=== PATIENT | female | born 1995 | race Caucasian/White ===

== ENCOUNTER 2023-05-15 20:58 | Outpatient (REF) | payer OTHER, SELFPAY ==
[2023-05-20 11:13] LABS: Age Gdln ACOG Testing Note (.); IGP, rfx Aptima HPV ASCU Note (.)
== END 2023-05-15 20:59 | disposition home or self-care (01) ==
LOC: LAB 20:58
PROVIDERS: Visit Provider Obstetrics & Gynecology
DX: Z01.419 Encounter for gynecological examination (general) (routine) without abnormal findings (principal)
CPT/HCPCS: G0145

== ENCOUNTER 2023-05-30 09:55 | Outpatient (OUT) | payer OTHER, SELFPAY ==
--- NOTE | 2023-05-30 | US_ITS ---
[address] [address] Patient Name: RIRI DEMPSEY MRN: [id number] date: 1995 Sex: F Assigned Patient Location: [facility] Current Patient Location: [facility] Accession/Order Number: [id number] Exam Date: 05/30/2023 10:05 Report Date: 05/30/2023 11:55 At the request of: YANI CALIX Procedure: US OB transvaginal EXAMINATION: US OB transvaginal HISTORY: MISSED MENSES. VIABILITY DATING COMPARISON: No relevant comparison available. FINDINGS: Twin intrauterine gestation. Dichorionic diamniotic favored The uterus is normal The right ovary is not visualized The left ovary measures 3.8 x 3.5 x 1.8 cm. The cervix is closed measuring 3.6 cm. Clinical age: 7 weeks 6 days Clinical JOSI: 01/10/2024 Fetus A: Gestational sac: 2.21 cm, 6 weeks 6 days CRL: 1.03 cm, 7 weeks 1 day Yolk sac: 2.4 mm Heart rate: 144 bpm Ultrasound age: 7 weeks 1 day Ultrasound JOSI: 01/15/2024 Fetus B: CRL: 1. 1 5, 7 weeks 2 days Yolk sac: 1.5 mm Heart rate: 151 bpm Ultrasound age: 7 weeks 6 day Ultrasound JOSI: 01/14/2024 US/US OB transvaginal IMPRESSION: Twin intrauterine gestation as detailed above Electronically authenticated by: ZAYRA ORTIZ Date: 05/30/2023 11:55
--- OUTSIDE RECORDS SUMMARY | 2023-05-30 10:00 | XMS_ITS | CCD ---
Author Name Unknown Address [address] [place] [address] Organization [facility] Care Team Providers Care Insurance Checker Name Role Phone GAYE JOSUE Unavailable Unavailable GAYE JOSUE Unavailable Unavailable Unavailable Unavailable Unavailable HoneyAicha fabian Maryjo Unavailable Unavailable Honey [place] Maryjo Unavailable Unavailable Unavailable Primary Care Provider UnavailJuanito Rodriges Primary Care Provider JAMES HERNANDEZJETH RATCONRADARAJAIAChristin Attending U navailable SRINGERI, VIJETH RATHNARAJAIAH Primary Care U navailable Sringeri, Vijeth Rathnarajaiah Primary Care Prov ider Radha Carney Unavailable Perla Rm Primary Care Provider [phone] SRINGDARNELL, VIJETH RATHNARAJAIAH Primary Care U navailable MANSI DE JESUSI LEIGH Referring Unavailable MANSI DE JESUSI LEIGH Admitting Unavailable SRINGERI, VIJETH RATHNARAJAIAH Primary Care U navailable LIZA, OLIVER LEIGH Admitting Unavailable SRINGERI, VIJETH RATHNARAJAIAH Primary Care U navailable LIZA, OLIVER LEIGH Referring Unavailable SRINGERI, VIJETH RATHNARAJAIAH Primary Care U navailable BEA JACOBS Referring Unavailable PERLA RM Primary Care Unavailable ZEINAB MIRAMONTES Attending Unavailable ZEINAB MIRAMONTES Admitting Unavailable Unavailable Primary Care Provider UnavailGaye Carrasquillo APRN, CNP Primary Care Provider RENE BEGUM Attending Unavail able DELANY, GAYE M Primary Care Unavailable DELANY, GAYE Primary Care Unavailable STEFANIA, MARY HUSSEIN Attending U navailable STEFANIA, MARY HUSSEIN Admitting U navailable DELANY, GAYE M Primary Care Unavailable DANA RIVER JR. Attending Unav ailable DELANY, GAYE M Primary Care Unavailable DELANY, GAYE Primary Care Unavailable PERNELL SCRUGGS Attending UnavailDAVID Noyola Referring Unavailable LAUREENANY, GAYE Primary Care Unavailable Delany ZOOGLER - DIRECTOR OF TEACHER EDUCATION, Gaye Primary Care Provider Delany ZOOGLER - DIRECTOR OF TEACHER EDUCATION, Gaye Primary Care Provider MISC, DR AKINS Primary Care Unavailable YOGI, DR LOMELI Admitting Unavailable YOGI, DR LOMELI Attending Unavailable KARASIK, DR ACHARYA Consulting Unavailable KARASIK, DR ACHARYA Admitting Unavailable KARASIK, DR ACHARYA Attending Unavailable MISC, DR AKINS Primary Care Unavailable YOGI, DR LOMELI Consulting Unavailable ZIEBER, DR MARY Woodall Consulting Unavailable KARASIK, DR ACHARYA Consulting Unavailable KARASIK, DR ACHARYA Admitting Unavailable KARASIK, DR ACHARYA Attending Unavailable MISC, DR AKINS Primary Care Unavailable YOGI, DR LOMELI Consulting Unavailable ZIEBER, DR MARY Woodall Consulting Unavailable MISC, DR AKINS Primary Care Unavailable YOGI, DR LOMELI Admitting Unavailable YOGI, DR LOMELI Attending Unavailable YOGI, DR LOMELI Attending Unavailable YOGI, DR LOMELI Admitting Unavailable MISC, DR AKINS Primary Care Unavailable KARASIK, DR ACHARYA Attending Unavailable KARASIK, DR ACHARYA Consulting Unavailable KARASIK, DR ACHARYA Admitting Unavailable MISC, DR AKINS Primary Care Unavailable YOGI, DR LOMELI Consulting Unavailable ZIEBER, DR MARY Woodall Consulting Unavailable MISC, DR AKINS Primary Care Unavailable YOGI, DR LOMELI Admitting Unavailable YOGI, DR LOMELI Attending Unavailable YOGI, DR LOMELI Attending Unavailable YOGI, DR LOMELI Consulting Unavailable MISC, DR AKINS Primary Care Unavailable YOGI, DR LOMELI Admitting Unavailable KARASIK, DR ACHARYA Consulting Unavailable KARASIK, DR ACHARYA Admitting Unavailable KARASIK, DR ACHARYA Attending Unavailable MISC, DR AKINS Primary Care Unavailable KARASIK, DR ACHARYA Consulting Unavailable KARASIK, DR ACHARYA Admitting Unavailable KARASIK, DR ACHARYA Attending Unavailable MISC, DR AKINS Primary Care Unavailable YOGI, DR LOMELI Attending Unavailable MISC, DR AKINS Primary Care Unavailable CHARISMA, TEJAS Consulting Unavailable YOGI, DR LOMELI Admitting Unavailable YOGI, DR LOMELI Admitting Unavailable WEST, DR ZAYRA Monique Consulting Unavailable YOGI, DR LOMELI Attending Unavailable MISC, DR AKINS Primary Care Unavailable YOGI, DR LOMELI Consulting Unavailable YOGI, DR LOMELI Attending Unavailable KARASIK, DR ACHARYA Consulting Unavailable MISC, DR AKINS Primary Care Unavailable YOGI, DR LOMELI Admitting Unavailable KARASIK, DR ACHARYA Consulting Unavailable KARASIK, DR ACHARYA Admitting Unavailable KARASIK, DR ACHARYA Attending Unavailable MISC, DR AKINS Primary Care Unavailable WEST, DR ZAYRA Monique Consulting Unavailable YOGI, DR LOMELI Consulting Unavailable YOGI, DR LOMELI Consulting Unavailable YOGI, DR LOMELI Attending Unavailable YOGI, DR LOMELI Admitting Unavailable MISC, DR AKINS Primary Care Unavailable YOGI, DR LOMELI Attending Unavailable YOGI, DR LOMELI Consulting Unavailable MISC, DR AKINS Primary Care Unavailable YOGI, DR LOMELI Admitting Unavailable MISC, DR AKINS Primary Care Unavailable YOGI, DR LOMELI Admitting Unavailable YOGI, DR LOMELI Attending Unavailable MISC, DR AKINS Primary Care Unavailable YOGI, DR LOMELI Admitting Unavailable YOGI, DR LOMELI Attending Unavailable YOGI, DR LOMELI Admitting Unavailable YOGI, DR LOMELI Attending Unavailable MISC, DR AKINS Primary Care Unavailable YOGI, DR LOMELI Admitting Unavailable YOGI, DR LOMELI Attending Unavailable YOGI, DR LOMELI Consulting Unavailable MISC, DR AKINS Primary Care Unavailable YOGI, DR LOMELI Procedure Practitioner Unavailab le YOGI, DR LOMELI Consulting Unavailable YOGI, DR LOMELI Attending Unavailable YOGI, DR LOMELI Admitting Unavailable MISC, DR AKINS Primary Care Unavailable KARASIK, DR ACHARYA Consulting Unavailable KARASIK, DR ACHARYA Admitting Unavailable KARASIK, DR ACHARYA Attending Unavailable MISC, DR AKINS Primary Care Unavailable YOGI, DR LOMELI Attending Unavailable WEST, DR ZAYRA Monique Consulting Unavailable MISC, DR AKINS Primary Care Unavailable YOGI, DR LOMELI Admitting Unavailable DR YANI CALIX Consulting Unavailable Liat ZOOGLER - DIRECTOR OF TEACHER EDUCATION, Gaye Primary Care Provider GAYE JOSUE Primary Care Physician Graham Choe Attending Unavailable GAYE JOSUE Primary Care Unavailable Liat ZOOGLER - DIRECTOR OF TEACHER EDUCATION, Gaye Primary Care Provider GAYE JOSUE Primary Care Unavailable HOANG SANTOS Attending Unavailable MATTHEW TAFOYA Attending Unavailable GAYE JOSUE Primary Care Unavailable BEA JACOBS Attending Unavailable GAYE JOSUE Primary Care Unavailable BEA JACOBS Attending Unavailable GAYE JOSUE Primary Care Unavailable GAYE JOSUE Referring Unavailable GAYE JOSUE Primary Care Unavailable GAYE JOSUE Primary Care Unavailable LELE VELASQUEZ Attending Unavailable YANI CALIX Attending Unavailable Redd Velazquez Attending Unavailab Redd Higginbotham Admitting Unavailab le NO FAMILY, PHYSICIAN Primary Care Unavailable Allergies Allergy Classification Reported Allergen(s) Allergy Type Date of Onset Reaction(s) Facility (1 source) No Known Medication Allergies; Translations: [No Known Medication Allergies] Propensity to adverse reactions (disorder) [facility] Repository Medications Current Medications Medication Drug Class(es) Dates Sig (Normalized) Sig (Original) 200 actuat albuterol 0.09 mg/actuat metered dose inhaler (6 sources) beta2-Adrenergic Agonist Start: 06-15-2020 take 2 puff(s) by inhalation four times daily as needed for wheezing albuterol sulfate HFA (VENTOLIN HFA) 108 (90 Base) MCG/ACT inhaler Inhale 2 puffs into the lungs 4 times daily as needed for Wheezing 1 Inhaler 1 06/15/2020 Active Start: 10-22-2019 take 2 puff(s) by in halation four times daily as needed for wheezing, then take 2-4 puff(s) by inhalation every six hours as needed for wheezing albuterol sulfate HFA (VENTOLIN HFA) 108 (90 Base) MCG/ACT inhaler Inhale 2 puffs into the lungs 4 times daily as needed for Wheezing or Shortness of Breath Recommend 2-4 puffs every 6 hrs as needed with SPACER 1 Inhaler 1 10/22/2019 Active Start: 12-05-2018 End: 01-04-2020 take 4 mg by mouth every twelve hours albuterol (VOSPIRE ER) 4 MG 12 hr tablet Take 1 (one) tablet (4 mg total) by mouth every 12 (twelve) hours for 14 days . 14 tablet 0 12/05/2018 01/04/2020 Discontinued (Therapy completed) albuterol sulfate HFA 108 (90 Base) MCG/ACT inhaler 2 puff (1 source) Start: 10-22-2019 albuterol sulfate HFA 108 (90 Base) MCG/ACT inhaler 2 puff brexpiprazole 0.5 mg oral tablet (2 sources) Atypical Antipsychotic take 1 tablet by mouth once daily brexpiprazole (REXULTI) 0.5 MG TABS tablet Take 1 tablet by mouth daily 0 Active 24 hr buPROPion hydrochloride 150 mg extended release oral tablet (8 sources) Aminoketone take 1 tablet by mouth once daily in the morning buPROPion (WELLBUTRIN XL) 150 MG extended release tablet Take 1 tablet by mouth every morning 0 Active cephalexin 500 mg oral capsule (1 source) Cephalosporin Antibacterial Start: 12-23-2019 take 1 capsule by mouth three times daily cephALEXin (KEFLEX) 500 MG capsule Take 1 capsule by mouth 3 times daily 21 capsule 0 12/23/2019 Active cyclobenzaprine hydrochloride 10 mg oral tablet (2 sources) Muscle Relaxant Start: 03-13-2022 End: 03-23-2022 take 1 tablet by mouth three times daily as needed for muscle spasms cyclobenzaprine (FLEXERIL) 10 MG tablet Take 1 tablet by mouth 3 times daily as needed for Muscle spasms 15 tablet 0 03/13/2022 03/23/2022 Active diphenhydrAMINE hydrochloride 25 mg oral tablet (4 sources) Histamine-1 Receptor Antagonist End: 11-29-2021 take 1 tablet by mouth once daily as needed diphenhydrAMINE (BENADRYL) 25 MG tablet Take 1 tablet by mouth nightly as needed for Itching 0 Active escitalopram 20 mg oral tablet (2 sources) Serotonin Reuptake Inhibitor Start: 01-18-2020 take 1 tablet by mouth once daily escitalopram (LEXAPRO) 20 MG tablet Take 1 tablet by mouth daily 30 tablet 1 01/18/2020 Active Start: 01-04-2020 End: 01-03-2021 take 1 tablet by mouth once daily escitalopram oxalate (LEXAPRO) 10 MG tablet Indications: Anxious depression Take 1 (one) tablet (10 mg total) by mouth daily . 30 tablet 11 01/04/2020 01/03/2021 Active fluconazole 150 mg oral tablet (2 sources) Azole Antifungal Start: 12-19-2022 End: 12-19-2022 take 1 tablet by mouth once fluconazole (DIFLUCAN) 150 MG tablet Take 1 tablet by mouth once for 1 dose 1 tablet 0 12/19/2022 12/19/2022 Active Start: 12-19-2022 End: 12-19-2022 fluconazole (DIFLUCAN) table t 200 mg 60 actuat formoterol fumarate 0.005 mg/actuat / mometasone furoate 0.1 mg/actuat metered dose inhaler (1 source) Corticosteroid, beta2-Adrenergic Agonist Start: 01-18-2020 take 2 puff(s) by inhalation twice daily mometasone-formoterol (DULERA) 100-5 MCG/ACT inhaler Inhale 2 puffs into the lungs 2 times daily 1 Inhaler 0 01/18/2020 Active hydrOXYzine pamoate 25 mg oral capsule (1 source) Antihistamine take 1 capsule by mouth four times daily as needed hydrOXYzine (VISTARIL) 25 MG capsule Take 25 mg by mouth 4 times daily as needed for Itching 0 Active ibuprofen 600 mg oral tablet (3 sources) Nonsteroidal Anti-inflammatory Drug Start: 03-13-2022 take 1 tablet by mouth every six hours as needed for pain ibuprofen (IBU) 600 MG tablet Take 1 tablet by mouth every 6 hours as needed for Pain 120 tablet 0 03/13/2022 Active lamoTRIgine 50 mg oral tablet (3 sources) Mood Stabilizer, Anti-epileptic Agent take 50 mg by mouth once daily lamoTRIgine (LAMICTAL PO) Take 50 mg by mouth daily 0 Active 2 ml ondansetron 2 mg/ml injection (8 sources) Serotonin-3 Receptor Antagonist Start: 06-16-2022 End: 06-16-2022 ondansetron (ZOFRAN) injection 4 mg Start: 04-12-2022 take 1 tablet by mark th every eight hours as needed for nausea ondansetron (ZOFRAN) 4 MG tablet Take 1 tablet by mouth every 8 hours as needed for Nausea or Vomiting 12 tablet 0 04/12/2022 Active Start: 03-31-2022 End: 11-29-2021 take 1 tablet by mouth every eight hours as needed for nausea ondansetron (ZOFRAN) 4 MG tablet Take 4 mg by mouth every 8 hours as needed for Nausea or Vomiting 0 03/31/2022 11/29/2021 Discontinued (LIST CLEANUP) Start: 12-10-2020 End: 12-10-2020 ondansetron (ZOFRAN-ODT) disintegrating tablet 4 mg Start: 12-10-2020 End: 12-10-2020 ondansetron (ZOFRAN) injecti on 4 mg Start: 12-10-2020 End: 02-10-2021 take 1 tablet by mouth every four to six hours as needed for nausea ondansetron (ZOFRAN ODT) 4 MG disintegrating tablet Take 1 tablet by mouth every 4-6 hours as needed for Nausea or Vomiting 15 tablet 0 12/10/2020 02/10/2021 Discontinued (LIST CLEANUP) predniSONE 20 mg oral tablet (3 sources) Start: 03-13-2022 End: 03-17-2022 take 3 tablets by mouth once daily predniSONE (DELTASONE) 20 MG tablet Take 3 tablets by mouth daily for 4 days First home dose 03/14/2022 12 tablet 0 03/13/2022 03/17/2022 Active Start: 12-23-2019 End: 12-28-2019 take 2 tablets by mouth once daily predniSONE (DELTASONE) 20 MG tablet Take 2 tablets by mouth daily for 5 doses 10 tablet 0 12/23/2019 12/28/2019 Active Start: 10-22-2019 End: 10-27-2019 take 2 tablets by mouth once daily predniSONE (DELTASONE) 20 MG tablet Take 2 tablets by mouth daily for 5 days 10 tablet 0 10/22/2019 10/27/2019 Active propranolol hydrochloride 20 mg oral tablet (1 source) beta-Adrenergic Shai Start: 05-22-2020 take 1 tablet by mouth three times daily as needed propranolol (INDERAL) 20 MG tablet Take 1 tablet by mouth 3 times daily as needed (palpitations) 30 tablet 2 05/22/2020 Active sertraline 100 mg oral tablet (8 sources) Serotonin Reuptake Inhibitor take 2 tablets by mouth once daily sertraline (ZOLOFT) 100 MG tablet Take 2 tablets by mouth daily 0 Active take 1 tablet by mouth once oseas y sertraline (ZOLOFT) 100 MG tablet Take 100 mg by mouth daily 0 Active take 1 tablet by mouth once oseas y sertraline (ZOLOFT) 50 MG tablet Take 50 mg by mouth daily 0 Active 50 ml sodium chloride 9 mg/m l injection (3 sources) Start: 06-16-2022 End: 06-16-2022 0.9 % sodium chloride bolus Start: 04-12-2021 End: 04-12-2021 0.9 % sodium chloride bolus Start: 12-10-2020 End: 12-10-2020 0.9 % sodium chloride bolus sulfamethoxazole 800 mg / trimethoprim 160 mg oral tablet (1 source) Dihydrofolate Reductase Inhibitor Antibacterial, Sulfonamide Antimicrobial Start: 12-19-2022 End: 12-29-2022 take 1 tablet by mouth twice daily sulfamethoxazole-trimethoprim (BACTRIM DS) 800-160 MG per tablet Take 1 tablet by mouth 2 times daily for 10 days 20 tablet 0 12/19/2022 12/29/2022 Active 24 hr venlafaxine 150 mg extended release oral capsule (2 sources) Serotonin and Norepinephrine Reuptake Inhibitor Start: 08-08-2020 End: 12-10-2020 Effexor XR 150 mg Cap-ER Refills(s) 0 Start Date: 08/08/20 Status: Ordered Completed/Discontinued Medications Medication Drug Class(es) Dates Sig (Normalized) Sig (Original) acetaminophen 500 mg oral tablet (5 sources) Start: 12-19-2022 End: 12-19-2022 acetaminophen (TYLENOL) tablet 1,000 mg Start: 03-31-2021 take 1 tablet by mark th every six hours as needed for pain acetaminophen (TYLENOL) 500 MG tablet Take 500 mg by mouth every 6 hours as needed for Pain 0 03/31/2021 Active albuterol 0.833 mg/ml / ipratropium bromide 0.167 mg/ml inhalant solution (1 source) Anticholinergic, beta2-Adrenergic Agonist Start: 04-06-2019 End: 04-06-2019 ipratropium-albuterol (DUONEB) nebulizer solution 1 ampule Start: 04-06-2019 End: 04-06-2019 ipratropium-albuterol (DUONE B) nebulizer solution 1 ampule ARIPiprazole 10 mg oral tablet (1 source) Atypical Antipsychotic End: 08-01-2020 take 1 tablet by mouth once daily ARIPiprazole (ABILIFY) 10 MG tablet Take 10 mg by mouth daily 0 08/01/2020 Discontinued (LIST CLEANUP) clonazePAM 0.5 mg oral tablet (10 sources) Benzodiazepine Start: 06-16-2020 End: 08-01-2020 take 0.5 tablet by mouth once daily as needed for anxiety clonazePAM (KLONOPIN) 0.5 MG tablet Indications: Anxiety Take 0.5 tablets by mouth daily as needed for Anxiety for up to 10 days. 5 tablet 0 06/16/2020 08/01/2020 Discontinued (LIST CLEANUP) Start: 01-18-2020 End: 02-01-2020 take 1 tablet by mouth once daily clonazePAM (KLONOPIN) 0.5 MG tablet Indications: Acute anxiety Take 1 tablet by mouth daily for 14 days. 14 tablet 0 01/18/2020 02/01/2020 Active take 1 tablet by mark twice daily as needed clonazePAM (KLONOPIN) 1 MG tablet Take 1 tablet by mouth 2 times daily as needed. 0 Active take 2 tablets by mo [facility] twice daily as needed clonazePAM (KLONOPIN) 1 MG tablet Take 2 mg by mouth 2 times daily as needed. 0 Active 1 ml dexamethasone phosphate 10 mg/ml injection (1 source) Corticosteroid Start: 03-13-2022 End: 03-13-2022 dexamethasone (PF) (DECADRON) injection 10 mg Start: 03-13-2022 End: 03-13-2022 dexamethasone (PF) (DECADRON ) injection 10 mg DULoxetine 60 mg delayed release oral capsule (1 source) Serotonin and Norepinephrine Reuptake Inhibitor Start: 06-30-2018 End: 01-04-2020 take 3 capsules by mouth once daily DULoxetine (CYMBALTA) 60 MG capsule Take by mouth daily . 3 06/30/2018 01/04/2020 Discontinued (Ineffective) 1 ml ketorolac tromethamine 30 mg/ml cartridge (3 sources) Nonsteroidal Anti-inflammatory Drug, Cyclooxygenase Inhibitor Start: 12-19-2022 End: 12-19-2022 ketorolac (TORADOL) injection 30 mg Start: 06-16-2022 End: 06-16-2022 ketorolac (TORADOL) injectio n 30 mg Start: 03-13-2022 End: 03-13-2022 ketorolac (TORADOL) injectio n 60 mg methylPREDNISolone 125 mg injection (1 source) Corticosteroid Start: 04-06-2019 End: 04-06-2019 methylPREDNISolone sodium (SOLU-MEDROL) injection 125 mg Start: 04-06-2019 End: 04-06-2019 methylPREDNISolone sodium (S HUSEYIN-MEDROL) injection 125 mg mirtazapine 45 mg oral tablet (2 sources) End: 04-12-2021 take 1 tablet by mouth once daily mirtazapine (REMERON) 45 MG tablet Take 45 mg by mouth nightly 0 04/12/2021 Discontinued (LIST CLEANUP) omeprazole 20 mg delayed release oral capsule (3 sources) Proton Pump Inhibitor End: 04-12-2021 take 1 capsule by mouth once daily omeprazole (PRILOSEC) 20 MG delayed release capsule Take 20 mg by mouth daily 0 04/12/2021 Discontinued (LIST CLEANUP) Vit-Fe Fumarate-FA ( VITAMINS PO) (1 source) End: 11-29-2021 take 1 tablet by mouth once daily Vit-Fe Fumarate-FA ( VITAMINS PO) Take 1 tablet by mouth daily 0 11/29/2021 Discontinued (LIST CLEANUP) Pseudoephedrine-APA P-DM (DAYQUIL PO) (2 sources) End: 10-22-2019 take 1 tablet by mouth every four hours as needed Pseudoephedrine-APA P-DM (DAYQUIL PO) Take 1 tablet by mouth every 4 hours as needed 0 10/22/2019 Discontinued (Therapy completed) take 1 tablet by mark th every four hours as needed [id number] (DAYQUIL PO) Don e 1 tablet by mouth every 4 hours as needed 0 Active QUEtiapine 100 mg oral tablet (3 sources) Atypical Antipsychotic Start: 09-13-2020 End: 12-10-2020 take 1 tablet by mouth once daily QUEtiapine (SEROQUEL) 100 MG tablet TAKE 1 TABLET BY MOUTH EVERY DAY 0 09/13/2020 12/10/2020 Discontinued (Therapy completed) Start: 08-01-2020 QUEtiapine (SE ROQUEL) tablet 12.5 mg QUEtiapine (SERO QUEL XR) 50 MG extended release tablet Take 25 mg by mouth nightly 0 Active risperiDONE 0.25 mg oral tablet (1 source) Atypical Antipsychotic Start: 06-30-2018 End: 01-04-2020 take 1 tablet by mouth once daily risperiDONE (RISPERDAL) 0.25 MG tablet Take 0.25 mg by mouth nightly . 2 06/30/2018 01/04/2020 Discontinued (Ineffective) traZODone hydrochloride 50 mg oral tablet (5 sources) Serotonin Reuptake Inhibitor Start: 08-07-2020 End: 02-10-2021 take 1 tablet by mouth once daily as needed for sleep traZODone (DESYREL) 50 MG tablet Take 1 tablet by mouth nightly as needed for Sleep 30 tablet 0 08/07/2020 02/10/2021 Discontinued (LIST CLEANUP) Start: 06-15-2020 End: 08-01-2020 take 0.5 tablet by mouth once daily traZODone (DESYREL) 50 MG tablet Take 0.5 tablets by mouth nightly 15 tablet 1 06/15/2020 08/01/2020 Discontinued (LIST CLEANUP) Start: 01-04-2020 traZODone (DEVANG YREL) 50 MG tablet Take 25 mg by mouth nightly 0 01/04/2020 Active Start: 01-04-2020 End: 04-03-2020 take 1 tablet by mouth once daily as needed for sleep traZODone (DESYREL) 50 MG tablet Indications: Anxious depression Take 1 (one) tablet (50 mg total) by mouth nightly as needed for sleep . 30 tablet 2 01/04/2020 04/03/2020 Active Problems Active Problems Problem Classification Problem Date Documented Date Episodic/Chronic Abdominal pain (2 sources) Pelvic and perineal pain; Translations: [Pelvic and perineal pain] Onset: 01-20-2017 Acute bronchitis (1 source) Acute bronchitis; Translations: [Acute bronchitis, unspecified organism] Episodic Adjustment disorders (1 source) Stress and adjustment reaction; Translations: [Reaction to severe stress, unspecified] Onset: 12-06-2022 Chronic Anxiety disorders (20 sources) Mixed anxiety and depressive disorder; Translations: [Anxiety] Onset: 01-04-2020 01-04-2020 Chronic Cardiac dysrhythmias (1 source) Palpitations; Translations: [Palpitations] Episodic Chronic obstructive pulmonary disease and bronchiectasis (2 sources) Bronchitis; Translations: [Bronchitis] Episodic Disorders of lipid metabolism (2 sources) Hyperlipidemia, unspecified; Translations: [Hyperlipidemia, unspecified] Onset: 02-13-2023 Chronic Essential hypertension (2 sources) Essential (primary) hypertension; Translations: [Essential (primary) hypertension] Onset: 02-13-2023 Chronic Fluid and electrolyte disorders (1 source) Dehydration; Translations: [Dehydration] Episodic Headache; including migraine (1 source) Headache; Translations: [Intractable headache, unspecified chronicity pattern, unspecified headache type] Episodic Headache; including migraine (1 source) Headache; including migraine; Translations: [Headache, unspecified] Onset: 06-16-2022 Hemorrhage during ; abruptio placenta; placenta previa (1 source) Threatened miscarriage in first trimester; Translations: [Threatened ] Episodic Inflammation; infection of eye (except that caused by tuberculosis or sexually transmitteddisease) (1 source) Hordeolum externum of lower eyelid of right eye; Translations: [Hordeolum externum right lower eyelid] Episodic Malaise and fatigue (2 sources) Fatigue; Translations: [Fatigue, unspecified type] Onset: 01-04-2020 01-04-2020 Episodic Mood disorders (20 sources) Depressive disorder; Translations: [Major depressive disorder, single episode, unspecified] Onset: 08-01-2020 08-01-2020 Chronic Mycoses (1 source) Candidiasis of vagina; Translations: [Vaginal yeast infection] Episodic Other complications of (1 source) Depressive disorder; Translations: [Other mental disorders complicating , first trimester] Episodic Other lower respiratory disease (1 source) Cough; Translations: [Cough in adult patient] Episodic Other nutritional; endocrine; and metabolic disorders (2 sources) Weight gain; Translations: [Weight gain] Onset: 01-04-2020 01-04-2020 Episodic Other nutritional; endocrine; and metabolic disorders (1 source) Other symptoms and signs concerning food and fluid intake; Translations: [Other symptoms concerning nutrition, metabolism, and development] Episodic Other upper respiratory infections (1 source) Acute sinusitis; Translations: [Acute sinusitis, recurrence not specified, unspecified location] Episodic Personality disorders (9 sources) Borderline personality disorder; Translations: [Borderline personality disorder] Onset: 08-02-2020 08-02-2020 Chronic Residual codes; unclassified (1 source) Tobacco user; Translations: [Tobacco abuse] Chronic Substance-related disorders (4 sources) Smoker; Translations: [Nicotine dependence, cigarettes, uncomplicated] Onset: 01-04-2020 01-04-2020 Chronic Comment on above: Added secondary to d ocumentation in Social History. Suicide and intentional self-inflicted injury (1 source) Suicidal thoughts; Translations: [Suicidal thoughts] Episodic Thyroid disorders (2 sources) Hypothyroidism, unspecified; Translations: [Hypothyroidism, unspecified] Onset: 02-13-2023 Chronic Unclassified (3 sources) Patient encounter status; Translations: [Encounter for laboratory testing for COVID-19 virus] Onset: 01-04-2020 01-04-2020 Unclassified (1 source) CONTACT W/AND (SUSP) EXPOS COVID-19; Translations: [CONTACT W/AND (SUSP) EXPOS COVID-19] Onset: 10-09-2021 Unclassified (1 source) Acute candidiasis of vulva and vagina; Translations: [Acute candidiasis of vulva and vagina] Onset: 12-19-2022 Viral infection (1 source) Disease caused by 2019-nCoV; Translations: [COVID-19] Episodic Past or Other Problems Problem Classification Problem Date Documented Da te Episodic/Chronic Abdominal pain (1 source) Unspecified abdominal pain; Translations: [UNSPECIFIED ABDOMINAL PAIN] Onset: 10-08-2021 Episodic Administrative/social admission (1 source) Person with feared health complaint in whom no diagnosis is made; Translations: [Person with feared health complaint in whom no diagnosis is made] Onset: 12-22-2022 Episodic Diabetes or abnormal glucose tolerance complicating ; childbirth; or the puerperium (15 sources) Gestational diabetes mellitus in childbirth, insulin controlled; Translations: [Gestational diabetes mellitus in , diet controlled] Onset: 09-08-2021 Episodic Genitourinary symptoms and ill-defined conditions (2 sources) Personal history of urinary (tract) infections; Translations: [PERS HX URINARY TRACT INFECTIONS] Onset: 10-09-2021 Episodic Immunizations and screening for infectious disease (5 sources) Contact with and (suspected) exposure to other viral communicable diseases; Translations: [Encounter for screening for infections with a predominantly sexual mode of transmission] Onset: 06-18-2021 Episodic Nausea and vomiting (3 sources) Nausea, vomiting and diarrhea; Translations: [Nausea with vomiting, unspecified] Onset: 06-16-2022 Episodic OB-related trauma to perineum and vulva (1 source) Second degree perineal laceration during delivery; Translations: [SECOND DEG PERINEAL LAC DUR DELIV] Onset: 10-09-2021 Episodic Other complications of ; puerperium affecting management of mother (1 source) Other mental disorders complicating childbirth; Translations: [OTH MENTAL D/O COMP CHILDBIRTH] Onset: 10-09-2021 Episodic Other complications of ; puerperium affecting management of mother (1 source) Streptococcus B carrier state complicating childbirth; Translations: [STREP B CHRISTINE STATE COMP CHILDBIRTH] Onset: 10-09-2021 Episodic Other complications of ; puerperium affecting management of mother (1 source) Smoking (tobacco) complicating childbirth; Translations: [SMOKING TOBACCO COMP CHILDBIRTH] Onset: 10-09-2021 Episodic Other complications of (1 source) Smoking (tobacco) complicating , third trimester; Translations: [SMOKING TOBACCO COMP PREG 3RD TRI] Onset: 10-08-2021 Episodic Other complications of (4 sources) Other specified related conditions, third trimester; Translations: [OTH SPEC PREG RELATED COND 3RD TRI] Onset: 10-01-2021 Episodic Other complications of (4 sources) Supervision of high risk , unspecified, unspecified trimester; Translations: [SUP HIGH RISK UNS UNS TRI] Onset: 07-17-2021 Episodic Other female genital disorders (1 source) Other specified noninflammatory disorders of vagina; Translations: [OTH SPEC NONINFLAMMATORY D/O VAGINA] Onset: 06-21-2021 Episodic Other gastrointestinal disorders (1 source) Diarrhea, unspecified; Translations: [Diarrhea, unspecified] Onset: 04-12-2022 Episodic Other infections; including parasitic (9 sources) Personal history of other infectious and parasitic diseases; Translations: [History of 2019 novel coronavirus disease (COVID-19)] Onset: 01-20-2020 01-20-2020 Episodic Other and delivery including normal (2 sources) Second trimester ; Translations: [Encounter for supervision of normal , unspecified, second trimester] Onset: 10-09-2021 Episodic Other screening for suspected conditions (not mental disorders or infectious disease) (6 sources) Encounter for screening for Streptococcus B; Translations: [Encounter for screening for diabetes mellitus] Onset: 07-18-2021 Episodic Residual codes; unclassified (1 source) 37 weeks gestation of ; Translations: [37 WEEKS GESTATION OF ] Onset: 10-09-2021 Episodic Residual codes; unclassified (1 source) 36 weeks gestation of ; Translations: [36 WEEKS GESTATION OF ] Onset: 10-08-2021 Episodic Residual codes; unclassified (1 source) 35 weeks gestation of ; Translations: [35 WEEKS GESTATION OF ] Onset: 09-27-2021 Episodic Residual codes; unclassified (1 source) 34 weeks gestation of ; Translations: [34 WEEKS GESTATION OF ] Onset: 09-19-2021 Episodic Residual codes; unclassified (1 source) 33 weeks gestation of ; Translations: [33 WEEKS GESTATION OF ] Onset: 09-12-2021 Episodic Residual codes; unclassified (1 source) 32 weeks gestation of ; Translations: [32 WEEKS GESTATION OF ] Onset: 09-03-2021 Episodic Residual codes; unclassified (1 source) 31 weeks gestation of ; Translations: [31 WEEKS GESTATION OF ] Onset: 08-28-2021 Episodic Spondylosis; intervertebral disc disorders; other back problems (3 sources) Acute low back pain; Translations: [Acute midline low back pain without sciatica] Onset: 12-22-2022 Episodic Urinary tract infections (2 sources) Acute cystitis; Translations: [Acute cystitis without hematuria] Onset: 12-19-2022 Episodic Results Test Name Value Interpretation Reference Range Facility CBC with Diffon 02-13-2023 Abs. Basophil 0.01 k/uL Normal 0.00-0.20 [facility] Comment on above: Performed By: #### L IPR, T4, GLYHGB, T3 #### [facility] [employer] [address] [place] [address] Business Programmer: Antoine Wilson MD #### CP, TSH, CDP, ZFAST #### [facility] [address] [place] [phone] Business Programmer: Zayra Chapman MD Abs.Imm.Granulocyte 0.02 k/uL Normal 0.00-0.30 [facility] Comment on above: Performed By: #### L IPR, T4, GLYHGB, T3 #### [address] [phone] Business Programmer: Antoine Wilson MD #### CP, TSH, CDP, ZFAST #### [facility] [address] [place] [phone] Business Programmer: Zayra Chapman MD Abs.Neutrophil (Seg) 4.27 k/uL Normal 2.5-7.0 [facility] Comment on above: Performed By: #### L IPR, T4, GLYHGB, T3 #### [address] [phone] Business Programmer: Antoine Wilson MD #### CP, TSH, CDP, ZFAST #### [facility] [address] [place] [address] Business Programmer: Zayra Chapman MD Basophils/100 WBC (Bld) 0 % Normal 0-2 M [facility] Comment on above: Performed By: #### L IPR, T4, GLYHGB, T3 #### [address] [phone] Business Programmer: Antoine Wilson MD #### CP, TSH, CDP, ZFAST #### [facility] [address] [place] [address] Business Programmer: Zayra Chapman MD Eosinophils (Bld) [#/Vol] 0.07 10*3/uL Normal 0.00-0.40 [facility] Comment on above: Performed By: #### L IPR, T4, GLYHGB, T3 #### [address] [phone] Business Programmer: Antoine Wilson MD #### CP, TSH, CDP, ZFAST #### [facility] [address] [place], [place] [phone] Business Programmer: Zayra Chapman MD Eosinophils/100 WBC (Bld) 1 % Normal 0-5 [facility] Comment on above: Performed By: #### L IPR, T4, GLYHGB, T3 #### [address] [phone] Business Programmer: Antoine Wilson MD #### CP, TSH, CDP, ZFAST #### [facility] [address] [place] [address] Business Programmer: Zayra Chapman MD Erythrocyte distribution width (RBC) [Ratio] 13.2 % Normal 12.1-15.2 [facility] Comment on above: Performed By: #### L IPR, T4, GLYHGB, T3 #### [place] [phone] Business Programmer: Antoine Wilson MD #### CP, TSH, CDP, ZFAST #### [facility] [address] [place] [phone] Business Programmer: Zayra Chapman MD Hematocrit (Bld) [Volume fraction] 41.9 % Normal 36.0-46.0 [facility] Comment on above: Performed By: #### L IPR, T4, GLYHGB, T3 #### [place] [phone] Business Programmer: Antoine Wilson MD #### CP, TSH, CDP, ZFAST #### [facility] [address] [place] [phone] Business Programmer: Zayra Chapman MD Hemoglobin (Bld) [Mass/Vol] 13.5 g/dL Normal 12.0-16.0 [facility] Comment on above: Performed By: #### L IPR, T4, GLYHGB, T3 #### [address] [place] [address] Business Programmer: Antoine Wilson MD #### CP, TSH, CDP, ZFAST #### [facility] [address] [place], [place] [phone] Business Programmer: Zayra Chapman MD Immature granulocytes/100 WBC (Bld) 0 % Normal 0-5 [facility] Comment on above: Performed By: #### L IPR, T4, GLYHGB, T3 #### [place] [address] [place] [address] Business Programmer: Antoine Wilson MD #### CP, TSH, CDP, ZFAST #### [facility] [address] [place], [place] [phone] Business Programmer: Zayra Chapman MD Lymphocytes (Bld) [#/Vol] 1.14 10*3/uL Normal 1.00-4.80 [facility] Comment on above: Performed By: #### L IPR, T4, GLYHGB, T3 #### [address] [address] Business Programmer: Antoine Wilson MD #### CP, TSH, CDP, ZFAST #### [facility] [address] [place], [place] [phone] Business Programmer: Zayra Chapman MD Lymphocytes/100 WBC (Bld) 20 % Normal 15-40 [facility] Comment on above: Performed By: #### L IPR, T4, GLYHGB, T3 #### [address] [phone] Business Programmer: Antoine Wilson MD #### CP, TSH, CDP, ZFAST #### [facility] [address] [place], [place] [phone] Business Programmer: Zayra Chapman MD MCH (RBC) [Entitic mass] 26.6 pg Normal 26.0-34.0 [facility] Comment on above: Performed By: #### L IPR, T4, GLYHGB, T3 #### [address] [address] Business Programmer: Antoine Wilson MD #### CP, TSH, CDP, ZFAST #### [facility] [address] [place] [phone] Business Programmer: Zayra Chapman MD MCHC (RBC) [Mass/Vol] 32.2 g/dL Normal 31.0-37.0 [facility] Comment on above: Performed By: #### L IPR, T4, GLYHGB, T3 #### [place] [address] Business Programmer: Antoine Wilson MD #### CP, TSH, CDP, ZFAST #### [facility] [address] [place] [address] Business Programmer: Zayra Chapman MD MCV (RBC) [Entitic vol] 82.6 fL Normal 80.0-100.0 M [facility] Comment on above: Performed By: #### L IPR, T4, GLYHGB, T3 #### [place] [address] Business Programmer: Antoine Wilson MD #### CP, TSH, CDP, ZFAST #### [facility] [address] [place] [address] Business Programmer: Zayra Chapman MD Monocytes (Bld) [#/Vol] 0.30 10*3/uL Normal 0.00-1.00 [facility] Comment on above: Performed By: #### L IPR, T4, GLYHGB, T3 #### [place] [address] Business Programmer: Antoine Wilson MD #### CP, TSH, CDP, ZFAST #### [facility] [address] [place], [place] [phone] Business Programmer: Zayra Chapman MD Monocytes/100 WBC (Bld) 5 % Normal 4-8 M [facility] Comment on above: Performed By: #### L IPR, T4, GLYHGB, T3 #### [address] [phone] Business Programmer: Antoine Wilson MD #### CP, TSH, CDP, ZFAST #### [facility] [address] [place], [place] [phone] Business Programmer: Zayra Chapman MD Neutrophil (Seg) 74 % Normal 47-75 [facility] Comment on above: Performed By: #### L IPR, T4, GLYHGB, T3 #### [address] [phone] Business Programmer: Antoine Wilson MD #### CP, TSH, CDP, ZFAST #### [facility] [address] [place], [place] [phone] Business Programmer: Zayra Chapman MD Platelet mean volume (Bld) [Entitic vol] 11.0 fL Normal 6.0-12.0 [facility] Comment on above: Performed By: #### L IPR, T4, GLYHGB, T3 #### [address] [phone] Business Programmer: Antoine Wilson MD #### CP, TSH, CDP, ZFAST #### [facility] [address] [place], [place] [phone] Business Programmer: Zayra Chapman MD Platelets (Bld) [#/Vol] 206 10*3/uL Normal 140-450 [facility] Comment on above: Performed By: #### L IPR, T4, GLYHGB, T3 #### [address] [phone] Business Programmer: Antoine Wilson MD #### CP, TSH, CDP, ZFAST #### [facility] [address] [place], [place] [phone] Business Programmer: Zayra Chapman MD RBC (Bld) [#/Vol] 5.07 10*6/uL Normal 4.00-5.20 [facility] Comment on above: Performed By: #### L IPR, T4, GLYHGB, T3 #### [address] [address] Business Programmer: Antoine Wilson MD #### CP, TSH, CDP, ZFAST #### [facility] [address] [place], [place] [phone] Business Programmer: Zayra Chapman MD WBC (Bld) [#/Vol] 5.8 10*3/uL Normal 3.5-11.0 [facility] Comment on above: Performed By: #### L IPR, T4, GLYHGB, T3 #### [address] [address] Business Programmer: Antoine Wilson MD #### CP, TSH, CDP, ZFAST #### [facility] [address] [place], [place] [phone] Business Programmer: Zayra Chapman MD Comp Metabolic Profon 2022 Albumin [Mass/Vol] 4.3 g/dL Normal 3.5-5.2 [facility] Comment on above: Performed By: #### L IPR, T4, GLYHGB, T3 #### [address] [address] Business Programmer: Antoine Wilson MD #### CP, TSH, CDP, ZFAST #### [facility] [address] [place], [place] [phone] Business Programmer: Zayra Chapman MD Alkaline Phos 127 U/L High 35-104 [facility] Comment on above: Performed By: #### L IPR, T4, GLYHGB, T3 #### [facility] [address] [place] [address] Business Programmer: Antoine Wilson MD #### CP, TSH, CDP, ZFAST #### [facility] [address] [place] [address] Business Programmer: Zayra Chapman MD ALT [Catalytic activity/Vol] 51 U/L High 5-33 [facility] Comment on above: Performed By: #### L IPR, T4, GLYHGB, T3 #### [address] [address] Business Programmer: Antoine Wilson MD #### CP, TSH, CDP, ZFAST #### [facility] [address] [place], [place] [phone] Business Programmer: Zayra Chapman MD Anion gap [Moles/Vol] 12 mmol/L Normal 9-17 [facility] Comment on above: Performed By: #### L IPR, T4, GLYHGB, T3 #### [address] [address] Business Programmer: Antoine Wilson MD #### CP, TSH, CDP, ZFAST #### [facility] [address] [place], [place] [phone] Business Programmer: Zayra Chapman MD AST [Catalytic activity/Vol] 31 U/L Normal <32 [facility] Comment on above: Performed By: #### L IPR, T4, GLYHGB, T3 #### [address] [address] Business Programmer: Antoine Wilson MD #### CP, TSH, CDP, ZFAST #### [facility] [address] [place], [place] [phone] Business Programmer: Zayra Chapman MD Bilirubin [Mass/Vol] 0.3 mg/dL Normal 0.3-1.2 [facility] Comment on above: Performed By: #### L IPR, T4, GLYHGB, T3 #### [place] [address] [place], [place] [phone] Business Programmer: Antoine Wilson MD #### CP, TSH, CDP, ZFAST #### [facility] [address] [place], [place] [phone] Business Programmer: Zayra Chapman MD BUN/CRE Ratio 16 Normal 9-20 [facility] Comment on above: Performed By: #### L IPR, T4, GLYHGB, T3 #### [address] [phone] Business Programmer: Antoine Wilson MD #### CP, TSH, CDP, ZFAST #### [facility] [address] [place], [place] [phone] Business Programmer: Zayra Chapman MD Calcium [Mass/Vol] 9.0 mg/dL Normal 8.6-10.4 [facility] Comment on above: Performed By: #### L IPR, T4, GLYHGB, T3 #### [address] [phone] Business Programmer: Antoine Wilson MD #### CP, TSH, CDP, ZFAST #### [facility] [address] [place], [place] [phone] Business Programmer: Zayra Chapman MD Chloride [Moles/Vol] 100 mmol/L Normal 98-107 [facility] Comment on above: Performed By: #### L IPR, T4, GLYHGB, T3 #### [address] [phone] Business Programmer: Antoine Wilson MD #### CP, TSH, CDP, ZFAST #### [facility] [address] [place], [place] [phone] Business Programmer: Zayra Chapman MD CO2 [Moles/Vol] 24 mmol/L Normal 20-31 [facility] Comment on above: Performed By: #### L IPR, T4, GLYHGB, T3 #### [place] [address] [place], [place] [phone] Business Programmer: Antoine Wilson MD #### CP, TSH, CDP, ZFAST #### [facility] [address] [place], [place] [phone] Business Programmer: Zayra Chapman MD Creatinine [Mass/Vol] 0.7 mg/dL Normal 0.5-0.9 [facility] Comment on above: Performed By: #### L IPR, T4, GLYHGB, T3 #### [address] [phone] Business Programmer: Antoine Wilson MD #### CP, TSH, CDP, ZFAST #### [facility] [address] [place], [place] [phone] Business Programmer: Zayra Chapman MD GFR/1.73 sq M.predicted among non-blacks MDRD (S/P/Bld) [Vol rate/Area] mL/min/{1.73_m2} Normal >60 [facility] Comment on above: Result Comment: These results are not intended for use in patients <18 years of age. eGFR results are calculated without a race factor using the 2020 CKD-EPI equation. Careful clinical correlation is recommended, particularly when comparing to results calculated using previous equations. The CKD-EPI equation is less accurate in patients with extremes of muscle mass, extra-renal metabolism of creatine, excessive creatine ingestion, or following therapy that affects renal tubular secretion. Performed By: #### L IPR, T4, GLYHGB, T3 #### [place] [address] [place], [place] [phone] Business Programmer: Antoine Wilson MD #### CP, TSH, CDP, ZFAST #### [facility] [address] [place], [place] [phone] Business Programmer: Zayra Chapman MD Glucose [Mass/Vol] 367 mg/dL High 70-99 [facility] Comment on above: Performed By: #### L IPR, T4, GLYHGB, T3 #### [address] [address] Business Programmer: Antoine Wilson MD #### CP, TSH, CDP, ZFAST #### [facility] [address] [place] [address] Business Programmer: Zayra Chapman MD Potassium [Moles/Vol] 4.3 mmol/L Normal 3.7-5.3 [facility] Comment on above: Performed By: #### L IPR, T4, GLYHGB, T3 #### [address] [address] Business Programmer: Antoine Wilson MD #### CP, TSH, CDP, ZFAST #### [facility] [address] [place], [place] [phone] Business Programmer: Zayra Chapman MD Protein [Mass/Vol] 7.0 g/dL Normal 6.4-8.3 [facility] Comment on above: Performed By: #### L IPR, T4, GLYHGB, T3 #### [address] [phone] Business Programmer: Antoine Wilson MD #### CP, TSH, CDP, ZFAST #### [facility] [address] [place] [address] Business Programmer: Zayra Chapman MD Sodium [Moles/Vol] 136 mmol/L Normal 135-144 [facility] Comment on above: Performed By: #### L IPR, T4, GLYHGB, T3 #### [address] [address] Business Programmer: Antoine Wilson MD #### CP, TSH, CDP, ZFAST #### [facility] [address] [place] [address] Business Programmer: Zayra Chapman MD Urea nitrogen [Mass/Vol] 11 mg/dL Normal 6-20 [facility] Comment on above: Performed By: #### L IPR, T4, GLYHGB, T3 #### [facility] [address], [place] [phone] Business Programmer: Antoine Wilson MD #### CP, TSH, CDP, ZFAST #### [facility] [address] [place] [address] Business Programmer: Zayra Chapman MD Hemoglobin A1Con 02-13-2023 Glucose [Mass/Vol] 280 mg/dL Normal [facility] Comment on above: Result Comment: The ADA and AACC recommend providing the estimated average glucose result to permit better patient understanding of their HBA1c result. Performed By: #### JESSICA LOWRY, UA #### [facility] [address] [place] [address] Business Programmer: Zayra Chapman MD HbA1c (Bld) [Mass fraction] 11.4 % High 4.0-6.0 [facility] Comment on above: Performed By: #### Julien DAVIDSON JOYCELYN, UA #### [facility] [address] [place] [address] Business Programmer: Zayra Chapman MD Lipid Profileon 02-13-2023 Cholesterol [Mass/Vol] 215 mg/dL High 0-199 [facility] Comment on above: Result Comment: Cholesterol Guidelines: <200 Desirable 200-240 Borderline >240 Undesirable Performed By: #### OSITO LOWRYG, UA #### [facility] [address] [place] [address] Business Programmer: Zayra Chapman MD Cholesterol in HDL [Mass/Vol] 27 mg/dL Low >40 [facility] Comment on above: Result Comment: HDL Guidelines: <40 Undesirable 40-59 Borderline >59 Desirable Performed By: #### OSITO LOWRYG, UA #### [facility] [address] [place], [place] [phone] Business Programmer: Zayra Chapman MD Cholesterol in LDL [Mass/Vol] 130 mg/dL High 0-100 [facility] Comment on above: Result Comment: LDL Guidelines: <100 Desirable 100-129 Near to/above Desirable 130-159 Borderline >159 Undesirable Direct (measured) LDL and calculated LDL are not interchangeable tests. Performed By: #### [facility] [place] #### [facility] [address] [place], [place] [phone] Business Programmer: Zayra Chapman MD Cholesterol in VLDL [Mass/Vol] 58 mg/dL Normal [facility] Comment on above: Performed By: #### Julien [facility] [place] #### [facility] [address] [place] [address] Business Programmer: Zayra Chapman MD Cholesterol.total/Otilia sterol in HDL [Mass ratio] 8.0 {ratio} Normal [facility] Comment on above: Performed By: #### [facility] [place] #### [facility] [address] [place], [place] [phone] Business Programmer: Zayra Chapman MD Triglyceride [Mass/Vol] 291 mg/dL High 0-149 M [facility] Comment on above: Result Comment: Triglyceride Guidelines: <150 Desirable 150-199 Borderline 200-499 High >499 Very high Based on AHA Guidelines for fasting triglyceride, February 2012. Performed By: #### [facility] [place] #### [facility] [address] [place] [address] Business Programmer: Zayra Chapman MD Patient fasting?on 3 Patient fasting? YES Normal [facility] Comment on above: Performed By: #### L IPR, T4, GLYHGB, T3 #### [place] [address] [place] [address] Business Programmer: Antoine Wilson MD #### CP, TSH, CDP, ZFAST #### [facility] [address] [place] [address] Business Programmer: Zayra Chapman MD Thyroid Stim. Horm.on 2022 Thyroid Stim. Horm. 1.43 uIU/mL Normal 0.30-5.00 [facility] Comment on above: Performed By: #### Julien [facility] [place] #### [facility] [address] [place], [place] [phone] Business Programmer: Zayra Chapman MD Thyroxine T4on 02-13-2023 T4 [Mass/Vol] 5.9 ug/dL Normal 4.5-11.7 [facility] Comment on above: Performed By: #### Julien [facility] [place] #### [facility] [address] [place], [place] [phone] Business Programmer: Zayra Chapman MD Triiodothyronine T3on 2022 Triiodothyronine T3 109 ng/dL Normal 80-200 [facility] Comment on above: Performed By: #### Julien [facility] [place] #### [facility] [address] [place] [address] Business Programmer: Zayra Chapman MD Chlamydia/GC DNA, Uron 12-23 Chlamydia Probe, Ur Negative Normal NEG [facility] Comment on above: Result Comment: CHLA MYDIA TRACHOMATIS DNA not detected by nucleic acid amplification. This test is intended for medical purposes only and is not valid for the evaluation of suspected sexual abuse or for other forensic purposes. In certain contexts, culture may be required to meet applicable laws and regulations for diagnosis of C. trachomatis and N. gonorrhoeae infections. Per 2014 CDC recommendations, this test does not include confirmation of positive results by an alternative nucleic acid target. Performed By: #### Julien [facility] [place] #### [facility] [address] [place] [address] Business Programmer: Zayra Chapman MD Gonorrhea Probe, Ur Negative Normal NEG [facility] Comment on above: Result Comment: DAVID SERIA GONORRHOEAE DNA not detected by nucleic acid amplification. This test is intended for medical purposes only and is not valid for the evaluation of suspected sexual abuse or for other forensic purposes. In certain contexts, culture may be required to meet applicable laws and regulations for diagnosis of C. trachomatis and N. gonorrhoeae infections. Per 2014 CDC recommendations, this test does not include confirmation of positive results by an alternative nucleic acid target. Performed By: #### U [facility] [place] #### [facility] [address] [place] [address] Business Programmer: Zayra Chapman MD Cult,Urineon 12-21-2022 Cult,Urine Specimen Description .URINE, MIDSTREAM Culture ESCHERICHIA COLI >100,000 CFU/ML Report Status FINAL 12/21/2022 SUSCEPTIBILITY Organism ESCHERICHIA COLI Method JOHAN Ampicillin >=32 RESISTANT Cefazolin <=4 SUSCEPTIBLE Cefazolin sensitivity results can be used to predict the effectiveness of oral cephalosporins (eg. Cephalexin) in uncomplicated Urinary Tract Infections due to E. coli, K. pneumoniae, and P. mirabilis Ceftriaxone <=0.25 SUSCEPTIBLE ESBL NEGATIVE Gentamicin >=16 RESISTANT Levofloxacin <=0.12 SUSCEPTIBLE Nitrofurantoin <=16 SUSCEPTIBLE Piperacillin/Tazobact am <=4 SUSCEPTIBLE Tobramycin 8 INTERMEDIATE Trimethoprim/Sulfa >=320 RESISTANT Resistant [facility] Comment on above: Performed By: #### [facility] [place] #### [facility] [address] [place] [address] Business Programmer: Zayra Chapman MD HCG, ,Urineon 12-19 Beta HCG ( test) Ql (U) Negative Normal NEG [facility] Comment on above: Performed By: #### [facility] [place] [place] #### [facility] [address] [place] [address] Business Programmer: Zayra Chapman MD Microscopic Urinalysison - [facility] Bacteria LM Ql (Urine sed) 4+ Abnormal None [facility] Epithelial cells LM.HPF (Urine sed) [#/Area] 2 TO 5 /HPF [facility] Interpretation and review of laboratory results Abnormal [facility] RBC LM.HPF (Urine sed) [#/Area] 2 TO 5 [facility] WBC LM.HPF (Urine sed) [#/Area] 50 TO 100 0 /HPF [facility] Yeast LM Ql (Urine sed) OCCASIONAL Abnormal None B ON [facility] , Urineon HCG ( test) Ql (U) Negative NEGATIVE [facility] Urinalysison 12-19-2022 Bilirubin Ql (U) Negative NEGATIVE [facility] Clarity (U) Cloudy Abnormal Clear [facility] Color (U) Yellow Yellow [facility] Comment [facility] Glucose Test strip (U) [Mass/Vol] 1000 mg/dL Abnormal NEGATIVE mg/dL [facility] Hemoglobin Auto test strip Ql (U) 1+ Abnormal NEGATIVE [facility] Interpretation and review of laboratory results Abnormal [facility] Ketones (U) [Mass/Vol] Negative NEGAT [place] mg/dL [facility] Leukocyte esterase Test strip Ql (U) 3+ Abnormal NEGATIVE [facility] Nitrite Ql (U) Positive Abnormal NEGATIVE [facility] pH (U) 6.0 [pH] 5.0 - 8.0 [facility] Protein (U) [Mass/Vol] 1+ Abnormal NEGAT [place] mg/dL [facility] Specific gravity (U) [Rel density] 1.010 1.005 - 1.030 [facility] Urobilinogen Qn (U) Normal 0.0 - 1. 0 EU/dL [facility] Urinalysis, Routineon 2022 Bilirubin, SemiQt,Ur Negative Normal NEG [facility] Comment on above: Performed By: #### U JESSICA DAVIDSON, UA #### [facility] [address] [place], [place] [phone] Business Programmer: Zayra Chapman MD Blood, Urine 1+ Abnormal NEG [facility] Comment on above: Performed By: #### U [facility]IR[place], [facility] #### [facility] [address] [place], [place] [phone] Business Programmer: Zayra Chapman MD Clarity (U) Cloudy Abnormal CLEAR [facility] Comment on above: Performed By: #### U MICAO, [facility] #### [facility] [address] [place], [place] [phone] Business Programmer: Zayra Chapman MD Color (U) Yellow Normal YEL [facility] Comment on above: Performed By: #### U [facility]IR[place], [facility] #### [facility] [address] [place] [address] Business Programmer: Zayra Chapman MD Comment Normal [facility] Comment on above: Performed By: #### U [facility], [facility] #### [facility] [address] [place], [place] [phone] Business Programmer: Zayra Chapman MD Glucose Ql (U) 1000 mg/dL Abnormal NEG [facility] Comment on above: Performed By: #### U SAMIRAO, [facility] [place] #### [facility] [address] [place], [place] [phone] Business Programmer: Zayra Chapman MD Ketones Ql (U) Negative Normal NEG [facility] Comment on above: Performed By: #### U SAMIR[place], [facility] #### [facility] [address] [place], [place] [phone] Business Programmer: Zayra Chapman MD Leukocyte esterase Test strip Ql (U) 3+ Abnormal NEG [facility] Comment on above: Performed By: #### U MICAO, [facility] [place] #### [facility] [address] [place] [address] Business Programmer: Zayra Chapman MD Nitrite,Ur Positive Abnormal NEG [facility] Comment on above: Performed By: #### [facility] #### [facility] [address] [place] [address] Business Programmer: Zayra Chapman MD PH,Ur 6.0 Normal 5.0-8.0 [facility] Comment on above: Performed By: #### U [facility] [place] [place] #### [facility] [address] [place] [address] Business Programmer: Zayra Chapman MD Protein Ql (U) 1+ mg/dL Abnormal NEG [facility] Comment on above: Performed By: #### [facility] #### [facility] [address] [place] [address] Business Programmer: Zayra Chapman MD Spec. [place],Ur 1.010 Normal 1.005-1.030 [facility] Comment on above: Performed By: #### U [facility] [place] #### [facility] [address] [place] [address] Business Programmer: Zayra Chapman MD Urobilinogen,Ur Normal Normal 0.0-1.0 [facility] Comment on above: Performed By: #### [facility] #### [facility] [address] [place] [address] Business Programmer: Zayra Chapman MD Urinalysis,Microon 3 ----- Normal [facility] Comment on above: Performed By: #### [facility] #### [facility] [address] [place], [place] [phone] Business Programmer: Zayra Chapman MD Bacteria 4+ Abnormal NONE [facility] Comment on above: Performed By: #### [facility] [place] #### [facility] [address] [place], [place] [phone] Business Programmer: Zayra Chapman MD Epithelial cells LM Ql (Urine sed) 2 TO 5 Normal [facility] Comment on above: Performed By: #### [facility] [place] #### [facility] [address] [place] [address] Business Programmer: Zayra Chapman MD Urine RBC's 2 TO 5 Normal 0-2 [facility] Comment on above: Performed By: #### Julien [facility] [place] #### [facility] [address] [place] [address] Business Programmer: Zayra Chapman MD Urine WBC's 50 TO 100 Normal 0 [facility] Comment on above: Performed By: #### Julien DAV[facility] [place] #### [facility] [address] [place], [place] [phone] Business Programmer: Zayra Chapman MD Yeast OCCASIONAL Abnormal NONE [facility] Comment on above: Performed By: #### Julien DAVIDSON, [facility] [place] #### [facility] [address] [place], [place] [phone] Business Programmer: Zayra Chapman MD Auto Diffon 12-06-2022 Basophils/100 WBC (Bld) 0.8 % Normal 0.0-2.0 F [facility] Comment on above: Order Comment: Order Added by Discern Expert. Performed By: #### 2 826436, 2620831, 1475260, [id number] #### [facility] [address] [place] [address] Basophils/Leukocytes Auto (Bld) [Pure # fraction] 0.1 E9/L Normal 0.0-0.2 [facility] Comment on above: Order Comment: Order Added by Discern Expert. Performed By: #### 2 130282, 3437159, 4087435, [id number] #### [facility] [address] [place] [address] Eosinophils/100 WBC (Bld) 0.3 % Normal 0.0-8.0 [facility] Comment on above: Order Comment: Order Added by Discern Expert. Performed By: #### 2 919268, 0624834, 8593078, [id number] #### [facility] [address] [place] [address] Eosinophils/Leukocytes Auto (Bld) [Pure # fraction] 0.0 E9/L Normal 0.0-0.5 [facility] Comment on above: Order Comment: Order Added by Lois Expert. Performed By: #### 2 737906, 2535106, 3946716, 03283832 #### [facility] [address] [place] [address] Lymphocytes/100 WBC (Bld) 12.5 % Low 14.0-50.0 [facility] Comment on above: Order Comment: Order Added by Lois Expert. Performed By: #### 2 396535, 6856425, 1157211, [id number] #### [facility] [address] [place] [address] Lymphocytes/Leukocytes Auto (Bld) [Pure # fraction] 1.3 E9/L Normal 1.0-4.0 [facility] Comment on above: Order Comment: Order Added by Discern Expert. Performed By: #### 2 069936, 1891206, 8844330, 13661595 #### [facility] [address] [place] [address] Monocytes/100 WBC (Bld) 4.5 % Normal 4.0-14.0 [facility] Comment on above: Order Comment: Order Added by Lois Expert. Performed By: #### 2 571037, 3789265, 9793692, 38353969 #### [facility] [address] [place] [address] Monocytes/Leukocytes Auto (Bld) [Pure # fraction] 0.5 E9/L Normal 0.2-1.0 [facility] Comment on above: Order Comment: Order Added by Discern Expert. Performed By: #### 2 398559, 5880207, 6153052, 39493313 #### [facility] [address] [place] [address] Neutrophils/100 WBC (Bld) 81.9 % High 36.0-75.0 [facility] Comment on above: Order Comment: Order Added by Discern Expert. Performed By: #### 2 203979, 8798143, 8886152, 11878138 #### [facility] [address] [place] [address] Neutrophils/Leukocytes Auto (Bld) [Pure # fraction] 8.8 E9/L High 2.0-7.5 [facility] Comment on above: Order Comment: Order Added by Discern Expert. Performed By: #### 2 044231, 3134905, 5205875, [id number] #### [facility] [address] [place] [address] CBC w/ Auto Diffon 3 Erythrocyte distribution width (RBC) [Ratio] 13.9 % Normal 10.9-14.2 [facility] Comment on above: Performed By: #### 2 054807, 6604987, 9559993, 09904830 #### [facility] [address] [place] [address] Hematocrit (Bld) [Volume fraction] 42.7 % Normal 34.0-46.0 [facility] Comment on above: Performed By: #### 2 986029, 7786820, 4720052, 88016820 #### [facility] [address] [place] [address] Hemoglobin (Bld) [Mass/Vol] 14.2 g/dL Normal 12.0-16.0 [facility] Comment on above: Performed By: #### 2 424935, 9121984, 9243116, 73904169 #### [facility] [address] [place] [address] MCH (RBC) [Entitic mass] 26.8 pg Low 27.0-34.0 [facility] Comment on above: Performed By: #### 2 297062, 2211819, 3329287, 19130802 #### [facility] [address] [place] [address] MCHC (RBC) [Mass/Vol] 33.2 g/dL Normal 31.4-36.0 [facility] Comment on above: Performed By: #### 2 764021, 9012259, 7637068, 01144615 #### [facility] [address] [place] [address] MCV (RBC) [Entitic vol] 80.8 fL Normal 80.0-100.0 F [facility] Comment on above: Performed By: #### 2 380627, 6878206, 6945370, 66483331 #### [facility] [address] [place] [address] Platelet mean volume (Bld) [Entitic vol] 9.8 fL Normal 6.4-10.8 [facility] Comment on above: Performed By: #### 2 172637, 8918778, 3954056, 77513782 #### [facility] [address] [place] [address] Platelets (Bld) [#/Vol] 252.0 E9/L Normal 150.0-500.0 [facility] Comment on above: Performed By: #### 2 216732, 3534774, 6989207, 84000136 #### [facility] [address] [place] [address] RBC (Bld) [#/Vol] 5.3 E12/L Normal 4.3-5.9 [facility] Comment on above: Performed By: #### 2 967985, 8189668, 5217512, 48566973 #### [facility] [address] [place] [address] WBC corrected for nucl RBC Auto (Bld) [#/Vol] 10.7 E9/L Normal 4.0-11.0 [facility] Comment on above: Performed By: #### 2 539697, 0182213, 0729980, 08671172 #### [facility] [address] [place] [address] CHEMISTRYOrdered By: SYSTEM SYSTEM on 12-06-2022 Albumin [Mass/Vol] 4.2 g/dL Normal 3.3 - 5.0 gm/dL [facility] Albumin/Globulin [Mass ratio] 1.2 {ratio} Normal 1.1 - 2.2 [facility] ALP [Catalytic activity/Vol] 117 [iU]/d High 21 - 98 Int._Unit/L [facility] ALT No additional P-5'-P [Catalytic activity/Vol] 78 [iU]/d High 6 - 46 Int._Unit/L [facility] Anion gap [Moles/Vol] 15 mmol/L Normal 6 - 16 mEq/L [facility] AST [Catalytic activity/Vol] 68 [iU]/d High 5 - 43 Int._Unit/L [facility] Bilirubin [Mass/Vol] 0.7 mg/dL Normal 0.0 - 1 .1 mg/dL [facility] Calcium [Mass/Vol] 9.6 mg/dL Normal 8.9 - 11. 1 mg/dL [facility] Chloride [Moles/Vol] 104 mmol/L Normal 101 - 1 11 mmol/L [facility] CO2 [Moles/Vol] 22 mmol/L Normal 21 - 31 mmol/L [facility] Creatinine [Mass/Vol] 0.8 mg/dL Normal 0.5 - 1.3 mg/dL [facility] Ethanol [Mass/Vol] mg/dL Normal <=7mg/dL [facility] GFR/1.73 sq M.predicted among non-blacks MDRD (S/P/Bld) [Vol rate/Area] 105 mL/min/1.73 m2 Normal >=59mL/min/ 1.73 m2 [facility] S Globulin (S) [Mass/Vol] 3.6 g/dL Normal 1.4 - 4.0 gm/dL [facility] Glucose [Mass/Vol] 244 mg/dL High 55 - 199 mg/dL [facility] Potassium [Moles/Vol] 4.3 mmol/L Normal 3.5 - 5.3 mmol/L [facility] Protein [Mass/Vol] 7.8 g/dL Normal 6.0 - 7.8 gm/dL [facility] Sodium [Moles/Vol] 137 mmol/L Normal 135 - 145 mmol/L [facility] Urea nitrogen [Mass/Vol] 12 mg/dL Normal 5 - 21 mg/dL [facility] Urea nitrogen/Creatinine [Mass ratio] 15 mg/mg Normal 10 - 20 [facility] Amphetamines Screen method >1000 ng/mL Ql (U) Negative (12/06/22 1:41 PM) Normal Negative [facility] Barbiturates Screen Ql (U) Negative (12/06/22 1:41 PM) Normal Negative [facility] Benzodiazepines Ql (U) Positive 1 *ABN* (12/06/22 1:41 PM) Invalid Interpretation Code Negative [facility] Comment on above: Result Comment: Crit ical Result verified by repeat analysis\No confirmation requested by Physican\Unconfirmed by alternate method\Critical Result UD_BENZ:POS Called to [facility] AT ER by JOEL STEVENS And Read Back For Confirmation at: 12/06/2022 14:42:33 Cocaine Ql (U) Negative (12/06/22 1:41 PM) Normal Negative [facility] Opiates Screen Ql (U) Negative (12/06/22 1:41 PM) Normal Negative [facility] Phencyclidine Screen method >25 ng/mL Ql (U) Negative (12/06/22 1:41 PM) Normal Negative [facility] Tetrahydrocannabinol Screen method >50 ng/mL Ql (U) Positive 2 *ABN* (12/06/22 1:41 PM) Invalid Interpretation Code Negative [facility] Comment on above: Result Comment: Crit ical Result verified by repeat analysis\No confirmation requested by Physican\Unconfirmed by alternate method\Critical Result UD_THC:POS Called to [facility] AT ER by JOEL STEVENS And Read Back For Confirmation at: 12/06/2022 14:42:33 CMPon 12-06-2022 Albumin [Mass/Vol] 4.2 g/dL Normal 3.3-5.0 [facility] Comment on above: Performed By: #### 2 835650, 8132855, 1698739, 01114812 #### [facility] [address] [place] [address] Albumin/Globulin (S) [Mass conc ratio] 1.2 Normal 1.1-2.2 [facility] Comment on above: Performed By: #### 2 646748, 3231963, 4599977, 19700822 #### [facility] [address] [place] [address] ALP [Catalytic activity/Vol] 117 Int._Unit/L High 21-98 [facility] Comment on above: Performed By: #### 2 823631, 1447200, 6850128, 08664139 #### [facility] [address] [place] [address] ALT No additional P-5'-P [Catalytic activity/Vol] 78 Int._Unit/L High 6-46 [facility] Comment on above: Performed By: #### 2 823734, 4563546, 9536681, 06757393 #### [facility] [address] [place] [address] AST [Catalytic activity/Vol] 68 Int._Unit/L High 5-43 [facility] Comment on above: Performed By: #### 2 152027, 0430236, 9608016, 94228912 #### [facility] [address] [place] [address] Bilirubin [Mass/Vol] 0.7 mg/dL Normal 0.0-1.1 [facility] Comment on above: Performed By: #### 2 659788, 2956507, 2996011, 48224175 #### [facility] [address] [place] [address] Creatinine [Mass/Vol] 0.8 mg/dL Normal 0.5-1.3 [facility] Comment on above: Performed By: #### 2 127755, 4548748, 2507992, 97312947 #### [facility] [address] [place] [address] Globulin (S) [Mass/Vol] 3.6 g/dL Normal 1.4-4.0 [facility] Comment on above: Performed By: #### 2 929012, 5944106, 1775329, 23035064 #### [facility] [address] [place] [address] Protein [Mass/Vol] 7.8 g/dL Normal 6.0-7.8 [facility] Comment on above: Performed By: #### 2 239315, 7756009, 7124310, 36620385 #### [facility] [address] [place] [address] Urea nitrogen [Mass/Vol] 12 mg/dL Normal 5-21 [facility] Comment on above: Performed By: #### 2 513086, 9368807, 2329313, 44355704 #### [facility] [address] [place] [address] Urea nitrogen/Creatinine [Mass ratio] 15 No Units Normal 10-20 [facility] Comment on above: Performed By: #### 2 705044, 0526321, 2876937, 01587181 #### [facility] [address] [place] [address] Anion gap [Moles/Vol] 15 mmol/L Normal 6-16 [facility] Comment on above: Performed By: #### 2 137438, 5654381, 6043532, 63959604 #### [facility] [address] [place] [address] Calcium [Mass/Vol] 9.6 mg/dL Normal 8.9-11.1 [facility] Comment on above: Performed By: #### 2 686225, 2995233, 9565101, 73045240 #### [facility] [address] [place] [address] Chloride [Moles/Vol] 104 mmol/L Normal 101-111 [facility] Comment on above: Performed By: #### 2 092487, 7662148, 8609041, 65766450 #### [facility] [address] [place] [address] CO2 [Moles/Vol] 22 mmol/L Normal 21-31 [facility] Comment on above: Performed By: #### 2 523820, 3035306, 4625870, 87628627 #### [facility] [address] [place] [address] Glucose [Mass/Vol] 244 mg/dL High 55-199 [facility] Comment on above: Result Comment: If t his glucose result represents a fasting glucose, interpretation should refer to the following reference range: 55-99 mg/dL Performed By: #### 2 409914, 8244319, 9087182, 02777964 #### [facility] [address] [place] [address] Potassium [Moles/Vol] 4.3 mmol/L Normal 3.5-5.3 [facility] Comment on above: Performed By: #### 2 376417, 0633880, 9538929, 61294663 #### [facility] [address] [place] [address] Sodium [Moles/Vol] 137 mmol/L Normal 135-145 [facility] Comment on above: Performed By: #### 2 411812, 8444929, 2510367, 40008143 #### [facility] [address] [place] [address] Consent for Treatmenton Consent for Treatment [id number] .[id number]:127 Normal [facility] Discharge Instructionson Discharge Instructions [id number] 1.00CD:127 Normal [facility] ED Clinical Summaryon 2022 ED Clinical Summary [address] [id number] ED Clinical Summary Person Information Name: RIRI DEMPSEY/NewMildred Age: 27 Years : 1995 Sex: Female Language: Bulgarian PCP: GAYE BARROS Marital Status: Single Visit Id: Visit Reason: Psychiatric screening exam; EVALUATION Speciality: Acuity: 2 Enc Type: Emergency Med Service: Emergency Arrival: 12/06/2022 13:19:47 Discharge: 12/06/2022 16:43:33 LOS: 000 03:24 Checkin: 12/06/2022 13:19:47 Checkout: 12/06/2022 16:43:33 Dispo Type: Home (Routine DC) EVENTS: Event Name Event Status Request Date/Time Start Date/Time Complete Date/Time Arrive Complete 12/06/2022 13:19:47 12/06/2022 13:19:47 12/06/2022 13:19:47 Document Home Meds Request 12/06/2022 13:19:47 Triage Complete 12/06/2022 13:19:47 12/06/2022 13:32:59 12/06/2022 13:32:59 Bed Assign Complete 12/06/2022 13:22:39 12/06/2022 13:22:39 12/06/2022 13:22:39 Dr Exam Complete 12/06/2022 13:22:39 12/06/2022 13:27:13 12/06/2022 13:27:13 RN Exam Complete 12/06/2022 13:22:39 12/06/2022 13:39:50 12/06/2022 13:39:50 EKG Complete 12/06/2022 13:24:50 12/06/2022 13:49:04 Pending Labs Complete 12/06/2022 13:24:50 12/06/2022 14:42:42 Lab Complete 12/06/2022 13:24:50 12/06/2022 14:42:42 Urine Collect Complete 12/06/2022 13:24:50 12/06/2022 14:42:42 Patient Care Request 12/06/2022 13:24:50 Registration Complete 12/06/2022 13:25:43 12/06/2022 13:25:43 12/06/2022 13:25:43 Reg Complete Request 12/06/2022 13:25:43 Reg Bed Request Complete 12/06/2022 13:25:43 12/06/2022 13:25:43 12/06/2022 13:25:43 Registration Start 12/06/2022 13:27:13 12/06/2022 14:40:53 Pending Labs Complete 12/06/2022 14:03:39 12/06/2022 14:03:39 12/06/2022 14:26:38 Lab Complete 12/06/2022 14:03:39 12/06/2022 14:03:39 12/06/2022 14:26:38 Pending Labs Complete 12/06/2022 14:16:26 12/06/2022 14:16:26 12/06/2022 14:16:34 Lab Complete 12/06/2022 14:16:26 12/06/2022 14:16:26 12/06/2022 14:16:34 Discharge Complete 12/06/2022 16:28:59 12/06/2022 16:43:40 12/06/2022 16:43:40 Transfer Complete 12/06/2022 16:43:40 12/06/2022 16:43:40 12/06/2022 16:43:40 ADDRESS: [facility] [id number] [facility] DOC NOTES: MEDICAL INFORMATION: Prescriptions Given: Medications to Continue with No Changes Other Medications venlafaxine (Effexor XR 150 mg Cap-ER) PATIENT EDUCATION INFORMATION: Instructions: Suicidal Feelings: How to Help Yourself Follow up: With: Address: When: [facility] In 3 days 12/09/2022 Comments: Follow safety plan. Return to the emergency department with any worsening symptoms. With: Address: When: AGYE JOSUE [address] [place] [address] [facility] () In 3 days 12/09/2022 Comments: Call the office of your primary care doctor to arrange for follow-up within the above-stated timeframe. Follow-up with your primary care doctor about this ED visit. You should review your labs, imaging, and diagnoses from this ED visit with your primary care physician. There are occasionally non-emergent findings that require additional follow-up after your ED visit. If you were prescribed medications you should discuss possible side-effects and drug interactions with your pharmacist. Call 911 or go to the nearest Emergency Department if you develop any new or worsening symptoms. Repeat liver function testing in 1 month. DIAGNOSIS: Situational stress Normal [facility] ED Note-Physicianon 12-07-19 ED Note-Physician Basic Information Time Seen: Graham Choe DO 12/06/2022 13:27 Chief Complaint patient brought in by [employer] for psychiatric evaluation from peds office. patient expressed thoughts of harming herself to peds office. peds called pri[facility]ank [facility]. patient expressing stress from costudy hearing yesterday. History of Present Illness 27-year-old female to the emergency department with chief complaint of needing psychiatric evaluation. 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 She reports she is currently in a contentious custody pino. She got in a Facebook argument with the family of her child's father and this was distressing to her. She reports that she is in a very bad place mentally but does not want to harm herself. She has been having suicidal thoughts about how she may just be better not here but does not intend to do anything. She has a therapist however they are on vacation. They are in the pediatrics office called our police department to bring the patient here for evaluation. Review of Systems A 10 point review of systems is negative except as noted above. Medical and Surgical History: Reviewed and noted Social history: Lives at home Tobacco: Denies Physical Exam Vitals & Measurements T: 36.9 ?C(Oral) HR: 95(Peripheral) RR: 18 BP: 136/75 SpO2: 96% HT: 162.56 cm WT: 104.7 kg BMI: 39.62 VITALS: I have reviewed the triage vital signs. GENERAL: Well developed, well appearing adult in no acute distress. NEURO: Alert and oriented. Moves all extremities. Face is symmetric and expressive. EYES: PERRL. No scleral icterus or conjunctival injection. No discharge. HENT: Normocephalic, atraumatic. Hearing is grossly intact. Nares grossly patent and without discharge. Mucous membranes moist. NECK: No JVD. Patient moves neck without restriction. CARDIO: Rhythm regular. Normal rate. No murmur, rub, or gallop. Pulses equal bilaterally in the upper and lower extremity. No lower extremity edema. PULM: Lungs clear to auscultation in all lay. No wheezes, rales, or rhonchi. No conversational dyspnea. No splinting, stridor, or accessory muscle use. GI/: Abdomen is soft and non-tender. Normoactive bowel sounds. EXTREMITIES: Symmetric muscle bulk. No joint swelling. No clubbing, cyanosis, or deformity. SKIN: Warm and dry. Normal turgor. No rash or lesions appreciated. PSYCH: Mood, affect, and interaction is appropriate to the setting. Mostly during sports surgery will get Medical Decision Making 27-year-old female to the emergency department for MHP evaluation. Vital stable, the patient is afebrile. Medical clearance labs are ordered. She has slight elevation of ALT and AST without any abdominal pain. Unclear the chronicity. She also is hyperglycemic on these nonfasting labs. These findings were discussed with patient she will follow with her PCP about it. MHP evaluated the patient. They spoke to collateral of police, pediatrics office, family. Patient to be safety plan home. Discussed with the patient and she feels comfortable with this plan. Patient was discharged home with safety plan. She was given hotline number. All questions answered. Assessment/Plan Situational stress (F43.9: Reaction to severe stress, unspecified) Orders: Automated Diff CBC w/ Auto Diff Comprehensive Metabolic Panel Drug Screen Urine ECG 12 Lead Adult eGFR Ethanol Level U Beta Hcg Qual Disposition Plan Patient Discharge Condition Stay Discharge Disposition Home Discharge Prescription List Prescriptions No active prescription medications Follow-up With When Contact Information [facility] In 3 days 12/09/2022 EDT Additional Instructions: Follow safety plan. Return to the emergency department with any worsening symptoms. GAYE JOSUE In 3 days 12/09/2022 EDT [address] [place] [address]- Business (1) Additional Instructions: Call the office of your primary care doctor to arrange for follow-up within the above-stated timeframe. Follow-up with your primary care doctor about this ED visit. You should review your labs, imaging, and diagnoses from this ED visit with your primary care physician. There are occasionally non-emergent findings that require additional follow-up after your ED visit. If you were prescribed medications you should discuss possible side-effects and drug interactions with your pharmacist. Call 911 or go to the nearest Emergency Department if you develop any new or worsening symptoms. Repeat liver function testing in 1 month. Patient Education Suicidal Feelings: How to Help Yourself Problem List/Past Medical History Ongoing Anxiety Mood disorder Smoker Historical No qualifying data Procedure/Surgical History Bunionectomy. Medications Inpatient No active inpatient medications Home Effexor XR 150 mg Cap-ER Allergies No Known Allergies No Known Medica (more content not included)... Normal [facility] Comment on above: Result Comment: Elec tronically Signed By: Graham Choe DO\.br\Date and Time Signed: 12/06/22 21:40 EDT ED Patient Education Noteon 12-06-2022 ED Patient Education Note Mental and Behavioral Health Suicidal Feelings: How to Help Yourself Suicide is when you end your own life. Suicidal ideation includes expressing thoughts about, or a preoccupation with, ending your own life. There are many things you can do to help yourself feel better when struggling with these feelings. Many services and people are available to support you and others who struggle with similar feelings. If you ever feel like you may hurt yourself or others, or have thoughts about taking your own life, get help right away. To get help: ? Go to your nearest emergency department. ? Call your local emergency services (911 in the [place] ? Call the [facility] health and human services helpline (211 in the [place] ? Call or text a suicide hotline to speak with a trained counselor. The following suicide hotlines are available in the [place]: ? 4-216-704-TALK ( or 340 in the [place] ? 4-373-JCIJJNA ( ). ? Text 433287. This is the Crisis Text Line in the [place] ? . This is a hotline for Iranian speakers. ? . This is a hotline for TTY users. ? 7-794-4-U-YASHIRA ( ). This is a hotline for lesbian, delgadillo, bisexual, transgender, or questioning youth. ? For a list of hotlines in [place], visit suicide.org/hotlines/ international/[place]- suicide-hotlines.html ? Contact a crisis center or a local suicide prevention center. To find a crisis center or suicide prevention center: ? Call your local hospital, clinic, community service organization, mental health center, social service provider, or health department. Ask for help with connecting to a crisis center. ? For a list of crisis centers in the [place], visit: suicidepreventionlife line.org ? For a list of crisis centers in [place], visit: suicideprevention.ca How to help yourself feel better ? Promise yourself that you will not do anything bad or extreme when you have suicidal feelings. Remember the times you have felt hopeful. ? Many people have gotten through suicidal thoughts and feelings, and you can too. ? If you have had these feelings before, remind yourself that you can get through them again. ? Let family, friends, teachers, or counselors know how you are feeling. Do not separate yourself from those who care about you and want to help you. ? Talk with someone every day, even if you do not feel like talking to anyone or being with other people. ? Qpjl-td-ylpn conversation is best to help them understand your feelings. ? Contact a mental health care provider and work with this person regularly. ? Make a safety plan that you can follow during a crisis. ? Include phone numbers of suicide prevention hotlines, mental health professionals, and trusted friends and family members you can call during an emergency. ? Save these numbers on your phone. ? If you are thinking of taking a lot of medicine, give your medicine to someone who can give it to you as prescribed. ? If you are on antidepressants and are concerned you will overdose, tell your health care provider so that he or she can give you safer medicines. ? Try to stick to your routines and follow a schedule every day. Make self-care a priority. ? Make a list of realistic goals, and cross them off when you achieve them. Accomplishments can give you a sense of worth. ? Wait until you are feeling better before doing things that you find difficult or unpleasant. ? Do things that you have always enjoyed to take your mind off your feelings. ? Try reading a book, or listening to or playing music. ? Spending time outside, in nature, may help you feel better. Follow these instructions at home: ? Visit your primary health care provider every year for a physical and a mental health checkup. ? Take lpnu-pna-kkjxwst and prescription medicines only as told by your health care provider. ? Ask your health care provider about the possible side effects of any medicines you are taking. ? Ask your health care provider about whether suicidal ideation is a possible side effect of any of your medicines. ? Learn about suicidal ideation and what increases the risk for the development of suicidal thoughts. ? Eat a well-balanced diet, and eat regular meals. ? Get plenty of rest. ? Exercise if you are able. Just 30 minutes of exercise each day can help you feel better. ? Keep your living space well lit. ? Do not use alcohol or drugs. Remove these substances from your home. General recommendations ? Remove weapons, poisons, knives, and other deadly items from your home. ? Work with a mental health care provider as needed. ? When you are feeling well, write yourself a letter with tips and support that you can read when you are not feeling well. ? Remember that life's difficulties can be sorted out with help. Conditions can be treated, and you can learn behaviors and ways of thinking that will hel (more content not included)... Normal [facility] ED Patient Summaryon 023 ED Patient Summary [place] [id number] Patient Discharge Instructions Person Information Name: RIRI DEMPSEY Age: 27 Years Arrival Date: 12/06/2022 13:19:47 Discharge Diagnosis: Situational stress Primary Care Physician: GAYE BARROS Provider Information Primary Provider: Graham Choe DO Advanced Child Care Specialist:None The exam and treatment you received in the Emergency Department were for an urgent problem and are not intended as complete care. It is important that you follow up with a doctor, nurse practitioner, or physician?s assistant cross country coach for ongoing care. If your symptoms become worse or you do not improve as expected and you are unable to reach your usual health care provider, you should return to the Emergency Department. We are available 24 hours a day. RIRI DEMPSEY has been given the following list of patient education materials, prescriptions and follow-up instructions: Follow-up Instructions: With: Address: When: [facility] In 3 days 12/09/2022 Comments: Follow safety plan. Return to the emergency department with any worsening symptoms. With: Address: When: GAYE JOSUE [address], [place] [id number] [facility] ([employer] In 3 days 12/09/2022 Comments: Call the office of your primary care doctor to arrange for follow-up within the above-stated timeframe. Follow-up with your primary care doctor about this ED visit. You should review your labs, imaging, and diagnoses from this ED visit with your primary care physician. There are occasionally non-emergent findings that require additional follow-up after your ED visit. If you were prescribed medications you should discuss possible side-effects and drug interactions with your pharmacist. Call 911 or go to the nearest Emergency Department if you develop any new or worsening symptoms. Repeat liver function testing in 1 month. In the event that this physician does not participate in your insurance network, please consult with your insurance company to find a nearby participating provider. Patient Education Materials: Suicidal Feelings: How to Help Yourself A MESSAGE TO ALL PATIENTS REGARDING OPIOIDS PRESCRIPTION OPIOIDS: WHAT YOU NEED TO KNOW Prescription opioids can be used to help relieve zckbhybc-cx-dxtzjx pain and are often prescribed following a surgery or injury, or for certain health conditions. These medications can be an important part of the treatment but also come with serious risks. It is important to work with your healthcare provider to make sure you are getting the safest, most effective care. WHAT ARE THE RISKS AND SIDE EFFECTS OF OPIOID USE? Prescription opioids carry serious risks of addiction and overdose, especially with prolonged use. An opioid overdose, often marked by slowed breathing, can cause sudden . The use of prescription opioids can have a number of side effects as well, even when taken as directed: ? Tolerance?meaning you might need to take more of the medication for the same pain relief ? Physical dependence?meaning you have symptoms of withdrawal when a medication is stopped ? Increased sensitivity to pain ? Constipation ? Nausea, vomiting, and dry mouth ? Sleepiness and dizziness ? Confusion ? Depression ? Low levels of testosterone that can result in lower sex drive, energy, and strength ? Itching and sweating RISKS ARE GREATER WITH: ? History of drug misuse, substance use disorder, or overdose ? Mental health conditions (such as depression or anxiety) ? Sleep apnea ? Older age (65 years and older) ? Avoid alcohol while taking prescription opioids. Also, unless specifically advised by your health care provider, medications to avoid include: ? Benzodiazepines (such as Xanax or Valium) ? Muscle relaxants (such as Soma or Flexeril) ? Hypnotics (such as Ambien or Lunesta) ? Other prescription opioids KNOW YOUR OPTIONS Talk to your health care provider about ways to manage your pain that don?t involve prescription opioids. Some of these options may actually work better and have fewer risks and side effects. Options may include: ? Pain relievers such as acetaminophen, ibuprofen, and naproxen ? Some medication that are also used for depression or seizures ? Physical therapy and exercise ? Cognitive behavioral therapy, a psychological, goal-directed approach, in which patients learn how to modify physical, behavioral, and emotional triggers of pain and stress. IF YOU ARE PRESCRIBED OPIOIDS FOR PAIN: ? Never take opioids in greater amounts or more often than prescribed. ? Follow up with your primary health care provider. o Work together to create a plan on how to manage your pain. o Talk about ways to help manage your pain that don?t involve prescription opioids. o Talk about any and all concerns and katja (more content not included)... Normal [facility] Ethanolon 12-06-2022 Ethanol [Mass/Vol] mg/dL Normal <=7 [facility] Comment on above: Performed By: #### 2 [id number] ####[facility] [address] [place] [address] HEMATOLOGYOrdered By: SYSTEM SYSTEM on 12-06-2022 Basophils/100 WBC (Bld) 0.8 % Normal 0.0 - 2.0 % [facility] HemeAutoSS Basophils/Leukocytes Auto (Bld) [Pure # fraction] 0.1 E9/L Normal 0.0 - 0.2 E9/L [facility] HemeAutoSS Eosinophils/100 WBC (Bld) 0.3 % Normal 0.0 - 8.0 % [facility] HemeAutoSS Eosinophils/Leukocytes Auto (Bld) [Pure # fraction] 0.0 E9/L Normal 0.0 - 0.5 E9/L [facility] HemeAutoSS Lymphocytes/100 WBC (Bld) 12.5 % Low 14.0 - 50.0 % [facility] HemeAutoSS Lymphocytes/Leukocytes Auto (Bld) [Pure # fraction] 1.3 E9/L Normal 1.0 - 4.0 E9/L [facility] HemeAutoSS Monocytes/100 WBC (Bld) 4.5 % Normal 4.0 - 14.0 % [facility] HemeAutoSS Monocytes/Leukocytes Auto (Bld) [Pure # fraction] 0.5 E9/L Normal 0.2 - 1.0 E9/L [facility] HemeAutoSS Neutrophils/100 WBC (Bld) 81.9 % High 36.0 - 75.0 % [facility] HemeAutoSS Neutrophils/Leukocytes Auto (Bld) [Pure # fraction] 8.8 E9/L High 2.0 - 7.5 E9/L [facility] HemeAutoSS HEMATOLOGYOrdered By: Rosa Morel on 12-06-2022 Erythrocyte distribution width (RBC) [Ratio] 13.9 % Normal 10.9 - 14.2 % [facility] HemeAutoSS Hematocrit (Bld) [Volume fraction] 42.7 % Normal 34.0 - 46.0 % [facility] HemeAutoSS Hemoglobin (Bld) [Mass/Vol] 14.2 g/dL Normal 12.0 - 16.0 gm/dL [facility] HemeAutoSS MCH (RBC) [Entitic mass] 26.8 pg Low 27.0 - 34.0 pg [facility] HemeAutoSS MCHC (RBC) [Mass/Vol] 33.2 g/dL Normal 31.4 - 36.0 gm/dL [facility] HemeAutoSS MCV (RBC) [Entitic vol] 80.8 fL Normal 80.0 - 100.0 fL [facility] HemeAutoSS Platelet mean volume (Bld) [Entitic vol] 9.8 fL Normal 6.4 - 10.8 fL [facility] HemeAutoSS Platelets (Bld) [#/Vol] 252.0 E9/L Normal 150. 0 - 500.0 E9/L [facility] HemeAutoSS RBC (Bld) [#/Vol] 5.3 E12/L Normal 4.3 - 5.9 E12/L [facility] HemeAutoSS WBC corrected for nucl RBC Auto (Bld) [#/Vol] 10.7 E9/L Normal 4.0 - 11.0 E9/L [facility] HemeAutoSS Progress Note-Nurseon 2022 Progress Note-Nurse MHP called to clear patient- instructed safety plan in prog. 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 conversation with [employer] at time of arrival Normal [facility] SEROLOGYOrdered By: Antonio Stevens on 12-06-2022 HCG.beta subunit (U) [Moles/Vol] Negative Normal [facility] Man Sero U BetaHcg Qualon 12-06-2022 HCG.beta subunit (U) [Moles/Vol] Negative Normal [facility] Comment on above: Performed By: #### 2 [id number] #### [facility] [address] [place] [address] U Drug Screenon 12-06-2022 Benzodiazepines Ql (U) Positive Abnormal Negative [facility] Comment on above: Result Comment: Crit ical Result verified by repeat analysis\No confirmation requested by Physican\Unconfirmed by alternate method\Critical Result UD_BENZ:POS Called to [facility] ER by JOEL STEVENS And Read Back For Confirmation at: 12/06/2022 14:42:33 Negative Cutoff: <200 ng/mL Performed By: #### 2 [id number] ####[facility] [address] [place] [address] Tetrahydrocannabinol Screen method >50 ng/mL Ql (U) Positive Abnormal Negative [facility] Comment on above: Result Comment: Crit ical Result verified by repeat analysis\No confirmation requested by Physican\Unconfirmed by alternate method\Critical Result UD_THC:POS Called to [facility] ER by JOEL STEVENS And Read Back For Confirmation at: 12/06/2022 14:42:33 Negative Cutoff: <50 ng/mL Performed By: #### 2 [id number] ####[facility] [address] [place] [address] Amphetamines Screen method >1000 ng/mL Ql (U) Negative Normal Negative [facility] Comment on above: Result Comment: Nega tive Cutoff: <1000 ng/mL Performed By: #### 2 [id number] ####[facility] [address] [place] [address] Barbiturates Screen Ql (U) Negative Normal Negative [facility] Comment on above: Result Comment: Nega tive Cutoff: <200 ng/mL Performed By: #### 2 [id number] ####[address] [address] Cocaine Ql (U) Negative Normal Negative [facility] Comment on above: Result Comment: Nega tive Cutoff: <300 ng/mL Performed By: #### 2 [id number] ####[address] [address] Opiates Screen Ql (U) Negative Normal Negative [facility] Comment on above: Result Comment: Nega tive Cutoff: <300 ng/mL Performed By: #### 2 [id number] ####[place] [id number] Phencyclidine Screen method >25 ng/mL Ql (U) Negative Normal Negative [facility] Comment on above: Result Comment: Nega tive Cutoff: <25 ng/mL These drug screen results are to be used for medical (i.e., treatment) purposes only. Unconfirmed drug screening results must not be used for non-medical purposes (e.g., employment testing, legal testing). Performed By: #### 2 [id number] ####[address] [address] eGFRon 12-06-2022 GFR/1.73 sq M.predicted among non-blacks MDRD (S/P/Bld) [Vol rate/Area] 105 mL/min/1.73 m2 Normal >=59 [facility] Comment on above: Order Comment: Order added by Discern Expert. Result Comment: Rock Crusher Operator dayanna kidney disease could be indicated at eGFR's of less than 60 mL/min/1.73m2. Kidney failure is indicated at less than 15 mL/min/1.73m2. Performed By: #### 2 [id number], [id number] ####[facility] [address] [place] [address] Basic Metabolic Panelon 06-05 Anion gap [Moles/Vol] 11 mmol/L 9 - 17 mmol/L [employer] Calcium [Mass/Vol] 9.5 mg/dL 8.6 - 10. 4 mg/dL [employer] Chloride [Moles/Vol] 103 mmol/L 98 - 10 7 mmol/L [employer] CO2 [Moles/Vol] 27 mmol/L 20 - 31 mmol/L [employer] Creatinine [Mass/Vol] 0.57 mg/dL 0.50 - 0.90 mg/dL [employer] GFR/1.73 sq M.predicted MDRD (S/P/Bld) [Vol rate/Area] - PINF [employer] Comment on above: These results are not intended for use in patients <18 years of age. eGFR results are calculated without a race factor using the 2020 CKD-EPI equation. Careful clinical correlation is recommended, particularly when comparing to results calculated using previous equations. The CKD-EPI equation is less accurate in patients with extremes of muscle mass, extra-renal metabolism of creatine, excessive creatine ingestion, or following therapy that affects renal tubular secretion. Glucose [Mass/Vol] 154 mg/dL High 70 - 99 mg/dL [employer] Interpretation and review of laboratory results Abnormal [employer] Potassium [Moles/Vol] 4.2 mmol/L 3.7 - 5.3 mmol/L [employer] Sodium [Moles/Vol] 141 mmol/L 135 - 144 mmol/L [employer] Urea nitrogen [Mass/Vol] 12 mg/dL 6 - 20 mg/dL [employer] Urea nitrogen/Creatinine (Bld) [Mass ratio] 21 High 9 - 20 [employer] [facility] [employer] Basic Metabolic Profon 06-16 Anion gap [Moles/Vol] 11 mmol/L Normal 9-17 [facility] Comment on above: Performed By: #### H GURPREET HIRSCH, CDP #### [facility] [address] [place] [address] Business Programmer: Zayra Chapman MD BUN/CRE Ratio 21 High 9-20 [facility] Comment on above: Performed By: #### H GURPREET HIRSCH, CDP #### [facility] [address] [place], [place] [id number] Business Programmer: Zayra Chapman MD Calcium [Mass/Vol] 9.5 mg/dL Normal 8.6-10.4 [facility] Comment on above: Performed By: #### H GURPREET HIRSCH, CDP #### [facility] [address] [place] [address] Business Programmer: Zayra Chapman MD Chloride [Moles/Vol] 103 mmol/L Normal 98-107 [facility] Comment on above: Performed By: #### H GURPREET HIRSCH, CDP #### [facility] [address] [place] [address] Business Programmer: Zayra Chapman MD CO2 [Moles/Vol] 27 mmol/L Normal 20-31 [facility] Comment on above: Performed By: #### H GURPREET HIRSCH, CDP #### [facility] [address] [place] [address] Business Programmer: Zayra Chapman MD Creatinine [Mass/Vol] 0.57 mg/dL Normal 0.50-0.90 [facility] Comment on above: Performed By: #### H GURPREET HIRSCH, CDP #### [facility] [address] [place] [address] Business Programmer: Zayra Chapman MD GFR/1.73 sq M.predicted among non-blacks MDRD (S/P/Bld) [Vol rate/Area] mL/min/{1.73_m2} Normal >60 [facility] Comment on above: Result Comment: These results are not intended for use in patients <18 years of age. eGFR results are calculated without a race factor using the 2020 CKD-EPI equation. Careful clinical correlation is recommended, particularly when comparing to results calculated using previous equations. The CKD-EPI equation is less accurate in patients with extremes of muscle mass, extra-renal metabolism of creatine, excessive creatine ingestion, or following therapy that affects renal tubular secretion. Performed By: #### H GURPREET HIRSCH, CDP #### [facility] [address] [place] [address] Business Programmer: Zayra Chapman MD Glucose [Mass/Vol] 154 mg/dL High 70-99 [facility] Comment on above: Performed By: #### H GURPREET HIRSCH, CDP #### [facility] [address] [place] [address] Business Programmer: Zayra Chapman MD Potassium [Moles/Vol] 4.2 mmol/L Normal 3.7-5.3 [facility] Comment on above: Performed By: #### H GURPREET HIRSCH, CDP #### [facility] [address] [place] [address] Business Programmer: Zayra Chapman MD Sodium [Moles/Vol] 141 mmol/L Normal 135-144 [facility] Comment on above: Performed By: #### H GURPREET HIRSCH, CDP #### [facility] [address] [place] [address] Business Programmer: Zayra Chapman MD Urea nitrogen [Mass/Vol] 12 mg/dL Normal 6-20 [facility] Comment on above: Performed By: #### H GURPREET HIRSCH, CDP #### [facility] [address] [place] [address] Business Programmer: Zayra Chapman MD CBC with Auto Differentialon 06-16-2022 Absolute Eos # 0.10 [facility] Absolute Lymph # 1.90 [facility] Absolute Terry # 0.40 [facility] Basophils (Bld) [#/Vol] 0.00 10*3/uL [facility] Basophils/100 WBC (Bld) 1 % 0 - 2 % B ON [facility] Differential Type YES [facility] Eosinophils/100 WBC (Bld) 1 % 0 - 5 % [facility] Hematocrit (Bld) [Volume fraction] 40.3 % 36 - 46 % [facility] Hemoglobin (Bld) [Mass/Vol] 13.0 g/dL 12.0 - 16.0 g/dL [facility] Lymphocytes/100 WBC (Bld) 23 % 15 - 40 % [facility] MCH (RBC) [Entitic mass] 27.2 pg 26 - 34 pg [facility] MCHC (RBC) [Mass/Vol] 32.4 g/dL 31 - 3 7 g/dL [facility] MCV (RBC) [Entitic vol] 84.1 fL 80 - 100 fL [facility] Monocytes/100 WBC (Bld) 5 % 4 - 8 % B ON [facility] Platelet distribution width (Bld) [Ratio] 13.9 % 12.1 - 15.2 % [facility] Platelets (Bld) [#/Vol] 225 10*3/uL [facility] RBC (Bld) [#/Vol] 4.79 10*6/uL 4.0 - 5.2 m/uL [facility] Segmented neutrophils/100 WBC (Bld) 70 % 47 - 75 % [facility] Segs Absolute 5.70 [facility] WBC (Bld) [#/Vol] 8.2 10*3/uL [facility]NOTE 3] CBC with Diffon 06-16-2022 Abs. Basophil 0.00 k/uL Normal 0.0-0.2 [facility] Comment on above: Performed By: #### H CG, BMP, CDP #### [facility] [address] [place] [address] Business Programmer: Zayra Chapman MD Abs.Neutrophil (Seg) 5.70 k/uL Normal 2.5-7.0 [facility] Comment on above: Performed By: #### H GURPREET HIRSCH, CDP #### [facility] [address] [place] [address] Business Programmer: Zayra Chapman MD Auto Diff Performed YES Normal [facility] Comment on above: Performed By: #### H GURPREET HIRSCH, CDP #### [facility] [address] [place] [id number] Business Programmer: Zayra Chapman MD Basophils/100 WBC (Bld) 1 % Normal 0-2 M [facility] Comment on above: Performed By: #### H GURPREET HIRSCH, CDP #### [facility] [address] [place] [id number] Business Programmer: Zayra Chapman MD Eosinophils (Bld) [#/Vol] 0.10 10*3/uL Normal 0.0-0.4 [facility] Comment on above: Performed By: #### H GURPREET HIRSCH, CDP #### [facility] [address] [place] [address] Business Programmer: Zayra Chapman MD Eosinophils/100 WBC (Bld) 1 % Normal 0-5 [facility] Comment on above: Performed By: #### H GURPREET HIRSCH, CDP #### [facility] [address] [place] [address] Business Programmer: Zayra Chapman MD Erythrocyte distribution width (RBC) [Ratio] 13.9 % Normal 12.1-15.2 [facility] Comment on above: Performed By: #### H GURPREET HIRSCH, CDP #### [facility] [address] [place] [address] Business Programmer: Zayra Chapman MD Hematocrit (Bld) [Volume fraction] 40.3 % Normal 36-46 [facility] Comment on above: Performed By: #### H GURPREET HIRSCH, CDP #### [facility] [address] [place] [address] Business Programmer: Zayra Chapman MD Hemoglobin (Bld) [Mass/Vol] 13.0 g/dL Normal 12.0-16.0 [facility] Comment on above: Performed By: #### H GURPREET HIRSCH, CDP #### [facility] [address] [place] [address] Business Programmer: Zayra Chapman MD Lymphocytes (Bld) [#/Vol] 1.90 10*3/uL Normal 1.0-4.8 [facility] Comment on above: Performed By: #### H GURPREET HIRSCH, CDP #### [facility] [address] [place] [address] Business Programmer: Zayra Chapman MD Lymphocytes/100 WBC (Bld) 23 % Normal 15-40 [facility] Comment on above: Performed By: #### H GURPREET HIRSCH, CDP #### [facility] [address] [place] [address] Business Programmer: Zayra Chapman MD MCH (RBC) [Entitic mass] 27.2 pg Normal 26-34 [facility] Comment on above: Performed By: #### H GURPREET HIRSCH, CDP #### [facility] [address] [place] [address] Business Programmer: Zayra Chapman MD MCHC (RBC) [Mass/Vol] 32.4 g/dL Normal 31-37 [facility] Comment on above: Performed By: #### H GURPREET HIRSCH, CDP #### [facility] [address] [place] [address] Business Programmer: Zayra Chapman MD MCV (RBC) [Entitic vol] 84.1 fL Normal 80-100 M [facility] Comment on above: Performed By: #### H GURPREET HIRSCH, CDP #### [facility] [address] [place] [address] Business Programmer: Zayra Chapman MD Monocytes (Bld) [#/Vol] 0.40 10*3/uL Normal 0.0-1.0 [facility] Comment on above: Performed By: #### H CG BMP, CDP #### [facility] [address] [place] [address] Business Programmer: Zayra Chapman MD Monocytes/100 WBC (Bld) 5 % Normal 4-8 M [facility] Comment on above: Performed By: #### H CG BMP, CDP #### [facility] [address] [place] [address] Business Programmer: Zayra Chapman MD Neutrophil (Seg) 70 % Normal 47-75 [facility] Comment on above: Performed By: #### H GURPREET HIRSCH, CDP #### [facility] [address] [place] [address] Business Programmer: Zayra Chapman MD Platelets (Bld) [#/Vol] 225 10*3/uL Normal 140-450 [facility] Comment on above: Performed By: #### H GURPREET HIRSCH, CDP #### [facility] [address] [place] [address] Business Programmer: Zayra Chapman MD RBC (Bld) [#/Vol] 4.79 10*6/uL Normal 4.0-5.2 [facility] Comment on above: Performed By: #### H GURPREET HIRSCH, CDP #### [facility] [address] [place] [address] Business Programmer: Zayra Chapman MD WBC (Bld) [#/Vol] 8.2 10*3/uL Normal 3.5-11.0 [facility] Comment on above: Performed By: #### H GURPREET HIRSCH, CDP #### [facility] [address] [place] [address] Business Programmer: Zayra Chapman MD CT HEAD WO CONTRASTon 2022 CT HEAD WO CONTRAST EXAM: CT HEAD WO CONTRAST 06/16/2022 2:34 AM EST [facility] CLINICAL STATEMENT: Has a code stroke or stroke alert been called?->No COMPARISON: No prior studies are available at the time of dictation. TECHNIQUE: Multiple axial images were obtained of the brain without intravenous contrast. Dose reduction techniques were achieved by using automated exposure control and/or adjustment of mA and/or kV according to patient size and/or use of iterative reconstruction technique. 2-D reconstructed images are provided. FINDINGS: The ventricles and the cortical sulci have normal size contour and symmetry. There is no evidence for intracranial hemorrhage. There is no mass effect and or midline shift. No extra-axial collections. Limited evaluation of the orbits and the paranasal sinuses are normal. IMPRESSION: No acute intracranial abnormality. FOLLOW-UP: Follow-up as clinically indicated. Interpreted by: Trang Mcgregor MD Signed by: Trang Mcgregor MD 06/16/22 Final result Normal [facility] No acute intracranial abnormality. FOLLOW-UP: Follow-up as clinically indicated. [facility] EXAM: CT HEAD WO CONTRAST 06/16/2022 2:34 AM EST [facility] CLINICAL STATEMENT: Has a code stroke or stroke alert been called?->No COMPARISON: No prior studies are available at the time of dictation. TECHNIQUE: Multiple axial images were obtained of the brain without intravenous contrast. Dose reduction techniques were achieved by using automated exposure control and/or adjustment of mA and/or kV according to patient size and/or use of iterative reconstruction technique. 2-D reconstructed images are provided. FINDINGS: The ventricles and the cortical sulci have normal size contour and symmetry. There is no evidence for intracranial hemorrhage. There is no mass effect and or midline shift. No extra-axial collections. Limited evaluation of the orbits and the paranasal sinuses are normal. [facility] Trang Mcgregor MD - 06/16/2022 EXAM: CT HEAD WO CONTRAST 06/16/2022 2:34 AM EST [facility] CLINICAL STATEMENT: Has a code stroke or stroke alert been called?->No COMPARISON: No prior studies are available at the time of dictation. TECHNIQUE: Multiple axial images were obtained of the brain without intravenous contrast. Dose reduction techniques were achieved by using automated exposure control and/or adjustment of mA and/or kV according to patient size and/or use of iterative reconstruction technique. 2-D reconstructed images are provided. FINDINGS: The ventricles and the cortical sulci have normal size contour and symmetry. There is no evidence for intracranial hemorrhage. There is no mass effect and or midline shift. No extra-axial collections. Limited evaluation of the orbits and the paranasal sinuses are normal. IMPRESSION: No acute intracranial abnormality. FOLLOW-UP: Follow-up as clinically indicated. [employer] Work Phone: Radiology Study observation (narrative) JULIANO PADILLA [employer] Work Phone: CT HEAD WO CONTRASTOrdered B y: Trang Said on 06-16-2022 [employer] Work Phone: HCG Qualitative, Serumon hCG Qual Negative NEGATIVE [facility] [employer] Comment on above: Specimens with hCG l evels near the threshold of the test (25 mIU/mL) may give a negative or indeterminate result. In such cases, another test should be performed with a new specimen in 48-72 hours. If early is suspected clinically in this setting, correlation with quantitative serum b-hCG level is suggested. [employer] has confirmed the use of plasma for this test. This has not been cleared or approved by the U.S. Food and Drug Administration. The FDA has determined that such clearance is not necessary. [facility] [employer] HCG Screen, Bloodon 06-16-19 23 HCG Screen, Blood Negative Normal NEG [facility] Comment on above: Result Comment: Spec imens with hCG levels near the threshold of the test (25 mIU/mL) may give a negative or indeterminate result. In such cases, another test should be performed with a new specimen in 48-72 hours. If early is suspected clinically in this setting, correlation with quantitative serum b-hCG level is suggested. [employer] has confirmed the use of plasma for this test. This has not been cleared or approved by the U.S. Food and Drug Administration. The FDA has determined that such clearance is not necessary. Performed By: #### H CG, BMP, CDP #### [facility] [address] [place] [address] Business Programmer: Zayra Chapman MD Urinalysison 06-16-2022 Bilirubin Urine Negative NEGATIVE [facility] Color, UA Yellow Yellow [facility] Glucose Auto test strip (U) [Mass/Vol] Negative NEGATIVE [facility] Interpretation and review of laboratory results Abnormal [facility] Ketones (U) [Mass/Vol] Negative NEGATIVE [facility] Leukocyte esterase Auto test strip Ql (U) Negative NEGATIVE [facility] Nitrite Auto test strip Ql (U) Negative NEGATIVE [facility] Protein (U) [Mass/Vol] 7.0 mg/dL 5.0 - 8.0 [facility] Protein (U) [Mass/Vol] TRACE Abnormal NEGATIVE [facility] Specific [place], UA 1.005 1.005 - 1.030 [facility] Turbidity UA Clear Clear [facility] Urinalysis Comments [facility] Urine Hgb Negative NEGATIVE [facility] Urobilinogen, Urine Normal Normal [facility] Urinalysis, Routineon 2022 Bilirubin, SemiQt,Ur Negative Normal NEG [facility] Comment on above: Performed By: #### U A #### [facility] [address] [place] [address] Business Programmer: Zayra Chapman MD Blood, Urine Negative Normal NEG [facility] Comment on above: Performed By: #### U A #### [facility] [address] [place] [address] Business Programmer: Zayra Chapman MD Clarity (U) Clear Normal CLEAR [facility] Comment on above: Performed By: #### U A #### [facility] [address] [place] [address] Business Programmer: Zayra Chapman MD Color (U) Yellow [facility] Comment on above: Performed By: #### U A #### [facility] [address] [place] [address] Business Programmer: Zayra Chapman MD Comment Normal [facility] Comment on above: Performed By: #### U A #### [facility] [address] [place] [address] Business Programmer: Zayra Chapman MD Glucose Ql (U) Negative Normal NEG [facility] Comment on above: Performed By: #### U A #### [facility] [address] [place] [address] Business Programmer: Zayra Chapman MD Ketones Ql (U) Negative Normal NEG [facility] Comment on above: Performed By: #### U A #### [facility] [address] [place] [address] Business Programmer: Zayra Chapman MD Leukocyte esterase Test strip Ql (U) Negative Normal NEG [facility] Comment on above: Performed By: #### U A #### [facility] [address] [place] [address] Business Programmer: Zayra Chapman MD Nitrite,Ur Negative Normal NEG [facility] Comment on above: Performed By: #### U A #### [facility] [address] [place] [address] Business Programmer: Zayra Chapman MD PH,Ur 7.0 Normal 5.0-8.0 [facility] Comment on above: Performed By: #### U A #### [facility] [address] [place] [address] Business Programmer: Zayra Chapman MD Protein Ql (U) TRACE Abnormal NEG [facility] Comment on above: Performed By: #### U A #### [facility] [address] [place] [address] Business Programmer: Zayra Chapman MD Spec. [place],Ur 1.005 Normal 1.005-1.030 [facility] Comment on above: Performed By: #### U A #### [facility] [address] [place], [place] [id number] Business Programmer: Zayra Chapman MD Urobilinogen,Ur Normal Normal NORM [facility] Comment on above: Performed By: #### U A #### [facility] [address] [place] [address] Business Programmer: Zayra Chapman MD XR LUMBAR SPINE (MIN 4 VIEWS )on 03-13-2022 No degenerative change, discitis or fracture. [facility] EXAM: XR LUMBAR SPIN E (MIN 4 VIEWS) HISTORY: Reason for exam:->midline low back pain [facility] Quinn Roberto Jr., MD - 03/13/2022 EXAM: XR LUMBAR SPINE (MIN 4 VIEWS) HISTORY: Reason for exam:->midline low back pain IMPRESSION: No degenerative change, discitis or fracture. [facility] Work Phone: Radiology Study observation (narrative) [facility] [employer] [facility] [employer] Phone: XR LUMBAR SPINE (MIN 4 VIEWS )Ordered By: Quinn Roberto on 03-13-2022 [facility] Work Phone: CBC AUTO DIFFon 10-04-2021 BASO # 0.0 103/ul Normal 0.0-0.1 [facility] Comment on above: Performed By: #### H H #### [facility] [address] [address] [address] Ramya Ramey Basophils/100 WBC (Bld) 0.2 % Normal 0.2-2.0 [facility] Comment on above: Performed By: #### H H #### [facility] [address] [place], [place] [address] Dr. Ramya Ramey EO # 0.1 103/ul Normal 0.0-0.7 [facility] Comment on above: Performed By: #### H H #### [facility] [address] [place] [address] Dr. Ramya Ramey Eosinophils/100 WBC (Bld) 0.7 % Critically low 0.9-7.0 [facility] Comment on above: Performed By: #### H H #### [facility] [address] [place] [address] Dr. Ramya Ramey Erythrocyte distribution width (RBC) [Ratio] 13.4 % Normal 11.0-15.0 [facility] Comment on above: Performed By: #### H H #### [facility] [address] [place] [address] Dr. Ramya Ramey Hematocrit (Bld) [Volume fraction] 29.4 % Critically low 36.0-48.0 [facility] Comment on above: Performed By: #### H H #### [facility] [address] [place] [address] Dr. Ramya Ramey Hemoglobin (Bld) [Mass/Vol] 9.5 g/dL Critically low 12.0-16.0 [facility] Comment on above: Performed By: #### H H #### [facility] [address] [place] [address] Dr. Ramya Ramey IG # 0.06 10e3/ul Critically high 0.00-0.03 [facility] Comment on above: Performed By: #### H H #### [facility] [address] [place] [address] Dr. Ramya Ramey IG % 0.5 % Normal 0.0-0.5 [facility] Comment on above: Performed By: #### H H #### [facility] [address] [place] [address] Dr. Ramya Ramey LYMPH # 1.3 103/ul Normal 1.2-3.8 [facility] Comment on above: Performed By: #### H H #### [facility] [address] [place] [address] Dr. Ramya Ramey Lymphocytes/100 WBC (Bld) 11.5 % Critically low 20.5-60.0 [facility] Comment on above: Performed By: #### H H #### [facility] [address] [place] [address] [address] Ramya Ramey MANUAL DIFF REQ NO Normal [facility] Comment on above: Performed By: #### H H #### [facility] [address] [place] [address] Dr. Ramya Ramey MCH (RBC) [Entitic mass] 28.4 pg Normal 26.7-34.0 [facility] Comment on above: Performed By: #### H H #### [facility] [address] [place] [address] Dr. Ramya Ramey MCHC (RBC) [Mass/Vol] 32.3 g/dL Normal 29.9-35.2 [facility] Comment on above: Performed By: #### H H #### [facility] [address] [place] [address] Dr. Ramya Ramey MCV (RBC) [Entitic vol] 88.0 fL Normal 81.0-99.0 [facility] Comment on above: Performed By: #### H H #### [facility] [address] [place] [address] Dr. Ramya Ramey MONO # 0.7 103/ul Normal 0.3-0.8 [facility] Comment on above: Performed By: #### H H #### [facility] [address] [place] [address] Dr. Ramya Ramey Monocytes/100 WBC (Bld) 5.9 % Normal 1.7-12.0 [facility] Comment on above: Performed By: #### H H #### [facility] [address] [place] [address] Dr. Ramya Ramey NEUT # 9.4 103/ul Critically high 1.4-6.5 [facility] Comment on above: Performed By: #### H H #### [facility] [address] [place] [address] Dr. Ramya Ramey Neutrophils/100 WBC (Bld) 81.2 % Critically high 43.0-75.0 [facility] Comment on above: Performed By: #### H H #### [facility] [address] [address] [address] Ramya Ramey Platelet mean volume (Bld) [Entitic vol] 11.9 fL Normal 9.5-13.5 [facility] Comment on above: Performed By: #### H H #### [facility] [address] [address] [address] Ramya Ramey PLT 162 103/ul Normal 150-450 [facility] Comment on above: Performed By: #### H H #### [facility] [address] [address] [address] Ramya Ramey RBC 3.34 106/ul Critically low 4.20-5.40 [facility] Comment on above: Performed By: #### H H #### [facility] [address] [address] [address] Ramya Ramey WBC 11.5 103/ul Critically high 4.0-11.0 [facility] Comment on above: Performed By: #### H H #### [facility] [address] [place] [address] Dr. Ramya Ramey CBC AUTO DIFFon 10-03-2021 BASO # 0.0 103/ul Normal 0.0-0.1 [facility] Comment on above: Performed By: #### H H #### [facility] [address] [address] [address] Ramya Ramey Basophils/100 WBC (Bld) 0.2 % Normal 0.2-2.0 [facility] Comment on above: Performed By: #### H H #### [facility] [address] [address] [address] Ramya Ramey EO # 0.1 103/ul Normal 0.0-0.7 [facility] Comment on above: Performed By: #### H H #### [facility] [address] [address] [address] Ramya Ramey Eosinophils/100 WBC (Bld) 0.9 % Normal 0.9-7.0 [facility] Comment on above: Performed By: #### H H #### [facility] [address] [address] [address] Ramya Ramey Erythrocyte distribution width (RBC) [Ratio] 13.3 % Normal 11.0-15.0 [facility] Comment on above: Performed By: #### H H #### [facility] [address] [address] [address] Ramya Ramey Hematocrit (Bld) [Volume fraction] 34.8 % Critically low 36.0-48.0 [facility] Comment on above: Performed By: #### H H #### [facility] [address] [place] [address] Dr. Ramya Ramey Hemoglobin (Bld) [Mass/Vol] 11.2 g/dL Critically low 12.0-16.0 [facility] Comment on above: Performed By: #### H H #### [facility] [address] [place] [address] Dr. Ramya Ramey IG # 0.07 10e3/ul Critically high 0.00-0.03 [facility] Comment on above: Performed By: #### H H #### [facility] [address] [place] [address] Dr. Ramya Ramey IG % 0.6 % Critically high 0.0-0.5 [facility] Comment on above: Performed By: #### H H #### [facility] [address] [place] [address] Dr. Ramya Ramey LYMPH # 1.5 103/ul Normal 1.2-3.8 [facility] Comment on above: Performed By: #### H H #### [facility] [address] [place] [address] Dr. Ramya Ramey Lymphocytes/100 WBC (Bld) 13.4 % Critically low 20.5-60.0 [facility] Comment on above: Performed By: #### H H #### [facility] [address] [place] [address] Dr. Ramya Ramey MANUAL DIFF REQ NO Normal [facility] Comment on above: Performed By: #### H H #### [facility] [address] [address] [address] Ramya Ramey MCH (RBC) [Entitic mass] 28.3 pg Normal 26.7-34.0 [facility] Comment on above: Performed By: #### H H #### [facility] [address] [address] [address] Ramya Ramey MCHC (RBC) [Mass/Vol] 32.2 g/dL Normal 29.9-35.2 [facility] Comment on above: Performed By: #### H H #### [facility] [address] [address] [address] Ramya Ramey MCV (RBC) [Entitic vol] 87.9 fL Normal 81.0-99.0 [facility] Comment on above: Performed By: #### H H #### [facility] [address] [place] [address] Dr. Ramya Ramey MONO # 0.5 103/ul Normal 0.3-0.8 [facility] Comment on above: Performed By: #### H H #### [facility] [address] [place] [address] Dr. Ramya Ramey Monocytes/100 WBC (Bld) 4.8 % Normal 1.7-12.0 [facility] Comment on above: Performed By: #### H H #### [facility] [address] [place] [address] Dr. Ramya Ramey NEUT # 8.9 103/ul Critically high 1.4-6.5 [facility] Comment on above: Performed By: #### H H #### [facility] [address] [place] [address] Dr. Ramya Ramey Neutrophils/100 WBC (Bld) 80.1 % Critically high 43.0-75.0 [facility] Comment on above: Performed By: #### H H #### [facility] [address] [place] [address] Dr. Ramya Ramey Platelet mean volume (Bld) [Entitic vol] 11.8 fL Normal 9.5-13.5 [facility] Comment on above: Performed By: #### H H #### [facility] [address] [address] [address] Ramya Ramey PLT 194 103/ul Normal 150-450 [facility] Comment on above: Performed By: #### H H #### [facility] [address] [place], [place] [address] Dr. Ramya Ramey RBC 3.96 106/ul Critically low 4.20-5.40 [facility] Comment on above: Performed By: #### H H #### [facility] [address] [id number] Ramya Ramey WBC 11.1 103/ul Critically high 4.0-11.0 [facility] Comment on above: Performed By: #### H H #### [facility] [address] [address] [address] Ramya Ramey Covid-19 PCR ([facility])on SARS-CoV-2 (COVID-19) RNA JAKE+probe Ql (Unsp spec) Not detected Normal NOT DETECTED [facility] Comment on above: Result Comment: When diagnostic testing is negative, the possibility of a false negative should be considered in the context of a patient's recent exposures and the presence of clinical signs and symptoms consistent with SARS-CoV-2. This test is not yet approved or cleared by the [place] FDA. When there are no FDA-approved or cleared tests available, and other criteria are met, FDA can make tests available under an emergency access mechanism called an Emergency Use Authorization (EUA). The EUA for this test is supported by the Bariatric Nurse of Health and Human Service's declaration that circumstances exist to justify the emergency use of in vitro diagnostics for the detection and/or diagnosis of the virus that causes COVID-19. This EUA will remain in effect for the duration of the COVID-19 declaration justifying emergency of IVDs, unless it is terminated or revoked by the FDA (after which the test may no longer be used). Performed By: #### H H #### [facility] [address] [address] [address] Ramya Ramey DRUG SCREEN RAPID (URINE)on 10-03-2021 AMP Negative Normal NEGATIVE [facility] Comment on above: Performed By: #### H H #### [facility] [address] [address] [address] Ramya Ramey BAR Negative Normal NEGATIVE [facility] Comment on above: Performed By: #### H H #### [facility] [address] [place] [address] Dr. Ramya Ramey BUP Negative Normal NEGATIVE [facility] Comment on above: Performed By: #### H H #### [facility] [address] [place] [address] Dr. Ramya Ramey BZO Negative Normal NEGATIVE [facility] Comment on above: Performed By: #### H H #### [facility] [address] [place] [address] Dr. Ramya Ramey ANIBAL Negative Normal NEGATIVE [facility] Comment on above: Performed By: #### H H #### [facility] [address] [place] [address] Dr. Ramya Ramey CUT-OFFS SEE BELOW Normal [facility] Comment on above: Result Comment: AMP (Amphetamine): 500ng/mL, BAR (Barbituates): 200 ng/mL, BZO (Benzodiazepines): 150 ng/mL, BUP (Buprenorphine): 10 ng/mL, ANIBAL (Cocaine): 150 ng/mL, mAMP (Methamphetamine): 500 ng/mL, MTD (Methadone): 200 ng/mL, OPI (Opiates): 100 ng/mL, OXY (Oxycodone): 100 ng/mL, PCP (Phencyclidine): 25 ng/mL, PPX (Propoxyphene): 300 ng/mL, THC (Cannabinoids): 50 ng/mL, TCA (Trycyclic Antidepressants): 300 ng/mL Performed By: #### H H #### [facility] [address] [place] [address] Dr. Ramya Ramey DRUG CUT HEADER DRUG CLASS TEST SYSTEM CUT-OFF CONCENTRATIONS ARE FOLLOWS: Normal [facility] Comment on above: Performed By: #### H H #### [facility] [address] [place] [address] Dr. Ramya Ramey mAMP Negative Normal NEGATIVE [facility] Comment on above: Performed By: #### H H #### [facility] [address] [address] [address] Ramya Ramey MTD Negative Normal NEGATIVE [facility] Comment on above: Performed By: #### H H #### [facility] [address] [address] [address] Ramya Ramey OPI Negative Normal NEGATIVE [facility] Comment on above: Performed By: #### H H #### [facility] [address] [address] [address] Ramya Ramey OXY Negative Normal NEGATIVE [facility] Comment on above: Performed By: #### H H #### [facility] [address] [address] [address] Ramya Ramey PCP Negative Normal NEGATIVE [facility] Comment on above: Performed By: #### H H #### [facility] [address] [place] [address] Dr. Ramya Ramey PPX Negative Normal NEGATIVE [facility] Comment on above: Performed By: #### H H #### [facility] [address] [address] [address] Ramya Ramey TCA Negative Normal NEGATIVE [facility] Comment on above: Performed By: #### H H #### [facility] [address] [place] [address] Dr. Ramya Ramey THC Negative Normal NEGATIVE [facility] Comment on above: Performed By: #### H H #### [facility] [address] [place] [address] Dr. Ramya Ramey POINT OF CARE GLUCOSEon Glucose [Mass/Vol] 126 mg/dL Critically high 74-106 [facility] Comment on above: Performed By: #### P OCGLUC #### [facility] [address] [place] [address] Dr. Ramya Ramey TYPE AND SCREENon 10-03-2021 TYPE AND SCREEN Negative Normal [facility] Comment on above: Performed By: #### P OCGLUC #### [facility] [address] [place] [address] Dr. Ramya Ramey CULTURE URINEon 10-01-2021 CULTURE URINE Culture Observations : LIGHT GROWTH OF MIXED GENITAL LEANA. NO POTENTIAL PATHOGENS SEEN. Normal [facility] Comment on above: Performed By: #### P OCGLUC #### [facility] [address] [place] [address] Dr. Ramya Ramey POINT OF CARE GLUCOSEon 09-04 Glucose [Mass/Vol] 134 mg/dL Critically high 74-106 [facility] Comment on above: Performed By: #### P OCGLUC #### [facility] [address] [place] [address] Dr. Ramya Ramey UA (CLEAN/CATCH) DRAFTER DIRECTIONAL SURVEY/MICRO I F IND.on 10-01-2021 Bilirubin Ql (U) Negative Normal NEGATIVE [facility] Comment on above: Performed By: #### U ACSIND, UMICRO #### [facility] [address] [place] [address] Dr. Ramya Ramey Clarity (U) CLEAR Normal CLEAR [facility] Comment on above: Performed By: #### U ACSIND, UMICRO #### [facility] [address] [place] [address] Dr. Ramya Ramey Color (U) YELLOW Normal YELLOW [facility] Comment on above: Performed By: #### U ACSIND, UMICRO #### [facility] [address] [place] [address] Dr. Ramya Ramey Glucose Ql (U) Negative Normal NEGATIVE [facility] Comment on above: Performed By: #### U ACSIND, UMICRO #### [facility] [address] [place] [address] Dr. Ramya Ramey Hemoglobin Ql (U) Negative Normal NEGATIVE [facility] Comment on above: Performed By: #### U ACSIND, UMICRO #### [facility] [address] [place] [address] Dr. Ramya Ramey Ketones Ql (U) Negative Normal NEGATIVE [facility] Comment on above: Performed By: #### U ACSIND, UMICRO #### [facility] [address] [place] [address] Dr. Ramya Ramey LEUKOCYTES LARGE Abnormal NEGATIVE [facility] Comment on above: Performed By: #### U ACSIND, UMICRO #### [facility] [address] [place] [address] Dr. Ramya Ramey Nitrite Ql (U) Negative Normal NEGATIVE [facility] Comment on above: Performed By: #### U ACSIND, UMICRO #### [facility] [address] [address] [address] Ramya Ramey pH (U) 6.5 [pH] Normal 5-9 [facility] Comment on above: Performed By: #### U ACSIND, UMICRO #### [facility] [address] [place] [address] Dr. Ramya Ramey SPEC GRAVITY 1.010 Normal 1.005-<=1.0 25 [facility] Comment on above: Performed By: #### U ACSIND, UMICRO #### [facility] [address] [place] [address] Dr. Ramya Ramey UA PROTEIN Negative Normal NEGATIVE/ TRACE [facility] Comment on above: Performed By: #### U ACSIND, UMICRO #### [facility] [address] [address] [address] Ramya Ramey UR MICRO IND INDICATED Normal [facility] Comment on above: Performed By: #### U ACSIND, UMICRO #### [facility] [address] [place] [address] Dr. Ramya Ramey Urobilinogen Qn (U) 0.2 {Sariah'U}/dL Normal 0.2 - 1. 0 [facility] Comment on above: Performed By: #### U ACSIND, UMICRO #### [facility] [address] [address] [address] Ramya Ramey URINE MICROSCOPIC ONLYon BACTERIA LARGE Abnormal NONE SEEN [facility] Comment on above: Performed By: #### U ACSIND, UMICRO #### [facility] [address] [place] [address] Dr. Ramya Ramey Bacteria identified Cx Nom (U) INDICATED Normal [facility] Comment on above: Performed By: #### U ACSIND, UMICRO #### [facility] [address] [address] [address] Ramya Ramey CAST NONE SEEN Normal NONE SEEN [facility] Comment on above: Performed By: #### U ACSIND, UMICRO #### [facility] [address] [address] [address] Ramya Ramey Crystals LM Nom (Urine sed) NONE SEEN Normal NONE SEEN [facility] Comment on above: Performed By: #### U ACSIND, UMICRO #### [facility] [address] [address] [address] Ramya Ramey Epithelial cells LM Ql (Urine sed) MANY Abnormal NONE SEEN /RARE [facility] Comment on above: Performed By: #### U ACSCLOVER, UMICRO #### [facility] [address] [place] [address] Dr. Ramya Ramey MUCOUS TRACE Abnormal NONE SEEN [facility] Comment on above: Performed By: #### U ACSCLOVER, UMICRO #### [facility] [address] [place] [address] Dr. Ramya Ramey RBC 5-10 Abnormal 0-2 [facility] Comment on above: Performed By: #### U ACSCLOVER, UMICRO #### [facility] [address] [place] [address] Dr. Ramya Ramey WBC 75-100 Abnormal NONE SEEN [facility] Comment on above: Performed By: #### U ACSCLOVER, UMICRO #### [facility] [address] [place] [address] Dr. Ramya Ramey GROUP B STREP CULTUREon 09-03 S. agalactiae Ag Ql (Unsp spec) Culture Observations: Group B Strep called to Kaylen Rothman LPN at office 10/02/21 @0830 bl Isolate 1 Streptococcus agalactiae Light growth of ORGANISM 1 Streptococcus agalactiae ANTIBIOTIC M.I.C RX STATUS Benzylpenicillin <=0.06 S F Ampicillin <=0.25 S F Cefotaxime <=0.12 S F Ceftriaxone <=0.12 S F Levofloxacin 0.5 S F Inducible Clindamycin Resistance Neg NEG F Erythromycin >=8 R F Clindamycin >=1 R F Linezolid <=2 S F Vancomycin 0.5 S F Tetracycline >=16 R F Normal [facility] Comment on above: Performed By: #### G BSCX #### [facility] [address] [place] [address] Dr. Ramya Ramey US PREG BIOPHY W NON STRESSo n 09-26-2021 US PREG BIOPHY W NON STRESS EXAMINATION: US PREG BIOPHY W NON STRESS HISTORY: Gestational diabetes mellitus COMPARISON: Ultrasound biophysical 09/19/2021 TECHNIQUE: Ultrasound biophysical profile was performed. FINDINGS: BREATHING MOVEMENTS: 2.0 GROSS BODY MOVEMENTS: 2.0 TONE: 2.0 QUALITATIVE AMNIOTIC FLUID VOLUME: 2.0 PRESENTATION: Cephalic HEART RATE: 148.4 bpm bpm. AMNIOTIC FLUID VOLUME: 12.5 cm GESTATIONAL AGE: 36 weeks 3 days CONCLUSION: Total biophysical profile score 8.0. Electronically authenticated by: MARY CRAFT Date: 2021-09-26 10:40 Normal [facility] US PREG GROWTHon 09-26-2021 US PREG GROWTH EXAMINATION: US PREG GROWTH HISTORY: Gestational diabetes mellitus COMPARISON: Ultrasound growth 08/29/2021 FINDINGS: Heart Rate: 148.4 bpm Number: 1.0 Position: Cephalic Amniotic Fluid Volume: 12.5 cm Maximum Vertical Pocket: 5.7 cm BIOMETRY: BPD: 8.7 cm cm; 35 weeks 2 days; 27% HC: 31.7 cmcm; 35 weeks 4 days; 9% AC: 33.7 cm cm; 37 weeks 4 days; 88% FL: 6.8 cm cm; 34 weeks 5 days; 11% EFW: 2933.7 grams; 53% FL/AC: 20.0 FL/BPD: 77.4 HC/AC: 0.9 GESTATIONAL AGE: Age by EDC: 36 weeks 3 days JOSI by EDC: 10/21/2021 Age by US: 35 weeks, 6 days JOSI by US: 10/25/2021 IMPRESSION: 1. Single live intrauterine with growth detailed above. Electronically authenticated by: MARY CRAFT Date: 2021-09-26 10:42 Normal [facility] US PREG BIOPHY W NON STRESSo n 09-20-2021 US PREG BIOPHY W NON STRESS EXAMINATION: US PREG BIOPHY W NON STRESS HISTORY: Gestational diabetes mellitus COMPARISON: 09/12/2021 TECHNIQUE: Ultrasound biophysical profile was performed in the radiology department. non-reactive stress testing was performed by nursing staff in the birthing center. FINDINGS: BREATHING MOVEMENTS: 2.0 GROSS BODY MOVEMENTS: 2.0 TONE: 2.0 QUALITATIVE AMNIOTIC FLUID VOLUME: 2.0 PRESENTATION: CEPHALIC HEART RATE: 141.4 bpm H.B./min AMNIOTIC FLUID VOLUME: 14.9 cm cm GESTATIONAL AGE: 35 weeks 3 days CONCLUSION: Total biophysical profile score: 8.0 Electronically authenticated by: ZAYRA ORTIZ Date: 2021-09-20 07:12 Normal [facility] US PREG BIOPHY W NON STRESSo n 09-12-2021 US PREG BIOPHY W NON STRESS EXAMINATION: US PREG BIOPHY W NON STRESS HISTORY: Gestational diabetes mellitus COMPARISON: Ultrasound biophysical 09/05/2021 TECHNIQUE: Ultrasound biophysical profile was performed. FINDINGS: BREATHING MOVEMENTS: 2.0 GROSS BODY MOVEMENTS: 2.0 TONE: 2.0 QUALITATIVE AMNIOTIC FLUID VOLUME: 2.0 PRESENTATION: CEPHALIC HEART RATE: 159.8 bpm bpm. AMNIOTIC FLUID VOLUME: 16.8 cm GESTATIONAL AGE: 34 weeks 3 days CONCLUSION: Total biophysical profile score 8.0. Electronically authenticated by: MARY CRAFT Date: 2021-09-12 16:24 Normal [facility] US PREG BIOPHY W NON STRESSo n 09-05-2021 US PREG BIOPHY W NON STRESS EXAMINATION: US PREG BIOPHY W NON STRESS HISTORY: Gestational diabetes mellitus COMPARISON: Ultrasound biophysical 08/30/2021 TECHNIQUE: Ultrasound biophysical profile was performed. FINDINGS: BREATHING MOVEMENTS: 2.0 GROSS BODY MOVEMENTS: 2.0 TONE: 2.0 QUALITATIVE AMNIOTIC FLUID VOLUME: 2.0 PRESENTATION: CEPHALIC HEART RATE: 129.8 bpm bpm. AMNIOTIC FLUID VOLUME: 16.7 cm GESTATIONAL AGE: 33 weeks 3 days CONCLUSION: Total biophysical profile score 8.0. Electronically authenticated by: MARY CRAFT Date: 2021-09-05 16:47 Normal [facility] US PREG BIOPHY W NON STRESSo n 08-31-2021 US PREG BIOPHY W NON STRESS EXAMINATION: US PREG BIOPHY W NON STRESS HISTORY: Gestational diabetes mellitus COMPARISON: No relevant comparison available. TECHNIQUE: Ultrasound biophysical profile was performed in the radiology department. FINDINGS: BREATHING MOVEMENTS: 2.0 GROSS BODY MOVEMENTS: 2.0 TONE: 2.0 QUALITATIVE AMNIOTIC FLUID VOLUME: 2.0 PRESENTATION: CEPHALIC HEART RATE: 154.3 bpm H.B./min AMNIOTIC FLUID VOLUME: 12.1 cm cm GESTATIONAL AGE: 32 weeks 4 days CONCLUSION: Total biophysical profile score: 8.0 Electronically authenticated by: ZAYRA ORTIZ Date: 2021-08-31 07:14 Normal [facility] US PREG BIOPHY W NON STRESSo n 08-30-2021 US PREG BIOPHY W NON STRESS EXAMINATION: US PREG BIOPHY W NON STRESS HISTORY: Gestational diabetes mellitus COMPARISON: No relevant comparison available. TECHNIQUE: Ultrasound biophysical profile was performed in the radiology department. FINDINGS: BREATHING MOVEMENTS: 0.0 GROSS BODY MOVEMENTS: 2.0 TONE: 2.0 QUALITATIVE AMNIOTIC FLUID VOLUME: 2.0 PRESENTATION: CEPHALIC HEART RATE: 142.9 bpm H.B./min AMNIOTIC FLUID VOLUME: 13.1 cm cm GESTATIONAL AGE: 32 weeks 3 days CONCLUSION: Total biophysical profile score: 6.0 Electronically authenticated by: ZAYRA ORTIZ Date: 2021-08-30 07:11 Normal [facility] US PREG GROWTHon 08-30-2021 US PREG GROWTH EXAMINATION: US PREG GROWTH HISTORY: Gestational diabetes mellitus COMPARISON: No relevant comparison available. FINDINGS: Heart Rate: 142.9 bpm Amniotic Fluid Volume: 13.1 cm Number: 1.0 Position: Cephalic presentation, longitudinal lie Maximum Vertical Pocket: 4.0 cm cm 4.3 cm cm 2.5 cm cm 2.3 cm cm BIOMETRY: BPD: 8.4 cm cm; 33 weeks 5 days; 79% HC: 30.5 cmcm; 33 weeks 6 days, 52% AC: 30.1 cm cm; 34 weeks 0 days, 89% FL: 6.2 cm cm; 32 weeks 0 days; 25.7 % % EFW: 2191.7 grams, 4 lbs. 13 oz., 72% FL/AC: 20.5 FL/BPD: 73.6 HC/AC: 1.0 GESTATIONAL AGE: Age by EDC: 32 weeks 3 days JOSI by EDC: 10/21/2021 Age by US: 33 weeks 3 days JOSI by US: 10/14/2021 IMPRESSION: Normal interval growth Electronically authenticated by: ZAYRA ORTIZ Date: 2021-08-30 07:10 Normal [facility] CULTURE URINEon 08-24-2021 CULTURE URINE Culture Observations : MODERATE GROWTH OF MIXED GENITAL LEANA. NO POTENTIAL PATHOGENS SEEN. Normal [facility] Comment on above: Performed By: #### P OCGLUC #### [facility] [address] [place] [address] Dr. Ramya Ramey POINT OF CARE GLUCOSEon 08-04 Glucose [Mass/Vol] 132 mg/dL Critically high 74-106 T [facility] Comment on above: Performed By: #### H H #### [facility] [address] [place] [address] Dr. Ramya Ramey UA (CLEAN/CATCH) DRAFTER DIRECTIONAL SURVEY/MICRO I F IND.on 08-24-2021 Bilirubin Ql (U) Negative Normal NEGATIVE [facility] Comment on above: Performed By: #### U ACSIND, UMICRO #### [facility] [address] [place] [address] Dr. Ramya Ramey Clarity (U) CLEAR Normal CLEAR [facility] Comment on above: Performed By: #### U ACSIND, UMICRO #### [facility] [address] [place] [address] Dr. Ramya Ramey Color (U) YELLOW Normal YELLOW [facility] Comment on above: Performed By: #### U ACSIND, UMICRO #### [facility] [address] [place] [address] Dr. Ramya Ramey Glucose Ql (U) 250 mg/dl Abnormal NEGATIVE [facility] Comment on above: Performed By: #### U ACSIND, UMICRO #### [facility] [address] [place] [address] Dr. Ramya Ramey Hemoglobin Ql (U) TRACE-INTACT Abnormal NEGATIVE [facility] Comment on above: Performed By: #### U ACSIND, UMICRO #### [facility] [address] [place] [address] Dr. Ramya Ramey Ketones Ql (U) Negative Normal NEGATIVE [facility] Comment on above: Performed By: #### U ACSIND, UMICRO #### [facility] [address] [place] [address] Dr. Ramya Ramey LEUKOCYTES MODERATE Abnormal NEGATIVE [facility] Comment on above: Performed By: #### U ACSIND, UMICRO #### [facility] [address] [place] [address] Dr. Ramya Ramey Nitrite Ql (U) Negative Normal NEGATIVE [facility] Comment on above: Performed By: #### U ACSCLOVER, UMICRO #### [facility] [address] [place] [address] Dr. Ramya Ramey pH (U) 6.0 [pH] Normal 5-9 [facility] Comment on above: Performed By: #### U ACSCLOVER, UMICRO #### [facility] [address] [place] [address] Dr. Ramya Ramey SPEC GRAVITY 1.020 Normal 1.005-<=1.0 25 [facility] Comment on above: Performed By: #### U ACSCLOVER, UMICRO #### [facility] [address] [place] [address] Dr. Ramya Ramey UA PROTEIN TRACE Normal NEGATIVE/ TRACE [facility] Comment on above: Performed By: #### U ACSCLOVER, UMICRO #### [facility] [address] [place] [address] Dr. Ramya Ramey UR MICRO IND INDICATED Normal [facility] Comment on above: Performed By: #### U ACSCLOVER, UMICRO #### [facility] [address] [place] [address] Dr. Ramya Ramey Urobilinogen Qn (U) 0.2 {Sariah'U}/dL Normal 0.2 - 1. 0 [facility] Comment on above: Performed By: #### U ACSCLOVER, UMICRO #### [facility] [address] [place] [address] Dr. Ramya Ramey URINE MICROSCOPIC ONLYon BACTERIA MODERATE Abnormal NONE SEEN [facility] Comment on above: Performed By: #### U ACSIND, UMICRO #### [facility] [address] [place] [address] Dr. Ramya Ramey Bacteria identified Cx Nom (U) INDICATED Normal [facility] Comment on above: Performed By: #### U ACSCLOVER, UMICRO #### [facility] Laboratory [address] [place] [address] Dr. Ramya Ramey CAST NONE SEEN Normal NONE SEEN [facility] Comment on above: Performed By: #### U ACSCLOVER, UMICRO #### [facility] [address] [place] [address] Dr. Ramya Ramey Crystals LM Nom (Urine sed) NONE SEEN Normal NONE SEEN [facility] Comment on above: Performed By: #### U ACSCLOVER, UMICRO #### [facility] [address] [place] [address] Dr. Ramya Ramey Epithelial cells LM Ql (Urine sed) MANY Abnormal NONE SEEN /RARE [facility] Comment on above: Performed By: #### U ACSCLOVER, ICRO #### [facility] [address] [place] [address] Dr. Ramya Ramey MUCOUS NONE SEEN Normal NONE SEEN [facility] Comment on above: Performed By: #### U ACSCLOVER, ICRO #### [facility] [address] [place] [address] Dr. Ramya Ramey RBC 2-5 Abnormal 0-2 [facility] Comment on above: Performed By: #### U RHYS UMICRO #### [facility] [address] [place] [address] Dr. Ramya Ramey WBC 10-20 Abnormal NONE SEEN [facility] Comment on above: Performed By: #### U RHYS, UMICRO #### [facility] [address] [place] [address] Dr. Ramya Ramey HEPATITIS C ANTIBODYon 07-18 Hep C Virus Ab <0.1 Normal 0.0-0.9 [facility] Comment on above: Result Comment: Nega tive: < 0.8 Indeterminate: 0.8 - 0.9 Positive: > 0.9 . The CDC recommends that a positive HCV antibody result be followed up with a HCV Nucleic Acid Amplification test (642310). Performed By: #### H CV #### [facility] [address] [place] [address] Dr. Ramya Ramey ABO AND RH TYPEon 07-17-2021 ABO and Rh group Nom (Bld) ABO Rh Typing B Rh Positive Normal [facility] Comment on above: Performed By: #### P OCGLUC #### [facility] [address] [place] [address] Dr. Ramya Ramey GLUCOSE - 1HRon 07-17-2021 Glucose [Mass/Vol] 238 mg/dL Critically high 74-106 T [facility] Comment on above: Performed By: #### G LU1HR #### [facility] [address] [place] [address] Dr. Ramya Ramey GLYCOHEMOGLOBIN A1Con 2021 ADA RECOMMENDATION ADA THERAPEUTIC TARGET 6.0 - 7.0 ACTION SUGGESTED > 7.0 Normal [facility] Comment on above: Performed By: #### H H #### [facility] [address] [place] [address] Dr. Ramya Ramey Glucose [Mass/Vol] 120 mg/dL Normal [facility] Comment on above: Performed By: #### H H #### [facility] [address] [place] [address] Dr. Ramya Ramey HbA1c (Bld) [Mass fraction] 5.8 % Normal <=6.0 [facility] Comment on above: Performed By: #### H H #### [facility] [address] [place] [address] Dr. Ramya Ramey HEMOGRAM AND PLATELon 2021 Hematocrit (Bld) [Volume fraction] 33.3 % Critically low 36.0-48.0 [facility] Comment on above: Performed By: #### H H #### [facility] [address] [place] [address] Dr. Ramya Ramey Hemoglobin (Bld) [Mass/Vol] 10.8 g/dL Critically low 12.0-16.0 [facility] Comment on above: Performed By: #### H H #### [facility] [address] [address] [address] Ramya Ramey MCH (RBC) [Entitic mass] 28.9 pg Normal 26.7-34.0 [facility] Comment on above: Performed By: #### H H #### [facility] [address] [address] [address] Ramya Ramey MCHC (RBC) [Mass/Vol] 32.4 g/dL Normal 29.9-35.2 [facility] Comment on above: Performed By: #### H H #### [facility] [address] [address] [address] Ramya Ramey MCV (RBC) [Entitic vol] 89.0 fL Normal 81.0-99.0 [facility] Comment on above: Performed By: #### H H #### [facility] [address] [place] [address] Dr. Ramya Ramey PLT 217 103/ul Normal 150-450 [facility] Comment on above: Performed By: #### H H #### [facility] [address] [address] [address] Ramya Ramey RBC 3.74 106/ul Critically low 4.20-5.40 [facility] Comment on above: Performed By: #### H H #### [facility] [address] [address] [address] Ramya Ramey WBC 11.5 103/ul Critically high 4.0-11.0 [facility] Comment on above: Performed By: #### H H #### [facility] [address] [place] [address] Dr. Ramya Ramey CHLAMYDIA/GONOCOCCUS JAKE (SW AB/URINE/PAPon 06-21-2021 Chlamydia trachomatis, JAKE Negative Normal Negative [facility] Comment on above: Performed By: #### C T/NGNA #### [facility] [address] [place] [address] Dr. Ramya Ramey Neisseria gonorrhoeae, JAKE Negative Normal Negative [facility] Comment on above: Performed By: #### C T/NGNA #### [facility] [address] [place], [place] [address] Dr. Ramya Ramey VAGINITIS/VAGINOSIS DNA PROB [place] 06-20-2021 Elodia species Negative Normal Negative [facility] Comment on above: Performed By: #### H H #### [facility] [address] [address] [address] Ramya Ramey Gardnerella vaginalis Positive Abnormal Negative [facility] Comment on above: Performed By: #### H H #### [facility] [address] [address] [address] Ramya Ramey Trichomonas vaginalis Negative Normal Negative [facility] Comment on above: Performed By: #### H H #### [facility] [address] [address] [address] Ramya Ramey AFP, Maternalon 06-03-2021 Determined by Other Normal [facility] Comment on above: Performed By: #### C MIS #### [facility] [address] [place] [address] Business Programmer: Antoine Wilson MD #### AAFPM #### [address] [address] Business Programmer: Antoine Wilson MD [address] [address] Business Programmer: Nick Mills MD Due Date SEE NOTE Normal [facility] Comment on above: Result Comment: Resu lts for Estimated Due Date: 10 21 21 Performed By: #### C MIS #### [facility] [address] [place] [address] Business Programmer: Antoine Wilson MD #### AAFPM #### [facility] [address] [place] [phone] Business Programmer: Antoine Wilson MD [facility] [address] [place] [address] Business Programmer: Nick Mills MD Family History No Normal [facility] Comment on above: Performed By: #### C MIS #### [address] [address] Business Programmer: Antoine Wilson MD #### AAFPM #### [address] [address] Business Programmer: Antoine Wilson MD [address] [address] Business Programmer: Nick Mills MD Gestat Age (exact) 19 wks, 4 days Normal [facility] Comment on above: Performed By: #### C MIS #### [address] [address] Business Programmer: Antoine Wilson MD #### AAFPM #### [address] [address] Business Programmer: Antoine Wilson MD [address] [address] Business Programmer: Nick Mills MD Ins Req Matern Diab Unknown Normal [facility] Comment on above: Performed By: #### C MIS #### [address] [address] Business Programmer: Antoine Wilson MD #### AAFPM #### [address] [address] Business Programmer: Antoine Wilson MD [address] [address] Business Programmer: Nick Mills MD Interpretation Screen Neg Normal [facility] Comment on above: Result Comment: (NOT E) INTERPRETATION: SCREEN NEGATIVE for open spina bifida Neural Tube Defects (NTD) Negative Pre-Test Post-Test Cutoff Neural Tube Defects Risks 1:1030 1:7440 1:250 Comments: The risk of an open neural tube defect is less than the screening cut-off. This test was developed and its performance characteristics determined by [employer]. It has not been cleared or approved by the [place] Food and Drug Administration. This test was performed in a CLIA certified laboratory and is intended for clinical purposes. Performed By: #### C MIS #### [address] [address] Business Programmer: Antoine Wilson MD #### AAFPM #### [address] [address] Business Programmer: Anotine Wilson MD [address] [address] Business Programmer: Nick Mills MD Maternal Age at Del 26.[address] [facility] Comment on above: Performed By: #### C MIS #### [address] [address] Business Programmer: Antoine Wilson MD #### AAFPM #### [address] [address] Business Programmer: Antoine Wilson MD [address] [phone] Business Programmer: Nick Mills MD Maternal Race Nonblack [facility] Comment on above: Performed By: #### C MIS #### [address] [address] Business Programmer: Antoine Wilson MD #### AAFPM #### [address] [address] Business Programmer: Antoine Wilson MD [facility] [address] [place] [phone] Business Programmer: Nick Mills MD Maternal Weight 204.[address] [facility] Comment on above: Performed By: #### C MIS #### [address] [address] Business Programmer: Antoine Wilson MD #### AAFPM #### [address] [address] Business Programmer: Antoine Wilson MD [address] [address] Business Programmer: Nick Mills MD MoM for AFP 1.18 Normal [facility] Comment on above: Performed By: #### C MIS #### [address] [address] Business Programmer: Antoine Wilson MD #### AAFPM #### [address] [address] Business Programmer: Antoine Wilson MD [address] [phone] Business Programmer: Nick Mills MD Number of Fetuses [facility] Comment on above: Performed By: #### C MIS #### [address] [address] Business Programmer: Antoine Wilson MD #### AAFPM #### [address] [address] Business Programmer: Antoine Wilson MD [address] [address] Business Programmer: Nick Mills MD Patient's AFP 55 ng/mL Normal [facility] Comment on above: Performed By: #### C MIS #### [address] [address] Business Programmer: Antoine Wilson MD #### AAFPM #### [address] [address] Business Programmer: Antoine Wilson MD [address] [address] Business Programmer: Nick Mills MD Smoking Yes [facility] Comment on above: Performed By: #### C MIS #### [address] [address] Business Programmer: Antoine Wilson MD #### AAFPM #### [address] [address] Business Programmer: Antoine Wilson MD [address] [phone] Business Programmer: Nick Mills MD Specimen See Note [facility] Comment on above: Result Comment: (NOT E) Initial sample Performed by [employer], [address] [place] [address] [id number] [email or web address], Noreen Flores MD, Lab. Director Performed By: #### C MIS #### [address] [address] Business Programmer: Antoine Wilson MD #### AAFPM #### [address] [address] Business Programmer: Antoine Wilson MD [address] [phone] Business Programmer: Nick Mills MD AFP, Maternalon 06-01-2021 Current Smoking YES [facility] Comment on above: Performed By: #### C MIS #### [address] [address] Business Programmer: Antoine Wilson MD #### AAFPM #### [address] [address] Business Programmer: Antoine Wilson MD [address] [phone] Business Programmer: Nick Mills MD Dating LMP [facility] Comment on above: Performed By: #### C MIS #### [address] [address] Business Programmer: Antoine Wilson MD #### AAFPM #### [address] [address] Business Programmer: Antoine Wilson MD [facility] [address] [place] [address] Business Programmer: Nick Mills MD Diabetic INFORMATION NOT PROVIDED [facility] Comment on above: Performed By: #### C MIS #### [facility] [address] [place] [address] Business Programmer: Antoine Wilson MD #### AAFPM #### [address] [address] Business Programmer: Antoine Wilson MD [address] [address] Business Programmer: Nick Mills MD Donor Egg NO [facility] Comment on above: Performed By: #### C MIS #### [address] [address] Business Programmer: Antoine Wilson MD #### AAFPM #### [address] [address] Business Programmer: Antoine Wilson MD [address] [address] Business Programmer: Nick Mills MD Estimated Due Date 10 [address] [facility] Comment on above: Performed By: #### C MIS #### [address] [address] Business Programmer: Antoine Wilson MD #### AAFPM #### [address] [address] Business Programmer: Antoine Wilson MD [address] [address] Business Programmer: Nick Mills MD Family History NO [facility] Comment on above: Performed By: #### C MIS #### [address] [address] Business Programmer: Antoine Wilson MD #### AAFPM #### [address] [address] Business Programmer: Antoine Wilson MD [facility] [address] [place] [address] Business Programmer: Nick Mills MD [employer] [facility] Comment on above: Performed By: #### C MIS #### [address] [address] Business Programmer: Antoine Wilson MD #### AAFPM #### [address] [address] Business Programmer: Antoine Wilson MD [facility] [address] [place] [address] Business Programmer: Nick Mills MD LMP date 01 [address] [facility] Comment on above: Performed By: #### C MIS #### [address] [address] Business Programmer: Antoine Wilson MD #### AAFPM #### [address] [address] Business Programmer: Antoine Wilson MD [facility] [address] [place] [address] Business Programmer: Nick Mills MD Maternal date 08 [address] [facility] Comment on above: Performed By: #### C MIS #### [address] [address] Business Programmer: Antoine Wilson MD #### AAFPM #### [address] [address] Business Programmer: Antoine Wilson MD [facility] [address] [place] [phone] Business Programmer: Nick Mills MD Maternal Weight 204 Normal [facility] Comment on above: Performed By: #### C MIS #### [address] [address] Business Programmer: Antoine Wilson MD #### AAFPM #### [address] [address] Business Programmer: Antoine Wilson MD [address] [phone] Business Programmer: Nick Mills MD Monochorionic Twins TATE [facility] Comment on above: Performed By: #### C MIS #### [address] [address] Business Programmer: Antoine Wilson MD #### AAFPM #### [address] [address] Business Programmer: Antoine Wilson MD [address] [phone] Business Programmer: Nick Mills MD Patient Weight Units LBS Normal [facility] Comment on above: Performed By: #### C MIS #### [address] [address] Business Programmer: Antoine Wilson MD #### AAFPM #### [address] [address] Business Programmer: Antoine Wilson MD [facility] [address] [place] [address] Business Programmer: Nick Mills MD Race (Maternal) WHITE Normal [facility] Comment on above: Performed By: #### C MIS #### [facility] [address] [place] [address] Business Programmer: Antoine Wilson MD #### AAFPM #### [facility] [address] [place] [address] Business Programmer: Antoine Wilson MD [address] [address] Business Programmer: Nick Mills MD Repeat Specimen INFORMATION NOT PROVIDED Normal [facility] Comment on above: Performed By: #### C MIS #### [address] [address] Business Programmer: Antoine Wilson MD #### AAFPM #### [address] [address] Business Programmer: Antoine Wilson MD [address] [address] Business Programmer: Nick Mills MD Valproic/Carbamazep INFORMATION NOT PROVIDED Normal [facility] Comment on above: Performed By: #### C MIS #### [address] [address] Business Programmer: Antoine Wilson MD #### AAFPM #### [address] [address] Business Programmer: Antoine Wilson MD [address] [address] Business Programmer: Nick Mills MD Miscellaneouson 06-01-2021 Send Out Report [facility] [phone] [facility] Comment on above: Performed By: #### C MIS #### [address] [address] Business Programmer: Antoine Wilson MD #### AAFPM #### [address] [address] Business Programmer: Antoine Wilson MD [facility] [address] [place] [address] Business Programmer: Nick Mills MD Miscellaneouson 05-31-2021 Test Name UNITY Normal [facility] Comment on above: Performed By: #### C MIS #### [address] [address] Business Programmer: Antoine Wilson MD #### AAFPM #### [facility] [address] [place] [address] Business Programmer: Antoine Wilson MD [facility] [address] [place] [address] Business Programmer: Nick Mills MD COVID-19, Rapidon 05-22-2021 Interpretation and review of laboratory results Abnormal [facility] SARS-CoV-2 (COVID-19) RNA JAKE+probe Ql (Unsp spec) Detected Abnormal Not Detected [facility] Comment on above: Rapid NAAT: The specimen is POSITIVE for SARS-Cov-2, the novel coronavirus associated with COVID-19. This test has been authorized by the FDA under an Emergency Use Authorization (EUA) for use by authorized laboratories. The ID NOW COVID-19 assay is designed to detect the virus that causes COVID-19 in patients with signs and symptoms of infection who are suspected of COVID-19. An individual without symptoms of COVID-19 and who is not shedding SARS-CoV-2 virus would expect to have a negative (not detected) result in this assay. Fact sheet for Healthcare Providers: https://www.fda.gov/media/455150/download Fact sheet for Patients: https://www.fda.gov/media/307203/download Methodology: Isothermal Nucleic Acid Amplification Results reported to the appropriate Health Department Specimen Description .NASOPHARYNGEAL SWAB [facility] Basic Metabolic Panelon 12-0 Anion gap [Moles/Vol] 14 mmol/L 9 - 17 mmol/L [facility] Calcium [Mass/Vol] 9.3 mg/dL 8.6 - 10. 4 mg/dL [facility] Chloride [Moles/Vol] 100 mmol/L 98 - 10 7 mmol/L [employer] CO2 [Moles/Vol] 19 mmol/L Low 20 - 31 mmol/L [employer] Creatinine [Mass/Vol] 0.48 mg/dL Low 0.50 - 0.90 mg/dL [facility] GFR >60 >60 mL/min [employer] GFR Non- >60 >60 mL/min [facility] GFR/1.73 sq M.predicted MDRD (S/P/Bld) [Vol rate/Area] [facility] Comment on above: Average GFR for 20-2 9 years old: 116 mL/min/1.73sq m Chronic Kidney Disease: <60 mL/min/1.73sq m Kidney failure: <15 mL/min/1.73sq m eGFR calculated using average adult body mass. Additional eGFR calculator available at: http://www.[employer]/multiple_crcl_2012.htm GFR/1.73 sq M.predicted MDRD (S/P/Bld) [Vol rate/Area] NOT REPORTED [facility] [employer] Glucose [Mass/Vol] 209 mg/dL High 70 - 99 mg/dL [facility] Interpretation and review of laboratory results Abnormal [employer] Potassium [Moles/Vol] 3.9 mmol/L 3.7 - 5.3 mmol/L [facility] [employer] Sodium [Moles/Vol] 133 mmol/L Low 135 - 144 mmol/L [facility] [employer] Urea nitrogen (BldV) [Mass/Vol] 7 mg/dL 6 - 20 mg/dL [facility] [employer] Urea nitrogen/Creatinine (Bld) [Mass ratio] 15 [facility] US OB 1ST TRIMESTER TRANSBDO BECKY ONLY WITH COLOR FLOW SINGLE FETUSon 04-01-2021 US OB 1ST TRIMESTER TRANSBDOMINAL ONLY WITH COLOR FLOW SINGLE FETUS EXAMINATION: US OB 1ST TRIMESTER TRANSBDOMINAL ONLY WITH COLOR FLOW SINGLE FETUS HISTORY: ORDERING SYSTEM PROVIDED HISTORY: ab, vag bleeding, TECHNOLOGIST PROVIDED HISTORY: Illness/Other Reason for exam: vaginal bleeding, rt pelvic pain Cancer History: na Surgery, RadiationHistory: na Encounter Type: Initial Additional signs and symptoms: n ORDERING SYSTEM PROVIDED DIAGNOSIS CODES: COMPARISON: 02/22/2021 TECHNIQUE: Transabdominal ultrasound of the pelvis was performed using Duplex doppler and color flow. FINDINGS: A single intrauterine gestational sac is identified. A pole is present. The crown rump length measures 47.2 mm. This corresponds to 11 week 4 day gestational age. The estimated date of delivery by ultrasound is 10/17/2020. There is appropriate correlation with clinical dating (based on clinical dating estimated gestational age is 11 weeks 1 day and estimated date of delivery is 10/20/2021). cardiac activity is identified at a rate of 153 beats per minute using M-mode Doppler analysis. 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 Uterus measures 13.4 x 7.8 x 8.7 cm. No focal myometrial lesions. No evidence of perigestational hemorrhage. Right ovary measures 2.9 x 1.6 x 2.5 cm. Preserved vascularity with resistive index measuring 0.6. Left ovary not visualized. No adnexal mass. No significant pelvic free fluid. IMPRESSION: Single live 11 week 4 day intrauterine gestation with a heart rate of 153 beats per minute. Appropriate correlation with clinical dating. Right ovary unremarkable. Left ovary not visualized. No significant pelvic free fluid. Workstation ID: [id number] Dictated by: BLAINE CHIU on [place] Apr 01, 2021 8:19:34 PM EST Transcribed by: BLAINE CHIU on [place] Apr 01, 2021 8:19:34 PM EST Finalized by: BLAINE CHIU on [place] Apr 01, 2021 8:19:34 PM EST Normal [facility] Comment on above: Order Comment: Injur y/Trauma or Illness?:Illness/Other How long have you had these symptoms (acute/chronic)?:Acute Reason for exam?:vaginal bleeding, rt pelvic pain History of cancer?:na Surgeries, chemotherapy, or radiation?:na Type of Exam?:Initial Additional signs and symptoms?:n Microscopic UrinalysisOrdere d By: Braydon May on 02-10-2021 - [employer] Work Phone: Amorphous, UA NOT REPORTED None [employer] [facility] Work Phone: Bacteria, UA 1+ Abnormal None [employer] Work Phone: Casts UA NOT REPORTED /LPF [employer] Work Phone: Crystals, UA NOT REPORTED None /HPF [facility] Work Phone: Epithelial Cells UA 5 TO 10 /HPF [facility] Work Phone: Interpretation and review of laboratory results Abnormal [facility] Work Phone: Mucus, UA NOT REPORTED None [facility] Work Phone: Other Observations UA NOT REPORTED NOT REQ. [facility] Work Phone: RBC, UA 0 TO 2 [facility] Work Phone: Renal Epithelial, UA NOT REPORTED 0 /HPF [facility] Work Phone: Trichomonas, UA NOT REPORTED None [facility] Work Phone: WBC, UA 2 TO 5 0 /HPF [facility] Work Phone: Yeast, UA NOT REPORTED None [facility] Work Phone: [facility] [employer] Work Phone: UrinalysisOrdered By: Braydon May on 02-10-2021 Bilirubin Urine Negative NEGATIVE [facility] Work Phone: Color, UA Yellow Yellow [facility] Work Phone: Glucose, Ur Negative NEGATIVE [facility] Work Phone: Interpretation and review of laboratory results Abnormal [facility] Work Phone: Ketones Ql (U) Negative NEGATIVE [facility] Work Phone: Leukocyte esterase Test strip Ql (U) 2+ Abnormal NEGATIVE [facility] Work Phone: Nitrite, Urine Negative NEGATIVE [facility] Work Phone: pH, UA 6.0 [facility] Work Phone: Protein, UA Negative NEGATIVE [facility] Work Phone: Specific [place], UA 1.020 [facility] [employer] Work Phone: Turbidity UA Clear Clear [employer] Phone: Urinalysis Comments [employer] Phone: Urine Hgb 1+ Abnormal NEGATIVE [employer] Phone: Urobilinogen, Urine Normal Normal [facility] Phone: [employer] Phone: hCG, quantitative, Ordered By: Braydon May on 02-10-2021 hCG Quant 160 High <5 IU/L [employer] Phone: Comment on above: Non-preg premeno <=5 Postmeno <=8 Male <=3 If HCG results do not concur with clinical observations, additional testing to confirm results is recommended. Elevated results not associated with may be found in patients with other diseases such as tumors of the germ cells (testis, ovaries, etc.), bladder, pancreas, stomach, lungs, and liver. Interpretation and review of laboratory results Abnormal [employer] Phone: [employer] Phone: CBC Auto DifferentialOrdered By: Bea Jacobs on 12-10-2020 Absolute Eos # 0.10 [employer] [facility] Work Phone: Absolute Immature Granulocyte NOT REPORTED [facility] Phone: Absolute Lymph # 1.80 [facility] Work Phone: Absolute Terry # 0.70 [facility] Work Phone: Basophils (Bld) [#/Vol] 0.10 10*3/uL [facility] Work Phone: Basophils/100 WBC (Bld) 1 % 0 - 2 % M [facility] [employer] Work Phone: Differential Type YES [facility] [employer] Work Phone: Eosinophils/100 WBC (Bld) 1 % 0 - 5 % [facility] Work Phone: Hematocrit (Bld) [Volume fraction] 42.8 % 36 - 46 % [employer] Phone: Hemoglobin.gastrointest inal spec 1 Ql (Stl) 14.6 g/dL 12.0 - 16.0 g/dL [employer] Phone: Immature Granulocytes NOT REPORTED 0 % M [employer] Phone: Interpretation and review of laboratory results Abnormal [employer] Phone: Lymphocytes/100 WBC (Bld) 16 % 15 - 40 % [employer] Phone: MCH (RBC) [Entitic mass] 30.0 pg 26 - 34 pg [employer] Phone: MCHC (RBC) [Mass/Vol] 34.2 g/dL 31 - 3 7 g/dL [employer] Phone: MCV (RBC) [Entitic vol] 87.8 fL 80 - 100 fL [employer] Phone: Monocytes/100 WBC (Bld) 6 % 4 - 8 % M [employer] Phone: NRBC Automated NOT REPORTED per 100 WBC [employer] [facility] Work Phone: Platelet distribution width (Bld) [Ratio] 13.1 % 12.1 - 15.2 % [employer] Phone: Platelet Estimate NOT REPORTED [employer] Phone: Platelet mean volume (Bld) [Entitic vol] NOT REPORTED 6.0 - 12.0 fL [employer] Phone: Platelets (Bld) [#/Vol] 230 10*3/uL [employer] Phone: RBC (Bld) [#/Vol] 4.87 10*6/uL 4.0 - 5.2 m/uL [employer] Phone: RBC (Bld) [#/Vol] NOT REPORTED [employer] Phone: Segmented neutrophils/100 WBC (Bld) 76 % High 47 - 75 % [employer] Phone: Segs Absolute 8.80 High [employer] Work Phone: WBC (Bld) [#/Vol] 11.5 10*3/uL High [employer] Work Phone: WBC (Bld) [#/Vol] NOT REPORTED [employer] Work Phone: [employer] Work Phone: Comprehensive Metabolic Pane l w/ Reflex to MGOrdered By: Bea Jacobs on 12-10-2020 Albumin [Mass/Vol] 4.3 g/dL 3.5 - 5.2 g/dL [employer] Phone: Albumin/Globulin Ratio NOT REPORTED [employer] Phone: ALP (Bld) [Catalytic activity/Vol] 105 U/L High 35 - 104 U/L [employer] Work Phone: ALT [Catalytic activity/Vol] 17 U/L 5 - 33 U/L [employer] Phone: Anion gap [Moles/Vol] 12 mmol/L 9 - 17 mmol/L [employer] Phone: AST [Catalytic activity/Vol] 17 U/L <32 [employer] Phone: Bilirubin [Mass/Vol] 0.50 mg/dL 0.30 - 1.20 mg/dL [employer] Phone: Calcium [Mass/Vol] 9.3 mg/dL 8.6 - 10. 4 mg/dL [employer] Phone: Chloride [Moles/Vol] 105 mmol/L 98 - 10 7 mmol/L [employer] Phone: CO2 [Moles/Vol] 22 mmol/L 20 - 31 mmol/L [employer] Phone: Creatinine [Mass/Vol] 0.6 mg/dL 0.50 - 0.90 mg/dL [employer] Phone: Free PSA/Total PSA [Mass fraction] 7.3 g/dL 6.4 - 8.3 g/dL [employer] Phone: GFR >60 >60 mL/min [employer] Phone: GFR Non- >60 >60 mL/min [employer] Phone: GFR/1.73 sq M.predicted MDRD (S/P/Bld) [Vol rate/Area] [employer] Phone: Comment on above: Average GFR for 20-2 9 years old: 116 mL/min/1.73sq m Chronic Kidney Disease: <60 mL/min/1.73sq m Kidney failure: <15 mL/min/1.73sq m eGFR calculated using average adult body mass. Additional eGFR calculator available at: http://www.GreenWatt/multiple_crcl_2012.htm GFR/1.73 sq M.predicted MDRD (S/P/Bld) [Vol rate/Area] NOT REPORTED [employer] Phone: Glucose [Mass/Vol] 102 mg/dL High 70 - 99 mg/dL [employer] Phone: Interpretation and review of laboratory results Abnormal [employer] Phone: Potassium [Moles/Vol] 3.9 mmol/L 3.7 - 5.3 mmol/L [employer] Phone: Sodium [Moles/Vol] 139 mmol/L 135 - 144 mmol/L [employer] Phone: Urea nitrogen (BldV) [Mass/Vol] 15 mg/dL 6 - 20 mg/dL [employer] Phone: Urea nitrogen/Creatinine (Bld) [Mass ratio] 25 High [employer] Phone: [employer] Phone: HCG Qualitative, SerumOrdere d By: Bea Jacobs on 12-10-2020 hCG Qual Negative NEGATIVE [employer] Phone: Comment on above: Specimens with hCG l evels near the threshold of the test (25 mIU/mL) may give a negative or indeterminate result. In such cases, another test should be performed with a new specimen in 48-72 hours. If early is suspected clinically in this setting, correlation with quantitative serum b-hCG level is suggested. [employer] has confirmed the use of plasma for this test. This has not been cleared or approved by the U.S. Food and Drug Administration. The FDA has determined that such clearance is not necessary. [employer] Phone: Acetaminophen Levelon 2020 Acetaminophen [Mass/Vol] <5 Low 10 - 30 ug/mL [employer] Phone: Interpretation and review of laboratory results Abnormal [employer] Phone: Basic Metabolic Panelon 03-3 Anion gap [Moles/Vol] 11 mmol/L 9 - 17 mmol/L [employer] Phone: Bun/Cre Ratio 27 High [employer] Work Phone: Calcium [Mass/Vol] 9.4 mg/dL 8.6 - 10. 4 mg/dL [employer] Phone: Chloride [Moles/Vol] 104 mmol/L 98 - 10 7 mmol/L [employer] Phone: CO2 [Moles/Vol] 26 mmol/L 20 - 31 mmol/L [employer] Phone: Creatinine [Mass/Vol] 0.71 mg/dL 0.50 - 0.90 mg/dL [employer] Phone: GFR >60 >60 mL/min [employer] Phone: GFR Non- >60 >60 mL/min [employer] Phone: GFR/1.73 sq M predicted among non-blacks MDRD (S/P/Bld) [Vol rate/Area] NOT REPORTED [employer] Phone: GFR/1.73 sq M predicted among non-blacks MDRD (S/P/Bld) [Vol rate/Area] [employer] Phone: Comment on above: Average GFR for 20-2 9 years old: 116 mL/min/1.73sq m Chronic Kidney Disease: <60 mL/min/1.73sq m Kidney failure: <15 mL/min/1.73sq m eGFR calculated using average adult body mass. Additional eGFR calculator available at: http://www.GreenWatt/multiple_crcl_2012.htm Glucose [Mass/Vol] 113 mg/dL High 70 - 99 mg/dL [employer] Phone: Potassium [Moles/Vol] 4.0 mmol/L 3.7 - 5.3 mmol/L [employer] Phone: Sodium [Moles/Vol] 141 mmol/L 135 - 144 mmol/L [employer] Phone: Urea nitrogen [Mass/Vol] 19 mg/dL 6 - 20 mg/dL [employer] Phone: CBC Auto Differentialon 03-3 0-2020 Basophils (Bld) [#/Vol] 0.10 10*3/uL [employer] Phone: Basophils/100 WBC (Bld) 1 % 0 - 2 % M [facility] Phone: Differential Type YES [employer] Work Phone: Eosinophils (Bld) [#/Vol] 0.10 10*3/uL [employer] Phone: Eosinophils/100 WBC (Bld) 1 % 0 - 5 % [facility] Phone: Erythrocyte distribution width (RBC) [Ratio] 13.3 % 12.1 - 15.2 % [employer] Phone: Hematocrit (Bld) [Volume fraction] 40.7 % 36 - 46 % [employer] Phone: Hemoglobin (Bld) [Mass/Vol] 13.8 g/dL 12.0 - 16.0 g/dL [employer] Phone: Interpretation and review of laboratory results Abnormal [employer] Phone: Lymphocytes (Bld) [#/Vol] 3.10 10*3/uL [employer] Phone: Lymphocytes/100 WBC (Bld) 28 % 15 - 40 % [employer] Phone: MCH (RBC) [Entitic mass] 30.1 pg 26 - 34 pg [employer] Phone: MCHC (RBC) [Mass/Vol] 33.8 g/dL 31 - 3 7 g/dL [employer] Phone: MCV (RBC) [Entitic vol] 88.8 fL 80 - 100 fL [employer] Phone: Monocytes (Bld) [#/Vol] 0.50 10*3/uL [employer] Phone: Monocytes/100 WBC (Bld) 5 % 4 - 8 % M [employer] Phone: Platelet mean volume (Bld) [Entitic vol] NOT REPORTED 6.0 - 12.0 fL [employer] Phone: Platelets (Bld) [#/Vol] 203 10*3/uL [employer] Phone: Platelets (Bld) [#/Vol] NOT REPORTED [employer] Phone: RBC (Bld) [#/Vol] 4.59 10*6/uL 4.0 - 5.2 m/uL [employer] Phone: RBC morphology finding Nom (Bld) NOT REPORTED [employer] Work Phone: Segmented neutrophils/100 WBC (Bld) 65 % 47 - 75 % [employer] Work Phone: Segs Absolute 7.30 High [employer] [facility] Work Phone: WBC (Bld) [#/Vol] 11.0 10*3/uL [employer] Work Phone: WBC (Bld) [#/Vol] NOT REPORTED per 100 WBC [employer] Work Phone: WBC Morphology NOT REPORTED [employer] [facility] Work Phone: COVID-19, Rapidon 4 SARS-CoV-2, Rapid Not Detected Not Detected [employer] Phone: Comment on above: Rapid NAAT: The specimen is NEGATIVE for SARS-CoV-2, the novel coronavirus associated with COVID-19. The ID NOW COVID-19 assay is designed to detect the virus that causes COVID-19 in patients with signs and symptoms of infection who are suspected of COVID-19. An individual without symptoms of COVID-19 and who is not shedding SARS-CoV-2 virus would expect to have a negative (not detected) result in this assay. Negative results should be treated as presumptive and, if inconsistent with clinical signs and symptoms or necessary for patient management, should be tested with an alternative molecular assay. Negative results do not preclude SARS-CoV-2 infection and should not be used as the sole basis for patient management decisions. Fact sheet for Healthcare Providers: https://www.fda.gov/media/260703/download Fact sheet for Patients: https://www.fda.gov/media/225559/download Methodology: Isothermal Nucleic Acid Amplification Specimen Description .NASOPHARYNGEAL SWAB [employer] Phone: Ethanolon 08-01-2020 Ethanol [Mass/Vol] mg/dL <10 mg/dL [employer] Work Phone: Ethanol percent <0.010 % [facility] Work Phone: HCG Qualitative, Serumon hCG Qual Negative NEGATIVE [facility] [employer] Phone: Comment on above: Specimens with hCG l evels near the threshold of the test (25 mIU/mL) may give a negative or indeterminate result. In such cases, another test should be performed with a new specimen in 48-72 hours. If early is suspected clinically in this setting, correlation with quantitative serum b-hCG level is suggested. [employer] has confirmed the use of plasma for this test. This has not been cleared or approved by the U.S. Food and Drug Administration. The FDA has determined that such clearance is not necessary. Otheron 08-01-2020 Interpretation and review of laboratory results Abnormal [facility] [employer] Phone: Immature granulocytes (Bld) [#/Vol] NOT REPORTED [facility] [employer] Phone: Salicylateon 08-01-2020 Salicylate Lvl <1 Low 3 - 10 mg/dL [facility] [employer] Phone: TSH with Reflexon 08-01-2020 TSH Qn 3.16 m[IU]/L [facility] [employer] Phone: Urine Drug Screenon 08-02-19 21 Amphetamine Screen, Ur Negative NEGATIVE [facility] [employer] Phone: Comment on above: (Positive cutoff 500 ng/mL) Barbiturate Screen, Ur Negative NEGATIVE [facility] [employer] Phone: Comment on above: (Positive cutoff 200 ng/mL) Benzodiazepine Screen, Urine Negative NEGATIVE [facility] [employer] Phone: Comment on above: (Positive cutoff 150 ng/mL) Buprenorphine Urine NOT REPORTED NEGATIVE [facility] [employer] Work Phone: Cannabinoid Scrn, Ur Negative NEGATIVE [facility] [employer] Phone: Comment on above: (Positive cutoff 50 ng/mL) Cocaine Metabolite, Urine Negative NEGATIVE [facility] [employer] Phone: Comment on above: (Positive cutoff 150 ng/mL) MDMA, Urine NOT REPORTED NEGATIVE [facility] Work Phone: Methadone Screen, Urine Negative NEGATIVE [facility] Work Phone: Comment on above: (Positive cutoff 200 ng/mL) Methamphetamine, [facility] Work Phone: Comment on above: (Positive cutoff 500 ng/mL) Opiates, Urine Negative NEGATIVE [facility] Work Phone: Comment on above: (Positive cutoff 100 ng/mL) Oxycodone Screen, Ur Negative NEGATIVE [facility] Work Phone: Comment on above: (Positive cutoff 100 ng/mL) Phencyclidine, Urine Negative NEGATIVE [facility] Work Phone: Comment on above: (Positive cutoff 25 ng/mL) Propoxyphene, Urine Negative NEGATIVE [facility] Work Phone: Comment on above: (Positive cutoff 300 ng/mL) Test Information NOT REPORTED [facility] [employer] Work Phone: Tricyclic Antidepressants, Urine Negative NEGATIVE [facility] Work Phone: Comment on above: (Positive cutoff 300 ng/mL) Drug screen results are to be used for medical purposes only. All positive results are unconfirmed. Testing for employment or legal uses should be sent to a reference laboratory for confirmation. CBC Auto Differentialon 01-03 Basophils (Bld) [#/Vol] 0.00 10*3/uL [facility] [place] Basophils/100 WBC (Bld) 1 % 0 - 2 % [place], [place] Differential Type YES [place] Eosinophils (Bld) [#/Vol] 0.10 10*3/uL [facility] [place] Eosinophils/100 WBC (Bld) 2 % 0 - 5 % [place] Erythrocyte distribution width (RBC) [Ratio] 13.4 % 12.1 - 15.2 % [facility] [place] Hematocrit (Bld) [Volume fraction] 44.9 % 36 - 46 % [place] Hemoglobin (Bld) [Mass/Vol] 15.0 g/dL 12 - 16 g/dL [place] Lymphocytes (Bld) [#/Vol] 1.30 10*3/uL [place] Lymphocytes/100 WBC (Bld) 17 % 15 - 40 % [place] MCH (RBC) [Entitic mass] 29.7 pg 26 - 34 pg [place] MCHC (RBC) [Mass/Vol] 33.4 g/dL 31 - 3 7 g/dL [place] MCV (RBC) [Entitic vol] 88.9 fL 80 - 100 fL [place] Monocytes (Bld) [#/Vol] 0.40 10*3/uL [place] Monocytes/100 WBC (Bld) 5 % 4 - 8 % M [place] Platelet mean volume (Bld) [Entitic vol] NOT REPORTED 6 - 12 fL [place] Platelets (Bld) [#/Vol] NOT REPORTED [place] Platelets (Bld) [#/Vol] 231 10*3/uL [place] RBC (Bld) [#/Vol] 5.05 10*6/uL 4 - 5.2 m/uL [place] RBC morphology finding Nom (Bld) NOT REPORTED [place] Segmented neutrophils/100 WBC (Bld) 75 % 47 - 75 % [place] Segs Absolute 5.80 [place] WBC (Bld) [#/Vol] 7.7 10*3/uL [place] WBC (Bld) [#/Vol] NOT REPORTED per 100 WBC [place] WBC Morphology NOT REPORTED [place] Comprehensive Metabolic Pane ammon 01-18-2020 Albumin [Mass/Vol] 4.6 g/dL 3.5 - 5.2 g/dL [place] Albumin/Globulin [Mass ratio] NOT REPORTED [place] ALP [Catalytic activity/Vol] 101 U/L 35 - 104 U/L [place] ALT [Catalytic activity/Vol] 21 U/L 5 - 33 U/L [place] Anion gap [Moles/Vol] 10 mmol/L 9 - 17 mmol/L [place] AST [Catalytic activity/Vol] 20 U/L <32 [place] Bilirubin Ql (U) 0.55 mg/dL 0.3 - 1.2 mg/dL [place] Bun/Cre Ratio 18 [place] Calcium [Mass/Vol] 9.2 mg/dL 8.6 - 10. 4 mg/dL [place] Chloride [Moles/Vol] 106 mmol/L 98 - 10 7 mmol/L [place] CO2 [Moles/Vol] 24 mmol/L 20 - 31 mmol/L [place] Creatinine [Mass/Vol] 0.74 mg/dL 0.5 - 0.9 mg/dL [place] GFR >60 >60 mL/min [place] GFR Non- >60 >60 mL/min [place] GFR/1.73 sq M predicted among non-blacks MDRD (S/P/Bld) [Vol rate/Area] [place] Comment on above: Average GFR for 20-2 9 years old: 116 mL/min/1.73sq m Chronic Kidney Disease: <60 mL/min/1.73sq m Kidney failure: <15 mL/min/1.73sq m eGFR calculated using average adult body mass. Additional eGFR calculator available at: http://www.[employer]kea.[employer]/multiple_crcl_2012.htm GFR/1.73 sq M predicted among non-blacks MDRD (S/P/Bld) [Vol rate/Area] NOT REPORTED [place] Glucose [Mass/Vol] 124 mg/dL High 70 - 99 mg/dL [place] Interpretation and review of laboratory results Abnormal [place] Potassium [Moles/Vol] 4.1 mmol/L 3.7 - 5.3 mmol/L [place] Protein [Mass/Vol] 8.5 g/dL High 6.4 - 8.3 g/dL [place] Sodium [Moles/Vol] 140 mmol/L 135 - 144 mmol/L [place] Urea nitrogen [Mass/Vol] 13 mg/dL 6 - 20 mg/dL [place] Otheron 01-18-2020 Immature granulocytes (Bld) [#/Vol] NOT REPORTED 0 % [place] TSH with Reflexon 01-18-2020 TSH Qn 1.30 m[IU]/L [place] Basic Metabolic Panel w/ Ref stephy to MGon 04-06-2019 Anion gap [Moles/Vol] 13 mmol/L 9 - 17 mmol/L [place] Bun/Cre Ratio 19 [place] Calcium [Mass/Vol] 9.7 mg/dL 8.6 - 10. 4 mg/dL [place] Chloride [Moles/Vol] 102 mmol/L 98 - 10 7 mmol/L [place] CO2 [Moles/Vol] 23 mmol/L 20 - 31 mmol/L [place] Creatinine [Mass/Vol] 0.58 mg/dL 0.5 - 0.9 mg/dL [place] GFR >60 >60 mL/min [place] GFR Non- >60 >60 mL/min [place] GFR/1.73 sq M predicted among non-blacks MDRD (S/P/Bld) [Vol rate/Area] NOT REPORTED [place] GFR/1.73 sq M predicted among non-blacks MDRD (S/P/Bld) [Vol rate/Area] [place] Comment on above: Average GFR for 20-2 9 years old: 116 mL/min/1.73sq m Chronic Kidney Disease: <60 mL/min/1.73sq m Kidney failure: <15 mL/min/1.73sq m eGFR calculated using average adult body mass. Additional eGFR calculator available at: http://www.GreenWatt/multiple_crcl_2012.htm Glucose [Mass/Vol] 115 mg/dL High 70 - 99 mg/dL [place] Interpretation and review of laboratory results Abnormal [place] Potassium [Moles/Vol] 3.9 mmol/L 3.7 - 5.3 mmol/L [place] Sodium [Moles/Vol] 138 mmol/L 135 - 144 mmol/L [place] Urea nitrogen [Mass/Vol] 11 mg/dL 6 - 20 mg/dL [place] CBC Auto Differentialon 12-0 Basophils (Bld) [#/Vol] 0.00 10*3/uL [place] Basophils/100 WBC (Bld) 0 % 0 - 2 % M [place] Differential Type YES [place] Eosinophils (Bld) [#/Vol] 0.10 10*3/uL [place] Eosinophils/100 WBC (Bld) 2 % 0 - 5 % [place] Erythrocyte distribution width (RBC) [Ratio] 12.7 % 12.1 - 15.2 % [place] Hematocrit (Bld) [Volume fraction] 46.4 % High 36 - 46 % [place] Hemoglobin (Bld) [Mass/Vol] 15.5 g/dL 12 - 16 g/dL [place] Interpretation and review of laboratory results Abnormal [place] Lymphocytes (Bld) [#/Vol] 1.30 10*3/uL [place] Lymphocytes/100 WBC (Bld) 20 % 15 - 40 % [place] MCH (RBC) [Entitic mass] 29.7 pg 26 - 34 pg [place] MCHC (RBC) [Mass/Vol] 33.4 g/dL 31 - 3 7 g/dL [place] MCV (RBC) [Entitic vol] 89.0 fL 80 - 100 fL [place] Monocytes (Bld) [#/Vol] 0.50 10*3/uL [place] Monocytes/100 WBC (Bld) 8 % 4 - 8 % [place] Platelet mean volume (Bld) [Entitic vol] NOT REPORTED 6 - 12 fL [place], [place] Platelets (Bld) [#/Vol] NOT REPORTED [place] Platelets (Bld) [#/Vol] 194 10*3/uL [place] RBC (Bld) [#/Vol] 5.22 10*6/uL High 4 - 5.2 m/uL [place] RBC morphology finding Nom (Bld) NOT REPORTED [place] Segmented neutrophils/100 WBC (Bld) 70 % 47 - 75 % [place] Segs Absolute 4.40 [place] WBC (Bld) [#/Vol] 6.4 10*3/uL [place] WBC (Bld) [#/Vol] NOT REPORTED per 100 WBC [place] WBC Morphology NOT REPORTED [place] D-Dimer, Quantitativeon 12- D-Dimer, Quant 0.21 [place], [place] Comment on above: Elevated levels of D dimer can be seen in any state of coagulation activation including DVT, PE, arterial thrombosis, DIC, inflamatory disease, trauma, malignancy, sepsis, infection, hematoma, liver disease, post surgical state, , atherosclerosis, old age. When combined with a low clinical probability, a D dimer value of <0.50 mg/L is considered negative for DVT and PE (negative predictive value of 98%). HCG Qualitative, Serumon hCG Qual Negative NEGATIVE [place] Comment on above: Specimens with hCG l evels near the threshold of the test (25 mIU/mL) may give a negative or indeterminate result. In such cases, another test should be performed with a new specimen in 48-72 hours. If early is suspected clinically in this setting, correlation with quantitative serum b-hCG level is suggested. [employer] has confirmed the use of plasma for this test. This has not been cleared or approved by the U.S. Food and Drug Administration. The FDA has determined that such clearance is not necessary. Otheron 04-06-2019 Immature granulocytes (Bld) [#/Vol] NOT REPORTED [place] XR CHEST STANDARD (2 VW)on 06-07-2018 Negative chest. [place], [place] EXAM: XR CHEST (2 VW ) HISTORY: Reason for exam:->SOB COMPARISON: Chest 12/05/2018. TECHNIQUE: 2 views chest FINDINGS: Heart size normal. Lungs clear. Bony thorax and upper abdomen normal. [facility] Incoming Radiant Results From [employer]Pacs - 04/06/2019 2:50 PM EST EXAM: XR CHEST (2 VW) HISTORY: Reason for exam:->SOB COMPARISON: Chest 12/05/2018. TECHNIQUE: 2 views chest FINDINGS: Heart size normal. Lungs clear. Bony thorax and upper abdomen normal. IMPRESSION: Negative chest. [facility] Comprehensive Metabolic Pane ammon 11-12-2017 Alanine aminotransferase (ALT) 22 U/L Normal 14-65 [facility] Comment on above: This test result isela ht be falsely depressed or falsely elevated on samples drawn from patients taking Sulfasalazine and Sulfapyridine. Venipuncture should occur prior to taking either of these drugs. Result Comment: This test result might be falsely depressed or falsely elevated onsamples drawn from patients taking Sulfasalazine and Sulfapyridine.Venipuncture should occur prior to taking either of these drugs. Performed By: #### C MET ####Unless otherwise noted, all testing performed by [address] [id number]: [id number] Director: Diego Hamilton M.D. Albumin 3.7 g/dL Normal 3.2-5.2 [facility] Comment on above: Performed By: #### C MET ####Unless otherwise noted, all testing performed by [address] [id number]: [id number] Director: Diego Hamilton M.D. Alkaline phosphatase (ALP) 99 U/L Normal 40-140 [facility] Comment on above: Performed By: #### C MET ####Unless otherwise noted, all testing performed by [address] [phone]: [id number] Director: Diego Hamilton M.D. Aspartate aminotransferase (AST) 11 U/L Normal 0-45 [facility] Comment on above: This test result isela ht be falsely depressed or falsely elevated on samples drawn from patients taking Sulfasalazine and Sulfapyridine. Venipuncture should occur prior to taking either of these drugs. Result Comment: This test result might be falsely depressed or falsely elevated onsamples drawn from patients taking Sulfasalazine and Sulfapyridine.Venipuncture should occur prior to taking either of these drugs. Performed By: #### C MET ####Unless otherwise noted, all testing performed by [place] [id number]: [id number] Director: Diego Hamilton M.D. Bilirubin (total) 0.2 mg/dL Low 0.3-1.2 [facility] Comment on above: Performed By: #### C MET ####Unless otherwise noted, all testing performed by [place] [id number]: [id number] Director: Diego Hamilton M.D. Calcium 9.0 mg/dL Normal 8.4-10.2 [facility] Comment on above: Performed By: #### C MET ####Unless otherwise noted, all testing performed by [place] [phone]: [id number] Director: Diego Hamilton M.D. Chloride 109 mmol/L High 98-108 [facility] Comment on above: Performed By: #### C MET ####Unless otherwise noted, all testing performed by [place] [phone]: [id number] Director: Diego Hamilton M.D. CO2 28 mmol/L Normal 21-32 [facility] Comment on above: Performed By: #### C MET ####Unless otherwise noted, all testing performed by [address] [phone]: [id number] Director: Diego Hamilton M.D. Creatinine 0.94 mg/dL Normal 0.40-1.10 [facility] Comment on above: Performed By: #### C MET ####Unless otherwise noted, all testing performed by [address] [phone]: [id number] Director: Diego Hamilton M.D. eGFR (black) mL/min/{1.73_m2} Normal [facility] Comment on above: GFR Calc Result Comment: Afri can [place] GFR Calc Performed By: #### C MET ####Unless otherwise noted, all testing performed by [place] [phone]: [id number] Director: Diego Hamilton M.D. eGFR (non-black) mL/min/{1.73_m2} Normal [facility] Comment on above: Non- GFR Calc eGFR is an estimated Glomerular Filtration Rate based on the value of the patient's serum creatinine. In outpatients, eGFR should be used as a helpful tool in screening for CKD. In inpatients or patients with acute renal failure, eGFR represents the GFR at the moment of the draw and should be used with caution. Result Comment: Non- GFR CalceGFR is an estimated Glomerular Filtration Rate based on the valueof the patient's serum creatinine. In outpatients, eGFR should be usedas a helpful tool in screening for CKD. In inpatients or patients withacute renal failure, eGFR represents the GFR at the moment of the drawand should be used with caution. Performed By: #### C MET ####Unless otherwise noted, all testing performed by [address] [phone]: [id number] Director: Diego Hamilton M.D. Glucose mass conc 102 mg/dL High 70-99 [facility] Comment on above: This test result isela ht be falsely depressed or falsely elevated on samples drawn from patients taking Sulfasalazine and Sulfapyridine. Venipuncture should occur prior to taking either of these drugs. Result Comment: This test result might be falsely depressed or falsely elevated onsamples drawn from patients taking Sulfasalazine and Sulfapyridine.Venipuncture should occur prior to taking either of these drugs. Performed By: #### C MET ####Unless otherwise noted, all testing performed by [address] [phone]: [id number] Director: Diego Hamilton M.D. Interpretation and review of laboratory results Abnormal Invalid Interpretation Code [facility] Potassium molar conc 4.0 mmol/L Normal 3.5-5.1 [facility] Comment on above: Performed By: #### C MET ####Unless otherwise noted, all testing performed by [address] [phone]: [id number] Director: Diego Hamilton M.D. Protein 7.0 g/dL Normal 6.0-8.0 [facility] Comment on above: Performed By: #### C MET ####Unless otherwise noted, all testing performed by [address] [phone]: [id number] Director: Diego Hamilton M.D. Sodium 143 mmol/L Normal 135-145 [facility] Comment on above: Performed By: #### C MET ####Unless otherwise noted, all testing performed by [address] [phone]: [id number] Director: Diego Hamilton M.D. Urea nitrogen 17 mg/dL Normal 8-25 [facility] Comment on above: Performed By: #### C MET ####Unless otherwise noted, all testing performed by [address] [phone]: [id number] Director: Diego Hamilton M.D. Preg test, Urine Qualon 11-02 Preg Test, Urine Qual Negative Invalid Interpretation Code Negative [facility] Comment on above: Rapid test procedura l control acceptable. If a negative result is obtained but is suspected, hCG levels may be too low or urine may be too dilute for detection. Another specimen should be collected after 48-72 hours and tested. If waiting 48 hours is not medically advisable, the test result should be confirmed with a more sensitive quantitative serum hCG test. Test,Urine Qualon 11-12-2017 HCG.beta subunit ( test) Ql (U) Negative Normal Negative [facility] Comment on above: Result Comment: Rapi d test procedural control acceptable.If a negative result is obtained but is suspected, hCG levelsmay be too low or urine may be too dilute for detection. Another specimenshould be collected after 48-72 hours and tested. If waiting 48 hours isnot medically advisable, the test result should be confirmed with a moresensitive quantitative serum hCG test. Performed By: #### P REGUR, UA ####Unless otherwise noted, all testing performed by [address] [phone]: [id number] Director: Diego Hamilton M.D. Urinalysison 11-12-2017 Bilirubin, Urine Negative Normal NEG;NEGATIV E [facility] Comment on above: Performed By: #### P REGUR, UA ####Unless otherwise noted, all testing performed by [place] [phone]: [id number] Director: Diego Hamilton M.D. Blood, Urine Negative Normal NEG;NEGATIV E [facility] Comment on above: Performed By: #### P REGUR, UA ####Unless otherwise noted, all testing performed by [address]CLIA: [id number] Director: Diego Hamilton M.D. Character Clear Normal [facility] Comment on above: Performed By: #### P REGUR, UA ####Unless otherwise noted, all testing performed by [address]8[address]CLIA: [id number] Director: Diego Hamilton M.D. Interpretation and review of laboratory results Abnormal Invalid Interpretation Code [facility] Nitrite, Urine Negative Normal NEG;NEGATIV E [facility] Comment on above: Performed By: #### P REGUR, UA ####Unless otherwise noted, all testing performed by [place] [phone]: [id number] Director: Diego Hamilton M.D. Protein, Urine 30 mg/dL High < 30 [facility] Comment on above: Performed By: #### P REGUR, UA ####Unless otherwise noted, all testing performed by [place] [phone]: [id number] Director: Diego Hamilton M.D. RBCs, Urine < 1 Invalid Interpretation Code 0 - 5 /HPF [facility] Specific [place] 1.024 1 Invalid Interpretation Code 1.003 - 1.029 [facility] Squamous Epithelial 4 /HPF Invalid Interpretation Code 0 - 40 [facility] Urine, color Yellow Normal [facility] Comment on above: Performed By: #### P REGUR, UA ####Unless otherwise noted, all testing performed by [address] [phone]: [id number] Director: Diego Hamilton M.D. Urine, glucose presence Negative Normal NEG; NEGATIV E [facility] Comment on above: Performed By: #### P REGUR, UA ####Unless otherwise noted, all testing performed by [place] [phone]: [id number] Director: Diego Hamilton M.D. Urine, ketones presence Negative Invalid Interpretation Code NEG;NEGATIV E mg/dL [facility] Urine, leukocyte esterase presence Negative Invalid Interpretation Code Negative [facility] Urine, pH 5.0 [pH] Normal 4.5-8.0 [facility] Comment on above: Performed By: #### P REGUR, UA ####Unless otherwise noted, all testing performed by [address] [phone]: [id number] Director: Diego Hamilton M.D. Urobilinogen, Urine < 2.0 Normal <2 [facility] Comment on above: Performed By: #### P REGUR, UA ####Unless otherwise noted, all testing performed by [address] [phone]: [id number] Director: Diego Hamilton M.D. WBCs, Urine 1 /HPF Invalid Interpretation Code 0 - 5 [facility] Urinalysis, Routineon 2017 Ketone,Urine Negative Normal NEG;NEGATIV E [facility] Comment on above: Performed By: #### P REGUR, UA ####Unless otherwise noted, all testing performed by [place] [phone]: [id number] Director: Diego Hamilton M.D. Leuk.Esterase,Urine Negative Normal Negative [facility] Comment on above: Performed By: #### P REGUR, UA ####Unless otherwise noted, all testing performed by [place] [phone]: [id number] Director: Diego Hamilton M.D. Specific [place],Urine 1.024 Normal 1.003-1.029 [facility] Comment on above: Performed By: #### P REGUR, UA ####Unless otherwise noted, all testing performed by [place] [phone]: [id number] Director: Diego Hamilton M.D. Squamous Epithelial 4 /HPF Normal 0-40 [facility] Comment on above: Performed By: #### P REGUR, UA ####Unless otherwise noted, all testing performed by [place] [phone]: [id number] Director: Diego Hamilton M.D. Urine, erythrocytes in sediment by area /[HPF] Normal 0-5 [facility] Comment on above: Performed By: #### P REGUR, UA ####Unless otherwise noted, all testing performed by [address] [phone]: [id number] Director: Diego Hamilton M.D. WBC,Urine 1 /HPF Normal 0-5 [facility] Comment on above: Performed By: #### P REGUR, UA ####Unless otherwise noted, all testing performed by [address] [phone]: [id number] Director: Diego Hamilton M.D. CBC and Differentialon 11-11 Basophils Auto #/vol (Bld) 0.0 K/mcL Invalid Interpretation Code 0 - 0.2 [facility] Basophils/100 WBC Auto (Bld) 0.3 % Normal [facility] Comment on above: Performed By: #### C BCDIF, EXCEP, LIPASE ####Unless otherwise noted, all testing performed by [address] [phone]: [id number] Director: Diego Hamilton M.D. Eosinophils 0.1 K/mcL Invalid Interpretation Code 0 - 0.5 [facility] Eosinophils/100 leukocytes 0.6 % Normal [facility] Comment on above: Performed By: #### C BCDIF, EXCEP, LIPASE ####Unless otherwise noted, all testing performed by [address] [phone]: [id number] Director: Diego Hamilton M.D. Erythrocyte distribution width Auto Ratio (RBC) 13.2 % Normal 10.0-14.4 [facility] Comment on above: Performed By: #### C BCDIF, EXCEP, LIPASE ####Unless otherwise noted, all testing performed by [address] [phone]: [id number] Director: Diego Hamilton M.D. Erythrocytes (RBC) 5.13 M/mcL High 3.7 - 5.0 [facility] Hematocrit (HCT) 47.0 % High 34.4-44.8 [facility] Comment on above: Performed By: #### C BCDIF, EXCEP, LIPASE ####Unless otherwise noted, all testing performed by [address] [phone]: [id number] Director: Diego Hamilton M.D. Hemoglobin mass conc (Bld) 15.3 g/dL Normal 11.6-15.4 [facility] Comment on above: Performed By: #### C BCDIF, EXCEP, LIPASE ####Unless otherwise noted, all testing performed by [address] [phone]: [id number] Director: Diego Hamilton M.D. Lymphocytes 1.5 K/mcL Invalid Interpretation Code 1.0 - 3.7 [facility] Lymphocytes/100 leukocytes 12.1 % Normal [facility] Comment on above: Performed By: #### C BCDIF, EXCEP, LIPASE ####Unless otherwise noted, all testing performed by [address] [phone]: [id number] Director: Diego Hamilton M.D. MCH 29.8 pg Normal 27.9-33.9 [facility] Comment on above: Performed By: #### C BCDIF, EXCEP, LIPASE ####Unless otherwise noted, all testing performed by [address] [phone]: [id number] Director: Diego Hamilton M.D. MCHC mass conc (RBC) 32.6 g/dL Low 33.1-35.1 [facility] Comment on above: Performed By: #### C BCDIF, EXCEP, LIPASE ####Unless otherwise noted, all testing performed by [address] [phone]: [id number] Director: Diego Hamilton M.D. MCV 91.5 fL Normal 82.6-98.9 [facility] Comment on above: Performed By: #### C BCDIF, EXCEP, LIPASE ####Unless otherwise noted, all testing performed by [address] [phone]: [id number] Director: Diego Hamilton M.D. Monocytes 0.6 K/mcL Invalid Interpretation Code 0.1 - 0.6 [facility] Monocytes/100 leukocytes 5.1 % Normal [facility] Comment on above: Performed By: #### C BCDIF, EXCEP, LIPASE ####Unless otherwise noted, all testing performed by [address] [phone]: [id number] Director: Diego Hamilton M.D. Neutrophils 10.0 K/mcL High 1.2 - 6.9 [facility] Platelet mean volume (PMV) 11.1 fL High 7.0-10.6 [facility] Comment on above: Performed By: #### C BCDIF, EXCEP, LIPASE ####Unless otherwise noted, all testing performed by [address] [phone]: [id number] Director: Diego Hamilton M.D. Platelets 235 K/mcL Invalid Interpretation Code 162 - 402 [facility] Segmented Neut 81.9 % Invalid Interpretation Code [facility] WBC (Leukocytes) 12.2 K/mcL High 3.4 - 10.6 [facility] CBC with Diffon 11-11-2017 Basophils Auto #/vol (Bld) 0.0 K/mcL Normal 0-0.2 [facility] Comment on above: Performed By: #### C BCDIF, EXCEP, LIPASE ####Unless otherwise noted, all testing performed by [address] [phone]: [id number] Director: Diego Hamilton M.D. Eosinophils 0.1 K/mcL Normal 0-0.5 [facility] Comment on above: Performed By: #### C BCDIF, EXCEP, LIPASE ####Unless otherwise noted, all testing performed by [address] [phone]: [id number] Director: Diego Hamilton M.D. Erythrocytes (RBC) 5.13 M/mcL High 3.7-5.0 [facility] Comment on above: Performed By: #### C BCDIF, EXCEP, LIPASE ####Unless otherwise noted, all testing performed by [address] [phone]: [id number] Director: Diego Hamilton M.D. Lymphocytes 1.5 K/mcL Normal 1.0-3.7 [facility] Comment on above: Performed By: #### C BCDIF, EXCEP, LIPASE ####Unless otherwise noted, all testing performed by [place] [phone]: [id number] Director: Diego Hamilton M.D. Monocytes 0.6 K/mcL Normal 0.1-0.6 [facility] Comment on above: Performed By: #### C BCDIF, EXCEP, LIPASE ####Unless otherwise noted, all testing performed by [place] [phone]: [id number] Director: Diego Hamilton M.D. Neutrophils 10.0 K/mcL High 1.2-6.9 [facility] Comment on above: Performed By: #### C BCDIF, EXCEP, LIPASE ####Unless otherwise noted, all testing performed by [place] [phone]: [id number] Director: Diego Hamilton M.D. Platelets 235 K/mcL Normal 162-402 [facility] Comment on above: Performed By: #### C BCDIF, EXCEP, LIPASE ####Unless otherwise noted, all testing performed by [phone]: [id number] Director: Diego Hamilton M.D. Segmented Neut % 81.9 % Normal [facility] Comment on above: Performed By: #### C BCDIF, EXCEP, LIPASE ####Unless otherwise noted, all testing performed by [place] [phone]: [id number] Director: Diego Hamilton M.D. WBC (Leukocytes) 12.2 K/mcL High 3.4-10.6 [facility] Comment on above: Performed By: #### C BCDIF, EXCEP, LIPASE ####Unless otherwise noted, all testing performed by [address] [phone]: [id number] Director: Diego Hamilton M.D. Exception Noticeon 8 Exception Notice Complete Metabolic Panel cancelled due to hemolysis. Will be redrawn. Normal [facility] Comment on above: Performed By: #### C BCDIF, EXCEP, LIPASE ####Unless otherwise noted, all testing performed by [address] [phone]: [id number] Director: Diego Hamilton M.D. Lipaseon 11-11-2017 Interpretation and review of laboratory results Abnormal Invalid Interpretation Code [facility] Lipase 52 U/L Low 73-393 [facility] Comment on above: Performed By: #### C BCDIF, EXCEP, LIPASE ####Unless otherwise noted, all testing performed by [address] [phone]: [id number] Director: Diego Hamilton M.D. US TRANSVAGINAL WITH DOPPLER on 01-21-2017 US TRANSVAGINAL WITH DOPPLER EXAMINATION: Transabdominal and transvaginal pelvic ultrasound.CLINICAL INFORMATION: Pelvic pain, irregular bleeding.COMPARISON: 06/30/2016.FINDINGS: The uterus measures 8.4 x 3.8 x 4.8 cm. The endometrium measures 5 mm in thickness. No fluid is present within the endometrial cavity. No uterine mass is identified.The right ovary measures 2.9 x 2.3 x 2.4 cm. The left ovary measures 3.2 x 1.7 x 3.5 cm. Normal flow is demonstrated bilaterally in the ovaries. Small follicles are also present bilaterally in the ovaries.There is a trace amount of fluid in the pelvis, which is likely physiologic.IMPRESSIO N: No acute abnormality identified in the pelvis.Trace amount of free fluid, likely physiologic. Normal [facility] Vital Signs Date Time Vital Sign Value Performing Clinician Dylan manley 12-19-2022 10:04-0400 Body mass index (BMI) [Ratio] 39.51 kg/m2 Matthew Tafoya MD Work Phone: [facility] 12-19-2022 10:04-0400 Body temperature 98.29 [degF] Matthew Tafoya MD Work Phone: [facility] 12-19-2022 10:04-0400 Body weight 104.42 kg Matthew Tafoya MD Work Phone: [facility] 12-19-2022 10:04-0400 Diastolic blood pressure 82 mm[Hg] Matthew Tafoya MD Work Phone: [facility] 12-19-2022 10:04-0400 Heart rate 106 /min Matthew Tafoya MD Work Phone: [facility] 12-19-2022 10:04-0400 Respiratory rate 16 /min Matthew [facility]afoya MD [facility] 12-19-2022 10:04-0400 SaO2% (BldA) [Mass fraction] 95 % Matthew Tafoya MD Work Phone: [facility] 12-19-2022 10:04-0400 Systolic blood pressure 119 mm[Hg] Matthew Tafoya MD Work Phone: [facility] 12-06-2022 13:24-0400 Body temperature 98.42 [degF] Graham Choe [facility] 12-06-2022 13:24-0400 Diastolic blood pressure 75 mm[Hg] Graham Choe [facility] 12-06-2022 13:24-0400 Heart rate 95 /min Graham Choe [facility] 12-06-2022 13:24-0400 Mean blood pressure 95 mm[Hg] Graham Choe [facility] 12-06-2022 13:24-0400 Respiratory rate 18 /min Graham Choe [facility] 12-06-2022 13:24-0400 SaO2% (BldA) [Mass fraction] 96 % Graham Choe [facility] 12-06-2022 13:24-0400 Systolic blood pressure 136 mm[Hg] Graham Choe [facility] 06-16-2022 01:37-0500 Body height 162.6 cm Hoang Santos MD Work Phone: [facility] [employer] 06-16-2022 01:37-0500 Body mass index (BMI) [Ratio] 39.94 kg/m2 Hoang Santos MD Work Phone: [facility] [employer] 06-16-2022 01:37-0500 Body temperature 98.01 [degF] Hoang Santos MD Work Phone: [facility] [employer] 06-16-2022 01:37-0500 Body weight 105.55 kg Hoang Santos MD Work Phone: [facility] [employer] 06-16-2022 01:37-0500 Diastolic blood pressure 77 mm[Hg] Hoang Santos MD Work Phone: [facility] [employer] 06-16-2022 01:37-0500 Heart rate 88 /min Hoang Santos MD Work Phone[facility] [employer] 06-16-2022 01:37-0500 Respiratory rate 16 /min Hoang Santos MD Work Phone: [facility] 06-16-2022 01:37-0500 SaO2% (BldA) [Mass fraction] 98 % Hoang Santos MD Work Phone: [facility] [employer] 06-16-2022 01:37-0500 Systolic blood pressure 122 mm[Hg] Hoang Santos MD Work Phone: [facility] [employer] 03-13-2022 09:30-0500 Body height 162.6 cm Bea Jacobs MD Work Phone: [facility] [employer] 03-13-2022 09:30-0500 Body mass index (BMI) [Ratio] 37.81 kg/m2 Bea Jacobs MD Work Phone: [facility] [employer] 03-13-2022 09:30-0500 Body temperature 98.2 [degF] Bea Jacobs MD Work Phone: [facility] [employer] 03-13-2022 09:30-0500 Body weight 99.93 kg Bea Jacobs MD Work Phone: [facility] [employer] 03-13-2022 09:30-0500 Diastolic blood pressure 72 mm[Hg] Bea Jacobs MD Work Phone: [facility] [employer] 03-13-2022 09:30-0500 Heart rate 76 /min Bea Jacobs MD Work Phone: [facility] [employer] 03-13-2022 09:30-0500 Respiratory rate 18 /min Bea Jacobs MD Work Phone: [facility] [employer] 03-13-2022 09:30-0500 SaO2% (BldA) [Mass fraction] 96 % Bea Jacobs MD Work Phone: [facility] [employer] 03-13-2022 09:30-0500 Systolic blood pressure 116 mm[Hg] Bea Jacobs MD Work Phone: [facility] [employer] 11-29-2021 14:37-0400 Diastolic blood pressure 69 mm[Hg] Bea Jacobs MD Work Phone: [facility] [employer] 11-29-2021 14:37-0400 Heart rate 80 /min Bea Jacobs MD Work Phone: [facility] [employer] 11-29-2021 14:37-0400 SaO2% (BldA) [Mass fraction] 96 % Bea Jacobs MD Work Phone[facility] 11-29-2021 14:37-0400 Systolic blood pressure 112 mm[Hg] Bea Jacobs MD Work Phone: [facility] 11-29-2021 14:36-0400 Body height 162.6 cm Bea Jacobs MD Work Phone[facility] 11-29-2021 14:36-0400 Body mass index (BMI) [Ratio] 36.39 kg/m2 Bea Jacobs MD Work Phone: [facility] 11-29-2021 14:36-0400 Body temperature 99.5 [degF] Bea Jacobs MD Work Phone: [facility] 11-29-2021 14:36-0400 Body weight 96.16 kg Bea Jacobs MD Work Phone: [facility] 11-29-2021 14:36-0400 Respiratory rate 18 /min Bea Jacobs MD Work Phone[facility] 05-22-2021 14:29-0500 Body mass index (BMI) [Ratio] 32.89 kg/m2 Hoang Santos MD Work Phone: [employer] 05-22-2021 14:29-0500 Body temperature 99.5 [degF] Hoang Santos MD Work Phone: [employer] 05-22-2021 14:29-0500 Body weight 92.44 kg Hoang Santos MD Work Phone: [employer] 05-22-2021 14:29-0500 Diastolic blood pressure 61 mm[Hg] Hoang Santos MD Work Phone: [employer] 05-22-2021 14:29-0500 Heart rate 97 /min Hoang Santos MD Work Phone: [employer] 05-22-2021 14:29-0500 Respiratory rate 18 /min Hoang Santos MD Work Phone: [employer] 05-22-2021 14:29-0500 SaO2% (BldA) [Mass fraction] 96 % Hoang Santos MD Work Phone: [employer] 05-22-2021 14:29-0500 Systolic blood pressure 117 mm[Hg] Hoang Santos MD Work Phone: [employer] 04-12-2021 18:20-0500 Body temperature 98.6 [degF] Dana Redman MD Work Phone: [employer] 04-12-2021 18:20-0500 Diastolic blood pressure 75 mm[Hg] Dana Redman MD Work Phone: [facility] 04-12-2021 18:20-0500 Heart rate 92 /min Dana Redman MD Work Phone: [facility] 04-12-2021 18:20-0500 Respiratory rate 20 /min Dana Redman MD Work Phone: [facility] 04-12-2021 18:20-0500 SaO2% (BldA) [Mass fraction] 96 % Dana Redman MD Work Phone: [facility] 04-12-2021 18:20-0500 Systolic blood pressure 118 mm[Hg] Dana Redman MD Work Phone: [facility] 04-12-2021 18:18-0500 Body height 167.6 cm Dana Redman MD Work Phone: [facility] 04-12-2021 18:18-0500 Body mass index (BMI) [Ratio] 32.28 kg/m2 Dana Redman MD Work Phone: [facility] 04-12-2021 18:18-0500 Body weight 90.72 kg Dana Redman MD Work Phone: [facility] 02-10-2021 17:39-0400 Body temperature 99.1 [degF] Braydon May MD Work Phone: [facility] Work Phone: 02-10-2021 17:27-0400 Body height 162.6 cm Braydon May MD Work Phone: [facility] Work Phone: 02-10-2021 17:27-0400 Body mass index (BMI) [Ratio] 37.75 kg/m2 Braydon May MD Work Phone: [facility] Work Phone: 02-10-2021 17:27-0400 Body weight 99.75 kg Braydon May MD Work Phone: [facility] Work Phone: 02-10-2021 17:27-0400 Diastolic blood pressure 84 mm[Hg] Braydon May MD Work Phone: [facility] Work Phone: 02-10-2021 17:27-0400 Heart rate 83 /min Braydon May MD Work Phone: [facility] Work Phone: 02-10-2021 17:27-0400 Respiratory rate 20 /min Braydon May MD Work Phone: [facility] Work Phone: 02-10-2021 17:27-0400 SaO2% (BldA) [Mass fraction] 95 % Braydon May MD Work Phone: [facility] Work Phone: 02-10-2021 17:27-0400 Systolic blood pressure 128 mm[Hg] Braydon May MD Work Phone: [facility] Work Phone: 12-10-2020 19:54-0400 Diastolic blood pressure 63 mm[Hg] Bea Jacobs MD Work Phone: [facility] Work Phone: 12-10-2020 19:54-0400 SaO2% (BldA) [Mass fraction] 97 % Bea Jacobs MD Work Phone: [facility] Work Phone: 12-10-2020 19:54-0400 Systolic blood pressure 111 mm[Hg] Bea Jacobs MD Work Phone: [facility] Work Phone: 08-01-2020 18:44-0400 BMI (Body Mass Index) 33.47 kg/m2 Bea Reynaldo [employer] Work Phone: 08-01-2020 18:44-0400 Body Temperature 97.9 [degF] [facility] [employer] Work Phone: 08-01-2020 18:44-0400 Body weight 88.45 kg [facility] Work Phone: 08-01-2020 18:44-0400 BP Diastolic 72 mm[Hg] Bea Jacobs [employer] Work Phone: 08-01-2020 18:44-0400 BP Systolic 127 mm[Hg] [facility] [employer] Work Phone: 08-01-2020 18:44-0400 Height 162.6 cm Bea Jacobs [facility] [employer] Work Phone: 08-01-2020 18:44-0400 Pulse (Heart Rate) 93 /min [facility] Work Phone: 08-01-2020 18:44-0400 Pulse Oximetry 99 % Bea Jacobs [facility] [employer] Work Phone: 08-01-2020 18:44-0400 Respiratory Rate 16 /min [facility] [employer] Work Phone: 01-04-2020 12:33-0400 BMI (Body Mass Index) 32.96 kg/m2 [facility] 01-04-2020 12:33-0400 Body Temperature 98.1 [degF] [facility] 01-04-2020 12:33-0400 Body weight 87.09 kg [facility] 01-04-2020 12:33-0400 BP Diastolic 63 mm[Hg] [facility] 01-04-2020 12:33-0400 BP Systolic 115 mm[Hg] [facility] 01-04-2020 12:33-0400 Height 162.6 cm [facility] 01-04-2020 12:33-0400 Pulse (Heart Rate) 83 /min [facility] 01-04-2020 12:33-0400 Pulse Oximetry 97 % [facility] 12-23-2019 21:12-0400 BMI (Body Mass Index) 32.96 kg/m2 [facility] [place] 12-23-2019 21:12-0400 Body Temperature 98.71 [degF] [facility], [place] 12-23-2019 21:12-0400 Body weight 87.09 kg [facility], [place] 12-23-2019 21:12-0400 BP Diastolic 69 mm[Hg] [facility] 12-23-2019 21:12-0400 BP Systolic 129 mm[Hg] [facility] [place] 12-23-2019 21:12-0400 Pulse (Heart Rate) 102 /min [facility], [place] 12-23-2019 21:12-0400 Pulse Oximetry 100 % [facility], [place] 12-23-2019 21:12-0400 Respiratory Rate 18 /min [facility], [place] 10-22-2019 12:21-0400 BMI (Body Mass Index) 33.3 kg/m2 Arin Sargent [facility], [place] 10-22-2019 12:21-0400 Body Temperature 98.8 [degF] Arin Celeste [facility] , [place] 10-22-2019 12:21-0400 Body weight 88 kg Arin Celeste [facility] , [place] 10-22-2019 12:21-0400 BP Diastolic 67 mm[Hg] [facility] , [place] 10-22-2019 12:21-0400 BP Systolic 113 mm[Hg] [facility] , [place] 10-22-2019 12:21-0400 Height 162.6 cm [facility] [place] 10-22-2019 12:21-0400 Pulse (Heart Rate) 77 /min Arin Emma [facility], [place] 10-22-2019 12:21-0400 Pulse Oximetry 98 % [facility] , [place] 10-22-2019 12:21-0400 Respiratory Rate 18 /min Arin Emma Celeste [place], [place] 04-06-2019 13:49-0500 Pulse Oximetry 98 % Bea Jacobs [facility], [place] 04-06-2019 13:39-0500 BP Diastolic 92 mm[Hg] [facility], [place] 04-06-2019 13:39-0500 BP Systolic 119 mm[Hg] [facility], [place] 04-06-2019 13:37-0500 Body Temperature 97.59 [degF] [facility] [place], [place] 04-06-2019 13:37-0500 Body weight 84.82 kg [facility] [place] 04-06-2019 13:37-0500 Pulse (Heart Rate) 77 /min [facility] [place], [place] 04-06-2019 13:37-0500 Respiratory Rate 16 /min [place], [place] Encounters Encounter Date Encounter Type Care Provider Facility Start: 05-15-2023 End: 05-15-2023 ambulatory YANI CALIX Not Available Start: 04-01-2023 End: 04-01-2023 Emergency department patient visit BEA JACOBS [facility] Start: 02-26-2023 ambulatory Redd Dueñas acility:[facility] Start: 02-13-2023 End: 02-14-2023 ambulatory [facility] Start: 12-22-2022 End: 12-22-2022 Emergency department patient visit BEA JACOBS [facility] Start: 12-19-2022 End: 12-19-2022 Emergency department patient visit Matthew Tafoya MD Work Phone: [facility] ED Comment on above: Acute cystitis witho ut hematuria (Primary Dx); Vaginal yeast infection Start: 12-06-2022 End: 12-06-2022 Emergency department patient visit Graham Choe Facility:[facility] Start: 12-06-2022 End: 12-06-2022 Emergency department patient visit Graham Choe [facility] Start: 06-16-2022 End: 06-16-2022 Emergency department patient visit [facility] Start: 06-16-2022 End: 06-16-2022 Emergency department patient visit Hoang Santos MD Work Phone: [facility] ED Comment on above: Nausea and vomiting, unspecified vomiting type (Primary Dx); Intractable headache, unspecified chronicity pattern, unspecified headache type Start: 04-12-2022 End: 04-12-2022 Emergency department patient visit [facility] Start: 03-13-2022 End: 03-13-2022 Emergency department patient visit Bea Jacobs MD Work Phone: [facility] ED Comment on above: Acute midline low ba ck pain without sciatica (Primary Dx) Start: 11-29-2021 End: 11-29-2021 Emergency department patient visit Bea Jacobs MD Work Phone: [facility] ED Comment on above: Hordeolum externum o f right lower eyelid (Primary Dx) Start: 10-24-[address] DOCTOR FRANCISCO Facility :[facility] Start: 10-17-[address] DOCTOR FRANCISCO Facility :[facility] Start: 10-10-[address] DOCTOR FRANCISCO Facility :[facility] Start: 10-03-[address] DOCTOR FRANCISCO Facility :[facility] Start: 10-03-2021 End: 10-05-2021 Evaluation and management of inpatient DR YANI CALIX Facility:[facility] Start: 10-01-2021 End: 10-01-[address] MARCK ESTES Facility:[facility] Start: 09-29-2021 End: 09-29-[address] MARCK ESTES Facility:[facility] Start: 09-26-2021 End: 09-26-[address] YANI CALIX Facility:[facility] Start: 09-26-2021 End: 09-26-[address] MARCK ESTES Facility:[facility] Start: 09-22-2021 End: 09-22-[address] YANI CALIX Facility:[facility] Start: 09-19-2021 End: 09-19-[address] YANI CALIX Facility:[facility] Start: 09-15-2021 End: 09-15-[address] YANI CALIX Facility:[facility] Start: 09-12-2021 End: 09-12-[address] MARCK ESTES Facility:[facility] Start: 09-08-2021 End: 09-08-[address] YAIN CALIX Facility:[facility] Start: 09-05-2021 End: 09-05-[address] MARCK ESTES Facility:[facility] Start: 08-30-2021 End: 08-30-[address] YANI CALIX Facility:[facility] Start: 08-29-2021 End: 08-30-[address] DOCTOR FRANCISCO Facility:[facility] Start: 08-24-2021 End: 08-24-[address] MARCK ESTES Facility:[facility] Start: 07-30-2021 End: 07-31-[address] YANI CALIX Facility:[facility] Start: 07-17-2021 End: 07-18-[address] YANI CALIX Facility:[facility] Start: 06-18-2021 End: 06-18-[address] YANI CALIX Facility:[facility] Start: 06-02-[address] YANI CALIX Facility :[facility] Start: 05-31-2021 End: 01-28-2022 ambulatory DAVID C PERNI [facility] Start: 05-22-2021 End: 05-22-2021 Emergency department patient visit Hoang Santos MD Work Phone: [facility] ED Comment on above: COVID-19 virus infec tion (Primary Dx); Second trimester Start: 04-12-2021 End: 04-12-2021 Emergency department patient visit Dana Redman MD Work Phone: [facility] ED Comment on above: Depression during pr egnancy in first trimester (Primary Dx); Dehydration Start: 04-01-2021 End: 04-01-2021 Emergency department patient visit [facility] Start: 03-29-2021 End: 03-29-2021 Emergency department patient visit [facility] Start: 03-25-2021 End: 03-25-2021 Emergency department patient visit RENELuther ACUÑA [facility] Start: 02-10-2021 End: 02-10-2021 Emergency department patient visit Braydon May MD Work Phone: [facility] ED Comment on above: Threatened miscarria ge in early (Primary Dx) Start: 12-10-2020 End: 12-10-2020 Emergency department patient visit Bea Jacobs MD Work Phone: [facility] ED Comment on above: Symptoms of dehydrat ion (Primary Dx); Nausea vomiting and diarrhea Start: 08-02-2020 End: 08-07-2020 Evaluation and management of inpatient BEA JACOBS [facility] Start: 08-01-2020 End: 08-02-2020 Emergency department patient visit Bea Jacobs Work Phone: [facility] ED Comment on above: Suicidal thoughts (P rimary Dx); Depression with suicidal ideation Start: 05-22-2020 End: 05-26-2020 Patient encounter procedure [facility] Start: 03-22-2020 End: 03-26-2020 Patient encounter procedure [facility] Start: 01-18-2020 End: 01-18-2020 Subsequent hospital visit by physician Perla LOR[facility] Comment on above: Palpitations Start: 01-04-2020 End: 01-04-2020 Patient encounter procedure JUANITO HERNANDEZ [facility] Ambulatory Start: 01-04-2020 End: 01-04-2020 Office outpatient visit 25 minutes Juanito Hernandez Work Phone: [facility] Comment on above: Anxious depression ( Primary Dx); Smoker; Weight gain; Fatigue, unspecified type; Screening cholesterol level Start: 12-23-2019 End: 12-23-2019 Emergency department patient visit Hoang Santos Work Phone: [facility] ED Comment on above: Bronchitis (Primary Dx) Start: 11-22-2019 End: 11-22-2019 Patient encounter procedure [facility] Start: 11-12-2019 End: 11-12-2019 Patient encounter procedure [facility] Start: 11-01-2019 End: 11-01-2019 Subsequent hospital visit by physician [facility] Comment on above: Exposure to COVID-19 virus; Cough in adult patient Start: 10-22-2019 End: 10-22-2019 Emergency department patient visit Arin Carter Work Phone: [facility] ED Comment on above: Acute bronchitis, un specified organism (Primary Dx); Tobacco abuse; Encounter for laboratory testing for COVID-19 virus Start: 04-06-2019 End: 04-06-2019 Emergency department patient visit Bea Jacobs Work Phone: [facility] ED Comment on above: Bronchitis (Primary Dx); Acute sinusitis, recurrence not specified, unspecified location Start: 11-11-2017 End: 11-12-2017 Emergency department patient visit Aicha Méndez Facility:[place] Start: 11-11-2017 End: 11-11-2017 Ambulatory Aicha Méndez Work Phone: [facility] Start: 01-20-2017 [facility] Start: 01-16-2017 Ambulatory [facility] Procedures Date Procedure Procedure Detail Performing Clinician Start: 12-19-2022 Urinalysis microscop ic only Matthew Tafoya MD Work Phone: Start: 12-19-2022 Urnls dip stick/tabl et rgnt auto w/o microscopy Matthew Tafoya MD Work Phone: Start: 06-16-2022 Ct head/brain w/o co ntrast material Hoang Santos MD Work Phone: Start: 06-16-2022 Urnls dip stick/tabl et rgnt auto w/o microscopy Hoang Santos MD Work Phone: Start: 06-16-2022 Basic metabolic pane l calcium total Hoang Santos MD Work Phone: Start: 03-13-2022 Radex spine lumbosac ral minimum 4 views Bea Jacobs MD Work Phone: Start: 10-03-2021 Delivery of Products of Conception, External Approach DR DOCTOR FRANCISCO Start: 10-03-2021 Division of Female Perineum, External Approach DR DOCTOR FRANCISCO Start: 10-03-2021 Drainage of Amniotic Fluid, Therapeutic from Products of Conception, Via Natural or Artificial Opening DR DOCTOR FRANCISCO Start: 10-03-2021 Introduction of Othe r Hormone into Peripheral Vein, Percutaneous Approach DR DOCTOR FRANCISCO Start: 10-03-2021 Repair Perineum Musc le, Open Approach DR DOCTOR FRANCISCO Start: 05-22-2021 COVID-19, RAPID Hoang Santos MD Work Phone: Start: 04-12-2021 Basic metabolic pane l calcium total Dana Redman MD Work Phone: Start: 02-10-2021 Gonadotropin chorion ic quantitative Braydon May MD Work Phone: Start: 02-10-2021 Urinalysis microscop ic only Braydon May MD Work Phone: Start: 02-10-2021 Urnls dip stick/tabl et rgnt auto w/o microscopy Braydon May MD Work Phone: Start: 12-10-2020 Gonadotropin chorion ic qualitative Bea Jacobs MD Work Phone: Start: 08-01-2020 Drug screen class list a Bea Jacobs Work Phone: Start: 08-01-2020 Assay of salicylate Chr chelsea Danilo Jacobs Work Phone: Start: 08-01-2020 Assay of thyroid stimulating hormone tsh Bea Jacobs Work Phone: Start: 08-01-2020 Basic metabolic pane l calcium total Bea Jacobs Work Phone: Start: 08-01-2020 Blood count complete auto&auto difrntl wbc Bea Jacobs Work Phone: Start: 08-01-2020 Gonadotropin chorion ic qualitative Bea Jacobs Work Phone: Start: 08-01-2020 Assay of acetaminophen Bea Jacobs Work Phone: Start: 08-01-2020 Assay of ethanol Noel Jacobs Work Phone: Start: 08-01-2020 COVID-19, RAPID Celso Jacobs Work Phone: Start: 03-22-2020 Microscopic observat ion [Identifier] in Cervix by Cyto stain Braydon May MD Work Phone: Start: 01-18-2020 Assay of thyroid stimulating hormone tsh Perla Rm Work Phone: Start: 01-18-2020 Blood count complete auto&auto difrntl wbc Perla Rm Work Phone: Start: 01-18-2020 Comprehensive metabo lic panel Perla Rm Work Phone: Start: 04-06-2019 Radiologic exam ches t 2 views Bea Jacobs Work Phone: Start: 04-06-2019 BASIC METABOLIC PANE L W/ REFLEX TO MG FOR LOW K Bea Jacobs Work Phone: Start: 04-06-2019 Blood count complete auto&auto difrntl wbc Bea Jacobs Work Phone: Start: 04-06-2019 Fibrin dgradj produc ts d-dimer quantitative Bea Jacobs Work Phone: Start: 04-06-2019 Gonadotropin chorion ic qualitative Bea Jacobs Work Phone: Excision of bunion [facility] is Plan of Treatment Date Care Activity Detail Author Start: 03-22-2023 Screening for malign ant neoplasm of cervix Pap smear [facility] Start: 12-03-2022 Influenza vaccination Flu vaccine (# 1) [facility] Start: 03-29-2022 Screening for Chlamy deisy trachomatis [facility] Start: 01-03-2022 Influenza vaccination Flu vaccine (# 1) [facility] Start: 12-03-2021 Influenza vaccination Flu vaccine (# 1) [facility] Start: 05-31-2021 End: 05-31-2021 Patient encounter procedure 05/31/2021 Routine Perinatology [facility] Start: 01-17-2021 Depression Monitoring Depression [place] valle [facility] Start: 01-03-2021 Influenza vaccination Flu vaccine (# 1) [facility] Start: 04-04-2020 End: 01-03-2021 Complete blood count with white cell differential, manual CBC and Differential Lab Routine Fatigue, unspecified type Expected: 04/04/2020 (Approximate), Expires: 01/03/2021 [facility] Comment on above: Expected: 04/04/2020 (Approximate), Expires: 01/03/2021 Start: 04-04-2020 End: 01-03-2021 Comprehensive metabolic 2000 panel Comprehensive Metabolic Panel Lab Routine Fatigue, unspecified type Expected: 04/04/2020 (Approximate), Expires: 01/03/2021 [facility] Comment on above: Expected: 04/04/2020 (Approximate), Expires: 01/03/2021 Start: 04-04-2020 End: 01-03-2021 Magnesium [Mass/Vol] Magnesium Level Lab Routine Fatigue, unspecified type Expected: 04/04/2020 (Approximate), Expires: 01/03/2021 [facility] Comment on above: Expected: 04/04/2020 (Approximate), Expires: 01/03/2021 Start: 02-18-2020 End: 02-18-2020 Office Visit 02/18/2020 Office Visit Family Medicine Perla Rm, DO [address] [place] [address] [facility] Start: 02-15-2020 End: 02-15-2020 Office Visit 02/15/2020 Office Visit Primary Care Juanito Hernandze MD [facility] [place] [address] [phone] [facility] Start: 01-04-2020 Influenza vaccination [place], [place] Start: 01-04-2020 Influenza vaccinatio n given Sequential Influenza Vaccine (#1) [facility] Start: 12-12-2019 DTaP/Tdap/Td vaccine (7 - Td or Tdap) DTaP/Tdap/Td vaccine (7 - Td or Tdap) [facility] Start: 07-16-2019 Screening for Chlamy deisy trachomatis Chlamydia Screening [facility] Start: 01-03-2019 Influenza vaccination Flu vaccine (# 1) [place], [place] Start: 2018 Cervical cancer screen Cervical canc er screen [place] Start: 2018 Screening for malign ant neoplasm of cervix [facility] Start: 2016 DTaP/Tdap/Td vaccine (1 - Tdap) DTaP/Tdap/Td vaccine (1 - Tdap) [facility] Start: 08-15-2015 Hepatitis C screening Hepatitis C sc reen [facility] Start: 2013 Chlamydia screen Chlamydia screen [place], [place] Start: 2013 COVID-19 Vaccine (1) COVID-19 Vaccin e (1) [facility] Work Phone: Start: 2013 Screening for Chlamy deisy trachomatis Chlamydia screen [facility] Start: 2012 HIV screen HIV screen [place], [place] Start: 2012 HIV screening HIV screen [facility] Start: 03-05-2010 Varicella vaccine (2 of 2 - 2-dose childhood series) Varicella vaccine (2 of 2 - 2-dose childhood series) [facility] Start: 2009 COVID-19 Vaccine (1) COVID-19 Vaccin e (1) [facility] Start: 2009 Depression Monitoring Depression [facility] Start: 2008 DTaP/Tdap/Td vaccine (1 - Tdap) DTaP/Tdap/Td vaccine (1 - Tdap) [place], [place] Start: 2008 HPV vaccine (1 - 2-d ose series) HPV vaccine (1 - 2-dose series) [facility] Start: 2008 HPV vaccine (1 - Fem man 2-dose series) HPV vaccine (1 - Female 2-dose series) [place] Start: 2008 Vaccination for [place] n papillomavirus HPV Vaccines (1 - 2-dose series) [facility] Start: 08-15-2003 Pneumococcal 0-64 ye ars Vaccine (1 - PCV) Pneumococcal 0-64 years Vaccine (1 - PCV) [facility] Start: 08-15-2003 Pneumococcal 0-64 ye ars Vaccine (1 of 1 - PPSV23) Pneumococcal 0-64 years Vaccine (1 of 1 - PPSV23) [place] Start: 08-15-2003 Pneumococcal 0-64 ye ars Vaccine (1 of 2 - PPSV23) Pneumococcal 0-64 years Vaccine (1 of 2 - PPSV23) [facility] Start: 2002 COVID-19 Vaccine (1) COVID-19 Vaccin e (1) [facility] Start: 2000 History and physical examination, annual for health maintenance Wellness Visit [facility] Start: 1998 Varicella Vaccine (1 of 2 - 2-dose childhood series) Varicella Vaccine (1 of 2 - 2-dose childhood series) [facility] Start: 02-13-1998 COVID-19 Vaccine (#1) COVID-19 Vacci ne (#1) [facility] Start: 1997 Depression screening using PHQ-9 (Patient Health Questionnaire 9) score Depression Screening (PHQ9) [facility] Start: 1997 Hepatitis C screening Hepatitis C sc reen [facility] Start: 1997 Screening for malign ant neoplasm of cervix Pap Smear [facility] Start: 1997 Tetanus vaccination Tetanus: Every [address] [facility] End: 01-03-2021 Cholesterol [Mass/Vol] Cholesterol, Total Lab Routine Screening cholesterol level 1 Occurrences starting 01/04/2020 until 01/03/2021 [facility] Comment on above: 1 Occurrences starti ng 01/04/2020 until 01/03/2021 End: 10-22-2019 COVID-19 COVID-19 Lab Routine One Time for 1 Occurrences starting 10/22/2019 until 10/22/2019 [place] Comment on above: One Time for 1 Occur rences starting 10/22/2019 until 10/22/2019 End: 11-01-2019 Covid-19 Ambulatory Covid-19 Ambulatory Lab Routine Exposure To Covid-19 Virus Cough in adult patient 1 Occurrences starting 11/01/2019 until 11/01/2019 [place] Comment on above: 1 Occurrences starti ng 11/01/2019 until 11/01/2019 Covid-19 Ambulatory Covid-19 Amb ulatory Lab Routine Exposure to COVID-19 virus Cough in adult patient 11/01/2019 11:[place] End: 02-10-2021 Culture, Urine Culture, Urine Microbiology Routine Once for 1 Occurrences starting 02/10/2021 until 02/10/2021 [facility] Work Phone: Comment on above: Once for 1 Occurrenc es starting 02/10/2021 until 02/10/2021 Culture, Urine Culture, Urine Microbiology Routine 02/10/2021 5:41 PM EDT [facility] Work Phone: End: 12-19-2022 Culture, Urine [facility] Comment on above: Once for 1 Occurrenc es starting 12/19/2022 until 12/19/2022 End: 10-22-2019 MDI Treatment MDI Treatment Respiratory Care Routine One Time for 1 Occurrences starting 10/22/2019 until 10/22/2019 [facility] [place] Comment on above: One Time for 1 Occur rences starting 10/22/2019 until 10/22/2019 MDI Treatment MDI Treatment Respiratory Care Routine Every 6hr As Needed until discontinued starting 10/22/2019 [facility], [place] Comment on above: Every 6hr As Needed until discontinued starting 10/22/2019 End: 01-03-2021 TSH Qn TSH with Reflex Free T4 Lab Routine Weight gain Fatigue, unspecified type 1 Occurrences starting 01/04/2020 until 01/03/2021 [facility] Comment on above: 1 Occurrences starti ng 01/04/2020 until 01/03/2021 Immunizations Immunization Date Immunization Notes Care Provider [place] NEGATED: Highlighted row has not occurred!06-13-2020 influenza virus vaccine, unspecified formulation Graham Choe [facility] Payers Date Payer Category Payer Medicaid [id number] 2019 Unknown [id number] 2018 Medicaid [id number] 2018 Unknown [id number] 2018 Unknown [id number] 2015 Unknown [id number] 2014 Unknown [id number] 2014 Unknown [employer] [id number] 2014-Present Indemnity [id number] 1997 Unknown [id number] 2.16.840.1.295638.3.579.2.903 1997 Unknown [id number] 2.16.840.1.619629.3.579.2.900 1997 Unknown [id number] 2.16.840.1.066776.3.579.2.176 1997 Unknown [id number] 2.16.840.1.299707.3.579.2.903 1997 Unknown [id number] 2.16.840.1.543898.3.579.2.903 1997 Unknown [id number] 2.16.840.1.809360.3.579.2.903 1997 Unknown [id number] 2.16.840.1.531006.3.579.2.903 1997 Unknown [id number] 2.16.840.1.700144.3.579.2.903 1997 Unknown [id number] 2.16.840.1.770249.3.579.2.175 1997 Unknown [id number] 2.16.840.1.759119.3.579.2.593 1997 Unknown [id number] 2.16.840.1.641010.3.579.2.593 1997 Unknown [id number] 2.16.840.1.800911.3.579.2.593 1997 Unknown [id number] 2.16.840.1.958137.3.579.2.593 1997 Unknown [id number] 2.16.840.1.096120.3.579.2.593 1997 Unknown [id number] 2.16.840.1.905469.3.579.2.593 1997 Unknown [id number] 2.16.840.1.481571.3.579.2.593 1997 Unknown [id number] 2.16.840.1.153980.3.579.2.593 1997 Unknown [id number] 2.16.840.1.741084.3.579.2.593 1997 Unknown [id number] 2.16.840.1.125652.3.579.2.593 1997 Unknown [id number] 2.16.840.1.994775.3.579.2.593 1997 Unknown [id number] 2.16.840.1.225033.3.579.2.593 1997 Unknown [id number] 2.16.840.1.686427.3.579.2.593 1997 Unknown [id number] 2.16.840.1.908885.3.579.2.593 1997 Unknown [id number] 2.16.840.1.931979.3.579.2.593 1997 Unknown [id number] 2.16.840.1.315256.3.579.2.593 1997 Unknown [id number] 2.16.840.1.422376.3.579.2.593 1997 Unknown [id number] 2.16.840.1.473235.3.579.2.593 1997 Unknown [id number] 2.16.840.1.885585.3.579.2.593 1997 Unknown [id number] 2.16.840.1.515498.3.579.2.593 1997 Unknown [id number] 2.16.840.1.074735.3.579.2.593 1997 Unknown [id number] 2.16.840.1.418557.3.579.2.593 1997 Unknown [id number] 2.16.840.1.048675.3.579.2.593 1997 Unknown [id number] 2.16.840.1.762739.3.579.2.727 1997 Unknown [id number] 2.16.840.1.643270.3.579.2.174 1997 Unknown [id number] 2.16.840.1.041166.3.579.2.174 1997 Unknown [id number] 2.16.840.1.377419.3.579.2.174 1997 Unknown [id number] 2.16.840.1.688771.3.579.2.174 1997 Unknown [id number] 2.16.840.1.070962.3.579.2.174 1997 Unknown [id number] 2.16.840.1.836919.3.579.2.174 1997 Unknown [id number] 2.16.840.1.431060.3.579.2.1259 1959 Self-pay [id number] 1959 Self-pay 1959 Unknown [id number] 1.2.840.446614.1.13.239.2.7.3.6 [id number] Social History Date Type Detail Facility Tobacco smoking stat [facility] Unknown if ever smoked [facility] Start: 1997 [facility] Start: 04-06-2019 End: 11-29-2021 Tobacco smoking status [facility]IS Current every day smoker [place] History of tobacco use Cigarette Smoker M [place], [place] Start: 04-06-2019 End: 06-16-2022 Cigarettes smoked current (pack per day) - Reported [place] Start: 04-06-2019 End: 11-29-2021 Alcohol intake Ex-drinker (finding) [facility] Start: 04-06-2019 End: 12-19-2022 History SDOH Alcohol Frequency 1 [place] Exposure to SARS-CoV -2 (event) Unable to assess [place] Start: 11-01-2019 End: 06-16-2022 Tobacco use and exposure Never used [place] Exposure to SARS-CoV -2 (event) Yes [place] Start: 01-04-2020 End: 06-16-2022 Alcohol intake Current drinker of alcohol (finding) [facility] Start: 12-05-2018 Alcohol Comment occassional [facility] Start: 11-19-2021 End: 06-16-2022 Exposure to SARS-CoV-2 (event) Not sure [facility] Start: 11-29-2021 Tobacco Comment 5cigs/day 2 [employer] Work Phone: Start: 06-16-2022 [facility] [employer] History of tobacco use Current smoker [employer] Phone: Start: 06-16-2022 Alcohol Comment occ. Some tonight [employer] Work Phone: Start: 08-08-2020 Tobacco smoking status Heavy t obacco smoker (finding) [facility] Sex Assigned At Female [facility] Functional Status Date Assessment Result Facility 12-06-2022 Functional Status N/A [facility] Clinical Notes 12-10-2020 to 12-06-2022 Note Date & Type Note Facility 12-06-2022 Hospital Discharg e instructions Patient Education 12/06/2022 16:29:04 Suicidal Feelings: How to Help Yourself Suicidal Feelings: How to Help Yourself Suicide is when you end your own life. Suicidal ideation includes expressing thoughts about, or a preoccupation with, ending your own life. There are many things you can do to help yourself feel better when struggling with these feelings. Many services and people are available to support you and others who struggle with similar feelings. If you ever feel like you may hurt yourself or others, or have thoughts about taking your own life, get help right away. To get help: Go to your nearest emergency department. Call your local emergency services (911 in the [place] Call the [facility] and human services helpline (211 in the [place] Call or text a suicide hotline to speak with a trained counselor. The following suicide hotlines are available in the [place]: ?3-295-517-TALK ( or 576 in the [place] ?2-095-KGYOHUN ( ). ?Text 910484. This is the Crisis Text Line in the [place] ? . This is a hotline for Iranian speakers. ? . This is a hotline for TTY users. ?9-891-2-U-YASHIRA ( ). This is a hotline for lesbian, delgadillo, bisexual, transgender, or questioning youth. ?For a list of hotlines in [place], visit suicide.org/hotlines/internation al/qbiigo-pjrljhu-watpsxpf.html Contact a crisis center or a local suicide prevention center. To find a crisis center or suicide prevention center: ?Call your local hospital, clinic, community service organization, mental health center, social service provider, or health department. Ask for help with connecting to a crisis center. ?For a list of crisis centers in the [place], visit: suicidepreventionlifeline.org ?For a list of crisis centers in [place], visit: suicideprevention.ca How to help yourself feel better Promise yourself that you will not do anything bad or extreme when you have suicidal feelings. Remember the times you have felt hopeful. ?Many people have gotten through suicidal thoughts and feelings, and you can too. ?If you have had these feelings before, remind yourself that you can get through them again. Let family, friends, teachers, or counselors know how you are feeling. Do not separate yourself from those who care about you and want to help you. ?Talk with someone every day, even if you do not feel like talking to anyone or being with other people. ?Tten-xd-vuiw conversation is best to help them understand your feelings. Contact a mental health care provider and work with this person regularly. Make a safety plan that you can follow during a crisis. ?Include phone numbers of suicide prevention hotlines, mental health professionals, and trusted friends and family members you can call during an emergency. ?Save these numbers on your phone. If you are thinking of taking a lot of medicine, give your medicine to someone who can give it to you as prescribed. ?If you are on antidepressants and are concerned you will overdose, tell your health care provider so that he or she can give you safer medicines. Try to stick to your routines and follow a schedule every day. Make self-care a priority. Make a list of realistic goals, and cross them off when you achieve them. Accomplishments can give you a sense of worth. Wait until you are feeling better before doing things that you find difficult or unpleasant. Do things that you have always enjoyed to take your mind off your feelings. ?Try reading a book, or listening to or playing music. ?Spending time outside, in nature, may help you feel better. Follow these instructions at home: Visit your primary health care provider every year for a physical and a mental health checkup. Take igve-jay-uhzlonf and prescription medicines only as told by your health care provider. ?Ask your health care provider about the possible side effects of any medicines you are taking. ?Ask your health care provider about whether suicidal ideation is a possible side effect of any of your medicines. Learn about suicidal ideation and what increases the risk for the development of suicidal thoughts. Eat a well-balanced diet, and eat regular meals. Get plenty of rest. Exercise if you are able. Just 30 minutes of exercise each day can help you feel better. Keep your living space well lit. Do not use alcohol or drugs. Remove these substances from your home. General recommendations Remove weapons, poisons, knives, and other deadly items from your home. Work with a mental health care provider as needed. When you are feeling well, write yourself a letter with tips and support that you can read when you are not feeling well. Remember that life's difficulties can be sorted out with help. Conditions can be treated, and you can learn behaviors and ways of thinking that will help you. ?Work with your health care provider or counselor to learn ways of coping with your thoughts and feelings. Where to find more information National Suicide Prevention Lifeline: www.suicidepreventionlifeline.or g Hopeline: www.hopeline.[employer] [place] [employer] for Suicide Prevention: www.afsp.org The Yashira Project (for lesbian, delgadillo, bisexual, transgender, or questioning youth): www.thetrevorproject.org [place] of Mental Health: www.nimh.nih.gov/health/topics/s uicide-prevention Suicide Prevention Resources: afsp.org/jmkdcno-yfzsfgjymf-zalv urces Contact a health care provider if: You feel as though you are a burden to others. You feel agitated, angry, vengeful, or have extreme mood swings. You have withdrawn from family and friends. You are frequently using drugs or alcohol. Get help right away if: You are talking about suicide or wishing to . You start making plans for how to commit suicide. You feel that you have no reason to live. You start making plans for putting your affairs in order, saying goodbye, or giving your possessions away. You feel guilt, shame, or unbearable pain, and it seems like there is no way out. You are engaging in risky behaviors that could lead to . If you have any of these thoughts or symptoms, get help right away: Go to your nearest emergency department or crisis center. Call emergency services (911 in the [place] Call or text a suicide crisis helpline. Summary Suicide is when you take your own life. Suicidal feelings are thoughts about ending your own life. Promise yourself that you will not do anything bad or extreme when you have suicidal feelings. Let family, friends, teachers, or counselors know how you are feeling. Get help right away if you start making plans for how to commit suicide. This information is not intended to replace advice given to you by your health care provider. Make sure you discuss any questions you have with your health care provider. Document Revised: 11/15/2021 Document Reviewed: 08/30/2021 [employer] Patient Education 2022 [employer]. Follow Up Care 12/06/2022 13:21:39 With:[facility] Address:Unknown When:12/09/2022 16:28:40 Comments:Follow safety plan. Return to the emergency department with any worsening symptoms. With:GAYE JOSUE Address: [address] [facility] (1) When:12/09/2022 16:28:22 Comments:Call the office of your primary care doctor to arrange for follow-up within the above-stated timeframe. Follow-up with your primary care doctor about this ED visit. You should review your labs, imaging, and diagnoses from this ED visit with your primary care physician. There are occasionally non-emergent findings that require additional follow-up after your ED visit. If you were prescribed medications you should discuss possible side-effects and drug interactions with your pharmacist. Call 911 or go to the nearest Emergency Department if you develop any new or worsening symptoms. Repeat liver function testing in 1 month. [facility] 12-06-2022 Evaluation + Plan note Extrac rayray from: Title:ED Note Author:Graham Choe DO Date: Situational stress (F43.9: R eaction to severe stress, unspecified) Orders: Automated Diff CBC w/ Auto Diff Comprehensive Metabolic Panel Drug Screen Urine ECG 12 Lead Adult eGFR Ethanol Level U Beta Hcg Qual [facility]07-28-2022 History of Present illness Narrative* Edelmira Jacobs RN - 11/29/2021 2:40 PM EDT Home med list reviewed with patient. [facility] [employer] Phone: 1(561) 718-641908-08-2021 History of Present illness Narrative* Perla Cunningham RN - 12/10/2020 8:28 PM EDT Discharge instructions given. Pt sent home with 1 alekfrmorgan. Aware to flower picker prescription. All questions answered. [facility] evaliklbiu [facility]* Diagnosis Symptoms of dehydration- Primary Nausea vomiting and diarrhea Nausea with vomiting documented in this encounter [employer] Phone: evalaoyyii note* Diagnosis Threatened miscarriage in early - Primary Threatened , unspecified as to episode of care documented in this encounter [employer] Phone: evalvenixz note* Diagnosis Depression during in first trimester- Primary Dehydration documented in this encounter [employer] Phone: evalxufbfs note* Diagnosis COVID-19 virus infection- Primary Second trimester documented in this encounter [employer] Phone: evalpzfqfy note* Diagnosis Hordeolum externum of right lower eyelid- Primary Hordeolum externum [facility]* Diagnosis Acute midline low back pain without sciatica- Primary documented in this encounter [facility] [employer] Phone: evaldhzrxw note* Diagnosis Nausea and vomiting, unspecified vomiting type- Primary Intractable headache, unspecified chronicity pattern, unspecified headache type documented in this encounter [facility] [employer] Phone: evalxjxfgq note* Diagnosis Acute cystitis without hematuria- Primary Acute cystitis Vaginal yeast infection Candidiasis of vulva and vagina documented in this encounter [facility] course Narrative No data available for this section [facility]* Attachments The following attachments cannot be sent through Care Everywhere. * Nausea and Vomiting (Bulgarian) * Diarrhea (Bulgarian) * Oral Rehydration (Bulgarian) documented in this [facility] [employer] Phone: Hospital Discharge instructions* Attachments The following attachments cannot be sent through Care Everywhere. * Miscarriage: Threatened (Bulgarian) documented in this [facility] [employer] Phone: Hospital Discharge instructions* Attachments The following attachments cannot be sent through Care Everywhere. * Dehydration (Bulgarian) documented in this [facility] [employer] Phone: Hospital Discharge instructions* Attachments The following attachments cannot be sent through Care Everywhere. * Coronavirus Disease (COVID-19): General Info (Bulgarian) documented in this [facility] Phone: Hospital Discharge instructions* Attachments The following attachments cannot be sent through Care Everywhere. * Styes and Chalazia (Bulgarian) [facility]* Attachments The following attachments cannot be sent through Care Everywhere. * Back Pain (Bulgarian) * Back: Stretches: Exercises (Bulgarian) documented in this [facility] Phone: Hospital Discharge instructions* Attachments The following attachments cannot be sent through Care Everywhere. * Headache (Bulgarian) documented in this [facility] Phone: Hospital Discharge instructions* Attachments The following attachments cannot be sent through Care Everywhere. * Vaginal Yeast Infection (Bulgarian) [facility] No data available for this section [facility] Summary Purpose Family History No Family History Records FoundNo Family History Records FoundNo Family History Records FoundNo Family History Records FoundNo Family History Records FoundNo Family History Records FoundNo Family History Records FoundNo Family History Records FoundNo Family History Records FoundNo Family History Records FoundNo Family History Records FoundNo Family History Records FoundNo Family History Records Found Advance Directives No Advanced Directives Records FoundDocuments on File Type Date Recorded Patient Hand Router Operator Expl anation Advance Directives and Living Will Power of Deck Worker Documents on File Type Date Recorded Patient Hand Router Operator Expl anation ACP-Advance Directive ACP-Power of Deck Worker Documents on File Type Date Recorded Patient Hand Router Operator Expl anation Advance Directives and Livin g Will 11/20/2019 12:00 AM Latest Code Status on File Code Status Date Activated Date Inactivated Comments Full Code 08/02/2020 2:38 AM 08/07/2020 4:35 PM Latest Code Status on File Code Status Date Activated Date Inactivated Comments Full Code 08/02/2020 2:38 AM 08/07/2020 4:35 PM Discharge Instructions * Instructions* Bea Jacobs MD - 04/06/2019 Over the counter sinus cold medications as discussed Only distilled or bottled water if doing sinus rinses * Attachments The following attachments cannot be sent through Care Everywhere. * Sinusitis (Bulgarian) * Sinus Rinse (Bulgarian) * Bronchitis (Bulgarian) documented in this encounter* Attachments The following attachments cannot be sent through Care Everywhere. * Smoking: Stopping (Bulgarian) * Bronchitis (Bulgarian) * Coronavirus Disease (COVID-19): General Info (Bulgarian) documented in this encounter* Attachments The following attachments cannot be sent through Care Everywhere. * Bronchitis (Bulgarian) documented in this encounter Assessments Diagnosis Bronchitis- Primary Bronchitis, not specified as acute or chronic Acute sinusitis, recurrence not specified, unspecified location Diagnosis Acute bronchitis, unspecified organism Tobacco abuse Tobacco use disorder Encounter for laboratory testing for COVID-19 virus Diagnosis Exposure to COVID-19 virus Cough in adult patient Diagnosis Bronchitis Bronchitis, not specified as acute or chronic Diagnosis Anxious depression- Primary Smoker Tobacco use disorder Weight gain Other symptoms concerning nutrition, metabolism, and development Fatigue, unspecified type Screening cholesterol level Screening for lipoid disorders Diagnosis Palpitations Diagnosis Suicidal thoughts- Primary Suicidal ideation Depression with suicidal ideation History of Present Illness * Juanito Hernandez MD - 01/04/2020 11:34 PM EDT Subjective Patient ID: Riri Dempsey is a 24 y.o. female. Patient is a 24-year-old female with history of anxiety and depression in the past came for follow-up main complaint #1 anxiety and inability to focus. 2 generalized fatigue #3 weight gain. Patient states that she had a traumatic experience with her boyfriend about a month back since thenand stays anxious and depressed. Patient denies any suicidal ideas depression is mild mostly anxious at times feels like her body comes out of her skin. Also has trouble sleeping. Depression Visit Type: initial Onset of symptoms: 1-4 weeks ago Progression since onset: unchanged Patient presents with the following symptoms: confusion, insomnia, nervousness/anxiety, palpitations, panic and weight gain. Patient is not experiencing: choking sensation, feelings of worthlessness, hypersomnia, hyperventilation, impotence, irritability, malaise, memory impairment, muscle tension, nausea, psychomotor agitation, psychomotor retardation, restlessness, shortness of breath, suicidal ideas, suicidal planningand thoughts of . Sleep quality: poor The following portions of the patient's history were reviewed and updated as appropriate: allergies, current medications, past family history, past medical history, past social history, past surgicalhistory, and problem list. Past Medical History: Diagnosis Date Anxiety Depression Past Surgical History: Procedure Laterality Date BUNIONECTOMY Review of Systems Constitutional: Positive for weight gain. Negative for activity change, appetite change, chills, diaphoresis, fatigue, fever, irritability and unexpected weight change. HENT: Negative for congestion. Eyes: Negative for visual disturbance. Respiratory: Negative for apnea, cough, choking, chest tightness, shortness of breath, wheezing andstridor. Cardiovascular: Positive for palpitations. Negative for chest pain and leg swelling. Gastrointestinal: Negative for abdominal pain, constipation, diarrhea and nausea. Genitourinary: Negative for difficulty urinating and impotence. Musculoskeletal: Negative for arthralgias. Skin: Negative for rash. Neurological: Negative for weakness. Psychiatric/Behavioral: Positive for confusion. Negative for suicidal ideas. The patient is nervous/anxious and has insomnia. Patient's Medications New Prescriptions ESCITALOPRAM OXALATE (LEXAPRO) 10 MG TABLET Take 1 (one) tablet (10 mg total) by mouth daily . TRAZODONE (DESYREL) 50 MG TABLET Take 1 (one) tablet (50 mg total) by mouth nightly as needed for sleep . Previous Medications No medications on file Modified Medications No medications on file Discontinued Medications ALBUTEROL (VOSPIRE ER) 4 MG 12 HR TABLET Take 1 (one) tablet (4 mg total) by mouth every 12 (twelve) hours for 14 days . DULOXETINE (CYMBALTA) 60 MG CAPSULE Take by mouth daily . RISPERIDONE (RISPERDAL) 0.25 MG TABLET Take 0.25 mg by mouth nightly . Objective Physical Exam Constitutional: Appearance: Normal appearance. She is obese. HENT: Head: Normocephalic. Right Ear: Tympanic membrane, ear canal and external ear normal. Left Ear: Tympanic membrane, ear canal and external ear normal. Nose: Nose normal. Mouth/Throat: Mouth: Mucous membranes are moist. Pharynx: Oropharynx is clear. Eyes: Extraocular Movements: Extraocular movements intact. Conjunctiva/sclera: Conjunctivae normal. Pupils: Pupils are equal, round, and reactive to light. Neck: Musculoskeletal: Neck supple. Cardiovascular: Rate and Rhythm: Normal rate. Pulses: Normal pulses. Heart sounds: Normal heart sounds. Pulmonary: Effort: Pulmonary effort is normal. Breath sounds: Normal breath sounds. Abdominal: General: Abdomen is flat. Bowel sounds are normal. Musculoskeletal: Normal range of motion. Skin: General: Skin is warm. Neurological: General: No focal deficit present. Mental Status: She is alert. Psychiatric: Attention and Perception: Attention and perception normal. Mood and Affect: Mood is anxious. Affect is not angry, tearful or inappropriate. Speech: Speech normal. Behavior: Behavior normal. Thought Content: Thought content normal. Judgment: Judgment normal. Assessment/Plan: Problem List Items Addressed This Visit Other Anxious depression - Primary Relevant Medications escitalopram oxalate (LEXAPRO) 10 MG tablet traZODone (DESYREL) 50 MG tablet Smoker About smoking cessation ways to quit and will effects spent about 3 to 5 minutes discussing about the same. Weight gain Lifestyle modification Relevant Orders TSH with Reflex Free T4 Fatigue Relevant Orders CBC and Differential Comprehensive Metabolic Panel Magnesium Level TSH with Reflex Free T4 Screening cholesterol level Relevant Orders Cholesterol, Total Juanito Hernandez MD documented in this encounter Additional Source Comments INFORMATION SOURCE (unrecogn ized section and content) DATE CREATED AUTHOR 10/29/2017 [facility] DATE CREATED AUTHOR AUTHOR'S ORGANIZ ATION 11/26/2017 [facility] DATE CREATED AUTHOR AUTHOR'S ORGANIZ ATION 01/04/2020 [facility] DATE CREATED AUTHOR AUTHOR'S ORGANIZ ATION 05/26/2020 [facility] DATE CREATED AUTHOR AUTHOR'S ORGANIZ ATION 08/07/2020 [facility] DATE CREATED AUTHOR AUTHOR'S ORGANIZ ATION 04/05/2021 [facility] DATE CREATED AUTHOR AUTHOR'S ORGANIZ ATION 04/08/2021 [facility] DATE CREATED AUTHOR AUTHOR'S ORGANIZ ATION 07/14/2021 [facility] DATE CREATED AUTHOR AUTHOR'S ORGANIZ ATION 04/27/2022 [facility] DATE CREATED AUTHOR AUTHOR'S ORGANIZ ATION [facility] DATE CREATED AUTHOR AUTHOR'S ORGANIZ ATION 04/03/2023 [facility] DATE CREATED AUTHOR AUTHOR'S ORGANIZ ATION 05/16/2023 [facility] DATE CREATED AUTHOR AUTHOR'S ORGANIZ ATION 05/19/2023 [facility] Reason for Visit (unrecogniz ed section and content) Reason Comments Shortness of Breath coughing with shortn ess of breath last 3 days. States it hurts to take deep breath. Reason Comments Cough pt gets recurrent br onchitis every year. She feels like she has it now. Reason Comments Wheezing Pt states that she h as urinary urgency Reason Comments Acute Visit discuss meds / wants labs Reason Comments Suicidal states doesnt feel c omfortable in her own body and thinks dying sounds better - no plan to harm self- having these thoughts off and on for a year- sees Kamryn Hagen for psych meds Reason Comments Emesis had a lot to drink on Friday and now I have been throwing up, been depressed because I am going through a breakup Reason Comments Vaginal Bleeding Pt had 3 positive pr egnancy tests at home and has some light pink spotting that started today. Pt has increased cramping. Pt is here because she wants confirmation. Reason Comments Nausea pt 12wk , c/ o lack of appetite for a month worsening depression Reason Comments Pharyngitis SORE THROAT FOR A FE W DAYS.WANTS TESTED FOR COVID Reason Comments Eye Problem Right eye painful an d burning - states thinks she has a stye Reason Comments Back Pain C/o mid-lower back p ain x 2 days. No known injury, 5 months post- with epidural Reason Comments Headache X few hours. Took Ex cedrin at home. Hx migraines Emesis Reason Comments Flank Pain Pain with inspiratio n starting last night. Under her ribs on the right Assessment & Plan Note - Juanito Hernandez MD - 01/04/2020 11:39 PM EDTAssessment & Plan Note - Juanito Hernandez MD - 01/04/2020 11:39 PM EDT Miscellaneous Notes (unrecog nized section and content) Associated Problem(s): Smoker About smoking cessation ways to quit and will effects spent about 3 to 5 minutes discussing about the same. Associated Problem(s): Weight gain Lifestyle modification documented in this encounter Ordered Prescriptions (unrec ognized section and content) Prescription Sig Dispensed Refills Start Date End Da te ondansetron (ZOFRAN ODT) 4 MG disintegrating tablet Take 1 tablet by mouth every 4-6 hours as needed for Nausea or Vomiting 15 tablet 0 12/10/2020 Prescription Sig Dispensed Refills Start Date End Da te predniSONE (DELTASONE) 20 MG tablet Take 3 tablets by mouth daily for 4 days First home dose 03/14/2022 12 tablet 0 03/13/2022 03/17/2022 cyclobenzaprine (FLEXERIL) 10 MG tablet Take 1 tablet by mouth 3 times daily as needed for Muscle spasms 15 tablet 0 03/13/2022 03/23/2022 ibuprofen (IBU) 600 MG tablet Take 1 tablet by mouth every 6 hours as needed for Pain 120 tablet 0 03/13/2022 Prescription Sig Dispensed Refills Start Date End Da te fluconazole (DIFLUCAN) 150 MG tablet Take 1 tablet by mouth once for 1 dose 1 tablet 0 12/19/2022 12/19/2022 sulfamethoxazole-trimetho prim (BACTRIM DS) 800-160 MG per tablet Take 1 tablet by mouth 2 times daily for 10 days 20 tablet 0 12/19/2022 12/29/2022 Scheduled Active and Recently Administ ered Medications (unrecognized section and content) Medication Order 12/08/2020 12/09/2020 12/10/2020 0.9 % sodium chloride bolus (COMPLETED) 1,000 mL, Intravenous, at 1,000 mL/hr, Administer over 1 Hours, ONCE, On 12/10/20 at 1915, For 1 dose 1914 (New Bag - Prov ider: Ricci Clancy RN)2020 (Stopped - Provider: Perla Cunningham RN) ondansetron (ZOFRAN) injection 4 mg (COMPLETED) 4 mg, Intravenous, ONCE, On 12/10/20 at 1915, For 1 dose 1915 (Given - Provid er: Ricci Clancy RN) ondansetron (ZOFRAN-ODT) disintegrating tablet 4 mg (COMPLETED) 4 mg, Oral, ONCE, On 12/10/20 at 2014, For 1 dose, Send home with pt 2021 (Given - Provid er: Perla Cunningham RN - Comment: Sent home with patient) Scheduled Medication Order 04/10/2021 04/11/2021 04/12/2021 0.9 % sodium chloride bolus (COMPLETED) 1,000 mL (11 mL/kg), IntraVENous, at 1,000 mL/hr, Administer over 1 Hours, ONCE, On Veronica 04/12/21 at 1830, For 1 dose 182 (New Bag - Prov ider: Albina Garibay RN)192 (Stopped - Provider: Rosy Stack RN) Scheduled Medication Order 03/11/2022 03/12/202203/1303/13/2022 dexamethasone (PF) (DECADRON) injection 10 mg (COMPLETED) 10 mg, Oral, ONCE, On Fri03/13/22 at 1045, For 1 dose 1036 (Given - Provid er: Aurea Russo RN) ketorolac (TORADOL) injection 60 mg (COMPLETED) Ketorolac is contraindicated in patients with advanced renal impairment and in patients at risk of renal failure due to volume depletion. For 65 years of age and older OR weight less than 50 kg, use 15 mg IV every 6 hours; MAX dose: 60 mg/day. Dose greater than 30 mg must be administered via intramuscular route. Do not administer for more than 5 days., 60 mg, IntraMUSCular, ONCE, 1 dose, On Fri03/13/22 at 1045, Do not administer for more than 5 days. 1036 (Given - Provid er: Aurea Russo RN) Scheduled Medication Order 06/14/2022 06/15/2022 06/16/2022 0.9 % sodium chloride bolus (COMPLETED) 1,000 mL (9.47 mL/kg), IntraVENous, at 1,000 mL/hr, Administer over 1 Hours, ONCE, On 06/16/22 at 0200, For 1 dose, For IV Hydration 0224 (New Bag - Prov ider: Deloris Pinto RN)0333 (Stopped - Provider: Deloris Pinto RN) ketorolac (TORADOL) injection 30 mg (COMPLETED) Ketorolac is contraindicated in patients with advanced renal impairment and in patients at risk of renal failure due to volume depletion. For 65 years of age and older OR weight less than 50 kg, use 15 mg IV every 6 hours; MAX dose: 60 mg/day. Dose greater than 30 mg must be administered via intramuscular route. Do not administer for more than 5 days., 30 mg, IntraVENous, ONCE, 1 dose, On 06/16/22 at 0200, Do not administer for more than 5 days. 0225 (Given - Provid er: Deloris Pinto RN) ondansetron (ZOFRAN) injection 4 mg (COMPLETED) 4 mg, IntraVENous, ONCE, 1 dose, On 06/16/22 at 0200 022 (Given - Provid er: Deloris Pinto RN) Scheduled Medication Order 12/17/2022 12/18/2022 12/19/2022 acetaminophen (TYLENOL) tablet 1,000 mg (COMPLETED) 1,000 mg, Oral, ONCE, 1 dose, On Veronica 12/19/22 at 1030, Maximum dose of acetaminophen is 4000 mg from all sources in 24 hours. 1032 (Given - Provid er: Dayan Alegria RN) fluconazole (DIFLUCAN) tablet 200 mg (COMPLETED) 200 mg, Oral, ONCE, 1 dose, On Veronica 12/19/22 at 1100 1054 (Given - Provid er: Edilma Mariscal RN) ketorolac (TORADOL) injection 30 mg (COMPLETED) 30 mg, IntraMUSCular, ONCE, 1 dose, On Veronica 12/19/22 at 1045, Do not administer for more than 5 days. 1053 (Given - Provid er: Edilma Mariscal RN) Care Teams (unrecognized sec tion and content) Insurance Checker Relationship Specialty Start Date End Date Gaye Josue APRN - DIRECTOR OF [employer]ACH[employer]UC[employer] [address] [id number] PCP - General Family Nurse Practitioner 02/10/21 Insurance Checker Relationship Specialty Start Date End Date Gaye Josue APRN - DIRECTOR OF [employer] [address] [place] [address] PCP - General Family Nurse Practitioner 02/10/21 Insurance Checker Relationship Specialty Start Date End Date Gaye Josue APRN - DIRECTOR OF [employer] [address] [place] [address] PCP - General Family Nurse Practitioner 02/10/21 Insurance Checker Relationship Specialty Start Date End Date Gaye Josue ZOOGLER - DIRECTOR OF TE[employer]ER [employer]UC[employer] [address] [place] [address] PCP - General Family Nurse Practitioner 02/10/21 FOR RECORDS PERTAINING TO PATIENTS WHO ARE OR HAVE BEEN ENROLLED IN A CHEMICAL DEPENDENCY/SUBSTANCEABUSE PROGRAM, SOME INFORMATION MAY BE OMITTED. This clinical summary was aggregated from multiple sources. Caution should be exercised in using it in the provision of clinical care. This summary normalizes information from multiple sources, and as a consequence, information in this document may materially change the coding, format and clinical context of patient data. In addition, data may be omitted in some cases. CLINICAL DECISIONS SHOULD BE BASED ON THE PRIMARY CLINICAL RECORDS. [facility]. provides no warranty or guarantee of the accuracy or completeness of information in this document.
== END 2023-05-30 09:56 | disposition home or self-care (01) ==
LOC: NOMS 09:55
PROVIDERS: Visit Provider Obstetrics & Gynecology
DX: O30.001 Twin pregnancy, unspecified number of placenta and unspecified number of amniotic sacs, first trimester (principal); Z3A.01 Less than 8 weeks gestation of pregnancy
CPT/HCPCS: 76817

== ENCOUNTER 2023-06-20 07:18 | Outpatient (OUT) | payer OTHER, SELFPAY ==
--- OUTSIDE RECORDS SUMMARY | 2023-06-20 07:24 | XMS_ITS | CCD ---
Author Name Unknown Address [address] [place] [address] Organization [facility] Care Team Providers Care Pediatric Social Worker Name Role Phone GAYE JOSUE Unavailable Unavailable GAYE JOSUE Unavailable Unavailable Unavailable Unavailable Unavailable HoneyAicha fabian Maryjo Unavailable Unavailable Honey Aicha Maryjo Unavailable Unavailable Unavailable Primary Care Provider UnavailJuanito Rodriges Primary Care Provider JAMES HERNANDEZJETH RATHNARAJAIAChristin Attending U navailable SRINGERI, VIJETH RATHNARAJAIAH Primary Care U navailable Sringeri, Vijeth Rathnarajaiah Primary Care Prov ider Radha Carney Unavailable Perla Rm Primary Care Provider SRINGDARNELL, VIJETH RATHNARAJAIAH Primary Care U navailable [...] Unavailable LAUREENANY, GAYE Primary Care Unavailable Delany FURNITURE MAKER - TEAMCENTER CONSULTANT, Gaye Primary Care Provider Delany FURNITURE MAKER - TEAMCENTER CONSULTANT, Gaye Primary Care Provider MISC, DR AKINS Primary Care Unavailable YOGI, DR LOMELI Admitting Unavailable YOGI, DR LOMELI Attending Unavailable KARASIK, DR ACHARYA Consulting Unavailable KARASIK, DR ACHARYA Admitting Unavailable KARASIK, DR ACHARYA Attending Unavailable MISC, DR KAINS Primary Care Unavailable YOGI, DR LOMELI Consulting [...] Unavailable DR YANI CALIX Consulting Unavailable Liat FURNITURE MAKER - TEAMCENTER CONSULTANT, Gaye Primary Care Provider GAYE JOSUE Primary Care Physician Graham Choe Attending Unavailable GAYE JOSUE Primary Care Unavailable Liat FURNITURE MAKER - TEAMCENTER CONSULTANT, Gaye Primary Care Provider GAYE JOSUE Primary Care Unavailable HOANG SANTOS Attending Unavailable MATTHEW TAFOYA Attending Unavailable GAYE JOSUE Primary Care Unavailable BEA JACOBS Attending Unavailable GAYE JOSUE Primary Care Unavailable BEA JACOBS Attending Unavailable GAYE JOSUE Primary Care Unavailable GAYE JOSUE Referring Unavailable GAYE JOSUE Primary Care Unavailable GAYE JOSUE Primary Care Unavailable LELE VELASQUEZ Attending Unavailable Redd Velazquez Attending Unavailab Redd Higginbotham Admitting Unavailab le NO FAMILY, PHYSICIAN Primary Care Unavailable YANI CALIX Attending Unavailable Allergies Allergy Classification Reported Allergen(s) Allergy Type Date of Onset Reaction(s) Facility (1 source) No Known Medication Allergies; Translations: [No Known Medication Allergies] Propensity to adverse reactions (disorder) [facility] Repository Medications Current Medications Medication Drug Class(es) [...] 0 Active take 2 tablets by mo [facility] twice daily as needed clonazePAM (KLONOPIN) [...] mark th every four hours as needed Irpunawxxpehmfr-XQBH-ZW (DAYQUIL PO) Don e 1 tablet by [...] 02-13-2023 Abs. Basophil 0.01 k/uL Normal 0.00-0.20 [facility] Comment on above: Performed By: #### L IPR, T4, GLYHGB, T3 #### [facility] [address] [place] [address] Supervisor Dumping: Antoine Wilson MD #### CP, TSH, CDP, ZFAST #### [facility] [address] [place] [id number] Supervisor Dumping: Zayra Chapman MD Abs.Imm.Granulocyte 0.02 k/uL Normal 0.00-0.30 [facility] Comment on above: Performed By: #### L IPR, T4, GLYHGB, T3 #### [address] [id number] Supervisor Dumping: Antoine Wilson MD #### CP, TSH, CDP, ZFAST #### [facility] [address] [place] [phone] Supervisor Dumping: Zayra Chapman MD Abs.Neutrophil (Seg) 4.27 k/uL Normal 2.5-7.0 [facility] Comment on above: Performed By: #### L IPR, T4, GLYHGB, T3 #### [address] [phone] Supervisor Dumping: Antoine Wilson MD #### CP, TSH, CDP, ZFAST #### [facility] [address] [place] [address] Supervisor Dumping: Zayra Chapman MD Basophils/100 WBC (Bld) 0 % Normal 0-2 [facility] Comment on above: Performed By: #### L IPR, T4, GLYHGB, T3 #### [address] [phone] Supervisor Dumping: Antoine Wilson MD #### CP, TSH, CDP, ZFAST #### [facility] [address] [place] [address] Supervisor Dumping: Zayra Chapman MD Eosinophils (Bld) [#/Vol] 0.07 10*3/uL Normal 0.00-0.40 [facility] Comment on above: Performed By: #### L IPR, T4, GLYHGB, T3 #### [address] [phone] Supervisor Dumping: Antoine Wilson MD #### CP, TSH, CDP, ZFAST #### [facility] [address] [place], [place] [phone] Supervisor Dumping: Zayra Chapman MD Eosinophils/100 WBC (Bld) 1 % Normal 0-5 [facility] Comment on above: Performed By: #### L IPR, T4, GLYHGB, T3 #### [address] [phone] Supervisor Dumping: Antoine Wilson MD #### CP, TSH, CDP, ZFAST #### [facility] [address] [place] [address] Supervisor Dumping: Zayra Chapman MD Erythrocyte distribution width (RBC) [Ratio] 13.2 % Normal 12.1-15.2 [facility] Comment on above: Performed By: #### L IPR, T4, GLYHGB, T3 #### [place] [id number] Supervisor Dumping: Antoine Wilson MD #### CP, TSH, CDP, ZFAST #### [facility] [address] [place] [phone] Supervisor Dumping: Zayra Chapman MD Hematocrit (Bld) [Volume fraction] 41.9 % Normal 36.0-46.0 [facility] Comment on above: Performed By: #### L IPR, T4, GLYHGB, T3 #### [place] [phone] Supervisor Dumping: Antoine Wilson MD #### CP, TSH, CDP, ZFAST #### [facility] [address] [place] [phone] Supervisor Dumping: Zayra Chapman MD Hemoglobin (Bld) [Mass/Vol] 13.5 g/dL Normal 12.0-16.0 [facility] Comment on above: Performed By: #### L IPR, T4, GLYHGB, T3 #### [address] [place] [address] Supervisor Dumping: Antoine Wilson MD #### CP, TSH, CDP, ZFAST #### [facility] [address] [place], [place] [phone] Supervisor Dumping: Zayra Chapman MD Immature granulocytes/100 WBC (Bld) 0 % Normal 0-5 [facility] Comment on above: Performed By: #### L IPR, T4, GLYHGB, T3 #### [place] [address] [place] [address] Supervisor Dumping: Antoine Wilson MD #### CP, TSH, CDP, ZFAST #### [facility] [address] [place], [place] [phone] Supervisor Dumping: Zayra Chapman MD Lymphocytes (Bld) [#/Vol] 1.14 10*3/uL Normal 1.00-4.80 [facility] Comment on above: Performed By: #### L IPR, T4, GLYHGB, T3 #### [address] [address] Supervisor Dumping: Antoine Wilson MD #### CP, TSH, CDP, ZFAST #### [facility] [address] [place], [place] [phone] Supervisor Dumping: Zayra Chapman MD Lymphocytes/100 WBC (Bld) 20 % Normal 15-40 [facility] Comment on above: Performed By: #### L IPR, T4, GLYHGB, T3 #### [address] [phone] Supervisor Dumping: Antoine Wilson MD #### CP, TSH, CDP, ZFAST #### [facility] [address] [place], [place] [phone] Supervisor Dumping: Zayra Chapman MD MCH (RBC) [Entitic mass] 26.6 pg Normal 26.0-34.0 [facility] Comment on above: Performed By: #### L IPR, T4, GLYHGB, T3 #### [address] [address] Supervisor Dumping: Antoine Wilson MD #### CP, TSH, CDP, ZFAST #### [facility] [address] [place] [phone] Supervisor Dumping: Zayra Chapman MD MCHC (RBC) [Mass/Vol] 32.2 g/dL Normal 31.0-37.[address] [facility] Comment on above: Performed By: #### L IPR, T4, GLYHGB, T3 #### [place] [address] Supervisor Dumping: Antoine Wilson MD #### CP, TSH, CDP, ZFAST #### [facility] [address] [place] [address] Supervisor Dumping: Zayra Chapman MD MCV (RBC) [Entitic vol] 82.6 fL Normal 80.0-100.0 [facility] Comment on above: Performed By: #### L IPR, T4, GLYHGB, T3 #### [place] [address] Supervisor Dumping: Antoine Wilson MD #### CP, TSH, CDP, ZFAST #### [facility] [address] [place] [address] Supervisor Dumping: Zayra Chapman MD Monocytes (Bld) [#/Vol] 0.30 10*3/uL Normal 0.00-1.00 [facility] Comment on above: Performed By: #### L IPR, T4, GLYHGB, T3 #### [place] [address] Supervisor Dumping: Antoine Wilson MD #### CP, TSH, CDP, ZFAST #### [facility] [address] [place], [place] [phone] Supervisor Dumping: Zayra Chapman MD Monocytes/100 WBC (Bld) 5 % Normal 4-8 [facility] Comment on above: Performed By: #### L IPR, T4, GLYHGB, T3 #### [address] [phone] Supervisor Dumping: Antoine Wilson MD #### CP, TSH, CDP, ZFAST #### [facility] [address] [place], [place] [phone] Supervisor Dumping: Zayra Chapman MD Neutrophil (Seg) 74 % Normal 47-75 [facility] Comment on above: Performed By: #### L IPR, T4, GLYHGB, T3 #### [address] [phone] Supervisor Dumping: Antoine Wilson MD #### CP, TSH, CDP, ZFAST #### [facility] [address] [place], [place] [phone] Supervisor Dumping: Zayra Chapman MD Platelet mean volume (Bld) [Entitic vol] 11.0 fL Normal 6.0-12.0 [facility] Comment on above: Performed By: #### L IPR, T4, GLYHGB, T3 #### [address] [phone] Supervisor Dumping: Antoine Wilson MD #### CP, TSH, CDP, ZFAST #### [facility] [address] [place], [place] [phone] Supervisor Dumping: Zayra Chapman MD Platelets (Bld) [#/Vol] 206 10*3/uL Normal 140-450 [facility] Comment on above: Performed By: #### L IPR, T4, GLYHGB, T3 #### [address] [phone] Supervisor Dumping: Antoine Wilson MD #### CP, TSH, CDP, ZFAST #### [facility] [address] [place], [place] [phone] Supervisor Dumping: Zayra Chapman MD RBC (Bld) [#/Vol] 5.07 10*6/uL Normal 4.00-5.20 [facility] Comment on above: Performed By: #### L IPR, T4, GLYHGB, T3 #### [address] [address] Supervisor Dumping: Antoine Wilson MD #### CP, TSH, CDP, ZFAST #### [facility] [address] [place], [place] [phone] Supervisor Dumping: Zayra Chapman MD WBC (Bld) [#/Vol] 5.8 10*3/uL Normal 3.5-11.0 [facility] Comment on above: Performed By: #### L IPR, T4, GLYHGB, T3 #### [address] [address] Supervisor Dumping: Antoine Wilson MD #### CP, TSH, CDP, ZFAST #### [facility] [address] [place], [place] [phone] Supervisor Dumping: Zayra Chapman MD Comp Metabolic Profon 2022 Albumin [Mass/Vol] 4.3 g/dL Normal 3.5-5.2 [facility] Comment on above: Performed By: #### L IPR, T4, GLYHGB, T3 #### [address] [address] Supervisor Dumping: Antoine Wilson MD #### CP, TSH, CDP, ZFAST #### [facility] [address] [place], [place] [phone] Supervisor Dumping: Zayra Chapman MD Alkaline Phos 127 U/L High 35-104 [facility] Comment on above: Performed By: #### L IPR, T4, GLYHGB, T3 #### [facility] [address] [place] [address] Supervisor Dumping: Antoine Wilson MD #### CP, TSH, CDP, ZFAST #### [facility] [address] [place] [address] Supervisor Dumping: Zayra Chapman MD ALT [Catalytic activity/Vol] 51 U/L High 5-33 [facility] Comment on above: Performed By: #### L IPR, T4, GLYHGB, T3 #### [address] [address] Supervisor Dumping: Antoine Wilson MD #### CP, TSH, CDP, ZFAST #### [facility] [address] [place], [place] [phone] Supervisor Dumping: Zayra Chapman MD Anion gap [Moles/Vol] 12 mmol/L Normal 9-[address] [facility] Comment on above: Performed By: #### L IPR, T4, GLYHGB, T3 #### [address] [address] Supervisor Dumping: Antoine Wilson MD #### CP, TSH, CDP, ZFAST #### [facility] [address] [place], [place] [phone] Supervisor Dumping: Zayra Chapman MD AST [Catalytic activity/Vol] 31 U/L Normal <32 [facility] Comment on above: Performed By: #### L IPR, T4, GLYHGB, T3 #### [address] [address] Supervisor Dumping: Antoine Wilson MD #### CP, TSH, CDP, ZFAST #### [facility] [address] [place], [place] 1597290 Supervisor Dumping: Zayra Chapman MD Bilirubin [Mass/Vol] 0.3 mg/dL Normal 0.3-1.2 [facility] Comment on above: Performed By: #### L IPR, T4, GLYHGB, T3 #### [place] [address] [place], [place] 8238508 Supervisor Dumping: Antoine Wilson MD #### CP, TSH, CDP, ZFAST #### [facility] [address] [place], [place] [phone] Supervisor Dumping: Zayra Chapman MD BUN/CRE Ratio 16 Normal 9-20 [facility] Comment on above: Performed By: #### L IPR, T4, GLYHGB, T3 #### [address] [phone] Supervisor Dumping: Antoine Wilson MD #### CP, TSH, CDP, ZFAST #### [facility] [address] [place], [place] [phone] Supervisor Dumping: Zayra Chapman MD Calcium [Mass/Vol] 9.0 mg/dL Normal 8.6-10.4 [facility] Comment on above: Performed By: #### L IPR, T4, GLYHGB, T3 #### [address] [phone] Supervisor Dumping: Antoine Wilson MD #### CP, TSH, CDP, ZFAST #### [facility] [address] [place], [place] [phone] Supervisor Dumping: Zayra Chapman MD Chloride [Moles/Vol] 100 mmol/L Normal 98-107 [facility] Comment on above: Performed By: #### L IPR, T4, GLYHGB, T3 #### [address] [phone] Supervisor Dumping: Antoine Wilson MD #### CP, TSH, CDP, ZFAST #### [facility] [address] [place], [place] [phone] Supervisor Dumping: Zayra Chapman MD CO2 [Moles/Vol] 24 mmol/L Normal 20-31 [facility] Comment on above: Performed By: #### L IPR, T4, GLYHGB, T3 #### [place] [place], [place] [phone] Supervisor Dumping: Antoine Wilson MD #### CP, TSH, CDP, ZFAST #### [facility] [address] [place], [place] 0100290 Supervisor Dumping: Zayra Chapman MD Creatinine [Mass/Vol] 0.7 mg/dL Normal 0.5-0.[address] [facility] Comment on above: Performed By: #### L IPR, T4, GLYHGB, T3 #### [address] [phone] Supervisor Dumping: Antoine Wilson MD #### CP, TSH, CDP, ZFAST #### [facility] [address] [place], [place] [phone] Supervisor Dumping: Zayra Chapman MD GFR/1.73 sq M.predicted among [...] #### L IPR, T4, GLYHGB, T3 #### [place] [address] [place], [place] 0031908 Supervisor Dumping: Antoine Wilson MD #### CP, TSH, CDP, ZFAST #### [facility] [address] [place], [place] [phone] Supervisor Dumping: Zayra Chapman MD Glucose [Mass/Vol] 367 mg/dL High 70-99 [facility] Comment on above: Performed By: #### L IPR, T4, GLYHGB, T3 #### [address] [address] Supervisor Dumping: Antoine Wilson MD #### CP, TSH, CDP, ZFAST #### [facility] [address] [place] [address] Supervisor Dumping: Zayra Chapman MD Potassium [Moles/Vol] 4.3 mmol/L Normal 3.7-5.[address] [facility] Comment on above: Performed By: #### L IPR, T4, GLYHGB, T3 #### [address] [address] Supervisor Dumping: Antoine Wilson MD #### CP, TSH, CDP, ZFAST #### [facility] [address] [place], [place] [phone] Supervisor Dumping: Zayra Chapman MD Protein [Mass/Vol] 7.0 g/dL Normal 6.4-8.3 [facility] Comment on above: Performed By: #### L IPR, T4, GLYHGB, T3 #### [address] [phone] Supervisor Dumping: Antoine Wilson MD #### CP, TSH, CDP, ZFAST #### [facility] [address] [place] [address] Supervisor Dumping: Zayra Chapman MD Sodium [Moles/Vol] 136 mmol/L Normal 135-144 [facility] Comment on above: Performed By: #### L IPR, T4, GLYHGB, T3 #### [address] [address] Supervisor Dumping: Antoine Wilson MD #### CP, TSH, CDP, ZFAST #### [facility] [address] [place] [address] Supervisor Dumping: Zayra Chapman MD Urea nitrogen [Mass/Vol] 11 mg/dL Normal 6-20 [facility] Comment on above: Performed By: #### L IPR, T4, GLYHGB, T3 #### [facility] [address] [place], [place] 6309[address] Supervisor Dumping: Antoine Wilson MD #### CP, TSH, CDP, ZFAST #### [facility] [address] [place] [address] Supervisor Dumping: Zayra Chapman MD Hemoglobin A1Con 02-13-2023 Glucose [Mass/Vol] 280 mg/dL Normal [facility] Comment on above: Result Comment: The ADA and AACC recommend providing the estimated average glucose result to permit better patient understanding of their HBA1c result. Performed By: #### JESSICA LOWRY, UA #### [facility] [address] [place] [address] Supervisor Dumping: Zayra Chapman MD HbA1c (Bld) [Mass fraction] 11.4 % High 4.0-6.0 [facility] Comment on above: Performed By: #### Julien DAVIDSON JOYCELYN, UA #### [facility] [address] [place] [address] Supervisor Dumping: Zayra Chapman MD Lipid Profileon 02-13-2023 Cholesterol [Mass/Vol] 215 mg/dL High 0-199 [facility] Comment on above: Result Comment: Cholesterol Guidelines: <200 Desirable 200-240 Borderline >240 Undesirable Performed By: #### OSITO LOWRYG, UA #### [facility] [address] [place] [address] Supervisor Dumping: Zayra Chapman MD Cholesterol in HDL [Mass/Vol] 27 mg/dL Low >40 [facility] Comment on above: Result Comment: HDL Guidelines: <40 Undesirable 40-59 Borderline >59 Desirable Performed By: #### OSITO LOWRYG, UA #### [facility] [address] [place], [place] [phone] Supervisor Dumping: Zayra Chapman MD Cholesterol in LDL [Mass/Vol] 130 mg/dL High 0-100 [facility] Comment on above: Result Comment: LDL Guidelines: <100 Desirable 100-129 Near to/above Desirable 130-159 Borderline >159 Undesirable Direct (measured) LDL and calculated LDL are not interchangeable tests. Performed By: #### U [facility] [place], [place]A #### [facility] [address] [place], [place] [phone] Supervisor Dumping: Zayra Chapman MD Cholesterol in VLDL [Mass/Vol] 58 mg/dL Normal [facility] Comment on above: Performed By: #### Julien DAVIDSON [facility] [place], UA #### [facility] [address] [place] [address] Supervisor Dumping: Zayra Chapman MD Cholesterol.total/Otilia sterol in HDL [Mass ratio] 8.0 {ratio} Normal [facility] Comment on above: Performed By: #### U [facility] [place], UA #### [facility] [address] [place], [place] [phone] Supervisor Dumping: Zayra Chapman MD Triglyceride [Mass/Vol] 291 mg/dL High 0-149 [facility] Comment on above: Result Comment: Triglyceride Guidelines: <150 Desirable 150-199 Borderline 200-499 High >499 Very high Based on AHA Guidelines for fasting triglyceride, February 2012. Performed By: #### U [facility] [place], UA #### [facility] [address] [place] [address] Supervisor Dumping: Zayra Chapman MD Patient fasting?on 3 Patient fasting? YES Normal [facility] Comment on above: Performed By: #### L IPR, T4, GLYHGB, T3 #### [address] [place] [address] Supervisor Dumping: Antoine Wilson MD #### CP, TSH, CDP, ZFAST #### [facility] [address] [place] [address] Supervisor Dumping: Zayra Chapman MD Thyroid Stim. Horm.on 2022 Thyroid Stim. Horm. 1.43 uIU/mL Normal 0.30-5.00 [facility] Comment on above: Performed By: #### Julien DAVIDSON [facility] [place], UA #### [facility] [address] [place], [place] [phone] Supervisor Dumping: Zayra Chapman MD Thyroxine T4on 02-13-2023 T4 [Mass/Vol] 5.9 ug/dL Normal 4.5-11.7 [facility] Comment on above: Performed By: #### Julien DAVIDSON [facility] [place], UA #### [facility] [address] [place], [place] [phone] Supervisor Dumping: Zayra Chapman MD Triiodothyronine T3on 2022 Triiodothyronine T3 109 ng/dL Normal 80-200 [facility] Comment on above: Performed By: #### Julien DAVIDSON [facility] [place], UA #### [facility] [address] [place] [address] Supervisor Dumping: Zayra Chapman MD Chlamydia/GC DNA, Uron 12-23 [...] acid target. Performed By: #### Julien DAVIDSON [facility] [place], UA #### [facility] [address] [place] [address] Supervisor Dumping: Zayra Chapman MD Gonorrhea Probe, Ur Negative [...] acid target. Performed By: #### U SAMIRA [facility] [place], UA #### [facility] [address] [place] [address] Supervisor Dumping: Zayra Chapman MD Cult,Urineon 12-21-2022 Cult,Urine Specimen [...] Comment on above: Performed By: #### [place] [facility] [place] [place], UA #### [facility] [address] [place] [address] Supervisor Dumping: Zayra Chapman MD HCG, ,Urineon 12-19 Beta HCG ( test) Ql (U) Negative Normal NEG [facility] Comment on above: Performed By: #### U [facility] [place] [facility] [place]A #### [facility] [address] [place] [address] Supervisor Dumping: Zayra Chapman MD Microscopic Urinalysison - [facility] Bacteria LM Ql (Urine sed) 4+ Abnormal None [facility] Epithelial cells LM.HPF (Urine sed) [#/Area] 2 TO 5 /HPF [facility] Interpretation and review of laboratory results Abnormal [facility] RBC LM.HPF (Urine sed) [#/Area] 2 TO 5 [facility] WBC LM.HPF (Urine sed) [#/Area] 50 TO 100 0 /HPF [facility] Yeast LM Ql (Urine sed) OCCASIONAL Abnormal None B ON [facility] , Urineon HCG ( test) Ql (U) Negative NEGATIVE [facility] Urinalysison 12-19-2022 Bilirubin Ql (U) Negative NEGATIVE [facility] Clarity (U) Cloudy Abnormal Clear [facility] Color (U) Yellow Yellow [facility] Comment [facility] Glucose Test strip (U) [Mass/Vol] 1000 mg/dL Abnormal NEGATIVE mg/dL [facility] Hemoglobin Auto test strip Ql (U) 1+ Abnormal NEGATIVE [facility] Interpretation and review of laboratory results Abnormal [facility] Ketones (U) [Mass/Vol] Negative NEGAT [place] mg/dL [facility] Leukocyte esterase Test strip Ql (U) 3+ Abnormal NEGATIVE [facility] Nitrite Ql (U) Positive Abnormal NEGATIVE [facility] pH (U) 6.0 [pH] 5.0 - 8.0 [facility] Protein (U) [Mass/Vol] 1+ Abnormal NEGAT [place] mg/dL [facility] Specific gravity (U) [Rel density] 1.010 1.005 - 1.030 [facility] Urobilinogen Qn (U) Normal 0.0 - 1. 0 EU/dL [facility] Urinalysis, Routineon 2022 Bilirubin, SemiQt,Ur Negative Normal NEG [facility] Comment on above: Performed By: #### U JESSICA DAVIDSON, UA #### [facility] [address] [place], [place] [phone] Supervisor Dumping: Zayra Chapman MD Blood, Urine 1+ Abnormal NEG [facility] Comment on above: Performed By: #### U SAMIRAO, [facility] [place]A #### [facility] [address] [place], [place] [phone] Supervisor Dumping: Zayra Chapman MD Clarity (U) Cloudy Abnormal CLEAR [facility] Comment on above: Performed By: #### U MICAO, [facility] [place] UA #### [facility] [address] [place], [place] [phone] Supervisor Dumping: Zayra Chapman MD Color (U) Yellow Normal YEL [facility] Comment on above: Performed By: #### U SAMIRAO, [facility] [place] UA #### [facility] [address] [place] [address] Supervisor Dumping: Zayra Chapman MD Comment Normal [facility] [facility] Comment on above: Performed By: #### U [place], [facility] [place] #### [facility] [address] [place], [place] [id number] Supervisor Dumping: Zayra Chapman MD Glucose Ql (U) 1000 mg/dL Abnormal NEG [facility] Comment on above: Performed By: #### U [place], [facility] [place] #### [facility] [address] [place], [place] [id number] Supervisor Dumping: Zayra Chapman MD Ketones Ql (U) Negative Normal NEG [facility] Comment on above: Performed By: #### U SAMIRAO, [facility] [place] #### [facility] [address] [place], [place] [phone] Supervisor Dumping: Zayra Chapman MD Leukocyte esterase Test strip Ql (U) 3+ Abnormal NEG [facility] Comment on above: Performed By: #### U MICAO, [facility] [place] #### [facility] [address] [place] [address] Supervisor Dumping: Zayra Chapman MD Nitrite,Ur Positive Abnormal NEG [facility] Comment on above: Performed By: #### [facility] #### [facility] [address] [place] [address] Supervisor Dumping: Zayra Chapman MD PH,Ur 6.0 Normal 5.0-8.0 [facility] Comment on above: Performed By: #### U [facility] [place] #### [facility] [address] [place] [address] Supervisor Dumping: Zayra Chapman MD Protein Ql (U) 1+ mg/dL Abnormal NEG [facility] Comment on above: Performed By: #### [facility]ien [facility] #### [facility] [address] [place] [address] Supervisor Dumping: Zayra Chapman MD Spec. [place],Ur 1.010 Normal 1.005-1.030 [facility] Comment on above: Performed By: #### U [facility] [place] #### [facility] [address] [place] [address] Supervisor Dumping: Zayra Chapman MD Urobilinogen,Ur Normal Normal 0.0-1.0 [facility] Comment on above: Performed By: #### [facility] #### [facility] [address] [place] [address] Supervisor Dumping: Zayra Chapman MD Urinalysis,Microon 3 ----- Normal [facility] Comment on above: Performed By: #### [facility] #### [facility] [address] [place], [place] [phone] Supervisor Dumping: Zayra Chapman MD Bacteria 4+ Abnormal NONE [facility] Comment on above: Performed By: #### U [facility] [place] #### [facility] [address] [place], [place] [phone] Supervisor Dumping: Zayra Chapman MD Epithelial cells LM Ql (Urine sed) 2 TO 5 Normal [facility] Comment on above: Performed By: #### U [facility] [place] #### [facility] [address] [place] [address] Supervisor Dumping: Zayra Chapman MD Urine RBC's 2 TO 5 Normal 0-2 [facility] Comment on above: Performed By: #### Julien [facility]SON [facility] [place] #### [facility] [address] [place] [address] Supervisor Dumping: Zayra Chapman MD Urine WBC's 50 TO 100 Normal 0 [facility] Comment on above: Performed By: #### Julien [facility] [place] #### [facility] [address] [place], [place] [phone] Supervisor Dumping: Zayra Chapman MD Yeast OCCASIONAL Abnormal NONE [facility] Comment on above: Performed By: #### Julien DAVIDSON, [facility] [place] #### [facility] [address] [place], [place] [phone] Supervisor Dumping: Zayra Chapman MD Auto Diffon 12-06-2022 Basophils/100 WBC (Bld) 0.8 % Normal 0.0-2.0 F [facility] Comment on above: Order Comment: Order Added by Discern Expert. Performed By: #### 2 795632, 3631856, 7251701, [id number] #### [facility] [address] [place] [address] Basophils/Leukocytes Auto (Bld) [Pure # fraction] 0.1 E9/L Normal 0.0-0.2 [facility] Comment on above: Order Comment: Order Added by Discern Expert. Performed By: #### 2 485347, 7987595, 2641279, [id number] #### [facility] [address] [place] [address] Eosinophils/100 WBC (Bld) 0.3 % Normal 0.0-8.0 [facility] Comment on above: Order Comment: Order Added by Discern Expert. Performed By: #### 2 073051, 0507766, 3992633, [id number] #### [facility] [address] [place] [address] Eosinophils/Leukocytes Auto (Bld) [Pure # fraction] 0.0 E9/L Normal 0.0-0.5 [facility] Comment on above: Order Comment: Order Added by Lois Expert. Performed By: #### 2 810235, 4682304, 3474049, 12010012 #### [facility] [address] [place] [address] Lymphocytes/100 WBC (Bld) 12.5 % Low 14.0-50.0 [facility] Comment on above: Order Comment: Order Added by Lois Expert. Performed By: #### 2 905369, 8069248, 5876421, 83196533 #### [facility] [address] [place] [address] Lymphocytes/Leukocytes Auto (Bld) [Pure # fraction] 1.3 E9/L Normal 1.0-4.0 [facility] Comment on above: Order Comment: Order Added by Discern Expert. Performed By: #### 2 293018, 1423174, 8462399, 68208963 #### [facility] [address] [place] [address] Monocytes/100 WBC (Bld) 4.5 % Normal 4.0-14.0 [facility] Comment on above: Order Comment: Order Added by Lois Expert. Performed By: #### 2 786295, 1805666, 3340607, 02439178 #### [facility] [address] [place] [address] Monocytes/Leukocytes Auto (Bld) [Pure # fraction] 0.5 E9/L Normal 0.2-1.0 [facility] Comment on above: Order Comment: Order Added by Discern Expert. Performed By: #### 2 540305, 9935781, 2700936, 53792964 #### [facility] [address] [place] [address] Neutrophils/100 WBC (Bld) 81.9 % High 36.0-75.0 [facility] Comment on above: Order Comment: Order Added by Discern Expert. Performed By: #### 2 099212, 2739225, 4444359, 74590689 #### [facility] [address] [place] [address] Neutrophils/Leukocytes Auto (Bld) [Pure # fraction] 8.8 E9/L High 2.0-7.5 [facility] Comment on above: Order Comment: Order Added by Discern Expert. Performed By: #### 2 196941, 7758150, 8829946, 56928540 #### [facility] [address] [place] [address] CBC w/ Auto Diffon 3 Erythrocyte distribution width (RBC) [Ratio] 13.9 % Normal 10.9-14.2 [facility] Comment on above: Performed By: #### 2 600538, 6234248, 3360582, 59788810 #### [facility] [address] [place] [address] Hematocrit (Bld) [Volume fraction] 42.7 % Normal 34.0-46.0 [facility] Comment on above: Performed By: #### 2 028710, 0587279, 3046416, 68543024 #### [facility] [address] [place] [address] Hemoglobin (Bld) [Mass/Vol] 14.2 g/dL Normal 12.0-16.0 [facility] Comment on above: Performed By: #### 2 001813, 3827443, 0619963, 69407624 #### [facility] [address] [place] [address] MCH (RBC) [Entitic mass] 26.8 pg Low 27.0-34.0 [facility] Comment on above: Performed By: #### 2 507391, 2294658, 4809954, 70884335 #### [facility] [address] [place] [address] MCHC (RBC) [Mass/Vol] 33.2 g/dL Normal 31.4-36.0 [facility] Comment on above: Performed By: #### 2 634586, 8264965, 7494474, 57604555 #### [facility] [address] [place] [address] MCV (RBC) [Entitic vol] 80.8 fL Normal 80.0-100.0 F [facility] Comment on above: Performed By: #### 2 850086, 7600129, 9215877, 99783967 #### [facility] [address] [place] [address] Platelet mean volume (Bld) [Entitic vol] 9.8 fL Normal 6.4-10.8 [facility] Comment on above: Performed By: #### 2 357115, 6048900, 4634918, 47187867 #### [facility] [address] [place] [address] Platelets (Bld) [#/Vol] 252.0 E9/L Normal 150.0-500.0 [facility] Comment on above: Performed By: #### 2 096541, 8668306, 7276792, 95823411 #### [facility] [address] [place] [address] RBC (Bld) [#/Vol] 5.3 E12/L Normal 4.3-5.9 [facility] Comment on above: Performed By: #### 2 087973, 2852124, 2085586, 39958201 #### [facility] [address] [place] [address] WBC corrected for nucl RBC Auto (Bld) [#/Vol] 10.7 E9/L Normal 4.0-11.0 [facility] Comment on above: Performed By: #### 2 258081, 1582343, 1909213, 91236692 #### [facility] [address] [place] [address] CHEMISTRYOrdered By: SYSTEM SYSTEM on 12-06-2022 Albumin [...] 12-06-2022 Albumin [Mass/Vol] 4.2 g/dL Normal 3.3-5.0 [facility] Comment on above: Performed By: #### 2 219280, 0821394, 0035084, 54146057 #### [facility] [address] [place] [address] Albumin/Globulin (S) [Mass conc ratio] 1.2 Normal 1.1-2.2 [facility] Comment on above: Performed By: #### 2 756727, 4432431, 8839459, 46237727 #### [facility] [address] [place] [address] ALP [Catalytic activity/Vol] 117 Int._Unit/L High 21-98 [facility] Comment on above: Performed By: #### 2 315667, 7464956, 5134391, 94846443 #### [facility] [address] [place] [address] ALT No additional P-5'-P [Catalytic activity/Vol] 78 Int._Unit/L High 6-46 [facility] Comment on above: Performed By: #### 2 145260, 9327675, 1507129, 49174917 #### [facility] [address] [place] [address] AST [Catalytic activity/Vol] 68 Int._Unit/L High 5-43 [facility] Comment on above: Performed By: #### 2 812453, 5727846, 7243429, 92512741 #### [facility] [address] [place] [address] Bilirubin [Mass/Vol] 0.7 mg/dL Normal 0.0-1.1 [facility] Comment on above: Performed By: #### 2 412394, 2663732, 9848087, 78109098 #### [facility] [address] [place] [address] Creatinine [Mass/Vol] 0.8 mg/dL Normal 0.5-1.3 [facility] Comment on above: Performed By: #### 2 706544, 8477497, 0468002, 03663518 #### [facility] [address] [place] [address] Globulin (S) [Mass/Vol] 3.6 g/dL Normal 1.4-4.0 F [facility] Comment on above: Performed By: #### 2 362623, 8714083, 1548096, 23480904 #### [facility] [address] [place] [address] Protein [Mass/Vol] 7.8 g/dL Normal 6.0-7.8 [facility] Comment on above: Performed By: #### 2 208940, 6277784, 1892071, 69448089 #### [facility] [address] [place] [address] Urea nitrogen [Mass/Vol] 12 mg/dL Normal 5-21 [facility] Comment on above: Performed By: #### 2 281776, 0352852, 2850076, 12137386 #### [facility] [address] [place] [address] Urea nitrogen/Creatinine [Mass ratio] 15 No Units Normal 10-20 [facility] Comment on above: Performed By: #### 2 096442, 3511446, 4060114, 80155067 #### [facility] [address] [place] [address] Anion gap [Moles/Vol] 15 mmol/L Normal 6-16 [facility] Comment on above: Performed By: #### 2 163953, 1349568, 6877476, 20656130 #### [facility] [address] [place] [address] Calcium [Mass/Vol] 9.6 mg/dL Normal 8.9-11.1 [facility] Comment on above: Performed By: #### 2 609849, 6730830, 9513631, 82598333 #### [facility] [address] [place] [address] Chloride [Moles/Vol] 104 mmol/L Normal 101-111 [facility] Comment on above: Performed By: #### 2 843376, 5854475, 2603925, 62601304 #### [facility] [address] [place] [address] CO2 [Moles/Vol] 22 mmol/L Normal 21-31 [facility] Comment on above: Performed By: #### 2 528288, 7307423, 3587927, 63181627 #### [facility] [address] [place] [address] Glucose [Mass/Vol] 244 mg/dL High 55-199 [facility] Comment on above: Result Comment: If t his glucose result represents a fasting glucose, interpretation should refer to the following reference range: 55-99 mg/dL Performed By: #### 2 276608, 2928846, 1403631, 81822545 #### [facility] [address] [place] [address] Potassium [Moles/Vol] 4.3 mmol/L Normal 3.5-5.3 [facility] Comment on above: Performed By: #### 2 654767, 7914137, 5206680, 72700188 #### [facility] [address] [place] [address] Sodium [Moles/Vol] 137 mmol/L Normal 135-145 [facility] Comment on above: Performed By: #### 2 482946, 2749391, 0640854, 58791923 #### [facility] [address] [place] [address] Consent for Treatmenton Consent for Treatment [id number] .[id number]:127 Normal [facility] Discharge Instructionson Discharge Instructions [id number] 1.00CD:127 Normal [facility] ED Clinical Summaryon 2022 ED Clinical Summary [address] [id number] ED Clinical Summary Person Information Name: RIRI DEMPSEY/NewMildred Age: 27 Years : 1995 Sex: Female Language: Zambian PCP: GAYE BARROS Marital Status: Single Visit [...] 12/06/2022 16:43:40 12/06/2022 16:43:40 12/06/2022 16:43:40 ADDRESS: [facility] [address] [facility] [id number] [facility] DOC NOTES: MEDICAL INFORMATION: Prescriptions Given: Medications to Continue with No Changes Other Medications venlafaxine (Effexor XR 150 mg Cap-ER) PATIENT EDUCATION INFORMATION: Instructions: Suicidal Feelings: How to Help Yourself Follow up: With: Address: When: [facility] In 3 days 12/09/2022 Comments: Follow safety plan. Return to the emergency department with any worsening symptoms. With: Address: When: GAYE JOSUE [address] [place] [address] [facility] () In 3 days 12/09/2022 Comments: Call [...] in 1 month. 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 Return to the emergency department with any worsening symptoms. GAYE JOSUE In 3 days 12/09/2022 EDT [address] [place] [address]- Business (1) Additional Instructions: Call [...] Known [employer] (more content not included)... Normal [facility] Comment on above: Result Comment: Elec tronically [...] (911 in the [place] ? Call the [facility] health and human services helpline (211 in the [place] ? Call or text a suicide hotline to speak with a trained counselor. The following suicide hotlines are available in the [place]: ? 3-013-572-TALK ( or 487 in the [place] ? 2-327-LSFUJKU ( ). ? Text 573748. This is the Crisis Text Line in the [place] ? . This is a hotline for [place]ese speakers. ? . This is a hotline for TTY users. ? 8-451-3-U-YASHIRA ( ). This is a hotline for [...] anyone or being with other people. ? Xeeu-hp-jmxy conversation is best to help them understand [...] and a mental health checkup. ? Take dkgb-pqc-cyazhst and prescription medicines only as told by [...] will hel (more content not included)... Normal [facility] ED Patient Summaryon 023 ED Patient Summary [place] [id number] Patient Discharge Instructions Person Information Name: RIRI DEMPSEY Age: 27 Years Arrival Date: 12/06/2022 13:19:47 Discharge Diagnosis: Situational stress Primary Care Physician: GAYE BARROS Provider Information Primary Provider: Graham Choe DO Advanced Charter Driver:None The exam and treatment you received in the Emergency Department were for an urgent problem and are not intended as complete care. It is important that you follow up with a doctor, nurse practitioner, or physician?s construction management assistant for ongoing care. If your symptoms become worse or you do not improve as expected and you are unable to reach your usual health care provider, you should return to the Emergency Department. We are available 24 hours a day. RIRI DEMPSEY has been given the following list of patient education materials, prescriptions and follow-up instructions: Follow-up Instructions: With: Address: When: [facility] In 3 days 12/09/2022 Comments: Follow safety plan. Return to the emergency department with any worsening symptoms. With: Address: When: GAYE JOSUE [address] [place], [place] [id number] [facility] ([facility] In 3 days 12/09/2022 Comments: Call the [...] opioids can be used to help relieve twsozchx-zh-cbvzcj pain and are often prescribed following a [...] and katja (more content not included)... Normal [facility] Ethanolon 12-06-2022 Ethanol [Mass/Vol] mg/dL Normal <=7 [facility] Comment on above: Performed By: #### 2 959491 ####[facility] [address] [place] [address] HEMATOLOGYOrdered By: SYSTEM SYSTEM on 12-06-2022 Basophils/100 WBC (Bld) 0.8 % Normal 0.0 - 2.0 % [facility]eAuto[facility] Basophils/Leukocytes Auto (Bld) [Pure # fraction] [...] E9/L Normal 150. 0 - 500.0 E9/L [facility] HemeAutoSS RBC (Bld) [#/Vol] 5.3 E12/L Normal 4.3 - 5.9 E12/L [facility] HemeAutoSS WBC corrected for nucl RBC Auto (Bld) [#/Vol] 10.7 E9/L Normal 4.0 - 11.0 E9/L [facility]eAutoSS Progress Note-Nurseon 2022 Progress Note-Nurse [facility] called to clear patient- instructed safety plan in prog. 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 conversation with [employer] at time of arrival Normal [facility] SEROLOGYOrdered By: Antonio Stevens on 12-06-2022 HCG.beta subunit (U) [Moles/Vol] Negative Normal [facility] Man Sero U BetaHcg Qualon 12-06-2022 HCG.beta subunit (U) [Moles/Vol] Negative Normal [facility] Comment on above: Performed By: #### 2 [id number] #### [facility] [address] [place] [address] U Drug Screenon 12-06-2022 Benzodiazepines Ql (U) Positive Abnormal Negative [facility] Comment on above: Result Comment: Crit ical Result verified by repeat analysis\No confirmation requested by Physican\Unconfirmed by alternate method\Critical Result UD_BENZ:POS Called to [facility] AT ER by JOEL STEVENS And Read Back For Confirmation at: 12/06/2022 14:42:33 Negative Cutoff: <200 ng/mL Performed By: #### 2 498495 ####[facility] [address] [place] [address] Tetrahydrocannabinol Screen method >50 ng/mL Ql (U) Positive Abnormal Negative [facility] Comment on above: Result Comment: Crit ical Result verified by repeat analysis\No confirmation requested by Physican\Unconfirmed by alternate method\Critical Result UD_THC:POS Called to [facility] AT ER by JOEL STEVENS And Read Back For Confirmation at: 12/06/2022 14:42:33 Negative Cutoff: <50 ng/mL Performed By: #### 2 404297 ####[facility] [address] [place] [address] Amphetamines Screen method >1000 ng/mL Ql (U) Negative Normal Negative [facility] Comment on above: Result Comment: Nega tive Cutoff: <1000 ng/mL Performed By: #### 2 591954 ####[facility] [address] [place] [address] Barbiturates Screen Ql (U) Negative Normal Negative [facility] Comment on above: Result Comment: Nega tive Cutoff: <200 ng/mL Performed By: #### 2 670164 ####[address] [address] Cocaine Ql (U) Negative Normal Negative [facility] Comment on above: Result Comment: Nega tive Cutoff: <300 ng/mL Performed By: #### 2 779263 ####[address] [address] Opiates Screen Ql (U) Negative Normal Negative [facility] Comment on above: Result Comment: Nega tive Cutoff: <300 ng/mL Performed By: #### 2 090190 ####[place] [id number] Phencyclidine Screen method >25 ng/mL Ql (U) Negative Normal Negative [facility] Comment on above: Result Comment: Nega tive Cutoff: <25 ng/mL These drug screen results are to be used for medical (i.e., treatment) purposes only. Unconfirmed drug screening results must not be used for non-medical purposes (e.g., employment testing, legal testing). Performed By: #### 2 308625 ####[address] [address] eGFRon 12-06-2022 GFR/1.73 sq M.predicted among non-blacks MDRD (S/P/Bld) [Vol rate/Area] 105 mL/min/1.73 m2 Normal >=59 [facility] Comment on above: Order Comment: Order added by Discern Expert. Result Comment: Hospital Sales Representative dayanna kidney disease could be indicated at eGFR's of less than 60 mL/min/1.73m2. Kidney failure is indicated at less than 15 mL/min/1.73m2. Performed By: #### 2 806156, 8758971, 0690175, 84832435 ####[facility] [address] [place] [address] Basic Metabolic Panelon 06-05 Anion gap [Moles/Vol] 11 mmol/L 9 - 17 mmol/L [employer] Calcium [Mass/Vol] 9.5 mg/dL 8.6 - 10. 4 mg/dL [employer] Chloride [Moles/Vol] 103 mmol/L 98 - 10 7 mmol/L [employer] CO2 [Moles/Vol] 27 mmol/L 20 - 31 mmol/L [employer] Creatinine [Mass/Vol] 0.57 mg/dL 0.50 - 0.90 mg/dL [employer] GFR/1.73 sq M.predicted MDRD (S/P/Bld) [Vol rate/Area] - PINF [employer] Comment on above: These results are not [...] 154 mg/dL High 70 - 99 mg/dL [employer] Interpretation and review of laboratory results Abnormal [employer] Potassium [Moles/Vol] 4.2 mmol/L 3.7 - 5.3 mmol/L [employer] Sodium [Moles/Vol] 141 mmol/L 135 - 144 mmol/L [employer] Urea nitrogen [Mass/Vol] 12 mg/dL 6 - 20 mg/dL [employer] Urea nitrogen/Creatinine (Bld) [Mass ratio] 21 High 9 - 20 [employer] [employer] Basic Metabolic Profon 06-16 Anion gap [Moles/Vol] 11 mmol/L Normal 9-[address] [facility] Comment on above: Performed By: #### H GURPREET HIRSCH, CDP #### [facility] [address] [place] [address] Supervisor Dumping: Zayra Chapman MD BUN/CRE Ratio 21 High 9-20 [facility] Comment on above: Performed By: #### H GURPREET HIRSCH, CDP #### [facility] [address] [place], [place] [id number] Supervisor Dumping: Zayra Chapman MD Calcium [Mass/Vol] 9.5 mg/dL Normal 8.6-10.4 [facility] Comment on above: Performed By: #### H GURPREET HIRSCH, CDP #### [facility] [address] [place] [address] Supervisor Dumping: Zayra Chapman MD Chloride [Moles/Vol] 103 mmol/L Normal 98-107 [facility] Comment on above: Performed By: #### H GURPREET HIRSCH, CDP #### [facility] [address] [place] [address] Supervisor Dumping: Zayra Chapman MD CO2 [Moles/Vol] 27 mmol/L Normal 20-31 [facility] Comment on above: Performed By: #### H GURPREET HIRSCH, CDP #### [facility] [address] [place] [address] Supervisor Dumping: Zayra Chapman MD Creatinine [Mass/Vol] 0.57 mg/dL Normal 0.50-0.[address] [facility] Comment on above: Performed By: #### H GURPREET HIRSCH, CDP #### [facility] [address] [place] [address] Supervisor Dumping: Zayra Chapman MD GFR/1.73 sq M.predicted among [...] By: #### H GURPREET HIRSCH, CDP #### [facility] [address] [place] [address] Supervisor Dumping: Zayra Chapman MD Glucose [Mass/Vol] 154 mg/dL High 70-99 [facility] Comment on above: Performed By: #### H GURPREET HIRSCH, CDP #### [facility] [address] [place] [address] Supervisor Dumping: Zayra Chapman MD Potassium [Moles/Vol] 4.2 mmol/L Normal 3.7-5.[address] [facility] Comment on above: Performed By: #### H GURPREET HIRSCH, CDP #### [facility] [address] [place] [address] Supervisor Dumping: Zayra Chapman MD Sodium [Moles/Vol] 141 mmol/L Normal 135-144 [facility] Comment on above: Performed By: #### H GURPREET HIRSCH, CDP #### [facility] [address] [place] [address] Supervisor Dumping: Zayra Chapman MD Urea nitrogen [Mass/Vol] 12 mg/dL Normal 6-20 [facility] Comment on above: Performed By: #### H GURPREET HIRSCH, CDP #### [facility] [address] [place] [address] Supervisor Dumping: Zayra Chapman MD CBC with Auto Differentialon 06-16-2022 Absolute Eos # 0.10 [facility] Absolute Lymph # 1.90 [facility] Absolute Gila # 0.40 [facility] Basophils (Bld) [#/Vol] 0.00 10*3/uL [facility] Basophils/100 WBC (Bld) 1 % 0 - 2 % [facility] Differential Type YES [facility] Eosinophils/100 WBC (Bld) 1 % 0 - 5 % [facility] Hematocrit (Bld) [Volume fraction] 40.3 % 36 - 46 % [facility] Hemoglobin (Bld) [Mass/Vol] 13.0 g/dL 12.0 - 16.0 g/dL [facility] Lymphocytes/100 WBC (Bld) 23 % 15 - 40 % [facility] MCH (RBC) [Entitic mass] 27.2 pg 26 - 34 pg [facility] MCHC (RBC) [Mass/Vol] 32.4 g/dL 31 - 3 7 g/dL [facility] MCV (RBC) [Entitic vol] 84.1 fL 80 - 100 fL [facility] Monocytes/100 WBC (Bld) 5 % 4 - 8 % [facility] Platelet distribution width (Bld) [Ratio] 13.9 % 12.1 - 15.2 % [facility] Platelets (Bld) [#/Vol] 225 10*3/uL [facility] RBC (Bld) [#/Vol] 4.79 10*6/uL 4.0 - 5.2 m/uL [facility] Segmented neutrophils/100 WBC (Bld) 70 % 47 - 75 % [facility] Segs Absolute 5.70 [facility] WBC (Bld) [#/Vol] 8.2 10*3/uL [facility] CBC with Diffon 06-16-2022 Abs. Basophil 0.00 k/uL Normal 0.0-0.2 [facility] Comment on above: Performed By: #### H CG, BMP, CDP #### [facility] [address] [place] [address] Supervisor Dumping: Zayra Chapman MD Abs.Neutrophil (Seg) 5.70 k/uL Normal 2.5-7.0 [facility] Comment on above: Performed By: #### H GURPREET HIRSCH, CDP #### [facility] [address] [place] [address] Supervisor Dumping: Zayra Chapman MD Auto Diff Performed YES Normal [facility] Comment on above: Performed By: #### H GURPREET HIRSCH, CDP #### [facility] [address] [place] [id number] Supervisor Dumping: Zayra Chapman MD Basophils/100 WBC (Bld) 1 % Normal 0-2 [facility] Comment on above: Performed By: #### H GURPREET HIRSCH, CDP #### [facility] [address] [place] [id number] Supervisor Dumping: Zayra Chapman MD Eosinophils (Bld) [#/Vol] 0.10 10*3/uL Normal 0.0-0.4 [facility] Comment on above: Performed By: #### H GURPREET HIRSCH, CDP #### [facility] [address] [place] [address] Supervisor Dumping: Zayra Chapman MD Eosinophils/100 WBC (Bld) 1 % Normal 0-5 [facility] Comment on above: Performed By: #### H GURPREET HIRSCH, CDP #### [facility] [address] [place] [address] Supervisor Dumping: Zayra Chapman MD Erythrocyte distribution width (RBC) [Ratio] 13.9 % Normal 12.1-15.2 [facility] Comment on above: Performed By: #### H GURPREET HIRSCH, CDP #### [facility] [address] [place] [address] Supervisor Dumping: Zayra Chapman MD Hematocrit (Bld) [Volume fraction] 40.3 % Normal 36-46 [facility] Comment on above: Performed By: #### H GURPREET HIRSCH, CDP #### [facility] [address] [place] [address] Supervisor Dumping: Zayra Chapman MD Hemoglobin (Bld) [Mass/Vol] 13.0 g/dL Normal 12.0-16.0 [facility] Comment on above: Performed By: #### H GURPREET HIRSCH, CDP #### [facility] [address] [place] [address] Supervisor Dumping: Zayra Chapman MD Lymphocytes (Bld) [#/Vol] 1.90 10*3/uL Normal 1.0-4.8 [facility] Comment on above: Performed By: #### H GURPREET HIRSCH, CDP #### [facility] [address] [place] [address] Supervisor Dumping: Zayra Chapman MD Lymphocytes/100 WBC (Bld) 23 % Normal 15-40 [facility] Comment on above: Performed By: #### H GURPREET HIRSCH, CDP #### [facility] [address] [place] [address] Supervisor Dumping: Zayra Chapman MD MCH (RBC) [Entitic mass] 27.2 pg Normal 26-34 [facility] Comment on above: Performed By: #### H GURPREET HIRSCH, CDP #### [facility] [address] [place] [address] Supervisor Dumping: Zayra Chapman MD MCHC (RBC) [Mass/Vol] 32.4 g/dL Normal 31-[address] [facility] Comment on above: Performed By: #### H GURPREET HIRSCH, CDP #### [facility] [address] [place] [address] Supervisor Dumping: Zayra Chapman MD MCV (RBC) [Entitic vol] 84.1 fL Normal 80-100 [facility] Comment on above: Performed By: #### H GURPREET HIRSCH, CDP #### [facility] [address] [place] [address] Supervisor Dumping: Zayra Chapman MD Monocytes (Bld) [#/Vol] 0.40 10*3/uL Normal 0.0-1.0 [facility] Comment on above: Performed By: #### H CG BMP, CDP #### [facility] [address] [place] [address] Supervisor Dumping: Zayra Chapman MD Monocytes/100 WBC (Bld) 5 % Normal 4-8 [facility] Comment on above: Performed By: #### H CG BMP, CDP #### [facility] [address] [place] [address] Supervisor Dumping: Zayra Chapman MD Neutrophil (Seg) 70 % Normal 47-75 [facility] Comment on above: Performed By: #### H GURPREET HIRSCH, CDP #### [facility] [address] [place] [address] Supervisor Dumping: Zayra Chapman MD Platelets (Bld) [#/Vol] 225 10*3/uL Normal 140-450 [facility] Comment on above: Performed By: #### H GURPREET HIRSCH, CDP #### [facility] [address] [place] [address] Supervisor Dumping: Zayra Chapman MD RBC (Bld) [#/Vol] 4.79 10*6/uL Normal 4.0-5.2 [facility] Comment on above: Performed By: #### H GURPREET HIRSCH, CDP #### [facility] [address] [place] [address] Supervisor Dumping: Zayra Chapman MD WBC (Bld) [#/Vol] 8.2 10*3/uL Normal 3.5-11.0 [facility] Comment on above: Performed By: #### H GURPREET HIRSCH, CDP #### [facility] [address] [place] [address] Supervisor Dumping: Zayra Chapman MD CT HEAD WO CONTRASTon 2022 CT HEAD WO CONTRAST EXAM: CT HEAD WO CONTRAST 06/16/2022 2:34 AM EST [facility] CLINICAL STATEMENT: Has a code stroke or [...] intracranial abnormality. FOLLOW-UP: Follow-up as clinically indicated. [facility] EXAM: CT HEAD WO CONTRAST 06/16/2022 2:34 AM EST [facility] CLINICAL STATEMENT: Has a code stroke or [...] orbits and the paranasal sinuses are normal. [facility] Trang Mgcregor MD - 06/16/2022 EXAM: CT HEAD WO CONTRAST 06/16/2022 2:34 AM EST [facility] CLINICAL STATEMENT: Has a code stroke or [...] abnormality. FOLLOW-UP: Follow-up as clinically indicated. [employer] [employer] Work Phone: Radiology Study observation (narrative) JULIANO PADILLA [employer] Work Phone: CT HEAD WO CONTRASTOrdered B y: Trang Said on 06-16-2022 [employer] Work Phone: HCG Qualitative, Serumon hCG Qual Negative NEGATIVE [facility] [employer] Comment on above: Specimens with hCG l evels near the threshold of the test (25 mIU/mL) may give a negative or indeterminate result. In such cases, another test should be performed with a new specimen in 48-72 hours. If early is suspected clinically in this setting, correlation with quantitative serum b-hCG level is suggested. [employer] has confirmed the use of plasma for this test. This has not been cleared or approved by the U.S. Food and Drug Administration. The FDA has determined that such clearance is not necessary. [facility] [employer] HCG Screen, Bloodon 06-16-19 23 HCG Screen, Blood Negative Normal NEG [facility] Comment on above: Result Comment: Spec imens with hCG levels near the threshold of the test (25 mIU/mL) may give a negative or indeterminate result. In such cases, another test should be performed with a new specimen in 48-72 hours. If early is suspected clinically in this setting, correlation with quantitative serum b-hCG level is suggested. [employer] has confirmed the use of plasma for this test. This has not been cleared or approved by the U.S. Food and Drug Administration. The FDA has determined that such clearance is not necessary. Performed By: #### H CG, BMP, CDP #### [facility] [address] [place] [address] Supervisor Dumping: Zayra Chapman MD Urinalysison 06-16-2022 Bilirubin Urine Negative NEGATIVE [facility] Color, UA Yellow Yellow [facility] Glucose Auto test strip (U) [Mass/Vol] Negative NEGATIVE [facility] Interpretation and review of laboratory results Abnormal [facility] Ketones (U) [Mass/Vol] Negative NEGATIVE [facility] Leukocyte esterase Auto test strip Ql (U) Negative NEGATIVE [facility] Nitrite Auto test strip Ql (U) Negative NEGATIVE [facility] Protein (U) [Mass/Vol] 7.0 mg/dL 5.0 - 8.0 [facility] Protein (U) [Mass/Vol] TRACE Abnormal NEGATIVE [facility] Specific [place], UA 1.005 1.005 - 1.030 [facility] Turbidity UA Clear Clear [facility] Urinalysis Comments [facility] Urine Hgb Negative NEGATIVE [facility] Urobilinogen, Urine Normal Normal [facility] Urinalysis, Routineon 2022 Bilirubin, SemiQt,Ur Negative Normal NEG [facility] Comment on above: Performed By: #### U A #### [facility] [address] [place] [address] Supervisor Dumping: Zayra Chapman MD Blood, Urine Negative Normal NEG [facility] Comment on above: Performed By: #### U A #### [facility] [address] [facility] [place] [address] Supervisor Dumping: Zayra Chapman MD Clarity (U) Clear Normal CLEAR [facility] Comment on above: Performed By: #### U A #### [facility] [address] [place] [address] Supervisor Dumping: Zayra Chapman MD Color (U) Yellow [facility] Comment on above: Performed By: #### U A #### [facility] [address] [place] [address] Supervisor Dumping: Zayra Chapman MD Comment Normal [facility] Comment on above: Performed By: #### U A #### [facility] [address] [place] [address] Supervisor Dumping: Zayra Chapman MD Glucose Ql (U) Negative Normal NEG [facility] Comment on above: Performed By: #### U A #### [facility] [address] [place] [address] Supervisor Dumping: Zayra Chapman MD Ketones Ql (U) Negative Normal NEG [facility] Comment on above: Performed By: #### U A #### [facility] [address] [place] [address] Supervisor Dumping: Zayra Chapman MD Leukocyte esterase Test strip Ql (U) Negative Normal NEG [facility] Comment on above: Performed By: #### U A #### [facility] [address] [place] [address] Supervisor Dumping: Zayra Chapman MD Nitrite,Ur Negative Normal NEG [facility] Comment on above: Performed By: #### U A #### [facility] [address] [place] [address] Supervisor Dumping: Zayra Chapman MD PH,Ur 7.0 Normal 5.0-8.0 [facility] Comment on above: Performed By: #### U A #### [facility] [address] [place] [address] Supervisor Dumping: Zayra Chapman MD Protein Ql (U) TRACE Abnormal NEG [facility] Comment on above: Performed By: #### U A #### [facility] [address] [place] [address] Supervisor Dumping: Zayra Chapman MD Spec. [place],Ur 1.005 Normal 1.005-1.030 [facility] Comment on above: Performed By: #### U A #### [facility] [address] [place], [place] [id number] Supervisor Dumping: Zayra Chapman MD Urobilinogen,Ur Normal Normal NORM [facility] Comment on above: Performed By: #### U A #### [facility] [address] [place] [address] Supervisor Dumping: Zayra Chapman MD XR LUMBAR SPINE (MIN 4 VIEWS )on 03-13-2022 No degenerative change, discitis or fracture. [facility] EXAM: XR LUMBAR SPIN E (MIN 4 VIEWS) HISTORY: Reason for exam:->midline low back pain [facility] Quinn Roberto Jr., MD - 03/13/2022 EXAM: XR LUMBAR SPINE (MIN 4 VIEWS) HISTORY: Reason for exam:->midline low back pain IMPRESSION: No degenerative change, discitis or fracture. [facility] Work Phone: Radiology Study observation (narrative) [facility] [employer] [facility] [email or web address] Phone: XR LUMBAR SPINE (MIN 4 VIEWS )Ordered By: Quinn Roberto on 03-13-2022 [facility] Work Phone: CBC AUTO DIFFon 10-04-2021 BASO # 0.0 103/ul Normal 0.0-0.1 [facility] Comment on above: Performed By: #### H H #### [facility] [address] [place] [address] [address] Ramya Ramey Basophils/100 WBC (Bld) 0.2 % Normal 0.2-2.0 [facility] Comment on above: Performed By: #### H H #### [facility] [address] [place], [place] [address] Dr. Ramya Ramey EO # 0.1 103/ul Normal 0.0-0.7 [facility] Comment on above: Performed By: #### H H #### [facility] [address] [place] [address] Dr. Ramya Ramey Eosinophils/100 WBC (Bld) 0.7 % Critically low 0.9-7.0 [facility] Comment on above: Performed By: #### H H #### [facility] [address] [place] [address] Dr. Ramya Ramey Erythrocyte distribution width (RBC) [Ratio] 13.4 % Normal 11.0-15.0 [facility] Comment on above: Performed By: #### H H #### [facility] [address] [place] [address] Dr. Ramya Ramey Hematocrit (Bld) [Volume fraction] 29.4 % Critically low 36.0-48.0 [facility] Comment on above: Performed By: #### H H #### [facility] [address] [place] [address] Dr. Ramya Ramey Hemoglobin (Bld) [Mass/Vol] 9.5 g/dL Critically low 12.0-16.0 [facility] Comment on above: Performed By: #### H H #### [facility] [address] [place] [address] Dr. Ramya Ramey IG # 0.06 10e3/ul Critically high 0.00-0.03 [facility] Comment on above: Performed By: #### H H #### [facility] [address] [place] [address] Dr. Ramya Ramey IG % 0.5 % Normal 0.0-0.5 [facility] Comment on above: Performed By: #### H H #### [facility] [address] [place] [address] Dr. Ramya Ramey LYMPH # 1.3 103/ul Normal 1.2-3.8 [facility] Comment on above: Performed By: #### H H #### [facility] [address] [place] [address] Dr. Ramya Ramey Lymphocytes/100 WBC (Bld) 11.5 % Critically low 20.5-60.0 [facility] Comment on above: Performed By: #### H H #### [facility] [address] [address] [address] Ramya Ramey MANUAL DIFF REQ NO Normal [facility] Comment on above: Performed By: #### H H #### [facility] [address] [place] [address] Dr. Ramya Ramey MCH (RBC) [Entitic mass] 28.4 pg Normal 26.7-34.0 [facility] Comment on above: Performed By: #### H H #### [facility] [address] [place] [address] Dr. Ramya Ramey MCHC (RBC) [Mass/Vol] 32.3 g/dL Normal 29.9-35.2 [facility] Comment on above: Performed By: #### H H #### [facility] [address] [place] [address] Dr. Ramya Ramey MCV (RBC) [Entitic vol] 88.0 fL Normal 81.0-99.0 [facility] Comment on above: Performed By: #### H H #### [facility] [address] [place] [address] Dr. Ramya Ramey MONO # 0.7 103/ul Normal 0.3-0.8 [facility] Comment on above: Performed By: #### H H #### [facility] [address] [place] [address] Dr. Ramya Ramey Monocytes/100 WBC (Bld) 5.9 % Normal 1.7-12.0 [facility] Comment on above: Performed By: #### H H #### [facility] [address] [place] [address] Dr. Ramya Ramey NEUT # 9.4 103/ul Critically high 1.4-6.5 [facility] Comment on above: Performed By: #### H H #### [facility] [address] [place] [address] Dr. Ramya Ramey Neutrophils/100 WBC (Bld) 81.2 % Critically high 43.0-75.0 [facility] Comment on above: Performed By: #### H H #### [facility] [address] [address] [address] Ramya Ramey Platelet mean volume (Bld) [Entitic vol] 11.9 fL Normal 9.5-13.5 [facility] Comment on above: Performed By: #### H H #### [facility] [address] [address] [address] Ramya Ramey PLT 162 103/ul Normal 150-450 [facility] Comment on above: Performed By: #### H H #### [facility] [address] [address] [address] Ramya Ramey RBC 3.34 106/ul Critically low 4.20-5.40 [facility] Comment on above: Performed By: #### H H #### [facility] [address] [address] [address] Ramya Ramey WBC 11.5 103/ul Critically high 4.0-11.0 [facility] Comment on above: Performed By: #### H H #### [facility] [address] [place] [address] Dr. Ramya Ramey CBC AUTO DIFFon 10-03-2021 BASO # 0.0 103/ul Normal 0.0-0.1 [facility] Comment on above: Performed By: #### H H #### [facility] [address] [address] [address] Ramya Ramey Basophils/100 WBC (Bld) 0.2 % Normal 0.2-2.0 [facility] Comment on above: Performed By: #### H H #### [facility] [address] [address] [address] Ramya Ramey EO # 0.1 103/ul Normal 0.0-0.7 [facility] Comment on above: Performed By: #### H H #### [facility] [address] [address] [address] Ramya Ramey Eosinophils/100 WBC (Bld) 0.9 % Normal 0.9-7.0 [facility] Comment on above: Performed By: #### H H #### [facility] [address] [address] [address] Ramya Ramey Erythrocyte distribution width (RBC) [Ratio] 13.3 % Normal 11.0-15.0 [facility] Comment on above: Performed By: #### H H #### [facility] [address] [address] [address] Ramya Ramey Hematocrit (Bld) [Volume fraction] 34.8 % Critically low 36.0-48.0 [facility] Comment on above: Performed By: #### H H #### [facility] [address] [place] [address] Dr. Ramya Ramey Hemoglobin (Bld) [Mass/Vol] 11.2 g/dL Critically low 12.0-16.0 [facility] Comment on above: Performed By: #### H H #### [facility] [address] [place] [address] Dr. Ramya Ramey IG # 0.07 10e3/ul Critically high 0.00-0.03 [facility] Comment on above: Performed By: #### H H #### [facility] [address] [place] [address] Dr. Ramya Ramey IG % 0.6 % Critically high 0.0-0.5 [facility] Comment on above: Performed By: #### H H #### [facility] [address] [place] [address] Dr. Ramya Ramey LYMPH # 1.5 103/ul Normal 1.2-3.8 [facility] Comment on above: Performed By: #### H H #### [facility] [address] [place] [address] Dr. Ramya Ramey Lymphocytes/100 WBC (Bld) 13.4 % Critically low 20.5-60.0 [facility] Comment on above: Performed By: #### H H #### [facility] [address] [place] [address] Dr. Ramya Ramey MANUAL DIFF REQ NO Normal [facility] Comment on above: Performed By: #### H H #### [facility] [address] [address] [address] Ramya Ramey MCH (RBC) [Entitic mass] 28.3 pg Normal 26.7-34.0 [facility] Comment on above: Performed By: #### H H #### [facility] [address] [address] [address] Ramya Ramey MCHC (RBC) [Mass/Vol] 32.2 g/dL Normal 29.9-35.2 [facility] Comment on above: Performed By: #### H H #### [facility] [address] [address] [address] Ramya Ramey MCV (RBC) [Entitic vol] 87.9 fL Normal 81.0-99.0 [facility] Comment on above: Performed By: #### H H #### [facility] [address] [place] [address] Dr. Ramya Ramey MONO # 0.5 103/ul Normal 0.3-0.8 [facility] Comment on above: Performed By: #### H H #### [facility] [address] [place] [address] Dr. Ramya Ramey Monocytes/100 WBC (Bld) 4.8 % Normal 1.7-12.0 [facility] Comment on above: Performed By: #### H H #### [facility] [address] [place] [address] Dr. Ramya Ramey NEUT # 8.9 103/ul Critically high 1.4-6.5 [facility] Comment on above: Performed By: #### H H #### [facility] [address] [place] [address] Dr. Ramya Ramey Neutrophils/100 WBC (Bld) 80.1 % Critically high 43.0-75.0 [facility] Comment on above: Performed By: #### H H #### [facility] [address] [place] [address] Dr. Ramya Ramey Platelet mean volume (Bld) [Entitic vol] 11.8 fL Normal 9.5-13.5 [facility] Comment on above: Performed By: #### H H #### [facility] [address] [address] [address] Ramya Ramey PLT 194 103/ul Normal 150-450 [facility] Comment on above: Performed By: #### H H #### [facility] [address] [place], [place] [address] Dr. Ramya Ramey RBC 3.96 106/ul Critically low 4.20-5.40 [facility] Comment on above: Performed By: #### H H #### [facility] [address] [id number] [address] Ramya Ramey WBC 11.1 103/ul Critically high 4.0-11.0 [facility] Comment on above: Performed By: #### H H #### [facility] [address] [address] [address] Ramya Ramey Covid-19 PCR ([facility])on SARS-CoV-2 (COVID-19) RNA JAKE+probe Ql (Unsp spec) Not detected Normal NOT DETECTED [facility] Comment on above: Result Comment: When [...] for this test is supported by the [place] of Health and Human Service's declaration that [...] used). Performed By: #### H H #### [facility] [address] [address] [address] Ramya Ramey DRUG SCREEN RAPID (URINE)on 10-03-2021 AMP Negative Normal NEGATIVE [facility] Comment on above: Performed By: #### H H #### [facility] [address] [address] [address] Ramya Ramey BAR Negative Normal NEGATIVE [facility] Comment on above: Performed By: #### H H #### [facility] [address] [place] [address] Dr. Ramya Ramey BUP Negative Normal NEGATIVE [facility] Comment on above: Performed By: #### H H #### [facility] [address] [place] [address] Dr. Ramya Ramey BZO Negative Normal NEGATIVE [facility] Comment on above: Performed By: #### H H #### [facility] [address] [place] [address] Dr. Ramya Ramey ANIBAL Negative Normal NEGATIVE [facility] Comment on above: Performed By: #### H H #### [facility] [address] [place] [address] Dr. Ramya Ramey CUT-OFFS SEE BELOW Normal [facility] Comment on above: Result Comment: AMP (Amphetamine): 500ng/mL, BAR (Barbituates): 200 ng/mL, BZO (Benzodiazepines): 150 ng/mL, BUP (Buprenorphine): 10 ng/mL, ANIBAL (Cocaine): 150 ng/mL, mAMP (Methamphetamine): 500 ng/mL, MTD (Methadone): 200 ng/mL, OPI (Opiates): 100 ng/mL, OXY (Oxycodone): 100 ng/mL, PCP (Phencyclidine): 25 ng/mL, PPX (Propoxyphene): 300 ng/mL, THC (Cannabinoids): 50 ng/mL, TCA (Trycyclic Antidepressants): 300 ng/mL Performed By: #### H H #### [facility] [address] [place] [address] Dr. Ramya Ramey DRUG CUT HEADER DRUG CLASS TEST SYSTEM CUT-OFF CONCENTRATIONS ARE FOLLOWS: Normal [facility] Comment on above: Performed By: #### H H #### [facility] [address] [place] [address] Dr. Ramya Ramey mAMP Negative Normal NEGATIVE [facility] Comment on above: Performed By: #### H H #### [facility] [address] [address] [address] Ramya Ramey MTD Negative Normal NEGATIVE [facility] Comment on above: Performed By: #### H H #### [facility] [address] [address] [address] Ramya Ramey OPI Negative Normal NEGATIVE [facility] Comment on above: Performed By: #### H H #### [facility] [address] [address] [address] Ramya Ramey OXY Negative Normal NEGATIVE [facility] Comment on above: Performed By: #### H H #### [facility] [address] [address] [address] Ramya Ramey PCP Negative Normal NEGATIVE [facility] Comment on above: Performed By: #### H H #### [facility] [address] [place] [address] Dr. Ramya Ramey PPX Negative Normal NEGATIVE [facility] Comment on above: Performed By: #### H H #### [facility] [address] [address] [address] Ramya Ramey TCA Negative Normal NEGATIVE [facility] Comment on above: Performed By: #### H H #### [facility] [address] [place] [address] Dr. Ramya Ramey THC Negative Normal NEGATIVE [facility] Comment on above: Performed By: #### H H #### [facility] [address] [place] [address] Dr. Ramya Ramey POINT OF CARE GLUCOSEon Glucose [Mass/Vol] 126 mg/dL Critically high 74-106 T [facility] Comment on above: Performed By: #### P OCGLUC #### [facility] [address] [place] [address] Dr. Ramya Ramey TYPE AND SCREENon 10-03-2021 TYPE AND SCREEN Negative Normal [facility] Comment on above: Performed By: #### P OCGLUC #### [facility] [address] [place] [address] Dr. Ramya Ramey CULTURE URINEon 10-01-2021 CULTURE URINE Culture Observations : LIGHT GROWTH OF MIXED GENITAL LEANA. NO POTENTIAL PATHOGENS SEEN. Normal [facility] Comment on above: Performed By: #### P OCGLUC #### [facility] [address] [place] [address] Dr. Ramya Ramey POINT OF CARE GLUCOSEon 09-04 Glucose [Mass/Vol] 134 mg/dL Critically high 74-106 T [facility] Comment on above: Performed By: #### P OCGLUC #### [facility] [address] [place] [address] Dr. Ramya Ramey UA (CLEAN/CATCH) MANUFACTURING ENGINEERING PROFESSOR/MICRO I F IND.on 10-01-2021 Bilirubin Ql (U) Negative Normal NEGATIVE The [facility] Comment on above: Performed By: #### U ACSIND, UMICRO #### [facility] [address] [place] [address] Dr. Ramya Ramey Clarity (U) CLEAR Normal CLEAR [facility] Comment on above: Performed By: #### U ACSIND, UMICRO #### [facility] [address] [place] [address] Dr. Ramya Ramey Color (U) YELLOW Normal YELLOW [facility] Comment on above: Performed By: #### U ACSIND, UMICRO #### [facility] [address] [place] [address] Dr. Ramya Ramey Glucose Ql (U) Negative Normal NEGATIVE [facility] Comment on above: Performed By: #### U ACSIND, UMICRO #### [facility] [address] [place] [address] Dr. Ramya Ramye Hemoglobin Ql (U) Negative Normal NEGATIVE [facility] Comment on above: Performed By: #### U ACSIND, UMICRO #### [facility] [address] [place] [address] Dr. Ramya Ramey Ketones Ql (U) Negative Normal NEGATIVE [facility] Comment on above: Performed By: #### U ACSIND, UMICRO #### [facility] [address] [place] [address] Dr. Ramya Ramey LEUKOCYTES LARGE Abnormal NEGATIVE [facility] Comment on above: Performed By: #### U ACSIND, UMICRO #### [facility] [address] [place] [address] Dr. Ramya Ramey Nitrite Ql (U) Negative Normal NEGATIVE [facility] Comment on above: Performed By: #### U ACSIND, UMICRO #### [facility] [address] [address] [address] Ramya Ramey pH (U) 6.5 [pH] Normal 5-9 [facility] Comment on above: Performed By: #### U ACSIND, UMICRO #### [facility] [address] [place] [address] Dr. Ramya Ramey SPEC GRAVITY 1.010 Normal 1.005-<=1.0 25 [facility] Comment on above: Performed By: #### U ACSIND, UMICRO #### [facility] [address] [place] [address] Dr. Ramya Ramey UA PROTEIN Negative Normal NEGATIVE/ TRACE [facility] Comment on above: Performed By: #### U ACSIND, UMICRO #### [facility] [address] [address] [address] Ramya Ramey UR MICRO IND INDICATED Normal [facility] Comment on above: Performed By: #### U ACSIND, UMICRO #### [facility] [address] [place] [address] Dr. Ramya Ramey Urobilinogen Qn (U) 0.2 {Sariah'U}/dL Normal 0.2 - 1. 0 [facility] Comment on above: Performed By: #### U ACSIND, UMICRO #### [facility] [address] [address] [address] Rayma Ramey URINE MICROSCOPIC ONLYon BACTERIA LARGE Abnormal NONE SEEN The [facility] Comment on above: Performed By: #### U ACSIND, UMICRO #### [facility] [address] [place] [address] Dr. Ramya Ramey Bacteria identified Cx Nom (U) INDICATED Normal [facility] Comment on above: Performed By: #### U ACSIND, UMICRO #### [facility] [address] [address] [address] Ramya Ramey CAST NONE SEEN Normal NONE SEEN [facility] Comment on above: Performed By: #### U ACSIND, UMICRO #### [facility] [address] [address] [address] Ramya Ramey Crystals LM Nom (Urine sed) NONE SEEN Normal NONE SEEN [facility] Comment on above: Performed By: #### U ACSIND, UMICRO #### [facility] [address] [address] [address] Ramya Ramey Epithelial cells LM Ql (Urine sed) MANY Abnormal NONE SEEN /RARE [facility] Comment on above: Performed By: #### U ACSCLOVER, UMICRO #### [facility] [address] [place] [address] Dr. Ramya Ramey MUCOUS TRACE Abnormal NONE SEEN The [facility] Comment on above: Performed By: #### U ACSCLOVER, UMICRO #### [facility] [address] [place] [address] Dr. Ramya Ramey RBC 5-10 Abnormal 0-2 [facility] Comment on above: Performed By: #### U ACSCLOVER, UMICRO #### [facility] [address] [place] [address] Dr. Ramya Ramey WBC 75-100 Abnormal NONE SEEN [facility] Comment on above: Performed By: #### U ACSCLOVER, UMICRO #### [facility] [address] [place] [address] Dr. Ramya Ramey GROUP B STREP CULTUREon [...] S F Tetracycline >=16 R F Normal [facility] Comment on above: Performed By: #### G BSCX #### [facility] [address] [place] [address] Dr. Ramya Ramey US PREG BIOPHY W [...] by: MARY CRAFT Date: 2021-09-26 10:40 Normal [facility] US PREG GROWTHon 09-26-2021 US PREG GROWTH [...] by: MARY CRAFT Date: 2021-09-26 10:42 Normal [facility] US PREG BIOPHY W NON STRESSo n [...] by: ZAYRA ORTIZ Date: 2021-09-20 07:12 Normal [facility] US PREG BIOPHY W NON STRESSo n [...] by: MARY CRAFT Date: 2021-09-12 16:24 Normal [facility] US PREG BIOPHY W NON STRESSo n [...] by: MARY CRAFT Date: 2021-09-05 16:47 Normal [facility] US PREG BIOPHY W NON STRESSo n [...] by: ZAYRA ORTIZ Date: 2021-08-31 07:14 Normal [facility] US PREG BIOPHY W NON STRESSo n [...] by: ZAYRA ORTIZ Date: 2021-08-30 07:11 Normal [facility] US PREG GROWTHon 08-30-2021 US PREG GROWTH [...] ZAYRA ORTIZ Date: 2021-08-30 07:10 Normal [facility] CULTURE URINEon 08-24-2021 CULTURE URINE Culture Observations : MODERATE GROWTH OF MIXED GENITAL LEANA. NO POTENTIAL PATHOGENS SEEN. Normal [facility] Comment on above: Performed By: #### P OCGLUC #### [facility] [address] [place] [address] Dr. Ramya Ramey POINT OF CARE GLUCOSEon 08-04 Glucose [Mass/Vol] 132 mg/dL Critically high 74-106 T [facility] Comment on above: Performed By: #### H H #### [facility] [address] [place] [address] Dr. Ramya Ramey UA (CLEAN/CATCH) MANUFACTURING ENGINEERING PROFESSOR/MICRO I F IND.on 08-24-2021 Bilirubin Ql (U) Negative Normal NEGATIVE [facility] Comment on above: Performed By: #### U ACSIND, UMICRO #### [facility] [address] [place] [address] Dr. Ramya Ramey Clarity (U) CLEAR Normal CLEAR [facility] Comment on above: Performed By: #### U ACSIND, UMICRO #### [facility] [address] [place] [address] Dr. Ramya Ramey Color (U) YELLOW Normal YELLOW [facility] Comment on above: Performed By: #### U ACSIND, UMICRO #### [facility] [address] [place] [address] Dr. Ramya Ramey Glucose Ql (U) 250 mg/dl Abnormal NEGATIVE [facility] Comment on above: Performed By: #### U ACSIND, UMICRO #### [facility] [address] [place] [address] Dr. Ramya Ramey Hemoglobin Ql (U) TRACE-INTACT Abnormal NEGATIVE [facility] Comment on above: Performed By: #### U ACSIND, UMICRO #### [facility] [address] [place] [address] Dr. Ramya Ramey Ketones Ql (U) Negative Normal NEGATIVE [facility] Comment on above: Performed By: #### U ACSIND, UMICRO #### [facility] [address] [place] [address] Dr. Ramya Ramey LEUKOCYTES MODERATE Abnormal NEGATIVE [facility] Comment on above: Performed By: #### U ACSIND, UMICRO #### [facility] [address] [place] [address] Dr. Ramya Ramey Nitrite Ql (U) Negative Normal NEGATIVE [facility] Comment on above: Performed By: #### U ACSCLOVER, UMICRO #### [facility] [address] [place] [address] Dr. Ramya Ramey pH (U) 6.0 [pH] Normal 5-9 [facility] Comment on above: Performed By: #### U ACSCLOVER, UMICRO #### [facility] [address] [place] [address] Dr. Ramya Ramey SPEC GRAVITY 1.020 Normal 1.005-<=1.0 25 [facility] Comment on above: Performed By: #### U ACSCLOVER, UMICRO #### [facility] [address] [place] [address] Dr. Ramya Ramey UA PROTEIN TRACE Normal NEGATIVE/ TRACE [facility] Comment on above: Performed By: #### U ACSCLOVER, UMICRO #### [facility] [address] [place] [address] Dr. Ramya Ramey UR MICRO IND INDICATED Normal [facility] Comment on above: Performed By: #### U ACSCLOVER, UMICRO #### [facility] [address] [place] [address] Dr. Ramya Ramey Urobilinogen Qn (U) 0.2 {Sariah'U}/dL Normal 0.2 - 1. 0 [facility] Comment on above: Performed By: #### U ACSCLOVER, UMICRO #### [facility] [address] [place] [address] Dr. Ramya Ramey URINE MICROSCOPIC ONLYon BACTERIA MODERATE Abnormal NONE SEEN [facility] Comment on above: Performed By: #### U ACSIND, UMICRO #### [facility] [address] [place] [address] Dr. Ramya Ramey Bacteria identified Cx Nom (U) INDICATED Normal [facility] Comment on above: Performed By: #### U ACSCLOVER, UMICRO #### [facility] [address] [place] [address] Dr. Ramya Ramey CAST NONE SEEN Normal NONE SEEN [facility] Comment on above: Performed By: #### U ACSCLOVER, UMICRO #### [facility] [address] [place] [address] Dr. Ramya Ramey Crystals LM Nom (Urine sed) NONE SEEN Normal NONE SEEN [facility] Comment on above: Performed By: #### U ACSCLOVER, UMICRO #### [facility] [address] [place] [address] Dr. Ramya Ramey Epithelial cells LM Ql (Urine sed) MANY Abnormal NONE SEEN /RARE [facility] Comment on above: Performed By: #### U ACSCLOVER, ICRO #### [facility] [address] [place] [address] Dr. Ramya Ramey MUCOUS NONE SEEN Normal NONE SEEN [facility] Comment on above: Performed By: #### U ACSCLOVER, ICRO #### [facility] [address] [place] [address] Dr. Ramya Ramey RBC 2-5 Abnormal 0-2 [facility] Comment on above: Performed By: #### U RHYS UMICRO #### [facility] [address] [place] [address] Dr. Ramya Ramey WBC 10-20 Abnormal NONE SEEN [facility] Comment on above: Performed By: #### U RHYS, UMICRO #### [facility] [address] [place] [address] Dr. Ramya Ramey HEPATITIS C ANTIBODYon 07-18 Hep C Virus Ab <0.1 Normal 0.0-0.9 [facility] Comment on above: Result Comment: Nega tive: < 0.8 Indeterminate: 0.8 - 0.9 Positive: > 0.9 . The CDC recommends that a positive HCV antibody result be followed up with a HCV Nucleic Acid Amplification test (345462). Performed By: #### H CV #### [facility] [address] [place] [address] Dr. Ramya Ramey ABO AND RH TYPEon 07-17-2021 ABO and Rh group Nom (Bld) ABO Rh Typing B Rh Positive Normal [facility] Comment on above: Performed By: #### P OCGLUC #### [facility] [address] [place] [address] Dr. Ramya Ramey GLUCOSE - 1HRon 07-17-2021 Glucose [Mass/Vol] 238 mg/dL Critically high 74-106 T he [facility] Comment on above: Performed By: #### G LU1HR #### [facility] [address] [place] [address] Dr. Ramya Ramey GLYCOHEMOGLOBIN A1Con 2021 ADA RECOMMENDATION ADA THERAPEUTIC TARGET 6.0 - 7.0 ACTION SUGGESTED > 7.0 Normal [facility] Comment on above: Performed By: #### H H #### [facility] [address] [place] [address] Dr. Ramya Ramey Glucose [Mass/Vol] 120 mg/dL Normal [facility] Comment on above: Performed By: #### H H #### [facility] [address] [place] [address] Dr. Ramya Ramey HbA1c (Bld) [Mass fraction] 5.8 % Normal <=6.0 [facility] Comment on above: Performed By: #### H H #### [facility] [address] [place] [address] Dr. Ramya Ramey HEMOGRAM AND PLATELon 2021 Hematocrit (Bld) [Volume fraction] 33.3 % Critically low 36.0-48.0 [facility] Comment on above: Performed By: #### H H #### [facility] [address] [place] [address] Dr. Ramya Ramey Hemoglobin (Bld) [Mass/Vol] 10.8 g/dL Critically low 12.0-16.0 [facility] Comment on above: Performed By: #### H H #### [facility] [address] [address] [address] Ramya Ramey MCH (RBC) [Entitic mass] 28.9 pg Normal 26.7-34.0 [facility] Comment on above: Performed By: #### H H #### [facility] [address] [address] [address] Ramya Ramey MCHC (RBC) [Mass/Vol] 32.4 g/dL Normal 29.9-35.2 [facility] Comment on above: Performed By: #### H H #### [facility] [address] [address] [address] Ramya Ramey MCV (RBC) [Entitic vol] 89.0 fL Normal 81.0-99.0 [facility] Comment on above: Performed By: #### H H #### [facility] [address] [place] [address] Dr. Ramya Ramey PLT 217 103/ul Normal 150-450 [facility] Comment on above: Performed By: #### H H #### [facility] [address] [address] [address] Ramya Ramey RBC 3.74 106/ul Critically low 4.20-5.40 [facility] Comment on above: Performed By: #### H H #### [facility] [address] [address] [address] Ramya Ramey WBC 11.5 103/ul Critically high 4.0-11.0 [facility] Comment on above: Performed By: #### H H #### [facility] [address] [place] [address] Dr. Ramya Ramey CHLAMYDIA/GONOCOCCUS JAKE (SW AB/URINE/PAPon 06-21-2021 Chlamydia trachomatis, JAKE Negative Normal Negative [facility] Comment on above: Performed By: #### C T/NGNA #### [facility] [address] [place] [address] Dr. Ramya Ramey Neisseria gonorrhoeae, JAKE Negative Normal Negative [facility] Comment on above: Performed By: #### C T/NGNA #### [facility] [address] [place], [place] [address] Dr. Ramya Ramey VAGINITIS/VAGINOSIS DNA PROB [place] 06-20-2021 Elodia species Negative Normal Negative [facility] Comment on above: Performed By: #### H H #### [facility] [address] [address] [address] Ramya Ramey Gardnerella vaginalis Positive Abnormal Negative [facility] Comment on above: Performed By: #### H H #### [facility] [address] [address] [address] Ramya Ramey Trichomonas vaginalis Negative Normal Negative [facility] Comment on above: Performed By: #### H H #### [facility] [address] [address] [address] Ramya Ramey AFP, Maternalon 06-03-2021 Determined by Other Normal [facility] Comment on above: Performed By: #### C MIS #### [facility] [address] [place] [address] Supervisor Dumping: Antoine Wilson MD #### AAFPM #### [address] [address] Supervisor Dumping: Antoine Wilson MD [address] [address] Supervisor Dumping: Nick Mills MD Due Date SEE NOTE Normal [facility] Comment on above: Result Comment: Resu lts for Estimated Due Date: 10 21 21 Performed By: #### C MIS #### [facility] [address] [place] [address] Supervisor Dumping: Antoine Wilson MD #### AAFPM #### [facility] [address] [place] [address] Supervisor Dumping: Antoine Wilson MD [facility] [address] [place] [address] Supervisor Dumping: Nick Mills MD Family History No Normal [facility] Comment on above: Performed By: #### C MIS #### [address] [address] Supervisor Dumping: Antoine Wilson MD #### AAFPM #### [address] [address] Supervisor Dumping: Antoine Wilson MD [address] [address] Supervisor Dumping: Nick Mills MD Gestat Age (exact) 19 wks, 4 days Normal [facility] Comment on above: Performed By: #### C MIS #### [address] [address] Supervisor Dumping: Antoine Wilson MD #### AAFPM #### [address] [address] Supervisor Dumping: Antoine Wilson MD [address] [address] Supervisor Dumping: Nick Mills MD Ins Req Matern Diab Unknown Normal [facility] Comment on above: Performed By: #### C MIS #### [address] [address] Supervisor Dumping: Antoine Wilson MD #### AAFPM #### [address] [address] Supervisor Dumping: Antoine Wilson MD [address] [address] Supervisor Dumping: Nick Mills MD Interpretation Screen Neg Normal [facility] Comment on above: Result Comment: (NOT E) INTERPRETATION: SCREEN NEGATIVE for open spina bifida Neural Tube Defects (NTD) Negative Pre-Test Post-Test Cutoff Neural Tube Defects Risks 1:1030 1:7440 1:250 Comments: The risk of an open neural tube defect is less than the screening cut-off. This test was developed and its performance characteristics determined by [employer]. It has not been cleared or approved by the [place] Food and Drug Administration. This test was performed in a CLIA certified laboratory and is intended for clinical purposes. Performed By: #### C MIS #### [address] [address] Supervisor Dumping: Antoine Wilson MD #### AAFPM #### [address] [address] Supervisor Dumping: Antoine Wilson MD [address] [address] Supervisor Dumping: Nick Mills MD [age] [facility] Comment on above: Performed By: #### C MIS #### [address] [address] Supervisor Dumping: Antoine Wilson MD #### AAFPM #### [address] [address] Supervisor Dumping: Antoine Wilson MD [address] [phone] Supervisor Dumping: Nick Mills MD Maternal Race Nonblack [facility] Comment on above: Performed By: #### C MIS #### [address] [address] Supervisor Dumping: Antoine Wilson MD #### AAFPM #### [address] [address] Supervisor Dumping: Antoine Wilson MD [facility] [address] [place] [phone] Supervisor Dumping: Nick Mills MD Maternal Weight 204.0 lbs. [facility] Comment on above: Performed By: #### C MIS #### [address] [address] Supervisor Dumping: Antoine Wilson MD #### AAFPM #### [address] [address] Supervisor Dumping: Antoine Wilson MD [address] [address] Supervisor Dumping: Nick Mills MD MoM for AFP 1.[address] [facility] Comment on above: Performed By: #### C MIS #### [address] [address] Supervisor Dumping: Antoine Wilson MD #### AAFPM #### [address] [address] Supervisor Dumping: Antoine Wilson MD [address] [phone] Supervisor Dumping: Nick Mills MD Number of Fetuses [facility] Comment on above: Performed By: #### C MIS #### [address] [address] Supervisor Dumping: Antoine Wilson MD #### AAFPM #### [address] [address] Supervisor Dumping: Antoine Wilson MD [address] [address] Supervisor Dumping: Nick Mills MD Patient's AFP 55 ng/mL Normal [facility] Comment on above: Performed By: #### C MIS #### [address] [address] Supervisor Dumping: Antoine Wilson MD #### AAFPM #### [address] [address] Supervisor Dumping: Antoine Wilson MD [address] [address] Supervisor Dumping: Nick Mills MD Smoking Yes [facility] Comment on above: Performed By: #### C MIS #### [address] [address] Supervisor Dumping: Antoine Wilson MD #### AAFPM #### [address] [address] Supervisor Dumping: Antoine Wilson MD [address] [phone] Supervisor Dumping: Nick Mills MD Specimen See Note [facility] Comment on above: Result Comment: (NOT E) Initial sample Performed by [email or web address], [address] [place] [address] [id number] [email or web address], Noreen Flores MD, Lab. Director Performed By: #### C MIS #### [address] [address] Supervisor Dumping: Antoine Wilson MD #### AAFPM #### [address] [address] Supervisor Dumping: Antoine Wilson MD [address] [phone] Supervisor Dumping: Nick Mills MD AFP, Maternalon 06-01-2021 Current Smoking YES [facility] Comment on above: Performed By: #### C MIS #### [address] [address] Supervisor Dumping: Antoine Wilson MD #### AAFPM #### [address] [address] Supervisor Dumping: Antoine Wilson MD [address] [phone] Supervisor Dumping: Nick Mills MD Dating LMP [facility] Comment on above: Performed By: #### C MIS #### [address] [address] Supervisor Dumping: Antoine Wilson MD #### AAFPM #### [address] [address] Supervisor Dumping: Antoine Wilson MD [facility] [address] [place] [phone] Supervisor Dumping: Nick Mills MD Diabetic INFORMATION NOT PROVIDED [facility] Comment on above: Performed By: #### C MIS #### [facility] [address] [place] [id number] Supervisor Dumping: Antoine Wilson MD #### AAFPM #### [address] [address] Supervisor Dumping: Antoine Wilson MD [address] [address] Supervisor Dumping: Nick Mills MD Donor Egg NO [facility] Comment on above: Performed By: #### C MIS #### [address] [address] Supervisor Dumping: Antoine Wilson MD #### AAFPM #### [address] [address] Supervisor Dumping: Antoine Wilson MD [address] [address] Supervisor Dumping: Nick Mills MD Estimated Due Date 10 21 2021 [facility] Comment on above: Performed By: #### C MIS #### [address] [address] Supervisor Dumping: Antoine Wilson MD #### AAFPM #### [address] [address] Supervisor Dumping: Antoine Wilson MD [address] [address] Supervisor Dumping: Nick Mills MD Family History NO [facility] Comment on above: Performed By: #### C MIS #### [address] [address] Supervisor Dumping: Antoine Wilson MD #### AAFPM #### [address] [address] Supervisor Dumping: Antoine Wilson MD [facility] [address] [place] [address] Supervisor Dumping: Nick Mills MD In V[employer] [facility] Comment on above: Performed By: #### C MIS #### [address] [address] Supervisor Dumping: Antoine Wilson MD #### AAFPM #### [address] [address] Supervisor Dumping: Antoine Wilson MD [facility] [address] [place] [address] Supervisor Dumping: Nick Mills MD LMP date 01 14 2021 [facility] Comment on above: Performed By: #### C MIS #### [address] [address] Supervisor Dumping: Antoine Wilson MD #### AAFPM #### [address] [address] Supervisor Dumping: Antoine Wilson MD [facility] [address] [place] [address] Supervisor Dumping: Nick Mills MD Maternal date 08 14 1997 [facility] Comment on above: Performed By: #### C MIS #### [address] [address] Supervisor Dumping: Antoine Wilson MD #### AAFPM #### [address] [address] Supervisor Dumping: Antoine Wilson MD [facility] [address] [place] [phone] Supervisor Dumping: Nick Mills MD Maternal Weight [address] [facility] Comment on above: Performed By: #### C MIS #### [address] [address] Supervisor Dumping: Antoine Wilson MD #### AAFPM #### [address] [address] Supervisor Dumping: Antoine Wilson MD [address] [phone] Supervisor Dumping: Nick Mills MD Monochorionic Twins TATE [facility] Comment on above: Performed By: #### C MIS #### [address] [address] Supervisor Dumping: Antoine Wilson MD #### AAFPM #### [address] [address] Supervisor Dumping: Antoine Wilson MD [address] [phone] Supervisor Dumping: Nick Mills MD Patient Weight Units LBS Normal [facility] Comment on above: Performed By: #### C MIS #### [address] [address] Supervisor Dumping: Antoine Wilson MD #### AAFPM #### [address] [address] Supervisor Dumping: Antoine Wilson MD [facility] [address] [place] [address] Supervisor Dumping: Nick Mills MD Race (Maternal) WHITE Normal [facility] Comment on above: Performed By: #### C MIS #### [facility] [address] [place] [address] Supervisor Dumping: Antoine Wilson MD #### AAFPM #### [facility] [address] [place] [address] Supervisor Dumping: Antoine Wilson MD [address] [address] Supervisor Dumping: Nick Mills MD Repeat Specimen INFORMATION NOT PROVIDED Normal [facility] Comment on above: Performed By: #### C MIS #### [address] [address] Supervisor Dumping: Antoine Wilson MD #### AAFPM #### [address] [address] Supervisor Dumping: Antoine Wilson MD [address] [address] Supervisor Dumping: Nick Mills MD Valproic/Carbamazep INFORMATION NOT PROVIDED Normal [facility] Comment on above: Performed By: #### C MIS #### [address] [address] Supervisor Dumping: Antoine Wilson MD #### AAFPM #### [address] [address] Supervisor Dumping: Antoine Wilson MD [address] [address] Supervisor Dumping: Nick Mills MD Miscellaneouson 06-01-2021 Send Out Report [facility] [phone] [facility] Comment on above: Performed By: #### C MIS #### [address] [address] Supervisor Dumping: Antoine Wilson MD #### AAFPM #### [address] [address] Supervisor Dumping: Antoine Wilson MD [facility] [address] [place] [address] Supervisor Dumping: Nick Mills MD Miscellaneouson 05-31-2021 Test Name [address] Normal [facility] Comment on above: Performed By: #### C MIS #### [address] [address] Supervisor Dumping: Antoine Wilson MD #### AAFPM #### [facility] [address] [place] [address] Supervisor Dumping: Antoine Wilson MD [facility] [address] [place] [address] Supervisor Dumping: Nick iMlls MD COVID-19, Rapidon 05-22-2021 Interpretation and review of laboratory results Abnormal [facility] SARS-CoV-2 (COVID-19) RNA JAKE+probe Ql (Unsp spec) Detected Abnormal Not Detected [facility] Comment on above: Rapid NAAT: The specimen [...] this assay. Fact sheet for Healthcare Providers: https://www.fda.gov/media/167219/download Fact sheet for Patients: https://www.fda.gov/media/788057/download Methodology: Isothermal Nucleic Acid Amplification Results reported to the appropriate Health Department Specimen Description .NASOPHARYNGEAL SWAB [facility] Basic Metabolic Panelon 12-0 Anion gap [Moles/Vol] 14 mmol/L 9 - 17 mmol/L [facility] Calcium [Mass/Vol] 9.3 mg/dL 8.6 - 10. 4 mg/dL [facility] Chloride [Moles/Vol] 100 mmol/L 98 - 10 7 mmol/L [facility] CO2 [Moles/Vol] 19 mmol/L Low 20 - 31 mmol/L [facility] Creatinine [Mass/Vol] 0.48 mg/dL Low 0.50 - 0.90 mg/dL [facility] GFR >60 >60 mL/min be2 GFR Non- >60 >60 mL/min [facility] GFR/1.73 sq M.predicted MDRD (S/P/Bld) [Vol rate/Area] [facility] Comment on above: Average GFR for 20-2 9 years old: 116 mL/min/1.73sq m Chronic Kidney Disease: <60 mL/min/1.73sq m Kidney failure: <15 mL/min/1.73sq m eGFR calculated using average adult body mass. Additional eGFR calculator available at: http://www.CHARMS PPEC/multiple_crcl_2012.htm GFR/1.73 sq M.predicted MDRD (S/P/Bld) [Vol rate/Area] NOT REPORTED [facility] Glucose [Mass/Vol] 209 mg/dL High 70 - 99 mg/dL [facility] Interpretation and review of laboratory results Abnormal [facility] Potassium [Moles/Vol] 3.9 mmol/L 3.7 - 5.3 mmol/L [facility] Sodium [Moles/Vol] 133 mmol/L Low 135 - 144 mmol/L [facility] Urea nitrogen (BldV) [Mass/Vol] 7 mg/dL 6 - 20 mg/dL [facility] Urea nitrogen/Creatinine (Bld) [Mass ratio] 15 [facility] US OB 1ST TRIMESTER TRANSBDO BECKY ONLY [...] Doppler analysis. Somatic motion also noted by seasoning sprayer. Uterus measures 13.4 x 7.8 x 8.7 [...] ID: [id number] Dictated by: BLAINE CHIU on [place] Apr 01, 2021 8:19:34 PM EST Transcribed by: BLAINE CHIU on [place] Apr 01, 2021 8:19:34 PM EST Finalized by: BLAINE CHIU on [place] Apr 01, 2021 8:19:34 PM EST Normal [facility] Comment on above: Order Comment: Injur y/Trauma or Illness?:Illness/Other How long have you had these symptoms (acute/chronic)?:Acute Reason for exam?:vaginal bleeding, rt pelvic pain History of cancer?:na Surgeries, chemotherapy, or radiation?:na Type of Exam?:Initial Additional signs and symptoms?:n Microscopic UrinalysisOrdere d By: Braydon May on 02-10-2021 - [facility] Work Phone: Amorphous, UA NOT REPORTED None [facility] Work Phone: Bacteria, UA 1+ Abnormal None [facility] Work Phone: Casts UA NOT REPORTED /LPF [facility] Work Phone: Crystals, UA NOT REPORTED None /HPF [facility] Work Phone: Epithelial Cells UA 5 TO 10 /HPF [facility] Work Phone: Interpretation and review of laboratory results Abnormal [facility] Work Phone: Mucus, UA NOT REPORTED None [facility] Work Phone: Other Observations UA NOT REPORTED NOT REQ. M [facility] Work Phone: RBC, UA 0 TO 2 [facility] Work Phone: Renal Epithelial, UA NOT REPORTED 0 /HPF [facility] Work Phone: Trichomonas, UA NOT REPORTED None [facility] Work Phone: WBC, UA 2 TO 5 0 /HPF [facility] Work Phone: Yeast, UA NOT REPORTED None [facility] Work Phone: [facility] Work Phone: UrinalysisOrdered By: Braydon May on 02-10-2021 Bilirubin Urine Negative NEGATIVE [facility] Work Phone: Color, UA Yellow Yellow [facility] Work Phone: Glucose, Ur Negative NEGATIVE [facility] Work Phone: Interpretation and review of laboratory results Abnormal [facility] Work Phone: Ketones Ql (U) Negative NEGATIVE [facility] Work Phone: Leukocyte esterase Test strip Ql (U) 2+ Abnormal NEGATIVE [facility] Work Phone: Nitrite, Urine Negative NEGATIVE [facility] Work Phone: pH, UA 6.0 [facility] Work Phone: Protein, UA Negative NEGATIVE [facility] Work Phone: Specific [place], UA 1.020 [facility] Work Phone: Turbidity UA Clear Clear [employer] Phone: Urinalysis Comments [employer] Phone: Urine Hgb 1+ Abnormal NEGATIVE [employer] Phone: Urobilinogen, Urine Normal Normal [facility] Phone: [employer] Phone: hCG, quantitative, Ordered By: Braydon May on 02-10-2021 hCG Quant 160 High <5 IU/L [employer] Phone: Comment on above: Non-preg premeno <=5 Postmeno <=8 Male <=3 If HCG results do not concur with clinical observations, additional testing to confirm results is recommended. Elevated results not associated with may be found in patients with other diseases such as tumors of the germ cells (testis, ovaries, etc.), bladder, pancreas, stomach, lungs, and liver. Interpretation and review of laboratory results Abnormal [employer] Phone: [employer] Phone: CBC Auto DifferentialOrdered By: Bea Jacobs on 12-10-2020 Absolute Eos # 0.10 [facility] Work Phone: Absolute Immature Granulocyte NOT REPORTED [facility] Phone: Absolute Lymph # 1.80 [facility] Work Phone: Absolute Gila # 0.70 [facility] Work Phone: Basophils (Bld) [#/Vol] 0.10 10*3/uL [facility] Work Phone: Basophils/100 WBC (Bld) 1 % 0 - 2 % M [facility] Work Phone: Differential Type YES [facility] Work Phone: Eosinophils/100 WBC (Bld) 1 % 0 - 5 % [email or web address] Work Phone: Hematocrit (Bld) [Volume fraction] 42.8 % 36 - 46 % [employer] Phone: Hemoglobin.gastrointest inal spec 1 Ql (Stl) 14.6 g/dL 12.0 - 16.0 g/dL [employer] Phone: Immature Granulocytes NOT REPORTED 0 % M [employer] Phone: Interpretation and review of laboratory results Abnormal [employer] Phone: Lymphocytes/100 WBC (Bld) 16 % 15 - 40 % [employer] Phone: MCH (RBC) [Entitic mass] 30.0 pg 26 - 34 pg [employer] Phone: MCHC (RBC) [Mass/Vol] 34.2 g/dL 31 - 3 7 g/dL [employer] Phone: MCV (RBC) [Entitic vol] 87.8 fL 80 - 100 fL [employer] Phone: Monocytes/100 WBC (Bld) 6 % 4 - 8 % M [employer] Phone: NRBC Automated NOT REPORTED per 100 WBC [facility] Work Phone: Platelet distribution width (Bld) [Ratio] 13.1 % 12.1 - 15.2 % [employer] Phone: Platelet Estimate NOT REPORTED [employer] Phone: Platelet mean volume (Bld) [Entitic vol] NOT REPORTED 6.0 - 12.0 fL [employer] Phone: Platelets (Bld) [#/Vol] 230 10*3/uL [employer] Phone: RBC (Bld) [#/Vol] 4.87 10*6/uL 4.0 - 5.2 m/uL [employer] Phone: RBC (Bld) [#/Vol] NOT REPORTED [employer] Phone: Segmented neutrophils/100 WBC (Bld) 76 % High 47 - 75 % [employer] Phone: Segs Absolute 8.80 High [employer] Work Phone: WBC (Bld) [#/Vol] 11.5 10*3/uL High [facility] Work Phone: WBC (Bld) [#/Vol] NOT REPORTED [facility] Work Phone: [facility] Work Phone: Comprehensive Metabolic Pane l w/ Reflex to MGOrdered By: Bea Jacobs on 12-10-2020 Albumin [Mass/Vol] 4.3 g/dL 3.5 - 5.2 g/dL [employer] Phone: Albumin/Globulin Ratio NOT REPORTED [employer] Phone: ALP (Bld) [Catalytic activity/Vol] 105 U/L High 35 - 104 U/L [facility] Work Phone: ALT [Catalytic activity/Vol] 17 U/L 5 - 33 U/L [employer] Phone: Anion gap [Moles/Vol] 12 mmol/L 9 - 17 mmol/L [employer] Phone: AST [Catalytic activity/Vol] 17 U/L <32 [employer] Phone: Bilirubin [Mass/Vol] 0.50 mg/dL 0.30 - 1.20 mg/dL [employer] Phone: Calcium [Mass/Vol] 9.3 mg/dL 8.6 - 10. 4 mg/dL [employer] Phone: Chloride [Moles/Vol] 105 mmol/L 98 - 10 7 mmol/L [employer] Phone: CO2 [Moles/Vol] 22 mmol/L 20 - 31 mmol/L [employer] Phone: Creatinine [Mass/Vol] 0.6 mg/dL 0.50 - 0.90 mg/dL [employer] Phone: Free PSA/Total PSA [Mass fraction] 7.3 g/dL 6.4 - 8.3 g/dL [employer] Phone: GFR >60 >60 mL/min [facility] Phone: GFR Non- >60 >60 mL/min [employer] Phone: GFR/1.73 sq M.predicted MDRD (S/P/Bld) [Vol rate/Area] [employer] Phone: Comment on above: Average GFR for 20-2 9 years old: 116 mL/min/1.73sq m Chronic Kidney Disease: <60 mL/min/1.73sq m Kidney failure: <15 mL/min/1.73sq m eGFR calculated using average adult body mass. Additional eGFR calculator available at: http://www.CHARMS PPEC/multiple_crcl_2012.htm GFR/1.73 sq M.predicted MDRD (S/P/Bld) [Vol rate/Area] NOT REPORTED [employer] Phone: Glucose [Mass/Vol] 102 mg/dL High 70 - 99 mg/dL [employer] Phone: Interpretation and review of laboratory results Abnormal [employer] Phone: Potassium [Moles/Vol] 3.9 mmol/L 3.7 - 5.3 mmol/L [employer] Phone: Sodium [Moles/Vol] 139 mmol/L 135 - 144 mmol/L [employer] Phone: Urea nitrogen (BldV) [Mass/Vol] 15 mg/dL 6 - 20 mg/dL [employer] Phone: Urea nitrogen/Creatinine (Bld) [Mass ratio] 25 High [employer] Phone: [employer] Phone: HCG Qualitative, SerumOrdere d By: Bea Jacobs on 12-10-2020 hCG Qual Negative NEGATIVE [employer] Phone: Comment on above: Specimens with hCG l evels near the threshold of the test (25 mIU/mL) may give a negative or indeterminate result. In such cases, another test should be performed with a new specimen in 48-72 hours. If early is suspected clinically in this setting, correlation with quantitative serum b-hCG level is suggested. [employer] has confirmed the use of plasma for this test. This has not been cleared or approved by the U.S. Food and Drug Administration. The FDA has determined that such clearance is not necessary. [employer] Phone: Acetaminophen Levelon 2020 Acetaminophen [Mass/Vol] <5 Low 10 - 30 ug/mL [employer] Phone: Interpretation and review of laboratory results Abnormal [employer] Phone: Basic Metabolic Panelon 03-3 Anion gap [Moles/Vol] 11 mmol/L 9 - 17 mmol/L [employer] Phone: Bun/Cre Ratio 27 High [employer] Work Phone: Calcium [Mass/Vol] 9.4 mg/dL 8.6 - 10. 4 mg/dL [employer] Phone: Chloride [Moles/Vol] 104 mmol/L 98 - 10 7 mmol/L [employer] Phone: CO2 [Moles/Vol] 26 mmol/L 20 - 31 mmol/L [employer] Phone: Creatinine [Mass/Vol] 0.71 mg/dL 0.50 - 0.90 mg/dL [employer] Phone: GFR >60 >60 mL/min [facility] Phone: GFR Non- >60 >60 mL/min [employer] Phone: GFR/1.73 sq M predicted among non-blacks MDRD (S/P/Bld) [Vol rate/Area] NOT REPORTED [employer] Phone: GFR/1.73 sq M predicted among non-blacks MDRD (S/P/Bld) [Vol rate/Area] [employer] Phone: Comment on above: Average GFR for 20-2 9 years old: 116 mL/min/1.73sq m Chronic Kidney Disease: <60 mL/min/1.73sq m Kidney failure: <15 mL/min/1.73sq m eGFR calculated using average adult body mass. Additional eGFR calculator available at: http://www.CHARMS PPEC/multiple_crcl_2012.htm Glucose [Mass/Vol] 113 mg/dL High 70 - 99 mg/dL [employer] Phone: Potassium [Moles/Vol] 4.0 mmol/L 3.7 - 5.3 mmol/L [employer] Phone: Sodium [Moles/Vol] 141 mmol/L 135 - 144 mmol/L [employer] Phone: Urea nitrogen [Mass/Vol] 19 mg/dL 6 - 20 mg/dL [employer] Phone: CBC Auto Differentialon 03-3 0-2020 Basophils (Bld) [#/Vol] 0.10 10*3/uL [employer] Phone: Basophils/100 WBC (Bld) 1 % 0 - 2 % M [facility] Phone: Differential Type YES [place] Work Phone: Eosinophils (Bld) [#/Vol] 0.10 10*3/uL [employer] Phone: Eosinophils/100 WBC (Bld) 1 % 0 - 5 % [facility] Phone: Erythrocyte distribution width (RBC) [Ratio] 13.3 % 12.1 - 15.2 % [employer] Phone: Hematocrit (Bld) [Volume fraction] 40.7 % 36 - 46 % [employer] Phone: Hemoglobin (Bld) [Mass/Vol] 13.8 g/dL 12.0 - 16.0 g/dL [employer] Phone: Interpretation and review of laboratory results Abnormal [employer] Phone: Lymphocytes (Bld) [#/Vol] 3.10 10*3/uL [employer] Phone: Lymphocytes/100 WBC (Bld) 28 % 15 - 40 % [employer] Phone: MCH (RBC) [Entitic mass] 30.1 pg 26 - 34 pg [employer] Phone: MCHC (RBC) [Mass/Vol] 33.8 g/dL 31 - 3 7 g/dL [employer] Phone: MCV (RBC) [Entitic vol] 88.8 fL 80 - 100 fL [employer] Phone: Monocytes (Bld) [#/Vol] 0.50 10*3/uL [employer] Phone: Monocytes/100 WBC (Bld) 5 % 4 - 8 % M [employer] Phone: Platelet mean volume (Bld) [Entitic vol] NOT REPORTED 6.0 - 12.0 fL [employer] Phone: Platelets (Bld) [#/Vol] 203 10*3/uL [employer] Phone: Platelets (Bld) [#/Vol] NOT REPORTED [employer] Phone: RBC (Bld) [#/Vol] 4.59 10*6/uL 4.0 - 5.2 m/uL [employer] Phone: RBC morphology finding Nom (Bld) NOT REPORTED [facility] Work Phone: Segmented neutrophils/100 WBC (Bld) 65 % 47 - 75 % [facility] Work Phone: Segs Absolute 7.30 [facility] Work Phone: WBC (Bld) [#/Vol] 11.0 10*3/uL [facility] Work Phone: WBC (Bld) [#/Vol] NOT REPORTED per 100 WBC be2 Work Phone: WBC Morphology NOT REPORTED [employer] [facility] Work Phone: COVID-19, Rapidon 8 SARS-CoV-2, Rapid Not Detected Not Detected [employer] Phone: Comment on above: Rapid NAAT: The [...] management decisions. Fact sheet for Healthcare Providers: https://www.fda.gov/media/756988/download Fact sheet for Patients: https://www.fda.gov/media/747068/download Methodology: Isothermal Nucleic Acid Amplification Specimen Description .NASOPHARYNGEAL SWAB [employer] Phone: Ethanolon 08-01-2020 Ethanol [Mass/Vol] mg/dL <10 mg/dL [facility] Work Phone: Ethanol percent <0.010 % [facility] Work Phone: HCG Qualitative, Serumon hCG Qual Negative NEGATIVE [facility] [employer] Phone: Comment on above: Specimens with hCG l evels near the threshold of the test (25 mIU/mL) may give a negative or indeterminate result. In such cases, another test should be performed with a new specimen in 48-72 hours. If early is suspected clinically in this setting, correlation with quantitative serum b-hCG level is suggested. [employer] has confirmed the use of plasma for this test. This has not been cleared or approved by the U.S. Food and Drug Administration. The FDA has determined that such clearance is not necessary. Otheron 08-01-2020 Interpretation and review of laboratory results Abnormal [facility] [employer] Phone: Immature granulocytes (Bld) [#/Vol] NOT REPORTED [facility] [employer] Phone: Salicylateon 08-01-2020 Salicylate Lvl <1 Low 3 - 10 mg/dL [facility] [employer] Phone: TSH with Reflexon 08-01-2020 TSH Qn 3.16 m[IU]/L [facility] [employer] Phone: Urine Drug Screenon 08-02-19 21 Amphetamine Screen, Ur Negative NEGATIVE [facility] [employer] Phone: Comment on above: (Positive cutoff 500 ng/mL) Barbiturate Screen, Ur Negative NEGATIVE [facility] [employer] Phone: Comment on above: (Positive cutoff 200 ng/mL) Benzodiazepine Screen, Urine Negative NEGATIVE [facility] [employer] Phone: Comment on above: (Positive cutoff 150 ng/mL) Buprenorphine Urine NOT REPORTED NEGATIVE [facility] [employer] Work Phone: Cannabinoid Scrn, Ur Negative NEGATIVE [facility] [employer] Phone: Comment on above: (Positive cutoff 50 ng/mL) Cocaine Metabolite, Urine Negative NEGATIVE [facility] [employer] Phone: Comment on above: (Positive cutoff 150 ng/mL) MDMA, Urine NOT REPORTED [facility]IVE [facility] Work Phone: Methadone Screen, Urine Negative NEGATIVE [facility] Work Phone: Comment on above: (Positive cutoff 200 ng/mL) Methamphetamine, Urine Negative NEGATIVE [facility] Work Phone: Comment on above: (Positive cutoff 500 ng/mL) Opiates, Urine Negative NEGATIVE [facility] Work Phone: Comment on above: (Positive cutoff 100 ng/mL) Oxycodone Screen, Ur Negative NEGATIVE [facility] Work Phone: Comment on above: (Positive cutoff 100 ng/mL) Phencyclidine, Urine Negative NEGATIVE [facility] Work Phone: Comment on above: (Positive cutoff 25 ng/mL) Propoxyphene, Urine Negative NEGATIVE [facility] Work Phone: Comment on above: (Positive cutoff 300 ng/mL) Test Information NOT REPORTED [facility] Work Phone: Tricyclic Antidepressants, Urine Negative NEGATIVE [facility] Work Phone: Comment on above: (Positive cutoff 300 ng/mL) Drug screen results are to be used for medical purposes only. All positive results are unconfirmed. Testing for employment or legal uses should be sent to a reference laboratory for confirmation. CBC Auto Differentialon 01-03 Basophils (Bld) [#/Vol] 0.00 10*3/uL [facility] [place] [place] Basophils/100 WBC (Bld) 1 % 0 - 2 % [place] Differential Type YES [place] Eosinophils (Bld) [#/Vol] 0.10 10*3/uL [facility] [place] Eosin[place]/100 WBC (Bld) 2 % 0 - 5 % [place] Erythrocyte distribution width (RBC) [Ratio] 13.4 % 12.1 - 15.2 % [facility] Hematocrit (Bld) [Volume fraction] 44.9 % 36 - 46 % [place] Hemoglobin (Bld) [Mass/Vol] 15.0 g/dL 12 - 16 g/dL [place] Lymphocytes (Bld) [#/Vol] 1.30 10*3/uL [place] Lymphocytes/100 WBC (Bld) 17 % 15 - 40 % [place] MCH (RBC) [Entitic mass] 29.7 pg 26 - 34 pg [place] MCHC (RBC) [Mass/Vol] 33.4 g/dL 31 - 3 7 g/dL [place] MCV (RBC) [Entitic vol] 88.9 fL 80 - 100 fL [place] Monocytes (Bld) [#/Vol] 0.40 10*3/uL [place] Monocytes/100 WBC (Bld) 5 % 4 - 8 % [place] Platelet mean volume (Bld) [Entitic vol] NOT REPORTED 6 - 12 fL [place] Platelets (Bld) [#/Vol] NOT REPORTED [place] Platelets (Bld) [#/Vol] 231 10*3/uL [place] RBC (Bld) [#/Vol] 5.05 10*6/uL 4 - 5.2 m/uL [place] RBC morphology finding Nom (Bld) NOT REPORTED [place] Segmented neutrophils/100 WBC (Bld) 75 % 47 - 75 % [place] Segs Absolute 5.80 [place] WBC (Bld) [#/Vol] 7.7 10*3/uL [place] WBC (Bld) [#/Vol] NOT REPORTED per 100 WBC [place] WBC Morphology NOT REPORTED [place] Comprehensive Metabolic Pane ammon 01-18-2020 Albumin [Mass/Vol] 4.6 g/dL 3.5 - 5.2 g/dL [place] Albumin/Globulin [Mass ratio] NOT REPORTED [place] ALP [Catalytic activity/Vol] 101 U/L 35 - 104 U/L [place] ALT [Catalytic activity/Vol] 21 U/L 5 - 33 U/L [place] Anion gap [Moles/Vol] 10 mmol/L 9 - 17 mmol/L [place] AST [Catalytic activity/Vol] 20 U/L <32 [place] Bilirubin Ql (U) 0.55 mg/dL 0.3 - 1.2 mg/dL [place] Bun/Cre Ratio 18 [place] Calcium [Mass/Vol] 9.2 mg/dL 8.6 - 10. 4 mg/dL [place] Chloride [Moles/Vol] 106 mmol/L 98 - 10 7 mmol/L [place] CO2 [Moles/Vol] 24 mmol/L 20 - 31 mmol/L [place] Creatinine [Mass/Vol] 0.74 mg/dL 0.5 - 0.9 mg/dL [place] GFR >60 >60 mL/min [place] GFR Non- >60 >60 mL/min [place] GFR/1.73 sq M predicted among non-blacks MDRD (S/P/Bld) [Vol rate/Area] [place] Comment on above: Average GFR for 20-2 9 years old: 116 mL/min/1.73sq m Chronic Kidney Disease: <60 mL/min/1.73sq m Kidney failure: <15 mL/min/1.73sq m eGFR calculated using average adult body mass. Additional eGFR calculator available at: http://www.[employer].Sopsy.com/multiple_crcl_2012.htm GFR/1.73 sq M predicted among non-blacks MDRD (S/P/Bld) [Vol rate/Area] NOT REPORTED [place] Glucose [Mass/Vol] 124 mg/dL High 70 - 99 mg/dL [place] Interpretation and review of laboratory results Abnormal [place] Potassium [Moles/Vol] 4.1 mmol/L 3.7 - 5.3 mmol/L [place] Protein [Mass/Vol] 8.5 g/dL High 6.4 - 8.3 g/dL [place] Sodium [Moles/Vol] 140 mmol/L 135 - 144 mmol/L [place] Urea nitrogen [Mass/Vol] 13 mg/dL 6 - 20 mg/dL [place] Otheron 01-18-2020 Immature granulocytes (Bld) [#/Vol] NOT REPORTED 0 % [place] TSH with Reflexon 01-18-2020 TSH Qn 1.30 m[IU]/L [place] Basic Metabolic Panel w/ Ref stephy to MGon 04-06-2019 Anion gap [Moles/Vol] 13 mmol/L 9 - 17 mmol/L [place] Bun/Cre Ratio 19 [place] Calcium [Mass/Vol] 9.7 mg/dL 8.6 - 10. 4 mg/dL [place] Chloride [Moles/Vol] 102 mmol/L 98 - 10 7 mmol/L [place] CO2 [Moles/Vol] 23 mmol/L 20 - 31 mmol/L [place] Creatinine [Mass/Vol] 0.58 mg/dL 0.5 - 0.9 mg/dL [place] GFR >60 >60 mL/min [place] GFR Non- >60 >60 mL/min [place] GFR/1.73 sq M predicted among non-blacks MDRD (S/P/Bld) [Vol rate/Area] NOT REPORTED [place] GFR/1.73 sq M predicted among non-blacks MDRD (S/P/Bld) [Vol rate/Area] [place] Comment on above: Average GFR for 20-2 9 years old: 116 mL/min/1.73sq m Chronic Kidney Disease: <60 mL/min/1.73sq m Kidney failure: <15 mL/min/1.73sq m eGFR calculated using average adult body mass. Additional eGFR calculator available at: http://www.[employer]/multiple_crcl_2012.htm Glucose [Mass/Vol] 115 mg/dL High 70 - 99 mg/dL [place] Interpretation and review of laboratory results Abnormal [place] Potassium [Moles/Vol] 3.9 mmol/L 3.7 - 5.3 mmol/L [place] Sodium [Moles/Vol] 138 mmol/L 135 - 144 mmol/L [place] Urea nitrogen [Mass/Vol] 11 mg/dL 6 - 20 mg/dL [place] CBC Auto Differentialon 12-0 Basophils (Bld) [#/Vol] 0.00 10*3/uL [place] Basophils/100 WBC (Bld) 0 % 0 - 2 % [place] Differential Type YES [place] Eosinophils (Bld) [#/Vol] 0.10 10*3/uL [place] Eosinophils/100 WBC (Bld) 2 % 0 - 5 % [place] Erythrocyte distribution width (RBC) [Ratio] 12.7 % 12.1 - 15.2 % [place] Hematocrit (Bld) [Volume fraction] 46.4 % High 36 - 46 % [place] Hemoglobin (Bld) [Mass/Vol] 15.5 g/dL 12 - 16 g/dL [place] Interpretation and review of laboratory results Abnormal [place] Lymphocytes (Bld) [#/Vol] 1.30 10*3/uL [place] Lymphocytes/100 WBC (Bld) 20 % 15 - 40 % [place] MCH (RBC) [Entitic mass] 29.7 pg 26 - 34 pg [place] MCHC (RBC) [Mass/Vol] 33.4 g/dL 31 - 3 7 g/dL [place] MCV (RBC) [Entitic vol] 89.0 fL 80 - 100 fL [place] Monocytes (Bld) [#/Vol] 0.50 10*3/uL [place] Monocytes/100 WBC (Bld) 8 % 4 - 8 % [place] Platelet mean volume (Bld) [Entitic vol] NOT REPORTED 6 - 12 fL [place] Platelets (Bld) [#/Vol] NOT REPORTED [place] Platelets (Bld) [#/Vol] 194 10*3/uL [place] RBC (Bld) [#/Vol] 5.22 10*6/uL High 4 - 5.2 m/uL [place] RBC morphology finding Nom (Bld) NOT REPORTED [place] Segmented neutrophils/100 WBC (Bld) 70 % 47 - 75 % [place] Segs Absolute 4.40 [place] WBC (Bld) [#/Vol] 6.4 10*3/uL [place] WBC (Bld) [#/Vol] NOT REPORTED per 100 WBC [place] WBC Morphology NOT REPORTED [place] D-Dimer, Quantitativeon 12- D-Dimer, Quant 0.21 [place] Comment on above: Elevated levels of [...] HCG Qualitative, Serumon hCG Qual Negative NEGATIVE [place] Comment on above: Specimens with hCG l evels near the threshold of the test (25 mIU/mL) may give a negative or indeterminate result. In such cases, another test should be performed with a new specimen in 48-72 hours. If early is suspected clinically in this setting, correlation with quantitative serum b-hCG level is suggested. [employer] has confirmed the use of plasma for this test. This has not been cleared or approved by the U.S. Food and Drug Administration. The FDA has determined that such clearance is not necessary. Otheron 04-06-2019 Immature granulocytes (Bld) [#/Vol] NOT REPORTED [place] XR CHEST STANDARD (2 VW)on 06-07-2018 Negative chest. [place] EXAM: XR CHEST (2 VW ) HISTORY: Reason for exam:->SOB COMPARISON: Chest 12/05/2018. TECHNIQUE: 2 views chest FINDINGS: Heart size normal. Lungs clear. Bony thorax and upper abdomen normal. [facility] Incoming Radiant Results From [facility] - 04/06/2019 2:50 PM EST EXAM: XR CHEST (2 VW) HISTORY: Reason for exam:->SOB COMPARISON: Chest 12/05/2018. TECHNIQUE: 2 views chest FINDINGS: Heart size normal. Lungs clear. Bony thorax and upper abdomen normal. IMPRESSION: Negative chest. [facility] Comprehensive Metabolic Pane ammon 11-12-2017 Alanine aminotransferase (ALT) 22 U/L Normal 14-65 [facility] Comment on above: This test result [...] ####Unless otherwise noted, all testing performed by [address] [id number]: [id number] Director: Diego Hamilton M.D. Albumin 3.7 g/dL Normal 3.2-5.2 [facility] Comment on above: Performed By: #### C MET ####Unless otherwise noted, all testing performed by [address] [phone]: [id number] Director: Diego Hamilton M.D. Alkaline phosphatase (ALP) 99 U/L Normal 40-140 [facility] Comment on above: Performed By: #### C MET ####Unless otherwise noted, all testing performed by [address] [phone]: [id number] Director: Diego Hamilton M.D. Aspartate aminotransferase (AST) 11 U/L Normal 0-45 [facility] Comment on above: This test result [...] ####Unless otherwise noted, all testing performed by [place] [id number]: [id number] Director: Diego Hamilton M.D. Bilirubin (total) 0.2 mg/dL Low 0.3-1.2 [facility] Comment on above: Performed By: #### C MET ####Unless otherwise noted, all testing performed by [place] [id number]: [id number] Director: Diego Hamilton M.D. Calcium 9.0 mg/dL Normal 8.4-10.2 [facility] Comment on above: Performed By: #### C MET ####Unless otherwise noted, all testing performed by [place] [phone]: [id number] Director: Diego Hamilton M.D. Chloride 109 mmol/L High 98-108 [facility] Comment on above: Performed By: #### C MET ####Unless otherwise noted, all testing performed by [place] [phone]: [id number] Director: Diego Hamilton M.D. CO2 28 mmol/L Normal 21-32 [facility] Comment on above: Performed By: #### C MET ####Unless otherwise noted, all testing performed by [address] [phone]: [id number] Director: Diego Hamilton M.D. Creatinine 0.94 mg/dL Normal 0.40-1.10 [facility] Comment on above: Performed By: #### C MET ####Unless otherwise noted, all testing performed by [address] [phone]: [id number] Director: Diego Hamilton M.D. eGFR (black) mL/min/{1.73_m2} Normal [facility] Comment on above: GFR Calc Result Comment: Afri can Marshallese GFR Calc Performed By: #### C MET ####Unless otherwise noted, all testing performed by [place] [phone]: [id number] Director: Diego Hamilton M.D. eGFR (non-black) mL/min/{1.73_m2} Normal [facility] Comment on above: Non- GFR Calc eGFR [...] ####Unless otherwise noted, all testing performed by [address] [phone]: [id number] Director: Diego Hamilton M.D. Glucose mass conc 102 mg/dL High 70-99 [facility] Comment on above: This test result [...] ####Unless otherwise noted, all testing performed by [address] [phone]: [id number] Director: Diego Hamilton M.D. Interpretation and review of laboratory results Abnormal Invalid Interpretation Code [facility] Potassium molar conc 4.0 mmol/L Normal 3.5-5.1 [facility] Comment on above: Performed By: #### C MET ####Unless otherwise noted, all testing performed by [address] [phone]: [id number] Director: Diego Hamilton M.D. Protein 7.0 g/dL Normal 6.0-8.0 [facility] Comment on above: Performed By: #### C MET ####Unless otherwise noted, all testing performed by [address] [phone]: [id number] Director: Diego Hamilton M.D. Sodium 143 mmol/L Normal 135-145 [facility] Comment on above: Performed By: #### C MET ####Unless otherwise noted, all testing performed by [address] [phone]: [id number] Director: Diego Hamilton M.D. Urea nitrogen 17 mg/dL Normal 8-25 [facility] Comment on above: Performed By: #### C MET ####Unless otherwise noted, all testing performed by [address] [phone]: [id number] Director: Diego Hamilton M.D. Preg test, Urine Qualon 11-02 Preg Test, Urine Qual Negative Invalid Interpretation Code Negative [facility] Comment on above: Rapid test [...] ( test) Ql (U) Negative Normal Negative [facility] Comment on above: Result Comment: Rapi d [...] ####Unless otherwise noted, all testing performed by [address] [phone]: [id number] Director: Diego Hamilton M.D. Urinalysison 11-12-2017 Bilirubin, Urine Negative Normal NEG;NEGATIV E [facility] Comment on above: Performed By: #### P REGUR, UA ####Unless otherwise noted, all testing performed by [place] [phone]: [id number] Director: Diego Hamilton M.D. Blood, Urine Negative Normal NEG;NEGATIV E [facility] Comment on above: Performed By: #### P REGUR, UA ####Unless otherwise noted, all testing performed by [address]CLIA: [id number] Director: Diego Hamilton M.D. Character Clear Normal [facility] Comment on above: Performed By: #### P REGUR, UA ####Unless otherwise noted, all testing performed by [address]CLIA: [id number] Director: Diego Hamilton M.D. Interpretation and review of laboratory results Abnormal Invalid Interpretation Code [facility] Nitrite, Urine Negative Normal NEG;NEGATIV E [facility] Comment on above: Performed By: #### P REGUR, UA ####Unless otherwise noted, all testing performed by [place] [phone]: [id number] Director: Diego Hamilton M.D. Protein, Urine 30 mg/dL High < 30 [facility] Comment on above: Performed By: #### P REGUR, UA ####Unless otherwise noted, all testing performed by [place] [phone]: [id number] Director: Diego Hamilton M.D. RBCs, Urine < 1 Invalid Interpretation Code 0 - 5 /HPF [facility] Specific [place] 1.024 1 Invalid Interpretation Code 1.003 - 1.029 [facility] Squamous Epithelial 4 /HPF Invalid Interpretation Code 0 - 40 [facility] Urine, color Yellow Normal [facility] Comment on above: Performed By: #### P REGUR, UA ####Unless otherwise noted, all testing performed by [address] [phone]: [id number] Director: Diego Hamilton M.D. Urine, glucose presence Negative Normal NEG; NEGATIV E [facility] Comment on above: Performed By: #### P REGUR, UA ####Unless otherwise noted, all testing performed by [place] [id number]: [id number] Director: Diego Hamilton M.D. Urine, ketones presence Negative Invalid Interpretation Code NEG;NEGATIV E mg/dL [facility] Urine, leukocyte esterase presence Negative Invalid Interpretation Code Negative [facility] Urine, pH 5.0 [pH] Normal 4.5-8.0 [facility] Comment on above: Performed By: #### P REGUR, UA ####Unless otherwise noted, all testing performed by [address] [phone]: [id number] Director: Diego Hamilton M.D. Urobilinogen, Urine < 2.0 Normal <2 [facility] Comment on above: Performed By: #### P REGUR, UA ####Unless otherwise noted, all testing performed by [address] [phone]: [id number] Director: Diego Hamilton M.D. WBCs, Urine 1 /HPF Invalid Interpretation Code 0 - 5 [facility] Urinalysis, Routineon 2017 Ketone,Urine Negative Normal NEG;NEGATIV E [facility] Comment on above: Performed By: #### P REGUR, UA ####Unless otherwise noted, all testing performed by [place] [phone]: [id number] Director: Diego Hamilton M.D. Leuk.Esterase,Urine Negative Normal Negative [facility] Comment on above: Performed By: #### P REGUR, UA ####Unless otherwise noted, all testing performed by [place] [phone]: [id number] Director: Diego Hamilton M.D. Specific [place],Urine 1.024 Normal 1.003-1.029 [facility] Comment on above: Performed By: #### P REGUR, UA ####Unless otherwise noted, all testing performed by [place] [phone]: [id number] Director: Diego Hamilton M.D. Squamous Epithelial 4 /HPF Normal 0-40 [facility] Comment on above: Performed By: #### P REGUR, UA ####Unless otherwise noted, all testing performed by [place] [phone]: [id number] Director: Diego Hamilton M.D. Urine, erythrocytes in sediment by area /[HPF] Normal 0-5 [facility] Comment on above: Performed By: #### P REGUR, UA ####Unless otherwise noted, all testing performed by [address] [phone]: [id number] Director: Diego Hamilton M.D. WBC,Urine 1 /HPF Normal 0-5 [facility] Comment on above: Performed By: #### P REGUR, UA ####Unless otherwise noted, all testing performed by [address] [phone]: [id number] Director: Diego Hamilton M.D. CBC and Differentialon 11-11 Basophils Auto #/vol (Bld) 0.0 K/mcL Invalid Interpretation Code 0 - 0.2 [facility] Basophils/100 WBC Auto (Bld) 0.3 % Normal [facility] Comment on above: Performed By: #### C BCDIF, EXCEP, LIPASE ####Unless otherwise noted, all testing performed by [address] [phone]: [id number] Director: Diego Hamilton M.D. Eosinophils 0.1 K/mcL Invalid Interpretation Code 0 - 0.5 [facility] Eosinophils/100 leukocytes 0.6 % Normal [facility] Comment on above: Performed By: #### C BCDIF, EXCEP, LIPASE ####Unless otherwise noted, all testing performed by [address] [phone]: [id number] Director: Diego Hamilton M.D. Erythrocyte distribution width Auto Ratio (RBC) 13.2 % Normal 10.0-14.4 [facility] Comment on above: Performed By: #### C BCDIF, EXCEP, LIPASE ####Unless otherwise noted, all testing performed by [address] [phone]: [id number] Director: Diego Hamilton M.D. Erythrocytes (RBC) 5.13 M/mcL High 3.7 - 5.0 [facility] Hematocrit (HCT) 47.0 % High 34.4-44.8 [facility] Comment on above: Performed By: #### C BCDIF, EXCEP, LIPASE ####Unless otherwise noted, all testing performed by [address] [phone]: [id number] Director: Diego Hamilton M.D. Hemoglobin mass conc (Bld) 15.3 g/dL Normal 11.6-15.4 [facility] Comment on above: Performed By: #### C BCDIF, EXCEP, LIPASE ####Unless otherwise noted, all testing performed by [address] [phone]: [id number] Director: Diego Hamilton M.D. Lymphocytes 1.5 K/mcL Invalid Interpretation Code 1.0 - 3.7 [facility] Lymphocytes/100 leukocytes 12.1 % Normal [facility] Comment on above: Performed By: #### C BCDIF, EXCEP, LIPASE ####Unless otherwise noted, all testing performed by [address] [phone]: [id number] Director: Diego Hamilton M.D. MCH 29.8 pg Normal 27.9-33.9 [facility] Comment on above: Performed By: #### C BCDIF, EXCEP, LIPASE ####Unless otherwise noted, all testing performed by [address] [phone]: [id number] Director: Diego Hamilton M.D. MCHC mass conc (RBC) 32.6 g/dL Low 33.1-35.1 [facility] Comment on above: Performed By: #### C BCDIF, EXCEP, LIPASE ####Unless otherwise noted, all testing performed by [address] [phone]: [id number] Director: Diego Hamilton M.D. MCV 91.5 fL Normal 82.6-98.9 [facility] Comment on above: Performed By: #### C BCDIF, EXCEP, LIPASE ####Unless otherwise noted, all testing performed by [address] [phone]: [id number] Director: Diego Hamilton M.D. Monocytes 0.6 K/mcL Invalid Interpretation Code 0.1 - 0.6 [facility] Monocytes/100 leukocytes 5.1 % Normal [facility] Comment on above: Performed By: #### C BCDIF, EXCEP, LIPASE ####Unless otherwise noted, all testing performed by [address] [phone]: [id number] Director: Diego Hamilton M.D. Neutrophils 10.0 K/mcL High 1.2 - 6.9 [facility] Platelet mean volume (PMV) 11.1 fL High 7.0-10.6 [facility] Comment on above: Performed By: #### C BCDIF, EXCEP, LIPASE ####Unless otherwise noted, all testing performed by [address] [phone]: [id number] Director: Diego Hamilton M.D. Platelets 235 K/mcL Invalid Interpretation Code 162 - 402 [facility] Segmented Neut 81.9 % Invalid Interpretation Code [facility] WBC (Leukocytes) 12.2 K/mcL High 3.4 - 10.6 [facility] CBC with Diffon 11-11-2017 Basophils Auto #/vol (Bld) 0.0 K/mcL Normal 0-0.2 [facility] Comment on above: Performed By: #### C BCDIF, EXCEP, LIPASE ####Unless otherwise noted, all testing performed by [address] [phone]: [id number] Director: Diego Hamilton M.D. Eosinophils 0.1 K/mcL Normal 0-0.5 [facility] Comment on above: Performed By: #### C BCDIF, EXCEP, LIPASE ####Unless otherwise noted, all testing performed by [address] [phone]: [id number] Director: Diego Hamilton M.D. Erythrocytes (RBC) 5.13 M/mcL High 3.7-5.0 [facility] Comment on above: Performed By: #### C BCDIF, EXCEP, LIPASE ####Unless otherwise noted, all testing performed by [address] [phone]: [id number] Director: Diego Hamilotn M.D. Lymphocytes 1.5 K/mcL Normal 1.0-3.7 [facility] Comment on above: Performed By: #### C BCDIF, EXCEP, LIPASE ####Unless otherwise noted, all testing performed by [place] [phone]: [id number] Director: Diego Hamilton M.D. Monocytes 0.6 K/mcL Normal 0.1-0.6 [facility] Comment on above: Performed By: #### C BCDIF, EXCEP, LIPASE ####Unless otherwise noted, all testing performed by [place] [phone]: [id number] Director: Diego Hamilton M.D. Neutrophils 10.0 K/mcL High 1.2-6.9 [facility] Comment on above: Performed By: #### C BCDIF, EXCEP, LIPASE ####Unless otherwise noted, all testing performed by [place] [phone]: [id number] Director: Diego Hamilton M.D. Platelets 235 K/mcL Normal 162-402 [facility] Comment on above: Performed By: #### C BCDIF, EXCEP, LIPASE ####Unless otherwise noted, all testing performed by [phone]: [id number] Director: Diego Hamilton M.D. Segmented Neut % 81.9 % Normal [facility] Comment on above: Performed By: #### C BCDIF, EXCEP, LIPASE ####Unless otherwise noted, all testing performed by [place] [phone]: [id number] Director: Diego Hamilton M.D. WBC (Leukocytes) 12.2 K/mcL High 3.4-10.6 [facility] Comment on above: Performed By: #### C BCDIF, EXCEP, LIPASE ####Unless otherwise noted, all testing performed by [address] [phone]: [id number] Director: Diego Hamilton M.D. Exception Noticeon 8 Exception Notice Complete Metabolic Panel cancelled due to hemolysis. Will be redrawn. Normal [facility] Comment on above: Performed By: #### C BCDIF, EXCEP, LIPASE ####Unless otherwise noted, all testing performed by [address] [id number]: [id number] Director: Diego Hamilton M.D. Lipaseon 11-11-2017 Interpretation and review of laboratory results Abnormal Invalid Interpretation Code [facility] Lipase 52 U/L Low 73-393 [facility] Comment on above: Performed By: #### C BCDIF, EXCEP, LIPASE ####Unless otherwise noted, all testing performed by [address] [id number]: [id number] Director: Diego Hamilton M.D. US TRANSVAGINAL WITH [...] amount of free fluid, likely physiologic. Normal [facility] Vital Signs Date Time Vital Sign Value Performing Clinician Dylan manley 12-19-2022 10:04-0400 Body mass index (BMI) [Ratio] 39.51 kg/m2 Matthew Tafoya MD Work Phone: [facility] 12-19-2022 10:04-0400 Body temperature 98.29 [degF] Matthew Tafoya MD Work Phone: [facility] 12-19-2022 10:04-0400 Body weight 104.42 kg Matthew Tafoya MD Work Phone: [facility] 12-19-2022 10:04-0400 Diastolic blood pressure 82 mm[Hg] Matthew Tafoya MD Work Phone: [facility] 12-19-2022 10:04-0400 Heart rate 106 /min Matthew Tafoya MD Work Phone: [facility] 12-19-2022 10:04-0400 Respiratory rate 16 /min Matthew [facility]afoya MD [facility] Phone: [facility] 12-19-2022 10:04-0400 SaO2% (BldA) [Mass fraction] 95 % Matthew Tafoya MD Work Phone: [facility] 12-19-2022 10:04-0400 Systolic blood pressure 119 mm[Hg] Matthew Tafoya MD Work Phone: [facility] 12-06-2022 13:24-0400 Body temperature 98.42 [degF] Graham Choe [facility] 12-06-2022 13:24-0400 Diastolic blood pressure 75 mm[Hg] Graham Choe [facility] 12-06-2022 13:24-0400 Heart rate 95 /min Graham Choe [facility] 12-06-2022 13:24-0400 Mean blood pressure 95 mm[Hg] Graham Choe [facility] 12-06-2022 13:24-0400 Respiratory rate 18 /min rGaham Choe [facility] 12-06-2022 13:24-0400 SaO2% (BldA) [Mass fraction] 96 % Graham Choe [facility] 12-06-2022 13:24-0400 Systolic blood pressure 136 mm[Hg] Graham Choe [facility] 06-16-2022 01:37-0500 Body height 162.6 cm Hoang Santos MD Work Phone: [facility] [employer] 06-16-2022 01:37-0500 Body mass index (BMI) [Ratio] 39.94 kg/m2 Hoang Santos MD Work Phone: [facility] 06-16-2022 01:37-0500 Body temperature 98.01 [degF] Hoang Santos MD Work Phone: [facility] 06-16-2022 01:37-0500 Body weight 105.55 kg Hoang Santos MD Work Phone: [facility] [employer] 06-16-2022 01:37-0500 Diastolic blood pressure 77 mm[Hg] Hoang Santos MD Work Phone: [facility] 06-16-2022 01:37-0500 Heart rate 88 /min Hoang Santos MD Work Phone: [facility] 06-16-2022 01:37-0500 Respiratory rate 16 /min Hoang Santos MD Work Phone: [facility] 06-16-2022 01:37-0500 SaO2% (BldA) [Mass fraction] 98 % Hoang Santos MD Work Phone: [facility] [employer] 06-16-2022 01:37-0500 Systolic blood pressure 122 mm[Hg] Hoang Santos MD Work Phone: [facility] [employer] [facility] 03-13-2022 09:30-0500 Body height 162.6 cm Bea Jacobs MD Work Phone: [facility] [employer] [facility] 03-13-2022 09:30-0500 Body mass index (BMI) [Ratio] 37.81 kg/m2 Bea Jacobs MD Work Phone: [facility] [employer] [facility] 03-13-2022 09:30-0500 Body temperature 98.2 [degF] Bea Jacobs MD Work Phone: [facility] [employer] [facility] 03-13-2022 09:30-0500 Body weight 99.93 kg Bea Jacobs MD Work Phone: [facility] [employer] [facility] 03-13-2022 09:30-0500 Diastolic blood pressure 72 mm[Hg] Bea Jacobs MD Work Phone: [facility] [employer] [facility] 03-13-2022 09:30-0500 Heart rate 76 /min Bea Jacobs MD Work Phone: [facility] [employer] [facility] 03-13-2022 09:30-0500 Respiratory rate 18 /min Bea Jacobs MD Work Phone: [facility] [employer] [facility] 03-13-2022 09:30-0500 SaO2% (BldA) [Mass fraction] 96 % Bea Jacobs MD Work Phone: [facility] [employer] [facility] 03-13-2022 09:30-0500 Systolic blood pressure 116 mm[Hg] Bea Jacobs MD Work Phone: [facility] [employer] [facility] 11-29-2021 14:37-0400 Diastolic blood pressure 69 mm[Hg] Bea Jacobs MD Work Phone: [facility] [employer] [facility] 11-29-2021 14:37-0400 Heart rate 80 /min Bea Jacobs MD Work Phone: [facility] [employer] [facility] 11-29-2021 14:37-0400 SaO2% (BldA) [Mass fraction] 96 % Bea Jacobs MD Work Phone: [facility] 11-29-2021 14:37-0400 Systolic blood pressure 112 mm[Hg] Bea Jacobs MD Work Phone: [facility] 11-29-2021 14:36-0400 Body height 162.6 cm Bea Jacobs MD Work Phone: [facility] 11-29-2021 14:36-0400 Body mass index (BMI) [Ratio] 36.39 kg/m2 Bea Jacobs MD Work Phone: [facility] 11-29-2021 14:36-0400 Body temperature 99.5 [degF] Bea Jacobs MD Work Phone: [facility] 11-29-2021 14:36-0400 Body weight 96.16 kg Bea Jacobs MD Work Phone: [facility] 11-29-2021 14:36-0400 Respiratory rate 18 /min Bea Jacobs MD Work Phone: [facility] 05-22-2021 14:29-0500 Body mass index (BMI) [Ratio] 32.89 kg/m2 Hoang Santos MD Work Phone: [facility] 05-22-2021 14:29-0500 Body temperature 99.5 [degF] Hoang Santos MD Work Phone: [facility] 05-22-2021 14:29-0500 Body weight 92.44 kg Hoang Santos MD Work Phone: [facility] 05-22-2021 14:29-0500 Diastolic blood pressure 61 mm[Hg] Hoang Santos MD Work Phone: [facility] 05-22-2021 14:29-0500 Heart rate 97 /min Hoang Santos MD Work Phone: [facility] 05-22-2021 14:29-0500 Respiratory rate 18 /min Hoang Santos MD Work Phone: [facility] 05-22-2021 14:29-0500 SaO2% (BldA) [Mass fraction] 96 % Hoang Santos MD Work Phone: [facility] 05-22-2021 14:29-0500 Systolic blood pressure 117 mm[Hg] Hoang Santos MD Work Phone: [facility] 04-12-2021 18:20-0500 Body temperature 98.6 [degF] Dana Redman MD Work Phone: [facility] 04-12-2021 18:20-0500 Diastolic blood pressure 75 mm[Hg] Dana Redman MD Work Phone: [facility] 04-12-2021 18:20-0500 Heart rate 92 /min Dana Redman MD Work Phone: [facility] 04-12-2021 18:20-0500 Respiratory rate 20 /min Dana Redman MD Work Phone: [facility] 04-12-2021 18:20-0500 SaO2% (BldA) [Mass fraction] 96 % Dana Redman MD Work Phone: [facility] 04-12-2021 18:20-0500 Systolic blood pressure 118 mm[Hg] Dana Redman MD Work Phone: [facility] 04-12-2021 18:18-0500 Body height 167.6 cm Dana Redman MD Work Phone: [facility] 04-12-2021 18:18-0500 Body mass index (BMI) [Ratio] 32.28 kg/m2 Dana Redman MD Work Phone: [facility] 04-12-2021 18:18-0500 Body weight 90.72 kg Dana Redman MD Work Phone: [facility] 02-10-2021 17:39-0400 Body temperature 99.1 [degF] Braydon May MD Work Phone: [facility] Work Phone: 02-10-2021 17:27-0400 Body height 162.6 cm Braydon May MD Work Phone: [facility] Work Phone: 02-10-2021 17:27-0400 Body mass index (BMI) [Ratio] 37.75 kg/m2 Braydon May MD Work Phone: [facility] Work Phone: 02-10-2021 17:27-0400 Body weight 99.75 kg Braydon May MD Work Phone: [facility] Work Phone: 02-10-2021 17:27-0400 Diastolic blood pressure 84 mm[Hg] Braydon May MD Work Phone: [facility] Work Phone: 02-10-2021 17:27-0400 Heart rate 83 /min Braydon May MD Work Phone: [facility] Work Phone: 02-10-2021 17:27-0400 Respiratory rate 20 /min Braydon May MD Work Phone: [facility] Work Phone: 02-10-2021 17:27-0400 SaO2% (BldA) [Mass fraction] 95 % Braydon May MD Work Phone: [facility] Work Phone: 02-10-2021 17:27-0400 Systolic blood pressure 128 mm[Hg] Braydon May MD Work Phone: [facility] Work Phone: 12-10-2020 19:54-0400 Diastolic blood pressure 63 mm[Hg] Bea Jacobs MD Work Phone: [facility] Work Phone: 12-10-2020 19:54-0400 SaO2% (BldA) [Mass fraction] 97 % Bea Jacobs MD Work Phone: [facility] Work Phone: 12-10-2020 19:54-0400 Systolic blood pressure 111 mm[Hg] Bea Jacobs MD Work Phone: [facility] Work Phone: 08-01-2020 18:44-0400 BMI (Body Mass Index) 33.47 kg/m2 Bea Reynaldo [facility] [employer] Work Phone: 08-01-2020 18:44-0400 Body Temperature 97.9 [degF] [facility] [employer] Work Phone: 08-01-2020 18:44-0400 Body weight 88.45 kg [facility] Work Phone: 08-01-2020 18:44-0400 BP Diastolic 72 mm[Hg] Bea Jacobs [facility] [employer] Work Phone: 08-01-2020 18:44-0400 BP Systolic 127 mm[Hg] [facility] [employer] Work Phone: 08-01-2020 18:44-0400 Height 162.6 cm Bea Jacobs [facility] [employer] Work Phone: 08-01-2020 18:44-0400 Pulse (Heart Rate) 93 /min [facility] Work Phone: 08-01-2020 18:44-0400 Pulse Oximetry 99 % Bea Jacobs [facility] Work Phone: 08-01-2020 18:44-0400 Respiratory Rate 16 /min [facility] [employer] Work Phone: 01-04-2020 12:33-0400 BMI (Body Mass Index) 32.96 kg/m2 [facility] 01-04-2020 12:33-0400 Body Temperature 98.1 [degF] [facility] 01-04-2020 12:33-0400 Body weight 87.09 kg [facility] 01-04-2020 12:33-0400 BP Diastolic 63 mm[Hg] [facility] 01-04-2020 12:33-0400 BP Systolic 115 mm[Hg] [facility] 01-04-2020 12:33-0400 Height 162.6 cm [facility] 01-04-2020 12:33-0400 Pulse (Heart Rate) 83 /min [facility] 01-04-2020 12:33-0400 Pulse Oximetry 97 % [facility] 12-23-2019 21:12-0400 BMI (Body Mass Index) 32.96 kg/m2 [facility] [place] 12-23-2019 21:12-0400 Body Temperature 98.71 [degF] [facility], [place] 12-23-2019 21:12-0400 Body weight 87.09 kg [facility], [place] 12-23-2019 21:12-0400 BP Diastolic 69 mm[Hg] [facility] 12-23-2019 21:12-0400 BP Systolic 129 mm[Hg] [facility] 12-23-2019 21:12-0400 Pulse (Heart Rate) 102 /min [facility], [place] 12-23-2019 21:12-0400 Pulse Oximetry 100 % [facility], [place] 12-23-2019 21:12-0400 Respiratory Rate 18 /min [facility] 10-22-2019 12:21-0400 BMI (Body Mass Index) 33.3 kg/m2 Arin Sargent [facility], [place] 10-22-2019 12:21-0400 Body Temperature 98.8 [degF] Arin Celeste [facility] , [place] 10-22-2019 12:21-0400 Body weight 88 kg Arin Celeste [facility] , [place] 10-22-2019 12:21-0400 BP Diastolic 67 mm[Hg] Arin Celeste [facility] , [place] 10-22-2019 12:21-0400 BP Systolic 113 mm[Hg] Arin Carter [facility] , [place] 10-22-2019 12:21-0400 Height 162.6 cm Arin Celeste [facility] , [place] 10-22-2019 12:21-0400 Pulse (Heart Rate) 77 /min Arin Emma [facility], [place] 10-22-2019 12:21-0400 Pulse Oximetry 98 % Arin Carter [facility] , [place] 10-22-2019 12:21-0400 Respiratory Rate 18 /min Arin Emma Celeste [place], [place] 04-06-2019 13:49-0500 Pulse Oximetry 98 % Bea Jacobs [facility], [place] 04-06-2019 13:39-0500 BP Diastolic 92 mm[Hg] [facility], [place] 04-06-2019 13:39-0500 BP Systolic 119 mm[Hg] [facility], [place] 04-06-2019 13:37-0500 Body Temperature 97.59 [degF] Bea Jacobs [place], [place] 04-06-2019 13:37-0500 Body weight 84.82 kg [facility] [place] 04-06-2019 13:37-0500 Pulse (Heart Rate) 77 /min Bea Jacobs [place], [place] 04-06-2019 13:37-0500 Respiratory Rate 16 /min [place], [place] Encounters Encounter Date Encounter Type Care Provider Facility Start: 05-30-2023 End: 05-30-2023 ambulatory YANI YOGI Not Available Start: 05-15-2023 End: 05-15-2023 ambulatory YANI YOGI Not Available Start: 04-01-2023 ambulatory Redd Dueñas acility:[facility] Start: 04-01-2023 End: 04-01-2023 Emergency department patient visit BEA JACOBS [facility] Start: 02-13-2023 End: 02-14-2023 ambulatory [facility] Start: 12-22-2022 End: 12-22-2022 Emergency department patient visit BEA JACOBS [facility] Start: 12-19-2022 End: 12-19-2022 Emergency department patient visit Matthew Tafoya MD Work Phone: [facility] ED Comment on above: Acute cystitis witho ut hematuria (Primary Dx); Vaginal yeast infection Start: 12-06-2022 End: 12-06-2022 Emergency department patient visit Graham Choe [facility] Start: 12-06-2022 End: 12-06-2022 Emergency department patient visit Graham Choe [facility] Start: 06-16-2022 End: 06-16-2022 Emergency department patient visit [facility] Start: 06-16-2022 End: 06-16-2022 Emergency department patient visit Hoang Santos MD Work Phone: [facility] ED Comment on above: Nausea and vomiting, unspecified vomiting type (Primary Dx); Intractable headache, unspecified chronicity pattern, unspecified headache type Start: 04-12-2022 End: 04-12-2022 Emergency department patient visit [facility] Start: 03-13-2022 End: 03-13-2022 Emergency department patient [...] eyelid (Primary Dx) Start: 10-24-[address] AKINS [facility] Facility : Start: 10-17-[address] DOCTOR FRANCISCO Facility [...] Facility:[facility] Start: 09-08-2021 End: 09-08-[address] YANI CALIX Facility:[facility] Start: 09-05-2021 End: 09-05-2021 ambulatory [...] YANI CALIX Facility :[facility]1 Start: 05-31-2021 End: 06-01-2021 [facility] Start: 05-22-2021 End: 05-22-2021 Emergency department patient [...] 04-01-2021 End: 04-01-2021 Emergency department patient visit [facility] Start: 03-29-2021 End: 03-29-2021 Emergency department patient visit [facility] Start: 03-25-2021 End: 03-25-2021 Emergency department patient visit RENE ACUÑA [facility] Start: 02-10-2021 End: 02-10-2021 Emergency department [...] End: 08-07-2020 Evaluation and management of inpatient ZAHEERISAIASCHAUNCEY JACOBS [facility] Start: 08-01-2020 End: 08-02-2020 Emergency department patient visit Bea Jacobs Work Phone: [facility] ED Comment on above: Suicidal thoughts (P rimary Dx); Depression with suicidal ideation Start: 05-22-2020 End: 05-26-2020 Patient encounter procedure JUANITO HERNANDEZ [facility] Start: 03-22-2020 End: 03-26-2020 Patient encounter procedure JUANITO HERNANDEZ [facility] Start: 01-18-2020 End: 01-18-2020 Subsequent hospital visit by physician Perla LOR[facility] Comment on above: Palpitations Start: 01-04-2020 End: 01-04-2020 Patient encounter procedure JUANITO HERNANDEZ [facility] Start: 01-04-2020 End: 01-04-2020 Office outpatient visit 25 minutes Juanito Hernandez Work Phone: [facility] Comment on above: Anxious depression ( Primary Dx); Smoker; Weight gain; Fatigue, unspecified type; Screening cholesterol level Start: 12-23-2019 End: 12-23-2019 Emergency department patient visit Hoang Santos Work Phone: [facility] ED Comment on above: Bronchitis (Primary Dx) Start: 11-22-2019 End: 11-22-2019 Patient encounter procedure [facility] Start: 11-12-2019 End: 11-12-2019 Patient encounter procedure [facility] Start: 11-01-2019 End: 11-01-2019 Subsequent hospital visit [...] 11-12-2017 Emergency department patient visit Aicha Méndez Facility:[place] Start: 11-11-2017 End: 11-11-2017 Ambulatory Aicha Méndez Work Phone: [facility] Start: 01-20-2017 Ambulatory GAYE JOSUE [facility] Start: 01-16-2017 Ambulatory GAYE Cast [facility] Procedures Date Procedure Procedure Detail Performing Clinician [...] Work Phone: Start: 08-01-2020 Assay of ethanol Zaheer Jacobs Work Phone: Start: 08-01-2020 COVID-19, RAPID [...] malign ant neoplasm of cervix Pap smear [facility] Start: 12-03-2022 Influenza vaccination Flu vaccine (# 1) [facility] Start: 03-29-2022 Screening for Chlamy deisy trachomatis [facility] Start: 01-03-2022 Influenza vaccination Flu vaccine (# 1) [facility] Start: 12-03-2021 Influenza vaccination Flu vaccine (# 1) [facility] Start: 05-31-2021 End: 05-31-2021 Patient encounter procedure 05/31/2021 Routine Perinatology [facility] Start: 01-17-2021 Depression Monitoring Depression Sapphire valle [facility] Start: 01-03-2021 Influenza vaccination Flu vaccine (# 1) [facility] Start: 04-04-2020 End: 01-03-2021 Complete blood count with white cell differential, manual CBC and Differential Lab Routine Fatigue, unspecified type Expected: 04/04/2020 (Approximate), Expires: 01/03/2021 [facility] Comment on above: Expected: 04/04/2020 (Approximate), Expires: 01/03/2021 Start: 04-04-2020 End: 01-03-2021 Comprehensive metabolic 2000 panel Comprehensive Metabolic Panel Lab Routine Fatigue, unspecified type Expected: 04/04/2020 (Approximate), Expires: 01/03/2021 [facility] Comment on above: Expected: 04/04/2020 (Approximate), Expires: 01/03/2021 Start: 04-04-2020 End: 01-03-2021 Magnesium [Mass/Vol] Magnesium Level Lab Routine Fatigue, unspecified type Expected: 04/04/2020 (Approximate), Expires: 01/03/2021 [facility] Comment on above: Expected: 04/04/2020 (Approximate), Expires: 01/03/2021 Start: 02-18-2020 End: 02-18-2020 Office Visit 02/18/2020 Office Visit Family Medicine Perla Rm, DO [address] [place] [phone] [facility] Start: 02-15-2020 End: 02-15-2020 Office Visit 02/15/2020 Office Visit Primary Care Juanito Hernandez MD [address] [place] [id number] [facility] Start: 01-04-2020 Influenza vaccination [place], [place] Start: 01-04-2020 Influenza vaccinatio n given Sequential Influenza Vaccine (#1) [facility] Start: 12-12-2019 DTaP/Tdap/Td vaccine (7 - Td or Tdap) DTaP/Tdap/Td vaccine (7 - Td or Tdap) [facility] Start: 07-16-2019 Screening for Chlamy deisy trachomatis Chlamydia Screening [facility] Start: 01-03-2019 Influenza vaccination Flu vaccine (# 1) [place], [place] Start: 2018 Cervical cancer screen Cervical canc er screen [place] Start: 2018 Screening for malign ant neoplasm of cervix [facility] Start: 2016 DTaP/Tdap/Td vaccine (1 - Tdap) DTaP/Tdap/Td vaccine (1 - Tdap) [facility] Start: 08-15-2015 Hepatitis C screening Hepatitis C sc reen [facility] Start: 2013 Chlamydia screen Chlamydia screen [place], [place] Start: 2013 COVID-19 Vaccine (1) COVID-19 Vaccin e (1) [facility] Work Phone: Start: 2013 Screening for Chlamy deisy trachomatis Chlamydia screen [facility] Start: 2012 HIV screen HIV screen [place], [place] Start: 2012 HIV screening HIV screen [facility] Start: 03-05-2010 Varicella vaccine (2 of 2 - 2-dose childhood series) Varicella vaccine (2 of 2 - 2-dose childhood series) [facility] Start: 2009 COVID-19 Vaccine (1) COVID-19 Vaccin e (1) [facility] Start: 2009 Depression Monitoring Depression [facility] Start: 2008 DTaP/Tdap/Td vaccine (1 - Tdap) DTaP/Tdap/Td vaccine (1 - Tdap) [place] Start: 2008 HPV vaccine (1 - 2-d ose series) HPV vaccine (1 - 2-dose series) [facility] Start: 2008 HPV vaccine (1 - Fem man 2-dose series) HPV vaccine (1 - Female 2-dose series) [place] Start: 2008 Vaccination for [place] n papillomavirus HPV Vaccines (1 - 2-dose series) [facility] Start: 08-15-2003 Pneumococcal 0-64 ye ars Vaccine (1 - PCV) Pneumococcal 0-64 years Vaccine (1 - PCV) [facility] Start: 08-15-2003 Pneumococcal 0-64 ye ars Vaccine (1 of 1 - PPSV23) Pneumococcal 0-64 years Vaccine (1 of 1 - PPSV23) [place] Start: 08-15-2003 Pneumococcal 0-64 ye ars Vaccine (1 of 2 - PPSV23) Pneumococcal 0-64 years Vaccine (1 of 2 - PPSV23) [facility] Start: 2002 COVID-19 Vaccine (1) COVID-19 Vaccin e (1) [facility] Start: 2000 History and physical examination, annual for health maintenance Wellness Visit [facility] Start: 1998 Varicella Vaccine (1 of 2 - 2-dose childhood series) Varicella Vaccine (1 of 2 - 2-dose childhood series) [facility] Start: 02-13-1998 COVID-19 Vaccine (#1) COVID-19 Vacci ne (#1) [facility] Start: 1997 Depression screening using PHQ-9 (Patient Health Questionnaire 9) score Depression Screening (PHQ9) [facility] Start: 1997 Hepatitis C screening Hepatitis C sc reen [facility] Start: 1997 Screening for malign ant neoplasm of cervix Pap Smear [facility] Start: 1997 Tetanus vaccination Tetanus: Every 1 0yrs [facility] End: 01-03-2021 Cholesterol [Mass/Vol] Cholesterol, Total Lab Routine Screening cholesterol level 1 Occurrences starting 01/04/2020 until 01/03/2021 [facility] Comment on above: 1 Occurrences starti ng 01/04/2020 until 01/03/2021 End: 10-22-2019 COVID-19 COVID-19 Lab Routine One Time for 1 Occurrences starting 10/22/2019 until 10/22/2019 [place] Comment on above: One Time for 1 Occur rences starting 10/22/2019 until 10/22/2019 End: 11-01-2019 Covid-19 Ambulatory Covid-19 Ambulatory Lab Routine Exposure To Covid-19 Virus Cough in adult patient 1 Occurrences starting 11/01/2019 until 11/01/2019 [facility] [place] Comment on above: 1 Occurrences starti ng 11/01/2019 until 11/01/2019 Covid-19 Ambulatory Covid-19 Amb ulatory Lab Routine Exposure to COVID-19 virus Cough in adult patient 11/01/2019 11:25 AM EDT [facility] [place] End: 02-10-2021 Culture, Urine Culture, Urine Microbiology Routine Once for 1 Occurrences starting 02/10/2021 until 02/10/2021 [facility] Work Phone: Comment on above: Once for 1 Occurrenc es starting 02/10/2021 until 02/10/2021 Culture, Urine Culture, Urine Microbiology Routine 02/10/2021 5:41 PM EDT [facility] Work Phone: End: 12-19-2022 Culture, Urine [facility] Comment on above: Once for 1 Occurrenc es starting 12/19/2022 until 12/19/2022 End: 10-22-2019 MDI Treatment MDI Treatment Respiratory Care Routine One Time for 1 Occurrences starting 10/22/2019 until 10/22/2019 [facility] Comment on above: One Time for 1 Occur rences starting 10/22/2019 until 10/22/2019 MDI Treatment MDI Treatment Respiratory Care Routine Every 6hr As Needed until discontinued starting 10/22/2019 [facility] Comment on above: Every 6hr As Needed until discontinued starting 10/22/2019 End: 01-03-2021 TSH Qn TSH with Reflex Free T4 Lab Routine Weight gain Fatigue, unspecified type 1 Occurrences starting 01/04/2020 until 01/03/2021 [facility] Comment on above: 1 Occurrences starti ng 01/04/2020 until 01/03/2021 Immunizations Immunization Date Immunization Notes Care Provider Nupur west NEGATED: Highlighted row has not occurred!06-13-2020 influenza virus vaccine, unspecified formulation Graham Дмитрий [facility] Payers Date Payer Category Payer Medicaid [id number] 2019 Unknown [id number] 2018 Medicaid [id number] 2018 Unknown [id number] 2018 Unknown [id number] 2015 Unknown [id number] 2014 Unknown [id number] 2014 Unknown [employer]IC [employer] [id number] 2014-Present Indemnity [id number] 1.2.840.528469.1.13.239.2.7.3.6 [id number] 1997 Unknown [id number] 2.16.840.1.844041.3.579.2.903 1997 Unknown [id number] 2.16.840.1.178826.3.579.2.900 1997 Unknown [id number] 2.16.840.1.722510.3.579.2.176 1997 Unknown [id number] 2.16.840.1.140559.3.579.2.903 1997 Unknown [id number] 2.16.840.1.803405.3.579.2.903 1997 Unknown [id number] 2.16.840.1.578235.3.579.2.903 1997 Unknown [id number] 2.16.840.1.955956.3.579.2.903 1997 Unknown [id number] 2.16.840.1.317448.3.579.2.903 1997 Unknown [id number] 2.16.840.1.555366.3.579.2.175 1997 Unknown [id number] 2.16.840.1.956309.3.579.2.593 1997 Unknown [id number] 2.16.840.1.843227.3.579.2.593 1997 Unknown [id number] 2.16.840.1.865080.3.579.2.593 1997 Unknown [id number] 2.16.840.1.482643.3.579.2.593 1997 Unknown [id number] 2.16.840.1.159082.3.579.2.593 1997 Unknown [id number] 2.16.840.1.109706.3.579.2.593 1997 Unknown [id number] 2.16.840.1.465405.3.579.2.593 1997 Unknown [id number] 2.16.840.1.461676.3.579.2.593 1997 Unknown [id number] 2.16.840.1.733105.3.579.2.593 1997 Unknown [id number] 2.16.840.1.248842.3.579.2.593 1997 Unknown [id number] 2.16.840.1.878446.3.579.2.593 1997 Unknown [id number] 2.16.840.1.171110.3.579.2.593 1997 Unknown [id number] 2.16.840.1.531706.3.579.2.593 1997 Unknown [id number] 2.16.840.1.394560.3.579.2.593 1997 Unknown [id number] 2.16.840.1.164487.3.579.2.593 1997 Unknown [id number] 2.16.840.1.145477.3.579.2.593 1997 Unknown [id number] 2.16.840.1.895238.3.579.2.593 1997 Unknown [id number] 2.16840.1.401553.3.579.2.593 1997 Unknown [id number] 2.16.840.1.049485.3.579.2.593 1997 Unknown [id number] 2.16.840.1.001451.3.579.2.593 1997 Unknown [id number] 2.16.840.1.731717.3.579.2.593 1997 Unknown [id number] 2.16.840.1.949025.3.579.2.593 1997 Unknown [id number] 2.16.840.1.068706.3.579.2.593 1997 Unknown [id number] 2.16.840.1.883878.3.579.2.727 1997 Unknown [id number] 2.16.840.1.922489.3.579.2.174 1997 Unknown [id number] 2.16.840.1.207895.3.579.2.174 1997 Unknown [id number] 2.16.840.1.982511.3.579.2.174 1997 Unknown [id number] 2.16.840.1.107535.3.579.2.174 1997 Unknown [id number] 2.16.840.1.453928.3.579.2.174 1997 Unknown [id number] 2.16.840.1.873854.3.579.2.174 1997 Unknown [id number] 2.16.840.1.384446.3.579.2.1259 1997 Unknown [id number] 2.16.840.1.781343.3.579.2.1259 1959 Self-pay [id number] 1959 Self-pay 1959 Unknown [id number] 1.2.840.880138.1.13.239.2.7.3.6 49590.315 Social History Date Type Detail Facility Tobacco smoking stat [facility] Unknown if ever smoked [facility] Start: 1995 Sex Assigned At Not on file [facility] Start: 04-06-2019 End: 11-29-2021 Tobacco smoking status TXIS Current every day smoker [place], [place] History of tobacco use Cigarette Smoker M [place] Start: 04-06-2019 End: 06-16-2022 Cigarettes smoked current (pack per day) - Reported [place] Start: 04-06-2019 End: 11-29-2021 Alcohol intake Ex-drinker (finding) [facility] Start: 04-06-2019 End: 12-19-2022 History SDOH Alcohol Frequency 1 [place] Exposure to SARS-CoV -2 (event) Unable to assess [place] Start: 11-01-2019 End: 06-16-2022 Tobacco use and exposure Never used [place] Exposure to SARS-CoV -2 (event) Yes [place] Start: 01-04-2020 End: 06-16-2022 Alcohol intake Current drinker of alcohol (finding) [facility] Start: 12-05-2018 Alcohol Comment occassional [facility] Start: 11-19-2021 End: 06-16-2022 Exposure to SARS-CoV-2 (event) Not sure [facility] Start: 11-29-2021 Tobacco Comment 5cigs/day 2 [employer] Phone: Start: 06-16-2022 Tobacco smoking stat us TXIS Ex-smoker [employer] History of tobacco use Current smoker [employer] Phone: Start: 06-16-2022 Alcohol Comment occ. Some tonight [facility] [employer] Phone: Start: 08-08-2020 Tobacco smoking status Heavy t obacco smoker (finding) [facility] Sex Assigned At Female [facility] Functional Status Date Assessment Result Facility 12-06-2022 Functional Status N/A [facility] Clinical Notes 12-10-2020 to 12-06-2022 Note [...] services (911 in the [place] Call the [facility] health and human services helpline (211 in the [place] Call or text a suicide hotline to speak with a trained counselor. The following suicide hotlines are available in the [place]: ?0-592-185-TALK ( or 369 in the [place] ?3-441-NREQHUU ( ). ?Text 271282. This is the Crisis Text Line in the [place] ? . This is a hotline for [place] speakers. ? . This is a hotline for TTY users. ?0-474-1-U-YASHIRA ( ). This is a hotline for lesbian, delgadillo, bisexual, transgender, or questioning youth. ?For a list of hotlines in [place], visit suicide.org/hotlines/internation al/zqspez-bwesbnb-vaqapssp.html Contact a crisis center or a local [...] to anyone or being with other people. ?Zxof-oi-dvsp conversation is best to help them understand [...] physical and a mental health checkup. Take sdax-hvi-fewunkf and prescription medicines only as told by [...] National Suicide Prevention Lifeline: www.suicidepreventionlifeline.or g Hopeline: www.hopeline.Sopsy.com [place] Foundation for Suicide Prevention: www.afsp.org The Yashira Project (for lesbian, delgadillo, bisexual, transgender, or questioning youth): www.thetrevorproject.org National [place] of Mental Health: www.nimh.nih.gov/health/topics/s uicide-prevention Suicide Prevention Resources: afsp.org/sbanvau-wwqxarwkbd-twbt urces Contact a health care provider if: [...] provider. Document Revised: 11/15/2021 Document Reviewed: 08/30/2021 [employer] Patient Education 2022 [employer]. Follow Up Care 12/06/2022 13:21:39 With:[facility] Address:Unknown When:12/09/2022 16:28:40 Comments:Follow safety plan. Return to the emergency department with any worsening symptoms. With:GAYE JOSUE Address: [address] [id number] [facility] (1) When:12/09/2022 16:28:22 Comments:Call the office of [...] Repeat liver function testing in 1 month. [facility] 12-06-2022 Evaluation + Plan note Extrac rayray from: Title:ED Note Author:Graham Choe DO Date: Situational stress (F43.9: R eaction to severe stress, unspecified) Orders: Automated Diff CBC w/ Auto Diff Comprehensive Metabolic Panel Drug Screen Urine ECG 12 Lead Adult eGFR Ethanol Level U Beta Hcg Qual [facility]07-28-2022 History of Present illness Narrative* Edelmira Jacobs RN - 11/29/2021 2:40 PM EDT Home med list reviewed with patient. [facility] [employer] Phone: 1(592) 824-122808-08-2021 History of Present illness Narrative* Perla Cunningham RN - 12/10/2020 8:28 PM EDT Discharge instructions given. Pt sent home with 1 daniel. Aware to cone picker prescription. All questions answered. documented in this [employer]biscuits Phone: evaluation note* Diagnosis Symptoms of dehydration- Primary Nausea vomiting and diarrhea Nausea with vomiting documented in this encounter [employer] Phone: evaluation note* Diagnosis Threatened miscarriage in early - Primary Threatened , unspecified as to episode of care documented in this encounter [employer] Phone: evaluation note* Diagnosis Depression during in first trimester- Primary Dehydration documented in this encounter [employer] Phone: evalbpswji note* Diagnosis COVID-19 virus infection- Primary Second trimester documented in this encounter [employer] Phone: evalgtejxw note* Diagnosis Hordeolum externum of right lower eyelid- Primary Hordeolum externum documented in this encounter [facility] Phone: evalatkjid note* Diagnosis Acute midline low back pain without sciatica- Primary [facility]: [facility]* Diagnosis Nausea and vomiting, unspecified vomiting type- Primary Intractable headache, unspecified chronicity pattern, unspecified headache type documented in this encounter [facility]: [facility]* Diagnosis Acute cystitis without hematuria- Primary Acute cystitis Vaginal yeast infection Candidiasis of vulva and vagina documented in this encounter [facility] course Narrative No data available for this section [facility]* Attachments The following attachments cannot be sent through Care Everywhere. * Nausea and Vomiting (Zambian) * Diarrhea (Zambian) * Oral Rehydration (Zambian) documented in this [facility] [employer] Phone: spital Discharge instructions* Attachments The following attachments cannot be sent through Care Everywhere. * Miscarriage: Threatened (Zambian) documented in this [facility] [employer] Phone: spital Discharge instructions* Attachments The following attachments cannot be sent through Care Everywhere. * Dehydration (Zambian) documented in this [facility] Phone: spital Discharge instructions* Attachments The following attachments cannot be sent through Care Everywhere. * Coronavirus Disease (COVID-19): General Info (Zambian) documented in this [facility] Phone: spital Discharge instructions* Attachments The following attachments cannot be sent through Care Everywhere. * Styes and Chalazia (Zambian) documented in this [facility] [email or web address] Phone: Hospital Discharge instructions* Attachments The following attachments cannot be sent through Care Everywhere. * Back Pain (Zambian) * Back: Stretches: Exercises (Zambian) [facility] Phone: Hospital Discharge instructions* Attachments The following attachments cannot be sent through Care Everywhere. * Headache (Zambian) [facility] [employer] Phone: Hospital Discharge instructions* Attachments The following attachments cannot be sent through Care Everywhere. * Vaginal Yeast Infection ([place]ian) documented in this [facility] No data available for this section [facility] Summary Purpose Family History No [...] FoundDocuments on File Type Date Recorded Patient Supervisor [employer] an[employer] Advance Directives and Living Will Power of Poultry Raiser Documents on File Type Date Recorded Patient Supervisor [employer] an[employer] ACP-Advance Directive ACP-Power of Poultry Raiser Documents on File Type Date Recorded Patient Supervisor [employer] an[employer] Advance Directives and Livin g [...] be sent through Care Everywhere. * Sinusitis (Zambian) * Sinus Rinse (Zambian) * Bronchitis (Zambian) documented in this encounter* Attachments The following attachments cannot be sent through Care Everywhere. * Smoking: Stopping (Zambian) * Bronchitis (Zambian) * Coronavirus Disease (COVID-19): General Info (Zambian) documented in this encounter* Attachments The following attachments cannot be sent through Care Everywhere. * Bronchitis (Z[place]ian) documented in this encounter Assessments Diagnosis Bronchitis- [...] section and content) DATE CREATED AUTHOR 10/29/2017 [facility] DATE CREATED AUTHOR AUTHOR'S ORGANIZ ATION 11/26/2017 [facility] DATE CREATED AUTHOR AUTHOR'S ORGANIZ ATION 01/04/2020 [facility] DATE CREATED AUTHOR AUTHOR'S ORGANIZ ATION 05/26/2020 [facility] DATE CREATED AUTHOR AUTHOR'S ORGANIZ ATION 08/07/2020 [facility] DATE CREATED AUTHOR AUTHOR'S ORGANIZ ATION 04/05/2021 [facility] DATE CREATED AUTHOR AUTHOR'S ORGANIZ ATION 04/08/2021 [facility] DATE CREATED AUTHOR AUTHOR'S ORGANIZ ATION 07/14/2021 [facility] DATE CREATED AUTHOR AUTHOR'S ORGANIZ ATION 04/27/2022 [facility] DATE CREATED AUTHOR AUTHOR'S ORGANIZ ATION 12/07/2022 [facility] DATE CREATED AUTHOR AUTHOR'S ORGANIZ ATION 04/03/2023 [facility] DATE CREATED AUTHOR AUTHOR'S ORGANIZ ATION 05/30/2023 [facility] DATE CREATED AUTHOR AUTHOR'S ORGANIZ ATION 05/31/2023 [facility] d[facility] Specialists EPIC Reason for Visit (unrecogniz ed section and [...] over 1 Hours, ONCE, On 12/10/20 at 1914, For 1 dose 1914 (New Bag - Prov ider: Ricci Clancy RN)2020 (Stopped - Provider: Perla Cunningham RN) ondansetron (ZOFRAN) injection 4 mg (COMPLETED) 4 mg, Intravenous, ONCE, On 12/10/20 at 1914, For 1 dose 1915 (Given - Provid [...] Veronica 04/12/21 at 1830, For 1 dose 1826 (New Bag - Prov ider: Albina Garibay RN)1926 (Stopped - Provider: Rosy Stack RN) Scheduled Medication Order 03/11/2022 03/12/2022 03/13/2022 dexamethasone (PF) (DECADRON) injection 10 mg (COMPLETED) [...] ONCE, 1 dose, On 06/16/22 at 0200 0225 (Given - Provid er: Deloris Pinto [...] Care Teams (unrecognized sec tion and content) Pediatric Social Worker Relationship Specialty Start Date End Date Gaye Josue, FURNITURE MAKER - TEAMCENTER CONSULTANT [address] [place] [address] PCP - General Family Nurse Practitioner 02/10/21 Pediatric Social Worker Relationship Specialty Start Date End Date Gaye Josue FURNITURE MAKER - TEAMCENTER CONSULTANT [address] [place] [address] PCP - General Family Nurse Practitioner 02/10/21 Pediatric Social Worker Relationship Specialty Start Date End Date Gaye Josue, FURNITURE MAKER - TEAMCENTER CONSULTANT [address] [place] [address] PCP - General Family Nurse Practitioner 02/10/21 Pediatric Social Worker Relationship Specialty Start Date End Date Gaye Josue FURNITURE MAKER - TEAMCENTER CONSULTANT [address] [place] [address] PCP - General Family Nurse Practitioner 02/10/21 [...] BE BASED ON THE PRIMARY CLINICAL RECORDS. [facility]Top[facility]. provides no warranty or guarantee of the accuracy or completeness of information in this document.
[2023-06-20 08:19] LABS: Basophils Percent Auto 0.3 % (0.2-2.0); Eosinophils Absolute Auto 0.1 10^3/uL (0.0-0.7); Eosinophils Percent Auto 0.9 % (0.9-7.0); Hematocrit 37.3 % (36.0-48.0); Hemoglobin 11.8 g/dL (12.0-16.0); Immature Granulocytes Abs Auto 0.03 10^3/uL (0.00-0.03); Immature Granulocytes Pct Auto 0.3 % (0.0-0.5); Lymphocytes Absolute Auto 1.3 10^3/uL (1.2-3.8); Lymphocytes Percent Auto 14.5 % (20.5-60.0); Mean Corpuscular HGB Conc 31.6 g/dL (29.9-35.2); Mean Corpuscular Hemoglobin 27.6 pg (26.7-34.0); Mean Corpuscular Volume 87.1 fL (81.0-99.0); Mean Platelet Volume 11.7 fL (9.5-13.5); Monocytes Absolute Auto 0.4 10^3/uL (0.3-0.8); Monocytes Percent Auto 4.6 % (1.7-12.0); Neutrophils Absolute Auto 7.3 10^3/uL (1.4-6.5); Neutrophils Percent Auto 79.4 % (43.0-75.0); Platelet Count 222 10^3/uL (150-450); Red Blood Count 4.28 10^6/uL (4.20-5.40); Red Cell Distribution Width 12.7 % (11.0-15.0); White Blood Count 9.1 10^3/uL (4.0-11.0)
[2023-06-20 08:41] LABS: Estimated Average Glucose 160 mg/dL; Glycohemoglobin A1C 7.2 % (4.5-6.2)
[2023-06-21 06:08] LABS: HBsAg Screen Negative (Negative); HCV Ab Non Reactive (Non Reactive); HIV Ab/p24 Ag Screen Non Reactive (Non Reactive); Rubella Antibodies, IgG 1.96 index (Immune >0.99)
[2023-06-21 10:09] LABS: Rapid Plasma Reagin, Quant Non Reactive titer (NonRea<1:1)
== END 2023-06-20 07:19 | disposition home or self-care (01) ==
LOC: LAB 07:20
PROVIDERS: Visit Provider Obstetrics & Gynecology
DX: N92.6 Irregular menstruation, unspecified (principal); Z36.0 Encounter for antenatal screening for chromosomal anomalies
CPT/HCPCS: 36415; 83036; 85025; 86592; 86762; 86803; 86850; 86900; 86901; 87086; 87340; 87389

== ENCOUNTER 2023-10-13 18:19 | Observation (INO) | payer OTHER, SELFPAY ==
--- NOTE | 2023-10-13 | US_ITS ---
[address] [address] Patient Name: RIRI DEMPSEY MRN: [id number] date: 1995 Sex: F Assigned Patient Location: [facility] Current Patient Location: [facility] Accession/Order Number: [id number] Exam Date: 10/13/2023 19:40 Report Date: 10/13/2023 21:46 At the request of: YANI CALIX Procedure: US OB >= 14 wk fetus add gest Examination:US OB placenta, US OB >= 14 wk fetus add gest INDICATION:twin , abd pain EDC 01/10/24 COMPARISON:05/30/2023 TECHNIQUE:Real-time limited sonography was performed. FINDINGS:2 live intrauterine gestations are present. presentation for each fetus is cephalic. The lie is variable. The placenta is grade 0 and is anterior in location. The placenta is grossly unremarkable within the limits of this exam.. The heartbeat for BABY A is 160 bpm. The heartbeat for BABY B is 171 bpm. US/US OB >= 14 wk fetus add gest IMPRESSION: 2 live intrauterine gestations. presentation is cephalic for each fetus. The placenta is grossly unremarkable based on this limited ultrasound. Electronically authenticated by: ABBY KUNZ Date: 10/13/2023 21:46
--- NOTE | 2023-10-13 19:29 | US_ITS ---
[address] [address] Patient Name: RIRI DEMPSEY MRN: [id number] date: 1995 Sex: F Assigned Patient Location: [facility] Current Patient Location: [facility] Accession/Order Number: [id number] Exam Date: 10/13/2023 19:40 Report Date: 10/13/2023 21:46 At the request of: YANI CALIX Procedure: US OB placenta Examination:US OB placenta, US OB >= 14 wk fetus add gest INDICATION:twin , abd pain EDC 01/10/24 COMPARISON:05/30/2023 TECHNIQUE:Real-time limited sonography was performed. FINDINGS:2 live intrauterine gestations are present. presentation for each fetus is cephalic. The lie is variable. The placenta is grade 0 and is anterior in location. The placenta is grossly unremarkable within the limits of this exam.. The heartbeat for BABY A is 160 bpm. The heartbeat for BABY B is 171 bpm. US/US OB placenta IMPRESSION: 2 live intrauterine gestations. presentation is cephalic for each fetus. The placenta is grossly unremarkable based on this limited ultrasound. Electronically authenticated by: ABBY KUNZ Date: 10/13/2023 21:46
--- NOTE | 2023-10-13 19:29 | US_ITS ---
[address] [address] Patient Name: RIRI DEMPSEY MRN: [id number] date: 1995 Sex: F Assigned Patient Location: [facility] Current Patient Location: Accession/Order Number: [id number] Exam Date: 10/13/2023 19:40 Report Date: 10/13/2023 21:42 At the request of: YANI CALIX Procedure: US OB cervical length EXAM: US OB cervical length HISTORY: abdominal pain, twin COMPARISON: None. TECHNIQUE: Transvaginal grayscale imaging of the cervix FINDINGS: The cervix measures 4.2 cm in length and is closed. There is an intrauterine in the cephalic presentation. US/US OB cervical length IMPRESSION: Cervix length measures 4.2 cm. Electronically authenticated by: MAURO TIAN Date: 10/13/2023 21:42
[2023-10-13 20:37] VITALS: BP 130/60; PULSE 100; TEMP 36.3
== END 2023-10-13 21:03 | disposition home or self-care (01) ==
PROVIDERS: Admitting Provider Obstetrics & Gynecology; Visit Provider Obstetrics & Gynecology
DX: O26.892 Other specified pregnancy related conditions, second trimester (principal); R10.9 Unspecified abdominal pain; R10.2 Pelvic and perineal pain; M79.659 Pain in unspecified thigh; O30.002 Twin pregnancy, unspecified number of placenta and unspecified number of amniotic sacs, second trimester; Z3A.27 27 weeks gestation of pregnancy
CPT/HCPCS: 76810; 76815; 76817; G0378; G0379

== ENCOUNTER 2023-10-31 17:30 | Outpatient (OUT) | payer OTHER, SELFPAY ==
--- OUTSIDE RECORDS SUMMARY | 2023-10-31 17:37 | XMS_ITS | CCD ---
Author Organization [facility] Care Team Providers Care Forest Aide Name Role Phone GAYE JOSUE Unavailable Unavailable GAYE JOSUE Unavailable Unavailable Unavailable Unavailable Unavailable Honey, Aicha Maryjo Unavailable Unavailable Honey, [place] Maryjo Unavailable Unavailable Unavailable Primary Care Provider UnavailJuanito Rodriges Primary Care Provider JUANITO HERNANDEZ Attending U navailable HUY, MONICATH ELIZAIAH Primary Care U navailable Celengjaylen, Vijeth Rathnarajaiah Primary Care Prov ider Radha Carney Unavailable Perla Rm Primary Care Provider HUY, JAMESJETH RATHNARAJAIAH Primary Care U navailable LIZA, OLIVER LEIGH Referring Unavailable LIZA OLIVER LEIGH Admitting Unavailable CELENGERI, VIJETH RATHNARAJAIAH Primary Care U navailable LIZA, OLIVER LEIGH Admitting Unavailable SRINGERI, VIJETH RATHNARAJAIAH Primary Care U navailable LIZA, OLIVER LEIGH Referring Unavailable SRINGERI, VIJETH RATHNARAJAIAH Primary Care U navailable BEA JACOBS Referring Unavailable PERLA RM Primary Care Unavailable ZEINAB MIRAMONTES Attending Unavailable ZEINAB MIRAMONTES Admitting Unavailable Unavailable Primary Care Provider Gaye Madden APRN, CNP Primary Care Provider GAYE JOSUE Primary Care Unavailable GAYE JOSUE Primary Care Unavailable PERNELL SCRUGGS Attending UnavailDAVID Noyola Referring Unavailable LIAT, GAYE [facility] [employer] - [facility], Gaye Primary Care Provider MISC, DR AKINS [...] Unavailable MISC, DR AKINS Primary Care Unavailable TEJAS ZAFAR Consulting Unavailable YOGI, DR LOMELI Admitting Unavailable [...] DR LOMELI Admitting Unavailable YOGI, DR LOMELI Consulting Unavailable Liat Muniz CNP, Gaye Primary Care Provider GAYE JOSUE Primary Care Physician Graham Choe Attending Unavailable GAYE JOSUE Primary Care Unavailable Liat Muniz CNP Gaye Primary Care Provider Unavailable Primary Care Provider UnavailJacobo Doyle DO Primary Care Provider LOY ASHER Referring Unavailable JACOBO JOHNSON Primary Care Unavailable DANA MCDONOUGH Attending Unavailable LOY ASHER Referring Unavailable JACOBO JOHNSON Primary Care Unavailable ROSA ROCHA Attending Unavailable LOY ASHER Referring Unavailable JACOBO JOHNSON Primary Care Unavailable LOY ASHER Referring Unavailable JACOBO JOHNSON Primary Care Unavailable TRISH ZIMMERMAN Attending Unavailable GAYE JOSUE Primary Care Unavailable MATTHEW TAFOYA Attending Unavailable LIAT, GAYE Primary Care Unavailable BEA JACOBS Attending Unavailable LIAT, GAYE Primary Care Unavailable BEA JACOBS Attending Unavailable JACOBO JOHNSON Primary Care Unavailable HOANG SANTOS Attending Unavailable JACOBO JOHNSON Referring Unavailable JACOBO JOHNSON Primary Care Unavailable GAYE JOSUE Referring Unavailable TRENTANY, GAYE Primary Care Unavailable GAYE JOSUE M Primary Care Unavailable MARY AGUIAR Attending U LOY Saeed Attending Unavailable LOY ASHER Attending Unavailable LOY ASHER Attending Unavailable Redd Velazquez Attending Unavailab Redd Higginbotham Admitting Unavailab dedra NO FAMILY, PHYSICIAN Primary Care Unavailable Allergies Allergy Classification Reported Allergen(s) Allergy Type Date of Onset Reaction(s) Facility (1 source) No Known Medication Allergies; Translations: [No Known Medication Allergies] Propensity to adverse reactions (disorder) [facility] Repository Medications Current Medications Medication Drug Class(es) [...] 108 (90 Base) MCG/ACT inhaler 2 puff aspirin 81 mg delayed release oral tablet (2 sources) Platelet Aggregation Inhibitor, Nonsteroidal Anti-inflammatory Drug Start: 07-29-2023 take 1 tablet by mouth in the morning aspirin 81 mg Indications: Type 2 diabetes mellitus affecting in second trimester, antepartum , Twin , dichorionic/diamni otic, second trimester Take 1 tablet (81 mg total) by mouth in the morning. 100 tablet 10 07/29/2023 Active brexpiprazole 0.5 mg oral tablet (2 sources) Atypical Antipsychotic take 1 tablet by mouth once daily brexpiprazole (REXULTI) 0.5 MG TABS tablet Take 1 tablet by mouth daily 0 Active buPROPion hydrochloride 75 mg oral tablet (10 sources) Aminoketone Start: 07-09-2023 buPROPion (WELLBUTRIN) 75 mg tablet TAKE 1 TABLET BY MOUTH DAILY for 14 days, then TAKE 1 TABLET BY MOUTH EVERY OTHER DAY for 7 (SEVEN) doses then stop 0 07/09/2023 Active take 1 tablet by mark th once daily in the morning buPROPion (WELLBUTRIN XL) 150 MG extende d release tablet Take 1 tablet by mouth [...] spasms 15 tablet 0 03/13/2022 03/23/2022 Active DEXCOM G7 SENSOR device (2 sources) Start: 07-07-2023 DEXCOM G7 SENSOR device reapply every TEN days to check blood glucose 0 07/07/2023 Active diphenhydrAMINE hydrochloride 25 mg oral capsule (6 sources) Histamine-1 Receptor Antagonist take 1 capsule by mouth every six hours as needed diphenhydrAMINE (BENADRYL) 25 mg capsule Take 1 capsule (25 mg total) by mouth every 6 (six) hours as needed for itching. 0 Active End: 11-29-2021 take 1 tablet by mouth [...] for Pain 120 tablet 0 03/13/2022 Active 3 ml insulin glargine 100 unt/ml pen injector (2 sources) Insulin Analog Start: 06-11-2023 LANTUS SOLOSTAR U-100 INSULIN 100 unit/mL (3 mL) insulin pen Inject 10 Units into the skin nightly 0 06/11/2023 Active lamoTRIgine 50 mg oral tablet (3 sources) Mood Stabilizer, Anti-epileptic Agent take 50 mg by mouth once daily lamoTRIgine (LAMICTAL PO) Take 50 mg by mouth daily 0 Active osmotic 24 hr metFORMIN hydrochloride 500 mg extended release oral tablet (2 sources) Biguanide take 1 tablet by mouth once daily at breakfast metFORMIN (FORTAMET) 500 MG (OSM) 24 hr tablet Take 1 tablet (500 mg total) by mouth daily with breakfast. 0 Active metroNIDAZOLE 500 mg oral tablet (2 sources) Nitroimidazole Antimicrobial Start: 06-30-2023 metroNIDAZOLE (FLAGYL) 500 mg tablet 2 ml ondansetron 2 mg/ml injection (8 [...] days 10 tablet 0 10/22/2019 10/27/2019 Active vs325-wqdf-turji acid ( 19) 29 mg iron- 1 mg tablet,chewable (2 sources) ux674-kjaq-swpbl acid ( 19) 29 mg iron- 1 mg tablet,chewable Chew 1 tablet and swallow in the morning. 0 Active propranolol hydrochloride 20 mg oral tablet (1 source) beta-Adrenergic Shai Start: 021 take 1 tablet by mouth three times daily as needed propranolol (INDERAL) 20 MG tablet Take 1 tablet by mouth 3 times daily as needed (palpitations) 30 tablet 2 05/22/2020 Active sertraline 25 mg oral tablet (10 sources) Serotonin Reuptake Inhibitor take 1 tablet by mouth in the morning sertraline (ZOLOFT) 25 mg tablet Take 1 tablet (25 mg total) by mouth in the morning. 0 Active take 2 tablets by mouth once corry ly sertraline (ZOLOFT) 100 MG tablet Take 2 [...] (LIST CLEANUP) clonazePAM 0.5 mg oral tablet (12 sources) Benzodiazepine Start: 06-16-2020 End: 08-01-2020 take [...] 01/18/2020 02/01/2020 [facility] needed for anxiety clonazePAM (KlonoPIN) 1 mg tablet Take 1 tablet by mouth 2 times daily as needed for Anxiety for up to 30 days. Max Daily Amount 2 mg 0 Active take 2 tablets by mo [facility] twice daily as needed clonazePAM (KLONOPIN) 1 [...] mark th every four hours as needed Thtjjdkjlmshovu-QXWA-NY (DAYQUIL PO) Don e 1 tablet by [...] Active Problems Problem Classification Problem Date Documented Da te Episodic/Chronic Abdominal pain (3 sources) Unspecified abdominal pain; Translations: [UNSPECIFIED ABDOMINAL PAIN] Onset: 2 Episodic Abdominal pain (2 sources) Pelvic and perineal pain; Translations: [Pelvic and perineal pain] Onset: 7 Acute bronchitis (1 source) Acute bronchitis; Translations: [Acute bronchitis, unspecified organism] Episodic Adjustment disorders (1 source) Stress and adjustment reaction; Translations: [Reaction to severe stress, unspecified] Onset: 3 Chronic Anxiety disorders (20 sources) Mixed anxiety and depressive disorder; Translations: [Anxiety] Onset: 0 01-04-2020 Chronic Cardiac dysrhythmias (1 source) Palpitations; Translations: [Palpitations] Episodic Chronic obstructive pulmonary disease and bronchiectasis (2 sources) Bronchitis; Translations: [Bronchitis] Episodic Diabetes or abnormal glucose tolerance complicating ; childbirth; or the puerperium (9 sources) and type 2 diabetes mellitus; Translations: [Pre-existing type 2 diabetes mellitus, in , second trimester] Onset: 4 07-14-2023 Chronic Disorders of lipid metabolism (2 sources) Hyperlipidemia, unspecified; Translations: [Hyperlipidemia, unspecified] Onset: 3 Chronic Esophageal disorders (1 source) Esophageal disorders; Translations: [Gastro-esophageal reflux disease with esophagitis, with bleeding] Onset: 4 Essential hypertension (2 sources) Essential (primary) hypertension; Translations: [Essential (primary) hypertension] Onset: 3 Chronic Fluid and electrolyte disorders (1 source) Dehydration; Translations: [Dehydration] Episodic Gastrointestinal hemorrhage (1 source) Gastrointestinal hemorrhage, unspecified; Translations: [Gastrointestinal hemorrhage, unspecified] Onset: 4 Episodic Genitourinary symptoms and ill-defined conditions (3 sources) Personal history of urinary (tract) infections; Translations: [Hesitancy of micturition] Onset: 2 Episodic Headache; including migraine (1 source) Headache; Translations: [Intractable headache, unspecified chronicity pattern, unspecified headache type] Episodic Hemorrhage during ; abruptio placenta; placenta previa (1 source) Threatened miscarriage in first trimester; Translations: [Threatened ] Episodic Inflammation; infection of eye (except that caused by tuberculosis or sexually transmitteddisease) (1 source) Hordeolum externum of lower eyelid of right eye; Translations: [Hordeolum externum right lower eyelid] Episodic Malaise and fatigue (2 sources) Fatigue; Translations: [Fatigue, unspecified type] Onset: 0 01-04-2020 Episodic Mood disorders (20 sources) Depressive disorder; Translations: [Major depressive disorder, single episode, unspecified] Onset: 1 08-01-2020 Chronic Mycoses (1 source) Candidiasis of vagina; Translations: [Vaginal yeast infection] Episodic Nausea and vomiting (4 sources) Nausea, vomiting and diarrhea; Translations: [Nausea with vomiting, unspecified] Onset: 4 Episodic Other complications of (1 source) Maternal obesity complicating , childbirth and the puerperium, antepartum; Translations: [Obesity complicating , second trimester] 07-29-2023 Chronic Other complications of (1 source) Obesity complicating , unspecified trimester; Translations: [Obesity complicating , unspecified trimester] Onset: 4 Chronic Other complications of (1 source) Obesity complicating , second trimester; Translations: [Obesity complicating , second trimester] Onset: 4 Chronic Other complications of (1 source) Depressive disorder; Translations: [Other mental disorders complicating , first trimester] Episodic Other complications of (2 sources) Bipolar disorder; Translations: [Other mental disorders complicating , second trimester] 07-29-2023 Episodic Other complications of (1 source) Maternal tobacco use; Translations: [Smoking (tobacco) complicating , second trimester] 07-29-2023 Episodic Other complications of (1 source) Smoking (tobacco) complicating , second trimester; Translations: [Smoking (tobacco) complicating , second trimester] Onset: 4 Episodic Other complications of (1 source) Other mental disorders complicating , second trimester; Translations: [Other mental disorders complicating , second trimester] Onset: 4 Episodic Other connective tissue disease (2 sources) Pain in right thigh; Translations: [Pain in right thigh] Onset: 4 Episodic Other connective tissue disease (2 sources) Pain in left thigh; Translations: [Pain in left thigh] Onset: 4 Episodic Other gastrointestinal disorders (2 sources) Diarrhea, unspecified; Translations: [Diarrhea, unspecified] Onset: 4 Episodic Other lower respiratory disease (1 source) Cough; Translations: [Cough in adult patient] Episodic Other nutritional; endocrine; and metabolic disorders (2 sources) Weight gain; Translations: [Weight gain] Onset: 0 01-04-2020 Episodic Other nutritional; endocrine; and metabolic disorders (1 source) Other symptoms and signs concerning food and fluid intake; Translations: [Other symptoms concerning nutrition, metabolism, and development] Episodic Other and delivery including normal (6 sources) Second trimester ; Translations: [Encounter for supervision of normal , unspecified, second trimester] Onset: 2 Episodic Other screening for suspected conditions (not mental disorders or infectious disease) (8 sources) Encounter for screening for Streptococcus B; Translations: [Encounter for screening for diabetes mellitus] Onset: 2 Episodic Other upper respiratory infections (1 source) Acute sinusitis; Translations: [Acute sinusitis, recurrence not specified, unspecified location] Episodic Personality disorders (9 sources) Borderline personality disorder; Translations: [Borderline personality disorder] Onset: 1 08-02-2020 Chronic Residual codes; unclassified (1 source) Tobacco user; Translations: [Tobacco abuse] Chronic Residual codes; unclassified (1 source) 26 weeks gestation of ; Translations: [26 weeks gestation of ] Onset: 4 Episodic Substance-related disorders (4 sources) Smoker; Translations: [Nicotine dependence, cigarettes, uncomplicated] Onset: 0 01-04-2020 Chronic Comment on above: Added secondary to d ocumentation in Social History. Suicide and intentional self-inflicted injury (1 source) Suicidal thoughts; Translations: [Suicidal thoughts] Episodic Thyroid disorders (2 sources) Hypothyroidism, unspecified; Translations: [Hypothyroidism, unspecified] Onset: 3 Chronic Unclassified (3 sources) Patient encounter status; Translations: [Encounter for laboratory testing for COVID-19 virus] Onset: 0 01-04-2020 Unclassified (1 source) CONTACT W/AND (SUSP) EXPOS COVID-19; Translations: [CONTACT W/AND (SUSP) EXPOS COVID-19] Onset: 2 Unclassified (1 source) T1DM Onset: 4 Unclassified (1 source) Acute candidiasis of vulva and vagina; Translations: [Acute candidiasis of vulva and vagina] Onset: 3 Urinary tract infections (4 sources) Acute cystitis; Translations: [Acute cystitis without hematuria] Onset: 3 Episodic Viral infection (1 source) Disease caused by 2019-nCoV; Translations: [COVID-19] Episodic Past or Other Problems Problem Classification Problem Date Documented Date Episodic/Chronic Administrative/social admission (1 source) Person with feared health complaint in whom no diagnosis is made; Translations: [Person with feared health complaint in whom no diagnosis is made] Onset: 12-22-2022 Episodic Diabetes or abnormal glucose tolerance complicating ; childbirth; or the puerperium (15 sources) Gestational diabetes mellitus in childbirth, insulin controlled; Translations: [Gestational diabetes mellitus in , diet controlled] Onset: 09-08-2021 Episodic Immunizations and screening for infectious disease (5 sources) Contact with and (suspected) exposure to other viral communicable diseases; Translations: [Encounter for screening for infections with a predominantly sexual mode of transmission] Onset: 06-18-2021 Episodic OB-related trauma to perineum and vulva [...] NONINFLAMMATORY D/O VAGINA] Onset: 06-21-2021 Episodic Other infections; including parasitic (9 sources) Personal history of other infectious and parasitic diseases; Translations: [History of 2019 novel coronavirus disease (COVID-19)] Onset: 01-20-2020 01-20-2020 Episodic Residual codes; unclassified (1 source) 37 [...] back pain without sciatica] Onset: 12-22-2022 Episodic Results Test Name Value Interpretation Reference Range Facility ED Prov Noteon 10-13-2023 ED Prov Note ED PROVIDER NOTE [facility] EMERGENCY DEPARTMENT NAME: Riri Dempsey AGE: 28 y.o. : 1995 VISIT DATE: 10/13/2023 CSN: [id number] PCP: Gaye Josue, [facility] [employer] Chief Complaint Patient presents with Leg Pain Nausea Abdominal Cramping 28-year-old female with past medical history of diabetes, depression, anxiety, palpitations, smoking marijuana, presents the emergency department presenting to the emergency department with multiple complaints. Patient states that yesterday she had emesis multiple times nonbilious nonbloody but not since. She also had diarrhea multiple times nonbloody and watery but none since. She is tolerated fluids and small amount of solids today. Also today for few minutes she had diffuse abdominal tightness like Amador Cochran contractions she said. It happened to her as well last night but was much worse last night. Last night it lasted for approximately 15 minutes. Additionally for the last 1 week she has had continuous discomfort in her bilateral medial thighs, made worse with walking, better with sitting or laying. She uses Tylenol with only mild relief. Additionally she states that a little over a week ago she was seen in the emergency department for vomiting blood. She states she is not able to quantify how much it was but states it was not a concerning amount. The emergency department where she was seen gave her some medicine to coat her esophagus and stomach and she has not had that happen since. She has yet to talk with her [facility] about any of this and they have told her they can get her in for over a week. They recommended that she come to emergency department. Her local [facility] [place] [facility] not have [facility] services so she came here. She typically gets her OB care at [facility] by Dr. Loy Asher. Additionally she states when she urinates it is very uncomfortable for her. There is not been any new or different vaginal discharge. No recent fevers, rigors, vomiting, diarrhea, cough or cold symptoms. Past Medical History: Diagnosis Date Anxiety Depression Diabetes mellitus (HCC) Heart palpitations Past Surgical History: Procedure Laterality Date BUNIONECTOMY Family History Problem Relation Age of Onset Diabetes Mother Hypertension Mother Breast cancer Maternal Grandmother Diabetes Maternal Grandmother Social History Socioeconomic History Marital status: Single Tobacco Use Smoking status: Former Packs/day: .5 Types: Cigarettes Smokeless tobacco: Never Vaping Use Vaping Use: Every day Substances: Nicotine Devices: Disposable Substance and Sexual Activity Alcohol use: Not Currently Comment: occassional Drug use: No Sexual activity: Yes Partners: Male control/protection: None Previous Medications Medication Sig aspirin 81 MG EC tablet Take 1 (one) tablet (81 mg total) by mouth every night at bedtime . ondansetron (ZOFRAN) 4 MG tablet Take 1 (one) tablet (4 mg total) by mouth every 8 (eight) hours as needed for nausea . sertraline (ZOLOFT) 100 MG tablet Take 1 (one) tablet (100 mg total) by mouth daily . triamcinolone (KENALOG) 0.1 % cream Apply 1 application. topically 2 (two) times a day APPLY TO THE AFFECTED AREA(S) TWICE DAILY . atorvastatin (LIPITOR) 10 MG tablet Take 1 (one) tablet (10 mg total) by mouth daily . clonazePAM (KLONOPIN) 0.5 MG tablet Take 1 (one) tablet (0.5 mg total) by mouth 2 (two) times a day as needed for anxiety (Days supply per fill: 14) . clonazePAM (KLONOPIN) 1 MG tablet Take 1 (one) tablet (1 mg total) by mouth 2 (two) times a day . cyclobenzaprine (FLEXERIL) 10 MG tablet TAKE 1 TABLET BY MOUTH only AT BEDTIME NEEDED diphenhydrAMINE (BENADRYL) 25 mg capsule Take 1 (one) capsule (25 mg total) by mouth every 6 (six) hours as needed for sleep . glipiZIDE (GLUCOTROL) 5 MG tablet Take 1 (one) tablet (5 mg total) by mouth daily . Lanadin Bae U-100 Insulin 100 unit/mL (3 mL) InPn Inject 12 (twelve) Units under the skin nightly . metFORMIN (GLUCOPHAGE) 500 MG tablet Take 1 (one) tablet (500 mg total) by mouth 2 (two) times a day . mirtazapine (REMERON) 30 MG tablet Take 1 (one) tablet (30 mg total) by mouth nightly . prazosin (MINIPRESS) 1 MG capsule Take 1 (one) capsule (1 mg total) by mouth nightly . progesterone (PROMETRIUM) 200 MG capsule TAKE 1 CAPSULE VAGINALLY TWICE DAILY. [DISCONTINUED] buPROPion (WELLBUTRIN) 75 MG tablet Take 1 (one) tablet (75 mg total) by mouth daily . No Known Allergies Review of Systems Patient Vitals for the past 24 hrs: BP Temp Temp src Pulse Resp SpO2 Height Weight 10/13/23 1551 131/73 98 degrees F (36.7 degrees C) Oral 99 18 97 % 5' 4 99.8 kg (220 lb) Physical Exam Vitals and nursing note reviewed. Constitutional: General: She is not in acute distress. Appearance: Normal appearance. She is not ill-appearing. Comments: Well appearing and comfortable. Able to speak (more content not included)... Normal [facility] URINALYSISon 10-13-2023 BACTERIA, URINE Few Abnormal None Seen [facility] Comment on above: Order Comment: Micro scopic examination is performed on all urinalysis samples and only positive findings are reported. The test for blood on the chemical analytic portion of urinalysis may also be positive due to hemoglobinuria and myoglobinuria and if red blood cells are present they are quantified by microscopic examination. Performed By: #### [id number] #### [facility] [address] [place] [address] Diego Hamilton M.D. [id number] BILIRUBIN, URINE Positive Abnormal Negative [facility] Comment on above: Order Comment: Micro scopic examination is performed on all urinalysis samples and only positive findings are reported. The test for blood on the chemical analytic portion of urinalysis may also be positive due to hemoglobinuria and myoglobinuria and if red blood cells are present they are quantified by microscopic examination. Result Comment: Fals e positive urine bilirubins can occur in the setting of a large amount of hemoglobin and secondary to medications including anti-inflammatory agents, rifampin, and pyridium. Performed By: #### [id number] #### [facility] [address] [place] [id number] Diego Hamilton M.D. [id number] BLOOD, URINE Negative Normal [facility] Comment on above: Order Comment: Micro scopic examination is performed on all urinalysis samples and only positive findings are reported. The test for blood on the chemical analytic portion of urinalysis may also be positive due to hemoglobinuria and myoglobinuria and if red blood cells are present they are quantified by microscopic examination. Performed By: #### [id number] #### [facility] [address] [place] [address] Diego Hamilton M.D. [id number] Clarity (U) Clear Normal Clear [facility] Comment on above: Order Comment: Micro scopic examination is performed on all urinalysis samples and only positive findings are reported. The test for blood on the chemical analytic portion of urinalysis may also be positive due to hemoglobinuria and myoglobinuria and if red blood cells are present they are quantified by microscopic examination. Performed By: #### [id number] #### [facility] [address] [place] [address] Diego Hamilton M.D. [id number] Color (U) Kay Abnormal Colorless, Yellow [facility] Comment on above: Order Comment: Micro scopic examination is performed on all urinalysis samples and only positive findings are reported. The test for blood on the chemical analytic portion of urinalysis may also be positive due to hemoglobinuria and myoglobinuria and if red blood cells are present they are quantified by microscopic examination. Performed By: #### [id number] #### [facility] [place] [address] Diego Hamilton M.D. [id number] Glucose Ql (U) Negative Normal [facility] Comment on above: Order Comment: Micro scopic examination is performed on all urinalysis samples and only positive findings are reported. The test for blood on the chemical analytic portion of urinalysis may also be positive due to hemoglobinuria and myoglobinuria and if red blood cells are present they are quantified by microscopic examination. Performed By: #### [id number] #### [facility] [address] [place] [address] Diego Hamilton M.D. [id number] Ketones Ql (U) >=80 Abnormal Negative [facility] Comment on above: Order Comment: Micro scopic examination is performed on all urinalysis samples and only positive findings are reported. The test for blood on the chemical analytic portion of urinalysis may also be positive due to hemoglobinuria and myoglobinuria and if red blood cells are present they are quantified by microscopic examination. Performed By: #### 4 6625 #### [facility] [address] [place] [address] Diego Hamilton M.D. [id number] Leukocyte esterase Test strip Ql (U) Small Abnormal Negative [facility] Comment on above: Order Comment: Micro scopic examination is performed on all urinalysis samples and only positive findings are reported. The test for blood on the chemical analytic portion of urinalysis may also be positive due to hemoglobinuria and myoglobinuria and if red blood cells are present they are quantified by microscopic examination. Performed By: #### 4 6625 #### [place] [address] Diego Hamilton M.D. [id number] NITRITE, URINE Negative Normal [facility] Comment on above: Order Comment: Micro scopic examination is performed on all urinalysis samples and only positive findings are reported. The test for blood on the chemical analytic portion of urinalysis may also be positive due to hemoglobinuria and myoglobinuria and if red blood cells are present they are quantified by microscopic examination. Performed By: #### 4 6625 #### [place] [address] Diego Hamilton M.D. [id number] pH (U) 6.5 [pH] Normal 5.0-7.0 [facility] Comment on above: Order Comment: Micro scopic examination is performed on all urinalysis samples and only positive findings are reported. The test for blood on the chemical analytic portion of urinalysis may also be positive due to hemoglobinuria and myoglobinuria and if red blood cells are present they are quantified by microscopic examination. Performed By: #### 4 6625 #### [address] [address] Diego Hamilton M.D. [id number] Protein (U) [Mass/Vol] 30 mg/dL Abnormal Negative [facility] Comment on above: Order Comment: Micro scopic examination is performed on all urinalysis samples and only positive findings are reported. The test for blood on the chemical analytic portion of urinalysis may also be positive due to hemoglobinuria and myoglobinuria and if red blood cells are present they are quantified by microscopic examination. Result Comment: Fals e positive results may occur in urines with large amounts of hemoglobin, pH greater than 8.0, contrast medium, or disinfectants including ammonium compounds. Performed By: #### 4 6625 #### [address] [address] Diego Hamilton M.D. [id number] RBC LM.HPF (Urine sed) [#/Area] 2 /[HPF] Normal 0-3 [facility] Comment on above: Order Comment: Micro scopic examination is performed on all urinalysis samples and only positive findings are reported. The test for blood on the chemical analytic portion of urinalysis may also be positive due to hemoglobinuria and myoglobinuria and if red blood cells are present they are quantified by microscopic examination. Performed By: #### 4 6625 #### [address] [address] Diego Hamilton M.D. [id number] Specific gravity (U) [Rel density] >= High 1.005-1.025 [facility] Comment on above: Order Comment: Micro scopic examination is performed on all urinalysis samples and only positive findings are reported. The test for blood on the chemical analytic portion of urinalysis may also be positive due to hemoglobinuria and myoglobinuria and if red blood cells are present they are quantified by microscopic examination. Performed By: #### 4 6625 #### [facility] [address] [address] Diego Hamilton M.D. [id number] SQUAMOUS EPITHELIAL 7 /hpf High 0-4 [facility] Comment on above: Order Comment: Micro scopic examination is performed on all urinalysis samples and only positive findings are reported. The test for blood on the chemical analytic portion of urinalysis may also be positive due to hemoglobinuria and myoglobinuria and if red blood cells are present they are quantified by microscopic examination. Performed By: #### 4 6625 #### [address] [address] Diego Hamilton M.D. [id number] UROBILINOGEN, URINE <2.0 Normal <2.0 [facility] Comment on above: Order Comment: Micro scopic examination is performed on all urinalysis samples and only positive findings are reported. The test for blood on the chemical analytic portion of urinalysis may also be positive due to hemoglobinuria and myoglobinuria and if red blood cells are present they are quantified by microscopic examination. Performed By: #### 4 6625 #### [facility] [address] [place], [place] [address] Diego Hamilton M.D. [id number] WBC LM.HPF (Urine sed) [#/Area] 45 /[HPF] High 0-5 [facility] Comment on above: Order Comment: Micro scopic examination is performed on all urinalysis samples and only positive findings are reported. The test for blood on the chemical analytic portion of urinalysis may also be positive due to hemoglobinuria and myoglobinuria and if red blood cells are present they are quantified by microscopic examination. Performed By: #### 4 6625 #### [facility] [address] [place] [address] Diego Hamilton M.D. [id number] URINE AEROBIC CULTUREon 10-03 URINE AEROBIC CULTURE URINE CULTURE No Growth (<1,000 CFU/mL) Normal [facility] Comment on above: Performed By: #### 4 4053 #### [facility] [place] [address] Hilton Fox M.D. [id number] Basic Metabolic Profon 10-08 Anion gap [Moles/Vol] 18 mmol/L High 9-[address] [facility] Comment on above: Performed By: #### C DP, BMP #### [facility] [address] [place] [address] [employer] Officer: Zayra hCapman MD BUN/CRE Ratio 18 Normal 9-20 [facility] Comment on above: Performed By: #### C DP, BMP #### [facility] [address] [place] [address] [employer] Officer: Zayra Chapman MD Calcium [Mass/Vol] 8.7 mg/dL Normal 8.6-10.4 [facility] [place] [facility] Comment on above: Performed By: #### C DP, BMP #### [facility] [address] [place] [address] [employer] Officer: Zayra Chapman MD Chloride [Moles/Vol] 103 mmol/L Normal 98-107 [facility] Comment on above: Performed By: #### C DP, BMP #### [facility] [address] [place] [address] [employer]: Zayra Chapman MD CO2 [Moles/Vol] 15 mmol/L Low 20-31 [facility] Comment on above: Performed By: #### C DP, BMP #### [facility] [address] [place] [address] [employer] Officer: Zayra Chapman MD Creatinine [Mass/Vol] 0.4 mg/dL Low 0.5-0.[address] [facility] Comment on above: Performed By: #### C DP, BMP #### [facility] [address] [place] [address] [employer] Officer: Zayra Chapman MD GFR/1.73 sq M.predicted among non-blacks MDRD (S/P/Bld) [Vol rate/Area] mL/min/{1.73_m2} Normal >60 [facility] [place] [facility] Comment on above: Result Comment: These results [...] affects renal tubular secretion. Performed By: #### C DP, BMP #### [facility] [address] [place], [place] [id number] [employer]: Zayra Chapman MD Glucose [Mass/Vol] 143 mg/dL High 70-99 [facility] [place] [facility] Comment on above: Performed By: #### C DP, BMP #### [facility] [address] [place] [address] [employer] Officer: Zayra Chapman MD Potassium [Moles/Vol] 3.6 mmol/L Low 3.7-5.[address] [facility] Comment on above: Performed By: #### C DP, BMP #### [facility] [address] [place], [place] [id number] [employer]: Zayra Chapman MD Sodium [Moles/Vol] 136 mmol/L Normal 135-144 [facility] [place] [facility] Comment on above: Performed By: #### C DP, BMP #### [facility] [address] [place] [address] [employer] Officer: Zayra Chapman MD Urea nitrogen [Mass/Vol] 7 mg/dL Normal 6-20 [facility] [place] [facility] Comment on above: Performed By: #### C DP, BMP #### [facility] [address] [place] [address] [employer]: Zayra Chapman MD CBC with Diffon 10-09-2023 Abs. Basophil 0.04 k/uL Normal 0.00-0.20 [facility] Comment on above: Performed By: #### C DP, BMP #### [facility] [address] [place] [address] [employer]: Zayra Chapman MD Abs.Imm.Granulocyte 0.03 k/uL Normal 0.00-0.30 [facility] [place] [facility] Comment on above: Performed By: #### C DP, BMP #### [facility] [address] [place] [address] [employer]: Zayra Chapman MD Abs.Neutrophil (Seg) 6.85 k/uL Normal 2.5-7.0 [facility] Comment on above: Performed By: #### C DP, BMP #### [facility] [address] [place], [place] [id number] [employer]: Zayra Chapman MD Basophils/100 WBC (Bld) 0 % Normal 0-2 M [facility] Comment on above: Performed By: #### C DP, BMP #### [facility] [address] [place] [address] [employer]: Zayra Chapman MD Eosinophils (Bld) [#/Vol] 0.08 10*3/uL Normal 0.00-0.40 [facility] [place] [facility] Comment on above: Performed By: #### C DP, BMP #### [facility] [address] [place] [address] [employer]: Zayra Chapman MD Eosinophils/100 WBC (Bld) 1 % Normal 0-5 [facility] [place] [facility] Comment on above: Performed By: #### C DP, BMP #### [facility] [address] [place] [address] [employer] Officer: Zayra Chapman MD Erythrocyte distribution width (RBC) [Ratio] 13.1 % Normal 12.1-15.2 [facility] [place] [facility] Comment on above: Performed By: #### C DP, BMP #### [facility] [address] [place] [address] [employer]: Zayra Chapman MD Hematocrit (Bld) [Volume fraction] 31.5 % Low 36.0-46.0 [facility] [place] [facility] Comment on above: Performed By: #### C DP, BMP #### [facility] [address] [place] [address] [employer]: Zayra Chapman MD Hemoglobin (Bld) [Mass/Vol] 10.3 g/dL Low 12.0-16.0 [facility] [place] [facility] Comment on above: Performed By: #### C DP, BMP #### [facility] [address] [place] [address] [employer]: Zayra Chapman MD Immature granulocytes/100 WBC (Bld) 0 % Normal 0-5 [facility] [place] [facility] Comment on above: Performed By: #### C DP, BMP #### [facility] [address] [place] [address] [employer] Officer: Zayra Chapman MD Lymphocytes (Bld) [#/Vol] 1.83 10*3/uL Normal 1.00-4.80 [facility] [place] [facility] Comment on above: Performed By: #### C DP, BMP #### [facility] [address] [place] [phone] [employer]: Zayra Chapman MD Lymphocytes/100 WBC (Bld) 20 % Normal 15-40 [facility] [place] [facility] Comment on above: Performed By: #### C DP, BMP #### [facility] [address] [place] [address] [employer] Officer: Zayra Chapman MD MCH (RBC) [Entitic mass] 27.4 pg Normal 26.0-34.0 [facility] [place] [facility] Comment on above: Performed By: #### C DP, BMP #### [facility] [address] [place] [phone] [employer]: Zayra Chapman MD MCHC (RBC) [Mass/Vol] 32.7 g/dL Normal 31.0-37.[address] [facility] Comment on above: Performed By: #### C DP, BMP #### [facility] [address] [place] [address] [employer]: Zayra Chapman MD MCV (RBC) [Entitic vol] 83.8 fL Normal 80.0-100.0 M [facility] Comment on above: Performed By: #### C DP, BMP #### [facility] [address] [place] [phone] [employer]: Zayra Chapman MD Monocytes (Bld) [#/Vol] 0.50 10*3/uL Normal 0.00-1.00 [facility] [place] [facility] Comment on above: Performed By: #### C DP, BMP #### [facility] [address] [place] [address] [employer]: Zayra Chapman MD Monocytes/100 WBC (Bld) 5 % Normal 4-8 M [facility] Comment on above: Performed By: #### C DP, BMP #### [facility] [address] [place] [address] [employer]: Zayra Chapman MD Neutrophil (Seg) 74 % Normal 47-75 [facility] Comment on above: Performed By: #### C DP, BMP #### [facility] [address] [place] [address] [employer]: Zayra Chapman MD Platelet mean volume (Bld) [Entitic vol] 11.3 fL Normal 6.0-12.0 [facility] Comment on above: Performed By: #### C DP, BMP #### [facility] [address] [place] [address] [employer] Officer: Zayra Chapman MD Platelets (Bld) [#/Vol] 201 10*3/uL Normal 140-450 [facility] [place] [facility] Comment on above: Performed By: #### C DP, BMP #### [facility] [address] [place] [address] [employer] Officer: Zayra Chapman MD RBC (Bld) [#/Vol] 3.76 10*6/uL Low 4.00-5.20 [facility] [place] [facility] Comment on above: Performed By: #### C DP, BMP #### [facility] [address] [place] [address] [employer]: Zayra Chapman MD WBC (Bld) [#/Vol] 9.3 10*3/uL Normal 3.5-11.0 [facility] [place] [facility] Comment on above: Performed By: #### C DP, BMP #### [facility] [address] [place], [place] [id number] (753) [employer]: Zayra Chapman MD Cult,Urineon 04-17-2024 Cult,Urine Specimen Description .CLEAN CATCH URINE Culture NO SIGNIFICANT GROWTH Report Status FINAL 08/20/2023 Normal [facility] [place] [facility] Comment on above: Performed By: #### U SAMIRAO, CG, UA #### [facility] [address] [place] [address] [employer]: Zayra Chapman MD Ultrasound - Officeon 2023 Radiology Study observation (narrative) [facility] HIV 1&2 AB/AG Screen (P24 AG )on 06-20-2023 HIV 1&2 AB/AG Negative [facility] Hemoglobin A1con 06-20-2023 HbA1c (Bld) [Mass fraction] 7.2 % Abnormal 4.0 - 6.0 % [facility] Interpretation and review of laboratory results Abnormal [facility] Hepatitis B surface antigeno n 06-20-2023 Hepatitis B Surface Antigen Negative [facility] No Panel Informationon 06-20 [facility] Rubella IGG immune statuson 06-20-2023 Rubella immune IgG immune [facility] Syphilis Total(Unknown Syphi lis Status)on 06-20-2023 Syphilis Non-Reactive [facility] Type and screenon 06-20-2023 Abo/Rh(D) Positive [facility] Ultrasound - Officeon 2023 [facility] CBC with Diffon 02-13-2023 Abs. Basophil 0.01 k/uL Normal 0.00-0.20 [facility] Comment on above: Performed By: #### L IPR, T4, GLYHGB, T3 #### [facility] [address] [place] [address] [employer]: Antoine Wilson MD #### CP, TSH, CDP, ZFAST #### [facility] [address] [place] [address] [employer] Officer: Zayra Chapman MD Abs.Imm.Granulocyte 0.02 k/uL Normal 0.00-0.30 [facility] [place] [facility] Comment on above: Performed By: #### L IPR, T4, GLYHGB, T3 #### [address] [address] [employer]: Antoine Wilson MD #### CP, TSH, CDP, ZFAST #### [facility] [address] [place], [place] [phone] [employer] Officer: Zayra Chapman MD Abs.Neutrophil (Seg) 4.27 k/uL Normal 2.5-7.0 [facility] Comment on above: Performed By: #### L IPR, T4, GLYHGB, T3 #### [address] [phone] [employer]: Antoine Wilson MD #### CP, TSH, CDP, ZFAST #### [facility] [address] [place], [place] [id number] [employer] Officer: Zayra Chapman MD Basophils/100 WBC (Bld) 0 % Normal 0-2 M [facility] Comment on above: Performed By: #### L IPR, T4, GLYHGB, T3 #### [address] [id number] [employer]: Antoine Wilson MD #### CP, TSH, CDP, ZFAST #### [facility] [address] [place], [place] [id number] [employer] Officer: Zayra Chapman MD Eosinophils (Bld) [#/Vol] 0.07 10*3/uL Normal 0.00-0.40 [facility] [place] [facility] Comment on above: Performed By: #### L IPR, T4, GLYHGB, T3 #### [address] [address] [employer]: Antoine Wilson MD #### CP, TSH, CDP, ZFAST #### [facility] [address] [place], [place] [id number] [employer] Officer: Zayra Chapman MD Eosinophils/100 WBC (Bld) 1 % Normal 0-5 [facility] [place] [facility] Comment on above: Performed By: #### L IPR, T4, GLYHGB, T3 #### [address] [id number] [employer] Officer: Antoine Wilson MD #### CP, TSH, CDP, ZFAST #### [facility] [address] [place], [place] [phone] [employer] Officer: Zayra Chapman MD Erythrocyte distribution width (RBC) [Ratio] 13.2 % Normal 12.1-15.2 [facility] [place] [facility] Comment on above: Performed By: #### L IPR, T4, GLYHGB, T3 #### [address] [id number] [employer] Officer: Antoine Wilson MD #### CP, TSH, CDP, ZFAST #### [facility] [address] [place] [phone] [employer] Officer: Zayra Chapman MD Hematocrit (Bld) [Volume fraction] 41.9 % Normal 36.0-46.0 [facility] [place] [facility] Comment on above: Performed By: #### L IPR, T4, GLYHGB, T3 #### [address] [id number] [employer] Officer: Antoine Wilson MD #### CP, TSH, CDP, ZFAST #### [facility] [address] [place], [place] [id number] [employer] Officer: Zayra Chapman MD Hemoglobin (Bld) [Mass/Vol] 13.5 g/dL Normal 12.0-16.0 [facility] [place] [facility] Comment on above: Performed By: #### L IPR, T4, GLYHGB, T3 #### [address] [id number] [employer] Officer: Antoine Wilson MD #### CP, TSH, CDP, ZFAST #### [facility] [address] [place], [place] [id number] [employer] Officer: Zayra Chapman MD Immature granulocytes/100 WBC (Bld) 0 % Normal 0-5 [facility] [place] [facility] Comment on above: Performed By: #### L IPR, T4, GLYHGB, T3 #### [address] [id number] [employer] Officer: Antoine Wilson MD #### CP, TSH, CDP, ZFAST #### [facility] [address] [place], [place] [id number] [employer] Officer: Zayra Chapman MD Lymphocytes (Bld) [#/Vol] 1.14 10*3/uL Normal 1.00-4.80 [facility] [place] [facility] Comment on above: Performed By: #### L IPR, T4, GLYHGB, T3 #### [address] [id number] [employer] Officer: Antoine Wilson MD #### CP, TSH, CDP, ZFAST #### [facility] [address] [place], [place] [id number] [employer] Officer: Zayra Chapman MD Lymphocytes/100 WBC (Bld) 20 % Normal 15-40 [facility] [place] [facility] Comment on above: Performed By: #### L IPR, T4, GLYHGB, T3 #### [address] [id number] [employer] Officer: Antoine Wilson MD #### CP, TSH, CDP, ZFAST #### [facility] [address] [place], [place] [id number] [employer] Officer: Zayra Chapman MD MCH (RBC) [Entitic mass] 26.6 pg Normal 26.0-34.0 [facility] [place] [facility] Comment on above: Performed By: #### L IPR, T4, GLYHGB, T3 #### [address] [id number] [employer] Officer: Antoine Wilson MD #### CP, TSH, CDP, ZFAST #### [facility] [address] [place] [address] [employer] Officer: Zayra Chapman MD MCHC (RBC) [Mass/Vol] 32.2 g/dL Normal 31.0-37.[address] [facility] Comment on above: Performed By: #### L IPR, T4, GLYHGB, T3 #### [address] [id number] [employer] Officer: Antoine Wilson MD #### CP, TSH, CDP, ZFAST #### [facility] [address] [place] [address] [employer] Officer: Zayra Chapman MD MCV (RBC) [Entitic vol] 82.6 fL Normal 80.0-100.0 [facility] Comment on above: Performed By: #### L IPR, T4, GLYHGB, T3 #### [place] [id number] [employer] Officer: Antoine Wilson MD #### CP, TSH, CDP, ZFAST #### [facility] [address] [place] [address] [employer] Officer: Zayra Chapman MD Monocytes (Bld) [#/Vol] 0.30 10*3/uL Normal 0.00-1.00 [facility] [place] [facility] Comment on above: Performed By: #### L IPR, T4, GLYHGB, T3 #### [place] [id number] [employer] Officer: Antoine Wilson MD #### CP, TSH, CDP, ZFAST #### [facility] [address] [place] [address] [employer] Officer: Zayra Chapman MD Monocytes/100 WBC (Bld) 5 % Normal 4-8 M [facility] Comment on above: Performed By: #### L IPR, T4, GLYHGB, T3 #### [facility] [address] [place] [address] [employer] Officer: Antoine Wilson MD #### CP, TSH, CDP, ZFAST #### [facility] [address] [place] [address] [employer] Officer: Zayra Chapman MD Neutrophil (Seg) 74 % Normal 47-75 [facility] Comment on above: Performed By: #### L IPR, T4, GLYHGB, T3 #### [address] [address] [employer] Officer: Antoine Wilson MD #### CP, TSH, CDP, ZFAST #### [facility] [address] [place], [place] [id number] [employer] Officer: Zayra Chapman MD Platelet mean volume (Bld) [Entitic vol] 11.0 fL Normal 6.0-12.0 [facility] Comment on above: Performed By: #### L IPR, T4, GLYHGB, T3 #### [address] [address] [employer] Officer: Antoine Wilson MD #### CP, TSH, CDP, ZFAST #### [facility] [address] [place], [place] [id number] [employer] Officer: Zayra Chapman MD Platelets (Bld) [#/Vol] 206 10*3/uL Normal 140-450 [facility] [place] [facility] Comment on above: Performed By: #### L IPR, T4, GLYHGB, T3 #### [address] [address] [employer] Officer: Antoine Wilson MD #### CP, TSH, CDP, ZFAST #### [facility] [address] [place], [place] [id number] [employer] Officer: Zayra Chapman MD RBC (Bld) [#/Vol] 5.07 10*6/uL Normal 4.00-5.20 [facility] [place] [facility] Comment on above: Performed By: #### L IPR, T4, GLYHGB, T3 #### [address] [address] [employer] Officer: Antoine Wilson MD #### CP, TSH, CDP, ZFAST #### [facility] [address] [place], [place] [phone] [employer] Officer: Zayra Chapman MD WBC (Bld) [#/Vol] 5.8 10*3/uL Normal 3.5-11.0 [facility] [place] [facility] Comment on above: Performed By: #### L IPR, T4, GLYHGB, T3 #### [address] [id number] Staff [employer] Officer: Antoine Wilson MD #### CP, TSH, CDP, ZFAST #### [facility] [address] [place], [place] [id number] Staff [employer] Officer: Zayra Chapman MD Comp Metabolic Profon 2022 Albumin [Mass/Vol] 4.3 g/dL Normal 3.5-5.2 [facility] Comment on above: Performed By: #### L IPR, T4, GLYHGB, T3 #### [address] [address] Staff [employer] Officer: Antoine Wilson MD #### CP, TSH, CDP, ZFAST #### [facility] [address] [place], [place] [id number] Staff [employer] Officer: Zayra Chapman MD Alkaline Phos 127 U/L High 35-104 [facility] Comment on above: Performed By: #### L IPR, T4, GLYHGB, T3 #### [address] [address] Staff [employer] Officer: Antoine Wilson MD #### CP, TSH, CDP, ZFAST #### [facility] [address] [place], [place] [id number] Staff [employer] Officer: Zayra Chapman MD ALT [Catalytic activity/Vol] 51 U/L High 5-33 [facility] Comment on above: Performed By: #### L IPR, T4, GLYHGB, T3 #### [address] [phone] Staff [employer] Officer: Antoine Wilson MD #### CP, TSH, CDP, ZFAST #### [facility] [address] [place], [place] [phone] Staff [employer] Officer: Zayra Chapman MD Anion gap [Moles/Vol] 12 mmol/L Normal 9-[address] [facility] Comment on above: Performed By: #### L IPR, T4, GLYHGB, T3 #### [address] [phone] Staff [employer] Officer: Antoine Wilson MD #### CP, TSH, CDP, ZFAST #### [facility] [address] [place], [place] [phone] Staff [employer] Officer: Zayra Chapman MD AST [Catalytic activity/Vol] 31 U/L Normal <32 [facility] Comment on above: Performed By: #### L IPR, T4, GLYHGB, T3 #### [address] [phone] Staff [employer] Officer: Antoine Wilson MD #### CP, TSH, CDP, ZFAST #### [facility] [address] [place], [place] [phone] Staff [employer] Officer: Zayra Chapman MD Bilirubin [Mass/Vol] 0.3 mg/dL Normal 0.3-1.2 [facility] Comment on above: Performed By: #### L IPR, T4, GLYHGB, T3 #### [address] [phone] Staff [employer] Officer: Antoine Wilson MD #### CP, TSH, CDP, ZFAST #### [facility] [address] [place], [place] [phone] Staff [employer] Officer: Zayra Chapman MD BUN/CRE Ratio 16 Normal 9-20 [facility] Comment on above: Performed By: #### L IPR, T4, GLYHGB, T3 #### [address] [phone] Staff [employer] Officer: Antoine Wilson MD #### CP, TSH, CDP, ZFAST #### [facility] [address] [place], [place] [phone] Staff [employer] Officer: Zayra Chapman MD Calcium [Mass/Vol] 9.0 mg/dL Normal 8.6-10.4 [facility] Comment on above: Performed By: #### L IPR, T4, GLYHGB, T3 #### [address] [phone] Staff [employer] Officer: Antoine Wilson MD #### CP, TSH, CDP, ZFAST #### [facility] [address] [place], [place] [phone] Staff [employer] Officer: Zayra Chapman MD Chloride [Moles/Vol] 100 mmol/L Normal 98-107 [facility] Comment on above: Performed By: #### L IPR, T4, GLYHGB, T3 #### [address] [phone] Staff [employer] Officer: Antoine Wilson MD #### CP, TSH, CDP, ZFAST #### [facility] [address] [place], [place] 1506690 Staff [employer] Officer: Zayra Chapman MD CO2 [Moles/Vol] 24 mmol/L Normal 20-31 [facility] Comment on above: Performed By: #### L IPR, T4, GLYHGB, T3 #### [address] [phone] Staff [employer] Officer: Antoine Wilson MD #### CP, TSH, CDP, ZFAST #### [facility] [address] [place], [place] [phone] Staff [employer] Officer: Zayra Chapman MD Creatinine [Mass/Vol] 0.7 mg/dL Normal 0.5-0.[address] [facility] Comment on above: Performed By: #### L IPR, T4, GLYHGB, T3 #### [address] [phone] Staff [employer] Officer: Antoine Wilson MD #### CP, TSH, CDP, ZFAST #### [facility] [address] [place] [address] Staff [employer] Officer: Zayra Chapman MD GFR/1.73 sq M.predicted among non-blacks MDRD (S/P/Bld) [Vol rate/Area] mL/min/{1.73_m2} Normal >60 [facility] Comment on above: Result Comment: These results [...] #### L IPR, T4, GLYHGB, T3 #### [address] [phone] Staff [employer] Officer: Antoine Wilson MD #### CP, TSH, CDP, ZFAST #### [facility] [address] [place] [address] Staff [employer] Officer: Zayra Chapman MD Glucose [Mass/Vol] 367 mg/dL High 70-99 [facility] Comment on above: Performed By: #### L IPR, T4, GLYHGB, T3 #### [facility] [employer] [address] [place] [address] [phone] Staff [employer] Officer: Antoine Wilson MD #### CP, TSH, CDP, ZFAST #### [facility] [address] [place], [place] [phone] Staff [employer] Officer: Zayra Chapman MD Potassium [Moles/Vol] 4.3 mmol/L Normal 3.7-5.[address] [facility] Comment on above: Performed By: #### L IPR, T4, GLYHGB, T3 #### [address] [phone] Staff [employer] Officer: Antoine Wilson MD #### CP, TSH, CDP, ZFAST #### [facility] [address] [place], [place] [phone] Staff [employer] Officer: Zayra Chapman MD Protein [Mass/Vol] 7.0 g/dL Normal 6.4-8.3 [facility] Comment on above: Performed By: #### L IPR, T4, GLYHGB, T3 #### [address] [phone] Staff [employer] Officer: Antoine Wilson MD #### CP, TSH, CDP, ZFAST #### [facility] [address] [place], [place] [phone] Staff [employer] Officer: Zayra Chapman MD Sodium [Moles/Vol] 136 mmol/L Normal 135-144 [facility] Comment on above: Performed By: #### L IPR, T4, GLYHGB, T3 #### [address] [phone] Staff [employer] Officer: Antoine Wilson MD #### CP, TSH, CDP, ZFAST #### [facility] [address] [place], [place] [phone] Staff [employer] Officer: Zayra Chapman MD Urea nitrogen [Mass/Vol] 11 mg/dL Normal 6-20 [facility] Comment on above: Performed By: #### L IPR, T4, GLYHGB, T3 #### [facility] [address] [place], [place] [phone] Staff [employer] Officer: Antoine Wilson MD #### CP, TSH, CDP, ZFAST #### [facility] [address] [place], [place] [phone] Staff [employer] Officer: Zayra Chapman MD Hemoglobin A1Con 02-13-2023 Glucose [Mass/Vol] 280 mg/dL Normal [facility] Comment on above: Result Comment: The ADA and AACC recommend providing the estimated average glucose result to permit better patient understanding of their HBA1c result. Performed By: #### Julien DAVID[place] [facility] #### [facility] [address] [place] [address] Staff [employer] Officer: Zayra Chapman MD HbA1c (Bld) [Mass fraction] 11.4 % High 4.0-6.0 [facility] Comment on above: Performed By: #### Julien DAVIDSON [facility] #### [facility] [address] [place] [address] Staff [employer] Officer: Zayra Chapman MD Lipid Profileon 02-13-2023 Cholesterol [Mass/Vol] 215 mg/dL High 0-199 [facility] Comment on above: Result Comment: Cholesterol Guidelines: <200 Desirable 200-240 Borderline >240 Undesirable Performed By: #### Julien DAVIDSON JOYCELYN, UA #### [facility] [address] [place], [place] [phone] Staff [employer] Officer: Zayra Chapman MD Cholesterol in HDL [Mass/Vol] 27 mg/dL Low >40 [facility] Comment on above: Result Comment: HDL Guidelines: <40 Undesirable 40-59 Borderline >59 Desirable Performed By: #### [facility] #### [facility] [address] [place] [address] Staff [employer] Officer: Zayra Chapman MD Cholesterol in LDL [Mass/Vol] 130 mg/dL High 0-100 [facility] Comment on above: Result Comment: LDL Guidelines: <100 Desirable 100-129 Near to/above Desirable 130-159 Borderline >159 Undesirable Direct (measured) LDL and calculated LDL are not interchangeable tests. Performed By: #### U SAMIRAMar [facility] [place] #### [facility] [address] [place], [place] [phone] Staff [employer] Officer: Zayra Chapman MD Cholesterol in VLDL [Mass/Vol] 58 mg/dL Normal [facility] Comment on above: Performed By: #### U SAMIRAMar [facility] #### [facility] [address] [place], [place] [phone] Staff [employer] Officer: Zayra Chapman MD Cholesterol.total/Otilia sterol in HDL [Mass ratio] 8.0 {ratio} Normal [facility] Comment on above: Performed By: #### Julien DAVIDSON [facility] #### [facility] [address] [place], [place] [phone] Staff [employer] Officer: Zayra Chapman MD Triglyceride [Mass/Vol] 291 mg/dL High 0-149 M [facility] Comment on above: Result Comment: Triglyceride Guidelines: <150 Desirable 150-199 Borderline 200-499 High >499 Very high Based on AHA Guidelines for fasting triglyceride, February 2012. Performed By: #### Julien [facility], [facility] #### [facility] [address] [place], [place] [phone] Staff [employer] Officer: Zayra Chapman MD Patient fasting?on 3 Patient fasting? YES Normal [facility] Comment on above: Performed By: #### L IPR, T4, GLYHGB, T3 #### [facility] [address] [place] [address] Staff [employer] Officer: Antoine Wilson MD #### CP, TSH, CDP, ZFAST #### [facility] [address] [place], [place] [phone] Staff [employer] Officer: Zayra Chapman MD Thyroid Stim. Horm.on 2022 Thyroid Stim. Horm. 1.43 uIU/mL Normal 0.30-5.00 [facility] Comment on above: Performed By: #### U STUART [facility] #### [facility] [address] [place], [place] [phone] Staff [employer] Officer: Zayra Chapman MD Thyroxine T4on 02-13-2023 T4 [Mass/Vol] 5.9 ug/dL Normal 4.5-11.7 [facility] Comment on above: Performed By: #### U STUART [facility] #### [facility] [address] [place], [place] [phone] Staff [employer] Officer: Zayra Chapman MD Triiodothyronine T3on 2022 Triiodothyronine T3 109 ng/dL Normal 80-200 [facility] Comment on above: Performed By: #### Julien DAVIDSON [facility] #### [facility] [address] [place] [address] Staff [employer] Officer: Zayra Chapman MD Chlamydia/GC DNA, Uron 12-23 Chlamydia Probe, Ur Negative Normal NEG [facility] Comment on above: Result Comment: CHLA MYDIA [...] nucleic acid target. Performed By: #### U [facility] #### [facility] [address] [place] [address] Staff [employer] Officer: Antoine Wilson MD Gonorrhea Probe, Ur Negative Normal NEG [facility] Comment on above: Result Comment: NEIS SERIA GONORRHOEAE DNA not detected by nucleic [...] nucleic acid target. Performed By: #### U CGP #### [facility] [address] [place] [id number] Staff [employer] Officer: Antoine Wilson MD Cult,Urineon 12-21-2022 Cult,Urine Specimen Description .URINE, [...] Tobramycin 8 INTERMEDIATE Trimethoprim/Sulfa >=320 RESISTANT Resistant [facility] Comment on above: Performed By: #### U RC #### [place] [id number] Staff [employer] Officer: Antoine Wilson MD [facility] [address] [place] [address] Staff [employer] Officer: Zayra Chapman MD HCG, ,Urineon 12-19 Beta HCG ( test) Ql (U) Negative Normal NEG [facility] Comment on above: Performed By: #### U MICAO, UHCG, UA #### [facility] [address] [place] [address] Staff [employer] Officer: Zayra Chapman MD Microscopic Urinalysison - [facility] Bacteria LM Ql (Urine sed) 4+ Abnormal None [facility] Epithelial cells LM.HPF (Urine sed) [#/Area] 2 TO 5 /HPF [facility] Interpretation and review of laboratory results Abnormal [facility] RBC LM.HPF (Urine sed) [#/Area] 2 TO 5 [facility] WBC LM.HPF (Urine sed) [#/Area] 50 TO 100 0 /HPF [facility] Yeast LM Ql (Urine sed) OCCASIONAL Abnormal None B ON [facility] , Urineon HCG ( test) Ql (U) Negative NEGATIVE [facility] Urinalysison 12-19-2022 Bilirubin Ql (U) Negative NEGATIVE [facility] Clarity (U) Cloudy Abnormal Clear [facility] Color (U) Yellow Yellow [facility] Comment [facility] Glucose Test strip (U) [Mass/Vol] 1000 mg/dL Abnormal NEGATIVE mg/dL [facility] Hemoglobin Auto test strip Ql (U) 1+ Abnormal NEGATIVE [facility] Interpretation and review of laboratory results Abnormal [facility] Ketones (U) [Mass/Vol] Negative NEGAT ELKIN mg/dL [facility] Leukocyte esterase Test strip Ql (U) 3+ Abnormal NEGATIVE [facility] Nitrite Ql (U) Positive Abnormal NEGATIVE [facility] pH (U) 6.0 [pH] 5.0 - 8.0 [facility] Protein (U) [Mass/Vol] 1+ Abnormal NEGAT ELKIN mg/dL [facility] Specific gravity (U) [Rel density] 1.010 1.005 - 1.030 [facility] Urobilinogen Qn (U) Normal 0.0 - 1. 0 EU/dL [facility] Urinalysis, Routineon 2022 Bilirubin, SemiQt,Ur Negative Normal NEG [facility] Comment on above: Performed By: #### U [facility] #### [facility] [address] [place] [address] Staff [employer] Officer: Zayra Chapman MD Blood, Urine 1+ Abnormal NEG [facility] Comment on above: Performed By: #### U [facility] [facility] #### [facility] [address] [facility] [place] [address] Staff [employer] Officer: Zayra Chapman MD Clarity (U) Cloudy Abnormal CLEAR [facility] Comment on above: Performed By: #### U SAMIRAO, [facility] [facility] #### [facility] [address] [place] [address] Staff [employer] Officer: Zayra Chapman MD Color (U) Yellow Normal YEL [facility] Comment on above: Performed By: #### U STUART, [facility] [facility] #### [facility] [address] [place] [address] Staff [employer] Officer: Zayra Chapman MD Comment Normal [facility] Comment on above: Performed By: #### U STUART [facility] #### [facility] [address] [place] [address] Staff [employer] Officer: Zayra Chapman MD Glucose Ql (U) 1000 mg/dL Abnormal NEG [facility] Comment on above: Performed By: #### U STUART, [facility] #### [facility] [address] [place] [address] Staff [employer] Officer: Zayra Chapman MD Ketones Ql (U) Negative Normal NEG [facility] Comment on above: Performed By: #### U STUART [facility] #### [facility] [address] [place] [address] Staff [employer] Officer: Zayra Chapman MD Leukocyte esterase Test strip Ql (U) 3+ Abnormal NEG [facility] Comment on above: Performed By: #### U SAMIRAO, [facility] #### [facility] [address] [place] [address] Staff [employer] Officer: Zayra Chapman MD Nitrite,Ur Positive Abnormal NEG [facility] Comment on above: Performed By: #### U MICAO, CG, UA #### [facility] [address] [place] [address] Staff [employer] Officer: Zayra Chapman MD PH,Ur 6.0 Normal 5.0-8.0 [facility] Comment on above: Performed By: #### U [facility]AO, [facility] #### [facility] [address] [place] [address] Staff [employer] Officer: Zayra Chapman MD Protein Ql (U) 1+ mg/dL Abnormal NEG [facility] Comment on above: Performed By: #### U [facility] #### [facility] [address] [place] [address] Staff [employer] Officer: Zayra Chapman MD Spec. Fleming,Ur 1.010 Normal 1.005-1.030 [facility] Comment on above: Performed By: #### U [facility] #### [facility] [address] [place] [address] Staff [employer] Officer: Zayra Chapman MD Urobilinogen,Ur Normal Normal 0.0-1.0 [facility] Comment on above: Performed By: #### U [facility] #### [facility] [address] [place] [address] Staff [employer] Officer: Zayra Chapman MD Urinalysis,Microon 3 ----- Normal [facility] Comment on above: Performed By: #### U MICAO, [facility] #### [facility] [address] [place] [address] Staff [employer] Officer: Zayra Chapman MD Bacteria 4+ Abnormal NONE [facility] Comment on above: Performed By: #### U MICAO, CG, UA #### [facility] [address] [place], [place] [id number] Staff [employer] Officer: Zayra Chapman MD Epithelial cells LM Ql (Urine sed) 2 TO 5 Normal [facility] Comment on above: Performed By: #### U STUART [facility] #### [facility] [address] [place], [place] [phone] Staff [employer] Officer: Zayra Chapman MD Urine RBC's 2 TO 5 Normal 0-2 [facility] Comment on above: Performed By: #### Julien DAVIDSON, [facility] #### [facility] [address] [place] [address] Staff [employer] Officer: Zayra Chapman MD Urine WBC's 50 TO 100 Normal 0 [facility] Comment on above: Performed By: #### Julien DAVIDSON [facility] [place] #### [facility] [address] [place] [address] Staff [employer] Officer: Zayra Chapman MD Yeast OCCASIONAL Abnormal NONE [facility] Comment on above: Performed By: #### Julien DAVIDSON [facility] #### [facility] [address] [place], [place] [phone] Staff [employer] Officer: Zayra Chapman MD Auto Diffon 12-06-2022 Basophils/100 WBC (Bld) 0.8 % Normal 0.0-2.0 F [facility] Comment on above: Order Comment: Order Added by Discern Expert. Performed By: #### 2 [id number], [id number], [id number], [id number] #### [facility] [address] [place] [address] Basophils/Leukocytes Auto (Bld) [Pure # fraction] 0.1 E9/L Normal 0.0-0.2 [facility] Comment on above: Order Comment: Order Added by Discern Expert. Performed By: #### 2 [id number], [id number], [id number], [id number] #### [facility] [address] [place] [address] Eosinophils/100 WBC (Bld) 0.3 % Normal 0.0-8.0 [facility] Comment on above: Order Comment: Order Added by Discern Expert. Performed By: #### 2 866345, [id number], [id number], [id number] #### [facility] [address] [place] [address] Eosinophils/Leukocytes Auto (Bld) [Pure # fraction] 0.0 E9/L Normal 0.0-0.5 [facility] Comment on above: Order Comment: Order Added by Discern Expert. Performed By: #### 2 [id number], [id number], [id number], [id number] #### [facility] [address] [place] [address] Lymphocytes/100 WBC (Bld) 12.5 % Low 14.0-50.0 [facility] Comment on above: Order Comment: Order Added by Discern Expert. Performed By: #### 2 [id number], [id number], [id number], [id number] #### [facility] [address] [place] [address] Lymphocytes/Leukocytes Auto (Bld) [Pure # fraction] 1.3 E9/L Normal 1.0-4.0 [facility] Comment on above: Order Comment: Order Added by Discern Expert. Performed By: #### 2 647174, [id number], [id number], [id number] #### [facility] [address] [place] [address] Monocytes/100 WBC (Bld) 4.5 % Normal 4.0-14.0 [facility] Comment on above: Order Comment: Order Added by Discern Expert. Performed By: #### 2 584394, 8906830, [id number], [id number] #### [facility] [address] [place] [address] Monocytes/Leukocytes Auto (Bld) [Pure # fraction] 0.5 E9/L Normal 0.2-1.0 [facility] Comment on above: Order Comment: Order Added by Discern Expert. Performed By: #### 2 405445, [id number], [id number], [id number] #### [facility] [address] [place] [address] Neutrophils/100 WBC (Bld) 81.9 % High 36.0-75.0 [facility] Comment on above: Order Comment: Order Added by Discern Expert. Performed By: #### 2 089493, [id number], [id number], [id number] #### [facility] [address] [place] [address] Neutrophils/Leukocytes Auto (Bld) [Pure # fraction] 8.8 E9/L High 2.0-7.5 [facility] Comment on above: Order Comment: Order Added by Discern Expert. Performed By: #### 2 [id number], 1477781, [id number], [id number] #### [facility] [address] [place] [address] CBC w/ Auto Diffon Erythrocyte distribution width (RBC) [Ratio] 13.9 % Normal 10.9-14.2 [facility] Comment on above: Performed By: #### 2 423052, [id number], [id number], [id number] #### [facility] [address] [place] [address] Hematocrit (Bld) [Volume fraction] 42.7 % Normal 34.0-46.0 [facility] Comment on above: Performed By: #### 2 515061, [id number], [id number], [id number] #### [facility] Laboratory [address] [place] [address] Hemoglobin (Bld) [Mass/Vol] 14.2 g/dL Normal 12.0-16.0 [facility] Comment on above: Performed By: #### 2 013885, [id number], 6475968, [id number] #### [facility] Laboratory [address] [place] [address] 01649 MCH (RBC) [Entitic mass] 26.8 pg Low 27.0-34.0 [facility] Comment on above: Performed By: #### 2 054685, 5384113, 8306664, [id number] #### [facility] Laboratory [address] [place] [address] MCHC (RBC) [Mass/Vol] 33.2 g/dL Normal 31.4-36.0 [facility] Comment on above: Performed By: #### 2 333517, 1658872, 0107044, [id number] #### [facility] Laboratory [address] [place] [address]293 MCV (RBC) [Entitic vol] 80.8 fL Normal 80.0-100.0 F [facility] Comment on above: Performed By: #### 2 080718, 6503596, 5248527, [id number] #### [facility] Laboratory [address] [place] [address]4635 Platelet mean volume (Bld) [Entitic vol] 9.8 fL Normal 6.4-10.8 [facility] Comment on above: Performed By: #### 2 420654, 3582457, 6066327, 02668595 #### [facility] Laboratory [address] [place] [address] 36483 Platelets (Bld) [#/Vol] 252.0 E9/L Normal 150.0-500.0 [facility] Comment on above: Performed By: #### 2 140417, 3442870, 0834314, 86480532 #### [facility] Laboratory [address] [place] [address] 40315 RBC (Bld) [#/Vol] 5.3 E12/L Normal 4.3-5.9 [facility] Comment on above: Performed By: #### 2 458582, 4990617, 8120188, 65591524 #### [facility] Laboratory [address] [place] [address] 21710 WBC corrected for nucl RBC Auto (Bld) [#/Vol] 10.7 E9/L Normal 4.0-11.[address] [facility] Comment on above: Performed By: #### 2 554374, 9120325, 8263998, 66911198 #### [facility] Laboratory [address] [place] [address] CHEMISTRYOrdered By: SYSTEM SYSTEM on 12-06-2022 Albumin [...] 12-06-2022 Albumin [Mass/Vol] 4.2 g/dL Normal 3.3-5.0 [facility] Comment on above: Performed By: #### 2 628122, 8851500, 8952972, [id number] #### [facility] Laboratory [address] [place] [address] Albumin/Globulin (S) [Mass conc ratio] 1.2 Normal 1.1-2.2 [facility] Comment on above: Performed By: #### 2 731945, 6983569, 7473133, 43376807 #### [facility] Laboratory [address] [place] [address] ALP [Catalytic activity/Vol] 117 Int._Unit/L High 21-98 [facility] Comment on above: Performed By: #### 2 106319, 1673435, 7545298, 69430242 #### [facility] Laboratory [address] [place] [address] ALT No additional P-5'-P [Catalytic activity/Vol] 78 Int._Unit/L High 6-46 [facility] Comment on above: Performed By: #### 2 318982, 3631525, 0442810, 67320591 #### [facility] Laboratory [address] [place] [address] AST [Catalytic activity/Vol] 68 Int._Unit/L High 5-43 [facility] Comment on above: Performed By: #### 2 304862, 4388386, 7824703, 55598618 #### [facility] Laboratory [address] [place] [address] Bilirubin [Mass/Vol] 0.7 mg/dL Normal 0.0-1.1 [facility] Comment on above: Performed By: #### 2 400561, 0142267, 1310584, 50869235 #### [facility] Laboratory [address] [place] [address] Creatinine [Mass/Vol] 0.8 mg/dL Normal 0.5-1.3 [facility] Comment on above: Performed By: #### 2 866256, 3556829, 7701782, 88609201 #### [facility] Laboratory [address] [place] [address] Globulin (S) [Mass/Vol] 3.6 g/dL Normal 1.4-4.0 [facility] Comment on above: Performed By: #### 2 914540, 0451506, 9910803, 44565134 #### [facility] Laboratory [address] [place] [address] Protein [Mass/Vol] 7.8 g/dL Normal 6.0-7.8 [facility] Comment on above: Performed By: #### 2 358745, 2064992, 8616142, 70971521 #### [facility] Laboratory [address] [place] [address] Urea nitrogen [Mass/Vol] 12 mg/dL Normal 5-21 [facility] Comment on above: Performed By: #### 2 746138, 9434629, 1482903, 74031608 #### [facility] Laboratory [address] [place] [address] Urea nitrogen/Creatinine [Mass ratio] 15 No Units Normal 10-20 [facility] Comment on above: Performed By: #### 2 377372, 9718576, 7245977, 98116647 #### [facility] Laboratory [address] [place] [address] Anion gap [Moles/Vol] 15 mmol/L Normal 6-16 [facility] Comment on above: Performed By: #### 2 841378, 5264932, 1444290, 68373694 #### [facility] Laboratory [address] [place] [address] Calcium [Mass/Vol] 9.6 mg/dL Normal 8.9-11.1 [facility] Comment on above: Performed By: #### 2 556793, 1390788, 0139305, 18673701 #### [facility] Laboratory [address] [place] [address] Chloride [Moles/Vol] 104 mmol/L Normal 101-111 [facility] Comment on above: Performed By: #### 2 105646, 5889883, 4994886, 74014522 #### [facility] Laboratory [address] [place] [address] CO2 [Moles/Vol] 22 mmol/L Normal 21-[address] [facility] Comment on above: Performed By: #### 2 437528, 8350481, 0539705, 32089329 #### [facility] Laboratory [address] [place] [address] Glucose [Mass/Vol] 244 mg/dL High 55-199 [facility] Comment on above: Result Comment: If t his glucose result represents a fasting glucose, interpretation should refer to the following reference range: 55-99 mg/dL Performed By: #### 2 813077, 1567313, 9069589, 32590383 #### [facility] Laboratory [address] [place] [address] Potassium [Moles/Vol] 4.3 mmol/L Normal 3.5-5.3 [facility] Comment on above: Performed By: #### 2 281411, 8160044, 5203365, 68313933 #### [facility] Laboratory [address] [place] [address] Sodium [Moles/Vol] 137 mmol/L Normal 135-145 [facility] Comment on above: Performed By: #### 2 029432, 3090541, 3185792, 98814558 #### [facility] Laboratory [address] [place] [address] Consent for Treatmenton 08 Consent for Treatment [id number] .00CD:127 Normal [facility] Discharge Instructionson Discharge Instructions [id number] 1.00CD:127 Normal [facility] ED Clinical Summaryon 2022 ED Clinical Summary [address] [address] ED Clinical Summary Person Information Name: RIRI DEMPSEY/[facility] Age: 27 Years : 1995 Sex: Female Language: [place] PCP: GAYE BARROS Marital Status: Single Visit [...] 12/06/2022 16:43:40 12/06/2022 16:43:40 12/06/2022 16:43:40 ADDRESS: [place] [facility] [id number] [facility] DOC NOTES: MEDICAL INFORMATION: Prescriptions Given: Medications to Continue with No Changes Other Medications venlafaxine (Effexor XR 150 mg Cap-ER) PATIENT EDUCATION INFORMATION: Instructions: Suicidal Feelings: How to Help Yourself Follow up: With: Address: When: [facility] In 3 days 12/09/2022 Comments: Follow safety plan. Return to the emergency department with any worsening symptoms. With: Address: When: GAYE JOSUE [address] [id number] [facility] () In 3 days 12/09/2022 Comments: Call [...] in 1 month. DIAGNOSIS: Situational stress Normal [facility] ED Note-Physicianon 12-07-19 ED Note-Physician Basic Information Time Seen: Дмитрий RICHMOND Graham CarrascoAlessia 12/06/2022 13:27 Chief Complaint patient brought in by [employer] for psychiatric evaluation from peds office. patient expressed thoughts of harming herself to peds office. peds called priyank [facility]. patient expressing stress from costudy hearing yesterday. History of Present Illness 27-year-old female to the emergency department with chief complaint of needing psychiatric evaluation. 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 Vital stable, the patient is afebrile. Medical clearance labs are ordered. She has slight elevation of ALT and AST without any abdominal pain. Unclear the chronicity. She also is hyperglycemic on these nonfasting labs. These findings were discussed with patient she will follow with her PCP about it. P evaluated the patient. They spoke to collateral [...] prescription medications Follow-up With When Contact Information [facility] In 3 days 12/09/2022 EDT Additional Instructions: Follow safety plan. Return to the emergency department with any worsening symptoms. GAYE JOSUE In 3 days 12/09/2022 EDT [address] [facility] (1) Additional Instructions: Call the office of [...] Known Medica (more content not included)... Normal [facility] Comment on above: Result Comment: Elec tronically [...] (911 in the [place] ? Call the [facility] and human services helpline (211 in the [place] ? Call or text a suicide hotline to speak with a trained counselor. The following suicide hotlines are available in the [place]: ? 0-081-421-TALK ( or 348 in the [place] ? 5-900-YLUIIEZ ( ). ? Text 999684. This is the Crisis Text Line in the [place] ? . This is a hotline for Israeli speakers. ? . This is a hotline for TTY users. ? 0-972-8-U-YASHIRA ( ). This is a hotline for [...] anyone or being with other people. ? Mewt-rf-dtku conversation is best to help them understand [...] and a mental health checkup. ? Take gvux-ece-ulcckso and prescription medicines only as told by [...] will hel (more content not included)... Normal [facility] ED Patient Summaryon 023 ED Patient Summary [place] [id number] Patient Discharge Instructions Person Information Name: RIRI DEMPSEY Age: 27 Years Arrival Date: 12/06/2022 13:19:47 Discharge Diagnosis: Situational stress Primary Care Physician: GAYE BARROS Provider Information Primary Provider: Graham Choe DO [employer] Bl[employer]:None The exam and treatment you received in the Emergency Department were for an urgent problem and are not intended as complete care. It is important that you follow up with a doctor, nurse practitioner, or physician?s periodontal assistant for ongoing care. If your symptoms become worse or you do not improve as expected and you are unable to reach your usual health care provider, you should return to the Emergency Department. We are available 24 hours a day. RIRI DEMPSEY has been given the following list of patient education materials, prescriptions and follow-up instructions: Follow-up Instructions: With: Address: When: [facility] In 3 days 12/09/2022 Comments: Follow safety plan. Return to the emergency department with any worsening symptoms. With: Address: When: GAYE JOSUE [address] [id number] [facility] ([facility] In 3 days 12/09/2022 Comments: Call the [...] opioids can be used to help relieve shoflkxc-ps-xoiwrp pain and are often prescribed following a [...] and katja (more content not included)... Normal [facility] Ethanolon 12-06-2022 Ethanol [Mass/Vol] mg/dL Normal <=7 [facility] Comment on above: Performed By: #### 2 [id number] ####[facility] [address] [place] [address] HEMATOLOGYOrdered By: SYSTEM SYSTEM on 12-06-2022 Basophils/100 WBC (Bld) 0.8 % Normal 0.0 - 2.0 % [facility] HemeAutoSS Basophils/Leukocytes Auto (Bld) [Pure # fraction] [...] E9/L Normal 150. 0 - 500.0 E9/L [facility] HemeAutoSS RBC (Bld) [#/Vol] 5.3 E12/L Normal 4.3 - 5.9 E12/L [facility] HemeAutoSS WBC corrected for nucl RBC Auto (Bld) [#/Vol] 10.7 E9/L Normal 4.0 - 11.0 E9/L [facility] HemeAutoSS Progress Note-Nurseon 2022 Progress Note-Nurse [facility] called to clear patient- instructed safety plan in prog. 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 conversation with [employer] at time of arrival Normal [facility] SEROLOGYOrdered By: Antonio Stevens on 12-06-2022 HCG.beta subunit (U) [Moles/Vol] Negative Normal [facility] Man Sero U BetaHcg Qualon 12-06-2022 HCG.beta subunit (U) [Moles/Vol] Negative Normal [facility] Comment on above: Performed By: #### 2 [id number] #### [facility] Laboratory [address] [place] [address] U Drug Screenon 12-06-2022 Benzodiazepines Ql (U) Positive Abnormal Negative Fi [facility] Comment on above: Result Comment: Crit ical Result verified by repeat analysis\No confirmation requested by Physican\Unconfirmed by alternate method\Critical Result UD_BENZ:POS Called to [facility] AT ER by JOEL STEVENS And Read Back For Confirmation at: 12/06/2022 14:42:33 Negative Cutoff: <200 ng/mL Performed By: #### 2 292469 ####[facility] [address] [place] [address] Tetrahydrocannabinol Screen method >50 ng/mL Ql (U) Positive Abnormal Negative [facility] Comment on above: Result Comment: Crit ical Result verified by repeat analysis\No confirmation requested by Physican\Unconfirmed by alternate method\Critical Result UD_THC:POS Called to [facility] AT ER by JOEL STEVENS And Read Back For Confirmation at: 12/06/2022 14:42:33 Negative Cutoff: <50 ng/mL Performed By: #### 2 512157 ####[facility] [address] [place] [address] Amphetamines Screen method >1000 ng/mL Ql (U) Negative Normal Negative [facility] Comment on above: Result Comment: Nega tive Cutoff: <1000 ng/mL Performed By: #### 2 039408 ####[facility] [address] [place] [address] Barbiturates Screen Ql (U) Negative Normal Negative [facility] Comment on above: Result Comment: Nega tive Cutoff: <200 ng/mL Performed By: #### 2 068716 ####[facility] [address] [place] [address] Cocaine Ql (U) Negative Normal Negative [facility] Comment on above: Result Comment: Nega tive Cutoff: <300 ng/mL Performed By: #### 2 530062 ####[address] [place] [address] Opiates Screen Ql (U) Negative Normal Negative [facility] Comment on above: Result Comment: Nega tive Cutoff: <300 ng/mL Performed By: #### 2 332174 ####[facility] [address] [place] [address] Phencyclidine Screen method >25 ng/mL Ql (U) Negative Normal Negative [facility] Comment on above: Result Comment: Nega tive Cutoff: <25 ng/mL These drug screen results are to be used for medical (i.e., treatment) purposes only. Unconfirmed drug screening results must not be used for non-medical purposes (e.g., employment testing, legal testing). Performed By: #### 2 454953 ####[facility] [address] [place] [address] eGFRon 12-06-2022 GFR/1.73 sq M.predicted among non-blacks MDRD (S/P/Bld) [Vol rate/Area] 105 mL/min/1.73 m2 Normal >=59 [facility] Comment on above: Order Comment: Order added by Discern Expert. Result Comment: Postal Inspector dayanna kidney disease could be indicated at eGFR's of less than 60 mL/min/1.73m2. Kidney failure is indicated at less than 15 mL/min/1.73m2. Performed By: #### 2 817508, 3155780, 0487539, 13884129 ####[facility] [address] [place] [address] Basic Metabolic Panelon 06-05 Anion gap [Moles/Vol] 11 mmol/L 9 - 17 mmol/L [facility] Calcium [Mass/Vol] 9.5 mg/dL 8.6 - 10. 4 mg/dL [facility] Chloride [Moles/Vol] 103 mmol/L 98 - 10 7 mmol/L [facility] CO2 [Moles/Vol] 27 mmol/L 20 - 31 mmol/L [facility] Creatinine [Mass/Vol] 0.57 mg/dL 0.50 - 0.90 mg/dL [facility] GFR/1.73 sq M.predicted MDRD (S/P/Bld) [Vol rate/Area] - PINF [facility] Comment on above: These results are not [...] 154 mg/dL High 70 - 99 mg/dL [facility] Interpretation and review of laboratory results Abnormal [facility] Potassium [Moles/Vol] 4.2 mmol/L 3.7 - 5.3 mmol/L [facility] Sodium [Moles/Vol] 141 mmol/L 135 - 144 mmol/L [facility] Urea nitrogen [Mass/Vol] 12 mg/dL 6 - 20 mg/dL [facility] Urea nitrogen/Creatinine (Bld) [Mass ratio] 21 High 9 - 20 [facility] CBC with Auto Differentialon 06-16-2022 Absolute Eos # 0.10 [facility] Absolute Lymph # 1.90 [facility] Absolute [place] # 0.40 [facility] [employer] Basophils (Bld) [#/Vol] 0.00 10*3/uL [facility] Basophils/100 WBC (Bld) 1 % 0 - 2 % [facility] Differential Type YES [facility] Eosinophils/100 WBC (Bld) 1 % 0 - 5 % [facility] Hematocrit (Bld) [Volume fraction] 40.3 % 36 - 46 % [facility] Hemoglobin (Bld) [Mass/Vol] 13.0 g/dL 12.0 - 16.0 g/dL [facility] Lymphocytes/100 WBC (Bld) 23 % 15 - 40 % [facility] MCH (RBC) [Entitic mass] 27.2 pg 26 - 34 pg [facility] MCHC (RBC) [Mass/Vol] 32.4 g/dL 31 - 3 7 g/dL [facility] MCV (RBC) [Entitic vol] 84.1 fL 80 - 100 fL [facility] Monocytes/100 WBC (Bld) 5 % 4 - 8 % [facility] Platelet distribution width (Bld) [Ratio] 13.9 % 12.1 - 15.2 % [facility] Platelets (Bld) [#/Vol] 225 10*3/uL [facility] RBC (Bld) [#/Vol] 4.79 10*6/uL 4.0 - 5.2 m/uL [facility] Segmented neutrophils/100 WBC (Bld) 70 % 47 - 75 % [facility] Segs Absolute 5.70 [facility] WBC (Bld) [#/Vol] 8.2 10*3/uL [facility] HEAD WO CONTRASTon 2022 No acute intracranial abnormality. FOLLOW-UP: Follow-up as clinically indicated. [facility] RIS CONSOLIDATED EXAM: CT HEAD WO CONTRAST 06/16/2022 2:34 AM EST [facility] CLINICAL STATEMENT: Has a code stroke or [...] orbits and the paranasal sinuses are normal. [facility] Trang Hill MD - 06/16/2022 EXAM: CT HEAD WO CONTRAST 06/16/2022 2:34 AM EST W CLINICAL STATEMENT: Has a code stroke or [...] intracranial abnormality. FOLLOW-UP: Follow-up as clinically indicated. [employer] Work Phone: Radiology Study observation (narrative) JULIANO [employer] Work Phone: CT HEAD WO CONTRASTOrdered B y: Trang Mcgregor on 06-16-2022 [employer] Work Phone: HCG Qualitative, Serumon hCG Qual Negative NEGATIVE [employer] Comment on above: Specimens with hCG l evels near the threshold of the test (25 mIU/mL) may give a negative or indeterminate result. In such cases, another test should be performed with a new specimen in 48-72 hours. If early is suspected clinically in this setting, correlation with quantitative serum b-hCG level is suggested. [employer] has confirmed the use of plasma for this test. This has not been cleared or approved by the U.S. Food and Drug Administration. The FDA has determined that such clearance is not necessary. [employer] Urinalysison 06-16-2022 Bilirubin Urine Negative NEGATIVE [facility] Color, UA Yellow Yellow [facility] Glucose Auto test strip (U) [Mass/Vol] Negative NEGATIVE [facility] Interpretation and review of laboratory results Abnormal [facility] Ketones (U) [Mass/Vol] Negative NEGATIVE [facility] Leukocyte esterase Auto test strip Ql (U) Negative NEGATIVE [facility] Nitrite Auto test strip Ql (U) Negative NEGATIVE [facility] Protein (U) [Mass/Vol] 7.0 mg/dL 5.0 - 8.0 [facility] Protein (U) [Mass/Vol] TRACE Abnormal NEGATIVE [facility] Specific Fleming, UA 1.005 1.005 - 1.030 [facility] Turbidity UA Clear Clear [facility] Urinalysis Comments [facility] Urine Hgb Negative NEGATIVE [facility] Urobilinogen, Urine Normal Normal [facility] XR LUMBAR SPINE (MIN 4 VIEWS )on 03-13-2022 No degenerative change, discitis or fracture. [facility] CONSOLIDATED EXAM: XR LUMBAR SPIN E (MIN 4 VIEWS) HISTORY: Reason for exam:->midline low back pain [facility] CONSOLID[facility] Quinn Roberto Jr., MD - 03/13/2022 EXAM: XR LUMBAR SPINE (MIN 4 VIEWS) HISTORY: Reason for exam:->midline low back pain IMPRESSION: No degenerative change, discitis or fracture. [facility] Work Phone: Radiology Study observation (narrative) [facility] Work Phone: XR LUMBAR SPINE (MIN 4 VIEWS )Ordered By: Quinn Roberto on 03-13-2022 [facility] Work Phone: CBC AUTO DIFFon 10-04-2021 BASO # 0.0 103/ul Normal 0.0-0.1 [facility] Comment on above: Performed By: #### H H #### [facility] [address] [address] [address] Ramya Ramey Basophils/100 WBC (Bld) 0.2 % Normal 0.2-2.0 [facility] Comment on above: Performed By: #### H H #### [facility] [address] [place] [address] Dr. Ramya Ramey EO # 0.1 103/ul Normal 0.0-0.7 [facility] Comment on above: Performed By: #### H H #### [facility] [address] [place] [address] Dr. Ramya Ramey Eosinophils/100 WBC (Bld) 0.7 % Critically low 0.9-7.0 [facility] Comment on above: Performed By: #### H H #### [facility] [address] [place] [address] Dr. Ramya Ramey Erythrocyte distribution width (RBC) [Ratio] 13.4 % Normal 11.0-15.0 [facility] Comment on above: Performed By: #### H H #### [facility] [address] [place] [address] Dr. Ramya Ramey Hematocrit (Bld) [Volume fraction] 29.4 % Critically low 36.0-48.0 [facility] Comment on above: Performed By: #### H H #### [facility] [address] [place] [address] Dr. Ramya Ramey Hemoglobin (Bld) [Mass/Vol] 9.5 g/dL Critically low 12.0-16.0 [facility] Comment on above: Performed By: #### H H #### [facility] [address] [place] [address] Dr. Ramya Ramey IG # 0.06 10e3/ul Critically high 0.00-0.03 [facility] Comment on above: Performed By: #### H H #### [facility] [address] [place] [address] Dr. Ramya Ramey IG % 0.5 % Normal 0.0-0.5 [facility] Comment on above: Performed By: #### H H #### [facility] [address] [place] [address] Dr. Ramya Ramey LYMPH # 1.3 103/ul Normal 1.2-3.8 [facility] Comment on above: Performed By: #### H H #### [facility] [address] [place] [address] Dr. Ramya Ramey Lymphocytes/100 WBC (Bld) 11.5 % Critically low 20.5-60.0 [facility] Comment on above: Performed By: #### H H #### [facility] [address] [place] [address] Dr. Ramya Ramey MANUAL DIFF REQ NO Normal [facility] Comment on above: Performed By: #### H H #### [facility] [address] [place] [address] Dr. Ramya Ramey MCH (RBC) [Entitic mass] 28.4 pg Normal 26.7-34.0 [facility] Comment on above: Performed By: #### H H #### [facility] [address] [place] [address] Dr. Ramya Ramey MCHC (RBC) [Mass/Vol] 32.3 g/dL Normal 29.9-35.2 [facility] Comment on above: Performed By: #### H H #### [facility] [address] [place] [address] Dr. Ramya Ramey MCV (RBC) [Entitic vol] 88.0 fL Normal 81.0-99.0 [facility] Comment on above: Performed By: #### H H #### [facility] [address] [place] [address] Dr. Ramya Ramey MONO # 0.7 103/ul Normal 0.3-0.8 [facility] Comment on above: Performed By: #### H H #### [facility] [address] [place] [address] Dr. Ramya Ramey Monocytes/100 WBC (Bld) 5.9 % Normal 1.7-12.0 [facility] Comment on above: Performed By: #### H H #### [facility] [address] [place] [address] Dr. Ramya Ramey NEUT # 9.4 103/ul Critically high 1.4-6.5 [facility] Comment on above: Performed By: #### H H #### [facility] [address] [place] [address] Dr. Ramya Ramey Neutrophils/100 WBC (Bld) 81.2 % Critically high 43.0-75.0 [facility] Comment on above: Performed By: #### H H #### [facility] [address] [place] [address] Dr. Ramya Ramey Platelet mean volume (Bld) [Entitic vol] 11.9 fL Normal 9.5-13.5 [facility] Comment on above: Performed By: #### H H #### [facility] [address] [place] [address] Dr. Ramya Ramey PLT 162 103/ul Normal 150-450 [facility] Comment on above: Performed By: #### H H #### [facility] [address] [place] [address] Dr. Ramya Ramey RBC 3.34 106/ul Critically low 4.20-5.40 [facility] Comment on above: Performed By: #### H H #### [facility] [address] [place] [address] Dr. Ramya Ramey WBC 11.5 103/ul Critically high 4.0-11.0 [facility] Comment on above: Performed By: #### H H #### [facility] [address] [place] [address] Dr. Ramya Ramey CBC AUTO DIFFon 10-03-2021 BASO # 0.0 103/ul Normal 0.0-0.1 [facility] Comment on above: Performed By: #### H H #### [facility] [address] [place] [address] Dr. Ramya Ramey Basophils/100 WBC (Bld) 0.2 % Normal 0.2-2.0 [facility] Comment on above: Performed By: #### H H #### [facility] [address] [place] [address] Dr. Ramya Ramey EO # 0.1 103/ul Normal 0.0-0.7 [facility] Comment on above: Performed By: #### H H #### [facility] [address] [place] [address] Dr. Ramya Ramey Eosinophils/100 WBC (Bld) 0.9 % Normal 0.9-7.0 [facility] Comment on above: Performed By: #### H H #### [facility] [address] [place] [address] Dr. Ramya Ramey Erythrocyte distribution width (RBC) [Ratio] 13.3 % Normal 11.0-15.0 [facility] Comment on above: Performed By: #### H H #### [facility] [address] [place] [address] Dr. aRmya Ramey Hematocrit (Bld) [Volume fraction] 34.8 % Critically low 36.0-48.0 [facility] Comment on above: Performed By: #### H H #### [facility] [address] [place] [address] Dr. Ramya Ramey Hemoglobin (Bld) [Mass/Vol] 11.2 g/dL Critically low 12.0-16.0 [facility] Comment on above: Performed By: #### H H #### [facility] [address] [place] [address] Dr. Ramya Ramey IG # 0.07 10e3/ul Critically high 0.00-0.03 [facility] Comment on above: Performed By: #### H H #### [facility] [address] [place] [address] Dr. Ramya Ramey IG % 0.6 % Critically high 0.0-0.5 [facility] Comment on above: Performed By: #### H H #### [facility] [address] [place] [address] Dr. Ramya Ramey LYMPH # 1.5 103/ul Normal 1.2-3.8 [facility] Comment on above: Performed By: #### H H #### [facility] [address] [place] [address] Dr. Rayma Ramey Lymphocytes/100 WBC (Bld) 13.4 % Critically low 20.5-60.0 [facility] Comment on above: Performed By: #### H H #### [facility] [address] [place] [address] Dr. Ramya Ramey MANUAL DIFF REQ NO Normal [facility] Comment on above: Performed By: #### H H #### [facility] [address] [place] [address] Dr. Ramya Ramey MCH (RBC) [Entitic mass] 28.3 pg Normal 26.7-34.0 [facility] Comment on above: Performed By: #### H H #### [facility] [address] [place] [address] Dr. Ramya Ramey MCHC (RBC) [Mass/Vol] 32.2 g/dL Normal 29.9-35.2 [facility] Comment on above: Performed By: #### H H #### [facility] [address] [place] [address] Dr. Ramya Ramey MCV (RBC) [Entitic vol] 87.9 fL Normal 81.0-99.0 [facility] Comment on above: Performed By: #### H H #### [facility] [address] [place] [address] Dr. Ramya Ramey MONO # 0.5 103/ul Normal 0.3-0.8 [facility] Comment on above: Performed By: #### H H #### [facility] [address] [place] [address] Dr. Ramya Ramey Monocytes/100 WBC (Bld) 4.8 % Normal 1.7-12.0 [facility] Comment on above: Performed By: #### H H #### [facility] [address] [place] [address] Dr. Ramya Ramey NEUT # 8.9 103/ul Critically high 1.4-6.5 [facility] Comment on above: Performed By: #### H H #### [facility] [address] [place] [address] Dr. Ramya Ramey Neutrophils/100 WBC (Bld) 80.1 % Critically high 43.0-75.0 [facility] Comment on above: Performed By: #### H H #### [facility] [address] [place] [address] Dr. Ramya Ramey Platelet mean volume (Bld) [Entitic vol] 11.8 fL Normal 9.5-13.5 [facility] Comment on above: Performed By: #### H H #### [facility] [address] [place] [address] Dr. Ramya Ramey PLT 194 103/ul Normal 150-450 [facility] Comment on above: Performed By: #### H H #### [facility] [address] [place] [address] Dr. Ramya Ramey RBC 3.96 106/ul Critically low 4.20-5.40 [facility] Comment on above: Performed By: #### H H #### [facility] [address] [place] [address] Dr. Ramya Ramey WBC 11.1 103/ul Critically high 4.0-11.0 [facility] Comment on above: Performed By: #### H H #### [facility] [address] [place] [address] Dr. Ramya Ramey Covid-19 PCR ([facility])on SARS-CoV-2 (COVID-19) RNA JAKE+probe Ql (Unsp spec) Not detected Normal NOT DETECTED [facility] Comment on above: Result Comment: When [...] for this test is supported by the [place] of Health and Human Service's declaration that [...] used). Performed By: #### H H #### [facility] [address] [place] [address] Dr. Ramya Ramey DRUG SCREEN RAPID (URINE)on 10-03-2021 AMP Negative Normal NEGATIVE [facility] Comment on above: Performed By: #### H H #### [facility] [address] [place] [address] Dr. Ramya Ramey BAR Negative Normal NEGATIVE [facility] Comment on above: Performed By: #### H H #### [facility] [address] [place] [address] Dr. Ramya Ramey BUP Negative Normal NEGATIVE [facility] Comment on above: Performed By: #### H H #### [facility] [address] [place] [address] Dr. Ramya Ramey BZO Negative Normal NEGATIVE [facility] Comment on above: Performed By: #### H H #### [facility] [address] [place] [address] Dr. Ramya Ramey ANIBAL Negative Normal NEGATIVE [facility] Comment on above: Performed By: #### H H #### [facility] [address] [place] [address] Dr. Ramya Ramey CUT-OFFS SEE BELOW Normal [facility] Comment on above: Result Comment: AMP [...] ng/mL Performed By: #### H H #### [facility] [address] [address] [address] Ramya Ramey DRUG CUT HEADER DRUG CLASS TEST SYSTEM CUT-OFF CONCENTRATIONS ARE FOLLOWS: Normal [facility] Comment on above: Performed By: #### H H #### [facility] [address] [address] [address] Ramya Ramey mAMP Negative Normal NEGATIVE [facility] Comment on above: Performed By: #### H H #### [facility] [address] [address] [address] Ramya Ramey MTD Negative Normal NEGATIVE [facility] Comment on above: Performed By: #### H H #### [facility] [address] [place] [address] Dr. Ramya Ramey OPI Negative Normal NEGATIVE [facility] Comment on above: Performed By: #### H H #### [facility] [address] [place] [address] Dr. Ramya Ramey OXY Negative Normal NEGATIVE [facility] Comment on above: Performed By: #### H H #### [facility] [address] [place] [address] Dr. Ramya Ramey PCP Negative Normal NEGATIVE [facility] Comment on above: Performed By: #### H H #### [facility] [address] [place] [address] Dr. Ramya Ramey PPX Negative Normal NEGATIVE [facility] Comment on above: Performed By: #### H H #### [facility] [address] [place] [address] Dr. Ramya Ramey TCA Negative Normal NEGATIVE [facility] Comment on above: Performed By: #### H H #### [facility] [address] [address] [address] Ramya Ramey THC Negative Normal NEGATIVE [facility] Comment on above: Performed By: #### H H #### [facility] [address] [place] [address] Dr. Ramya Ramey POINT OF CARE GLUCOSEon 06-0 Glucose [Mass/Vol] 126 mg/dL Critically high 74-106 [facility] Comment on above: Performed By: #### P OCGLUC #### [facility] [address] [address] [address] Ramya Ramey TYPE AND SCREENon 10-03-2021 TYPE AND SCREEN Negative Normal [facility] Comment on above: Performed By: #### P OCGLUC #### [facility] [address] [place] [address] Dr. Ramya Ramey CULTURE URINEon 10-01-2021 CULTURE URINE Culture Observations : LIGHT GROWTH OF MIXED GENITAL LEANA. NO POTENTIAL PATHOGENS SEEN. Normal [facility] Comment on above: Performed By: #### P OCGLUC #### [facility] [address] [place] [address] Dr. Ramya Ramey POINT OF CARE GLUCOSEon 09-04 Glucose [Mass/Vol] 134 mg/dL Critically high 74-106 [facility] Comment on above: Performed By: #### P OCGLUC #### [facility] [address] [place] [address] Dr. Ramya Ramey UA (CLEAN/CATCH) PAPER CUP HANDLE MACHINE OPERATOR/MICRO I F IND.on 10-01-2021 Bilirubin Ql (U) Negative Normal NEGATIVE [facility] Comment on above: Performed By: #### U ACSIND UMICRO #### [facility] [address] [place] [address] Dr. Ramya Ramey Clarity (U) CLEAR Normal CLEAR [facility] Comment on above: Performed By: #### U ACSIND, UMICRO #### [facility] [address] [place] [address] Dr. Ramya Ramey Color (U) YELLOW Normal YELLOW [facility] Comment on above: Performed By: #### U ACSIND, UMICRO #### [facility] [address] [place] [address] Dr. Ramya Ramey Glucose Ql (U) Negative Normal NEGATIVE [facility] Comment on above: Performed By: #### U ACSIND, UMICRO #### [facility] [address] [place] [address] Dr. Ramya Ramey Hemoglobin Ql (U) Negative Normal NEGATIVE [facility] Comment on above: Performed By: #### U ACSIND, UMICRO #### [facility] [address] [address] [address] Ramya Ramey Ketones Ql (U) Negative Normal NEGATIVE [facility] Comment on above: Performed By: #### U ACSIND, UMICRO #### [facility] [address] [address] [address] Ramya Ramey LEUKOCYTES LARGE Abnormal NEGATIVE [facility] Comment on above: Performed By: #### U ACSCLOVER, UMICRO #### [facility] [address] [address] [address] Ramya Ramey Nitrite Ql (U) Negative Normal NEGATIVE [facility] Comment on above: Performed By: #### U ACSCLOVER UMICRO #### [facility] [address] [place] [address] Dr. Ramya Ramey pH (U) 6.5 [pH] Normal 5-9 [facility] Comment on above: Performed By: #### U ACSCLOVER UMICRO #### [facility] [address] [place] [address] Dr. Ramya Ramey SPEC GRAVITY 1.010 Normal 1.005-<=1.[address] [place] [address] Comment on above: Performed By: #### U ACSCLOVER UMICRO #### [facility] [address] [place] [address] Dr. Ramya Ramey UA PROTEIN Negative Normal NEGATIVE/ TRACE [facility] Comment on above: Performed By: #### U ACSCLOVER UMICRO #### [facility] [address] [place] [address] Dr. Ramya Ramey UR MICRO IND INDICATED Normal [facility] Comment on above: Performed By: #### U ACSCLOVER UMICRO #### [facility] [address] [place] [address] Dr. Ramya Ramey Urobilinogen Qn (U) 0.2 {Sariah'U}/dL Normal 0.2 - 1. 0 [facility] Comment on above: Performed By: #### U ACSCLOVER UMICRO #### [facility] [address] [place] [address] Dr. Ramya Ramey URINE MICROSCOPIC ONLYon BACTERIA LARGE Abnormal NONE SEEN [facility] Comment on above: Performed By: #### U ACSCLOVER, UMICRO #### [facility] [address] [place] [address] Dr. Ramya Ramey Bacteria identified Cx Nom (U) INDICATED Normal [facility] Comment on above: Performed By: #### U ACSCLOVER, UMICRO #### [facility] [address] [place] [address] Dr. Ramya Ramey CAST NONE SEEN Normal NONE SEEN [facility] Comment on above: Performed By: #### U ACSCLOVER UMICRO #### [facility] [address] [place] [address] Dr. Ramya Ramey Crystals LM Nom (Urine sed) NONE SEEN Normal NONE SEEN [facility] Comment on above: Performed By: #### U ACSCLOVER UMICRO #### [facility] [address] [place] [address] Dr. Ramya Ramey Epithelial cells LM Ql (Urine sed) MANY Abnormal NONE SEEN /RARE [facility] Comment on above: Performed By: #### U ACSCLOVER UMICRO #### [facility] [address] [place] [address] Dr. Ramya Ramey MUCOUS TRACE Abnormal NONE SEEN [facility] Comment on above: Performed By: #### U ACSCLOVER UMICRO #### [facility] [address] [place] [address] Dr. Ramya Ramey RBC 5-10 Abnormal 0-2 [facility] Comment on above: Performed By: #### U ACSCLOVER UMICRO #### [facility] [address] [place] [address] Dr. Ramya Ramey WBC 75-100 Abnormal NONE SEEN [facility] Comment on above: Performed By: #### U ACSCLOVER, UMICRO #### [facility] [address] [place] [address] Dr. Ramya Ramey GROUP B STREP CULTUREon [...] S F Tetracycline >=16 R F Normal [facility] Comment on above: Performed By: #### G BSCX #### [facility] [address] [place] [address] Dr. Ramya Ramey US PREG BIOPHY W [...] by: MARY CRAFT Date: 2021-09-26 10:40 Normal [facility] US PREG GROWTHon 09-26-2021 US PREG [...] by: MARY CRAFT Date: 2021-09-26 10:42 Normal [facility] US PREG BIOPHY W NON STRESSo [...] by: ZAYRA ORTIZ Date: 2021-09-20 07:12 Normal [facility] US PREG BIOPHY W NON STRESSo [...] by: MARY CRAFT Date: 2021-09-12 16:24 Normal [facility] US PREG BIOPHY W NON STRESSo [...] by: MARY CRAFT Date: 2021-09-05 16:47 Normal [facility] US PREG BIOPHY W NON STRESSo [...] by: ZAYRA ORTIZ Date: 2021-08-31 07:14 Normal [facility] US PREG BIOPHY W NON STRESSo [...] by: ZAYRA ORTIZ Date: 2021-08-30 07:11 Normal [facility] US PREG GROWTHon 08-30-2021 US PREG [...] by: ZAYRA ORTIZ Date: 2021-08-30 07:10 Normal [facility] CULTURE URINEon 08-24-2021 CULTURE URINE Culture Observations : MODERATE GROWTH OF MIXED GENITAL LEANA. NO POTENTIAL PATHOGENS SEEN. Normal [facility] Comment on above: Performed By: #### P OCGLUC #### [facility] [address] [place] [address] Dr. Ramya Ramey POINT OF CARE GLUCOSEon 08-04 Glucose [Mass/Vol] 132 mg/dL Critically high 74-106 T [facility] Comment on above: Performed By: #### H H #### [facility] [address] [place] [address] Dr. Ramya Ramey UA (CLEAN/CATCH) PAPER CUP HANDLE MACHINE OPERATOR/MICRO I F IND.on 08-24-2021 Bilirubin Ql (U) Negative Normal NEGATIVE [facility] Comment on above: Performed By: #### U ACSIND UMICRO #### [facility] [address] [place] [address] Dr. Ramya Ramey Clarity (U) CLEAR Normal CLEAR [facility] Comment on above: Performed By: #### U ACSIND, UMICRO #### [facility] [address] [place] [address] Dr. Ramya Ramey Color (U) YELLOW Normal YELLOW [facility] Comment on above: Performed By: #### U ACSIND, UMICRO #### [facility] [address] [place] [address] Dr. Ramya Ramey Glucose Ql (U) 250 mg/dl Abnormal NEGATIVE [facility] Comment on above: Performed By: #### U ACSIND UMICRO #### [facility] [address] [address] [address] Ramya Ramey Hemoglobin Ql (U) TRACE-INTACT Abnormal NEGATIVE [facility] Comment on above: Performed By: #### U ACSIND, UMICRO #### [facility] [address] [place] [address] Dr. Ramya Ramey Ketones Ql (U) Negative Normal NEGATIVE [facility] Comment on above: Performed By: #### U ACSIND, UMICRO #### [facility] [address] [place] [address] Dr. Ramya Ramey LEUKOCYTES MODERATE Abnormal NEGATIVE [facility] Comment on above: Performed By: #### U ACSIND UMICRO #### [facility] [address] [place] [address] Dr. Ramya Ramey Nitrite Ql (U) Negative Normal NEGATIVE [facility] Comment on above: Performed By: #### U ACSCLOVER UMICRO #### [facility] [address] [place] [address] Dr. Ramya Ramey pH (U) 6.0 [pH] Normal 5-9 [facility] Comment on above: Performed By: #### U ACSCLOVER UMICRO #### [facility] [address] [place] [address] Dr. Ramya Ramey SPEC GRAVITY 1.020 Normal 1.005-<=1.0 25 [facility] Comment on above: Performed By: #### U ACSCLOVER UMICRO #### [facility] [address] [place] [address] Dr. Ramya Ramey UA PROTEIN TRACE Normal NEGATIVE/ TRACE [facility] Comment on above: Performed By: #### U ACSIND UMICRO #### [facility] [address] [place] [address] Dr. Ramya Ramey UR MICRO IND INDICATED Normal [facility] Comment on above: Performed By: #### U ACSIND, UMICRO #### [facility] [address] [place] [address] Dr. Ramya Ramey Urobilinogen Qn (U) 0.2 {Sariah'U}/dL Normal 0.2 - 1. 0 [facility] Comment on above: Performed By: #### U ACSIND, UMICRO #### [facility] [address] [place] [address] Dr. Ramya Ramey URINE MICROSCOPIC ONLYon BACTERIA MODERATE Abnormal NONE SEEN [facility] Comment on above: Performed By: #### U ACSIND, UMICRO #### [facility] [address] [place] [address] Dr. Ramya Ramey Bacteria identified Cx Nom (U) INDICATED Normal [facility] Comment on above: Performed By: #### U ACSIND, UMICRO #### [facility] [address] [place] [address] Dr. Ramya Ramey CAST NONE SEEN Normal NONE SEEN [facility] Comment on above: Performed By: #### U ACSIND, UMICRO #### [facility] [address] [place] [address] Dr. Ramya Ramey Crystals LM Nom (Urine sed) NONE SEEN Normal NONE SEEN [facility] Comment on above: Performed By: #### U ACSIND, UMICRO #### [facility] [address] [place] [address] Dr. Ramya Ramey Epithelial cells LM Ql (Urine sed) MANY Abnormal NONE SEEN /RARE [facility] Comment on above: Performed By: #### U ACSIND, UMICRO #### [facility] [address] [place] [address] Dr. Ramya Ramey MUCOUS NONE SEEN Normal NONE SEEN [facility] Comment on above: Performed By: #### U ACSIND, UMICRO #### [facility] [address] [place] [address] Dr. Ramya Ramey RBC 2-5 Abnormal 0-2 [facility] Comment on above: Performed By: #### U ACSIND, UMICRO #### [facility] [address] [place] [address] Dr. Ramya Ramey WBC 10-20 Abnormal NONE SEEN [facility] Comment on above: Performed By: #### U ACSIND, UMICRO #### [facility] [address] [place] [address] Dr. Ramya Ramey HEPATITIS C ANTIBODYon 07-18 Hep C Virus Ab <0.1 Normal 0.0-0.9 [facility] Comment on above: Result Comment: Nega tive: < 0.8 Indeterminate: 0.8 - 0.9 Positive: > 0.9 . The CDC recommends that a positive HCV antibody result be followed up with a HCV Nucleic Acid Amplification test ([id number]). Performed By: #### H CV #### [facility] [address] [place] [address] Dr. Ramya Ramey ABO AND RH TYPEon 07-17-2021 ABO and Rh group Nom (Bld) ABO Rh Typing B Rh Positive Normal [facility] Comment on above: Performed By: #### P OCGLUC #### [facility] [address] [place] [address] Dr. Ramya Ramey GLUCOSE - 1HRon 07-17-2021 Glucose [Mass/Vol] 238 mg/dL Critically high 74-106 T [facility] Comment on above: Performed By: #### G LU1HR #### [facility] [address] [place] [address] Dr. Ramya Ramey GLYCOHEMOGLOBIN A1Con 2021 ADA RECOMMENDATION ADA THERAPEUTIC TARGET 6.0 - 7.0 ACTION SUGGESTED > 7.0 Normal [facility] Comment on above: Performed By: #### H H #### [facility] [address] [place] [address] Dr. Ramya Ramey Glucose [Mass/Vol] 120 mg/dL Normal [facility] Comment on above: Performed By: #### H H #### [facility] [address] [place] [address] Dr. Ramya Ramey HbA1c (Bld) [Mass fraction] 5.8 % Normal <=6.0 [facility] Comment on above: Performed By: #### H H #### [facility] [address] [place] [address] Dr. Ramya Ramey HEMOGRAM AND PLATELon 2021 Hematocrit (Bld) [Volume fraction] 33.3 % Critically low 36.0-48.0 [facility] Comment on above: Performed By: #### H H #### [facility] [address] [place] [address] Dr. Ramya Ramey Hemoglobin (Bld) [Mass/Vol] 10.8 g/dL Critically low 12.0-16.0 [facility] Comment on above: Performed By: #### H H #### [facility] [address] [place] [address] Dr. Ramya Ramey MCH (RBC) [Entitic mass] 28.9 pg Normal 26.7-34.0 [facility] Comment on above: Performed By: #### H H #### [facility] [address] [place] [address] Dr. Ramya Ramey MCHC (RBC) [Mass/Vol] 32.4 g/dL Normal 29.9-35.2 [facility] Comment on above: Performed By: #### H H #### [facility] [address] [place] [address] Dr. Ramya Ramey MCV (RBC) [Entitic vol] 89.0 fL Normal 81.0-99.0 [facility] Comment on above: Performed By: #### H H #### [facility] [address] [place] [address] Dr. Ramya Ramey PLT 217 103/ul Normal 150-450 [facility] Comment on above: Performed By: #### H H #### [facility] [address] [place] [address] Dr. Ramya Ramey RBC 3.74 106/ul Critically low 4.20-5.40 [facility] Comment on above: Performed By: #### H H #### [facility] [address] [place] [address] Dr. Ramya Ramey WBC 11.5 103/ul Critically high 4.0-11.0 [facility] Comment on above: Performed By: #### H H #### [facility] [address] [place] [address] Dr. Ramya Ramey CHLAMYDIA/GONOCOCCUS JAKE ( AB/URINE/PAPon 06-21-2021 Chlamydia trachomatis, JAKE Negative Normal Negative [facility] Comment on above: Performed By: #### C T/NGNA #### [facility] [address] [place] [address] Dr. Ramya Ramey Neisseria gonorrhoeae, JAKE Negative Normal Negative [facility] Comment on above: Performed By: #### C T/NGNA #### [facility] [address] [place] [address] Dr. Ramya Ramey VAGINITIS/VAGINOSIS DNA PROB [place] 06-20-2021 Elodia species Negative Normal Negative [facility] Comment on above: Performed By: #### H H #### [facility] [address] [place] [address] Dr. Ramya Ramey Gardnerella vaginalis Positive Abnormal Negative [facility] Comment on above: Performed By: #### H H #### [facility] [address] [place] [address] Dr. Ramya Ramey Trichomonas vaginalis Negative Normal Negative [facility] Comment on above: Performed By: #### H H #### [facility] [address] [place] [address] Dr. Ramya Ramey AFP, Maternalon 06-03-2021 Determined by Other Normal [facility] Comment on above: Performed By: #### C MIS #### [facility] [address] [place] [address] [employer] Officer: Antoine Wilson MD #### AAFPM #### [facility] [address] [place] [address] [employer] Officer: Antoine Wilson MD [address] [address] [employer] Officer: Nick Mills MD Due Date SEE NOTE Normal [facility] Comment on above: Result Comment: Resu lts for Estimated Due Date: 10 21 21 Performed By: #### C MIS #### [facility] [address] [place] [address] [employer] Officer: Antoine Wilson MD #### AAFPM #### [address] [address] [employer] Officer: Antoine Wilson MD [address] [phone] [employer] Officer: Nick Mills MD Family History No Normal [facility] Comment on above: Performed By: #### C MIS #### [address] [address] [employer] Officer: Antoine Wilson MD #### AAFPM #### [address] [address] [employer] Officer: Antoine Wilson MD [address] [phone] [employer] Officer: Nick Mills MD Gestat Age (exact) 19 wks, [address] [facility] Comment on above: Performed By: #### C MIS #### [address] [address] Staff [employer] Officer: Antoine Wilson MD #### AAFPM #### [address] [address] [employer] Officer: Antoine Wilson MD [address] [phone] [employer] Officer: Nick Mills MD Ins Req Matern Diab Unknown Normal [facility] Comment on above: Performed By: #### C MIS #### [address] [address] Staff [employer] Officer: Antoine Wilson MD #### AAFPM #### [address] [address] [employer] Officer: Antoine Wilson MD [address] [phone] [employer] Officer: Nick Mills MD Interpretation Screen Neg Normal [facility] Comment on above: Result Comment: (NOT E) INTERPRETATION: SCREEN NEGATIVE for open spina bifida Neural Tube Defects (NTD) Negative Pre-Test Post-Test Cutoff Neural Tube Defects Risks 1:1030 1:7440 1:250 Comments: The risk of an open neural tube defect is less than the screening cut-off. This test was developed and its performance characteristics determined by [facility]. It has not been cleared or approved by the [place] Food and Drug Administration. This test was performed in a CLIA certified laboratory and is intended for clinical purposes. Performed By: #### C MIS #### [address] [address] Staff [employer] Officer: Antoine Wilson MD #### AAFPM #### [address] [address] Staff [employer] Officer: Antoine Wilson MD [address] [phone] [employer] Officer: Nick Mills MD [age] Normal [facility] Comment on above: Performed By: #### C MIS #### [address] [address] Staff [employer] Officer: Antoine Wilson MD #### AAFPM #### [address] [address] Staff [employer] Officer: Antoine Wilson MD [address] [phone] [employer] Officer: Nick Mills MD Maternal Race Nonblack [facility] Comment on above: Performed By: #### C MIS #### [address] [address] Staff [employer] Officer: Antoine Wilson MD #### AAFPM #### [address] [address] Staff [employer] Officer: Antoine Wilson MD [address] [place] [address] Staff [employer] Officer: Nick Milsl MD Maternal Weight 204.0 lbs. Normal [facility] Comment on above: Performed By: #### C MIS #### [address] [address] Staff [employer] Officer: Antoine Wilson MD #### AAFPM #### [address] [address] Staff [employer] Officer: Antoine Wilson MD [facility] [address] [place], [place] [phone] Staff [employer] Officer: Nick Mills MD MoM for AFP 1.18 Normal [facility] Comment on above: Performed By: #### C MIS #### [address] [address] Staff [employer] Officer: Antoine Wilson MD #### AAFPM #### [address] [address] [employer] Officer: Antoine Wilson MD [address] [phone] [employer] Officer: Nick Mills MD Number of Fetuses Tate Normal [facility] Comment on above: Performed By: #### C MIS #### [address] [address] Staff [employer] Officer: Antoine Wilson MD #### AAFPM #### [address] [address] Staff [employer] Officer: Antoine Wilson MD [facility] [address] [place], [place] [phone] Staff [employer] Officer: Nick Mills MD Patient's AFP 55 ng/mL Normal [facility] Comment on above: Performed By: #### C MIS #### [address] [address] Staff [employer] Officer: Antoine Wilson MD #### AAFPM #### [address] [address] Staff [employer] Officer: Antoine Wilson MD [employer] [address] [place] [phone] Staff [employer] Officer: Nick Mills MD Smoking Yes Normal [facility] Comment on above: Performed By: #### C MIS #### [address] [address] [employer] Officer: Antoine Wilson MD #### AAFPM #### [address] [address] Staff [employer] Officer: Antoine Wilson MD [address] [phone] [employer] Officer: Nick Mills MD Specimen See Note Normal [facility] Comment on above: Result Comment: (NOT E) Initial sample Performed by [facility], [address] [place] [id number] [email or web address], Noreen Zafar MD, Lab. Director Performed By: #### C MIS #### [address] [address] Staff [employer] Officer: Antoine Wilson MD #### AAFPM #### [address] [address] [employer] Officer: Antoine Wilson MD [address] [phone] [employer] Officer: Nick Mills MD AFP, Maternalon 06-01-2021 Current Smoking YES Normal [facility] Comment on above: Performed By: #### C MIS #### [address] [address] Staff [employer] Officer: Antoine Wilson MD #### AAFPM #### [address] [address] Staff [employer] Officer: Antoine Wilson MD [facility] [address] [place], [place] [phone] [employer] Officer: Nick Mills MD Dating LMP [facility] Comment on above: Performed By: #### C MIS #### [address] [address] Staff [employer] Officer: Antoine Wilson MD #### AAFPM #### [address] [address] Staff [employer] Officer: Antoine Wilson MD [address] [phone] Staff [employer] Officer: Nick Mills MD Diabetic INFORMATION NOT PROVIDED [facility] Comment on above: Performed By: #### C MIS #### [address] [address] Staff [employer] Officer: Antoine Wilson MD #### AAFPM #### [address] [address] Staff [employer] Officer: Antoine Wilson MD [facility] [address] [place], [place] [phone] [employer] Officer: Nick Mills MD Donor Egg NO [facility] Comment on above: Performed By: #### C MIS #### [address] [address] Staff [employer] Officer: Antoine Wilson MD #### AAFPM #### [address] [address] Staff [employer] Officer: Antoine Wilson MD [facility] [address] [place], [place] [phone] [employer] Officer: Nick Mills MD Estimated Due Date 10 21 2021 [facility] Comment on above: Performed By: #### C MIS #### [address] [place] [address] Staff [employer] Officer: Antoine Wilson MD #### AAFPM #### [facility] [address] [place] [address] Staff [employer] Officer: Antoine Wilson MD [address] [address] Staff [employer] Officer: Nick Mills MD Family History NO [facility] Comment on above: Performed By: #### C MIS #### [facility] [address] [place] [address] Staff [employer] Officer: Antoine Wilson MD #### AAFPM #### [facility] [address] [place] [address] Staff [employer] Officer: Antoine Wilson MD [address] [address] Staff [employer] Officer: Nick Mills MD In Vitro Fertalizat [facility] Comment on above: Performed By: #### C MIS #### [facility] [address] [place] [address] Staff [employer] Officer: Antoine Wilson MD #### AAFPM #### [address] [address] Staff [employer] Officer: Antoine Wilson MD [address] [address] Staff [employer] Officer: Nick Mills MD [facility] date 01 14 2021 [facility] Comment on above: Performed By: #### C MIS #### [facility] [address] [place] [address] Staff [employer] Officer: Antoine Wilson MD #### AAFPM #### [facility] [address] [place] [address] Staff [employer] Officer: Antoine Wilson MD [address] [address] Staff [employer] Officer: Nick Mills MD Maternal date 08 14 1997 [facility] Comment on above: Performed By: #### C MIS #### [address] [address] Staff [employer] Officer: Antoine Wilson MD #### AAFPM #### [address] [address] Staff [employer] Officer: Antoine Wilson MD [facility] [address] [place] [address] [employer] Officer: Nick Mills MD Maternal Weight 204 [facility] Comment on above: Performed By: #### C MIS #### [address] [address] Staff [employer] Officer: Antoine Wilson MD #### AAFPM #### [address] [address] Staff [employer] Officer: Antoine Wilson MD [facility] [address] [place] [address] Staff [employer] Officer: Nick Mills MD Monochorionic Twins TATE [facility] Comment on above: Performed By: #### C MIS #### [address] [address] Staff [employer] Officer: Antoine Wilson MD #### AAFPM #### [address] [address] Staff [employer] Officer: Antoine Wilson MD [facility] [address] [place] [address] Staff [employer] Officer: Nick Mills MD Patient Weight Units LBS [facility] Comment on above: Performed By: #### C MIS #### [address] [address] Staff [employer] Officer: Antoine Wilson MD #### AAFPM #### [address] [address] Staff [employer] Officer: Antoine Wilson MD [address] [address] Staff [employer] Officer: Nick Mills MD Race (Maternal) WHITE Normal [facility] Comment on above: Performed By: #### C MIS #### [address] [address] Staff [employer] Officer: Antoine Wilson MD #### AAFPM #### [address] [address] Staff [employer] Officer: Antoine Wilson MD [address] [address] Staff [employer] Officer: Nick Mills MD Repeat Specimen INFORMATION NOT PROVIDED [facility] Comment on above: Performed By: #### C MIS #### [address] [address] Staff [employer] Officer: Antoine Wilson MD #### AAFPM #### [address] [address] [employer] Officer: Antoine Wilson MD [address] [address] Staff [employer] Officer: Nick Mills MD Valproic/Carbamazep INFORMATION NOT PROVIDED [facility] Comment on above: Performed By: #### C MIS #### [address] [address] Staff [employer] Officer: Antoine Wilson MD #### AAFPM #### [address] [address] Staff [employer] Officer: Antoine Wilson MD [address] [address] Staff [employer] Officer: Nick Mills MD Miscellaneouson 06-01-2021 Send Out Report [facility] [phone] [facility] Comment on above: Performed By: #### C MIS #### [facility] [address] [place] [address] Staff [employer] Officer: Antoine Wilson MD #### AAFPM #### [facility] [address] [place] [address] Staff [employer] Officer: Antoine Wilson MD [facility] [address] [place] [address] Staff [employer] Officer: Nick Mills MD Miscellaneouson 05-31-2021 Test Name [facility] Comment on above: Performed By: #### C MIS #### [address] [address] Staff [employer] Officer: Antoine Wilson MD #### AAFPM #### [address] [address] Staff [employer] Officer: Antoine Wilson MD [address] [address] Staff [employer] Officer: Nick Mills MD COVID-19, Rapidon 05-22-2021 Interpretation and review of laboratory results Abnormal [facility] SARS-CoV-2 (COVID-19) RNA JAKE+probe Ql (Unsp spec) Detected Abnormal Not Detected [facility] Comment on above: Rapid NAAT: The specimen [...] this assay. Fact sheet for Healthcare Providers: https://www.fda.gov/media/359168/download Fact sheet for Patients: https://www.fda.gov/media/694021/download Methodology: Isothermal Nucleic Acid Amplification Results reported to the appropriate Health Department Specimen Description .NASOPHARYNGEAL SWAB [facility] [employer] Basic Metabolic Panelon Anion gap [Moles/Vol] 14 mmol/L 9 - 17 mmol/L [employer] Calcium [Mass/Vol] 9.3 mg/dL 8.6 - 10. 4 mg/dL [employer] Chloride [Moles/Vol] 100 mmol/L 98 - 10 7 mmol/L [employer] CO2 [Moles/Vol] 19 mmol/L Low 20 - 31 mmol/L [employer] Creatinine [Mass/Vol] 0.48 mg/dL Low 0.50 - 0.90 mg/dL [employer] GFR >60 >60 mL/min [employer] GFR Non- >60 >60 mL/min [employer] GFR/1.73 sq M.predicted MDRD (S/P/Bld) [Vol rate/Area] [facility] Comment on above: Average GFR for 20-2 9 years old: 116 mL/min/1.73sq m Chronic Kidney Disease: <60 mL/min/1.73sq m Kidney failure: <15 mL/min/1.73sq m eGFR calculated using average adult body mass. Additional eGFR calculator available at: http://www.[employer]/multiple_crcl_2012.htm GFR/1.73 sq M.predicted MDRD (S/P/Bld) [Vol rate/Area] NOT REPORTED [facility] Glucose [Mass/Vol] 209 mg/dL High 70 - 99 mg/dL [facility] Interpretation and review of laboratory results Abnormal [employer] Potassium [Moles/Vol] 3.9 mmol/L 3.7 - 5.3 mmol/L [employer] Sodium [Moles/Vol] 133 mmol/L Low 135 - 144 mmol/L [employer] Urea nitrogen (BldV) [Mass/Vol] 7 mg/dL 6 - 20 mg/dL [facility] [employer] Urea nitrogen/Creatinine (Bld) [Mass ratio] 15 [facility] US OB 1ST TRIMESTER TRANSBDO BECKY ONLY [...] Doppler analysis. Somatic motion also noted by production estimator. Uterus measures 13.4 x 7.8 x 8.7 [...] ID: [id number] Dictated by: BLAINE CHIU on FriApr 01, 2021 8:19:34 PM EST Transcribed by: BLAINE CHIU on FriApr 01, 2021 8:19:34 PM EST Finalized by: BLAINE CHIU on FriApr 01, 2021 8:19:34 PM EST Normal [facility] Comment on above: Order Comment: Injur y/Trauma or Illness?:Illness/Other How long have you had these symptoms (acute/chronic)?:Acute Reason for exam?:vaginal bleeding, rt pelvic pain History of cancer?:na Surgeries, chemotherapy, or radiation?:na Type of Exam?:Initial Additional signs and symptoms?:n Microscopic UrinalysisOrdere d By: Braydon May on 02-10-2021 - [facility] Work Phone: Amorphous, UA NOT REPORTED None [employer] [facility] Work Phone: Bacteria, UA 1+ Abnormal None [facility] Work Phone: Casts UA NOT REPORTED /LPF [facility] Work Phone: Crystals, UA NOT REPORTED None /HPF [facility] Work Phone: Epithelial Cells UA 5 TO 10 /HPF [facility] Work Phone: Interpretation and review of laboratory results Abnormal [facility] Work Phone: Mucus, UA NOT REPORTED None [facility] [employer] Work Phone: Other Observations UA NOT REPORTED NOT REQ. M [facility] Work Phone: RBC, UA 0 TO 2 [facility] [employer] Work Phone: Renal Epithelial, UA NOT REPORTED 0 /HPF [facility] Work Phone: Trichomonas, UA NOT REPORTED None [facility] Work Phone: WBC, UA 2 TO 5 0 /HPF [facility] Work Phone: Yeast, UA NOT REPORTED None [facility] Work Phone: [facility] [employer] Work Phone: UrinalysisOrdered By: Braydon May on 02-10-2021 Bilirubin Urine Negative NEGATIVE [facility] [employer] [facility] Work Phone: Color, UA Yellow Yellow [facility] Work Phone: Glucose, Ur Negative NEGATIVE [facility] [employer] Work Phone: Interpretation and review of laboratory results Abnormal [facility] Work Phone: Ketones Ql (U) Negative NEGATIVE [facility] Work Phone: Leukocyte esterase Test strip Ql (U) 2+ Abnormal NEGATIVE [facility] [employer] Work Phone: Nitrite, Urine Negative NEGATIVE [facility] Work Phone: pH, UA 6.0 [facility] Work Phone: Protein, UA Negative NEGATIVE [facility] Work Phone: Specific Fleming, UA 1.020 [employer] Work Phone: Turbidity UA Clear Clear [facility] Work Phone: Urinalysis Comments [facility] Work Phone: Urine Hgb 1+ Abnormal NEGATIVE [facility] Work Phone: Urobilinogen, Urine Normal Normal [facility] Phone: [facility] Work Phone: hCG, quantitative, Ordered By: Braydon May on 02-10-2021 hCG Quant 160 High <5 IU/L [facility] Phone: Comment on above: Non-preg premeno <=5 Postmeno <=8 Male <=3 If HCG results do not concur with clinical observations, additional testing to confirm results is recommended. Elevated results not associated with may be found in patients with other diseases such as tumors of the germ cells (testis, ovaries, etc.), bladder, pancreas, stomach, lungs, and liver. Interpretation and review of laboratory results Abnormal [employer] Phone: [employer] Work Phone: CBC Auto DifferentialOrdered By: Bea Jacobs on 12-10-2020 [employer] # 0.10 [facility] Center[facility] Work Phone: [employer] Granulocyte NOT REPORTED [facility] [facility] Work Phone: Absolute Lymph # 1.80 [facility] Work Phone: Absolute [place] # 0.70 [facility] Work Phone: Basophils (Bld) [#/Vol] 0.10 10*3/uL [facility] Work Phone: Basophils/100 WBC (Bld) 1 % 0 - 2 % M [employer] Phone: Differential Type YES [employer] Work Phone: Eosinophils/100 WBC (Bld) 1 % 0 - 5 % [employer] Phone: Hematocrit (Bld) [Volume fraction] 42.8 % 36 - 46 % [employer] Phone: Hemoglobin.gastrointest inal spec 1 Ql (Stl) 14.6 g/dL 12.0 - 16.0 g/dL [employer] Phone: Immature Granulocytes NOT REPORTED 0 % M [employer] Work Phone: Interpretation and review of laboratory results Abnormal [employer] Phone: Lymphocytes/100 WBC (Bld) 16 % 15 - 40 % [employer] Phone: MCH (RBC) [Entitic mass] 30.0 pg 26 - 34 pg [employer] Phone: MCHC (RBC) [Mass/Vol] 34.2 g/dL 31 - 3 7 g/dL [employer] Phone: MCV (RBC) [Entitic vol] 87.8 fL 80 - 100 fL [employer] Phone: Monocytes/100 WBC (Bld) 6 % 4 - 8 % M [employer] Phone: NRBC Automated NOT REPORTED per 100 WBC [employer] Work Phone: Platelet distribution width (Bld) [Ratio] 13.1 % 12.1 - 15.2 % [employer] Phone: Platelet Estimate NOT REPORTED [employer] Phone: Platelet mean volume (Bld) [Entitic vol] NOT REPORTED 6.0 - 12.0 fL [employer] Phone: Platelets (Bld) [#/Vol] 230 10*3/uL [employer] Work Phone: RBC (Bld) [#/Vol] 4.87 10*6/uL 4.0 - 5.2 m/uL [employer] Work Phone: RBC (Bld) [#/Vol] NOT REPORTED [employer] Work Phone: Segmented neutrophils/100 WBC (Bld) 76 % High 47 - 75 % [employer] Work Phone: Segs Absolute 8.80 High HCDCt [employer] Work Phone: WBC (Bld) [#/Vol] 11.5 10*3/uL High [employer] Work Phone: WBC (Bld) [#/Vol] NOT REPORTED [employer] Phone: [employer] Work Phone: Comprehensive Metabolic Pane l w/ Reflex to MGOrdered By: Bea Jacobs on 12-10-2020 Albumin [Mass/Vol] 4.3 g/dL 3.5 - 5.2 g/dL [employer] Phone: Albumin/Globulin Ratio NOT REPORTED [employer] Phone: ALP (Bld) [Catalytic activity/Vol] 105 U/L High 35 - 104 U/L [employer] Work Phone: ALT [Catalytic activity/Vol] 17 U/L 5 - 33 U/L [employer] Phone: Anion gap [Moles/Vol] 12 mmol/L 9 - 17 mmol/L [employer] Phone: AST [Catalytic activity/Vol] 17 U/L <32 [employer] Phone: Bilirubin [Mass/Vol] 0.50 mg/dL 0.30 - 1.20 mg/dL [employer] Phone: Calcium [Mass/Vol] 9.3 mg/dL 8.6 - 10. 4 mg/dL [employer] Phone: Chloride [Moles/Vol] 105 mmol/L 98 - 10 7 mmol/L [employer] Phone: CO2 [Moles/Vol] 22 mmol/L 20 - 31 mmol/L [employer] Phone: Creatinine [Mass/Vol] 0.6 mg/dL 0.50 - 0.90 mg/dL [employer] Phone: Free PSA/Total PSA [Mass fraction] 7.3 g/dL 6.4 - 8.3 g/dL [employer] Phone: GFR >60 >60 mL/min [employer] Phone: GFR Non- >60 >60 mL/min [employer] Phone: GFR/1.73 sq M.predicted MDRD (S/P/Bld) [Vol rate/Area] [employer] Phone: Comment on above: Average GFR for 20-2 9 years old: 116 mL/min/1.73sq m Chronic Kidney Disease: <60 mL/min/1.73sq m Kidney failure: <15 mL/min/1.73sq m eGFR calculated using average adult body mass. Additional eGFR calculator available at: http://www.Oplerno.Musiwave/multiple_crcl_2012.htm GFR/1.73 sq M.predicted MDRD (S/P/Bld) [Vol rate/Area] NOT REPORTED [employer] Phone: Glucose [Mass/Vol] 102 mg/dL High 70 - 99 mg/dL [employer] Phone: Interpretation and review of laboratory results Abnormal [employer] Phone: Potassium [Moles/Vol] 3.9 mmol/L 3.7 - 5.3 mmol/L [employer] Phone: Sodium [Moles/Vol] 139 mmol/L 135 - 144 mmol/L [employer] Phone: Urea nitrogen (BldV) [Mass/Vol] 15 mg/dL 6 - 20 mg/dL [employer] Phone: Urea nitrogen/Creatinine (Bld) [Mass ratio] 25 High [employer] Phone: [employer] Phone: HCG Qualitative, SerumOrdere d By: Bea Jacobs on 12-10-2020 hCG Qual Negative NEGATIVE [employer] Phone: Comment on above: Specimens with hCG l evels near the threshold of the test (25 mIU/mL) may give a negative or indeterminate result. In such cases, another test should be performed with a new specimen in 48-72 hours. If early is suspected clinically in this setting, correlation with quantitative serum b-hCG level is suggested. [employer] has confirmed the use of plasma for this test. This has not been cleared or approved by the U.S. Food and Drug Administration. The FDA has determined that such clearance is not necessary. [employer] Phone: Acetaminophen Levelon 2020 Acetaminophen [Mass/Vol] <5 Low 10 - 30 ug/mL [employer] Phone: Interpretation and review of laboratory results Abnormal [employer] Phone: Basic Metabolic Panelon 03-3 Anion gap [Moles/Vol] 11 mmol/L 9 - 17 mmol/L [employer] Phone: Bun/Cre Ratio 27 High [employer] Work Phone: Calcium [Mass/Vol] 9.4 mg/dL 8.6 - 10. 4 mg/dL [employer] Phone: Chloride [Moles/Vol] 104 mmol/L 98 - 10 7 mmol/L [employer] Phone: CO2 [Moles/Vol] 26 mmol/L 20 - 31 mmol/L [employer] Phone: Creatinine [Mass/Vol] 0.71 mg/dL 0.50 - 0.90 mg/dL [employer] Phone: GFR >60 >60 mL/min [employer] Phone: GFR Non- >60 >60 mL/min [employer] Phone: GFR/1.73 sq M predicted among non-blacks MDRD (S/P/Bld) [Vol rate/Area] NOT REPORTED [employer] Phone: GFR/1.73 sq M predicted among non-blacks MDRD (S/P/Bld) [Vol rate/Area] [employer] Phone: Comment on above: Average GFR for 20-2 9 years old: 116 mL/min/1.73sq m Chronic Kidney Disease: <60 mL/min/1.73sq m Kidney failure: <15 mL/min/1.73sq m eGFR calculated using average adult body mass. Additional eGFR calculator available at: http://www.ChupaMobile/multiple_crcl_2011.htm Glucose [Mass/Vol] 113 mg/dL High 70 - 99 mg/dL [employer] Phone: Potassium [Moles/Vol] 4.0 mmol/L 3.7 - 5.3 mmol/L [employer] Phone: Sodium [Moles/Vol] 141 mmol/L 135 - 144 mmol/L [employer] Phone: Urea nitrogen [Mass/Vol] 19 mg/dL 6 - 20 mg/dL [employer] Phone: CBC Auto Differentialon 03-3 Basophils (Bld) [#/Vol] 0.10 10*3/uL [employer] Phone: Basophils/100 WBC (Bld) 1 % 0 - 2 % [employer] Phone: Differential Type YES [employer] Work Phone: Eosinophils (Bld) [#/Vol] 0.10 10*3/uL [employer] Phone: Eosinophils/100 WBC (Bld) 1 % 0 - 5 % [employer] Phone: Erythrocyte distribution width (RBC) [Ratio] 13.3 % 12.1 - 15.2 % [employer] Phone: Hematocrit (Bld) [Volume fraction] 40.7 % 36 - 46 % [employer] Phone: Hemoglobin (Bld) [Mass/Vol] 13.8 g/dL 12.0 - 16.0 g/dL [employer] Phone: Interpretation and review of laboratory results Abnormal [employer] Phone: Lymphocytes (Bld) [#/Vol] 3.10 10*3/uL [employer] Phone: Lymphocytes/100 WBC (Bld) 28 % 15 - 40 % [employer] Phone: MCH (RBC) [Entitic mass] 30.1 pg 26 - 34 pg [employer] Phone: MCHC (RBC) [Mass/Vol] 33.8 g/dL 31 - 3 7 g/dL [employer] Phone: MCV (RBC) [Entitic vol] 88.8 fL 80 - 100 fL [employer] Phone: Monocytes (Bld) [#/Vol] 0.50 10*3/uL [employer] Phone: Monocytes/100 WBC (Bld) 5 % 4 - 8 % [employer] Phone: Platelet mean volume (Bld) [Entitic vol] NOT REPORTED 6.0 - 12.0 fL [employer] Phone: Platelets (Bld) [#/Vol] 203 10*3/uL [employer] Work Phone: Platelets (Bld) [#/Vol] NOT REPORTED [employer] Work Phone: RBC (Bld) [#/Vol] 4.59 10*6/uL 4.0 - 5.2 m/uL [employer] Work Phone: RBC morphology finding Nom (Bld) NOT REPORTED [employer] Work Phone: Segmented neutrophils/100 WBC (Bld) 65 % 47 - 75 % [employer] Work Phone: Segs Absolute 7.30 High [employer] Work Phone: WBC (Bld) [#/Vol] 11.0 10*3/uL [employer] Work Phone: WBC (Bld) [#/Vol] NOT REPORTED per 100 WBC [employer] Work Phone: WBC Morphology NOT REPORTED [employer] Work Phone: COVID-19, Rapidon 08-01-2020 SARS-CoV-2, Rapid Not Detected Not Detected [employer] Phone: Comment on above: Rapid NAAT: The [...] management decisions. Fact sheet for Healthcare Providers: https://www.fda.gov/media/292786/download Fact sheet for Patients: https://www.fda.gov/media/185776/download Methodology: Isothermal Nucleic Acid Amplification Specimen Description .NASOPHARYNGEAL SWAB [employer] Phone: Ethanolon 08-01-2020 Ethanol [Mass/Vol] mg/dL <10 mg/dL [employer] Phone: Ethanol percent <0.010 % nPario [facility] Work Phone: HCG Qualitative, Serumon hCG Qual Negative NEGATIVE [employer] Phone: Comment on above: Specimens with hCG l evels near the threshold of the test (25 mIU/mL) may give a negative or indeterminate result. In such cases, another test should be performed with a new specimen in 48-72 hours. If early is suspected clinically in this setting, correlation with quantitative serum b-hCG level is suggested. [employer] has confirmed the use of plasma for this test. This has not been cleared or approved by the U.S. Food and Drug Administration. The FDA has determined that such clearance is not necessary. Otheron 08-01-2020 Interpretation and review of laboratory results Abnormal [employer] Phone: Immature granulocytes (Bld) [#/Vol] NOT REPORTED [employer] Phone: Salicylateon 08-01-2020 Salicylate Lvl <1 Low 3 - 10 mg/dL [employer] Phone: TSH with Reflexon 08-01-2020 TSH Qn 3.16 m[IU]/L [employer] Phone: Urine Drug Screenon 08-02-19 Amphetamine Screen, Ur Negative NEGATIVE [facility] Phone: Comment on above: (Positive cutoff 500 ng/mL) Barbiturate Screen, Ur Negative NEGATIVE [facility] Phone: Comment on above: (Positive cutoff 200 ng/mL) Benzodiazepine Screen, Urine Negative NEGATIVE [employer] Phone: Comment on above: (Positive cutoff 150 ng/mL) Buprenorphine Urine NOT REPORTED NEGATIVE [facility] Work Phone: Cannabinoid Scrn, Ur Negative NEGATIVE [facility] Work Phone: Comment on above: (Positive cutoff 50 ng/mL) Cocaine Metabolite, Urine Negative NEGATIVE [facility] Work Phone: Comment on above: (Positive cutoff 150 ng/mL) MDMA, Urine NOT REPORTED NEGATIVE [facility] Work Phone: Methadone Screen, Urine Negative NEGATIVE [facility] Work Phone: Comment on above: (Positive cutoff 200 ng/mL) Methamphetamine, Urine Negative NEGATIVE [facility] Work Phone: Comment on above: (Positive cutoff 500 ng/mL) Opiates, Urine Negative NEGATIVE [facility] Work Phone: Comment on above: (Positive cutoff 100 ng/mL) Oxycodone Screen, Ur Negative NEGATIVE [facility] Work Phone: Comment on above: (Positive cutoff 100 ng/mL) Phencyclidine, Urine Negative NEGATIVE [facility] Work Phone: Comment on above: (Positive cutoff 25 ng/mL) Propoxyphene, Urine Negative NEGATIVE [facility] Work Phone: Comment on above: (Positive cutoff 300 ng/mL) Test Information NOT REPORTED [facility] Work Phone: Tricyclic Antidepressants, Urine Negative NEGATIVE [facility] Work Phone: Comment on above: (Positive cutoff 300 ng/mL) Drug screen results are to be used for medical purposes only. All positive results are unconfirmed. Testing for employment or legal uses should be sent to a reference laboratory for confirmation. CBC Auto Differentialon 01-03 Basophils (Bld) [#/Vol] 0.00 10*3/uL [facility] [place] [place], [place] Basophils/100 WBC (Bld) 1 % 0 - 2 % M [facility] [employer]- [place], [place] Differential Type YES [facility] [place] Eosinophils (Bld) [#/Vol] 0.10 10*3/uL [employer] [employer] Eosinophils/100 WBC (Bld) 2 % 0 - 5 % [place] Erythrocyte distribution width (RBC) [Ratio] 13.4 % 12.1 - 15.2 % [place] Hematocrit (Bld) [Volume fraction] 44.9 % 36 - 46 % [place] [employer] Hemoglobin (Bld) [Mass/Vol] 15.0 g/dL 12 - 16 g/dL [place] Lymphocytes (Bld) [#/Vol] 1.30 10*3/uL [place] Lymphocytes/100 WBC (Bld) 17 % 15 - 40 % [place] MCH (RBC) [Entitic mass] 29.7 pg 26 - 34 pg [place] MCHC (RBC) [Mass/Vol] 33.4 g/dL 31 - 3 7 g/dL [place] MCV (RBC) [Entitic vol] 88.9 fL 80 - 100 fL [place] [employer] Monocytes (Bld) [#/Vol] 0.40 10*3/uL [place] Monocytes/100 WBC (Bld) 5 % 4 - 8 % [place] Platelet mean volume (Bld) [Entitic vol] NOT REPORTED 6 - 12 fL [place] Platelets (Bld) [#/Vol] NOT REPORTED [place] [employer] Platelets (Bld) [#/Vol] 231 10*3/uL [place] RBC (Bld) [#/Vol] 5.05 10*6/uL 4 - 5.2 m/uL [place] RBC morphology finding Nom (Bld) NOT REPORTED [place] Segmented neutrophils/100 WBC (Bld) 75 % 47 - 75 % [place] [employer] Segs Absolute 5.80 [place] WBC (Bld) [#/Vol] 7.7 10*3/uL [place] WBC (Bld) [#/Vol] NOT REPORTED per 100 WBC [place] WBC Morphology NOT REPORTED [place] Comprehensive Metabolic Pane ammon 01-18-2020 Albumin [Mass/Vol] 4.6 g/dL 3.5 - 5.2 g/dL [place] [employer] Albumin/Globulin [Mass ratio] NOT REPORTED [place] ALP [Catalytic activity/Vol] 101 U/L 35 - 104 U/L [place] [employer] ALT [Catalytic activity/Vol] 21 U/L 5 - 33 U/L [place] [employer] Anion gap [Moles/Vol] 10 mmol/L 9 - 17 mmol/L [place] AST [Catalytic activity/Vol] 20 U/L <32 [place] [employer] Bilirubin Ql (U) 0.55 mg/dL 0.3 - 1.2 mg/dL [place] Bun/Cre Ratio 18 [place] Calcium [Mass/Vol] 9.2 mg/dL 8.6 - 10. 4 mg/dL [place] Chloride [Moles/Vol] 106 mmol/L 98 - 10 7 mmol/L [place] CO2 [Moles/Vol] 24 mmol/L 20 - 31 mmol/L [place] Creatinine [Mass/Vol] 0.74 mg/dL 0.5 - 0.9 mg/dL [place] GFR >60 >60 mL/min [place] GFR Non- >60 >60 mL/min [place] [employer] GFR/1.73 sq M predicted among non-blacks MDRD (S/P/Bld) [Vol rate/Area] [place] [employer] Comment on above: Average GFR for 20-2 9 years old: 116 mL/min/1.73sq m Chronic Kidney Disease: <60 mL/min/1.73sq m Kidney failure: <15 mL/min/1.73sq m eGFR calculated using average adult body mass. Additional eGFR calculator available at: http://www.Oplerno.Musiwave/multiple_crcl_2012.htm GFR/1.73 sq M predicted among non-blacks MDRD (S/P/Bld) [Vol rate/Area] NOT REPORTED [place] Glucose [Mass/Vol] 124 mg/dL High 70 - 99 mg/dL [place] Interpretation and review of laboratory results Abnormal [place] Potassium [Moles/Vol] 4.1 mmol/L 3.7 - 5.3 mmol/L [place] Protein [Mass/Vol] 8.5 g/dL High 6.4 - 8.3 g/dL [place] Sodium [Moles/Vol] 140 mmol/L 135 - 144 mmol/L [place] Urea nitrogen [Mass/Vol] 13 mg/dL 6 - 20 mg/dL [place] Otheron 01-18-2020 Immature granulocytes (Bld) [#/Vol] NOT REPORTED 0 % [place] TSH with Reflexon 01-18-2020 TSH Qn 1.30 m[IU]/L [place] Basic Metabolic Panel w/ Ref stephy to MGon 04-06-2019 Anion gap [Moles/Vol] 13 mmol/L 9 - 17 mmol/L [place] Bun/Cre Ratio 19 [place] Calcium [Mass/Vol] 9.7 mg/dL 8.6 - 10. 4 mg/dL [place] Chloride [Moles/Vol] 102 mmol/L 98 - 10 7 mmol/L [place] [employer] CO2 [Moles/Vol] 23 mmol/L 20 - 31 mmol/L [place] [employer] Creatinine [Mass/Vol] 0.58 mg/dL 0.5 - 0.9 mg/dL [place] [employer] GFR >60 >60 mL/min [place] GFR Non- >60 >60 mL/min [place] GFR/1.73 sq M predicted among non-blacks MDRD (S/P/Bld) [Vol rate/Area] NOT REPORTED [place] [employer] GFR/1.73 sq M predicted among non-blacks MDRD (S/P/Bld) [Vol rate/Area] [place] [employer] Comment on above: Average GFR for 20-2 9 years old: 116 mL/min/1.73sq m Chronic Kidney Disease: <60 mL/min/1.73sq m Kidney failure: <15 mL/min/1.73sq m eGFR calculated using average adult body mass. Additional eGFR calculator available at: http://www.ChupaMobile/multiple_crcl_2012.htm Glucose [Mass/Vol] 115 mg/dL High 70 - 99 mg/dL [place] Interpretation and review of laboratory results Abnormal [place] Potassium [Moles/Vol] 3.9 mmol/L 3.7 - 5.3 mmol/L [place] [employer] Sodium [Moles/Vol] 138 mmol/L 135 - 144 mmol/L [place] [employer] Urea nitrogen [Mass/Vol] 11 mg/dL 6 - 20 mg/dL [place] CBC Auto Differentialon Basophils (Bld) [#/Vol] 0.00 10*3/uL [place] Basophils/100 WBC (Bld) 0 % 0 - 2 % M [place] Differential Type YES [place] Eosinophils (Bld) [#/Vol] 0.10 10*3/uL [place] Eosinophils/100 WBC (Bld) 2 % 0 - 5 % [employer] Erythrocyte distribution width (RBC) [Ratio] 12.7 % 12.1 - 15.2 % [place] Hematocrit (Bld) [Volume fraction] 46.4 % High 36 - 46 % [place] Hemoglobin (Bld) [Mass/Vol] 15.5 g/dL 12 - 16 g/dL [place] [employer] Interpretation and review of laboratory results Abnormal [place] [employer] Lymphocytes (Bld) [#/Vol] 1.30 10*3/uL [place] Lymphocytes/100 WBC (Bld) 20 % 15 - 40 % [place] [employer] MCH (RBC) [Entitic mass] 29.7 pg 26 - 34 pg [place] MCHC (RBC) [Mass/Vol] 33.4 g/dL 31 - 3 7 g/dL [place] [employer] MCV (RBC) [Entitic vol] 89.0 fL 80 - 100 fL [place] [employer] Monocytes (Bld) [#/Vol] 0.50 10*3/uL [employer] Monocytes/100 WBC (Bld) 8 % 4 - 8 % [place] Platelet mean volume (Bld) [Entitic vol] NOT REPORTED 6 - 12 fL [place] Platelets (Bld) [#/Vol] NOT REPORTED [place] [employer] Platelets (Bld) [#/Vol] 194 10*3/uL [place] [employer] RBC (Bld) [#/Vol] 5.22 10*6/uL High 4 - 5.2 m/uL [place] [employer] RBC morphology finding Nom (Bld) NOT REPORTED [place] [employer] Segmented neutrophils/100 WBC (Bld) 70 % 47 - 75 % [employer] Segs Absolute 4.40 [place] WBC (Bld) [#/Vol] 6.4 10*3/uL [place] WBC (Bld) [#/Vol] NOT REPORTED per 100 WBC [place] WBC Morphology NOT REPORTED [place], [place] D-Dimer, Quantitativeon D-Dimer, Quant 0.21 [place], [place] Comment on above: Elevated levels of [...] HCG Qualitative, Serumon hCG Qual Negative NEGATIVE [place] Comment on above: Specimens with hCG l evels near the threshold of the test (25 mIU/mL) may give a negative or indeterminate result. In such cases, another test should be performed with a new specimen in 48-72 hours. If early is suspected clinically in this setting, correlation with quantitative serum b-hCG level is suggested. [employer] has confirmed the use of plasma for this test. This has not been cleared or approved by the U.S. Food and Drug Administration. The FDA has determined that such clearance is not necessary. Otheron 04-06-2019 Immature granulocytes (Bld) [#/Vol] NOT REPORTED [facility] 1 06-07-2018 Negative chest. [facility]: [facility] CHEST (2 VW ) HISTORY: Reason for exam:->SOB COMPARISON: Chest 12/05/2018. TECHNIQUE: 2 views chest FINDINGS: Heart size normal. Lungs clear. Bony thorax and upper abdomen normal. [facility] Willian, Mhpn Incoming Radiant Results From [facility] - 04/06/2019 2:50 PM EST EXAM: XR CHEST (2 VW) HISTORY: Reason for exam:->SOB COMPARISON: Chest 12/05/2018. TECHNIQUE: 2 views chest FINDINGS: Heart size normal. Lungs clear. Bony thorax and upper abdomen normal. IMPRESSION: Negative chest. [facility] Comprehensive Metabolic Pane ammon 11-12-2017 Alanine aminotransferase (ALT) 22 U/L Normal 14-65 [facility] Comment on above: This test result isela [...] ####Unless otherwise noted, all testing performed by [address], [place] [phone]: [id number] Director: Diego Hamilton M.D. Albumin 3.7 g/dL Normal 3.2-5.2 [facility] Comment on above: Performed By: #### C MET ####Unless otherwise noted, all testing performed by [address].[place], [place] [phone]: [id number] Director: Diego Hamilton M.D. Alkaline phosphatase (ALP) 99 U/L Normal 40-140 [facility] Comment on above: Performed By: #### C MET ####Unless otherwise noted, all testing performed by [address] [phone]: [id number] Director: Diego Hamilton M.D. Aspartate aminotransferase (AST) 11 U/L Normal 0-45 [facility] Comment on above: This test result isela [...] ####Unless otherwise noted, all testing performed by [address] [phone]: [id number] Director: Diego Hamilton M.D. Bilirubin (total) 0.2 mg/dL Low 0.3-1.2 [facility] Comment on above: Performed By: #### C MET ####Unless otherwise noted, all testing performed by [address] [phone]: [id number] Director: Diego Hamilton M.D. Calcium 9.0 mg/dL Normal 8.4-10.2 [facility] Comment on above: Performed By: #### C MET ####Unless otherwise noted, all testing performed by [address] [phone]: [id number] Director: Diego Hamilton M.D. Chloride 109 mmol/L High 98-108 [facility] Comment on above: Performed By: #### C MET ####Unless otherwise noted, all testing performed by [address] [phone]: [id number] Director: Diego Hamilton M.D. CO2 28 mmol/L Normal 21-32 [facility] Comment on above: Performed By: #### C MET ####Unless otherwise noted, all testing performed by [place] [phone]: [id number] Director: Diego Hamilton M.D. Creatinine 0.94 mg/dL Normal 0.40-1.10 [facility] Comment on above: Performed By: #### C MET ####Unless otherwise noted, all testing performed by [place] [phone]: [id number] Director: Diego Hamilton M.D. eGFR (black) mL/min/{1.73_m2} Normal [facility] Comment on above: GFR Calc Result Comment: Afri can [place] GFR Calc Performed By: #### C MET ####Unless otherwise noted, all testing performed by [address] [phone]: [id number] Director: Diego Hamilton M.D. eGFR (non-black) mL/min/{1.73_m2} Normal [facility] Comment on above: Non- GFR Calc eGFR [...] ####Unless otherwise noted, all testing performed by [address] [phone]: [id number] Director: Diego Hamilton M.D. Glucose mass conc 102 mg/dL High 70-99 [facility] Comment on above: This test result [...] ####Unless otherwise noted, all testing performed by [address] [phone]: [id number] Director: Diego Hamilton M.D. Interpretation and review of laboratory results Abnormal Invalid Interpretation Code [facility] Potassium molar conc 4.0 mmol/L Normal 3.5-5.1 [facility] Comment on above: Performed By: #### C MET ####Unless otherwise noted, all testing performed by [address] [phone]: [id number] Director: Diego Hamilton M.D. Protein 7.0 g/dL Normal 6.0-8.0 [facility] Comment on above: Performed By: #### C MET ####Unless otherwise noted, all testing performed by [address] [phone]: [id number] Director: Diego Hamilton M.D. Sodium 143 mmol/L Normal 135-145 [facility] Comment on above: Performed By: #### C MET ####Unless otherwise noted, all testing performed by [address] [phone]: [id number] Director: Diego Hamilton M.D. Urea nitrogen 17 mg/dL Normal 8-25 [facility] Comment on above: Performed By: #### C MET ####Unless otherwise noted, all testing performed by [address] [phone]: [id number] Director: Diego Hamilton M.D. Preg test, Urine Qualon 11-02 Preg Test, Urine Qual Negative Invalid Interpretation Code Negative [facility] Comment on above: Rapid test procedura l [...] ( test) Ql (U) Negative Normal Negative [facility] Comment on above: Result Comment: Rapi [...] serum hCG test. Performed By: #### P EMANUEL, UA ####Unless otherwise noted, all testing performed by [address] [phone]: [id number] Director: Diego Hamilton M.D. Urinalysison 11-12-2017 Bilirubin, Urine Negative Normal NEG;NEGATIV E [facility] Comment on above: Performed By: #### P REGUR, UA ####Unless otherwise noted, all testing performed by [address] [phone]: [id number] Director: Diego Hamilton M.D. Blood, Urine Negative Normal NEG;NEGATIV E [facility] Comment on above: Performed By: #### P REGUR, UA ####Unless otherwise noted, all testing performed by [address] [phone]: [id number] Director: Diego Hamilton M.D. Character Clear Normal [facility] Comment on above: Performed By: #### P REGUR, UA ####Unless otherwise noted, all testing performed by [address] [address] [id number]: [id number] Director: Diego Hamilton M.D. Interpretation and review of laboratory results Abnormal Invalid Interpretation Code [facility] Nitrite, Urine Negative Normal NEG;NEGATIV E [facility] Comment on above: Performed By: #### P REGUR, UA ####Unless otherwise noted, all testing performed by [address] [phone]: [id number] Director: Diego Joy, M.D. Protein, Urine 30 mg/dL High < 30 [facility] Comment on above: Performed By: #### P REGUR, UA ####Unless otherwise noted, all testing performed by [place] [id number]: [id number] Director: Diego Hamilton M.D. RBCs, Urine < 1 Invalid Interpretation Code 0 - 5 /HPF [facility] Specific Fleming 1.024 1 Invalid Interpretation Code 1.003 - 1.029 [facility] Squamous Epithelial 4 /HPF Invalid Interpretation Code 0 - 40 [facility] Urine, color Yellow Normal [facility] Comment on above: Performed By: #### P REGUR, UA ####Unless otherwise noted, all testing performed by [place] [id number]: [id number] Director: Diego Hamilton M.D. Urine, glucose presence Negative Normal NEG; NEGATIV E [facility] Comment on above: Performed By: #### P REGUR, UA ####Unless otherwise noted, all testing performed by [place] [id number]: [id number] Director: Diego Hamilton M.D. Urine, ketones presence Negative Invalid Interpretation Code NEG;NEGATIV E mg/dL [facility] Urine, leukocyte esterase presence Negative Invalid Interpretation Code Negative [facility] Urine, pH 5.0 [pH] Normal 4.5-8.0 [facility] Comment on above: Performed By: #### P REGUR, UA ####Unless otherwise noted, all testing performed by [place] [id number]: [id number] Director: Diego Hamilton M.D. Urobilinogen, Urine < 2.0 Normal <2 [facility] Comment on above: Performed By: #### P REGUR, UA ####Unless otherwise noted, all testing performed by [address] [phone]: [id number] Director: Diego Hamilton M.D. WBCs, Urine 1 /HPF Invalid Interpretation Code 0 - 5 [facility] Urinalysis, Routineon 2017 Ketone,Urine Negative Normal NEG;NEGATIV E [facility] Comment on above: Performed By: #### P REGUR, UA ####Unless otherwise noted, all testing performed by [address] [phone]: [id number] Director: Diego Hamilton M.D. Leuk.Esterase,Urine Negative Normal Negative [facility] Comment on above: Performed By: #### P REGUR, UA ####Unless otherwise noted, all testing performed by [address] [phone]: [id number] Director: Diego Hamilton M.D. Specific Fleming,Urine 1.024 Normal 1.003-1.029 [facility] Comment on above: Performed By: #### P REGUR, UA ####Unless otherwise noted, all testing performed by [address] [phone]: [id number] Director: Diego Hamilton M.D. Squamous Epithelial 4 /HPF Normal 0-40 [facility] Comment on above: Performed By: #### P REGUR, UA ####Unless otherwise noted, all testing performed by [address] [phone]: [id number] Director: Diego Hamilton M.D. Urine, erythrocytes in sediment by area /[HPF] Normal 0-5 [facility] Comment on above: Performed By: #### P REGUR, UA ####Unless otherwise noted, all testing performed by [address] [phone]: [id number] Director: Diego Hamilton M.D. WBC,Urine 1 /HPF Normal 0-5 [facility] Comment on above: Performed By: #### P REGUR, UA ####Unless otherwise noted, all testing performed by [address] [phone]: [id number] Director: Diego Hamilton M.D. CBC and Differentialon 11-11 Basophils Auto #/vol (Bld) 0.0 K/mcL Invalid Interpretation Code 0 - 0.2 [facility] Basophils/100 WBC Auto (Bld) 0.3 % Normal [facility] Comment on above: Performed By: #### C BCDIF, EXCEP, LIPASE ####Unless otherwise noted, all testing performed by [address] [phone]: [id number] Director: Diego Hamilton M.D. Eosinophils 0.1 K/mcL Invalid Interpretation Code 0 - 0.5 [facility] Eosinophils/100 leukocytes 0.6 % Normal [facility] Comment on above: Performed By: #### C BCDIF, EXCEP, LIPASE ####Unless otherwise noted, all testing performed by [address] [phone]: [id number] Director: Diego Hamilton M.D. Erythrocyte distribution width Auto Ratio (RBC) 13.2 % Normal 10.0-14.4 [facility] Comment on above: Performed By: #### C BCDIF, EXCEP, LIPASE ####Unless otherwise noted, all testing performed by [address] [phone]: [id number] Director: Diego Hamilton M.D. Erythrocytes (RBC) 5.13 M/mcL High 3.7 - 5.0 [facility] Hematocrit (HCT) 47.0 % High 34.4-44.8 [facility] Comment on above: Performed By: #### C BCDIF, EXCEP, LIPASE ####Unless otherwise noted, all testing performed by [address] [phone]: [id number] Director: Diego Hamilton M.D. Hemoglobin mass conc (Bld) 15.3 g/dL Normal 11.6-15.4 [facility] Comment on above: Performed By: #### C BCDIF, EXCEP, LIPASE ####Unless otherwise noted, all testing performed by [address] [phone]: [id number] Director: Diego Hamilton M.D. Lymphocytes 1.5 K/mcL Invalid Interpretation Code 1.0 - 3.7 [facility] Lymphocytes/100 leukocytes 12.1 % Normal [facility] Comment on above: Performed By: #### C BCDIF, EXCEP, LIPASE ####Unless otherwise noted, all testing performed by [address] [phone]: [id number] Director: Diego Hamilton M.D. MCH 29.8 pg Normal 27.9-33.9 [facility] Comment on above: Performed By: #### C BCDIF, EXCEP, LIPASE ####Unless otherwise noted, all testing performed by [place] [phone]: [id number] Director: Diego Hamilton M.D. MCHC mass conc (RBC) 32.6 g/dL Low 33.1-35.1 [facility] Comment on above: Performed By: #### C BCDIF, EXCEP, LIPASE ####Unless otherwise noted, all testing performed by [place] [phone]: [id number] Director: Diego Hamilton M.D. MCV 91.5 fL Normal 82.6-98.9 [facility] Comment on above: Performed By: #### C BCDIF, EXCEP, LIPASE ####Unless otherwise noted, all testing performed by [place] [id number]: [id number] Director: Diego Hamilton M.D. Monocytes 0.6 K/mcL Invalid Interpretation Code 0.1 - 0.6 [facility] Monocytes/100 leukocytes 5.1 % Normal [facility] Comment on above: Performed By: #### C BCDIF, EXCEP, LIPASE ####Unless otherwise noted, all testing performed by [place] [phone]: [id number] Director: Diego Hamilton M.D. Neutrophils 10.0 K/mcL High 1.2 - 6.9 [facility] Platelet mean volume (PMV) 11.1 fL High 7.0-10.6 [facility] Comment on above: Performed By: #### C BCDIF, EXCEP, LIPASE ####Unless otherwise noted, all testing performed by [address] [phone]: [id number] Director: Diego Hamilton M.D. Platelets 235 K/mcL Invalid Interpretation Code 162 - 402 [facility] Segmented Neut 81.9 % Invalid Interpretation Code [facility] WBC (Leukocytes) 12.2 K/mcL High 3.4 - 10.6 [facility] CBC with Diffon 11-11-2017 Basophils Auto #/vol (Bld) 0.0 K/mcL Normal 0-0.2 [facility] Comment on above: Performed By: #### C BCDIF, EXCEP, LIPASE ####Unless otherwise noted, all testing performed by [address] [phone]: [id number] Director: Diego Hamilton M.D. Eosinophils 0.1 K/mcL Normal 0-0.5 [facility] Comment on above: Performed By: #### C BCDIF, EXCEP, LIPASE ####Unless otherwise noted, all testing performed by [address] [phone]: [id number] Director: Diego Hamilton M.D. Erythrocytes (RBC) 5.13 M/mcL High 3.7-5.0 [facility] Comment on above: Performed By: #### C BCDIF, EXCEP, LIPASE ####Unless otherwise noted, all testing performed by [address] [phone]: [id number] Director: Diego Hamilton M.D. Lymphocytes 1.5 K/mcL Normal 1.0-3.7 [facility] Comment on above: Performed By: #### C BCDIF, EXCEP, LIPASE ####Unless otherwise noted, all testing performed by [place] [id number]: [id number] Director: Diego Hamilton M.D. Monocytes 0.6 K/mcL Normal 0.1-0.6 [facility] Comment on above: Performed By: #### C BCDIF, EXCEP, LIPASE ####Unless otherwise noted, all testing performed by [place] [id number]: [id number] Director: Diego Hamilton M.D. Neutrophils 10.0 K/mcL High 1.2-6.9 [facility] Comment on above: Performed By: #### C BCDIF, EXCEP, LIPASE ####Unless otherwise noted, all testing performed by [place] [phone]: [id number] Director: Diego Hamilton M.D. Platelets 235 K/mcL Normal 162-402 [facility] Comment on above: Performed By: #### C BCDIF, EXCEP, LIPASE ####Unless otherwise noted, all testing performed by [place] [id number]: [id number] Director: Diego Hamilton M.D. Segmented Neut % 81.9 % Normal [facility] Comment on above: Performed By: #### C BCDIF, EXCEP, LIPASE ####Unless otherwise noted, all testing performed by [address] [phone]: [id number] Director: Diego Hamilton M.D. WBC (Leukocytes) 12.2 K/mcL High 3.4-10.6 [facility] Comment on above: Performed By: #### C BCDIF, EXCEP, LIPASE ####Unless otherwise noted, all testing performed by [address] [id number]: [id number] Director: Diego Hamilton M.D. Exception Noticeon 8 Exception Notice Complete Metabolic Panel cancelled due to hemolysis. Will be redrawn. Normal [facility] Comment on above: Performed By: #### C BCDIF, EXCEP, LIPASE ####Unless otherwise noted, all testing performed by [address] [phone]: [id number] Director: Diego Hamilton M.D. Lipaseon 11-11-2017 Interpretation and review of laboratory results Abnormal Invalid Interpretation Code [facility] Lipase 52 U/L Low 73-393 [facility] Comment on above: Performed By: #### C BCDIF, EXCEP, LIPASE ####Unless otherwise noted, all testing performed by [address] [phone]: [id number] Director: Diego Hamilton M.D. US TRANSVAGINAL WITH [...] Date Time Vital Sign Value Performing Clinician Faci lity 07-29-2023 13:08-0400 Body height 162.6 cm Dana Mcdonough MD Work Phone: [facility] 07-29-2023 13:08-0400 Body mass index (BMI) [Ratio] 38.21 kg/m2 Dana Mcdonough MD Work Phone: [facility] [employer] [facility] 07-29-2023 13:08-0400 Body weight 100.97 kg Dana Mcdonough MD Work Phone: [facility] [employer] [facility] 07-29-2023 13:08-0400 Diastolic blood pressure 64 mm[Hg] Dana Mcdonough MD Work Phone: [facility] [employer] [facility] 07-29-2023 13:08-0400 Heart rate 88 /min Dana Mcdonough MD Work Phone: [facility] [employer] [facility] 07-29-2023 13:08-0400 Systolic blood pressure 105 mm[Hg] Dana Mcdonough MD Work Phone: [facility] [employer] [facility] 12-19-2022 10:04-0400 Body mass index (BMI) [Ratio] 39.51 kg/m2 Matthew Tafoya MD Work Phone: [employer] 12-19-2022 10:04-0400 Body temperature 98.29 [degF] Matthew Tafoya MD Work Phone: [employer] 12-19-2022 10:04-0400 Body weight 104.42 kg Matthew Tafoya MD Work Phone: [employer] 12-19-2022 10:04-0400 Diastolic blood pressure 82 mm[Hg] Matthew Tafoya MD Work Phone: [facility] 12-19-2022 10:04-0400 Heart rate 106 /min Matthew Tafoya MD Work Phone: [facility] 12-19-2022 10:04-0400 Respiratory rate 16 /min Matthew Tafoya MD Work Phone: [facility] 12-19-2022 10:04-0400 SaO2% (BldA) [Mass fraction] 95 % Matthew Tafoya MD Work Phone: [facility] 12-19-2022 10:04-0400 Systolic blood pressure 119 mm[Hg] Matthew Tafoya MD Work Phone: [facility] 12-06-2022 13:24-0400 Body temperature 98.42 [degF] Graham Дмитрий [facility] 12-06-2022 13:24-0400 Diastolic blood pressure 75 mm[Hg] Graham Choe [facility] 12-06-2022 13:24-0400 Heart rate 95 /min Graham Choe [facility] 12-06-2022 13:24-0400 Mean blood pressure 95 mm[Hg] Graham Choe [facility] 12-06-2022 13:24-0400 Respiratory rate 18 /min Graham Choe [facility] 12-06-2022 13:24-0400 SaO2% (BldA) [Mass fraction] 96 % Graham Choe [facility] 12-06-2022 13:24-0400 Systolic blood pressure 136 mm[Hg] Graham Choe [facility] 06-16-2022 01:37-0500 Body height 162.6 cm Hoang Santos MD Work Phone: [employer] 06-16-2022 01:37-0500 Body mass index (BMI) [Ratio] 39.94 kg/m2 Hoang Santos MD Work Phone: [employer] 06-16-2022 01:37-0500 Body temperature 98.01 [degF] Hoang Santos MD Work Phone: [employer] 06-16-2022 01:37-0500 Body weight 105.55 kg Hoang Santos MD Work Phone: [employer] 06-16-2022 01:37-0500 Diastolic blood pressure 77 mm[Hg] Hoang Santos MD Work Phone: [employer] 06-16-2022 01:37-0500 Heart rate 88 /min Hoang Santos MD Work Phone: [employer] 06-16-2022 01:37-0500 Respiratory rate 16 /min Hoang Santos MD Work Phone: [employer] 06-16-2022 01:37-0500 SaO2% (BldA) [Mass fraction] 98 % Hoang Santos MD Work Phone: [employer] 06-16-2022 01:37-0500 Systolic blood pressure 122 mm[Hg] Hoang Santos MD Work Phone: [employer] 03-13-2022 09:30-0500 Body height 162.6 cm Bea Jacobs MD Work Phone: [employer] 03-13-2022 09:30-0500 Body mass index (BMI) [Ratio] 37.81 kg/m2 Bea Jacobs MD Work Phone: [employer] 03-13-2022 09:30-0500 Body temperature 98.2 [degF] Bea Jacobs MD Work Phone: [employer] 03-13-2022 09:30-0500 Body weight 99.93 kg Bea Jacobs MD Work Phone: [employer] 03-13-2022 09:30-0500 Diastolic blood pressure 72 mm[Hg] Bea Jacobs MD Work Phone: [employer] 03-13-2022 09:30-0500 Heart rate 76 /min Bea Jacobs MD Work Phone: [employer] 03-13-2022 09:30-0500 Respiratory rate 18 /min Bea Jacobs MD Work Phone: [employer] 03-13-2022 09:30-0500 SaO2% (BldA) [Mass fraction] 96 % Bea Jacobs MD Work Phone: [employer] 03-13-2022 09:30-0500 Systolic blood pressure 116 mm[Hg] Bea Jacobs MD Work Phone: [employer] 11-29-2021 14:37-0400 Diastolic blood pressure 69 mm[Hg] Bea Jacobs MD Work Phone: [employer] 11-29-2021 14:37-0400 Heart rate 80 /min Bea Jacobs MD Work Phone: [employer] 11-29-2021 14:37-0400 SaO2% (BldA) [Mass fraction] 96 % Bea Jacobs MD Work Phone: [employer] 11-29-2021 14:37-0400 Systolic blood pressure 112 mm[Hg] Bea Jacobs MD Work Phone: [employer] 11-29-2021 14:36-0400 Body height 162.6 cm Bea Jacobs MD Work Phone: [employer] 11-29-2021 14:36-0400 Body mass index (BMI) [Ratio] 36.39 kg/m2 Bea Jacobs MD Work Phone: [employer] 11-29-2021 14:36-0400 Body temperature 99.5 [degF] Bea Jacobs MD Work Phone: [employer] 11-29-2021 14:36-0400 Body weight 96.16 kg Bea Jacobs MD Work Phone: [employer] 11-29-2021 14:36-0400 Respiratory rate 18 /min [facility] 05-22-2021 14:29-0500 Body mass index (BMI) [Ratio] 32.89 kg/m2 Hoang Santos MD Work Phone: [employer] 05-22-2021 14:29-0500 Body temperature 99.5 [degF] Hoang Santos MD Work Phone: [employer] 05-22-2021 14:29-0500 Body weight 92.44 kg Hoang Santos MD Work Phone: [employer] 05-22-2021 14:29-0500 Diastolic blood pressure 61 mm[Hg] Hoang Santos MD Work Phone: [employer] 05-22-2021 14:29-0500 Heart rate 97 /min Hoang Santos MD Work Phone: [employer] 05-22-2021 14:29-0500 Respiratory rate 18 /min Hoang Santos MD Work Phone: [employer] 05-22-2021 14:29-0500 SaO2% (BldA) [Mass fraction] 96 % Hoang Santos MD Work Phone: [employer] 05-22-2021 14:29-0500 Systolic blood pressure 117 mm[Hg] Hoang Santos MD Work Phone: [employer] 04-12-2021 18:20-0500 Body temperature 98.6 [degF] Dana Redman MD Work Phone: [employer] 04-12-2021 18:20-0500 Diastolic blood pressure 75 mm[Hg] Dana Redman MD Work Phone: [employer] 04-12-2021 18:20-0500 Heart rate 92 /min Dana Redman MD Work Phone: [employer] 04-12-2021 18:20-0500 Respiratory rate 20 /min Dana Redman MD Work Phone: [employer] 04-12-2021 18:20-0500 SaO2% (BldA) [Mass fraction] 96 % Dana Redman MD Work Phone: [employer] 04-12-2021 18:20-0500 Systolic blood pressure 118 mm[Hg] Dana Redman MD Work Phone: [employer] 04-12-2021 18:18-0500 Body height 167.6 cm Dana Redman MD Work Phone: [employer] 04-12-2021 18:18-0500 Body mass index (BMI) [Ratio] 32.28 kg/m2 Dana Redman MD Work Phone: [employer] 04-12-2021 18:18-0500 Body weight 90.72 kg Dana Redman MD Work Phone: [employer] 02-10-2021 17:39-0400 Body temperature 99.1 [degF] Braydon May MD Work Phone: [employer] Work Phone: 02-10-2021 17:27-0400 Body height 162.6 cm Braydon May MD Work Phone: [employer] Work Phone: 02-10-2021 17:27-0400 Body mass index (BMI) [Ratio] 37.75 kg/m2 Braydon May MD Work Phone: [employer] Work Phone: 02-10-2021 17:27-0400 Body weight 99.75 kg Braydon May MD Work Phone: [employer] Work Phone: 02-10-2021 17:27-0400 Diastolic blood pressure 84 mm[Hg] Braydon May MD Work Phone: [employer] Work Phone: 02-10-2021 17:27-0400 Heart rate 83 /min Braydon May MD Work Phone: [employer] Work Phone: 02-10-2021 17:27-0400 Respiratory rate 20 /min Braydon May MD Work Phone: [employer] Work Phone: 02-10-2021 17:27-0400 SaO2% (BldA) [Mass fraction] 95 % Braydon May MD Work Phone: [employer] Work Phone: 02-10-2021 17:27-0400 Systolic blood pressure 128 mm[Hg] Braydon May MD Work Phone: [employer] Work Phone: 12-10-2020 19:54-0400 Diastolic blood pressure 63 mm[Hg] Bea Jacobs MD Work Phone: [employer] Work Phone: 12-10-2020 19:54-0400 SaO2% (BldA) [Mass fraction] 97 % Bea Jacobs MD Work Phone: [employer] Work Phone: 12-10-2020 19:54-0400 Systolic blood pressure 111 mm[Hg] Bea Jacobs MD Work Phone: [employer] Work Phone: 08-01-2020 18:44-0400 BMI (Body Mass Index) 33.47 kg/m2 [facility] [employer] Work Phone: 08-01-2020 18:44-0400 Body Temperature 97.9 [degF] Bea Jacobs [employer] Work Phone: 08-01-2020 18:44-0400 Body weight 88.45 kg Bea Jacobs [employer] Work Phone: 08-01-2020 18:44-0400 BP Diastolic 72 mm[Hg] Bea Jacobs [employer] Work Phone: 08-01-2020 18:44-0400 BP Systolic 127 mm[Hg] [facility] [employer] Work Phone: 08-01-2020 18:44-0400 Height 162.6 cm [facility] [employer] Work Phone: 08-01-2020 18:44-0400 Pulse (Heart Rate) 93 /min [facility] [employer] Work Phone: 08-01-2020 18:44-0400 Pulse Oximetry 99 % [facility] [employer] Work Phone: 08-01-2020 18:44-0400 Respiratory Rate 16 /min [facility] [employer] Work Phone: 01-04-2020 12:33-0400 BMI (Body Mass Index) 32.96 kg/m2 [facility] 01-04-2020 12:33-0400 Body Temperature 98.1 [degF] [facility] 01-04-2020 12:33-0400 Body weight 87.09 kg [facility] 01-04-2020 12:33-0400 BP Diastolic 63 mm[Hg] [facility] 01-04-2020 12:33-0400 BP Systolic 115 mm[Hg] [facility] 01-04-2020 12:33-0400 Height 162.6 cm [facility] 01-04-2020 12:33-0400 Pulse (Heart Rate) 83 /min Juanito Hernandez [facility] 01-04-2020 12:33-0400 Pulse Oximetry 97 % Juanito Hernandez [facility] 12-23-2019 21:12-0400 BMI (Body Mass Index) 32.96 kg/m2 [facility] [place] 12-23-2019 21:12-0400 Body Temperature 98.71 [degF] [facility], [place] 12-23-2019 21:12-0400 Body weight 87.09 kg [facility] nPario [facility], [place] 12-23-2019 21:12-0400 BP Diastolic 69 mm[Hg] [facility] nPario [facility], [place] 12-23-2019 21:12-0400 BP Systolic 129 mm[Hg] [facility] [place] 12-23-2019 21:12-0400 Pulse (Heart Rate) 102 /min [facility], [place] 12-23-2019 21:120400 Pulse Oximetry 100 % [facility] [place] 12-23-2019 21:120400 Respiratory Rate 18 /min [facility], [place] 10-22-2019 12:21-0400 BMI (Body Mass Index) 33.3 kg/m2 [facility], [place] 10-22-2019 12:21-0400 Body Temperature 98.8 [degF] [employer]in [employer] [facility], [place] 10-22-2019 12:210400 Body weight 88 kg [facility] [facility] [place] 10-22-2019 12:21-0400 BP Diastolic 67 mm[Hg] [facility] , [place] 10-22-2019 12:21-0400 BP Systolic 113 mm[Hg] [employer]in [employer] [facility] , [place] 10-22-2019 12:21-0400 Height 162.6 cm Arin Emma [facility] , [place] 10-22-2019 12:21-0400 Pulse (Heart Rate) 77 /min [facility], [place] 10-22-2019 12:21-0400 Pulse Oximetry 98 % Arin Carter [facility] , [place] 10-22-2019 12:21-0400 Respiratory Rate 18 /min Arin Celeste [facility], [place] 04-06-2019 13:49-0500 Pulse Oximetry 98 % Bea Jacobs [facility], [place] 04-06-2019 13:39-0500 BP Diastolic 92 mm[Hg] [facility], [place] 04-06-2019 13:39-0500 BP Systolic 119 mm[Hg] [facility], [place] 04-06-2019 13:37-0500 Body Temperature 97.59 [degF] [facility], [place] 04-06-2019 13:37-0500 Body weight 84.82 kg [facility], [place] 04-06-2019 13:37-0500 Pulse (Heart Rate) 77 /min [facility], [place] 04-06-2019 13:37-0500 Respiratory Rate 16 /min [facility] Reynaldo [facility], [place] Encounters Encounter Date Encounter Type Care Provider Facility Start: 10-22-2023 ambulatory Redd Dueñas acility:[facility] Start: 10-20-2023 End: 10-20-2023 ambulatory LOY ASHER Not Available Start: 10-13-2023 End: 10-13-2023 Emergency department patient visit GAYE [facility] Start: 10-09-2023 End: 10-09-2023 Emergency department patient visit JACOBO Janis [facility] Start: 08-29-2023 End: 08-30-2023 ambulatory LOY ASHER [facility] Start: 08-18-2023 End: 08-18-2023 ambulatory HILLMAN Janis [facility] Start: 07-29-2023 End: 07-29-2023 Office outpatient new 45 minutes Dana Mcdonough MD Work Phone: [facility] Comment on above: Type 2 diabetes ashley itus affecting in second trimester, antepartum (Primary Dx); Twin , dichorionic/diamniotic, second trimester; Obesity affecting in second trimester, unspecified obesity type; Bipolar disease during in second trimester ([facility]); Post traumatic stress disorder; Tobacco smoking affecting in second trimester Start: 07-29-2023 End: 07-30-2023 Orders Only Dawit Carter [facility] Comment on above: Type 2 diabetes ashley itus affecting in second trimester, antepartum (Primary Dx); Twin , dichorionic/diamniotic, second trimester; Bipolar disease during in second trimester ([facility] Start: 07-24-2023 Telephone encounter Thuy CRESPO [facility]- [facility] at [facility] Start: 07-15-2023 Telephone encounter Rosa crane RN Work Phone: [facility]- Medicine at [facility] Start: 07-09-2023 Orders Only Not In System Ref Prov M[facility]- Medicine at [facility] Start: 06-30-2023 End: 06-30-2023 ambulatory LOY YOGI Not Available Start: 05-30-2023 End: 05-30-2023 ambulatory LOY YOGI Not Available Start: 05-15-2023 End: 05-15-2023 ambulatory LOY YOGI Not Available Start: 04-01-2023 End: 04-01-2023 Emergency department patient visit [facility] Start: 02-13-2023 End: 02-13-2023 ambulatory [facility] Start: 12-22-2022 End: 12-22-2022 Emergency department patient visit [facility] Start: 12-19-2022 End: 12-19-2022 Emergency department patient visit Matthew Tafoya MD Work Phone: [facility] ED Comment on above: Acute cystitis witho ut hematuria (Primary Dx); Vaginal yeast infection Start: 12-06-2022 End: 12-06-2022 Emergency department patient visit Graham Choe Facility:[facility] Start: 12-06-2022 End: 12-06-2022 Emergency department patient visit Graham Choe [facility] Start: 06-16-2022 End: 06-16-2022 Emergency department patient visit Hoang Santos MD Work Phone: [facility] ED Comment on above: Nausea and vomiting, unspecified vomiting type (Primary Dx); Intractable headache, unspecified chronicity pattern, unspecified headache type Start: 03-13-2022 End: 03-13-2022 Emergency department patient visit Bea Jacobs MD Work Phone: [facility] ED Comment on above: Acute midline low ba ck pain without sciatica (Primary Dx) Start: 11-29-2021 End: 11-29-2021 Emergency department patient visit Bea Jacobs MD Work Phone: [facility] ED Comment on above: Hordeolum externum o f right lower eyelid (Primary Dx) Start: 10-24-[address] DOCTOR FRANCISCO Facility :[facility] Start: 10-17-[address] DOCTOR FRANCISCO Facility :[facility] Start: 10-10-[address] DOCTOR FRANCISCO Facility :[facility] Start: 10-03-[address] DOCTOR FRANCISCO Facility :[facility] Start: 10-03-2021 End: 10-05-2021 Evaluation and management of inpatient DR LOY ASHER Facility:[facility] Start: 10-01-2021 End: 10-01-[address] MARCK ESTES Facility:[facility] Start: 09-29-2021 End: 09-29-[address] MARCK ESTES Facility:[facility] Start: 09-26-2021 End: 09-26-[address] LOY ASHER Facility:[facility] Start: 09-26-2021 End: 09-26-[address] MARCK ESTES Facility:[facility] Start: 09-22-2021 End: 09-22-[address] LOY ASHER Facility:[facility] Start: 09-19-2021 End: 09-19-[address] LOY ASHER Facility:[facility] Start: 09-15-2021 End: 09-15-[address] LOY ASHER Facility:[facility] Start: 09-12-2021 End: 09-12-[address] MARCK ESTES Facility:[facility] Start: 09-08-2021 End: 09-08-[address] LOY ASHER Facility:[facility] Start: 09-05-2021 End: 09-05-[address] MARCK ESTES Facility:[facility] Start: 08-30-2021 End: 08-30-[address] LOY ASHER Facility:[facility] Start: 08-29-2021 End: 08-30-[address] DOCTOR FRANCISCO Facility:[facility] Start: 08-24-2021 End: 08-24-[address] MARCK ESTES Facility:[facility] Start: 07-30-2021 End: 07-31-[address] LOY ASHER Facility:[facility] Start: 07-17-2021 End: 07-18-[address] LOY ASHER Facility:[facility] Start: 06-18-2021 End: 06-18-[address] LOY ASHER Facility:[facility] Start: 06-02-[address] LOY ASHER Facility :[facility] Start: 05-31-2021 End: 06-01-2021 [facility] Start: 05-22-2021 End: 05-22-2021 Emergency department patient visit Hoang Santos MD Work Phone: [facility] ED Comment on above: COVID-19 virus infec tion (Primary Dx); Second trimester Start: 04-12-2021 End: 04-12-2021 Emergency department patient visit Dana Redman MD Work Phone: [facility] ED Comment on above: Depression during pr egnancy in first trimester (Primary Dx); Dehydration Start: 04-01-2021 End: 04-01-2021 Emergency department patient visit [facility] Start: 03-25-2021 End: 03-25-2021 Emergency department patient visit [facility] Start: 02-10-2021 End: 02-10-2021 Emergency department patient visit Braydon May MD Work Phone: [facility] ED Comment on above: Threatened miscarria ge in early (Primary Dx) Start: 12-10-2020 End: 12-10-2020 Emergency department patient visit Bea Jacobs MD Work Phone: [facility] ED Comment on above: Symptoms of dehydrat ion (Primary Dx); Nausea vomiting and diarrhea Start: 08-02-2020 End: 08-07-2020 Evaluation and management of inpatient BEA JACOBS [facility] Start: 08-01-2020 End: 08-02-2020 Emergency department patient visit Bea Jacobs Work Phone: [facility] ED Comment on above: Suicidal thoughts (P rimary Dx); Depression with suicidal ideation Start: 05-22-2020 End: 05-26-[address] [facility] Start: 03-22-2020 End: 03-26-[address] [facility] Start: 01-18-2020 End: 01-18-2020 Subsequent hospital visit by physician Perla TONEY Laboratory Comment on above: Palpitations Start: 01-04-2020 End: 01-04-2020 Patient encounter procedure [facility] Start: 01-04-2020 End: 01-04-2020 Office outpatient visit 25 minutes [facility] Work Phone: [facility] Comment on above: Anxious depression ( Primary Dx); Smoker; Weight gain; Fatigue, unspecified type; Screening cholesterol level Start: 12-23-2019 End: 12-23-2019 Emergency department patient visit Hoang Santos Work Phone: [facility] ED Comment on above: Bronchitis (Primary Dx) Start: 11-22-2019 End: 11-22-2019 Patient encounter procedure [facility] Start: 11-12-2019 End: 11-12-2019 Patient encounter procedure [facility] Start: 11-01-2019 End: 11-01-2019 Subsequent hospital visit by physician [facility] Comment on above: Exposure to COVID-19 virus; Cough in adult patient Start: 10-22-2019 End: 10-22-2019 Emergency department patient visit Arin Carter Work Phone: [facility] ED Comment on above: Acute bronchitis, un specified organism (Primary Dx); Tobacco abuse; Encounter for laboratory testing for COVID-19 virus Start: 04-06-2019 End: 04-06-2019 Emergency department patient visit Bea Jacobs Work Phone: [facility] ED Comment on above: Bronchitis (Primary Dx); Acute sinusitis, recurrence not specified, unspecified location Start: 11-11-2017 End: 11-12-2017 Emergency department patient visit [place] [facility] Facility:[place] Start: 11-11-2017 End: 11-11-2017 Ambulatory [facility] Work Phone: [facility] Start: 01-20-2017 Ambulatory [facility] Start: 01-16-2017 [facility] Procedures Date Procedure Procedure Detail Performing Clinician Start: 06-20-2023 Antibody screen Dana Dang MD Work Phone: Start: 06-20-2023 Hemoglobin glycosyla rayray a1c Dana Mcdonough MD Work Phone: Start: 06-20-2023 HIV 1&2 AB/AG SCREEN (P24 AG) Not In System Ref Prov Start: 06-20-2023 Iaad ia hepatitis b surface antigen Not In System Ref Prov Start: 06-20-2023 Syphilis test non-treponemal antibody qual Not In System Ref Prov Start: 06-20-2023 TYPE AND SCREEN Not In System Ref Prov Start: 05-30-2023 ULTRASOUND OFFICE Not I n System Ref Prov Start: 12-19-2022 Urinalysis microscop ic only Matthew [...] Phone: Start: 08-01-2020 Drug screen class list antonio Jacobs Work Phone: Start: 08-01-2020 Assay of salicylate Chr dianelys Jacobs Work Phone: Start: 08-01-2020 Assay of thyroid stimulating hormone tsh Bea Carrasco Reynaldo Work Phone: Start: 08-01-2020 Basic metabolic pane l calcium total Bea Carrasco Reynaldo Work Phone: Start: 08-01-2020 Blood count complete auto&auto difrntl wbc Bea Carrasco Reynaldo Work Phone: Start: 08-01-2020 Gonadotropin chorion ic qualitative Bea Danilo Reynaldo Work Phone: Start: 08-01-2020 Assay of acetaminophen Noelneetu Carrasco Reynaldo Work Phone: Start: 08-01-2020 Assay of ethanol Noel Carrasco Reynaldo Work Phone: Start: 08-01-2020 COVID-19, RAPID Celso Carrasco Reynaldo Work Phone: Start: 03-22-2020 Microscopic observat ion [Identifier] in Cervix by Cyto stain Braydon May MD Work Phone: Start: 01-18-2020 Assay of thyroid stimulating hormone tsh Perla Ramon Rm Work Phone: Start: 01-18-2020 Blood count complete auto&auto difrntl wbc Perla Ramon Rm Work Phone: Start: 01-18-2020 Comprehensive metabo lic panel Perla Rm Work Phone: Start: 04-06-2019 Radiologic exam ches t 2 views Noelneetu Carrasco Reynaldo Work Phone: Start: 04-06-2019 BASIC METABOLIC PANE L W/ REFLEX TO MG FOR LOW K Noelshaileshlachelle Jacobs Work Phone: Start: 04-06-2019 Blood count complete auto&auto difrntl wbc Noelneetu Carrasco Reynaldo Work Phone: Start: 04-06-2019 Fibrin dgradj produc ts d-dimer quantitative Bea Jacobs Work Phone: Start: 04-06-2019 Gonadotropin chorion ic qualitative Bea Jacobs Work Phone: Excision of elan [place] is Plan of Treatment Date Care Activity Detail Author Start: 07-28-2024 Adult BMI Screening Adult BMI Screen ing [facility] Start: 07-28-2024 Tobacco Screening Tobacco Screening [facility] Start: 07-28-2024 End: 07-28-2024 US MFM with or without consult US MFM with or without consult Imaging Routine Twin , dichorionic/diamniotic, second trimester Bipolar disease during in second trimester ([facility]) Expected: 07/28/2024 (Approximate), Expires: 07/28/2024 [facility] Work Phone: Comment on above: Expected: 07/28/2024 (Approximate), Expires: 07/28/2024 Start: 08-29-2023 End: 08-29-2023 Patient encounter procedure 08/29/2023 1:[address] [facility] [address] [place] [phone] [facility] Start: 07-29-2023 End: 07-29-[address] [facility] Start: 07-15-2023 End: 07-15-2023 Patient encounter procedure 07/15/2023 2:00 PM EDT Office Visit Maternal- Medicine at [facility] [address] [place] [phone] Gaby Bustillos, PACristyC [address] [place] [id number] [facility] at [facility] Start: 07-15-2023 End: 07-15-2023 ambulatory 07/15/2023 1:00 PM EDT Support Visit Maternal- Medicine at [facility] [address] [place] [phone] Rosa Rocha RN [address] [facility], [address] [place] [id number] Carmen Cheung LD M[facility]- Medicine at [facility] Start: 03-22-2023 Screening for malign ant neoplasm of cervix Pap smear [facility] Start: 01-03-2023 Influenza vaccination Influenza Vacc ine [facility] Start: 12-03-2022 Influenza vaccination Flu vaccine (# 1) [facility] Start: 03-29-2022 Screening for Chlamy deisy trachomatis [facility] Start: 01-03-2022 Influenza vaccination Flu vaccine (# 1) [facility] Start: 12-03-2021 Influenza vaccination Flu vaccine (# 1) [facility] Start: 05-31-2021 End: 05-31-2021 Patient encounter procedure 05/31/2021 Routine Perinatology [facility] Start: 01-17-2021 Depression Monitoring Depression Sapphire valle [facility] Start: 01-03-2021 Influenza vaccination Flu vaccine (# 1) [facility] Start: 04-04-2020 End: 01-03-2021 Complete blood count with white cell differential, manual CBC and Differential Lab Routine Fatigue, unspecified type Expected: 04/04/2020 (Approximate), Expires: 01/03/2021 [facility] Comment on above: Expected: 04/04/2020 (Approximate), Expires: 01/03/2021 Start: 04-04-2020 End: 01-03-2021 Comprehensive metabolic 2000 panel Comprehensive Metabolic Panel Lab Routine Fatigue, unspecified type Expected: 04/04/2020 (Approximate), Expires: 01/03/2021 [facility] Comment on above: Expected: 04/04/2020 (Approximate), Expires: 01/03/2021 Start: 04-04-2020 End: 01-03-2021 Magnesium [Mass/Vol] Magnesium Level Lab Routine Fatigue, unspecified type Expected: 04/04/2020 (Approximate), Expires: 01/03/2021 [facility] Comment on above: Expected: 04/04/2020 (Approximate), Expires: 01/03/2021 Start: 02-18-2020 End: 02-18-2020 Office Visit 02/18/2020 Office Visit Family Medicine Perla Rm, DO [address] [place] [phone] [facility] Start: 02-15-2020 End: 02-15-2020 Office Visit 02/15/2020 Office Visit Primary Care Juanito Hernandez MD [address] [place] [address] [phone] [facility] Start: 01-04-2020 Influenza vaccination [place], [place] Start: 01-04-2020 Influenza vaccinatio n given Sequential Influenza Vaccine (#1) [facility] Start: 12-12-2019 DTaP,Tdap and Td Vaccines (7 - Td or Tdap) DTaP,Tdap and Td Vaccines (7 - Td or Tdap) [facility] Start: 12-12-2019 DTaP/Tdap/Td vaccine (7 - Td or Tdap) DTaP/Tdap/Td vaccine (7 - Td or Tdap) [facility] Start: 07-16-2019 Screening for Chlamy deisy trachomatis Chlamydia Screening [facility] Start: 01-03-2019 Influenza vaccination Flu vaccine (# 1) [employer], [place] Start: 2018 Cervical cancer screen Cervical canc er screen [employer], [place] Start: 2018 Screening for malign ant neoplasm of cervix [facility] Start: 2016 DTaP,Tdap and Td Vaccines (1 - Tdap) DTaP,Tdap and Td Vaccines (1 - Tdap) [facility] Start: 2016 DTaP/Tdap/Td vaccine (1 - Tdap) DTaP/Tdap/Td vaccine (1 - Tdap) [facility] Start: 08-15-2015 Adult BMI Follow Up Plan Adult BMI Follow Up Plan [facility] Start: 08-15-2015 Adult BMI Screening Adult BMI Screen ing [facility] Start: 08-15-2015 Diabetic foot examination Diabetic Foot Exam [facility] Start: 04-12-2016 Hepatitis C screening Hepatitis C sc reen [facility] Start: 2013 Chlamydia screen Chlamydia screen [place], [place] Start: 2013 COVID-19 Vaccine (1) COVID-19 Vaccin e (1) [facility] Work Phone: Start: 2013 Screening for Chlamy deisy trachomatis Chlamydia screen [facility] Start: 2012 HIV screen HIV screen [place], [place] Start: 2012 HIV screening [facility] Start: 03-05-2010 Varicella vaccine (2 of 2 - 2-dose childhood series) Varicella vaccine (2 of 2 - 2-dose childhood series) [facility] Start: 2009 COVID-19 Vaccine (1) COVID-19 Vaccin e (1) [facility] Start: 2009 Depression Monitoring Depression [facility] Start: 2009 [facility] Start: 2009 Tobacco Screening Tobacco Screening [facility] Start: 2008 DTaP/Tdap/Td vaccine (1 - Tdap) DTaP/Tdap/Td vaccine (1 - Tdap) [employer] Start: 2008 HPV vaccine (1 - 2-d ose series) HPV vaccine (1 - 2-dose series) [facility] Start: 2008 HPV vaccine (1 - Fem man 2-dose series) HPV vaccine (1 - Female 2-dose series) [employer], [place] Start: 2008 Vaccination for maria del carmen n papillomavirus HPV Vaccines (1 - 2-dose series) [facility] Start: 08-15-2003 Pneumococcal 0-64 ye ars Vaccine (1 - PCV) Pneumococcal 0-64 years Vaccine (1 - PCV) [facility] Start: 08-15-2003 Pneumococcal 0-64 ye ars Vaccine (1 of 1 - PPSV23) Pneumococcal 0-64 years Vaccine (1 of 1 - PPSV23) [employer], [place] Start: 08-15-2003 Pneumococcal 0-64 ye ars Vaccine (1 of 2 - PPSV23) Pneumococcal 0-64 years Vaccine (1 of 2 - PPSV23) [facility] Start: 2002 COVID-19 Vaccine (1) COVID-19 Vaccin e (1) [facility] Start: 2000 History and physical examination, annual for health maintenance Wellness Visit [facility] Start: 1998 Varicella Vaccine (1 of 2 - 2-dose childhood series) Varicella Vaccine (1 of 2 - 2-dose childhood series) [facility] Start: 02-13-1998 COVID-19 Vaccine (#1) COVID-19 Vacci ne (#1) [facility] Start: 1997 Depression screening using PHQ-9 (Patient Health Questionnaire 9) score Depression Screening (PHQ9) [facility] Start: 1997 Glaucoma screening Diabetic Op hthalmology Exam [facility] Start: 1997 Hepatitis C screening [facility] Start: 1997 Screening for malign ant neoplasm of cervix Pap Smear [facility] Start: 1997 Tetanus vaccination Tetanus: Every 1 0yrs [facility] Start: 1997 Tobacco Counseling Tobacco Counselin g [facility] Start: 1997 Urine screening for protein Urine Microalbumin [facility] End: 01-03-2021 Cholesterol [Mass/Vol] Cholesterol, Total Lab Routine Screening cholesterol level 1 Occurrences starting 01/04/2020 until 01/03/2021 [facility] Comment on above: 1 Occurrences starti ng 01/04/2020 until 01/03/2021 End: 10-22-2019 COVID-19 COVID-19 Lab Routine One Time for 1 Occurrences starting 10/22/2019 until 10/22/2019 [facility] Comment on above: One Time for 1 Occur rences starting 10/22/2019 until 10/22/2019 End: 11-01-2019 Covid-19 Ambulatory Covid-19 Ambulatory Lab Routine Exposure To Covid-19 Virus Cough in adult patient 1 Occurrences starting 11/01/2019 until 11/01/2019 [facility] Comment on above: 1 Occurrences starti ng 11/01/2019 until 11/01/2019 Covid-19 Ambulatory Covid-19 Amb ulatory Lab Routine Exposure to COVID-19 virus Cough in adult patient 11/01/2019 11:25 AM EDT [facility] End: 02-10-2021 Culture, Urine Culture, Urine Microbiology Routine Once for 1 Occurrences starting 02/10/2021 until 02/10/2021 [employer] Work Phone: Comment on above: Once for 1 Occurrenc es starting 02/10/2021 until 02/10/2021 Culture, Urine Culture, Urine Microbiology Routine 02/10/2021 5:41 PM EDT [employer] Work Phone: End: 12-19-2022 Culture, Urine [facility] Comment on above: Once for 1 Occurrenc es starting 12/19/2022 until 12/19/2022 End: 10-22-2019 MDI Treatment MDI Treatment Respiratory Care Routine One Time for 1 Occurrences starting 10/22/2019 until 10/22/2019 [facility] Comment on above: One Time for 1 Occur rences starting 10/22/2019 until 10/22/2019 MDI Treatment MDI Treatment Respiratory Care Routine Every 6hr As Needed until discontinued starting 10/22/2019 [facility] Comment on above: Every 6hr As Needed until discontinued starting 10/22/2019 End: 01-03-2021 TSH Qn TSH with Reflex Free T4 Lab Routine Weight gain Fatigue, unspecified type 1 Occurrences starting 01/04/2020 until 01/03/2021 [facility] Comment on above: 1 Occurrences starti ng 01/04/2020 until 01/03/2021 Immunizations Immunization Date Immunization Notes Care Provider N[place] 03-02-2012 influenza virus vaccine, unspecified formulation Dawit Carter [facility] NEGATED: Highlighted row has not occurred!06-13-2020 influenza virus vaccine, unspecified formulation Graham Choe [facility] Payers Date Payer Category Payer Medicaid [employer] HMO [id number] 2023-Present [phone] [address] [place] [address] [id number] 2023 Medicaid [id number] 2019 Unknown [id number] 2018 Medicaid [id number] 2018 Unknown [id number] 2018 Unknown [id number] 2015 Unknown [id number] 2014 Unknown [id number] 2014 Unknown [employer]IC [employer] [id number] 2014-Present Indemnity [id number] [id number] 1997 Unknown [id number] 2.16.840.1.937336.3.579.2.903 1997 Unknown [id number] 2.16.840.1.497321.3.579.2.900 1997 Unknown [id number] 2.16.840.1.327385.3.579.2.176 1997 Unknown [id number] 2.16.840.1.606070.3.579.2.903 1997 Unknown [id number] 2.16.840.1.003658.3.579.2.903 1997 Unknown [id number] 2.16.840.1.099739.3.579.2.175 1997 Unknown [id number] 2.16.840.1.126933.3.579.2.593 1997 Unknown [id number] 2.16.840.1.626641.3.579.2.593 1997 Unknown [id number] 2.16.840.1.851722.3.579.2.593 1997 Unknown [id number] 2.16.840.1.930087.3.579.2.593 1997 Unknown [id number] 2.16.840.1.664025.3.579.2.593 1997 Unknown [id number] 2.16.840.1.543587.3.579.2.593 1997 Unknown [id number] 2.16.840.1.043827.3.579.2.593 1997 Unknown [id number] 2.16.840.1.283606.3.579.2.593 1997 Unknown [id number] 2.16.840.1.033513.3.579.2.593 1997 Unknown [id number] 2.16.840.1.302304.3.579.2.593 1997 Unknown [id number] 2.16.840.1.234173.3.579.2.593 1997 Unknown [id number] 2.16.840.1.693546.3.579.2.593 1997 Unknown [id number] 2.16.840.1.589045.3.579.2.593 1997 Unknown [id number] 2.16.840.1.179245.3.579.2.593 1997 Unknown [id number] 2.16.840.1.317454.3.579.2.593 1997 Unknown [id number] 2.16.840.1.372527.3.579.2.593 1997 Unknown [id number] 2.16.840.1.441069.3.579.2.593 1997 Unknown [id number] 2.16.840.1.657386.3.579.2.593 1997 Unknown [id number] 2.16.840.1.378511.3.579.2.593 1997 Unknown [id number] 2.16.840.1.343602.3.579.2.593 1997 Unknown [id number] 2.16.840.1.087646.3.579.2.593 1997 Unknown [id number] 2.16.840.1.626698.3.579.2.593 1997 Unknown [id number] 2.16.840.1.796765.3.579.2.593 1997 Unknown [id number] 2.16.840.1.644441.3.579.2.727 1997 Unknown [id number] 2.16.840.1.089493.3.579.2.1286 1997 Unknown [id number] 2.16.840.1.660265.3.579.2.1286 1997 Unknown [id number] 2.16.840.1.804919.3.579.2.1286 1997 Unknown [id number] 2.16.840.1.939937.3.579.2.1286 1997 Unknown [id number] 2.16.840.1.841528.3.579.2.174 1997 Unknown [id number] 2.16.840.1.220397.3.579.2.174 1997 Unknown [id number] 2.16.840.1.311599.3.579.2.174 1997 Unknown [id number] 2.16.840.1.219575.3.579.2.174 1997 Unknown [id number] 2.16.840.1.281261.3.579.2.174 1997 Unknown [id number] 2.16.840.1.260413.3.579.2.174 1997 Unknown [id number] 2.16.840.1.357180.3.579.2.903 1997 Unknown [id number] 2.16.840.1.786944.3.579.2.1259 1997 Unknown [id number] 2.16.840.1.343831.3.579.2.1259 1997 Unknown [id number] 2.16.840.1.765096.3.579.2.1259 1997 Unknown [id number] 2.16.840.1.341203.3.579.2.1259 1959 Self-pay [id number] 1959 Self-pay 1959 Unknown [id number] 1.2.840.598018.1.13.239.2.7.3.6 [id number] Social History Date Type Detail Facility Tobacco smoking status MDIS Unknown if ever smoked [facility] Start: 1997 Sex Assigned At Not on file [facility] Start: 04-06-2019 End: 07-29-2023 Tobacco smoking status NHIS Current every day smoker [facility] [place] History of tobacco use Cigarette Smoker [facility] [employer] [place] Start: 04-06-2019 End: 07-29-2023 Cigarettes smoked current (pack per day) - Reported [facility] [place] Start: 04-06-2019 End: 07-29-2023 Alcohol intake Ex-drinker (finding) [facility] Start: 04-06-2019 End: 12-19-2022 History SDOH Alcohol Frequency 1 [facility] [place] Exposure to SARS-CoV-2 (event) Unable to assess [facility] [place] Start: 11-01-2019 End: 07-29-2023 Tobacco use and exposure Never used [facility] [facility] [place] [place] Exposure to SARS-CoV-2 (event) Yes [facility] [place] Start: 01-04-2020 End: 06-16-2022 Alcohol intake Current drinker of alcohol (finding) [facility] Start: 12-05-2018 Alcohol Comment occassional [facility] Start: 11-19-2021 End: 06-16-2022 Exposure to SARS-CoV-2 (event) Not sure [facility] Start: 11-29-2021 Tobacco Comment 5cigs/day 2 [employer] Work Phone: Start: 06-16-2022 Tobacco smoking status NHIS Ex-smoker [employer] History of tobacco use Current smoker [employer] Work Phone: Start: 06-16-2022 Alcohol Comment occ. Some renaldo [facility] [employer] Work Phone: Start: 08-08-2020 Tobacco smoking status Heavy tobacco smoker (finding) [facility] Start: 07-29-2023 Sex Assigned At Female F [facility] Tobacco smoking status NHIS Tobacco smoking consumption unknown [facility] Start: 04-19-2023 [facility] Within the past 12 months we worried whether our food would run out before we got money to buy more. Never True [facility] Start: 07-29-2023 Tobacco Comment Uses [email or web address] c devices. [facility] NEGATED: Highlighted rowStart: NINF History of tobacco use Passive smoker [facility] Functional Status Date Assessment Result Facility 12-06-2022 Functional Status N/A [facility] Clinical Notes 12-10-2020 to 07-29-2023 Dawit Carter CMA - 07/29/2023 2:30 PM EDCarlos Enrique Mcdonough MD - 07/29/2023 2:30 PM EDEvan Carter CMA - 07/29/2023 2:30 PM EDTTelephone Encounter - Thuy Salgado LPN - 07/24/2023 2:07 PM EDT Note Date & Type Note Facility 07-29-2023 History of Presen t illness Narrative Headache/epigastric pain/blurry vision/swelling? Headaches Cramping/contractions? No Abnormal vaginal discharge? No Spotting/vaginal bleeding? No Loss of fluid like your water may have broken? No Cats in the home? yes Do you change the litter box? No Flu vaccine? No Genetic testing done this here or other office? yes, low risk, females Have you been seen here at [facility] in a previous ?no Recent ER visits or hospitalizations? No Bring blood sugar log or meter with you today? (Please bring them with you for every visit at [facility]) n/a Traveled outside the country in the past 6 month no Any concerns that you would like me to mention to the provider today? No ENCOUNTER RECOMMENDATIONS ARE IN BOLD AT THE BOTTOM OF THIS VISIT NOTE. Dear Dr. Asher: Thank you for sending this patient secondary to type 2 Diabetes in and spontaneous twin . Please also see any US note and (if concomitant visit) Genetic counselor note. Total time by Dr. Mcdonough is in addition to time needed to perform and interpret any ultrasound. Overall care, Zika virus screening, Covid-19 vaccination counseling,influenza vaccination counseling and unrelated Genetic screening (cystic fibrosis, muscular dystrophy, thalassemia, sickle cell trait, etc.) is as per the excellent care of the patient's provider team. Please note that ultrasound is not diagnostic for aneuploidy, will not detect all structural abnormalities, and is not diagnostic for Genetic diseases, even if multiple exams are performed during a given . Report prepared via voice recognition software. Although report is reviewed for accuracy prior to finalization, unrecognized typographical errors may be present. Please contact us with any questions regarding report. Total time of visit today was 45 minutes. 24 minutes were direct [id number] for counseling and coordination of care during visits itself. An additional 8 minutes or for same day preparation to see the patient. Another 13 minutes were needed to prepare visit report or otherwise complete encounter Thank you for sending this patient. Dana Mcdonough MD Maternal Medicine Professor, [facility] [phone]- Office [phone]- Personal Cell Phone Office Note: Type 2 diabetes in Dichorionic diamniotic twin gestation History of bipolar disorder History of posttraumatic stress disorder Tobacco use in Obesity in Medication exposure in Current Outpatient Medications on File Prior to Visit Medication Sig buPROPion (WELLBUTRIN) 75 mg tablet TAKE 1 TABLET BY MOUTH DAILY for 14 days, then TAKE 1 TABLET BY MOUTH EVERY OTHER DAY for 7 (SEVEN) doses then stop DEXCOM G7 SENSOR device reapply every TEN days to check blood glucose diphenhydrAMINE (BENADRYL) 25 mg capsule Take 1 capsule (25 mg total) by mouth every 6 (six) hours as needed for itching. LANTUS SOLOSTAR U-100 INSULIN 100 unit/mL (3 mL) insulin pen Inject 10 Units into the skin nightly metFORMIN (FORTAMET) 500 MG (OSM) 24 hr tablet Take 1 tablet (500 mg total) by mouth daily with breakfast. metroNIDAZOLE (FLAGYL) 500 mg tablet [id number] acid ( 19) 29 mg iron- 1 mg tablet,chewable Chew 1 tablet and swallow in the morning. sertraline (ZOLOFT) 25 mg tablet Take 1 tablet (25 mg total) by mouth in the morning. clonazePAM (KlonoPIN) 1 mg tablet Take 1 tablet by mouth 2 times daily as needed for Anxiety for up to 30 days. Max Daily Amount 2 mg (Patient not taking: Reported on 07/29/2023) No current facility-administered medications on file prior to visit. Vitals: 07/29/23 1308 BP: 105/64 Pulse: 88 This patient is a 27-year-old 3 para 1011 currently at 16 weeks and 3 days gestation. She came to our office today for imaging and consultation. She has type 2 diabetes (listed some places in the chart as type 1 the patient noted a recent diagnosis and prior diagnosis of gestational diabetes in prior ). The patient's also is a diagnosed dichorionic twin gestation. Gestation with spontaneous. Patient has history of other comorbidities. In the chart in indicates the patient has a history of posttraumatic stress disorder and bipolar disorder. She also has a history of tobacco use. She uses electronic cigarettes. The patient uses metformin for diabetes and also has once per day long-acting insulin. The patient declines Diabetes Care consultation in our office by Maternal- Medicine. She indicated that her primary care provider is comfortable with managing her diabetes during . The patient denies prior history of preeclampsia. Earlier in this , she underwent cell free DNA screening with reportedly screen negative results. The patient is unaware of maternal genetic carrier testing decisions or results. She has a history of use of several behavioral medications. She discontinued several of these medications. At 1 point prior to the patient used an EUGENIA inhibitor but discontinued. She denies treatment of hypertension. The patient has a history of use of clonidine in order to attenuate posttraumatic stress disorder symptoms. At ultrasound today, dichorionic diamniotic twin gestation observed. Imaging within early limitations unremarkable. Please see report. We took the opportunity to review chromosomal abnormality screening and/or diagnostic testing. Ultrasound is not diagnostic chromosomal abnormalities, will not detect all structural abnormalities and is not diagnostic for genetic disorders even if multiple exams performed in a given . Down syndrome screening can be accomplished by first-trimester screening, cell free DNA testing, and 4 marker screen testing. Unrelated to chromosomal abnormality risk assessment, MSAFP can be offered by provider team as a screen for open neural tube defect. Screening is not diagnostic. Diagnostic amniocentesis would be an example of a diagnostic test. Chorionic villus sampling would be an example prior to a 14 weeks gestation. If amniocentesis performed or CVS were performed, micro array is offered. Small risk of loss from either procedure reviewed. Compared performance of applicable screening tests and or went over results of testing already performed. Genetic carrier testing may be performed. Limited or expanded testing is available. All testing will not identify all cases of genetic diseases because all genetic disorders do not have effective assessment, carrier testing would be necessary to determine if the would have an increased risk for disorders such as cystic fibrosis muscular dystrophy in testing had not been performed. Hemoglobinopathy can be screened for with assessment of MCV and hemoglobin electrophoresis. Alpha-thalassemia risk assessment would require genetic carrier testing. Diabetes in discussed. Many patients with diabetes in have successful outcomes. Pre-existing diabetes increases the likelihood of several complications. These complications include indicated , anomalies, growth restriction, macrosomia, and stillbirth. Good glycemic control is the cornerstone of therapy. Fasting blood glucose should be less than 95 mg%. If pre meal glucose values are used or observed via continuous glucose monitor, optimal control is that pre meal glucose value should be in a similar range. 1 hour postprandial glucose values of less than 140 mg% recommended. Insulin is adjusted accordingly. Insulin resistance increases later in . Fasting hypoglycemia and propensity for starvation ketosis occurs during . patients with type 1 and type 2 diabetes may develop diabetic ketoacidosis typically at lower blood glucose values. Patients with pre-existing diabetes in are candidates for surveillance (twice per week beginning at 32 weeks gestation unless specifically needed beforehand). Serial assessment of growth recommended in the 2nd half of . Patients with good control should be delivered at 39 weeks and 0 days through 39 weeks and 6 days gestation (typically earlier within this window). Patients with suboptimal control may need to be delivered earlier. Earlier delivery carries specific risk of late or early term immaturity, which may be worsened in infants a moms with diabetes. , so decision to deliver early needs to be taken in context of attempts to correct or control diabetes. Insulin therapy is typically recommended. Some patients with type 2 diabetes may be placed on or already use metformin. Sometimes metformin is used to decrease insulin resistance. Metformin is a 2nd line therapy for the treatment of gestational diabetes. Insulin management is standard therapy. We recommend that patient supplied glucose logs or downloads are reviewed each week. Association with early hyperglycemia and congenital malformations discussed. Hemoglobin A1c of greater than 8% early in may be associated with an increased risk. However increase in risk is probably progressive. Patients with pre-existing diabetes in are candidates for mid screening echocardiogram. Patients with confounded diagnoses (early diagnosis of gestational diabetes, history of diabetes or impaired glucose tolerance without treatment, etc.) may benefit from hemoglobin A1c. Hemoglobin A1c early in in a patient not undergoing treatment, may be indicative of pre-existing diabetes. In reality, many of these patients need to be evaluated at least 4-6 weeks unless diagnosis previously affirmed prior to . Patients with ongoing diagnoses of pre diabetes may be candidates for maternal cardiovascular screening and I exam. Baseline preeclampsia related labs including urine protein creatinine ratio recommended. Unless a contraindication is present, these patients are candidates for low-dose 81 mg per day aspirin preeclampsia prevention therapy. Intrapartum, patients with type 1 or type 2 diabetes typically are managed with periodic assessment of glucose values. Diabetes in order set should be used. Patient's receiving insulin therapy, should typically use 1/2 of normal evening dose of long-acting insulin prior to next day planned delivery or . , patient should be transition to either prior to insulin dosing or 1/3 of last used dosing. Glycemic control recommendations in the 4-6 week time frame are less stringent and focus primarily on avoidance of hypoglycemia or impairment of wound healing. Upper limit of glycemic control range of 180-200 mg% is allowable within this time frame. Patient's should transition to primary care or diabetes outside of specialty care . Discussed diabetes with the patient and answered all questions. Recommendations are as outlined below in conclusion section. Twin gestation reviewed. Twin gestation diagnosis also increases risk for development of preeclampsia and may aggravate glucose intolerance. Serial assessment of growth during in the 2nd half of recommended. Because of the diabetes as well as twin gestation, this patient would be a candidate for twice per week surveillance beginning at 32 weeks gestation. Would recommend earlier surveillance if glycemic control inadequate. Recommend delivery at 38 weeks gestation as best balance of risk to benefit. If this patient has additional comorbidities, she would be a candidate for earlier delivery in some circumstances. We reviewed preeclampsia risk. I discussed U.[place]. preventative task Force recommendation for low-dose aspirin preeclampsia prevention and I provided the patient a prescription for her to use 81 mg of aspirin per day as recommended by the [place]. preventative task force. We reviewed medication use in . Approximately 3-5% of pregnancies resulted offspring with anatomical variation and or congenital malformation. Detection rate is variable depending upon the expertise of the evaluating provider. Some variations or malformations not associated with significant lifetime risk while others are. In order to tell if a medication were to increase the likelihood of congenital malformation (and in order to tell whether a specific exposure is associated with a specific abnormality) is problematic secondary to challenges imposed by on the performance of randomized control trials. Very few medications are specifically FDA approved for use in . In fact, classification for medication use in has been changed because of this limitation. Information is supplied rather than specific classification. Sometimes, safety or lack thereof can be implied based upon historical use. Medications that are new often do not have retrospective available data for determination of safety. Retrospective cohort and database reviews often are used to determine risk. Retrospective data sets may not demonstrate individual data granularity to the degree that would eliminate or explain confounding exposures. Medication exposure also may be gestational age specific. Many medications only or associated with a potential risk during a specific gestational age range (often in the 2nd half of the 1st trimester ). Some medications or exposures may be associated with adverse effects which may not be congenital malformations as such from exposure during . Medications should be given in a balance of risk to benefit. We discussed general risks with use of clonazepam. We also discussed uterine irritability in context of clonazepam and sertraline. Sertraline is the generally recommended medication to use for treatment of depression in if medication required. We reviewed medication use in context of depression and anxiety treatment during . Patients with mild depression or anxiety during generally should be managed by behavioral interventions and or mindfulness. Patients with moderate to severe disease not responsive to behavioral interventions become candidates for treatment. ACOG and the [place] psychiatric association advocate treatment in patients with moderate to severe unresponsive disease. SSRI medications are typically used (except for paroxetine). We reviewed specific medication or medications the patient used. For SSRI medications, we discussed preponderance of data presuming safety. We also discussed some data supporting an increased risk of structural abnormalities. Paroxetine is not recommended. irritability observed in some pregnancies in which SSRI medications were used. However, data confounded by concomitant tobacco use during . Additionally, risk of depression is significantly increased in patients with pre-existing depression or anxiety. So weaning of medication late in usually not recommended. We discussed patient's medications in context of [employer] information. Decision regarding medication should be taken in a balance of risk to benefit in order to effectively treat the disorder that the patient has effectively. Discussed tobacco use in . Cigarette smoking or use of nicotine products other than cigarettes during associated with adverse events. The risk of is increased. The risk of stillbirth could be increased, particularly of other comorbidities are present. Tobacco use in increases the likelihood of a growth disorder. Smoking cessation recommended. Both the [place] and the [facility] have excellent free stop smoking programs that are accessible through [facility] web sites. If desired by patient, we will supply written information from these sites as applicable. Recommend primary OB care team counseled patient is on an ongoing basis. Marijuana and cannabinoid products not recommended in . . Comments, Conclusions: Imaging today without demonstration of structural abnormalities but suboptimal. Because of the early hemoglobin A1c and congenital anomaly risk, we recommend that we perform mid targeted extensive ultrasound in our office in conjunction with echocardiogram. Thereafter, we recommend serial assessment of growth monthly in primary OB provider office. This patient is a candidate for late surveillance beginning at 32 weeks gestation (earlier with poor control or other comorbidities). The patient told us that we are not to be involved in diabetes management. We will copy are note to primary OB provider that reportedly is managing the patient's diabetes. We recommend frequent follow-up in use of medications accordingly. General recommendations are as outlined above in text. Recommendations (Plan): Per patient choice, diabetes management by different providers. We will copy are note to the providers. Please let us know if we need to be involved in care. We would need to see the patient in the patient would need to undergo Diabetes Education in our office. Scheduled ultrasound only encounter in our office mid for echocardiogram and attempted completion of anatomical assessment. Once imaging completed in our office, recommend serial assessment of growth in primary OB provider office. Please let us know if we need to perform subsequent imaging. This patient is a candidate for twice per week surveillance beginning at 32 weeks gestation (earlier initiation with other comorbidities). We assume medication choices in management as per primary OB provider and the care providers managing the patient's behavioral diagnoses. The patient was satisfied regarding chromosomal screening results. Subsequent decisions regarding genetic carrier testing and or other diagnostic testing as per patient and primary OB provider team. We initiated a prescription for low-dose 81 mg per day aspirin preeclampsia prevention therapy. Unless other comorbidities ensue, recommend delivery at 38 weeks gestation in best balance of risk to benefit. Recommend smoking cessation and counseling accordingly. Thank you for letting us see this patient today. This patient has imaging follow-up scheduled in our office. If additional physician follow-up and or diabetes team follow-up requested, please contact our office and schedule accordingly. At this point, complete and overall care as per excellent care primary OB provider team. Diabetes care and co management according to the patient's reported primary care provider. Traffic Observer gave T1dm & T2dm dm handout, twin hand out and, genetic handout, and, activity in handout to patient. Patient understood that its good reading material if she has questions. documented in this encounter [facility] 07-24-2023 Miscellaneous Notes Called to schedule Diabetic Ed, patient declined to schedule.she states is seeing another Dr for this and that Dr Asher is aware. documented in this encounter [facility] 07-24-2023 Telephone encounter Note Called to schedule Diabetic Ed, patient declined to schedule.she states is seeing another Dr for this and that Dr Asher is aware. [facility] 07-15-2023 Miscellaneous Notes Summary: MFM Missed Diabetes Education Appointment Called. No answer. Message left regarding missing Diabetes Education appointment; noted was also scheduled to see Gaby CROUCH and Carmen Cheung (Nutrition Education). Requested to call [phone] Option #3 to reschedule. documented in this encounter [facility] 07-15-2023 Telephone encounter Note Summary: MFM Missed Diabetes Education Appointment Called. No answer. Message left regarding missing Diabetes Education appointment; noted was also scheduled to see Gaby CROUCH and Carmen Cheung (Nutrition Education). Requested to call [phone] Option #3 to reschedule. [facility] 12-06-2022 Hospital Discharg e instructions Patient Education [...] services (911 in the [place] Call the [facility] health and human services helpline (211 in the [place] Call or text a suicide hotline to speak with a trained counselor. The following suicide hotlines are available in the [place]: ?6-354-290-TALK ( or 417 in the [place] ?6-957-QRHXMXN ( ). ?Text 352994. This is the Crisis Text Line in the [place] ? . This is a hotline for [place] speakers. ? . This is a hotline for TTY users. ?5-887-2-U-YASHIRA ( ). This is a hotline for lesbian, delgadillo, bisexual, transgender, or questioning youth. ?For a list of hotlines in [place], visit suicide.org/hotlines/internation al/mcglab-ytrfduy-dtvvqzbz.html Contact a crisis center or a local [...] to anyone or being with other people. ?Ustb-vf-imlh conversation is best to help them understand [...] physical and a mental health checkup. Take gklk-mtf-wftfbcx and prescription medicines only as told by [...] National Suicide Prevention Lifeline: www.suicidepreventionlifeline.or g Hopeline: www.hopeline.Musiwave [place] Foundation for Suicide Prevention: www.afsp.org The Yashira Project (for lesbian, delgadillo, bisexual, transgender, or questioning youth): www.thetrevorproject.org National [place] of Mental Health: www.nimh.nih.gov/health/topics/s uicide-prevention Suicide Prevention Resources: afsp.org/fvrtoav-bqsjbwldcy-ioni urmartina Contact a health care provider if: You [...] provider. Document Revised: 11/15/2021 Document Reviewed: 08/30/2021 [employer] Patient Education 2022 [employer] Follow Up Care 12/06/2022 13:21:39 With:[facility] Address:Unknown When:12/09/2022 16:28:40 Comments:Follow safety plan. Return to the emergency department with any worsening symptoms. With:GAYE JOSUE Address: [address] [id number] [facility] (1) When:12/09/2022 16:28:22 Comments:Call the office of [...] Repeat liver function testing in 1 month. [facility] 12-06-2022 Evaluation + Plan note Extrac rayray from: Title:ED Note Author:Дмитрий RICHMOND Graham CarrascoAlessia Date: Situational stress (F43.9: R eaction to severe stress, unspecified) Orders: Automated Diff CBC w/ Auto Diff Comprehensive Metabolic Panel Drug Screen Urine ECG 12 Lead Adult eGFR Ethanol Level U Beta Hcg Qual [facility]07-28-2022 History of Present illness Narrative* Edelmira Jacobs RN - 11/29/2021 2:40 PM EDT Home med list reviewed with patient. documented in this encounterB[facility]NER [facility] Phone: 1(200) 801-354008-08-2021 History of Present illness Narrative* Perla Cunningham RN - 12/10/2020 8:28 PM EDT Discharge instructions given. Pt sent home with 1 zofran. Aware to hop picker prescription. All questions answered. [facility] Phone: evaluation note* Diagnosis Symptoms of dehydration- Primary Nausea vomiting and diarrhea Nausea with vomiting documented in this encounter [employer] Phone: [email or web address] note* Diagnosis Threatened miscarriage in early - Primary Threatened , unspecified as to episode of care documented in this encounter [employer] Phone: [email or web address] note* Diagnosis Depression during in first trimester- Primary Dehydration documented in this encounter [employer] Phone: evalntwanm note* Diagnosis COVID-19 virus infection- Primary Second trimester documented in this encounter [employer] Phone: evalrghyrr note* Diagnosis Hordeolum externum of right lower eyelid- Primary Hordeolum externum documented in this encounter [facility] [employer] Phone: [email or web address] note* Diagnosis Acute midline low back pain without sciatica- Primary [facility]* Diagnosis Nausea and vomiting, unspecified vomiting type- Primary Intractable headache, unspecified chronicity pattern, unspecified headache type [facility]* Diagnosis Acute cystitis without hematuria- Primary Acute cystitis Vaginal yeast infection Candidiasis of vulva and vagina [facility] Diagnosis Type 2 diabetes mellitus affecting in second trimester, antepartum- Primary Twin , dichorionic/diamniotic, second trimester Bipolar disease during in second trimester ([facility]) [facility] Diagnosis Type 2 diabetes mellitus affecting in second trimester, antepartum- Primary Twin , dichorionic/diamniotic, second trimester Obesity affecting in second trimester, unspecified obesity type Bipolar disease during in second trimester ([facility]) Post traumatic stress disorder Posttraumatic stress disorder Tobacco smoking affecting in second trimester [facility] Narrative No data available for this section [facility] Attachments The following attachments cannot be sent through Care Everywhere. * Nausea and Vomiting ([place]) * Diarrhea ([place]) * Oral Rehydration ([place]) documented in this [facility] [employer] Phone: Hospital Discharge instructions* Attachments The following attachments cannot be sent through Care Everywhere. * Miscarriage: Threatened ([place]) [facility] Phone: [facility] Discharge [facility]* Attachments The following attachments cannot be sent through Care Everywhere. * Dehydration ([place]) [facility] Phone: Hospital Discharge instructions* Attachments The following attachments cannot be sent through Care Everywhere. * Coronavirus Disease (COVID-19): General Info ([place]) [facility] Phone: Hospital Discharge instructions* Attachments The following attachments cannot be sent through Care Everywhere. * Styes and Chalazia ([place]) [facility] Phone: Hospital Discharge instructions* Attachments The following attachments cannot be sent through Care Everywhere. * Back Pain ([place]) * Back: Stretches: Exercises ([place]) [facility]: Hospital Discharge instructions* Attachments The following attachments cannot be sent through Care Everywhere. * Headache ([place]) [facility] Phone: Hospital Discharge instructions* Attachments The following attachments cannot be sent through Care Everywhere. * Vaginal Yeast Infection ([place]) [facility] [employer] HEALTHInstructionsNot on file documented in this [facility]Pro[facility] Rubysophic SystemInstructionsNot on file documented in this encounterSt [facility]bury HospitalPoderopedia SystemInstructionsNot on file documented in this [facility]ProV[facility] Rubysophic SystemInstructionsNot on file documented in this encounterProV[facility] Rubysophic SystemProgress note No data available for this section [facility] Summary Purpose Family History No Family History [...] FoundDocuments on File Type Date Recorded Patient Project Financial Analyst Expl anation Advance Directives and Living Will Power of [place] Steward Documents on File Type Date Recorded Patient Project Financial Analyst Expl anation ACP-Advance Directive ACP-Power of [place] Steward Documents on File Type Date Recorded Patient Project Financial Analyst Expl anation Advance Directives and Livin g [...] be sent through Care Everywhere. * Sinusitis ([place]) * Sinus Rinse ([place]) * Bronchitis ([place]) documented in this encounter* Attachments The following attachments cannot be sent through Care Everywhere. * Smoking: Stopping ([place]) * Bronchitis ([place]) * Coronavirus Disease (COVID-19): General Info ([place]) documented in this encounter* Attachments The following attachments cannot be sent through Care Everywhere. * Bronchitis ([place]) documented in this encounter Assessments Diagnosis Bronchitis- [...] Juanito Hernandez MD documented in this encounter Reason for Referral Specialty Diagnoses / Procedures Referred By Armando vigil Referred To Contact Maternal and Medicine Diagnoses Twin , dichorionic/diamniotic, second trimester Bipolar disease during in second trimester ([facility] Procedures US MFM with or without consult Dana Mcdonough MD [address] [place] [address] [facility] Maternal Med [address] [place] [address] Referral ID Status Reason Start Date Expiration Date V isits Requested Visits Authorized [id number] Pending Review 07/29/2023 07/28/2024 1 1 Additional Source Comments INFORMATION SOURCE (unrecogn ized section and content) DATE CREATED AUTHOR 10/29/2017 [facility] Joseph gagnon DATE CREATED AUTHOR AUTHOR'S ORGANIZ ATION 11/26/2017 [facility] DATE CREATED AUTHOR AUTHOR'S ORGANIZ ATION 01/04/2020 [facility] DATE CREATED AUTHOR AUTHOR'S ORGANIZ ATION 05/26/2020 [facility] DATE CREATED AUTHOR AUTHOR'S ORGANIZ ATION 08/07/2020 [facility] DATE CREATED AUTHOR AUTHOR'S ORGANIZ ATION 04/08/2021 [facility] DATE CREATED AUTHOR AUTHOR'S ORGANIZ ATION 07/14/2021 [facility] DATE CREATED AUTHOR AUTHOR'S ORGANIZ ATION 04/27/2022 [facility] DATE CREATED AUTHOR AUTHOR'S ORGANIZ ATION 12/07/2022 [facility] DATE CREATED AUTHOR AUTHOR'S ORGANIZ ATION 08/31/2023 [facility] DATE CREATED AUTHOR AUTHOR'S ORGANIZ ATION 10/10/2023 [facility] DATE CREATED AUTHOR AUTHOR'S ORGANIZ ATION 10/19/2023 [facility] DATE CREATED AUTHOR AUTHOR'S ORGANIZ ATION 10/20/2023 [facility] EPIC DATE CREATED AUTHOR AUTHOR'S ORGANIZ ATION 10/29/2023 [facility] Reason for Visit (unrecogniz ed section and [...] night. Under her ribs on the right Reason Comments T1DM DI DI TWINS Assessment & Plan Note - Juanito Hernandez [...] Ricci Clancy RN)2020 (Stopped - Provider: Perla Cunningham, MIRACLE) ondansetron (ZOFRAN) injection 4 mg (COMPLETED) 4 mg, Intravenous, ONCE, On 12/10/20 at 191, For 1 dose 1915 (Given - Provid [...] Veronica 04/12/21 at 1830, For 1 dose 1825 (New Bag - Prov ider: Albina Garibay RN)1925 (Stopped - Provider: Rosy Stack RN) Scheduled [...] 0200, For 1 dose, For IV Hydration 022 (New Bag - Prov ider: Deloris Pinto [...] Care Teams (unrecognized sec tion and content) Forest Aide Relationship Specialty Start Date End Date Gaye Josue APRN - [facility] [address] [place] [address] PCP - General Family Nurse Practitioner 02/10/21 Forest Aide Relationship Specialty Start Date End Date Gaye Josue APRN - [facility] [employer] [address] [place] [address] PCP - General Family Nurse Practitioner 02/10/21 Forest Aide Relationship Specialty Start Date End Date Gaye Josue APRN - [facility] [employer] [address] [place] [address] PCP - General Family Nurse Practitioner 02/10/21 Forest Aide Relationship Specialty Start Date End Date Gaye Josue APRN - [facility] [employer] [address] [place] [address] PCP - General Family Nurse Practitioner 02/10/21 Forest Aide Relationship Specialty Start Date End Date Jacobo Johnson DO [address] [place] [address] PCP - General Family Medicine 07/29/23 Forest Aide Relationship Specialty Start Date End Date Jacobo Johnson DO [address] [place] [address] PCP - General Family Medicine 07/29/23 FOR RECORDS PERTAINING TO PATIENTS WHO ARE [...] BE BASED ON THE PRIMARY CLINICAL RECORDS. [facility] [employer] [facility]. provides no warranty or guarantee of the accuracy or completeness of information in this document.
[2023-10-31 17:48] VITALS: BP 118/61; PULSE 96
--- NOTE | 2023-10-31 18:57 | P.OBLDTN_ITS ---
OB - Triage/Final Diagnosis Visit Information Date of evaluation: 10/31/23 Reason for evaluation: other (Twins gestation, Type 2 DM, Baby A - IUGR, placental infarcts) Comments/Additional reasons for admission: Patient states she was evaluated in the [facility] office at [facility] and due to the US findings with Baby A 10% with placental infarcts (Patient's My chart reviewed on her phone). Patient was advised to go to [facility] from the [facility] office but she left instead and went home and then [place] [facility]. 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 (2) IUGR, : Status: Acute Problem details: IUGR of Twin A with placental infarct, discharged and to return to [facility]. Patient was counseled with her Aunt present. Risks/benefits. redefined placental infarcts detailed. All questions answered. She is going back to [facility] - her Aunt is driving. All questions answered. [facility] nurse informed by phone
--- NOTE | 2023-10-31 19:18 | P.DS_ITS ---
DS: Providers Provider Date of admission: 29wk 5 day Twin Gestation, type 2 DM on Insulin One Twin IUGR 10% with placental infarcts noted by MFM at [facility] Patient advised to go to [facility] but she left instead and presented to [place] Primary care physician: KATY CALLEJAS DO Admitting clinician: Alexandra Rodriguez Attending physician on admission: Loy Asher Attending physician on discharge: emmanuelle Discharging clinician: Alexandra Rodriguez Anticipated date of discharge: 10/31/23 DS: Diagnosis Discharge Diagnosis (1) , twins, antepartum: Assessment and plan: to [facility] by car (2) IUGR, : Assessment and plan: To [facility] by car Plan To [facility] by car [facility] informed by phone - I spoke with a nurse OB - DS: Summary Hospital Course Hospital Course: NST of twin gestation at 29wk 5 days Time spent discussing smoking cessation with patient: 3 to 10 minutes Complications complications: none Status at Discharge Functional status at discharge: independent ambulation Time Spent with Patient Time attestation: Total time spent providing and/or coordinating discharge services: Time spent: less than 30 minutes Exam Constitutional Vital Signs, click to edit/add: Last Vital Signs Pulse 96 H 10/31/23 17:48 BP 118/61 10/31/23 17:48 Discharge Plan Discharge Disposition: Home, Self-Care Follow Up Appointments: to [facility] now Plan of Treatment: To be evaluated at [facility] Print Language: Syriac Referrals: Alexandra Rodriguez [Physician] - (to follow up Dr Asher, not me)
== END 2023-10-31 19:15 | disposition home or self-care (01) ==
LOC: FBCO 17:33 → FBC 17:37
PROVIDERS: PCP Family Medicine; Visit Provider Obstetrics & Gynecology Gynecology
DX: O24.414 Gestational diabetes mellitus in pregnancy, insulin controlled (principal); O36.5930 Maternal care for other known or suspected poor fetal growth, third trimester, not applicable or unspecified; O30.003 Twin pregnancy, unspecified number of placenta and unspecified number of amniotic sacs, third trimester; Z3A.29 29 weeks gestation of pregnancy
CPT/HCPCS: 59025

== ENCOUNTER 2023-11-07 07:13 | Outpatient (OUT) | payer OTHER, SELFPAY ==
--- OUTSIDE RECORDS SUMMARY | 2023-11-07 07:18 | XMS_ITS ---
Patient Summarization (C-CDA 2.1 CCD) Created on: November 07, 2023 RIRI DEMPSEY : 1995 Sex: Female Author Organization Sample organization Care Team Providers Care Incident Manager Name Role Phone GAYE JOSUE Unavailable Unavailable GAYE JOSUE Unavailable Unavailable Unavailable Unavailable Unavailable Honey, Aicha Maryjo Unavailable Unavailable Honey, Collins [place]ony Maryjo Unavailable Unavailable Unavailable Primary Care Provider UnavailJuanito Rodriges Primary Care Provider [phone] JUANITO HERNANDEZ Attending U navailable CELENGERI, JAMESJETH RATHNARAJAIAH Primary Care U navailable Celengeri, Vijeth Rathnarajaiah Primary Care Prov ider Radha Carney Unavailable Perla Rm Primary Care Provider HUY, JAMESJETH RATHNARAJAIAH Primary Care U navailable MANSI DE JESUSI LEIGH Referring Unavailable MANSI DE JESUSI LEIGH Admitting Unavailable SRINGERI, VIJETH RATHNARAJAIAH Primary Care U navailable OLIVER DE JESUS Admitting Unavailable SRINGERI, VIJETH RATHNARAJAIAH Primary Care U navailable LIZA, OLIVER LEIGH Referring Unavailable SRINGERI, VIJETH RATHNARAJAIAH Primary Care U navailable BEA JACOBS Referring Unavailable PERLA RM Primary Care Unavailable ZEINAB MIRAMONTES Attending Unavailable ZEINAB MIRAMONTES Admitting Unavailable Unavailable Primary Care Provider Gaye Madden APRN, CNP Primary Care Provider GAYE JOSUE Primary Care Unavailable GAYE JOSUE Primary Care Unavailable PERNELL SCRUGGS Attending Unavailabl e PERNI, DAVID C Referring Unavailable GAYE JOSUE Primary Care Unavailable [facility] ACOUSTICAL CARPENTER - FIELD SUPPORT SPECIALIST, Gaye Primary Care Provider [facility] ACOUSTICAL CARPENTER - FIELD SUPPORT SPECIALIST, Gaye Primary Care Provider MISC, DR AKINS [...] AKINS Primary Care Unavailable YOGI, DR LOMELI Admdaysi Unavailable YOGI, DR LOMELI Attending Unavailable YOGI, [...] KARASIK, DR ACHARYA Admitting Unavailable KARASIK, DR CAHARYA Attending Unavailable MISC, DR AKINS Primary Care Unavailable YOGI, DR LOMELI Attending Unavailable WEST, DR ZAYRA Monique Consulting Unavailable MISC, DR AKINS Primary Care Unavailable YOGI, DR LOMELI Admitting Unavailable YOGI, DR LOMELI Consulting [facility], [facility] Primary Care Provider SHAMAR GAYE Primary Care Physician Graham Choe Attending Unavailable [facility] [place] [facility] Primary Care [facility]available [facility], [facility] Primary Care Provider Unavailable Primary Care Provider Jacobo Ahmadi DO J Primary Care Provider DELANY, GAYE Primary Care Unavailable MATTHEW TAFOYA Attending Unavailable DELANY, GAYE Primary Care Unavailable BEA JACOBS Attending Unavailable DELANY, GAYE Primary Care Unavailable BEA JACOBS Attending Unavailable BRITTA, JACOBO J Primary Care Unavailable HOANG SANTOS Attending Unavailable OLEJAMI, JACOBO J Referring Unavailable OLEWILER, JACOBO J Primary Care Unavailable DELANY, GAYE Referring Unavailable DELANY, GAYE Primary Care Unavailable DELANY, GAYE M Primary Care Unavailable MARY AGUIAR Attending U Redd Greonimo Attending Unavailab Redd Higginbotham Admitting Unavailab dedra [facility], PHYSICIAN Primary Care Unavailable YOGI, LOY R Referring Unavailable OLEWILER, JACOBO J Primary Care Unavailable DANA MCDONOUGH Attending Unavailable YOGILOY Referring Unavailable OLEWILER, JACOBO J Primary Care Unavailable ROSA ROCHA Attending Unavailable YOGI, LOY R Referring Unavailable OLEWILER, JACOBO J Primary Care Unavailable YOGI, LOY R Referring Unavailable OLEWILER, JACOBO J Primary Care Unavailable TRISH ZIMMERMAN Attending Unavailable TRISH ZIMMERMAN Attending Unavailable YOGI, LOY R Referring Unavailable OLEWILER, JACOBO J Primary Care Unavailable HERMAN URRUTIA Attending Unavailable OLEWILER, JACOBO J Referring Unavailable OLEWILER, JACOBO J Primary Care Unavailable ZAYRA KIMBLE Admitting Unavailable ZAYRA KIMBLE Attending Unavailable RUMALER, JACOBO J Primary Care Unavailable CHRISTELLE SEPULVEDA Unavailable HARMONY HESS Referring Unavailable OLEWILER, JACOBO J Primary Care Unavailable LOY ASHER Attending Unavailable LOY ASHER Attending Unavailable LOY ASHER Attending Unavailable LOY ASHER Attending Unavailable Allergies Allergy Classification Reported Allergen(s) Allergy Type Date of Onset Reaction(s) Facility (1 source) No Known Medication Allergies; Translations: [No Known Medication Allergies] Propensity to adverse reactions (disorder) [facility] Repository Encounters Encounter Date Encounter Type Care Provider Facility Start: 11-04-2023 End: 11-04-2023 ambulatory LOY YOGI Not Available Start: 11-02-2023 End: 11-02-2023 ambulatory HARMONY HESS [facility] Start: 10-31-2023 End: 11-03-2023 Evaluation and management of inpatient ZAYRA KIMBLE [facility] Start: 10-31-2023 End: 10-31-2023 ambulatory HERMAN URRUTIA [facility] Start: 10-31-2023 End: 10-31-2023 ambulatory TRISH Florencia ELSIE [facility] Start: 10-22-2023 ambulatory Redd Dueñas acility:[facility] Start: 10-20-2023 End: 10-20-2023 ambulatory LOY YOGI Not Available Start: 10-13-2023 End: 10-13-2023 Emergency department patient visit [facility] Start: 10-09-2023 End: 10-09-2023 Emergency department patient visit [facility] Start: 08-29-2023 End: 08-29-2023 ambulatory LOY Woodall [facility] Start: 08-18-2023 End: 08-18-2023 ambulatory [facility] Start: 07-29-2023 End: 07-29-2023 Office outpatient new 45 minutes Dana Mcdonough MD Work Phone: [facility] at [facility] Comment on above: Type 2 diabetes ashley itus affecting in second trimester, antepartum (Primary Dx); Twin , dichorionic/diamniotic, second trimester; Obesity affecting in second trimester, unspecified obesity type; Bipolar disease during in second trimester ([facility]); Post traumatic stress disorder; Tobacco smoking affecting in second trimester Start: 07-29-2023 End: 07-29-2023 Orders Only Dawit Carter [facility]- Medicine at [facility] Comment on above: Type 2 diabetes ashley itus affecting in second trimester, antepartum (Primary Dx); Twin , dichorionic/diamniotic, second trimester; Bipolar disease during in second trimester ([facility]) Start: 07-29-2023 End: 07-30-2023 ambulatory ROSA Danilo ROCHA [facility] Start: 07-24-2023 Telephone encounter Thuy CRESPO [facility] Start: 07-15-2023 Telephone encounter Rosa crane RN Work Phone: [facility] at [facility] Start: 07-09-2023 Orders Only Not In System Ref Prov [facility] Start: 06-30-2023 End: 06-30-2023 ambulatory LOY YOGI Not Available Start: 05-30-2023 End: 05-30-2023 ambulatory LOY YOGI Not Available Start: 05-15-2023 End: 05-15-2023 ambulatory LYO YOGI Not Available Start: 04-01-2023 End: 04-01-2023 Emergency department patient visit [facility] Start: 02-13-2023 End: 02-13-2023 ambulatory [facility] Start: 12-22-2022 End: 12-22-2022 Emergency department patient visit [facility] Start: 12-19-2022 End: 12-19-2022 Emergency department patient visit Matthew Tafoya MD Work Phone: [facility] Comment on above: Acute cystitis witho ut hematuria (Primary Dx); Vaginal yeast infection Start: 12-06-2022 End: 12-06-2022 Emergency department patient visit Graham Choe Facility[place] Start: 12-06-2022 End: 12-06-2022 Emergency department patient visit Graham Choe [facility] Start: 06-16-2022 End: 06-16-2022 Emergency department patient visit Hoang Santos MD Work Phone: [facility] Comment on above: Nausea and vomiting, unspecified vomiting type (Primary Dx); Intractable headache, unspecified chronicity pattern, unspecified headache type Start: 03-13-2022 End: 03-13-2022 Emergency department patient visit Bea Jacobs MD Work Phone: [facility] Comment on above: Acute midline low ba ck pain without sciatica (Primary Dx) Start: 11-29-2021 End: 11-29-2021 Emergency department patient visit Bea Jacobs MD Work Phone: [facility] Comment on above: Hordeolum externum o [...] :H1 Start: 05-31-2021 End: 06-01-2021 ambulatory DAVID Marj MUKHERJEEMARCK [facility] Start: 05-22-2021 End: 05-22-2021 Emergency department patient visit Hoang Santos MD Work Phone: [facility] Comment on above: COVID-19 virus infec tion (Primary Dx); Second trimester Start: 04-12-2021 End: 04-12-2021 Emergency department patient visit Dana Redman MD Work Phone: [facility] Comment on above: Depression during pr egnancy in first trimester (Primary Dx); Dehydration Start: 04-01-2021 End: 04-01-2021 Emergency department patient visit [facility] Start: 03-25-2021 End: 03-25-2021 Emergency department patient visit [facility] Start: 02-10-2021 End: 02-10-2021 Emergency department patient visit Braydon May MD Work Phone: [facility] Comment on above: Threatened miscarria ge in early (Primary Dx) Start: 12-10-2020 End: 12-10-2020 Emergency department patient visit Bea Jacobs MD Work Phone: [facility] Comment on above: Symptoms of dehydrat ion (Primary Dx); Nausea vomiting and diarrhea Start: 08-02-2020 End: 08-07-2020 Evaluation and management of inpatient BEA JACOBS [facility] Start: 08-01-2020 End: 08-02-2020 Emergency department patient visit Bea Jacobs Work Phone: [facility] Comment on above: Suicidal thoughts (P rimary Dx); Depression with suicidal ideation Start: 05-22-2020 End: 05-26-2020 Patient encounter procedure [facility] Start: 03-22-2020 End: 03-26-2020 Patient encounter procedure [facility] Start: 01-18-2020 End: 01-18-2020 Subsequent hospital visit by physician Perla [facility] Comment on above: Palpitations Start: 01-04-2020 End: 01-04-2020 Patient encounter procedure [facility] Start: 01-04-2020 End: 01-04-2020 Office outpatient visit 25 minutes [facility] Work Phone: [facility] Comment on above: Anxious depression ( Primary Dx); Smoker; Weight gain; Fatigue, unspecified type; Screening cholesterol level Start: 12-23-2019 End: 12-23-2019 Emergency department patient visit Hoang Santos Work Phone: [facility] Comment on above: Bronchitis (Primary Dx) Start: 11-22-2019 End: 11-22-2019 Patient encounter procedure OLIVER LYNN [facility] Start: 11-12-2019 End: 11-12-2019 Patient encounter procedure OLIVER LEIGH [facility] Start: 11-01-2019 End: 11-01-2019 Subsequent hospital visit by physician G[facility] Comment on above: Exposure to COVID-19 virus; Cough in adult patient Start: 10-22-2019 End: 10-22-2019 Emergency department patient visit Pat Strus Work Phone: [facility] Comment on above: Acute bronchitis, un specified organism (Primary Dx); Tobacco abuse; Encounter for laboratory testing for COVID-19 virus Start: 04-06-2019 End: 04-06-2019 Emergency department patient visit Bea Jacobs Work Phone: [facility] Comment on above: Bronchitis (Primary Dx); Acute sinusitis, recurrence not specified, unspecified location Start: 11-11-2017 End: 11-12-2017 Emergency department patient visit Aicha Méndez Facility:[place] Start: 11-11-2017 End: 11-11-2017 Ambulatory Aicha Méndez Work Phone: [facility] Start: 01-20-2017 Ambulatory GAYE [facility] Start: 01-16-2017 Ambulatory [facility] Immunizations Immunization Date Immunization Notes Care Provider Nupur west 03-02-2012 influenza virus vaccine, unspecified formulation Dawit Carter [facility] NEGATED: Highlighted row has not occurred!06-13-2020 influenza virus vaccine, unspecified formulation Graham Choe [facility] Medications Current Medications Medication Drug Class(es) Dates [...] days 10 tablet 0 10/22/2019 10/27/2019 Active [id number] acid ( 19) 29 mg iron- 1 mg tablet,chewable (2 sources) kr613-njtx-ycnxs acid ( 19) 29 mg iron- 1 [...] tablet by mark twice daily as needed for anxiety clonazePAM (KlonoPIN) 1 mg tablet Take 1 tablet by mouth 2 times daily as needed for Anxiety for up to 30 days. Max Daily Amount 2 mg 0 Active take 2 tablets by mo [facility] twice daily as needed clonazePAM (KLONOPIN) 1 [...] mark th every four hours as needed Ckisptrahubzmzf-QRQV-AN (DAYQUIL PO) Don e 1 tablet by [...] . 30 tablet 2 01/04/2020 04/03/2020 Active Payers Date Payer Category Payer Medicaid [facility] [employer] HMO [id number] 2023-Present [phone] [address] [place] [address] [id number] 2023 Medicaid [id number] 2019 Unknown [id number] 2018 Medicaid [id number] 2018 Unknown [id number] 2018 Unknown [id number] 2015 Unknown [id number] 2014 Unknown [id number] 2014 Unknown [employer]IC [employer]CIAL [id number] 2014-Present Indemnity [id number] [id number] 1997 Unknown [id number] 2.16.840.1.168335.3.579.2.903 1997 Unknown [id number] 2.16.840.1.680886.3.579.2.900 1997 Unknown [id number] 2.16.840.1.785358.3.579.2.176 1997 Unknown [id number] 2.16.840.1.786486.3.579.2.903 1997 Unknown [id number] 2.16.840.1.322182.3.579.2.903 1997 Unknown [id number] 2.16.840.1.009427.3.579.2.175 1997 Unknown [id number] 2.16.840.1.656009.3.579.2.593 1997 Unknown [id number] 2.16.840.1.014573.3.579.2.593 1997 Unknown [id number] 2.16.840.1.385608.3.579.2.593 1997 Unknown [id number] 2.16.840.1.624672.3.579.2.593 1997 Unknown [id number] 2.16.840.1.604201.3.579.2.593 1997 Unknown [id number] 2.16.840.1.952314.3.579.2.593 1997 Unknown [id number] 2.16.840.1.588347.3.579.2.593 1997 Unknown [id number] 2.16.840.1.142300.3.579.2.593 1997 Unknown [id number] 2.16.840.1.198972.3.579.2.593 1997 Unknown [id number] 2.16.840.1.970121.3.579.2.593 1997 Unknown [id number] 2.16.840.1.537599.3.579.2.593 1997 Unknown [id number] 2.16.840.1.922807.3.579.2.593 1997 Unknown [id number] 2.16.840.1.160690.3.579.2.593 1997 Unknown [id number] 2.16.840.1.723040.3.579.2.593 1997 Unknown [id number] 2.16.840.1.969796.3.579.2.593 1997 Unknown [id number] 2.16.840.1.091665.3.579.2.593 1997 Unknown [id number] 2.16.840.1.706482.3.579.2.593 1997 Unknown [id number] 2.16.840.1.849127.3.579.2.593 1997 Unknown [id number] 2.16.840.1.648824.3.579.2.593 1997 Unknown [id number] 2.16.840.1.661502.3.579.2.593 1997 Unknown [id number] 2.16.840.1.398722.3.579.2.593 1997 Unknown [id number] 2.16.840.1.649135.3.579.2.593 1997 Unknown [id number] 2.16.840.1.145796.3.579.2.593 1997 Unknown [id number] 2.16.840.1.208979.3.579.2.727 1997 Unknown [id number] 2.16.840.1.039182.3.579.2.174 1997 Unknown [id number] 2.16.840.1.715676.3.579.2.174 1997 Unknown [id number] 2.16.840.1.253050.3.579.2.174 1997 Unknown [id number] 2.16.840.1.916692.3.579.2.174 1997 Unknown [id number] 2.16.840.1.255703.3.579.2. 1997 Unknown [id number] 2.16.840.1.517211.3.579.2. 1997 Unknown [id number] 2.16.840.1.766010.3.579.2.903 1997 Unknown [id number] 2.16.840.1.517467.3.579.2.1285 1997 Unknown [id number] 2.16.840.1.518090.3.579.2.1285 1997 Unknown [id number] 2.16.840.1.778150.3.579.2.1285 1997 Unknown [id number] 2.16.840.1.651512.3.579.2.1285 1997 Unknown [id number] 2.16.840.1.991810.3.579.2.1285 1997 Unknown [id number] 2.16.840.1.586955.3.579.2.1285 1997 Unknown [id number] 2.16.840.1.818250.3.579.2.1285 1997 Unknown [id number] 2.16.840.1.984832.3.579.2.1285 1997 Unknown [id number] 2.16.840.1.287959.3.579.2.9 1997 Unknown [id number] 2.16.840.1.809491.3.579.2.1259 1997 Unknown [id number] 2.16.840.1.566591.3.579.2.1259 1997 Unknown [id number] 2.16.840.1.700416.3.579.2.1259 1997 Unknown [id number] 2.16.840.1.486001.3.579.2.1259 1959 Self-pay [id number] 1959 Self-pay 1959 Unknown [id number] 1.2.840.007944.1.13.239.2.7.3.6 32091.315 Plan of Treatment Date Care Activity Detail Author Start: 07-28-2024 Adult BMI Screening Adult BMI Screen ing [facility] Start: 07-28-2024 Tobacco Screening Tobacco Screening [facility] Start: 07-28-2024 End: 07-28-2024 US MFM with or without consult US MFM with or without consult Imaging Routine Twin , dichorionic/diamniotic, second trimester Bipolar disease during in second trimester ([facility]) Expected: 07/28/2024 (Approximate), Expires: 07/28/2024 [facility] Work Phone: Comment on above: Expected: 07/28/2024 (Approximate), Expires: 07/28/2024 Start: 08-29-2023 End: 08-29-2023 Patient encounter procedure 08/29/2023 1:00 PM EDT Appointment [facility] [address] [place] [phone] [facility] Start: 07-29-2023 End: 07-29-2023 Patient encounter procedure [facility] Start: 07-15-2023 End: 07-15-2023 Patient encounter procedure 07/15/2023 2:00 PM EDT Office Visit [facility] at [facility] [address] [place] [phone] Gaby Bustillos PA-C [address] [address] [facility] at [facility] Start: 07-15-2023 End: 07-15-2023 ambulatory 07/15/2023 1:00 PM EDT Support Visit [facility] at [facility] [address] [place] [phone] Rosa Rocha RN [address] [address] Carmen Cheung LD [facility] Start: 03-22-2023 Screening for malign ant neoplasm of cervix Pap smear [facility] Start: 01-03-2023 Influenza vaccination Influenza Vacc ine [facility] Start: 12-03-2022 Influenza vaccination Flu vaccine (# 1) [facility] Start: 03-29-2022 Screening for Chlamy deisy trachomatis [facility] Start: 01-03-2022 Influenza vaccination Flu vaccine (# 1) [facility] Start: 12-03-2021 Influenza vaccination Flu vaccine (# 1) [facility] Start: 05-31-2021 End: 05-31-2021 Patient encounter procedure 05/31/2021 Routine Perinatology [facility] Start: 01-17-2021 Depression Monitoring Depression Sapphire valle [facility] Start: 01-03-2021 Influenza vaccination Flu vaccine (# 1) [facility] Start: 04-04-2020 End: 01-03-2021 Complete blood count with white cell differential, manual CBC and Differential Lab Routine Fatigue, unspecified type Expected: 04/04/2020 (Approximate), Expires: 01/03/2021 [facility] Comment on above: Expected: 04/04/2020 (Approximate), Expires: 01/03/2021 Start: 04-04-2020 End: 01-03-2021 Comprehensive metabolic 2000 panel Comprehensive Metabolic Panel Lab Routine Fatigue, unspecified type Expected: 04/04/2020 (Approximate), Expires: 01/03/2021 [facility] Comment on above: Expected: 04/04/2020 (Approximate), Expires: 01/03/2021 Start: 04-04-2020 End: 01-03-2021 Magnesium [Mass/Vol] Magnesium Level Lab Routine Fatigue, unspecified type Expected: 04/04/2020 (Approximate), Expires: 01/03/2021 [facility] Comment on above: Expected: 04/04/2020 (Approximate), Expires: 01/03/2021 Start: 02-18-2020 End: 02-18-2020 Office Visit 02/18/2020 Office Visit Family Medicine Perla Rm DO [address] [place] [phone] [facility] Start: 02-15-2020 End: 02-15-2020 Office Visit 02/15/2020 Office Visit Primary Care Juanito Hernandez MD [address] [place] [address] [place] [address] [phone] [facility] Start: 01-04-2020 Influenza vaccination [place], [place] Start: 01-04-2020 Influenza vaccinatio n given Sequential Influenza Vaccine (#1) [facility] Start: 12-12-2019 DTaP,Tdap and Td Vaccines (7 - Td or Tdap) DTaP,Tdap and Td Vaccines (7 - Td or Tdap) [facility] Start: 12-12-2019 DTaP/Tdap/Td vaccine (7 - Td or Tdap) DTaP/Tdap/Td vaccine (7 - Td or Tdap) [facility] Start: 07-16-2019 Screening for Chlamy deisy trachomatis Chlamydia Screening [facility] Start: 01-03-2019 Influenza vaccination Flu vaccine (# 1) [place], [place] Start: 2018 Cervical cancer screen Cervical canc er screen [place], [place] Start: 2018 Screening for malign ant neoplasm of cervix [facility] Start: 2016 DTaP,Tdap and Td Vaccines (1 - Tdap) DTaP,Tdap and Td Vaccines (1 - Tdap) [facility] Start: 2016 DTaP/Tdap/Td vaccine (1 - Tdap) DTaP/Tdap/Td vaccine (1 - Tdap) [facility] Start: 08-15-2015 Adult BMI Follow Up Plan Adult BMI Follow Up Plan [facility] Start: 08-15-2015 Adult BMI Screening Adult BMI Screen ing [facility] Start: 08-15-2015 Diabetic foot examination Diabetic Foot Exam [facility] Start: 08-15-2015 Hepatitis C screening Hepatitis C sc reen [facility] Start: 2013 Chlamydia screen Chlamydia screen [place], [place] Start: 2013 COVID-19 Vaccine (1) COVID-19 Vaccin e (1) [facility] Work Phone: Start: 2013 Screening for Chlamy deisy trachomatis Chlamydia screen [facility] Start: 2012 HIV screen HIV screen [place], [place] Start: 2012 HIV screening HIV screen [facility] Start: 03-05-2010 Varicella vaccine (2 of 2 - 2-dose childhood series) Varicella vaccine (2 of 2 - 2-dose childhood series) [facility] Start: 2009 COVID-19 Vaccine (1) COVID-19 Vaccin e (1) [facility] Start: 2009 Depression Monitoring Depression Mon [facility] Start: 2009 Depression Screening Depression Scre ening [facility] Start: 2009 Tobacco Screening Tobacco Screening [facility] Start: 2008 DTaP/Tdap/Td vaccine (1 - Tdap) DTaP/Tdap/Td vaccine (1 - Tdap) [place], [place] Start: 2008 HPV vaccine (1 - 2-d ose series) HPV vaccine (1 - 2-dose series) [facility] Start: 2008 HPV vaccine (1 - Fem man 2-dose series) HPV vaccine (1 - Female 2-dose series) [place], [place] Start: 2008 Vaccination for maria [place] car[place] n papillomavirus HPV Vaccines (1 - 2-dose series) [facility] Start: 08-15-2003 Pneumococcal 0-64 ye ars Vaccine (1 - PCV) Pneumococcal 0-64 years Vaccine (1 - PCV) [facility] Start: 08-15-2003 Pneumococcal 0-64 ye ars Vaccine (1 of 1 - PPSV23) Pneumococcal 0-64 years Vaccine (1 of 1 - PPSV23) [place], [place] Start: 08-15-2003 Pneumococcal 0-64 ye ars Vaccine (1 of 2 - PPSV23) Pneumococcal 0-64 years Vaccine (1 of 2 - PPSV23) [facility] Start: 2002 COVID-19 Vaccine (1) COVID-19 Vaccin e (1) [facility] Start: 2000 History and physical examination, annual for health maintenance Wellness Visit [facility] Start: 1998 Varicella Vaccine (1 of 2 - 2-dose childhood series) Varicella Vaccine (1 of 2 - 2-dose childhood series) [facility] Start: 02-13-1998 COVID-19 Vaccine (#1) COVID-19 Vacci ne (#1) [facility] Start: 1997 Depression screening using PHQ-9 (Patient Health Questionnaire 9) score Depression Screening (PHQ9) [facility] Start: 1997 Glaucoma screening Diabetic Op hthalmology Exam [facility] Start: 1997 Hepatitis C screening Hepatitis C sc reen [facility] Start: 1997 Screening for malign ant neoplasm of cervix Pap Smear [facility] Start: 1997 Tetanus vaccination Tetanus: Every 1 [facility] Start: 1997 Tobacco Counseling Tobacco Counselin g [facility] Start: 1997 Urine screening for protein Urine Microalbumin [facility] End: 01-03-2021 Cholesterol [Mass/Vol] Cholesterol, Total Lab Routine Screening cholesterol level 1 Occurrences starting 01/04/2020 until 01/03/2021 [facility] Comment on above: 1 Occurrences starti ng 01/04/2020 until 01/03/2021 End: 10-22-2019 COVID-19 COVID-19 Lab Routine One Time for 1 Occurrences starting 10/22/2019 until 10/22/2019 [facility] [place] Comment on above: One Time for 1 Occur rences starting 10/22/2019 until 10/22/2019 End: 11-01-2019 Covid-19 Ambulatory Covid-19 Ambulatory Lab Routine Exposure To Covid-19 Virus Cough in adult patient 1 Occurrences starting 11/01/2019 until 11/01/2019 [place], [place] Comment on above: 1 Occurrences starti ng 11/01/2019 until 11/01/2019 Covid-19 Ambulatory Covid-19 Amb ulatory Lab Routine Exposure to COVID-19 virus Cough in adult patient 11/01/2019 11:25 AM EDT [place], [place] End: 02-10-2021 Culture, Urine Culture, Urine Microbiology Routine Once for 1 Occurrences starting 02/10/2021 until 02/10/2021 [facility] Phone: Comment on above: Once for 1 Occurrenc es starting 02/10/2021 until 02/10/2021 Culture, Urine Culture, Urine Microbiology Routine 02/10/2021 5:41 PM EDT [facility] Phone: End: 12-19-2022 Culture, Urine [facility] Comment on above: Once for 1 Occurrenc es starting 12/19/2022 until 12/19/2022 End: 10-22-2019 MDI Treatment MDI Treatment Respiratory Care Routine One Time for 1 Occurrences starting 10/22/2019 until 10/22/2019 [place], [place] Comment on above: One Time for 1 Occur rences starting 10/22/2019 until 10/22/2019 MDI Treatment MDI Treatment Respiratory Care Routine Every 6hr As Needed until discontinued starting 10/22/2019 [place], [place] Comment on above: Every 6hr As Needed until discontinued starting 10/22/2019 End: 01-03-2021 TSH Qn TSH with Reflex Free T4 Lab Routine Weight gain Fatigue, unspecified type 1 Occurrences starting 01/04/2020 until 01/03/2021 [facility] Comment on above: 1 Occurrences starti ng 01/04/2020 until 01/03/2021 Problems Active Problems Problem Classification Problem Date [...] complications of (1 source) Obesity complicating , third trimester; Translations: [Obesity complicating , third trimester] Onset: 4 Chronic Other complications of (1 source) Obesity complicating , unspecified trimester; Translations: [Obesity complicating , unspecified trimester] Onset: 4 Chronic Other complications of (1 source) Obesity complicating , second trimester; Translations: [Obesity complicating , second trimester] Onset: 4 Chronic Other complications of (1 source) Depressive disorder; Translations: [Other mental disorders complicating , first trimester] Episodic Other complications of (2 sources) Smoking (tobacco) complicating , third trimester; Translations: [SMOKING TOBACCO COMP PREG 3RD TRI] Onset: 2 Episodic Other complications of (2 sources) Bipolar disorder; Translations: [Other mental disorders complicating , second trimester] 07-29-2023 Episodic Other complications of (1 source) Maternal tobacco use; Translations: [Smoking (tobacco) complicating , second trimester] 07-29-2023 Episodic Other complications of (1 source) Placental infarction, third trimester; Translations: [Placental infarction, third trimester] Onset: 4 Episodic Other connective tissue [...] nutritional; endocrine; and metabolic disorders (1 source) Morbid (severe) obesity due to excess calories; Translations: [Morbid (severe) obesity due to excess calories] Onset: 4 Chronic Other nutritional; endocrine; and metabolic disorders (2 sources) Weight gain; Translations: [Weight gain] Onset: 0 01-04-2020 Episodic Other nutritional; endocrine; and metabolic disorders (1 source) Other symptoms and signs concerning food and fluid intake; Translations: [Other symptoms concerning nutrition, metabolism, and development] Episodic Other and delivery including normal (7 sources) Second trimester ; Translations: [Encounter for supervision of normal , unspecified, second trimester] Onset: 2 Episodic Other screening for suspected conditions (not mental disorders or infectious disease) (9 sources) Encounter for screening for Streptococcus B; Translations: [Encounter for screening for diabetes mellitus] Onset: 2 Episodic Other upper respiratory infections (1 source) Acute sinusitis; Translations: [Acute sinusitis, recurrence not specified, unspecified location] Episodic Personality disorders (9 sources) Borderline personality disorder; Translations: [Borderline personality disorder] Onset: 1 08-02-2020 Chronic Polyhydramnios and other problems of amniotic cavity (1 source) Polyhydramnios, third trimester, not applicable or unspecified; Translations: [Polyhydramnios, third trimester, not applicable or unspecified] Onset: 4 Episodic Residual codes; unclassified (1 source) Tobacco user; Translations: [Tobacco abuse] Chronic Residual codes; unclassified (1 source) 26 weeks gestation of ; Translations: [26 weeks gestation of ] Onset: 4 Episodic Substance-related disorders (5 sources) Smoker; Translations: [Nicotine dependence, cigarettes, uncomplicated] [...] EXPOS COVID-19] Onset: 2 Unclassified (1 source) Acute candidiasis of vulva and vagina; Translations: [Acute candidiasis of vulva and vagina] Onset: 3 Unclassified (1 source) T1DM Onset: 4 Urinary tract infections (4 sources) Acute cystitis; [...] CHILDBIRTH] Onset: 10-09-2021 Episodic Other complications of (4 sources) Other specified related conditions, third trimester; Translations: [OTH SPEC PREG RELATED COND 3RD TRI] Onset: 10-01-2021 Episodic Other complications of (4 sources) Supervision of high risk , unspecified, unspecified trimester; Translations: [SUP HIGH RISK UNS UNS TRI] Onset: 07-17-2021 Episodic Other complications of (1 source) Smoking (tobacco) complicating , second trimester; Translations: [Smoking (tobacco) complicating , second trimester] Onset: 07-29-2023 Episodic Other complications of (1 source) Other mental disorders complicating , second trimester; Translations: [Other mental disorders complicating , second trimester] Onset: 07-29-2023 Episodic Other female genital disorders (1 source) [...] back pain without sciatica] Onset: 12-22-2022 Episodic Procedures Date Procedure Procedure Detail Performing Clinician [...] total Hoang Santos MD Work Phone: Start: 11-09-2022 Radex spine lumbosac ral minimum 4 views [...] difrntl wbc Bea Jacobs Work Phone: Start: 03-30-2021 Gonadotropin chorion ic qualitative Bea Carrasco Reynaldo Work Phone: Start: 08-01-2020 Assay of acetaminophen Noelneetu Carrasco Reynaldo Work Phone: Start: 08-01-2020 Assay of ethanol Noel Carrasco Reynaldo Work Phone: Start: 08-01-2020 COVID-19, RAPID Celso Carrasco Reynaldo Work Phone: Start: 03-22-2020 Microscopic observat ion [Identifier] in Cervix by Cyto stain Braydon May MD Work Phone: Start: 01-18-2020 Assay of thyroid stimulating hormone tsh Perla Snowdenloisjakub Work Phone: Start: 01-18-2020 Blood count complete auto&auto difrntl wbc Perla Snowdenloisjakub Work Phone: Start: 01-18-2020 Comprehensive metabo lic panel Perla Ramon Burnsjakub Work Phone: Start: 04-06-2019 Radiologic exam ches [...] Work Phone: Excision of elan [place] is Results Test Name Value Interpretation Reference Range Facility Glucose Glucometer (BldC) [M ass/Vol]on 11-03-2023 Glucose [Mass/Vol] 172 mg/dL High 65-99 [facility] Glucose [Mass/Vol] 127 mg/dL High 65-99 [facility] Glucose Glucometer (BldC) [M ass/Vol]on 11-02-2023 Glucose [Mass/Vol] 137 mg/dL High 65-99 [facility] Glucose [Mass/Vol] 189 mg/dL High 65- [facility] Glucose [Mass/Vol] 157 mg/dL High 65- [facility] Glucose [Mass/Vol] 160 mg/dL High 65- [facility] Glucose [Mass/Vol] 162 mg/dL High 65- [facility] VAGINITIS PANEL PCRon 2023 VAGINITIS PANEL PCR BACT. VAGINOSIS DNA Not detected (qualifier value) Qualitative results are reported based on detection and quantitation of targeted organism markers which include: Lactobacillus spp. (L. crispatus and L. jensenii), Gardnerella vaginalis, Atopobium vaginae, Bacterial Vaginosis Associated Bacteria-2 (BVAB-2) and Megasphaera-1 TEETEE SPECIES DNA Detected (qualifier value) Teetee species result based on detection of one or more of the following species: C. albicans, C. tropicalis, C. parapsilosis or C. dubliniensis TEETEE KRUSEI DNA Not detected (qualifier value) No Teetee krusei detected TEETEE GLABRATA DNA Not detected (qualifier value) No Teetee glabrata detected TRICHOMONAS VAG DNA Not detected (qualifier value) No Trichomonas vaginalis detected NOTE BD MAX Vaginal Panel has not been evaluated for patients under 18 years old. Results for these patients should be reviewed and assessed in accordance with clinical presentation to determine patient diagnosis. Normal [facility] Comment on above: Performed By: #### C BCA, CMP, THYR, HA1C, 08879-2 #### [facility] ([id number]) [address] [place] [address] Glucose Glucometer (BldC) [M ass/Vol]on 11-01-2023 Glucose [Mass/Vol] 98 mg/dL Normal 65-99 [facility] Glucose [Mass/Vol] 172 mg/dL High 65- [facility] Glucose [Mass/Vol] 147 mg/dL High 65- [facility] Glucose [Mass/Vol] 138 mg/dL High 65- [facility] Glucose [Mass/Vol] 137 mg/dL High 65-99 [facility] CBC AND AUTO DIFFon 10-31-19 ABSOLUTE BASOPHIL 0.0 X10E9/L Normal 0.0-0.2 [facility] Comment on above: Performed By: #### C BCA, CMP, THYR, HA1C, 43308-2 #### [facility] ([id number]) [address], [address] [place] [address] ABSOLUTE NEUTROPHIL 5.2 X10E9/L Normal 1.5-6.6 [facility] Comment on above: Performed By: #### C BCA, CMP, THYR, HA1C, 30189-5 #### [facility] ([id number]) [address], [address] [place] [address] Basophils/100 WBC (Bld) 0.3 % Normal [facility] Comment on above: Performed By: #### C BCA, CMP, THYR, HA1C, 39329-3 #### [facility] ([id number]) [address], [address] [place] [address] Eosinophils (Bld) [#/Vol] 0.0 10*3/uL Normal 0.0-0.4 [facility] Comment on above: Performed By: #### C BCA, CMP, THYR, HA1C, 85492-4 #### [facility] ([id number]) [address], [address] [place] [address] Eosinophils/100 WBC (Bld) 0.3 % Normal [facility] Comment on above: Performed By: #### C BCA, CMP, THYR, HA1C, 23315-1 #### [facility] ([id number]) [address], [address] [place] [address] Erythrocyte distribution width (RBC) [Ratio] 13.5 % Normal 11.5-15.0 [facility] Comment on above: Performed By: #### C BCA, CMP, THYR, HA1C, 21149-2 #### [facility] ([id number]) [address] [place] [address] Hematocrit (Bld) [Volume fraction] 30.4 % Low 35-47 [facility] Comment on above: Performed By: #### C BCA, CMP, THYR, HA1C, 29770-3 #### [facility] ([id number]) [address] [place] [address] Hemoglobin (Bld) [Mass/Vol] 10.2 g/dL Low 11.7-15.5 [facility] Comment on above: Performed By: #### C BCA, CMP, THYR, HA1C, 40266-3 #### [facility] ([id number]) [address] [place] [address] Lymphocytes (Bld) [#/Vol] 1.5 10*3/uL Normal 1.0-3.5 [facility] Comment on above: Performed By: #### C BCA, CMP, THYR, HA1C, 61221-7 #### [facility] ([id number]) [address] [address] Lymphocytes/100 WBC (Bld) 20.8 % Normal [facility] Comment on above: Performed By: #### C BCA, CMP, THYR, HA1C, 89151-8 #### [facility] ([id number]) [address] [place] [address] MCH (RBC) [Entitic mass] 26.6 pg Low 27-34 [facility] Comment on above: Performed By: #### C BCA, CMP, THYR, HA1C, 31875-8 #### [facility] ([id number]) [address] [place] [address] MCHC (RBC) [Mass/Vol] 33.4 g/dL Normal 32-36 [facility] Comment on above: Performed By: #### C BCA, CMP, THYR, HA1C, 28888-1 #### [facility] ([id number]) [address], [address] [place] [address] MCV (RBC) [Entitic vol] 80 fL Normal 80-100 [facility] Comment on above: Performed By: #### C BCA, CMP, THYR, HA1C, 95323-5 #### [facility] ([id number]) [address], [facility] [address] [place] [address] Monocytes (Bld) [#/Vol] 0.4 10*3/uL Normal 0-0.9 [facility] Comment on above: Performed By: #### C BCA, CMP, THYR, HA1C, 62431-7 #### [facility] ([id number]) [address], [address] [place] [address] Monocytes/100 WBC (Bld) 5.5 % Normal [facility] Comment on above: Performed By: #### C BCA, CMP, THYR, HA1C, 99555-9 #### [facility] ([id number]) [address], [address] [place] [address] Neutrophils/100 WBC (Bld) 73.1 % Normal [facility] Comment on above: Performed By: #### C BCA, CMP, THYR, HA1C, 77492-4 #### [facility] ([id number]) [address], [address] [place] [address] Platelet mean volume (Bld) [Entitic vol] 10.1 fL Normal 7-12 [facility] Comment on above: Performed By: #### C BCA, CMP, THYR, HA1C, 65934-0 #### [facility] ([id number]) [address], [address] [place] [address] Platelets (Bld) [#/Vol] 184 10*3/uL Normal 150-450 [facility] Comment on above: Performed By: #### C BCA, CMP, THYR, HA1C, 49528-6 #### [facility] ([id number]) [address], [address] [place] [address] RBC COUNT 3.83 X10E12/L Normal 3.80-5.20 [facility] Comment on above: Performed By: #### C BCA, CMP, THYR, HA1C, 57785-0 #### [facility] ([id number]) [address], [address] [address] WBC (Bld) [#/Vol] 7.1 10*3/uL Normal 4.0-11.0 [facility] Comment on above: Performed By: #### C BCA, CMP, THYR, HA1C, 23890-9 #### [facility] ([id number]) [address], [address] [address] CHLAMYDIA/GC BY PCRon 2023 CHLAMYDIA/GC BY PCR SPECIMEN SOURCE CERVIX CHLAMYDIA DNA(PCR) Negative (qualifier value) Chlamydia trachomatis not detected by nucleic acid amplification. This does not exclude the possibility of infection because results are dependent on adequate specimen collection. GONORRHOEAE DNA(PCR) Negative (qualifier value) Neisseria gonorrhoeae not detected by nucleic acid amplification. This does not exclude the possibility of infection because results are dependent on adequate specimen collection. Normal [facility] Comment on above: Performed By: #### C BCA, CMP, THYR, HA1C, 47716-0 #### [facility] ([id number]) [address], [address] [place] [address] COMPREHENSIVE METABOLIC PANE Nick 10-31-2023 Albumin [Mass/Vol] 3.0 g/dL Low 3.2-5.3 [facility] Comment on above: Performed By: #### C BCA, CMP, THYR, HA1C, 37307-4 #### [facility] ([id number]) [address], [address] [place] [address] ALP [Catalytic activity/Vol] 109 U/L Normal 39-130 [facility] Comment on above: Performed By: #### C BCA, CMP, THYR, HA1C, 03338-7 #### [facility] ([id number]) [address], [address] [place] [address] ALT [Catalytic activity/Vol] 13 U/L Normal 0-31 [facility] Comment on above: Performed By: #### C BCA, CMP, THYR, HA1C, 66371-8 #### [facility] ([id number]) [address], [address] [place] [address] Anion gap [Moles/Vol] 10 mmol/L Normal 5-15 [facility] Comment on above: Performed By: #### C BCA, CMP, THYR, HA1C, 50352-5 #### [facility] ([id number]) [address], [address] [place] [address] AST [Catalytic activity/Vol] 19 U/L Normal 0-41 [facility] Comment on above: Performed By: #### C BCA, CMP, THYR, HA1C, 66042-3 #### [facility] ([id number]) [address], [address] [place] [address] Bilirubin [Mass/Vol] 0.4 mg/dL Normal 0.3-1.2 [facility] Comment on above: Performed By: #### C BCA, CMP, THYR, HA1C, 62987-5 #### [facility] ([id number]) [address], [address] [place] [address] Calcium [Mass/Vol] 8.4 mg/dL Low 8.5-10.5 [facility] Comment on above: Performed By: #### C BCA, CMP, THYR, HA1C, 61015-2 #### [facility] ([id number]) [address], [address] [place] [address] Chloride [Moles/Vol] 106 mmol/L Normal 98-109 [facility] Comment on above: Performed By: #### C BCA, CMP, THYR, HA1C, 37313-6 #### [facility] ([id number]) [address], [address] [place] [address] CO2 [Moles/Vol] 20 mmol/L Low 22-32 [facility] Comment on above: Performed By: #### C BCA, CMP, THYR, HA1C, 11768-1 #### [facility] ([id number]) [address] [place] [address] Creatinine [Mass/Vol] 0.53 mg/dL Normal 0.40-1.00 [facility] Comment on above: Result Comment: METH OD TRACEABLE TO IDMS STANDARD Performed By: #### C BCA, CMP, THYR, HA1C, 25276-1 #### [facility] ([id number]) [address] [address] [address] [place] [address] eGFR (CKD-EPI) NON-RACE DEPENDENT >90 Normal >59 [facility] Comment on above: Result Comment: Reported eGFR is based on the CKD-EPI 2020 equation that does not use a race coefficient. Performed By: #### C BCA, CMP, THYR, HA1C, 18241-2 #### [facility] ([id number]) [address] [place] [address] Glucose [Mass/Vol] 134 mg/dL High 65-99 [facility] Comment on above: Performed By: #### C BCA, CMP, THYR, HA1C, 51842-2 #### [facility] ([id number]) [address] [place] [address] Potassium [Moles/Vol] 3.7 mmol/L Normal 3.5-5.0 [facility] Comment on above: Performed By: #### C BCA, CMP, THYR, HA1C, 95418-5 #### [facility] ([id number]) [address], [address] [place] [address] Protein [Mass/Vol] 5.9 g/dL Low 6.0-8.0 [facility] Comment on above: Performed By: #### C BCA, CMP, THYR, HA1C, 75374-2 #### [facility] ([id number]) [address], [address] [place] [address] Sodium [Moles/Vol] 136 mmol/L Normal 134-146 [facility] Comment on above: Performed By: #### C BCA, CMP, THYR, HA1C, 00292-1 #### [facility] ([id number]) [address], [address] [place] [address] Urea nitrogen [Mass/Vol] 7 mg/dL Normal 5-23 [facility] Comment on above: Performed By: #### C BCA, CMP, THYR, HA1C, 35797-2 #### [facility] ([id number]) [address], [address] [place] [address] DRUG SCREEN, URINEon 024 AMPHETAMINE/METHAMP Negative Normal NEG [facility] Comment on above: Result Comment: AMPH /METH screening cut off = 1000 ng/mL Performed By: #### D STAPLES #### [facility] ([id number]) [address], [address] [place] [address] BARBITURATES Negative Normal NEG [facility] Comment on above: Result Comment: Vandana iturates screening cut off value = 200 ng/mL Performed By: #### D STAPLES #### [facility] ([id number]) [address], [address] [place] [address] BENZODIAZEPINES Positive Abnormal NEG [facility] Comment on above: Result Comment: Conf irmation available upon request. Benzodiazepines screening cut off value = 200 ng/mL Performed By: #### D STAPLES #### [facility] ([id number]) [address], [address] [place] [address] CANNABINOIDS Positive Abnormal NEG [facility] Comment on above: Result Comment: Conf irmation available upon request. Cannabinoids/THC screening cut off value = 50 ng/mL Performed By: #### D STAPLES #### [facility] ([id number]) [address], [address] [place] [address] COCAINE METABOLITE Negative Normal NEG [facility] Comment on above: Result Comment: Coca ine screening cut off value = 300 ng/mL Performed By: #### D STAPLES #### [facility] ([id number]) [address], [address] [place] [address] ECSTASY Negative Normal NEG [facility] Comment on above: Result Comment: Ecst asy screening cut off value = 500 ng/mL This report is intended for use in clinical monitoring or management of patients. Performed By: #### D STAPLES #### [facility] ([id number]) [address], [address] [place] [address] METHADONE Negative Normal NEG [facility] Comment on above: Result Comment: Meth adone screening cut off value = 300 ng/mL. Performed By: #### D STAPLES #### [facility] ([id number]) [address], [address] [place] [address] OPIATES Negative Normal NEG [facility] Comment on above: Result Comment: Opia satya screening cut off value = 300 ng/mL NOTE: This test is used for the detection of codeine, hydrocodone (>1000 ng/mL), morphine and hydromorphone (>900 ng/mL) in urine. Performed By: #### D STAPLES #### [facility] ([id number]) [address], [address] [place] [address] OXYCODONE Negative Normal NEG [facility] Comment on above: Result Comment: Oxyc odone screening cut off value = 300 ng/mL NOTE: This test is used for the detection of oxycodone and oxymorphone in urine. Performed By: #### D STAPLES #### [facility] ([id number]) [address], [address] [place] [address] PHENCYCLIDINE Negative Normal NEG [facility] Comment on above: Result Comment: Phen cyclidine screening cut off value = 25 ng/mL Performed By: #### D STAPLES #### [facility] ([id number]) [address], [address] [place] [address] Glucose Glucometer (BldC) [M ass/Vol]on 10-31-2023 Glucose [Mass/Vol] 130 mg/dL High 65-99 [facility] HGB A1C (GLYCO-HGB)on 2023 Glucose [Mass/Vol] 148 mg/dL Normal [facility] Comment on above: Performed By: #### C BCA, CMP, THYR, HA1C, 44769-2 #### [facility] ([id number]) [address], [address] [place] [address] HbA1c (Bld) [Mass fraction] 6.8 % High 4.4-5.6 [facility] Comment on above: Result Comment: NOTE ADA Guidelines Result HgbA1c Normal : less than 5.7 % Prediabetes : 5.7 % to 6.4 % Diabetes : > 6.4 % Use with caution in patients with abnormal hemoglobin variants as the half-life of red blood cells and in vivo glycation rates are affected. Performed By: #### C BCA, CMP, THYR, HA1C, 41976-8 #### [facility] ([id number]) [address], [address] [place] [address] STREP B PCR VAG/RECTon 10-30 S. agalactiae Org specific cx Ql (Vag+Rectum) Negative Normal NEG [facility] Comment on above: Performed By: #### 7 2607-5 #### [facility] ([id number]) [address], [address] [place] [address] T. pallidum IgG+IgM IA Ql (S )on 10-31-2023 Syphilis Total <0.2 Normal 0.0-0.8 [facility] Comment on above: Result Comment: NON REACTIVE No serologic evidence of infection to Treponema pallidum (syphilis). Repeat testing may be considered in patients with suspected acute or primary syphilis in 2 to 4 weeks. Performed By: #### C BCA, CMP, THYR, HA1C, 33808-1 #### [facility] ([id number]) [address] [place] [address] THYROID PROFILEon 10-31-2023 Free T4 [Mass/Vol] 0.75 ng/dL Normal 0.61-1.60 [facility] Comment on above: Performed By: #### C BCA, CMP, THYR, HA1C, 07519-0 #### [facility] ([id number]) [address] [place] [address] TSH 2.80 uIU/mL Normal 0.49-4.67 [facility] Comment on above: Performed By: #### C BCA, CMP, THYR, HA1C, 83910-6 #### [facility] ([id number]) [address] [place] [address] URINALYSISon 10-31-2023 Bilirubin Ql (U) Negative Normal NEG [facility] Comment on above: Performed By: #### U A #### [facility] ([id number]) [address], [address] [place] [address] BLOOD/HGB Negative Normal NEG [facility] Comment on above: Performed By: #### U A #### [facility] ([id number]) [address], [address] [place] [address] Color (U) YELLOW Normal YELLOW [facility] Comment on above: Performed By: #### U A #### [facility] ([id number]) [address], [address] [place] [address] Glucose Ql (U) 50 mg/dL Abnormal NEG [facility] Comment on above: Performed By: #### U A #### [facility] ([id number]) [address] [place] [address] Ketones Ql (U) 10 mg/dL Abnormal NEG [facility] Comment on above: Performed By: #### U A #### [facility] ([id number]) [address], [address] [place] [address] Leukocyte esterase Test strip Ql (U) Large Abnormal NEG [facility] Comment on above: Performed By: #### U A #### [facility] ([id number]) [address], [address] [place] [address] MUCOUS PRESENT Abnormal NONE [facility] Comment on above: Performed By: #### U A #### [facility] ([id number]) [address], [address] [place] [address] Nitrite Ql (U) Negative Normal NEG [facility] Comment on above: Performed By: #### U A #### [facility] ([id number]) [address] [place] [address] pH (U) 6.5 [pH] Normal 5.0-8.5 [facility] Comment on above: Performed By: #### U A #### [facility] ([id number]) [address] [place] [address] Protein Ql (U) 70 mg/dL Abnormal NEG [facility] Comment on above: Performed By: #### U A #### [facility] ([id number]) [address] [place] [address] R.B.CELLS 2 /hpf Normal 0-5 [facility] Comment on above: Performed By: #### U A #### [facility] ([id number]) [address] [address] Specific gravity (U) [Rel density] 1.039 High 1.003-1.035 [facility] Comment on above: Performed By: #### U A #### [facility] ([id number]) [address] [address] SQUAMOUS EPITHELIUM 18 /hpf High 0-5 [facility] Comment on above: Performed By: #### U A #### [facility] ([id number]) [address] [address] TURBIDITY HAZY Abnormal CLEAR [facility] Comment on above: Performed By: #### U A #### [facility] ([id number]) [address] [address] Urobilinogen Qn (U) 4 {Sariah'U}/dL High <1.1 [facility] Comment on above: Performed By: #### U A #### [facility] ([id number]) [address] [address] W.B.CELLS 36 /hpf High 0-5 [facility] Comment on above: Performed By: #### U A #### [facility] ([id number]) [address] [place] [address] URINE CULTUREon 10-31-2023 Bacteria identified Cx Nom (U) SPECIMEN NOTES URINE RECEIVED WITHOUT PRESERVATIVE CULTURE RESULTS 10-50,000 ORGANISMS/mL NORMAL UROGENITAL LEANA Normal [facility] Comment on above: Performed By: #### C BCA, CMP, THYR, [place], 41196-9 #### [facility] ([id number]) [address] [place] [address], [address] [place] [address] VAGINITIS PANEL PCRon 2023 VAGINITIS PANEL PCR BACT. VAGINOSIS DNA Indeterminate Qualitative results are reported based on detection and quantitation of targeted organism markers which include: Lactobacillus spp. (L. crispatus and L. jensenii), Gardnerella vaginalis, Atopobium vaginae, Bacterial Vaginosis Associated Bacteria-2 (BVAB-2) and Megasphaera-1 TEETEE SPECIES DNA Indeterminate TEETEE KRUSEI DNA Indeterminate TEETEE GLABRATA DNA Indeterminate TRICHOMONAS VAG DNA Indeterminate NOTE BD MAX Vaginal Panel has not been evaluated for patients under 18 years old. Results for these patients should be reviewed and assessed in accordance with clinical presentation to determine patient diagnosis. Normal [facility] Comment on above: Performed By: #### C BCA, CMP, [place], 12[address]-1 #### [facility] ([id number]) [address], [address] [place] [address] ED Prov Noteon 10-13-2023 ED Prov Note ED PROVIDER NOTE [facility] NAME: Riri Dempsey AGE: 28 y.o. : 1995 VISIT DATE: 10/13/2023 CSN: [id number] PCP: Gaye Josue CNP Chief Complaint Patient presents with Leg Pain [...] minutes she had diffuse abdominal tightness like [place] contractions she said. It happened to [...] She has yet to talk with her ICD 9 CODER about any of this and they have told her they can get her in for over a week. They recommended that she come to emergency department. Her local [place] does not have ICD 9 CODER services so she came here. She typically gets her OB care at [facility] by Dr. Loy Asher. Additionally she [...] (5 mg total) by mouth daily . Lantus Solostar U-100 Insulin 100 unit/mL (3 mL) InPn [...] to speak (more content not included)... Normal [facility] URINALYSISon 10-13-2023 BACTERIA, URINE Few Abnormal None Seen [facility] Comment on above: Order Comment: Micro scopic examination is performed on all urinalysis samples and only positive findings are reported. The test for blood on the chemical analytic portion of urinalysis may also be positive due to hemoglobinuria and myoglobinuria and if red blood cells are present they are quantified by microscopic examination. Performed By: #### 4 6625 #### [facility] [address] [place] [address] Diego Hamilton M.D. [id number] BILIRUBIN, URINE Positive Abnormal Negative [facility] Comment on above: Order Comment: Micro [...] Performed By: #### 4 6625 #### [facility] [place] [address] Diego Hamilton M.D. [id number] BLOOD, URINE Negative Normal Negative [facility] Comment on above: Order Comment: Micro scopic examination is performed on all urinalysis samples and only positive findings are reported. The test for blood on the chemical analytic portion of urinalysis may also be positive due to hemoglobinuria and myoglobinuria and if red blood cells are present they are quantified by microscopic examination. Performed By: #### 4 6625 #### [facility] [address] [place] [address] Diego Hamilton M.D. [id number] Clarity (U) Clear Normal Clear [facility] Comment on above: Order Comment: Micro scopic examination is performed on all urinalysis samples and only positive findings are reported. The test for blood on the chemical analytic portion of urinalysis may also be positive due to hemoglobinuria and myoglobinuria and if red blood cells are present they are quantified by microscopic examination. Performed By: #### 4 6625 #### [facility] [address] [place] [address] Diego Hamilton M.D. [id number] Color (U) Kay Abnormal Colorless, Yellow [facility] Comment on above: Order Comment: Micro scopic examination is performed on all urinalysis samples and only positive findings are reported. The test for blood on the chemical analytic portion of urinalysis may also be positive due to hemoglobinuria and myoglobinuria and if red blood cells are present they are quantified by microscopic examination. Performed By: #### 4 6625 #### [facility] [place] [address] Diego Hamilton M.D. [id number] Glucose Ql (U) Negative Normal Negative [facility] Comment on above: Order Comment: Micro scopic examination is performed on all urinalysis samples and only positive findings are reported. The test for blood on the chemical analytic portion of urinalysis may also be positive due to hemoglobinuria and myoglobinuria and if red blood cells are present they are quantified by microscopic examination. Performed By: #### 4 6625 #### [facility] [place] [address] Diego Hamilton M.D. [id number] Ketones Ql (U) >=80 Abnormal Negative [facility] Comment on above: Order Comment: Micro scopic examination is performed on all urinalysis samples and only positive findings are reported. The test for blood on the chemical analytic portion of urinalysis may also be positive due to hemoglobinuria and myoglobinuria and if red blood cells are present they are quantified by microscopic examination. Performed By: #### 4 6625 #### [facility] [place] [address] Diego Hamilton M.D. [id number] Leukocyte esterase Test strip Ql (U) Small Abnormal Negative [facility] Comment on above: Order Comment: Micro scopic examination is performed on all urinalysis samples and only positive findings are reported. The test for blood on the chemical analytic portion of urinalysis may also be positive due to hemoglobinuria and myoglobinuria and if red blood cells are present they are quantified by microscopic examination. Performed By: #### 4 6625 #### [facility] [place] [address] Diego Hamilton M.D. [id number] NITRITE, URINE Negative Normal [facility] Comment on above: Order Comment: Micro scopic examination is performed on all urinalysis samples and only positive findings are reported. The test for blood on the chemical analytic portion of urinalysis may also be positive due to hemoglobinuria and myoglobinuria and if red blood cells are present they are quantified by microscopic examination. Performed By: #### 4 6625 #### [place] [address] Diego Hamilton M.D. [id number] pH (U) 6.5 [pH] Normal 5.0-7.0 [facility] Comment on above: Order Comment: Micro scopic examination is performed on all urinalysis samples and only positive findings are reported. The test for blood on the chemical analytic portion of urinalysis may also be positive due to hemoglobinuria and myoglobinuria and if red blood cells are present they are quantified by microscopic examination. Performed By: #### 4 6625 #### [place] [address] Diego Hamilton M.D. [id number] Protein (U) [Mass/Vol] 30 mg/dL Abnormal Negative [facility] Comment on above: Order Comment: [...] compounds. Performed By: #### 4 6625 #### [place] [address] Diego Hamilton M.D. [id number] RBC LM.HPF (Urine sed) [#/Area] 2 /[HPF] Normal 0-3 [facility] Comment on above: Order Comment: Micro scopic examination is performed on all urinalysis samples and only positive findings are reported. The test for blood on the chemical analytic portion of urinalysis may also be positive due to hemoglobinuria and myoglobinuria and if red blood cells are present they are quantified by microscopic examination. Performed By: #### 4 6625 #### [place] [address] Diego Hamilton M.D. [id number] Specific gravity (U) [Rel density] >= High 1.005-1.025 [facility] Comment on above: Order Comment: Micro scopic examination is performed on all urinalysis samples and only positive findings are reported. The test for blood on the chemical analytic portion of urinalysis may also be positive due to hemoglobinuria and myoglobinuria and if red blood cells are present they are quantified by microscopic examination. Performed By: #### 4 6625 #### [facility] [place] [address] Diego Hamilton M.D. [id number] SQUAMOUS EPITHELIAL 7 /hpf High 0-4 [facility] [...] Performed By: #### 4 6625 #### [facility] [place] [address] Diego Hamilton M.D. [id number] UROBILINOGEN, URINE <2.0 Normal <2.0 [facility] [...] examination. Performed By: #### 4 6625 #### [place] [address] Diego Hamilton M.D. [id number] WBC LM.HPF (Urine sed) [#/Area] 45 /[HPF] High 0-5 [facility] Comment on above: Order Comment: Micro scopic examination is performed on all urinalysis samples and only positive findings are reported. The test for blood on the chemical analytic portion of urinalysis may also be positive due to hemoglobinuria and myoglobinuria and if red blood cells are present they are quantified by microscopic examination. Performed By: #### 4 6625 #### [place] [address] Diego Hamilton M.D. [id number] URINE AEROBIC CULTUREon 10-03 URINE AEROBIC CULTURE URINE CULTURE No Growth (<1,000 CFU/mL) [facility] Comment on above: Performed By: #### 4 4053 #### [facility] [address] [place] [address] Hilton Fox M.D. [id number] Basic Metabolic Profon 10-08 Anion gap [Moles/Vol] 18 mmol/L High 9-17 [facility] Comment on above: Performed By: #### C DP, BMP #### [facility] [address] [place], [place] [address] [employer]: Zayra Chapman MD BUN/CRE Ratio 18 Normal - [facility] Comment on above: Performed By: #### C DP, BMP #### [facility] [address] [place] [address] [employer]: Zayra Chapman MD Calcium [Mass/Vol] 8.7 mg/dL Normal 8.6-10.4 [facility] Comment on above: Performed By: #### C DP, BMP #### [facility] [address] [place], [place] [address] [employer]: Zayra Chapman MD Chloride [Moles/Vol] 103 mmol/L Normal 98-107 [facility] Comment on above: Performed By: #### C DP, BMP #### [facility] [address] [place] [address] [employer]: Zayra Chapman MD CO2 [Moles/Vol] 15 mmol/L Low 20-31 [facility] Comment on above: Performed By: #### C DP, BMP #### [facility] [address] [place], [place] [id number] [employer]: Zayra Chapman MD Creatinine [Mass/Vol] 0.4 mg/dL Low 0.5-0.9 [facility] Comment on above: Performed By: #### C DP, BMP #### [facility] [address] [place] [address] [employer]: Zayra Chapman MD GFR/1.73 sq M.predicted among non-blacks MDRD (S/P/Bld) [Vol rate/Area] mL/min/{1.73_m2} Normal >60 [facility] Comment on above: Result Comment: These results [...] Performed By: #### C DP, BMP #### [facility] [address] [place] [address] [employer]: Zayra Chapman MD Glucose [Mass/Vol] 143 mg/dL High 70-99 [facility] Comment on above: Performed By: #### C DP, BMP #### [facility] [address] [place], [place] [id number] [employer]: Zayra Chapman MD Potassium [Moles/Vol] 3.6 mmol/L Low 3.7-5.3 [facility] Comment on above: Performed By: #### C DP, BMP #### [facility] [address] [place] [address] [employer]: Zayra Chapman MD Sodium [Moles/Vol] 136 mmol/L Normal 135-144 [facility] Comment on above: Performed By: #### C DP, BMP #### [facility] [address] [place] [address] [employer]: Zayra Chapman MD Urea nitrogen [Mass/Vol] 7 mg/dL Normal 6-20 [facility] Comment on above: Performed By: #### C DP, BMP #### [facility] [address] [place] [id number] [employer]: Zayra Chapman MD CBC with Diffon 10-09-2023 Abs. Basophil 0.04 k/uL Normal 0.00-0.20 [facility] Comment on above: Performed By: #### C DP, BMP #### [facility] [address] [place] [address] [employer]: Zayra Chapman MD Abs.Imm.Granulocyte 0.03 k/uL Normal 0.00-0.30 [facility] Comment on above: Performed By: #### C DP, BMP #### [facility] [address] [place] [address] [employer]: Zayra Chapman MD Abs.Neutrophil (Seg) 6.85 k/uL Normal 2.5-7.0 [facility] Comment on above: Performed By: #### C DP, BMP #### [facility] [address] [place] [address] [employer]: Zayra Chapman MD Basophils/100 WBC (Bld) 0 % Normal 0-[address] [facility] Comment on above: Performed By: #### C DP, BMP #### [facility] [address] [place] [address] [employer]: Zayra Chapman MD Eosinophils (Bld) [#/Vol] 0.08 10*3/uL Normal 0.00-0.40 [facility] Comment on above: Performed By: #### C DP, BMP #### [facility] [address] [place] [id number] [employer]: Zayra Chapman MD Eosinophils/100 WBC (Bld) 1 % Normal 0-5 [facility] Comment on above: Performed By: #### C DP, BMP #### [facility] [address] [place] [address] [employer]: Zayra Chapman MD Erythrocyte distribution width (RBC) [Ratio] 13.1 % Normal 12.1-15.2 [facility] Comment on above: Performed By: #### C DP, BMP #### [facility] [address] [place] [address] [employer]: Zayra Chapman MD Hematocrit (Bld) [Volume fraction] 31.5 % Low 36.0-46.0 [facility] Comment on above: Performed By: #### C DP, BMP #### [facility] [address] [place] [address] [employer]: Zayra Chapman MD Hemoglobin (Bld) [Mass/Vol] 10.3 g/dL Low 12.0-16.0 [facility] Comment on above: Performed By: #### C DP, BMP #### [facility] [address] [place] [address] [employer]: Zayra Chapman MD Immature granulocytes/100 WBC (Bld) 0 % Normal 0-5 [facility] Comment on above: Performed By: #### C DP, BMP #### [facility] [address] [place] [address] [employer]: Zayra Chapman MD Lymphocytes (Bld) [#/Vol] 1.83 10*3/uL Normal 1.00-4.80 [facility] Comment on above: Performed By: #### C DP, BMP #### [facility] [address] [place] [address] [employer]: Zayra Chapman MD Lymphocytes/100 WBC (Bld) 20 % Normal 15-40 [facility] Comment on above: Performed By: #### C DP, BMP #### [facility] [address] [place] [address] [employer]: Zayra Chapman MD MCH (RBC) [Entitic mass] 27.4 pg Normal 26.0-34.0 [facility] Comment on above: Performed By: #### C DP, BMP #### [facility] [address] [place] [address] [employer]: Zayra Chapman MD MCHC (RBC) [Mass/Vol] 32.7 g/dL Normal 31.0-37.0 [facility] Comment on above: Performed By: #### C DP, BMP #### [facility] [address] [place] [address] [employer]: Zayra Chapman MD MCV (RBC) [Entitic vol] 83.8 fL Normal 80.0-100.[address] [facility] Comment on above: Performed By: #### C DP, BMP #### [facility] [address] [place] [address] [employer]: Zayra Chapman MD Monocytes (Bld) [#/Vol] 0.50 10*3/uL Normal 0.00-1.00 [facility] Comment on above: Performed By: #### C DP, BMP #### [facility] [address] [place] [address] [employer]: Zayra Chapman MD Monocytes/100 WBC (Bld) 5 % Normal 4-[address] [facility] Comment on above: Performed By: #### C DP, BMP #### [facility] [address] [place] [address] [employer]: Zayra Chapman MD Neutrophil (Seg) 74 % Normal 47-75 [facility] Comment on above: Performed By: #### C DP, BMP #### [facility] [address] [place] [address] [employer]: Zayra Chapman MD Platelet mean volume (Bld) [Entitic vol] 11.3 fL Normal 6.0-12.0 [facility] Comment on above: Performed By: #### C DP, BMP #### [facility] [address] [place] [address] [employer]: Zayra Chapman MD Platelets (Bld) [#/Vol] 201 10*3/uL Normal 140-450 [facility] Comment on above: Performed By: #### C DP, BMP #### [facility] [address] [place] [address] (018) [employer]: Zayra Chapman MD RBC (Bld) [#/Vol] 3.76 10*6/uL Low 4.00-5.20 [facility] Comment on above: Performed By: #### C DP, BMP #### [facility] [address] [place] [address] [employer]: Zayra Chapman MD WBC (Bld) [#/Vol] 9.3 10*3/uL Normal 3.5-11.0 [facility] Comment on above: Performed By: #### C DP, BMP #### [facility] [address] [place] [address] [employer]: Zayra Chapman MD Cult,Urineon 08-20-2023 Cult,Urine Specimen Description .CLEAN CATCH URINE Culture NO SIGNIFICANT GROWTH Report Status FINAL 08/20/2023 Normal [facility] Comment on above: Performed By: #### U [facility] #### [facility] [address] [place] [address] [employer]: Zayra Chapman MD Ultrasound - Officeon 2023 Radiology Study observation (narrative) [facility] HIV 1&2 AB/AG Screen (P24 AG )on 06-20-2023 HIV 1&2 AB/AG Negative [facility] Hemoglobin A1con 06-20-2023 HbA1c (Bld) [Mass fraction] 7.2 % Abnormal 4.0 - 6.0 % [facility] Interpretation and review of laboratory results Abnormal [facility] Hepatitis B surface antigeno n 06-20-2023 Hepatitis B Surface Antigen Negative [facility] No Panel Informationon 06-20 [facility] Rubella IGG immune statuson 06-20-2023 Rubella immune IgG immune [facility] Syphilis Total(Unknown Syphi lis Status)on 06-20-2023 Syphilis Non-Reactive [facility] Type and screenon 06-20-2023 Abo/Rh(D) Positive [facility] Ultrasound - Officeon 2023 [facility] CBC with Diffon 02-13-2023 Abs. Basophil 0.01 k/uL Normal 0.00-0.20 [facility] Comment on above: Performed By: #### L IPR, T4, GLYHGB, T3 #### [address] [id number] [employer]: Antoine Wilson MD #### CP, TSH, CDP, ZFAST #### [facility] [address] [place], [place] [phone] [employer]ator: Zayra Chapman MD Abs.Imm.Granulocyte 0.02 k/uL Normal 0.00-0.30 [facility] Comment on above: Performed By: #### L IPR, T4, GLYHGB, T3 #### [address] [id number] [employer]: Antoine Wilson MD #### CP, TSH, CDP, ZFAST #### [facility] [address] [place], [place] [phone] [employer]: Zayra Chapman MD Abs.Neutrophil (Seg) 4.27 k/uL Normal 2.5-7.0 [facility] Comment on above: Performed By: #### L IPR, T4, GLYHGB, T3 #### [address] [id number] [employer]: Antoine Wilson MD #### CP, TSH, CDP, ZFAST #### [facility] [address] [place], [place] [id number] [employer]: Zayra Chapman MD Basophils/100 WBC (Bld) 0 % Normal 0-[address] [facility] Comment on above: Performed By: #### L IPR, T4, GLYHGB, T3 #### [address] [id number] [employer]: Antoine Wilson MD #### CP, TSH, CDP, ZFAST #### [facility] [address] [place], [place] [phone] [employer]: Zayra Chapman MD Eosinophils (Bld) [#/Vol] 0.07 10*3/uL Normal 0.00-0.40 [facility] Comment on above: Performed By: #### L IPR, T4, GLYHGB, T3 #### [address] [id number] [employer]: Antoine Wilson MD #### CP, TSH, CDP, ZFAST #### [facility] [address] [place], [place] [id number] [employer]: Zayra Chapman MD Eosinophils/100 WBC (Bld) 1 % Normal 0-5 [facility] Comment on above: Performed By: #### L IPR, T4, GLYHGB, T3 #### [address] [id number] [employer]: Antoine Wilson MD #### CP, TSH, CDP, ZFAST #### [facility] [address] [place], [place] [phone] [employer]: Zayra Chapman MD Erythrocyte distribution width (RBC) [Ratio] 13.2 % Normal 12.1-15.2 [facility] Comment on above: Performed By: #### L IPR, T4, GLYHGB, T3 #### [address] [id number] [employer]: Antoine Wilson MD #### CP, TSH, CDP, ZFAST #### [facility] [address] [place], [place] [phone] [employer]: Zayra Chapman MD Hematocrit (Bld) [Volume fraction] 41.9 % Normal 36.0-46.0 [facility] Comment on above: Performed By: #### L IPR, T4, GLYHGB, T3 #### [address] [id number] [employer]: Antoine Wilson MD #### CP, TSH, CDP, ZFAST #### [facility] [address] [place], [place] [phone] [employer]ator: Zayra Chapman MD Hemoglobin (Bld) [Mass/Vol] 13.5 g/dL Normal 12.0-16.0 [facility] Comment on above: Performed By: #### L IPR, T4, GLYHGB, T3 #### [address] [id number] [employer]ator: Antoine Wilson MD #### CP, TSH, CDP, ZFAST #### [facility] [address] [place], [place] [phone] [employer]ator: Zayra Chapman MD Immature granulocytes/100 WBC (Bld) 0 % Normal 0-5 [facility] Comment on above: Performed By: #### L IPR, T4, GLYHGB, T3 #### [address] [phone] [employer]: Antoine Wilson MD #### CP, TSH, CDP, ZFAST #### [facility] [address] [place], [place] [phone] [employer]ator: Zayra Chapman MD Lymphocytes (Bld) [#/Vol] 1.14 10*3/uL Normal 1.00-4.80 [facility] Comment on above: Performed By: #### L IPR, T4, GLYHGB, T3 #### [address] [place], [place] [id number] [employer]: Antoine Wilson MD #### CP, TSH, CDP, ZFAST #### [facility] [address] [place], [place] [phone] [employer]: Zayra Chapman MD Lymphocytes/100 WBC (Bld) 20 % Normal 15-40 [facility] Comment on above: Performed By: #### L IPR, T4, GLYHGB, T3 #### [address] [id number] [employer]ator: Antoine Wilson MD #### CP, TSH, CDP, ZFAST #### [facility] [address] [place] [address] [employer]: Zayra Chapman MD MCH (RBC) [Entitic mass] 26.6 pg Normal 26.0-34.0 [facility] Comment on above: Performed By: #### L IPR, T4, GLYHGB, T3 #### [address] [id number] [employer]: Antoine Wilson MD #### CP, TSH, CDP, ZFAST #### [facility] [address] [place] [phone] [employer]ator: Zayra Chapman MD MCHC (RBC) [Mass/Vol] 32.2 g/dL Normal 31.0-37.0 [facility] Comment on above: Performed By: #### L IPR, T4, GLYHGB, T3 #### [address] [id number] [employer]ator: Antoine Wilson MD #### CP, TSH, CDP, ZFAST #### [facility] [address] [place] [address] [employer]: Zayra Chapman MD MCV (RBC) [Entitic vol] 82.6 fL Normal 80.0-100.[address] [facility] Comment on above: Performed By: #### L IPR, T4, GLYHGB, T3 #### [address] [id number] [employer]ator: Antoine Wilson MD #### CP, TSH, CDP, ZFAST #### [facility] [address] [place], [place] [phone] [employer]: Zayra Chapman MD Monocytes (Bld) [#/Vol] 0.30 10*3/uL Normal 0.00-1.00 [facility] Comment on above: Performed By: #### L IPR, T4, GLYHGB, T3 #### [address] [phone] [employer]ator: Antoine Wilson MD #### CP, TSH, CDP, ZFAST #### [facility] [address] [place], [place] [phone] [employer]ator: Zayra Chapman MD Monocytes/100 WBC (Bld) 5 % Normal 4-[address] [facility] Comment on above: Performed By: #### L IPR, T4, GLYHGB, T3 #### [address] [id number] [employer]ator: Antoine Wilson MD #### CP, TSH, CDP, ZFAST #### [facility] [address] [place], [place] 1897[address] [employer]ator: Zayra Chapman MD Neutrophil (Seg) 74 % Normal 47-75 [facility] Comment on above: Performed By: #### L IPR, T4, GLYHGB, T3 #### [address] [id number] [employer]ator: Antoine Wilson MD #### CP, TSH, CDP, ZFAST #### [facility] [address] [place] [address] [employer]ator: Zayra Chapman MD Platelet mean volume (Bld) [Entitic vol] 11.0 fL Normal 6.0-12.0 [facility] Comment on above: Performed By: #### L IPR, T4, GLYHGB, T3 #### [address] [id number] [employer]: Antoine Wilson MD #### CP, TSH, CDP, ZFAST #### [facility] [address] [place] [address] [employer]ator: Zayra Chapman MD Platelets (Bld) [#/Vol] 206 10*3/uL Normal 140-450 [facility] Comment on above: Performed By: #### L IPR, T4, GLYHGB, T3 #### [address] [id number] [employer]: Antoine Wilson MD #### CP, TSH, CDP, ZFAST #### [facility] [address] [place] [phone] [employer]ator: Zayra Chapman MD RBC (Bld) [#/Vol] 5.07 10*6/uL Normal 4.00-5.20 [facility] Comment on above: Performed By: #### L IPR, T4, GLYHGB, T3 #### [address] [id number] [employer]ator: Antoine Wilson MD #### CP, TSH, CDP, ZFAST #### [facility] [address] [place] [address] [employer]ator: Zayra Chapman MD WBC (Bld) [#/Vol] 5.8 10*3/uL Normal 3.5-11.0 [facility] Comment on above: Performed By: #### L IPR, T4, GLYHGB, T3 #### [address] [place] [address] [employer]ator: Antoine Wilson MD #### CP, TSH, CDP, ZFAST #### [facility] [address] [place], [place] [phone] [employer]ator: Zayra Chapman MD Comp Metabolic Profon 2022 Albumin [Mass/Vol] 4.3 g/dL Normal 3.5-5.2 [facility] Comment on above: Performed By: #### L IPR, T4, GLYHGB, T3 #### [facility] [address] [place] [address] [employer]ator: Antoine Wilson MD #### CP, TSH, CDP, ZFAST #### [facility] [address] [place], [place] [phone] [employer]ator: Zayra Chapman MD Alkaline Phos 127 U/L High 35-104 [facility] Comment on above: Performed By: #### L IPR, T4, GLYHGB, T3 #### [address] [place] [address] [employer]ator: Antoine Wilosn MD #### CP, TSH, CDP, ZFAST #### [facility] [address] [place], [place] [phone] [employer]ator: Zayra Chapman MD ALT [Catalytic activity/Vol] 51 U/L High 5-33 [facility] Comment on above: Performed By: #### L IPR, T4, GLYHGB, T3 #### [facility] [address] [place], [place] [phone] [employer]ator: Antoine Wilson MD #### CP, TSH, CDP, ZFAST #### [facility] [address] [place], [place] [phone] [employer]ator: Zayra Chpaman MD Anion gap [Moles/Vol] 12 mmol/L Normal 9-17 [facility] Comment on above: Performed By: #### L IPR, T4, GLYHGB, T3 #### [facility] [address] [place] [address] [employer]ator: Antoine Wilson MD #### CP, TSH, CDP, ZFAST #### [facility] [address] [place] [address] [employer]ator: Zayra Chapman MD AST [Catalytic activity/Vol] 31 U/L Normal <32 [facility] Comment on above: Performed By: #### L IPR, T4, GLYHGB, T3 #### [address] [id number] [employer]ator: Antoine Wilson MD #### CP, TSH, CDP, ZFAST #### [facility] [address] [place], [place] [phone] [employer]ator: Zayra Chapman MD Bilirubin [Mass/Vol] 0.3 mg/dL Normal 0.3-1.2 [facility] Comment on above: Performed By: #### L IPR, T4, GLYHGB, T3 #### [address] [id number] [employer]ator: Antoine Wilson MD #### CP, TSH, CDP, ZFAST #### [facility] [address] [place], [place] [phone] [employer]ator: Zayra Chapman MD BUN/CRE Ratio 16 Normal 9-20 [facility] Comment on above: Performed By: #### L IPR, T4, GLYHGB, T3 #### [address] [id number] [employer]ator: Antoine Wilson MD #### CP, TSH, CDP, ZFAST #### [facility] [address] [place], [place] 5446190 [employer]ator: Zayra Chapman MD Calcium [Mass/Vol] 9.0 mg/dL Normal 8.6-10.4 [facility] Comment on above: Performed By: #### L IPR, T4, GLYHGB, T3 #### [address] [id number] [employer]ator: Antoine Wilson MD #### CP, TSH, CDP, ZFAST #### [facility] [address] [place], [place] [phone] [employer]ator: Zayra Chapman MD Chloride [Moles/Vol] 100 mmol/L Normal 98-107 [facility] Comment on above: Performed By: #### L IPR, T4, GLYHGB, T3 #### [address] [id number] [employer]ator: Antoine Wilson MD #### CP, TSH, CDP, ZFAST #### [facility] [address] [place] [phone] [employer]ator: Zayra Chapman MD CO2 [Moles/Vol] 24 mmol/L Normal 20-31 [facility] Comment on above: Performed By: #### L IPR, T4, GLYHGB, T3 #### [address] [id number] [employer]ator: Antoine Wilson MD #### CP, TSH, CDP, ZFAST #### [facility] [address] [place] [phone] [employer]ator: Zayra Chapman MD Creatinine [Mass/Vol] 0.7 mg/dL Normal 0.5-0.9 [facility] Comment on above: Performed By: #### L IPR, T4, GLYHGB, T3 #### [address] [id number] [employer]ator: Antoine Wilson MD #### CP, TSH, CDP, ZFAST #### [facility] [address] [place] [phone] [employer]ator: Zayra Chapman MD GFR/1.73 sq M.predicted among non-blacks MDRD (S/P/Bld) [Vol rate/Area] mL/min/{1.73_m2} Normal >60 [facility] Comment on above: Result Comment: These results [...] #### L IPR, T4, GLYHGB, T3 #### [address] [id number] [employer]ator: Antoine Wilson MD #### CP, TSH, CDP, ZFAST #### [facility] [address] [facility] [place] [address] [employer]ator: Zayra Chapman MD Glucose [Mass/Vol] 367 mg/dL High 70-99 [facility] Comment on above: Performed By: #### L IPR, T4, GLYHGB, T3 #### [address] [phone] [employer]ator: Antoine Wilson MD #### CP, TSH, CDP, ZFAST #### [facility] [address] [facility] [place] [address] [employer]ator: Zayra Chapman MD Potassium [Moles/Vol] 4.3 mmol/L Normal 3.7-5.3 [facility] Comment on above: Performed By: #### L IPR, T4, GLYHGB, T3 #### [address] [id number] [employer]ator: Antoine Wilson MD #### CP, TSH, CDP, ZFAST #### [facility] [address] [place], [place] [phone] [employer]ator: Zayra Chapman MD Protein [Mass/Vol] 7.0 g/dL Normal 6.4-8.3 [facility] Comment on above: Performed By: #### L IPR, T4, GLYHGB, T3 #### [address] [address] [employer]ator: Antoine Wilson MD #### CP, TSH, CDP, ZFAST #### [facility] [address] [place], [place] [phone] [employer]ator: Zayra Chapman MD Sodium [Moles/Vol] 136 mmol/L Normal 135-144 [facility] Comment on above: Performed By: #### L IPR, T4, GLYHGB, T3 #### [address] [address] [employer]ator: Antoine Wilson MD #### CP, TSH, CDP, ZFAST #### [facility] [address] [place], [place] [phone] [employer]ator: Zayra Chapman MD Urea nitrogen [Mass/Vol] 11 mg/dL Normal 6-20 [facility] Comment on above: Performed By: #### L IPR, T4, GLYHGB, T3 #### [address] [address] [employer]ator: Antoine Wilson MD #### CP, TSH, CDP, ZFAST #### [facility] [address] [place], [place] [phone] [employer]ator: Zayra Chapman MD Hemoglobin A1Con 02-13-2023 Glucose [Mass/Vol] 280 mg/dL Normal [facility] Comment on above: Result Comment: The ADA and AACC recommend providing the estimated average glucose result to permit better patient understanding of their HBA1c result. Performed By: #### U MICAO, CG, UA #### [facility] [address] [place] [address] [employer]ator: Zayra Chapman MD HbA1c (Bld) [Mass fraction] 11.4 % High 4.0-6.0 [facility] Comment on above: Performed By: #### Julien DAVIDSON [facility], UA #### [facility] [address] [place], [place] [phone] [employer]ator: Zayra Chapman MD Lipid Profileon 02-13-2023 Cholesterol [Mass/Vol] 215 mg/dL High 0-199 [facility] Comment on above: Result Comment: Cholesterol Guidelines: <200 Desirable 200-240 Borderline >240 Undesirable Performed By: #### Julien DAVIDSON [facility], UA #### [facility] [address] [place] [address] [employer]ator: Zayra Chapman MD Cholesterol in HDL [Mass/Vol] 27 mg/dL Low >40 [facility] Comment on above: Result Comment: HDL Guidelines: <40 Undesirable 40-59 Borderline >59 Desirable Performed By: #### Julien DAVIDSON [facility], UA #### [facility] [address] [place] [address] [employer]ator: Zayra Chapman MD Cholesterol in LDL [Mass/Vol] 130 mg/dL High 0-100 [facility] Comment on above: Result Comment: LDL Guidelines: <100 Desirable 100-129 Near to/above Desirable 130-159 Borderline >159 Undesirable Direct (measured) LDL and calculated LDL are not interchangeable tests. Performed By: #### Julien DAVIDSON [facility], UA #### [facility] [address] [place], [place] [phone] [employer]ator: Zayra Chapman MD Cholesterol in VLDL [Mass/Vol] 58 mg/dL Normal [facility] Comment on above: Performed By: #### Julien DAVIDSON [facility], UA #### [facility] [address] [place] [address] [employer]ator: Zayra Chapman MD Cholesterol.total/Otilia sterol in HDL [Mass ratio] 8.0 {ratio} Normal [facility] Comment on above: Performed By: #### U STUART [facility], UA #### [facility] [address] [place] [address] [employer]ator: Zayra Chapman MD Triglyceride [Mass/Vol] 291 mg/dL High 0-[address] [facility] Comment on above: Result Comment: Triglyceride Guidelines: <150 Desirable 150-199 Borderline 200-499 High >499 Very high Based on AHA Guidelines for fasting triglyceride, February 2012. Performed By: #### Julien DAVIDSON [facility], UA #### [facility] [address] [place] [address] [employer]ator: Zayra Chapman MD Patient fasting?on 3 Patient fasting? YES Normal [facility] Comment on above: Performed By: #### L IPR, T4, GLYHGB, T3 #### [facility] [address] [place], [place] [phone] [employer]ator: Antoine Wilson MD #### CP, TSH, CDP, ZFAST #### [facility] [address] [place] [address] [employer]ator: Zayra Chapman MD Thyroid Stim. Horm.on 2022 Thyroid Stim. Horm. 1.43 uIU/mL Normal 0.30-5.00 [facility] Comment on above: Performed By: #### U STUART [facility], UA #### [facility] [address] [place] [address] [employer]ator: Zayra Chapman MD Thyroxine T4on 02-13-2023 T4 [Mass/Vol] 5.9 ug/dL Normal 4.5-11.7 [facility] Comment on above: Performed By: #### U STUART [facility], UA #### [facility] [address] [place] [address] [employer]ator: Zayra Chapman MD Triiodothyronine T3on 2022 Triiodothyronine T3 109 ng/dL Normal 80-200 [facility] Comment on above: Performed By: #### U [facility] #### [facility] [address] [place] [address] [employer]ator: Zayra Chapman MD Chlamydia/GC DNA, Uron 12-23 Chlamydia Probe, Ur Negative Normal NEG [facility] Comment on above: Result Comment: CHLA MYDIA [...] target. Performed By: #### U CGP #### [address] [place], [place] [id number] [employer]ator: Antoine Wilson MD Gonorrhea Probe, Ur Negative Normal NEG [facility] Comment on above: Result Comment: NEIS SERIA [...] target. Performed By: #### U CGP #### [facility] [address] [place], [place] [id number] [employer]ator: Antoine Wilson MD Cult,Urineon 12-21-2022 Cult,Urine Specimen [...] Tobramycin 8 INTERMEDIATE Trimethoprim/Sulfa >=320 RESISTANT Resistant [facility] Comment on above: Performed By: #### U RC #### [facility] [address] [place], [place] [phone] [employer]ator: Antoine Wilson MD [facility] [address] [place] [address] [employer]ator: Zayra Chapman MD HCG, ,Urineon 12-19 Beta HCG ( test) Ql (U) Negative Normal NEG [facility] Comment on above: Performed By: #### U MICAO, CG, UA #### [facility] [address] [place] [address] [employer]ator: Zayra Chapman MD Microscopic Urinalysison - [facility] Bacteria LM Ql (Urine sed) 4+ Abnormal None [facility] Epithelial cells LM.HPF (Urine sed) [#/Area] 2 TO 5 /HPF [facility] RBC LM.HPF (Urine sed) [#/Area] 2 TO 5 [facility] WBC LM.HPF (Urine sed) [#/Area] 50 TO 100 0 /HPF [facility] Yeast LM Ql (Urine sed) OCCASIONAL Abnormal None B ON [facility] No Panel Informationon 12-19 Interpretation and review of laboratory results Abnormal [facility] , Urineon 3 HCG ( test) Ql (U) Negative NEGATIVE [facility] Urinalysison 12-19-2022 Bilirubin Ql (U) Negative NEGATIVE [facility] Glucose Test strip (U) [Mass/Vol] 1000 mg/dL Abnormal NEGATIVE mg/dL [facility] Hemoglobin Auto test strip Ql (U) 1+ Abnormal NEGATIVE [facility] Ketones (U) [Mass/Vol] Negative NEGAT [place] mg/dL [facility] Nitrite Ql (U) Positive Abnormal NEGATIVE [facility] pH (U) 6.0 [pH] 5.0 - 8.0 [facility] Protein (U) [Mass/Vol] 1+ Abnormal NEGAT [place] mg/dL [facility] Specific gravity (U) [Rel density] 1.010 1.005 - 1.030 [facility] Urobilinogen Qn (U) Normal 0.0 - 1. 0 EU/dL [facility] Urinalysis, Routineon 2022 Bilirubin, SemiQt,Ur Negative Normal NEG [facility] Comment on above: Performed By: #### U STUART, [facility], UA #### [facility] [address] [place] [address] [employer]ator: Zayra Chapman MD Blood, Urine 1+ Abnormal NEG [facility] Comment on above: Performed By: #### U SAMIRAO, [facility], UA #### [facility] [address] [place] [address] [employer]ator: Zayra Chapman MD Clarity (U) Cloudy Abnormal CLEAR [facility] Comment on above: Performed By: #### U STUART, [facility], UA #### [facility] [address] [facility] [place] [address] [employer]ator: Zayra Chapman MD Color (U) Yellow Normal YEL [facility] Comment on above: Performed By: #### U MICAO, [facility], UA #### [facility] [address] [facility] [place] [address] P[employer] Fabricator: Zayra Chapman MD Comment Normal [facility] Comment on above: Performed By: #### U MICAO, [facility], UA #### [facility] [address] [place] [address] [employer]ator: Zayra Chapman MD Glucose Ql (U) 1000 mg/dL Abnormal NEG [facility] Comment on above: Performed By: #### U STUART [facility], UA #### [facility] [address] [place] [address] [employer]ator: Zayra Chapman MD Ketones Ql (U) Negative Normal NEG [facility] Comment on above: Performed By: #### U STUART [facility], UA #### [facility] [address] [place] [address] [employer]ator: Zayra Chapman MD Leukocyte esterase Test strip Ql (U) 3+ Abnormal NEG [facility] Comment on above: Performed By: #### Julien DAVIDSON [facility], UA #### [facility] [address] [place], [place] [phone] [employer]ator: Zayra Chapman MD Nitrite,Ur Positive Abnormal NEG [facility] Comment on above: Performed By: #### Julien DAVIDSON [facility], UA #### [facility] [address] [place] [address] [employer]ator: Zayra Chapman MD PH,Ur 6.0 Normal 5.0-8.0 [facility] Comment on above: Performed By: #### U STUART [facility], UA #### [facility] [address] [place] [address] Pewter Fabricator: Zayra Chapman MD Protein Ql (U) 1+ mg/dL Abnormal NEG [facility] Comment on above: Performed By: #### U [facility], UA #### [facility] [address] [place], [place] [id number] Pewter Fabricator: Zayra Chapman MD Spec. [place],Ur 1.010 Normal 1.005-1.030 [facility] Comment on above: Performed By: #### U MICAO, UHCG, UA #### [facility] [address] [place] [address] Pewter Fabricator: Zayra Chapman MD Urobilinogen,Ur Normal Normal 0.0-1.0 [facility] Comment on above: Performed By: #### U MICAO, CG, UA #### [facility] [address] [place] [address] Pewter Fabricator: Zayra Chapman MD Urinalysis,Microon 3 ----- Normal [facility] Comment on above: Performed By: #### U SAMIRAO, [facility], UA #### [facility] [address] [place] [address] Pewter Fabricator: Zayra Chapman MD Bacteria 4+ Abnormal NONE [facility] Comment on above: Performed By: #### U MICAO, [facility], UA #### [facility] [address] [place] [address] Pewter Fabricator: Zayra Chapman MD Epithelial cells LM Ql (Urine sed) 2 TO 5 Normal [facility] Comment on above: Performed By: #### U [facility]ICAO, [facility], [facility] #### [facility] [address] [place] [address] Pewter Fabricator: Zayra Chapman MD Urine RBC's 2 TO 5 Normal 0-2 [facility] Comment on above: Performed By: #### U MICAO, CG, UA #### [facility] [address] [place] [address] Pewter Fabricator: Zayra Chapman MD Urine WBC's 50 TO 100 Normal 0 [facility] Comment on above: Performed By: #### U MICAO, CG, UA #### [facility] [address] [place], [place] [id number] Pewter Fabricator: Zayra Chapman MD Yeast OCCASIONAL Abnormal NONE [facility] Comment on above: Performed By: #### U SAMIRAO, [facility], UA #### [facility] [address] [place] [address] Pewter Fabricator: Zayra Chapman MD Auto Diffon 12-06-2022 Basophils/100 WBC (Bld) 0.8 % Normal 0.0-2.0 [facility] Comment on above: Order Comment: Order Added by Discern Expert. Performed By: #### 2 042531, 3607651, 9461353, [id number] #### [facility] [address] [place] [address] Basophils/Leukocytes Auto (Bld) [Pure # fraction] 0.1 E9/L Normal 0.0-0.2 [facility] Comment on above: Order Comment: Order Added by Discern Expert. Performed By: #### 2 389703, 6702417, 6932280, 58225584 #### [facility] [address] [place] [address] Eosinophils/100 WBC (Bld) 0.3 % Normal 0.0-8.0 [facility] Comment on above: Order Comment: Order Added by Discern Expert. Performed By: #### 2 649754, 1939945, 7691453, 95469402 #### [facility] [address] [place] [address] Eosinophils/Leukocytes Auto (Bld) [Pure # fraction] 0.0 E9/L Normal 0.0-0.5 [facility] Comment on above: Order Comment: Order Added by Discern Expert. Performed By: #### 2 129614, 8505721, 2493481, [id number] #### [facility] [address] [place] [address] Lymphocytes/100 WBC (Bld) 12.5 % Low 14.0-50.0 [facility] Comment on above: Order Comment: Order Added by Discern Expert. Performed By: #### 2 647980, 6046488, 2823899, 90788908 #### [facility] [address] [place] [address] Lymphocytes/Leukocytes Auto (Bld) [Pure # fraction] 1.3 E9/L Normal 1.0-4.0 [facility] Comment on above: Order Comment: Order Added by Discern Expert. Performed By: #### 2 109166, 8374968, 2731935, 61958526 #### [facility] [address] [place] [address] Monocytes/100 WBC (Bld) 4.5 % Normal 4.0-14.0 [place] Comment on above: Order Comment: Order Added by Discern Expert. Performed By: #### 2 568855, 9931886, 7730448, 98239659 #### [facility] [address] [place] [address] Monocytes/Leukocytes Auto (Bld) [Pure # fraction] 0.5 E9/L Normal 0.2-1.0 [facility] Comment on above: Order Comment: Order Added by Discern Expert. Performed By: #### 2 455036, 3677437, 2621602, 19986509 #### [facility] [address] [place] [address] Neutrophils/100 WBC (Bld) 81.9 % High 36.0-75.0 [facility] Comment on above: Order Comment: Order Added by Discern Expert. Performed By: #### 2 634371, 8675572, 9226636, 00790482 #### [facility] [address] [place] [address] Neutrophils/Leukocytes Auto (Bld) [Pure # fraction] 8.8 E9/L High 2.0-7.5 [facility] Comment on above: Order Comment: Order Added by Discern Expert. Performed By: #### 2 537879, 8775888, 3293686, 27256988 #### [facility] [address] [place] [address] CBC w/ Auto Diffon 3 Erythrocyte distribution width (RBC) [Ratio] 13.9 % Normal 10.9-14.2 [facility] Comment on above: Performed By: #### 2 620036, 2089529, 1157831, 31780231 #### [facility] [address] [place] [address] Hematocrit (Bld) [Volume fraction] 42.7 % Normal 34.0-46.0 [facility] Comment on above: Performed By: #### 2 098088, 1163298, 8286770, 76596555 #### [facility] [address] [place] [address] Hemoglobin (Bld) [Mass/Vol] 14.2 g/dL Normal 12.0-16.0 [facility] Comment on above: Performed By: #### 2 571995, 5698718, 6452115, 07875807 #### [facility] [address] [place] [address] MCH (RBC) [Entitic mass] 26.8 pg Low 27.0-34.0 [facility] Comment on above: Performed By: #### 2 917382, 2075374, 2634225, 51087943 #### [facility] [address] [place] [address] MCHC (RBC) [Mass/Vol] 33.2 g/dL Normal 31.4-36.0 [facility] Comment on above: Performed By: #### 2 083050, 2797846, 2258246, 64224485 #### [facility] [address] [place] [address] MCV (RBC) [Entitic vol] 80.8 fL Normal 80.0-100.0 [facility] Comment on above: Performed By: #### 2 890335, 9252433, 9071303, 88694875 #### [facility] [address] [place] [address] Platelet mean volume (Bld) [Entitic vol] 9.8 fL Normal 6.4-10.8 [facility] Comment on above: Performed By: #### 2 426547, 2682305, 9427827, 35196869 #### [facility] [address] [place] [address] Platelets (Bld) [#/Vol] 252.0 E9/L Normal 150.0-500.0 [facility] Comment on above: Performed By: #### 2 016970, 7853178, 3960947, 58244180 #### [facility] [address] [place] [address] RBC (Bld) [#/Vol] 5.3 E12/L Normal 4.3-5.9 [facility] Comment on above: Performed By: #### 2 437677, 6060766, 6630564, 21583685 #### [facility] [address] [place] [address] WBC corrected for nucl RBC Auto (Bld) [#/Vol] 10.7 E9/L Normal 4.0-11.[address] [facility] Comment on above: Performed By: #### 2 488578, 2882429, 1110575, 49875181 #### [facility] [address] [place] [address] CHEMISTRYOrdered By: SYSTEM SYSTEM on 12-06-2022 Albumin [Mass/Vol] 4.2 g/dL Normal 3.3 - 5.0 gm/dL [facility] Albumin/Globulin [Mass ratio] 1.2 {ratio} Normal 1.1 - 2.2 [facility] ALP [Catalytic activity/Vol] 117 [iU]/d High 21 - 98 Int._Unit/L [facility] ALT No additional P-5'-P [Catalytic activity/Vol] 78 [iU]/d High 6 - 46 Int._Unit/L [facility] Amphetamines Screen method >1000 ng/mL Ql (U) Negative (12/06/22 1:41 PM) Normal Negative [facility] Anion gap [Moles/Vol] 15 mmol/L Normal 6 - 16 mEq/L [facility] AST [Catalytic activity/Vol] 68 [iU]/d High 5 - 43 Int._Unit/L [facility] Barbiturates Screen Ql (U) Negative [...] Read Back For Confirmation at: 12/06/2022 14:42:33 Bilirubin [Mass/Vol] 0.7 mg/dL Normal 0.0 - 1 .1 mg/dL [facility] Calcium [Mass/Vol] 9.6 mg/dL Normal 8.9 - 11. 1 mg/dL [facility] Chloride [Moles/Vol] 104 mmol/L Normal 101 - 1 11 mmol/L [facility] CO2 [Moles/Vol] 22 mmol/L Normal 21 - 31 mmol/L [facility] Cocaine Ql (U) Negative (12/06/22 1:41 PM) Normal Negative [facility] Creatinine [Mass/Vol] 0.8 mg/dL Normal 0.5 - 1.3 mg/dL [facility] Ethanol [Mass/Vol] mg/dL Normal <=7mg/dL [facility] GFR/1.73 sq M.predicted among non-blacks MDRD (S/P/Bld) [Vol rate/Area] 105 mL/min/1.73 m2 Normal >=59mL/min/ 1.73 m2 [facility] Chem S Globulin (S) [Mass/Vol] 3.6 g/dL Normal 1.4 - 4.0 gm/dL [facility] Glucose [Mass/Vol] 244 mg/dL High 55 - 199 mg/dL [facility] Opiates Screen Ql (U) Negative (12/06/22 1:41 PM) Normal Negative [facility] Phencyclidine Screen method >25 ng/mL Ql (U) Negative (12/06/22 1:41 PM) Normal Negative [facility] Potassium [Moles/Vol] 4.3 mmol/L Normal 3.5 - 5.3 mmol/L [facility] Protein [Mass/Vol] 7.8 g/dL Normal 6.0 - 7.8 gm/dL [facility] Sodium [Moles/Vol] 137 mmol/L Normal 135 - 145 mmol/L [facility] Tetrahydrocannabinol Screen method >50 ng/mL Ql (U) Positive 2 *ABN* (12/06/22 1:41 PM) Invalid Interpretation Code Negative [facility] Comment on above: Result Comment: Crit ical Result verified by repeat analysis\No confirmation requested by Physican\Unconfirmed by alternate method\Critical Result UD_THC:POS Called to YOLY HENLEY AT ER by JOEL STEVENS And Read Back For Confirmation at: 12/06/2022 14:42:33 Urea nitrogen [Mass/Vol] 12 mg/dL Normal 5 - 21 mg/dL [facility] Urea nitrogen/Creatinine [Mass ratio] 15 mg/mg Normal 10 - 20 [facility] CMPon 12-06-2022 Albumin [Mass/Vol] 4.2 g/dL Normal 3.3-5.0 [facility] Comment on above: Performed By: #### 2 356031, 8699149, 6026717, 46575899 #### [facility] [address] [place] [address] Albumin/Globulin (S) [Mass conc ratio] 1.2 Normal 1.1-2.2 [facility] Comment on above: Performed By: #### 2 934041, 3454043, 1194625, 80722452 #### [facility] [address] [place] [address] ALP [Catalytic activity/Vol] 117 Int._Unit/L High 21-98 [facility] Comment on above: Performed By: #### 2 062111, 8227699, 7637455, 02035200 #### [facility] [address] [place] [address] ALT No additional P-5'-P [Catalytic activity/Vol] 78 Int._Unit/L High 6-46 [facility] Comment on above: Performed By: #### 2 759063, 0322281, 7183410, 90130440 #### [facility] [address] [place] [address] Anion gap [Moles/Vol] 15 mmol/L Normal 6-16 [facility] Comment on above: Performed By: #### 2 020325, 2461201, 0047526, 96868276 #### [facility] [address] [place] [address] AST [Catalytic activity/Vol] 68 Int._Unit/L High 5-43 [facility] Comment on above: Performed By: #### 2 500569, 9217644, 4054594, 52800986 #### [facility] [address] [place] [address] Bilirubin [Mass/Vol] 0.7 mg/dL Normal 0.0-1.1 [facility] Comment on above: Performed By: #### 2 776150, 9178126, 1382431, 22002418 #### [facility] [address] [place] [address] Calcium [Mass/Vol] 9.6 mg/dL Normal 8.9-11.1 [facility] Comment on above: Performed By: #### 2 159546, 2600244, 0284859, 50318829 #### [facility] [address] [place] [address] Chloride [Moles/Vol] 104 mmol/L Normal 101-111 [facility] Comment on above: Performed By: #### 2 150866, 4329874, 6753392, 92752701 #### [facility] [address] [place] [address] CO2 [Moles/Vol] 22 mmol/L Normal 21-[address] [facility] Comment on above: Performed By: #### 2 755008, 0977119, 2155265, 99867356 #### [facility] [address] [place] [address] Creatinine [Mass/Vol] 0.8 mg/dL Normal 0.5-1.3 [facility] Comment on above: Performed By: #### 2 416585, 3353551, 7883330, 05016001 #### [facility] [address] [place] [address] Globulin (S) [Mass/Vol] 3.6 g/dL Normal 1.4-4.0 [place] Comment on above: Performed By: #### 2 567033, 5438177, 6503388, 66136854 #### [facility] [address] [place] [address] Glucose [Mass/Vol] 244 mg/dL High 55-199 [facility] Comment on above: Result Comment: If t his glucose result represents a fasting glucose, interpretation should refer to the following reference range: 55-99 mg/dL Performed By: #### 2 772852, 2774412, 2933690, 60295971 #### [facility] [address] [place] [address] Potassium [Moles/Vol] 4.3 mmol/L Normal 3.5-5.3 [facility] Comment on above: Performed By: #### 2 915427, 0699363, 6739471, 84434628 #### [facility] [address] [place] [address] Protein [Mass/Vol] 7.8 g/dL Normal 6.0-7.8 [facility] Comment on above: Performed By: #### 2 778852, 5449575, 2518903, 90810145 #### [facility] [address] [place] [address] Sodium [Moles/Vol] 137 mmol/L Normal 135-145 [facility] Comment on above: Performed By: #### 2 548527, 7415236, 3878226, 17030669 #### [facility] [address] [place] [address] Urea nitrogen [Mass/Vol] 12 mg/dL Normal 5-21 [facility] Comment on above: Performed By: #### 2 138119, 2117386, 5020873, 46408686 #### [facility] [address] [place] [address] Urea nitrogen/Creatinine [Mass ratio] 15 No Units Normal 10-20 [facility] Comment on above: Performed By: #### 2 160176, 8944339, 6988879, 82198589 #### [facility] [address] [place] [address] Consent for Treatmenton 080 Consent for Treatment [id number] .[id number]:127 Normal [facility] Discharge Instructionson Discharge Instructions [id number] 1.00CD:127 Normal [facility] ED Clinical Summaryon 2022 ED Clinical Summary [address] [address] ED Clinical Summary Person Information Name: RIRI DEMPSEY/[facility] Age: 27 Years : 1995 Sex: Female Language: Nigerien PCP: GAYE BARROS Marital Status: Single Visit [...] 12/06/2022 16:43:40 12/06/2022 16:43:40 ADDRESS: [address] [facility] [id number] [facility] DOC NOTES: MEDICAL INFORMATION: Prescriptions Given: Medications to Continue with No Changes Other Medications venlafaxine (Effexor XR 150 mg Cap-ER) PATIENT EDUCATION INFORMATION: Instructions: Suicidal Feelings: How to Help Yourself Follow up: With: Address: When: [facility] In 3 days 12/09/2022 Comments: Follow safety plan. Return to the emergency department with any worsening symptoms. With: Address: When: GAYE JOSUE [address] [facility] [place] [address] [facility] (1) In 3 days 12/09/2022 Comments: Call the [...] in 1 month. 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 Return to the emergency department with any worsening symptoms. GAYE LAUREENLEE In 3 days 12/09/2022 EDT [address] [place] [address] [facility] (1) Additional Instructions: Call the [...] Known [employer] (more content not included)... Normal [facility] Comment on above: Result Comment: [...] (911 in the [place] ? Call the [facility] services helpline (211 in the [place] ? Call or text a suicide hotline to speak with a trained counselor. The following suicide hotlines are available in the [place]: ? 9-296-807-TALK ( or 809 in the [place] ? 7-070-EIIKLPD ( ). ? Text 098069. This is the Crisis Text Line in the [place] ? . This is a hotline for [place] speakers. ? . This is a hotline for TTY users. ? 2-269-5-U-YASHIRA ( ). This is a hotline for [...] anyone or being with other people. ? Fzge-yx-quwd conversation is best to help them understand [...] and a mental health checkup. ? Take rabf-hvz-jtafozw and prescription medicines only as told by [...] will hel (more content not included)... Normal [facility] ED Patient Summaryon 023 ED Patient Summary [place] [id number] Patient Discharge Instructions Person Information Name: RIRI DEMPSEY Age: 27 Years Arrival Date: 12/06/2022 13:19:47 Discharge Diagnosis: Situational stress Primary Care Physician: GAYE BARROS Provider Information Primary Provider: Graham Choe DO [facility] Director:None The exam and treatment you received in the Emergency Department were for an urgent problem and are not intended as complete care. It is important that you follow up with a doctor, nurse practitioner, or physician?s financial assistant for ongoing care. If your symptoms become worse or you do not improve as expected and you are unable to reach your usual health care provider, you should return to the Emergency Department. We are available 24 hours a day. RIRI DEMPSEY has been given the following list of patient education materials, prescriptions and follow-up instructions: Follow-up Instructions: With: Address: When: [facility] In 3 days 12/09/2022 Comments: Follow safety plan. Return to the emergency department with any worsening symptoms. With: Address: When: GAYE JOSUE [address] [place] [id number] [facility] () In 3 days 12/09/2022 [...] opioids can be used to help relieve hhnhjsiw-dn-nnnhfc pain and are often prescribed following a [...] and katja (more content not included)... Normal [facility] Ethanolon 12-06-2022 Ethanol [Mass/Vol] mg/dL Normal <=7 [facility] Comment on above: Performed By: #### 2 655111 ####[facility] [address] [place] [address] HEMATOLOGYOrdered By: SYSTEM SYSTEM on 12-06-2022 Basophils/100 [...] 10.7 E9/L Normal 4.0 - 11.0 E9/L [facility] HemeAutoSS Progress Note-Nurseon 2022 Progress Note-Nurse [facility] called to clear patient- instructed safety plan in prog. 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 conversation with [employer] at time of arrival Normal [facility] SEROLOGYOrdered By: Antonio Stevens on 12-06-2022 HCG.beta subunit (U) [Moles/Vol] Negative Normal [facility] Sero U BetaHcg Qualon 12-06-2022 HCG.beta subunit (U) [Moles/Vol] Negative Normal [facility] Comment on above: Performed By: #### 2 [id number] #### [facility] [address] [place] [address] U Drug Screenon 12-06-2022 Amphetamines Screen method >1000 ng/mL Ql (U) Negative Normal Negative [facility] Comment on above: Result Comment: Nega tive Cutoff: <1000 ng/mL Performed By: #### 2 085587 ####[place] [address] [place] [address] Barbiturates Screen Ql (U) Negative Normal Negative [facility] Comment on above: Result Comment: Nega tive Cutoff: <200 ng/mL Performed By: #### 2 133385 ####[address] [address] Benzodiazepines Ql (U) Positive Abnormal Negative [facility] Comment on above: Result Comment: Crit ical Result verified by repeat analysis\No confirmation requested by Physican\Unconfirmed by alternate method\Critical Result UD_BENZ:POS Called to YOLY HENLEY AT ER by JOEL STEVENS And Read Back For Confirmation at: 12/06/2022 14:42:33 Negative Cutoff: <200 ng/mL Performed By: #### 2 515689 ####[address] [address] Cocaine Ql (U) Negative Normal Negative [facility] Comment on above: Result Comment: Nega tive Cutoff: <300 ng/mL Performed By: #### 2 092236 ####[address] [address] Opiates Screen Ql (U) Negative Normal Negative [facility] Comment on above: Result Comment: Nega tive Cutoff: <300 ng/mL Performed By: #### 2 073863 ####[address] [address] Phencyclidine Screen method >25 ng/mL Ql (U) Negative Normal Negative [facility] Comment on above: Result Comment: Nega tive Cutoff: <25 ng/mL These drug screen results are to be used for medical (i.e., treatment) purposes only. Unconfirmed drug screening results must not be used for non-medical purposes (e.g., employment testing, legal testing). Performed By: #### 2 241635 ####[address] [address] Tetrahydrocannabinol Screen method >50 ng/mL Ql (U) Positive Abnormal Negative [facility] Comment on above: Result Comment: Crit ical Result verified by repeat analysis\No confirmation requested by Physican\Unconfirmed by alternate method\Critical Result UD_THC:POS Called to YOLY HENLEY AT ER by JOEL STEVNES And Read Back For Confirmation at: 12/06/2022 14:42:33 Negative Cutoff: <50 ng/mL Performed By: #### 2 229035 ####[facility] [address] [place] [address] eGFRon 12-06-2022 GFR/1.73 sq M.predicted among non-blacks MDRD (S/P/Bld) [Vol rate/Area] 105 mL/min/1.73 m2 Normal >=59 [facility] Comment on above: Order Comment: Order added by Discern Expert. Result Comment: Gift Consultant dayanna kidney disease could be indicated at eGFR's of less than 60 mL/min/1.73m2. Kidney failure is indicated at less than 15 mL/min/1.73m2. Performed By: #### 2 534697, 2539223, 1098032, [id number] ####[facility] [address] [place] [address] Basic Metabolic Panelon 06-05 Anion gap [Moles/Vol] 11 mmol/L 9 - 17 mmol/L [employer] Calcium [Mass/Vol] 9.5 mg/dL 8.6 - 10. 4 mg/dL [employer] Chloride [Moles/Vol] 103 mmol/L 98 - 10 7 mmol/L [employer] CO2 [Moles/Vol] 27 mmol/L 20 - 31 mmol/L [employer] Creatinine [Mass/Vol] 0.57 mg/dL 0.50 - 0.90 mg/dL [employer] GFR/1.73 sq M.predicted MDRD (S/P/Bld) [Vol rate/Area] - PINF [employer] Comment on above: These results are not [...] 154 mg/dL High 70 - 99 mg/dL [facility] Potassium [Moles/Vol] 4.2 mmol/L 3.7 - 5.3 mmol/L [facility] Sodium [Moles/Vol] 141 mmol/L 135 - 144 mmol/L [facility] Urea nitrogen [Mass/Vol] 12 mg/dL 6 - 20 mg/dL [facility] Urea nitrogen/Creatinine (Bld) [Mass ratio] 21 High 9 - 20 [facility] CBC with Auto Differentialon 06-16-2022 Absolute Eos # 0.10 [place] [facility] Absolute Lymph # 1.90 [facility] Absolute Carter # 0.40 [facility] RS [facility] Basophils (Bld) [#/Vol] 0.00 10*3/uL [facility] Basophils/100 WBC (Bld) 1 % 0 - 2 % B ON [facility] Differential Type YES [facility] Eosinophils/100 WBC (Bld) 1 % 0 - 5 % [facility] Hematocrit (Bld) [Volume fraction] 40.3 % 36 - 46 % [facility] Hemoglobin (Bld) [Mass/Vol] 13.0 g/dL 12.0 - 16.0 g/dL [facility] Lymphocytes/100 WBC (Bld) 23 % 15 - 40 % [facility] MCH (RBC) [Entitic mass] 27.2 pg 26 - 34 pg [facility] MCHC (RBC) [Mass/Vol] 32.4 g/dL 31 - 3 7 g/dL [facility] MCV (RBC) [Entitic vol] 84.1 fL 80 - 100 fL [facility] Monocytes/100 WBC (Bld) 5 % 4 - 8 % B ON [facility] Platelet distribution width (Bld) [Ratio] 13.9 % 12.1 - 15.2 % [facility] Platelets (Bld) [#/Vol] 225 10*3/uL [facility] RBC (Bld) [#/Vol] 4.79 10*6/uL 4.0 - 5.2 m/uL [facility] Segmented neutrophils/100 WBC (Bld) 70 % 47 - 75 % [facility] Segs Absolute 5.70 [facility] WBC (Bld) [#/Vol] 8.2 10*3/uL JULIANO LUGO [facility] CT HEAD WO CONTRASTon 2022 Radiology Study observation (narrative) JULIANO PADILLA [facility] Work Phone: No acute intracranial abnormality. FOLLOW-UP: Follow-up as clinically indicated. [facility] EXAM: CT HEAD WO CONTRAST 06/16/2022 2:34 AM EST [facility] CLINICAL STATEMENT: Has a code [...] orbits and the paranasal sinuses are normal. [facility] Trang Mcgregor MD - 06/16/2022 EXAM: CT HEAD WO CONTRAST 06/16/2022 2:34 AM EST [facility] CLINICAL STATEMENT: Has a code [...] intracranial abnormality. FOLLOW-UP: Follow-up as clinically indicated. [employer] Work Phone: CT HEAD WO CONTRASTOrdered B y: Trang Said on 06-16-2022 [employer] Work Phone: HCG Qualitative, Serumon hCG Qual Negative NEGATIVE [facility] Comment on above: Specimens with hCG l evels near the threshold of the test (25 mIU/mL) may give a negative or indeterminate result. In such cases, another test should be performed with a new specimen in 48-72 hours. If early is suspected clinically in this setting, correlation with quantitative serum b-hCG level is suggested. [employer] has confirmed the use of plasma for this test. This has not been cleared or approved by the U.S. Food and Drug Administration. The FDA has determined that such clearance is not necessary. No Panel Informationon 06-16 Interpretation and review of laboratory results Abnormal [facility] Urinalysison 06-16-2022 Bilirubin Urine Negative NEGATIVE [facility] [facility] [employer]cret[employer] Color, UA Yellow Yellow [facility] Glucose Auto test strip (U) [Mass/Vol] Negative NEGATIVE [facility] Ketones (U) [Mass/Vol] Negative NEGATIVE [employer] [facility] Leukocyte esterase Auto test strip Ql (U) Negative NEGATIVE [facility] Nitrite Auto test strip Ql (U) Negative NEGATIVE [facility] Protein (U) [Mass/Vol] 7.0 mg/dL 5.0 - 8.0 [employer] [facility] Protein (U) [Mass/Vol] TRACE Abnormal NEGATIVE [employer] [place], UA 1.005 1.005 - 1.030 [employer] [facility] Turbidity UA Clear Clear [facility] Urinalysis Comments [employer] Urine Hgb Negative NEGATIVE [facility] Urobilinogen, Urine Normal Normal [employer] XR LUMBAR SPINE (MIN 4 VIEWS )on 03-13-2022 Radiology Study observation (narrative) JULIANO HANSEN [employer] Phone: No degenerative change, discitis or fracture. [facility] EXAM: XR LUMBAR SPIN E (MIN 4 VIEWS) HISTORY: Reason for exam:->midline low back pain [facility] Quinn Roberto Jr., MD - 03/13/2022 EXAM: XR LUMBAR SPINE (MIN 4 VIEWS) HISTORY: Reason for exam:->midline low back pain IMPRESSION: No degenerative change, discitis or fracture. JULIANO [employer] Phone: XR LUMBAR SPINE (MIN 4 VIEWS )Ordered By: Quinn Roberto on 03-13-2022 [facility]UL[facility] [employer] Phone: CBC AUTO DIFFon 10-04-2021 BASO # 0.0 103/ul Normal 0.0-0.1 [facility] Comment on above: Performed By: #### H H #### [facility] [address] [place] [address] Dr. Ramya Ramey Basophils/100 WBC (Bld) 0.2 % Normal 0.2-2.0 [facility] Comment on above: Performed By: #### H H #### [facility] [address] [place] [address] Dr. Ramya Ramey EO # 0.1 103/ul Normal 0.0-0.7 [facility] Comment on above: Performed By: #### H H #### [facility] [address] [place] [address] Dr. Ramya Ramey Eosinophils/100 WBC (Bld) 0.7 % Critically low 0.9-7.0 [facility] Comment on above: Performed By: #### H H #### [facility] [address] [place] [address] Dr. Ramya Ramey Erythrocyte distribution width (RBC) [Ratio] 13.4 % Normal 11.0-15.0 [facility] Comment on above: Performed By: #### H H #### [facility] [address] [place] [address] Dr. Ramya Ramey Hematocrit (Bld) [Volume fraction] 29.4 % Critically low 36.0-48.0 [facility] Comment on above: Performed By: #### H H #### [facility] [address] [place] [address] Dr. Ramya Ramey Hemoglobin (Bld) [Mass/Vol] 9.5 g/dL Critically low 12.0-16.0 [facility] Comment on above: Performed By: #### H H #### [facility] [address] [address] [address] Ramya Ramey IG # 0.06 10e3/ul Critically high 0.00-0.03 [facility] Comment on above: Performed By: #### H H #### [facility] [address] [place] [address] Dr. Ramya Ramey IG % 0.5 % Normal 0.0-0.5 [facility] Comment on above: Performed By: #### H H #### [facility] [address] [place] [address] Dr. Ramya Ramey LYMPH # 1.3 103/ul Normal 1.2-3.8 [facility] Comment on above: Performed By: #### H H #### [facility] [address] [place] [address] Dr. Ramya Ramey Lymphocytes/100 WBC (Bld) 11.5 % Critically low 20.5-60.0 [facility] Comment on above: Performed By: #### H H #### [facility] [address] [place] [address] Dr. Ramya Ramey MANUAL DIFF REQ NO Normal [facility] Comment on above: Performed By: #### H H #### [facility] [address] [address] [address] Ramya Ramey MCH (RBC) [Entitic mass] 28.4 pg Normal 26.7-34.0 [facility] Comment on above: Performed By: #### H H #### [facility] [address] [place] [address] Dr. Ramya Ramey MCHC (RBC) [Mass/Vol] 32.3 g/dL Normal 29.9-35.2 [facility] Comment on above: Performed By: #### H H #### [facility] [address] [place] [address] Dr. Ramya Ramey MCV (RBC) [Entitic vol] 88.0 fL Normal 81.0-99.0 [facility] Comment on above: Performed By: #### H H #### [facility] [address] [place] [address] Dr. Ramya Ramey MONO # 0.7 103/ul Normal 0.3-0.8 [facility] Comment on above: Performed By: #### H H #### [facility] [address] [place] [address] Dr. Ramya Ramey Monocytes/100 WBC (Bld) 5.9 % Normal 1.7-12.0 [facility] Comment on above: Performed By: #### H H #### [facility] [address] [place] [address] Dr. Ramya Ramey NEUT # 9.4 103/ul Critically high 1.4-6.5 [facility] Comment on above: Performed By: #### H H #### [facility] [address] [place] [address] Dr. Ramya Ramey Neutrophils/100 WBC (Bld) 81.2 % Critically high 43.0-75.0 [facility] Comment on above: Performed By: #### H H #### [facility] [address] [place] [address] Dr. Ramya Ramey Platelet mean volume (Bld) [Entitic vol] 11.9 fL Normal 9.5-13.5 [facility] Comment on above: Performed By: #### H H #### [facility] [address] [place] [address] Dr. Ramya Ramey PLT 162 103/ul Normal 150-450 [facility] Comment on above: Performed By: #### H H #### [facility] [address] [place] [address] Dr. Ramya Ramey RBC 3.34 106/ul Critically low 4.20-5.40 [facility] Comment on above: Performed By: #### H H #### [facility] [address] [address] [address] Ramya Ramey WBC 11.5 103/ul Critically high 4.0-11.0 [facility] Comment on above: Performed By: #### H H #### [facility] [address] [address] [address] Ramya Ramey CBC AUTO DIFFon 10-03-2021 BASO # 0.0 103/ul Normal 0.0-0.1 [facility] Comment on above: Performed By: #### H H #### [facility] [address] [place] [address] Dr. Ramya Ramey Basophils/100 WBC (Bld) 0.2 % Normal 0.2-2.0 [facility] Comment on above: Performed By: #### H H #### [facility] [address] [place] [address] Dr. Ramya Ramey EO # 0.1 103/ul Normal 0.0-0.7 [facility] Comment on above: Performed By: #### H H #### [facility] [address] [place] [address] Dr. Ramya Ramey Eosinophils/100 WBC (Bld) 0.9 % Normal 0.9-7.0 [facility] Comment on above: Performed By: #### H H #### [facility] [address] [place] [address] Dr. Ramya Ramey Erythrocyte distribution width (RBC) [Ratio] 13.3 % Normal 11.0-15.0 [facility] Comment on above: Performed By: #### H H #### [facility] [address] [place] [address] Dr. Ramya Ramey Hematocrit (Bld) [Volume fraction] 34.8 % Critically low 36.0-48.0 [facility] Comment on above: Performed By: #### H H #### [facility] [address] [place] [address] Dr. Ramya Ramey Hemoglobin (Bld) [Mass/Vol] 11.2 g/dL Critically low 12.0-16.0 [facility] Comment on above: Performed By: #### H H #### [facility] [address] [place] [address] Dr. Rmaya Ramey IG # 0.07 10e3/ul Critically high 0.00-0.03 [facility] Comment on above: Performed By: #### H H #### [facility] [address] [place] [address] Dr. Ramya Ramey IG % 0.6 % Critically high 0.0-0.5 [facility] Comment on above: Performed By: #### H H #### [facility] [address] [place] [address] Dr. Ramya Ramey LYMPH # 1.5 103/ul Normal 1.2-3.8 [facility] Comment on above: Performed By: #### H H #### [facility] [address] [place] [address] Dr. Ramya Ramey Lymphocytes/100 WBC (Bld) 13.4 % Critically low 20.5-60.0 [facility] Comment on above: Performed By: #### H H #### [facility] [address] [place] [address] Dr. Ramya Ramey MANUAL DIFF REQ NO Normal [facility] Comment on above: Performed By: #### H H #### [facility] [address] [place] [address] Dr. Ramya Ramey MCH (RBC) [Entitic mass] 28.3 pg Normal 26.7-34.0 [facility] Comment on above: Performed By: #### H H #### [facility] [address] [place] [address] Dr. Ramya Ramey MCHC (RBC) [Mass/Vol] 32.2 g/dL Normal 29.9-35.2 [facility] Comment on above: Performed By: #### H H #### [facility] [address] [place] [address] Dr. Ramya Ramey MCV (RBC) [Entitic vol] 87.9 fL Normal 81.0-99.0 [facility] Comment on above: Performed By: #### H H #### [facility] [address] [address] [address] Ramya Ramey MONO # 0.5 103/ul Normal 0.3-0.8 [facility] Comment on above: Performed By: #### H H #### [facility] [address] [address] [address] Ramya Ramey Monocytes/100 WBC (Bld) 4.8 % Normal 1.7-12.0 [facility] Comment on above: Performed By: #### H H #### [facility] [address] [address] [address] Ramya Ramey NEUT # 8.9 103/ul Critically high 1.4-6.5 [facility] Comment on above: Performed By: #### H H #### [facility] [address] [place] [address] Dr. Ramya Ramey Neutrophils/100 WBC (Bld) 80.1 % Critically high 43.0-75.0 [facility] Comment on above: Performed By: #### H H #### [facility] [address] [place] [address] Dr. Ramya Ramey Platelet mean volume (Bld) [Entitic vol] 11.8 fL Normal 9.5-13.5 [facility] Comment on above: Performed By: #### H H #### [facility] [address] [place] [address] Dr. Ramya Ramey PLT 194 103/ul Normal 150-450 [facility] Comment on above: Performed By: #### H H #### [facility] [address] [address] [address] Ramya Ramey RBC 3.96 106/ul Critically low 4.20-5.40 [facility] Comment on above: Performed By: #### H H #### [facility] [address] [address] [address] Ramya Ramey WBC 11.1 103/ul Critically high 4.0-11.0 [facility] Comment on above: Performed By: #### H H #### [facility] [address] [place] [address] Dr. Ramya Ramey Covid-19 PCR ([facility])on SARS-CoV-2 (COVID-19) RNA JAKE+probe Ql (Unsp spec) Not detected Normal NOT DETECTED [facility] Comment on above: Result Comment: When [...] for this test is supported by the Change Manager of Health and Human Service's declaration that [...] used). Performed By: #### H H #### [facility] [address] [place] [address] Dr. Ramya Ramey DRUG SCREEN RAPID (URINE)on 10-03-2021 AMP Negative Normal NEGATIVE [facility] Comment on above: Performed By: #### H H #### [facility] [address] [address] [address] Ramya Ramey BAR Negative Normal NEGATIVE [facility] Comment on above: Performed By: #### H H #### [facility] [address] [address] [address] Ramya Ramey BUP Negative Normal NEGATIVE [facility] Comment on above: Performed By: #### H H #### [facility] [address] [place] [address] Dr. Ramya Ramey BZO Negative Normal NEGATIVE [facility] Comment on above: Performed By: #### H H #### [facility] [address] [place] [address] Dr. Ramya Ramey ANIBAL Negative Normal NEGATIVE [facility] Comment on above: Performed By: #### H H #### [facility] [address] [place] [address] Dr. Ramya Ramey CUT-OFFS SEE BELOW Normal [facility] Comment on above: Result Comment: AMP [...] ng/mL Performed By: #### H H #### [facility] [address] [place] [address] Dr. Ramya Ramey DRUG CUT HEADER DRUG CLASS TEST SYSTEM CUT-OFF CONCENTRATIONS ARE FOLLOWS: Normal [facility] Comment on above: Performed By: #### H H #### [facility] [address] [place] [address] Dr. Ramya Ramey mAMP Negative Normal NEGATIVE [facility] Comment on above: Performed By: #### H H #### [facility] [address] [place] [address] Dr. Ramya Ramey MTD Negative Normal NEGATIVE [facility] Comment on above: Performed By: #### H H #### [facility] [address] [place] [address] Dr. Ramya Ramey OPI Negative Normal NEGATIVE [facility] Comment on above: Performed By: #### H H #### [facility] [address] [place] [address] Dr. Ramya Ramey OXY Negative Normal NEGATIVE [facility] Comment on above: Performed By: #### H H #### [facility] [address] [place] [address] Dr. Ramya Ramey PCP Negative Normal NEGATIVE [facility] Comment on above: Performed By: #### H H #### [facility] [address] [address] [address] Ramya Ramey PPX Negative Normal NEGATIVE [facility] Comment on above: Performed By: #### H H #### [facility] [address] [address] [address] Ramya Ramey TCA Negative Normal NEGATIVE [facility] Comment on above: Performed By: #### H H #### [facility] [address] [address] [address] Ramya Ramey THC Negative Normal NEGATIVE [facility] Comment on above: Performed By: #### H H #### [facility] [address] [place] [address] Dr. Ramya Ramey POINT OF CARE GLUCOSEon Glucose [Mass/Vol] 126 mg/dL Critically high 74-106 [facility] Comment on above: Performed By: #### P OCGLUC #### [facility] [address] [address] [address] Ramya Ramey TYPE AND SCREENon 10-03-2021 TYPE AND SCREEN Negative Normal [facility] Comment on above: Performed By: #### P OCGLUC #### [facility] [address] [address] [address] Ramya Ramey CULTURE URINEon 10-01-2021 CULTURE URINE Culture Observations : LIGHT GROWTH OF MIXED GENITAL LEANA. NO POTENTIAL PATHOGENS SEEN. Normal [facility] Comment on above: Performed By: #### P OCGLUC #### [facility] [address] [place] [address] Dr. Ramya Ramey POINT OF CARE GLUCOSEon 09-04 Glucose [Mass/Vol] 134 mg/dL Critically high 74-106 [facility] Comment on above: Performed By: #### P OCGLUC #### [facility] [address] [address] [address] Ramya Ramey UA (CLEAN/CATCH) CHEF PASSENGER VESSEL/MICRO I F IND.on 10-01-2021 Bilirubin Ql (U) Negative Normal NEGATIVE [facility] Comment on above: Performed By: #### U ACSIND, UMICRO #### [facility] [address] [address] [address] Ramya Ramey Clarity (U) CLEAR Normal CLEAR [facility] Comment on above: Performed By: #### U ACSIND, UMICRO #### [facility] [address] [address] [address] Ramya Ramey Color (U) YELLOW Normal YELLOW [facility] Comment on above: Performed By: #### U ACSIND, UMICRO #### [facility] [address] [address] [address] Ramya Ramey Glucose Ql (U) Negative Normal NEGATIVE [facility] Comment on above: Performed By: #### U ACSIND, UMICRO #### [facility] [address] [place] [address] Dr. Ramya Ramey Hemoglobin Ql (U) Negative Normal NEGATIVE [facility] Comment on above: Performed By: #### U ACSIND, UMICRO #### [facility] [address] [place] [address] Dr. Ramya Ramey Ketones Ql (U) Negative Normal NEGATIVE [facility] Comment on above: Performed By: #### U ACSIND, UMICRO #### [facility] [address] [place] [address] Dr. Ramya Ramey LEUKOCYTES LARGE Abnormal NEGATIVE [facility] Comment on above: Performed By: #### U ACSIND, UMICRO #### [facility] [address] [address] [address] Ramya Ramey Nitrite Ql (U) Negative Normal NEGATIVE [facility] Comment on above: Performed By: #### U ACSIND, UMICRO #### [facility] [address] [place] [address] Dr. Ramya Ramey pH (U) 6.5 [pH] Normal 5-9 [facility] Comment on above: Performed By: #### U ACSIND, UMICRO #### [facility] [address] [address] [address] Ramya Ramey SPEC GRAVITY 1.010 Normal 1.005-<=1.0 25 [facility] Comment on above: Performed By: #### U ACSIND UMICRO #### [facility] [address] [place] [address] Dr. Ramya Ramey UA PROTEIN Negative Normal NEGATIVE/ TRACE [facility] Comment on above: Performed By: #### U ACSIND, UMICRO #### [facility] [address] [place] [address] Dr. Ramya Ramey UR MICRO IND INDICATED Normal [facility] Comment on above: Performed By: #### U ACSIND, UMICRO #### [facility] [address] [place] [address] Dr. Ramya Ramey Urobilinogen Qn (U) 0.2 {Sariah'U}/dL Normal 0.2 - 1. 0 [facility] Comment on above: Performed By: #### U ACSCLOVER UMICRO #### [facility] [address] [place] [address] Dr. Ramya Ramey URINE MICROSCOPIC ONLYon BACTERIA LARGE Abnormal NONE SEEN [facility] Comment on above: Performed By: #### U ACSCLOVER, UMICRO #### [facility] [address] [place] [address] Dr. Ramya Ramey Bacteria identified Cx Nom (U) INDICATED Normal [facility] Comment on above: Performed By: #### U ACSIND, UMICRO #### [facility] [address] [place] [address] Dr. Ramya Ramey CAST NONE SEEN Normal NONE SEEN [facility] Comment on above: Performed By: #### U ACSIND, UMICRO #### [facility] [address] [place] [address] Dr. Ramya Ramey Crystals LM Nom (Urine sed) NONE SEEN Normal NONE SEEN [facility] Comment on above: Performed By: #### U ACSIND, UMICRO #### [facility] [address] [place] [address] Dr. Ramya Ramey Epithelial cells LM Ql (Urine sed) MANY Abnormal NONE SEEN /RARE [facility] Comment on above: Performed By: #### U ACSIND, UMICRO #### [facility] [address] [address] [address] Ramya Ramey MUCOUS TRACE Abnormal NONE SEEN [facility] Comment on above: Performed By: #### U ACSIND, UMICRO #### [facility] [address] [place], [place] [address] Dr. Ramya Ramey RBC 5-10 Abnormal 0-2 [facility] Comment on above: Performed By: #### U ACSIND, UMICRO #### [facility] [address] [place], [place] [address] Dr. Ramya Ramey WBC 75-100 Abnormal NONE SEEN [facility] Comment on above: Performed By: #### U ACSIND, UMICRO #### [facility] [address] [address] [address] Ramya Ramey GROUP B STREP CULTUREon [...] S F Tetracycline >=16 R F Normal [facility] [facility] Comment on above: Performed By: #### G BSCX #### [facility] [address] [address] [address] Ramya Ramey US PREG BIOPHY W [...] by: MARY CRAFT Date: 2021-09-26 10:40 Normal [facility] US PREG GROWTHon 09-26-2021 US PREG [...] by: MARY CRAFT Date: 2021-09-26 10:42 Normal [facility] US PREG BIOPHY W NON STRESSo [...] by: ZAYRA ORTIZ Date: 2021-09-20 07:12 Normal [facility] US PREG BIOPHY W NON STRESSo [...] by: MARY CRAFT Date: 2021-09-12 16:24 Normal [facility] US PREG BIOPHY W NON STRESSo [...] by: MARY CRAFT Date: 2021-09-05 16:47 Normal [facility] US PREG BIOPHY W NON STRESSo [...] by: ZAYRA ORTIZ Date: 2021-08-31 07:14 Normal [facility] US PREG BIOPHY W NON STRESSo [...] by: ZAYRA ORTIZ Date: 2021-08-30 07:11 Normal [facility] US PREG GROWTHon 08-30-2021 US PREG [...] by: ZAYRA ORTIZ Date: 2021-08-30 07:10 Normal [facility] CULTURE URINEon 08-24-2021 CULTURE URINE Culture Observations : MODERATE GROWTH OF MIXED GENITAL LEANA. NO POTENTIAL PATHOGENS SEEN. Normal [facility] Comment on above: Performed By: #### P OCGLUC #### [facility] [address] [place] [address] Dr. Ramya Ramey POINT OF CARE GLUCOSEon 08-04 Glucose [Mass/Vol] 132 mg/dL Critically high 74-106 [facility] Comment on above: Performed By: #### H H #### [facility] [address] [place] [address] Dr. Ramya Ramey UA (CLEAN/CATCH) CHEF PASSENGER VESSEL/MICRO I F IND.on 08-24-2021 Bilirubin Ql (U) Negative Normal NEGATIVE [facility] Comment on above: Performed By: #### U ACSIND, UMICRO #### [facility] [address] [address] [address] Ramya Ramey Clarity (U) CLEAR Normal CLEAR [facility] Comment on above: Performed By: #### U ACSIND, UMICRO #### [facility] [address] [place] [address] Dr. Ramya Ramey Color (U) YELLOW Normal YELLOW [facility] Comment on above: Performed By: #### U ACSIND, UMICRO #### [facility] [address] [place] [address] Dr. Ramya Ramey Glucose Ql (U) 250 mg/dl Abnormal NEGATIVE [facility] Comment on above: Performed By: #### U ACSIND, UMICRO #### [facility] [address] [place] [address] Dr. Ramya Ramey Hemoglobin Ql (U) TRACE-INTACT Abnormal NEGATIVE [facility] Comment on above: Performed By: #### U ACSIND, UMICRO #### [facility] [address] [place] [address] Dr. Ramya Ramey Ketones Ql (U) Negative Normal NEGATIVE [facility] Comment on above: Performed By: #### U ACSIND, UMICRO #### [facility] [address] [address] [address] Ramya Ramey LEUKOCYTES MODERATE Abnormal NEGATIVE [facility] Comment on above: Performed By: #### U ACSIND, UMICRO #### [facility] [address] [place] [address] Dr. Ramya Ramey Nitrite Ql (U) Negative Normal NEGATIVE [facility] Comment on above: Performed By: #### U ACSIND, UMICRO #### [facility] [address] [place] [address] Dr. Ramya Ramey pH (U) 6.0 [pH] Normal 5-9 [facility] Comment on above: Performed By: #### U ACSIND, UMICRO #### [facility] [address] [address] [address] Ramya Ramey SPEC GRAVITY 1.020 Normal 1.005-<=1.[address] [place] [address] Comment on above: Performed By: #### U ACSIND, UMICRO #### [facility] [address] [address] [address] Ramya Ramey UA PROTEIN TRACE Normal NEGATIVE/ TRACE [facility] Comment on above: Performed By: #### U ACSIND, UMICRO #### [facility] [address] [address] [address] Ramya Ramey UR MICRO IND INDICATED Normal [facility] Comment on above: Performed By: #### U ACSIND, UMICRO #### [facility] [address] [place] [address] Dr. Ramya Ramey Urobilinogen Qn (U) 0.2 {Sariah'U}/dL Normal 0.2 - 1. 0 [facility] Comment on above: Performed By: #### U ACSIND, UMICRO #### [facility] [address] [place] [address] Dr. Ramya Ramey URINE MICROSCOPIC ONLYon BACTERIA MODERATE Abnormal NONE SEEN [facility] Comment on above: Performed By: #### U ACSIND, UMICRO #### [facility] [address] [place] [address] Dr. Ramya Ramey Bacteria identified Cx Nom (U) INDICATED Normal [facility] Comment on above: Performed By: #### U ACSIND, UMICRO #### [facility] [address] [place] [address] Dr. Ramya Ramey CAST NONE SEEN Normal NONE SEEN [facility] Comment on above: Performed By: #### U ACSIND, UMICRO #### [facility] [address] [place] [address] Dr. Ramya Ramey Crystals LM Nom (Urine sed) NONE SEEN Normal NONE SEEN [facility] Comment on above: Performed By: #### U ACSIND, UMICRO #### [facility] [address] [place] [address] Dr. Ramya Ramey Epithelial cells LM Ql (Urine sed) MANY Abnormal NONE SEEN /RARE [facility] Comment on above: Performed By: #### U RHYS UMICRO #### [facility] [address] [address] [address] Ramya Ramey MUCOUS NONE SEEN Normal NONE SEEN [facility] Comment on above: Performed By: #### U ACSCLOVER UMTERENCERO #### [facility] [address] [place] [address] Dr. Ramya Ramey RBC 2-5 Abnormal 0-2 [facility] Comment on above: Performed By: #### U MARYCARMEN JOINERRO #### [facility] [address] [place] [address] Dr. Ramya Ramey WBC 10-20 Abnormal NONE SEEN [facility] Comment on above: Performed By: #### U RHYS UMTERENCERO #### [facility] [address] [place] [address] Dr. Ramya Ramey HEPATITIS C ANTIBODYon 07-18 Hep C Virus Ab <0.1 Normal 0.0-0.9 [facility] Comment on above: Result Comment: Nega tive: < 0.8 Indeterminate: 0.8 - 0.9 Positive: > 0.9 . The CDC recommends that a positive HCV antibody result be followed up with a HCV Nucleic Acid Amplification test (527108). Performed By: #### H CV #### [facility] [address] [place] [address] Dr. Ramya Ramey ABO AND RH TYPEon 07-17-2021 ABO and Rh group Nom (Bld) ABO Rh Typing B Rh Positive Normal [facility] Comment on above: Performed By: #### P OCGLUC #### [facility] [address] [place] [address] Dr. Ramya Ramey GLUCOSE - 1HRon 07-17-2021 Glucose [Mass/Vol] 238 mg/dL Critically high 74-106 [facility] Comment on above: Performed By: #### G LU1HR #### [facility] [address] [address] [address] Ramya Ramey GLYCOHEMOGLOBIN A1Con 2021 ADA RECOMMENDATION ADA THERAPEUTIC TARGET 6.0 - 7.0 ACTION SUGGESTED > 7.0 Normal [facility] Comment on above: Performed By: #### H H #### [facility] [address] [address] [address] Ramya Ramey Glucose [Mass/Vol] 120 mg/dL Normal [facility] Comment on above: Performed By: #### H H #### [facility] [address] [address] [address] Ramya Ramey HbA1c (Bld) [Mass fraction] 5.8 % Normal <=6.0 [facility] Comment on above: Performed By: #### H H #### [facility] [address] [place] [address] Dr. Ramya Ramey HEMOGRAM AND PLATELon 2021 Hematocrit (Bld) [Volume fraction] 33.3 % Critically low 36.0-48.0 [facility] Comment on above: Performed By: #### H H #### [facility] [address] [address] [address] Ramya Ramey Hemoglobin (Bld) [Mass/Vol] 10.8 g/dL Critically low 12.0-16.0 [facility] Comment on above: Performed By: #### H H #### [facility] [address] [place] [address] Dr. Ramya Ramey MCH (RBC) [Entitic mass] 28.9 pg Normal 26.7-34.0 [facility] Comment on above: Performed By: #### H H #### [facility] [address] [address] [address] Ramya Ramey MCHC (RBC) [Mass/Vol] 32.4 g/dL Normal 29.9-35.2 [facility] Comment on above: Performed By: #### H H #### [facility] [address] [address] [address] Ramya Ramey MCV (RBC) [Entitic vol] 89.0 fL Normal 81.0-99.0 [facility] Comment on above: Performed By: #### H H #### [facility] [address] [address] [address] Ramya Ramey PLT 217 103/ul Normal 150-450 [facility] Comment on above: Performed By: #### H H #### [facility] [address] [address] [address] Ramya Ramey RBC 3.74 106/ul Critically low 4.20-5.40 [facility] Comment on above: Performed By: #### H H #### [facility] [address] [address] [address] Ramya Ramey WBC 11.5 103/ul Critically high 4.0-11.0 [facility] Comment on above: Performed By: #### H H #### [facility] [address] [place] [address] Dr. Ramya Ramey CHLAMYDIA/GONOCOCCUS JAKE ( AB/URINE/PAPon 06-21-2021 Chlamydia trachomatis, JAKE Negative Normal Negative [facility] Comment on above: Performed By: #### C T/NGNA #### [facility] [address] [place] [address] Dr. Ramya Ramey Neisseria gonorrhoeae, JAKE Negative Normal Negative [facility] Comment on above: Performed By: #### C T/NGNA #### [facility] [address] [place] [address] Dr. Ramya Ramey VAGINITIS/VAGINOSIS DNA PROB [place] 06-20-2021 Teetee species Negative Normal Negative [facility] Comment on above: Performed By: #### H H #### [facility] [address] [place] [address] Dr. Ramya Ramey Gardnerella vaginalis Positive Abnormal Negative [facility] Comment on above: Performed By: #### H H #### [facility] [address] [place] [address] Dr. Ramya Ramey Trichomonas vaginalis Negative Normal Negative [facility] Comment on above: Performed By: #### H H #### [facility] [address] [place], [place] [address] Dr. Ramya Ramey AFP, Maternalon 06-03-2021 Determined by Other Normal [facility] Comment on above: Performed By: #### C MIS #### [facility] [address] [place] [address] [employer]: Antoine Wilson MD #### AAFPM #### [address] [address] [employer]: Antoine Wilson MD [facility] [address] [place], [place] [id number] [employer]ator: Nick Mills MD Due Date SEE NOTE Normal [facility] Comment on above: Result Comment: Resu lts for Estimated Due Date: 10 21 21 Performed By: #### C MIS #### [address] [address] [employer]: Antoine Wilson MD #### AAFPM #### [address] [address] [employer]ator: Antoine Wilson MD [address] [address] [employer]ator: Nick Mills MD Family History No Normal [facility] Comment on above: Performed By: #### C MIS #### [address] [address] [employer]ator: Antoine Wilson MD #### AAFPM #### [address] [address] [employer]ator: Antoine Wilson MD [facility] [address] [place] [address] [employer]ator: Nick Mills MD Gestat Age (exact) 19 wks, 4 days Normal [facility] Comment on above: Performed By: #### C MIS #### [address] [address] [employer]ator: Antoine Wilson MD #### AAFPM #### [address] [address] [employer]ator: Antoine Wilson MD [address] [id number] [employer]ator: Nick Mills MD Ins Req Matern Diab Unknown [facility] Comment on above: Performed By: #### C MIS #### [address] [address] [employer]ator: Antoine Wilson MD #### AAFPM #### [address] [address] [employer]ator: Antoine Wilson MD [address] [address] [employer]ator: Nick Mills MD Interpretation Screen Neg [facility] Comment on above: Result Comment: (NOT E) INTERPRETATION: SCREEN NEGATIVE for open spina bifida Neural Tube Defects (NTD) Negative Pre-Test Post-Test Cutoff Neural Tube Defects Risks 1:1030 1:7440 1:250 Comments: The risk of an open neural tube defect is less than the screening cut-off. This test was developed and its performance characteristics determined by [employer]. It has not been cleared or approved by the [place] Food and Drug Administration. This test was performed in a CLIA certified laboratory and is intended for clinical purposes. Performed By: #### C MIS #### [address] [address] [employer]ator: Antoine Wilson MD #### AAFPM #### [address] [address] [employer]ator: Antoine Wilson MD [address] [id number] [employer]ator: Nick Mills MD [age] [facility] Comment on above: Performed By: #### C MIS #### [address] [address] [employer]ator: Antoine Wilson MD #### AAFPM #### [address] [address] [employer]ator: Antoine Wilson MD [address] [address] [employer] Fabricator: Nick Mills MD Maternal Race Nonblack [facility] Comment on above: Performed By: #### C MIS #### [address] [address] [employer]ator: Antoine Wilson MD #### AAFPM #### [address] [address] [employer]ator: Antoine Wilson MD [address] [address] [employer]ator: Nick Mills MD Maternal Weight 204.[address] lbs[address] [facility] Comment on above: Performed By: #### C MIS #### [address] [address] [employer]ator: Antoine Wilson MD #### AAFPM #### [address] [address] [employer]ator: Antoine Wilson MD [address] [address] [employer] Fabricator: Nick Mills MD MoM for AFP 1.18 [facility] Comment on above: Performed By: #### C MIS #### [address] [address] [employer] Fab[employer]ator: Antoine Wilson MD #### AAFPM #### [address] [address] [employer] Fab[employer]ator: Antoine Wilson MD [address] [id number] [employer]ator: Nick Mills MD Number of Fetuses Tate Normal [facility] Comment on above: Performed By: #### C MIS #### [address] [address] [employer]ator: Antoine Wilson MD #### AAFPM #### [address] [address] [employer]ator: Antoine Wilson MD [address] [address] [employer] Fab[employer]ator: Nick Mills MD Patient's AFP 55 ng/mL [facility] Comment on above: Performed By: #### C MIS #### [address] [address] [employer]ator: Antoine Wilson MD #### AAFPM #### [address] [address] [employer] Fab[employer]ator: Antoine Wilson MD [address] [address] [employer] Fab[employer]ator: Nick Mills MD Smoking Yes Normal [facility] Comment on above: Performed By: #### C MIS #### [address] [address] [employer]ator: Antoine Wilson MD #### AAFPM #### [address] [address] [employer]ator: Antoine Wilson MD [address] [address] [employer]ator: Nick Mills MD Specimen See Note [facility] Comment on above: Result Comment: (NOT E) Initial sample Performed by [facility], [address] [place] [id number] [email or web address], Noreen Zafar MD, Lab. Director Performed By: #### C MIS #### [address] [address] [employer]ator: Antoine Wilson MD #### AAFPM #### [address] [address] [employer]ator: Antoine Wilson MD [facility] [address] [place] [address] [employer]ator: Nick Mills MD AFP, Maternalon 06-01-2021 Current Smoking YES Normal [facility] Comment on above: Performed By: #### C MIS #### [address] [address] [employer]ator: Antoine Wilson MD #### AAFPM #### [address] [address] [employer] Fab[employer]ator: Antoine Wilson MD [address] [id number] [employer] Fab[employer]ator: Nick Mills MD Dating LMP Normal [facility] Comment on above: Performed By: #### C MIS #### [address] [address] [employer]ator: Antoine Wilson MD #### AAFPM #### [address] [address] [employer] Fab[employer]ator: Antoine Wilson MD [facility] [address] [place] [address] [employer] Fabricator: Nick Mills MD Diabetic INFORMATION NOT PROVIDED Normal [facility] Comment on above: Performed By: #### C MIS #### [address] [address] [employer]ator: Antoine Wilson MD #### AAFPM #### [address] [place] [address] P[employer] Fabricator: Antoine Wilson MD [facility] [address], [place] [id number] Pewter Fabricator: Nick Mills MD Donor Egg [facility] Comment on above: Performed By: #### C MIS #### [facility] [address] [place] [address] [employer] Fabricator: Antoine Wilson MD #### AAFPM #### [facility] [address] [place] [address] [employer] Fab[employer]ator: Antoine Wilson MD [address] [phone] P[employer] Fabricator: Nick Mills MD Estimated Due Date 10 21 2021 [facility] Comment on above: Performed By: #### C MIS #### [address] [address] [employer] Fabricator: Antoine Wilson MD #### AAFPM #### [address] [address] P[employer] Fabricator: Antoine Wilson MD [facility] [address] [place] [id number] [employer] Fab[employer]ator: Nick Mills MD Family History [facility] Comment on above: Performed By: #### C MIS #### [facility] [address] [place] [address] [employer]ator: Antoine Wilson MD #### AAFPM #### [facility] [address] [place] [address] [employer] Fabricator: Antoine Wilson MD [facility] [address] [place], [place] [id number] Pewter Fabricator: Nick Mills MD In Vitro Fertal[employer] [facility] Comment on above: Performed By: #### C MIS #### [facility] [address] [place] [address] P[employer] Fabricator: Antoine Wilson MD #### AAFPM #### [facility] [address] [place] [address] Pewter Fabricator: Antoine Wilson MD [facility] [address] [place] [address] P[employer]ter Fabricator: Nick Mills MD LMP date 01 14 2021 [facility] Comment on above: Performed By: #### C MIS #### [facility] [address] [place] [address] [employer] Fab[employer]ator: Antoine Wilson MD #### AAFPM #### [address] [address] Pewter Fabricator: Antoine Wilson MD [address] [phone] P[employer] Fabricator: Nick Mills MD Maternal date 08 14 1997 [facility] Comment on above: Performed By: #### C MIS #### [address] [address] [employer] Fabricator: Antoine Wilson MD #### AAFPM #### [address] [address] Pewter Fabricator: Antoine Wilson MD [facility] [address] [place] [address] P[employer] Fabricator: Nick Mills MD Maternal Weight 204 [facility] Comment on above: Performed By: #### C MIS #### [facility] [address] [place] [address] [employer]ator: Antoine Wilson MD #### AAFPM #### [address] [address] Pewter Fabricator: Antoine Wilson MD [facility] [address] [place] [address] Pewter Fabricator: Nick Mills MD Monochorionic Twins TATE Normal [facility] Comment on above: Performed By: #### C MIS #### [address] [address] P[employer] Fabricator: Antoine Wilson MD #### AAFPM #### [address] [address] Pewter Fabricator: Antoine Wilson MD [facility] [address] [place] [address] Pewter Fabricator: Nick Mills MD Patient Weight Units LBS Normal [facility] Comment on above: Performed By: #### C MIS #### [address] [address] [employer] Fab[employer]ator: Antoine Wilson MD #### AAFPM #### [address] [address] Pewter Fabricator: Antoine Wilson MD [facility] [address] [place], [place] [id number] P[employer]ter Fabricator: Nick Mills MD Race (Maternal) WHITE Normal [facility] Comment on above: Performed By: #### C MIS #### [address] [address] [employer] Fab[employer]ator: Antoine Wilson MD #### AAFPM #### [address] [address] Pewter Fabricator: Antoine Wilson MD [facility] [address] [place] [address] P[employer]ter Fabricator: Nick Mills MD Repeat Specimen INFORMATION NOT PROVIDED [facility] Comment on above: Performed By: #### C MIS #### [address] [address] P[employer] Fabricator: Antoine Wilson MD #### AAFPM #### [address] [address] P[employer] Fab[employer]ator: Antoine Wilson MD [address] [address] Pewter Fabricator: Nick Mills MD Valproic/Carbamazep INFORMATION NOT PROVIDED [facility] Comment on above: Performed By: #### C MIS #### [facility] [address] [place] [address] P[employer] Fabricator: Antoine Wilson MD #### AAFPM #### [address] [address] Pewter Fabricator: Antoine Wilson MD [address] [address] Pewter Fabricator: MD [facility] 06-01-2021 Send Out Report [place] [id number] [facility] Comment on above: Performed By: #### C MIS #### [address] [address] [employer] Fab[employer]ator: Antoine Wilson MD #### AAFPM #### [address] [address] Pewter Fabricator: Antoine Wilson MD [address] [address] Pewter Fabricator: MD [facility] 05-[facility]-2021 Test Name [facility] Comment on above: Performed By: #### C MIS #### [address] [address] P[employer] Fab[employer]ator: Antoine Wilson MD #### AAFPM #### [address] [address] [employer] Fab[employer]ator: Antoine Wilson MD [address] [address] P[employer] Fab[employer]ator: Nick Mills MD COVID-19, Rapidon 05-22-2021 Interpretation and review of laboratory results [facility]normal [facility]-2 (COVID-19) RNA JAKE+probe Ql (Unsp spec) Detected Abnormal Not Detected [employer] Comment on above: Rapid NAAT: The specimen [...] this assay. Fact sheet for Healthcare Providers: https://www.fda.gov/media/732765/download Fact sheet for Patients: https://www.fda.gov/media/805111/download Methodology: Isothermal Nucleic Acid Amplification Results reported to the appropriate Health Department Specimen Description .NASOPHARYNGEAL SWAB [employer] Basic Metabolic Panelon 12-0 Anion gap [Moles/Vol] 14 mmol/L 9 - 17 mmol/L [employer] Calcium [Mass/Vol] 9.3 mg/dL 8.6 - 10. 4 mg/dL [employer] Chloride [Moles/Vol] 100 mmol/L 98 - 10 7 mmol/L [employer] CO2 [Moles/Vol] 19 mmol/L Low 20 - 31 mmol/L [employer] Creatinine [Mass/Vol] 0.48 mg/dL Low 0.50 - 0.90 mg/dL [employer] GFR >60 >60 mL/min Unyqe GFR Non- >60 >60 mL/min [employer] GFR/1.73 sq M.predicted MDRD (S/P/Bld) [Vol rate/Area] [employer] Comment on above: Average GFR for 20-2 9 years old: 116 mL/min/1.73sq m Chronic Kidney Disease: <60 mL/min/1.73sq m Kidney failure: <15 mL/min/1.73sq m eGFR calculated using average adult body mass. Additional eGFR calculator available at: http://www.[employer]/multiple_crcl_2012.htm GFR/1.73 sq M.predicted MDRD (S/P/Bld) [Vol rate/Area] NOT REPORTED [facility] Glucose [Mass/Vol] 209 mg/dL High 70 - 99 mg/dL [facility] Interpretation and review of laboratory results Abnormal [facility] Potassium [Moles/Vol] 3.9 mmol/L 3.7 - 5.3 mmol/L [facility] Sodium [Moles/Vol] 133 mmol/L Low 135 - 144 mmol/L [facility] Urea nitrogen (BldV) [Mass/Vol] 7 mg/dL 6 - 20 mg/dL [facility] Urea nitrogen/Creatinine (Bld) [Mass ratio] 15 Formerly Named [facility] US OB 1ST TRIMESTER TRANSBDO BECKY ONLY [...] Doppler analysis. Somatic motion also noted by metal expediter. Uterus measures 13.4 x 7.8 x 8.7 [...] ID: [id number] Dictated by: BLAINE CHIU on [place] Apr 01, 2021 8:19:34 PM EST Transcribed by: BLAINE CHIU on [place] Apr 01, 2021 8:19:34 PM EST Finalized by: BLAINE CHIU on [place] Apr 01, 2021 8:19:34 PM EST Normal [facility] Comment on above: Order Comment: Injur y/Trauma or Illness?:Illness/Other How long have you had these symptoms (acute/chronic)?:Acute Reason for exam?:vaginal bleeding, rt pelvic pain History of cancer?:na Surgeries, chemotherapy, or radiation?:na Type of Exam?:Initial Additional signs and symptoms?:n Microscopic UrinalysisOrdere d By: Braydon May on 02-10-2021 - [facility] [employer] Work Phone: Amorphous, UA NOT REPORTED None [facility] Work Phone: Bacteria, UA 1+ Abnormal None [facility] Work Phone: Casts UA NOT REPORTED /LPF [facility] Work Phone: Crystals, UA NOT REPORTED None /HPF [facility] Work Phone: Epithelial Cells UA 5 TO 10 /HPF [facility] Work Phone: Mucus, UA NOT REPORTED None [facility] Work Phone: Other Observations UA NOT REPORTED NOT REQ. M [facility] Work Phone: RBC, UA 0 TO 2 [facility] Work Phone: Renal Epithelial, UA NOT REPORTED 0 /HPF [facility] Work Phone: Trichomonas, UA NOT REPORTED None [facility] Work Phone: WBC, UA 2 TO 5 0 /HPF [facility] Work Phone: Yeast, UA NOT REPORTED None [employer] Phone: No Panel InformationOrdered By: Braydon May on 02-10-2021 Interpretation and review of laboratory results Abnormal [employer] Work Phone: [employer] Work Phone: UrinalysisOrdered By: Braydon May on 02-10-2021 Bilirubin Urine Negative NEGATIVE [facility] Work Phone: Color, UA Yellow Yellow [employer] Work Phone: Glucose, Ur Negative NEGATIVE [employer] Work Phone: Ketones Ql (U) Negative NEGATIVE [employer] Work Phone: Leukocyte esterase Test strip Ql (U) 2+ Abnormal NEGATIVE [employer] Phone: Nitrite, Urine Negative NEGATIVE [employer] Work Phone: pH, UA 6.0 [employer] Work Phone: Protein, UA Negative NEGATIVE [employer] Work Phone: Specific [place], UA 1.020 [employer] Phone: Turbidity UA Clear Clear [employer] Work Phone: Urinalysis Comments [employer] Work Phone: Urine Hgb 1+ Abnormal NEGATIVE [employer] Phone: Urobilinogen, Urine Normal Normal [employer] Phone: hCG, quantitative, Ordered By: Braydon May on 02-10-2021 hCG Quant 160 High <5 IU/L [employer] Phone: Comment on above: Non-preg premeno <=5 Postmeno <=8 Male <=3 If HCG results do not concur with clinical observations, additional testing to confirm results is recommended. Elevated results not associated with may be found in patients with other diseases such as tumors of the germ cells (testis, ovaries, etc.), bladder, pancreas, stomach, lungs, and liver. CBC Auto DifferentialOrdered By: Bea Jacobs on 12-10-2020 Absolute Eos # 0.10 [employer] [facility] Work Phone: Absolute Immature Granulocyte NOT REPORTED [employer] Work Phone: Absolute Lymph # 1.80 [employer] [facility] Work Phone: Absolute Carter # 0.70 [employer] [facility] Work Phone: Basophils (Bld) [#/Vol] 0.10 10*3/uL [employer] Work Phone: Basophils/100 WBC (Bld) 1 % 0 - 2 % M [employer] Work Phone: Differential Type YES [employer] Work Phone: Eosinophils/100 WBC (Bld) 1 % 0 - 5 % [employer] Work Phone: Hematocrit (Bld) [Volume fraction] 42.8 % 36 - 46 % [employer] Work Phone: Hemoglobin.gastrointest inal spec 1 Ql (Stl) 14.6 g/dL 12.0 - 16.0 g/dL [employer] Phone: Immature Granulocytes NOT REPORTED 0 % M [employer] Work Phone: Lymphocytes/100 WBC (Bld) 16 % 15 - 40 % [employer] Phone: MCH (RBC) [Entitic mass] 30.0 pg 26 - 34 pg [employer] Work Phone: MCHC (RBC) [Mass/Vol] 34.2 g/dL 31 - 3 7 g/dL [employer] Phone: MCV (RBC) [Entitic vol] 87.8 fL 80 - 100 fL [employer] Work Phone: Monocytes/100 WBC (Bld) 6 % 4 - 8 % M [employer] [facility] [facility] Work Phone: NRBC Automated NOT REPORTED per 100 WBC [facility] Work Phone: Platelet distribution width (Bld) [Ratio] 13.1 % 12.1 - 15.2 % [employer] Phone: Platelet Estimate NOT REPORTED [employer] Phone: Platelet mean volume (Bld) [Entitic vol] NOT REPORTED 6.0 - 12.0 fL [employer] Work Phone: Platelets (Bld) [#/Vol] 230 10*3/uL [employer] Phone: RBC (Bld) [#/Vol] 4.87 10*6/uL 4.0 - 5.2 m/uL [employer] Phone: RBC (Bld) [#/Vol] NOT REPORTED [facility] Work Phone: Segmented neutrophils/100 WBC (Bld) 76 % High 47 - 75 % [employer] Work Phone: Segs Absolute 8.80 High [employer] [facility] [employer] Work Phone: WBC (Bld) [#/Vol] 11.5 10*3/uL High [employer] Work Phone: WBC (Bld) [#/Vol] NOT REPORTED [employer] Work Phone: Comprehensive Metabolic Pane l w/ Reflex to MGOrdered By: Bea Jacobs on 12-10-2020 Albumin [Mass/Vol] 4.3 g/dL 3.5 - 5.2 g/dL [employer] Phone: Albumin/Globulin Ratio NOT REPORTED [employer] Phone: ALP (Bld) [Catalytic activity/Vol] 105 U/L High 35 - 104 U/L [employer] Work Phone: ALT [Catalytic activity/Vol] 17 U/L 5 - 33 U/L [employer] Phone: Anion gap [Moles/Vol] 12 mmol/L 9 - 17 mmol/L [employer] Phone: AST [Catalytic activity/Vol] 17 U/L <32 [employer] Phone: Bilirubin [Mass/Vol] 0.50 mg/dL 0.30 - 1.20 mg/dL [employer] Phone: Calcium [Mass/Vol] 9.3 mg/dL 8.6 - 10. 4 mg/dL [employer] Phone: Chloride [Moles/Vol] 105 mmol/L 98 - 10 7 mmol/L [employer] Phone: CO2 [Moles/Vol] 22 mmol/L 20 - 31 mmol/L [employer] Phone: Creatinine [Mass/Vol] 0.6 mg/dL 0.50 - 0.90 mg/dL [employer] Phone: Free PSA/Total PSA [Mass fraction] 7.3 g/dL 6.4 - 8.3 g/dL [employer] Phone: GFR >60 >60 mL/min [employer] Phone: GFR Non- >60 >60 mL/min [employer] Phone: GFR/1.73 sq M.predicted MDRD (S/P/Bld) [Vol rate/Area] [employer] Phone: Comment on above: Average GFR for 20-2 9 years old: 116 mL/min/1.73sq m Chronic Kidney Disease: <60 mL/min/1.73sq m Kidney failure: <15 mL/min/1.73sq m eGFR calculated using average adult body mass. Additional eGFR calculator available at: http://www.IroFit.Citymart - [employer] to transform cities/multiple_crcl_2011.htm GFR/1.73 sq M.predicted MDRD (S/P/Bld) [Vol rate/Area] NOT REPORTED [employer] Phone: Glucose [Mass/Vol] 102 mg/dL High 70 - 99 mg/dL [employer] Phone: Potassium [Moles/Vol] 3.9 mmol/L 3.7 - 5.3 mmol/L [employer] Phone: Sodium [Moles/Vol] 139 mmol/L 135 - 144 mmol/L [employer] Phone: Urea nitrogen (BldV) [Mass/Vol] 15 mg/dL 6 - 20 mg/dL [employer] Phone: Urea nitrogen/Creatinine (Bld) [Mass ratio] 25 High [employer] Phone: HCG Qualitative, SerumOrdere d By: Bea Jacobs on 12-10-2020 hCG Qual Negative NEGATIVE [employer] Phone: Comment on above: Specimens with hCG l evels near the threshold of the test (25 mIU/mL) may give a negative or indeterminate result. In such cases, another test should be performed with a new specimen in 48-72 hours. If early is suspected clinically in this setting, correlation with quantitative serum b-hCG level is suggested. logtrust has confirmed the use of plasma for this test. This has not been cleared or approved by the U.S. Food and Drug Administration. The FDA has determined that such clearance is not necessary. No Panel InformationOrdered By: Bea Jacobs on 12-10-2020 Interpretation and review of laboratory results Abnormal [employer] Phone: [employer] Phone: Acetaminophen Levelon 2020 Acetaminophen [Mass/Vol] <5 Low 10 - 30 ug/mL [employer] Phone: Basic Metabolic Panelon 03-3 Anion gap [Moles/Vol] 11 mmol/L 9 - 17 mmol/L [employer] Phone: Bun/Cre Ratio 27 High [employer] Work Phone: Calcium [Mass/Vol] 9.4 mg/dL 8.6 - 10. 4 mg/dL [employer] Phone: Chloride [Moles/Vol] 104 mmol/L 98 - 10 7 mmol/L [employer] Phone: CO2 [Moles/Vol] 26 mmol/L 20 - 31 mmol/L [employer] Phone: Creatinine [Mass/Vol] 0.71 mg/dL 0.50 - 0.90 mg/dL [employer] Phone: GFR >60 >60 mL/min [employer] Phone: GFR Non- >60 >60 mL/min [employer] Phone: GFR/1.73 sq M predicted among non-blacks MDRD (S/P/Bld) [Vol rate/Area] NOT REPORTED [employer] Phone: GFR/1.73 sq M predicted among non-blacks MDRD (S/P/Bld) [Vol rate/Area] [employer] Phone: Comment on above: Average GFR for 20-2 9 years old: 116 mL/min/1.73sq m Chronic Kidney Disease: <60 mL/min/1.73sq m Kidney failure: <15 mL/min/1.73sq m eGFR calculated using average adult body mass. Additional eGFR calculator available at: http://www.IroFit.Citymart - [employer] to transform cities/multiple_crcl_2012.htm Glucose [Mass/Vol] 113 mg/dL High 70 - 99 mg/dL [employer] Phone: Potassium [Moles/Vol] 4.0 mmol/L 3.7 - 5.3 mmol/L [employer] Phone: Sodium [Moles/Vol] 141 mmol/L 135 - 144 mmol/L [employer] Phone: Urea nitrogen [Mass/Vol] 19 mg/dL 6 - 20 mg/dL [employer] Phone: CBC Auto Differentialon 03-3 0-2020 Basophils (Bld) [#/Vol] 0.10 10*3/uL [employer] Phone: Basophils/100 WBC (Bld) 1 % 0 - 2 % [facility] Work Phone: Differential Type YES [employer] [facility] Work Phone: Eosinophils (Bld) [#/Vol] 0.10 10*3/uL [employer] Phone: Eosinophils/100 WBC (Bld) 1 % 0 - 5 % [employer] Phone: Erythrocyte distribution width (RBC) [Ratio] 13.3 % 12.1 - 15.2 % [employer] Phone: Hematocrit (Bld) [Volume fraction] 40.7 % 36 - 46 % [employer] Phone: Hemoglobin (Bld) [Mass/Vol] 13.8 g/dL 12.0 - 16.0 g/dL [employer] Phone: Lymphocytes (Bld) [#/Vol] 3.10 10*3/uL [employer] Phone: Lymphocytes/100 WBC (Bld) 28 % 15 - 40 % [employer] Phone: MCH (RBC) [Entitic mass] 30.1 pg 26 - 34 pg [employer] Phone: MCHC (RBC) [Mass/Vol] 33.8 g/dL 31 - 3 7 g/dL [employer] Phone: MCV (RBC) [Entitic vol] 88.8 fL 80 - 100 fL [employer] Phone: Monocytes (Bld) [#/Vol] 0.50 10*3/uL [employer] Phone: Monocytes/100 WBC (Bld) 5 % 4 - 8 % [facility] Phone: Platelet mean volume (Bld) [Entitic vol] NOT REPORTED 6.0 - 12.0 fL [employer] Phone: Platelets (Bld) [#/Vol] 203 10*3/uL [employer] Work Phone: Platelets (Bld) [#/Vol] NOT REPORTED [employer] Phone: RBC (Bld) [#/Vol] 4.59 10*6/uL 4.0 - 5.2 m/uL [employer] Phone: RBC morphology finding Nom (Bld) NOT REPORTED [employer] Phone: Segmented neutrophils/100 WBC (Bld) 65 % 47 - 75 % [employer] Phone: Segs Absolute 7.30 High [employer] [facility] Work Phone: WBC (Bld) [#/Vol] 11.0 10*3/uL [employer] Phone: WBC (Bld) [#/Vol] NOT REPORTED per 100 WBC [employer] Phone: WBC Morphology NOT REPORTED [employer] [facility] Work Phone: COVID-19, Rapidon 08-01-2020 SARS-CoV-2, Rapid Not Detected Not Detected [employer] Phone: Comment on above: Rapid NAAT: The [...] management decisions. Fact sheet for Healthcare Providers: https://www.fda.gov/media/176003/download Fact sheet for Patients: https://www.fda.gov/media/477361/download Methodology: Isothermal Nucleic Acid Amplification Specimen Description .NASOPHARYNGEAL SWAB [employer] Phone: Ethanolon 08-01-2020 Ethanol [Mass/Vol] mg/dL <10 mg/dL [employer] Phone: Ethanol percent <0.010 % [facility] Work Phone: HCG Qualitative, Serumon hCG Qual Negative NEGATIVE [employer] Phone: Comment on above: Specimens with hCG l evels near the threshold of the test (25 mIU/mL) may give a negative or indeterminate result. In such cases, another test should be performed with a new specimen in 48-72 hours. If early is suspected clinically in this setting, correlation with quantitative serum b-hCG level is suggested. logtrust has confirmed the use of plasma for this test. This has not been cleared or approved by the U.S. Food and Drug Administration. The FDA has determined that such clearance is not necessary. Otheron 08-01-2020 Immature granulocytes (Bld) [#/Vol] NOT REPORTED [employer] Phone: Interpretation and review of laboratory results Abnormal [employer] Phone: Salicylateon 08-01-2020 Salicylate Lvl <1 Low 3 - 10 mg/dL [employer] Phone: TSH with Reflexon 08-01-2020 TSH Qn 3.16 m[IU]/L [employer] Phone: Urine Drug Screenon 08-02-19 21 Amphetamine Screen, Ur Negative NEGATIVE [facility] Work Phone: Comment on above: (Positive cutoff 500 ng/mL) Barbiturate Screen, Ur Negative NEGATIVE [facility] Work Phone: Comment on above: (Positive cutoff 200 ng/mL) Benzodiazepine Screen, Urine Negative NEGATIVE [facility] Work Phone: Comment on above: (Positive cutoff 150 ng/mL) Buprenorphine Urine NOT REPORTED NEGATIVE [facility] Work Phone: Cannabinoid Scrn, Ur Negative NEGATIVE [facility] Work Phone: Comment on above: (Positive cutoff 50 ng/mL) Cocaine Metabolite, Urine Negative NEGATIVE [facility] Work Phone: Comment on above: (Positive cutoff 150 ng/mL) MDMA, Urine NOT REPORTED NEGATIVE [facility] Work Phone: Methadone Screen, Urine Negative NEGATIVE [facility] Work Phone: Comment on above: (Positive cutoff 200 ng/mL) Methamphetamine, Urine Negative NEGATIVE [facility] Work Phone: Comment on above: (Positive cutoff 500 ng/mL) Opiates, Urine Negative NEGATIVE [facility] Work Phone: Comment on above: (Positive cutoff 100 ng/mL) Oxycodone Screen, Ur Negative NEGATIVE [facility] Work Phone: Comment on above: (Positive cutoff 100 ng/mL) Phencyclidine, Urine Negative NEGATIVE [facility] Work Phone: Comment on above: (Positive cutoff 25 ng/mL) Propoxyphene, Urine Negative NEGATIVE [facility] Work Phone: Comment on above: (Positive cutoff 300 ng/mL) Test Information NOT REPORTED [facility] Work Phone: Tricyclic Antidepressants, Urine Negative NEGATIVE [facility] Work Phone: Comment on above: (Positive cutoff 300 ng/mL) Drug screen results are to be used for medical purposes only. All positive results are unconfirmed. Testing for employment or legal uses should be sent to a reference laboratory for confirmation. CBC Auto Differentialon 01-03 Basophils (Bld) [#/Vol] 0.00 10*3/uL [place] Basophils/100 WBC (Bld) 1 % 0 - 2 % [place] Differential Type YES [place] Eosinophils (Bld) [#/Vol] 0.10 10*3/uL [place] Eosinophils/100 WBC (Bld) 2 % 0 - 5 % [place] Erythrocyte distribution width (RBC) [Ratio] 13.4 % 12.1 - 15.2 % [place] Hematocrit (Bld) [Volume fraction] 44.9 % 36 - 46 % [place] Hemoglobin (Bld) [Mass/Vol] 15.0 g/dL 12 - 16 g/dL [place] Lymphocytes (Bld) [#/Vol] 1.30 10*3/uL [place] Lymphocytes/100 WBC (Bld) 17 % 15 - 40 % [place] MCH (RBC) [Entitic mass] 29.7 pg 26 - 34 pg [place] MCHC (RBC) [Mass/Vol] 33.4 g/dL 31 - 3 7 g/dL [place] MCV (RBC) [Entitic vol] 88.9 fL 80 - 100 fL [place] Monocytes (Bld) [#/Vol] 0.40 10*3/uL [place] Monocytes/100 WBC (Bld) 5 % 4 - 8 % [place] Platelet mean volume (Bld) [Entitic vol] NOT REPORTED 6 - 12 fL [place] Platelets (Bld) [#/Vol] NOT REPORTED [place] Platelets (Bld) [#/Vol] 231 10*3/uL [place] RBC (Bld) [#/Vol] 5.05 10*6/uL 4 - 5.2 m/uL [place] RBC morphology finding Nom (Bld) NOT REPORTED [place] Segmented neutrophils/100 WBC (Bld) 75 % 47 - 75 % [place] Segs Absolute 5.80 [place] WBC (Bld) [#/Vol] 7.7 10*3/uL [place] WBC (Bld) [#/Vol] NOT REPORTED per 100 WBC [place] WBC Morphology NOT REPORTED [place] Comprehensive Metabolic Pane nick 01-18-2020 Albumin [Mass/Vol] 4.6 g/dL 3.5 - 5.2 g/dL [place] Albumin/Globulin [Mass ratio] NOT REPORTED [place] ALP [Catalytic activity/Vol] 101 U/L 35 - 104 U/L [place] ALT [Catalytic activity/Vol] 21 U/L 5 - 33 U/L [place] Anion gap [Moles/Vol] 10 mmol/L 9 - 17 mmol/L [place] AST [Catalytic activity/Vol] 20 U/L <32 [place] Bilirubin Ql (U) 0.55 mg/dL 0.3 - 1.2 mg/dL [place] Bun/Cre Ratio 18 [place], [place] Calcium [Mass/Vol] 9.2 mg/dL 8.6 - 10. 4 mg/dL [place] Chloride [Moles/Vol] 106 mmol/L 98 - 10 7 mmol/L [place] CO2 [Moles/Vol] 24 mmol/L 20 - 31 mmol/L [place] Creatinine [Mass/Vol] 0.74 mg/dL 0.5 - 0.9 mg/dL [place] GFR >60 >60 mL/min [place] GFR Non- >60 >60 mL/min [place] GFR/1.73 sq M predicted among non-blacks MDRD (S/P/Bld) [Vol rate/Area] [place] Comment on above: Average GFR for 20-2 9 years old: 116 mL/min/1.73sq m Chronic Kidney Disease: <60 mL/min/1.73sq m Kidney failure: <15 mL/min/1.73sq m eGFR calculated using average adult body mass. Additional eGFR calculator available at: http://www.Meetmeals/multiple_crcl_2012.htm GFR/1.73 sq M predicted among non-blacks MDRD (S/P/Bld) [Vol rate/Area] NOT REPORTED [place] Glucose [Mass/Vol] 124 mg/dL High 70 - 99 mg/dL [place] Interpretation and review of laboratory results Abnormal [place] Potassium [Moles/Vol] 4.1 mmol/L 3.7 - 5.3 mmol/L [place] Protein [Mass/Vol] 8.5 g/dL High 6.4 - 8.3 g/dL [place] Sodium [Moles/Vol] 140 mmol/L 135 - 144 mmol/L [place] Urea nitrogen [Mass/Vol] 13 mg/dL 6 - 20 mg/dL [place] Otheron 01-18-2020 Immature granulocytes (Bld) [#/Vol] NOT REPORTED 0 % [place] TSH with Reflexon 01-18-2020 TSH Qn 1.30 m[IU]/L [place] Basic Metabolic Panel w/ Ref stephy to MGon 04-06-2019 Anion gap [Moles/Vol] 13 mmol/L 9 - 17 mmol/L [place] Bun/Cre Ratio 19 [place], [place] Calcium [Mass/Vol] 9.7 mg/dL 8.6 - 10. 4 mg/dL [place] Chloride [Moles/Vol] 102 mmol/L 98 - 10 7 mmol/L [place] CO2 [Moles/Vol] 23 mmol/L 20 - 31 mmol/L [place] Creatinine [Mass/Vol] 0.58 mg/dL 0.5 - 0.9 mg/dL [place] GFR >60 >60 mL/min [place] GFR Non- >60 >60 mL/min [place] GFR/1.73 sq M predicted among non-blacks MDRD (S/P/Bld) [Vol rate/Area] NOT REPORTED [place] GFR/1.73 sq M predicted among non-blacks MDRD (S/P/Bld) [Vol rate/Area] [place] Comment on above: Average GFR for 20-2 9 years old: 116 mL/min/1.73sq m Chronic Kidney Disease: <60 mL/min/1.73sq m Kidney failure: <15 mL/min/1.73sq m eGFR calculated using average adult body mass. Additional eGFR calculator available at: http://www.Meetmeals/multiple_crcl_2012.htm Glucose [Mass/Vol] 115 mg/dL High 70 - 99 mg/dL [place] Potassium [Moles/Vol] 3.9 mmol/L 3.7 - 5.3 mmol/L [place] Sodium [Moles/Vol] 138 mmol/L 135 - 144 mmol/L [place] Urea nitrogen [Mass/Vol] 11 mg/dL 6 - 20 mg/dL [place] CBC Auto Differentialon 12-0 -2018 Basophils (Bld) [#/Vol] 0.00 10*3/uL [place] Basophils/100 WBC (Bld) 0 % 0 - 2 % [place] Differential Type YES [place] Eosinophils (Bld) [#/Vol] 0.10 10*3/uL [place] Eosinophils/100 WBC (Bld) 2 % 0 - 5 % [place] Erythrocyte distribution width (RBC) [Ratio] 12.7 % 12.1 - 15.2 % [place] Hematocrit (Bld) [Volume fraction] 46.4 % High 36 - 46 % [place] Hemoglobin (Bld) [Mass/Vol] 15.5 g/dL 12 - 16 g/dL [place] Lymphocytes (Bld) [#/Vol] 1.30 10*3/uL [place] Lymphocytes/100 WBC (Bld) 20 % 15 - 40 % [place] MCH (RBC) [Entitic mass] 29.7 pg 26 - 34 pg [place] MCHC (RBC) [Mass/Vol] 33.4 g/dL 31 - 3 7 g/dL [place] MCV (RBC) [Entitic vol] 89.0 fL 80 - 100 fL [place] Monocytes (Bld) [#/Vol] 0.50 10*3/uL [place] Monocytes/100 WBC (Bld) 8 % 4 - 8 % [place] Platelet mean volume (Bld) [Entitic vol] NOT REPORTED 6 - 12 fL [place] Platelets (Bld) [#/Vol] NOT REPORTED [place] Platelets (Bld) [#/Vol] 194 10*3/uL [place] RBC (Bld) [#/Vol] 5.22 10*6/uL High 4 - 5.2 m/uL [place] RBC morphology finding Nom (Bld) NOT REPORTED [place] Segmented neutrophils/100 WBC (Bld) 70 % 47 - 75 % [place] Segs Absolute 4.40 [place] WBC (Bld) [#/Vol] 6.4 10*3/uL [place] WBC (Bld) [#/Vol] NOT REPORTED per 100 WBC [place] WBC Morphology NOT REPORTED [place] D-Dimer, Quantitativeon 12- D-Dimer, Quant 0.21 [place], [place] Comment on above: Elevated levels of [...] HCG Qualitative, Serumon hCG Qual Negative NEGATIVE [place] Comment on above: Specimens with hCG l evels near the threshold of the test (25 mIU/mL) may give a negative or indeterminate result. In such cases, another test should be performed with a new specimen in 48-72 hours. If early is suspected clinically in this setting, correlation with quantitative serum b-hCG level is suggested. logtrust has confirmed the use of plasma for this test. This has not been cleared or approved by the U.S. Food and Drug Administration. The FDA has determined that such clearance is not necessary. Otheron 04-06-2019 Immature granulocytes (Bld) [#/Vol] NOT REPORTED [facility] [place] Interpretation and review of laboratory results Abnormal [facility] [place] XR CHEST STANDARD (2 VW)on 1 06-07-2018 Negative chest. [employer] [facility] [place] EXAM: XR CHEST (2 VW ) HISTORY: Reason for exam:->SOB COMPARISON: Chest 12/05/2018. TECHNIQUE: 2 views chest FINDINGS: Heart size normal. Lungs clear. Bony thorax and upper abdomen normal. [facility] [place] Will[place], Mh[employer] Incoming Radiant Results From [employer] - 04/06/2019 2:50 PM EST EXAM: XR CHEST (2 VW) HISTORY: Reason for exam:->SOB COMPARISON: Chest 12/05/2018. TECHNIQUE: 2 views chest FINDINGS: Heart size normal. Lungs clear. Bony thorax and upper abdomen normal. IMPRESSION: Negative chest. [facility] Comprehensive Metabolic Pane nick 11-12-2017 Alanine aminotransferase (ALT) 22 U/L Normal 14-65 [facility] Comment on above: This test result [...] ####Unless otherwise noted, all testing performed by [facility], [place] [id number]: [id number] Director: Diego Joy, M.D. Albumin 3.7 g/dL Normal 3.2-5.2 [facility] Comment on above: Performed By: #### C MET ####Unless otherwise noted, all testing performed by [address] [id number]: [id number] Director: Diego Hamilton M.D. Alkaline phosphatase (ALP) 99 U/L Normal 40-140 [facility] Comment on above: Performed By: #### C MET ####Unless otherwise noted, all testing performed by [address] [id number]: [id number] Director: Diego Hamilton M.D. Aspartate aminotransferase (AST) 11 U/L Normal 0-45 [facility] Comment on above: This test result [...] ####Unless otherwise noted, all testing performed by [address] [id number]: [id number] Director: Diego Hamilton M.D. Bilirubin (total) 0.2 mg/dL Low 0.3-1.2 [facility] Comment on above: Performed By: #### C MET ####Unless otherwise noted, all testing performed by [address] [phone]: [id number] Director: Diego Hamilton M.D. Calcium 9.0 mg/dL Normal 8.4-10.2 [facility] Comment on above: Performed By: #### C MET ####Unless otherwise noted, all testing performed by [place] [id number]: [id number] Director: Diego Hamilton M.D. Chloride 109 mmol/L High 98-108 [facility] Comment on above: Performed By: #### C MET ####Unless otherwise noted, all testing performed by [address]CLIA: [id number] Director: Diego Hamilton M.D. CO2 28 mmol/L Normal 21-32 [facility] Comment on above: Performed By: #### C MET ####Unless otherwise noted, all testing performed by [place] [id number]: [id number] Director: Diego Hamilton M.D. Creatinine 0.94 mg/dL Normal 0.40-1.10 [facility] Comment on above: Performed By: #### C MET ####Unless otherwise noted, all testing performed by [place] [id number]: [id number] Director: Diego Hamilton M.D. eGFR (black) mL/min/{1.73_m2} Normal [facility] Comment on above: GFR Calc Result Comment: Afri can Bangl[place]hi GFR Calc Performed By: #### C MET ####Unless otherwise noted, all testing performed by [place] [phone]: [id number] Director: Diego Hamilton M.D. eGFR (non-black) mL/min/{1.73_m2} Normal [facility] Comment on above: Non- GFR Calc [...] ####Unless otherwise noted, all testing performed by [address] [phone]: [id number] Director: Diego Hamilton M.D. Glucose mass conc 102 mg/dL High 70-99 [facility] Comment on above: This test [...] ####Unless otherwise noted, all testing performed by [address] [phone]: [id number] Director: Diego Hamilton M.D. Interpretation and review of laboratory results Abnormal Invalid Interpretation Code [facility] Potassium molar conc 4.0 mmol/L Normal 3.5-5.1 [facility] Comment on above: Performed By: #### C MET ####Unless otherwise noted, all testing performed by [address] [phone]: [id number] Director: Diego Hamilton M.D. Protein 7.0 g/dL Normal 6.0-8.0 [facility] Comment on above: Performed By: #### C MET ####Unless otherwise noted, all testing performed by [address] [phone]: [id number] Director: Diego Hamilton M.D. Sodium 143 mmol/L Normal 135-145 [facility] Comment on above: Performed By: #### C MET ####Unless otherwise noted, all testing performed by [address] [phone]: [id number] Director: Diego Hamilton M.D. Urea nitrogen 17 mg/dL Normal 8-25 [facility] Comment on above: Performed By: #### C MET ####Unless otherwise noted, all testing performed by [address] [phone]: [id number] Director: Diego Hamilton M.D. Preg test, Urine Qualon 11-02 Preg Test, Urine Qual Negative Invalid Interpretation Code Negative [facility] Comment on above: Rapid test procedura [...] test) Ql (U) Negative Normal Negative [facility] Comment on above: Result Comment: Rapi [...] ####Unless otherwise noted, all testing performed by [address]CLIA: [id number] Director: Diego Hamilton M.D. Urinalysison 11-12-2017 Bilirubin, Urine Negative Normal NEG;NEGATIV E [facility] Comment on above: Performed By: #### P REGUR, UA ####Unless otherwise noted, all testing performed by [address]CLIA: [id number] Director: Diego Hamilton M.D. Blood, Urine Negative Normal NEG;NEGATIV E [facility] Comment on above: Performed By: #### P REGUR, UA ####Unless otherwise noted, all testing performed by [address] [phone]: [id number] Director: Diego Hamilton M.D. Character Clear Normal [facility] Comment on above: Performed By: #### P REGUR, UA ####Unless otherwise noted, all testing performed by [place] [phone]: [id number] Director: Diego Hamilton M.D. Nitrite, Urine Negative Normal NEG;NEGATIV E [facility] Comment on above: Performed By: #### P REGUR, UA ####Unless otherwise noted, all testing performed by [address] [phone]: [id number] Director: Diego Hamilton M.D. Protein, Urine 30 mg/dL High < 30 [facility] Comment on above: Performed By: #### P REGUR, UA ####Unless otherwise noted, all testing performed by [address] [phone]: [id number] Director: Diego Hamilton M.D. RBCs, Urine < 1 Invalid Interpretation Code 0 - 5 /HPF [facility] Specific [place] 1.024 1 Invalid Interpretation Code 1.003 - 1.029 [facility] Squamous Epithelial 4 /HPF Invalid Interpretation Code 0 - 40 [facility] Urine, color Yellow Normal [facility] Comment on above: Performed By: #### P REGUR, UA ####Unless otherwise noted, all testing performed by [address] [phone]: [id number] Director: Diego Hamilton M.D. Urine, glucose presence Negative Normal NEG; NEGATIV E [facility] Comment on above: Performed By: #### P REGUR, UA ####Unless otherwise noted, all testing performed by [address] [phone]: [id number] Director: Diego Hamilton M.D. Urine, ketones presence Negative Invalid Interpretation Code NEG;NEGATIV E mg/dL [facility] Urine, leukocyte esterase presence Negative Invalid Interpretation Code Negative [facility] Urine, pH 5.0 [pH] Normal 4.5-8.0 [facility] Comment on above: Performed By: #### P REGUR, UA ####Unless otherwise noted, all testing performed by [address] [phone]: [id number] Director: Diego Hamilton M.D. Urobilinogen, Urine < 2.0 Normal <2 [facility] Comment on above: Performed By: #### P REGUR, UA ####Unless otherwise noted, all testing performed by [address] [phone]: [id number] Director: Diego Hamilton M.D. WBCs, Urine 1 /HPF Invalid Interpretation Code 0 - 5 [facility] Urinalysis, Routineon 2017 Ketone,Urine Negative Normal NEG;NEGATIV E [facility] Comment on above: Performed By: #### P REGUR, UA ####Unless otherwise noted, all testing performed by [address] [phone]: [id number] Director: Diego Hamilton M.D. Leuk.Esterase,Urine Negative Normal Negative [facility] Comment on above: Performed By: #### P REGUR, UA ####Unless otherwise noted, all testing performed by [address] [phone]: [id number] Director: Diego Hamilton M.D. Specific [place],Urine 1.024 Normal 1.003-1.029 [facility] Comment on above: Performed By: #### P REGUR, UA ####Unless otherwise noted, all testing performed by [address] [phone]: [id number] Director: Diego Hamilton M.D. Squamous Epithelial 4 /HPF Normal 0-40 [facility] Comment on above: Performed By: #### P REGUR, UA ####Unless otherwise noted, all testing performed by [address] [phone]: [id number] Director: Diego Hamilton M.D. Urine, erythrocytes in sediment by area /[HPF] Normal 0-5 [facility] Comment on above: Performed By: #### P REGUR, UA ####Unless otherwise noted, all testing performed by [address] [phone]: [id number] Director: Diego Hamilton M.D. WBC,Urine 1 /HPF Normal 0-5 [facility] Comment on above: Performed By: #### P REGUR, UA ####Unless otherwise noted, all testing performed by [place] [phone]: [id number] Director: Diego Hamilton M.D. CBC and Differentialon 11-11 Basophils Auto #/vol (Bld) 0.0 K/mcL Invalid Interpretation Code 0 - 0.2 [facility] Basophils/100 WBC Auto (Bld) 0.3 % Normal [facility] Comment on above: Performed By: #### C BCDIF, EXCEP, LIPASE ####Unless otherwise noted, all testing performed by [address] [phone]: [id number] Director: Diego Hamilton M.D. Eosinophils 0.1 K/mcL Invalid Interpretation Code 0 - 0.5 [facility] Eosinophils/100 leukocytes 0.6 % Normal [facility] Comment on above: Performed By: #### C BCDIF, EXCEP, LIPASE ####Unless otherwise noted, all testing performed by [place] [phone]: [id number] Director: Diego Hamilton M.D. Erythrocyte distribution width Auto Ratio (RBC) 13.2 % Normal 10.0-14.4 [facility] Comment on above: Performed By: #### C BCDIF, EXCEP, LIPASE ####Unless otherwise noted, all testing performed by [place] [phone]: [id number] Director: Diego Hamilton M.D. Erythrocytes (RBC) 5.13 M/mcL High 3.7 - 5.0 [facility] Hematocrit (HCT) 47.0 % High 34.4-44.8 [facility] Comment on above: Performed By: #### C BCDIF, EXCEP, LIPASE ####Unless otherwise noted, all testing performed by [place] [phone]: [id number] Director: Diego Hamilton M.D. Hemoglobin mass conc (Bld) 15.3 g/dL Normal 11.6-15.4 [facility] Comment on above: Performed By: #### C BCDIF, EXCEP, LIPASE ####Unless otherwise noted, all testing performed by [place] [phone]: [id number] Director: Diego Hamilton M.D. Lymphocytes 1.5 K/mcL Invalid Interpretation Code 1.0 - 3.7 [facility] Lymphocytes/100 leukocytes 12.1 % Normal [facility] Comment on above: Performed By: #### C BCDIF, EXCEP, LIPASE ####Unless otherwise noted, all testing performed by [address] [phone]: [id number] Director: Diego Hamilton M.D. MCH 29.8 pg Normal 27.9-33.9 [facility] Comment on above: Performed By: #### C BCDIF, EXCEP, LIPASE ####Unless otherwise noted, all testing performed by [address] [phone]: [id number] Director: Diego Hamilton M.D. MCHC mass conc (RBC) 32.6 g/dL Low 33.1-35.1 [facility] Comment on above: Performed By: #### C BCDIF, EXCEP, LIPASE ####Unless otherwise noted, all testing performed by [address] [phone]: [id number] Director: Diego Hamilton M.D. MCV 91.5 fL Normal 82.6-98.9 [facility] Comment on above: Performed By: #### C BCDIF, EXCEP, LIPASE ####Unless otherwise noted, all testing performed by [address] [phone]: [id number] Director: Diego Hamilton M.D. Monocytes 0.6 K/mcL Invalid Interpretation Code 0.1 - 0.6 [facility] Monocytes/100 leukocytes 5.1 % Normal [facility] Comment on above: Performed By: #### C BCDIF, EXCEP, LIPASE ####Unless otherwise noted, all testing performed by [address] [phone]: [id number] Director: Diego Hamilton M.D. Neutrophils 10.0 K/mcL High 1.2 - 6.9 [facility] Platelet mean volume (PMV) 11.1 fL High 7.0-10.6 [facility] Comment on above: Performed By: #### C BCDIF, EXCEP, LIPASE ####Unless otherwise noted, all testing performed by [address] [phone]: [id number] Director: Diego Hamilton M.D. Platelets 235 K/mcL Invalid Interpretation Code 162 - 402 [facility] Segmented Neut 81.9 % Invalid Interpretation Code [facility] WBC (Leukocytes) 12.2 K/mcL High 3.4 - 10.6 [facility] CBC with Diffon 11-11-2017 Basophils Auto #/vol (Bld) 0.0 K/mcL Normal 0-0.2 [facility] Comment on above: Performed By: #### C BCDIF, EXCEP, LIPASE ####Unless otherwise noted, all testing performed by [address] [phone]: [id number] Director: Diego Hamilton M.D. Eosinophils 0.1 K/mcL Normal 0-0.5 [facility] Comment on above: Performed By: #### C BCDIF, EXCEP, LIPASE ####Unless otherwise noted, all testing performed by [address] [phone]: [id number] Director: Diego Hamilton M.D. Erythrocytes (RBC) 5.13 M/mcL High 3.7-5.0 [facility] Comment on above: Performed By: #### C BCDIF, EXCEP, LIPASE ####Unless otherwise noted, all testing performed by [address] [phone]: [id number] Director: Diego Hamilton M.D. Lymphocytes 1.5 K/mcL Normal 1.0-3.7 [facility] Comment on above: Performed By: #### C BCDIF, EXCEP, LIPASE ####Unless otherwise noted, all testing performed by [address] [phone]: [id number] Director: Diego Hamilton M.D. Monocytes 0.6 K/mcL Normal 0.1-0.6 [facility] Comment on above: Performed By: #### C BCDIF, EXCEP, LIPASE ####Unless otherwise noted, all testing performed by [place] [phone]: [id number] Director: Diego Hamilton M.D. Neutrophils 10.0 K/mcL High 1.2-6.9 [facility] Comment on above: Performed By: #### C BCDIF, EXCEP, LIPASE ####Unless otherwise noted, all testing performed by [address] [phone]: [id number] Director: Diego Hamilton M.D. Platelets 235 K/mcL Normal 162-402 [facility] Comment on above: Performed By: #### C BCDIF, EXCEP, LIPASE ####Unless otherwise noted, all testing performed by [address] [phone]: [id number] Director: Diego Hamilton M.D. Segmented Neut % 81.9 % Normal [facility] Comment on above: Performed By: #### C BCDIF, EXCEP, LIPASE ####Unless otherwise noted, all testing performed by [address] [phone]: [id number] Director: Diego Hamilton M.D. WBC (Leukocytes) 12.2 K/mcL High 3.4-10.6 [facility] Comment on above: Performed By: #### C BCDIF, EXCEP, LIPASE ####Unless otherwise noted, all testing performed by [address] [phone]: [id number] Director: Diego Hamilton M.D. Exception Noticeon 8 Exception Notice Complete Metabolic Panel cancelled due to hemolysis. Will be redrawn. Normal [facility] Comment on above: Performed By: #### C BCDIF, EXCEP, LIPASE ####Unless otherwise noted, all testing performed by [address] [phone]: [id number] Director: Diego Hamilton M.D. Lipaseon 11-11-2017 Lipase 52 U/L Low 73-393 [facility] Comment on above: Performed By: #### C BCDIF, EXCEP, LIPASE ####Unless otherwise noted, all testing performed by [address] [phone]: [id number] Director: Diego Hamilton M.D. US TRANSVAGINAL WITH [...] amount of free fluid, likely physiologic. Normal [facility] [place] Social History Date Type Detail Facility Start: 07-29-2023 Sex Assigned At Female F [facility] Start: 07-29-2023 Tobacco Comment Uses [employer] devices. [facility] Start: 04-19-2023 [facility] Start: 06-16-2022 Tobacco smoking status NHIS Ex-smoker [employer] Start: 06-16-2022 Alcohol Comment occ. Some tonight [employer] Work Phone: Start: 11-29-2021 Tobacco Comment 5cigs/day 2 [employer] Phone: Start: 11-19-2021 End: 06-16-2022 Exposure to SARS-CoV-2 (event) Not sure [facility] Start: 08-08-2020 Tobacco smoking status Heavy tobacco smoker (finding) [facility] Start: 01-04-2020 End: 06-16-2022 Alcohol intake Current drinker of alcohol (finding) [facility] Start: 11-01-2019 End: 07-29-2023 Tobacco use and exposure Never used [employer] Start: 04-06-2019 End: 07-29-2023 Tobacco smoking status NHIS Current every day smoker [employer] Start: 04-06-2019 End: 07-29-2023 Cigarettes smoked current (pack per day) - Reported [email or web address] Start: 04-06-2019 End: 07-29-2023 [facility] intake [facility] Start: 04-06-2019 End: 12-19-2022 [facility]: 12-05-2018 [facility] Start: 1995 Sex Assigned At [facility] Tobacco smoking status [facility] History of tobacco use Cigarette Smoker [facility] Exposure to SARS-CoV-2 (event) Unable to assess [place], [place] Exposure to SARS-CoV-2 (event) Yes [place] History of tobacco use Current smoker JULIANO GALLO [facility] Work Phone: Tobacco smoking status NHIS Tobacco smoking consumption unknown [facility] Within the past 12 months we worried whether our food would run out before we got money to buy more. Never True [facility] NEGATED: Highlighted rowStart: NINF History of tobacco use Passive smoker [facility] Vital Signs Date Time Vital Sign Value Performing Clinician Faci lity 07-29-2023 13:08-0400 Body height 162.6 cm Dana Mcdonough MD Work Phone: [facility] 07-29-2023 13:08-0400 Body mass index (BMI) [Ratio] 38.21 kg/m2 Dana Mcdonough MD Work Phone: [facility] 07-29-2023 13:08-0400 Body weight 100.97 kg Dana Mcdonough MD Work Phone: [facility] 07-29-2023 13:08-0400 Diastolic blood pressure 64 mm[Hg] [facility] 07-29-2023 13:08-0400 Heart rate 88 /min Dana Mcdonough MD Work Phone: [facility] 07-29-2023 13:08-0400 Systolic blood pressure 105 mm[Hg] Dana Mcdonough MD Work Phone: [facility] 12-19-2022 10:04-0400 Body mass index (BMI) [Ratio] 39.51 kg/m2 Matthew Tafoya MD Work Phone: [facility] [employer] 12-19-2022 10:04-0400 Body temperature 98.29 [degF] Matthew Tafoya MD Work Phone: [facility] 12-19-2022 10:04-0400 Body weight 104.42 kg Matthew Tafoya MD Work Phone: [facility] 12-19-2022 10:04-0400 Diastolic blood pressure 82 mm[Hg] Matthew Tafoya MD Work Phone: [facility] 12-19-2022 10:04-0400 Heart rate 106 /min Matthew Tafoya MD Work Phone: [facility] 12-19-2022 10:04-0400 Respiratory rate 16 /min Matthew Tafoya MD Work Phone: [facility] 12-19-2022 10:04-0400 SaO2% (BldA) [Mass fraction] 95 % Matthew Tafoya MD Work Phone: [facility] 12-19-2022 10:04-0400 Systolic blood pressure 119 mm[Hg] Matthew Tafoya MD Work Phone: [facility] 12-06-2022 13:24-0400 Body temperature 98.42 [degF] Graham Choe [facility] 12-06-2022 13:24-0400 Diastolic blood pressure 75 mm[Hg] Graham Choe [facility] 12-06-2022 13:24-0400 Heart rate 95 /min Graham Choe [facility] 12-06-2022 13:24-0400 Mean blood pressure 95 mm[Hg] Graham Choe [facility] 12-06-2022 13:24-0400 Respiratory rate 18 /min Graham Choe [facility] 12-06-2022 13:24-0400 SaO2% (BldA) [Mass fraction] 96 % Graham Choe [facility] 12-06-2022 13:24-0400 Systolic blood pressure 136 mm[Hg] Graham Choe [facility] 06-16-2022 01:37-0500 Body height 162.6 cm Hoang Santos MD Work Phone: [facility] [employer] 06-16-2022 01:37-0500 Body mass index (BMI) [Ratio] 39.94 kg/m2 Hoang Santos MD Work Phone: [employer] 06-16-2022 01:37-0500 Body temperature 98.01 [degF] Hoang Santos MD Work Phone: [employer] 06-16-2022 01:37-0500 Body weight 105.55 kg Hoang Santos MD Work Phone: [employer] 06-16-2022 01:37-0500 Diastolic blood pressure 77 mm[Hg] Hoang Santos MD Work Phone: [employer] 06-16-2022 01:37-0500 Heart rate 88 /min Hoang Santos MD Work Phone: [employer] 06-16-2022 01:37-0500 Respiratory rate 16 /min Hoang Santos MD Work Phone: [employer] 06-16-2022 01:37-0500 SaO2% (BldA) [Mass fraction] 98 % Hoang Santos MD Work Phone: [employer] 06-16-2022 01:37-0500 Systolic blood pressure 122 mm[Hg] Hoang Santos MD Work Phone: [employer] 03-13-2022 09:30-0500 Body height 162.6 cm Bea Jacobs MD Work Phone: [employer] 03-13-2022 09:30-0500 Body mass index (BMI) [Ratio] 37.81 kg/m2 Bea Jacobs MD Work Phone: [employer] 03-13-2022 09:30-0500 Body temperature 98.2 [degF] Bea Jacobs MD Work Phone: [employer] 03-13-2022 09:30-0500 Body weight 99.93 kg Bea Jacobs MD Work Phone: [employer] 03-13-2022 09:30-0500 Diastolic blood pressure 72 mm[Hg] Bea Jacobs MD Work Phone: [employer] 03-13-2022 09:30-0500 Heart rate 76 /min Bea Jacobs MD Work Phone: [employer] 03-13-2022 09:30-0500 Respiratory rate 18 /min Bea Jacobs MD Work Phone: [employer] 03-13-2022 09:30-0500 SaO2% (BldA) [Mass fraction] 96 % Bea Jacobs MD Work Phone: [employer] 03-13-2022 09:30-0500 Systolic blood pressure 116 mm[Hg] Bea Jacobs MD Work Phone: [employer] 11-29-2021 14:37-0400 Diastolic blood pressure 69 mm[Hg] Bea Jacobs MD Work Phone: [employer] 11-29-2021 14:37-0400 Heart rate 80 /min Bea Jacobs MD Work Phone: [employer] 11-29-2021 14:37-0400 SaO2% (BldA) [Mass fraction] 96 % Bea Jacobs MD Work Phone: [facility] 11-29-2021 14:37-0400 Systolic blood pressure 112 mm[Hg] Bea Jacobs MD Work Phone: [facility] 11-29-2021 14:36-0400 Body height 162.6 cm Bea Jacobs MD Work Phone: [facility] 11-29-2021 14:36-0400 Body mass index (BMI) [Ratio] 36.39 kg/m2 Bea Jacobs MD Work Phone: [facility] 11-29-2021 14:36-0400 Body temperature 99.5 [degF] Bea Jacobs MD Work Phone: [facility] 11-29-2021 14:36-0400 Body weight 96.16 kg Bea Jacobs MD Work Phone: [facility] 11-29-2021 14:36-0400 Respiratory rate 18 /min Bea Jacobs MD Work Phone: [facility] 05-22-2021 14:29-0500 Body mass index (BMI) [Ratio] 32.89 kg/m2 Hoang Santos MD Work Phone: [employer] 05-22-2021 14:29-0500 Body temperature 99.5 [degF] Hoang Santos MD Work Phone: [employer] 05-22-2021 14:29-0500 Body weight 92.44 kg Hoang Santos MD Work Phone: [employer] 05-22-2021 14:29-0500 Diastolic blood pressure 61 mm[Hg] Hoang Santos MD Work Phone: [employer] 05-22-2021 14:29-0500 Heart rate 97 /min Hoang Santos MD Work Phone: [employer] 05-22-2021 14:29-0500 Respiratory rate 18 /min Hoang Santos MD Work Phone: [employer] 05-22-2021 14:29-0500 SaO2% (BldA) [Mass fraction] 96 % Hoang Santos MD Work Phone: [employer] 05-22-2021 14:29-0500 Systolic blood pressure 117 mm[Hg] Hoang Santos MD Work Phone: [employer] 04-12-2021 18:20-0500 Body temperature 98.6 [degF] Dana Redman MD Work Phone: [employer] 04-12-2021 18:20-0500 Diastolic blood pressure 75 mm[Hg] Dana Redman MD Work Phone: [employer] 04-12-2021 18:20-0500 Heart rate 92 /min Dana Redman MD Work Phone: [employer] 04-12-2021 18:20-0500 Respiratory rate 20 /min Dana Redman MD Work Phone: [employer] 04-12-2021 18:20-0500 SaO2% (BldA) [Mass fraction] 96 % Dana Redman MD Work Phone: [employer] 04-12-2021 18:20-0500 Systolic blood pressure 118 mm[Hg] Dana Redman MD Work Phone: [employer] 04-12-2021 18:18-0500 Body height 167.6 cm Dana Redman MD Work Phone: [employer] 04-12-2021 18:18-0500 Body mass index (BMI) [Ratio] 32.28 kg/m2 Dana Redman MD Work Phone: [employer] 04-12-2021 18:18-0500 Body weight 90.72 kg Dana Redman MD Work Phone: [employer] 02-10-2021 17:39-0400 Body temperature 99.1 [degF] Braydon May MD Work Phone: [employer] Work Phone: 02-10-2021 17:27-0400 Body height 162.6 cm Braydon May MD Work Phone: [employer] Work Phone: 02-10-2021 17:27-0400 Body mass index (BMI) [Ratio] 37.75 kg/m2 Braydon May MD Work Phone: [employer] Work Phone: 02-10-2021 17:27-0400 Body weight 99.75 kg Braydon May MD Work Phone: [employer] Work Phone: 02-10-2021 17:27-0400 Diastolic blood pressure 84 mm[Hg] Braydon May MD Work Phone: [employer] Work Phone: 02-10-2021 17:27-0400 Heart rate 83 /min Braydon May MD Work Phone: [employer] Work Phone: 02-10-2021 17:27-0400 Respiratory rate 20 /min Braydon May MD Work Phone: [employer] Work Phone: 02-10-2021 17:27-0400 SaO2% (BldA) [Mass fraction] 95 % Braydon May MD Work Phone: [employer] Work Phone: 02-10-2021 17:27-0400 Systolic blood pressure 128 mm[Hg] Braydon May MD Work Phone: [employer] Work Phone: 12-10-2020 19:54-0400 Diastolic blood pressure 63 mm[Hg] Bea Jacobs MD Work Phone: [employer] Work Phone: 12-10-2020 19:54-0400 SaO2% (BldA) [Mass fraction] 97 % Bea Jacobs MD Work Phone: [facility] [employer] Work Phone: 12-10-2020 19:54-0400 Systolic blood pressure 111 mm[Hg] Bea Jacobs MD Work Phone: [facility] [employer] Work Phone: 08-01-2020 18:44-0400 BMI (Body Mass Index) 33.47 kg/m2 [facility] Work Phone: 08-01-2020 18:44-0400 Body Temperature 97.9 [degF] [facility] Work Phone: 08-01-2020 18:44-0400 Body weight 88.45 kg [facility] Work Phone: 08-01-2020 18:44-0400 BP Diastolic 72 mm[Hg] [facility] Work Phone: 08-01-2020 18:44-0400 BP Systolic 127 mm[Hg] [facility] Work Phone: 08-01-2020 18:44-0400 Height 162.6 cm [facility] Work Phone: 08-01-2020 18:44-0400 Pulse (Heart Rate) 93 /min [facility] Work Phone: 08-01-2020 18:44-0400 Pulse Oximetry 99 % [facility] Work Phone: 08-01-2020 18:44-0400 Respiratory Rate 16 /min [facility] Work Phone: 01-04-2020 12:33-0400 BMI (Body Mass Index) 32.96 kg/m2 [facility] 01-04-2020 12:33-0400 Body Temperature 98.1 [degF] [facility]-04-2020 12:33-0400 Body weight 87.09 [facility] 01-04-2020 12:33-0400 BP Diastolic 63 mm[Hg] [facility] 01-04-2020 12:33-0400 BP Systolic 115 mm[Hg] [facility] 01-04-2020 12:33-0400 Height 162.6 cm [facility] 01-04-2020 12:33-0400 Pulse (Heart Rate) 83 /min [facility] 01-04-2020 12:33-0400 Pulse Oximetry 97 % [facility] 12-23-2019 21:12-0400 BMI (Body Mass Index) 32.96 kg/m2 [facility] [place] 12-23-2019 21:120400 Body Temperature 98.71 [degF] [facility] 12-23-2019 21:120400 Body weight 87.09 kg [facility] [place] 12-23-2019 21:12-0400 BP Diastolic 69 mm[Hg] [facility] [place] 12-23-2019 21:12-0400 BP Systolic 129 mm[Hg] [facility] [place] 12-23-2019 21:12-0400 Pulse (Heart Rate) 102 /min [facility] 12-23-2019 21:120400 Pulse Oximetry 100 % [facility] 12-23-2019 21:12-0400 Respiratory Rate 18 /min [facility] [place] 10-22-2019 12:21-0400 BMI (Body Mass Index) 33.3 kg/m2 [facility] [place] 10-22-2019 12:210400 Body Temperature 98.8 [degF] Arin Carter [facility] [place] 10-22-2019 12:210400 Body weight 88 kg [facility] [place] 10-22-2019 12:21-0400 BP Diastolic 67 mm[Hg] Arin Emma [facility] , [place] 10-22-2019 12:21-0400 BP Systolic 113 mm[Hg] Arin Carter [facility] , [place] 10-22-2019 12:21-0400 Height 162.6 cm [facility]in [facility] , [place] 10-22-2019 12:21-0400 Pulse (Heart Rate) 77 /min Arin Emma [facility], [place] 10-22-2019 12:21-0400 Pulse Oximetry 98 % [facility] [place] 10-22-2019 12:21-0400 Respiratory Rate 18 /min [facility] [place] 04-06-2019 13:49-0500 Pulse Oximetry 98 % [facility], [place] 04-06-2019 13:39-0500 BP Diastolic 92 mm[Hg] [facility], [place] 04-06-2019 13:39-0500 BP Systolic 119 mm[Hg] [facility], [place] 04-06-2019 13:37-0500 Body Temperature 97.59 [degF] [facility], [place] 04-06-2019 13:37-0500 Body weight 84.82 kg [facility], [place] 04-06-2019 13:37-0500 Pulse (Heart Rate) 77 /min [facility], [place] 04-06-2019 13:37-0500 Respiratory Rate 16 /min [place], [place] Functional Status Date Assessment Result Facility 12-06-2022 Functional Status N/A [facility] Clinical Notes 12-10-2020 to 07-29-2023 Dawit Carter CMA - 07/29/2023 2:30 PM Shad Mcdonough MD - 07/29/2023 2:30 PM Yash Carter CMA - 07/29/2023 2:30 PM EDTTelephone Encounter - Thuy Salgado LPN - 07/24/2023 2:07 PM EDT Note Date & Type Note Facility 03-26-2024 History of Presen t illness Narrative Headache/epigastric pain/blurry vision/swelling? Headaches Cramping/contractions? No Abnormal vaginal discharge? No Spotting/vaginal bleeding? No Loss of fluid like your water may have broken? No Cats in the home? yes Do you change the litter box? No Flu vaccine? No Genetic testing done this here or other office? yes, low risk, females Have you been seen here at [facility] in a previous ?no Recent ER visits or hospitalizations? No Bring blood sugar log or meter with you today? (Please bring them with you for every visit at [facility]) n/a Traveled outside the country in the [...] was 45 minutes. 24 minutes were direct [id number] for counseling and coordination of care during visits itself. An additional 8 minutes or for same day preparation to see the patient. Another 13 minutes were needed to prepare visit report or otherwise complete encounter Thank you for sending this patient. Dana Mcdonough MD Maternal Medicine Professor, [facility] [phone] Office [phone]- Personal Cell Phone Office Note: Type 2 [...] with breakfast. metroNIDAZOLE (FLAGYL) 500 mg tablet [id number] acid ( 19) 29 mg iron- 1 [...] become candidates for treatment. ACOG and the [place] psychiatric association advocate treatment in patients with [...] growth disorder. Smoking cessation recommended. Both the [place] and the [facility] have excellent free stop smoking programs that are accessible through [facility] web sites. If desired by patient, we [...] to the patient's reported primary care provider. Cook Starch gave T1dm & T2dm dm handout, twin hand out and, genetic handout, and, activity in handout to patient. Patient understood that its good reading material if she has questions. documented in this encounter [facility] 07-24-2023 Miscellaneous Notes Called to schedule Diabetic Ed, patient declined to schedule.she states is seeing another Dr for this and that Dr Asher is aware. documented in this encounter [facility] 07-24-2023 Telephone encounter Note Called to schedule Diabetic Ed, patient declined to schedule.she states is seeing another Dr for this and that Dr Asher is aware. [facility] 07-15-2023 Miscellaneous Notes Summary: MFM Missed Diabetes Education Appointment Called. No answer. Message left regarding missing Diabetes Education appointment; noted was also scheduled to see Gaby Cheung (Nutrition Education). Requested to call [phone] Option #3 to reschedule. documented in this encounter [facility] 07-15-2023 Telephone encounter Note Summary: MFM Missed Diabetes Education Appointment Called. No answer. Message left regarding missing Diabetes Education appointment; noted was also scheduled to see Gaby Cheung (Nutrition Education). Requested to call [phone] Option #3 to reschedule. [facility] 12-06-2022 Hospital Discharg e instructions Patient [...] services (911 in the [place].). Call the [facility] and human services helpline (211 in the [place] Call or text a suicide hotline to speak with a trained counselor. The following suicide hotlines are available in the [place]: ?5-354-325-TALK ( or 040 in the [place] ?6-719-AJBRWLX ( ). ?Text 642070. This is the Crisis Text Line in the [place] ? . This is a hotline for [place] speakers. ? . This is a hotline for TTY users. ?8-970-7-U-YASHIRA ( ). This is a hotline for lesbian, delgadillo, bisexual, transgender, or questioning youth. ?For a list of hotlines in [place], visit suicide.org/hotlines/internation al/vexuie-szilxnm-hjrbdjbt.html Contact a crisis center or a local [...] to anyone or being with other people. ?Hohs-tt-tkrm conversation is best to help them understand [...] physical and a mental health checkup. Take dkcs-dai-vtutkfi and prescription medicines only as told by [...] National Suicide Prevention Lifeline: www.suicidepreventionlifeline.or g Hopeline: www.hopeline.[employer] - Inspiring solutions to transform cities [place] Foundation for Suicide Prevention: www.afsp.org The Yashira Project (for lesbian, delgadillo, bisexual, transgender, or questioning youth): www.thetrevorproject.org National [place] of Mental Health: www.[facility] hospital[facility].nih.gov/health/topics/s uicide-prevention Suicide Prevention Resources: afsp.org/yljqsvr-kybzalchyl-hmzn urces Contact a health care provider if: [...] provider. Document Revised: 11/15/2021 Document Reviewed: 08/30/2021 [employer] Patient Education 2022 [facility]. Follow Up Care 12/06/2022 13:21:39 With:[facility] Address:Unknown When:12/09/2022 16:28:40 Comments:Follow safety plan. Return to the emergency department with any worsening symptoms. With:GAYE JOSUE Address: [address] [place] [address] Business (1) When:12/09/2022 16:28:22 Comments:Call the office of [...] Repeat liver function testing in [address] [facility] 12-06-2022 Evaluation + Plan note Extrac rayray from: Title:ED Note Author:Graham Choe DO Date: Situational stress (F43.9: R eaction to severe stress, unspecified) Orders: Automated Diff CBC w/ Auto Diff Comprehensive Metabolic Panel Drug Screen Urine ECG 12 Lead Adult eGFR Ethanol Level U Beta Hcg Qual [facility]07-28-2022 History of Present illness Narrative* Edelmira Jacobs RN - 11/29/2021 2:40 PM EDT Home med list reviewed with patient. [facility] [place] Phone: 1(263) 716-157908-08-2021 History of Present illness Narrative* Perla Cunningham RN - 12/10/2020 8:28 PM EDT Discharge instructions given. Pt sent home with 1 daniel. Aware to greens picker prescription. All questions answered. documented in this encounterHol[facility] Hospital[facility] Phone: evaluation note* Diagnosis Symptoms of dehydration- Primary Nausea vomiting and diarrhea Nausea with vomiting documented in this encounter [employer] Phone: evaluation note* Diagnosis Threatened miscarriage in early - Primary Threatened , unspecified as to episode of care documented in this encounter [employer] Phone: evalevxixv note* Diagnosis Depression during in first trimester- Primary Dehydration documented in this encounter [employer] Phone: evalxlcktc note* Diagnosis COVID-19 virus infection- Primary Second trimester documented in this encounter [employer] Phone: evaluation note* Diagnosis Hordeolum externum of right lower eyelid- Primary Hordeolum externum documented in this encounter [place] Phone: evallwazpl note* Diagnosis Acute midline low back pain without sciatica- Primary documented in this encounter [place] Phone: evaltrdjkg note* Diagnosis Nausea and vomiting, unspecified vomiting type- Primary Intractable headache, unspecified chronicity pattern, unspecified headache type documented in this encounter [place] Phone: evallvtbkm note* Diagnosis Acute cystitis without hematuria- Primary Acute cystitis Vaginal yeast infection Candidiasis of vulva and vagina documented in this encounter [employer]Evaluation note* Diagnosis Type 2 diabetes mellitus affecting in second trimester, antepartum- Primary Twin , dichorionic/diamniotic, second trimester Bipolar disease during in second trimester ([facility]) documented in this encounter [facility]* Diagnosis Type 2 diabetes mellitus affecting in second trimester, antepartum- Primary Twin , dichorionic/diamniotic, second trimester Obesity affecting in second trimester, unspecified obesity type Bipolar disease during in second trimester ([facility]) Post traumatic stress disorder Posttraumatic stress disorder Tobacco smoking affecting in second trimester documented [facility] Narrative No data available for this section [facility]* Attachments The following attachments cannot be sent through Care Everywhere. * Nausea and Vomiting (Nigerien) * Diarrhea (Nigerien) * Oral Rehydration (Nigerien) documented in this encounterAntengo Phone: Hospital Discharge instructions* Attachments The following attachments cannot be sent through Care Everywhere. * Miscarriage: Threatened (Nigerien) documented in this [facility] [facility]ardsHol[facility] Phone: Hospital Discharge instructions* Attachments The following attachments cannot be sent through Care Everywhere. * Dehydration (Nigerien) documented in this [facility]ardsHol[facility] Phone: Hospital Discharge instructions* Attachments The following attachments cannot be sent through Care Everywhere. * Coronavirus Disease (COVID-19): General Info (Nigerien) documented in this [facility] RewardsHol[facility] HospitalBranchly Phone: Hospital Discharge instructions* Attachments The following attachments cannot be sent through Care Everywhere. * Styes and Chalazia (Nigerien) documented in this [employer] [facility]ards[employer] [employer] Phone: Hospital Discharge instructions* Attachments The following attachments cannot be sent through Care Everywhere. * Back Pain (Nigerien) * Back: Stretches: Exercises (Nigerien) documented in this [facility] Phone: Hospital Discharge instructions* Attachments The following attachments cannot be sent through Care Everywhere. * Headache (Nigerien) documented in this [employer] [employer] Phone: Hospital Discharge instructions* Attachments The following attachments cannot be sent through Care Everywhere. * Vaginal Yeast Infection (Nigerien) documented in this [facility] NewcastleCIVICOInstructionsNot on file documented in this encounterSouthwestern Vermont Medical CenterReset Therapeutics SystemInstructionsNot on file documented in this [facility] RewardsSouthwestern Vermont Medical CenterReset Therapeutics SystemInstructionsNot on file documented in this [facility] RewardsSouthwestern Vermont Medical CenterReset Therapeutics SystemInstructionsNot on file documented in this [facility] RewardsSouthwestern Vermont Medical CenterReset Therapeutics SystemProgress note No data available for this section [facility] Summary Purpose Family History No Family [...] FoundDocuments on File Type Date Recorded Patient City Comptroller Expl anation Advance Directives and Living Will Power of Lithograph Press Operator Documents on File Type Date Recorded Patient City Comptroller Expl anation ACP-Advance Directive ACP-Power of Lithograph Press Operator Documents on File Type Date Recorded Patient City Comptroller Expl anation Advance Directives and Livin g [...] be sent through Care Everywhere. * Sinusitis (Nigerien) * Sinus Rinse (Nigerien) * Bronchitis (Nigerien) documented in this encounter* Attachments The following attachments cannot be sent through Care Everywhere. * Smoking: Stopping (Nigerien) * Bronchitis (Nigerien) * Coronavirus Disease (COVID-19): General Info (Nigerien) documented in this encounter* Attachments The following attachments cannot be sent through Care Everywhere. * Bronchitis (Nigerien) documented in this encounter Assessments Diagnosis Bronchitis- [...] Referral Specialty Diagnoses / Procedures Referred By Contlenore t Referred To Contact Maternal and Medicine Diagnoses Twin , dichorionic/diamniotic, second trimester Bipolar disease during in second trimester ([facility]) Procedures US [facility] with or without consult Dana Mcdonough MD [address] [place] [address] [facility] Maternal Med [address] [place] [address] Referral ID Status Reason Start Date Expiration Date V isits Requested Visits Authorized [id number] Pending Review 07/29/2023 07/28/2024 1 1 Additional Source Comments INFORMATION SOURCE (unrecogn ized section and content) DATE CREATED AUTHOR [facility]/29/2017 [facility] DATE CREATED AUTHOR AUTHOR'S ORGANIZ ATION 11/26/2017 [facility] DATE CREATED AUTHOR AUTHOR'S ORGANIZ ATION 01/04/2020 [facility] DATE CREATED AUTHOR AUTHOR'S ORGANIZ ATION 05/26/2020 [facility] DATE CREATED AUTHOR AUTHOR'S ORGANIZ ATION 08/07/2020 [facility] DATE CREATED AUTHOR AUTHOR'S ORGANIZ ATION 04/08/2021 [facility] DATE CREATED AUTHOR AUTHOR'S ORGANIZ ATION 07/14/2021 [facility] DATE CREATED AUTHOR AUTHOR'S ORGANIZ ATION 04/27/2022 [facility] DATE CREATED AUTHOR AUTHOR'S ORGANIZ ATION 12/07/2022 [facility] DATE CREATED AUTHOR AUTHOR'S ORGANIZ ATION 10/10/2023 [facility] DATE CREATED AUTHOR AUTHOR'S ORGANIZ ATION 10/19/2023 [facility] DATE CREATED AUTHOR AUTHOR'S ORGANIZ ATION 10/29/2023 [facility] DATE CREATED AUTHOR AUTHOR'S ORGANIZ ATION 11/03/2023 [facility] DATE CREATED AUTHOR AUTHOR'S ORGANIZ ATION 11/06/2023 [facility] EPIC Reason for Visit [...] Care Teams (unrecognized sec tion and content) Incident Manager Relationship Specialty Start Date End Date Gaye Josue APRN - FIELD SUPPORT SPECIALIST [address] [phone] PCP - General Family Nurse Practitioner 02/10/21 Incident Manager Relationship Specialty Start Date End Date Gaye Josue APRN - FIELD SUPPORT SPECIALIST [address] [phone] PCP - General Family Nurse Practitioner 02/10/21 Incident Manager Relationship Specialty Start Date End Date Gaye Josue APRN - FIELD SUPPORT SPECIALIST [address] [place] [address] PCP - General Family Nurse Practitioner 02/10/21 Incident Manager Relationship Specialty Start Date End Date Gaye Josue APRN - FIELD SUPPORT SPECIALIST [address] [phone] PCP - General Family Nurse Practitioner 02/10/21 Incident Manager Relationship Specialty Start Date End Date Jacobo Johnson DO [address] [place] [address] PCP - General Family Medicine 07/29/23 Incident Manager Relationship Specialty Start Date End Date Jacobo Johnson DO [address] [place] [address] PCP - General Family Medicine 07/29/23 FOR [...] BE BASED ON THE PRIMARY CLINICAL RECORDS. [facility] [employer] [facility]. provides no warranty or guarantee of the accuracy or completeness of information in this document.
--- NOTE | 2023-11-07 16:56 | US_ITS ---
[address] [address] Patient Name: RIRI DEMPSEY MRN: [id number] date: 1995 Sex: F Assigned Patient Location: [facility] Current Patient Location: Accession/Order Number: [id number] Exam Date: 11/07/2023 17:03 Report Date: 11/10/2023 06:33 At the request of: YANI CALIX Procedure: US OB BPP w non-stress EXAMINATION: US OB BPP w non-stress HISTORY: TYPE 2 DIABETES MELLITUS E11.69 COMPARISON: No relevant comparison available. TECHNIQUE: Ultrasound biophysical profile was performed in the radiology department. non-reactive stress testing was performed by nursing staff in the birthing center. FINDINGS: BABY A: BREATHING MOVEMENTS: 2 GROSS BODY MOVEMENTS: 2 TONE: 2 QUALITATIVE AMNIOTIC FLUID VOLUME: 2 PRESENTATION: Cephalic HEART RATE: 140 AMNIOTIC FLUID VOLUME: 7.9 x 10.8 cm GESTATIONAL AGE: 30 weeks 6 days US/US OB BPP w non-stress IMPRESSION: Total biophysical profile score: 8/8 BABY B: BREATHING MOVEMENTS: 2 GROSS BODY MOVEMENTS: 2 TONE: 2 QUALITATIVE AMNIOTIC FLUID VOLUME: 2 PRESENTATION: Breech HEART RATE: 141 AMNIOTIC FLUID VOLUME: 7.0 X 7.0 cm GESTATIONAL AGE: 30 weeks 6 days IMPRESSION: Total biophysical profile score: 8/8 Electronically authenticated by: ZAYRA ORTIZ Date: 11/10/2023 06:33
--- NOTE | 2023-11-07 16:57 | US_ITS ---
[address] [address] Patient Name: RIRI DEMPSEY MRN: [id number] date: 1995 Sex: F Assigned Patient [facility] Current Patient Location: Accession/Order Number: [id number] Exam Date: 11/07/2023 17:03 Report Date: 11/10/2023 06:34 At the request of: YANI CALIX Procedure: US OB >= 14 wk fetus add gest EXAMINATION: US OB >= 14 wk fetus add gest HISTORY: TYPE 2 DIABETES MELLITUS E11.69 COMPARISON: No relevant comparison available. FINDINGS: Baby A: position: Cephalic presentation and longitudinal lie Largest fluid pocket: 7.9 x 2.8 cm Heart rate: 140 bpm Baby B: position: Breech presentation, longitudinal lie Largest fluid pocket: 7.0 x 7.0 cm Heart rate: 141 bpm US/US OB >= 14 wk fetus add gest IMPRESSION: Viable twin intrauterine gestation Electronically authenticated by: ZAYRA ORTIZ Date: 11/10/2023 06:34
--- NOTE | 2023-11-07 16:58 | US_ITS ---
[address] [address] Patient Name: RIRI DEMPSEY MRN: [id number] date: 1995 Sex: F Assigned Patient Location: [facility] Current Patient Location: Accession/Order Number: [id number] Exam Date: 11/07/2023 17:03 Report Date: 11/10/2023 06:39 At the request of: YANI CALIX Procedure: US OB umbilical artery EXAMINATION: US OB umbilical artery HISTORY: TYPE 2 DIABETES MELLITUS E11.69 COMPARISON: No relevant comparison available. TECHNIQUE: Duplex Doppler evaluation of the umbilical arteries. FINDINGS: Gestational age: 30 weeks 6 days Baby A: Heart rate 140 bpm Proximal umbilical artery: 63/30 cm/s Mid umbilical artery: 98/36 cm/s Distal umbilical artery: 71/26 cm/s Resistive index: 0.53 PSV/EDV Ratio: 2.1-2.8 Forward flow identified throughout diastole Baby B: Heart rate 141 bpm Proximal umbilical artery: 209/90 cm/s Mid umbilical artery: 94/42 cm/s Distal umbilical artery: 75/40 cm/s Resistive index: 0.46-0.57 PSV/EDV Ratio: 2.3-2.8 Forward flow identified throughout diastole US/US OB umbilical artery IMPRESSION: Baby A: Class 0, normal Baby B demonstrates elevated flow velocity in the proximal umbilical artery, otherwise normal Umbilical Artery: Class 0 = Normal umbilical artery blood velocity Class I = increased RI or PI, but still forward flow in diastole Class II = Absent end diastolic flow (AEDF) Class III = Reversal of end diastolic flow (REDF) Resistive Index (RI)<1 Systolic/Diastolic ratio (S:D): An S:D ratio of 2-3 after 34 wks is normal Systolic/Diastolic ratio (S:D): Age 16: 3.01 for the 10th percentile, 4.25 for the 50th percentile, 6.07 for the 90th percentile Age 20: 3.16 for the 10th percentile, 4.04 for the 50th percentile, 5.24 for the 90th percentile Age 24: 2.70 for the 10th percentile, 3.50 for the 50th percentile, 4.75 for the 90th percentile Age 28: 2.41 for the 10th percentile, 3.02 for the 50th percentile, 3.97 for the 90th percentile Age 30: 2.43 for the 10th percentile, 3.04 for the 50th percentile, 3.80 for the 90th percentile Age 32: 2.27 for the 10th percentile, 2.73 for the 50th percentile, 3.57 for the 90th percentile Age 34: 2.08 for the 10th percentile, 2.52 for the 50th percentile, 3.41 for the 90th percentile Age 36: 1.96 for the 10th percentile, 2.35 for the 50th percentile, 3.15 for the 90th percentile Age 38: 1.89 for the 10th percentile, 2.24 for the 50th percentile, 3.10 for the 90th percentile Age 40: 1.88 for the 10th percentile, 2.22 for the 50th percentile, 2.68 for the 90th percentile Age 41: 1.93 for the 10th percentile, 2.21 for the 50th percentile, 2.55 for the 90th percentile Age 42: 1.91 for the 10th percentile, 2.51 for the 50th percentile, 3.21 for the 90th percentile Uteroplacental Artery: Resistive Index (RI): Normal=<0.55 High Resistance=Bilateral notches (after 26 wks) and RI>0.55. Unilateral notches (after 26 wks) and RI>0.65 Systolic/Diastolic ratio (S:D) = 2-3 is normal after 32 weeks. Electronically authenticated by: ZAYRA ORTIZ Date: 11/10/2023 06:39
== END 2023-11-07 19:00 | disposition home or self-care (01) ==
LOC: US 07:13 → FBC 16:47
PROVIDERS: PCP Family Medicine; Visit Provider Obstetrics & Gynecology
DX: O30.003 Twin pregnancy, unspecified number of placenta and unspecified number of amniotic sacs, third trimester (principal); E11.69 Type 2 diabetes mellitus with other specified complication; Z3A.30 30 weeks gestation of pregnancy; O43.813 Placental infarction, third trimester
CPT/HCPCS: 76810; 76818; 76820

== ENCOUNTER 2023-11-11 07:08 | Outpatient (OUT) | payer OTHER, SELFPAY ==
[2023-11-11 16:02] VITALS: BP 107/58; PULSE 93
== END 2023-11-11 16:40 | disposition home or self-care (01) ==
LOC: FBCO 07:08 → FBC 15:41
PROVIDERS: PCP Family Medicine; Visit Provider Obstetrics & Gynecology
DX: O30.009 Twin pregnancy, unspecified number of placenta and unspecified number of amniotic sacs, unspecified trimester (principal)
CPT/HCPCS: 59025

== ENCOUNTER 2023-11-14 07:14 | Outpatient (OUT) | payer OTHER, SELFPAY ==
--- NOTE | 2023-11-14 | US_ITS ---
[address] [address] Patient Name: RIRI DEMPSEY MRN: [id number] date: 1995 Sex: F Assigned Patient Location: [facility] Current Patient Location: [facility] Accession/Order Number: [id number] Exam Date: 11/14/2023 14:26 Report Date: 11/14/2023 16:30 At the request of: YANI CALIX Procedure: US OB umbilical artery EXAMINATION: US OB umbilical artery HISTORY: TWIN GESTATION TH[employer] TRIMESTER O30.003 COMPARISON: No relevant comparison available. TECHNIQUE: Duplex Doppler evaluation of the umbilical arteries. FINDINGS: BABY A: Proximal umbilical artery: 117/34 cm/s. Resistive index 0.71. Ratio 3.4 Mid umbilical artery: 99/37 cm/s. Resistive index 0.63 ratio 2.7 Distal umbilical artery: 81/29 cm/s. Resistive index 0.64. Ratio 2.8 Forward flow identified throughout diastole BABY B: Proximal umbilical artery: 121/58 cm/s. Resistive index 0.52. Ratio 2.1 Mid umbilical artery: 118/56 cm/s. Resistive index 0.53. Ratio 2.1 Distal umbilical artery: 69/30 cm/s. Resistive index 0.50. Ratio 2.3 Forward flow identified throughout diastole US/US OB umbilical artery IMPRESSION: Normal exam for baby A and baby B Umbilical Artery: Class 0 = Normal umbilical artery blood velocity Class I = increased RI or PI, but still forward flow in diastole Class II = Absent end diastolic flow (AEDF) Class III = Reversal of end diastolic flow (REDF) Resistive Index (RI)<1 Systolic/Diastolic ratio (S:D): An S:D ratio of 2-3 after 34 wks is normal Systolic/Diastolic ratio (S:D): Age 16: 3.01 for the 10th percentile, 4.25 for the 50th percentile, 6.07 for the 90th percentile Age 20: 3.16 for the 10th percentile, 4.04 for the 50th percentile, 5.24 for the 90th percentile Age 24: 2.70 for the 10th percentile, 3.50 for the 50th percentile, 4.75 for the 90th percentile Age 28: 2.41 for the 10th percentile, 3.02 for the 50th percentile, 3.97 for the 90th percentile Age 30: 2.43 for the 10th percentile, 3.04 for the 50th percentile, 3.80 for the 90th percentile Age 32: 2.27 for the 10th percentile, 2.73 for the 50th percentile, 3.57 for the 90th percentile Age 34: 2.08 for the 10th percentile, 2.52 for the 50th percentile, 3.41 for the 90th percentile Age 36: 1.96 for the 10th percentile, 2.35 for the 50th percentile, 3.15 for the 90th percentile Age 38: 1.89 for the 10th percentile, 2.24 for the 50th percentile, 3.10 for the 90th percentile Age 40: 1.88 for the 10th percentile, 2.22 for the 50th percentile, 2.68 for the 90th percentile Age 41: 1.93 for the 10th percentile, 2.21 for the 50th percentile, 2.55 for the 90th percentile Age 42: 1.91 for the 10th percentile, 2.51 for the 50th percentile, 3.21 for the 90th percentile Uteroplacental Artery: Resistive Index (RI): Normal=<0.55 High Resistance=Bilateral notches (after 26 wks) and RI>0.55. Unilateral notches (after 26 wks) and RI>0.65 Systolic/Diastolic ratio (S:D) = 2-3 is normal after 32 weeks. Electronically authenticated by: ZAYRA ORTIZ Date: 11/14/2023 16:30
--- NOTE | 2023-11-14 14:30 | US_ITS ---
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 TECHNIQUE: Ultrasound biophysical profile was performed in the radiology department. non-reactive stress testing was performed by nursing staff in the birthing center. FINDINGS: BABY A: BREATHING MOVEMENTS: 2 GROSS BODY MOVEMENTS: 2 TONE: 2 QUALITATIVE AMNIOTIC FLUID VOLUME: 2 PRESENTATION: Cephalic HEART RATE: 171 AMNIOTIC FLUID VOLUME: 4.8 x 11.6 cm GESTATIONAL AGE: 31 weeks 6 days US/US OB BPP w non-stress IMPRESSION: Total biophysical profile score: 8/8 BABY B: BREATHING MOVEMENTS: 2 GROSS BODY MOVEMENTS: 2 TONE: 2 QUALITATIVE AMNIOTIC FLUID VOLUME: 2 PRESENTATION: Breech HEART RATE: 123 AMNIOTIC FLUID VOLUME: 5.4 x 9.6 cm GESTATIONAL AGE: 31 weeks 6 days IMPRESSION: Total biophysical profile score: 8/8 Electronically authenticated by: ZAYRA ORTIZ Date: 11/14/2023 16:27
[2023-11-14 15:31] VITALS: BP 116/65; PULSE 94
--- NOTE | 2023-11-14 16:17 | PC.NURSE ---
1523- Barbara Baby A: 4.8x11.6, Baby B: 5.4x9.6
== END 2023-11-14 16:10 | disposition home or self-care (01) ==
LOC: FBCO 07:15 → FBC 15:24
PROVIDERS: PCP Family Medicine; Visit Provider Obstetrics & Gynecology
DX: O30.003 Twin pregnancy, unspecified number of placenta and unspecified number of amniotic sacs, third trimester (principal); O32.1XX1 Maternal care for breech presentation, fetus 1; Z3A.31 31 weeks gestation of pregnancy
CPT/HCPCS: 76810; 76818; 76820

== ENCOUNTER 2023-11-16 15:34 | Observation (INO) | payer OTHER, SELFPAY ==
[2023-11-16 16:02] VITALS: BP 132/74; PULSE 88; TEMP 36.6
--- NOTE | 2023-11-16 16:28 | US_ITS ---
[address] [address] Patient Name: RIRI DEMPSEY MRN: [id number] date: 1995 Sex: F Assigned Patient Location: [facility] Current Patient Location: [facility] Accession/Order Number: [id number] Exam Date: 11/16/2023 17:15 Report Date: 11/16/2023 19:43 At the request of: YANI CALIX Procedure: US OB placenta EXAM: US OB placenta HISTORY: twin gestation COMPARISON: US OB placenta Study Date: 10/13/2023 7:50:03 PM TECHNIQUE: Limited examination is performed for evaluation of placental. Multiple grayscale FINDINGS: Images are submitted for review. Twin gestation is noted. Twin A: Cephalic presentation. Largest fluid pocket measures 6.1 x 8.9 cm. Grade 1, Anterior placenta is noted. heart rate is 155 bpm. Twin B: Cephalic presentation.. Largest fluid pocket measures 2.2 x 6.7 cm. Grade 1 anterior placenta is noted. heart rate is 138 beats per minute. The cervix appears closed and measures 4.2 cm in length. US/US OB placenta IMPRESSION: Live twin gestation with cephalic presentation. Grade 1 anterior placenta is noted. Electronically authenticated by: LUDIN ANDERSON Date: 11/16/2023 19:43
--- NOTE | 2023-11-16 16:28 | US_ITS ---
[address] [address] Patient Name: RIRI DEMPSEY MRN: [id number] date: 1995 Sex: F Assigned Patient Location: [facility] Current Patient Location: [facility] Accession/Order Number: [id number] Exam Date: 11/16/2023 17:15 Report Date: 11/16/2023 19:38 At the request of: YANI CALIX Procedure: US OB BPP w non-stress EXAM: US OB BPP w non-stress HISTORY: twin gestation COMPARISON: US OB BPP w non-stress Study Date: 11/14/2023 TECHNIQUE: Limited examination as performed for evaluation of biophysical profile. FINDINGS: Biophysical profile for twin A: breathing movements: 2 Gross body movements: 2 tone: 2 Amniotic fluid volume: 2 Total biophysical score for twin A is 8 out of 8. Largest pocket of amniotic fluid volume measures 6.1 x 3.9 cm. The heart rate for twin A is 155 bpm. Biophysical profile for twin B: breathing movements: 2 Gross body movements: 2 tone: 2 Amniotic fluid volume: 2 Total biophysical score for twin B is 8 out of 8. Largest pocket of amniotic fluid volume measures 10.2 x 6.7 cm. The heart rate for twin B is 138 bpm. US/US OB BPP w non-stress IMPRESSION: Total biophysical score for twin A and B is 8 out of 8. Electronically authenticated by: LUDIN ANDERSON Date: 11/16/2023 19:38
--- NOTE | 2023-11-16 16:28 | US_ITS ---
[address] [address] Patient Name: RIRI DEMPSEY MRN: [id number] date: 1995 Sex: F Assigned Patient Location: [facility] Current Patient Location: [facility] Accession/Order Number: [id number] Exam Date: 11/16/2023 17:15 Report Date: 11/16/2023 19:34 At the request of: YANI CALIX Procedure: US OB cervical length EXAM: US OB cervical length HISTORY: cramping COMPARISON: US OB cervical length Study Date: 10/13/2023 TECHNIQUE: Limited ultrasound is performed for evaluation of cervical length FINDINGS: The cervix appears closed and measures 4.3 cm in length. US/US OB cervical length IMPRESSION: The cervix appears closed and measures 4.3 cm in length. Electronically authenticated by: LUDIN ANDERSON Date: 11/16/2023 19:34
[2023-11-16 16:59] LABS: Basophils Percent Auto 0.1 % (0.2-2.0); Eosinophils Percent Auto 0.3 % (0.9-7.0); Hematocrit 31.5 % (36.0-48.0); Hemoglobin 9.8 g/dL (12.0-16.0); Immature Granulocytes Abs Auto 0.05 10^3/uL (0.00-0.03); Immature Granulocytes Pct Auto 0.6 % (0.0-0.5); Lymphocytes Absolute Auto 1.3 10^3/uL (1.2-3.8); Lymphocytes Percent Auto 15.3 % (20.5-60.0); Mean Corpuscular HGB Conc 31.1 g/dL (29.9-35.2); Mean Corpuscular Hemoglobin 26.1 pg (26.7-34.0); Mean Corpuscular Volume 83.8 fL (81.0-99.0); Mean Platelet Volume 12.7 fL (9.5-13.5); Monocytes Absolute Auto 0.3 10^3/uL (0.3-0.8); Neutrophils Absolute Auto 6.8 10^3/uL (1.4-6.5); Neutrophils Percent Auto 79.7 % (43.0-75.0); Platelet Count 173 10^3/uL (150-450); Red Blood Count 3.76 10^6/uL (4.20-5.40); Red Cell Distribution Width 13.5 % (11.0-15.0); White Blood Count 8.6 10^3/uL (4.0-11.0)
[2023-11-16 17:02] LABS: Bilirubin Urine NEGATIVE (NEGATIVE); Blood Urine TRACE-I (NEGATIVE); Clarity Urine CLEAR (CLEAR); Color Urine RED (YELLOW); Glucose Urine UA NEGATIVE (NEGATIVE); Ketones Urine TRACE mg/dL (NEGATIVE); Leukocyte Esterase Urine LARGE (NEGATIVE); Nitrite Urine NEGATIVE (NEGATIVE); Protein Urine 30 mg/dL (NEG/TRACE); Specific Gravity Urine >=1.030 (1.005-1.025); pH Urine 6.5 (5.0-9.0)
[2023-11-16 17:09] LABS: Urine Microscopic Indicated YES
[2023-11-16 17:17] LABS: Lactate Dehydrogenase 142 U/L (81-234)
[2023-11-16 17:18] LABS: Alanine Aminotransferase 18 U/L (14-59); Aspartate Amino Transferase 16 U/L (15-37); Estimated GFR (African America >60 (>=60); Estimated GFR (Non-African Ame >60 (>=60); Uric Acid 4.6 mg/dL (2.6-6.0)
[2023-11-16 17:22] LABS: Bacteria Urine MODERATE #/HPF (NONE SEEN); Cast Seen? NONE SEEN #/LPF (NONE SEEN); Crystals Seen? None Seen #/HPF (None Seen); Mucus Urine NONE SEEN (NONE SEEN); RBC Urine 0-2 #/HPF (0-2); Squamous Epithelial Cell Urine MANY #/LPF (NONE/RARE); Urine Culture Indicated YES; WBC Urine >100 #/HPF (NONE SEEN)
[2023-11-16 17:39] LABS: INR 0.93; Partial Thromboplastin Time 25.1 sec (22.3-36.2); Prothrombin Time 9.9 sec (9.0-11.6)
[2023-11-16 18:02] VITALS: BP 110/73; PULSE 90
[2023-11-16 18:11] LABS: Fibrinogen 563 mg/dL (200-400)
[2023-11-16] MEDS: 0.9 % SODIUM CHLORIDE 1,000 ML 999 ML IV (18:55)
[2023-11-16] MEDS: FLUCONAZOLE 150 MG TABLET PO (19:40)
[2023-11-16] MEDS: CEFAZOLIN SODIUM/DEXTROSE,ISO 2 GM/50 ML PIGGYBACK IV (19:40)
== END 2023-11-16 20:31 | disposition home or self-care (01) ==
LOC: FBC 15:36
PROVIDERS: Admitting Provider Obstetrics & Gynecology; PCP Family Medicine; Visit Provider Obstetrics & Gynecology
DX: O26.893 Other specified pregnancy related conditions, third trimester (principal); R51.9 Headache, unspecified; R10.9 Unspecified abdominal pain; H53.8 Other visual disturbances; O30.003 Twin pregnancy, unspecified number of placenta and unspecified number of amniotic sacs, third trimester; Z3A.32 32 weeks gestation of pregnancy
CPT/HCPCS: 36415; 76815; 76817; 76818; 81001; 82565; 83615; 84450; 84460; 84520; 84550; 85025; 85384; 85610; 85730; 87086; 96365; G0378; G0379; J0690

== ENCOUNTER 2023-11-18 07:13 | Outpatient (OUT) | payer OTHER, SELFPAY ==
--- OUTSIDE RECORDS SUMMARY | 2023-11-18 07:16 | XMS_ITS | CCD ---
Author Organization [facility] ion [facility] Care Team Providers Care Department Specialist Name Role Phone GAYE JOSUE Unavailable Unavailable GAYE JOSUE Unavailable Unavailable Unavailable Unavailable Unavailable Honey, [place] Maryjo Unavailable Unavailable Honey, [place] Maryjo Unavailable Unavailable Unavailable Primary Care Provider UnavailJuanito Rodriges Primary Care Provider JUANITO HERNANDEZ Attending U navailable HUY, MONICATH JASWINDERJAIAH Primary Care U navailable Celengjaylen, Vijeth Rathnarajaiah [...] PERNELL SCRUGGS Attending UnavailDAVID Noyola Referring Unavailable [facility] Primary Care Unavailable [facility] Primary Care Provider [facility] Gaye Primary Care Provider MISC, DR [...] DR ACHARYA Consulting Unavailable KARASIK, DR ACHARYA Admdaysi Unavailable KARASIK, DR ACHARYA Attending Unavailable MISC, [...] Unavailable GAYE JOSUE Primary Care Unavailable Liat MCGILL - LORI Gaye Primary Care Provider Unavailable Primary Care Provider UnavailJacobo Doyle DO Primary Care Provider DELLEE, GAYE Primary Care Unavailable MATTHEW TAFOYA Attending Unavailable DELANY, GAYE Primary Care Unavailable BEA JACOBS Attending Unavailable DELANY, GAYE Primary Care Unavailable BEA JACOBS Attending Unavailable BRITTA, JACOBO J Primary Care Unavailable HOANG SANTOS Attending Unavailable OLEJAMI, JACOBO J Referring Unavailable OLEWILER, JACOBO J Primary Care Unavailable DELANY, GAYE Referring Unavailable DELANY, GAYE Primary Care Unavailable GAYE JOSUE M Primary Care Unavailable MARY AGUIAR Attending U Redd Geronimo Attending Unavailab Redd Higginbotham Admitting Unavailab dedra [facility], PHYSICIAN Primary Care Unavailable LOY ASHER Referring Unavailable OLEWILER, JACOBO J Primary Care Unavailable DANA MCDONOUGH Attending Unavailable LOY ASHER Referring Unavailable OLEWILER, JACOBO J Primary Care Unavailable ROSA ROCHA Attending Unavailable DEDRICK ASHERY Jose C Referring Unavailable OLEWILER, JACOBO J Primary Care Unavailable YOGI, LOY R Referring Unavailable OLEWILER, JACOBO J Primary Care Unavailable TRISH ZIMMERMAN Attending Unavailable TRISH ZIMMERMAN Attending Unavailable YOGI, LOY R Referring Unavailable OLEWILER, JACOBO J Primary Care Unavailable HERMAN URRUTIA Attending Unavailable OLEWILER, JACOBO J Referring Unavailable OLEWILER, JACOBO J Primary Care Unavailable ZAYRA KIMBLE Admitting Unavailable ZAYRA KIMBLE Attending Unavailable OLEWILER, JACOBO J Primary Care Unavailable CHRISTELLE SEPULVEDA Unavailable HARMONY HESS Referring Unavailable OLEWILER, JACOBO J Primary Care Unavailable LOY ASHER Attending Unavailable LOY ASHER Attending Unavailable LOY ASHER Attending Unavailable LOY ASHER Attending Unavailable Allergies Allergy Classification Reported Allergen(s) Allergy Type Date of Onset Reaction(s) Facility (1 source) No Known Medication Allergies; Translations: [No Known Medication Allergies] Propensity to adverse reactions (disorder) [facility] Repository Medications Current Medications Medication Drug Class(es) [...] oral tablet (2 sources) Nitroimidazole Antimicrobial Start: 02-26-2024 metroNIDAZOLE (FLAGYL) 500 mg tablet 2 ml [...] days 10 tablet 0 10/22/2019 10/27/2019 Active dr241-nnvh-ddhuu acid ( 19) 29 mg iron- 1 mg tablet,chewable (2 sources) on872-wvsa-zcukd acid ( 19) 29 mg iron- 1 [...] 02/01/2020 Active take 1 tablet by mark th twice daily as needed for anxiety clonazePAM (KlonoPIN) 1 mg tablet Take 1 tablet by mouth 2 times daily as needed for Anxiety for up to 30 days. Max Daily Amount 2 mg 0 Active take 2 tablets by mo uth twice daily as needed clonazePAM (KLONOPIN) 1 [...] mark th every four hours as needed Ifajyitmcpcnupa-BSEK-OR (DAYQUIL PO) Don e 1 tablet by [...] Results Test Name Value Interpretation Reference Range [facility] Glucose Glucometer (BldC) [M ass/Vol]on 11-03-2023 Glucose [Mass/Vol] 127 mg/dL High 65-99 [facility] Glucose [Mass/Vol] 172 mg/dL High 65-99 [facility] Glucose Glucometer (BldC) [M ass/Vol]on 11-02-2023 Glucose [Mass/Vol] 162 mg/dL High 65-99 [facility] Glucose [Mass/Vol] 160 mg/dL High 65- [facility] Glucose [Mass/Vol] 157 mg/dL High 65-99 [facility] Glucose [Mass/Vol] 189 mg/dL High 65-99 [facility] Glucose [Mass/Vol] 137 mg/dL High 65-99 [facility] VAGINITIS PANEL PCRon 2023 VAGINITIS PANEL PCR [...] clinical presentation to determine patient diagnosis. Normal [facility] Comment on above: Performed By: #### C BCA, CMP, THYR, HA1C, 82323-0 #### [facility] ([id number]) [address], [address] [place] [address] Glucose Glucometer ([facility]) [M ass/Vol]on 11-01-2023 Glucose [Mass/Vol] 137 mg/dL High 65-99 [facility] Glucose [Mass/Vol] 138 mg/dL High 65-99 [facility] Glucose [Mass/Vol] 147 mg/dL High 65-99 [facility] Glucose [Mass/Vol] 172 mg/dL High 65-99 [facility] Glucose [Mass/Vol] 98 mg/dL Normal 65-99 [facility] CBC AND AUTO DIFFon 10-31-19 24 ABSOLUTE BASOPHIL 0.0 X10E9/L Normal 0.0-0.2 [facility] Comment on above: Performed By: #### C BCA, CMP, THYR, HA1C, 67721-6 #### [facility] ([id number]) [address], [address] [place] [address] ABSOLUTE NEUTROPHIL 5.2 X10E9/L Normal 1.5-6.6 [facility] Comment on above: Performed By: #### C BCA, CMP, THYR, HA1C, 61190-9 #### [facility] ([id number]) [address], [address] [place] [address] Basophils/100 WBC (Bld) 0.3 % Normal [facility] Comment on above: Performed By: #### C BCA, CMP, THYR, HA1C, 92881-0 #### [facility] ([id number]) [address], [address] [place] [address] Eosinophils (Bld) [#/Vol] 0.0 10*3/uL Normal 0.0-0.4 [facility] Comment on above: Performed By: #### C BCA, CMP, THYR, HA1C, 41977-3 #### [facility] ([id number]) [address], [address] [place] [address] Eosinophils/100 WBC (Bld) 0.3 % Normal [facility] Comment on above: Performed By: #### C BCA, CMP, THYR, HA1C, 82195-8 #### [facility] ([id number]) [address] [place] [address] Erythrocyte distribution width (RBC) [Ratio] 13.5 % Normal 11.5-15.0 [facility] Comment on above: Performed By: #### C BCA, CMP, THYR, HA1C, 10804-7 #### [facility] ([id number]) [address], [address] [place] [address] Hematocrit (Bld) [Volume fraction] 30.4 % Low 35-47 [facility] Comment on above: Performed By: #### C BCA, CMP, THYR, HA1C, 41746-1 #### [facility] ([id number]) [address], [address] [place] [address] Hemoglobin (Bld) [Mass/Vol] 10.2 g/dL Low 11.7-15.5 [facility] Comment on above: Performed By: #### C BCA, CMP, THYR, HA1C, 87242-1 #### [facility] ([id number]) [address] [place] [address] Lymphocytes (Bld) [#/Vol] 1.5 10*3/uL Normal 1.0-3.5 [facility] Comment on above: Performed By: #### C BCA, CMP, THYR, HA1C, 88001-0 #### [facility] ([id number]) [address] [address] Lymphocytes/100 WBC (Bld) 20.8 % Normal [facility] Comment on above: Performed By: #### C BCA, CMP, THYR, HA1C, 59178-3 #### [facility] ([id number]) [address] [address] MCH (RBC) [Entitic mass] 26.6 pg Low 27-34 [facility] Comment on above: Performed By: #### C BCA, CMP, THYR, HA1C, 13314-0 #### [facility] ([id number]) [address] [place] [address] MCHC (RBC) [Mass/Vol] 33.4 g/dL Normal 32-[address] [facility] Comment on above: Performed By: #### C BCA, CMP, THYR, HA1C, 60872-7 #### [facility] ([id number]) [address] [address] MCV (RBC) [Entitic vol] 80 fL Normal 80-100 [facility] Comment on above: Performed By: #### C BCA, CMP, THYR, HA1C, 47486-1 #### [facility] ([id number]) [address] [place] [address] Monocytes (Bld) [#/Vol] 0.4 10*3/uL Normal 0-0.9 [facility] Comment on above: Performed By: #### C BCA, CMP, THYR, HA1C, 01005-0 #### [facility] ([id number]) [address], [address] [place] [address] Monocytes/100 WBC (Bld) 5.5 % Normal [facility] Comment on above: Performed By: #### C BCA, CMP, THYR, HA1C, 90209-3 #### [facility] ([id number]) [address], [address] [place] [address] Neutrophils/100 WBC (Bld) 73.1 % Normal [facility] Comment on above: Performed By: #### C BCA, CMP, THYR, HA1C, 23557-4 #### [facility] ([id number]) [address], [address] [place] [address] Platelet mean volume (Bld) [Entitic vol] 10.1 fL Normal 7-12 [facility] Comment on above: Performed By: #### C BCA, CMP, THYR, HA1C, 11959-3 #### [facility] ([id number]) [address], [address] [place] [address] Platelets (Bld) [#/Vol] 184 10*3/uL Normal 150-450 [facility] Comment on above: Performed By: #### C BCA, CMP, THYR, HA1C, 57044-6 #### [facility] ([id number]) [address], [address] [place] [address] RBC COUNT 3.83 X10E12/L Normal 3.80-5.20 [facility] Comment on above: Performed By: #### C BCA, CMP, THYR, HA1C, 33340-4 #### [facility] ([id number]) [address], [address] [place] [address] WBC (Bld) [#/Vol] 7.1 10*3/uL Normal 4.0-11.0 [facility] Comment on above: Performed By: #### C BCA, CMP, THYR, HA1C, 49661-6 #### [facility] ([id number]) [address] [address] CHLAMYDIA/GC BY PCRon 2023 CHLAMYDIA/GC BY PCR [...] are dependent on adequate specimen collection. Normal [facility] Comment on above: Performed By: #### C BCA, CMP, THYR, HA1C, 97154-1 #### [facility] ([id number]) [address] [address] COMPREHENSIVE METABOLIC PANE Nick 10-31-2023 Albumin [Mass/Vol] 3.0 g/dL Low 3.2-5.3 [facility] Comment on above: Performed By: #### C BCA, CMP, THYR, HA1C, 63853-3 #### [facility] ([id number]) [address] [address] ALP [Catalytic activity/Vol] 109 U/L Normal 39-130 [facility] Comment on above: Performed By: #### C BCA, CMP, THYR, HA1C, 71504-4 #### [facility] ([id number]) [address] [address] ALT [Catalytic activity/Vol] 13 U/L Normal 0-31 [facility] Comment on above: Performed By: #### C BCA, CMP, THYR, HA1C, 53236-2 #### [facility] ([id number]) [address] [place] [address] Anion gap [Moles/Vol] 10 mmol/L Normal 5-[address] [facility] Comment on above: Performed By: #### C BCA, CMP, THYR, HA1C, 32090-1 #### [facility] ([id number]) [address], [address] [place] [address] AST [Catalytic activity/Vol] 19 U/L Normal 0-41 [facility] Comment on above: Performed By: #### C BCA, CMP, THYR, HA1C, 53817-7 #### [facility] ([id number]) [address] [place] [address] Bilirubin [Mass/Vol] 0.4 mg/dL Normal 0.3-1.2 [facility] Comment on above: Performed By: #### C BCA, CMP, THYR, HA1C, 94393-7 #### [facility] ([id number]) [address], [address] [place] [address] Calcium [Mass/Vol] 8.4 mg/dL Low 8.5-10.5 [facility] Comment on above: Performed By: #### C BCA, CMP, THYR, HA1C, 72186-6 #### [facility] ([id number]) [address] [place] [address] Chloride [Moles/Vol] 106 mmol/L Normal 98-109 [facility] Comment on above: Performed By: #### C BCA, CMP, THYR, HA1C, 20871-9 #### [facility] ([id number]) [address], [address] [place] [address] CO2 [Moles/Vol] 20 mmol/L Low 22-32 [facility] Comment on above: Performed By: #### C BCA, CMP, THYR, HA1C, 52720-7 #### [facility] ([id number]) [address], [address] [place] [address] Creatinine [Mass/Vol] 0.53 mg/dL Normal 0.40-1.[address] [facility] Comment on above: Result Comment: METH OD TRACEABLE TO IDMS STANDARD Performed By: #### C BCA, CMP, THYR, HA1C, 10176-8 #### [facility] ([id number]) [address] [place] [address] eGFR (CKD-EPI) NON-RACE DEPENDENT >90 Normal >59 [facility] Comment on above: Result Comment: Reported eGFR is based on the CKD-EPI 2020 equation that does not use a race coefficient. Performed By: #### C BCA, CMP, THYR, HA1C, 70792-5 #### [facility] ([id number]) [address] [address] Glucose [Mass/Vol] 134 mg/dL High 65-99 [facility] Comment on above: Performed By: #### C BCA, CMP, THYR, HA1C, 45120-5 #### [facility] ([id number]) [address] [address] Potassium [Moles/Vol] 3.7 mmol/L Normal 3.5-5.[address] [facility] Comment on above: Performed By: #### C BCA, CMP, THYR, HA1C, 45632-2 #### [facility] ([id number]) [address] [address] Protein [Mass/Vol] 5.9 g/dL Low 6.0-8.0 [facility] Comment on above: Performed By: #### C BCA, CMP, THYR, HA1C, 07991-9 #### [facility] ([id number]) [address] [place] [address] Sodium [Moles/Vol] 136 mmol/L Normal 134-146 [facility] Comment on above: Performed By: #### C BCA, CMP, THYR, HA1C, 95198-0 #### [facility] ([id number]) [address], [address] [place] [address] Urea nitrogen [Mass/Vol] 7 mg/dL Normal 5-23 [facility] Comment on above: Performed By: #### C BCA, CMP, THYR, HA1C, 78532-3 #### [facility] ([id number]) [address] [place] [address] DRUG SCREEN, URINEon 024 AMPHETAMINE/METHAMP Negative Normal NEG [facility] Comment on above: Result Comment: AMPH /METH screening cut off = 1000 ng/mL Performed By: #### D STAPLES #### [facility] ([id number]) [address], [address] [place] [address] BARBITURATES Negative Normal NEG [facility] Comment on above: Result Comment: Vandana iturates screening cut off value = 200 ng/mL Performed By: #### D STAPLES #### [facility] ([id number]) [address], [address] [place] [address] BENZODIAZEPINES Positive Abnormal NEG [facility] Comment on above: Result Comment: Conf irmation available upon request. Benzodiazepines screening cut off value = 200 ng/mL Performed By: #### D STAPLES #### [facility] ([id number]) [address] [place] [address] CANNABINOIDS Positive Abnormal NEG [facility] Comment on above: Result Comment: Conf irmation available upon request. Cannabinoids/THC screening cut off value = 50 ng/mL Performed By: #### D STAPLES #### [facility] ([id number]) [address] [place] [address] COCAINE METABOLITE Negative Normal NEG [facility] Comment on above: Result Comment: Coca ine screening cut off value = 300 ng/mL Performed By: #### D STAPLES #### [facility] ([id number]) [address], [address] [place] [address] ECSTASY Negative Normal [facility] Comment on above: Result Comment: Ecst asy screening cut off value = 500 ng/mL This report is intended for use in clinical monitoring or management of patients. Performed By: #### D STAPLES #### [facility] ([id number]) [address] [place] [address] METHADONE Negative Normal [facility] Comment on above: Result Comment: Meth adone screening cut off value = 300 ng/mL. Performed By: #### D STAPLES #### [facility] ([id number]) [address] [place] [address] OPIATES Negative Normal [facility] Comment on above: Result Comment: Opia satya screening cut off value = 300 ng/mL NOTE: This test is used for the detection of codeine, hydrocodone (>1000 ng/mL), morphine and hydromorphone (>900 ng/mL) in urine. Performed By: #### D STAPLES #### [facility] ([id number]) [address] [place] [address] OXYCODONE Negative [facility] Comment on above: Result Comment: Oxyc odone screening cut off value = 300 ng/mL NOTE: This test is used for the detection of oxycodone and oxymorphone in urine. Performed By: #### D STAPLES #### [facility] ([id number]) [address], [address] [place] [address] PHENCYCLIDINE Negative Normal [facility] Comment on above: Result Comment: Phen cyclidine screening cut off value = 25 ng/mL Performed By: #### D STAPLES #### [facility] ([id number]) [address] [place] [address] Glucose Glucometer (BldC) [M ass/Vol]on 10-31-2023 Glucose [Mass/Vol] 130 mg/dL High 65-99 [facility] HGB A1C (GLYCO-HGB)on 2023 Glucose [Mass/Vol] 148 mg/dL Normal [facility] Comment on above: Performed By: #### C BCA, CMP, THYR, HA1C, 92115-4 #### [facility] ([id number]) [address] [place] [address] HbA1c (Bld) [Mass fraction] 6.8 % High 4.4-5.6 [facility] Comment on above: Result Comment: NOTE ADA Guidelines Result HgbA1c Normal : less than 5.7 % Prediabetes : 5.7 % to 6.4 % Diabetes : > 6.4 % Use with caution in patients with abnormal hemoglobin variants as the half-life of red blood cells and in vivo glycation rates are affected. Performed By: #### C BCA, CMP, THYR, HA1C, 21354-1 #### [facility] ([id number]) [address] [place] [address] STREP B PCR VAG/RECTon 10-30 S. agalactiae Org specific cx Ql (Vag+Rectum) Negative Normal NEG [facility] Comment on above: Performed By: #### 7 2607-5 #### [facility] ([id number]) [address] [place] [address] T. pallidum IgG+IgM IA Ql (S )on 10-31-2023 Syphilis Total <0.2 Normal 0.0-0.8 [facility] Comment on above: Result Comment: NON REACTIVE No serologic evidence of infection to Treponema pallidum (syphilis). Repeat testing may be considered in patients with suspected acute or primary syphilis in 2 to 4 weeks. Performed By: #### C BCA, CMP, THYR, HA1C, 08500-8 #### [facility] ([id number]) [address] [place] [address] THYROID PROFILEon 10-31-2023 Free T4 [Mass/Vol] 0.75 ng/dL Normal 0.61-1.60 [facility] Comment on above: Performed By: #### C BCA, CMP, THYR, HA1C, 48431-3 #### [facility] ([id number]) [address], [address] [place] [address] TSH 2.80 uIU/mL Normal 0.49-4.67 [facility] Comment on above: Performed By: #### C BCA, CMP, THYR, HA1C, 03815-2 #### [facility] ([id number]) [address] [place] [address] URINALYSISon 10-31-2023 Bilirubin Ql (U) Negative Normal NEG [facility] Comment on above: Performed By: #### U A #### [facility] ([id number]) [address] [place] [address] BLOOD/HGB Negative Normal NEG [facility] Comment on above: Performed By: #### U A #### [facility] ([id number]) [address] [place] [address] Color (U) YELLOW Normal YELLOW [facility] Comment on above: Performed By: #### U A #### [facility] ([id number]) [address] [place] [address] Glucose Ql (U) 50 mg/dL Abnormal NEG [facility] Comment on above: Performed By: #### U A #### [facility] ([id number]) [address] [place] [address] Ketones Ql (U) 10 mg/dL Abnormal NEG [facility] Comment on above: Performed By: #### U A #### [facility] ([id number]) [address] [place] [address] Leukocyte esterase Test strip Ql (U) Large Abnormal NEG [facility] Comment on above: Performed By: #### U A #### [facility] ([id number]) [address], [address] [place] [address] MUCOUS PRESENT Abnormal NONE [facility] Comment on above: Performed By: #### U A #### [facility] ([id number]) [address] [place] [address] Nitrite Ql (U) Negative Normal NEG [facility] Comment on above: Performed By: #### U A #### [facility] ([id number]) [address] [place] [address] pH (U) 6.5 [pH] Normal 5.0-8.5 [facility] Comment on above: Performed By: #### U A #### [facility] ([id number]) [address] [place] [address] Protein Ql (U) 70 mg/dL Abnormal NEG [facility] Comment on above: Performed By: #### U A #### [facility] ([id number]) [address] [place] [address] R.B.CELLS 2 /hpf Normal 0-5 [facility] Comment on above: Performed By: #### U A #### [facility] ([id number]) [address] [place] [address] Specific gravity (U) [Rel density] 1.039 High 1.003-1.035 [facility] Comment on above: Performed By: #### U A #### [facility] ([id number]) [address] [place] [address] SQUAMOUS EPITHELIUM 18 /hpf High 0-5 [facility] Comment on above: Performed By: #### U A #### [facility] ([id number]) [address] [address] TURBIDITY HAZY Abnormal CLEAR [facility] Comment on above: Performed By: #### U A #### [facility] ([id number]) [address] [address] Urobilinogen Qn (U) 4 {Sariah'U}/dL High <1.1 [facility] Comment on above: Performed By: #### U A #### [facility] ([id number]) [address] [place] [address] W.B.CELLS 36 /hpf High 0-5 [facility] Comment on above: Performed By: #### U A #### [facility] ([id number]) [address] [place] [address] URINE CULTUREon 10-31-2023 Bacteria identified Cx Nom (U) SPECIMEN NOTES URINE RECEIVED WITHOUT PRESERVATIVE CULTURE RESULTS 10-50,000 ORGANISMS/mL NORMAL UROGENITAL LEANA Normal [facility] Comment on above: Performed By: #### C BCA, CMP, THYR, HA1C, 77756-7 #### [facility] ([id number]) [address] [address] VAGINITIS PANEL PCRon 2023 VAGINITIS PANEL PCR [...] clinical presentation to determine patient diagnosis. [facility] Comment on above: Performed By: #### C BCA, CMP, THYR, HA1C, 80890-1 #### [facility] ([id number]) [address], [address] [place] [address] ED Prov Noteon 10-13-2023 ED Prov Note ED PROVIDER NOTE [facility] NAME: Riri Dempsey AGE: 28 y.o. : 1995 VISIT DATE: 10/13/2023 CSN: [id number] PCP: Gaye Josue CNP Chief Complaint Patient [...] minutes she had diffuse abdominal tightness like [facility] contractions she said. 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 They recommended that she come to emergency department. Her local [place] does not have [employer] services so she came here. She typically gets her OB care at [facility] by Dr. Loy Asher. Additionally she [...] quantified by microscopic examination. Performed By: #### 0 6617 #### [address] [address] Diego Hamilton M.D. [id number] BILIRUBIN, URINE Positive Abnormal Negative [facility] [...] agents, rifampin, and pyridium. Performed By: #### 6 3690 #### [facility] [address] [place] [address] Diego Hamilton M.D. [id number] BLOOD, URINE Negative Normal [facility] Comment on above: Order Comment: Micro scopic examination is performed on all urinalysis samples and only positive findings are reported. The test for blood on the chemical analytic portion of urinalysis may also be positive due to hemoglobinuria and myoglobinuria and if red blood cells are present they are quantified by microscopic examination. Performed By: #### 4 6625 #### [facility] [address] [place] [address] iDego Hamilton M.D. [id number] Clarity (U) Clear Normal [facility] Comment on above: Order Comment: Micro scopic examination is performed on all urinalysis samples and only positive findings are reported. The test for blood on the chemical analytic portion of urinalysis may also be positive due to hemoglobinuria and myoglobinuria and if red blood cells are present they are quantified by microscopic examination. Performed By: #### 4 6625 #### [place] [address] Diego Hamilton M.D. [id number] Color (U) Kay Abnormal Colorless, Yellow [facility] [...] By: #### 4 6625 #### [facility] [address] [place] [address] Diego Hamilton M.D. [id number] Glucose Ql (U) Negative Normal Negative [facility] [...] By: #### 4 6625 #### [facility] [address] [place] [address] Diego Hamilton M.D. [id number] Ketones Ql (U) >=80 Abnormal Negative [facility] [...] By: #### 4 6625 #### [facility] [address] [place] [address] Diego Hamilton M.D. [id number] Leukocyte esterase Test strip Ql (U) Small [...] By: #### 4 6625 #### [facility] [address] [place] [address] Diego Hamilton M.D. [id number] NITRITE, URINE Negative Normal [facility] Comment on above: Order Comment: Micro scopic examination is performed on all urinalysis samples and only positive findings are reported. The test for blood on the chemical analytic portion of urinalysis may also be positive due to hemoglobinuria and myoglobinuria and if red blood cells are present they are quantified by microscopic examination. Performed By: #### 4 6625 #### [facility] [address] [place] [address] Diego Hamilton M.D. [id number] pH (U) 6.5 [pH] Normal 5.0-7.0 [facility] [...] By: #### 4 6625 #### [facility] [address] [place] [address] Diego Hamilton M.D. [id number] Protein (U) [Mass/Vol] 30 mg/dL Abnormal Negative [facility] Comment on above: Order Comment: Micro [...] compounds. Performed By: #### 4 6625 #### [place] [address] Diego Hamilton M.D. [id number] RBC LM.HPF (Urine sed) [#/Area] 2 /[HPF] [...] examination. Performed By: #### 4 6625 #### [place] [address] Diego Hamilton M.D. [id number] Specific gravity (U) [Rel density] >= High [...] examination. Performed By: #### 4 6625 #### [place] [address] Diego Hamilton M.D. [id number] SQUAMOUS EPITHELIAL 7 /hpf High 0-4 [facility] Comment on above: Order Comment: Micro scopic examination is performed on all urinalysis samples and only positive findings are reported. The test for blood on the chemical analytic portion of urinalysis may also be positive due to hemoglobinuria and myoglobinuria and if red blood cells are present they are quantified by microscopic examination. Performed By: #### 4 6625 #### LAB [address] [place] [address] Diego Hamilton M.D. [id number] UROBILINOGEN, URINE <2.0 Normal <2.0 [facility] Comment on above: Order Comment: Micro scopic examination is performed on all urinalysis samples and only positive findings are reported. The test for blood on the chemical analytic portion of urinalysis may also be positive due to hemoglobinuria and myoglobinuria and if red blood cells are present they are quantified by microscopic examination. Performed By: #### 4 6625 #### [facility] [address] [place] [address] Diego Hamilton M.D. [id number] WBC LM.HPF (Urine sed) [#/Area] 45 /[HPF] [...] examination. Performed By: #### 4 6625 #### LAB [address] [place] [address] Diego Hamilton M.D. [id number] URINE AEROBIC CULTUREon 10-03 URINE AEROBIC CULTURE URINE CULTURE No Growth (<1,000 CFU/mL) Normal [facility] Comment on above: Performed By: #### 4 4053 #### [facility] [address] [place], [place] [address] Hilton Fox M.D. [id number] Basic Metabolic Profon 10-08 Anion gap [Moles/Vol] 18 mmol/L High 9-17 [facility] Comment on above: Performed By: #### C DP, BMP #### [facility] [address] [place] [address] Senior Payroll Administrator: Zayra Chapman MD BUN/CRE Ratio 18 Normal 9-20 [facility] Comment on above: Performed By: #### C DP, BMP #### [facility] [address] [place] [address] Senior Payroll Administrator: Zayra Chapman MD Calcium [Mass/Vol] 8.7 mg/dL Normal 8.6-10.4 [facility] Comment on above: Performed By: #### C DP, BMP #### [facility] [address] [place] [address] Senior Payroll Administrator: Zayra Chapman MD Chloride [Moles/Vol] 103 mmol/L Normal 98-107 [facility] Comment on above: Performed By: #### C DP, BMP #### [facility] [address] [place] [address] Senior Payroll Administrator: Zayra Chapman MD CO2 [Moles/Vol] 15 mmol/L Low 20-31 [facility] Comment on above: Performed By: #### C DP, BMP #### [facility] [address] [place], [place] [phone] Senior Payroll Administrator: Zayra Chapman MD Creatinine [Mass/Vol] 0.4 mg/dL Low 0.5-0.9 [facility] Comment on above: Performed By: #### C DP, BMP #### [facility] [address] [place], [place] [phone] Senior Payroll Administrator: Zayra Chapman MD GFR/1.73 sq M.predicted among non-blacks MDRD (S/P/Bld) [Vol rate/Area] mL/min/{1.73_m2} Normal >60 [facility] Comment on above: Result Comment: These [...] Performed By: #### C DP, BMP #### [facility] [address] [place], [place] [phone] Senior Payroll Administrator: Zayra Chapman MD Glucose [Mass/Vol] 143 mg/dL High 70-99 [facility] Comment on above: Performed By: #### C DP, BMP #### [facility] [address] [place] [address] Senior Payroll Administrator: Zayra Chapman MD Potassium [Moles/Vol] 3.6 mmol/L Low 3.7-5.3 [facility] Comment on above: Performed By: #### C DP, BMP #### [facility] [address] [place] [address] Senior Payroll Administrator: Zayra Chapman MD Sodium [Moles/Vol] 136 mmol/L Normal 135-144 [facility] Comment on above: Performed By: #### C DP, BMP #### [facility] [address] [place] [address] Senior Payroll Administrator: Zayra Chapman MD Urea nitrogen [Mass/Vol] 7 mg/dL Normal 6-20 [facility] Comment on above: Performed By: #### C DP, BMP #### [facility] [address] [place] [address] Senior Payroll Administrator: Zayra Chapman MD CBC with Diffon 10-09-2023 Abs. Basophil 0.04 k/uL Normal 0.00-0.20 [facility] Comment on above: Performed By: #### C DP, BMP #### [facility] [address] [place] [phone] Senior Payroll Administrator: Zayra Chapman MD Abs.Imm.Granulocyte 0.03 k/uL Normal 0.00-0.30 [facility] Comment on above: Performed By: #### C DP, BMP #### [facility] [address] [place], [place] [phone] Senior Payroll Administrator: Zayra Chapman MD Abs.Neutrophil (Seg) 6.85 k/uL Normal 2.5-7.0 [facility] Comment on above: Performed By: #### C DP, BMP #### [facility] [address] [place] [address] Senior Payroll Administrator: Zayra Chapman MD Basophils/100 WBC (Bld) 0 % Normal 0-2 [facility] Comment on above: Performed By: #### C DP, BMP #### [facility] [address] [place] [phone] Senior Payroll Administrator: Zayra Chapman MD Eosinophils (Bld) [#/Vol] 0.08 10*3/uL Normal 0.00-0.40 [facility] Comment on above: Performed By: #### C DP, BMP #### [facility] [address] [place] [address] Senior Payroll Administrator: Zayra Chapman MD Eosinophils/100 WBC (Bld) 1 % Normal 0-5 [facility] Comment on above: Performed By: #### C DP, BMP #### [facility] [address] [place] [address] Senior Payroll Administrator: Zayra Chapman MD Erythrocyte distribution width (RBC) [Ratio] 13.1 % Normal 12.1-15.2 [facility] Comment on above: Performed By: #### C DP, BMP #### [facility] [address] [place] [address] Senior Payroll Administrator: Zayra Chapman MD Hematocrit (Bld) [Volume fraction] 31.5 % Low 36.0-46.0 [facility] Comment on above: Performed By: #### C DP, BMP #### [facility] [address] [place] [phone] Senior Payroll Administrator: Zayra Chapman MD Hemoglobin (Bld) [Mass/Vol] 10.3 g/dL Low 12.0-16.0 [facility] Comment on above: Performed By: #### C DP, BMP #### [facility] [address] [place], [place] [phone] Senior Payroll Administrator: Zayra Chapman MD Immature granulocytes/100 WBC (Bld) 0 % Normal 0-5 [facility] Comment on above: Performed By: #### C DP, BMP #### [facility] [address] [place], [place] [phone] Senior Payroll Administrator: Zayra Chapman MD Lymphocytes (Bld) [#/Vol] 1.83 10*3/uL Normal 1.00-4.80 [facility] Comment on above: Performed By: #### C DP, BMP #### [facility] [address] [place], [place] [phone] Senior Payroll Administrator: Zayra Chapman MD Lymphocytes/100 WBC (Bld) 20 % Normal 15-40 [facility] Comment on above: Performed By: #### C DP, BMP #### [facility] [address] [place], [place] [phone] Senior Payroll Administrator: Zayra Chapman MD MCH (RBC) [Entitic mass] 27.4 pg Normal 26.0-34.0 [facility] Comment on above: Performed By: #### C DP, BMP #### [facility] [address] [place], [place] [phone] Senior Payroll Administrator: Zayra Chapman MD MCHC (RBC) [Mass/Vol] 32.7 g/dL Normal 31.0-37.0 [facility] Comment on above: Performed By: #### C DP, BMP #### [facility] [address] [place], [place] [phone] Senior Payroll Administrator: Zayra Chapman MD MCV (RBC) [Entitic vol] 83.8 fL Normal 80.0-100.0 [facility] Comment on above: Performed By: #### C DP, BMP #### [facility] [address] [place] [address] [phone] Senior Payroll Administrator: Zayra Chapman MD Monocytes (Bld) [#/Vol] 0.50 10*3/uL Normal 0.00-1.00 [facility] Comment on above: Performed By: #### C DP, BMP #### [facility] [address] [place] [address] ([phone] Senior Payroll Administrator: Zayra Chapman MD Monocytes/100 WBC (Bld) 5 % Normal 4-8 [facility] Comment on above: Performed By: #### C DP, BMP #### [facility] [address] [place] [address] Senior Payroll Administrator: Zayra Chapman MD Neutrophil (Seg) 74 % Normal 47-75 [facility] Comment on above: Performed By: #### C DP, BMP #### [facility] [address] [place] [address] Senior Payroll Administrator: Zayra Chapman MD Platelet mean volume (Bld) [Entitic vol] 11.3 fL Normal 6.0-12.0 [facility] Comment on above: Performed By: #### C DP, BMP #### [facility] [address] [place] [address] ([phone] Senior Payroll Administrator: Zayra Chapman MD Platelets (Bld) [#/Vol] 201 10*3/uL Normal 140-450 [facility] Comment on above: Performed By: #### C DP, BMP #### [facility] [address] [place] [address] ([phone] Senior Payroll Administrator: Zayra Chapman MD RBC (Bld) [#/Vol] 3.76 10*6/uL Low 4.00-5.20 [facility] Comment on above: Performed By: #### C DP, BMP #### [facility] [address] [place] [address] Senior Payroll Administrator: Zayra Chapman MD WBC (Bld) [#/Vol] 9.3 10*3/uL Normal 3.5-11.0 [facility] Comment on above: Performed By: #### C DP, BMP #### [facility] [address] [place] [address] Senior Payroll Administrator: Zayra Chapman MD Cult,Urineon 08-20-2023 Cult,Urine Specimen Description .CLEAN CATCH URINE Culture NO SIGNIFICANT GROWTH Report Status FINAL 08/20/2023 Normal [facility] Comment on above: Performed By: #### U MICAO, UHCG, UA #### [facility] [address] [place] [address] Senior Payroll Administrator: Zayra Chapman MD Ultrasound - Officeon 2023 Radiology Study observation (narrative) [facility] HIV 1&2 AB/AG Screen (P24 AG )on 06-20-2023 HIV 1&2 AB/AG Negative [facility] Hemoglobin A1con 06-20-2023 HbA1c (Bld) [Mass fraction] 7.2 % Abnormal 4.0 - 6.0 % [facility] Interpretation and review of laboratory results Abnormal [facility] Hepatitis B surface antigeno n 06-20-2023 Hepatitis B Surface Antigen Negative [facility] No Panel Informationon 06-20 [facility] Rubella IGG immune statuson 06-20-2023 Rubella immune IgG immune [facility] Syphilis Total(Unknown Syphi lis Status)on 06-20-2023 Syphilis Non-Reactive [facility] Type and screenon 06-20-2023 Abo/Rh(D) Positive [facility] Ultrasound - Officeon 2023 [facility] CBC with Diffon 02-13-2023 Abs. Basophil 0.01 k/uL Normal 0.00-0.20 [facility] Comment on above: Performed By: #### L IPR, T4, GLYHGB, T3 #### [place] [address] [place] [address] Senior Payroll Administrator: Antoine Wilson MD #### CP, TSH, CDP, ZFAST #### [facility] [address] [place], [place] [phone] Senior Payroll Administrator: Zayra Chapman MD Abs.Imm.Granulocyte 0.02 k/uL Normal 0.00-0.30 [facility] Comment on above: Performed By: #### L IPR, T4, GLYHGB, T3 #### [address] [phone] Senior Payroll Administrator: Antoine Wilson MD #### CP, TSH, CDP, ZFAST #### [facility] [address] [place], [place] [phone] Senior Payroll Administrator: Zayra Chapman MD Abs.Neutrophil (Seg) 4.27 k/uL Normal 2.5-7.0 [facility] Comment on above: Performed By: #### L IPR, T4, GLYHGB, T3 #### [address] [phone] Senior Payroll Administrator: Antoine Wilson MD #### CP, TSH, CDP, ZFAST #### [facility] [address] [place], [place] [phone] Senior Payroll Administrator: Zayra Chapman MD Basophils/100 WBC (Bld) 0 % Normal 0-2 M [facility] Comment on above: Performed By: #### L IPR, T4, GLYHGB, T3 #### [address] [phone] Senior Payroll Administrator: Antoine Wilson MD #### CP, TSH, CDP, ZFAST #### [facility] [address] [place], [place] [phone] Senior Payroll Administrator: Zayra Chapman MD Eosinophils (Bld) [#/Vol] 0.07 10*3/uL Normal 0.00-0.40 [facility] Comment on above: Performed By: #### L IPR, T4, GLYHGB, T3 #### [address] [phone] Senior Payroll Administrator: Antoine Wilson MD #### CP, TSH, CDP, ZFAST #### [facility] [address] [place] [address] Senior Payroll Administrator: Zayra Chapman MD Eosinophils/100 WBC (Bld) 1 % Normal 0-5 [facility] Comment on above: Performed By: #### L IPR, T4, GLYHGB, T3 #### [address] [phone] Senior Payroll Administrator: Antoine Wilson MD #### CP, TSH, CDP, ZFAST #### [facility] [address] [place] [address] Senior Payroll Administrator: Zayra Chapman MD Erythrocyte distribution width (RBC) [Ratio] 13.2 % Normal 12.1-15.2 [facility] Comment on above: Performed By: #### L IPR, T4, GLYHGB, T3 #### [place] [phone] Senior Payroll Administrator: Antoine Wilson MD #### CP, TSH, CDP, ZFAST #### [facility] [address] [place] [phone] Senior Payroll Administrator: Zayra Chapman MD Hematocrit (Bld) [Volume fraction] 41.9 % Normal 36.0-46.0 [facility] Comment on above: Performed By: #### L IPR, T4, GLYHGB, T3 #### [place] [phone] Senior Payroll Administrator: Antoine Wilosn MD #### CP, TSH, CDP, ZFAST #### [facility] [address] [place] [phone] Senior Payroll Administrator: Zayra Chapman MD Hemoglobin (Bld) [Mass/Vol] 13.5 g/dL Normal 12.0-16.0 [facility] Comment on above: Performed By: #### L IPR, T4, GLYHGB, T3 #### [address] [address] Senior Payroll Administrator: Antoine Wilson MD #### CP, TSH, CDP, ZFAST #### [facility] [address] [place], [place] [phone] Senior Payroll Administrator: Zayra Chapman MD Immature granulocytes/100 WBC (Bld) 0 % Normal 0-5 [facility] Comment on above: Performed By: #### L IPR, T4, GLYHGB, T3 #### [address] [phone] Senior Payroll Administrator: Antoine Wilson MD #### CP, TSH, CDP, ZFAST #### [facility] [address] [place], [place] [phone] Senior Payroll Administrator: Zayra Chapman MD Lymphocytes (Bld) [#/Vol] 1.14 10*3/uL Normal 1.00-4.80 [facility] Comment on above: Performed By: #### L IPR, T4, GLYHGB, T3 #### [address] [phone] Senior Payroll Administrator: Antoine Wilson MD #### CP, TSH, CDP, ZFAST #### [facility] [address] [place], [place] [phone] Senior Payroll Administrator: Zayra Chapman MD Lymphocytes/100 WBC (Bld) 20 % Normal 15-40 [facility] Comment on above: Performed By: #### L IPR, T4, GLYHGB, T3 #### [address] [phone] Senior Payroll Administrator: Antoine Wilson MD #### CP, TSH, CDP, ZFAST #### [facility] [address] [place] [address] Senior Payroll Administrator: Zayra Chapman MD MCH (RBC) [Entitic mass] 26.6 pg Normal 26.0-34.0 [facility] Comment on above: Performed By: #### L IPR, T4, GLYHGB, T3 #### [address] [phone] Senior Payroll Administrator: Antoine Wilson MD #### CP, TSH, CDP, ZFAST #### [facility] [address] [place] [address] Senior Payroll Administrator: Zayra Chapman MD MCHC (RBC) [Mass/Vol] 32.2 g/dL Normal 31.0-37.0 [facility] Comment on above: Performed By: #### L IPR, T4, GLYHGB, T3 #### [place] [phone] Senior Payroll Administrator: Antoine Wilson MD #### CP, TSH, CDP, ZFAST #### [facility] [address] [place] [address] Senior Payroll Administrator: Zayra Chapman MD MCV (RBC) [Entitic vol] 82.6 fL Normal 80.0-100.0 M [facility] Comment on above: Performed By: #### L IPR, T4, GLYHGB, T3 #### [address] [phone] Senior Payroll Administrator: Antoine Wilson MD #### CP, TSH, CDP, ZFAST #### [facility] [address] [place] [address] Senior Payroll Administrator: Zayra Chapman MD Monocytes (Bld) [#/Vol] 0.30 10*3/uL Normal 0.00-1.00 [facility] Comment on above: Performed By: #### L IPR, T4, GLYHGB, T3 #### [facility] [address] [place] [address] Senior Payroll Administrator: Antoine Wilson MD #### CP, TSH, CDP, ZFAST #### [facility] [address] [place] [address] Senior Payroll Administrator: Zayra Chapman MD Monocytes/100 WBC (Bld) 5 % Normal 4-8 M [facility] Comment on above: Performed By: #### L IPR, T4, GLYHGB, T3 #### [address] [address] Senior Payroll Administrator: Antoine Wilson MD #### CP, TSH, CDP, ZFAST #### [facility] [address] [place], [place] [phone] Senior Payroll Administrator: Zayra Chapman MD Neutrophil (Seg) 74 % Normal 47-75 [facility] Comment on above: Performed By: #### L IPR, T4, GLYHGB, T3 #### [address] [address] Senior Payroll Administrator: Antoine Wilson MD #### CP, TSH, CDP, ZFAST #### [facility] [address] [place], [place] [phone] Senior Payroll Administrator: Zayra Chapman MD Platelet mean volume (Bld) [Entitic vol] 11.0 fL Normal 6.0-12.0 [facility] Comment on above: Performed By: #### L IPR, T4, GLYHGB, T3 #### [address] [phone] Senior Payroll Administrator: Antoine Wilson MD #### CP, TSH, CDP, ZFAST #### [facility] [address] [place], [place] [phone] Senior Payroll Administrator: Zayra Chapman MD Platelets (Bld) [#/Vol] 206 10*3/uL Normal 140-450 [facility] Comment on above: Performed By: #### L IPR, T4, GLYHGB, T3 #### [address] [address] Senior Payroll Administrator: Antoine Wilson MD #### CP, TSH, CDP, ZFAST #### [facility] [address] [place], [place] [phone] Senior Payroll Administrator: Zayra Chapman MD RBC (Bld) [#/Vol] 5.07 10*6/uL Normal 4.00-5.20 [facility] Comment on above: Performed By: #### L IPR, T4, GLYHGB, T3 #### [address] [phone] Senior Payroll Administrator: Antoine Wilson MD #### CP, TSH, CDP, ZFAST #### [facility] [address] [place], [place] [phone] Senior Payroll Administrator: Zayra Chapman MD WBC (Bld) [#/Vol] 5.8 10*3/uL Normal 3.5-11.0 [facility] Comment on above: Performed By: #### L IPR, T4, GLYHGB, T3 #### [address] [address] Senior Payroll Administrator: Antoine Wilson MD #### CP, TSH, CDP, ZFAST #### [facility] [address] [place], [place] [phone] Senior Payroll Administrator: Zayra Chapman MD Comp Metabolic Profon 2022 Albumin [Mass/Vol] 4.3 g/dL Normal 3.5-5.2 [facility] Comment on above: Performed By: #### L IPR, T4, GLYHGB, T3 #### [address] [address] Senior Payroll Administrator: Antoine Wilson MD #### CP, TSH, CDP, ZFAST #### [facility] [address] [place], [place] [phone] Senior Payroll Administrator: Zayra Chapman MD Alkaline Phos 127 U/L High 35-104 [facility] Comment on above: Performed By: #### L IPR, T4, GLYHGB, T3 #### [address] [phone] Senior Payroll Administrator: Antoine Wilson MD #### CP, TSH, CDP, ZFAST #### [facility] [address] [place], [place] [phone] Senior Payroll Administrator: Zayra Chapman MD ALT [Catalytic activity/Vol] 51 U/L High 5-33 [facility] Comment on above: Performed By: #### L IPR, T4, GLYHGB, T3 #### [address] [phone] Senior Payroll Administrator: Antoine Wilson MD #### CP, TSH, CDP, ZFAST #### [facility] [address] [place], [place] [phone] Senior Payroll Administrator: Zayra Chapman MD Anion gap [Moles/Vol] 12 mmol/L Normal 9-17 [facility] Comment on above: Performed By: #### L IPR, T4, GLYHGB, T3 #### [address] [phone] Senior Payroll Administrator: Antoine Wilson MD #### CP, TSH, CDP, ZFAST #### [facility] [address] [place], [place] [phone] Senior Payroll Administrator: Zayra Chapman MD AST [Catalytic activity/Vol] 31 U/L Normal <32 [facility] Comment on above: Performed By: #### L IPR, T4, GLYHGB, T3 #### [address] [phone] Senior Payroll Administrator: Antoine Wilson MD #### CP, TSH, CDP, ZFAST #### [facility] [address] [place], [place] [phone] Senior Payroll Administrator: Zayra Chapman MD Bilirubin [Mass/Vol] 0.3 mg/dL Normal 0.3-1.2 [facility] Comment on above: Performed By: #### L IPR, T4, GLYHGB, T3 #### [address] [phone] Senior Payroll Administrator: Antoine Wilson MD #### CP, TSH, CDP, ZFAST #### [facility] [address] [place] [address] Senior Payroll Administrator: Zayra Chapman MD BUN/CRE Ratio 16 Normal 9-20 [facility] Comment on above: Performed By: #### L IPR, T4, GLYHGB, T3 #### [address] [phone] Senior Payroll Administrator: Antoine Wilson MD #### CP, TSH, CDP, ZFAST #### [facility] [address] [place], [place] [address] Senior Payroll Administrator: Zayra Chapman MD Calcium [Mass/Vol] 9.0 mg/dL Normal 8.6-10.4 [facility] Comment on above: Performed By: #### L IPR, T4, GLYHGB, T3 #### [address] [id number] Senior Payroll Administrator: Antoine Wilson MD #### CP, TSH, CDP, ZFAST #### [facility] [address] [place], [place] [phone] Senior Payroll Administrator: Zayra Chapman MD Chloride [Moles/Vol] 100 mmol/L Normal 98-107 [facility] Comment on above: Performed By: #### L IPR, T4, GLYHGB, T3 #### [address] [phone] Senior Payroll Administrator: Antoine Wilson MD #### CP, TSH, CDP, ZFAST #### [facility] [address] [place], [place] [phone] Senior Payroll Administrator: Zayra Chapman MD CO2 [Moles/Vol] 24 mmol/L Normal 20-31 [facility] Comment on above: Performed By: #### L IPR, T4, GLYHGB, T3 #### [address] [id number] Senior Payroll Administrator: Antoine Wilson MD #### CP, TSH, CDP, ZFAST #### [facility] [address] [place], [place] [phone] Senior Payroll Administrator: Zayra Chapman MD Creatinine [Mass/Vol] 0.7 mg/dL Normal 0.5-0.9 [facility] Comment on above: Performed By: #### L IPR, T4, GLYHGB, T3 #### [address] [phone] Senior Payroll Administrator: Antoine Wilson MD #### CP, TSH, CDP, ZFAST #### [facility] [address] [place], [place] [phone] Senior Payroll Administrator: Zayra Chapman MD GFR/1.73 sq M.predicted among non-blacks MDRD (S/P/Bld) [Vol rate/Area] mL/min/{1.73_m2} Normal >60 [facility] Comment on above: Result Comment: These [...] #### L IPR, T4, GLYHGB, T3 #### [address] [phone] Senior Payroll Administrator: Antoine Wilson MD #### CP, TSH, CDP, ZFAST #### [facility] [address] [place], [place] [phone] Senior Payroll Administrator: Zayra Chapman MD Glucose [Mass/Vol] 367 mg/dL High 70-99 [facility] Comment on above: Performed By: #### L IPR, T4, GLYHGB, T3 #### [address] [phone] Senior Payroll Administrator: Antoine Wilson MD #### CP, TSH, CDP, ZFAST #### [facility] [address] [place], [place] [phone] Senior Payroll Administrator: Zayra Chapman MD Potassium [Moles/Vol] 4.3 mmol/L Normal 3.7-5.3 [facility] Comment on above: Performed By: #### L IPR, T4, GLYHGB, T3 #### [address] [phone] Senior Payroll Administrator: Antoine Wilson MD #### CP, TSH, CDP, ZFAST #### [facility] [address] [place], [place] [phone] Senior Payroll Administrator: Zayra Chapman MD Protein [Mass/Vol] 7.0 g/dL Normal 6.4-8.3 [facility] Comment on above: Performed By: #### L IPR, T4, GLYHGB, T3 #### [address] [phone] Senior Payroll Administrator: Antoine Wilson MD #### CP, TSH, CDP, ZFAST #### [facility] [address] [place], [place] [phone] Senior Payroll Administrator: Zayra Chapman MD Sodium [Moles/Vol] 136 mmol/L Normal 135-144 [facility] Comment on above: Performed By: #### L IPR, T4, GLYHGB, T3 #### [facility] [address] [place] [address] Senior Payroll Administrator: Antoine Wilson MD #### CP, TSH, CDP, ZFAST #### [facility] [address] [place], [place] [phone] Senior Payroll Administrator: Zayra Chapman MD Urea nitrogen [Mass/Vol] 11 mg/dL Normal 6-20 [facility] Comment on above: Performed By: #### L IPR, T4, GLYHGB, T3 #### [facility] [address] [place], [place] [phone] Senior Payroll Administrator: Antoine Wilson MD #### CP, TSH, CDP, ZFAST #### [facility] [address] [place], [place] [phone] Senior Payroll Administrator: Zayra Chapman MD Hemoglobin A1Con 02-13-2023 Glucose [Mass/Vol] 280 mg/dL Normal [facility] Comment on above: Result Comment: The ADA and AACC recommend providing the estimated average glucose result to permit better patient understanding of their HBA1c result. Performed By: #### Julien DAVIDSON JOYCELYN, UA #### [facility] [address] [place], [place] [phone] Senior Payroll Administrator: Zayra Chapman MD HbA1c (Bld) [Mass fraction] 11.4 % High 4.0-6.0 [facility] Comment on above: Performed By: #### Julien DAVIDSON JOYCELYN, UA #### [facility] [address] [place], [place] [phone] Senior Payroll Administrator: Zayra Chapman MD Lipid Profileon 02-13-2023 Cholesterol [Mass/Vol] 215 mg/dL High 0-199 [facility] Comment on above: Result Comment: Cholesterol Guidelines: <200 Desirable 200-240 Borderline >240 Undesirable Performed By: #### JESSICA LOWRY, UA #### [facility] [address] [place] [address] Senior Payroll Administrator: Zayra Chapman MD Cholesterol in HDL [Mass/Vol] 27 mg/dL Low >40 [facility] Comment on above: Result Comment: HDL Guidelines: <40 Undesirable 40-59 Borderline >59 Desirable Performed By: #### U STUART [facility], UA #### [facility] [address] [place], [place] [phone] Senior Payroll Administrator: Zayra Chapman MD Cholesterol in LDL [Mass/Vol] 130 mg/dL High 0-100 [facility] Comment on above: Result Comment: LDL Guidelines: <100 Desirable 100-129 Near to/above Desirable 130-159 Borderline >159 Undesirable Direct (measured) LDL and calculated LDL are not interchangeable tests. Performed By: #### Julien DAVIDSON [facility], UA #### [facility] [address] [place], [place] [phone] Senior Payroll Administrator: Zayra Chapman MD Cholesterol in VLDL [Mass/Vol] 58 mg/dL Normal [facility] Comment on above: Performed By: #### Julien DAVIDSON [facility], UA #### [facility] [address] [place] [address] Senior Payroll Administrator: Zayra Chapman MD Cholesterol.total/Otilia sterol in HDL [Mass ratio] 8.0 {ratio} Normal [facility] Comment on above: Performed By: #### Julien DAVIDSON [facility], UA #### [facility] [address] [place] [address] Senior Payroll Administrator: Zayra Chapman MD Triglyceride [Mass/Vol] 291 mg/dL High 0-149 M [facility] Comment on above: Result Comment: Triglyceride Guidelines: <150 Desirable 150-199 Borderline 200-499 High >499 Very high Based on AHA Guidelines for fasting triglyceride, February 2012. Performed By: #### U STUART [facility], UA #### [facility] [address] [place] [address] Senior Payroll Administrator: Zayra Chapman MD Patient fasting?on 3 Patient fasting? YES Normal [facility] Comment on above: Performed By: #### L IPR, T4, GLYHGB, T3 #### [facility] [address] [place], [place] [phone] Senior Payroll Administrator: Antoine Wilson MD #### CP, TSH, CDP, ZFAST #### [facility] [address] [place], [place] [phone] Senior Payroll Administrator: Zayra Chapman MD Thyroid Stim. Horm.on 2022 Thyroid Stim. Horm. 1.43 uIU/mL Normal 0.30-5.00 [facility] Comment on above: Performed By: #### Julien DAVIDSON [facility], UA #### [facility] [address] [place], [place] [phone] Senior Payroll Administrator: Zayra Chapman MD Thyroxine T4on 02-13-2023 T4 [Mass/Vol] 5.9 ug/dL Normal 4.5-11.7 [facility] Comment on above: Performed By: #### Julien DAVIDSON [facility], UA #### [facility] [address] [place], [place] [phone] Senior Payroll Administrator: Zayra Chapman MD Triiodothyronine T3on 2022 Triiodothyronine T3 109 ng/dL Normal 80-200 [facility] Comment on above: Performed By: #### Julien DAVIDSON [facility], UA #### [facility] [address] [place], [place] [phone] Senior Payroll Administrator: Zayra Chapman MD Chlamydia/GC DNA, Uron 12-23 Chlamydia Probe, Ur Negative Normal NEG [facility] Comment on above: Result Comment: CHLA [...] target. Performed By: #### U CGP #### [facility] [employer] [address] [place] [address] Senior Payroll Administrator: Antoine Wilson MD Gonorrhea Probe, Ur Negative Normal NEG [facility] Comment on above: Result Comment: NEIS SERIA [...] target. Performed By: #### U CGP #### [address] [address] Senior Payroll Administrator: Antoine Wilson MD Cult,Urineon 12-21-2022 Cult,Urine Specimen [...] Tobramycin 8 INTERMEDIATE Trimethoprim/Sulfa >=320 RESISTANT Resistant [facility] Comment on above: Performed By: #### U RC #### [address] [phone] Senior Payroll Administrator: Antoine Wilson MD [facility] [address] [place] [address] Senior Payroll Administrator: Zayra Chapman MD HCG, ,Urineon 12-19 Beta HCG ( test) Ql (U) Negative Normal NEG [facility] Comment on above: Performed By: #### U MICAO, [facility], UA #### [facility] [address] [place] [address] Senior Payroll Administrator: Zayra Chapman MD Microscopic Urinalysison - [facility] Bacteria LM Ql (Urine sed) 4+ Abnormal None [facility] Epithelial cells LM.HPF (Urine sed) [#/Area] 2 TO 5 /HPF [facility] Interpretation and review of laboratory results Abnormal [facility] RBC LM.HPF (Urine sed) [#/Area] 2 TO 5 [facility] WBC LM.HPF (Urine sed) [#/Area] 50 TO 100 0 /HPF [facility] Yeast LM Ql (Urine sed) OCCASIONAL Abnormal None B ON [facility] , Urineon 3 HCG ( test) Ql (U) Negative NEGATIVE [facility] Urinalysison 12-19-2022 Bilirubin Ql (U) Negative [facility]GATIVE [facility] Clarity (U) Cloudy Abnormal Clear [facility] Color (U) Yellow Yellow [facility] Comment [facility] Glucose Test strip (U) [Mass/Vol] 1000 mg/dL Abnormal NEGATIVE mg/dL [facility] Hemoglobin Auto test strip Ql (U) 1+ Abnormal NEGATIVE [facility] Interpretation and review of laboratory results Abnormal [facility] Ketones (U) [Mass/Vol] Negative NEGAT [place] mg/dL [facility] Leukocyte esterase Test strip Ql (U) 3+ Abnormal NEGATIVE [facility] Nitrite Ql (U) Positive Abnormal NEGATIVE [facility] pH (U) 6.0 [pH] 5.0 - 8.0 [facility] Protein (U) [Mass/Vol] 1+ Abnormal NEGAT [place] mg/dL [facility] Specific gravity (U) [Rel density] 1.010 1.005 - 1.030 [facility] Urobilinogen Qn (U) Normal 0.0 - 1. 0 EU/dL [facility] Urinalysis, Routineon 2022 Bilirubin, SemiQt,Ur Negative Normal NEG [facility] Comment on above: Performed By: #### U MICAO, CG, UA #### [facility] [address] [place] [address] Senior Payroll Administrator: Zayra Chapman MD Blood, Urine 1+ Abnormal NEG [facility] Comment on above: Performed By: #### U MICAO, [facility], UA #### [facility] [address] [place] [address] Senior Payroll Administrator: Zayra Chapman MD Clarity (U) Cloudy Abnormal CLEAR [facility] Comment on above: Performed By: #### U SAMIRAO, [facility], UA #### [facility] [address] [place] [address] Senior Payroll Administrator: Zayra Chapman MD Color (U) Yellow Normal YEL [facility] Comment on above: Performed By: #### U SAMIRAO, [facility], UA #### [facility] [address] [place] [address] Senior Payroll Administrator: Zayra Chapman MD Comment Normal [facility] Comment on above: Performed By: #### U SAMIRAO, [facility], UA #### [facility] [address] [place], [place] [phone] Senior Payroll Administrator: Zayra Chapman MD Glucose Ql (U) 1000 mg/dL Abnormal NEG [facility] Comment on above: Performed By: #### U MICAO, [facility], UA #### [facility] [address] [place], [place] [phone] Senior Payroll Administrator: Zayra Chapman MD Ketones Ql (U) Negative Normal NEG [facility] Comment on above: Performed By: #### [facility], [facility] #### [facility] [address] [place] [address] Senior Payroll Administrator: Zayra Chapman MD Leukocyte esterase Test strip Ql (U) 3+ Abnormal NEG [facility] Comment on above: Performed By: #### U MICAO, [facility], UA #### [facility] [address] [place] [address] Senior Payroll Administrator: Zayra Chapman MD Nitrite,Ur Positive Abnormal NEG [facility] Comment on above: Performed By: #### U MICAO, [facility], UA #### [facility] [address] [place] [address] Senior Payroll Administrator: Zayra Chapman MD PH,Ur 6.0 Normal 5.0-8.0 [facility] Comment on above: Performed By: #### U SAMIRAO, [facility], UA #### [facility] [address] [place] [address] Senior Payroll Administrator: Zayra Chapman MD Protein Ql (U) 1+ mg/dL Abnormal NEG [facility] Comment on above: Performed By: #### U STUART, [facility], UA #### [facility] [address] [place] [address] Senior Payroll Administrator: Zayra Chapman MD Spec. [place],Ur 1.010 Normal 1.005-1.030 [facility] Comment on above: Performed By: #### U MICAO, [facility], UA #### [facility] [address] [place] [address] Senior Payroll Administrator: Zayra Chapman MD Urobilinogen,Ur Normal Normal 0.0-1.0 [facility] Comment on above: Performed By: #### U MICAO, [facility], UA #### [facility] [address] [place] [address] Senior Payroll Administrator: Zayra Chapman MD Urinalysis,Microon 08-17-202 3 ----- Normal [facility] Comment on above: Performed By: #### U STUART CG, UA #### [facility] [address] [place], [place] [phone] Senior Payroll Administrator: Zayra Chapman MD Bacteria 4+ Abnormal NONE [facility] Comment on above: Performed By: #### U STUART CG, UA #### [facility] [address] [place] [address] Senior Payroll Administrator: Zayra Chapman MD Epithelial cells LM Ql (Urine sed) 2 TO 5 Normal [facility] Comment on above: Performed By: #### [facility] #### [facility] [address] [place] [address] Senior Payroll Administrator: Zayra Chapman MD Urine RBC's 2 TO 5 Normal 0-2 [facility] Comment on above: Performed By: #### [facility] #### [facility] [address] [place] [address] Senior Payroll Administrator: Zayra Chapman MD Urine WBC's 50 TO 100 Normal 0 [facility] Comment on above: Performed By: #### U STUART[facility] #### [facility] [address] [place] [address] Senior Payroll Administrator: Zayra Chapman MD Yeast OCCASIONAL Abnormal NONE [facility] Comment on above: Performed By: #### U STUART, CG, UA #### [facility] [address] [place] [address] Senior Payroll Administrator: Zayra Chapman MD Auto Diffon 12-06-2022 Basophils/100 WBC (Bld) 0.8 % Normal 0.0-2.0 [facility] Comment on above: Order Comment: Order Added by Discern Expert. Performed By: #### 2 934528, 1385464, 4235572, [id number] #### [facility] [address] [place] [address] Basophils/Leukocytes Auto (Bld) [Pure # fraction] 0.1 E9/L Normal 0.0-0.2 [facility] Comment on above: Order Comment: Order Added by Discern Expert. Performed By: #### 2 017920, 3157568, 8494186, [id number] #### [facility] [address] [place] [address] Eosinophils/100 WBC (Bld) 0.3 % Normal 0.0-8.0 [facility] Comment on above: Order Comment: Order Added by Discern Expert. Performed By: #### 2 750197, 0200361, 0148422, [id number] #### [facility] [address] [place] [address] Eosinophils/Leukocytes Auto (Bld) [Pure # fraction] 0.0 E9/L Normal 0.0-0.5 [facility] Comment on above: Order Comment: Order Added by Discern Expert. Performed By: #### 2 207812, 8360481, 3942018, [id number] #### [facility] [address] [place] [address] Lymphocytes/100 WBC (Bld) 12.5 % Low 14.0-50.0 [facility] Comment on above: Order Comment: Order Added by Discern Expert. Performed By: #### 2 499444, 5386090, 8631010, 11929357 #### [facility] [address] [place] [address] Lymphocytes/Leukocytes Auto (Bld) [Pure # fraction] 1.3 E9/L Normal 1.0-4.0 [facility] Comment on above: Order Comment: Order Added by Discern Expert. Performed By: #### 2 693244, 3627267, 7594447, [id number] #### [facility] [address] [place] [address] Monocytes/100 WBC (Bld) 4.5 % Normal 4.0-14.0 [facility] Comment on above: Order Comment: Order Added by Discern Expert. Performed By: #### 2 833586, 6755989, 9852915, [id number] #### [facility] [address] [place] [address] Monocytes/Leukocytes Auto (Bld) [Pure # fraction] 0.5 E9/L Normal 0.2-1.0 [facility] Comment on above: Order Comment: Order Added by Discern Expert. Performed By: #### 2 740500, 9137309, 2798251, [id number] #### [facility] [address] [place] [address] Neutrophils/100 WBC (Bld) 81.9 % High 36.0-75.0 [facility] Comment on above: Order Comment: Order Added by Discern Expert. Performed By: #### 2 431151, 4957601, 0674871, [id number] #### [facility] [address] [place] [address] Neutrophils/Leukocytes Auto (Bld) [Pure # fraction] 8.8 E9/L High 2.0-7.5 [facility] Comment on above: Order Comment: Order Added by Discern Expert. Performed By: #### 2 270787, 9309391, 9784573, [id number] #### [facility] [address] [place] [address] CBC w/ Auto Diffon 3 Erythrocyte distribution width (RBC) [Ratio] 13.9 % Normal 10.9-14.2 [facility] Comment on above: Performed By: #### 2 949147, 0573053, 4214289, 71274624 #### [facility] [address] [place] [address] Hematocrit (Bld) [Volume fraction] 42.7 % Normal 34.0-46.0 [facility] Comment on above: Performed By: #### 2 449832, 6424756, 3436650, 39658932 #### [facility] [address] [place] [address] Hemoglobin (Bld) [Mass/Vol] 14.2 g/dL Normal 12.0-16.0 [facility] Comment on above: Performed By: #### 2 176036, 8124026, 8333570, 59518638 #### [facility] [address] [place] [address] MCH (RBC) [Entitic mass] 26.8 pg Low 27.0-34.0 [facility] Comment on above: Performed By: #### 2 037917, 3999510, 7722205, 51356456 #### [facility] [address] [place] [address] MCHC (RBC) [Mass/Vol] 33.2 g/dL Normal 31.4-36.0 [facility] Comment on above: Performed By: #### 2 867014, 8653298, 6395302, 40479864 #### [facility] [address] [place] [address] MCV (RBC) [Entitic vol] 80.8 fL Normal 80.0-100.0 [facility] Comment on above: Performed By: #### 2 011414, 9672984, 4129521, 70738709 #### [facility] [address] [place] [address] Platelet mean volume (Bld) [Entitic vol] 9.8 fL Normal 6.4-10.8 [facility] Comment on above: Performed By: #### 2 113743, 1713680, 5303717, 48738598 #### [facility] [address] [place] [address] Platelets (Bld) [#/Vol] 252.0 E9/L Normal 150.0-500.0 [facility] Comment on above: Performed By: #### 2 897125, 9819741, 6672390, 56505355 #### [facility] [address] [place] [address] RBC (Bld) [#/Vol] 5.3 E12/L Normal 4.3-5.9 [facility] Comment on above: Performed By: #### 2 289583, 5164570, 1925481, 83921393 #### [facility] [address] [place] [address] WBC corrected for nucl RBC Auto (Bld) [#/Vol] 10.7 E9/L Normal 4.0-11.0 [facility] Comment on above: Performed By: #### 2 422132, 1524150, 8895710, 38082457 #### [facility] [address] [place] [address] CHEMISTRYOrdered By: SYSTEM SYSTEM on 12-06-2022 Albumin [...] 12-06-2022 Albumin [Mass/Vol] 4.2 g/dL Normal 3.3-5.0 [facility] Comment on above: Performed By: #### 2 474033, 9587523, 7649723, 36042723 #### [facility] [address] [place] [address] Albumin/Globulin (S) [Mass conc ratio] 1.2 Normal 1.1-2.2 [facility] Comment on above: Performed By: #### 2 281393, 7506569, 0141855, 40033308 #### [facility] [address] [place] [address] ALP [Catalytic activity/Vol] 117 Int._Unit/L High 21-98 [facility] Comment on above: Performed By: #### 2 237917, 4397585, 3993127, 43431575 #### [facility] [address] [place] [address] ALT No additional P-5'-P [Catalytic activity/Vol] 78 Int._Unit/L High 6-46 [facility] Comment on above: Performed By: #### 2 753578, 3967579, 9115873, 41405018 #### [facility] [address] [place] [address] AST [Catalytic activity/Vol] 68 Int._Unit/L High 5-43 [facility] Comment on above: Performed By: #### 2 432551, 3506436, 9232440, 91974934 #### [facility] [address] [place] [address] Bilirubin [Mass/Vol] 0.7 mg/dL Normal 0.0-1.1 [facility] Comment on above: Performed By: #### 2 911834, 7830991, 2197011, 53033883 #### [facility] [address] [place] [address] Creatinine [Mass/Vol] 0.8 mg/dL Normal 0.5-1.3 [facility] Comment on above: Performed By: #### 2 098237, 6063269, 6946703, 37778652 #### [facility] [address] [place] [address] Globulin (S) [Mass/Vol] 3.6 g/dL Normal 1.4-4.0 [facility] Comment on above: Performed By: #### 2 398865, 0956215, 9765754, 75529551 #### [facility] [address] [place] [address] Protein [Mass/Vol] 7.8 g/dL Normal 6.0-7.8 [facility] Comment on above: Performed By: #### 2 221296, 1136903, 4363712, 28154619 #### [facility] [address] [place] [address] Urea nitrogen [Mass/Vol] 12 mg/dL Normal 5-21 [facility] Comment on above: Performed By: #### 2 475475, 8461051, 8833665, 53062182 #### [facility] [address] [place] [address] Urea nitrogen/Creatinine [Mass ratio] 15 No Units Normal 10-20 [facility] Comment on above: Performed By: #### 2 124502, 9112075, 5468926, 33455842 #### [facility] [address] [place] [address] Anion gap [Moles/Vol] 15 mmol/L Normal 6-16 [facility] Comment on above: Performed By: #### 2 851318, 9065611, 3150737, 05980376 #### [facility] [address] [place] [address] Calcium [Mass/Vol] 9.6 mg/dL Normal 8.9-11.1 [facility] Comment on above: Performed By: #### 2 727029, 5875560, 3043896, 11586948 #### [facility] [address] [place] [address] Chloride [Moles/Vol] 104 mmol/L Normal 101-111 [facility] Comment on above: Performed By: #### 2 302898, 2423370, 7894326, 22408379 #### [facility] [address] [place] [address] CO2 [Moles/Vol] 22 mmol/L Normal 21-31 [facility] Comment on above: Performed By: #### 2 637073, 0512523, 0492925, 08962476 #### [facility] [address] [place] [address] Glucose [Mass/Vol] 244 mg/dL High 55-199 [facility] Comment on above: Result Comment: If t his glucose result represents a fasting glucose, interpretation should refer to the following reference range: 55-99 mg/dL Performed By: #### 2 [id number], [id number], [id number], [id number] #### [facility] [address] [place] [address] Potassium [Moles/Vol] 4.3 mmol/L Normal 3.5-5.3 [facility] Comment on above: Performed By: #### 2 [id number], [id number], [id number], [id number] #### [facility] [address] [place] [address] Sodium [Moles/Vol] 137 mmol/L Normal 135-145 [facility] Comment on above: Performed By: #### 2 [id number], [id number], [id number], [id number] #### [facility] [address] [place] [address] Consent for Treatmenton 08-0 Consent for Treatment [id number] [facility] [id number] .00CD:127 Normal [facility] Discharge Instructionson Discharge Instructions [id number]# 1.00CD:127 Normal [facility] ED Clinical Summaryon 2022 ED Clinical Summary [place] [id number] ED Clinical Summary Person Information [facility]: [facility] Age[facility] 27 Years : 1995 Sex: Female Language: Peruvian PCP: GAYE BARROS Marital Status: Single Visit [...] 12/06/2022 16:43:40 12/06/2022 16:43:40 12/06/2022 16:43:40 ADDRESS: [facility] Monika [facility] [id number] [facility] DOC NOTES: MEDICAL INFORMATION: Prescriptions Given: Medications to Continue with No Changes Other Medications venlafaxine (Effexor XR 150 mg Cap-ER) PATIENT EDUCATION INFORMATION: Instructions: Suicidal Feelings: How to Help Yourself Follow up: With: Address: When: [facility] In 3 days 12/09/2022 Comments: Follow safety plan. Return to the emergency department with any worsening symptoms. With: Address: When: GAYE JOSUE [address] [place] [address] [facility] (1) In 3 days 12/09/2022 [...] in 1 month. 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 Return to the emergency department with any worsening symptoms. GAYE JOSUE In 3 days 12/09/2022 EDT [address] [place] [address]- Business (1) Additional Instructions: Call the office [...] Known [employer] (more content not included)... Normal [facility] Comment on above: Result Comment: Elec tronically [...] (911 in the [place] ? Call the [facility] and human services helpline (211 in the [place] ? Call or text a suicide hotline to speak with a trained counselor. The following suicide hotlines are available in the [place]: ? 7-360-265-TALK ( or 198 in the [place] ? 6-846-IHSWTOQ ( ). ? Text 791930. This is the Crisis Text Line in the [place] ? . This is a hotline for Luxembourgish speakers. ? . This is a hotline for TTY users. ? 8-933-5-U-YASHIRA ( ). This is a hotline for [...] anyone or being with other people. ? Adbw-mi-gnlx conversation is best to help them understand [...] and a mental health checkup. ? Take enjp-bwr-lydkiig and prescription medicines only as told by [...] will hel (more content not included)... Normal [facility] ED Patient Summaryon 023 ED Patient Summary [place] [id number] Patient Discharge Instructions Person Information Name: RIRI DEMPSEY Age: 27 Years Arrival Date: 12/06/2022 13:19:47 Discharge Diagnosis: Situational stress Primary Care Physician: GAYE BARROS Provider Information Primary Provider: Graham Choe DO Advanced Hand Brush Filler:None The exam and treatment you received in the Emergency Department were for an urgent problem and are not intended as complete care. It is important that you follow up with a doctor, nurse practitioner, or physician?s assistant project manager for ongoing care. If your symptoms become worse or you do not improve as expected and you are unable to reach your usual health care provider, you should return to the Emergency Department. We are available 24 hours a day. RIRI DEMPSEY has been given the following list of patient education materials, prescriptions and follow-up instructions: Follow-up Instructions: With: Address: When: [facility] In 3 days 12/09/2022 Comments: Follow safety plan. Return to the emergency department with any worsening symptoms. With: Address: When: GAYE JOSUE [address] [id number] [facility] () In 3 days 12/09/2022 [...] opioids can be used to help relieve rfbbxsht-dc-sskost pain and are often prescribed following a [...] and katja (more content not included)... Normal [facility] Ethanolon 12-06-2022 Ethanol [Mass/Vol] mg/dL Normal <=7 [facility] Comment on above: Performed By: #### 2 [id number] ####[facility] [address] [place] [address] HEMATOLOGYOrdered By: SYSTEM SYSTEM on 12-06-2022 Basophils/100 [...] with NPD at time of arrival Normal [facility] SEROLOGYOrdered By: Antonio Stevens on 12-06-2022 HCG.beta subunit (U) [Moles/Vol] Negative Normal [facility] [place] [facility] Man Sero U BetaHcg Qualon 12-06-2022 HCG.beta subunit (U) [Moles/Vol] Negative Normal [facility] Comment on above: Performed By: #### 2 [id number] #### [facility] [address] [place] [address] U Drug Screenon 12-06-2022 Benzodiazepines Ql (U) Positive Abnormal Negative [facility] Comment on above: Result Comment: Crit ical Result verified by repeat analysis\No confirmation requested by Physican\Unconfirmed by alternate method\Critical Result UD_BENZ:POS Called to [facility] ER by JOEL STEVENS And Read Back For Confirmation at: 12/06/2022 14:42:33 Negative Cutoff: <200 ng/mL Performed By: #### 2 [id number] ####[facility] [address] [place] [address] Tetrahydrocannabinol Screen method >50 ng/mL Ql (U) Positive Abnormal Negative [facility] Comment on above: Result Comment: Crit ical Result verified by repeat analysis\No confirmation requested by Physican\Unconfirmed by alternate method\Critical Result UD_THC:POS Called to [facility] ER by JEOL STEVENS And Read Back For Confirmation at: 12/06/2022 14:42:33 Negative Cutoff: <50 ng/mL Performed By: #### 2 [id number] ####[id number] [place] [address] Amphetamines Screen method >1000 ng/mL Ql (U) Negative Normal Negative [facility] Comment on above: Result Comment: Nega tive Cutoff: <1000 ng/mL Performed By: #### 2 [id number] ####[address] [address] Barbiturates Screen Ql (U) Negative Normal Negative [facility] Comment on above: Result Comment: Nega tive Cutoff: <200 ng/mL Performed By: #### 2 [id number] ####[address] [address] Cocaine Ql (U) Negative Normal Negative [facility] Comment on above: Result Comment: Nega tive Cutoff: <300 ng/mL Performed By: #### 2 [id number] ####[address] [place] [address] Opiates Screen Ql (U) Negative Normal Negative [facility] Comment on above: Result Comment: Nega tive Cutoff: <300 ng/mL Performed By: #### 2 [id number] ####[address] [place] [address] Phencyclidine Screen method >25 ng/mL Ql (U) Negative Normal Negative [facility] Comment on above: Result Comment: Nega tive Cutoff: <25 ng/mL These drug screen results are to be used for medical (i.e., treatment) purposes only. Unconfirmed drug screening results must not be used for non-medical purposes (e.g., employment testing, legal testing). Performed By: #### 2 [id number] ####[facility] [address] [place] [address] eGFRon 12-06-2022 GFR/1.73 sq M.predicted among non-blacks MDRD (S/P/Bld) [Vol rate/Area] 105 mL/min/1.73 m2 Normal >=59 [facility] Comment on above: Order Comment: Order added by Discern Expert. Result Comment: Advocacy Director dayanna kidney disease could be indicated at eGFR's of less than 60 mL/min/1.73m2. Kidney failure is indicated at less than 15 mL/min/1.73m2. Performed By: #### 2 [id number], [id number], [id number], [id number] ####[facility] [address] [place] [address] Basic Metabolic Panelon 06-05 Anion gap [Moles/Vol] 11 mmol/L 9 - 17 mmol/L [employer] Calcium [Mass/Vol] 9.5 mg/dL 8.6 - 10. 4 mg/dL [employer] Chloride [Moles/Vol] 103 mmol/L 98 - 10 7 mmol/L [employer] CO2 [Moles/Vol] 27 mmol/L 20 - 31 mmol/L [employer] Creatinine [Mass/Vol] 0.57 mg/dL 0.50 - 0.90 mg/dL [facility] Chalkable GFR/1.73 sq M.predicted MDRD (S/P/Bld) [Vol rate/Area] - PINF [employer] Comment on above: These results are not [...] 154 mg/dL High 70 - 99 mg/dL [employer] Interpretation and review of laboratory results Abnormal [employer] Potassium [Moles/Vol] 4.2 mmol/L 3.7 - 5.3 mmol/L [employer] Sodium [Moles/Vol] 141 mmol/L 135 - 144 mmol/L [facility] Urea nitrogen [Mass/Vol] 12 mg/dL 6 - 20 mg/dL [facility] Urea nitrogen/Creatinine (Bld) [Mass ratio] 21 High 9 - 20 [facility] CBC with Auto Differentialon 06-16-2022 Absolute Eos # 0.10 [facility] Absolute Lymph # 1.90 [facility] Absolute Ocean # 0.40 [facility] Basophils (Bld) [#/Vol] 0.00 10*3/uL [facility] Basophils/100 WBC (Bld) 1 % 0 - 2 % [facility] Differential Type YES [facility] Eosinophils/100 WBC (Bld) 1 % 0 - 5 % [facility] Hematocrit (Bld) [Volume fraction] 40.3 % 36 - 46 % [facility] Hemoglobin (Bld) [Mass/Vol] 13.0 g/dL 12.0 - 16.0 g/dL [facility] Lymphocytes/100 WBC (Bld) 23 % 15 - 40 % [facility] MCH (RBC) [Entitic mass] 27.2 pg 26 - 34 pg [facility] MCHC (RBC) [Mass/Vol] 32.4 g/dL 31 - 3 7 g/dL [facility] MCV (RBC) [Entitic vol] 84.1 fL 80 - 100 fL [facility] Monocytes/100 WBC (Bld) 5 % 4 - 8 % [facility] Platelet distribution width (Bld) [Ratio] 13.9 % 12.1 - 15.2 % [facility] Platelets (Bld) [#/Vol] 225 10*3/uL [facility] RBC (Bld) [#/Vol] 4.79 10*6/uL 4.0 - 5.2 m/uL [facility] Segmented neutrophils/100 WBC (Bld) 70 % 47 - 75 % [facility] Segs Absolute 5.70 [facility] WBC (Bld) [#/Vol] 8.2 10*3/uL [facility] CT HEAD WO CONTRASTon 2022 No acute intracranial abnormality. FOLLOW-UP: Follow-up as clinically indicated. [facility] CON[facility] EXAM: CT HEAD WO CONTRAST 06/16/2022 2:34 AM EST [facility] CLINICAL STATEMENT: Has a code stroke [...] HEAD WO CONTRAST 06/16/2022 2:34 AM EST [facility] CLINICAL STATEMENT: Has a code stroke [...] abnormality. FOLLOW-UP: Follow-up as clinically indicated. [facility] Work Phone: Radiology Study observation (narrative) [facility]O [facility] [employer] Work Phone: CT HEAD WO CONTRASTOrdered B y: Trang Mcgregor on 06-16-2022 [facility] [employer] Work Phone: HCG Qualitative, Serumon hCG Qual Negative NEGATIVE [facility] Comment on above: Specimens with hCG l evels near the threshold of the test (25 mIU/mL) may give a negative or indeterminate result. In such cases, another test should be performed with a new specimen in 48-72 hours. If early is suspected clinically in this setting, correlation with quantitative serum b-hCG level is suggested. [employer] has confirmed the use of plasma for this test. This has not been cleared or approved by the U.S. Food and Drug Administration. The FDA has determined that such clearance is not necessary. [facility] Urinalysison 06-16-2022 Bilirubin Urine Negative NEGATIVE [facility] [employer] Color, UA Yellow Yellow [facility] Glucose Auto test strip (U) [Mass/Vol] Negative NEGATIVE [facility] Interpretation and review of laboratory results Abnormal [facility] Ketones (U) [Mass/Vol] Negative NEGATIVE [facility] Leukocyte esterase Auto test strip Ql (U) Negative NEGATIVE [facility] Nitrite Auto test strip Ql (U) Negative NEGATIVE [facility] Protein (U) [Mass/Vol] 7.0 mg/dL 5.0 - 8.0 [facility] Protein (U) [Mass/Vol] TRACE Abnormal NEGATIVE [facility] Specific [place], UA 1.005 1.005 - 1.030 [facility] Turbidity UA Clear Clear [facility] Urinalysis Comments [facility] Urine Hgb Negative NEGATIVE [facility] Urobilinogen, Urine Normal Normal [facility] XR LUMBAR SPINE (MIN 4 VIEWS )on [...] IMPRESSION: No degenerative change, discitis or fracture. [facility] Work Phone: Radiology Study observation (narrative) [facility]ULIANO [employer] Phone: XR LUMBAR SPINE (MIN 4 VIEWS )Ordered By: Quinn Roberto on 03-13-2022 [facility] [employer] Phone: CBC AUTO DIFFon 10-04-2021 BASO # 0.0 103/ul Normal 0.0-0.1 [facility] Comment on above: Performed By: #### H H #### [place] [facility] [address] [address] [address] Ramya Ramey Basophils/100 WBC (Bld) 0.2 % Normal 0.2-2.0 [facility] Comment on above: Performed By: #### H H #### [place] [facility] [address] [address] [address] Ramya Ramey EO # 0.1 103/ul Normal 0.0-0.7 [facility] Comment on above: Performed By: #### H H #### [place] [facility] [address] [address] [address] Ramya Ramey Eosinophils/100 WBC (Bld) 0.7 % Critically low 0.9-7.0 [facility] Comment on above: Performed By: #### H H #### [place] [facility] [address] [address] [address] Ramya Ramey Erythrocyte distribution width (RBC) [Ratio] 13.4 % Normal 11.0-15.0 [facility] Comment on above: Performed By: #### H H #### [place] [facility] [address] [address] [address] Ramya Ramey Hematocrit (Bld) [Volume fraction] 29.4 % Critically low 36.0-48.0 [facility] Comment on above: Performed By: #### H H #### [place] [facility] [address] [address] [address] Ramya Ramey Hemoglobin (Bld) [Mass/Vol] 9.5 g/dL Critically low 12.0-16.0 [facility] Comment on above: Performed By: #### H H #### [place] [facility] [address] [address] [address] Ramya Ramey IG # 0.06 10e3/ul Critically high 0.00-0.03 [facility] Comment on above: Performed By: #### H H #### [place] [facility] [address] [address] [address] Ramya Ramey IG % 0.5 % Normal 0.0-0.5 [facility] Comment on above: Performed By: #### H H #### [place] [facility] [address] [address] [address] Ramya Ramey LYMPH # 1.3 103/ul Normal 1.2-3.8 [facility] Comment on above: Performed By: #### H H #### [place] [facility] [address] [place] [address] Dr. Ramya Ramey Lymphocytes/100 WBC (Bld) 11.5 % Critically low 20.5-60.0 [facility] Comment on above: Performed By: #### H H #### [place] [facility] [address] [place] [address] Dr. Ramya Ramey MANUAL DIFF REQ NO Normal [facility] Comment on above: Performed By: #### H H #### [place] [facility] [address] [place] [address] Dr. Ramya Ramey MCH (RBC) [Entitic mass] 28.4 pg Normal 26.7-34.0 [facility] Comment on above: Performed By: #### H H #### [place] [facility] [address] [place] [address] Dr. Ramya Ramey MCHC (RBC) [Mass/Vol] 32.3 g/dL Normal 29.9-35.2 [facility] Comment on above: Performed By: #### H H #### [place] [facility] [address] [place] [address] Dr. Ramya Ramey MCV (RBC) [Entitic vol] 88.0 fL Normal 81.0-99.0 [facility] Comment on above: Performed By: #### H H #### [place] [facility] [address] [address] [address] Ramya Ramey MONO # 0.7 103/ul Normal 0.3-0.8 [facility] Comment on above: Performed By: #### H H #### [place] [facility] [address] [place] [address] Dr. Ramya Ramey Monocytes/100 WBC (Bld) 5.9 % Normal 1.7-12.0 [facility] Comment on above: Performed By: #### H H #### [place] [facility] [address] [place] [address] Dr. Ramya Ramey NEUT # 9.4 103/ul Critically high 1.4-6.5 [facility] Comment on above: Performed By: #### H H #### [place] [facility] [address] [place] [address] Dr. Ramya Ramey Neutrophils/100 WBC (Bld) 81.2 % Critically high 43.0-75.0 [facility] Comment on above: Performed By: #### H H #### [place] [facility] [address] [place] [address] Dr. Ramya Ramey Platelet mean volume (Bld) [Entitic vol] 11.9 fL Normal 9.5-13.5 [facility] Comment on above: Performed By: #### H H #### [place] [facility] [address] [place] [address] Dr. Ramya Ramey PLT 162 103/ul Normal 150-450 [facility] [place] [facility] Comment on above: Performed By: #### H H #### [facility] [address] [place] [address] Dr. Ramya Ramey RBC 3.34 106/ul Critically low 4.20-5.40 [facility] Comment on above: Performed By: #### H H #### [place] [facility] [address] [place] [address] Dr. Ramya Ramey WBC 11.5 103/ul Critically high 4.0-11.0 [facility] Comment on above: Performed By: #### H H #### [place] [facility] [address] [place] [address] Dr. Ramya Ramey CBC AUTO DIFFon 10-03-2021 BASO # 0.0 103/ul Normal 0.0-0.1 [facility] Comment on above: Performed By: #### H H #### [place] [facility] [address] [address] [address] Ramya Ramey Basophils/100 WBC (Bld) 0.2 % Normal 0.2-2.0 [facility] Comment on above: Performed By: #### H H #### [place] [facility] [address] [address] [address] Ramya Ramey EO # 0.1 103/ul Normal 0.0-0.7 [facility] Comment on above: Performed By: #### H H #### [place] [facility] [address] [place] [address] Dr. Ramya Ramey Eosinophils/100 WBC (Bld) 0.9 % Normal 0.9-7.0 [facility] Comment on above: Performed By: #### H H #### [place] [facility] [address] [place] [address] Dr. Ramya Ramey Erythrocyte distribution width (RBC) [Ratio] 13.3 % Normal 11.0-15.0 [facility] Comment on above: Performed By: #### H H #### [place] [facility] [address] [place] [address] Dr. Ramya Ramey Hematocrit (Bld) [Volume fraction] 34.8 % Critically low 36.0-48.0 [facility] Comment on above: Performed By: #### H H #### [place] [facility] [address] [place] [address] Dr. Ramya Ramey Hemoglobin (Bld) [Mass/Vol] 11.2 g/dL Critically low 12.0-16.0 [facility] Comment on above: Performed By: #### H H #### [place] [facility] [address] [place] [address] Dr. Ramya Ramey IG # 0.07 10e3/ul Critically high 0.00-0.03 [facility] Comment on above: Performed By: #### H H #### [place] [facility] [address] [place] [address] Dr. Ramya Ramey IG % 0.6 % Critically high 0.0-0.5 [facility] Comment on above: Performed By: #### H H #### [place] [facility] [address] [place] [address] Dr. Ramya Ramey LYMPH # 1.5 103/ul Normal 1.2-3.8 [facility] Comment on above: Performed By: #### H H #### [place] [facility] [address] [place] [address] Dr. Ramya Ramey Lymphocytes/100 WBC (Bld) 13.4 % Critically low 20.5-60.0 [facility] Comment on above: Performed By: #### H H #### [place] [facility] [address] [place] [address] Dr. Ramya Ramey MANUAL DIFF REQ NO Normal [facility] Comment on above: Performed By: #### H H #### [place] [facility] [address] [place] [address] Dr. Ramya Ramey MCH (RBC) [Entitic mass] 28.3 pg Normal 26.7-34.0 [facility] Comment on above: Performed By: #### H H #### [place] [facility] [address] [place] [address] Dr. Ramya Ramey MCHC (RBC) [Mass/Vol] 32.2 g/dL Normal 29.9-35.2 [facility] Comment on above: Performed By: #### H H #### [place] [facility] [address] [place] [address] Dr. Ramya Ramey MCV (RBC) [Entitic vol] 87.9 fL Normal 81.0-99.0 [facility] Comment on above: Performed By: #### H H #### [place] [facility] [address] [place] [address] Dr. Ramya Ramey MONO # 0.5 103/ul Normal 0.3-0.8 [facility] Comment on above: Performed By: #### H H #### [place] [facility] [address] [place] [address] Dr. Ramya Ramey Monocytes/100 WBC (Bld) 4.8 % Normal 1.7-12.0 [facility] Comment on above: Performed By: #### H H #### [place] [facility] [address] [place] [address] Dr. Ramya Ramey NEUT # 8.9 103/ul Critically high 1.4-6.5 [facility] Comment on above: Performed By: #### H H #### [place] [facility] [address] [place] [address] Dr. Ramya Ramey Neutrophils/100 WBC (Bld) 80.1 % Critically high 43.0-75.0 [facility] Comment on above: Performed By: #### H H #### [place] [facility] [address] [place] [address] Dr. Ramya Ramey Platelet mean volume (Bld) [Entitic vol] 11.8 fL Normal 9.5-13.5 [facility] Comment on above: Performed By: #### H H #### [place] [facility] [address] [place] [address] Dr. Ramya Ramey PLT 194 103/ul Normal 150-450 [facility] [place] [facility] Comment on above: Performed By: #### H H #### [facility] [address] [place] [address] Dr. Ramya Ramey RBC 3.96 106/ul Critically low 4.20-5.40 [facility] Comment on above: Performed By: #### H H #### [facility] [address] [place] [address] Dr. Ramya Ramey WBC 11.1 103/ul Critically high 4.0-11.0 [facility] Comment on above: Performed By: #### H H #### [place] [facility] [address] [place] [address] Dr. Ramya Ramey [facility]on SARS-CoV-2 (COVID-19) RNA JAKE+probe Ql (Unsp spec) Not detected Normal NOT DETECTED [facility] [place] [facility] Comment on above: Result Comment: When [...] for this test is supported by the Post Anesthesia Care Unit Nurse of Health and Human Service's declaration [...] used). Performed By: #### H H #### [place] [facility] [address] [place] [address] Dr. Ramya Ramey DRUG SCREEN RAPID (URINE)on 10-03-2021 AMP Negative Normal NEGATIVE [facility] Comment on above: Performed By: #### H H #### [place] [facility] [address] [place] [address] Dr. Ramya Ramey BAR Negative Normal NEGATIVE [facility] Comment on above: Performed By: #### H H #### [place] [facility] [address] [place] [address] Dr. Ramya Ramey BUP Negative Normal NEGATIVE [facility] Comment on above: Performed By: #### H H #### [place] [facility] [address] [place] [address] Dr. Ramya Ramey BZO Negative Normal NEGATIVE [facility] Comment on above: Performed By: #### H H #### [facility] [address] [place] [address] Dr. Ramya Ramey ANIBAL Negative Normal NEGATIVE [facility] Comment on above: Performed By: #### H H #### [facility] [address] [place] [address] Dr. Ramya Ramey CUT-OFFS SEE BELOW Normal [facility] Comment on above: Result Comment: AMP [...] ng/mL Performed By: #### H H #### [facility] [address] [place] [address] Dr. Ramya Ramey DRUG CUT HEADER DRUG CLASS TEST SYSTEM CUT-OFF CONCENTRATIONS ARE FOLLOWS: Normal [facility] Comment on above: Performed By: #### H H #### [facility] [address] [place] [address] Dr. Ramya Ramey mAMP Negative Normal NEGATIVE [facility] Comment on above: Performed By: #### H H #### [facility] [address] [place] [address] Dr. Ramya Ramey MTD Negative Normal NEGATIVE [facility] Comment on above: Performed By: #### H H #### [facility] [address] [place] [address] Dr. Ramya Ramey OPI Negative Normal NEGATIVE [facility] Comment on above: Performed By: #### H H #### [facility] [address] [place] [address] Dr. Ramya Ramey OXY Negative Normal NEGATIVE [facility] Comment on above: Performed By: #### H H #### [facility] [address] [place] [address] Dr. Ramya Ramey PCP Negative Normal NEGATIVE [facility] Comment on above: Performed By: #### H H #### [facility] [address] [place] [address] Dr. Ramya Ramey PPX Negative Normal NEGATIVE [facility] Comment on above: Performed By: #### H H #### [facility] [address] [place] [address] Dr. Ramya Ramey TCA Negative Normal NEGATIVE [facility] Comment on above: Performed By: #### H H #### [facility] [address] [address] [address] Ramya Ramey THC Negative Normal NEGATIVE [facility] Comment on above: Performed By: #### H H #### [facility] [address] [place] [address] Dr. Ramya Ramey POINT OF CARE GLUCOSEon 0 Glucose [Mass/Vol] 126 mg/dL Critically high 74-106 [facility] Comment on above: Performed By: #### P OCGLUC #### [facility] [address] [place] [address] Dr. Ramya Ramey TYPE AND SCREENon 10-03-2021 TYPE AND SCREEN Negative Normal [facility] Comment on above: Performed By: #### P OCGLUC #### [facility] [address] [place] [address] Dr. Ramya Ramey CULTURE URINEon 10-01-2021 CULTURE URINE Culture Observations : LIGHT GROWTH OF MIXED GENITAL LEANA. NO POTENTIAL PATHOGENS SEEN. Normal [facility] Comment on above: Performed By: #### P OCGLUC #### [facility] [address] [place] [address] Dr. Ramya Ramey POINT OF CARE GLUCOSEon 09-04 Glucose [Mass/Vol] 134 mg/dL Critically high 74-106 [facility] Comment on above: Performed By: #### P OCGLUC #### [facility] [address] [place] [address] Dr. Ramya Ramey UA (CLEAN/CATCH) DE ICER KIT ASSEMBLER/MICRO I F IND.on 10-01-2021 Bilirubin Ql (U) Negative Normal NEGATIVE [facility] Comment on above: Performed By: #### U ACSIND UMICRO #### [facility] [address] [place] [address] Dr. Ramya Ramey Clarity (U) CLEAR Normal CLEAR [facility] Comment on above: Performed By: #### U ACSIND, UMICRO #### [facility] [address] [place] [address] Dr. Ramya Ramey Color (U) YELLOW Normal YELLOW [facility] Comment on above: Performed By: #### U ACSIND, UMICRO #### [facility] [address] [address] [address] Ramya Ramey Glucose Ql (U) Negative Normal NEGATIVE [facility] Comment on above: Performed By: #### U ACSIND, UMICRO #### [facility] [address] [address] [address] Ramya Ramey Hemoglobin Ql (U) Negative Normal NEGATIVE [facility] Comment on above: Performed By: #### U ACSIND, UMICRO #### [facility] [address] [address] [address] Ramya Ramey Ketones Ql (U) Negative Normal NEGATIVE [facility] Comment on above: Performed By: #### U ACSIND, UMICRO #### [facility] [address] [address] [address] Ramya Ramey LEUKOCYTES LARGE Abnormal NEGATIVE [facility] Comment on above: Performed By: #### U ACSIND, UMICRO #### [facility] [address] [address] [address] Ramya Ramey Nitrite Ql (U) Negative Normal NEGATIVE [facility] Comment on above: Performed By: #### U ACSIND, UMICRO #### [facility] [address] [address] [address] Ramya Ramey pH (U) 6.5 [pH] Normal 5-9 [facility] Comment on above: Performed By: #### U ACSIND, UMICRO #### [facility] [address] [address] [address] Ramya Ramey SPEC GRAVITY 1.010 Normal 1.005-<=1.0 25 [facility] Comment on above: Performed By: #### U ACSIND, UMICRO #### [facility] [address] [address] [address] Ramya Ramey UA PROTEIN Negative Normal NEGATIVE/ TRACE [facility] Comment on above: Performed By: #### U ACSIND, UMICRO #### [facility] [address] [place] [address] Dr. Ramya Ramey UR MICRO IND INDICATED Normal [facility] Comment on above: Performed By: #### U ACSCLOVER, UMICRO #### [facility] [address] [place] [address] Dr. Ramya Ramey Urobilinogen Qn (U) 0.2 {Sariah'U}/dL Normal 0.2 - 1. 0 [facility] Comment on above: Performed By: #### U ACSCLOVER, UMICRO #### [facility] [address] [place] [address] Dr. Ramya Ramey URINE MICROSCOPIC ONLYon BACTERIA LARGE Abnormal NONE SEEN [facility] Comment on above: Performed By: #### U ACSCLOVER, UMICRO #### [facility] [address] [place] [address] Dr. Ramya Ramey Bacteria identified Cx Nom (U) INDICATED Normal [facility] Comment on above: Performed By: #### U ACSCLOVER UMICRO #### [facility] [address] [place] [address] Dr. Ramya Ramey CAST NONE SEEN Normal NONE SEEN [facility] Comment on above: Performed By: #### U ACSCLOVER, UMICRO #### [facility] [address] [place] [address] Dr. Ramya Ramey Crystals LM Nom (Urine sed) NONE SEEN Normal NONE SEEN [facility] Comment on above: Performed By: #### U ACSCLOVER, UMICRO #### [facility] [address] [place] [address] Dr. Ramya Ramey Epithelial cells LM Ql (Urine sed) MANY Abnormal NONE SEEN /RARE [facility] Comment on above: Performed By: #### U ACSCLOVER UMICRO #### [facility] [address] [place] [address] Dr. Ramya Ramey MUCOUS TRACE Abnormal NONE SEEN [facility] Comment on above: Performed By: #### U ACSCLOVER UMICRO #### [facility] [address] [place] [address] Dr. Ramya Ramey RBC 5-10 Abnormal 0-2 [facility] Comment on above: Performed By: #### U ACSIND, UMICRO #### [facility] [address] [address] [address] Ramya Ramey WBC 75-100 Abnormal NONE SEEN [facility] Comment on above: Performed By: #### U ACSIND, UMICRO #### [facility] [address] [address] [address] Ramya Ramey GROUP B STREP CULTUREon [...] F Tetracycline >=16 R F Normal [facility] Comment on above: Performed By: #### G BSCX #### [facility] [address] [place] [address] Dr. Ramya Ramey US PREG BIOPHY W [...] MARY CRAFT Date: 2021-09-26 10:40 Normal [facility] US PREG GROWTHon 09-26-2021 US PREG [...] by: MARY CRAFT Date: 2021-09-26 10:42 Normal [facility] US PREG BIOPHY W NON [...] by: ZAYRA ORTIZ Date: 2021-09-20 07:12 Normal [facility] US PREG BIOPHY W NON [...] by: MARY CRAFT Date: 2021-09-12 16:24 Normal [facility] US PREG BIOPHY W NON [...] by: MARY CRAFT Date: 2021-09-05 16:47 Normal [facility] US PREG BIOPHY W NON [...] by: ZAYRA ORTIZ Date: 2021-08-31 07:14 Normal [facility] US PREG BIOPHY W NON [...] by: ZAYRA ORTIZ Date: 2021-08-30 07:11 Normal [facility] US PREG GROWTHon 08-30-2021 US [...] ZAYRA ORTIZ Date: 2021-08-30 07:10 Normal [facility] CULTURE URINEon 08-24-2021 CULTURE URINE Culture Observations : MODERATE GROWTH OF MIXED GENITAL LEANA. NO POTENTIAL PATHOGENS SEEN. Normal [facility] Comment on above: Performed By: #### P OCGLUC #### [facility] [address] [place] [address] Dr. Ramya Ramey POINT OF CARE GLUCOSEon 08-04 Glucose [Mass/Vol] 132 mg/dL Critically high 74-106 [facility] Comment on above: Performed By: #### H H #### [facility] [address] [address] [address] Ramya Ramey UA (CLEAN/CATCH) DE ICER KIT ASSEMBLER/MICRO I F IND.on 08-24-2021 Bilirubin Ql (U) Negative Normal NEGATIVE [facility] Comment on above: Performed By: #### U ACSIND, UMICRO #### [facility] [address] [address] [address] Ramya Ramey Clarity (U) CLEAR Normal CLEAR [facility] Comment on above: Performed By: #### U ACSIND, UMICRO #### [facility] [address] [place] [address] Dr. Ramya Ramey Color (U) YELLOW Normal YELLOW [facility] Comment on above: Performed By: #### U ACSIND, UMICRO #### [facility] [address] [address] [address] Ramya Ramey Glucose Ql (U) 250 mg/dl Abnormal NEGATIVE [facility] Comment on above: Performed By: #### U ACSIND, UMICRO #### [facility] [address] [address] [address] Ramya Ramey Hemoglobin Ql (U) TRACE-INTACT Abnormal NEGATIVE [facility] Comment on above: Performed By: #### U ACSIND, UMICRO #### [facility] [address] [place] [address] Dr. Ramya Ramey Ketones Ql (U) Negative Normal NEGATIVE [facility] Comment on above: Performed By: #### U ACSCLOVER, UMICRO #### [facility] [address] [place] [address] Dr. Ramya Ramey LEUKOCYTES MODERATE Abnormal NEGATIVE [facility] Comment on above: Performed By: #### U ACSCLOVER, ICRO #### [facility] [address] [place] [address] Dr. Ramya Ramey Nitrite Ql (U) Negative Normal NEGATIVE [facility] Comment on above: Performed By: #### U ACSCLOVER UMICRO #### [facility] [address] [place] [address] Dr. Ramya Ramey pH (U) 6.0 [pH] Normal 5-9 [facility] Comment on above: Performed By: #### U ACSCLOVER, UMICRO #### [facility] [address] [place] [address] Dr. Ramya Ramey SPEC GRAVITY 1.020 Normal 1.005-<=1.0 25 [facility] Comment on above: Performed By: #### U ACSCLOVER, UMICRO #### [facility] [address] [place] [address] Dr. Ramya Ramey UA PROTEIN TRACE Normal NEGATIVE/ TRACE [facility] Comment on above: Performed By: #### U ACSIND, UMICRO #### [facility] [address] [place] [address] Dr. Ramya Ramey UR MICRO IND INDICATED Normal [facility] Comment on above: Performed By: #### U ACSIND, UMICRO #### [facility] [address] [place] [address] Dr. Ramya Ramey Urobilinogen Qn (U) 0.2 {Sariah'U}/dL Normal 0.2 - 1. 0 [facility] Comment on above: Performed By: #### U ACSIND, UMICRO #### [facility] [address] [place] [address] Dr. Ramya Ramey URINE MICROSCOPIC ONLYon BACTERIA MODERATE Abnormal NONE SEEN [facility] Comment on above: Performed By: #### U ACSIND, UMICRO #### [facility] [address] [place] [address] Dr. Ramya Ramey Bacteria identified Cx Nom (U) INDICATED Normal [facility] Comment on above: Performed By: #### U ACSIND, UMICRO #### [facility] [address] [place] [address] Dr. Ramya Ramey CAST NONE SEEN Normal NONE SEEN [facility] Comment on above: Performed By: #### U ACSIND, UMICRO #### [facility] [address] [place] [address] Dr. Ramya Ramey Crystals LM Nom (Urine sed) NONE SEEN Normal NONE SEEN [facility] Comment on above: Performed By: #### U ACSIND, UMICRO #### [facility] [address] [place] [address] Dr. Ramya Ramey Epithelial cells LM Ql (Urine sed) MANY Abnormal NONE SEEN /RARE [facility] Comment on above: Performed By: #### U ACSIND, UMICRO #### [facility] [address] [place] [address] Dr. Ramya Ramey MUCOUS NONE SEEN Normal NONE SEEN [facility] Comment on above: Performed By: #### [facility] I[facility] #### [facility] [address] [address] [address] Ramya Ramey RBC 2-5 Abnormal 0-2 [facility] Comment on above: Performed By: #### U ACSCLOVER UMICRO #### [facility] [address] [address] [address] Ramya Ramey WBC 10-20 Abnormal NONE SEEN [facility] Comment on above: Performed By: #### U ACSCLOVER ICRO #### [facility] [address] [address] [address] Ramya Ramey HEPATITIS C ANTIBODYon 07-18 Hep C Virus Ab <0.1 Normal 0.0-0.9 [facility] Comment on above: Result Comment: Nega tive: < 0.8 Indeterminate: 0.8 - 0.9 Positive: > 0.9 . The CDC recommends that a positive HCV antibody result be followed up with a HCV Nucleic Acid Amplification test (695524). Performed By: #### H CV #### [facility] [address] [place] [address] Dr. Ramya Ramey ABO AND RH TYPEon 07-17-2021 ABO and Rh group Nom (Bld) ABO Rh Typing B Rh Positive Normal [facility] Comment on above: Performed By: #### P OCGLUC #### [facility] [address] [place] [address] Dr. Ramya Ramey GLUCOSE - 1HRon 07-17-2021 Glucose [Mass/Vol] 238 mg/dL Critically high 74-106 [facility] Comment on above: Performed By: #### G LU1HR #### [facility] [address] [address] [address] Ramya Ramey GLYCOHEMOGLOBIN A1Con 2021 ADA RECOMMENDATION ADA THERAPEUTIC TARGET 6.0 - 7.0 ACTION SUGGESTED > 7.0 Normal [facility] Comment on above: Performed By: #### H H #### [facility] [address] [place] [address] Dr. Ramya Ramey Glucose [Mass/Vol] 120 mg/dL Normal [facility] Comment on above: Performed By: #### H H #### [facility] [address] [place] [address] Dr. Ramya Ramey HbA1c (Bld) [Mass fraction] 5.8 % Normal <=6.0 [facility] Comment on above: Performed By: #### H H #### [facility] [address] [place] [address] Dr. Ramya Ramey HEMOGRAM AND PLATELon 2021 Hematocrit (Bld) [Volume fraction] 33.3 % Critically low 36.0-48.0 [facility] Comment on above: Performed By: #### H H #### [facility] [address] [place] [address] Dr. Ramya Ramey Hemoglobin (Bld) [Mass/Vol] 10.8 g/dL Critically low 12.0-16.0 [facility] Comment on above: Performed By: #### H H #### [facility] [address] [place] [address] Dr. Ramya Ramey MCH (RBC) [Entitic mass] 28.9 pg Normal 26.7-34.0 [facility] Comment on above: Performed By: #### H H #### [facility] [address] [place] [address] Dr. Ramya Ramey MCHC (RBC) [Mass/Vol] 32.4 g/dL Normal 29.9-35.2 [facility] Comment on above: Performed By: #### H H #### [facility] [address] [place] [address] Dr. Ramya Ramey MCV (RBC) [Entitic vol] 89.0 fL Normal 81.0-99.0 [facility] Comment on above: Performed By: #### H H #### [facility] [address] [place] [address] Dr. Ramya Ramey PLT 217 103/ul Normal 150-450 [facility] Comment on above: Performed By: #### H H #### [facility] [address] [place] [address] Dr. Ramya Ramey RBC 3.74 106/ul Critically low 4.20-5.40 [facility] Comment on above: Performed By: #### H H #### [facility] [address] [place] [address] Dr. Ramya Ramey WBC 11.5 103/ul Critically high 4.0-11.0 [facility] Comment on above: Performed By: #### H H #### [facility] [address] [place] [address] Dr. Ramya Ramey CHLAMYDIA/GONOCOCCUS JAKE ( AB/URINE/PAPon 06-21-2021 Chlamydia trachomatis, JAKE Negative Normal Negative [facility] Comment on above: Performed By: #### C T/NGNA #### [facility] [address] [place] [address] Dr. Ramya Ramey Neisseria gonorrhoeae, JAKE Negative Normal Negative [facility] Comment on above: Performed By: #### C T/NGNA #### [facility] [address] [place] [address] Dr. Ramya Ramey VAGINITIS/VAGINOSIS DNA PROB Wayne 06-20-2021 Teetee species Negative Normal Negative [facility] Comment on above: Performed By: #### H H #### [facility] [address] [place] [address] Dr. Ramya Ramey Gardnerella vaginalis Positive Abnormal Negative [facility] Comment on above: Performed By: #### H H #### [facility] [address] [place] [address] Dr. Ramya Ramey Trichomonas vaginalis Negative Normal Negative [facility] Comment on above: Performed By: #### H H #### [facility] [address] [place] [address] Dr. Ramya Ramey AFP, Maternalon 06-03-2021 Determined by Other Normal [facility] Comment on above: Performed By: #### C MIS #### [facility] [address] [place] [id number] Senior Payroll Administrator: Antoine Wilson MD #### AAFPM #### [address] [address] Senior Payroll Administrator: Antoine Wilson MD [address] [phone] Senior Payroll Administrator: Nick Mills MD Due Date SEE NOTE Normal [facility] Comment on above: Result Comment: Resu lts for Estimated Due Date: 10 21 21 Performed By: #### C MIS #### [address] [address] Senior Payroll Administrator: Antoine Wilson MD #### AAFPM #### [address] [address] Senior Payroll Administrator: Antoine Wilson MD [address] [phone] Senior Payroll Administrator: Nick Mills MD Family History No Normal [facility] Comment on above: Performed By: #### C MIS #### [address] [address] Senior Payroll Administrator: Antoine Wilson MD #### AAFPM #### [address] [address] Senior Payroll Administrator: Antoine Wilson MD [address] [address] Senior Payroll Administrator: Nick Mills MD Gestat Age (exact) 19 wks, 4 days Normal [facility] Comment on above: Performed By: #### C MIS #### [address] [address] Senior Payroll Administrator: Antoine Wilson MD #### AAFPM #### [address] [address] Senior Payroll Administrator: Antoine Wilson MD [address] [address] Senior Payroll Administrator: Nick Mills MD Ins Req Matern Diab Unknown Normal [facility] Comment on above: Performed By: #### C MIS #### [address] [address] Senior Payroll Administrator: Antoine Wilson MD #### AAFPM #### [address] [address] Senior Payroll Administrator: Antoine Wilson MD [address] [phone] Senior Payroll Administrator: Nick Mills MD Interpretation Screen Neg Normal [facility] Comment on above: Result Comment: (NOT E) INTERPRETATION: SCREEN NEGATIVE for open spina bifida Neural Tube Defects (NTD) Negative Pre-Test Post-Test Cutoff Neural Tube Defects Risks 1:1030 1:7440 1:250 Comments: The risk of an open neural tube defect is less than the screening cut-off. This test was developed and its performance characteristics determined by [facility]. It has not been cleared or approved by the [place] Food and Drug Administration. This test was performed in a CLIA certified laboratory and is intended for clinical purposes. Performed By: #### C MIS #### [address] [address] Senior Payroll Administrator: Antoine Wilson MD #### AAFPM #### [address] [address] Senior Payroll Administrator: Antoine Wilson MD [address] [address] Senior Payroll Administrator: Nick Mills MD [age] [facility] Comment on above: Performed By: #### C MIS #### [address] [address] Senior Payroll Administrator: Antoine Wilson MD #### AAFPM #### [address] [address] Senior Payroll Administrator: Antoine Wilson MD [address] [address] Senior Payroll Administrator: Nick Mills MD Maternal Race Nonblack [facility] Comment on above: Performed By: #### C MIS #### [address] [address] Senior Payroll Administrator: Antoine Wilson MD #### AAFPM #### [address] [address] Senior Payroll Administrator: Antoine Wilson MD [facility] [address] [place], [place] [phone] Senior Payroll Administrator: Nick Mills MD Maternal Weight 204.0 lbs. Normal [facility] Comment on above: Performed By: #### C MIS #### [address] [address] Senior Payroll Administrator: Antoine Wilson MD #### AAFPM #### [address] [address] Senior Payroll Administrator: Antoine Wilson MD [facility] [address] [place], [place] [phone] Senior Payroll Administrator: Nick Mills MD MoM for AFP 1.18 [facility] Comment on above: Performed By: #### C MIS #### [address] [address] Senior Payroll Administrator: Antoine Wilson MD #### AAFPM #### [address] [address] Senior Payroll Administrator: Antoine Wilson MD [facility] [address] [place], [place] [id number] Senior Payroll Administrator: Nick Mills MD Number of Fetuses Tate Normal [facility] Comment on above: Performed By: #### C MIS #### [address] [address] Senior Payroll Administrator: Antoine Wilson MD #### AAFPM #### [address] [address] Senior Payroll Administrator: Antoine Wilson MD [address] [phone] Senior Payroll Administrator: Nick Mills MD Patient's AFP 55 ng/mL Normal [facility] Comment on above: Performed By: #### C MIS #### [address] [address] Senior Payroll Administrator: Antoine Wilson MD #### AAFPM #### [address] [address] Senior Payroll Administrator: Antoine Wilson MD [address] [phone] Senior Payroll Administrator: Nick Mills MD Smoking Yes Normal [facility] Comment on above: Performed By: #### C MIS #### [address] [address] Senior Payroll Administrator: Antoine Wilson MD #### AAFPM #### [address] [address] Senior Payroll Administrator: Antoine Wilson MD [address] [phone] Senior Payroll Administrator: Nick Mills MD Specimen See Note [facility] Comment on above: Result Comment: (NOT E) Initial sample Performed by [facility], [address] [place] [id number] [email or web address], Noreen Zafar MD, Lab. Director Performed By: #### C MIS #### [address] [address] Senior Payroll Administrator: Antoine Wilson MD #### AAFPM #### [address] [address] Senior Payroll Administrator: Antoine Wilson MD [facility] [address] [place] [address] Senior Payroll Administrator: Nick Mills MD AFP, Maternalon 06-01-2021 Current Smoking YES [facility] Comment on above: Performed By: #### C MIS #### [facility] [address] [place] [id number] Senior Payroll Administrator: Antoine Wilson MD #### AAFPM #### [facility] [address] [place] [phone] Senior Payroll Administrator: Antoine Wilson MD [facility] [address] [place], [place] [phone] Senior Payroll Administrator: Nick Mills MD Dating LMP [facility] Comment on above: Performed By: #### C MIS #### [address] [address] Senior Payroll Administrator: Antoine Wilson MD #### AAFPM #### [address] [address] Senior Payroll Administrator: Antoine Wilson MD [facility] [address] [place], [place] [id number] Senior Payroll Administrator: Nick Mills MD Diabetic INFORMATION NOT PROVIDED [facility] Comment on above: Performed By: #### C MIS #### [address] [address] Senior Payroll Administrator: Antoine Wilson MD #### AAFPM #### [address] [address] Senior Payroll Administrator: Antoine Wilson MD [facility] [address] [place] [address] Senior Payroll Administrator: Nick Mills MD Donor Egg NO [facility] Comment on above: Performed By: #### C MIS #### [facility] [address] [place] [phone] Senior Payroll Administrator: Antoine Wilson MD #### AAFPM #### [facility] [address] [place] [id number] Senior Payroll Administrator: Antoine Wilson MD [facility] [address] [place] [address] Senior Payroll Administrator: Nick Mills MD Estimated Due Date 10 21 2021 [facility] Comment on above: Performed By: #### C MIS #### [facility] [address] [place] [phone] Senior Payroll Administrator: Antoine Wilson MD #### AAFPM #### [address] [address] Senior Payroll Administrator: Antoine Wilson MD [address] [address] Senior Payroll Administrator: Nick Mills MD Family History NO [facility] Comment on above: Performed By: #### C MIS #### [address] [address] Senior Payroll Administrator: Antoine Wilson MD #### AAFPM #### [address] [address] Senior Payroll Administrator: Antoine Wilson MD [address] [address] Senior Payroll Administrator: Nick Mills MD [facility] Comment on above: Performed By: #### C MIS #### [address] [address] Senior Payroll Administrator: Antoine Wilson MD #### AAFPM #### [address] [address] Senior Payroll Administrator: Antoine Wilson MD [facility] [address] [place] [phone] Senior Payroll Administrator: Nick Mills MD LMP date 01 14 2021 [facility] Comment on above: Performed By: #### C MIS #### [address] [address] Senior Payroll Administrator: Antoine Wilson MD #### AAFPM #### [address] [address] Senior Payroll Administrator: Antoine Wilson MD [facility] [address] [place] [address] Senior Payroll Administrator: Nick Mills MD Maternal date 08 14 1997 [facility] Comment on above: Performed By: #### C MIS #### [address] [address] Senior Payroll Administrator: Antoine Wilson MD #### AAFPM #### [address] [address] Senior Payroll Administrator: Antoine Wilson MD [facility] [address] [place] [address] Senior Payroll Administrator: Nick Mills MD Maternal Weight 204 Normal [facility] Comment on above: Performed By: #### C MIS #### [address] [address] Senior Payroll Administrator: Antoine Wilson MD #### AAFPM #### [address] [address] Senior Payroll Administrator: Antoine Wilson MD [facility] [address] [place] [address] Senior Payroll Administrator: Nick Mills MD Monochorionic Twins TATE [facility] Comment on above: Performed By: #### C MIS #### [address] [address] Senior Payroll Administrator: Antoine Wilson MD #### AAFPM #### [address] [address] Senior Payroll Administrator: Antoine Wilson MD [address] [phone] Senior Payroll Administrator: Nick Mills MD Patient Weight Units LBS Normal [facility] Comment on above: Performed By: #### C MIS #### [address] [address] Senior Payroll Administrator: Antoine Wilson MD #### AAFPM #### [address] [address] Senior Payroll Administrator: Antoine Wilson MD [address] [phone] Senior Payroll Administrator: Nick Mills MD Race (Maternal) WHITE Normal [facility] Comment on above: Performed By: #### C MIS #### [address] [address] Senior Payroll Administrator: Antoine Wilson MD #### AAFPM #### [address] [address] Senior Payroll Administrator: Antoine Wilson MD [address] [phone] Senior Payroll Administrator: Nick Mills MD Repeat Specimen INFORMATION NOT PROVIDED [facility] Comment on above: Performed By: #### C MIS #### [address] [address] Senior Payroll Administrator: Antoine Wilson MD #### AAFPM #### [address] [address] Senior Payroll Administrator: Antoine Wilson MD [address] [address] Senior Payroll Administrator: Nick Mills MD Valproic/Carbamazep INFORMATION NOT PROVIDED [facility] Comment on above: Performed By: #### C MIS #### [address] [address] Senior Payroll Administrator: Antoine Wilson MD #### AAFPM #### [address] [address] Senior Payroll Administrator: Antoine Wilson MD [address] [address] Senior Payroll Administrator: MD [facility]2021 Send Out Report [facility] [id number] [facility] Comment on above: Performed By: #### C MIS #### [address] [address] Senior Payroll Administrator: Antoine Wilson MD #### AAFPM #### [address] [address] Senior Payroll Administrator: Antoine Wilson MD [address] [address] Senior Payroll Administrator: MD [facility] 05-31-2021 Test Name [facility] Comment on above: Performed By: #### C MIS #### [address] [address] Senior Payroll Administrator: Antoine Wilson MD #### AAFPM #### [address] [address] Senior Payroll Administrator: Antoine Wilson MD [address] [address] Senior Payroll Administrator: Nick Mills MD COVID-19, Rapidon 05-22-2021 Interpretation and review of laboratory results Abnormal [facility] SARS-CoV-2 (COVID-19) RNA JAKE+probe Ql (Unsp spec) Detected Abnormal Not Detected [facility] Comment on above: Rapid NAAT: The specimen [...] this assay. Fact sheet for Healthcare Providers: https://www.fda.gov/media/805941/download Fact sheet for Patients: https://www.fda.gov/media/720896/download Methodology: Isothermal Nucleic Acid Amplification Results reported to the appropriate Health Department Specimen Description .NASOPHARYNGEAL SWAB O Entregador Basic Metabolic Panelon 12-0 Anion gap [Moles/Vol] 14 mmol/L 9 - 17 mmol/L [facility] Calcium [Mass/Vol] 9.3 mg/dL 8.6 - 10. 4 mg/dL [facility] Chloride [Moles/Vol] 100 mmol/L 98 - 10 7 mmol/L [facility] CO2 [Moles/Vol] 19 mmol/L Low 20 - 31 mmol/L [facility] Creatinine [Mass/Vol] 0.48 mg/dL Low 0.50 - 0.90 mg/dL [facility] GFR >60 >60 mL/min [employer] GFR Non- >60 >60 mL/min [facility] GFR/1.73 sq M.predicted MDRD (S/P/Bld) [Vol rate/Area] [facility] Comment on above: Average GFR for 20-2 9 years old: 116 mL/min/1.73sq m Chronic Kidney Disease: <60 mL/min/1.73sq m Kidney failure: <15 mL/min/1.73sq m eGFR calculated using average adult body mass. Additional eGFR calculator available at: http://www.BigBarn.StrataCloud/multiple_crcl_2012.htm GFR/1.73 sq M.predicted MDRD (S/P/Bld) [Vol rate/Area] NOT REPORTED [facility] Glucose [Mass/Vol] 209 mg/dL High 70 - 99 mg/dL [facility] Interpretation and review of laboratory results Abnormal [facility] Potassium [Moles/Vol] 3.9 mmol/L 3.7 - 5.3 mmol/L [facility] Sodium [Moles/Vol] 133 mmol/L Low 135 - 144 mmol/L [facility] Urea nitrogen (BldV) [Mass/Vol] 7 mg/dL 6 - 20 mg/dL [facility] Urea nitrogen/Creatinine (Bld) [Mass ratio] 15 [facility] OB 1ST TRIMESTER TRANSBDO BECKY ONLY WITH [...] Doppler analysis. 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 Uterus measures 13.4 x 7.8 x 8.7 [...] ID: [id number] Dictated by: BLAINE CHIU on Foster Apr 01, 2021 8:19:34 PM EST Transcribed by: BLAINE CHIU on Foster Apr 01, 2021 8:19:34 PM EST Finalized by: BLAINE CHIU on FriApr 01, 2021 8:19:34 PM EST Normal [facility] Comment on above: Order Comment: Injur y/Trauma or Illness?:Illness/Other How long have you had these symptoms (acute/chronic)?:Acute Reason for exam?:vaginal bleeding, rt pelvic pain History of cancer?:na Surgeries, chemotherapy, or radiation?:na Type of Exam?:Initial Additional signs and symptoms?:n Microscopic UrinalysisOrdere d By: Braydon May on 02-10-2021 - [facility] [employer] Work Phone: Amorphous, UA NOT REPORTED None [facility] Work Phone: Bacteria, UA 1+ Abnormal None [facility] Work Phone: Casts UA NOT REPORTED /LPF [facility] [employer] Work Phone: Crystals, UA NOT REPORTED None /HPF [facility] Work Phone: Epithelial Cells UA 5 TO 10 /HPF [facility] Work Phone: Interpretation and review of laboratory results Abnormal [facility] Work Phone: Mucus, UA NOT REPORTED None [facility] Work Phone: Other Observations UA NOT REPORTED NOT REQ. M [facility] Work Phone: RBC, UA 0 TO 2 [facility] Work Phone: Renal Epithelial, UA NOT REPORTED 0 /HPF [facility] Work Phone: Trichomonas, UA NOT REPORTED None [facility] e[facility] Work Phone: WBC, UA 2 TO 5 0 /HPF [facility] Work Phone: Yeast, UA NOT REPORTED None [facility] Work Phone: [facility] [employer] Work Phone: UrinalysisOrdered By: Braydon May on 02-10-2021 Bilirubin Urine Negative NEGATIVE [facility] Work Phone: Color, UA Yellow Yellow [facility] Work Phone: Glucose, Ur Negative NEGATIVE [facility] Work Phone: Interpretation and review of laboratory results Abnormal [facility] Work Phone: Ketones Ql (U) Negative NEGATIVE [employer] Work Phone: Leukocyte esterase Test strip Ql (U) 2+ Abnormal NEGATIVE [facility] Work Phone: Nitrite, Urine Negative NEGATIVE [facility] Work Phone: pH, UA 6.0 [facility] Work Phone: Protein, UA Negative NEGATIVE [facility] Work Phone: Specific [place], UA 1.020 [employer] Work Phone: Turbidity UA Clear Clear [facility] Work Phone: Urinalysis Comments [facility] Work Phone: Urine Hgb 1+ Abnormal NEGATIVE [facility] Phone: Urobilinogen, Urine Normal Normal [facility] Phone: [facility] Work Phone: hCG, quantitative, Ordered By: Braydon May on 02-10-2021 hCG Quant 160 High <5 IU/L [facility] Phone: Comment on above: Non-preg premeno <=5 Postmeno <=8 Male <=3 If HCG results do not concur with clinical observations, additional testing to confirm results is recommended. Elevated results not associated with may be found in patients with other diseases such as tumors of the germ cells (testis, ovaries, etc.), bladder, pancreas, stomach, lungs, and liver. Interpretation and review of laboratory results Abnormal [facility] Work Phone: [facility] Phone: CBC Auto DifferentialOrdered By: Bea Jacobs on 12-10-2020 Absolute Eos # 0.10 [employer] Work Phone: Absolute Immature Granulocyte NOT REPORTED [facility] Phone: Absolute Lymph # 1.80 [employer] Juanpablo alth Work Phone: Absolute Ocean # 0.70 Barcodingalexandra Geronimoa lth Work Phone: Basophils (Bld) [#/Vol] 0.10 10*3/uL [facility] Work Phone: Basophils/100 WBC (Bld) 1 % 0 - 2 % M [employer] Work Phone: Differential Type YES [employer] Christin e[facility] Work Phone: Eosinophils/100 WBC (Bld) 1 % 0 - 5 % [facility] Phone: Hematocrit (Bld) [Volume fraction] 42.8 % 36 - 46 % [facility] Work Phone: Hemoglobin.gastrointest inal spec 1 Ql (Stl) 14.6 g/dL 12.0 - 16.0 g/dL [facility] Phone: Immature Granulocytes NOT REPORTED 0 % M [employer] Phone: Interpretation and review of laboratory results Abnormal [facility] Phone: Lymphocytes/100 WBC (Bld) 16 % 15 - 40 % [facility] Phone: MCH (RBC) [Entitic mass] 30.0 pg 26 - 34 pg [facility] Phone: MCHC (RBC) [Mass/Vol] 34.2 g/dL 31 - 3 7 g/dL [facility] Phone: MCV (RBC) [Entitic vol] 87.8 fL 80 - 100 fL [facility] Phone: Monocytes/100 WBC (Bld) 6 % 4 - 8 % M [employer] Work Phone: NRBC Automated NOT REPORTED per 100 WBC [employer] Work Phone: Platelet distribution width (Bld) [Ratio] 13.1 % 12.1 - 15.2 % [facility] Phone: Platelet Estimate NOT REPORTED [facility] Phone: Platelet mean volume (Bld) [Entitic vol] NOT REPORTED 6.0 - 12.0 fL [facility] Work Phone: Platelets (Bld) [#/Vol] 230 10*3/uL [facility] Phone: RBC (Bld) [#/Vol] 4.87 10*6/uL 4.0 - 5.2 m/uL [facility] Phone: RBC (Bld) [#/Vol] NOT REPORTED [facility] Phone: Segmented neutrophils/100 WBC (Bld) 76 % High 47 - 75 % [facility] Work Phone: Segs Absolute 8.80 High [employer] [facility] Work Phone: WBC (Bld) [#/Vol] 11.5 10*3/uL High [facility] Work Phone: WBC (Bld) [#/Vol] NOT REPORTED [facility] Phone: [facility] Work Phone: Comprehensive Metabolic Pane l w/ Reflex to MGOrdered By: Bea Jacobs on 12-10-2020 Albumin [Mass/Vol] 4.3 g/dL 3.5 - 5.2 g/dL [facility] Phone: Albumin/Globulin Ratio NOT REPORTED [facility] Work Phone: ALP (Bld) [Catalytic activity/Vol] 105 U/L High 35 - 104 U/L [facility] Work Phone: ALT [Catalytic activity/Vol] 17 U/L 5 - 33 U/L [facility] Phone: Anion gap [Moles/Vol] 12 mmol/L 9 - 17 mmol/L [facility] Phone: AST [Catalytic activity/Vol] 17 U/L <32 [facility] Phone: Bilirubin [Mass/Vol] 0.50 mg/dL 0.30 - 1.20 mg/dL [facility] Phone: Calcium [Mass/Vol] 9.3 mg/dL 8.6 - 10. 4 mg/dL [facility] Phone: Chloride [Moles/Vol] 105 mmol/L 98 - 10 7 mmol/L [facility] Phone: CO2 [Moles/Vol] 22 mmol/L 20 - 31 mmol/L [facility] Phone: Creatinine [Mass/Vol] 0.6 mg/dL 0.50 - 0.90 mg/dL [facility] Phone: Free PSA/Total PSA [Mass fraction] 7.3 g/dL 6.4 - 8.3 g/dL [facility] Phone: GFR >60 >60 mL/min [employer] Phone: GFR Non- >60 >60 mL/min [facility] Phone: GFR/1.73 sq M.predicted MDRD (S/P/Bld) [Vol rate/Area] [facility] Phone: Comment on above: Average GFR for 20-2 9 years old: 116 mL/min/1.73sq m Chronic Kidney Disease: <60 mL/min/1.73sq m Kidney failure: <15 mL/min/1.73sq m eGFR calculated using average adult body mass. Additional eGFR calculator available at: http://www.BigBarn.StrataCloud/multiple_crcl_2012.htm GFR/1.73 sq M.predicted MDRD (S/P/Bld) [Vol rate/Area] NOT REPORTED [facility] Phone: Glucose [Mass/Vol] 102 mg/dL High 70 - 99 mg/dL [facility] Phone: Interpretation and review of laboratory results Abnormal [facility] Phone: Potassium [Moles/Vol] 3.9 mmol/L 3.7 - 5.3 mmol/L [facility] Phone: Sodium [Moles/Vol] 139 mmol/L 135 - 144 mmol/L [facility] Phone: Urea nitrogen (BldV) [Mass/Vol] 15 mg/dL 6 - 20 mg/dL [facility] Phone: Urea nitrogen/Creatinine (Bld) [Mass ratio] 25 High [facility] Phone: [facility] Phone: HCG Qualitative, SerumOrdere d By: Bea Jacobs on 12-10-2020 hCG Qual Negative NEGATIVE [facility] Phone: Comment on above: Specimens with hCG l evels near the threshold of the test (25 mIU/mL) may give a negative or indeterminate result. In such cases, another test should be performed with a new specimen in 48-72 hours. If early is suspected clinically in this setting, correlation with quantitative serum b-hCG level is suggested. [employer] has confirmed the use of plasma for this test. This has not been cleared or approved by the U.S. Food and Drug Administration. The FDA has determined that such clearance is not necessary. [facility] Phone: Acetaminophen Levelon 2020 Acetaminophen [Mass/Vol] <5 Low 10 - 30 ug/mL [facility] Phone: Interpretation and review of laboratory results Abnormal [facility] Phone: Basic Metabolic Panelon 03-3 Anion gap [Moles/Vol] 11 mmol/L 9 - 17 mmol/L [facility] Phone: Bun/Cre Ratio 27 High [employer] Work Phone: Calcium [Mass/Vol] 9.4 mg/dL 8.6 - 10. 4 mg/dL [facility] Phone: Chloride [Moles/Vol] 104 mmol/L 98 - 10 7 mmol/L [facility] Phone: CO2 [Moles/Vol] 26 mmol/L 20 - 31 mmol/L [facility] Phone: Creatinine [Mass/Vol] 0.71 mg/dL 0.50 - 0.90 mg/dL [facility] Phone: GFR >60 >60 mL/min [employer] Phone: GFR Non- >60 >60 mL/min [facility] Phone: GFR/1.73 sq M predicted among non-blacks MDRD (S/P/Bld) [Vol rate/Area] NOT REPORTED [facility] Phone: GFR/1.73 sq M predicted among non-blacks MDRD (S/P/Bld) [Vol rate/Area] [facility] Phone: Comment on above: Average GFR for 20-2 9 years old: 116 mL/min/1.73sq m Chronic Kidney Disease: <60 mL/min/1.73sq m Kidney failure: <15 mL/min/1.73sq m eGFR calculated using average adult body mass. Additional eGFR calculator available at: http://www.BigBarn.StrataCloud/multiple_crcl_2012.htm Glucose [Mass/Vol] 113 mg/dL High 70 - 99 mg/dL [facility] Phone: Potassium [Moles/Vol] 4.0 mmol/L 3.7 - 5.3 mmol/L [facility] Phone: Sodium [Moles/Vol] 141 mmol/L 135 - 144 mmol/L [facility] Phone: Urea nitrogen [Mass/Vol] 19 mg/dL 6 - 20 mg/dL [facility] Phone: CBC Auto Differentialon 07-05 0 Basophils (Bld) [#/Vol] 0.10 10*3/uL [facility] Phone: Basophils/100 WBC (Bld) 1 % 0 - 2 % M [facility] Phone: Differential Type YES [facility] Work Phone: Eosinophils (Bld) [#/Vol] 0.10 10*3/uL [facility] Phone: Eosinophils/100 WBC (Bld) 1 % 0 - 5 % [facility] Phone: Erythrocyte distribution width (RBC) [Ratio] 13.3 % 12.1 - 15.2 % [facility] Phone: Hematocrit (Bld) [Volume fraction] 40.7 % 36 - 46 % [facility] Phone: Hemoglobin (Bld) [Mass/Vol] 13.8 g/dL 12.0 - 16.0 g/dL [facility] Phone: Interpretation and review of laboratory results Abnormal [facility] Phone: Lymphocytes (Bld) [#/Vol] 3.10 10*3/uL [facility] Phone: Lymphocytes/100 WBC (Bld) 28 % 15 - 40 % [facility] Phone: MCH (RBC) [Entitic mass] 30.1 pg 26 - 34 pg [facility] Phone: MCHC (RBC) [Mass/Vol] 33.8 g/dL 31 - 3 7 g/dL [facility] Phone: MCV (RBC) [Entitic vol] 88.8 fL 80 - 100 fL [facility] Phone: Monocytes (Bld) [#/Vol] 0.50 10*3/uL [facility] Phone: Monocytes/100 WBC (Bld) 5 % 4 - 8 % M [facility] Phone: Platelet mean volume (Bld) [Entitic vol] NOT REPORTED 6.0 - 12.0 fL [facility] Phone: Platelets (Bld) [#/Vol] 203 10*3/uL [facility] Phone: Platelets (Bld) [#/Vol] NOT REPORTED [facility] Phone: RBC (Bld) [#/Vol] 4.59 10*6/uL 4.0 - 5.2 m/uL [facility] Phone: RBC morphology finding Nom (Bld) NOT REPORTED [facility] Phone: Segmented neutrophils/100 WBC (Bld) 65 % 47 - 75 % [facility] Work Phone: Segs Absolute 7.30 High Wag Moblie [facility] Work Phone: WBC (Bld) [#/Vol] 11.0 10*3/uL [facility] Phone: WBC (Bld) [#/Vol] NOT REPORTED per 100 WBC [employer] Work Phone: WBC Morphology NOT REPORTED [employer] [facility] Work Phone: COVID-19, Rapidon 08-01-2020 SARS-CoV-2, Rapid Not Detected Not Detected [facility] Phone: Comment on above: Rapid NAAT: The [...] management decisions. Fact sheet for Healthcare Providers: https://www.fda.gov/media/032915/download Fact sheet for Patients: https://www.fda.gov/media/524533/download Methodology: Isothermal Nucleic Acid Amplification Specimen Description .NASOPHARYNGEAL SWAB [facility] Phone: Ethanolon 08-01-2020 Ethanol [Mass/Vol] mg/dL <10 mg/dL [facility] Phone: Ethanol percent <0.010 % [employer] [facility] Work Phone: HCG Qualitative, Serumon hCG Qual Negative NEGATIVE [facility] Phone: Comment on above: Specimens with hCG l evels near the threshold of the test (25 mIU/mL) may give a negative or indeterminate result. In such cases, another test should be performed with a new specimen in 48-72 hours. If early is suspected clinically in this setting, correlation with quantitative serum b-hCG level is suggested. [employer] has confirmed the use of plasma for this test. This has not been cleared or approved by the U.S. Food and Drug Administration. The FDA has determined that such clearance is not necessary. Otheron 08-01-2020 Interpretation and review of laboratory results Abnormal [facility] Phone: Immature granulocytes (Bld) [#/Vol] NOT REPORTED [facility] Phone: Salicylateon 08-01-2020 Salicylate Lvl <1 Low 3 - 10 mg/dL [facility] Phone: TSH with Reflexon 08-01-2020 TSH Qn 3.16 m[IU]/L [facility] Work Phone: Urine Drug Screenon 08-02-19 21 Amphetamine Screen, Ur Negative NEGATIVE [facility] Work Phone: Comment on above: (Positive cutoff 500 ng/mL) Barbiturate Screen, Ur Negative NEGATIVE [facility] Work Phone: Comment on above: (Positive cutoff 200 ng/mL) Benzodiazepine Screen, Urine Negative NEGATIVE [facility] Work Phone: Comment on above: (Positive cutoff 150 ng/mL) Buprenorphine Urine NOT REPORTED NEGATIVE [facility] Work Phone: Cannabinoid Scrn, Ur Negative NEGATIVE [facility] Work Phone: Comment on above: (Positive cutoff 50 ng/mL) Cocaine Metabolite, Urine Negative NEGATIVE [facility] Work Phone: Comment on above: (Positive cutoff 150 ng/mL) MDMA, Urine NOT REPORTED NEGATIVE [facility] Work Phone: Methadone Screen, Urine Negative NEGATIVE [facility] Work Phone: Comment on above: (Positive cutoff 200 ng/mL) Methamphetamine, Urine Negative NEGATIVE [facility] Work Phone: Comment on above: (Positive cutoff 500 ng/mL) Opiates, Urine Negative NEGATIVE [facility] Work Phone: Comment on above: (Positive cutoff 100 ng/mL) Oxycodone Screen, Ur Negative NEGATIVE [facility] Work Phone: Comment on above: (Positive cutoff 100 ng/mL) Phencyclidine, Urine Negative NEGATIVE [facility] Work Phone: Comment on above: (Positive cutoff 25 ng/mL) Propoxyphene, Urine Negative NEGATIVE [facility] Work Phone: Comment on above: (Positive cutoff 300 ng/mL) Test Information NOT REPORTED [facility] Work Phone: Tricyclic Antidepressants, Urine Negative NEGATIVE [facility] Work Phone: Comment on above: (Positive cutoff 300 ng/mL) Drug screen results are to be used for medical purposes only. All positive results are unconfirmed. Testing for employment or legal uses should be sent to a reference laboratory for confirmation. CBC Auto Differentialon 01-03 Basophils (Bld) [#/Vol] 0.00 10*3/uL [place], [place] Basophils/100 WBC (Bld) 1 % 0 - 2 % M [place], [place] Differential Type YES [place], [place] Eosinophils (Bld) [#/Vol] 0.10 10*3/uL [place] Eosinophils/100 WBC (Bld) 2 % 0 - 5 % [place] Erythrocyte distribution width (RBC) [Ratio] 13.4 % 12.1 - 15.2 % [place] Hematocrit (Bld) [Volume fraction] 44.9 % 36 - 46 % [place] Hemoglobin (Bld) [Mass/Vol] 15.0 g/dL 12 - 16 g/dL [place] Lymphocytes (Bld) [#/Vol] 1.30 10*3/uL [place] Lymphocytes/100 WBC (Bld) 17 % 15 - 40 % [place] MCH (RBC) [Entitic mass] 29.7 pg 26 - 34 pg [place] MCHC (RBC) [Mass/Vol] 33.4 g/dL 31 - 3 7 g/dL [place] MCV (RBC) [Entitic vol] 88.9 fL 80 - 100 fL [place] Monocytes (Bld) [#/Vol] 0.40 10*3/uL [place] Monocytes/100 WBC (Bld) 5 % 4 - 8 % [place], [place] Platelet mean volume (Bld) [Entitic vol] NOT REPORTED 6 - 12 fL [place] Platelets (Bld) [#/Vol] NOT REPORTED [place] Platelets (Bld) [#/Vol] 231 10*3/uL [place] RBC (Bld) [#/Vol] 5.05 10*6/uL 4 - 5.2 m/uL [place] RBC morphology finding Nom (Bld) NOT REPORTED [place] Segmented neutrophils/100 WBC (Bld) 75 % 47 - 75 % [place] Segs Absolute 5.80 [place], [place] WBC (Bld) [#/Vol] 7.7 10*3/uL [place] WBC (Bld) [#/Vol] NOT REPORTED per 100 WBC [place], [place] WBC Morphology NOT REPORTED [place], [place] Comprehensive Metabolic Pane nick 01-18-2020 Albumin [Mass/Vol] 4.6 g/dL 3.5 - 5.2 g/dL [place] Albumin/Globulin [Mass ratio] NOT REPORTED [place] ALP [Catalytic activity/Vol] 101 U/L 35 - 104 U/L [place] ALT [Catalytic activity/Vol] 21 U/L 5 - 33 U/[place] Anion gap [Moles/Vol] 10 mmol/L 9 - 17 mmol/L [place] AST [Catalytic activity/Vol] 20 U/L <32 [place] Bilirubin Ql (U) 0.55 mg/dL 0.3 - 1.2 mg/dL [place] Bun/Cre Ratio 18 [place] Calcium [Mass/Vol] 9.2 mg/dL 8.6 - 10. 4 mg/dL [place] Chloride [Moles/Vol] 106 mmol/L 98 - 10 7 mmol/L [place] CO2 [Moles/Vol] 24 mmol/L 20 - 31 mmol/L [place] Creatinine [Mass/Vol] 0.74 mg/dL 0.5 - 0.9 mg/dL [place] GFR >60 >60 mL/min [place], [place] GFR Non- >60 >60 mL/min [place] GFR/1.73 sq M predicted among non-blacks MDRD (S/P/Bld) [Vol rate/Area] [place] Comment on above: Average GFR for 20-2 9 years old: 116 mL/min/1.73sq m Chronic Kidney Disease: <60 mL/min/1.73sq m Kidney failure: <15 mL/min/1.73sq m eGFR calculated using average adult body mass. Additional eGFR calculator available at: http://www.[employer]/multiple_crcl_2012.htm GFR/1.73 sq M predicted among non-blacks MDRD (S/P/Bld) [Vol rate/Area] NOT REPORTED [place] Glucose [Mass/Vol] 124 mg/dL High 70 - 99 mg/dL [place] Interpretation and review of laboratory results Abnormal [place] Potassium [Moles/Vol] 4.1 mmol/L 3.7 - 5.3 mmol/L [place] Protein [Mass/Vol] 8.5 g/dL High 6.4 - 8.3 g/dL [place] Sodium [Moles/Vol] 140 mmol/L 135 - 144 mmol/L [place] Urea nitrogen [Mass/Vol] 13 mg/dL 6 - 20 mg/dL [place] Otheron 01-18-2020 Immature granulocytes (Bld) [#/Vol] NOT REPORTED 0 % [place] TSH with Reflexon 01-18-2020 TSH Qn 1.30 m[IU]/L [place] Basic Metabolic Panel w/ Ref stephy to MGon 04-06-2019 Anion gap [Moles/Vol] 13 mmol/L 9 - 17 mmol/L [place] Bun/Cre Ratio 19 [place] Calcium [Mass/Vol] 9.7 mg/dL 8.6 - 10. 4 mg/dL [place] Chloride [Moles/Vol] 102 mmol/L 98 - 10 7 mmol/L [place] CO2 [Moles/Vol] 23 mmol/L 20 - 31 mmol/L [place] Creatinine [Mass/Vol] 0.58 mg/dL 0.5 - 0.9 mg/dL [place] GFR >60 >60 mL/min [place] GFR Non- >60 >60 mL/min [place] GFR/1.73 sq M predicted among non-blacks MDRD (S/P/Bld) [Vol rate/Area] NOT REPORTED [place] GFR/1.73 sq M predicted among non-blacks MDRD (S/P/Bld) [Vol rate/Area] [place] Comment on above: Average GFR for 20-2 9 years old: 116 mL/min/1.73sq m Chronic Kidney Disease: <60 mL/min/1.73sq m Kidney failure: <15 mL/min/1.73sq m eGFR calculated using average adult body mass. Additional eGFR calculator available at: http://www.[employer]/multiple_crcl_2012.htm Glucose [Mass/Vol] 115 mg/dL High 70 - 99 mg/dL [place] Interpretation and review of laboratory results Abnormal [place] Potassium [Moles/Vol] 3.9 mmol/L 3.7 - 5.3 mmol/L [place] Sodium [Moles/Vol] 138 mmol/L 135 - 144 mmol/L [place] Urea nitrogen [Mass/Vol] 11 mg/dL 6 - 20 mg/dL [place] CBC Auto Differentialon 12-0 Basophils (Bld) [#/Vol] 0.00 10*3/uL [place] Basophils/100 WBC (Bld) 0 % 0 - 2 % [place] Differential Type YES [place] Eosinophils (Bld) [#/Vol] 0.10 10*3/uL [place] Eosinophils/100 WBC (Bld) 2 % 0 - 5 % [place] Erythrocyte distribution width (RBC) [Ratio] 12.7 % 12.1 - 15.2 % [place] Hematocrit (Bld) [Volume fraction] 46.4 % High 36 - 46 % [place] Hemoglobin (Bld) [Mass/Vol] 15.5 g/dL 12 - 16 g/dL [place] Interpretation and review of laboratory results Abnormal [place] Lymphocytes (Bld) [#/Vol] 1.30 10*3/uL [place] Lymphocytes/100 WBC (Bld) 20 % 15 - 40 % [place] MCH (RBC) [Entitic mass] 29.7 pg 26 - 34 pg [place] MCHC (RBC) [Mass/Vol] 33.4 g/dL 31 - 3 7 g/dL [place] MCV (RBC) [Entitic vol] 89.0 fL 80 - 100 fL [place] Monocytes (Bld) [#/Vol] 0.50 10*3/uL [place] Monocytes/100 WBC (Bld) 8 % 4 - 8 % [place] Platelet mean volume (Bld) [Entitic vol] NOT REPORTED 6 - 12 fL [place] Platelets (Bld) [#/Vol] NOT REPORTED [place] Platelets (Bld) [#/Vol] 194 10*3/uL [place] RBC (Bld) [#/Vol] 5.22 10*6/uL High 4 - 5.2 m/uL [place] RBC morphology finding Nom (Bld) NOT REPORTED [place] Segmented neutrophils/100 WBC (Bld) 70 % 47 - 75 % [place] Segs Absolute 4.40 [place] WBC (Bld) [#/Vol] 6.4 10*3/uL [place] WBC (Bld) [#/Vol] NOT REPORTED per 100 WBC [place] WBC Morphology NOT REPORTED [place] D-Dimer, Quantitativeon 12-0 -2018 D-Dimer, Quant 0.21 [place], [place] Comment on above: Elevated levels of [...] HCG Qualitative, Serumon hCG Qual Negative NEGATIVE [facility] Comment on above: Specimens with hCG l evels near the threshold of the test (25 mIU/mL) may give a negative or indeterminate result. In such cases, another test should be performed with a new specimen in 48-72 hours. If early is suspected clinically in this setting, correlation with quantitative serum b-hCG level is suggested. [employer] has confirmed the use of plasma for this test. This has not been cleared or approved by the U.S. Food and Drug Administration. The FDA has determined that such clearance is not necessary. Otheron 04-06-2019 Immature granulocytes (Bld) [#/Vol] NOT REPORTED [facility] XR CHEST STANDARD (2 VW)on 1 06-07-2018 Negative chest. [facility] EXAM: XR CHEST (2 VW ) HISTORY: Reason for exam:->SOB COMPARISON: Chest 12/05/2018. TECHNIQUE: 2 views chest FINDINGS: Heart size normal. Lungs clear. Bony thorax and upper abdomen normal. [facility] Willian, Mhpn Incoming Radiant Results From [employer] - 04/06/2019 2:50 PM EST EXAM: XR CHEST (2 VW) HISTORY: Reason for exam:->SOB COMPARISON: Chest 12/05/2018. TECHNIQUE: 2 views chest FINDINGS: Heart size normal. Lungs clear. Bony thorax and upper abdomen normal. IMPRESSION: Negative chest. [facility] Metabolic Pane nick 11-12-2017 Alanine aminotransferase (ALT) 22 U/L Normal 14-65 [facility] Comment on above: This test result [...] ####Unless otherwise noted, all testing performed by [address] [phone]: [id number] Director: Diego Hamilton M.D. Albumin 3.7 g/dL Normal 3.2-5.2 [facility] Comment on above: Performed By: #### C MET ####Unless otherwise noted, all testing performed by [address] [phone]: [id number] Director: Diego Hamilton M.D. Alkaline phosphatase (ALP) 99 U/L Normal 40-140 [facility] Comment on above: Performed By: #### C MET ####Unless otherwise noted, all testing performed by [address] [phone]: [id number] Director: Diego Hamilton M.D. Aspartate aminotransferase (AST) 11 U/L Normal 0-45 [facility] Comment on above: This test result [...] ####Unless otherwise noted, all testing performed by [address] [id number]: [id number] Director: Diego Hamilton M.D. Bilirubin (total) 0.2 mg/dL Low 0.3-1.2 [facility] Comment on above: Performed By: #### C MET ####Unless otherwise noted, all testing performed by [facility] [address] [phone]: [id number] Director: Diego Hamilton M.D. Calcium 9.0 mg/dL Normal 8.4-10.2 [facility] Comment on above: Performed By: #### C MET ####Unless otherwise noted, all testing performed by [place] [phone]: [id number] Director: Diego Hamilton M.D. Chloride 109 mmol/L High 98-108 [facility] Comment on above: Performed By: #### C MET ####Unless otherwise noted, all testing performed by [address]CLIA: [id number] Director: Diego Hamilton M.D. CO2 28 mmol/L Normal 21-32 [facility] Comment on above: Performed By: #### C MET ####Unless otherwise noted, all testing performed by [place] [phone]: [id number] Director: Diego Hamilton M.D. Creatinine 0.94 mg/dL Normal 0.40-1.10 [facility] Comment on above: Performed By: #### C MET ####Unless otherwise noted, all testing performed by [place] [phone]: [id number] Director: Diego Haimlton M.D. eGFR (black) mL/min/{1.73_m2} Normal [facility] Comment on above: GFR Calc Result Comment: Afri can Green[place]ic GFR Calc Performed By: #### C MET ####Unless otherwise noted, all testing performed by [address] [phone]: [id number] Director: Diego Hamilton M.D. eGFR (non-black) mL/min/{1.73_m2} Normal [facility] Comment on above: Non- GFR Calc eGFR [...] ####Unless otherwise noted, all testing performed by [address] [phone]: [id number] Director: Diego Hamilton M.D. Glucose mass conc 102 mg/dL High 70-99 [facility] Comment on above: This test result isela [...] ####Unless otherwise noted, all testing performed by [address] [phone]: [id number] Director: Diego Hamilton M.D. Interpretation and review of laboratory results Abnormal Invalid Interpretation Code [facility] Potassium molar conc 4.0 mmol/L Normal 3.5-5.1 [facility] Comment on above: Performed By: #### C MET ####Unless otherwise noted, all testing performed by [address] [phone]: [id number] Director: Diego Hamilton M.D. Protein 7.0 g/dL Normal 6.0-8.0 [facility] Comment on above: Performed By: #### C MET ####Unless otherwise noted, all testing performed by [address] [phone]: [id number] Director: Diego Hamilton M.D. Sodium 143 mmol/L Normal 135-145 [facility] Comment on above: Performed By: #### C MET ####Unless otherwise noted, all testing performed by [address] [phone]: [id number] Director: Diego Hamilton M.D. Urea nitrogen 17 mg/dL Normal 8-25 [facility] Comment on above: Performed By: #### C MET ####Unless otherwise noted, all testing performed by [place] [phone]: [id number] Director: Diego Hamilton M.D. Preg test, Urine Qualon 11-02 Preg Test, Urine Qual Negative Invalid Interpretation Code Negative [facility] Comment on above: Rapid test procedura [...] ( test) Ql (U) Negative Normal Negative [facility] Comment on above: Result Comment: Rapi d [...] ####Unless otherwise noted, all testing performed by [address] [phone]: [id number] Director: Diego Hamilton M.D. Urinalysison 11-12-2017 Bilirubin, Urine Negative Normal NEG;NEGATIV E [facility] Comment on above: Performed By: #### P REGUR, UA ####Unless otherwise noted, all testing performed by [address] [phone]: [id number] Director: Diego Hamilton M.D. Blood, Urine Negative Normal NEG;NEGATIV E [facility] Comment on above: Performed By: #### P REGUR, UA ####Unless otherwise noted, all testing performed by [address] [phone]: [id number] Director: Diego Hamilton M.D. Character Clear Normal [facility] Comment on above: Performed By: #### P REGUR, UA ####Unless otherwise noted, all testing performed by [address] [phone]: [id number] Director: Diego Hamilton M.D. Interpretation and review of laboratory results Abnormal Invalid Interpretation Code [facility] Nitrite, Urine Negative Normal NEG;NEGATIV E [facility] Comment on above: Performed By: #### P REGUR, UA ####Unless otherwise noted, all testing performed by [address] [phone]: [id number] Director: Diego Hamilton M.D. Protein, Urine 30 mg/dL High < 30 [facility] Comment on above: Performed By: #### P REGUR, UA ####Unless otherwise noted, all testing performed by [address] [phone]: [id number] Director: Diego Hamilton M.D. RBCs, Urine < 1 Invalid Interpretation Code 0 - 5 /HPF [facility] Specific [place] 1.024 1 Invalid Interpretation Code 1.003 - 1.029 [facility] Squamous Epithelial 4 /HPF Invalid Interpretation Code 0 - 40 [facility] Urine, color Yellow Normal [facility] Comment on above: Performed By: #### P REGUR, UA ####Unless otherwise noted, all testing performed by [address] [phone]: [id number] Director: Diego Hamilton M.D. Urine, glucose presence Negative Normal NEG; NEGATIV E [facility] Comment on above: Performed By: #### P REGUR, UA ####Unless otherwise noted, all testing performed by [address] [phone]: [id number] Director: Diego Hamilton M.D. Urine, ketones presence Negative Invalid Interpretation Code NEG;NEGATIV E mg/dL [facility] Urine, leukocyte esterase presence Negative Invalid Interpretation Code Negative [facility] Urine, pH 5.0 [pH] Normal 4.5-8.0 [facility] Comment on above: Performed By: #### P REGUR, UA ####Unless otherwise noted, all testing performed by [address] [phone]: [id number] Director: Diego Hamilton M.D. Urobilinogen, Urine < 2.0 Normal <2 [facility] Comment on above: Performed By: #### P REGUR, UA ####Unless otherwise noted, all testing performed by [address] [phone]: [id number] Director: Diego Hamilton M.D. WBCs, Urine 1 /HPF Invalid Interpretation Code 0 - 5 [facility] Urinalysis, Routineon 2017 Ketone,Urine Negative Normal NEG;NEGATIV E [facility] Comment on above: Performed By: #### P REGUR, UA ####Unless otherwise noted, all testing performed by [address] [phone]: [id number] Director: Diego Hamilton M.D. Leuk.Esterase,Urine Negative Normal Negative [facility] Comment on above: Performed By: #### P REGUR, UA ####Unless otherwise noted, all testing performed by [address] [phone]: [id number] Director: Diego Hamilton M.D. Specific [place],Urine 1.024 Normal 1.003-1.029 [facility] Comment on above: Performed By: #### P REGUR, UA ####Unless otherwise noted, all testing performed by [address] [phone]: [id number] Director: Diego Hamilton M.D. Squamous Epithelial 4 /HPF Normal 0-40 [facility] Comment on above: Performed By: #### P REGUR, UA ####Unless otherwise noted, all testing performed by [address] [phone]: [id number] Director: Diego Hamilton M.D. Urine, erythrocytes in sediment by area /[HPF] Normal 0-5 [facility] Comment on above: Performed By: #### P REGUR, UA ####Unless otherwise noted, all testing performed by [address] [phone]: [id number] Director: Diego Hamilton M.D. WBC,Urine 1 /HPF Normal 0-5 [facility] Comment on above: Performed By: #### P REGUR, UA ####Unless otherwise noted, all testing performed by [address] [phone]: [id number] Director: Diego Hamilton M.D. CBC and Differentialon 11-11 Basophils Auto #/vol (Bld) 0.0 K/mcL Invalid Interpretation Code 0 - 0.2 [facility] Basophils/100 WBC Auto (Bld) 0.3 % Normal [facility] Comment on above: Performed By: #### C BCDIF, EXCEP, LIPASE ####Unless otherwise noted, all testing performed by [address], [place] [phone]: [id number] Director: Diego Hamilton M.D. Eosinophils 0.1 K/mcL Invalid Interpretation Code 0 - 0.5 [facility] Eosinophils/100 leukocytes 0.6 % Normal [facility] Comment on above: Performed By: #### C BCDIF, EXCEP, LIPASE ####Unless otherwise noted, all testing performed by [address] [phone]: [id number] Director: Diego Hamilton M.D. Erythrocyte distribution width Auto Ratio (RBC) 13.2 % Normal 10.0-14.4 [facility] Comment on above: Performed By: #### C BCDIF, EXCEP, LIPASE ####Unless otherwise noted, all testing performed by [address] [phone]: [id number] Director: Diego Hamilton M.D. Erythrocytes (RBC) 5.13 M/mcL High 3.7 - 5.0 [facility] Hematocrit (HCT) 47.0 % High 34.4-44.8 [facility] Comment on above: Performed By: #### C BCDIF, EXCEP, LIPASE ####Unless otherwise noted, all testing performed by [address] [phone]: [id number] Director: Diego Hamilton M.D. Hemoglobin mass conc (Bld) 15.3 g/dL Normal 11.6-15.4 [facility] Comment on above: Performed By: #### C BCDIF, EXCEP, LIPASE ####Unless otherwise noted, all testing performed by [address] [phone]: [id number] Director: Diego Hamilton M.D. Lymphocytes 1.5 K/mcL Invalid Interpretation Code 1.0 - 3.7 [facility] Lymphocytes/100 leukocytes 12.1 % Normal [facility] Comment on above: Performed By: #### C BCDIF, EXCEP, LIPASE ####Unless otherwise noted, all testing performed by [address] [phone]: [id number] Director: Diego Hamilton M.D. MCH 29.8 pg Normal 27.9-33.9 [facility] Comment on above: Performed By: #### C BCDIF, EXCEP, LIPASE ####Unless otherwise noted, all testing performed by [address] [phone]: [id number] Director: Diego Hamilton M.D. MCHC mass conc (RBC) 32.6 g/dL Low 33.1-35.1 [facility] Comment on above: Performed By: #### C BCDIF, EXCEP, LIPASE ####Unless otherwise noted, all testing performed by [address] [phone]: [id number] Director: Diego Hamilton M.D. MCV 91.5 fL Normal 82.6-98.9 [facility] Comment on above: Performed By: #### C BCDIF, EXCEP, LIPASE ####Unless otherwise noted, all testing performed by [address] [phone]: [id number] Director: Diego Hamilton M.D. Monocytes 0.6 K/mcL Invalid Interpretation Code 0.1 - 0.6 [facility] Monocytes/100 leukocytes 5.1 % Normal [facility] Comment on above: Performed By: #### C BCDIF, EXCEP, LIPASE ####Unless otherwise noted, all testing performed by [address] [phone]: [id number] Director: Diego Hamilton M.D. Neutrophils 10.0 K/mcL High 1.2 - 6.9 [facility] Platelet mean volume (PMV) 11.1 fL High 7.0-10.6 [facility] Comment on above: Performed By: #### C BCDIF, EXCEP, LIPASE ####Unless otherwise noted, all testing performed by [address] [phone]: [id number] Director: Diego Hamilton M.D. Platelets 235 K/mcL Invalid Interpretation Code 162 - 402 [facility] Segmented Neut 81.9 % Invalid Interpretation Code [facility] WBC (Leukocytes) 12.2 K/mcL High 3.4 - 10.6 [facility] CBC with Diffon 11-11-2017 Basophils Auto #/vol (Bld) 0.0 K/mcL Normal 0-0.2 [facility] Comment on above: Performed By: #### C BCDIF, EXCEP, LIPASE ####Unless otherwise noted, all testing performed by [address] [phone]: [id number] Director: Diego Hamilton M.D. Eosinophils 0.1 K/mcL Normal 0-0.5 [facility] Comment on above: Performed By: #### C BCDIF, EXCEP, LIPASE ####Unless otherwise noted, all testing performed by [address] [phone]: [id number] Director: Diego Hamilton M.D. Erythrocytes (RBC) 5.13 M/mcL High 3.7-5.0 [facility] Comment on above: Performed By: #### C BCDIF, EXCEP, LIPASE ####Unless otherwise noted, all testing performed by [address]8509CLIA: [id number] Director: Diego Hamilton M.D. Lymphocytes 1.5 K/mcL Normal 1.0-3.7 [facility] Comment on above: Performed By: #### C BCDIF, EXCEP, LIPASE ####Unless otherwise noted, all testing performed by [address]8509CLIA: [id number] Director: Diego Hamilton M.D. Monocytes 0.6 K/mcL Normal 0.1-0.6 [facility] Comment on above: Performed By: #### C BCDIF, EXCEP, LIPASE ####Unless otherwise noted, all testing performed by [place] [phone]: [id number] Director: Diego Hamilton M.D. Neutrophils 10.0 K/mcL High 1.2-6.9 [facility] Comment on above: Performed By: #### C BCDIF, EXCEP, LIPASE ####Unless otherwise noted, all testing performed by [address] [phone]: [id number] Director: Diego Hamilton M.D. Platelets 235 K/mcL Normal 162-402 [facility] Comment on above: Performed By: #### C BCDIF, EXCEP, LIPASE ####Unless otherwise noted, all testing performed by [address] [phone]: [id number] Director: Diego Hamilton M.D. Segmented Neut % 81.9 % Normal [facility] Comment on above: Performed By: #### C BCDIF, EXCEP, LIPASE ####Unless otherwise noted, all testing performed by [address] [phone]: [id number] Director: Diego Hamilton M.D. WBC (Leukocytes) 12.2 K/mcL High 3.4-10.6 [facility] Comment on above: Performed By: #### C BCDIF, EXCEP, LIPASE ####Unless otherwise noted, all testing performed by [address] [phone]: [id number] Director: Diego Hamilton M.D. Exception Noticeon 8 Exception Notice Complete Metabolic Panel cancelled due to hemolysis. Will be redrawn. Normal [facility] Comment on above: Performed By: #### C BCDIF, EXCEP, LIPASE ####Unless otherwise noted, all testing performed by [address] [phone]: [id number] Director: Diego Hamilton M.D. Lipaseon 11-11-2017 Interpretation and review of laboratory results Abnormal Invalid Interpretation Code [facility] Lipase 52 U/L Low 73-393 [facility] Comment on above: Performed By: #### C BCDIF, EXCEP, LIPASE ####Unless otherwise noted, all testing performed by [place] [address], [place] [phone]: [id number] Director: Diego Hamilton M.D. US TRANSVAGINAL WITH [...] amount of free fluid, likely physiologic. Normal [facility] Vital Signs Date Time Vital Sign Value Performing Clinician Faci lity 07-29-2023 13:08-0400 Body height 162.6 cm Dana Mcdonough MD Work Phone: [facility] 07-29-2023 13:08-0400 Body mass index (BMI) [Ratio] 38.21 kg/m2 Dana [facility]cdonough [facility] 07-29-2023 13:08-0400 Body weight 100.97 kg Dana Mcdonough MD Work Phone: [facility] [employer] [facility] 07-29-2023 13:08-0400 Diastolic blood pressure 64 mm[Hg] Dana Mcdonough MD Work Phone: [facility] 07-29-2023 13:08-0400 Heart rate 88 /min Dana Mcdonough MD [facility] 07-29-2023 13:08-0400 Systolic blood pressure 105 mm[Hg] Dana Mcdonough MD Work Phone: [facility] [place] 12-19-2022 10:04-0400 Body mass index (BMI) [Ratio] 39.51 kg/m2 Matthew Tafoya MD Work Phone: [facility] 12-19-2022 10:04-0400 Body temperature 98.29 [degF] Matthew Tafoya MD Work Phone: [facility] 12-19-2022 10:04-0400 Body weight 104.42 kg Matthew Tafoya MD Work Phone: [facility] 12-19-2022 10:04-0400 Diastolic blood pressure 82 mm[Hg] Matthew Tafoya MD Work Phone: [facility] 12-19-2022 10:04-0400 Heart rate 106 /min Matthew Tafoya MD Work Phone: [facility] 12-19-2022 10:04-0400 Respiratory rate 16 /min Matthew Tafoya MD Work Phone: [facility] 12-19-2022 10:04-0400 SaO2% (BldA) [Mass fraction] 95 % Matthew Tafoya MD Work Phone: [facility] 12-19-2022 10:04-0400 Systolic blood pressure 119 mm[Hg] Matthew Tafoya MD Work Phone: [facility] 12-06-2022 13:24-0400 Body temperature 98.42 [degF] Graham Choe [facility] 12-06-2022 13:24-0400 Diastolic blood pressure 75 mm[Hg] Graham Choe [facility] 12-06-2022 13:24-0400 Heart rate 95 /min Graham Choe [facility] 12-06-2022 13:24-0400 Mean blood pressure 95 mm[Hg] Graham Choe [facility] 12-06-2022 13:24-0400 Respiratory rate 18 /min Graham Choe [facility] 12-06-2022 13:24-0400 SaO2% (BldA) [Mass fraction] 96 % Graham Choe [facility] 12-06-2022 13:24-0400 Systolic blood pressure 136 mm[Hg] Graham Choe [facility] 06-16-2022 01:37-0500 Body height 162.6 cm Hoang Santos MD Work Phone: [facility] [employer] 06-16-2022 01:37-0500 Body mass index (BMI) [Ratio] 39.94 kg/m2 Hoang Santos MD Work Phone: [facility] [employer] 06-16-2022 01:37-0500 Body temperature 98.01 [degF] Hoang Santos MD Work Phone: [facility] [employer] 06-16-2022 01:37-0500 Body weight 105.55 kg Hoang Santos MD Work Phone: [facility] [employer] 06-16-2022 01:37-0500 Diastolic blood pressure 77 mm[Hg] Hoang Santos MD Work Phone: [facility] [employer] 06-16-2022 01:37-0500 Heart rate 88 /min Hoang Santos MD Work Phone: [facility] [employer] 06-16-2022 01:37-0500 Respiratory rate 16 /min Hoang Santos MD Work Phone: [facility] [employer] 06-16-2022 01:37-0500 SaO2% (BldA) [Mass fraction] 98 % Hoang Santos MD Work Phone: [facility] [employer] 06-16-2022 01:37-0500 Systolic blood pressure 122 mm[Hg] Hoang Santos MD Work Phone: [facility] [employer] 03-13-2022 09:30-0500 Body height 162.6 cm Bea Jacobs MD Work Phone: [facility] [employer] 03-13-2022 09:30-0500 Body mass index (BMI) [Ratio] 37.81 kg/m2 Bea Jacobs MD Work Phone: [facility] [employer] 03-13-2022 09:30-0500 Body temperature 98.2 [degF] Bea Jacobs MD Work Phone: [facility] [employer] 03-13-2022 09:30-0500 Body weight 99.93 kg Bea Jacobs MD Work Phone: [facility] [employer] 03-13-2022 09:30-0500 Diastolic blood pressure 72 mm[Hg] Bea Jacobs MD Work Phone: [facility] [employer] 03-13-2022 09:30-0500 Heart rate 76 /min Bea Jacobs MD Work Phone: [facility] [employer] 03-13-2022 09:30-0500 Respiratory rate 18 /min Bea Jacobs MD Work Phone: [facility] [employer] 03-13-2022 09:30-0500 SaO2% (BldA) [Mass fraction] 96 % Bea Jacobs MD Work Phone: [facility] [employer] 03-13-2022 09:30-0500 Systolic blood pressure 116 mm[Hg] Bea Jacobs MD Work Phone: [facility] [employer] 11-29-2021 14:37-0400 Diastolic blood pressure 69 mm[Hg] Bea Jacobs MD Work Phone: [facility] [employer] 11-29-2021 14:37-0400 Heart rate 80 /min Bea Jacobs MD Work Phone: [facility] [employer] 11-29-2021 14:37-0400 SaO2% (BldA) [Mass fraction] 96 % Bea Jacobs MD Work Phone: [facility] [employer] [facility] 11-29-2021 14:37-0400 Systolic blood pressure 112 mm[Hg] Bea Jacobs MD Work Phone: [facility] [employer] 11-29-2021 14:36-0400 Body height 162.6 cm Bea Jacobs MD Work Phone: [facility] [employer] 11-29-2021 14:36-0400 Body mass index (BMI) [Ratio] 36.39 kg/m2 Bea Jacobs MD Work Phone: [facility] [employer] 11-29-2021 14:36-0400 Body temperature 99.5 [degF] Bea Jacobs MD Work Phone: [facility] [employer] 11-29-2021 14:36-0400 Body weight 96.16 kg Bea Jacobs MD Work Phone: [facility] [employer] 11-29-2021 14:36-0400 Respiratory rate 18 /min Bea Jacobs MD Work Phone: [facility] [employer] 05-22-2021 14:29-0500 Body mass index (BMI) [Ratio] 32.89 kg/m2 Hoang Santos MD Work Phone: [employer] 05-22-2021 14:29-0500 Body temperature 99.5 [degF] Hoang Santos MD Work Phone: [employer] 05-22-2021 14:29-0500 Body weight 92.44 kg Hoang Santos MD Work Phone: [facility] 05-22-2021 14:29-0500 Diastolic blood pressure 61 mm[Hg] Hoang Santos MD Work Phone: [facility] 05-22-2021 14:29-0500 Heart rate 97 /min Hoang Santos MD Work Phone: [facility] 05-22-2021 14:29-0500 Respiratory rate 18 /min Hoang Santos MD Work Phone: [facility] 05-22-2021 14:29-0500 SaO2% (BldA) [Mass fraction] 96 % Hoang Santos MD Work Phone: [facility] 05-22-2021 14:29-0500 Systolic blood pressure 117 mm[Hg] Hoang Santos MD Work Phone: [facility] 04-12-2021 18:20-0500 Body temperature 98.6 [degF] Dana Redman MD Work Phone: [facility] 04-12-2021 18:20-0500 Diastolic blood pressure 75 mm[Hg] Dana Redman MD Work Phone: [facility] 04-12-2021 18:20-0500 Heart rate 92 /min Dana Redman MD Work Phone: [facility] 04-12-2021 18:20-0500 Respiratory rate 20 /min Dana Redman MD Work Phone: [facility] 04-12-2021 18:20-0500 SaO2% (BldA) [Mass fraction] 96 % Dana Redman MD Work Phone: [facility] 04-12-2021 18:20-0500 Systolic blood pressure 118 mm[Hg] Dana Redman MD Work Phone: [facility] 04-12-2021 18:18-0500 Body height 167.6 cm Dana Redman MD Work Phone: [facility] 04-12-2021 18:18-0500 Body mass index (BMI) [Ratio] 32.28 kg/m2 Dana Redman MD Work Phone: [facility] 04-12-2021 18:18-0500 Body weight 90.72 kg Dana Redman MD Work Phone: [facility] 02-10-2021 17:39-0400 Body temperature 99.1 [degF] Braydon May MD Work Phone: [facility] Work Phone: 02-10-2021 17:27-0400 Body height 162.6 cm Braydon May MD Work Phone: [facility] Work Phone: 02-10-2021 17:27-0400 Body mass index (BMI) [Ratio] 37.75 kg/m2 Braydon May MD Work Phone: [facility] Work Phone: 02-10-2021 17:27-0400 Body weight 99.75 kg Braydon May MD Work Phone: [facility] Work Phone: 02-10-2021 17:27-0400 Diastolic blood pressure 84 mm[Hg] Braydon May MD Work Phone: [facility] Work Phone: 02-10-2021 17:27-0400 Heart rate 83 /min Braydon May MD Work Phone: [facility] Work Phone: 02-10-2021 17:27-0400 Respiratory rate 20 /min Braydon Mya MD Work Phone: [facility] Work Phone: 02-10-2021 17:27-0400 SaO2% (BldA) [Mass fraction] 95 % Braydon May MD Work Phone: [facility] Work Phone: 02-10-2021 17:27-0400 Systolic blood pressure 128 mm[Hg] Braydon May MD Work Phone: [facility] Work Phone: 12-10-2020 19:54-0400 Diastolic blood pressure 63 mm[Hg] Bea Jacobs MD Work Phone: [facility] Work Phone: 12-10-2020 19:54-0400 SaO2% (BldA) [Mass fraction] 97 % Bea Jacobs MD Work Phone: [facility] [employer] Work Phone: 12-10-2020 19:54-0400 Systolic blood pressure 111 mm[Hg] Bea Jacobs MD Work Phone: [facility] [employer] Work Phone: 08-01-2020 18:44-0400 BMI (Body Mass Index) 33.47 kg/m2 [facility] Work Phone: 08-01-2020 18:44-0400 Body Temperature 97.9 [degF] [facility] Work Phone: 08-01-2020 18:44-0400 Body weight 88.45 kg [facility] Work Phone: 08-01-2020 18:44-0400 BP Diastolic 72 mm[Hg] [facility] Work Phone: 08-01-2020 18:44-0400 BP Systolic 127 mm[Hg] [facility] Work Phone: 08-01-2020 18:44-0400 Height 162.6 cm [facility] Work Phone: 08-01-2020 18:44-0400 Pulse (Heart Rate) 93 /min [facility] Work Phone: 08-01-2020 18:44-0400 Pulse Oximetry 99 % [place] Reynaldo [facility] Work Phone: 08-01-2020 18:44-0400 Respiratory Rate 16 /min [facility] Work Phone: 01-04-2020 12:33-0400 BMI (Body Mass Index) 32.96 kg/m2 Juanito Hernandez [facility] 01-04-2020 12:33-0400 Body Temperature 98.1 [degF] [facility] 01-04-2020 12:33-0400 Body weight 87.09 kg [facility] 01-04-2020 12:33-0400 BP Diastolic 63 mm[Hg] [facility] 01-04-2020 12:33-0400 BP Systolic 115 mm[Hg] [facility] 01-04-2020 12:33-0400 Height 162.6 cm [facility] 01-04-2020 12:33-0400 Pulse (Heart Rate) 83 /min [facility] 01-04-2020 12:33-0400 Pulse Oximetry 97 % [facility] 12-23-2019 21:12-0400 BMI (Body Mass Index) 32.96 kg/m2 [facility] Interview Master [facility] [place] 12-23-2019 21:12-0400 Body Temperature 98.71 [degF] [facility] Interview [facility] [place] 12-23-2019 21:12-0400 Body weight 87.09 kg [facility] [place] 12-23-2019 21:12-0400 BP Diastolic 69 mm[Hg] [facility] [place] 12-23-2019 21:12-0400 BP Systolic 129 mm[Hg] [facility] [place] 12-23-2019 21:12-0400 Pulse (Heart Rate) 102 /min [facility] Interview Master [facility] [place] 12-23-2019 21:12-0400 Pulse Oximetry 100 % [facility] [place] 12-23-2019 21:12-0400 Respiratory Rate 18 /min [facility] [place] 10-22-2019 12:21-0400 BMI (Body Mass Index) 33.3 kg/m2 [facility] [place] 10-22-2019 12:21-0400 Body Temperature 98.8 [degF] Arin Carter [facility] [place] 10-22-2019 12:21-0400 Body weight 88 kg Arin Carter [facility] , [place] 10-22-2019 12:21-0400 BP Diastolic 67 mm[Hg] [facility] [place] 10-22-2019 12:21-0400 BP Systolic 113 mm[Hg] Arin Carter [facility] , [place] 10-22-2019 12:21-0400 Height 162.6 cm [place] 10-22-2019 12:21-0400 Pulse (Heart Rate) 77 /min Arin Carter [facility] [place] 10-22-2019 12:21-0400 Pulse Oximetry 98 % [facility] [place] 10-22-2019 12:21-0400 Respiratory Rate 18 /min [facility]in [facility] [place], [place] 04-06-2019 13:49-0500 Pulse Oximetry 98 % Bea Jacobs [place], [place] 04-06-2019 13:39-0500 BP Diastolic 92 mm[Hg] [facility] [place] 04-06-2019 13:39-0500 BP Systolic 119 mm[Hg] [facility] [place] 04-06-2019 13:37-0500 Body Temperature 97.59 [degF] [facility] [place] 04-06-2019 13:37-0500 Body weight 84.82 kg [facility] [place], [place] 04-06-2019 13:37-0500 Pulse (Heart Rate) 77 /min [facility] [place], [place] 04-06-2019 13:37-0500 Respiratory Rate 16 /min [place] Encounters Encounter Date Encounter Type Care Provider Facility Start: 11-04-2023 End: 11-04-2023 ambulatory LOY ASHER Not Available Start: 11-02-2023 End: 11-02-2023 ambulatory [facility] Start: 10-31-2023 End: 11-03-2023 Evaluation and management of inpatient ZAYRA Squires [facility] Start: 10-31-2023 End: 10-31-2023 ambulatory HERMAN URRUTIA [facility] Start: 10-31-2023 End: 10-31-2023 ambulatory TRISH ZIMMERMAN [facility] Start: 10-22-2023 ambulatory Redd Dueñas acility:[facility] Start: 10-20-2023 End: 10-20-2023 ambulatory LOY ASHER Not Available Start: 10-13-2023 End: 10-13-2023 Emergency department patient [facility] Start: 10-09-2023 End: 10-09-2023 [facility] Start: 08-29-2023 End: 08-29-2023 ambulatory LOY ASHER [facility] Start: 08-18-2023 End: 08-18-2023 ambulatory [facility] Start: 07-29-2023 End: 07-29-2023 Office outpatient new 45 minutes Dana Mcdonough MD Work Phone: [facility] Comment on above: Type 2 diabetes ashley itus affecting in second trimester, antepartum (Primary Dx); Twin , dichorionic/diamniotic, second trimester; Obesity affecting in second trimester, unspecified obesity type; Bipolar disease during in second trimester ([facility]); Post traumatic stress disorder; Tobacco smoking affecting in second trimester Start: 07-29-2023 End: 07-29-2023 Orders Only Dawit Carter [facility] Comment on above: Type 2 diabetes ashley itus affecting in second trimester, antepartum (Primary Dx); Twin , dichorionic/diamniotic, second trimester; Bipolar disease during in second trimester ([facility]) Start: 07-29-2023 End: 07-30-2023 ambulatory ROSA ROCHA [facility] Start: 07-24-2023 Telephone encounter Thuy CRESPO [facility] Start: 07-15-2023 Telephone encounter Rosa crane RN Work Phone: [facility] Start: 07-09-2023 Orders Only Not In System Ref Prov [facility] Start: 06-30-2023 End: 06-30-2023 ambulatory LOY YOGI Not Available Start: 05-30-2023 End: 05-30-2023 ambulatory LOY YOGI Not Available Start: 05-15-2023 End: 05-15-2023 ambulatory LOY YOGI Not Available Start: 04-01-2023 End: 04-01-2023 Emergency department patient visit [facility] Start: 02-13-2023 End: 02-13-2023 ambulatory [facility] Start: 12-22-2022 End: 12-22-2022 Emergency department patient visit [facility] Start: 12-19-2022 End: 12-19-2022 Emergency department patient visit Matthew Tafoya MD Work Phone: [facility] Comment on above: Acute cystitis witho ut hematuria (Primary Dx); Vaginal yeast infection Start: 12-06-2022 End: 12-06-2022 Emergency department patient visit Graham Choe Facility[facility] Start: 12-06-2022 End: 12-06-2022 Emergency department patient visit Graham Choe [facility] Start: 06-16-2022 End: 06-16-2022 Emergency department patient visit Hoang Santos MD Work Phone: [facility] Comment on above: Nausea and vomiting, unspecified vomiting type (Primary Dx); Intractable headache, unspecified chronicity pattern, unspecified headache type Start: 03-13-2022 End: 03-13-2022 Emergency department patient visit Bea Jacobs MD Work Phone: [facility] Comment on above: Acute midline low ba ck pain without sciatica (Primary Dx) Start: 11-29-2021 End: 11-29-2021 Emergency department patient visit Bea Jacobs MD Work Phone: [facility] Comment on above: Hordeolum externum [...] :H1 Start: 05-31-2021 End: 06-01-2021 ambulatory DAVID LEZAMA [facility] Start: 05-22-2021 End: 05-22-2021 Emergency department patient visit Hoang Santos MD Work Phone: [facility] Comment on above: COVID-19 virus infec tion (Primary Dx); Second trimester Start: 04-12-2021 End: 04-12-2021 Emergency department patient visit Dana Redman MD Work Phone: [facility] Comment on above: Depression during pr egnancy in first trimester (Primary Dx); Dehydration Start: 04-01-2021 End: 04-01-2021 Emergency department [facility] Start: 03-25-2021 End: 03-25-2021 Emergency department patient visit [facility] Start: 02-10-2021 End: 02-10-2021 Emergency department patient visit Braydon May MD Work Phone: [facility] Comment on above: Threatened miscarria ge in early (Primary Dx) Start: 12-10-2020 End: 12-10-2020 Emergency department patient visit Bea Jacobs MD Work Phone: [facility] Comment on above: Symptoms of dehydrat ion (Primary Dx); Nausea vomiting and diarrhea Start: 08-02-2020 End: 08-07-2020 Evaluation and management of inpatient BEA JACOBS [facility] Start: 08-01-2020 End: 08-02-2020 Emergency department patient visit Bea Jacobs Work Phone: [facility] Comment on above: Suicidal thoughts (P rimary Dx); Depression with suicidal ideation Start: 05-22-2020 End: 05-26-2020 Patient encounter procedure [facility] Start: 03-22-2020 End: 03-26-2020 Patient [facility] Start: 01-18-2020 End: 01-18-2020 Subsequent hospital visit by physician Perla [facility] Comment on above: Palpitations Start: 01-04-2020 End: 01-04-2020 Patient encounter procedure JUANITO HERNANDEZ [facility] Start: 01-04-2020 End: 01-04-2020 Office outpatient visit 25 minutes Juanito Hernandez Work Phone: [facility] Comment on above: Anxious depression ( Primary Dx); Smoker; Weight gain; Fatigue, unspecified type; Screening cholesterol level Start: 12-23-2019 End: 12-23-2019 Emergency department patient visit Hoang Santos Work Phone: [facility] Comment on above: Bronchitis (Primary Dx) Start: 11-22-2019 End: 11-22-2019 Patient encounter procedure [facility] Start: 11-12-2019 End: 11-12-2019 Patient encounter procedure [facility] Start: 11-01-2019 End: 11-01-2019 Subsequent hospital visit by physician [facility] Comment on above: Exposure to COVID-19 virus; Cough in adult patient Start: 10-22-2019 End: 10-22-2019 Emergency department patient visit Arin Navarro Rosetta Work Phone: [facility] Comment on above: Acute bronchitis, un specified organism (Primary Dx); Tobacco abuse; Encounter for laboratory testing for COVID-19 virus Start: 04-06-2019 End: 04-06-2019 Emergency department patient visit Bea Jacobs Work Phone: [facility] Comment on above: Bronchitis (Primary Dx); Acute sinusitis, recurrence not specified, unspecified location Start: 11-11-2017 End: 11-12-2017 Emergency department patient visit Aicha Méndez [facility] Start: 11-11-2017 End: 11-11-2017 Ambulatory Aicha Méndez Work Phone: [facility] Start: 01-20-2017 Ambulatory GAYE [facility] Start: 01-16-2017 Ambulatory [facility] Procedures Date Procedure Procedure Detail Performing Clinician [...] Adult BMI Screening [facility] Start: 07-28-2024 Tobacco Screening Tobacco Screening [facility] Start: 07-28-2024 End: 07-28-2024 US MFM with or without consult US MFM with or without consult Imaging Routine Twin , dichorionic/diamniotic, second trimester Bipolar disease during in second trimester ([facility]) Expected: 07/28/2024 (Approximate), Expires: 07/28/2024 [employer] Work Phone: Comment on above: Expected: 07/28/2024 (Approximate), Expires: 07/28/2024 Start: 08-29-2023 End: 08-29-2023 Patient encounter procedure 08/29/2023 1:00 PM EDT Appointment [facility] [address] [place] [address] [facility] Start: 07-29-2023 End: 07-29-2023 Patient encounter procedure [facility] Start: 07-15-2023 End: 07-15-2023 Patient encounter procedure 07/15/2023 2:00 PM EDT Office Visit [facility] [address] [place] [address] Gaby Bustillos PA-C [address] [address] [facility] Start: 07-15-2023 End: 07-15-2023 ambulatory 07/15/2023 1:00 PM EDT Support Visit [facility] [address] [place] [address] Rosa Rocha RN [address] [facility] [address] [address] Carmen Cheung LD [facility] Start: 03-22-2023 Screening for malign ant neoplasm of cervix Pap smear [facility] Start: 01-03-2023 Influenza vaccination Influenza Vacc [facility] Start: 12-03-2022 Influenza vaccination Flu vaccine (# 1) [facility] Start: 03-29-2022 Screening for Chlamy deisy trachomatis [facility] Start: 01-03-2022 Influenza vaccination Flu vaccine (# 1) [facility] Start: 12-03-2021 Influenza vaccination Flu vaccine (# 1) [facility] Start: 05-31-2021 End: 05-31-2021 Patient encounter procedure 05/31/2021 Routine Perinatology [facility] Start: 01-17-2021 Depression Monitoring Depression [place] [facility] Start: 01-03-2021 Influenza vaccination Flu vaccine (# 1) [facility] Start: 04-04-2020 End: 01-03-2021 Complete blood count with white cell differential, manual CBC and Differential Lab Routine Fatigue, unspecified type Expected: 04/04/2020 (Approximate), Expires: 01/03/2021 [facility] Comment on above: Expected: 04/04/2020 (Approximate), Expires: 01/03/2021 Start: 04-04-2020 End: 01-03-2021 Comprehensive metabolic 2000 panel Comprehensive Metabolic Panel Lab Routine Fatigue, unspecified type Expected: 04/04/2020 (Approximate), Expires: 01/03/2021 [facility] Comment on above: Expected: 04/04/2020 (Approximate), Expires: 01/03/2021 Start: 04-04-2020 End: 01-03-2021 Magnesium [Mass/Vol] Magnesium Level Lab Routine Fatigue, unspecified type Expected: 04/04/2020 (Approximate), Expires: 01/03/2021 [facility] Comment on above: Expected: 04/04/2020 (Approximate), Expires: 01/03/2021 Start: 02-18-2020 End: 02-18-2020 Office Visit 02/18/2020 Office Visit Family Medicine Perla Rm, DO [address] [place] [address] [facility] Start: 02-15-2020 End: 02-15-2020 Office Visit 02/15/2020 Office Visit Primary Care Juanito Hernandez MD [facility] [place] [address] [facility] Start: 01-04-2020 Influenza vaccination [facility] [place], [place] Start: 01-04-2020 Influenza vaccinatio n given Sequential Influenza Vaccine (#1) [facility] Start: 12-12-2019 DTaP,Tdap and Td Vaccines (7 - Td or Tdap) DTaP,Tdap and Td Vaccines (7 - Td or Tdap) [facility] Start: 12-12-2019 DTaP/Tdap/Td vaccine (7 - Td or Tdap) DTaP/Tdap/Td vaccine (7 - Td or Tdap) [facility] Start: 07-16-2019 Screening for Chlamy deisy trachomatis Chlamydia Screening [facility] Start: 01-03-2019 Influenza vaccination Flu vaccine (# 1) [place] Start: 2018 Cervical cancer screen Cervical canc er screen [place], [place] Start: 2018 Screening for malign ant neoplasm of cervix [facility] Start: 2016 DTaP,Tdap and Td Vaccines (1 - Tdap) DTaP,Tdap and Td Vaccines (1 - Tdap) [facility] Start: 2016 DTaP/Tdap/Td vaccine (1 - Tdap) DTaP/Tdap/Td vaccine (1 - Tdap) [facility] Start: 08-15-2015 Adult BMI Follow Up Plan Adult BMI Follow Up Plan [facility] Start: 08-15-2015 Adult BMI Screening Adult BMI Screen ing [facility] Start: 08-15-2015 Diabetic foot examination Diabetic Foot Exam [facility] Start: 08-15-2015 Hepatitis C screening Hepatitis C sc reen [facility] Start: 2013 Chlamydia screen Chlamydia screen [place], [place] Start: 2013 COVID-19 Vaccine (1) COVID-19 Vaccin e (1) [facility] Work Phone: Start: 2013 Screening for Chlamy deisy trachomatis Chlamydia screen [facility] Start: 2012 HIV screen HIV screen [place], [place] Start: 2012 HIV screening HIV screen [facility] Start: 03-05-2010 Varicella vaccine (2 of 2 - 2-dose childhood series) Varicella vaccine (2 of 2 - 2-dose childhood series) [facility] Start: 2009 COVID-19 Vaccine (1) COVID-19 Vaccin e (1) [facility] Start: 2009 Depression Monitoring Depression Mon leonard [facility] Start: 2009 Depression Screening Depression Scre ening [facility] Start: 2009 Tobacco Screening Tobacco Screening [facility] Start: 2008 DTaP/Tdap/Td vaccine (1 - Tdap) DTaP/Tdap/Td vaccine (1 - Tdap) [place], [place] Start: 2008 HPV vaccine (1 - 2-d ose series) HPV vaccine (1 - 2-dose series) [facility] Start: 2008 HPV vaccine (1 - Fem man 2-dose series) HPV vaccine (1 - Female 2-dose series) [place], [place] Start: 2008 Vaccination for maria del carmen n papillomavirus HPV Vaccines (1 - 2-dose series) [facility] Start: 08-15-2003 Pneumococcal 0-64 ye ars Vaccine (1 - PCV) Pneumococcal 0-64 years Vaccine (1 - PCV) [facility] Start: 08-15-2003 Pneumococcal 0-64 ye ars Vaccine (1 of 1 - PPSV23) Pneumococcal 0-64 years Vaccine (1 of 1 - PPSV23) [place] Start: 08-15-2003 Pneumococcal 0-64 ye ars Vaccine (1 of 2 - PPSV23) Pneumococcal 0-64 years Vaccine (1 of 2 - PPSV23) [facility] Start: 2002 COVID-19 Vaccine (1) COVID-19 Vaccin e (1) [facility] Start: 2000 History and physical examination, annual for health maintenance Wellness Visit [facility] Start: 1998 Varicella Vaccine (1 of 2 - 2-dose childhood series) Varicella Vaccine (1 of 2 - 2-dose childhood series) [facility] Start: 02-13-1998 COVID-19 Vaccine (#1) COVID-19 Vacci ne (#1) [facility] Start: 1997 Depression screening using PHQ-9 (Patient Health Questionnaire 9) score Depression Screening (PHQ9) [facility] Start: 1997 Glaucoma screening Diabetic Op hthalmology Exam [facility] Start: 1997 Hepatitis C screening Hepatitis C sc reen [facility] Start: 1997 Screening for malign ant neoplasm of cervix Pap Smear [facility] Start: 1997 Tetanus vaccination Tetanus: Every 1 0yrs [facility] Start: 1997 Tobacco Counseling Tobacco Counselin g [facility] Start: 1997 Urine screening for protein Urine Microalbumin [facility] End: 01-03-2021 Cholesterol [Mass/Vol] Cholesterol, Total Lab Routine Screening cholesterol level 1 Occurrences starting 01/04/2020 until 01/03/2021 [facility] Comment on above: 1 Occurrences starti ng 01/04/2020 until 01/03/2021 End: 10-22-2019 COVID-19 COVID-19 Lab Routine One Time for 1 Occurrences starting 10/22/2019 until 10/22/[address] [facility] Comment on above: One Time for 1 Occur rences starting 10/22/2019 until 10/22/2019 End: 11-01-2019 Covid-19 Ambulatory Covid-19 Ambulatory Lab Routine Exposure To Covid-19 Virus Cough in adult patient 1 Occurrences starting 11/01/2019 until 11/01/[address] [facility] Comment on above: 1 Occurrences starti ng 11/01/2019 until 11/01/2019 Covid-19 Ambulatory Covid-19 Amb ulatory Lab Routine Exposure to COVID-19 virus Cough in adult patient 11/01/2019 11:25 AM EDT [facility] End: 02-10-2021 Culture, Urine Culture, Urine Microbiology Routine Once for 1 Occurrences starting 02/10/2021 until 02/10/2021 [employer] Work Phone: Comment on above: Once for 1 Occurrenc es starting 02/10/2021 until 02/10/2021 Culture, Urine Culture, Urine Microbiology Routine 02/10/2021 5:41 PM [facility]: End: 12-19-2022 Culture, Urine [facility] [employer] Comment on above: Once for 1 Occurrenc es starting 12/19/2022 until 12/19/2022 End: 10-22-2019 MDI Treatment MDI Treatment Respiratory Care Routine One Time for 1 Occurrences starting 10/22/2019 until 10/22/[address] [facility] Comment on above: One Time for 1 Occur rences starting 10/22/2019 until 10/22/2019 MDI Treatment MDI Treatment Respiratory Care Routine Every 6hr As Needed until discontinued starting 10/22/[address] [facility] [place] Comment on above: Every 6hr As Needed until discontinued starting 10/22/2019 End: 01-03-2021 TSH Qn TSH with Reflex Free T4 Lab Routine Weight gain Fatigue, unspecified type 1 Occurrences starting 01/04/2020 until 01/03/2021 [facility] Comment on above: 1 Occurrences starti ng 01/04/2020 until 01/03/2021 Immunizations Immunization Date Immunization Notes Care Provider Fa cility 03-02-2012 influenza virus vaccine, unspecified formulation Dawit Carter [facility] [employer] NEGATED: Highlighted row has not occurred!06-13-2020 influenza virus vaccine, unspecified formulation Graham Choe [facility] Payers Date Payer Category Payer Medicaid [employer] [facility] HMO [id number] 2023-Present [phone] [address] [place] [address] [id number] 2023 Medicaid [id number] 2019 Unknown [id number] 2018 Medicaid [id number] 2018 Unknown [id number] 2018 Unknown [id number] 2015 Unknown [id number] 2014 Unknown [id number] 2014 Unknown GENERIC [employer]IC [employer]ERCIAL [id number] 2014-Present Indemnity [id number] [id number].3.6 [id number] 1997 Unknown [id number] 2.16.840.1.142528.3.579.2.903 1997 Unknown [id number] 2.16.840.1.698307.3.579.2.900 1997 Unknown [id number] 2.16.840.1.858677.3.579.2.176 1997 Unknown [id number] 2.16.840.1.163335.3.579.2.903 1997 Unknown [id number] 2.16.840.1.279789.3.579.2.903 1997 Unknown [id number] 2.16.840.1.718239.3.579.2.175 1997 Unknown [id number] 2.16.840.1.964097.3.579.2.593 1997 Unknown [id number] 2.16.840.1.736816.3.579.2.593 1997 Unknown [id number] 2.16.840.1.097119.3.579.2.593 1997 Unknown [id number] 2.16.840.1.911524.3.579.2.593 1997 Unknown [id number] 2.16.840.1.449280.3.579.2.593 1997 Unknown [id number] 2.16.840.1.630594.3.579.2.593 1997 Unknown [id number] 2.16.840.1.193955.3.579.2.593 1997 Unknown [id number] 2.16.840.1.501814.3.579.2.593 1997 Unknown [id number] 2.16.840.1.118880.3.579.2.593 1997 Unknown [id number] 2.16.840.1.499549.3.579.2.593 1997 Unknown [id number] 2.16.840.1.688247.3.579.2.593 1997 Unknown [id number] 2.16.840.1.303574.3.579.2.593 1997 Unknown [id number] 2.16.840.1.705488.3.579.2.593 1997 Unknown [id number] 2.16.840.1.514995.3.579.2.593 1997 Unknown [id number] 2.16.840.1.879960.3.579.2.593 1997 Unknown [id number] 2.16.840.1.490472.3.579.2.593 1997 Unknown [id number] 2.16.840.1.219198.3.579.2.593 1997 Unknown [id number] 2.16.840.1.144323.3.579.2.593 1997 Unknown [id number] 2.16.840.1.620239.3.579.2.593 1997 Unknown [id number] 2.16.840.1.658023.3.579.2.593 1997 Unknown [id number] 2.16.840.1.356023.3.579.2.593 1997 Unknown [id number] 2.16.840.1.599062.3.579.2.593 1997 Unknown [id number] 2.16.840.1.449086.3.579.2.593 1997 Unknown [id number] 2.16.840.1.143057.3.579.2.727 1997 Unknown [id number] 2.16.840.1.589583.3.579.2.174 1997 Unknown [id number] 2.16.840.1.135615.3.579.2.174 1997 Unknown [id number] 2.16.840.1.587874.3.579.2.174 1997 Unknown [id number] 2.16.840.1.147464.3.579.2.174 1997 Unknown [id number] 2.16.840.1.544247.3.579.2.174 1997 Unknown [id number] 2.16.840.1.338724.3.579.2.174 1997 Unknown [id number] 2.16.840.1.588240.3.579.2.903 1997 Unknown [id number] 2.16.840.1.628368.3.579.2.1285 1997 Unknown [id number] 2.16.840.1.411621.3.579.2.1285 1997 Unknown [id number] 2.16.840.1.546653.3.579.2.1285 1997 Unknown [id number] 2.16.840.1.124959.3.579.2.1285 1997 Unknown [id number] 2.16.840.1.307814.3.579.2.1285 1997 Unknown [id number] 2.16.840.1.284641.3.579.2.1285 1997 Unknown [id number] 2.16.840.1.486110.3.579.2.1285 1997 Unknown [id number] 2.16.840.1.454589.3.579.2.1285 1997 Unknown [id number] 2.16.840.1.060320.3.579.2.1258 1997 Unknown [id number] 2.16.840.1.895434.3.579.2.1258 1997 Unknown [id number] 2.16.840.1.594106.3.579.2.1258 1997 Unknown [id number] 2.16.840.1.374654.3.579.2.1258 1997 Unknown [id number] 2.16.840.1.411395.3.579.2.1259 1959 Self-pay [id number] 1959 Self-pay 1959 Unknown [id number] 1.2.840.591921.1.13.239.2.7.3.6 48585.315 Social History Date Type Detail Facility Tobacco smoking status MEIS Unknown if ever smoked [facility] Start: 1997 Sex Assigned At Not on file [facility] Start: 04-06-2019 End: 07-29-2023 Tobacco smoking status NHIS Current every day smoker [employer] [facility] History of tobacco use Cigarette Smoker [employer] Start: 04-06-2019 End: 07-29-2023 Cigarettes smoked current (pack per day) - [facility] Start: 04-06-2019 End: 07-29-2023 Alcohol intake Ex-drinker (finding) [facility] Start: 04-06-2019 End: 12-19-2022 History SDOH Alcohol Frequency 1 [facility] [place] Exposure to SARS-CoV-2 (event) Unable to assess [employer] Start: 11-01-2019 End: 07-29-2023 Tobacco use and exposure Never used [facility] Exposure to SARS-CoV-2 (event) Yes [employer] Start: 01-04-2020 End: 06-16-2022 Alcohol intake Current drinker of alcohol (finding) [facility] Start: 12-05-2018 Alcohol Comment occassional [facility] Start: 11-19-2021 End: 06-16-2022 Exposure to SARS-CoV-2 (event) Not sure [facility] Start: 11-29-2021 Tobacco Comment 5cigs/day 2 [employer] [email or web address] Phone: Start: 06-16-2022 Tobacco smoking status NHIS Ex-smoker [employer] History of tobacco use Current smoker [employer] Phone: Start: 06-16-2022 Alcohol Comment occ. Some tonight ADI N [email or web address] Phone: Start: 08-08-2020 Tobacco smoking status Heavy tobacco smoker (finding) [facility] Start: 07-29-2023 Sex Assigned At Female F [facility] Tobacco smoking status NHIS Tobacco smoking consumption unknown [facility] Start: 04-19-2023 [facility] Within the past 12 months we worried whether our food would run out before we got money to buy more. Never True [facility] [employer] Start: 07-29-2023 Tobacco Comment Uses [employer] devices. [facility] [employer] NEGATED: Highlighted rowStart: NINF History of tobacco use Passive smoker [facility] Functional Status Date Assessment Result Facility 12-06-2022 Functional Status N/A [facility] Clinical Notes 12-10-2020 to 07-29-2023 Dawit Carter CMA - 07/29/2023 2:30 PM EDTDana Mcdonough MD - 07/29/2023 2:30 PM EDTMkavita Carter CMA - 07/29/2023 2:30 PM EDTTelephone [...] Have you been seen here at [facility] in a previous ?no Recent ER visits or hospitalizations? No Bring blood sugar log or meter with you today? (Please bring them with you for every visit at [facility]) n/a Traveled outside the country in the [...] was 45 minutes. 24 minutes were direct dxhx-vs-jpyg for counseling and coordination of care during visits itself. An additional 8 minutes or for same day preparation to see the patient. Another 13 minutes were needed to prepare visit report or otherwise complete encounter Thank you for sending this patient. Dana Mcdonough MD Maternal Medicine Professor, [facility] [phone]- Office [phone] Personal Cell Phone Office Note: Type 2 [...] with breakfast. metroNIDAZOLE (FLAGYL) 500 mg tablet mg813-nnbt-npbyk acid ( 19) 29 mg iron- 1 [...] become candidates for treatment. ACOG and the [place] psychiatric association advocate treatment in patients with moderate to severe unresponsive disease. SSRI medications are typically used (except for paroxetine). We reviewed specific medication or medications the patient used. For SSRI medications, we discussed preponderance of data presuming safety. We also discussed some data supporting an increased risk of structural abnormalities. Paroxetine is not recommended. Comstock irritability observed in some pregnancies in which [...] growth disorder. Smoking cessation recommended. Both the [place] and the [facility] have excellent free stop smoking programs that are accessible through [facility] web sites. If desired by patient, [...] the patient's reported primary care provider. Traffic Officer gave T1dm & T2dm dm handout, twin hand out and, genetic handout, and, activity in handout to patient. Patient understood that its good reading material if she has questions. documented in this encounter [facility] 07-24-2023 Miscellaneous Notes Called to schedule Diabetic Ed, patient declined to schedule.she states is seeing another Dr for this and that Dr Asher is aware. documented in this encounter [facility] 07-24-2023 Telephone encounter Note Called to schedule Diabetic Ed, patient declined to schedule.she states is seeing another Dr for this and that Dr Asher is aware. [facility] 07-15-2023 Miscellaneous Notes Summary: MFM Missed Diabetes Education Appointment Called. No answer. Message left regarding missing Diabetes Education appointment; noted was also scheduled to see Gaby CROUCH and Carmen Cheung (Nutrition Education). Requested to call [phone] Option #3 to reschedule. documented in this encounter [employer] 07-15-2023 Telephone encounter Note Summary: MFM Missed Diabetes Education Appointment Called. No answer. Message left regarding missing Diabetes Education appointment; noted was also scheduled to see Gaby CROUCH and Carmen Cheung (Nutrition Education). Requested to call [phone] Option #3 to reschedule. [facility] 12-06-2022 Hospital Discharg e instructions Patient Education [...] services (911 in the [place].). Call the [facility] and human services helpline (211 in the [place] Call or text a suicide hotline to speak with a trained counselor. The following suicide hotlines are available in the [place]: ?3-112-717-TALK ( or 230 in the [place].S.). ?5-127-SEJUNCN ( ). ?Text 687301. This is the Crisis Text Line in the [place]. ? . This is a hotline for Luxembourgish speakers. ? . This is a hotline for TTY users. ?7-507-3-U-YASHIRA ( ). This is a hotline for lesbian, delgadillo, bisexual, transgender, or questioning youth. ?For a list of hotlines in [place], visit suicide.org/hotlines/internation al/fjwclx-mkmgsqs-zzdrppud.html Contact a crisis center or a local [...] to anyone or being with other people. ?Xfsj-sd-opan conversation is best to help them understand [...] physical and a mental health checkup. Take yxwo-drf-egwhbzm and prescription medicines only as told by [...] National Suicide Prevention Lifeline: www.suicidepreventionlifeline.or g Hopeline: www.hopeline.com [place] Foundation for Suicide Prevention: www.afsp.org The Yashira Project (for lesbian, delgadillo, bisexual, transgender, or questioning youth): www.thetrevorproject.org National [place] of Mental Health: www.nimh.nih.gov/health/topics/s uicide-prevention Suicide Prevention Resources: afsp.org/apejbwc-awluyyeppi-ppio urces Contact a health care provider if: [...] provider. Document Revised: 11/15/2021 Document Reviewed: 08/30/2021 [employer] Patient Education 2022 [employer]. Follow Up Care 12/06/2022 13:21:39 With:[employer] [facility] Address:Unknown When:12/09/2022 16:28:40 Comments:Follow safety plan. Return to the emergency department with any worsening symptoms. With:GAYE JOSUE Address: [address] [id number] [facility] (1) When:12/09/2022 16:28:22 Comments:Call the [...] Repeat liver function testing in 1 month. [facility] 12-06-2022 Evaluation + Plan note Extrac rayray from: Title:ED Note Author:Graham Choe DO Date: Situational stress (F43.9: R eaction to severe stress, unspecified) Orders: Automated Diff CBC w/ Auto Diff Comprehensive Metabolic Panel Drug Screen Urine ECG 12 Lead Adult eGFR Ethanol Level U Beta Hcg Qual [facility]07-28-2022 History of Present illness Narrative* Edelmira Jacobs RN - 11/29/2021 2:40 PM EDT Home med list reviewed with patient. [facility] [email or web address] Phone: 1(831) 601-347708-08-2021 History of Present illness Narrative* Perla Cunningham RN - 12/10/2020 8:28 PM EDT Discharge instructions given. Pt sent home with 1 zofran. Aware to oyster picker prescription. All questions answered. documented in this encounterV[facility]ans Health AdministrationVasona Networks Phone: evalqlptzy note* Diagnosis Symptoms of dehydration- Primary Nausea vomiting and diarrhea Nausea with vomiting documented in this encounter [facility] Phone: evaluation note* Diagnosis Threatened miscarriage in early - Primary Threatened , unspecified as to episode of care documented in this encounter [facility] Phone: evalkexpcp note* Diagnosis Depression during in first trimester- Primary Dehydration documented in this encounter [facility] Phone: evaluation note* Diagnosis COVID-19 virus infection- Primary Second trimester documented in this encounter [facility] Phone: evalaawkcu note* Diagnosis Hordeolum externum of right lower eyelid- Primary Hordeolum externum documented in this encounter [facility] [email or web address] Phone: [email or web address] note* Diagnosis Acute midline low back pain without sciatica- Primary documented in this encounter [facility] [email or web address] Phone: evalixjsmn note* Diagnosis Nausea and vomiting, unspecified vomiting type- Primary Intractable headache, unspecified chronicity pattern, unspecified headache type documented in this encounter [facility] [email or web address] Phone: evaluation note* Diagnosis Acute cystitis without hematuria- Primary Acute cystitis Vaginal yeast infection Candidiasis of vulva and vagina documented in this encounter [facility]* Diagnosis Type 2 diabetes mellitus affecting in second trimester, antepartum- Primary Twin , dichorionic/diamniotic, second trimester Bipolar disease during in second trimester ([facility] [facility] Diagnosis Type 2 diabetes mellitus affecting in second trimester, antepartum- Primary Twin , dichorionic/diamniotic, second trimester Obesity affecting in second trimester, unspecified obesity type Bipolar disease during in second trimester ([facility] Post traumatic stress disorder Posttraumatic stress disorder Tobacco smoking affecting in second trimester [facility] Narrative No data available for this section [facility]* Attachments The following attachments cannot be sent through Care Everywhere. * Nausea and Vomiting (Peruvian) * Diarrhea (Peruvian) * Oral Rehydration (Peruvian) [facility] this [facility] Phone: Hospital Discharge instructions* Attachments The following attachments cannot be sent through Care Everywhere. * Miscarriage: Threatened (Peruvian) documented in this [facility] Phone: Hospital Discharge instructions* Attachments The following attachments cannot be sent through Care Everywhere. * Dehydration (Peruvian) documented in this [facility] Phone: Hospital Discharge instructions* Attachments The following attachments cannot be sent through Care Everywhere. * Coronavirus Disease (COVID-19): General Info (Peruvian) documented in this [facility] Phone: Hospital Discharge instructions* Attachments The following attachments cannot be sent through Care Everywhere. * Styes and Chalazia (Peruvian) [facility] [email or web address] Phone: Hospital Discharge instructions* Attachments The following attachments cannot be sent through Care Everywhere. * Back Pain (Peruvian) * Back: Stretches: Exercises (Peruvian) documented in this encounterHOL[facility]OKE MED[facility] CENTERFunguy Fungi Incorporated Work Phone: Hospital Discharge instructions* Attachments The following attachments cannot be sent through Care Everywhere. * Headache (Peruvian) documented in this encounterHOL[facility]OKE [facility] CENTERFunguy [facility] Inc[facility] Work Phone: Hospital Discharge instructions* Attachments The following attachments cannot be sent through Care Everywhere. * Vaginal Yeast Infection (Peruvian) documented in this encounterHOLYOKE MEDICAL CENTERTwined HEALTHInstructionsNot on file documented in this encounterProDunlap Memorial HospitalFineline SystemInstructionsNot on file documented in this encounterProKinamik Data Integrity SystemInstructionsNot on file documented in this encounterProKinamik Data Integrity SystemInstructionsNot on file documented in [facility] [employer] SystemProgress note No data available for this section [facility] Summary Purpose Family History No Family [...] FoundDocuments on File Type Date Recorded Patient Gravel Weigher Expl anation Advance Directives and Living Will Power of Steward/Stewardess Wine Documents on File Type Date Recorded Patient Gravel Weigher Expl anation ACP-Advance Directive ACP-Power of Steward/Stewardess Wine Documents on File Type Date Recorded Patient Gravel Weigher Expl anation Advance Directives and Livin g [...] be sent through Care Everywhere. * Sinusitis (Peruvian) * Sinus Rinse (Peruvian) * Bronchitis (Peruvian) documented in this encounter* Attachments The following attachments cannot be sent through Care Everywhere. * Smoking: Stopping (Peruvian) * Bronchitis (Peruvian) * Coronavirus Disease (COVID-19): General Info (Peruvian) documented in this encounter* Attachments The following attachments cannot be sent through Care Everywhere. * Bronchitis (Peruvian) documented in this encounter Assessments Diagnosis Bronchitis- [...] Specialty Diagnoses / Procedures Referred By Armando t Referred To Contact Maternal and Medicine Diagnoses Twin , dichorionic/diamniotic, second trimester Bipolar disease during in second trimester ([facility]) Procedures US [facility] with or without consult Dana Mcdonough MD [address] [place] [address] [facility] Maternal Med [address] [place] [address] Referral ID Status Reason Start Date Expiration Date V isits Requested Visits Authorized [id number] Pending Review 07/29/2023 07/28/2024 1 1 Additional Source Comments INFORMATION SOURCE (unrecogn ized section and content) DATE CREATED AUTHOR 10/29/2017 [facility] DATE CREATED AUTHOR AUTHOR'S ORGANIZ ATION 11/26/2017 [facility] DATE CREATED AUTHOR AUTHOR'S ORGANIZ ATION 01/04/2020 [facility] DATE CREATED AUTHOR AUTHOR'S ORGANIZ ATION 05/26/2020 [facility] DATE CREATED AUTHOR AUTHOR'S ORGANIZ ATION 08/07/2020 [facility] DATE CREATED AUTHOR AUTHOR'S ORGANIZ ATION 04/08/2021 [facility] DATE CREATED AUTHOR AUTHOR'S ORGANIZ ATION 07/14/2021 [facility] DATE CREATED AUTHOR AUTHOR'S ORGANIZ ATION 04/27/2022 [facility] DATE CREATED AUTHOR AUTHOR'S ORGANIZ ATION 12/07/2022 Maynard Hernando [facility] DATE CREATED AUTHOR AUTHOR'S ORGANIZ ATION 10/10/2023 [facility] DATE CREATED AUTHOR AUTHOR'S ORGANIZ ATION 10/19/2023 [facility] DATE CREATED AUTHOR AUTHOR'S ORGANIZ ATION 10/29/[address] [facility] DATE CREATED AUTHOR AUTHOR'S ORGANIZ ATION 11/03/2023 [facility] DATE CREATED AUTHOR AUTHOR'S ORGANIZ ATION 11/06/2023 [facility] EPIC Reason for Visit (unrecogniz [...] Care Teams (unrecognized sec tion and content) Department Specialist Relationship Specialty Start Date End Date Trentlee Gaye MINING TECHNICIAN - HISTORIC PRESERVATIONIST [address] [place] [address] PCP - General Family Nurse Practitioner 02/10/21 Department Specialist Relationship Specialty Start Date End Date Gaye Josue MINING TECHNICIAN - HISTORIC PRESERVATIONIST [address] [place] [address] PCP - General Family Nurse Practitioner 02/10/21 Department Specialist Relationship Specialty Start Date End Date Liat Gaye MINING TECHNICIAN - HISTORIC PRESERVATIONIST [address] [place] [address] PCP - General Family Nurse Practitioner 02/10/21 Department Specialist Relationship Specialty Start Date End Date Gaye Josue, MINING TECHNICIAN - HISTORIC PRESERVATIONIST [address] [place] [address] PCP - General Family Nurse Practitioner 02/10/21 Department Specialist Relationship Specialty Start Date End Date Jacobo Johnson DO [address] [place] [address] PCP - General Family Medicine 07/29/23 Department Specialist Relationship Specialty Start Date End Date Jacobo Johnson DO [address] [place] [address] PCP - General Family Medicine 07/29/23 FOR [...] BE BASED ON THE PRIMARY CLINICAL RECORDS. [employer] [facility] provides no warranty or guarantee of the accuracy or completeness of information in this document.
[2023-11-18 15:28] VITALS: BP 100/70; PULSE 83
== END 2023-11-18 15:30 | disposition home or self-care (01) ==
LOC: FBCO 07:13 → FBC 14:48
PROVIDERS: PCP Family Medicine; Visit Provider Obstetrics & Gynecology
DX: O30.099 Twin pregnancy, unable to determine number of placenta and number of amniotic sacs, unspecified trimester (principal)
CPT/HCPCS: 59025

== ENCOUNTER 2023-11-25 07:04 | Outpatient (OUT) | payer OTHER, SELFPAY ==
--- OUTSIDE RECORDS SUMMARY | 2023-11-25 07:09 | XMS_ITS | CCD ---
Author Organization [facility] Inform ion Partnership [facility] Care Team Providers Care Charge Gang Weigher Name Role Phone GAYE JOSUE Unavailable Unavailable GAYE JOSUE Unavailable Unavailable Unavailable Unavailable Unavailable Honey, Seboyeta Maryjo Unavailable Unavailable Honey, Seboyeta Maryjo Unavailable Unavailable Unavailable Primary Care Provider UnavailJuanito Rodriges Primary Care Provider JUANITO HERNANDEZ Attending U navailable HUY, MONICATH ELIZAIAChristin Primary Care U navailable Celengjaylen, Vijeth Rathnarajaiah Primary Care Prov ider Radha Carney Unavailable Perla Rm Primary Care Provider [phone] HUY, JAMESJETH RATHNARAJAIAH Primary Care U navailable [...] Referring Unavailable LIAT, GAYE Primary [facility], [facility] - [facility], Gaye Primary Care Provider MISC, DR [...] Provider UnavailJacobo Doyle DO Primary Care Provider LIAT, GAYE Primary Care Unavailable MATTHEW TAFOYA Attending Unavailable DELANY, GAYE Primary Care Unavailable BEA JACOBS Attending Unavailable TRENTANY, GAYE Primary Care Unavailable BEA JACOBS Attending Unavailable JACOBO JOHNSON Primary Care Unavailable HOANG SANTOS Attending Unavailable JACOBO JOHNSON J Referring Unavailable OLEWILER, JACOBO J Primary Care Unavailable DELANY, GAYE Referring Unavailable DELANY, GAYE Primary Care Unavailable GAYE JOSUE M Primary Care Unavailable MARY AGUIAR Attending U Redd Geronimo Attending Unavailab Redd Higginbotham Admitting Unavailab dedra [facility], PHYSICIAN Primary Care Unavailable LOY ASHER Attending Unavailable LOY ASHER Attending Unavailable LOY ASHER Attending Unavailable LOY ASHER Attending Unavailable LOY ASHER Attending Unavailable YOGI, LOY R Referring Unavailable OLEWILER, JACOBO J Primary Care Unavailable DANA MCDONOUGH Attending Unavailable YOGI, OLY R Referring Unavailable OLEWILER, JACOBO J Primary Care Unavailable ROSA ROCHA Attending Unavailable YOGI, LOY R Referring Unavailable OLEWILER, JACOBO J Primary Care Unavailable YOGI, LOY R Referring Unavailable OLEWILER, JACOBO J Primary Care Unavailable TRISH ZIMMERMAN Attending Unavailable TRISH ZIMMERMAN Attending Unavailable YOGI, LOY R Referring Unavailable OLEWILER, JACOBO J Primary Care Unavailable HERMAN URRUTIA Attending Unavailable AMBIKAWILER, JACOBO J Referring Unavailable OLEWILER, JACOBO J Primary Care Unavailable ZAYRA KIMBLE Admitting Unavailable ZAYRA KIMBLE Attending Unavailable RUMALER, JACOBO J Primary Care Unavailable CHRISTELLE SEPULVEDA Consulting Unavailable HARMONY HESS Referring Unavailable OLEWILER, JACOBO J Primary Care Unavailable TRISH ZIMMERMAN Attending Unavailable YOGI, LOY R Referring Unavailable OLEWILER, JACOBO J Primary Care Unavailable YOGI, LOY R Referring Unavailable OLEWILER, JACOBO J Primary Care Unavailable MANJULA VILLAGRAN Attending Unavailable YOGI, LOY R Referring Unavailable JACOBO JOHNSON Primary Care Unavailable Allergies Allergy Classification Reported Allergen(s) Allergy Type Date of Onset Reaction(s) Facility (1 source) No Known Medication Allergies; Translations: [No Known Medication Allergies] Propensity to adverse reactions (disorder) [facility] Repository Medications Current Medications Medication Drug [...] days 10 tablet 0 10/22/2019 10/27/2019 Active zh880-yvtf-gwlam acid ( 19) 29 mg iron- 1 mg tablet,chewable (2 sources) je183-jopi-wrkyz acid ( 19) 29 mg iron- 1 [...] 0 Active take 2 tablets by mo [facility] twice daily as needed clonazePAM (KLONOPIN) 1 [...] mark th every four hours as needed Oeymjtnkmpbsydb-ALXZ-MY (DAYQUIL PO) Don e 1 tablet by [...] tolerance complicating ; childbirth; or the puerperium (10 sources) and type 2 diabetes mellitus; Translations: [...] (1 source) Other mental disorders complicating , third trimester; Translations: [Other mental disorders complicating , third trimester] Onset: 4 Episodic Other complications of (1 source) Placental [...] nutritional; endocrine; and metabolic disorders (1 source) Body mass index (BMI) 38.0-38.9, adult; Translations: [Body mass index (BMI) 38.0-38.9, adult] Onset: 4 Chronic Other nutritional; endocrine; and metabolic disorders (1 [...] conditions (not mental disorders or infectious disease) (10 sources) Encounter for screening for Streptococcus B; [...] Translations: [Tobacco abuse] Chronic Residual codes; unclassified (2 sources) 32 weeks gestation of ; Translations: [32 WEEKS GESTATION OF ] Onset: 2 Episodic Residual codes; unclassified (2 sources) 31 weeks gestation of ; Translations: [31 WEEKS GESTATION OF ] Onset: 2 Episodic Residual codes; unclassified (1 source) 26 weeks [...] WEEKS GESTATION OF ] Onset: 09-12-2021 Episodic Spondylosis; intervertebral disc disorders; other back problems (3 sources) Acute low back pain; Translations: [Acute midline low back pain without sciatica] Onset: 12-22-2022 Episodic Results Test Name Value Interpretation Reference Range Facility Glucose Glucometer (BldC) [M ass/Vol]on 11-03-2023 Glucose [Mass/Vol] 127 mg/dL High 65-99 [facility] Glucose [Mass/Vol] 172 mg/dL High 65-99 [facility] Glucose Glucometer (BldC) [M ass/Vol]on 11-02-2023 Glucose [Mass/Vol] 162 mg/dL High 65-99 [facility] Glucose [Mass/Vol] 160 mg/dL High 65-99 [facility] Glucose [Mass/Vol] 157 mg/dL High 65-99 [facility] Glucose [Mass/Vol] 189 mg/dL High 65- [facility] Glucose [Mass/Vol] 137 mg/dL High 65-99 [facility] VAGINITIS PANEL PCRon 2023 VAGINITIS PANEL [...] clinical presentation to determine patient diagnosis. Normal [facility] Comment on above: Performed By: #### C BCA, CMP, THYR, HA1C, 11927-8 #### [facility] ([id number]) [address] [place] [address], [address] [place] [address] Glucose Glucometer (BldC) [M ass/Vol]on 11-01-2023 Glucose [Mass/Vol] 137 mg/dL High 65-99 [facility] Glucose [Mass/Vol] 138 mg/dL High 65- [facility] Glucose [Mass/Vol] 147 mg/dL High 65-99 [facility] Glucose [Mass/Vol] 172 mg/dL High 65-99 [facility] Glucose [Mass/Vol] 98 mg/dL Normal 65-99 [facility] CBC AND AUTO DIFFon 10-31-19 24 ABSOLUTE BASOPHIL 0.0 X10E9/L Normal 0.0-0.2 [facility] Comment on above: Performed By: #### C BCA, CMP, THYR, HA1C, 74877-3 #### [facility] ([id number]) [address], [address] [place] [address] ABSOLUTE NEUTROPHIL 5.2 X10E9/L Normal 1.5-6.6 [facility] Comment on above: Performed By: #### C BCA, CMP, THYR, HA1C, 50569-7 #### [facility] ([id number]) [address], [address] [place] [address] Basophils/100 WBC (Bld) 0.3 % Normal [facility] Comment on above: Performed By: #### C BCA, CMP, THYR, HA1C, 55073-9 #### [facility] ([id number]) [address], [address] [place] [address] Eosinophils (Bld) [#/Vol] 0.0 10*3/uL Normal 0.0-0.4 [facility] Comment on above: Performed By: #### C BCA, CMP, THYR, HA1C, 57827-1 #### [facility] ([id number]) [address], [address] [place] [address] Eosinophils/100 WBC (Bld) 0.3 % Normal [facility] Comment on above: Performed By: #### C BCA, CMP, THYR, HA1C, 76277-4 #### [facility] ([id number]) [address], [address] [place] [address] Erythrocyte distribution width (RBC) [Ratio] 13.5 % Normal 11.5-15.0 [facility] Comment on above: Performed By: #### C BCA, CMP, THYR, HA1C, 68960-0 #### [facility] ([id number]) [address] [place] [address] Hematocrit (Bld) [Volume fraction] 30.4 % Low 35-47 [facility] Comment on above: Performed By: #### C BCA, CMP, THYR, HA1C, 80854-4 #### [facility] ([id number]) [address] [place] [address] Hemoglobin (Bld) [Mass/Vol] 10.2 g/dL Low 11.7-15.5 [facility] Comment on above: Performed By: #### C BCA, CMP, THYR, HA1C, 18474-9 #### [facility] ([id number]) [address] [place] [address] Lymphocytes (Bld) [#/Vol] 1.5 10*3/uL Normal 1.0-3.5 [facility] Comment on above: Performed By: #### C BCA, CMP, THYR, HA1C, 00720-0 #### [facility] ([id number]) [address] [address] Lymphocytes/100 WBC (Bld) 20.8 % Normal [facility] Comment on above: Performed By: #### C BCA, CMP, THYR, HA1C, 31932-6 #### [facility] ([id number]) [address] [place] [address] MCH (RBC) [Entitic mass] 26.6 pg Low 27-34 [facility] Comment on above: Performed By: #### C BCA, CMP, THYR, HA1C, 41098-4 #### [facility] ([id number]) [address] [address] [place] [address] MCHC (RBC) [Mass/Vol] 33.4 g/dL Normal 32-36 [facility] Comment on above: Performed By: #### C BCA, CMP, THYR, HA1C, 57406-4 #### [facility] ([id number]) [address], [address] [place] [address] MCV (RBC) [Entitic vol] 80 fL Normal 80-100 [facility] Comment on above: Performed By: #### C BCA, CMP, THYR, HA1C, 85022-6 #### [facility] ([id number]) [address], [facility] [address] [place] [address] Monocytes (Bld) [#/Vol] 0.4 10*3/uL Normal 0-0.9 [facility] Comment on above: Performed By: #### C BCA, CMP, THYR, HA1C, 53974-6 #### [facility] ([id number]) [address], [address] [place] [address] Monocytes/100 WBC (Bld) 5.5 % Normal [facility] Comment on above: Performed By: #### C BCA, CMP, THYR, HA1C, 03658-5 #### [facility] ([id number]) [address], [address] [place] [address] Neutrophils/100 WBC (Bld) 73.1 % Normal [facility] Comment on above: Performed By: #### C BCA, CMP, THYR, HA1C, 28139-6 #### [facility] ([id number]) [address], [address] [place] [address] Platelet mean volume (Bld) [Entitic vol] 10.1 fL Normal 7-12 [facility] Comment on above: Performed By: #### C BCA, CMP, THYR, HA1C, 22376-1 #### [facility] ([id number]) [address], [address] [place] [address] Platelets (Bld) [#/Vol] 184 10*3/uL Normal 150-450 [facility] Comment on above: Performed By: #### C BCA, CMP, THYR, HA1C, 69222-2 #### [facility] ([id number]) [address], [address] [place] [address] RBC COUNT 3.83 X10E12/L Normal 3.80-5.20 [facility] Comment on above: Performed By: #### C BCA, CMP, THYR, HA1C, 79741-1 #### [facility] ([id number]) [address], [address] [address] WBC (Bld) [#/Vol] 7.1 10*3/uL Normal 4.0-11.0 [facility] Comment on above: Performed By: #### C BCA, CMP, THYR, HA1C, 85187-5 #### [facility] ([id number]) [address], [address] [place] [address] CHLAMYDIA/GC BY PCRon 2023 CHLAMYDIA/GC BY PCR [...] are dependent on adequate specimen collection. Normal [facility] Comment on above: Performed By: #### C BCA, CMP, THYR, HA1C, 38272-1 #### [facility] ([id number]) [address], [address] [place] [address] COMPREHENSIVE METABOLIC PANE Nick 10-31-2023 Albumin [Mass/Vol] 3.0 g/dL Low 3.2-5.3 [facility] Comment on above: Performed By: #### C BCA, CMP, THYR, HA1C, 04626-3 #### [facility] ([id number]) [address], [address] [place] [address] ALP [Catalytic activity/Vol] 109 U/L Normal 39-130 [facility] Comment on above: Performed By: #### C BCA, CMP, THYR, HA1C, 48058-1 #### [facility] ([id number]) [address], [address] [place] [address] ALT [Catalytic activity/Vol] 13 U/L Normal 0-31 [facility] Comment on above: Performed By: #### C BCA, CMP, THYR, HA1C, 26015-9 #### [facility] ([id number]) [address], [address] [place] [address] Anion gap [Moles/Vol] 10 mmol/L Normal 5-15 [facility] Comment on above: Performed By: #### C BCA, CMP, THYR, HA1C, 39729-3 #### [facility] ([id number]) [address], [address] [place] [address] AST [Catalytic activity/Vol] 19 U/L Normal 0-41 [facility] Comment on above: Performed By: #### C BCA, CMP, THYR, HA1C, 17885-8 #### [facility] ([id number]) [address], [address] [place] [address] Bilirubin [Mass/Vol] 0.4 mg/dL Normal 0.3-1.2 [facility] Comment on above: Performed By: #### C BCA, CMP, THYR, HA1C, 98956-0 #### [facility] ([id number]) [address], [address] [place] [address] Calcium [Mass/Vol] 8.4 mg/dL Low 8.5-10.5 [facility] Comment on above: Performed By: #### C BCA, CMP, THYR, HA1C, 21174-8 #### [facility] ([id number]) [address], [address] [place] [address] Chloride [Moles/Vol] 106 mmol/L Normal 98-109 [facility] Comment on above: Performed By: #### C BCA, CMP, THYR, HA1C, 02648-2 #### [facility] ([id number]) [address], [address] [place] [address] CO2 [Moles/Vol] 20 mmol/L Low 22-32 [facility] Comment on above: Performed By: #### C BCA, CMP, THYR, HA1C, 16816-3 #### [facility] ([id number]) [address] [address] [place] [address] Creatinine [Mass/Vol] 0.53 mg/dL Normal 0.40-1.00 [facility] Comment on above: Result Comment: METH OD TRACEABLE TO IDMS STANDARD Performed By: #### C BCA, CMP, THYR, HA1C, 80548-8 #### [facility] ([id number]) [address] [place] [address] eGFR (CKD-EPI) NON-RACE DEPENDENT >90 Normal >59 [facility] Comment on above: Result Comment: Reported eGFR is based on the CKD-EPI 2020 equation that does not use a race coefficient. Performed By: #### C BCA, CMP, THYR, HA1C, 60051-4 #### [facility] ([id number]) [address] [address] [place] [address] Glucose [Mass/Vol] 134 mg/dL High 65-99 [facility] Comment on above: Performed By: #### C BCA, CMP, THYR, HA1C, 58858-8 #### [facility] ([id number]) [address] [address] [place] [address] Potassium [Moles/Vol] 3.7 mmol/L Normal 3.5-5.0 [facility] Comment on above: Performed By: #### C BCA, CMP, THYR, HA1C, 80594-6 #### [facility] ([id number]) [address], [address] [place] [address] Protein [Mass/Vol] 5.9 g/dL Low 6.0-8.0 [facility] Comment on above: Performed By: #### C BCA, CMP, THYR, HA1C, 42467-0 #### [facility] ([id number]) [address], [address] [place] [address] Sodium [Moles/Vol] 136 mmol/L Normal 134-146 [facility] Comment on above: Performed By: #### C BCA, CMP, THYR, HA1C, 03883-9 #### [facility] ([id number]) [address], [address] [place] [address] Urea nitrogen [Mass/Vol] 7 mg/dL Normal 5-23 [facility] Comment on above: Performed By: #### C BCA, CMP, THYR, HA1C, 19081-4 #### [facility] ([id number]) [address], [address] [place] [address] DRUG SCREEN, URINEon 024 AMPHETAMINE/METHAMP Negative Normal NEG [facility] Comment on above: Result Comment: AMPH /METH screening cut off = 1000 ng/mL Performed By: #### D STAPLES #### [facility] ([id number]) [address], [address] [place] [address] BARBITURATES Negative Normal NEG [facility] Comment on above: Result Comment: Vandana iturates screening cut off value = 200 ng/mL Performed By: #### D STAPLES #### [facility] ([id number]) [address], [address] [place] [address] BENZODIAZEPINES Positive Abnormal NEG [facility] Comment on above: Result Comment: Conf irmation available upon request. Benzodiazepines screening cut off value = 200 ng/mL Performed By: #### D STAPLES #### [facility] ([id number]) [address], [address] [place] [address] CANNABINOIDS Positive Abnormal NEG [facility] Comment on above: Result Comment: Conf irmation available upon request. Cannabinoids/THC screening cut off value = 50 ng/mL Performed By: #### D STAPLES #### [facility] ([id number]) [address], [address] [place] [address] COCAINE METABOLITE Negative Normal NEG [facility] Comment on above: Result Comment: Coca ine screening cut off value = 300 ng/mL Performed By: #### D STAPLES #### [facility] ([id number]) [address], [address] [place] [address] ECSTASY Negative Normal NEG [facility] Comment on above: Result Comment: Ecst asy screening cut off value = 500 ng/mL This report is intended for use in clinical monitoring or management of patients. Performed By: #### D STAPLES #### [facility] ([id number]) [address], [address] [place] [address] METHADONE Negative Normal NEG [facility] Comment on above: Result Comment: Meth adone screening cut off value = 300 ng/mL. Performed By: #### D STAPLES #### [facility] ([id number]) [address], [address] [place] [address] OPIATES Negative Normal NEG [facility] Comment on above: Result Comment: Opia satya screening cut off value = 300 ng/mL NOTE: This test is used for the detection of codeine, hydrocodone (>1000 ng/mL), morphine and hydromorphone (>900 ng/mL) in urine. Performed By: #### D STAPLES #### [facility] ([id number]) [address], [address] [place] [address] OXYCODONE Negative Normal NEG [facility] Comment on above: Result Comment: Oxyc odone screening cut off value = 300 ng/mL NOTE: This test is used for the detection of oxycodone and oxymorphone in urine. Performed By: #### D STAPLES #### [facility] ([id number]) [address], [address] [place] [address] PHENCYCLIDINE Negative Normal NEG [facility] Comment on above: Result Comment: Phen cyclidine screening cut off value = 25 ng/mL Performed By: #### D STAPLES #### [facility] ([id number]) [address], [address] [address] Glucose Glucometer (BldC) [M ass/Vol]on 10-31-2023 Glucose [Mass/Vol] 130 mg/dL High 65-99 [facility] HGB A1C (GLYCO-HGB)on 2023 Glucose [Mass/Vol] 148 mg/dL Normal [facility] Comment on above: Performed By: #### C BCA, CMP, THYR, HA1C, 04672-2 #### [facility] ([id number]) [address], [address] [address] HbA1c (Bld) [Mass fraction] 6.8 % High 4.4-5.6 [facility] Comment on above: Result Comment: NOTE ADA Guidelines Result HgbA1c Normal : less than 5.7 % Prediabetes : 5.7 % to 6.4 % Diabetes : > 6.4 % Use with caution in patients with abnormal hemoglobin variants as the half-life of red blood cells and in vivo glycation rates are affected. Performed By: #### C BCA, CMP, THYR, HA1C, 16745-7 #### [facility] ([id number]) [address], [address] [place] [address] STREP B PCR VAG/RECTon 10-30 S. agalactiae Org specific cx Ql (Vag+Rectum) Negative Normal NEG [facility] Comment on above: Performed By: #### 7 2607-5 #### [facility] ([id number]) [address] [facility], [address] [place] [address] T. pallidum IgG+IgM IA Ql (S )on 10-31-2023 Syphilis Total <0.2 Normal 0.0-0.8 [facility] Comment on above: Result Comment: NON REACTIVE No serologic evidence of infection to Treponema pallidum (syphilis). Repeat testing may be considered in patients with suspected acute or primary syphilis in 2 to 4 weeks. Performed By: #### C BCA, CMP, THYR, HA1C, 33652-8 #### [facility] ([id number]) [address] [facility], [address] [place] [address] THYROID PROFILEon 10-31-2023 Free T4 [Mass/Vol] 0.75 ng/dL Normal 0.61-1.60 [facility] Comment on above: Performed By: #### C BCA, CMP, THYR, HA1C, 43620-3 #### [facility] ([id number]) [address] [facility], [address] [place] [address] TSH 2.80 uIU/mL Normal 0.49-4.67 [facility] Comment on above: Performed By: #### C BCA, CMP, THYR, HA1C, 32377-8 #### [facility] ([id number]) [address] [facility], [address] [place] [address] URINALYSISon 10-31-2023 Bilirubin Ql (U) Negative Normal NEG [facility] Comment on above: Performed By: #### U A #### [facility] ([id number]) [address] [facility], [address] [place] [address] BLOOD/HGB Negative Normal NEG [facility] Comment on above: Performed By: #### U A #### [facility] ([id number]) [address], [address] [place] [address] Color (U) YELLOW Normal YELLOW [facility] Comment on above: Performed By: #### U A #### [facility] ([id number]) [address] [place] [address] Glucose Ql (U) 50 mg/dL Abnormal NEG [facility] Comment on above: Performed By: #### U A #### [facility] ([id number]) [address] [place] [address] Ketones Ql (U) 10 mg/dL Abnormal NEG [facility] Comment on above: Performed By: #### U A #### [facility] ([id number]) [address], [address] [place] [address] Leukocyte esterase Test strip Ql (U) Large Abnormal NEG [facility] Comment on above: Performed By: #### U A #### [facility] ([id number]) [address] [place] [address] MUCOUS PRESENT Abnormal NONE [facility] Comment on above: Performed By: #### U A #### [facility] ([id number]) [address], [address] [place] [address] Nitrite Ql (U) Negative Normal NEG [facility] Comment on above: Performed By: #### U A #### [facility] ([id number]) [address] [place] [address] pH (U) 6.5 [pH] Normal 5.0-8.5 [facility] Comment on above: Performed By: #### U A #### [facility] ([id number]) [address] [place] [address] Protein Ql (U) 70 mg/dL Abnormal NEG [facility] Comment on above: Performed By: #### U A #### [facility] ([id number]) [address] [address] R.B.CELLS 2 /hpf Normal 0-5 [facility] Comment on above: Performed By: #### U A #### [facility] ([id number]) [address] [place] [address] Specific gravity (U) [Rel density] 1.039 High 1.003-1.035 [facility] Comment on above: Performed By: #### U A #### [facility] ([id number]) [address] [place] [address] SQUAMOUS EPITHELIUM 18 /hpf High 0-5 [facility] Comment on above: Performed By: #### U A #### [facility] ([id number]) [address] [place] [address] TURBIDITY HAZY Abnormal CLEAR [facility] Comment on above: Performed By: #### U A #### [facility] ([id number]) [address] [place] [address] Urobilinogen Qn (U) 4 {Sariah'U}/dL High <1.1 [facility] Comment on above: Performed By: #### U A #### [facility] ([id number]) 81 [place] [id number] W.B.CELLS 36 /hpf High 0-5 [facility] Comment on above: Performed By: #### U A #### [facility] ([id number]) [address] [place] [id number] URINE CULTUREon 10-31-2023 Bacteria identified Cx Nom (U) SPECIMEN NOTES URINE RECEIVED WITHOUT PRESERVATIVE CULTURE RESULTS 10-50,000 ORGANISMS/mL NORMAL UROGENITAL LEANA Normal [facility] Comment on above: Performed By: #### C BCA, CMP, THYR, HA, 29092-0 #### [facility] ([id number]) [address] [place] [address], [address] [place] [address] VAGINITIS PANEL PCRon 2023 VAGINITIS PANEL PCR [...] clinical presentation to determine patient diagnosis. Normal [facility] Comment on above: Performed By: #### C BCA, CMP, THYR, HA, 83756-9 #### [facility] ([id number]) [address], [address] [place] [address] ED Prov Noteon 10-13-2023 ED Prov Note ED PROVIDER NOTE [facility] NAME: Riri Dempsey AGE: 28 y.o. : 1995 VISIT DATE: 10/13/2023 CSN: [id number] PCP: Gaye Josue, [employer] EM[employer]OY[employer] Chief Complaint Patient presents with Leg Pain [...] minutes she had diffuse abdominal tightness like Agra Cochran contractions she said. 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 They recommended that she come to emergency department. Her local [place] does not have FINAL [employer] PA[employer] services so she came here. She typically gets her OB care at [facility] by Dr. Loy Asher. Additionally she [...] Performed By: #### 4 6625 #### LAB [address] [place] [address] Diego Hamilton M.D. [id number] BILIRUBIN, URINE Positive Abnormal Negative [facility] [...] pyridium. Performed By: #### 4 6625 #### [place] [address] Diego Hamilton M.D. [id number] BLOOD, URINE Negative Normal Negative [facility] [...] examination. Performed By: #### 4 6625 #### [place] [address] Diego Hamilton M.D. [id number] Clarity (U) Clear Normal Clear [facility] [...] Performed By: #### 4 6625 #### [place] [address] Diego Hamilton M.D. [id number] Color (U) Kay Abnormal Colorless, Yellow [facility] [...] Performed By: #### 4 6625 #### [place] [address] Diego Hamilton M.D. [id number] Glucose Ql (U) Negative Normal [facility] Comment on above: Order Comment: Micro scopic examination is performed on all urinalysis samples and only positive findings are reported. The test for blood on the chemical analytic portion of urinalysis may also be positive due to hemoglobinuria and myoglobinuria and if red blood cells are present they are quantified by microscopic examination. Performed By: #### 4 6625 #### [place] [address] Diego Hamilton M.D. [id number] Ketones Ql (U) >=80 Abnormal Negative [facility] [...] Performed By: #### 4 6625 #### [place] [address] Diego Hamilton M.D. [id number] Leukocyte esterase Test strip Ql (U) Small [...] Performed By: #### 4 6625 #### [place] [address] Diego Hamilton M.D. [id number] NITRITE, URINE Negative Normal [facility] Comment on above: Order Comment: Micro scopic examination is performed on all urinalysis samples and only positive findings are reported. The test for blood on the chemical analytic portion of urinalysis may also be positive due to hemoglobinuria and myoglobinuria and if red blood cells are present they are quantified by microscopic examination. Performed By: #### 4 6625 #### [place] [address] Diego Hamilton M.D. [id number] pH (U) 6.5 [pH] Normal 5.0-7.0 [facility] [...] examination. Performed By: #### 4 6625 #### [place] [address] Diego Hamilton M.D. [id number] Protein (U) [Mass/Vol] 30 mg/dL Abnormal Negative [facility] Comment on above: Order Comment: [...] compounds. Performed By: #### 4 6625 #### [place] [address] Diego Hamilton M.D. [id number] RBC LM.HPF (Urine sed) [#/Area] 2 /[HPF] [...] examination. Performed By: #### 4 6625 #### [place] [address] Diego Hamilton M.D. [id number] Specific gravity (U) [Rel density] >= High [...] Performed By: #### 4 6625 #### SH [address] [address] Diego Hamilton M.D. [id number] SQUAMOUS EPITHELIAL 7 /hpf High 0-4 [facility] Comment on above: Order Comment: Micro scopic examination is performed on all urinalysis samples and only positive findings are reported. The test for blood on the chemical analytic portion of urinalysis may also be positive due to hemoglobinuria and myoglobinuria and if red blood cells are present they are quantified by microscopic examination. Performed By: #### 4 6625 #### SH [address] [address] Diego Hamilton M.D. [id number] UROBILINOGEN, URINE <2.0 Normal <2.0 [facility] Comment on above: Order Comment: Micro scopic examination is performed on all urinalysis samples and only positive findings are reported. The test for blood on the chemical analytic portion of urinalysis may also be positive due to hemoglobinuria and myoglobinuria and if red blood cells are present they are quantified by microscopic examination. Performed By: #### 4 6625 #### [address] [address] Diego Hamilton M.D. [id number] WBC LM.HPF (Urine sed) [#/Area] 45 /[HPF] [...] examination. Performed By: #### 4 6625 #### [address] [address] Diego Hamilton M.D. [id number] URINE AEROBIC CULTUREon 10-03 URINE AEROBIC CULTURE URINE CULTURE No Growth (<1,000 CFU/mL) Normal [facility] Comment on above: Performed By: #### 4 4053 #### [facility] [address] [place] [address] Hilton Fox M.D. [id number] Basic Metabolic Profon 10-08 Anion gap [Moles/Vol] 18 mmol/L High 9-17 [facility] Comment on above: Performed By: #### C DP, BMP #### [facility] [address] [place] [address] Machine [employer] Machinery Mechanic: Zayra Chapman MD BUN/CRE Ratio 18 Normal 9- [facility] Comment on above: Performed By: #### C DP, BMP #### [facility] [address] [place] [address] [employer] Machinery Mechanic: Zayra Chapman MD Calcium [Mass/Vol] 8.7 mg/dL Normal 8.6-10.4 [facility] Comment on above: Performed By: #### C DP, BMP #### [facility] [address] [place] [address] [employer] Machinery Mechanic: Zayra Chapman MD Chloride [Moles/Vol] 103 mmol/L Normal 98-107 [facility] Comment on above: Performed By: #### C DP, BMP #### [facility] [address] [place] [address] [employer] Machinery Mechanic: Zayra Chapman MD CO2 [Moles/Vol] 15 mmol/L Low 20-31 [facility] Comment on above: Performed By: #### C DP, BMP #### [facility] [address] [place], [place] [phone] [employer] Machinery Mechanic: Zayra Chapman MD Creatinine [Mass/Vol] 0.4 mg/dL Low 0.5-0.9 [facility] Comment on above: Performed By: #### C DP, BMP #### [facility] [address] [place], [place] [id number] [employer] Machinery Mechanic: Zayra Chapman MD GFR/1.73 sq M.predicted among non-blacks MDRD (S/P/Bld) [Vol rate/Area] mL/min/{1.73_m2} Normal >60 [facility] Comment on above: Result Comment: These results [...] Performed By: #### C DP, BMP #### [facility] [address] [place], [place] [id number] [employer] Mach[employer] Mechanic: Zayra Chapman MD Glucose [Mass/Vol] 143 mg/dL High 70-99 [facility] Comment on above: Performed By: #### C DP, BMP #### [facility] [address] [place], [place] [phone] [employer] Mach[employer] Mechanic: Zayra Chapman MD Potassium [Moles/Vol] 3.6 mmol/L Low 3.7-5.3 [facility] Comment on above: Performed By: #### C DP, BMP #### [facility] [address] [place], [place] [phone] [employer] Machinery Mechanic: Zayra Chapman MD Sodium [Moles/Vol] 136 mmol/L Normal 135-144 [facility] Comment on above: Performed By: #### C DP, BMP #### [facility] [address] [place], [place] [phone] [employer] Mach[employer] Mechanic: Zayra Chapman MD Urea nitrogen [Mass/Vol] 7 mg/dL Normal 6-20 [facility] Comment on above: Performed By: #### C DP, BMP #### [facility] [address] [place] [address] [employer] Mach[employer] Mechanic: Zayra Chapman MD CBC with Diffon 10-09-2023 Abs. Basophil 0.04 k/uL Normal 0.00-0.20 [facility] Comment on above: Performed By: #### C DP, BMP #### [facility] [address] [place] [address] [employer] Mach[employer] Mechanic: Zayra Chapman MD Abs.Imm.Granulocyte 0.03 k/uL Normal 0.00-0.30 [facility] Comment on above: Performed By: #### C DP, BMP #### [facility] [address] [place] [address] [employer] Machinery Mechanic: Zayra Chapman MD Abs.Neutrophil (Seg) 6.85 k/uL Normal 2.5-7.0 [facility] Comment on above: Performed By: #### C DP, BMP #### [facility] [address] [place] [address] [employer] Machinery Mechanic: Zayra Chapman MD Basophils/100 WBC (Bld) 0 % Normal 0-2 [facility] Comment on above: Performed By: #### C DP, BMP #### [facility] [address] [place] [id number] Machine [employer] Machinery Mechanic: Zayra Chapman MD Eosinophils (Bld) [#/Vol] 0.08 10*3/uL Normal 0.00-0.40 [facility] Comment on above: Performed By: #### C DP, BMP #### [facility] [address] [place] [id number] [employer] Mach[employer] Mechanic: Zayra Chapman MD Eosinophils/100 WBC (Bld) 1 % Normal 0-5 [facility] Comment on above: Performed By: #### C DP, BMP #### [facility] [address] [place] [address] [employer] Machinery Mechanic: Zayra Chapman MD Erythrocyte distribution width (RBC) [Ratio] 13.1 % Normal 12.1-15.2 [facility] Comment on above: Performed By: #### C DP, BMP #### [facility] [address] [place] [address] [employer] Or Machinery Mechanic: Zayra Chapman MD Hematocrit (Bld) [Volume fraction] 31.5 % Low 36.0-46.0 [facility] Comment on above: Performed By: #### C DP, BMP #### [facility] [address] [place] [address] Machine [employer] Machinery Mechanic: Zayra Chapman MD Hemoglobin (Bld) [Mass/Vol] 10.3 g/dL Low 12.0-16.0 [facility] Comment on above: Performed By: #### C DP, BMP #### [facility] [address] [place] [address] Machine [employer] Machinery Mechanic: Zayra Chapman MD Immature granulocytes/100 WBC (Bld) 0 % Normal 0-5 [facility] Comment on above: Performed By: #### C DP, BMP #### [facility] [address] [place] [address] Machine [employer] Machinery Mechanic: Zayra Chapman MD Lymphocytes (Bld) [#/Vol] 1.83 10*3/uL Normal 1.00-4.80 [facility] Comment on above: Performed By: #### C DP, BMP #### [facility] [address] [place] [address] [employer] Machinery Mechanic: Zayra Chapman MD Lymphocytes/100 WBC (Bld) 20 % Normal 15-40 [facility] Comment on above: Performed By: #### C DP, BMP #### [facility] [address] [place] [address] [employer] Machinery Mechanic: Zayra Chapman MD MCH (RBC) [Entitic mass] 27.4 pg Normal 26.0-34.0 [facility] Comment on above: Performed By: #### C DP, BMP #### [facility] [address] [place] [address] Machine Or Machinery Mechanic: Zayra Chapman MD MCHC (RBC) [Mass/Vol] 32.7 g/dL Normal 31.0-37.0 [facility] Comment on above: Performed By: #### C DP, BMP #### [facility] [address] [place] [address] [employer] Machinery Mechanic: Zayra Chapman MD MCV (RBC) [Entitic vol] 83.8 fL Normal 80.0-100.0 [facility] Comment on above: Performed By: #### C DP, BMP #### [facility] [address] [place] [address] Machine Or Machinery Mechanic: Zayra Chapman MD Monocytes (Bld) [#/Vol] 0.50 10*3/uL Normal 0.00-1.00 [facility] Comment on above: Performed By: #### C DP, BMP #### [facility] [address] [place] [address] Machine [employer] Machinery Mechanic: Zayra Chapman MD Monocytes/100 WBC (Bld) 5 % Normal 4-8 [facility] Comment on above: Performed By: #### C DP, BMP #### [facility] [address] [place] [address] [employer] Machinery Mechanic: Zayra Chapman MD Neutrophil (Seg) 74 % Normal 47-75 [facility] Comment on above: Performed By: #### C DP, BMP #### [facility] [address] [place] [address] [employer] Machinery Mechanic: Zayra Chapman MD Platelet mean volume (Bld) [Entitic vol] 11.3 fL Normal 6.0-12.0 [facility] Comment on above: Performed By: #### C DP, BMP #### [facility] [address] [place] [address] [phone] Machine [employer] Machinery Mechanic: Zayra Chapman MD Platelets (Bld) [#/Vol] 201 10*3/uL Normal 140-450 [facility] Comment on above: Performed By: #### C DP, BMP #### [facility] [address] [place] [address] (194) Machine Or Machinery Mechanic: Zayra Chapman MD RBC (Bld) [#/Vol] 3.76 10*6/uL Low 4.00-5.20 [facility] Comment on above: Performed By: #### C DP, BMP #### [facility] [address] [place] [address] Machine Or Machinery Mechanic: Zayra Chapman MD WBC (Bld) [#/Vol] 9.3 10*3/uL Normal 3.5-11.0 [facility] Comment on above: Performed By: #### C DP, BMP #### [facility] [address] [place] [address] Machine [employer] Machinery Mechanic: Zayra Chapman MD Cult,Urineon 08-20-2023 Cult,Urine Specimen Description .CLEAN CATCH URINE Culture NO SIGNIFICANT GROWTH Report Status FINAL 08/20/2023 Normal [facility] Comment on above: Performed By: #### U SAMIRAO, CG, UA #### [facility] [address] [place] [address] Machine Or Machinery Mechanic: Zayra Chapman MD Ultrasound - Officeon 2023 Radiology Study observation (narrative) [facility] HIV 1&2 AB/AG Screen (P24 AG )on 06-20-2023 HIV 1&2 AB/AG Negative [facility] Hemoglobin A1con 06-20-2023 HbA1c (Bld) [Mass fraction] 7.2 % Abnormal 4.0 - 6.0 % [facility] Interpretation and review of laboratory results Abnormal [facility] Hepatitis B surface antigeno n 06-20-2023 Hepatitis B Surface Antigen Negative [facility] No Panel Informationon 06-20 [facility] Rubella IGG immune statuson 06-20-2023 Rubella immune IgG immune [facility] Syphilis Total(Unknown Syphi lis Status)on 06-20-2023 Syphilis Non-Reactive [facility] Type and screenon 06-20-2023 Abo/Rh(D) Positive [facility] Ultrasound - Officeon 2023 [facility] CBC with Diffon 02-13-2023 Abs. Basophil 0.01 k/uL Normal 0.00-0.20 [facility] Comment on above: Performed By: #### L IPR, T4, GLYHGB, T3 #### [address] [id number] Machine [employer] Machinery Mechanic: Antoine Wilson MD #### CP, TSH, CDP, ZFAST #### [facility] [address] [place] [address] Machine Or Machinery Mechanic: Zayra Chapman MD Abs.Imm.Granulocyte 0.02 k/uL Normal 0.00-0.30 [facility] Comment on above: Performed By: #### L IPR, T4, GLYHGB, T3 #### [address] [id number] Machine [employer] Machinery Mechanic: Antoine Wilson MD #### CP, TSH, CDP, ZFAST #### [facility] [address] [place] [address] Machine Or Machinery Mechanic: Zayra Chapman MD Abs.Neutrophil (Seg) 4.27 k/uL Normal 2.5-7.0 [facility] Comment on above: Performed By: #### L IPR, T4, GLYHGB, T3 #### [address] [phone] Machine [employer] Machinery Mechanic: Antoine Wilson MD #### CP, TSH, CDP, ZFAST #### [facility] [address] [place], [place] [phone] Machine Or Machinery Mechanic: Zayra Chapman MD Basophils/100 WBC (Bld) 0 % Normal 0-2 M [facility] Comment on above: Performed By: #### L IPR, T4, GLYHGB, T3 #### [address] [id number] [employer] Machinery Mechanic: Antoine Wilson MD #### CP, TSH, CDP, ZFAST #### [facility] [address] [place] [phone] Machine [employer] Machinery Mechanic: Zayra Chapman MD Eosinophils (Bld) [#/Vol] 0.07 10*3/uL Normal 0.00-0.40 [facility] Comment on above: Performed By: #### L IPR, T4, GLYHGB, T3 #### [place] [id number] Machine [employer] Machinery Mechanic: Antoine Wilson MD #### CP, TSH, CDP, ZFAST #### [facility] [address] [place] [phone] Machine [employer] Machinery Mechanic: Zayra Chapman MD Eosinophils/100 WBC (Bld) 1 % Normal 0-5 [facility] Comment on above: Performed By: #### L IPR, T4, GLYHGB, T3 #### [place] [id number] [employer] Machinery Mechanic: Antoine Wilson MD #### CP, TSH, CDP, ZFAST #### [facility] [address] [place] [phone] Machine Or Machinery Mechanic: Zayra Chapman MD Erythrocyte distribution width (RBC) [Ratio] 13.2 % Normal 12.1-15.2 [facility] Comment on above: Performed By: #### L IPR, T4, GLYHGB, T3 #### [place] [id number] Machine [employer] Machinery Mechanic: Antoine Wilson MD #### CP, TSH, CDP, ZFAST #### [facility] [address] [place], [place] [phone] [employer] Or Machinery Mechanic: Zayra Chapman MD Hematocrit (Bld) [Volume fraction] 41.9 % Normal 36.0-46.0 [facility] Comment on above: Performed By: #### L IPR, T4, GLYHGB, T3 #### [facility] [address] [place] [address] [phone] Machine [employer] Machinery Mechanic: Antoine Wilson MD #### CP, TSH, CDP, ZFAST #### [facility] [address] [place], [place] [phone] Machine Or Machinery Mechanic: Zayra Chapman MD Hemoglobin (Bld) [Mass/Vol] 13.5 g/dL Normal 12.0-16.0 [facility] Comment on above: Performed By: #### L IPR, T4, GLYHGB, T3 #### [address] [id number] Machine [employer] Machinery Mechanic: Antoine Wilson MD #### CP, TSH, CDP, ZFAST #### [facility] [address] [place], [place] [phone] Machine Or Machinery Mechanic: Zayra Chapman MD Immature granulocytes/100 WBC (Bld) 0 % Normal 0-5 [facility] Comment on above: Performed By: #### L IPR, T4, GLYHGB, T3 #### [facility] [address] [place] [address] [phone] Machine [employer] Machinery Mechanic: Antoine Wilson MD #### CP, TSH, CDP, ZFAST #### [facility] [address] [place], [place] [phone] Machine Or Machinery Mechanic: Zayra Chapman MD Lymphocytes (Bld) [#/Vol] 1.14 10*3/uL Normal 1.00-4.80 [facility] Comment on above: Performed By: #### L IPR, T4, GLYHGB, T3 #### [place] [address] [place], [place] [phone] Machine Or Machinery Mechanic: Antoine Wilson MD #### CP, TSH, CDP, ZFAST #### [facility] [address] [place], [place] [phone] Machine Or Machinery Mechanic: Zayra Chapman MD Lymphocytes/100 WBC (Bld) 20 % Normal 15-40 [facility] Comment on above: Performed By: #### L IPR, T4, GLYHGB, T3 #### [address] [id number] Machine [employer] Machinery Mechanic: Antoine Wilson MD #### CP, TSH, CDP, ZFAST #### [facility] [address] [place] [phone] Machine Or Machinery Mechanic: Zayra Chapman MD MCH (RBC) [Entitic mass] 26.6 pg Normal 26.0-34.0 [facility] Comment on above: Performed By: #### L IPR, T4, GLYHGB, T3 #### [address] [id number] Machine [employer] Machinery Mechanic: Antoine Wilson MD #### CP, TSH, CDP, ZFAST #### [facility] [address] [place] [phone] Machine Or Machinery Mechanic: Zayra Chapman MD MCHC (RBC) [Mass/Vol] 32.2 g/dL Normal 31.0-37.0 [facility] Comment on above: Performed By: #### L IPR, T4, GLYHGB, T3 #### [address] [phone] Machine [employer] Machinery Mechanic: Antoine Wilson MD #### CP, TSH, CDP, ZFAST #### [facility] [address] [place] [address] Machine Or Machinery Mechanic: Zayra Chapman MD MCV (RBC) [Entitic vol] 82.6 fL Normal 80.0-100.0 [facility] Comment on above: Performed By: #### L IPR, T4, GLYHGB, T3 #### [address] [id number] Machine Or Machinery Mechanic: Antoine Wilson MD #### CP, TSH, CDP, ZFAST #### [facility] [address] [place], [place] [id number] Machine Or Machinery Mechanic: Zayra Chapman MD Monocytes (Bld) [#/Vol] 0.30 10*3/uL Normal 0.00-1.00 [facility] Comment on above: Performed By: #### L IPR, T4, GLYHGB, T3 #### [address] [phone] Machine Or Machinery Mechanic: Antoine Wilson MD #### CP, TSH, CDP, ZFAST #### [facility] [address] [place], [place] [phone] Machine Or Machinery Mechanic: Zayra Chapman MD Monocytes/100 WBC (Bld) 5 % Normal 4-8 [facility] Comment on above: Performed By: #### L IPR, T4, GLYHGB, T3 #### [address] [id number] Machine Or Machinery Mechanic: Antoine Wilson MD #### CP, TSH, CDP, ZFAST #### [facility] [address] [place], [place] [phone] Machine Or Machinery Mechanic: Zayra Chapman MD Neutrophil (Seg) 74 % Normal 47-75 [facility] Comment on above: Performed By: #### L IPR, T4, GLYHGB, T3 #### [address] [address] Machine Or Machinery Mechanic: Antoine Wilson MD #### CP, TSH, CDP, ZFAST #### [facility] [address] [place], [place] [phone] Machine Or Machinery Mechanic: Zayra Chapman MD Platelet mean volume (Bld) [Entitic vol] 11.0 fL Normal 6.0-12.0 [facility] Comment on above: Performed By: #### L IPR, T4, GLYHGB, T3 #### [address] [id number] Machine [employer] Machinery Mechanic: Antoine Wilson MD #### CP, TSH, CDP, ZFAST #### [facility] [address] [place] [address] Machine Or Machinery Mechanic: Zayra Chapman MD Platelets (Bld) [#/Vol] 206 10*3/uL Normal 140-450 [facility] Comment on above: Performed By: #### L IPR, T4, GLYHGB, T3 #### [address] [id number] Machine Or Machinery Mechanic: Antoine Wilson MD #### CP, TSH, CDP, ZFAST #### [facility] [address] [place] [phone] Machine Or Machinery Mechanic: Zayra Chapman MD RBC (Bld) [#/Vol] 5.07 10*6/uL Normal 4.00-5.20 [facility] Comment on above: Performed By: #### L IPR, T4, GLYHGB, T3 #### [address] [address] Machine Or Machinery Mechanic: Antoine Wilson MD #### CP, TSH, CDP, ZFAST #### [facility] [address] [place] [phone] Machine Or Machinery Mechanic: Zayra Chapman MD WBC (Bld) [#/Vol] 5.8 10*3/uL Normal 3.5-11.0 [facility] Comment on above: Performed By: #### L IPR, T4, GLYHGB, T3 #### [place] [address] [place] [address] Machine Or Machinery Mechanic: Antoine Wilson MD #### CP, TSH, CDP, ZFAST #### [facility] [address] [place] [address] Machine Or Machinery Mechanic: Zayra Chapman MD Comp Metabolic Profon 2022 Albumin [Mass/Vol] 4.3 g/dL Normal 3.5-5.2 [facility] Comment on above: Performed By: #### L IPR, T4, GLYHGB, T3 #### [facility] [address] [place] [address] Machine Or Machinery Mechanic: Antoine Wilson MD #### CP, TSH, CDP, ZFAST #### [facility] [address] [place], [place] [phone] Machine Or Machinery Mechanic: Zayra Chapman MD Alkaline Phos 127 U/L High 35-104 [facility] Comment on above: Performed By: #### L IPR, T4, GLYHGB, T3 #### [facility] [address] [place] [address] Machine Or Machinery Mechanic: Antoine Wilson MD #### CP, TSH, CDP, ZFAST #### [facility] [address] [place], [place] [phone] Machine Or Machinery Mechanic: Zayra Chapman MD ALT [Catalytic activity/Vol] 51 U/L High 5-33 [facility] Comment on above: Performed By: #### L IPR, T4, GLYHGB, T3 #### [facility] [address] [place], [place] [phone] Machine Or Machinery Mechanic: Antoine Wilson MD #### CP, TSH, CDP, ZFAST #### [facility] [address] [place], [place] [phone] Machine Or Machinery Mechanic: Zayra Chapman MD Anion gap [Moles/Vol] 12 mmol/L Normal 9-17 [facility] Comment on above: Performed By: #### L IPR, T4, GLYHGB, T3 #### [facility] [address] [place], [place] [phone] Machine Or Machinery Mechanic: Antoine Wilson MD #### CP, TSH, CDP, ZFAST #### [facility] [address] [place], [place] [phone] Machine Or Machinery Mechanic: Zayra Chapman MD AST [Catalytic activity/Vol] 31 U/L Normal <32 [facility] Comment on above: Performed By: #### L IPR, T4, GLYHGB, T3 #### [address] [phone] Machine Or Machinery Mechanic: Antoine Wilson MD #### CP, TSH, CDP, ZFAST #### [facility] [address] [place], [place] [phone] Machine Or Machinery Mechanic: Zayra Chapman MD Bilirubin [Mass/Vol] 0.3 mg/dL Normal 0.3-1.2 [facility] Comment on above: Performed By: #### L IPR, T4, GLYHGB, T3 #### [address] [address] [id number] Machine Or Machinery Mechanic: Antoine Wilson MD #### CP, TSH, CDP, ZFAST #### [facility] [address] [place], [place] [id number] Machine Or Machinery Mechanic: Zayra Chapman MD BUN/CRE Ratio 16 Normal 9-20 [facility] Comment on above: Performed By: #### L IPR, T4, GLYHGB, T3 #### [address] [id number] Machine Or Machinery Mechanic: Antoine Wilson MD #### CP, TSH, CDP, ZFAST #### [facility] [address] [place], [place] [id number] Machine Or Machinery Mechanic: Zayra Chapman MD Calcium [Mass/Vol] 9.0 mg/dL Normal 8.6-10.4 [facility] Comment on above: Performed By: #### L IPR, T4, GLYHGB, T3 #### [address] [id number] Machine Or Machinery Mechanic: Antoine Wilson MD #### CP, TSH, CDP, ZFAST #### [facility] [address] [place], [place] [phone] Machine Or Machinery Mechanic: Zayra Chapman MD Chloride [Moles/Vol] 100 mmol/L Normal 98-107 [facility] Comment on above: Performed By: #### L IPR, T4, GLYHGB, T3 #### [address] [id number] Machine Or Machinery Mechanic: Antoine Wilson MD #### CP, TSH, CDP, ZFAST #### [facility] [address] [place] [id number] Machine Or Machinery Mechanic: Zayra Chapman MD CO2 [Moles/Vol] 24 mmol/L Normal 20-31 [facility] Comment on above: Performed By: #### L IPR, T4, GLYHGB, T3 #### [address] [id number] Machine Or Machinery Mechanic: Antoine Wilson MD #### CP, TSH, CDP, ZFAST #### [facility] [address] [place], [place] [id number] Machine Or Machinery Mechanic: Zayra Chapman MD Creatinine [Mass/Vol] 0.7 mg/dL Normal 0.5-0.9 [facility] Comment on above: Performed By: #### L IPR, T4, GLYHGB, T3 #### [address] [id number] Machine Or Machinery Mechanic: Antoine Wilson MD #### CP, TSH, CDP, ZFAST #### [facility] [address] [place] [address] Machine Or Machinery Mechanic: Zayra Chapman MD GFR/1.73 sq M.predicted among non-blacks MDRD (S/P/Bld) [Vol rate/Area] mL/min/{1.73_m2} Normal >60 [facility] Comment on above: Result Comment: These results [...] L IPR, T4, GLYHGB, T3 #### [address] [id number] Machine Or Machinery Mechanic: Antoine Wilson MD #### CP, TSH, CDP, ZFAST #### [facility] [address] [place] [address] Machine Or Machinery Mechanic: Zayra Chapman MD Glucose [Mass/Vol] 367 mg/dL High 70-99 [facility] Comment on above: Performed By: #### L IPR, T4, GLYHGB, T3 #### [address] [id number] Machine Or Machinery Mechanic: Antoine Wilson MD #### CP, TSH, CDP, ZFAST #### [facility] [address] [place] [address] Machine Or Machinery Mechanic: Zayra Chapman MD Potassium [Moles/Vol] 4.3 mmol/L Normal 3.7-5.3 [facility] Comment on above: Performed By: #### L IPR, T4, GLYHGB, T3 #### [address] [id number] Machine Or Machinery Mechanic: Antoine Wilson MD #### CP, TSH, CDP, ZFAST #### [facility] [address] [place], [place] [id number] Machine Or Machinery Mechanic: Zayra Chapman MD Protein [Mass/Vol] 7.0 g/dL Normal 6.4-8.3 [facility] Comment on above: Performed By: #### L IPR, T4, GLYHGB, T3 #### [address] [id number] Machine Or Machinery Mechanic: Antoine Wilson MD #### CP, TSH, CDP, ZFAST #### [facility] [address] [place], [place] [phone] Machine Or Machinery Mechanic: Zayra Chapman MD Sodium [Moles/Vol] 136 mmol/L Normal 135-144 [facility] Comment on above: Performed By: #### L IPR, T4, GLYHGB, T3 #### [address] [address] Machine Or Machinery Mechanic: Antoine Wilson MD #### CP, TSH, CDP, ZFAST #### [facility] [address] [place], [place] [id number] Machine Or Machinery Mechanic: Zayra Chapman MD Urea nitrogen [Mass/Vol] 11 mg/dL Normal 6-20 [facility] Comment on above: Performed By: #### L IPR, T4, GLYHGB, T3 #### [address] [id number] Machine Or Machinery Mechanic: Antoine Wilson MD #### CP, TSH, CDP, ZFAST #### [facility] [address] [place], [place] [phone] Machine Or Machinery Mechanic: Zayra Chapman MD Hemoglobin A1Con 02-13-2023 Glucose [Mass/Vol] 280 mg/dL Normal [facility] Comment on above: Result Comment: The ADA and AACC recommend providing the estimated average glucose result to permit better patient understanding of their HBA1c result. Performed By: #### U OSITO DAVIDSONG, UA #### [facility] [address] [place], [place] [id number] Machine Or Machinery Mechanic: Zayra Chapman MD HbA1c (Bld) [Mass fraction] 11.4 % High 4.0-6.0 [facility] Comment on above: Performed By: #### Julien DAVIDSON [facility], UA #### [facility] [address] [place], [place] [id number] Machine Or Machinery Mechanic: Zayra Chapman MD Lipid Profileon 02-13-2023 Cholesterol [Mass/Vol] 215 mg/dL High 0-199 [facility] Comment on above: Result Comment: Cholesterol Guidelines: <200 Desirable 200-240 Borderline >240 Undesirable Performed By: #### Julien DAVIDSON [facility], UA #### [facility] [address] [place], [place] [phone] Machine Or Machinery Mechanic: Zayra Chapman MD Cholesterol in HDL [Mass/Vol] 27 mg/dL Low >40 [facility] Comment on above: Result Comment: HDL Guidelines: <40 Undesirable 40-59 Borderline >59 Desirable Performed By: #### Julien DAVIDSON [facility], UA #### [facility] [address] [place] [address] Machine Or Machinery Mechanic: Zayra Chapman MD Cholesterol in LDL [Mass/Vol] 130 mg/dL High 0-100 [facility] Comment on above: Result Comment: LDL Guidelines: <100 Desirable 100-129 Near to/above Desirable 130-159 Borderline >159 Undesirable Direct (measured) LDL and calculated LDL are not interchangeable tests. Performed By: #### Julien DAVIDSON [facility], UA #### [facility] [address] [place], [place] [id number] Machine Or Machinery Mechanic: Zayra Chapman MD Cholesterol in VLDL [Mass/Vol] 58 mg/dL Normal [facility] Comment on above: Performed By: #### Julien DAVIDSON [facility], UA #### [facility] [address] [place], [place] [id number] Machine Or Machinery Mechanic: Zayra Chapman MD Cholesterol.total/Otilia sterol in HDL [Mass ratio] 8.0 {ratio} Normal [facility] Comment on above: Performed By: #### Julien DAVIDSON [facility], UA #### [facility] [address] [place] [address] Machine Or Machinery Mechanic: Zayra Chapman MD Triglyceride [Mass/Vol] 291 mg/dL High 0-149 [facility] Comment on above: Result Comment: Triglyceride Guidelines: <150 Desirable 150-199 Borderline 200-499 High >499 Very high Based on AHA Guidelines for fasting triglyceride, February 2012. Performed By: #### Julien DAVIDSON [facility], UA #### [facility] [address] [place] [address] Machine Or Machinery Mechanic: Zayra Chapman MD Patient fasting?on 3 Patient fasting? YES Normal [facility] Comment on above: Performed By: #### L IPR, T4, GLYHGB, T3 #### [facility] [address] [place], [place] [phone] Machine Or Machinery Mechanic: Antoine Wilson MD #### CP, TSH, CDP, ZFAST #### [facility] [address] [place] [address] Machine Or Machinery Mechanic: Zayra Chapman MD Thyroid Stim. Horm.on 2022 Thyroid Stim. Horm. 1.43 uIU/mL Normal 0.30-5.00 [facility] Comment on above: Performed By: #### Julien DAVIDSON [facility], UA #### [facility] [address] [place] [address] Machine Or Machinery Mechanic: Zayra Chapman MD Thyroxine T4on 02-13-2023 T4 [Mass/Vol] 5.9 ug/dL Normal 4.5-11.7 [facility] Comment on above: Performed By: #### Julien DAVIDSON [facility], UA #### [facility] [address] [place] [address] Machine Or Machinery Mechanic: Zayra Chapman MD Triiodothyronine T3on 2022 Triiodothyronine T3 109 ng/dL Normal 80-200 [facility] Comment on above: Performed By: #### U MICAO, CG, UA #### [facility] [address] [place] [address] Machine Or Machinery Mechanic: Zayra Chapman MD Chlamydia/GC DNA, Uron 12-23 Chlamydia Probe, Ur Negative Normal NEG [facility] Comment on above: Result Comment: CHLA MYDIA [...] target. Performed By: #### U CGP #### [id number] [place], [place] [id number] Machine Or Machinery Mechanic: Antoine Wilson MD Gonorrhea Probe, Ur Negative Normal NEG [facility] Comment on above: Result Comment: NEIS SERIA [...] target. Performed By: #### U CGP #### [facility] [address] [place], [place] [phone] Machine Or Machinery Mechanic: Antoine Wilson MD Cult,Urineon 12-21-2022 Cult,Urine Specimen [...] Tobramycin 8 INTERMEDIATE Trimethoprim/Sulfa >=320 RESISTANT Resistant [facility] Comment on above: Performed By: #### U RC #### [facility] [address] [place] [address] Machine Or Machinery Mechanic: Antoine Wilson MD [facility] [address] [place] [address] Machine Or Machinery Mechanic: Zayra Chapman MD HCG, ,Urineon 12-19 Beta HCG ( test) Ql (U) Negative Normal NEG [facility] Comment on above: Performed By: #### U MICAO, CG, UA #### [facility] [address] [place] [address] Machine Or Machinery Mechanic: Zayra Chapman MD Microscopic Urinalysison - [facility] Bacteria LM Ql (Urine sed) 4+ Abnormal None [facility] Epithelial cells LM.HPF (Urine sed) [#/Area] 2 TO 5 /HPF [facility] Interpretation and review of laboratory results Abnormal [facility] RBC LM.HPF (Urine sed) [#/Area] 2 TO 5 [facility] WBC LM.HPF (Urine sed) [#/Area] 50 TO 100 0 /HPF [facility] Yeast LM Ql (Urine sed) OCCASIONAL Abnormal None B ON [facility] , Urineon HCG ( test) Ql (U) Negative NEGATIVE [facility] Urinalysison 12-19-2022 Bilirubin Ql (U) Negative NEGATIVE [facility] Clarity (U) Cloudy Abnormal Clear [facility] Color (U) Yellow Yellow [facility] Comment [facility] Glucose Test strip (U) [Mass/Vol] 1000 mg/dL Abnormal NEGATIVE mg/dL [facility] Hemoglobin Auto test strip Ql (U) 1+ Abnormal NEGATIVE [facility] Interpretation and review of laboratory results Abnormal [facility] Ketones (U) [Mass/Vol] Negative NEGAT [place] mg/dL [facility] Leukocyte esterase Test strip Ql (U) 3+ Abnormal NEGATIVE [facility] Nitrite Ql (U) Positive Abnormal NEGATIVE [facility] pH (U) 6.0 [pH] 5.0 - 8.0 [facility] Protein (U) [Mass/Vol] 1+ Abnormal NEGAT [place] mg/dL [facility] Specific gravity (U) [Rel density] 1.010 1.005 - 1.030 [facility] Urobilinogen Qn (U) Normal 0.0 - 1. 0 EU/dL [facility] Urinalysis, Routineon 2022 Bilirubin, SemiQt,Ur Negative Normal NEG [facility] Comment on above: Performed By: #### U [facility], UA #### [facility] [address] [place] [address] Machine Or Machinery Mechanic: Zayra Chapman MD Blood, Urine 1+ Abnormal NEG [facility] Comment on above: Performed By: #### U MICA, [facility], UA #### [facility] [address] [facility] [place] [address] Machine Or Machinery Mechanic: Zayra Chapman MD Clarity (U) Cloudy Abnormal CLEAR [facility] Comment on above: Performed By: #### U MICAO, [facility], UA #### [facility] [address] [facility] [place] [address] Machine Or Machinery Mechanic: Zayra Chapman MD Color (U) Yellow Normal YEL [facility] Comment on above: Performed By: #### U MICAO, [facility], UA #### [facility] [address] [facility] [place] [address] Machine Or Machinery Mechanic: Zayra Chapman MD Comment Normal [facility] Comment on above: Performed By: #### U MICAO, [facility], UA #### [facility] [address] [place], [place] [id number] Machine Or Machinery Mechanic: Zayra Chapman MD Glucose Ql (U) 1000 mg/dL Abnormal NEG [facility] Comment on above: Performed By: #### U MICAO, [facility], [facility] #### [facility] [address] [place] [address] Machine Or Machinery Mechanic: Zayra Chapman MD Ketones Ql (U) Negative Normal NEG [facility] Comment on above: Performed By: #### U MICAO, [facility], UA #### [facility] [address] [place] [address] Machine Or Machinery Mechanic: Zayra Chapman MD Leukocyte esterase Test strip Ql (U) 3+ Abnormal NEG [facility] Comment on above: Performed By: #### U MICAO, [facility], UA #### [facility] [address] [place], [place] [phone] Machine Or Machinery Mechanic: Zayra Chapman MD Nitrite,Ur Positive Abnormal NEG [facility] Comment on above: Performed By: #### U MICAO, [facility], UA #### [facility] [address] [place] [address] Machine Or Machinery Mechanic: Zayra Chapman MD PH,Ur 6.0 Normal 5.0-8.0 [facility] Comment on above: Performed By: #### U MICAO, [facility], UA #### [facility] [address] [place], [place] [phone] Machine Or Machinery Mechanic: Zayra Chapman MD Protein Ql (U) 1+ mg/dL Abnormal NEG [facility] Comment on above: Performed By: #### U MICAO, [facility], U[facility] #### [facility] [address] [place], [place] [phone] Machine Or Machinery Mechanic: Zayra Chapman MD Spec. [place],Ur 1.010 Normal 1.005-1.030 [facility] Comment on above: Performed By: #### U STUART [facility], UA #### [facility] [address] [place], [place] [phone] Machine Or Machinery Mechanic: Zayra Chapman MD Urobilinogen,Ur Normal Normal 0.0-1.0 [facility] Comment on above: Performed By: #### U STUART [facility], UA #### [facility] [address] [place] [address] Machine Or Machinery Mechanic: Zayra Chapman MD Urinalysis,Microon 3 ----- Normal [facility] Comment on above: Performed By: #### Julien DAVIDSON [facility], UA #### [facility] [address] [place] [address] Machine Or Machinery Mechanic: Zayra Chapman MD Bacteria 4+ Abnormal NONE [facility] Comment on above: Performed By: #### U STUART [facility], UA #### [facility] [address] [place], [place] [phone] Machine Or Machinery Mechanic: Zayra Chapman MD Epithelial cells LM Ql (Urine sed) 2 TO 5 Normal [facility] Comment on above: Performed By: #### U STUART [facility], U[facility] #### [facility] [address] [place], [place] [phone] Machine Or Machinery Mechanic: Zayra Chapman MD Urine RBC's 2 TO 5 Normal 0-2 [facility] Comment on above: Performed By: #### U MICAO [facility], UA #### [facility] [address] [place], [place] [phone] Machine Or Machinery Mechanic: Zayra Chapman MD Urine WBC's 50 TO 100 Normal 0 [facility] Comment on above: Performed By: #### U STUART, [facility], UA #### [facility] [address] [place] [address] Machine Or Machinery Mechanic: Zayra Chapman MD Yeast OCCASIONAL Abnormal NONE [facility] Comment on above: Performed By: #### U STUART, [facility], UA #### [facility] [address] [place] [address] Machine Or Machinery Mechanic: Zayra Chapman MD Auto Diffon 12-06-2022 Basophils/100 WBC (Bld) 0.8 % Normal 0.0-2.0 F [facility] Comment on above: Order Comment: Order Added by Discern Expert. Performed By: #### 2 043634, 3936043, 3876149, [id number] #### [facility] [address] [place] [address] Basophils/Leukocytes Auto (Bld) [Pure # fraction] 0.1 E9/L Normal 0.0-0.[address] [facility] Comment on above: Order Comment: Order Added by Discern Expert. Performed By: #### 2 714009, 4701711, 9537164, [id number] #### [facility] [address] [place] [address] Eosinophils/100 WBC (Bld) 0.3 % Normal 0.0-8.[address] [facility] Comment on above: Order Comment: Order Added by Discern Expert. Performed By: #### 2 603318, 5445984, 0810122, [id number] #### [facility] [address] [place] [address] Eosinophils/Leukocytes Auto (Bld) [Pure # fraction] 0.0 E9/L Normal 0.0-0.[address] [facility] Comment on above: Order Comment: Order Added by Discern Expert. Performed By: #### 2 023914, 5141070, 5751191, [id number] #### [facility] [address] [place] [address] Lymphocytes/100 WBC (Bld) 12.5 % Low 14.0-50.[address] [facility] Comment on above: Order Comment: Order Added by Discern Expert. Performed By: #### 2 858583, 9723923, 1575846, [id number] #### [facility] [address] [place] [address] Lymphocytes/Leukocytes Auto (Bld) [Pure # fraction] 1.3 E9/L Normal 1.0-4.[address] [facility] Comment on above: Order Comment: Order Added by Discern Expert. Performed By: #### 2 461963, 6136762, 8140551, 10476386 #### [facility] [address] [place] [address] Monocytes/100 WBC (Bld) 4.5 % Normal 4.0-14.0 [place] Comment on above: Order Comment: Order Added by Discern Expert. Performed By: #### 2 597517, 2317031, 1591818, [id number] #### [facility] [address] [place] [address] Monocytes/Leukocytes Auto (Bld) [Pure # fraction] 0.5 E9/L Normal 0.2-1.[address] [facility] Comment on above: Order Comment: Order Added by Lois Expert. Performed By: #### 2 618210, 3472430, 1548254, [id number] #### [facility] [address] [place] [address] Neutrophils/100 WBC (Bld) 81.9 % High 36.0-75.[address] [facility] Comment on above: Order Comment: Order Added by Discern Expert. Performed By: #### 2 947068, 9112643, 1087579, 73843683 #### [facility] [address] [place] [address] Neutrophils/Leukocytes Auto (Bld) [Pure # fraction] 8.8 E9/L High 2.0-7.[address] [facility] Comment on above: Order Comment: Order Added by Discern Expert. Performed By: #### 2 978150, 3671278, 2438939, 36620911 #### [facility] [address] [place] [address] CBC w/ Auto Diffon 3 Erythrocyte distribution width (RBC) [Ratio] 13.9 % Normal 10.9-14.[address] [facility] Comment on above: Performed By: #### 2 668677, 2169135, 5564088, 99279435 #### [facility] [address] [place] [address] Hematocrit (Bld) [Volume fraction] 42.7 % Normal 34.0-46.[address] [facility] Comment on above: Performed By: #### 2 422348, 9609083, 1484136, 67751033 #### [facility] [address] [place] [address] Hemoglobin (Bld) [Mass/Vol] 14.2 g/dL Normal 12.0-16.[address] [facility] Comment on above: Performed By: #### 2 909535, 3281881, 6357761, 26726778 #### [facility] [address] [place] [address] MCH (RBC) [Entitic mass] 26.8 pg Low 27.0-34.[address] [facility] Comment on above: Performed By: #### 2 876703, 9073123, 2446633, 89924267 #### [facility] [address] [place] [address] MCHC (RBC) [Mass/Vol] 33.2 g/dL Normal 31.4-36.[address] [facility] Comment on above: Performed By: #### 2 433518, 5243398, 0091707, 55991411 #### [facility] [address] [place] [address] MCV (RBC) [Entitic vol] 80.8 fL Normal 80.0-100.0 F [facility] Comment on above: Performed By: #### 2 657147, 0158250, 0195436, 74954116 #### [facility] [address] [place] [address] Platelet mean volume (Bld) [Entitic vol] 9.8 fL Normal 6.4-10.[address] [facility] Comment on above: Performed By: #### 2 147845, 2789055, 6097132, 43653980 #### [facility] [address] [place] [address] Platelets (Bld) [#/Vol] 252.0 E9/L Normal 150.0-500.[address] [facility] Comment on above: Performed By: #### 2 940322, 9747683, 8552192, 53631426 #### [facility] [address] [place] [address] RBC (Bld) [#/Vol] 5.3 E12/L Normal 4.3-5.[address] [facility] Comment on above: Performed By: #### 2 271168, 0817599, 4435677, 84689147 #### [facility] [address] [place] [address] WBC corrected for nucl RBC Auto (Bld) [#/Vol] 10.7 E9/L Normal 4.0-11.0 [facility] Comment on above: Performed By: #### 2 788310, 1678447, 6362646, 58090912 #### [facility] [address] [place] [address] CHEMISTRYOrdered By: SYSTEM SYSTEM on 12-06-2022 Albumin [...] 12-06-2022 Albumin [Mass/Vol] 4.2 g/dL Normal 3.3-5.[address] [facility] Comment on above: Performed By: #### 2 113136, 1496178, 0861115, 70268184 #### [facility] [address] [place] [address] Albumin/Globulin (S) [Mass conc ratio] 1.2 Normal 1.1-2.[address] [facility] Comment on above: Performed By: #### 2 880584, 8688447, 0695424, 58811735 #### [facility] [address] [place] [address] ALP [Catalytic activity/Vol] 117 Int._Unit/L High 21-[address] [facility] Comment on above: Performed By: #### 2 337026, 8878509, 0339356, 97401898 #### [facility] [address] [place] [address] ALT No additional P-5'-P [Catalytic activity/Vol] 78 Int._Unit/L High 6-[address] [facility] Comment on above: Performed By: #### 2 077418, 2150295, 5703813, 90641201 #### [facility] [address] [place] [address] AST [Catalytic activity/Vol] 68 Int._Unit/L High 5-[address] [facility] Comment on above: Performed By: #### 2 228867, 1524288, 5855941, 87617581 #### [facility] [address] [place] [address] Bilirubin [Mass/Vol] 0.7 mg/dL Normal 0.0-1.1 [facility] Comment on above: Performed By: #### 2 817980, 8342459, 8615603, 03241765 #### [facility] [address] [place] [address] Creatinine [Mass/Vol] 0.8 mg/dL Normal 0.5-1.[address] [facility] Comment on above: Performed By: #### 2 954714, 1536017, 2421634, 88864993 #### [facility] [address] [place] [address] Globulin (S) [Mass/Vol] 3.6 g/dL Normal 1.4-4.0 [place] Comment on above: Performed By: #### 2 441857, 8212099, 7678025, 17174171 #### [facility] [address] [place] [address] Protein [Mass/Vol] 7.8 g/dL Normal 6.0-7.[address] [facility] Comment on above: Performed By: #### 2 396316, 8486151, 9397267, 57684108 #### [facility] [address] [place] [address] Urea nitrogen [Mass/Vol] 12 mg/dL Normal 5-[address] [facility] Comment on above: Performed By: #### 2 256532, 0942906, 3838379, 50935189 #### [facility] [address] [place] [address] Urea nitrogen/Creatinine [Mass ratio] 15 No Units Normal 10-[address] [facility] Comment on above: Performed By: #### 2 251732, 7516871, 7303383, 37215534 #### [facility] [address] [place] [address] Anion gap [Moles/Vol] 15 mmol/L Normal 6-[address] [facility] Comment on above: Performed By: #### 2 256175, 6723902, 9458097, 50450619 #### [facility] [address] [place] [address] Calcium [Mass/Vol] 9.6 mg/dL Normal 8.9-11.[address] [facility] Comment on above: Performed By: #### 2 863421, 1364169, 6714090, 06309685 #### [facility] [address] [place] [address] Chloride [Moles/Vol] 104 mmol/L Normal 101-111 [facility] Comment on above: Performed By: #### 2 [id number], [id number], [id number], [id number] #### [facility] [address] [place] [address] CO2 [Moles/Vol] 22 mmol/L Normal 21-31 [facility] Comment on above: Performed By: #### 2 [id number], [id number], [id number], [id number] #### [facility] [address] [place] [address] Glucose [Mass/Vol] 244 mg/dL High 55-[address] [facility] Comment on above: Result Comment: If t his glucose result represents a fasting glucose, interpretation should refer to the following reference range: 55-99 mg/dL Performed By: #### 2 [id number], [id number], [id number], [id number] #### [facility] [address] [place] [address] Potassium [Moles/Vol] 4.3 mmol/L Normal 3.5-5.[address] [facility] Comment on above: Performed By: #### 2 [id number], [id number], [id number], [id number] #### [facility] [address] [place] [address] Sodium [Moles/Vol] 137 mmol/L Normal 135-[address] [facility] Comment on above: Performed By: #### 2 200509, [id number], [id number], [id number] #### [facility] [address] [place] [address] Consent for Treatmenton Consent for Treatment [id number] .[id number]:[address] [facility] Discharge Instructionson Discharge Instructions [id number] 1.00CD:[address] [facility] ED Clinical Summaryon 2022 ED Clinical Summary [address] [address] ED Clinical Summary Person Information Name: RIRI DEMPSEY/[facility] Age: 27 Years : 1995 Sex: Female Language: Greek PCP: GAYE BARORS Marital Status: Single Visit Id: Visit Reason: [...] 16:43:40 12/06/2022 16:43:40 ADDRESS: [facility] [id number] [facility] DOC NOTES: MEDICAL INFORMATION: Prescriptions Given: Medications to Continue with No Changes Other Medications venlafaxine (Effexor XR 150 mg Cap-ER) PATIENT EDUCATION INFORMATION: Instructions: Suicidal Feelings: How to Help Yourself Follow up: With: Address: When: [facility] In 3 days 12/09/2022 Comments: Follow safety plan. Return to the emergency department with any worsening symptoms. With: Address: When: GAYE JOSUE [address] [place] [address] [facility] ([facility] In 3 days 12/09/2022 Comments: Call the [...] in 1 month. 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 Return to the emergency department with any worsening symptoms. GAYE JOSUE In 3 days 12/09/2022 EDT [address] [facility] [place] [id number] [facility] (1) Additional Instructions: Call the office of [...] Known Medica (more content not included)... Normal [facility] Comment on above: Result Comment: Elec [...] ? Call the [facility] and human services helpline (211 in the [place] ? Call or text a suicide hotline to speak with a trained counselor. The following suicide hotlines are available in the [place]: ? 9-662-224-TALK ( or 364 in the [place] ? 6-593-XXBGKAU ( ). ? Text 630435. This is the Crisis Text Line in the [place] ? . This is a hotline for Samoan speakers. ? . This is a hotline for TTY users. ? 4-833-8-U-YASHIRA ( ). This is a hotline for [...] list of crisis centers in [place], visit: suicideprevention.md How to help yourself feel better ? [...] anyone or being with other people. ? Guht-hd-kqou conversation is best to help them understand [...] and a mental health checkup. ? Take octx-esa-cbihrfr and prescription medicines only as told by [...] will hel (more content not included)... Normal [facility] ED Patient Summaryon 023 ED Patient Summary [place] [id number] Patient Discharge Instructions Person Information Name: RIRI DEMPSEY Age: 27 Years Arrival Date: 12/06/2022 13:19:47 Discharge Diagnosis: Situational stress Primary Care Physician: GAYE BARROS Provider Information Primary Provider: Graham Choe DO Advanced Sequencing Machine Operator:None The exam and treatment you received in the Emergency Department were for an urgent problem and are not intended as complete care. It is important that you follow up with a doctor, nurse practitioner, or physician?s retail event and sales assistant for ongoing care. If your symptoms become worse or you do not improve as expected and you are unable to reach your usual health care provider, you should return to the Emergency Department. We are available 24 hours a day. RIRI DEMPSEY has been given the following list of patient education materials, prescriptions and follow-up instructions: Follow-up Instructions: With: Address: When: [facility] In 3 days 12/09/2022 Comments: Follow safety plan. Return to the emergency department with any worsening symptoms. With: Address: When: GAYE JOSUE [address] [place] [address] [facility] (1) In 3 days 12/09/2022 Comments: Call [...] opioids can be used to help relieve knxksvgj-yb-vzlkct pain and are often prescribed following a [...] and katja (more content not included)... Normal [facility] Ethanolon 12-06-2022 Ethanol [Mass/Vol] mg/dL Normal <=[address] [facility] Comment on above: Performed By: #### 2 [id number] ####[facility] [address] [place] [address] HEMATOLOGYOrdered By: SYSTEM SYSTEM on 12-06-2022 Basophils/100 [...] with NPD at time of arrival Normal [facility] SEROLOGYOrdered By: Antonio Stevens on 12-06-2022 HCG.beta subunit (U) [Moles/Vol] Negative Normal [facility] Man Sero U BetaHcg Qualon 12-06-2022 HCG.beta subunit (U) [Moles/Vol] Negative Normal [facility] Comment on above: Performed By: #### 2 [id number] #### [facility] [address] [place] [address] U Drug Screenon 12-06-2022 Benzodiazepines Ql (U) Positive Abnormal Negative [facility] Comment on above: Result Comment: Crit ical Result verified by repeat analysis\No confirmation requested by Physican\Unconfirmed by alternate method\Critical Result UD_BENZ:POS Called to [facility] ER by JOEL STEVENS And Read Back For Confirmation at: 12/06/2022 14:42:33 Negative Cutoff: <200 ng/mL Performed By: #### 2 [id number] ####[place] [address] [place] [address] Tetrahydrocannabinol Screen method >50 ng/mL Ql (U) Positive Abnormal Negative [facility] Comment on above: Result Comment: Crit ical Result verified by repeat analysis\No confirmation requested by Physican\Unconfirmed by alternate method\Critical Result UD_THC:POS Called to [facility] AT ER by JOEL STEVENS And Read Back For Confirmation at: 12/06/2022 14:42:33 Negative Cutoff: <50 ng/mL Performed By: #### 2 [id number] ####[place] [address] [place] [address] Amphetamines Screen method >1000 ng/mL Ql (U) Negative Normal Negative [facility] Comment on above: Result Comment: Nega tive Cutoff: <1000 ng/mL Performed By: #### 2 [id number] ####[facility] [address] [place] [address] Barbiturates Screen Ql (U) Negative Normal Negative [facility] Comment on above: Result Comment: Nega tive Cutoff: <200 ng/mL Performed By: #### 2 [id number] ####[facility] [address] [place] [address] Cocaine Ql (U) Negative Normal Negative [facility] Comment on above: Result Comment: Nega tive Cutoff: <300 ng/mL Performed By: #### 2 710535 ####[facility] [address] [place] [address] Opiates Screen Ql (U) Negative Normal Negative [facility] Comment on above: Result Comment: Nega tive Cutoff: <300 ng/mL Performed By: #### 2 [id number] ####[facility] [address] [place] [address] Phencyclidine Screen method >25 ng/mL Ql (U) Negative Normal Negative [facility] Comment on above: Result Comment: Nega tive Cutoff: <25 ng/mL These drug screen results are to be used for medical (i.e., treatment) purposes only. Unconfirmed drug screening results must not be used for non-medical purposes (e.g., employment testing, legal testing). Performed By: #### 2 [id number] ####[facility] [address] [place] [address] eGFRon 12-06-2022 GFR/1.73 sq M.predicted among non-blacks MDRD (S/P/Bld) [Vol rate/Area] 105 mL/min/1.73 m2 Normal >=[address] [facility] Comment on above: Order Comment: Order added by Discern Expert. Result Comment: Manual W[place] dayanna kidney disease could be indicated at eGFR's of less than 60 mL/min/1.73m2. Kidney failure is indicated at less than 15 mL/min/1.73m2. Performed By: #### 2 [id number], [id number], [id number], [id number] ####[facility] [address] [place] [address] Basic Metabolic Panelon 06-05 Anion gap [Moles/Vol] 11 mmol/L 9 - 17 mmol/L [facility] Calcium [Mass/Vol] 9.5 mg/dL 8.6 - 10. 4 mg/dL [facility] Chloride [Moles/Vol] 103 mmol/L 98 - 10 7 mmol/L [facility] CO2 [Moles/Vol] 27 mmol/L 20 - 31 mmol/L [facility] Creatinine [Mass/Vol] 0.57 mg/dL 0.50 - 0.90 mg/dL [facility] GFR/1.73 sq M.predicted MDRD (S/P/Bld) [Vol rate/Area] - PINF [facility] Comment on above: These results are not [...] 154 mg/dL High 70 - 99 mg/dL [facility] Interpretation and review of laboratory results Abnormal [facility] Potassium [Moles/Vol] 4.2 mmol/L 3.7 - 5.3 mmol/L [facility] Sodium [Moles/Vol] 141 mmol/L 135 - 144 mmol/L [facility] Urea nitrogen [Mass/Vol] 12 mg/dL 6 - 20 mg/dL [facility] Urea nitrogen/Creatinine (Bld) [Mass ratio] 21 High 9 - 20 [facility] CBC with Auto Differentialon 06-16-2022 Absolute Eos # 0.10 [facility] Absolute Lymph # 1.90 [facility] URS [facility] Absolute Bleckley # 0.40 [facility] RS [facility] Basophils (Bld) [#/Vol] 0.00 10*3/uL [facility] Basophils/100 WBC (Bld) 1 % 0 - 2 % B ON [facility] Differential Type YES [facility] Eosinophils/100 WBC (Bld) 1 % 0 - 5 % [facility] Hematocrit (Bld) [Volume fraction] 40.3 % 36 - 46 % [facility] Hemoglobin (Bld) [Mass/Vol] 13.0 g/dL 12.0 - 16.0 g/dL [facility] Lymphocytes/100 WBC (Bld) 23 % 15 - 40 % [facility] MCH (RBC) [Entitic mass] 27.2 pg 26 - 34 pg [facility] MCHC (RBC) [Mass/Vol] 32.4 g/dL 31 - 3 7 g/dL [facility] MCV (RBC) [Entitic vol] 84.1 fL 80 - 100 fL [facility] Monocytes/100 WBC (Bld) 5 % 4 - 8 % B ON [facility] Platelet distribution width (Bld) [Ratio] 13.9 % 12.1 - 15.2 % [facility] Platelets (Bld) [#/Vol] 225 10*3/uL [facility] RBC (Bld) [#/Vol] 4.79 10*6/uL 4.0 - 5.2 m/uL [facility] Segmented neutrophils/100 WBC (Bld) 70 % 47 - 75 % [facility] Segs Absolute 5.70 [facility] WBC (Bld) [#/Vol] 8.2 10*3/uL [facility] CT HEAD WO CONTRASTon 2022 No acute intracranial abnormality. FOLLOW-UP: Follow-up as clinically indicated. [facility] EXAM: CT HEAD WO CONTRAST 06/16/2022 2:34 AM EST [facility] CLINICAL STATEMENT: Has a code stroke [...] orbits and the paranasal sinuses are normal. [facility] Trang Mcgregor MD - 06/16/2022 EXAM: CT HEAD WO CONTRAST 06/16/2022 2:34 AM EST [facility] CLINICAL STATEMENT: Has a code stroke [...] abnormality. FOLLOW-UP: Follow-up as clinically indicated. JULIANO [employer] Work Phone: Radiology Study observation (narrative) JULIANO PADILLA [employer] Work Phone: CT HEAD WO CONTRASTOrdered B y: Trang Said on 06-16-2022 [employer] Work Phone: HCG Qualitative, Serumon hCG Qual Negative NEGATIVE [facility] [employer] Comment on above: Specimens with hCG l evels near the threshold of the test (25 mIU/mL) may give a negative or indeterminate result. In such cases, another test should be performed with a new specimen in 48-72 hours. If early is suspected clinically in this setting, correlation with quantitative serum b-hCG level is suggested. [employer] has confirmed the use of plasma for this test. This has not been cleared or approved by the [place]. Food and Drug Administration. The FDA has determined that such clearance is not necessary. [facility] Bilirubin Urine Negative NEGATIVE [facility] deltaDNA Color, UA Yellow Yellow [facility] deltaDNA Glucose Auto test strip (U) [Mass/Vol] Negative NEGATIVE [facility] Interpretation and review of laboratory results Abnormal [facility] deltaDNA Ketones (U) [Mass/Vol] Negative NEGATIVE [facility] deltaDNA Leukocyte esterase Auto test strip Ql (U) Negative NEGATIVE [facility] deltaDNA Nitrite Auto test strip Ql (U) Negative NEGATIVE [facility] deltaDNA Protein (U) [Mass/Vol] 7.0 mg/dL 5.0 - 8.0 [facility] deltaDNA Protein (U) [Mass/Vol] TRACE Abnormal NEGATIVE [facility] deltaDNA Specific [place], UA 1.005 1.005 - 1.030 [facility] Turbidity UA Clear Clear [facility] Urinalysis Comments JULIANO Lee [facility] Urine Hgb Negative NEGATIVE [facility] Urobilinogen, Urine Normal Normal JULIANO Lee [facility] JULIANO [facility] XR LUMBAR SPINE (MIN 4 VIEWS )on 03-13-2022 No degenerative change, discitis or fracture. [facility] EXAM: XR LUMBAR SPIN E (MIN 4 VIEWS) HISTORY: Reason for exam:->midline low back pain [facility] Quinn Roberto Jr., MD - 03/13/2022 EXAM: XR LUMBAR SPINE (MIN 4 VIEWS) HISTORY: Reason for exam:->midline low back pain IMPRESSION: No degenerative change, discitis or fracture. [facility] [employer] Work Phone: Radiology Study observation (narrative) [facility] [employer] Work Phone: XR LUMBAR SPINE (MIN 4 VIEWS )Ordered By: Quinn Roberto on 03-13-2022 [facility] Work [facility]: CBC AUTO DIFFon 10-04-2021 BASO # 0.0 103/ul Normal 0.0-0.1 [facility] Comment on above: Performed By: #### H H #### [facility] [address] [place] [address] [address] Ramya Ramey Basophils/100 WBC (Bld) 0.2 % Normal 0.2-2.[address] [facility] Comment on above: Performed By: #### H H #### [facility] [address] [place] [address] [address] Ramya Ramey EO # 0.1 103/ul Normal 0.0-0.7 [facility] Comment on above: Performed By: #### H H #### [facility] [address] [place] [address] [address] Ramya Ramey Eosinophils/100 WBC (Bld) 0.7 % Critically low 0.9-7.0 [facility] Comment on above: Performed By: #### H H #### [facility] [address] [place] [address] Dr. Ramya Ramey Erythrocyte distribution width (RBC) [Ratio] 13.4 % Normal 11.0-15.0 [facility] Comment on above: Performed By: #### H H #### [facility] [address] [place] [address] Dr. Ramya Ramey Hematocrit (Bld) [Volume fraction] 29.4 % Critically low 36.0-48.0 [facility] Comment on above: Performed By: #### H H #### [facility] [address] [place] [address] Dr. Ramya Ramey Hemoglobin (Bld) [Mass/Vol] 9.5 g/dL Critically low 12.0-16.0 [facility] Comment on above: Performed By: #### H H #### [facility] [address] [place] [address] Dr. Ramya Ramey IG # 0.06 10e3/ul Critically high 0.00-0.03 [facility] Comment on above: Performed By: #### H H #### [facility] [address] [place] [address] Dr. Ramya Ramey IG % 0.5 % Normal 0.0-0.5 [facility] Comment on above: Performed By: #### H H #### [facility] [address] [place] [address] Dr. Ramya Ramey LYMPH # 1.3 103/ul Normal 1.2-3.8 [facility] Comment on above: Performed By: #### H H #### [facility] [address] [place] [address] Dr. Ramya Ramey Lymphocytes/100 WBC (Bld) 11.5 % Critically low 20.5-60.0 [facility] Comment on above: Performed By: #### H H #### [facility] [address] [place] [address] Dr. Ramya Ramey MANUAL DIFF REQ NO Normal [facility] Comment on above: Performed By: #### H H #### [facility] [address] [place] [address] Dr. Ramya Ramey MCH (RBC) [Entitic mass] 28.4 pg Normal 26.7-34.0 [facility] Comment on above: Performed By: #### H H #### [facility] [address] [place] [address] [address] Ramya Ramey MCHC (RBC) [Mass/Vol] 32.3 g/dL Normal 29.9-35.2 [facility] Comment on above: Performed By: #### H H #### [facility] [address] [place] [address] [address] Ramya Ramey MCV (RBC) [Entitic vol] 88.0 fL Normal 81.0-99.[address] [facility] Comment on above: Performed By: #### H H #### [facility] [address] [place] [address] Dr. Ramya Ramey MONO # 0.7 103/ul Normal 0.3-0.8 [facility] Comment on above: Performed By: #### H H #### [facility] [address] [place] [address] Dr. Ramya Ramey Monocytes/100 WBC (Bld) 5.9 % Normal 1.7-12.[address] [facility] Comment on above: Performed By: #### H H #### [facility] [address] [place] [address] Dr. Ramya Ramey NEUT # 9.4 103/ul Critically high 1.4-6.5 [facility] Comment on above: Performed By: #### H H #### [facility] [address] [place] [address] [address] Ramya Ramey Neutrophils/100 WBC (Bld) 81.2 % Critically high 43.0-75.0 [facility] Comment on above: Performed By: #### H H #### [facility] [address] [place] [address] [address] Ramya Ramey Platelet mean volume (Bld) [Entitic vol] 11.9 fL Normal 9.5-13.5 [facility] Comment on above: Performed By: #### H H #### [facility] [address] [place] [address] [address] Ramya Ramey PLT 162 103/ul Normal 150-450 [facility] Comment on above: Performed By: #### H H #### [facility] [address] [place] [address] Dr. Ramya Ramey RBC 3.34 106/ul Critically low 4.20-5.40 [facility] Comment on above: Performed By: #### H H #### [facility] [address] [place] [address] [address] Ramya Ramey WBC 11.5 103/ul Critically high 4.0-11.0 [facility] Comment on above: Performed By: #### H H #### [facility] [address] [place] [address] Dr. Ramya Ramey CBC AUTO DIFFon 10-03-2021 BASO # 0.0 103/ul Normal 0.0-0.1 [facility] Comment on above: Performed By: #### H H #### [facility] [address] [place] [address] Dr. Ramya Ramey Basophils/100 WBC (Bld) 0.2 % Normal 0.2-2.[address] [facility] Comment on above: Performed By: #### H H #### [facility] [address] [place] [address] Dr. Ramya Ramey EO # 0.1 103/ul Normal 0.0-0.7 [facility] Comment on above: Performed By: #### H H #### [facility] [address] [place] [address] Dr. Ramya Ramey Eosinophils/100 WBC (Bld) 0.9 % Normal 0.9-7.0 [facility] Comment on above: Performed By: #### H H #### [facility] [address] [place] [address] Dr. Ramya Ramey Erythrocyte distribution width (RBC) [Ratio] 13.3 % Normal 11.0-15.0 [facility] Comment on above: Performed By: #### H H #### [facility] [address] [place] [address] Dr. Ramya Ramey Hematocrit (Bld) [Volume fraction] 34.8 % Critically low 36.0-48.0 [facility] Comment on above: Performed By: #### H H #### [facility] [address] [place] [address] Dr. Ramya Ramey Hemoglobin (Bld) [Mass/Vol] 11.2 g/dL Critically low 12.0-16.0 [facility] Comment on above: Performed By: #### H H #### [facility] [address] [address] [address] Ramya Ramey IG # 0.07 10e3/ul Critically high 0.00-0.03 [facility] Comment on above: Performed By: #### H H #### [facility] [address] [place] [address] Dr. Ramya Ramey IG % 0.6 % Critically high 0.0-0.5 [facility] Comment on above: Performed By: #### H H #### [facility] [address] [place] [address] Dr. Ramya Ramey LYMPH # 1.5 103/ul Normal 1.2-3.8 [facility] Comment on above: Performed By: #### H H #### [facility] [address] [place] [address] Dr. Ramya Ramey Lymphocytes/100 WBC (Bld) 13.4 % Critically low 20.5-60.0 [facility] Comment on above: Performed By: #### H H #### [facility] [address] [place] [address] Dr. Ramya Ramey MANUAL DIFF REQ NO Normal [facility] Comment on above: Performed By: #### H H #### [facility] [address] [place] [address] Dr. Ramya Ramey MCH (RBC) [Entitic mass] 28.3 pg Normal 26.7-34.0 [facility] Comment on above: Performed By: #### H H #### [facility] [address] [place] [address] Dr. Ramya Ramey MCHC (RBC) [Mass/Vol] 32.2 g/dL Normal 29.9-35.2 [facility] Comment on above: Performed By: #### H H #### [facility] [address] [place] [address] Dr. Ramya Ramey MCV (RBC) [Entitic vol] 87.9 fL Normal 81.0-99.[address] [facility] Comment on above: Performed By: #### H H #### [facility] [address] [place] [address] Dr. Ramya Ramey MONO # 0.5 103/ul Normal 0.3-0.8 [facility] Comment on above: Performed By: #### H H #### [facility] [address] [place] [address] Dr. Ramya Ramey Monocytes/100 WBC (Bld) 4.8 % Normal 1.7-12.[address] [facility] Comment on above: Performed By: #### H H #### [facility] [address] [place] [address] Dr. Ramya Ramey NEUT # 8.9 103/ul Critically high 1.4-6.5 [facility] Comment on above: Performed By: #### H H #### [facility] [address] [place] [address] Dr. Ramya Ramey Neutrophils/100 WBC (Bld) 80.1 % Critically high 43.0-75.0 [facility] Comment on above: Performed By: #### H H #### [facility] [address] [place] [address] Dr. Ramya Ramey Platelet mean volume (Bld) [Entitic vol] 11.8 fL Normal 9.5-13.5 [facility] Comment on above: Performed By: #### H H #### [facility] [address] [place] [address] Dr. Ramya Ramey PLT 194 103/ul Normal 150-450 [facility] Comment on above: Performed By: #### H H #### [facility] [address] [place] [address] Dr. Ramya Ramey RBC 3.96 106/ul Critically low 4.20-5.40 [facility] Comment on above: Performed By: #### H H #### [facility] [address] [place] [address] Dr. Ramya Ramey WBC 11.1 103/ul Critically high 4.0-11.0 [facility] Comment on above: Performed By: #### H H #### [facility] [address] [place] [address] Dr. Ramya Ramey Covid-19 PCR ([facility])on SARS-CoV-2 (COVID-19) RNA JAKE+probe Ql (Unsp spec) Not detected Normal NOT DETECTED [facility] Comment on above: Result Comment: When [...] for this test is supported by the [place] of Health and Human Service's declaration that [...] used). Performed By: #### H H #### [facility] [address] [place] [address] Dr. Ramya Ramey DRUG SCREEN RAPID (URINE)on 10-03-2021 AMP Negative Normal NEGATIVE [facility] Comment on above: Performed By: #### H H #### [facility] [address] [place] [address] Dr. Ramya Ramey BAR Negative Normal NEGATIVE [facility] Comment on above: Performed By: #### H H #### [facility] [address] [place] [address] Dr. Ramya Ramey BUP Negative Normal NEGATIVE [facility] Comment on above: Performed By: #### H H #### [facility] [address] [place] [address] Dr. Ramya Ramey BZO Negative Normal NEGATIVE [facility] Comment on above: Performed By: #### H H #### [facility] [address] [place] [address] Dr. Ramya Ramey ANIBAL Negative Normal NEGATIVE [facility] Comment on above: Performed By: #### H H #### [facility] [address] [place] [address] Dr. Ramya Ramey CUT-OFFS SEE BELOW Normal [facility] Comment on above: Result Comment: AMP [...] ng/mL Performed By: #### H H #### [facility] [address] [place] [address] Dr. Ramya Ramey DRUG CUT HEADER DRUG CLASS TEST SYSTEM CUT-OFF CONCENTRATIONS ARE FOLLOWS: Normal [facility] Comment on above: Performed By: #### H H #### [facility] [address] [place] [address] Dr. Ramya Ramey mAMP Negative Normal NEGATIVE [facility] Comment on above: Performed By: #### H H #### [facility] [address] [place] [address] Dr. Ramya Ramey MTD Negative Normal NEGATIVE [facility] Comment on above: Performed By: #### H H #### [facility] [address] [place] [address] Dr. Ramya Ramey OPI Negative Normal NEGATIVE [facility] Comment on above: Performed By: #### H H #### [facility] [address] [address] [address] Ramya Ramey OXY Negative Normal NEGATIVE [facility] Comment on above: Performed By: #### H H #### [facility] [address] [address] [address] Ramya Ramey PCP Negative Normal NEGATIVE [facility] Comment on above: Performed By: #### H H #### [facility] [address] [address] [address] Ramya Ramey PPX Negative Normal NEGATIVE [facility] Comment on above: Performed By: #### H H #### [facility] [address] [address] [address] Ramya Ramey TCA Negative Normal NEGATIVE [facility] Comment on above: Performed By: #### H H #### [facility] [address] [address] [address] Ramya Ramey THC Negative Normal NEGATIVE [facility] Comment on above: Performed By: #### H H #### [facility] [address] [address] [address] Ramya Ramey POINT OF CARE GLUCOSEon Glucose [Mass/Vol] 126 mg/dL Critically high 74-106 T [facility] Comment on above: Performed By: #### P OCGLUC #### [facility] [address] [address] [address] Ramya Ramey TYPE AND SCREENon 10-03-2021 TYPE AND SCREEN Negative Normal [facility] Comment on above: Performed By: #### P OCGLUC #### [facility] [address] [address] [address] Ramya Ramey CULTURE URINEon 10-01-2021 CULTURE URINE Culture Observations : LIGHT GROWTH OF MIXED GENITAL LEAAN. NO POTENTIAL PATHOGENS SEEN. Normal [facility] Comment on above: Performed By: #### P OCGLUC #### [facility] [address] [address] [address] Ramya Ramey POINT OF CARE GLUCOSEon 09-04 Glucose [Mass/Vol] 134 mg/dL Critically high 74-106 T [facility] Comment on above: Performed By: #### P OCGLUC #### [facility] [address] [address] [address] Ramya Ramey UA (CLEAN/CATCH) COKE DRAWER/MICRO I F IND.on 10-01-2021 Bilirubin Ql (U) Negative Normal NEGATIVE [facility] Comment on above: Performed By: #### U ACSIND, UMICRO #### [facility] [address] [address] [address] Ramya Ramey Clarity (U) CLEAR Normal CLEAR [facility] Comment on above: Performed By: #### U ACSIND, UMICRO #### [facility] [address] [address] [address] Ramya Ramey Color (U) YELLOW Normal YELLOW [facility] Comment on above: Performed By: #### U ACSIND, UMICRO #### [facility] [address] [address] [address] Ramya Ramey Glucose Ql (U) Negative Normal NEGATIVE [facility] Comment on above: Performed By: #### U ACSIND, UMICRO #### [facility] [address] [address] [address] Ramya Ramey Hemoglobin Ql (U) Negative Normal NEGATIVE [facility] Comment on above: Performed By: #### U ACSIND, UMICRO #### [facility] [address] [address] [address] Ramya Raemy Ketones Ql (U) Negative Normal NEGATIVE [facility] Comment on above: Performed By: #### U ACSIND, UMICRO #### [facility] [address] [address] [address] Ramya Ramey LEUKOCYTES LARGE Abnormal NEGATIVE [facility] Comment on above: Performed By: #### U ACSIND, UMICRO #### [facility] [address] [place] [address] Dr. Ramya Ramey Nitrite Ql (U) Negative Normal NEGATIVE [facility] Comment on above: Performed By: #### U ACSIND, UMICRO #### [facility] [address] [address] [address] Ramya Ramey pH (U) 6.5 [pH] Normal 5-9 [facility] Comment on above: Performed By: #### U ACSCLOVER UMICRO #### [facility] [address] [address] [address] Ramya Ramey SPEC GRAVITY 1.010 Normal 1.005-<=1.0 25 [facility] Comment on above: Performed By: #### U ACSCLOVER UMICRO #### [facility] [address] [address] [address] Ramya Ramey UA PROTEIN Negative Normal NEGATIVE/ TRACE [facility] Comment on above: Performed By: #### U ACSCLOVER UMICRO #### [facility] [address] [place] [address] Dr. Ramya Ramey UR MICRO IND INDICATED Normal [facility] Comment on above: Performed By: #### U RHYS UMICRO #### [facility] [address] [place] [address] Dr. Ramya Ramey Urobilinogen Qn (U) 0.2 {Sariah'U}/dL Normal 0.2 - 1. 0 [facility] Comment on above: Performed By: #### U ACSCLOVER UMICRO #### [facility] [address] [place] [address] Dr. Ramya Ramey URINE MICROSCOPIC ONLYon BACTERIA LARGE Abnormal NONE SEEN [facility] Comment on above: Performed By: #### U ACSCLOVER UMICRO #### [facility] [address] [place] [address] Dr. Ramya Ramey Bacteria identified Cx Nom (U) INDICATED Normal [facility] Comment on above: Performed By: #### U ACSCLOVER UMICRO #### [facility] [address] [place] [address] Dr. Ramya Ramey CAST NONE SEEN Normal NONE SEEN [facility] Comment on above: Performed By: #### U ACSCLOVER UMICRO #### [facility] [address] [place] [address] Dr. Ramya Ramey Crystals LM Nom (Urine sed) NONE SEEN Normal NONE SEEN [facility] Comment on above: Performed By: #### U ACSIND, UMICRO #### [facility] [address] [place] [address] Dr. Ramya Ramey Epithelial cells LM Ql (Urine sed) MANY Abnormal NONE SEEN /RARE [facility] Comment on above: Performed By: #### U ACSIND, UMICRO #### [facility] [address] [address] [address] Ramya Ramey MUCOUS TRACE Abnormal NONE SEEN [facility] Comment on above: Performed By: #### U ACSCLOVER, UMICRO #### [facility] [address] [place] [address] Dr. Ramya Ramey RBC 5-10 Abnormal 0-2 [facility] Comment on above: Performed By: #### U ACSCLOVER, UMICRO #### [facility] [address] [place] [address] Dr. Ramya Ramey WBC 75-100 Abnormal NONE SEEN [facility] Comment on above: Performed By: #### U ACSIND, UMICRO #### [facility] [address] [place] [address] Dr. Ramya Ramey GROUP B STREP CULTUREon [...] F Tetracycline >=16 R F Normal [facility] Comment on above: Performed By: #### G BSCX #### [facility] [address] [place] [address] Dr. Ramya Ramey US PREG BIOPHY W [...] by: MARY CRAFT Date: 2021-09-26 10:40 Normal [facility] US PREG GROWTHon 09-26-2021 US PREG [...] by: MARY CRAFT Date: 2021-09-26 10:42 Normal [facility] US PREG BIOPHY W NON STRESSo [...] by: ZAYRA ORTIZ Date: 2021-09-20 07:12 Normal [facility] US PREG BIOPHY W NON STRESSo [...] by: MARY CRAFT Date: 2021-09-12 16:24 Normal [facility] US PREG BIOPHY W NON STRESSo [...] by: MARY CRAFT Date: 2021-09-05 16:47 Normal [facility] US PREG BIOPHY W NON STRESSo [...] by: ZAYRA ORTIZ Date: 2021-08-31 07:14 Normal [facility] US PREG BIOPHY W NON STRESSo [...] ZAYRA ORTIZ Date: 2021-08-30 07:11 Normal [facility] US PREG GROWTHon 08-30-2021 US PREG [...] ZAYRA ORTIZ Date: 2021-08-30 07:10 Normal [facility] CULTURE URINEon 08-24-2021 CULTURE URINE Culture Observations : MODERATE GROWTH OF MIXED GENITAL LEANA. NO POTENTIAL PATHOGENS SEEN. Normal [facility] Comment on above: Performed By: #### P OCGLUC #### [facility] [address] [address] [address] Ramya Ramey POINT OF CARE GLUCOSEon 08-04 Glucose [Mass/Vol] 132 mg/dL Critically high 74-106 T [facility] Comment on above: Performed By: #### H H #### [facility] [address] [address] [address] Ramya Ramey UA (CLEAN/CATCH) COKE DRAWER/MICRO I F IND.on 08-24-2021 Bilirubin Ql (U) Negative Normal NEGATIVE [facility] Comment on above: Performed By: #### U ACSIND, UMICRO #### [facility] [address] [address] [address] Ramya Ramey Clarity (U) CLEAR Normal CLEAR [facility] Comment on above: Performed By: #### U ACSIND, UMICRO #### [facility] [address] [place] [address] Dr. Ramya Ramey Color (U) YELLOW Normal YELLOW [facility] Comment on above: Performed By: #### U ACSIND, UMICRO #### [facility] [address] [address] [address] Ramya Ramey Glucose Ql (U) 250 mg/dl Abnormal NEGATIVE [facility] Comment on above: Performed By: #### U ACSIND, UMICRO #### [facility] [address] [address] [address] Ramya Ramey Hemoglobin Ql (U) TRACE-INTACT Abnormal NEGATIVE [facility] Comment on above: Performed By: #### U ACSIND, UMICRO #### [facility] [address] [address] [address] Ramya Ramey Ketones Ql (U) Negative Normal NEGATIVE [facility] Comment on above: Performed By: #### U ACSIND, UMICRO #### [facility] [address] [address] [address] Ramya Ramey LEUKOCYTES MODERATE Abnormal NEGATIVE [facility] Comment on above: Performed By: #### U ACSIND, UMICRO #### [facility] [address] [address] [address] Ramya Ramey Nitrite Ql (U) Negative Normal NEGATIVE [facility] Comment on above: Performed By: #### U ACSCLOVER UMICRO #### [facility] [address] [place] [address] Dr. Ramya Ramey pH (U) 6.0 [pH] Normal 5-9 [facility] Comment on above: Performed By: #### U ACSCLOVER UMICRO #### [facility] [address] [place] [address] Dr. Ramya Ramey SPEC GRAVITY 1.020 Normal 1.005-<=1.0 25 [facility] Comment on above: Performed By: #### U ACSCLOVER UMICRO #### [facility] [address] [place] [address] Dr. Ramya Ramey UA PROTEIN TRACE Normal NEGATIVE/ TRACE [facility] Comment on above: Performed By: #### U ACSCLOVER UMICRO #### [facility] [address] [place] [address] Dr. Ramya Ramey UR MICRO IND INDICATED Normal [facility] Comment on above: Performed By: #### U ACSCLOVER UMICRO #### [facility] [address] [place] [address] Dr. Ramya Ramey Urobilinogen Qn (U) 0.2 {Sariah'U}/dL Normal 0.2 - 1. 0 [facility] Comment on above: Performed By: #### U ACSCLOVER UMICRO #### [facility] [address] [place] [address] Dr. Ramya Ramey URINE MICROSCOPIC ONLYon BACTERIA MODERATE Abnormal NONE SEEN [facility] Comment on above: Performed By: #### U ACSCLOVER UMICRO #### [facility] [address] [place] [address] Dr. Ramya Ramey Bacteria identified Cx Nom (U) INDICATED Normal [facility] Comment on above: Performed By: #### U ACSCLOVER UMICRO #### [facility] [address] [place] [address] Dr. Ramya Ramey CAST NONE SEEN Normal NONE SEEN [facility] Comment on above: Performed By: #### U ACSIND, UMICRO #### [facility] [address] [address] [address] Ramya Ramey Crystals LM Nom (Urine sed) NONE SEEN Normal NONE SEEN [facility] Comment on above: Performed By: #### U ACSIND, UMICRO #### [facility] [address] [place] [address] Dr. Ramya Ramey Epithelial cells LM Ql (Urine sed) MANY Abnormal NONE SEEN /RARE [facility] Comment on above: Performed By: #### U ACSIND, UMICRO #### [facility] [address] [place] [address] Dr. Ramya Ramey MUCOUS NONE SEEN Normal NONE SEEN [facility] Comment on above: Performed By: #### U ACSIND, UMICRO #### [facility] [address] [place] [address] Dr. Ramya Ramey RBC 2-5 Abnormal 0-2 [facility] Comment on above: Performed By: #### U ACSIND, UMICRO #### [facility] [address] [place] [address] Dr. Ramya Ramey WBC 10-20 Abnormal NONE SEEN [facility] Comment on above: Performed By: #### U ACSIND, UMICRO #### [facility] [address] [place] [address] Dr. Ramya Ramey HEPATITIS C ANTIBODYon 07-18 Hep C Virus Ab <0.1 Normal 0.0-0.9 [facility] Comment on above: Result Comment: Nega tive: < 0.8 Indeterminate: 0.8 - 0.9 Positive: > 0.9 . The CDC recommends that a positive HCV antibody result be followed up with a HCV Nucleic Acid Amplification test (418961). Performed By: #### H CV #### [facility] [address] [place] [address] Dr. Ramya Ramey ABO AND RH TYPEon 07-17-2021 ABO and Rh group Nom (Bld) ABO Rh Typing B Rh Positive Normal [facility] Comment on above: Performed By: #### P OCGLUC #### [facility] [address] [place] [address] Dr. Ramya Ramey GLUCOSE - 1HRon 07-17-2021 Glucose [Mass/Vol] 238 mg/dL Critically high 74-106 T [facility] Comment on above: Performed By: #### G LU1HR #### [facility] [address] [place] [address] Dr. Ramya Ramey GLYCOHEMOGLOBIN A1Con 2021 ADA RECOMMENDATION ADA THERAPEUTIC TARGET 6.0 - 7.0 ACTION SUGGESTED > 7.0 Normal [facility] Comment on above: Performed By: #### H H #### [facility] [address] [place] [address] Dr. Ramya Ramey Glucose [Mass/Vol] 120 mg/dL Normal [facility] Comment on above: Performed By: #### H H #### [facility] [address] [place] [address] Dr. Ramya Ramey HbA1c (Bld) [Mass fraction] 5.8 % Normal <=6.0 [facility] Comment on above: Performed By: #### H H #### [facility] [address] [place] [address] Dr. Ramya Ramey HEMOGRAM AND PLATELon 2021 Hematocrit (Bld) [Volume fraction] 33.3 % Critically low 36.0-48.0 [facility] Comment on above: Performed By: #### H H #### [facility] [address] [place] [address] Dr. Ramya Ramey Hemoglobin (Bld) [Mass/Vol] 10.8 g/dL Critically low 12.0-16.0 [facility] Comment on above: Performed By: #### H H #### [facility] [address] [place] [address] Dr. Ramya Ramey MCH (RBC) [Entitic mass] 28.9 pg Normal 26.7-34.0 [facility] Comment on above: Performed By: #### H H #### [facility] [address] [place] [address] Dr. Ramya Ramey MCHC (RBC) [Mass/Vol] 32.4 g/dL Normal 29.9-35.2 [facility] Comment on above: Performed By: #### H H #### [facility] [address] [place] [address] Dr. Ramya Ramey MCV (RBC) [Entitic vol] 89.0 fL Normal 81.0-99.[address] [facility] Comment on above: Performed By: #### H H #### [facility] [address] [place] [address] Dr. Ramya Ramey PLT 217 103/ul Normal 150-450 [facility] Comment on above: Performed By: #### H H #### [facility] [address] [place] [address] Dr. Ramya Ramey RBC 3.74 106/ul Critically low 4.20-5.40 [facility] Comment on above: Performed By: #### H H #### [facility] [address] [place] [address] Dr. Ramya Ramey WBC 11.5 103/ul Critically high 4.0-11.0 [facility] Comment on above: Performed By: #### H H #### [facility] [address] [place] [address] Dr. Ramya Ramey CHLAMYDIA/GONOCOCCUS JAKE ( AB/URINE/PAPon 06-21-2021 Chlamydia trachomatis, JAKE Negative Normal Negative [facility] Comment on above: Performed By: #### C T/NGNA #### [facility] [address] [place] [address] Dr. Ramya Ramey Neisseria gonorrhoeae, JAKE Negative Normal Negative [facility] Comment on above: Performed By: #### C T/NGNA #### [facility] [address] [place] [address] Dr. Ramya Ramey VAGINITIS/VAGINOSIS DNA PROB [place] 06-20-2021 Teetee species Negative Normal Negative [facility] Comment on above: Performed By: #### H H #### [facility] [address] [place] [address] Dr. Ramya Ramey Gardnerella vaginalis Positive Abnormal Negative [facility] Comment on above: Performed By: #### H H #### [facility] [address] [place], [place] [address] Dr. Ramya Ramey Trichomonas vaginalis Negative Normal Negative [facility] Comment on above: Performed By: #### H H #### [facility] [address] [place], [place] [address] Dr. Ramya Ramey AFP, Maternalon 06-03-2021 Determined by Other Normal [facility] Comment on above: Performed By: #### C MIS #### [address] [address] [employer]: Antoine Wilson MD #### AAFPM #### [address] [address] [employer]: Antoine Wilson MD [facility] eleni [address] [place] [id number] [employer]: Nick Mills MD Due Date SEE NOTE Normal [facility] Comment on above: Result Comment: Resu lts for Estimated Due Date: 10 21 21 Performed By: #### C MIS #### [address] [address] [employer]: Antoine Wilson MD #### AAFPM #### [address] [address] [employer]ic: Antoine Wilson MD [facility] [address] [place] [address] [employer]ic: Nick Mills MD Family History No Normal [facility] Comment on above: Performed By: #### C MIS #### [address] [address] [employer]: Antoine Wilson MD #### AAFPM #### [address] [address] [employer]: Antoine Wilson MD [facility] [address] [place] [address] [employer]: Nick Mills MD Gestat Age (exact) 19 wks, 4 days Normal [facility] Comment on above: Performed By: #### C MIS #### [address] [address] [employer]: Antoine Wilson MD #### AAFPM #### [address] [address] [employer]ic: Antoine Wilson MD [address] [address] [employer]ic: Nick Mills MD Ins Req Matern Diab Unknown Normal [facility] Comment on above: Performed By: #### C MIS #### [address] [address] [employer]: Antoine Wilson MD #### AAFPM #### [address] [address] [employer]ic: Antoine Wilson MD [address] [phone] [employer]ic: Nick Mills MD Interpretation Screen Neg Normal [facility] Comment on above: Result Comment: (NOT E) INTERPRETATION: SCREEN NEGATIVE for open spina bifida Neural Tube Defects (NTD) Negative Pre-Test Post-Test Cutoff Neural Tube Defects Risks 1:1030 1:7440 1:250 Comments: The risk of an open neural tube defect is less than the screening cut-off. This test was developed and its performance characteristics determined by [employer]. It has not been cleared or approved by the [place] Food and Drug Administration. This test was performed in a CLIA certified laboratory and is intended for clinical purposes. Performed By: #### C MIS #### [address] [address] [employer]: Antoine Wilson MD #### AAFPM #### [address] [address] [employer]: Antoine Wilson MD [facility] [address] [place], [place] [id number] [employer] Mechanic: Nick Mills MD [age] [facility] Comment on above: Performed By: #### C MIS #### [address] [address] [employer]: Antoine Wilson MD #### AAFPM #### [address] [address] [employer]ic: Antoine Wilson MD [address] [phone] [employer]ic: Nick Mills MD Maternal Race Nonblack [facility] Comment on above: Performed By: #### C MIS #### [address] [address] [employer]: Antoine Wilson MD #### AAFPM #### [address] [address] [employer]ic: Antoine Wilson MD [address] [phone] [employer]ic: Nick Mills MD Maternal Weight 204.0 lbs. [facility] Comment on above: Performed By: #### C MIS #### [address] [address] [employer]ic: Antoine Wilson MD #### AAFPM #### [address] [address] [employer]: Antoine Wilson MD [facility] [address] [place] [address] [employer] Mechanic: Nick Mills MD MoM for AFP 1.18 [facility] Comment on above: Performed By: #### C MIS #### [address] [address] [employer]: Antoine Wilson MD #### AAFPM #### [address] [address] [employer]: Antoine Wilson MD [address] [address] [employer]ic: Nick Mills MD Number of Fetuses Tate Normal [facility] Comment on above: Performed By: #### C MIS #### [address] [address] [employer]: Antoine Wilson MD #### AAFPM #### [address] [address] [employer]: Antoine Wilson MD [address] [address] [employer]ic: Nick Mills MD Patient's AFP 55 ng/mL Normal [facility] Comment on above: Performed By: #### C MIS #### [address] [address] [employer]: Antoine Wilson MD #### AAFPM #### [address] [address] [employer]ic: Antoine Wilson MD [address] [address] [employer] Machinery Mechanic: Nick Mills MD Smoking Yes Normal [facility] Comment on above: Performed By: #### C MIS #### [address] [address] [employer] Machinery Mechanic: Antoine Wilson MD #### AAFPM #### [address] [address] [employer] Machinery Mechanic: Antoine Wilson MD [facility] [address] [place] [address] Machine Or Machinery Mechanic: Nick Mills MD Specimen See Note [facility] Comment on above: Result Comment: (NOT E) Initial sample Performed by [facility], [address] [facility] [place] [address] [email or web address], Noreen Zafar MD, Lab. Director Performed By: #### C MIS #### [facility] [address] [place] [address] Machine [employer] Machinery Mechanic: Antoine Wilson MD #### AAFPM #### [address] [address] [employer] Mach[employer] Mechanic: Antoine Wilson MD [address] [address] [employer] Machinery Mechanic: Nick Mills MD AFP, Maternalon 06-01-2021 Current Smoking YES Normal [facility] Comment on above: Performed By: #### C MIS #### [facility] [address] [address] [employer] Or Machinery Mechanic: Antoine Wilson MD #### AAFPM #### [facility] [address] [address] Machine Or Machinery Mechanic: Antoine Wilson MD [address] [id number] Machine [employer] Machinery Mechanic: Nick Mills MD Dating LMP Normal [facility] Comment on above: Performed By: #### C MIS #### [facility] [address] [address] [employer] Or Machinery Mechanic: Antoine Wilson MD #### AAFPM #### [facility] [address] [address] [employer] Machinery Mechanic: Antoine Wilson MD [address] [address] Machine Or Machinery Mechanic: Nick Mills MD Diabetic INFORMATION NOT PROVIDED [facility] Comment on above: Performed By: #### C MIS #### [facility] [address] [place] [address] [employer] Mechanic: Antoine Wilson MD #### AAFPM #### [address] [address] Machine Or Machinery Mechanic: Antoine Wilson MD [facility] [address] [place] [address] Machine Or Machinery Mechanic: Nick Mills MD Donor Egg NO [facility] Comment on above: Performed By: #### C MIS #### [address] [address] Machine Or Machinery Mechanic: Antoine Wilson MD #### AAFPM #### [address] [address] [employer] Machinery Mechanic: Antoine Wilson MD [facility] [address] [place] [address] Machine Or Machinery Mechanic: Nick Mills MD Estimated Due Date 10 21 2021 [facility] Comment on above: Performed By: #### C MIS #### [address] [address] [employer] Or Machinery Mechanic: Antoine Wilson MD #### AAFPM #### [address] [address] Machine Or Machinery Mechanic: Antoine Wilson MD [facility] [address] [place] [address] Machine Or Machinery Mechanic: Nick Mills MD Family History NO [facility] Comment on above: Performed By: #### C MIS #### [address] [address] [employer] Or Machinery Mechanic: Antoine Wilson MD #### AAFPM #### [address] [place] [address] Machine Or Machinery Mechanic: Antoine Wilson MD [facility] [address] [place], [place] [id number] Machine Or Machinery Mechanic: Nick Mills MD In [facility] Comment on above: Performed By: #### C MIS #### [address] [address] Machine Or Machinery Mechanic: Antoine Wilson MD #### AAFPM #### [facility] [address] [place] [address] Machine Or Machinery Mechanic: Antoine Wilson MD [facility] [address] [place], [place] [id number] Machine Or Machinery Mechanic: Nick Mills MD LMP date 01 14 2021 [facility] Comment on above: Performed By: #### C MIS #### [address] [address] Machine Or Machinery Mechanic: Antoine Wilson MD #### AAFPM #### [address] [address] Machine Or Machinery Mechanic: Antoine Wilson MD [address] [phone] Machine Or Machinery Mechanic: Nick Mills MD Maternal date 08 14 1997 [facility] Comment on above: Performed By: #### C MIS #### [facility] [address] [place] [address] [employer] Mach[employer] Mechanic: Antoine Wilson MD #### AAFPM #### [facility] [address] [place] [address] Machine Or Machinery Mechanic: Antoine Wilson MD [facility] [address] [place], [place] [id number] Machine Or Machinery Mechanic: Nick Mills MD Maternal Weight 204 [facility] Comment on above: Performed By: #### C MIS #### [facility] [address] [place] [address] [employer] Mach[employer] Mechanic: Antoine Wilson MD #### AAFPM #### [address] [address] Machine Or Machinery Mechanic: Antoine Wilson MD [facility] [address] [place] [address] Machine Or Machinery Mechanic: Nick Mills MD Monochorionic Twins TATE Normal [facility] Comment on above: Performed By: #### C MIS #### [address] [address] Machine Or Machinery Mechanic: Antoine Wilson MD #### AAFPM #### [address] [address] Machine Or Machinery Mechanic: Antoine Wilson MD [address] [address] Machine Or Machinery Mechanic: Nick Mills MD Patient Weight Units LBS Normal [facility] Comment on above: Performed By: #### C MIS #### [address] [address] Machine Or Machinery Mechanic: Antoine Wilson MD #### AAFPM #### [address] [address] Machine Or Machinery Mechanic: Antoine Wilson MD [address] [address] Machine Or Machinery Mechanic: Nick Mills MD Race (Maternal) WHITE Normal [facility] Comment on above: Performed By: #### C MIS #### [address] [address] Machine Or Machinery Mechanic: Antoine Wilson MD #### AAFPM #### [address] [address] Machine Or Machinery Mechanic: Antoine Wilson MD [facility] [address] [place] [address] Machine Or Machinery Mechanic: Nick Mills MD Repeat Specimen INFORMATION NOT PROVIDED [facility] Comment on above: Performed By: #### C MIS #### [facility] [address] [place] [address] [employer] Mach[employer] Mechanic: Antoine Wilson MD #### AAFPM #### [address] [address] Machine [employer] Machinery Mechanic: Antoine Wilson MD [facility] [address] [place] [address] Machine Or Machinery Mechanic: Nick Mills MD Valproic/Carbamazep INFORMATION NOT PROVIDED [facility] Comment on above: Performed By: #### C MIS #### [address] [address] Machine Or Machinery Mechanic: Antoine Wilson MD #### AAFPM #### [address] [address] Machine Or Machinery Mechanic: Antoine Wilson MD [address] [address] Machine Or Machinery Mechanic: MD Saida De [facility]ad[facility] systemsyl[facility] 06-01-2021 Send Out Report [facility] [phone] [facility] Comment on above: Performed By: #### C MIS #### [address] [address] Machine Or Machinery Mechanic: Antoine Wilson MD #### AAFPM #### [address] [address] Machine Or Machinery Mechanic: Antoine Wilson MD [facility] [address] [place] [address] Machine Or Machinery Mechanic: MD Miguel De Los Santos 05-31-2021 Test Name [facility] Comment on above: Performed By: #### C MIS #### [address] [address] [place] [address] Machine Or Machinery Mechanic: Antoine Wilson MD #### AAFPM #### [facility] [address] [place] [address] Machine Or Machinery Mechanic: Antoine Wilson MD [address] [address] Machine Or Machinery Mechanic: Nick Mills MD COVID-19, Rapidon 05-22-2021 Interpretation and review of laboratory results Abnormal [facility] SARS-CoV-2 (COVID-19) RNA JAKE+probe Ql (Unsp spec) Detected Abnormal Not Detected [facility] Comment on above: Rapid NAAT: The [...] this assay. Fact sheet for Healthcare Providers: https://www.fda.gov/media/986809/download Fact sheet for Patients: https://www.fda.gov/media/734529/download Methodology: Isothermal Nucleic Acid Amplification Results reported to the appropriate Health Department Specimen Description .NASOPHARYNGEAL SWAB [facility] [employer] Basic Metabolic Panelon 12-0 Anion gap [Moles/Vol] 14 mmol/L 9 - 17 mmol/L [facility] [employer] Calcium [Mass/Vol] 9.3 mg/dL 8.6 - 10. 4 mg/dL [facility] [employer] Chloride [Moles/Vol] 100 mmol/L 98 - 10 7 mmol/L [facility] [employer] CO2 [Moles/Vol] 19 mmol/L Low 20 - 31 mmol/L [facility] [employer] Creatinine [Mass/Vol] 0.48 mg/dL Low 0.50 - 0.90 mg/dL [facility] [employer] GFR >60 >60 mL/min [facility] GFR Non- >60 >60 mL/min [employer] GFR/1.73 sq M.predicted MDRD (S/P/Bld) [Vol rate/Area] [facility] Comment on above: Average GFR for 20-2 9 years old: 116 mL/min/1.73sq m Chronic Kidney Disease: <60 mL/min/1.73sq m Kidney failure: <15 mL/min/1.73sq m eGFR calculated using average adult body mass. Additional eGFR calculator available at: http://www.Skytap/multiple_crcl_2012.htm GFR/1.73 sq M.predicted MDRD (S/P/Bld) [Vol rate/Area] NOT REPORTED [employer] Glucose [Mass/Vol] 209 mg/dL High 70 - 99 mg/dL [facility] Interpretation and review of laboratory results Abnormal [employer] Potassium [Moles/Vol] 3.9 mmol/L 3.7 - 5.3 mmol/L [employer] Sodium [Moles/Vol] 133 mmol/L Low 135 - 144 mmol/L [employer] Urea nitrogen (BldV) [Mass/Vol] 7 mg/dL 6 - 20 mg/dL [employer] Urea nitrogen/Creatinine (Bld) [Mass ratio] 15 [facility] US OB 1ST TRIMESTER TRANSBDO BECKY ONLY [...] Doppler analysis. Somatic motion also noted by daylight driller. Uterus measures 13.4 x 7.8 x 8.7 [...] ID: [id number] Dictated by: BLAINE CHIU on Leon Apr 01, 2021 8:19:34 PM EST Transcribed by: BLAINE CHIU on Leon Apr 01, 2021 8:19:34 PM EST Finalized by: BLAINE CHIU on Leon Apr 01, 2021 8:19:34 PM EST Normal [facility] Comment on above: Order Comment: Injur y/Trauma or Illness?:Illness/Other How long have you had these symptoms (acute/chronic)?:Acute Reason for exam?:vaginal bleeding, rt pelvic pain History of cancer?:na Surgeries, chemotherapy, or radiation?:na Type of Exam?:Initial Additional signs and symptoms?:n Microscopic UrinalysisOrdere d By: Braydon May on 02-10-2021 - [employer] Phone: Amorphous, UA NOT REPORTED None [employer] [facility] Work Phone: Bacteria, UA 1+ Abnormal None [employer] Work Phone: Casts UA NOT REPORTED /LPF [employer] Work Phone: Crystals, UA NOT REPORTED None /HPF [employer] [facility] Work Phone: Epithelial Cells UA 5 TO 10 /HPF [employer] Work Phone: Interpretation and review of laboratory results Abnormal [employer] Work Phone: Mucus, UA NOT REPORTED None [employer] Phone: Other Observations UA NOT REPORTED NOT REQ. [facility] Work Phone: RBC, UA 0 TO 2 [facility] Work Phone: Renal Epithelial, UA NOT REPORTED 0 /HPF [facility] Work Phone: Trichomonas, UA NOT REPORTED None [facility] Work Phone: WBC, UA 2 TO 5 0 /HPF [facility] Work Phone: Yeast, UA NOT REPORTED None [facility] Work Phone: [facility] [employer] Work Phone: UrinalysisOrdered By: Braydon May on 02-10-2021 Bilirubin Urine Negative NEGATIVE [facility] CenterChinese Online [facility] Work Phone: Color, UA Yellow Yellow [facility] [employer] Work Phone: Glucose, Ur Negative NEGATIVE [facility] [employer] Work Phone: Interpretation and review of laboratory results Abnormal [facility] [employer] Work Phone: Ketones Ql (U) Negative NEGATIVE [facility] Work Phone: Leukocyte esterase Test strip Ql (U) 2+ Abnormal NEGATIVE [facility] [employer] Work Phone: Nitrite, Urine Negative NEGATIVE [facility] Work Phone: pH, UA 6.0 [facility] [employer] Work Phone: Protein, UA Negative NEGATIVE [facility] [employer] Work Phone: Specific [place], UA 1.020 [facility] [employer] Work Phone: Turbidity UA Clear Clear [facility] [employer] Work Phone: Urinalysis Comments [facility] [employer] Work Phone: Urine Hgb 1+ Abnormal NEGATIVE [facility] [employer] Work Phone: Urobilinogen, Urine Normal Normal [facility] [employer] Work Phone: [facility] [employer] Work Phone: hCG, quantitative, Ordered By: Braydon Yadira on 02-10-2021 hCG Quant 160 High <5 IU/L [employer] Phone: Comment on above: Non-preg premeno <=5 Postmeno <=8 Male <=3 If HCG results do not concur with clinical observations, additional testing to confirm results is recommended. Elevated results not associated with may be found in patients with other diseases such as tumors of the germ cells (testis, ovaries, etc.), bladder, pancreas, stomach, lungs, and liver. Interpretation and review of laboratory results Abnormal [employer] Phone: [employer] Phone: CBC Auto DifferentialOrdered By: Bae Jacobs on 12-10-2020 Absolute Eos # 0.10 [employer] [facility] Work Phone: Absolute Immature Granulocyte NOT REPORTED [employer] Phone: Absolute Lymph # 1.80 [employer] Work Phone: Absolute Bleckley # 0.70 [employer] Work Phone: Basophils (Bld) [#/Vol] 0.10 10*3/uL [employer] Work Phone: Basophils/100 WBC (Bld) 1 % 0 - 2 % M [employer] Phone: Differential Type YES [employer] [facility] Work Phone: Eosinophils/100 WBC (Bld) 1 % 0 - 5 % [employer] Phone: Hematocrit (Bld) [Volume fraction] 42.8 % 36 - 46 % [employer] Phone: Hemoglobin.gastrointest inal spec 1 Ql (Stl) 14.6 g/dL 12.0 - 16.0 g/dL [employer] Phone: Immature Granulocytes NOT REPORTED 0 % M [employer] Phone: Interpretation and review of laboratory results Abnormal [employer] Phone: Lymphocytes/100 WBC (Bld) 16 % 15 - 40 % [employer] Work Phone: MCH (RBC) [Entitic mass] 30.0 pg 26 - 34 pg [employer] Phone: MCHC (RBC) [Mass/Vol] 34.2 g/dL 31 - 3 7 g/dL [employer] Phone: MCV (RBC) [Entitic vol] 87.8 fL 80 - 100 fL [employer] Phone: Monocytes/100 WBC (Bld) 6 % 4 - 8 % M [facility] [employer] [facility] [employer] Work Phone: NRBC Automated NOT REPORTED per 100 WBC [facility] [facility] Work Phone: Platelet distribution width (Bld) [Ratio] 13.1 % 12.1 - 15.2 % [employer] Phone: Platelet Estimate NOT REPORTED [employer] Phone: Platelet mean volume (Bld) [Entitic vol] NOT REPORTED 6.0 - 12.0 fL [employer] Phone: Platelets (Bld) [#/Vol] 230 10*3/uL [employer] Phone: RBC (Bld) [#/Vol] 4.87 10*6/uL 4.0 - 5.2 m/uL [employer] Work Phone: RBC (Bld) [#/Vol] NOT REPORTED [facility] Phone: Segmented neutrophils/100 WBC (Bld) 76 % High 47 - 75 % [employer] Work Phone: Segs Absolute 8.80 High [employer] [facility] [employer] Work Phone: WBC (Bld) [#/Vol] 11.5 10*3/uL High [employer] Work Phone: WBC (Bld) [#/Vol] NOT REPORTED [employer] Phone: [employer] Phone: Comprehensive Metabolic Pane l w/ Reflex to MGOrdered By: Bea Jacobs on 12-10-2020 Albumin [Mass/Vol] 4.3 g/dL 3.5 - 5.2 g/dL [employer] Phone: Albumin/Globulin Ratio NOT REPORTED [employer] Phone: ALP (Bld) [Catalytic activity/Vol] 105 U/L High 35 - 104 U/L [employer] Phone: ALT [Catalytic activity/Vol] 17 U/L 5 - 33 U/L [employer] Phone: Anion gap [Moles/Vol] 12 mmol/L 9 - 17 mmol/L [employer] Phone: AST [Catalytic activity/Vol] 17 U/L <32 [employer] Phone: Bilirubin [Mass/Vol] 0.50 mg/dL 0.30 - 1.20 mg/dL [employer] Phone: Calcium [Mass/Vol] 9.3 mg/dL 8.6 - 10. 4 mg/dL [employer] Phone: Chloride [Moles/Vol] 105 mmol/L 98 - 10 7 mmol/L [employer] Phone: CO2 [Moles/Vol] 22 mmol/L 20 - 31 mmol/L [employer] Phone: Creatinine [Mass/Vol] 0.6 mg/dL 0.50 - 0.90 mg/dL [employer] Phone: Free PSA/Total PSA [Mass fraction] 7.3 g/dL 6.4 - 8.3 g/dL [employer] Phone: GFR >60 >60 mL/min [employer] Phone: GFR Non- >60 >60 mL/min [employer] Phone: GFR/1.73 sq M.predicted MDRD (S/P/Bld) [Vol rate/Area] [employer] Phone: Comment on above: Average GFR for 20-2 9 years old: 116 mL/min/1.73sq m Chronic Kidney Disease: <60 mL/min/1.73sq m Kidney failure: <15 mL/min/1.73sq m eGFR calculated using average adult body mass. Additional eGFR calculator available at: http://www.Skytap/Run My Errands_crcl_2012.htm GFR/1.73 sq M.predicted MDRD (S/P/Bld) [Vol rate/Area] NOT REPORTED [employer] Phone: Glucose [Mass/Vol] 102 mg/dL High 70 - 99 mg/dL [employer] Phone: Interpretation and review of laboratory results Abnormal [employer] Phone: Potassium [Moles/Vol] 3.9 mmol/L 3.7 - 5.3 mmol/L [employer] Phone: Sodium [Moles/Vol] 139 mmol/L 135 - 144 mmol/L [employer] Phone: Urea nitrogen (BldV) [Mass/Vol] 15 mg/dL 6 - 20 mg/dL [employer] Phone: Urea nitrogen/Creatinine (Bld) [Mass ratio] 25 High [employer] Phone: [employer] Phone: HCG Qualitative, SerumOrdere d By: Bea Jacobs on 12-10-2020 hCG Qual Negative NEGATIVE [employer] Phone: Comment on above: Specimens with hCG l evels near the threshold of the test (25 mIU/mL) may give a negative or indeterminate result. In such cases, another test should be performed with a new specimen in 48-72 hours. If early is suspected clinically in this setting, correlation with quantitative serum b-hCG level is suggested. [employer] has confirmed the use of plasma for this test. This has not been cleared or approved by the U.S. Food and Drug Administration. The FDA has determined that such clearance is not necessary. [employer] Phone: Acetaminophen Levelon 2020 Acetaminophen [Mass/Vol] <5 Low 10 - 30 ug/mL [employer] Phone: Interpretation and review of laboratory results Abnormal [employer] Phone: Basic Metabolic Panelon 07-05 Anion gap [Moles/Vol] 11 mmol/L 9 - 17 mmol/L [employer] Phone: Bun/Cre Ratio 27 High [employer] Work Phone: Calcium [Mass/Vol] 9.4 mg/dL 8.6 - 10. 4 mg/dL [employer] Phone: Chloride [Moles/Vol] 104 mmol/L 98 - 10 7 mmol/L [employer] Phone: CO2 [Moles/Vol] 26 mmol/L 20 - 31 mmol/L [employer] Phone: Creatinine [Mass/Vol] 0.71 mg/dL 0.50 - 0.90 mg/dL [employer] Phone: GFR >60 >60 mL/min [employer] Phone: GFR Non- >60 >60 mL/min [employer] Phone: GFR/1.73 sq M predicted among non-blacks MDRD (S/P/Bld) [Vol rate/Area] NOT REPORTED [employer] Phone: GFR/1.73 sq M predicted among non-blacks MDRD (S/P/Bld) [Vol rate/Area] [employer] Phone: Comment on above: Average GFR for 20-2 9 years old: 116 mL/min/1.73sq m Chronic Kidney Disease: <60 mL/min/1.73sq m Kidney failure: <15 mL/min/1.73sq m eGFR calculated using average adult body mass. Additional eGFR calculator available at: http://www.Skytap/Run My Errands_crcl_2012.htm Glucose [Mass/Vol] 113 mg/dL High 70 - 99 mg/dL [employer] Phone: Potassium [Moles/Vol] 4.0 mmol/L 3.7 - 5.3 mmol/L [employer] Phone: Sodium [Moles/Vol] 141 mmol/L 135 - 144 mmol/L [employer] Phone: Urea nitrogen [Mass/Vol] 19 mg/dL 6 - 20 mg/dL [employer] Phone: CBC Auto Differentialon 03-3 0-2020 Basophils (Bld) [#/Vol] 0.10 10*3/uL [employer] Phone: Basophils/100 WBC (Bld) 1 % 0 - 2 % M [facility] Phone: Differential Type YES [facility] Work Phone: Eosinophils (Bld) [#/Vol] 0.10 10*3/uL [employer] Phone: Eosinophils/100 WBC (Bld) 1 % 0 - 5 % [facility] Phone: Erythrocyte distribution width (RBC) [Ratio] 13.3 % 12.1 - 15.2 % [employer] Phone: Hematocrit (Bld) [Volume fraction] 40.7 % 36 - 46 % [employer] Phone: Hemoglobin (Bld) [Mass/Vol] 13.8 g/dL 12.0 - 16.0 g/dL [employer] Phone: Interpretation and review of laboratory results Abnormal [employer] Phone: Lymphocytes (Bld) [#/Vol] 3.10 10*3/uL [employer] Phone: Lymphocytes/100 WBC (Bld) 28 % 15 - 40 % [employer] Phone: MCH (RBC) [Entitic mass] 30.1 pg 26 - 34 pg [employer] Phone: MCHC (RBC) [Mass/Vol] 33.8 g/dL 31 - 3 7 g/dL [employer] Phone: MCV (RBC) [Entitic vol] 88.8 fL 80 - 100 fL [employer] Phone: Monocytes (Bld) [#/Vol] 0.50 10*3/uL [employer] Phone: Monocytes/100 WBC (Bld) 5 % 4 - 8 % M [facility] Work Phone: Platelet mean volume (Bld) [Entitic vol] NOT REPORTED 6.0 - 12.0 fL [employer] Phone: Platelets (Bld) [#/Vol] 203 10*3/uL [employer] Phone: Platelets (Bld) [#/Vol] NOT REPORTED [employer] Phone: RBC (Bld) [#/Vol] 4.59 10*6/uL 4.0 - 5.2 m/uL [employer] Phone: RBC morphology finding Nom (Bld) NOT REPORTED [employer] Phone: Segmented neutrophils/100 WBC (Bld) 65 % 47 - 75 % [employer] Work Phone: Segs Absolute 7.30 High [employer] Work Phone: WBC (Bld) [#/Vol] 11.0 10*3/uL [employer] Phone: WBC (Bld) [#/Vol] NOT REPORTED per 100 WBC [employer] Phone: WBC Morphology NOT REPORTED [facility] Work Phone: COVID-19, Rapidon 08-01-2020 SARS-CoV-2, Rapid Not Detected Not Detected [employer] Phone: Comment on above: Rapid NAAT: The [...] management decisions. Fact sheet for Healthcare Providers: https://www.fda.gov/media/231424/download Fact sheet for Patients: https://www.fda.gov/media/766390/download Methodology: Isothermal Nucleic Acid Amplification Specimen Description .NASOPHARYNGEAL SWAB [facility] Phone: Ethanolon 3 Ethanol [Mass/Vol] mg/dL <10 mg/dL [facility] Phone: Ethanol percent <0.010 % [facility] Work Phone: HCG Qualitative, Serumon hCG Qual Negative NEGATIVE [facility] Phone: Comment on above: Specimens with hCG l evels near the threshold of the test (25 mIU/mL) may give a negative or indeterminate result. In such cases, another test should be performed with a new specimen in 48-72 hours. If early is suspected clinically in this setting, correlation with quantitative serum b-hCG level is suggested. [employer] has confirmed the use of plasma for this test. This has not been cleared or approved by the U.S. Food and Drug Administration. The FDA has determined that such clearance is not necessary. Otheron 08-01-2020 Interpretation and review of laboratory results Abnormal [facility] Phone: Immature granulocytes (Bld) [#/Vol] NOT REPORTED [facility] [employer] Work Phone: Salicylateon 08-01-2020 Salicylate Lvl <1 Low 3 - 10 mg/dL [facility] Phone: TSH with Reflexon 08-01-2020 TSH Qn 3.16 m[IU]/L [facility] Phone: Urine Drug Screenon 08-02-19 Amphetamine Screen, Ur Negative NEGATIVE [facility] [employer] Work Phone: Comment on above: (Positive cutoff 500 ng/mL) Barbiturate Screen, Ur Negative NEGATIVE [facility] [employer] Work Phone: Comment on above: (Positive cutoff 200 ng/mL) Benzodiazepine Screen, Urine Negative NEGATIVE [facility] [employer] Phone: Comment on above: (Positive cutoff 150 ng/mL) Buprenorphine Urine NOT REPORTED NEGATIVE [facility] [employer] Work Phone: Cannabinoid Scrn, Ur Negative NEGATIVE [facility] [employer] Work Phone: Comment on above: (Positive cutoff 50 ng/mL) Cocaine Metabolite, Urine Negative NEGATIVE [facility] [employer] Work Phone: Comment on above: (Positive cutoff 150 ng/mL) MDMA, Urine NOT REPORTED NEGATIVE [facility] [employer] Work Phone: Methadone Screen, Urine Negative NEGATIVE [facility] [employer] Work Phone: Comment on above: (Positive cutoff 200 ng/mL) Methamphetamine, Urine Negative NEGATIVE [facility] [employer] Work Phone: Comment on above: (Positive cutoff 500 ng/mL) Opiates, Urine Negative NEGATIVE [facility] Work Phone: Comment on above: (Positive cutoff 100 ng/mL) Oxycodone Screen, Ur Negative NEGATIVE [facility] Work Phone: Comment on above: (Positive cutoff 100 ng/mL) Phencyclidine, Urine Negative NEGATIVE [facility] Work Phone: Comment on above: (Positive cutoff 25 ng/mL) Propoxyphene, Urine Negative NEGATIVE [facility] Work Phone: Comment on above: (Positive cutoff 300 ng/mL) Test Information NOT REPORTED [facility] Work Phone: Tricyclic Antidepressants, Urine Negative NEGATIVE [facility] Work Phone: Comment on above: (Positive cutoff 300 ng/mL) Drug screen results are to be used for medical purposes only. All positive results are unconfirmed. Testing for employment or legal uses should be sent to a reference laboratory for confirmation. CBC Auto Differentialon 01-03 Basophils (Bld) [#/Vol] 0.00 10*3/uL [place] Basophils/100 WBC (Bld) 1 % 0 - 2 % [place] Differential Type YES [place] Eosinophils (Bld) [#/Vol] 0.10 10*3/uL [place] Eosinophils/100 WBC (Bld) 2 % 0 - 5 % [place] Erythrocyte distribution width (RBC) [Ratio] 13.4 % 12.1 - 15.2 % [place] Hematocrit (Bld) [Volume fraction] 44.9 % 36 - 46 % [place] Hemoglobin (Bld) [Mass/Vol] 15.0 g/dL 12 - 16 g/dL [place] Lymphocytes (Bld) [#/Vol] 1.30 10*3/uL [place] Lymphocytes/100 WBC (Bld) 17 % 15 - 40 % [place] MCH (RBC) [Entitic mass] 29.7 pg 26 - 34 pg [place] MCHC (RBC) [Mass/Vol] 33.4 g/dL 31 - 3 7 g/dL [place] MCV (RBC) [Entitic vol] 88.9 fL 80 - 100 fL [place] Monocytes (Bld) [#/Vol] 0.40 10*3/uL [place] Monocytes/100 WBC (Bld) 5 % 4 - 8 % [place] Platelet mean volume (Bld) [Entitic vol] NOT REPORTED 6 - 12 fL [place] Platelets (Bld) [#/Vol] NOT REPORTED [place] Platelets (Bld) [#/Vol] 231 10*3/uL [place] RBC (Bld) [#/Vol] 5.05 10*6/uL 4 - 5.2 m/uL [place] RBC morphology finding Nom (Bld) NOT REPORTED [place] Segmented neutrophils/100 WBC (Bld) 75 % 47 - 75 % [place] Segs Absolute 5.80 [place] WBC (Bld) [#/Vol] 7.7 10*3/uL [place] WBC (Bld) [#/Vol] NOT REPORTED per 100 WBC [place] WBC Morphology NOT REPORTED [place] Comprehensive Metabolic Pane nick 01-18-2020 Albumin [Mass/Vol] 4.6 g/dL 3.5 - 5.2 g/dL [place] Albumin/Globulin [Mass ratio] NOT REPORTED [place] ALP [Catalytic activity/Vol] 101 U/L 35 - 104 U/L [place] ALT [Catalytic activity/Vol] 21 U/L 5 - 33 U/L [place] Anion gap [Moles/Vol] 10 mmol/L 9 - 17 mmol/L [place] AST [Catalytic activity/Vol] 20 U/L <32 [place] Bilirubin Ql (U) 0.55 mg/dL 0.3 - 1.2 mg/dL [place] Bun/Cre Ratio 18 [place] Calcium [Mass/Vol] 9.2 mg/dL 8.6 - 10. 4 mg/dL [place] Chloride [Moles/Vol] 106 mmol/L 98 - 10 7 mmol/L [place] CO2 [Moles/Vol] 24 mmol/L 20 - 31 mmol/L [place] Creatinine [Mass/Vol] 0.74 mg/dL 0.5 - 0.9 mg/dL [place] GFR >60 >60 mL/min [place] GFR Non- >60 >60 mL/min [place] GFR/1.73 sq M predicted among non-blacks MDRD (S/P/Bld) [Vol rate/Area] [place] Comment on above: Average GFR for 20-2 9 years old: 116 mL/min/1.73sq m Chronic Kidney Disease: <60 mL/min/1.73sq m Kidney failure: <15 mL/min/1.73sq m eGFR calculated using average adult body mass. Additional eGFR calculator available at: http://www.Sk[employer]/multiple_crcl_2012.htm GFR/1.73 sq M predicted among non-blacks MDRD (S/P/Bld) [Vol rate/Area] NOT REPORTED [place] Glucose [Mass/Vol] 124 mg/dL High 70 - 99 mg/dL [place] Interpretation and review of laboratory results Abnormal [place] Potassium [Moles/Vol] 4.1 mmol/L 3.7 - 5.3 mmol/L [place] Protein [Mass/Vol] 8.5 g/dL High 6.4 - 8.3 g/dL [place] Sodium [Moles/Vol] 140 mmol/L 135 - 144 mmol/L [place] Urea nitrogen [Mass/Vol] 13 mg/dL 6 - 20 mg/dL [place] Otheron 01-18-2020 Immature granulocytes (Bld) [#/Vol] NOT REPORTED 0 % [place] TSH with Reflexon 01-18-2020 TSH Qn 1.30 m[IU]/L [place] Basic Metabolic Panel w/ Ref stephy to MGon 04-06-2019 Anion gap [Moles/Vol] 13 mmol/L 9 - 17 mmol/L [place] Bun/Cre Ratio 19 [place] Calcium [Mass/Vol] 9.7 mg/dL 8.6 - 10. 4 mg/dL [place] Chloride [Moles/Vol] 102 mmol/L 98 - 10 7 mmol/L [place] CO2 [Moles/Vol] 23 mmol/L 20 - 31 mmol/L [place] Creatinine [Mass/Vol] 0.58 mg/dL 0.5 - 0.9 mg/dL [place] GFR >60 >60 mL/min [place] GFR Non- >60 >60 mL/min [place] GFR/1.73 sq M predicted among non-blacks MDRD (S/P/Bld) [Vol rate/Area] NOT REPORTED [place] GFR/1.73 sq M predicted among non-blacks MDRD (S/P/Bld) [Vol rate/Area] [place] Comment on above: Average GFR for 20-2 9 years old: 116 mL/min/1.73sq m Chronic Kidney Disease: <60 mL/min/1.73sq m Kidney failure: <15 mL/min/1.73sq m eGFR calculated using average adult body mass. Additional eGFR calculator available at: http://www.[employer].Z[employer]/multiple_crcl_2012.htm Glucose [Mass/Vol] 115 mg/dL High 70 - 99 mg/dL [place] Interpretation and review of laboratory results Abnormal [place] Potassium [Moles/Vol] 3.9 mmol/L 3.7 - 5.3 mmol/L [place] Sodium [Moles/Vol] 138 mmol/L 135 - 144 mmol/L [place] Urea nitrogen [Mass/Vol] 11 mg/dL 6 - 20 mg/dL [place] CBC Auto Differentialon 12-0 Basophils (Bld) [#/Vol] 0.00 10*3/uL [place] Basophils/100 WBC (Bld) 0 % 0 - 2 % M [place] Differential Type YES [place] Eosinophils (Bld) [#/Vol] 0.10 10*3/uL [place] Eosinophils/100 WBC (Bld) 2 % 0 - 5 % [place] Erythrocyte distribution width (RBC) [Ratio] 12.7 % 12.1 - 15.2 % [place] Hematocrit (Bld) [Volume fraction] 46.4 % High 36 - 46 % [place] Hemoglobin (Bld) [Mass/Vol] 15.5 g/dL 12 - 16 g/dL [place] Interpretation and review of laboratory results Abnormal [place] Lymphocytes (Bld) [#/Vol] 1.30 10*3/uL [place] Lymphocytes/100 WBC (Bld) 20 % 15 - 40 % [place] MCH (RBC) [Entitic mass] 29.7 pg 26 - 34 pg [place] MCHC (RBC) [Mass/Vol] 33.4 g/dL 31 - 3 7 g/dL [place] MCV (RBC) [Entitic vol] 89.0 fL 80 - 100 fL [place] Monocytes (Bld) [#/Vol] 0.50 10*3/uL [place] Monocytes/100 WBC (Bld) 8 % 4 - 8 % [place] Platelet mean volume (Bld) [Entitic vol] NOT REPORTED 6 - 12 fL [place] Platelets (Bld) [#/Vol] NOT REPORTED [place] Platelets (Bld) [#/Vol] 194 10*3/uL [place] RBC (Bld) [#/Vol] 5.22 10*6/uL High 4 - 5.2 m/uL [place] RBC morphology finding Nom (Bld) NOT REPORTED [place] Segmented neutrophils/100 WBC (Bld) 70 % 47 - 75 % [place] Segs Absolute 4.40 [facility] [place] WBC (Bld) [#/Vol] 6.4 10*3/uL [place] WBC (Bld) [#/Vol] NOT REPORTED per 100 WBC [place] WBC Morphology NOT REPORTED [facility] [place] D-Dimer, Quantitativeon 12- D-Dimer, Quant 0.21 [facility] [place] Comment on above: Elevated levels of [...] HCG Qualitative, Serumon hCG Qual Negative NEGATIVE [place] Comment on above: Specimens with hCG l evels near the threshold of the test (25 mIU/mL) may give a negative or indeterminate result. In such cases, another test should be performed with a new specimen in 48-72 hours. If early is suspected clinically in this setting, correlation with quantitative serum b-hCG level is suggested. [employer] has confirmed the use of plasma for this test. This has not been cleared or approved by the U.S. Food and Drug Administration. The FDA has determined that such clearance is not necessary. Otheron 04-06-2019 Immature granulocytes (Bld) [#/Vol] NOT REPORTED [place] XR CHEST STANDARD (2 VW)on 06-07-2018 Negative chest. [place] EXAM: XR CHEST (2 VW ) HISTORY: Reason for exam:->SOB COMPARISON: Chest 12/05/2018. TECHNIQUE: 2 views chest FINDINGS: Heart size normal. Lungs clear. Bony thorax and upper abdomen normal. [place] Willian, Mhpn Incoming Radiant Results From [employer]acs - 04/06/2019 2:50 PM EST EXAM: XR CHEST (2 VW) HISTORY: Reason for exam:->SOB COMPARISON: Chest 12/05/2018. TECHNIQUE: 2 views chest FINDINGS: Heart size normal. Lungs clear. Bony thorax and upper abdomen normal. IMPRESSION: Negative chest. [facility] Metabolic Pane nick 11-12-2017 Alanine aminotransferase (ALT) 22 U/L Normal 14-65 [facility] Comment on above: This test result [...] ####Unless otherwise noted, all testing performed by [place] [phone]: [id number] Director: Diego Hamilton M.D. Albumin 3.7 g/dL Normal 3.2-5.2 [facility] Comment on above: Performed By: #### C MET ####Unless otherwise noted, all testing performed by [place] [phone]: [id number] Director: Diego Hamilton M.D. Alkaline phosphatase (ALP) 99 U/L Normal 40-140 [facility] Comment on above: Performed By: #### C MET ####Unless otherwise noted, all testing performed by [address] [phone]: [id number] Director: Diego Hamilton M.D. Aspartate aminotransferase (AST) 11 U/L Normal 0-45 [facility] Comment on above: This test result [...] ####Unless otherwise noted, all testing performed by [address]CLIA: [id number] Director: Diego Hamilton M.D. Bilirubin (total) 0.2 mg/dL Low 0.3-1.2 [facility] Comment on above: Performed By: #### C MET ####Unless otherwise noted, all testing performed by [address]8[address]CLIA: [id number] Director: Diego Hamilton M.D. Calcium 9.0 mg/dL Normal 8.4-10.2 [facility] Comment on above: Performed By: #### C MET ####Unless otherwise noted, all testing performed by [address]CLIA: [id number] Director: Diego Hamilton M.D. Chloride 109 mmol/L High 98-108 [facility] Comment on above: Performed By: #### C MET ####Unless otherwise noted, all testing performed by [address]CLIA: [id number] Director: Diego Hamilton M.D. CO2 28 mmol/L Normal 21-32 [facility] Comment on above: Performed By: #### C MET ####Unless otherwise noted, all testing performed by [place] [phone]: [id number] Director: Diego Hamilton M.D. Creatinine 0.94 mg/dL Normal 0.40-1.10 [facility] Comment on above: Performed By: #### C MET ####Unless otherwise noted, all testing performed by [address], [place] [phone]: [id number] Director: Diego Hamilton M.D. eGFR (black) mL/min/{1.73_m2} Normal [facility] Comment on above: GFR Calc Result Comment: Afri can [place] GFR Calc Performed By: #### C MET ####Unless otherwise noted, all testing performed by [address] [phone]: [id number] Director: Diego Hamilton M.D. eGFR (non-black) mL/min/{1.73_m2} Normal [facility] Comment on above: Non- GFR Calc [...] otherwise noted, all testing performed by [address], [place] [phone]: [id number] Director: Diego Hamilton M.D. Glucose mass conc 102 mg/dL High 70-99 [facility] Comment on above: This test result isela [...] ####Unless otherwise noted, all testing performed by [address] [phone]: [id number] Director: Diego Hamilton M.D. Interpretation and review of laboratory results Abnormal Invalid Interpretation Code [facility] Potassium molar conc 4.0 mmol/L Normal 3.5-5.1 [facility] Comment on above: Performed By: #### C MET ####Unless otherwise noted, all testing performed by [address] [phone]: [id number] Director: Diego Hamilton M.D. Protein 7.0 g/dL Normal 6.0-8.0 [facility] Comment on above: Performed By: #### C MET ####Unless otherwise noted, all testing performed by [address] [phone]: [id number] Director: Diego Hamilton M.D. Sodium 143 mmol/L Normal 135-145 [facility] Comment on above: Performed By: #### C MET ####Unless otherwise noted, all testing performed by [address] [phone]: [id number] Director: Diego Joy, M.D. Urea nitrogen 17 mg/dL Normal 8-25 [facility] Comment on above: Performed By: #### C MET ####Unless otherwise noted, all testing performed by [address] [phone]: [id number] Director: Diego Hamilton M.D. Preg test, Urine Qualon 11-02 Preg Test, Urine Qual Negative Invalid Interpretation Code Negative [facility] Comment on above: Rapid test procedura [...] ( test) Ql (U) Negative Normal Negative [facility] Comment on above: Result Comment: Rapi [...] otherwise noted, all testing performed by [address], [place] [phone]: [id number] Director: Diego Hamilton M.D. Urinalysison 11-12-2017 Bilirubin, Urine Negative Normal NEG;NEGATIV E [facility] Comment on above: Performed By: #### P REGUR, UA ####Unless otherwise noted, all testing performed by [address] [phone]: [id number] Director: Diego Hamilton M.D. Blood, Urine Negative Normal NEG;NEGATIV E [facility] Comment on above: Performed By: #### P REGUR, UA ####Unless otherwise noted, all testing performed by [address] [phone]: [id number] Director: Diego Hamilton M.D. Character Clear Normal [facility] Comment on above: Performed By: #### P REGUR, UA ####Unless otherwise noted, all testing performed by [place] [phone]: [id number] Director: Diego Hamilton M.D. Interpretation and review of laboratory results Abnormal Invalid Interpretation Code [facility] Nitrite, Urine Negative Normal NEG;NEGATIV E [facility] Comment on above: Performed By: #### P REGUR, UA ####Unless otherwise noted, all testing performed by [address] [phone]: [id number] Director: Diego Hamilton M.D. Protein, Urine 30 mg/dL High < 30 [facility] Comment on above: Performed By: #### P REGUR, UA ####Unless otherwise noted, all testing performed by [address] [phone]: [id number] Director: Diego Hamilton M.D. RBCs, Urine < 1 Invalid Interpretation Code 0 - 5 /HPF [facility] Specific [place] 1.024 1 Invalid Interpretation Code 1.003 - 1.029 [facility] Squamous Epithelial 4 /HPF Invalid Interpretation Code 0 - 40 [facility] Urine, color Yellow Normal [facility] Comment on above: Performed By: #### P REGUR, UA ####Unless otherwise noted, all testing performed by [address] [phone]: [id number] Director: Diego Hamilton M.D. Urine, glucose presence Negative Normal NEG; NEGATIV E [facility] Comment on above: Performed By: #### P REGUR, UA ####Unless otherwise noted, all testing performed by [address] [phone]: [id number] Director: Diego Hamilton M.D. Urine, ketones presence Negative Invalid Interpretation Code NEG;NEGATIV E mg/dL [facility] Urine, leukocyte esterase presence Negative Invalid Interpretation Code Negative [facility] Urine, pH 5.0 [pH] Normal 4.5-8.0 [facility] Comment on above: Performed By: #### P REGUR, UA ####Unless otherwise noted, all testing performed by [address] [phone]: [id number] Director: Diego Hamilton M.D. Urobilinogen, Urine < 2.0 Normal <2 [facility] Comment on above: Performed By: #### P REGUR, UA ####Unless otherwise noted, all testing performed by [address] [phone]: [id number] Director: Diego Hamilton M.D. WBCs, Urine 1 /HPF Invalid Interpretation Code 0 - 5 [facility] Urinalysis, Routineon 2017 Ketone,Urine Negative Normal NEG;NEGATIV E [facility] Comment on above: Performed By: #### P REGUR, UA ####Unless otherwise noted, all testing performed by [place] [phone]: [id number] Director: Diego Hamilton M.D. Leuk.Esterase,Urine Negative Normal Negative [facility] Comment on above: Performed By: #### P REGUR, UA ####Unless otherwise noted, all testing performed by [address] [phone]: [id number] Director: Diego Hamilton M.D. Specific [place],Urine 1.024 Normal 1.003-1.029 [facility] Comment on above: Performed By: #### P REGUR, UA ####Unless otherwise noted, all testing performed by [address] [phone]: [id number] Director: Diego Hamilton M.D. Squamous Epithelial 4 /HPF Normal 0-40 [facility] Comment on above: Performed By: #### P REGUR, UA ####Unless otherwise noted, all testing performed by [address] [phone]: [id number] Director: Diego Hamilton M.D. Urine, erythrocytes in sediment by area /[HPF] Normal 0-5 [facility] Comment on above: Performed By: #### P REGUR, UA ####Unless otherwise noted, all testing performed by [address] [phone]: [id number] Director: Diego Hamilton M.D. WBC,Urine 1 /HPF Normal 0-5 [facility] Comment on above: Performed By: #### P REGUR, UA ####Unless otherwise noted, all testing performed by [address] [phone]: [id number] Director: Diego Hamilton M.D. CBC and Differentialon 11-11 Basophils Auto #/vol (Bld) 0.0 K/mcL Invalid Interpretation Code 0 - 0.2 [facility] Basophils/100 WBC Auto (Bld) 0.3 % Normal [facility] Comment on above: Performed By: #### C BCDIF, EXCEP, LIPASE ####Unless otherwise noted, all testing performed by [address] [phone]: [id number] Director: Diego Hamilton M.D. Eosinophils 0.1 K/mcL Invalid Interpretation Code 0 - 0.5 [facility] Eosinophils/100 leukocytes 0.6 % Normal [facility] Comment on above: Performed By: #### C BCDIF, EXCEP, LIPASE ####Unless otherwise noted, all testing performed by [address] [phone]: [id number] Director: Diego Hamilton M.D. Erythrocyte distribution width Auto Ratio (RBC) 13.2 % Normal 10.0-14.4 [facility] Comment on above: Performed By: #### C BCDIF, EXCEP, LIPASE ####Unless otherwise noted, all testing performed by [address] [phone]: [id number] Director: Diego Hamilton M.D. Erythrocytes (RBC) 5.13 M/mcL High 3.7 - 5.0 [facility] Hematocrit (HCT) 47.0 % High 34.4-44.8 [facility] Comment on above: Performed By: #### C BCDIF, EXCEP, LIPASE ####Unless otherwise noted, all testing performed by [address] [phone]: [id number] Director: Diego Hamilton M.D. Hemoglobin mass conc (Bld) 15.3 g/dL Normal 11.6-15.4 [facility] Comment on above: Performed By: #### C BCDIF, EXCEP, LIPASE ####Unless otherwise noted, all testing performed by [place] [phone]: [id number] Director: Diego Hamilton M.D. Lymphocytes 1.5 K/mcL Invalid Interpretation Code 1.0 - 3.7 [facility] Lymphocytes/100 leukocytes 12.1 % Normal [facility] Comment on above: Performed By: #### C BCDIF, EXCEP, LIPASE ####Unless otherwise noted, all testing performed by [place] [phone]: [id number] Director: Diego Hamilton M.D. MCH 29.8 pg Normal 27.9-33.9 [facility] Comment on above: Performed By: #### C BCDIF, EXCEP, LIPASE ####Unless otherwise noted, all testing performed by [address] [phone]: [id number] Director: Diego Hamilton M.D. MCHC mass conc (RBC) 32.6 g/dL Low 33.1-35.1 [facility] Comment on above: Performed By: #### C BCDIF, EXCEP, LIPASE ####Unless otherwise noted, all testing performed by [address] [phone]: [id number] Director: Diego Hamilton M.D. MCV 91.5 fL Normal 82.6-98.9 [facility] Comment on above: Performed By: #### C BCDIF, EXCEP, LIPASE ####Unless otherwise noted, all testing performed by [address] [phone]: [id number] Director: Diego Hamilton M.D. Monocytes 0.6 K/mcL Invalid Interpretation Code 0.1 - 0.6 [facility] Monocytes/100 leukocytes 5.1 % Normal [facility] Comment on above: Performed By: #### C BCDIF, EXCEP, LIPASE ####Unless otherwise noted, all testing performed by [address] [phone]: [id number] Director: Diego Hamilton M.D. Neutrophils 10.0 K/mcL High 1.2 - 6.9 [facility] Platelet mean volume (PMV) 11.1 fL High 7.0-10.6 [facility] Comment on above: Performed By: #### C BCDIF, EXCEP, LIPASE ####Unless otherwise noted, all testing performed by [address] [phone]: [id number] Director: Diego Hamilton M.D. Platelets 235 K/mcL Invalid Interpretation Code 162 - 402 [facility] Segmented Neut 81.9 % Invalid Interpretation Code [facility] WBC (Leukocytes) 12.2 K/mcL High 3.4 - 10.6 [facility] CBC with Diffon 11-11-2017 Basophils Auto #/vol (Bld) 0.0 K/mcL Normal 0-0.2 [facility] Comment on above: Performed By: #### C BCDIF, EXCEP, LIPASE ####Unless otherwise noted, all testing performed by [address] [phone]: [id number] Director: Diego Hamilton M.D. Eosinophils 0.1 K/mcL Normal 0-0.5 [facility] Comment on above: Performed By: #### C BCDIF, EXCEP, LIPASE ####Unless otherwise noted, all testing performed by [address]8[address]CLIA: [id number] Director: Diego Hamilton M.D. Erythrocytes (RBC) 5.13 M/mcL High 3.7-5.0 [facility] Comment on above: Performed By: #### C BCDIF, EXCEP, LIPASE ####Unless otherwise noted, all testing performed by [address]8[address]CLIA: [id number] Director: Diego Hamilton M.D. Lymphocytes 1.5 K/mcL Normal 1.0-3.7 [facility] Comment on above: Performed By: #### C BCDIF, EXCEP, LIPASE ####Unless otherwise noted, all testing performed by [address]CLIA: [id number] Director: Diego Hamilton M.D. Monocytes 0.6 K/mcL Normal 0.1-0.6 [facility] Comment on above: Performed By: #### C BCDIF, EXCEP, LIPASE ####Unless otherwise noted, all testing performed by [place] [address] [address] [facility].[place], [place] [phone]: [id number] Director: Diego Hamilton M.D. Neutrophils 10.0 K/mcL High 1.2-6.9 [facility] Comment on above: Performed By: #### C BCDIF, EXCEP, LIPASE ####Unless otherwise noted, all testing performed by [address] [phone]: [id number] Director: Diego Hamilton M.D. Platelets 235 K/mcL Normal 162-402 [facility] Comment on above: Performed By: #### C BCDIF, EXCEP, LIPASE ####Unless otherwise noted, all testing performed by [address] [phone]: [id number] Director: Diego Hamilton M.D. Segmented Neut % 81.9 % Normal [facility] Comment on above: Performed By: #### C BCDIF, EXCEP, LIPASE ####Unless otherwise noted, all testing performed by [address] [phone]: [id number] Director: Diego Hamilton M.D. WBC (Leukocytes) 12.2 K/mcL High 3.4-10.6 [facility] Comment on above: Performed By: #### C BCDIF, EXCEP, LIPASE ####Unless otherwise noted, all testing performed by [address] [phone]: [id number] Director: Diego Hamilton M.D. Exception Noticeon 8 Exception Notice Complete Metabolic Panel cancelled due to hemolysis. Will be redrawn. Normal [facility] Comment on above: Performed By: #### C BCDIF, EXCEP, LIPASE ####Unless otherwise noted, all testing performed by [address] [id number]: [id number] Director: Diego Hamilton M.D. Lipaseon 11-11-2017 Interpretation and review of laboratory results Abnormal Invalid Interpretation Code [facility] Lipase 52 U/L Low [id number] [facility] Comment on above: Performed By: #### C BCDIF, EXCEP, LIPASE ####Unless otherwise noted, all testing performed by [address] [id number]: [id number] Director: Diego Hamilton M.D. US TRANSVAGINAL WITH [...] amount of free fluid, likely physiologic. Normal [facility] Vital Signs Date Time Vital Sign Value Performing Clinician Dylan manley 07-29-2023 13:08-0400 Body height 162.6 cm Dana Mcdonough MD Work Phone: [employer] 07-29-2023 13:08-0400 Body mass index (BMI) [Ratio] 38.21 kg/m2 Dana Mcdonough MD Work Phone[facility] 07-29-2023 13:08-0400 Body weight 100.97 kg Dana [facility]cdonough MD [facility] Phone[facility] 07-29-2023 13:08-0400 Diastolic blood pressure 64 mm[Hg] Dana Mcdonough MD Work Phone: [facility] 07-29-2023 13:08-0400 Heart rate 88 /min Dana Mcdonough MD Work Phone: [facility] 07-29-2023 13:08-0400 Systolic blood pressure 105 mm[Hg] Dana Mcdonough MD Work Phone: [facility] 12-19-2022 10:04-0400 Body mass index (BMI) [Ratio] 39.51 kg/m2 Matthew Tafoya MD Work Phone: [employer] 12-19-2022 10:04-0400 Body temperature 98.29 [degF] Matthew Tafoya MD Work Phone: [employer] 12-19-2022 10:04-0400 Body weight 104.42 kg Matthew Tafoya MD Work Phone: [employer] 12-19-2022 10:04-0400 Diastolic blood pressure 82 mm[Hg] Matthew Tafoya MD Work Phone: [employer] 12-19-2022 10:04-0400 Heart rate 106 /min Matthew Tafoya MD Work Phone: [employer] 12-19-2022 10:04-0400 Respiratory rate 16 /min Matthew Tafoya MD Work Phone: [facility] [employer] 12-19-2022 10:04-0400 SaO2% (BldA) [Mass fraction] 95 % Matthew Tafoya MD Work Phone: [employer] 12-19-2022 10:04-0400 Systolic blood pressure 119 mm[Hg] Matthew Tafoya MD Work Phone: [facility] 12-06-2022 13:24-0400 Body temperature 98.42 [degF] Grahamnabila Choe [facility] 12-06-2022 13:24-0400 Diastolic blood pressure 75 mm[Hg] Graham Choe [facility] 12-06-2022 13:24-0400 Heart rate 95 /min Grahamnabila Choe [facility] 12-06-2022 13:24-0400 Mean blood pressure 95 mm[Hg] Grahamnabila Choe [facility] 12-06-2022 13:24-0400 Respiratory rate 18 /min Graham Choe [facility] 12-06-2022 13:24-0400 SaO2% (BldA) [Mass fraction] 96 % Grahamnabila Choe [facility] 12-06-2022 13:24-0400 Systolic blood pressure 136 mm[Hg] Grahamnabila Choe [facility] 06-16-2022 01:37-0500 Body height 162.6 cm Hoang Santos MD [facility] 06-16-2022 01:37-0500 Body mass index (BMI) [Ratio] 39.94 kg/m2 Hoang Santos MD Work Phone[facility] 06-16-2022 01:37-0500 Body temperature 98.01 [degF] Hoang Santos MD Work Phone[facility] [employer] 06-16-2022 01:37-0500 Body weight 105.55 kg Hoang Santos MD Work Phone[facility] [employer] 06-16-2022 01:37-0500 Diastolic blood pressure 77 mm[Hg] Hoang Santos MD Work Phone: [facility] [employer] 06-16-2022 01:37-0500 Heart rate 88 /min Hoang Santos MD Work Phone: [facility] [employer] 06-16-2022 01:37-0500 Respiratory rate 16 /min Hoang Santos MD Work Phone: [facility] [employer] 06-16-2022 01:37-0500 SaO2% (BldA) [Mass fraction] 98 % Hoang Santos MD Work Phone: [facility] [employer] 06-16-2022 01:37-0500 Systolic blood pressure 122 mm[Hg] Hoang Santos MD Work Phone: [facility] [employer] 03-13-2022 09:30-0500 Body height 162.6 cm Bea Jacobs MD Work Phone: [facility] [employer] 03-13-2022 09:30-0500 Body mass index (BMI) [Ratio] 37.81 kg/m2 Bea Jacobs MD Work Phone: [facility] [employer] 03-13-2022 09:30-0500 Body temperature 98.2 [degF] Bea Jacobs MD Work Phone: [facility] [employer] 03-13-2022 09:30-0500 Body weight 99.93 kg Bea Jacobs MD Work Phone: [facility] [employer] 03-13-2022 09:30-0500 Diastolic blood pressure 72 mm[Hg] Bea Jacobs MD Work Phone: [facility] [employer] 03-13-2022 09:30-0500 Heart rate 76 /min Bea Jacobs MD Work Phone: [facility] [employer] 03-13-2022 09:30-0500 Respiratory rate 18 /min Bea Jacobs MD Work Phone: [facility] [employer] 03-13-2022 09:30-0500 SaO2% (BldA) [Mass fraction] 96 % Bea Jacobs MD Work Phone: [facility] 03-13-2022 09:30-0500 Systolic blood pressure 116 mm[Hg] Bea Jacobs MD Work Phone: [facility] 11-29-2021 14:37-0400 Diastolic blood pressure 69 mm[Hg] Bea Jacobs MD Work Phone: [facility] [employer] 11-29-2021 14:37-0400 Heart rate 80 /min Bea Jacobs MD Work Phone: [facility] [employer] 11-29-2021 14:37-0400 SaO2% (BldA) [Mass fraction] 96 % Bea Jacobs MD Work Phone: [facility] [employer] 11-29-2021 14:37-0400 Systolic blood pressure 112 mm[Hg] Bea Jacobs MD Work Phone: [facility] [employer] 11-29-2021 14:36-0400 Body height 162.6 cm Bea Jacobs MD Work Phone: [facility] [employer] 11-29-2021 14:36-0400 Body mass index (BMI) [Ratio] 36.39 kg/m2 Bea Jacobs MD Work Phone: [facility] [employer] 11-29-2021 14:36-0400 Body temperature 99.5 [degF] Bea Jacobs MD Work Phone: [facility] [employer] 11-29-2021 14:36-0400 Body weight 96.16 kg Bea Jacobs MD Work Phone: [facility] [employer] 11-29-2021 14:36-0400 Respiratory rate 18 /min Bea Jacobs MD Work Phone: [facility] [employer] 05-22-2021 14:29-0500 Body mass index (BMI) [Ratio] 32.89 kg/m2 Hoang Santos MD Work Phone: [employer] 05-22-2021 14:29-0500 Body temperature 99.5 [degF] Hoang Santos MD Work Phone: [employer] 05-22-2021 14:29-0500 Body weight 92.44 kg Hoang Santos MD Work Phone: [employer] 05-22-2021 14:29-0500 Diastolic blood pressure 61 mm[Hg] Hoang Santos MD Work Phone: [employer] 05-22-2021 14:29-0500 Heart rate 97 /min Hoang Santos MD Work Phone: [employer] 05-22-2021 14:29-0500 Respiratory rate 18 /min Hoang Santos MD Work Phone: [employer] 05-22-2021 14:29-0500 SaO2% (BldA) [Mass fraction] 96 % Hoang Santos MD Work Phone: [employer] 05-22-2021 14:29-0500 Systolic blood pressure 117 mm[Hg] Hoang Santos MD Work Phone: [employer] 04-12-2021 18:20-0500 Body temperature 98.6 [degF] Dana Redman MD Work Phone: [employer] 04-12-2021 18:20-0500 Diastolic blood pressure 75 mm[Hg] Dana Redman MD Work Phone: [employer] 04-12-2021 18:20-0500 Heart rate 92 /min Dana Redman MD Work Phone: [employer] 04-12-2021 18:20-0500 Respiratory rate 20 /min Dana Redman MD Work Phone: [employer] 04-12-2021 18:20-0500 SaO2% (BldA) [Mass fraction] 96 % Dana Redman MD Work Phone: [employer] 04-12-2021 18:20-0500 Systolic blood pressure 118 mm[Hg] Dana Redman MD Work Phone: [employer] 04-12-2021 18:18-0500 Body height 167.6 cm Dana Redman MD Work Phone: [employer] 04-12-2021 18:18-0500 Body mass index (BMI) [Ratio] 32.28 kg/m2 Dana Redman MD Work Phone: [employer] 04-12-2021 18:18-0500 Body weight 90.72 kg Dana Redman MD Work Phone: [employer] 02-10-2021 17:39-0400 Body temperature 99.1 [degF] Braydon May MD Work Phone: [employer] Work Phone: 02-10-2021 17:27-0400 Body height 162.6 cm Braydon May MD Work Phone: [employer] Work Phone: 02-10-2021 17:27-0400 Body mass index (BMI) [Ratio] 37.75 kg/m2 Braydon May MD Work Phone: [employer] Work Phone: 02-10-2021 17:27-0400 Body weight 99.75 kg Braydon May MD Work Phone: [employer] Work Phone: 02-10-2021 17:27-0400 Diastolic blood pressure 84 mm[Hg] Braydon May MD Work Phone: [employer] Work Phone: 02-10-2021 17:27-0400 Heart rate 83 /min Braydon May MD Work Phone: [employer] Work Phone: 02-10-2021 17:27-0400 Respiratory rate 20 /min Braydon May MD Work Phone: [employer] Work Phone: 02-10-2021 17:27-0400 SaO2% (BldA) [Mass fraction] 95 % Braydon May MD Work Phone: [employer] Work Phone: 02-10-2021 17:27-0400 Systolic blood pressure 128 mm[Hg] Braydon May MD Work Phone: [employer] Work Phone: 12-10-2020 19:54-0400 Diastolic blood pressure 63 mm[Hg] Bea Jacobs MD Work Phone: [employer] Work Phone: 12-10-2020 19:54-0400 SaO2% (BldA) [Mass fraction] 97 % Bea Jacobs MD Work Phone: [employer] Work Phone: 12-10-2020 19:54-0400 Systolic blood pressure 111 mm[Hg] Bea Jacobs MD Work Phone: [employer] Phone: 08-01-2020 18:44-0400 BMI (Body Mass Index) 33.47 kg/m2 Noelneetu Reynaldo [employer] Phone: 08-01-2020 18:44-0400 Body Temperature 97.9 [degF] Bea Jacobs [employer] Work Phone: 08-01-2020 18:44-0400 Body weight 88.45 kg Noelneetu Reynaldo [employer] Phone: 08-01-2020 18:44-0400 BP Diastolic 72 mm[Hg] Bea Jacobs [employer] Work Phone: 08-01-2020 18:44-0400 BP Systolic 127 mm[Hg] Bea Jacobs [employer] Work Phone: 08-01-2020 18:44-0400 Height 162.6 cm [facility] Work Phone: 08-01-2020 18:44-0400 Pulse (Heart Rate) 93 /min Bea Jacobs [facility] Work Phone: 08-01-2020 18:44-0400 Pulse Oximetry 99 % [facility] Work Phone: 08-01-2020 18:44-0400 Respiratory Rate 16 /min [facility] Work Phone: 01-04-2020 12:33-0400 BMI (Body Mass Index) 32.96 kg/m2 [facility] 01-04-2020 12:33-0400 Body Temperature 98.1 [degF] [facility] 01-04-2020 12:33-0400 Body weight 87.09 kg [facility] 01-04-2020 12:33-0400 BP Diastolic 63 mm[Hg] [facility] 01-04-2020 12:33-0400 BP Systolic 115 mm[Hg] [facility] 01-04-2020 12:33-0400 Height 162.6 cm [facility] 01-04-2020 12:33-0400 Pulse (Heart Rate) 83 /min [facility] 01-04-2020 12:33-0400 Pulse Oximetry 97 % [facility] 12-23-2019 21:12-0400 BMI (Body Mass Index) 32.96 kg/m2 [facility] [place] 12-23-2019 21:12-0400 Body Temperature 98.71 [degF] [facility], [place] 12-23-2019 21:12-0400 Body weight 87.09 kg [facility], [place] 12-23-2019 21:12-0400 BP Diastolic 69 mm[Hg] [facility] [place] 12-23-2019 21:12-0400 BP Systolic 129 mm[Hg] [facility] [place] 12-23-2019 21:12-0400 Pulse (Heart Rate) 102 /min [facility] [place] 12-23-2019 21:12-0400 Pulse Oximetry 100 % Hoang Santos [facility], [place] 12-23-2019 21:12-0400 Respiratory Rate 18 /min [facility] [place] 10-22-2019 12:21-0400 BMI (Body Mass Index) 33.3 kg/m2 [facility], [place] 10-22-2019 12:21-0400 Body Temperature 98.8 [degF] Arin Celeste [facility], [place] 10-22-2019 12:21-0400 Body weight 88 kg [facility]in [facility] , [place] 10-22-2019 12:21-0400 BP Diastolic 67 mm[Hg] [facility] [place] 10-22-2019 12:21-0400 BP Systolic 113 mm[Hg] [facility] [place] 10-22-2019 12:21-0400 Height 162.6 cm [facility]in [facility] , [place] 10-22-2019 12:21-0400 Pulse (Heart Rate) 77 /min [facility]in [facility], [place] 10-22-2019 12:21-0400 Pulse Oximetry 98 % [facility]in [facility] , [place] 10-22-2019 12:21-0400 Respiratory Rate 18 /min Arin Celeste [facility], [place] 04-06-2019 13:49-0500 Pulse Oximetry 98 % Bea Jacobs [facility], [place] 04-06-2019 13:39-0500 BP Diastolic 92 mm[Hg] Bea Jacobs [facility], [place] 04-06-2019 13:39-0500 BP Systolic 119 mm[Hg] Bea Jacobs [facility], [place] 04-06-2019 13:37-0500 Body Temperature 97.59 [degF] Bea Jacobs [facility], [place] 04-06-2019 13:37-0500 Body weight 84.82 kg Bea Jacobs [facility], [place] 04-06-2019 13:37-0500 Pulse (Heart Rate) 77 /min [facility] 04-06-2019 13:37-0500 Respiratory Rate 16 /min [facility] En[facility] Encounter Date Encounter Type Care Provider Facility Start: 11-20-2023 End: 11-20-2023 ambulatory [facility] Start: 11-20-2023 End: 11-20-2023 ambulatory LOY R [facility] Start: 11-18-2023 End: 11-18-2023 ambulatory LOY YOGI Not Available Start: 11-12-2023 End: 11-12-2023 ambulatory [facility] Start: 11-04-2023 End: 11-04-2023 ambulatory LOY YOGI Not Available Start: 11-02-2023 End: 11-02-2023 ambulatory HARMONY Lee [facility] Start: 10-31-2023 End: 11-03-2023 Evaluation and management of inpatient ZAYRA Squires KIMBLE [facility] Start: 10-31-2023 End: 10-31-2023 ambulatory HERMAN URRUTIA [facility] Start: 10-31-2023 End: 10-31-2023 ambulatory [facility] Start: 10-22-2023 ambulatory Redd Dueñas acility:[facility] Start: 10-20-2023 End: 10-20-2023 ambulatory LOY YOGI Not Available Start: 10-13-2023 End: 10-13-2023 Emergency department patient visit GAYE Carrasco [facility] Start: 10-09-2023 End: 10-09-2023 Emergency department patient visit [facility] Start: 08-29-2023 End: 08-29-[address] [facility] Start: 08-18-2023 End: 08-18-2023 ambulatory [facility] Start: 07-29-2023 End: 07-29-2023 Office outpatient new 45 minutes Dana Mcdonough MD Work Phone: [facility] Comment on above: Type 2 diabetes ashley itus affecting in second trimester, antepartum (Primary Dx); Twin , dichorionic/diamniotic, second trimester; Obesity affecting in second trimester, unspecified obesity type; Bipolar disease during in second trimester ([facility]); Post traumatic stress disorder; Tobacco smoking affecting in second trimester Start: 07-29-2023 End: 07-29-2023 Orders Only Dawit Carter [facility] Comment on above: Type 2 diabetes ashley itus affecting in second trimester, antepartum (Primary Dx); Twin , dichorionic/diamniotic, second trimester; Bipolar disease during in second trimester ([facility]) Start: 07-29-2023 End: 07-30-2023 ambulatory ROSA ROCHA [facility] Start: 07-24-2023 Telephone encounter Thuy CRESPO [facility] Start: 07-15-2023 Telephone encounter Rosa crane RN Work Phone: [facility] Start: 07-09-2023 Orders Only Not In System Ref Prov [facility] Start: 06-30-2023 End: 06-30-2023 ambulatory LOY YOGI Not Available Start: 05-30-2023 End: 05-30-2023 ambulatory LOY YOGI Not Available Start: 05-15-2023 End: 05-15-2023 ambulatory LOY YOGI Not Available Start: 04-01-2023 End: 04-01-2023 Emergency department patient visit [facility] Start: 02-13-2023 End: 02-13-2023 ambulatory [facility] Start: 12-22-2022 End: 12-22-2022 Emergency department patient visit [facility] Start: 12-19-2022 End: 12-19-2022 Emergency department patient visit Matthew Tafoya MD Work Phone: [facility] Comment on above: Acute cystitis witho ut hematuria (Primary Dx); Vaginal yeast infection Start: 12-06-2022 End: 12-06-2022 Emergency department patient visit Graham Choe Facility:[facility] Start: 12-06-2022 End: 12-06-2022 Emergency department patient visit Graham Choe [facility] Start: 06-16-2022 End: 06-16-2022 Emergency department patient visit Hoang Santos MD Work Phone: [facility] Comment on above: Nausea and vomiting, unspecified vomiting type (Primary Dx); Intractable headache, unspecified chronicity pattern, unspecified headache type Start: 03-13-2022 End: 03-13-2022 Emergency department patient visit Bea Jacobs MD Work Phone: [facility] Comment on above: Acute midline low ba ck pain without sciatica (Primary Dx) Start: 11-29-2021 End: 11-29-2021 Emergency department patient visit Bea Jacobs MD Work Phone: [facility] Comment on above: Hordeolum externum o [...] Start: 05-31-2021 End: 06-01-2021 ambulatory DAVID LEZAMA [facility] Start: 05-22-2021 End: 05-22-2021 Emergency department patient visit Hoang Santos MD Work Phone: [facility] Comment on above: COVID-19 virus infec tion (Primary Dx); Second trimester Start: 04-12-2021 End: 04-12-2021 Emergency department patient visit Dana Redman MD Work Phone: [facility] Comment on above: Depression during pr egnancy in first trimester (Primary Dx); Dehydration Start: 04-01-2021 End: 04-01-2021 Emergency department patient visit [facility] Start: 03-25-2021 End: 03-25-2021 Emergency department patient visit [facility] Start: 02-10-2021 End: 02-10-2021 Emergency department patient visit Braydon May MD Work Phone: [facility] Comment on above: Threatened miscarria ge in early (Primary Dx) Start: 12-10-2020 End: 12-10-2020 Emergency department patient visit Bea Jacobs MD Work Phone: [facility] Comment on above: Symptoms of dehydrat ion (Primary Dx); Nausea vomiting and diarrhea Start: 08-02-2020 End: 08-07-2020 Evaluation and management of inpatient [facility] Start: 08-01-2020 End: 08-02-2020 Emergency department patient visit Bea Jacobs Work Phone: [facility] Comment on above: Suicidal thoughts (P rimary Dx); Depression with suicidal ideation Start: 05-22-2020 End: 05-26-2020 Patient encounter procedure [facility] Start: 03-22-2020 End: 03-26-2020 Patient encounter procedure [facility] Start: 01-18-2020 End: 01-18-2020 Subsequent hospital visit by physician Perla Rm MW Laboratory Comment on above: Palpitations Start: 01-04-2020 End: 01-04-2020 Patient encounter procedure [facility] Start: 01-04-2020 End: 01-04-2020 Office outpatient visit 25 minutes [facility] Work Phone: [facility] Comment on above: Anxious depression ( Primary Dx); Smoker; Weight gain; Fatigue, unspecified type; Screening cholesterol level Start: 12-23-2019 End: 12-23-2019 Emergency department patient visit Hoang Santos Work Phone: [facility] Comment on above: Bronchitis (Primary Dx) Start: 11-22-2019 End: 11-22-2019 Patient encounter procedure [facility] Start: 11-12-2019 End: 11-12-2019 Patient encounter procedure [facility] Start: 11-01-2019 End: 11-01-2019 Subsequent hospital visit by physician [facility] Comment on above: Exposure to COVID-19 virus; Cough in adult patient Start: 10-22-2019 End: 10-22-2019 Emergency department patient visit Arin Carter Work Phone: [facility] Comment on above: Acute bronchitis, un specified organism (Primary Dx); Tobacco abuse; Encounter for laboratory testing for COVID-19 virus Start: 04-06-2019 End: 04-06-2019 Emergency department patient visit Bea Danilo Reynaldo Work Phone: [facility] Comment on above: Bronchitis (Primary Dx); Acute sinusitis, recurrence not specified, unspecified location Start: 11-11-2017 End: 11-12-2017 Emergency department patient visit Aicha Méndez Facility:[facility] Start: 11-11-2017 End: 11-11-2017 Ambulatory [place] Maryjo Romerooh Work Phone: [facility] Start: 01-20-[address] [facility] Start: 01-16-2017 Ambulatory [facility] Procedures Date Procedure Procedure Detail Performing [...] Phone: Start: 08-01-2020 Assay of salicylate Chr yoelnemesioher Danilo Reynaldo Work Phone: Start: 08-01-2020 Assay of thyroid [...] qualitative Bea Jacobs Work Phone: [facility] bunleeann [place] is Plan of Treatment Date Care Activity Detail Author Start: 07-28-2024 Adult BMI Screening Adult BMI Screen ing [facility] Start: 07-28-2024 Tobacco Screening Tobacco Screening [facility] Start: 07-28-2024 End: 07-28-2024 US MFM with or without consult US MFM with or without consult Imaging Routine Twin , dichorionic/diamniotic, second trimester Bipolar disease during in second trimester ([facility]) Expected: 07/28/2024 (Approximate), Expires: 07/28/2024 [facility] Work Phone: Comment on above: Expected: 07/28/2024 (Approximate), Expires: 07/28/2024 Start: 08-29-2023 End: 08-29-2023 Patient encounter procedure 08/29/2023 1:00 PM EDT Appointment [facility] [address] [place] [id number] [facility] Start: 07-29-2023 End: 07-29-2023 Patient encounter procedure [facility] Start: 07-15-2023 End: 07-15-2023 Patient encounter procedure 07/15/2023 2:00 PM EDT Office Visit [facility] [address] [place] [phone] Gaby Bustillos, PA-C [address] [place] [id number] [facility] Start: 07-15-2023 End: 07-15-2023 ambulatory 07/15/2023 1:00 PM EDT Support Visit [facility] at [facility] [address] [place] [phone] Rosa Rocha RN [address] [facility], [address] [place] [id number] Carmen Cheung LD [facility] Start: 03-22-2023 Screening for malign ant neoplasm of cervix Pap smear [facility] Start: 01-03-2023 Influenza vaccination Influenza Vacc [facility] Start: 12-03-2022 Influenza vaccination Flu vaccine (# 1) [facility] Start: 03-29-2022 Screening for Chlamy deisy trachomatis [facility] Start: 01-03-2022 Influenza vaccination Flu vaccine (# 1) [facility] Start: 12-03-2021 Influenza vaccination Flu vaccine (# 1) [facility] Start: 05-31-2021 End: 05-31-2021 Patient encounter procedure 05/31/2021 Routine Perinatology [facility] Start: 01-17-2021 Depression Monitoring Depression Sapphire valle [facility] Start: 01-03-2021 Influenza vaccination Flu vaccine (# 1) [facility] Start: 04-04-2020 End: 01-03-2021 Complete blood count with white cell differential, manual CBC and Differential Lab Routine Fatigue, unspecified type Expected: 04/04/2020 (Approximate), Expires: 01/03/2021 [facility] Comment on above: Expected: 04/04/2020 (Approximate), Expires: 01/03/2021 Start: 04-04-2020 End: 01-03-2021 Comprehensive metabolic 2000 panel Comprehensive Metabolic Panel Lab Routine Fatigue, unspecified type Expected: 04/04/2020 (Approximate), Expires: 01/03/2021 [facility] Comment on above: Expected: 04/04/2020 (Approximate), Expires: 01/03/2021 Start: 04-04-2020 End: 01-03-2021 Magnesium [Mass/Vol] Magnesium Level Lab Routine Fatigue, unspecified type Expected: 04/04/2020 (Approximate), Expires: 01/03/2021 [facility] Comment on above: Expected: 04/04/2020 (Approximate), Expires: 01/03/2021 Start: 02-18-2020 End: 02-18-2020 Office Visit 02/18/2020 Office Visit Family Medicine Perla Rm, DO [address] [place] [id number] [facility] Start: 02-15-2020 End: 02-15-2020 Office Visit 02/15/2020 Office Visit Primary Care Juanito Hernandez MD [facility] Danielle Schof[address] [place], [place] [phone] [facility] Start: 01-04-2020 Influenza vaccination [place], [place] Start: 01-04-2020 Influenza vaccinatio n given Sequential Influenza Vaccine (#1) [facility] Start: 12-12-2019 DTaP,Tdap and Td Vaccines (7 - Td or Tdap) DTaP,Tdap and Td Vaccines (7 - Td or Tdap) [facility] Start: 12-12-2019 DTaP/Tdap/Td vaccine (7 - Td or Tdap) DTaP/Tdap/Td vaccine (7 - Td or Tdap) [facility] Start: 07-16-2019 Screening for Chlamy deisy trachomatis Chlamydia Screening [facility] Start: 01-03-2019 Influenza vaccination Flu vaccine (# 1) [place], [place] Start: 2018 Cervical cancer screen Cervical canc er screen [place], [place] Start: 2018 Screening for malign ant neoplasm of cervix [facility] Start: 2016 DTaP,Tdap and Td Vaccines (1 - Tdap) DTaP,Tdap and Td Vaccines (1 - Tdap) [facility] Start: 2016 DTaP/Tdap/Td vaccine (1 - Tdap) DTaP/Tdap/Td vaccine (1 - Tdap) [facility] Start: 08-15-2015 Adult BMI Follow Up Plan Adult BMI Follow Up Plan [facility] Start: 08-15-2015 Adult BMI Screening Adult BMI Screen ing [facility] Start: 08-15-2015 Diabetic foot examination Diabetic Foot Exam [facility] Start: 08-15-2015 Hepatitis C screening Hepatitis C sc reen [facility] Start: 2013 Chlamydia screen Chlamydia screen [place], [place] Start: 2013 COVID-19 Vaccine (1) COVID-19 Vaccin e (1) [facility] Work Phone: Start: 2013 Screening for Chlamy deisy trachomatis Chlamydia screen [facility] Start: 2012 HIV screen HIV screen [place], [place] Start: 2012 HIV screening HIV screen [facility] Start: 03-05-2010 Varicella vaccine (2 of 2 - 2-dose childhood series) Varicella vaccine (2 of 2 - 2-dose childhood series) [facility] Start: 2009 COVID-19 Vaccine (1) COVID-19 Vaccin e (1) [facility] Start: 2009 Depression Monitoring Depression Mon [facility] Start: 2009 [facility]: 2009 Tobacco Screening Tobacco Screening [facility] Start: 2008 DTaP/Tdap/Td vaccine (1 - Tdap) DTaP/Tdap/Td vaccine (1 - Tdap) [place] Start: 2008 HPV vaccine (1 - 2-d ose series) HPV vaccine (1 - 2-dose series) [facility] Start: 2008 HPV vaccine (1 - Fem man 2-dose series) HPV vaccine (1 - Female 2-dose series) [place] Start: 2008 Vaccination for maria del carmen n papillomavirus HPV Vaccines (1 - 2-dose series) [facility] Start: 08-15-2003 Pneumococcal 0-64 ye ars Vaccine (1 - PCV) Pneumococcal 0-64 years Vaccine (1 - PCV) [facility] Start: 08-15-2003 Pneumococcal 0-64 ye ars Vaccine (1 of 1 - PPSV23) Pneumococcal 0-64 years Vaccine (1 of 1 - PPSV23) [place] Start: 08-15-2003 Pneumococcal 0-64 ye ars Vaccine (1 of 2 - PPSV23) Pneumococcal 0-64 years Vaccine (1 of 2 - PPSV23) [facility] Start: 2002 COVID-19 Vaccine (1) COVID-19 Vaccin e (1) [facility] Start: 2000 History and physical examination, annual for health maintenance Wellness Visit [facility] Start: 1998 Varicella Vaccine (1 of 2 - 2-dose childhood series) Varicella Vaccine (1 of 2 - 2-dose childhood series) [facility] Start: 02-13-1998 COVID-19 Vaccine (#1) COVID-19 Vacci ne (#1) [facility] Start: 1997 Depression screening using PHQ-9 (Patient Health Questionnaire 9) score Depression Screening (PHQ9) [facility] Start: 1997 Glaucoma screening Diabetic Op hthalmology Exam [facility] Start: 1997 Hepatitis C [facility] Start: 1997 Screening for malign ant neoplasm of cervix Pap Smear [facility] Start: 1997 Tetanus vaccination Tetanus: Every 1 0yrs [facility] Start: 1997 Tobacco Counseling Tobacco Counselin g [facility] Start: 1997 Urine screening for protein Urine Microalbumin [facility] End: 01-03-2021 Cholesterol [Mass/Vol] Cholesterol, Total Lab Routine Screening cholesterol level 1 Occurrences starting 01/04/2020 until 01/03/2021 [facility] Comment on above: 1 Occurrences starti ng 01/04/2020 until 01/03/2021 End: 10-22-2019 COVID-19 COVID-19 Lab Routine One Time for 1 Occurrences starting 10/22/2019 until 10/22/2019 [place] Comment on above: One Time for 1 Occur rences starting 10/22/2019 until 10/22/2019 End: 11-01-2019 Covid-19 Ambulatory Covid-19 Ambulatory Lab Routine Exposure To Covid-19 Virus Cough in adult patient 1 Occurrences starting 11/01/2019 until 11/01/2019 [facility] [place] Comment on above: 1 Occurrences starti ng 11/01/2019 until 11/01/2019 Covid-19 Ambulatory Covid-19 Amb ulatory Lab Routine Exposure to COVID-19 virus Cough in adult patient 11/01/2019 11:25 AM EDT [facility] [place] End: 02-10-2021 Culture, Urine Culture, Urine Microbiology Routine Once for 1 Occurrences starting 02/10/2021 until 02/10/2021 [employer] Work Phone: Comment on above: Once for 1 Occurrenc es starting 02/10/2021 until 02/10/2021 Culture, Urine Culture, Urine Microbiology Routine 02/10/2021 5:41 PM EDT [employer] Work Phone: End: 12-19-2022 Culture, Urine [facility] [employer] Comment on above: Once for 1 Occurrenc es starting 12/19/2022 until 12/19/2022 End: 10-22-2019 MDI Treatment MDI Treatment Respiratory Care Routine One Time for 1 Occurrences starting 10/22/2019 until 10/22/2019 [facility] [place] Comment on above: One Time for 1 Occur rences starting 10/22/2019 until 10/22/2019 MDI Treatment MDI Treatment Respiratory Care Routine Every 6hr As Needed until discontinued starting 10/22/2019 [facility] [place] Comment on above: Every 6hr As Needed until discontinued starting 10/22/2019 End: 01-03-2021 TSH Qn TSH with Reflex Free T4 Lab Routine Weight gain Fatigue, unspecified type 1 Occurrences starting 01/04/2020 until 01/03/2021 [facility] Comment on above: 1 Occurrences starti ng 01/04/2020 until 01/03/2021 Immunizations Immunization Date Immunization Notes Care Provider Nupur west 03-02-2012 influenza virus vaccine, unspecified formulation Dawit Carter [facility] [employer] NEGATED: Highlighted row has not occurred!06-13-2020 influenza virus vaccine, unspecified formulation Graham Choe [facility] Payers Date Payer Category Payer Medicaid [employer] [facility] [id number] 2023-Present [phone] [address] [place] [address] [id number] 2023 Medicaid [id number] 2019 Unknown [id number] 2018 Medicaid [id number] 2018 Unknown [id number] 2018 Unknown [id number] 2015 Unknown [id number] 2014 Unknown [id number] 2014 Unknown [employer]IC [employer]ERCIAL [id number] 2014-Present Indemnity [id number] [id number] [id number] 1997 Unknown [id number] 2.16.840.1.015034.3.579.2.903 1997 Unknown [id number] 2.16.840.1.957251.3.579.2.900 1997 Unknown [id number] 2.16.840.1.366060.3.579.2.176 1997 Unknown [id number] 2.16.840.1.340326.3.579.2.903 1997 Unknown [id number] 2.16.840.1.426516.3.579.2.903 1997 Unknown [id number] 2.16.840.1.381769.3.579.2.175 1997 Unknown [id number] 2.16.840.1.293640.3.579.2.593 1997 Unknown [id number] 2.16.840.1.961492.3.579.2.593 1997 Unknown [id number] 2.16.840.1.165787.3.579.2.593 1997 Unknown [id number] 2.16.840.1.330775.3.579.2.593 1997 Unknown [id number] 2.16.840.1.709533.3.579.2.593 1997 Unknown [id number] 2.16.840.1.046525.3.579.2.593 1997 Unknown [id number] 2.16.840.1.531031.3.579.2.593 1997 Unknown [id number] 2.16.840.1.138091.3.579.2.593 1997 Unknown [id number] 2.16.840.1.272771.3.579.2.593 1997 Unknown [id number] 2.16.840.1.760186.3.579.2.593 1997 Unknown [id number] 2.16.840.1.631478.3.579.2.593 1997 Unknown [id number] 2.16.840.1.912619.3.579.2.593 1997 Unknown [id number] 2.16.840.1.328974.3.579.2.593 1997 Unknown [id number] 2.16.840.1.260770.3.579.2.593 1997 Unknown [id number] 2.16.840.1.354681.3.579.2.593 1997 Unknown [id number] 2.16.840.1.211334.3.579.2.593 1997 Unknown [id number] 2.16.840.1.794462.3.579.2.593 1997 Unknown [id number] 2.16.840.1.102668.3.579.2.593 1997 Unknown [id number] 2.16.840.1.419583.3.579.2.593 1997 Unknown [id number] 2.16.840.1.823650.3.579.2.593 1997 Unknown [id number] 2.16.840.1.291724.3.579.2.593 1997 Unknown [id number] 2.16.840.1.887691.3.579.2.593 1997 Unknown [id number] 2.16.840.1.690228.3.579.2.593 1997 Unknown [id number] 2.16.840.1.751069.3.579.2.727 1997 Unknown [id number] 2.16.840.1.428547.3.579.2.174 1997 Unknown [id number] 2.16.840.1.302028.3.579.2.174 1997 Unknown [id number] 2.16.840.1.772970.3.579.2.174 1997 Unknown [id number] 2.16.840.1.737995.3.579.2.174 1997 Unknown [id number] 2.16.840.1.671931.3.579.2.174 1997 Unknown [id number] 2.16.840.1.500506.3.579.2.174 1997 Unknown [id number] 2.16.840.1.613462.3.579.2.903 1997 Unknown [id number] 2.16.840.1.772051.3.579.2.1259 1997 Unknown [id number] 2.16.840.1.633804.3.579.2.1259 1997 Unknown [id number] 2.16.840.1.276119.3.579.2.1259 1997 Unknown [id number] 2.16.840.1.348314.3.579.2.9 1997 Unknown [id number] 2.16.840.1.293895.3.579.2.1258 1997 Unknown [id number] 2.16.840.1.740227.3.579.2.9 1997 Unknown [id number] 2.16.840.1.852726.3.579.2.1285 1997 Unknown [id number] 2.16.840.1.778588.3.579.2.1285 1997 Unknown [id number] 2.16.840.1.722780.3.579.2.1285 1997 Unknown [id number] 2.16.840.1.151008.3.579.2.1285 1997 Unknown [id number] 2.16.840.1.549167.3.579.2.1285 1997 Unknown [id number] 2.16.840.1.872450.3.579.2.1285 1997 Unknown [id number] 2.16.840.1.103556.3.579.2.1285 1997 Unknown [id number] 2.16.840.1.792508.3.579.2.1285 1997 Unknown [id number] 2.16.840.1.768465.3.579.2.1285 1997 Unknown [id number] 2.16.840.1.424587.3.579.2.1285 1997 Unknown [id number] 2.16.840.1.622401.3.579.2.6 1959 Self-pay [id number] 1959 Self-pay 1959 Unknown [id number] 1.2.840.122602.1.13.239.2.7.3.6 09233.315 Social History Date Type Detail Facility Tobacco smoking status RIIS Unknown if ever smoked [facility] Start: 1997 Sex Assigned At [facility] Start: 04-06-2019 End: 07-29-2023 Tobacco smoking status NHIS [facility] of tobacco use [facility]igarette [facility] Start: 04-06-2019 End: 07-29-2023 Cigarettes smoked current (pack per day) - Reported [facility] Start: 04-06-2019 End: 07-29-2023 Alcohol intake Ex-drinker (finding) [facility] [email or web address] Start: 04-06-2019 End: 12-19-2022 History SDOH Alcohol Frequency 1 [facility] Exposure to SARS-CoV-2 (event) Unable to assess [facility] Start: 11-01-2019 End: 07-29-2023 Tobacco use and exposure [facility] used [facility] Exposure to SARS-CoV-2 (event) Yes [facility] Start: 01-04-2020 End: 06-16-2022 Alcohol intake Current drinker of alcohol (finding) [facility] Start: 12-05-2018 Alcohol [facility] Start: 11-19-2021 End: 06-16-2022 Exposure to SARS-CoV-2 (event) Not sure [facility] Start: 11-29-2021 Tobacco Comment 5cigs/day 2 [facility] Phone: Start: 06-16-2022 Tobacco smoking status NHIS Ex-smoker [employer] History of tobacco use Current smoker [employer] Phone: Start: 06-16-2022 Alcohol Comment occ. Some tonight [facility] [email or web address] Phone: Start: 08-08-2020 Tobacco smoking status Heavy tobacco smoker (finding) [facility] Start: 07-29-2023 Sex Assigned At Female F [facility] Tobacco smoking status RIIS Tobacco smoking consumption unknown [facility] Start: 04-19-2023 [facility] Within the past 12 months we worried whether our food would run out before we got money to buy more. [facility] Start: 07-29-2023 Tobacco Comment Uses [employer] devices. [employer] NEGATED: Highlighted rowStart: [place] History of tobacco use Passive smoker [facility] Functional Status Date Assessment Result Facility 12-06-2022 Functional Status N/A [facility] Clinical Notes 12-10-2020 to 07-29-2023 Dawit Carter CMA - 07/29/2023 2:30 PM EDTDana Mcdonough MD - 07/29/2023 2:30 PM EDEvan [...] females Have you been seen here at [facility] in a previous ?no Recent ER visits or hospitalizations? No Bring blood sugar log or meter with you today? (Please bring them with you for every visit at [facility]) n/a Traveled outside the country in [...] was 45 minutes. 24 minutes were direct [id number]-rbgh for counseling and coordination of care during visits itself. An additional 8 minutes or for same day preparation to see the patient. Another 13 minutes were needed to prepare visit report or otherwise complete encounter Thank you for sending this patient. Dana Mcdonough MD Maternal Medicine Professor, [facility] [phone] Office [phone] Personal Cell Phone Office Note: Type 2 [...] with breakfast. metroNIDAZOLE (FLAGYL) 500 mg tablet [id number]-gqshm acid ( 19) 29 mg iron- 1 [...] become candidates for treatment. ACOG and the [place] psychiatric association advocate treatment in patients with [...] growth disorder. Smoking cessation recommended. Both the [place] and the [facility] have excellent free stop smoking programs that are accessible through [facility] web sites. If desired by patient, we [...] to the patient's reported primary care provider. Respiratory Therapy Director gave T1dm & T2dm dm handout, twin hand out and, genetic handout, and, activity in handout to patient. Patient understood that its good reading material if she has questions. documented in this encounter [facility] 07-24-2023 Miscellaneous Notes Called to schedule Diabetic Ed, patient declined to schedule.she states is seeing another Dr for this and that Dr Asher is aware. documented in this encounter [facility] 07-24-2023 Telephone encounter Note Called to schedule Diabetic Ed, patient declined to schedule.she states is seeing another Dr for this and that Dr Asher is aware. [facility] 07-15-2023 Miscellaneous Notes Summary: MFM Missed Diabetes Education Appointment Called. No answer. Message left regarding missing Diabetes Education appointment; noted was also scheduled to see Gaby CROUCH and Carmen Cheung (Nutrition Education). Requested to call [phone] Option #3 to reschedule. documented in this encounter [facility] 07-15-2023 Telephone encounter Note Summary: MFM Missed Diabetes Education Appointment Called. No answer. Message left regarding missing Diabetes Education appointment; noted was also scheduled to see Gaby CROUCH and Carmen Cheung (Nutrition Education). Requested to call [phone] Option #3 to reschedule. [facility] 12-06-2022 Hospital Discharg e instructions Patient [...] hotlines are available in the [place]: ?2-503-352-TALK ( or 226 in the [place] ?0-854-AFXHAML ( ). ?Text 891069. This is the Crisis Text Line in the [place] ? . This is a hotline for Samoan speakers. ? . This is a hotline for TTY users. ?3-892-2-U-YASHIRA ( ). This is a hotline for lesbian, delgadillo, bisexual, transgender, or questioning youth. ?For a list of hotlines in [place], visit suicide.org/hotlines/internation al/shkwby-mldviwn-bkqpptro.html Contact a crisis center or a local [...] list of crisis centers in [place], visit: suicideprevention.md How to help yourself feel better Promise [...] to anyone or being with other people. ?Domf-cq-deoj conversation is best to help them understand [...] physical and a mental health checkup. Take resi-hci-eddvxtq and prescription medicines only as told by [...] more information National Suicide Prevention Lifeline: www.suicidepreventionlifeline.or [employer] Hopeline: www.hopeline.[employer] [place] Foundation for Suicide Prevention: www.afsp.org The Yashira Project (for lesbian, delgadillo, bisexual, transgender, or questioning youth): www.thetrevorproject.org National [place] of Mental Health: www.nimh.nih.gov/health/topics/s uicide-prevention Suicide Prevention Resources: afsp.org/jgdvjtn-oghcqibgup-ybok urces Contact a health care provider if: [...] provider. Document Revised: 11/15/2021 Document Reviewed: 08/30/2021 [employer] Patient Education 2022 [employer]. Follow Up Care 12/06/2022 13:21:39 With:[facility] Address:Unknown When:12/09/2022 16:28:40 Comments:Follow safety plan. Return to the emergency department with any worsening symptoms. With:GAYE JOSUE Address: [address] [facility] (1) When:12/09/2022 16:28:22 Comments:Call the office [...] and drug interactions with your pharmacist. Call 1 or go to the nearest Emergency Department if you develop any new or worsening symptoms. Repeat liver function testing in 1 month. [facility] 12-06-2022 Evaluation + Plan note Extrac rayray from: Title:ED Note Author:Graham Choe DO Date: Situational stress (F43.9: R eaction to severe stress, unspecified) Orders: Automated Diff CBC w/ Auto Diff Comprehensive Metabolic Panel Drug Screen Urine ECG 12 Lead Adult eGFR Ethanol Level U Beta Hcg Qual [facility]07-28-2022 History of Present illness Narrative* Edelmira Jacobs RN - 11/29/2021 2:40 PM EDT Home med list reviewed with patient. [facility] [email or web address] Phone: [phone]) 631-696908-08-2021 History of Present illness Narrative* Perla Cunningham RN - 12/10/2020 8:28 PM EDT Discharge instructions given. Pt sent home with 1 zofran. 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 All questions answered. documented in this encounterDunlap [facility] Hospitaltrend.ly Phone: evaluation note* Diagnosis Symptoms of dehydration- Primary Nausea vomiting and diarrhea Nausea with vomiting documented in this encounter [employer] Phone: evaluation note* Diagnosis Threatened miscarriage in early - Primary Threatened , unspecified as to episode of care documented in this encounter [employer] Phone: evaluation note* Diagnosis Depression during in first trimester- Primary Dehydration documented in this encounter [employer] Phone: evaluation note* Diagnosis COVID-19 virus infection- Primary Second trimester documented in this encounter [employer] Phone: evaluvqmuj note* Diagnosis Hordeolum externum of right lower eyelid- Primary Hordeolum externum documented in this encounter [facility] [email or web address] Phone: evaluation note* Diagnosis Acute midline low back pain without sciatica- Primary documented in this encounter [facility] Phone: evaluation note* Diagnosis Nausea and vomiting, unspecified vomiting type- Primary Intractable headache, unspecified chronicity pattern, unspecified headache type documented in this encounter [employer] Phone: evaluation note* Diagnosis Acute cystitis without hematuria- Primary Acute cystitis Vaginal yeast infection Candidiasis of vulva and vagina documented in this encounter [facility] FloqqEvaluation note* Diagnosis Type 2 diabetes mellitus affecting in second trimester, antepartum- Primary Twin , dichorionic/diamniotic, second trimester Bipolar disease during in second trimester ([facility]) [facility] Diagnosis Type 2 diabetes mellitus affecting in second trimester, antepartum- Primary Twin , dichorionic/diamniotic, second trimester Obesity affecting in second trimester, unspecified obesity type Bipolar disease during in second trimester ([facility]) Post traumatic stress disorder Posttraumatic stress disorder Tobacco smoking affecting in second trimester [facility] Narrative No data available for this section [facility]* Attachments The following attachments cannot be sent through Care Everywhere. * Nausea and Vomiting (Greek) * Diarrhea (Greek) * Oral Rehydration (Greek) documented in this [place] [facility] Phone: Hospital Discharge instructions* Attachments The following attachments cannot be sent through Care Everywhere. * Miscarriage: Threatened (Greek) documented in this [place] [facility] [facility] Phone: Hospital Discharge instructions* Attachments The following attachments cannot be sent through Care Everywhere. * Dehydration (Greek) documented in this [facility] [facility] Phone: Hospital Discharge instructions* Attachments The following attachments cannot be sent through Care Everywhere. * Coronavirus Disease (COVID-19): General Info (Greek) documented in this [place] [facility] Phone: Hospital Discharge instructions* Attachments The following attachments cannot be sent through Care Everywhere. * Styes and Chalazia (Greek) documented in [facility] [email or web address] Phone: Hospital Discharge instructions* Attachments The following attachments cannot be sent through Care Everywhere. * Back Pain (Greek) * Back: Stretches: Exercises (Greek) documented in this [facility] [email or web address] Phone: Hospital Discharge instructions* Attachments The following attachments cannot be sent through Care Everywhere. * Headache (Greek) documented in this [facility] [email or web address] Phone: Hospital Discharge instructions* Attachments The following attachments cannot be sent through Care Everywhere. * Vaginal Yeast Infection (Greek) documented in this encounterB[facility]ITALInstructionsNot on file documented in this encounterProCrestwood [facility] Center MarkTheGlobe SystemInstructionsNot on file documented in this encounterProCrestwood Medical Center MarkTheGlobe SystemInstructionsNot on file documented in this encounterProCrestwood Medical Center MarkTheGlobe SystemInstructionsNot on file documented in this encounterProSelect Medical [facility] SystemProgress note No data available for this section [facility] Summary Purpose Family History No Family History [...] FoundDocuments on File Type Date Recorded Patient Virtual Reality Specialist Expl anation Advance Directives and Living Will Power of Registry Rn Documents on File Type Date Recorded Patient Virtual Reality Specialist Expl anation ACP-Advance Directive ACP-Power of Registry Rn Documents on File Type Date Recorded Patient Virtual Reality Specialist Expl anation Advance Directives and Livin g [...] be sent through Care Everywhere. * Sinusitis (Greek) * Sinus Rinse (Greek) * Bronchitis (Greek) documented in this encounter* Attachments The following attachments cannot be sent through Care Everywhere. * Smoking: Stopping (Greek) * Bronchitis (Greek) * Coronavirus Disease (COVID-19): General Info (Greek) documented in this encounter* Attachments The following attachments cannot be sent through Care Everywhere. * Bronchitis (Greek) documented in this encounter Assessments Diagnosis Bronchitis- [...] trimester Bipolar disease during in second trimester ([facility]) Procedures MFM with or without consult Dana Mcdonough MD [address] [place] [address] [facility] [address] [place] [address] Referral ID Status Reason Start Date Expiration Date V isits Requested Visits Authorized [id number] Pending Review 07/29/2023 07/28/2024 1 1 Additional Source Comments INFORMATION SOURCE (unrecogn ized section and content) DATE CREATED AUTHOR 10/29/2017 [facility] DATE CREATED AUTHOR AUTHOR'S ORGANIZ ATION 11/26/2017 [facility] DATE CREATED AUTHOR AUTHOR'S ORGANIZ ATION 01/04/2020 [facility] DATE CREATED AUTHOR AUTHOR'S ORGANIZ ATION 05/26/2020 [facility] DATE CREATED AUTHOR AUTHOR'S ORGANIZ ATION 08/07/2020 [facility] DATE CREATED AUTHOR AUTHOR'S ORGANIZ ATION 04/08/2021 [facility] DATE CREATED AUTHOR AUTHOR'S ORGANIZ ATION 07/14/2021 [facility] DATE CREATED AUTHOR AUTHOR'S ORGANIZ ATION 04/27/2022 [facility] DATE CREATED AUTHOR AUTHOR'S ORGANIZ ATION 12/07/2022 [facility] DATE CREATED AUTHOR AUTHOR'S ORGANIZ ATION 10/10/2023 [facility] DATE CREATED AUTHOR AUTHOR'S ORGANIZ ATION 10/19/2023 [facility] DATE CREATED AUTHOR AUTHOR'S ORGANIZ ATION 10/29/2023 [facility] DATE CREATED AUTHOR AUTHOR'S ORGANIZ ATION 11/22/2023 [facility] DATE CREATED AUTHOR AUTHOR'S ORGANIZ ATION 11/24/2023 [facility] Reason for Visit (unrecogniz ed section [...] On 12/10/20 at 1915, For 1 dose 191 (New Bag - Prov ider: Ricci Clancy RN)2020 (Stopped - Provider: Perla Cunningham, MIRACLE) ondansetron (ZOFRAN) injection 4 mg (COMPLETED) 4 mg, Intravenous, ONCE, On 12/10/20 at 1915, For 1 dose 1915 (Given - Provid er: Ricci Clancy RN) ondansetron (ZOFRAN-ODT) disintegrating tablet 4 mg (COMPLETED) 4 mg, Oral, ONCE, On 12/10/20 at 2015, For 1 dose, Send home with pt [...] 30 mg, IntraVENous, ONCE, 1 dose, On Leon 06/16/22 at 0200, Do not administer for more than 5 days. 0225 (Given - Provid er: Deloris Pinto RN) ondansetron (ZOFRAN) injection 4 mg (COMPLETED) 4 mg, IntraVENous, ONCE, 1 dose, On Leon 06/16/22 at 0200 022 (Given - Provid [...] Care Teams (unrecognized sec tion and content) Charge Gang Weigher Relationship Specialty Start Date End Date Gaye Josue, [employer] - [employer] [address] [place] [address] PCP - General Family Nurse Practitioner 02/10/21 Charge Gang Weigher Relationship Specialty Start Date End Date Gaye Josue APRN [facility] [address] [place] [address] PCP - General Family Nurse Practitioner 02/10/21 Charge Gang Weigher Relationship Specialty Start Date End Date Gaye Josue APRN [employer] [address] [place] [address] PCP - General Family Nurse Practitioner 02/10/21 Charge Gang Weigher Relationship Specialty Start Date End Date Gaye Josue APRN [employer] [address] [place] [address] PCP - General Family Nurse Practitioner 02/10/21 Charge Gang Weigher Relationship Specialty Start Date End Date Jacobo Johnson DO [address] [place] [address] PCP - General Family Medicine 07/29/23 Charge Gang Weigher Relationship Specialty Start Date End Date Jacobo Johnson DO [address] [place] [address] PCP - General Family Medicine 07/29/23 FOR [...] BE BASED ON THE PRIMARY CLINICAL RECORDS. [facility] [employer] [facility] provides no warranty or guarantee of the accuracy or completeness of information in this document.
[2023-11-25 14:58] VITALS: BP 112/63; PULSE 98
== END 2023-11-25 16:05 | disposition home or self-care (01) ==
LOC: FBCO 07:05 → FBC 14:52
PROVIDERS: PCP Family Medicine; Visit Provider Obstetrics & Gynecology
DX: O30.003 Twin pregnancy, unspecified number of placenta and unspecified number of amniotic sacs, third trimester (principal); Z3A.33 33 weeks gestation of pregnancy
CPT/HCPCS: 59025

== ENCOUNTER 2023-11-28 07:36 | Outpatient (OUT) | payer OTHER, SELFPAY ==
--- OUTSIDE RECORDS SUMMARY | 2023-11-28 07:40 | XMS_ITS | CCD ---
Author Organization [facility] Inform ion Partnership [facility] Care Team Providers Care Integrity Manager Name Role Phone GAYE JOSUE Unavailable Unavailable GAYE JOSUE Unavailable Unavailable Unavailable Unavailable Unavailable Honey, Mayfair Maryjo Unavailable Unavailable Honey, Mayfair Maryjo Unavailable Unavailable Unavailable Primary Care Provider UnavailJuanito Rodriges Primary Care Provider [phone] JUANITO HERNANDEZ Attending U navailable HUY, MONICATH [...] Referring Unavailable LIAT, GAYE [facility], Gaye Primary Care Provider [facility] - [facility], Gaye Primary Care Provider MISC, DR AKINS Primary Care Unavailable YOGI, DR LOMELI Admitting Unavailable YOIG, DR LOMELI Attending Unavailable KARASIK, DR ACHARYA [...] Care Unavailable DANA MCDONOUGH Attending Unavailable YOGI, LOY R Referring Unavailable OLEWILER, JACOBO J Primary Care Unavailable ROSA ROCHA Attending Unavailable YOGI, LOY R Referring Unavailable OLEWILER, JACOBO J Primary Care Unavailable YOGI, LOY R Referring Unavailable OLEWILER, JACOBO J Primary Care Unavailable TRISH ZIMMERMAN Attending Unavailable TRISH ZIMMERMAN Attending Unavailable YOGI, LOY R Referring Unavailable OLEWILER, JACOBO J Primary Care Unavailable HERMAN URURTIA Attending Unavailable AMBIKAWILER, JACOBO J Referring Unavailable [...] Medication Allergies] Propensity to adverse reactions (disorder) [facility] Repository Medications Current Medications Medication Drug [...] days 10 tablet 0 10/22/2019 10/27/2019 Active hi937-vnze-zmzgh acid ( 19) 29 mg iron- 1 mg tablet,chewable (2 sources) we100-ojki-jjsaq acid ( 19) 29 mg iron- 1 [...] 0 Active take 2 tablets by mo [facility] twice daily as needed clonazePAM (KLONOPIN) 1 [...] mark th every four hours as needed Inbraceiguyupkk-HXPG-NB (DAYQUIL PO) Don e 1 tablet by [...] 11-03-2023 Glucose [Mass/Vol] 127 mg/dL High 65-99 [facility] Glucose [Mass/Vol] 172 mg/dL High 65-99 [facility] Glucose Glucometer (BldC) [M ass/Vol]on 11-02-2023 Glucose [Mass/Vol] 162 mg/dL High 65-99 [facility] Glucose [Mass/Vol] 160 mg/dL High 65-99 [facility] Glucose [Mass/Vol] 157 mg/dL High 65-99 [facility] Glucose [Mass/Vol] 189 mg/dL High 65- [facility] Glucose [Mass/Vol] 137 mg/dL High 65-99 [facility] VAGINITIS PANEL PCRon 2023 VAGINITIS PANEL [...] clinical presentation to determine patient diagnosis. Normal [facility] Comment on above: Performed By: #### C BCA, CMP, THYR, HA1C, 05032-5 #### [facility] ([id number]) [address] [place] [address], [address] [place] [address] Glucose Glucometer (BldC) [M ass/Vol]on 11-01-2023 Glucose [Mass/Vol] 137 mg/dL High 65-99 [facility] Glucose [Mass/Vol] 138 mg/dL High 65- [facility] Glucose [Mass/Vol] 147 mg/dL High 65-99 [facility] Glucose [Mass/Vol] 172 mg/dL High 65-99 [facility] Glucose [Mass/Vol] 98 mg/dL Normal 65-99 [facility] CBC AND AUTO DIFFon 10-31-19 24 ABSOLUTE BASOPHIL 0.0 X10E9/L Normal 0.0-0.2 [facility] Comment on above: Performed By: #### C BCA, CMP, THYR, HA1C, 74188-5 #### [facility] ([id number]) [address], [address] [place] [address] ABSOLUTE NEUTROPHIL 5.2 X10E9/L Normal 1.5-6.6 [facility] Comment on above: Performed By: #### C BCA, CMP, THYR, HA1C, 31375-3 #### [facility] ([id number]) [address], [address] [place] [address] Basophils/100 WBC (Bld) 0.3 % Normal [facility] Comment on above: Performed By: #### C BCA, CMP, THYR, HA1C, 11553-4 #### [facility] ([id number]) [address], [address] [place] [address] Eosinophils (Bld) [#/Vol] 0.0 10*3/uL Normal 0.0-0.4 [facility] Comment on above: Performed By: #### C BCA, CMP, THYR, HA1C, 47658-8 #### [facility] ([id number]) [address], [address] [place] [address] Eosinophils/100 WBC (Bld) 0.3 % Normal [facility] Comment on above: Performed By: #### C BCA, CMP, THYR, HA1C, 73103-1 #### [facility] ([id number]) [address], [address] [place] [address] Erythrocyte distribution width (RBC) [Ratio] 13.5 % Normal 11.5-15.0 [facility] Comment on above: Performed By: #### C BCA, CMP, THYR, HA1C, 14902-1 #### [facility] ([id number]) [address] [address] [place] [address] Hematocrit (Bld) [Volume fraction] 30.4 % Low 35-47 [facility] Comment on above: Performed By: #### C BCA, CMP, THYR, HA1C, 24469-0 #### [facility] ([id number]) [address] [place] [address] Hemoglobin (Bld) [Mass/Vol] 10.2 g/dL Low 11.7-15.5 [facility] Comment on above: Performed By: #### C BCA, CMP, THYR, HA1C, 39070-7 #### [facility] ([id number]) [address] [place] [address] Lymphocytes (Bld) [#/Vol] 1.5 10*3/uL Normal 1.0-3.5 [facility] Comment on above: Performed By: #### C BCA, CMP, THYR, HA1C, 58227-8 #### [facility] ([id number]) [address] [address] Lymphocytes/100 WBC (Bld) 20.8 % Normal [facility] Comment on above: Performed By: #### C BCA, CMP, THYR, HA1C, 96372-4 #### [facility] ([id number]) [address] [place] [address] MCH (RBC) [Entitic mass] 26.6 pg Low 27-34 [facility] Comment on above: Performed By: #### C BCA, CMP, THYR, HA1C, 38513-9 #### [facility] ([id number]) [address] [address] [place] [address] MCHC (RBC) [Mass/Vol] 33.4 g/dL Normal 32-36 [facility] Comment on above: Performed By: #### C BCA, CMP, THYR, HA1C, 47302-1 #### [facility] ([id number]) [address], [address] [place] [address] MCV (RBC) [Entitic vol] 80 fL Normal 80-100 [facility] Comment on above: Performed By: #### C BCA, CMP, THYR, HA1C, 33810-0 #### [facility] ([id number]) [address], [facility] [address] [place] [address] Monocytes (Bld) [#/Vol] 0.4 10*3/uL Normal 0-0.9 [facility] Comment on above: Performed By: #### C BCA, CMP, THYR, HA1C, 45122-8 #### [facility] ([id number]) [address], [address] [place] [address] Monocytes/100 WBC (Bld) 5.5 % Normal [facility] Comment on above: Performed By: #### C BCA, CMP, THYR, HA1C, 80209-6 #### [facility] ([id number]) [address], [address] [place] [address] Neutrophils/100 WBC (Bld) 73.1 % Normal [facility] Comment on above: Performed By: #### C BCA, CMP, THYR, HA1C, 40696-3 #### [facility] ([id number]) [address], [address] [place] [address] Platelet mean volume (Bld) [Entitic vol] 10.1 fL Normal 7-12 [facility] Comment on above: Performed By: #### C BCA, CMP, THYR, HA1C, 17805-7 #### [facility] ([id number]) [address], [address] [place] [address] Platelets (Bld) [#/Vol] 184 10*3/uL Normal 150-450 [facility] Comment on above: Performed By: #### C BCA, CMP, THYR, HA1C, 62793-8 #### [facility] ([id number]) [address], [address] [place] [address] RBC COUNT 3.83 X10E12/L Normal 3.80-5.20 [facility] Comment on above: Performed By: #### C BCA, CMP, THYR, HA1C, 59101-4 #### [facility] ([id number]) [address], [address] [address] WBC (Bld) [#/Vol] 7.1 10*3/uL Normal 4.0-11.0 [facility] Comment on above: Performed By: #### C BCA, CMP, THYR, HA1C, 04585-3 #### [facility] ([id number]) [address], [address] [place] [address] CHLAMYDIA/GC BY PCRon 2023 CHLAMYDIA/GC BY PCR [...] are dependent on adequate specimen collection. Normal [facility] Comment on above: Performed By: #### C BCA, CMP, THYR, HA1C, 12301-2 #### [facility] ([id number]) [address], [address] [place] [address] COMPREHENSIVE METABOLIC PANE Nick 10-31-2023 Albumin [Mass/Vol] 3.0 g/dL Low 3.2-5.3 [facility] Comment on above: Performed By: #### C BCA, CMP, THYR, HA1C, 40470-9 #### [facility] ([id number]) [address], [address] [place] [address] ALP [Catalytic activity/Vol] 109 U/L Normal 39-130 [facility] Comment on above: Performed By: #### C BCA, CMP, THYR, HA1C, 12402-6 #### [facility] ([id number]) [address], [address] [place] [address] ALT [Catalytic activity/Vol] 13 U/L Normal 0-31 [facility] Comment on above: Performed By: #### C BCA, CMP, THYR, HA1C, 86517-0 #### [facility] ([id number]) [address], [address] [place] [address] Anion gap [Moles/Vol] 10 mmol/L Normal 5-15 [facility] Comment on above: Performed By: #### C BCA, CMP, THYR, HA1C, 76051-4 #### [facility] ([id number]) [address], [address] [place] [address] AST [Catalytic activity/Vol] 19 U/L Normal 0-41 [facility] Comment on above: Performed By: #### C BCA, CMP, THYR, HA1C, 20791-6 #### [facility] ([id number]) [address], [address] [place] [address] Bilirubin [Mass/Vol] 0.4 mg/dL Normal 0.3-1.2 [facility] Comment on above: Performed By: #### C BCA, CMP, THYR, HA1C, 49553-9 #### [facility] ([id number]) [address], [address] [place] [address] Calcium [Mass/Vol] 8.4 mg/dL Low 8.5-10.5 [facility] Comment on above: Performed By: #### C BCA, CMP, THYR, HA1C, 01288-4 #### [facility] ([id number]) [address], [address] [place] [address] Chloride [Moles/Vol] 106 mmol/L Normal 98-109 [facility] Comment on above: Performed By: #### C BCA, CMP, THYR, HA1C, 49490-0 #### [facility] ([id number]) [address], [address] [place] [address] CO2 [Moles/Vol] 20 mmol/L Low 22-32 [facility] Comment on above: Performed By: #### C BCA, CMP, THYR, HA1C, 33751-1 #### [facility] ([id number]) [address] [address] [place] [address] Creatinine [Mass/Vol] 0.53 mg/dL Normal 0.40-1.00 [facility] Comment on above: Result Comment: METH OD TRACEABLE TO IDMS STANDARD Performed By: #### C BCA, CMP, THYR, HA1C, 44603-6 #### [facility] ([id number]) [address] [place] [address] eGFR (CKD-EPI) NON-RACE DEPENDENT >90 Normal >59 [facility] Comment on above: Result Comment: Reported eGFR is based on the CKD-EPI 2020 equation that does not use a race coefficient. Performed By: #### C BCA, CMP, THYR, HA1C, 70899-7 #### [facility] ([id number]) [address] [address] [place] [address] Glucose [Mass/Vol] 134 mg/dL High 65-99 [facility] Comment on above: Performed By: #### C BCA, CMP, THYR, HA1C, 18497-0 #### [facility] ([id number]) [address] [address] [place] [address] Potassium [Moles/Vol] 3.7 mmol/L Normal 3.5-5.0 [facility] Comment on above: Performed By: #### C BCA, CMP, THYR, HA1C, 90571-3 #### [facility] ([id number]) [address], [address] [place] [address] Protein [Mass/Vol] 5.9 g/dL Low 6.0-8.0 [facility] Comment on above: Performed By: #### C BCA, CMP, THYR, HA1C, 79096-5 #### [facility] ([id number]) [address], [address] [place] [address] Sodium [Moles/Vol] 136 mmol/L Normal 134-146 [facility] Comment on above: Performed By: #### C BCA, CMP, THYR, HA1C, 12406-3 #### [facility] ([id number]) [address], [address] [place] [address] Urea nitrogen [Mass/Vol] 7 mg/dL Normal 5-23 [facility] Comment on above: Performed By: #### C BCA, CMP, THYR, HA1C, 59842-0 #### [facility] ([id number]) [address], [address] [place] [address] DRUG SCREEN, URINEon 024 AMPHETAMINE/METHAMP Negative Normal NEG [facility] Comment on above: Result Comment: AMPH /METH screening cut off = 1000 ng/mL Performed By: #### D STAPLES #### [facility] ([id number]) [address], [address] [place] [address] BARBITURATES Negative Normal NEG [facility] Comment on above: Result Comment: Vandana iturates screening cut off value = 200 ng/mL Performed By: #### D STAPLES #### [facility] ([id number]) [address], [address] [place] [address] BENZODIAZEPINES Positive Abnormal NEG [facility] Comment on above: Result Comment: Conf irmation available upon request. Benzodiazepines screening cut off value = 200 ng/mL Performed By: #### D STAPLES #### [facility] ([id number]) [address], [address] [place] [address] CANNABINOIDS Positive Abnormal NEG [facility] Comment on above: Result Comment: Conf irmation available upon request. Cannabinoids/THC screening cut off value = 50 ng/mL Performed By: #### D STAPLES #### [facility] ([id number]) [address], [address] [place] [address] COCAINE METABOLITE Negative Normal NEG [facility] Comment on above: Result Comment: Coca ine screening cut off value = 300 ng/mL Performed By: #### D STAPLES #### [facility] ([id number]) [address], [address] [place] [address] ECSTASY Negative Normal NEG [facility] Comment on above: Result Comment: Ecst asy screening cut off value = 500 ng/mL This report is intended for use in clinical monitoring or management of patients. Performed By: #### D STAPLES #### [facility] ([id number]) [address], [address] [place] [address] METHADONE Negative Normal NEG [facility] Comment on above: Result Comment: Meth adone screening cut off value = 300 ng/mL. Performed By: #### D STAPLES #### [facility] ([id number]) [address], [address] [place] [address] OPIATES Negative Normal NEG [facility] Comment on above: Result Comment: Opia satya screening cut off value = 300 ng/mL NOTE: This test is used for the detection of codeine, hydrocodone (>1000 ng/mL), morphine and hydromorphone (>900 ng/mL) in urine. Performed By: #### D STAPLES #### [facility] ([id number]) [address], [address] [place] [address] OXYCODONE Negative Normal NEG [facility] Comment on above: Result Comment: Oxyc odone screening cut off value = 300 ng/mL NOTE: This test is used for the detection of oxycodone and oxymorphone in urine. Performed By: #### D STAPLES #### [facility] ([id number]) [address], [address] [place] [address] PHENCYCLIDINE Negative Normal NEG [facility] Comment on above: Result Comment: Phen cyclidine screening cut off value = 25 ng/mL Performed By: #### D STAPLES #### [facility] ([id number]) [address], [address] [address] Glucose Glucometer (BldC) [M ass/Vol]on 10-31-2023 Glucose [Mass/Vol] 130 mg/dL High 65-99 [facility] HGB A1C (GLYCO-HGB)on 2023 Glucose [Mass/Vol] 148 mg/dL Normal [facility] Comment on above: Performed By: #### C BCA, CMP, THYR, HA1C, 18490-3 #### [facility] ([id number]) [address], [address] [address] HbA1c (Bld) [Mass fraction] 6.8 % High 4.4-5.6 [facility] Comment on above: Result Comment: NOTE ADA Guidelines Result HgbA1c Normal : less than 5.7 % Prediabetes : 5.7 % to 6.4 % Diabetes : > 6.4 % Use with caution in patients with abnormal hemoglobin variants as the half-life of red blood cells and in vivo glycation rates are affected. Performed By: #### C BCA, CMP, THYR, HA1C, 19058-6 #### [facility] ([id number]) [address], [address] [place] [address] STREP B PCR VAG/RECTon 10-30 S. agalactiae Org specific cx Ql (Vag+Rectum) Negative Normal NEG [facility] Comment on above: Performed By: #### 7 2607-5 #### [facility] ([id number]) [address] [facility] [place] [address] T. pallidum IgG+IgM IA Ql (S )on 10-31-2023 Syphilis Total <0.2 Normal 0.0-0.8 [facility] Comment on above: Result Comment: NON REACTIVE No serologic evidence of infection to Treponema pallidum (syphilis). Repeat testing may be considered in patients with suspected acute or primary syphilis in 2 to 4 weeks. Performed By: #### C BCA, CMP, THYR, HA1C, 09578-8 #### [facility] ([id number]) [address] [facility], [address] [place] [address] THYROID PROFILEon 10-31-2023 Free T4 [Mass/Vol] 0.75 ng/dL Normal 0.61-1.60 [facility] Comment on above: Performed By: #### C BCA, CMP, THYR, HA1C, 48988-0 #### [facility] ([id number]) [address] [facility], [address] [place] [address] TSH 2.80 uIU/mL Normal 0.49-4.67 [facility] Comment on above: Performed By: #### C BCA, CMP, THYR, HA1C, 42965-3 #### [facility] ([id number]) [address] [facility] [facility], [address] [place] [address] URINALYSISon 10-31-2023 Bilirubin Ql (U) Negative Normal NEG [facility] Comment on above: Performed By: #### U A #### [facility] ([id number]) [address] [facility] [facility], [address] [place] [address] BLOOD/HGB Negative Normal NEG [facility] Comment on above: Performed By: #### U A #### [facility] ([id number]) [address], [address] [place] [address] Color (U) YELLOW Normal YELLOW [facility] Comment on above: Performed By: #### U A #### [facility] ([id number]) [address] [place] [address] Glucose Ql (U) 50 mg/dL Abnormal NEG [facility] Comment on above: Performed By: #### U A #### [facility] ([id number]) [address] [place] [address] Ketones Ql (U) 10 mg/dL Abnormal NEG [facility] Comment on above: Performed By: #### U A #### [facility] ([id number]) [address], [address] [place] [address] Leukocyte esterase Test strip Ql (U) Large Abnormal NEG [facility] Comment on above: Performed By: #### U A #### [facility] ([id number]) [address] [place] [address] MUCOUS PRESENT Abnormal NONE [facility] Comment on above: Performed By: #### U A #### [facility] ([id number]) [address], [address] [place] [address] Nitrite Ql (U) Negative Normal NEG [facility] Comment on above: Performed By: #### U A #### [facility] ([id number]) [address] [place] [address] pH (U) 6.5 [pH] Normal 5.0-8.5 [facility] Comment on above: Performed By: #### U A #### [facility] ([id number]) [address] [place] [address] Protein Ql (U) 70 mg/dL Abnormal NEG [facility] Comment on above: Performed By: #### U A #### [facility] ([id number]) [address] [address] R.B.CELLS 2 /hpf Normal 0-5 [facility] Comment on above: Performed By: #### U A #### [facility] ([id number]) [address] [place] [address] Specific gravity (U) [Rel density] 1.039 High 1.003-1.035 [facility] Comment on above: Performed By: #### U A #### [facility] ([id number]) [address] [place] [address] SQUAMOUS EPITHELIUM 18 /hpf High 0-5 [facility] Comment on above: Performed By: #### U A #### [facility] ([id number]) [address] [place] [address] TURBIDITY HAZY Abnormal CLEAR [facility] Comment on above: Performed By: #### U A #### [facility] ([id number]) [address] [place] [address] Urobilinogen Qn (U) 4 {Sariah'U}/dL High <1.1 [facility] Comment on above: Performed By: #### U A #### [facility] ([id number]) [address] [place] [address] W.B.CELLS 36 /hpf High 0-5 [facility] Comment on above: Performed By: #### U A #### [facility] ([id number]) [address] [place] [address] URINE CULTUREon 10-31-2023 Bacteria identified Cx Nom (U) SPECIMEN NOTES URINE RECEIVED WITHOUT PRESERVATIVE CULTURE RESULTS 10-50,000 ORGANISMS/mL NORMAL UROGENITAL LEANA Normal [facility] Comment on above: Performed By: #### C BCA, CMP, THYR, HA, 26365-2 #### [facility] ([id number]) [address] [place] [address], [address] [place] [address] VAGINITIS PANEL PCRon 2023 VAGINITIS PANEL PCR [...] presentation to determine patient diagnosis. Normal [facility] Comment on above: Performed By: #### C BCA, CMP, [place], [place], 03129-6 #### [facility] ([id number]) [address] [facility], [address] [place] [address] ED Prov Noteon 10-13-2023 ED Prov Note ED PROVIDER NOTE [facility] EMERGENCY [facility]MENT NAME: Riri Dempsey AGE: 28 y.o. : 1995 VISIT DATE: 10/13/2023 CSN: [id number] PCP: Gaye Josue, PHARMACY TECH Chief Complaint Patient presents with Leg Pain [...] minutes she had diffuse abdominal tightness like [place] contractions she said. It happened to [...] She has yet to talk with her [facility] about any of this and they have told her they can get her in for over a week. They recommended that she come to emergency department. Her local [place] does not have [facility] services so she came here. She typically gets her OB care at [facility] by Dr. Loy Asher. Additionally she [...] to speak (more content not included)... Normal [facility] URINALYSISon 10-13-2023 BACTERIA, URINE Few Abnormal None Seen [facility] Comment on above: Order Comment: Micro scopic examination is performed on all urinalysis samples and only positive findings are reported. The test for blood on the chemical analytic portion of urinalysis may also be positive due to hemoglobinuria and myoglobinuria and if red blood cells are present they are quantified by microscopic examination. Performed By: #### 4 6625 #### LAB [address] [place] [address] Diego Hamilton M.D. [id number] BILIRUBIN, URINE Positive Abnormal Negative [facility] Comment on above: Order [...] pyridium. Performed By: #### 4 6625 #### [place] [address] Diego Hamilton M.D. [id number] BLOOD, URINE Negative Normal Negative [facility] Comment on above: Order Comment: Micro scopic examination is performed on all urinalysis samples and only positive findings are reported. The test for blood on the chemical analytic portion of urinalysis may also be positive due to hemoglobinuria and myoglobinuria and if red blood cells are present they are quantified by microscopic examination. Performed By: #### 4 6625 #### [place] [address] Diego Hamilton M.D. [id number] Clarity (U) Clear Normal Clear [facility] Comment on above: Order Comment: Micro scopic examination is performed on all urinalysis samples and only positive findings are reported. The test for blood on the chemical analytic portion of urinalysis may also be positive due to hemoglobinuria and myoglobinuria and if red blood cells are present they are quantified by microscopic examination. Performed By: #### 4 6625 #### [place] [address] Diego Hamilton M.D. [id number] Color (U) Kay Abnormal Colorless, Yellow [facility] Comment on above: Order Comment: Micro scopic examination is performed on all urinalysis samples and only positive findings are reported. The test for blood on the chemical analytic portion of urinalysis may also be positive due to hemoglobinuria and myoglobinuria and if red blood cells are present they are quantified by microscopic examination. Performed By: #### 4 6625 #### [place] [address] Diego Hamilton M.D. [id number] Glucose Ql (U) Negative Normal [facility] Comment on above: Order Comment: Micro scopic examination is performed on all urinalysis samples and only positive findings are reported. The test for blood on the chemical analytic portion of urinalysis may also be positive due to hemoglobinuria and myoglobinuria and if red blood cells are present they are quantified by microscopic examination. Performed By: #### 4 6625 #### [place] [address] Diego Hamilton M.D. [id number] Ketones Ql (U) >=80 Abnormal Negative [facility] Comment on above: Order Comment: Micro scopic examination is performed on all urinalysis samples and only positive findings are reported. The test for blood on the chemical analytic portion of urinalysis may also be positive due to hemoglobinuria and myoglobinuria and if red blood cells are present they are quantified by microscopic examination. Performed By: #### 4 6625 #### [place] [address] Diego Hamilton M.D. [id number] Leukocyte esterase Test strip Ql (U) Small Abnormal Negative [facility] Comment on above: Order Comment: Micro scopic examination is performed on all urinalysis samples and only positive findings are reported. The test for blood on the chemical analytic portion of urinalysis may also be positive due to hemoglobinuria and myoglobinuria and if red blood cells are present they are quantified by microscopic examination. Performed By: #### 4 6625 #### [place] [address] Diego Hamilton M.D. [id number] NITRITE, URINE Negative Normal [facility] Comment on above: Order Comment: Micro scopic examination is performed on all urinalysis samples and only positive findings are reported. The test for blood on the chemical analytic portion of urinalysis may also be positive due to hemoglobinuria and myoglobinuria and if red blood cells are present they are quantified by microscopic examination. Performed By: #### 4 6625 #### [place] [address] Diego Hamilton M.D. [id number] pH (U) 6.5 [pH] Normal 5.0-7.0 [facility] Comment on above: Order Comment: Micro scopic examination is performed on all urinalysis samples and only positive findings are reported. The test for blood on the chemical analytic portion of urinalysis may also be positive due to hemoglobinuria and myoglobinuria and if red blood cells are present they are quantified by microscopic examination. Performed By: #### 4 6625 #### [place] [address] Diego Hamilton M.D. [id number] Protein (U) [Mass/Vol] 30 mg/dL Abnormal Negative [facility] Comment on above: Order Comment: Micro scopic [...] compounds. Performed By: #### 4 6625 #### [place] [address] Diego Hamilton M.D. [id number] RBC LM.HPF (Urine sed) [#/Area] 2 /[HPF] Normal 0-3 [facility] Comment on above: Order Comment: Micro scopic examination is performed on all urinalysis samples and only positive findings are reported. The test for blood on the chemical analytic portion of urinalysis may also be positive due to hemoglobinuria and myoglobinuria and if red blood cells are present they are quantified by microscopic examination. Performed By: #### 4 6625 #### [place] [address] Diego Hamilton M.D. [id number] Specific gravity (U) [Rel density] >= High 1.005-1.025 [facility] Comment on above: Order Comment: Micro scopic examination is performed on all urinalysis samples and only positive findings are reported. The test for blood on the chemical analytic portion of urinalysis may also be positive due to hemoglobinuria and myoglobinuria and if red blood cells are present they are quantified by microscopic examination. Performed By: #### 4 6625 #### SH [address] [address] Diego Hamilton M.D. [id number] SQUAMOUS EPITHELIAL 7 /hpf High 0-4 [facility] Comment on above: Order Comment: Micro scopic examination is performed on all urinalysis samples and only positive findings are reported. The test for blood on the chemical analytic portion of urinalysis may also be positive due to hemoglobinuria and myoglobinuria and if red blood cells are present they are quantified by microscopic examination. Performed By: #### 4 6625 #### SH [address] [address] Diego Hamilton M.D. [id number] UROBILINOGEN, URINE <2.0 Normal <2.0 [facility] Comment on above: Order Comment: Micro scopic examination is performed on all urinalysis samples and only positive findings are reported. The test for blood on the chemical analytic portion of urinalysis may also be positive due to hemoglobinuria and myoglobinuria and if red blood cells are present they are quantified by microscopic examination. Performed By: #### 4 6625 #### [address] [address] Diego Hamilton M.D. [id number] WBC LM.HPF (Urine sed) [#/Area] 45 /[HPF] High 0-5 [facility] Comment on above: Order Comment: Micro scopic examination is performed on all urinalysis samples and only positive findings are reported. The test for blood on the chemical analytic portion of urinalysis may also be positive due to hemoglobinuria and myoglobinuria and if red blood cells are present they are quantified by microscopic examination. Performed By: #### 4 6625 #### [address] [address] Diego Hamilton M.D. [id number] URINE AEROBIC CULTUREon 10-03 URINE AEROBIC CULTURE URINE CULTURE No Growth (<1,000 CFU/mL) Normal [facility] Comment on above: Performed By: #### 4 4053 #### [facility] [address] [place] [address] Hilton Fox M.D. [id number] Basic Metabolic Profon 10-08 Anion gap [Moles/Vol] 18 mmol/L High 9-17 [facility] Comment on above: Performed By: #### C DP, BMP #### [facility] [address] [place] [address] Physician Assistant Psychiatry: Zayra Chapman MD BUN/CRE Ratio 18 Normal 9- [facility] Comment on above: Performed By: #### C DP, BMP #### [facility] [address] [place] [address] Physician Assistant Psychiatry: Zayra Chapman MD Calcium [Mass/Vol] 8.7 mg/dL Normal 8.6-10.4 [facility] Comment on above: Performed By: #### C DP, BMP #### [facility] [address] [place] [address] Physician Assistant Psychiatry: Zayra Chapman MD Chloride [Moles/Vol] 103 mmol/L Normal 98-107 [facility] Comment on above: Performed By: #### C DP, BMP #### [facility] [address] [place] [address] Physician Assistant Psychiatry: Zayra Chapman MD CO2 [Moles/Vol] 15 mmol/L Low 20-31 [facility] Comment on above: Performed By: #### C DP, BMP #### [facility] [address] [place], [place] [id number] Physician Assistant Psychiatry: Zayra Chapman MD Creatinine [Mass/Vol] 0.4 mg/dL Low 0.5-0.9 [facility] Comment on above: Performed By: #### C DP, BMP #### [facility] [address] [place], [place] [id number] Physician Assistant Psychiatry: Zayra Chapman MD GFR/1.73 sq M.predicted among non-blacks MDRD (S/P/Bld) [Vol rate/Area] mL/min/{1.73_m2} Normal >60 [facility] Comment on above: Result Comment: These [...] Performed By: #### C DP, BMP #### [facility] [address] [place], [place] [id number] Physician Assistant Psychiatry: Zayra Chapman MD Glucose [Mass/Vol] 143 mg/dL High 70-99 [facility] Comment on above: Performed By: #### C DP, BMP #### [facility] [address] [place], [place] [id number] Physician Assistant Psychiatry: Zayra Chapman MD Potassium [Moles/Vol] 3.6 mmol/L Low 3.7-5.3 [facility] Comment on above: Performed By: #### C DP, BMP #### [facility] [address] [place], [place] [phone] Physician Assistant Psychiatry: Zayra Chapman MD Sodium [Moles/Vol] 136 mmol/L Normal 135-144 [facility] Comment on above: Performed By: #### C DP, BMP #### [facility] [address] [place], [place] [id number] Physician Assistant Psychiatry: Zayra Chapman MD Urea nitrogen [Mass/Vol] 7 mg/dL Normal 6-20 [facility] Comment on above: Performed By: #### C DP, BMP #### [facility] [address] [place] [address] Physician Assistant Psychiatry: Zayra Chapman MD CBC with Diffon 10-09-2023 Abs. Basophil 0.04 k/uL Normal 0.00-0.20 [facility] Comment on above: Performed By: #### C DP, BMP #### [facility] [address] [place] [address] Physician Assistant Psychiatry: Zayra Chapman MD Abs.Imm.Granulocyte 0.03 k/uL Normal 0.00-0.30 [facility] Comment on above: Performed By: #### C DP, BMP #### [facility] [address] [place] [address] Physician Assistant Psychiatry: Zayra Chapman MD Abs.Neutrophil (Seg) 6.85 k/uL Normal 2.5-7.0 [facility] Comment on above: Performed By: #### C DP, BMP #### [facility] [address] [place] [address] Physician Assistant Psychiatry: Zayra Chapman MD Basophils/100 WBC (Bld) 0 % Normal 0-2 [facility] Comment on above: Performed By: #### C DP, BMP #### [facility] [address] [place] [id number] Physician Assistant Psychiatry: Zayra Chapman MD Eosinophils (Bld) [#/Vol] 0.08 10*3/uL Normal 0.00-0.40 [facility] Comment on above: Performed By: #### C DP, BMP #### [facility] [address] [place] [id number] Physician Assistant Psychiatry: Zayra Chapman MD Eosinophils/100 WBC (Bld) 1 % Normal 0-5 [facility] Comment on above: Performed By: #### C DP, BMP #### [facility] [address] [place] [address] Physician Assistant Psychiatry: Zayra Chapman MD Erythrocyte distribution width (RBC) [Ratio] 13.1 % Normal 12.1-15.2 [facility] Comment on above: Performed By: #### C DP, BMP #### [facility] [address] [place] [address] Physician Assistant Psychiatry: Zayra Chapman MD Hematocrit (Bld) [Volume fraction] 31.5 % Low 36.0-46.0 [facility] Comment on above: Performed By: #### C DP, BMP #### [facility] [address] [place] [address] Physician Assistant Psychiatry: Zayra Chapman MD Hemoglobin (Bld) [Mass/Vol] 10.3 g/dL Low 12.0-16.0 [facility] Comment on above: Performed By: #### C DP, BMP #### [facility] [address] [place] [address] Physician Assistant Psychiatry: Zayra Chapman MD Immature granulocytes/100 WBC (Bld) 0 % Normal 0-5 [facility] Comment on above: Performed By: #### C DP, BMP #### [facility] [address] [place] [address] Physician Assistant Psychiatry: Zayra Chapman MD Lymphocytes (Bld) [#/Vol] 1.83 10*3/uL Normal 1.00-4.80 [facility] Comment on above: Performed By: #### C DP, BMP #### [facility] [address] [place] [address] Physician Assistant Psychiatry: Zayra Chapman MD Lymphocytes/100 WBC (Bld) 20 % Normal 15-40 [facility] Comment on above: Performed By: #### C DP, BMP #### [facility] [address] [place] [address] Physician Assistant Psychiatry: Zayra Chapman MD MCH (RBC) [Entitic mass] 27.4 pg Normal 26.0-34.0 [facility] Comment on above: Performed By: #### C DP, BMP #### [facility] [address] [place] [address] Physician Assistant Psychiatry: Zayra Chapman MD MCHC (RBC) [Mass/Vol] 32.7 g/dL Normal 31.0-37.0 [facility] Comment on above: Performed By: #### C DP, BMP #### [facility] [address] [place] [address] Physician Assistant Psychiatry: Zayra Chapman MD MCV (RBC) [Entitic vol] 83.8 fL Normal 80.0-100.0 [facility] Comment on above: Performed By: #### C DP, BMP #### [facility] [address] [place] [address] Physician Assistant Psychiatry: Zayra Chapman MD Monocytes (Bld) [#/Vol] 0.50 10*3/uL Normal 0.00-1.00 [facility] Comment on above: Performed By: #### C DP, BMP #### [facility] [address] [place] [address] Physician Assistant Psychiatry: Zayra Chapman MD Monocytes/100 WBC (Bld) 5 % Normal 4-8 M [facility] Comment on above: Performed By: #### C DP, BMP #### [facility] [address] [place] [address] Physician Assistant Psychiatry: Zayra Chapman MD Neutrophil (Seg) 74 % Normal 47-75 [facility] Comment on above: Performed By: #### C DP, BMP #### [facility] [address] [place] [address] Physician Assistant Psychiatry: Zayra Chapman MD Platelet mean volume (Bld) [Entitic vol] 11.3 fL Normal 6.0-12.0 [facility] Comment on above: Performed By: #### C DP, BMP #### [facility] [address] [place] [address] (455) Physician Assistant Psychiatry: Zayra Chapman MD Platelets (Bld) [#/Vol] 201 10*3/uL Normal 140-450 [facility] Comment on above: Performed By: #### C DP, BMP #### [facility] [address] [place] [address] (493) Physician Assistant Psychiatry: Zayra Chapman MD RBC (Bld) [#/Vol] 3.76 10*6/uL Low 4.00-5.20 [facility] Comment on above: Performed By: #### C DP, BMP #### [facility] [address] [place] [address] Physician Assistant Psychiatry: Zayra Chapman MD WBC (Bld) [#/Vol] 9.3 10*3/uL Normal 3.5-11.0 [facility] Comment on above: Performed By: #### C DP, BMP #### [facility] [address] [place] [address] Physician Assistant Psychiatry: Zayra Chapman MD Cult,Urineon 08-20-2023 Cult,Urine Specimen Description .CLEAN CATCH URINE Culture NO SIGNIFICANT GROWTH Report Status FINAL 08/20/2023 Normal [facility] Comment on above: Performed By: #### U SAMIRAO, CG, UA #### [facility] [address] [place] [address] Physician Assistant Psychiatry: Zayra Chapman MD Ultrasound - Officeon 2023 Radiology Study observation (narrative) [facility] HIV 1&2 AB/AG Screen (P24 AG )on 06-20-2023 HIV 1&2 AB/AG Negative [facility] Hemoglobin A1con 06-20-2023 HbA1c (Bld) [Mass fraction] 7.2 % Abnormal 4.0 - 6.0 % [facility] Interpretation and review of laboratory results Abnormal [facility] Hepatitis B surface antigeno n 06-20-2023 Hepatitis B Surface Antigen Negative [facility] No Panel Informationon 06-20 [facility] Rubella IGG immune statuson 06-20-2023 Rubella immune IgG immune [facility] Syphilis Total(Unknown Syphi lis Status)on 06-20-2023 Syphilis Non-Reactive [facility] Type and screenon 06-20-2023 Abo/Rh(D) Positive [facility] Ultrasound - Officeon 2023 [facility] CBC with Diffon 02-13-2023 Abs. Basophil 0.01 k/uL Normal 0.00-0.20 [facility] Comment on above: Performed By: #### L IPR, T4, GLYHGB, T3 #### [address] [id number] Physician Assistant Psychiatry: Antoine Wilson MD #### CP, TSH, CDP, ZFAST #### [facility] [address] [place] [address] Physician Assistant Psychiatry: Zayra Chapman MD Abs.Imm.Granulocyte 0.02 k/uL Normal 0.00-0.30 [facility] Comment on above: Performed By: #### L IPR, T4, GLYHGB, T3 #### [address] [id number] Physician Assistant Psychiatry: Antoine Wilson MD #### CP, TSH, CDP, ZFAST #### [facility] [address] [place] [address] Physician Assistant Psychiatry: Zayra Chapman MD Abs.Neutrophil (Seg) 4.27 k/uL Normal 2.5-7.0 [facility] Comment on above: Performed By: #### L IPR, T4, GLYHGB, T3 #### [address] [id number] Physician Assistant Psychiatry: Antoine Wilson MD #### CP, TSH, CDP, ZFAST #### [facility] [address] [place], [place] [phone] Physician Assistant Psychiatry: Zayra Chapman MD Basophils/100 WBC (Bld) 0 % Normal 0-2 [facility] Comment on above: Performed By: #### L IPR, T4, GLYHGB, T3 #### [address] [id number] Physician Assistant Psychiatry: Antoine Wilson MD #### CP, TSH, CDP, ZFAST #### [facility] [address] [place] [phone] Physician Assistant Psychiatry: Zayra Chapman MD Eosinophils (Bld) [#/Vol] 0.07 10*3/uL Normal 0.00-0.40 [facility] Comment on above: Performed By: #### L IPR, T4, GLYHGB, T3 #### [place] [id number] Physician Assistant Psychiatry: Antoine Wilson MD #### CP, TSH, CDP, ZFAST #### [facility] [address] [place] [phone] Physician Assistant Psychiatry: Zayra Chapman MD Eosinophils/100 WBC (Bld) 1 % Normal 0-5 [facility] Comment on above: Performed By: #### L IPR, T4, GLYHGB, T3 #### [place] [id number] Physician Assistant Psychiatry: Antoine Wilson MD #### CP, TSH, CDP, ZFAST #### [facility] [address] [place] [phone] Physician Assistant Psychiatry: Zayra Chapman MD Erythrocyte distribution width (RBC) [Ratio] 13.2 % Normal 12.1-15.2 [facility] Comment on above: Performed By: #### L IPR, T4, GLYHGB, T3 #### [place] [id number] Physician Assistant Psychiatry: Antoine Wilson MD #### CP, TSH, CDP, ZFAST #### [facility] [address] [place], [place] [phone] Physician Assistant Psychiatry: Zayra hCapman MD Hematocrit (Bld) [Volume fraction] 41.9 % Normal 36.0-46.0 [facility] Comment on above: Performed By: #### L IPR, T4, GLYHGB, T3 #### [facility] [address] [place] [address] [id number] Physician Assistant Psychiatry: Antoine Wilson MD #### CP, TSH, CDP, ZFAST #### [facility] [address] [place], [place] [phone] Physician Assistant Psychiatry: Zayra Chapman MD Hemoglobin (Bld) [Mass/Vol] 13.5 g/dL Normal 12.0-16.0 [facility] Comment on above: Performed By: #### L IPR, T4, GLYHGB, T3 #### [address] [id number] Physician Assistant Psychiatry: Antoine Wilson MD #### CP, TSH, CDP, ZFAST #### [facility] [address] [place], [place] [phone] Physician Assistant Psychiatry: Zayra Chapman MD Immature granulocytes/100 WBC (Bld) 0 % Normal 0-5 [facility] Comment on above: Performed By: #### L IPR, T4, GLYHGB, T3 #### [facility] [address] [place] [address] [id number] Physician Assistant Psychiatry: Antoine Wilson MD #### CP, TSH, CDP, ZFAST #### [facility] [address] [place], [place] [phone] Physician Assistant Psychiatry: Zayra Chapman MD Lymphocytes (Bld) [#/Vol] 1.14 10*3/uL Normal 1.00-4.80 [facility] Comment on above: Performed By: #### L IPR, T4, GLYHGB, T3 #### [place] [address] [place], [place] [phone] Physician Assistant Psychiatry: Antoine Wilson MD #### CP, TSH, CDP, ZFAST #### [facility] [address] [place], [place] [phone] Physician Assistant Psychiatry: Zayra Chapman MD Lymphocytes/100 WBC (Bld) 20 % Normal 15-40 [facility] Comment on above: Performed By: #### L IPR, T4, GLYHGB, T3 #### [address] [id number] Physician Assistant Psychiatry: Antoine Wilson MD #### CP, TSH, CDP, ZFAST #### [facility] [address] [place] [phone] Physician Assistant Psychiatry: Zayra Chapman MD MCH (RBC) [Entitic mass] 26.6 pg Normal 26.0-34.0 [facility] Comment on above: Performed By: #### L IPR, T4, GLYHGB, T3 #### [address] [id number] Physician Assistant Psychiatry: Antoine Wilson MD #### CP, TSH, CDP, ZFAST #### [facility] [address] [place] [phone] Physician Assistant Psychiatry: Zayra Chapman MD MCHC (RBC) [Mass/Vol] 32.2 g/dL Normal 31.0-37.0 [facility] Comment on above: Performed By: #### L IPR, T4, GLYHGB, T3 #### [address] [id number] Physician Assistant Psychiatry: Antoine Wilson MD #### CP, TSH, CDP, ZFAST #### [facility] [address] [place] [address] Physician Assistant Psychiatry: Zayra Chapman MD MCV (RBC) [Entitic vol] 82.6 fL Normal 80.0-100.0 [facility] Comment on above: Performed By: #### L IPR, T4, GLYHGB, T3 #### [address] [phone] Physician Assistant Psychiatry: Antoine Wilson MD #### CP, TSH, CDP, ZFAST #### [facility] [address] [place], [place] [phone] Physician Assistant Psychiatry: Zayra Chapman MD Monocytes (Bld) [#/Vol] 0.30 10*3/uL Normal 0.00-1.00 [facility] Comment on above: Performed By: #### L IPR, T4, GLYHGB, T3 #### [address] [id number] Physician Assistant Psychiatry: Antoine Wilson MD #### CP, TSH, CDP, ZFAST #### [facility] [address] [place], [place] [phone] Physician Assistant Psychiatry: Zayra Chapman MD Monocytes/100 WBC (Bld) 5 % Normal 4-8 M [facility] Comment on above: Performed By: #### L IPR, T4, GLYHGB, T3 #### [address] [id number] Physician Assistant Psychiatry: Antoine Wilson MD #### CP, TSH, CDP, ZFAST #### [facility] [address] [place], [place] [phone] Physician Assistant Psychiatry: Zayra Chapman MD Neutrophil (Seg) 74 % Normal 47-75 [facility] Comment on above: Performed By: #### L IPR, T4, GLYHGB, T3 #### [address] [address] Physician Assistant Psychiatry: Antoine Wilson MD #### CP, TSH, CDP, ZFAST #### [facility] [address] [place], [place] [phone] Physician Assistant Psychiatry: Zayra Chapman MD Platelet mean volume (Bld) [Entitic vol] 11.0 fL Normal 6.0-12.0 [facility] Comment on above: Performed By: #### L IPR, T4, GLYHGB, T3 #### [address] [id number] Physician Assistant Psychiatry: Antoine Wilson MD #### CP, TSH, CDP, ZFAST #### [facility] [address] [place] [address] Physician Assistant Psychiatry: Zayra Chapman MD Platelets (Bld) [#/Vol] 206 10*3/uL Normal 140-450 [facility] Comment on above: Performed By: #### L IPR, T4, GLYHGB, T3 #### [address] [id number] Physician Assistant Psychiatry: Antoine Wilson MD #### CP, TSH, CDP, ZFAST #### [facility] [address] [place] [phone] Physician Assistant Psychiatry: Zayra Chapman MD RBC (Bld) [#/Vol] 5.07 10*6/uL Normal 4.00-5.20 [facility] Comment on above: Performed By: #### L IPR, T4, GLYHGB, T3 #### [address] [address] Physician Assistant Psychiatry: Antoine Wilson MD #### CP, TSH, CDP, ZFAST #### [facility] [address] [place] [phone] Physician Assistant Psychiatry: Zayra Chapman MD WBC (Bld) [#/Vol] 5.8 10*3/uL Normal 3.5-11.0 [facility] Comment on above: Performed By: #### L IPR, T4, GLYHGB, T3 #### [place] [address] [place] [address] Physician Assistant Psychiatry: Antoine Wilson MD #### CP, TSH, CDP, ZFAST #### [facility] [address] [place] [address] Physician Assistant Psychiatry: Zayra Chapman MD Comp Metabolic Profon 2022 Albumin [Mass/Vol] 4.3 g/dL Normal 3.5-5.2 [facility] Comment on above: Performed By: #### L IPR, T4, GLYHGB, T3 #### [facility] [address] [place] [address] Physician Assistant Psychiatry: Antoine Wilson MD #### CP, TSH, CDP, ZFAST #### [facility] [address] [place], [place] [phone] Physician Assistant Psychiatry: Zayra Chapman MD Alkaline Phos 127 U/L High 35-104 [facility] [facility] Comment on above: Performed By: #### L IPR, T4, GLYHGB, T3 #### [facility] [address] [place] [address] Physician Assistant Psychiatry: Antoine Wilson MD #### CP, TSH, CDP, ZFAST #### [facility] [address] [place], [place] [phone] Physician Assistant Psychiatry: Zayra Chapman MD ALT [Catalytic activity/Vol] 51 U/L High 5-33 [facility] Comment on above: Performed By: #### L IPR, T4, GLYHGB, T3 #### [facility] [address] [place], [place] [id number] Physician Assistant Psychiatry: Antoine Wilson MD #### CP, TSH, CDP, ZFAST #### [facility] [address] [place], [place] [id number] Physician Assistant Psychiatry: Zayra Chapman MD Anion gap [Moles/Vol] 12 mmol/L Normal 9-17 [facility] Comment on above: Performed By: #### L IPR, T4, GLYHGB, T3 #### [facility] [address] [place], [place] [id number] Physician Assistant Psychiatry: Antoine Wilson MD #### CP, TSH, CDP, ZFAST #### [facility] [address] [place], [place] [phone] Physician Assistant Psychiatry: Zayra Chapman MD AST [Catalytic activity/Vol] 31 U/L Normal <32 [facility] Comment on above: Performed By: #### L IPR, T4, GLYHGB, T3 #### [address] [id number] Physician Assistant Psychiatry: Antoine Wilson MD #### CP, TSH, CDP, ZFAST #### [facility] [address] [place], [place] [phone] Physician Assistant Psychiatry: Zayra Chapman MD Bilirubin [Mass/Vol] 0.3 mg/dL Normal 0.3-1.2 [facility] Comment on above: Performed By: #### L IPR, T4, GLYHGB, T3 #### [address] [id number] Physician Assistant Psychiatry: Antoine Wilson MD #### CP, TSH, CDP, ZFAST #### [facility] [address] [place], [place] 3486190 Physician Assistant Psychiatry: Zayra Chapman MD BUN/CRE Ratio 16 Normal 9-20 [facility] Comment on above: Performed By: #### L IPR, T4, GLYHGB, T3 #### [address] [phone] Physician Assistant Psychiatry: Antoine Wilson MD #### CP, TSH, CDP, ZFAST #### [facility] [address] [place], [place] 2700290 Physician Assistant Psychiatry: Zayra Chapman MD Calcium [Mass/Vol] 9.0 mg/dL Normal 8.6-10.4 [facility] Comment on above: Performed By: #### L IPR, T4, GLYHGB, T3 #### [address] [id number] Physician Assistant Psychiatry: Antoine Wilson MD #### CP, TSH, CDP, ZFAST #### [facility] [address] [place], [place] 2087390 Physician Assistant Psychiatry: Zayra Chapman MD Chloride [Moles/Vol] 100 mmol/L Normal 98-107 [facility] Comment on above: Performed By: #### L IPR, T4, GLYHGB, T3 #### [address] [phone] Physician Assistant Psychiatry: Antoine Wilson MD #### CP, TSH, CDP, ZFAST #### [facility] [address] [place] [id number] Physician Assistant Psychiatry: Zayra Chapman MD CO2 [Moles/Vol] 24 mmol/L Normal 20-31 [facility] Comment on above: Performed By: #### L IPR, T4, GLYHGB, T3 #### [address] [id number] Physician Assistant Psychiatry: Antoine Wilson MD #### CP, TSH, CDP, ZFAST #### [facility] [address] [place], [place] 6026390 Physician Assistant Psychiatry: Zayra Chapman MD Creatinine [Mass/Vol] 0.7 mg/dL Normal 0.5-0.9 [facility] Comment on above: Performed By: #### L IPR, T4, GLYHGB, T3 #### [address] [id number] Physician Assistant Psychiatry: Antoine Wilson MD #### CP, TSH, CDP, ZFAST #### [facility] [address] [place] [address] Physician Assistant Psychiatry: Zayra Chapman MD GFR/1.73 sq M.predicted among non-blacks MDRD (S/P/Bld) [Vol rate/Area] mL/min/{1.73_m2} Normal >60 [facility] Comment on above: Result Comment: These [...] #### L IPR, T4, GLYHGB, T3 #### [address] [id number] Physician Assistant Psychiatry: Antoine Wilson MD #### CP, TSH, CDP, ZFAST #### [facility] [address] [place] [address] Physician Assistant Psychiatry: Zayra Chapman MD Glucose [Mass/Vol] 367 mg/dL High 70-99 [facility] Comment on above: Performed By: #### L IPR, T4, GLYHGB, T3 #### [address] [id number] Physician Assistant Psychiatry: Antoine Wilson MD #### CP, TSH, CDP, ZFAST #### [facility] [address] [place] [address] Physician Assistant Psychiatry: Zayra Chapman MD Potassium [Moles/Vol] 4.3 mmol/L Normal 3.7-5.3 [facility] Comment on above: Performed By: #### L IPR, T4, GLYHGB, T3 #### [address] [id number] Physician Assistant Psychiatry: Antoine Wilson MD #### CP, TSH, CDP, ZFAST #### [facility] [address] [place], [place] [phone] Physician Assistant Psychiatry: Zayra Chapman MD Protein [Mass/Vol] 7.0 g/dL Normal 6.4-8.3 [facility] Comment on above: Performed By: #### L IPR, T4, GLYHGB, T3 #### [address] [id number] Physician Assistant Psychiatry: Antoine Wilson MD #### CP, TSH, CDP, ZFAST #### [facility] [address] [place], [place] [phone] Physician Assistant Psychiatry: Zayra Chapman MD Sodium [Moles/Vol] 136 mmol/L Normal 135-144 [facility] Comment on above: Performed By: #### L IPR, T4, GLYHGB, T3 #### [address] [address] Physician Assistant Psychiatry: Antoine Wilson MD #### CP, TSH, CDP, ZFAST #### [facility] [address] [place], [place] [phone] Physician Assistant Psychiatry: Zayra Chapman MD Urea nitrogen [Mass/Vol] 11 mg/dL Normal 6-20 [facility] Comment on above: Performed By: #### L IPR, T4, GLYHGB, T3 #### [address] [id number] Physician Assistant Psychiatry: Antoine Wilson MD #### CP, TSH, CDP, ZFAST #### [facility] [address] [place], [place] [phone] Physician Assistant Psychiatry: Zayra Chapman MD Hemoglobin A1Con 02-13-2023 Glucose [Mass/Vol] 280 mg/dL Normal [facility] Comment on above: Result Comment: The ADA and AACC recommend providing the estimated average glucose result to permit better patient understanding of their HBA1c result. Performed By: #### U OSITO DAVIDSONG, UA #### [facility] [address] [place], [place] [phone] Physician Assistant Psychiatry: Zayra Chapman MD HbA1c (Bld) [Mass fraction] 11.4 % High 4.0-6.0 [facility] Comment on above: Performed By: #### Julien DAVIDSON [facility], UA #### [facility] [address] [place], [place] [phone] Physician Assistant Psychiatry: Zayra Chapman MD Lipid Profileon 02-13-2023 Cholesterol [Mass/Vol] 215 mg/dL High 0-199 [facility] Comment on above: Result Comment: Cholesterol Guidelines: <200 Desirable 200-240 Borderline >240 Undesirable Performed By: #### Julien DAVIDSON [facility], UA #### [facility] [address] [place], [place] [phone] Physician Assistant Psychiatry: Zayra Chapman MD Cholesterol in HDL [Mass/Vol] 27 mg/dL Low >40 [facility] Comment on above: Result Comment: HDL Guidelines: <40 Undesirable 40-59 Borderline >59 Desirable Performed By: #### Julien DAVIDSON [facility], UA #### [facility] [address] [place] [address] Physician Assistant Psychiatry: Zayra Chapman MD Cholesterol in LDL [Mass/Vol] 130 mg/dL High 0-100 [facility] Comment on above: Result Comment: LDL Guidelines: <100 Desirable 100-129 Near to/above Desirable 130-159 Borderline >159 Undesirable Direct (measured) LDL and calculated LDL are not interchangeable tests. Performed By: #### Julien DAVIDSON [facility], UA #### [facility] [address] [place], [place] [phone] Physician Assistant Psychiatry: Zayra Chapman MD Cholesterol in VLDL [Mass/Vol] 58 mg/dL Normal [facility] Comment on above: Performed By: #### Julien DAVIDSON [facility], UA #### [facility] [address] [place], [place] [phone] Physician Assistant Psychiatry: Zayra Chapman MD Cholesterol.total/Otilia sterol in HDL [Mass ratio] 8.0 {ratio} Normal [facility] Comment on above: Performed By: #### Julien DAVIDSON [facility], UA #### [facility] [address] [place] [address] Physician Assistant Psychiatry: Zayra Chapman MD Triglyceride [Mass/Vol] 291 mg/dL High 0-149 M [facility] Comment on above: Result Comment: Triglyceride Guidelines: <150 Desirable 150-199 Borderline 200-499 High >499 Very high Based on AHA Guidelines for fasting triglyceride, February 2012. Performed By: #### Julien DAVIDSON [facility], UA #### [facility] [address] [place] [address] Physician Assistant Psychiatry: Zayra Chapman MD Patient fasting?on 3 Patient fasting? YES Normal [facility] Comment on above: Performed By: #### L IPR, T4, GLYHGB, T3 #### [facility] [address] [place], [place] [phone] Physician Assistant Psychiatry: Antoine Wilson MD #### CP, TSH, CDP, ZFAST #### [facility] [address] [place] [address] Physician Assistant Psychiatry: Zayra Chapman MD Thyroid Stim. Horm.on 2022 Thyroid Stim. Horm. 1.43 uIU/mL Normal 0.30-5.00 [facility] Comment on above: Performed By: #### Julien DAVIDSON [facility], UA #### [facility] [address] [place] [address] Physician Assistant Psychiatry: Zayra Chapman MD Thyroxine T4on 02-13-2023 T4 [Mass/Vol] 5.9 ug/dL Normal 4.5-11.7 [facility] Comment on above: Performed By: #### Julien DAVIDSON [facility], UA #### [facility] [address] [place] [address] Physician Assistant Psychiatry: Zayra Chapman MD Triiodothyronine T3on 2022 Triiodothyronine T3 109 ng/dL Normal 80-200 [facility] Comment on above: Performed By: #### U MICAO, CG, UA #### [facility] [address] [place] [address] Physician Assistant Psychiatry: Zayra Chapman MD Chlamydia/GC DNA, Uron 12-23 Chlamydia Probe, Ur Negative Normal NEG [facility] Comment on above: Result Comment: CHLA [...] target. Performed By: #### U CGP #### [place] [address] [place], [place] [phone] Physician Assistant Psychiatry: Antoine Wilson MD Gonorrhea Probe, Ur Negative Normal NEG [facility] Comment on above: Result Comment: NEIS [...] target. Performed By: #### U CGP #### [facility] [address] [place], [place] [phone] Physician Assistant Psychiatry: Antoine Wilson MD Cult,Urineon 12-21-2022 Cult,Urine Specimen [...] Tobramycin 8 INTERMEDIATE Trimethoprim/Sulfa >=320 RESISTANT Resistant [facility] Comment on above: Performed By: #### U RC #### [facility] [address] [place] [address] Physician Assistant Psychiatry: Antoine Wilson MD [facility] [address] [place] [address] Physician Assistant Psychiatry: Zayra Chapman MD HCG, ,Urineon 12-19 Beta HCG ( test) Ql (U) Negative Normal NEG [facility] Comment on above: Performed By: #### U MICAO, CG, UA #### [facility] [address] [place] [address] Physician Assistant Psychiatry: Zayra Chapman MD Microscopic Urinalysison - [facility] Bacteria LM Ql (Urine sed) 4+ Abnormal None [facility] Epithelial cells LM.HPF (Urine sed) [#/Area] 2 TO 5 /HPF [facility] Interpretation and review of laboratory results Abnormal [facility] RBC LM.HPF (Urine sed) [#/Area] 2 TO 5 [facility] WBC LM.HPF (Urine sed) [#/Area] 50 TO 100 0 /HPF [facility] Yeast LM Ql (Urine sed) OCCASIONAL Abnormal None [facility] , Urineon HCG ( test) Ql (U) Negative NEGATIVE [facility] Urinalysison 12-19-2022 Bilirubin Ql (U) Negative NEGATIVE [facility] Clarity (U) Cloudy Abnormal Clear [facility] Color (U) Yellow Yellow [facility] Comment [facility] Glucose Test strip (U) [Mass/Vol] 1000 mg/dL Abnormal NEGATIVE mg/dL [facility] Hemoglobin Auto test strip Ql (U) 1+ Abnormal NEGATIVE [facility] Interpretation and review of laboratory results Abnormal [facility] Ketones (U) [Mass/Vol] Negative NEGAT [place] mg/dL [facility] Leukocyte esterase Test strip Ql (U) 3+ Abnormal NEGATIVE [facility] Nitrite Ql (U) Positive Abnormal NEGATIVE [facility] pH (U) 6.0 [pH] 5.0 - 8.0 [facility] Protein (U) [Mass/Vol] 1+ Abnormal NEGAT [place] mg/dL [facility] Specific gravity (U) [Rel density] 1.010 1.005 - 1.030 [facility] Urobilinogen Qn (U) Normal 0.0 - 1. 0 EU/dL [facility] Urinalysis, Routineon 2022 Bilirubin, SemiQt,Ur Negative Normal NEG [facility] Comment on above: Performed By: #### U [facility], UA #### [facility] [address] [place] [address] Physician Assistant Psychiatry: Zayra Chapman MD Blood, Urine 1+ Abnormal [facility]G [facility] Comment on above: Performed By: #### U MICA, [facility], UA #### [facility] [address] [facility] [address] Physician Assistant Psychiatry: Zayra Chapman MD Clarity (U) Cloudy Abnormal CLEAR [facility] Comment on above: Performed By: #### U MICAO, [facility], UA #### [facility] [address] [facility] [address] Physician Assistant Psychiatry: Zayra Chapman MD Color (U) Yellow Normal YEL [facility] Comment on above: Performed By: #### U MICAO, [facility], UA #### [facility] [address] [facility] [address] Physician Assistant Psychiatry: Zayra Chapman MD Comment Normal [facility] Comment on above: Performed By: #### U MICAO, [facility], UA #### [facility] [address] [place], [place] [phone] Physician Assistant Psychiatry: Zayra Chapman MD Glucose Ql (U) 1000 mg/dL Abnormal NEG [facility] Comment on above: Performed By: #### U MICAO, [facility] #### [facility] [address] [place] [address] Physician Assistant Psychiatry: Zayra Chapman MD Ketones Ql (U) Negative Normal NEG [facility] Comment on above: Performed By: #### U MICAO, [facility], UA #### [facility] [address] [place] [address] Physician Assistant Psychiatry: Zayra Chapman MD Leukocyte esterase Test strip Ql (U) 3+ Abnormal NEG [facility] Comment on above: Performed By: #### U MICAO, [facility], UA #### [facility] [address] [place], [place] [phone] Physician Assistant Psychiatry: Zayra Chapman MD Nitrite,Ur Positive Abnormal NEG [facility] Comment on above: Performed By: #### U MICAO, [facility], UA #### [facility] [address] [place] [address] Physician Assistant Psychiatry: Zayra Chapman MD PH,Ur 6.0 Normal 5.0-8.0 [facility] Comment on above: Performed By: #### U MICAO, [facility], UA #### [facility] [address] [place], [place] [phone] Physician Assistant Psychiatry: Zayra Chapman MD Protein Ql (U) 1+ mg/dL Abnormal NEG [facility] Comment on above: Performed By: #### U MICAO, [facility], [facility] #### [facility] [address] [place], [place] [id number] Physician Assistant Psychiatry: Zayra Chapman MD Spec. J[place],Ur 1.010 Normal 1.005-1.030 [facility] Comment on above: Performed By: #### U STUART [facility], [facility] #### [facility] [address] [place], [place] 9897190 Physician Assistant Psychiatry: Zayra Chapmna MD Urobilinogen,Ur Normal Normal 0.0-1.0 [facility] Comment on above: Performed By: #### U STUART [facility], UA #### [facility] [address] [place] [address] Physician Assistant Psychiatry: Zayra Chapman MD Urinalysis,Microon 3 ----- Normal [facility] Comment on above: Performed By: #### Julien DAVIDSON [facility], UA #### [facility] [address] [place] [address] Physician Assistant Psychiatry: Zayra Chapman MD Bacteria 4+ Abnormal NONE [facility] Comment on above: Performed By: #### U STUART [facility], UA #### [facility] [address] [place], [place] [phone] Physician Assistant Psychiatry: Zayra Chapman MD Epithelial cells LM Ql (Urine sed) 2 TO 5 Normal [facility] Comment on above: Performed By: #### U [facility]UART [facility], [facility] #### [facility] [address] [place], [place] [id number] Physician Assistant Psychiatry: Zayra Chapman MD Urine RBC's 2 TO 5 Normal 0-2 [facility] Comment on above: Performed By: #### U MICAO [facility], UA #### [facility] [address] [place], [place] [id number] Physician Assistant Psychiatry: Zayra Chapman MD Urine WBC's 50 TO 100 Normal 0 [facility] Comment on above: Performed By: #### U STUART, [facility], UA #### [facility] [address] [place] [address] Physician Assistant Psychiatry: Zayra Chapman MD Yeast OCCASIONAL Abnormal NONE [facility] Comment on above: Performed By: #### U STUART, [facility], UA #### [facility] [address] [place] [address] Physician Assistant Psychiatry: Zayra Chapman MD Auto Diffon 12-06-2022 Basophils/100 WBC (Bld) 0.8 % Normal 0.0-2.0 F [facility] Comment on above: Order Comment: Order Added by Discern Expert. Performed By: #### 2 809149, [id number], [id number], [id number] #### [facility] [address] [place] [address] Basophils/Leukocytes Auto (Bld) [Pure # fraction] 0.1 E9/L Normal 0.0-0.2 [facility] Comment on above: Order Comment: Order Added by Discern Expert. Performed By: #### 2 965725, 7274704, 3298724, [id number] #### [facility] [address] [place] [address] Eosinophils/100 WBC (Bld) 0.3 % Normal 0.0-8.0 [facility] Comment on above: Order Comment: Order Added by Discern Expert. Performed By: #### 2 507480, 6409347, 6786628, [id number] #### [facility] [address] [place] [address] Eosinophils/Leukocytes Auto (Bld) [Pure # fraction] 0.0 E9/L Normal 0.0-0.5 [facility] Comment on above: Order Comment: Order Added by Discern Expert. Performed By: #### 2 724271, 0968035, 7826231, [id number] #### [facility] [address] [place] [address] Lymphocytes/100 WBC (Bld) 12.5 % Low 14.0-50.0 [facility] Comment on above: Order Comment: Order Added by Discern Expert. Performed By: #### 2 656116, 4429593, 3790155, [id number] #### [facility] [address] [place] [address] Lymphocytes/Leukocytes Auto (Bld) [Pure # fraction] 1.3 E9/L Normal 1.0-4.0 [facility] Comment on above: Order Comment: Order Added by Discern Expert. Performed By: #### 2 784324, 0158314, 6581394, [id number] #### [facility] [address] [place] [address] Monocytes/100 WBC (Bld) 4.5 % Normal 4.0-14.0 [facility] Comment on above: Order Comment: Order Added by Discern Expert. Performed By: #### 2 186962, 1619321, 2165928, [id number] #### [facility] [address] [place] [address] Monocytes/Leukocytes Auto (Bld) [Pure # fraction] 0.5 E9/L Normal 0.2-1.0 [facility] Comment on above: Order Comment: Order Added by Lois Expert. Performed By: #### 2 134740, 7766094, 9114600, [id number] #### [facility] [address] [place] [address] Neutrophils/100 WBC (Bld) 81.9 % High 36.0-75.0 [facility] Comment on above: Order Comment: Order Added by Discern Expert. Performed By: #### 2 218307, 2355372, 7558999, [id number] #### [facility] [address] [place] [address] Neutrophils/Leukocytes Auto (Bld) [Pure # fraction] 8.8 E9/L High 2.0-7.5 [facility] Comment on above: Order Comment: Order Added by Discern Expert. Performed By: #### 2 343815, 1447589, 6465324, [id number] #### [facility] [address] [place] [address] CBC w/ Auto Diffon 3 Erythrocyte distribution width (RBC) [Ratio] 13.9 % Normal 10.9-14.2 [facility] Comment on above: Performed By: #### 2 427767, 4698153, 6739569, [id number] #### [facility] [address] [place] [address] Hematocrit (Bld) [Volume fraction] 42.7 % Normal 34.0-46.0 [facility] Comment on above: Performed By: #### 2 735425, 2108541, 3178968, [id number] #### [facility] [address] [place] [address] Hemoglobin (Bld) [Mass/Vol] 14.2 g/dL Normal 12.0-16.0 [facility] Comment on above: Performed By: #### 2 510509, 1394360, 1978394, [id number] #### [facility] [address] [place] [address] MCH (RBC) [Entitic mass] 26.8 pg Low 27.0-34.0 [facility] Comment on above: Performed By: #### 2 073246, 1239448, 8091849, [id number] #### [facility] [address] [place] [address] MCHC (RBC) [Mass/Vol] 33.2 g/dL Normal 31.4-36.0 [facility] Comment on above: Performed By: #### 2 734686, 3262837, 2407642, [id number] #### [facility] [address] [place] [address] MCV (RBC) [Entitic vol] 80.8 fL Normal 80.0-100.0 F [facility] Comment on above: Performed By: #### 2 306023, 7516390, 1078324, [id number] #### [facility] [address] [place] [address] Platelet mean volume (Bld) [Entitic vol] 9.8 fL Normal 6.4-10.8 [facility] Comment on above: Performed By: #### 2 105106, 9707003, 7014021, 89575813 #### [facility] [address] [place] [address] Platelets (Bld) [#/Vol] 252.0 E9/L Normal 150.0-500.0 [facility] Comment on above: Performed By: #### 2 526101, 0147603, 0322455, [id number] #### [facility] [address] [place] [address] RBC (Bld) [#/Vol] 5.3 E12/L Normal 4.3-5.9 [facility] Comment on above: Performed By: #### 2 749569, 3882834, 4689510, [id number] #### [facility] [address] [place] [address] WBC corrected for nucl RBC Auto (Bld) [#/Vol] 10.7 E9/L Normal 4.0-11.0 [facility] Comment on above: Performed By: #### 2 799392, 9166668, 0120159, [id number] #### [facility] [address] [place] [address] CHEMISTRYOrdered By: SYSTEM SYSTEM on 12-06-2022 Albumin [...] 12-06-2022 Albumin [Mass/Vol] 4.2 g/dL Normal 3.3-5.0 [facility] Comment on above: Performed By: #### 2 026173, 3401737, 7971390, [id number] #### [facility] [address] [place] [address] Albumin/Globulin (S) [Mass conc ratio] 1.2 Normal 1.1-2.2 [facility] Comment on above: Performed By: #### 2 253558, 8826703, 5067446, 41275069 #### [facility] [address] [place] [address] ALP [Catalytic activity/Vol] 117 Int._Unit/L High 21-98 [facility] Comment on above: Performed By: #### 2 805718, 9607717, 5564758, [id number] #### [facility] [address] [place] [address] ALT No additional P-5'-P [Catalytic activity/Vol] 78 Int._Unit/L High 6-46 [facility] [facility] Comment on above: Performed By: #### 2 [id number], [id number], [id number], [id number] #### [facility] [address] [place] [address] AST [Catalytic activity/Vol] 68 Int._Unit/L High 5-43 [facility] Comment on above: Performed By: #### 2 392922, 4952912, 3790686, [id number] #### [facility] [address] [place] [address] Bilirubin [Mass/Vol] 0.7 mg/dL Normal 0.0-1.1 [facility] Comment on above: Performed By: #### 2 381960, 0141495, [id number], [id number] #### [facility] [address] [place] [address] Creatinine [Mass/Vol] 0.8 mg/dL Normal 0.5-1.3 [facility] Comment on above: Performed By: #### 2 258510, 7612389, 1685991, [id number] #### [facility] [address] [place] [address] Globulin (S) [Mass/Vol] 3.6 g/dL Normal 1.4-4.0 [facility] Comment on above: Performed By: #### 2 625300, 3114765, 4768815, [id number] #### [facility] [address] [place] [address] Protein [Mass/Vol] 7.8 g/dL Normal 6.0-7.8 [facility] Comment on above: Performed By: #### 2 439768, 5284723, 8720512, [id number] #### [facility] [address] [place] [address] Urea nitrogen [Mass/Vol] 12 mg/dL Normal 5-21 [facility] Comment on above: Performed By: #### 2 267958, 1205341, 3592807, [id number] #### [facility] [address] [place] [address] Urea nitrogen/Creatinine [Mass ratio] 15 No Units Normal 10-20 [facility] Comment on above: Performed By: #### 2 493989, 3798191, 6884514, [id number] #### [facility] [address] [place] [address] Anion gap [Moles/Vol] 15 mmol/L Normal 6-16 [facility] Comment on above: Performed By: #### 2 822100, 3950836, 0794497, [id number] #### [facility] [address] [place] [address] Calcium [Mass/Vol] 9.6 mg/dL Normal 8.9-11.1 [facility] Comment on above: Performed By: #### 2 775979, 0265144, 9501320, [id number] #### [facility] [address] [place] [address] Chloride [Moles/Vol] 104 mmol/L Normal 101-111 [facility] Comment on above: Performed By: #### 2 942554, 3562787, 3514028, 12031219 #### [facility] [address] [place] [address] CO2 [Moles/Vol] 22 mmol/L Normal 21-31 [facility] Comment on above: Performed By: #### 2 781304, 2236831, 6076318, [id number] #### [facility] [address] [place] [address] Glucose [Mass/Vol] 244 mg/dL High 55-199 [facility] Comment on above: Result Comment: If t his glucose result represents a fasting glucose, interpretation should refer to the following reference range: 55-99 mg/dL Performed By: #### 2 652703, 1725478, 8123377, [id number] #### [facility] [address] [place] [address] Potassium [Moles/Vol] 4.3 mmol/L Normal 3.5-5.3 [facility] Comment on above: Performed By: #### 2 382562, 9139642, 4376790, 17948621 #### [facility] [address] [place] [address] Sodium [Moles/Vol] 137 mmol/L Normal 135-145 [facility] Comment on above: Performed By: #### 2 434091, 2972464, 4558147, 72335232 #### [facility] [address] [place] [address] Consent for Treatmenton Consent for Treatment [id number] .[id number]:127 Normal [facility] Discharge Instructionson Discharge Instructions [id number] 1.00CD:127 Normal [facility] ED Clinical Summaryon 2022 ED Clinical Summary [address] [address] ED Clinical Summary Person Information Name: RIRI DEMPSEY/[facility] Age: 27 Years : 1995 Sex: Female Language: Barbadian PCP: GAYE BARROS Marital Status: Single Visit [...] 12/06/2022 16:43:40 12/06/2022 16:43:40 ADDRESS: [place] [facility] [id number] [facility] DOC NOTES: MEDICAL INFORMATION: Prescriptions Given: Medications to Continue with No Changes Other Medications venlafaxine (Effexor XR 150 mg Cap-ER) PATIENT EDUCATION INFORMATION: Instructions: Suicidal Feelings: How to Help Yourself Follow up: With: Address: When: [facility] In 3 days 12/09/2022 Comments: Follow safety plan. Return to the emergency department with any worsening symptoms. With: Address: When: GAYE JOSUE [address] [place] [address] [facility] ([employer] In 3 days 12/09/2022 Comments: Call the [...] in 1 month. 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 Return to the emergency department with any worsening symptoms. GAYE JOSUE In 3 days 12/09/2022 EDT [address] [facility] [place] [place] [id number] [facility] (1) Additional Instructions: Call the office [...] Known [employer] (more content not included)... Normal [facility] Comment on above: Result Comment: Elec [...] (911 in the [place] ? Call the [facility] and human services helpline (211 in the [place] ? Call or text a suicide hotline to speak with a trained counselor. The following suicide hotlines are available in the [place]: ? 3-223-602-TALK ( or 548 in the [place] ? 5-272-XZDDBBO ( ). ? Text 939387. This is the Crisis Text Line in the [place] ? . This is a hotline for [place] speakers. ? . This is a hotline for TTY users. ? 3-609-8-U-YASHIRA ( ). This is a hotline for [...] list of crisis centers in [place], visit: suicideprevention.oh How to help yourself feel better ? [...] anyone or being with other people. ? Enxc-od-grtr conversation is best to help them understand [...] and a mental health checkup. ? Take ihpw-jrv-ghwlbzd and prescription medicines only as told by [...] will hel (more content not included)... Normal [facility] ED Patient Summaryon 023 ED Patient Summary [place] [id number] Patient Discharge Instructions Person Information Name: RIRI DEMPSEY Age: 27 Years Arrival Date: 12/06/2022 13:19:47 Discharge Diagnosis: Situational stress Primary Care Physician: GAYE BARROS Provider Information Primary Provider: Graham Choe DO Advanced Child Attendant:None The exam and treatment you received in the Emergency Department were for an urgent problem and are not intended as complete care. It is important that you follow up with a doctor, nurse practitioner, or physician?s financial planning assistant for ongoing care. If your symptoms become worse or you do not improve as expected and you are unable to reach your usual health care provider, you should return to the Emergency Department. We are available 24 hours a day. RIRI DEMPSEY has been given the following list of patient education materials, prescriptions and follow-up instructions: Follow-up Instructions: With: Address: When: [facility] In 3 days 12/09/2022 Comments: Follow safety plan. Return to the emergency department with any worsening symptoms. With: Address: When: GAYE JOSUE [address] [place] [address] [facility] (1) In 3 days 12/09/2022 Comments: [...] opioids can be used to help relieve pdjusibs-wq-pgfujj pain and are often prescribed following a [...] and katja (more content not included)... Normal [facility] Ethanolon 12-06-2022 Ethanol [Mass/Vol] mg/dL Normal <=7 [facility] Comment on above: Performed By: #### 2 [id number] ####[facility] [address] [place] [address] HEMATOLOGYOrdered By: SYSTEM SYSTEM on 12-06-2022 Basophils/100 [...] with NPD at time of arrival Normal [facility] SEROLOGYOrdered By: Antonio Stevens on 12-06-2022 HCG.beta subunit (U) [Moles/Vol] Negative Normal [facility] Man Sero U BetaHcg Qualon 12-06-2022 HCG.beta subunit (U) [Moles/Vol] Negative Normal [facility] Comment on above: Performed By: #### 2 [id number] #### [facility] [address] [place] [address] U Drug Screenon 12-06-2022 Benzodiazepines Ql (U) Positive Abnormal Negative Fi [facility] Comment on above: Result Comment: Crit ical Result verified by repeat analysis\No confirmation requested by Physican\Unconfirmed by alternate method\Critical Result UD_BENZ:POS Called to [facility] ER by JOEL STEVENS And Read Back For Confirmation at: 12/06/2022 14:42:33 Negative Cutoff: <200 ng/mL Performed By: #### 2 [id number] ####[place] [address] [place] [address] Tetrahydrocannabinol Screen method >50 ng/mL Ql (U) Positive Abnormal Negative [facility] Comment on above: Result Comment: Crit ical Result verified by repeat analysis\No confirmation requested by Physican\Unconfirmed by alternate method\Critical Result UD_THC:POS Called to [facility] ER by JOEL STEVENS And Read Back For Confirmation at: 12/06/2022 14:42:33 Negative Cutoff: <50 ng/mL Performed By: #### 2 950646 ####[place] [address] [place] [address] Amphetamines Screen method >1000 ng/mL Ql (U) Negative Normal Negative [facility] Comment on above: Result Comment: Nega tive Cutoff: <1000 ng/mL Performed By: #### 2 730843 ####[facility] [address] [place] [address] Barbiturates Screen Ql (U) Negative Normal Negative [facility] Comment on above: Result Comment: Nega tive Cutoff: <200 ng/mL Performed By: #### 2 860800 ####[facility] [address] [place] [address] Cocaine Ql (U) Negative Normal Negative [facility] Comment on above: Result Comment: Nega tive Cutoff: <300 ng/mL Performed By: #### 2 185138 ####[facility] [address] [place] [address] Opiates Screen Ql (U) Negative Normal Negative [facility] Comment on above: Result Comment: Nega tive Cutoff: <300 ng/mL Performed By: #### 2 999801 ####[facility] [address] [place] [address] Phencyclidine Screen method >25 ng/mL Ql (U) Negative Normal Negative [facility] Comment on above: Result Comment: Nega tive Cutoff: <25 ng/mL These drug screen results are to be used for medical (i.e., treatment) purposes only. Unconfirmed drug screening results must not be used for non-medical purposes (e.g., employment testing, legal testing). Performed By: #### 2 941756 ####[facility] [address] [place] [address] eGFRon 12-06-2022 GFR/1.73 sq M.predicted among non-blacks MDRD (S/P/Bld) [Vol rate/Area] 105 mL/min/1.73 m2 Normal >=59 [facility] Comment on above: Order Comment: Order added by Discern Expert. Result Comment: Tailercpa dayanna kidney disease could be indicated at eGFR's of less than 60 mL/min/1.73m2. Kidney failure is indicated at less than 15 mL/min/1.73m2. Performed By: #### 2 989575, 8904551, 6087945, [id number] ####[facility] [address] [place] [address] Basic Metabolic Panelon 06-05 Anion gap [Moles/Vol] 11 mmol/L 9 - 17 mmol/L [facility] Calcium [Mass/Vol] 9.5 mg/dL 8.6 - 10. 4 mg/dL [facility] Chloride [Moles/Vol] 103 mmol/L 98 - 10 7 mmol/L [facility] CO2 [Moles/Vol] 27 mmol/L 20 - 31 mmol/L [facility] Creatinine [Mass/Vol] 0.57 mg/dL 0.50 - 0.90 mg/dL [facility] GFR/1.73 sq M.predicted MDRD (S/P/Bld) [Vol rate/Area] - PINF [facility] Comment on above: These results [...] 154 mg/dL High 70 - 99 mg/dL [facility] Interpretation and review of laboratory results Abnormal [facility] Potassium [Moles/Vol] 4.2 mmol/L 3.7 - 5.3 mmol/L [facility] Sodium [Moles/Vol] 141 mmol/L 135 - 144 mmol/L [facility] Urea nitrogen [Mass/Vol] 12 mg/dL 6 - 20 mg/dL [facility] Urea nitrogen/Creatinine (Bld) [Mass ratio] 21 High 9 - 20 [facility] CBC with Auto Differentialon 06-16-2022 Absolute Eos # 0.10 [place] [facility] Absolute Lymph # 1.[address] [facility] URS [facility] Absolute Runnels # 0.40 [facility] Basophils (Bld) [#/Vol] 0.00 10*3/uL [facility] Basophils/100 WBC (Bld) 1 % 0 - 2 % [facility] Differential Type [facility] Eosinophils/100 WBC (Bld) 1 % 0 - 5 % [facility] Hematocrit (Bld) [Volume fraction] 40.3 % 36 - 46 % [facility] Hemoglobin (Bld) [Mass/Vol] 13.0 g/dL 12.0 - 16.0 g/dL [facility] Lymphocytes/100 WBC (Bld) 23 % 15 - 40 % [facility] MCH (RBC) [Entitic mass] 27.2 pg 26 - 34 pg [facility] MCHC (RBC) [Mass/Vol] 32.4 g/dL 31 - 3 7 g/dL [facility] MCV (RBC) [Entitic vol] 84.1 fL 80 - 100 fL [facility] Monocytes/100 WBC (Bld) 5 % 4 - 8 % [facility] Platelet distribution width (Bld) [Ratio] 13.9 % 12.1 - 15.2 % [facility] Platelets (Bld) [#/Vol] 225 10*3/uL [facility] RBC (Bld) [#/Vol] 4.79 10*6/uL 4.0 - 5.2 m/uL [facility] Segmented neutrophils/100 WBC (Bld) 70 % 47 - 75 % [facility] Segs Absolute 5.70 [facility] WBC (Bld) [#/Vol] 8.2 10*3/uL [facility] CT HEAD WO CONTRASTon 2022 No acute intracranial abnormality. FOLLOW-UP: Follow-up as clinically indicated. [facility] EXAM: CT HEAD WO CONTRAST 06/16/2022 2:34 AM EST [facility] CLINICAL STATEMENT: Has a code stroke or [...] orbits and the paranasal sinuses are normal. [facility] Trang Mcgregor MD - 06/16/2022 EXAM: CT HEAD WO CONTRAST 06/16/2022 2:34 AM EST [facility] CLINICAL STATEMENT: Has a code stroke or [...] abnormality. FOLLOW-UP: Follow-up as clinically indicated. [facility] [employer] Work Phone: Radiology Study observation (narrative) JULIANO PADILLA [employer] Work Phone: CT HEAD WO CONTRASTOrdered B y: Trang Said on 06-16-2022 [employer] Work Phone: HCG Qualitative, Serumon hCG Qual Negative NEGATIVE [facility] [employer] Comment on above: Specimens with hCG l evels near the threshold of the test (25 mIU/mL) may give a negative or indeterminate result. In such cases, another test should be performed with a new specimen in 48-72 hours. If early is suspected clinically in this setting, correlation with quantitative serum b-hCG level is suggested. [employer] has confirmed the use of plasma for this test. This has not been cleared or approved by the [place]. Food and Drug Administration. The FDA has determined that such clearance is not necessary. [facility] Urinalysison 06-16-2022 Bilirubin Urine Negative [facility] [employer] Color, UA Yellow Yellow [facility] [employer] Glucose Auto test strip (U) [Mass/Vol] Negative NEGATIVE [facility] Interpretation and review of laboratory results Abnormal [facility] [employer] Ketones (U) [Mass/Vol] Negative NEGATIVE [facility] [employer] Leukocyte esterase Auto test strip Ql (U) Negative NEGATIVE [facility] [employer] Nitrite Auto test strip Ql (U) Negative NEGATIVE [facility] [employer] Protein (U) [Mass/Vol] 7.0 mg/dL 5.0 - 8.0 [facility] [employer] Protein (U) [Mass/Vol] TRACE Abnormal NEGATIVE [facility] [employer] Specific [place], UA 1.005 1.005 - 1.030 [facility] Turbidity UA Clear Clear [facility] Urinalysis Comments JULIANO Lee [facility] Urine Hgb Negative NEGATIVE [facility] Urobilinogen, Urine Normal Normal JULIANO Lee [facility] JULIANO [facility] XR LUMBAR SPINE (MIN 4 VIEWS )on 03-13-2022 No degenerative change, discitis or fracture. [facility] CONSOLIDATED EXAM: XR LUMBAR SPIN E (MIN 4 VIEWS) HISTORY: Reason for exam:->midline low back pain [facility] Quinn Roberto Jr., MD - 03/13/2022 EXAM: XR LUMBAR SPINE (MIN 4 VIEWS) HISTORY: Reason for exam:->midline low back pain IMPRESSION: No degenerative change, discitis or fracture. [facility] [employer] Work Phone: Radiology Study observation (narrative) [facility] [employer] Work Phone: XR LUMBAR SPINE (MIN 4 VIEWS )Ordered By: Quinn Roberto on 03-13-2022 [facility] Work Phone: CBC AUTO DIFFon 10-04-2021 BASO # 0.0 103/ul Normal 0.0-0.1 [facility] Comment on above: Performed By: #### H H #### [facility] [address] [place] [address] [address] Ramya Ramey Basophils/100 WBC (Bld) 0.2 % Normal 0.2-2.0 [facility] Comment on above: Performed By: #### H H #### [facility] [address] [place] [address] [address] Ramya Ramey EO # 0.1 103/ul Normal 0.0-0.7 [facility] Comment on above: Performed By: #### H H #### [facility] [address] [place] [address] [address] Ramya Ramey Eosinophils/100 WBC (Bld) 0.7 % Critically low 0.9-7.0 [facility] Comment on above: Performed By: #### H H #### [facility] [address] [place] [address] Dr. Ramya Ramey Erythrocyte distribution width (RBC) [Ratio] 13.4 % Normal 11.0-15.0 [facility] Comment on above: Performed By: #### H H #### [facility] [address] [place] [address] Dr. Ramya Raemy Hematocrit (Bld) [Volume fraction] 29.4 % Critically low 36.0-48.0 [facility] Comment on above: Performed By: #### H H #### [facility] [address] [place] [address] Dr. Ramya Ramey Hemoglobin (Bld) [Mass/Vol] 9.5 g/dL Critically low 12.0-16.0 [facility] Comment on above: Performed By: #### H H #### [facility] [address] [place] [address] Dr. Ramya Ramey IG # 0.06 10e3/ul Critically high 0.00-0.03 [facility] Comment on above: Performed By: #### H H #### [facility] [address] [place] [address] Dr. Ramya Ramey IG % 0.5 % Normal 0.0-0.5 [facility] Comment on above: Performed By: #### H H #### [facility] [address] [place] [address] Dr. Ramya Ramey LYMPH # 1.3 103/ul Normal 1.2-3.8 [facility] Comment on above: Performed By: #### H H #### [facility] [address] [place] [address] Dr. Ramya Ramey Lymphocytes/100 WBC (Bld) 11.5 % Critically low 20.5-60.0 [facility] Comment on above: Performed By: #### H H #### [facility] [address] [place] [address] Dr. Ramya Ramey MANUAL DIFF REQ NO Normal [facility] Comment on above: Performed By: #### H H #### [facility] [address] [place] [address] Dr. Ramya Ramey MCH (RBC) [Entitic mass] 28.4 pg Normal 26.7-34.0 [facility] Comment on above: Performed By: #### H H #### [facility] [address] [address] [address] Ramya Ramey MCHC (RBC) [Mass/Vol] 32.3 g/dL Normal 29.9-35.2 [facility] Comment on above: Performed By: #### H H #### [facility] [address] [address] [address] Ramya Ramey MCV (RBC) [Entitic vol] 88.0 fL Normal 81.0-99.0 [facility] Comment on above: Performed By: #### H H #### [facility] [address] [place] [address] Dr. Ramya Ramey MONO # 0.7 103/ul Normal 0.3-0.8 [facility] Comment on above: Performed By: #### H H #### [facility] [address] [place] [address] Dr. Ramya Ramey Monocytes/100 WBC (Bld) 5.9 % Normal 1.7-12.0 [facility] Comment on above: Performed By: #### H H #### [facility] [address] [place] [address] Dr. Ramya Ramey NEUT # 9.4 103/ul Critically high 1.4-6.5 [facility] Comment on above: Performed By: #### H H #### [facility] [address] [address] [address] Ramya Ramey Neutrophils/100 WBC (Bld) 81.2 % Critically high 43.0-75.0 [facility] Comment on above: Performed By: #### H H #### [facility] [address] [address] [address] Ramya Raemy Platelet mean volume (Bld) [Entitic vol] 11.9 fL Normal 9.5-13.5 [facility] Comment on above: Performed By: #### H H #### [facility] [address] [address] [address] Ramya Ramey PLT 162 103/ul Normal 150-450 [facility] Comment on above: Performed By: #### H H #### [facility] [address] [place] [address] Dr. Ramya Ramey RBC 3.34 106/ul Critically low 4.20-5.40 [facility] Comment on above: Performed By: #### H H #### [facility] [address] [address] [address] Ramya Ramey WBC 11.5 103/ul Critically high 4.0-11.0 [facility] Comment on above: Performed By: #### H H #### [facility] [address] [place] [address] Dr. Ramya Ramey CBC AUTO DIFFon 10-03-2021 BASO # 0.0 103/ul Normal 0.0-0.1 [facility] Comment on above: Performed By: #### H H #### [facility] [address] [place] [address] Dr. Ramya Ramey Basophils/100 WBC (Bld) 0.2 % Normal 0.2-2.0 [facility] Comment on above: Performed By: #### H H #### [facility] [address] [place] [address] Dr. Ramya Ramey EO # 0.1 103/ul Normal 0.0-0.7 [facility] Comment on above: Performed By: #### H H #### [facility] [address] [place] [address] Dr. Ramya Ramey Eosinophils/100 WBC (Bld) 0.9 % Normal 0.9-7.0 [facility] Comment on above: Performed By: #### H H #### [facility] [address] [place] [address] Dr. Ramya Ramey Erythrocyte distribution width (RBC) [Ratio] 13.3 % Normal 11.0-15.0 [facility] Comment on above: Performed By: #### H H #### [facility] [address] [place] [address] Dr. Ramya Ramey Hematocrit (Bld) [Volume fraction] 34.8 % Critically low 36.0-48.0 [facility] Comment on above: Performed By: #### H H #### [facility] [address] [place] [address] Dr. Ramya Ramey Hemoglobin (Bld) [Mass/Vol] 11.2 g/dL Critically low 12.0-16.0 [facility] Comment on above: Performed By: #### H H #### [facility] [address] [address] [address] Ramya Ramey IG # 0.07 10e3/ul Critically high 0.00-0.03 [facility] Comment on above: Performed By: #### H H #### [facility] [address] [place] [address] Dr. Ramya Ramey IG % 0.6 % Critically high 0.0-0.5 [facility] Comment on above: Performed By: #### H H #### [facility] [address] [place] [address] Dr. Ramya Ramey LYMPH # 1.5 103/ul Normal 1.2-3.8 [facility] Comment on above: Performed By: #### H H #### [facility] [address] [place] [address] Dr. Ramya Ramey Lymphocytes/100 WBC (Bld) 13.4 % Critically low 20.5-60.0 [facility] Comment on above: Performed By: #### H H #### [facility] [address] [place] [address] Dr. Ramya Ramey MANUAL DIFF REQ NO Normal The [facility] Comment on above: Performed By: #### H H #### [facility] [address] [place] [address] Dr. Ramya Ramey MCH (RBC) [Entitic mass] 28.3 pg Normal 26.7-34.0 [facility] Comment on above: Performed By: #### H H #### [facility] [address] [place] [address] Dr. Ramya Ramey MCHC (RBC) [Mass/Vol] 32.2 g/dL Normal 29.9-35.2 [facility] Comment on above: Performed By: #### H H #### [facility] [address] [place] [address] Dr. Ramya Ramey MCV (RBC) [Entitic vol] 87.9 fL Normal 81.0-99.0 [facility] Comment on above: Performed By: #### H H #### [facility] [address] [place] [address] Dr. Ramya Ramey MONO # 0.5 103/ul Normal 0.3-0.8 [facility] Comment on above: Performed By: #### H H #### [facility] [address] [place] [address] Dr. Ramya Ramey Monocytes/100 WBC (Bld) 4.8 % Normal 1.7-12.0 [facility] Comment on above: Performed By: #### H H #### [facility] [address] [place] [address] Dr. Ramya Ramey NEUT # 8.9 103/ul Critically high 1.4-6.5 [facility] Comment on above: Performed By: #### H H #### [facility] [address] [place] [address] Dr. Ramya Ramey Neutrophils/100 WBC (Bld) 80.1 % Critically high 43.0-75.0 [facility] Comment on above: Performed By: #### H H #### [facility] [address] [place] [address] Dr. Ramya Ramey Platelet mean volume (Bld) [Entitic vol] 11.8 fL Normal 9.5-13.5 [facility] Comment on above: Performed By: #### H H #### [facility] [address] [place] [address] Dr. Ramya Ramey PLT 194 103/ul Normal 150-450 [facility] Comment on above: Performed By: #### H H #### [facility] [address] [place] [address] Dr. Ramya Ramey RBC 3.96 106/ul Critically low 4.20-5.40 [facility] Comment on above: Performed By: #### H H #### [facility] [address] [place] [address] Dr. Ramya Ramey WBC 11.1 103/ul Critically high 4.0-11.0 [facility] Comment on above: Performed By: #### H H #### [facility] [address] [place] [address] Dr. Ramya Rmaey Covid-19 PCR ([facility])on SARS-CoV-2 (COVID-19) RNA JAKE+probe Ql (Unsp spec) Not detected Normal NOT DETECTED [facility] Comment on above: Result Comment: When [...] for this test is supported by the [place] of [employer] and Human Service's declaration that [...] used). Performed By: #### H H #### [facility] [address] [place] [address] Dr. Ramya Ramey DRUG SCREEN RAPID (URINE)on 10-03-2021 AMP Negative Normal NEGATIVE [facility] Comment on above: Performed By: #### H H #### [facility] [address] [place] [address] Dr. Ramya Ramey BAR Negative Normal NEGATIVE [facility] Comment on above: Performed By: #### H H #### [facility] [address] [place] [address] Dr. Ramya Ramey BUP Negative Normal NEGATIVE [facility] Comment on above: Performed By: #### H H #### [facility] [address] [place] [address] Dr. Ramya Ramey BZO Negative Normal NEGATIVE [facility] Comment on above: Performed By: #### H H #### [facility] [address] [place] [address] Dr. Ramya Ramey ANIBAL Negative Normal NEGATIVE [facility] Comment on above: Performed By: #### H H #### [facility] [address] [place] [address] Dr. Ramya Ramey CUT-OFFS SEE BELOW Normal [facility] Comment on above: Result Comment: AMP (Amphetamine): 500ng/mL, BAR (Barbituates): 200 ng/mL, BZO (Benzodiazepines): 150 ng/mL, BUP (Buprenorphine): 10 ng/mL, ANIBAL (Cocaine): 150 ng/mL, mAMP (Methamphetamine): 500 ng/mL, MTD (Methadone): 200 ng/mL, OPI (Opiates): 100 ng/mL, OXY (Oxycodone): 100 ng/mL, PCP (Phencyclidine): 25 ng/mL, PPX (Propoxyphene): 300 ng/mL, THC (Cannabinoids): 50 ng/mL, TCA (Trycyclic Antidepressants): 300 ng/mL Performed By: #### H H #### [facility] [address] [place] [address] Dr. Ramya Ramey DRUG CUT HEADER DRUG CLASS TEST SYSTEM CUT-OFF CONCENTRATIONS ARE FOLLOWS: Normal [facility] Comment on above: Performed By: #### H H #### [facility] [address] [place] [address] Dr. Ramya Ramey mAMP Negative Normal NEGATIVE [facility] Comment on above: Performed By: #### H H #### [facility] [address] [place] [address] Dr. Ramya Ramey MTD Negative Normal NEGATIVE [facility] Comment on above: Performed By: #### H H #### [facility] [address] [place] [address] Dr. Ramya Ramey OPI Negative Normal NEGATIVE [facility] Comment on above: Performed By: #### H H #### [facility] [address] [address] [address] Ramya Ramey OXY Negative Normal NEGATIVE [facility] Comment on above: Performed By: #### H H #### [facility] [address] [address] [address] Ramya Ramey PCP Negative Normal NEGATIVE [facility] Comment on above: Performed By: #### H H #### [facility] [address] [address] [address] Ramya Ramey PPX Negative Normal NEGATIVE [facility] Comment on above: Performed By: #### H H #### [facility] [address] [address] [address] Ramya Ramey TCA Negative Normal NEGATIVE [facility] Comment on above: Performed By: #### H H #### [facility] [address] [address] [address] Ramya Ramey THC Negative Normal NEGATIVE [facility] Comment on above: Performed By: #### H H #### [facility] [address] [address] [address] Ramya Ramey POINT OF CARE GLUCOSEon Glucose [Mass/Vol] 126 mg/dL Critically high 74-106 T [facility] Comment on above: Performed By: #### P OCGLUC #### [facility] [address] [address] [address] Ramya Ramey TYPE AND SCREENon 10-03-2021 TYPE AND SCREEN Negative Normal [facility] Comment on above: Performed By: #### P OCGLUC #### [facility] [address] [address] [address] Ramya Ramey CULTURE URINEon 10-01-2021 CULTURE URINE Culture Observations : LIGHT GROWTH OF MIXED GENITAL LEANA. NO POTENTIAL PATHOGENS SEEN. Normal [facility] Comment on above: Performed By: #### P OCGLUC #### [facility] [address] [address] [address] Ramya Ramey POINT OF CARE GLUCOSEon 09-04 Glucose [Mass/Vol] 134 mg/dL Critically high 74-106 T he [facility] Comment on above: Performed By: #### P OCGLUC #### [facility] [address] [address] [address] Ramya Ramey UA (CLEAN/CATCH) COMPUTER SCIENCE PROFESSOR/MICRO I F IND.on 10-01-2021 Bilirubin Ql (U) Negative Normal NEGATIVE [facility] Comment on above: Performed By: #### U ACSIND, UMICRO #### [facility] [address] [address] [address] Ramya Ramey Clarity (U) CLEAR Normal CLEAR [facility] Comment on above: Performed By: #### U ACSIND, UMICRO #### [facility] [address] [address] [address] Ramya Ramey Color (U) YELLOW Normal YELLOW [facility] Comment on above: Performed By: #### U ACSIND, UMICRO #### [facility] [address] [address] [address] Ramya Ramey Glucose Ql (U) Negative Normal NEGATIVE [facility] Comment on above: Performed By: #### U ACSIND, UMICRO #### [facility] [address] [address] [address] Ramya Ramey Hemoglobin Ql (U) Negative Normal NEGATIVE [facility] Comment on above: Performed By: #### U ACSIND, UMICRO #### [facility] [address] [address] [address] Ramya Ramey Ketones Ql (U) Negative Normal NEGATIVE [facility] Comment on above: Performed By: #### U ACSIND, UMICRO #### [facility] [address] [address] [address] Ramya Ramey LEUKOCYTES LARGE Abnormal NEGATIVE [facility] Comment on above: Performed By: #### U ACSIND, UMICRO #### [facility] [address] [place] [address] Dr. Ramya Ramey Nitrite Ql (U) Negative Normal NEGATIVE [facility] Comment on above: Performed By: #### U ACSIND, UMICRO #### [facility] [address] [address] [address] Ramya Ramey pH (U) 6.5 [pH] Normal 5-9 [facility] Comment on above: Performed By: #### U ACSCLOVER UMICRO #### [facility] [address] [address] [address] Ramya Ramey SPEC GRAVITY 1.010 Normal 1.005-<=1.[address] [facility] Comment on above: Performed By: #### U ACSCLOVER UMICRO #### [facility] [address] [address] [address] Ramya Ramey UA PROTEIN Negative Normal NEGATIVE/ TRACE [facility] Comment on above: Performed By: #### U ACSCLOVER UMICRO #### [facility] [address] [place] [address] Dr. Ramya Ramey UR MICRO IND INDICATED Normal [facility] Comment on above: Performed By: #### U RHYS UMICRO #### [facility] [address] [place] [address] Dr. Ramya Ramey Urobilinogen Qn (U) 0.2 {Sariah'U}/dL Normal 0.2 - 1. 0 [facility] Comment on above: Performed By: #### U ACSCLOVER UMICRO #### [facility] [address] [place] [address] Dr. Ramya Ramey URINE MICROSCOPIC ONLYon BACTERIA LARGE Abnormal NONE SEEN The [facility] Comment on above: Performed By: #### U ACSCLOVER UMICRO #### [facility] [address] [place] [address] Dr. Ramya Ramey Bacteria identified Cx Nom (U) INDICATED Normal [facility] Comment on above: Performed By: #### U ACSCLOVER UMICRO #### [facility] [address] [place] [address] Dr. Ramya Ramey CAST NONE SEEN Normal NONE SEEN The [facility] Comment on above: Performed By: #### U ACSCLOVER UMICRO #### [facility] [address] [place] [address] Dr. Ramya Ramey Crystals LM Nom (Urine sed) NONE SEEN Normal NONE SEEN The [facility] Comment on above: Performed By: #### U ACSIND, UMICRO #### [facility] [address] [place] [address] Dr. Ramya Ramey Epithelial cells LM Ql (Urine sed) MANY Abnormal NONE SEEN /RARE [facility] Comment on above: Performed By: #### U ACSIND, UMICRO #### [facility] [address] [address] [address] Ramya Ramey MUCOUS TRACE Abnormal NONE SEEN [facility] Comment on above: Performed By: #### U ACSCLOVER, UMICRO #### [facility] [address] [place] [address] Dr. Ramya Ramey RBC 5-10 Abnormal 0-2 [facility] Comment on above: Performed By: #### U ACSCLOVER, UMICRO #### [facility] [address] [place] [address] Dr. Ramya Ramey WBC 75-100 Abnormal NONE SEEN The [facility] Comment on above: Performed By: #### U ACSIND, UMICRO #### [facility] [address] [place] [address] Dr. Ramya Ramey GROUP B STREP CULTUREon [...] F Tetracycline >=16 R F Normal The [facility] Comment on above: Performed By: #### G BSCX #### [facility] [address] [place] [address] Dr. Ramya Ramey US PREG BIOPHY W [...] by: MARY CRAFT Date: 2021-09-26 10:[address] [facility] US PREG GROWTHon 09-26-2021 US PREG GROWTH [...] by: MARY CRAFT Date: 2021-09-26 10:[address] [facility] US PREG BIOPHY W NON STRESSo n [...] by: ZAYRA ORTIZ Date: 2021-09-20 07:[address] [facility] US PREG BIOPHY W NON STRESSo n [...] by: MARY CRAFT Date: 2021-09-12 16:[address] [facility] US PREG BIOPHY W NON STRESSo n [...] by: MARY CRAFT Date: 2021-09-05 16:[address] [facility] US PREG BIOPHY W NON STRESSo n [...] by: ZAYRA ORTIZ Date: 2021-08-31 07:[address] [facility] US PREG BIOPHY W NON STRESSo n [...] ZAYRA ORTIZ Date: 2021-08-30 07:11 Normal The [facility] US PREG GROWTHon 08-30-2021 US PREG [...] ZAYRA ORTIZ Date: 2021-08-30 07:10 Normal [facility] CULTURE URINEon 08-24-2021 CULTURE URINE Culture Observations : MODERATE GROWTH OF MIXED GENITAL LEANA. NO POTENTIAL PATHOGENS SEEN. Normal [facility] Comment on above: Performed By: #### P OCGLUC #### [facility] [address] [address] [address] Ramya Ramey POINT OF CARE GLUCOSEon 08-04 Glucose [Mass/Vol] 132 mg/dL Critically high 74-106 T [facility] Comment on above: Performed By: #### H H #### [facility] [address] [address] [address] Ramya Ramey UA (CLEAN/CATCH) COMPUTER SCIENCE PROFESSOR/MICRO I F IND.on 08-24-2021 Bilirubin Ql (U) Negative Normal NEGATIVE [facility] Comment on above: Performed By: #### U ACSIND, UMICRO #### [facility] [address] [address] [address] Ramya Ramey Clarity (U) CLEAR Normal CLEAR [facility] Comment on above: Performed By: #### U ACSIND, UMICRO #### [facility] [address] [place] [address] Dr. Ramya Ramey Color (U) YELLOW Normal YELLOW [facility] Comment on above: Performed By: #### U ACSIND, UMICRO #### [facility] [address] [address] [address] Ramya Ramey Glucose Ql (U) 250 mg/dl Abnormal NEGATIVE [facility] Comment on above: Performed By: #### U ACSIND, UMICRO #### [facility] [address] [address] [address] Ramya Ramey Hemoglobin Ql (U) TRACE-INTACT Abnormal NEGATIVE [facility] Comment on above: Performed By: #### U ACSIND, UMICRO #### [facility] [address] [address] [address] Ramya Ramey Ketones Ql (U) Negative Normal NEGATIVE [facility] Comment on above: Performed By: #### U ACSIND, UMICRO #### [facility] [address] [address] [address] Ramya Ramey LEUKOCYTES MODERATE Abnormal NEGATIVE [facility] Comment on above: Performed By: #### U ACSIND, UMICRO #### [facility] [address] [address] [address] Ramya Ramey Nitrite Ql (U) Negative Normal NEGATIVE [facility] Comment on above: Performed By: #### U ACSCLOVER UMICRO #### [facility] [address] [place] [address] Dr. Ramya Ramey pH (U) 6.0 [pH] Normal 5-9 [facility] Comment on above: Performed By: #### U ACSCLOVER UMICRO #### [facility] [address] [place] [address] Dr. Ramya Ramey SPEC GRAVITY 1.020 Normal 1.005-<=1.[address] [facility] Comment on above: Performed By: #### U ACSCLOVER UMICRO #### [facility] [address] [place] [address] Dr. Ramya Ramey UA PROTEIN TRACE Normal NEGATIVE/ TRACE [facility] Comment on above: Performed By: #### U ACSCLOVER UMICRO #### [facility] [address] [place] [address] Dr. Ramya Ramey UR MICRO IND INDICATED Normal [facility] Comment on above: Performed By: #### U ACSCLOVER UMICRO #### [facility] [address] [place] [address] Dr. Ramya Ramey Urobilinogen Qn (U) 0.2 {Sariah'U}/dL Normal 0.2 - 1. 0 [facility] Comment on above: Performed By: #### U ACSCLOVER UMICRO #### [facility] [address] [place] [address] Dr. Ramya Ramey URINE MICROSCOPIC ONLYon BACTERIA MODERATE Abnormal NONE SEEN [facility] Comment on above: Performed By: #### U ACSCLOVER UMICRO #### [facility] [address] [place] [address] Dr. Ramya Ramey Bacteria identified Cx Nom (U) INDICATED Normal [facility] Comment on above: Performed By: #### U ACSCLOVER UMICRO #### [facility] [address] [place] [address] Dr. Ramya Ramey CAST NONE SEEN Normal NONE SEEN [facility] Comment on above: Performed By: #### U ACSIND, UMICRO #### [facility] [address] [address] [address] Ramya Ramey Crystals LM Nom (Urine sed) NONE SEEN Normal NONE SEEN [facility] Comment on above: Performed By: #### U ACSIND, UMICRO #### [facility] [address] [place] [address] Dr. Ramya Ramey Epithelial cells LM Ql (Urine sed) MANY Abnormal NONE SEEN /RARE [facility] Comment on above: Performed By: #### U ACSIND, UMICRO #### [facility] [address] [place] [address] Dr. Ramya Ramey MUCOUS NONE SEEN Normal NONE SEEN [facility] Comment on above: Performed By: #### U ACSIND, UMICRO #### [facility] [address] [place] [address] Dr. Ramya Ramey RBC 2-5 Abnormal 0-2 [facility] Comment on above: Performed By: #### U ACSIND, UMICRO #### [facility] [address] [place] [address] Dr. Ramya Ramey WBC 10-20 Abnormal NONE SEEN [facility] Comment on above: Performed By: #### U ACSIND, UMICRO #### [facility] [address] [place] [address] Dr. Ramya Ramey HEPATITIS C ANTIBODYon 07-18 Hep C Virus Ab <0.1 Normal 0.0-0.9 [facility] Comment on above: Result Comment: Nega tive: < 0.8 Indeterminate: 0.8 - 0.9 Positive: > 0.9 . The CDC recommends that a positive HCV antibody result be followed up with a HCV Nucleic Acid Amplification test (931403). Performed By: #### H CV #### [facility] [address] [place] [address] Dr. Ramya Ramey ABO AND RH TYPEon 07-17-2021 ABO and Rh group Nom (Bld) ABO Rh Typing B Rh Positive Normal [facility] Comment on above: Performed By: #### P OCGLUC #### [facility] [address] [place] [address] Dr. Ramya Ramey GLUCOSE - 1HRon 07-17-2021 Glucose [Mass/Vol] 238 mg/dL Critically high 74-106 T [facility] Comment on above: Performed By: #### G LU1HR #### [facility] [address] [place] [address] Dr. Ramya Ramey GLYCOHEMOGLOBIN A1Con 2021 ADA RECOMMENDATION ADA THERAPEUTIC TARGET 6.0 - 7.0 ACTION SUGGESTED > 7.[address] [facility] Comment on above: Performed By: #### H H #### [facility] [address] [place] [address] Dr. Ramya Ramey Glucose [Mass/Vol] 120 mg/dL Normal [facility] Comment on above: Performed By: #### H H #### [facility] [address] [place] [address] Dr. Ramya Ramey HbA1c (Bld) [Mass fraction] 5.8 % Normal <=6.0 [facility] Comment on above: Performed By: #### H H #### [facility] [address] [place] [address] Dr. Ramya Ramey HEMOGRAM AND PLATELon 2021 Hematocrit (Bld) [Volume fraction] 33.3 % Critically low 36.0-48.0 [facility] Comment on above: Performed By: #### H H #### [facility] [address] [place] [address] Dr. Ramya Ramey Hemoglobin (Bld) [Mass/Vol] 10.8 g/dL Critically low 12.0-16.0 [facility] Comment on above: Performed By: #### H H #### [facility] [address] [place] [address] Dr. Ramya Ramey MCH (RBC) [Entitic mass] 28.9 pg Normal 26.7-34.0 [facility] Comment on above: Performed By: #### H H #### [facility] [address] [place] [address] Dr. Ramya Ramey MCHC (RBC) [Mass/Vol] 32.4 g/dL Normal 29.9-35.2 [facility] Comment on above: Performed By: #### H H #### [facility] [address] [place] [address] Dr. Ramya Ramey MCV (RBC) [Entitic vol] 89.0 fL Normal 81.0-99.0 [facility] Comment on above: Performed By: #### H H #### [facility] [address] [place] [address] Dr. Ramya Ramey PLT 217 103/ul Normal 150-450 [facility] Comment on above: Performed By: #### H H #### [facility] [address] [place] [address] Dr. Ramya Ramey RBC 3.74 106/ul Critically low 4.20-5.40 [facility] Comment on above: Performed By: #### H H #### [facility] [address] [place] [address] Dr. Ramya Ramey WBC 11.5 103/ul Critically high 4.0-11.0 [facility] Comment on above: Performed By: #### H H #### [facility] [address] [place] [address] Dr. Ramya Ramey CHLAMYDIA/GONOCOCCUS JAKE ( AB/URINE/PAPon 06-21-2021 Chlamydia trachomatis, JAKE Negative Normal Negative [facility] Comment on above: Performed By: #### C T/NGNA #### [facility] [address] [place] [address] Dr. Ramya Ramey Neisseria gonorrhoeae, JAKE Negative Normal Negative [facility] Comment on above: Performed By: #### C T/NGNA #### [facility] [address] [place] [address] Dr. Ramya Ramey VAGINITIS/VAGINOSIS DNA PROB [facility] 06-20-2021 Teetee species Negative Normal Negative The [facility] Comment on above: Performed By: #### H H #### [facility] [address] [place] [address] Dr. Ramya Ramey Gardnerella vaginalis Positive Abnormal Negative [facility] Comment on above: Performed By: #### H H #### [facility] [address] [place], [place] [address] Dr. Ramya Ramey Trichomonas vaginalis Negative Normal Negative [facility] Comment on above: Performed By: #### H H #### [facility] [address] [place], [place] [address] Dr. Ramya Ramey AFP, Maternalon 06-03-2021 Determined by Other Normal [facility] Comment on above: Performed By: #### C MIS #### [address] [address] Physician Assistant Psychiatry: Antoine Wilson MD #### AAFPM #### [address] [address] Physician Assistant Psychiatry: Antoine Wilson MD [facility] [employer] [address] [place] [address] [id number] Physician Assistant Psychiatry: Nick Mills MD Due Date SEE NOTE Normal [facility] Comment on above: Result Comment: Resu lts for Estimated Due Date: 10 21 21 Performed By: #### C MIS #### [address] [address] Physician Assistant Psychiatry: Antoine Wilson MD #### AAFPM #### [address] [address] Physician Assistant Psychiatry: Antoine Wilson MD [facility] [address] [place] [address] Physician Assistant Psychiatry: Nick Mills MD Family History No Normal [facility] Comment on above: Performed By: #### C MIS #### [address] [address] Physician Assistant Psychiatry: Antoine Wilson MD #### AAFPM #### [address] [address] Physician Assistant Psychiatry: Antoine Wilson MD [facility] [address] [place] [address] Physician Assistant Psychiatry: Nick Mills MD Gestat Age (exact) 19 wks, 4 days Normal [facility] Comment on above: Performed By: #### C MIS #### [address] [address] Physician Assistant Psychiatry: Antoine Wilson MD #### AAFPM #### [address] [address] Physician Assistant Psychiatry: Antoine Wilson MD [address] [address] Physician Assistant Psychiatry: Nick Mills MD Ins Req Matern Diab Unknown Normal [facility] Comment on above: Performed By: #### C MIS #### [address] [address] Physician Assistant Psychiatry: Antoine Wilson MD #### AAFPM #### [address] [address] Physician Assistant Psychiatry: Antoine Wilson MD [address] [id number] Physician Assistant Psychiatry: Nick Mills MD Interpretation Screen Neg Normal [facility] Comment on above: Result Comment: (NOT E) INTERPRETATION: SCREEN NEGATIVE for open spina bifida Neural Tube Defects (NTD) Negative Pre-Test Post-Test Cutoff Neural Tube Defects Risks 1:1030 1:7440 1:250 Comments: The risk of an open neural tube defect is less than the screening cut-off. This test was developed and its performance characteristics determined by [employer]. It has not been cleared or approved by the US Food and Drug Administration. This test was performed in a CLIA certified laboratory and is intended for clinical purposes. Performed By: #### C MIS #### [address] [address] Physician Assistant Psychiatry: Antoine Wilson MD #### AAFPM #### [address] [address] Physician Assistant Psychiatry: Antoine Wilson MD [facility] [address] [place], [place] [id number] Physician Assistant Psychiatry: Nick Mills MD [age] [facility] Comment on above: Performed By: #### C MIS #### [address] [address] Physician Assistant Psychiatry: Antoine Wilson MD #### AAFPM #### [address] [address] Physician Assistant Psychiatry: Antoine Wilson MD [address] [id number] Physician Assistant Psychiatry: Nick Mills MD Maternal Race Nonblack [facility] Comment on above: Performed By: #### C MIS #### [address] [address] Physician Assistant Psychiatry: Antoine Wilson MD #### AAFPM #### [address] [address] Physician Assistant Psychiatry: Antoine Wilson MD [address] [phone] Physician Assistant Psychiatry: Nick Mills MD Maternal Weight 204.0 lbs. [facility] Comment on above: Performed By: #### C MIS #### [address] [address] Physician Assistant Psychiatry: Antoine Wilson MD #### AAFPM #### [address] [address] Physician Assistant Psychiatry: Antoine Wilson MD [facility] [address] [place] [address] Physician Assistant Psychiatry: Nick Mills MD MoM for AFP 1.18 [facility] Comment on above: Performed By: #### C MIS #### [address] [address] Physician Assistant Psychiatry: Antoine Wilson MD #### AAFPM #### [address] [address] Physician Assistant Psychiatry: Antoine Wilson MD [address] [address] Physician Assistant Psychiatry: Nick Mills MD Number of Fetuses Tate Normal [facility] Comment on above: Performed By: #### C MIS #### [address] [address] Physician Assistant Psychiatry: Antoine Wilson MD #### AAFPM #### [address] [address] Physician Assistant Psychiatry: Antoine Wilson MD [address] [address] Physician Assistant Psychiatry: Nick Mills MD Patient's AFP 55 ng/mL Normal [facility] Comment on above: Performed By: #### C MIS #### [address] [address] Physician Assistant Psychiatry: Antoine Wilson MD #### AAFPM #### [address] [address] Physician Assistant Psychiatry: Antoine Wilson MD [address] [address] Physician Assistant Psychiatry: Nick Mills MD Smoking Yes Normal [facility] Comment on above: Performed By: #### C MIS #### [address] [address] Physician Assistant Psychiatry: Antoine Wilson MD #### AAFPM #### [address] [address] Physician Assistant Psychiatry: Antoine Wilson MD [facility] [address] [place] [address] Physician Assistant Psychiatry: Nick Mills MD Specimen See Note [facility] Comment on above: Result Comment: (NOT E) Initial sample Performed by [email or web address], [address] [facility], [place] [address] [email or web address], Noreen Zafar MD, Lab. Director Performed By: #### C MIS #### [facility] [address] [place] [address] Physician Assistant Psychiatry: Antoine Wilson MD #### AAFPM #### [address] [address] Physician Assistant Psychiatry: Antoine Wilson MD [address] [address] Physician Assistant Psychiatry: Nick Mills MD AFP, Maternalon 06-01-2021 Current Smoking YES Normal [facility] Comment on above: Performed By: #### C MIS #### [facility] [address] [address] Physician Assistant Psychiatry: Antoine Wilson MD #### AAFPM #### [facility] [address] [address] Physician Assistant Psychiatry: Antoine Wilson MD [address] [phone] Physician Assistant Psychiatry: Nick Mills MD Dating LMP Normal [facility] Comment on above: Performed By: #### C MIS #### [facility] [address] [address] Physician Assistant Psychiatry: Antoine Wilson MD #### AAFPM #### [facility] [address] [address] Physician Assistant Psychiatry: Antoine Wilson MD [address] [address] Physician Assistant Psychiatry: Nick Mills MD Diabetic INFORMATION NOT PROVIDED [facility] Comment on above: Performed By: #### C MIS #### [facility] [address] [place] [address] Physician Assistant Psychiatry: Antoine Wilson MD #### AAFPM #### [address] [address] Physician Assistant Psychiatry: Antoine Wilson MD [facility] [address] [place] [address] Physician Assistant Psychiatry: Nick Mills MD Donor Egg NO [facility] Comment on above: Performed By: #### C MIS #### [address] [address] Physician Assistant Psychiatry: Antoine Wilson MD #### AAFPM #### [address] [address] Physician Assistant Psychiatry: Antoine Wilson MD [facility] [address] [place] [address] Physician Assistant Psychiatry: Nick Mills MD Estimated Due Date 10 21 2021 [facility] Comment on above: Performed By: #### C MIS #### [address] [address] Physician Assistant Psychiatry: Antoine Wilson MD #### AAFPM #### [address] [address] Physician Assistant Psychiatry: Antoine Wilson MD [facility] [address] [place] [address] Physician Assistant Psychiatry: Nick Mills MD Family History NO [facility] Comment on above: Performed By: #### C MIS #### [address] [address] Physician Assistant Psychiatry: Antoine Wilson MD #### AAFPM #### [address] [place] [address] Physician Assistant Psychiatry: Antoine Wilson MD [facility] [address] [place], [place] [id number] Physician Assistant Psychiatry: Nick Mills MD [facility] Comment on above: Performed By: #### C MIS #### [address] [address] Physician Assistant Psychiatry: Antoine Wilson MD #### AAFPM #### [facility] [address] [place] [address] Physician Assistant Psychiatry: Antoine Wilson MD [facility] [address] [place], [place] [id number] Physician Assistant Psychiatry: Nick Mills MD LMP date 01 14 2021 [facility] Comment on above: Performed By: #### C MIS #### [address] [address] Physician Assistant Psychiatry: Antoine Wilson MD #### AAFPM #### [address] [address] Physician Assistant Psychiatry: Antoine Wilson MD [address] [phone] Physician Assistant Psychiatry: Nick Mills MD Maternal date 08 14 1997 [facility] Comment on above: Performed By: #### C MIS #### [facility] [address] [place] [address] Physician Assistant Psychiatry: Antoine Wilson MD #### AAFPM #### [facility] [address] [place] [address] Physician Assistant Psychiatry: Antoine Wilson MD [facility] [address] [place], [place] [phone] Physician Assistant Psychiatry: Nick Mills MD Maternal Weight 204 [facility] Comment on above: Performed By: #### C MIS #### [facility] [address] [place] [address] Physician Assistant Psychiatry: Antoine Wilson MD #### AAFPM #### [address] [address] Physician Assistant Psychiatry: Antoine Wilson MD [facility] [address] [place] [address] Physician Assistant Psychiatry: Nick Mills MD Monochorionic Twins TATE Normal [facility] Comment on above: Performed By: #### C MIS #### [address] [address] Physician Assistant Psychiatry: Antoine Wilson MD #### AAFPM #### [address] [address] Physician Assistant Psychiatry: Antoine Wilson MD [address] [address] Physician Assistant Psychiatry: Nick Mills MD Patient Weight Units LBS Normal [facility] Comment on above: Performed By: #### C MIS #### [address] [address] Physician Assistant Psychiatry: Antoine Wilson MD #### AAFPM #### [address] [address] Physician Assistant Psychiatry: Antoine Wilson MD [address] [address] Physician Assistant Psychiatry: Nick Mills MD Race (Maternal) WHITE Normal [facility] Comment on above: Performed By: #### C MIS #### [address] [address] Physician Assistant Psychiatry: Antoine Wilson MD #### AAFPM #### [address] [address] Physician Assistant Psychiatry: Antoine Wilson MD [facility] [address] [place] [address] Physician Assistant Psychiatry: Nick Mills MD Repeat Specimen INFORMATION NOT PROVIDED [facility] Comment on above: Performed By: #### C MIS #### [facility] [address] [place] [address] Physician Assistant Psychiatry: Antoine Wilson MD #### AAFPM #### [address] [address] Physician Assistant Psychiatry: Antoine Wilson MD [facility] [address] [place] [address] Physician Assistant Psychiatry: Nick Mills MD Valproic/Carbamazep INFORMATION NOT PROVIDED [facility] Comment on above: Performed By: #### C MIS #### [address] [address] Physician Assistant Psychiatry: Antoine Wilson MD #### AAFPM #### [address] [address] Physician Assistant Psychiatry: Antoine Wilson MD [address] [address] Physician Assistant Psychiatry: MD [facility]-2021 Send Out Report [facility] [phone] [facility] Comment on above: Performed By: #### C MIS #### [address] [address] Physician Assistant Psychiatry: Antoine Wilson MD #### AAFPM #### [address] [address] Physician Assistant Psychiatry: Antoine Wilson MD [facility] [address] [place] [address] Physician Assistant Psychiatry: MD Miguel De Los Santos 05-31-2021 Test Name [facility] Comment on above: Performed By: #### C MIS #### [address] [address] [place] [address] Physician Assistant Psychiatry: Antoine Wilson MD #### AAFPM #### [facility] [address] [place] [address] Physician Assistant Psychiatry: Antoine Wilson MD [address] [address] Physician Assistant Psychiatry: Nick Mills MD COVID-19, Rapidon 05-22-2021 Interpretation [...] this assay. Fact sheet for Healthcare Providers: https://www.fda.gov/media/784760/download Fact sheet for Patients: https://www.fda.gov/media/342013/download Methodology: Isothermal Nucleic Acid Amplification Results reported to the appropriate Health Department Specimen Description .NASOPHARYNGEAL SWAB [facility] Basic Metabolic Panelon 12-0 Anion gap [Moles/Vol] 14 mmol/L 9 - 17 mmol/L [facility] Calcium [Mass/Vol] 9.3 mg/dL 8.6 - 10. 4 mg/dL [facility] Chloride [Moles/Vol] 100 mmol/L 98 - 10 7 mmol/L [facility] CO2 [Moles/Vol] 19 mmol/L Low 20 - 31 mmol/L [facility] Creatinine [Mass/Vol] 0.48 mg/dL Low 0.50 - 0.90 mg/dL [facility] GFR >60 >60 mL/min [facility] GFR Non- >60 >60 mL/min [facility] GFR/1.73 sq M.predicted MDRD (S/P/Bld) [Vol rate/Area] [facility] Comment on above: Average GFR for 20-2 9 years old: 116 mL/min/1.73sq m Chronic Kidney Disease: <60 mL/min/1.73sq m Kidney failure: <15 mL/min/1.73sq m eGFR calculated using average adult body mass. Additional eGFR calculator available at: http://www.ChoiceMap/multiple_crcl_2012.htm GFR/1.73 sq M.predicted MDRD (S/P/Bld) [Vol rate/Area] NOT REPORTED [facility] Glucose [Mass/Vol] 209 mg/dL High 70 - 99 mg/dL [facility] Interpretation and review of laboratory results Abnormal [facility] Potassium [Moles/Vol] 3.9 mmol/L 3.7 - 5.3 mmol/L [facility] Sodium [Moles/Vol] 133 mmol/L Low 135 - 144 mmol/L [facility] Urea nitrogen (BldV) [Mass/Vol] 7 mg/dL 6 - 20 mg/dL [facility] Urea nitrogen/Creatinine (Bld) [Mass ratio] 15 [facility] US OB 1ST TRIMESTER TRANSBDO BECKY [...] Doppler analysis. Somatic motion also noted by torpedoman's mate. Uterus measures 13.4 x 7.8 x 8.7 [...] ID: [id number] Dictated by: BLAINE CHIU on [place] Apr 01, 2021 8:19:34 PM EST Transcribed by: BLAINE CHIU on [place] Apr 01, 2021 8:19:34 PM EST Finalized by: BLAINE CHIU on [place] Apr 01, 2021 8:19:34 PM EST Normal [facility] Comment on above: Order Comment: Injur y/Trauma or Illness?:Illness/Other How long have you had these symptoms (acute/chronic)?:Acute Reason for exam?:vaginal bleeding, rt pelvic pain History of cancer?:na Surgeries, chemotherapy, or radiation?:na Type of Exam?:Initial Additional signs and symptoms?:n Microscopic UrinalysisOrdere d By: Braydon May on 02-10-2021 - [employer] Phone: Amorphous, UA NOT REPORTED None [employer] [facility] Work Phone: Bacteria, UA 1+ Abnormal None [facility] Work Phone: Casts UA NOT REPORTED /LPF [facility] Work Phone: Crystals, UA NOT REPORTED None /HPF [employer] [facility] Work Phone: Epithelial Cells UA 5 TO 10 /HPF [facility] Work Phone: Interpretation and review of laboratory results Abnormal [facility] Work Phone: Mucus, UA NOT REPORTED None [employer] Phone: Other Observations UA NOT REPORTED NOT REQ. [facility] Work Phone: RBC, UA 0 TO 2 [facility] Work Phone: Renal Epithelial, UA NOT REPORTED 0 /HPF [facility] Work Phone: Trichomonas, UA NOT REPORTED None [facility] Work Phone: WBC, UA 2 TO 5 0 /HPF [facility] Work Phone: Yeast, UA NOT REPORTED None [facility] Work Phone: [facility] Work Phone: UrinalysisOrdered By: Braydon May on 02-10-2021 Bilirubin Urine Negative NEGATIVE [facility] Work Phone: Color, UA Yellow Yellow [facility] Work Phone: Glucose, Ur Negative NEGATIVE [facility] Work Phone: Interpretation and review of laboratory results Abnormal [facility] Work Phone: Ketones Ql (U) Negative NEGATIVE [facility] Work Phone: Leukocyte esterase Test strip Ql (U) 2+ Abnormal NEGATIVE [facility] Work Phone: Nitrite, Urine Negative NEGATIVE [facility] Work Phone: pH, UA 6.0 [facility] Work Phone: Protein, UA Negative NEGATIVE [facility] Work Phone: Specific [place], UA 1.020 [facility] Work Phone: Turbidity UA Clear Clear [facility] Work Phone: Urinalysis Comments [facility] Work Phone: Urine Hgb 1+ Abnormal NEGATIVE [facility] Work Phone: Urobilinogen, Urine Normal Normal [facility] Work Phone: [facility] Work Phone: hCG, quantitative, Ordered By: Braydon Yadira on 02-10-2021 hCG Quant 160 High <5 IU/L [employer] Phone: Comment on above: Non-preg premeno <=5 Postmeno <=8 Male <=3 If HCG results do not concur with clinical observations, additional testing to confirm results is recommended. Elevated results not associated with may be found in patients with other diseases such as tumors of the germ cells (testis, ovaries, etc.), bladder, pancreas, stomach, lungs, and liver. Interpretation and review of laboratory results Abnormal [employer] Phone: [employer] Phone: CBC Auto DifferentialOrdered By: Bea Jacobs on 12-10-2020 Absolute Eos # 0.[address] [employer] [facility] Work Phone: Absolute Immature Granulocyte NOT REPORTED [employer] Phone: Absolute Lymph # 1.80 [employer] [facility] Work Phone: Absolute Runnels # 0.70 [employer] Work Phone: Basophils (Bld) [#/Vol] 0.10 10*3/uL [facility] Work Phone: Basophils/100 WBC (Bld) 1 % 0 - 2 % M [employer] Phone: Differential Type YES [employer] [facility] Work Phone: Eosinophils/100 WBC (Bld) 1 % 0 - 5 % [employer] Phone: Hematocrit (Bld) [Volume fraction] 42.8 % 36 - 46 % [employer] Phone: Hemoglobin.gastrointest inal spec 1 Ql (Stl) 14.6 g/dL 12.0 - 16.0 g/dL [employer] Phone: Immature Granulocytes NOT REPORTED 0 % M [employer] Phone: Interpretation and review of laboratory results Abnormal [employer] Phone: Lymphocytes/100 WBC (Bld) 16 % 15 - 40 % [facility] Work Phone: MCH (RBC) [Entitic mass] 30.0 pg 26 - 34 pg [employer] Phone: MCHC (RBC) [Mass/Vol] 34.2 g/dL 31 - 3 7 g/dL [employer] Phone: MCV (RBC) [Entitic vol] 87.8 fL 80 - 100 fL [employer] Phone: Monocytes/100 WBC (Bld) 6 % 4 - 8 % [facility] Work Phone: NRBC Automated NOT REPORTED per 100 WBC [employer] [facility] Work Phone: Platelet distribution width (Bld) [Ratio] 13.1 % 12.1 - 15.2 % [employer] Phone: Platelet Estimate NOT REPORTED [employer] Phone: Platelet mean volume (Bld) [Entitic vol] NOT REPORTED 6.0 - 12.0 fL [employer] Phone: Platelets (Bld) [#/Vol] 230 10*3/uL [employer] Phone: RBC (Bld) [#/Vol] 4.87 10*6/uL 4.0 - 5.2 m/uL [facility] Work Phone: RBC (Bld) [#/Vol] NOT REPORTED [facility] Phone: Segmented neutrophils/100 WBC (Bld) 76 % High 47 - 75 % [facility] Work Phone: Segs Absolute 8.80 High [facility] Work Phone: WBC (Bld) [#/Vol] 11.5 10*3/uL High [facility] Work Phone: WBC (Bld) [#/Vol] NOT REPORTED [employer] Phone: [employer] Phone: Comprehensive Metabolic Pane l w/ Reflex to MGOrdered By: Bea Jacobs on 12-10-2020 Albumin [Mass/Vol] 4.3 g/dL 3.5 - 5.2 g/dL [employer] Phone: Albumin/Globulin Ratio NOT REPORTED [employer] Phone: ALP (Bld) [Catalytic activity/Vol] 105 U/L High 35 - 104 U/L [employer] Phone: ALT [Catalytic activity/Vol] 17 U/L 5 - 33 U/L [employer] Phone: Anion gap [Moles/Vol] 12 mmol/L 9 - 17 mmol/L [employer] Phone: AST [Catalytic activity/Vol] 17 U/L <32 [employer] Phone: Bilirubin [Mass/Vol] 0.50 mg/dL 0.30 - 1.20 mg/dL [employer] Phone: Calcium [Mass/Vol] 9.3 mg/dL 8.6 - 10. 4 mg/dL [employer] Phone: Chloride [Moles/Vol] 105 mmol/L 98 - 10 7 mmol/L [employer] Phone: CO2 [Moles/Vol] 22 mmol/L 20 - 31 mmol/L [employer] Phone: Creatinine [Mass/Vol] 0.6 mg/dL 0.50 - 0.90 mg/dL [employer] Phone: Free PSA/Total PSA [Mass fraction] 7.3 g/dL 6.4 - 8.3 g/dL [employer] Phone: GFR >60 >60 mL/min [employer] Phone: GFR Non- >60 >60 mL/min [employer] Phone: GFR/1.73 sq M.predicted MDRD (S/P/Bld) [Vol rate/Area] [employer] Phone: Comment on above: Average GFR for 20-2 9 years old: 116 mL/min/1.73sq m Chronic Kidney Disease: <60 mL/min/1.73sq m Kidney failure: <15 mL/min/1.73sq m eGFR calculated using average adult body mass. Additional eGFR calculator available at: http://www.ChoiceMap/Medical Envelope_crcl_2012.htm GFR/1.73 sq M.predicted MDRD (S/P/Bld) [Vol rate/Area] NOT REPORTED [employer] Phone: Glucose [Mass/Vol] 102 mg/dL High 70 - 99 mg/dL [employer] Phone: Interpretation and review of laboratory results Abnormal [employer] Phone: Potassium [Moles/Vol] 3.9 mmol/L 3.7 - 5.3 mmol/L [employer] Phone: Sodium [Moles/Vol] 139 mmol/L 135 - 144 mmol/L [employer] Phone: Urea nitrogen (BldV) [Mass/Vol] 15 mg/dL 6 - 20 mg/dL [employer] Phone: Urea nitrogen/Creatinine (Bld) [Mass ratio] 25 High [employer] Phone: [employer] Phone: HCG Qualitative, SerumOrdere d By: Bea Jacobs on 12-10-2020 hCG Qual Negative NEGATIVE [employer] Phone: Comment on above: Specimens with hCG l evels near the threshold of the test (25 mIU/mL) may give a negative or indeterminate result. In such cases, another test should be performed with a new specimen in 48-72 hours. If early is suspected clinically in this setting, correlation with quantitative serum b-hCG level is suggested. [employer] has confirmed the use of plasma for this test. This has not been cleared or approved by the U.S. Food and Drug Administration. The FDA has determined that such clearance is not necessary. [employer] Phone: Acetaminophen Levelon 2020 Acetaminophen [Mass/Vol] <5 Low 10 - 30 ug/mL [employer] Phone: Interpretation and review of laboratory results Abnormal [employer] Phone: Basic Metabolic Panelon 07-05 Anion gap [Moles/Vol] 11 mmol/L 9 - 17 mmol/L [employer] Phone: Bun/Cre Ratio 27 High [employer] Work Phone: Calcium [Mass/Vol] 9.4 mg/dL 8.6 - 10. 4 mg/dL [employer] Phone: Chloride [Moles/Vol] 104 mmol/L 98 - 10 7 mmol/L [employer] Phone: CO2 [Moles/Vol] 26 mmol/L 20 - 31 mmol/L [employer] Phone: Creatinine [Mass/Vol] 0.71 mg/dL 0.50 - 0.90 mg/dL [employer] Phone: GFR >60 >60 mL/min [employer] Phone: GFR Non- >60 >60 mL/min [employer] Phone: GFR/1.73 sq M predicted among non-blacks MDRD (S/P/Bld) [Vol rate/Area] NOT REPORTED [employer] Phone: GFR/1.73 sq M predicted among non-blacks MDRD (S/P/Bld) [Vol rate/Area] [employer] Phone: Comment on above: Average GFR for 20-2 9 years old: 116 mL/min/1.73sq m Chronic Kidney Disease: <60 mL/min/1.73sq m Kidney failure: <15 mL/min/1.73sq m eGFR calculated using average adult body mass. Additional eGFR calculator available at: http://www.ChoiceMap/Medical Envelope_crcl_2012.htm Glucose [Mass/Vol] 113 mg/dL High 70 - 99 mg/dL [employer] Phone: Potassium [Moles/Vol] 4.0 mmol/L 3.7 - 5.3 mmol/L [employer] Phone: Sodium [Moles/Vol] 141 mmol/L 135 - 144 mmol/L [employer] Phone: Urea nitrogen [Mass/Vol] 19 mg/dL 6 - 20 mg/dL [employer] Phone: CBC Auto Differentialon 03-3 0-2020 Basophils (Bld) [#/Vol] 0.10 10*3/uL [employer] Phone: Basophils/100 WBC (Bld) 1 % 0 - 2 % [facility] Phone: Differential Type YES [employer] [facility] Work Phone: Eosinophils (Bld) [#/Vol] 0.10 10*3/uL [employer] Phone: Eosinophils/100 WBC (Bld) 1 % 0 - 5 % [facility] Phone: Erythrocyte distribution width (RBC) [Ratio] 13.3 % 12.1 - 15.2 % [employer] Phone: Hematocrit (Bld) [Volume fraction] 40.7 % 36 - 46 % [employer] Phone: Hemoglobin (Bld) [Mass/Vol] 13.8 g/dL 12.0 - 16.0 g/dL [employer] Phone: Interpretation and review of laboratory results Abnormal [employer] Phone: Lymphocytes (Bld) [#/Vol] 3.10 10*3/uL [employer] Phone: Lymphocytes/100 WBC (Bld) 28 % 15 - 40 % [employer] Phone: MCH (RBC) [Entitic mass] 30.1 pg 26 - 34 pg [employer] Phone: MCHC (RBC) [Mass/Vol] 33.8 g/dL 31 - 3 7 g/dL [employer] Phone: MCV (RBC) [Entitic vol] 88.8 fL 80 - 100 fL [employer] Phone: Monocytes (Bld) [#/Vol] 0.50 10*3/uL [employer] Phone: Monocytes/100 WBC (Bld) 5 % 4 - 8 % M [employer] Work Phone: Platelet mean volume (Bld) [Entitic vol] NOT REPORTED 6.0 - 12.0 fL [employer] Phone: Platelets (Bld) [#/Vol] 203 10*3/uL [employer] Phone: Platelets (Bld) [#/Vol] NOT REPORTED [employer] Phone: RBC (Bld) [#/Vol] 4.59 10*6/uL 4.0 - 5.2 m/uL [employer] Phone: RBC morphology finding Nom (Bld) NOT REPORTED [employer] Phone: Segmented neutrophils/100 WBC (Bld) 65 % 47 - 75 % [employer] Work Phone: Segs Absolute 7.30 High [employer] Work Phone: WBC (Bld) [#/Vol] 11.0 10*3/uL [employer] Phone: WBC (Bld) [#/Vol] NOT REPORTED per 100 WBC [employer] Phone: WBC Morphology NOT REPORTED [facility] Work Phone: COVID-19, Rapidon 08-01-2020 SARS-CoV-2, Rapid Not Detected Not Detected [employer] Phone: Comment on above: Rapid NAAT: The [...] management decisions. Fact sheet for Healthcare Providers: https://www.fda.gov/media/332198/download Fact sheet for Patients: https://www.fda.gov/media/757719/download Methodology: Isothermal Nucleic Acid Amplification Specimen Description .NASOPHARYNGEAL SWAB [facility] Phone: Ethanolon 6 Ethanol [Mass/Vol] mg/dL <10 mg/dL [facility]: Ethanol percent <0.010 % [facility] Work Phone: HCG Qualitative, Serumon hCG Qual Negative NEGATIVE [facility]: Comment on above: Specimens with hCG l evels near the threshold of the test (25 mIU/mL) may give a negative or indeterminate result. In such cases, another test should be performed with a new specimen in 48-72 hours. If early is suspected clinically in this setting, correlation with quantitative serum b-hCG level is suggested. [employer] has confirmed the use of plasma for this test. This has not been cleared or approved by the U.S. Food and Drug Administration. The FDA has determined that such clearance is not necessary. Otheron 08-01-2020 Interpretation and review of laboratory results Abnormal [facility]: Immature granulocytes (Bld) [#/Vol] NOT REPORTED [facility] Work Phone: Salicylateon 08-01-2020 Salicylate Lvl <1 Low 3 - 10 mg/dL [facility]: TSH with Reflexon 08-01-2020 TSH Qn 3.16 m[IU]/L [facility]: Urine Drug Screenon 08-02-19 Amphetamine Screen, Ur Negative NEGATIVE [facility] Work Phone: Comment on above: (Positive cutoff 500 ng/mL) Barbiturate Screen, Ur Negative NEGATIVE [facility] Work Phone: Comment on above: (Positive cutoff 200 ng/mL) Benzodiazepine Screen, Urine Negative NEGATIVE [facility] [employer] Phone: Comment on above: (Positive cutoff 150 ng/mL) Buprenorphine Urine NOT REPORTED NEGATIVE [facility] Work Phone: Cannabinoid Scrn, Ur Negative NEGATIVE [facility] Work Phone: Comment on above: (Positive cutoff 50 ng/mL) Cocaine Metabolite, Urine Negative NEGATIVE [facility] Work Phone: Comment on above: (Positive cutoff 150 ng/mL) MDMA, Urine NOT REPORTED NEGATIVE [facility] [employer] Work Phone: Methadone Screen, Urine Negative NEGATIVE [facility] Work Phone: Comment on above: (Positive cutoff 200 ng/mL) Methamphetamine, Urine Negative NEGATIVE [facility] Work Phone: Comment on above: (Positive cutoff 500 ng/mL) Opiates, Urine Negative NEGATIVE [facility] Work Phone: Comment on above: (Positive cutoff 100 ng/mL) Oxycodone Screen, Ur Negative NEGATIVE [facility] Work Phone: Comment on above: (Positive cutoff 100 ng/mL) Phencyclidine, Urine Negative NEGATIVE [facility] Work Phone: Comment on above: (Positive cutoff 25 ng/mL) Propoxyphene, Urine Negative NEGATIVE [facility] Work Phone: Comment on above: (Positive cutoff 300 ng/mL) Test Information NOT REPORTED [facility] Work Phone: Tricyclic Antidepressants, Urine Negative NEGATIVE [facility] Work Phone: Comment on above: (Positive cutoff 300 ng/mL) Drug screen results are to be used for medical purposes only. All positive results are unconfirmed. Testing for employment or legal uses should be sent to a reference laboratory for confirmation. CBC Auto Differentialon 01-03 Basophils (Bld) [#/Vol] 0.00 10*3/uL [place] Basophils/100 WBC (Bld) 1 % 0 - 2 % [place] Differential Type YES [place] Eosinophils (Bld) [#/Vol] 0.10 10*3/uL [place] Eosinophils/100 WBC (Bld) 2 % 0 - 5 % [place] Erythrocyte distribution width (RBC) [Ratio] 13.4 % 12.1 - 15.2 % [place] Hematocrit (Bld) [Volume fraction] 44.9 % 36 - 46 % [place] Hemoglobin (Bld) [Mass/Vol] 15.0 g/dL 12 - 16 g/dL [place] Lymphocytes (Bld) [#/Vol] 1.30 10*3/uL [place] Lymphocytes/100 WBC (Bld) 17 % 15 - 40 % [place] MCH (RBC) [Entitic mass] 29.7 pg 26 - 34 pg [place] MCHC (RBC) [Mass/Vol] 33.4 g/dL 31 - 3 7 g/dL [place] MCV (RBC) [Entitic vol] 88.9 fL 80 - 100 fL [place] Monocytes (Bld) [#/Vol] 0.40 10*3/uL [place] Monocytes/100 WBC (Bld) 5 % 4 - 8 % [place] Platelet mean volume (Bld) [Entitic vol] NOT REPORTED 6 - 12 fL [place] Platelets (Bld) [#/Vol] NOT REPORTED [place] Platelets (Bld) [#/Vol] 231 10*3/uL [place] RBC (Bld) [#/Vol] 5.05 10*6/uL 4 - 5.2 m/uL [place] RBC morphology finding Nom (Bld) NOT REPORTED [place] Segmented neutrophils/100 WBC (Bld) 75 % 47 - 75 % [place] Segs Absolute 5.80 [place] WBC (Bld) [#/Vol] 7.7 10*3/uL [place] WBC (Bld) [#/Vol] NOT REPORTED per 100 WBC [place] WBC Morphology NOT REPORTED [place] Comprehensive Metabolic Pane nick 01-18-2020 Albumin [Mass/Vol] 4.6 g/dL 3.5 - 5.2 g/dL [place] Albumin/Globulin [Mass ratio] NOT REPORTED [place] ALP [Catalytic activity/Vol] 101 U/L 35 - 104 U/L [place] ALT [Catalytic activity/Vol] 21 U/L 5 - 33 U/L [place] Anion gap [Moles/Vol] 10 mmol/L 9 - 17 mmol/L [place] AST [Catalytic activity/Vol] 20 U/L <32 [place] Bilirubin Ql (U) 0.55 mg/dL 0.3 - 1.2 mg/dL [place] Bun/Cre Ratio 18 [place] Calcium [Mass/Vol] 9.2 mg/dL 8.6 - 10. 4 mg/dL [place] Chloride [Moles/Vol] 106 mmol/L 98 - 10 7 mmol/L [place] CO2 [Moles/Vol] 24 mmol/L 20 - 31 mmol/L [place] Creatinine [Mass/Vol] 0.74 mg/dL 0.5 - 0.9 mg/dL [place] GFR >60 >60 mL/min [place] GFR Non- >60 >60 mL/min [place] GFR/1.73 sq M predicted among non-blacks MDRD (S/P/Bld) [Vol rate/Area] [place] Comment on above: Average GFR for 20-2 9 years old: 116 mL/min/1.73sq m Chronic Kidney Disease: <60 mL/min/1.73sq m Kidney failure: <15 mL/min/1.73sq m eGFR calculated using average adult body mass. Additional eGFR calculator available at: http://www.ChoiceMap/multiple_crcl_2012.htm GFR/1.73 sq M predicted among non-blacks MDRD (S/P/Bld) [Vol rate/Area] NOT REPORTED [place] Glucose [Mass/Vol] 124 mg/dL High 70 - 99 mg/dL [place] Interpretation and review of laboratory results Abnormal [place] Potassium [Moles/Vol] 4.1 mmol/L 3.7 - 5.3 mmol/L [place] Protein [Mass/Vol] 8.5 g/dL High 6.4 - 8.3 g/dL [place] Sodium [Moles/Vol] 140 mmol/L 135 - 144 mmol/L [place] Urea nitrogen [Mass/Vol] 13 mg/dL 6 - 20 mg/dL [place] Otheron 01-18-2020 Immature granulocytes (Bld) [#/Vol] NOT REPORTED 0 % [place] TSH with Reflexon 01-18-2020 TSH Qn 1.30 m[IU]/L [place] Basic Metabolic Panel w/ Ref stephy to MGon 04-06-2019 Anion gap [Moles/Vol] 13 mmol/L 9 - 17 mmol/L [place] Bun/Cre Ratio 19 [place] Calcium [Mass/Vol] 9.7 mg/dL 8.6 - 10. 4 mg/dL [place] Chloride [Moles/Vol] 102 mmol/L 98 - 10 7 mmol/L [place] CO2 [Moles/Vol] 23 mmol/L 20 - 31 mmol/L [place] Creatinine [Mass/Vol] 0.58 mg/dL 0.5 - 0.9 mg/dL [place] GFR >60 >60 mL/min [place] GFR Non- >60 >60 mL/min [place] GFR/1.73 sq M predicted among non-blacks MDRD (S/P/Bld) [Vol rate/Area] NOT REPORTED [place] GFR/1.73 sq M predicted among non-blacks MDRD (S/P/Bld) [Vol rate/Area] [place] Comment on above: Average GFR for 20-2 9 years old: 116 mL/min/1.73sq m Chronic Kidney Disease: <60 mL/min/1.73sq m Kidney failure: <15 mL/min/1.73sq m eGFR calculated using average adult body mass. Additional eGFR calculator available at: http://www.Zhaogang.Alorum/multiple_crcl_2012.htm Glucose [Mass/Vol] 115 mg/dL High 70 - 99 mg/dL [place] Interpretation and review of laboratory results Abnormal [place] Potassium [Moles/Vol] 3.9 mmol/L 3.7 - 5.3 mmol/L [place] Sodium [Moles/Vol] 138 mmol/L 135 - 144 mmol/L [place] Urea nitrogen [Mass/Vol] 11 mg/dL 6 - 20 mg/dL [place] CBC Auto Differentialon 12-0 Basophils (Bld) [#/Vol] 0.00 10*3/uL [place] Basophils/100 WBC (Bld) 0 % 0 - 2 % [place] Differential Type YES [place] Eosinophils (Bld) [#/Vol] 0.10 10*3/uL [place] Eosinophils/100 WBC (Bld) 2 % 0 - 5 % [place] Erythrocyte distribution width (RBC) [Ratio] 12.7 % 12.1 - 15.2 % [place] Hematocrit (Bld) [Volume fraction] 46.4 % High 36 - 46 % [place] Hemoglobin (Bld) [Mass/Vol] 15.5 g/dL 12 - 16 g/dL [place] Interpretation and review of laboratory results Abnormal [place] Lymphocytes (Bld) [#/Vol] 1.30 10*3/uL [place] Lymphocytes/100 WBC (Bld) 20 % 15 - 40 % [place] MCH (RBC) [Entitic mass] 29.7 pg 26 - 34 pg [place] MCHC (RBC) [Mass/Vol] 33.4 g/dL 31 - 3 7 g/dL [place] MCV (RBC) [Entitic vol] 89.0 fL 80 - 100 fL [place] Monocytes (Bld) [#/Vol] 0.50 10*3/uL [place] Monocytes/100 WBC (Bld) 8 % 4 - 8 % [place] Platelet mean volume (Bld) [Entitic vol] NOT REPORTED 6 - 12 fL [place] Platelets (Bld) [#/Vol] NOT REPORTED [place] Platelets (Bld) [#/Vol] 194 10*3/uL [place] RBC (Bld) [#/Vol] 5.22 10*6/uL High 4 - 5.2 m/uL [place] RBC morphology finding Nom (Bld) NOT REPORTED [place] Segmented neutrophils/100 WBC (Bld) 70 % 47 - 75 % [place] Segs Absolute 4.40 [facility] [place] WBC (Bld) [#/Vol] 6.4 10*3/uL [place] WBC (Bld) [#/Vol] NOT REPORTED per 100 WBC [place] WBC Morphology NOT REPORTED [facility] [place] D-Dimer, Quantitativeon 12- D-Dimer, Quant 0.21 [facility] [place] Comment on above: Elevated levels of [...] HCG Qualitative, Serumon hCG Qual Negative NEGATIVE [place] Comment on above: Specimens with hCG l evels near the threshold of the test (25 mIU/mL) may give a negative or indeterminate result. In such cases, another test should be performed with a new specimen in 48-72 hours. If early is suspected clinically in this setting, correlation with quantitative serum b-hCG level is suggested. [employer] has confirmed the use of plasma for this test. This has not been cleared or approved by the U.S. Food and Drug Administration. The FDA has determined that such clearance is not necessary. Otheron 04-06-2019 Immature granulocytes (Bld) [#/Vol] NOT REPORTED [place] XR CHEST STANDARD (2 VW)on 06-07-2018 Negative chest. [place] EXAM: XR CHEST (2 VW ) HISTORY: Reason for exam:->SOB COMPARISON: Chest 12/05/2018. TECHNIQUE: 2 views chest FINDINGS: Heart size normal. Lungs clear. Bony thorax and upper abdomen normal. [place], Mhpn Incoming Radiant Results From [employer] - 04/06/2019 2:50 PM EST EXAM: XR CHEST (2 VW) HISTORY: Reason for exam:->SOB COMPARISON: Chest 12/05/2018. TECHNIQUE: 2 views chest FINDINGS: Heart size normal. Lungs clear. Bony thorax and upper abdomen normal. IMPRESSION: Negative chest. [facility] Metabolic Pane nick 11-12-2017 Alanine aminotransferase (ALT) 22 U/L Normal 14-65 [facility] Comment on above: This test result isela [...] ####Unless otherwise noted, all testing performed by [place] [phone]: [id number] Director: Diego Hamilton M.D. Albumin 3.7 g/dL Normal 3.2-5.2 [facility] Comment on above: Performed By: #### C MET ####Unless otherwise noted, all testing performed by [place] [phone]: [id number] Director: Diego Hamilton M.D. Alkaline phosphatase (ALP) 99 U/L Normal 40-140 [facility] Comment on above: Performed By: #### C MET ####Unless otherwise noted, all testing performed by [address] [phone]: [id number] Director: Diego Hamilton M.D. Aspartate aminotransferase (AST) 11 U/L Normal 0-45 [facility] Comment on above: This test result isela [...] ####Unless otherwise noted, all testing performed by [address]CLIA: [id number] Director: Diego Hamilton M.D. Bilirubin (total) 0.2 mg/dL Low 0.3-1.2 [facility] Comment on above: Performed By: #### C MET ####Unless otherwise noted, all testing performed by [address]8[address]CLIA: [id number] Director: Diego Hamilton M.D. Calcium 9.0 mg/dL Normal 8.4-10.2 [facility] Comment on above: Performed By: #### C MET ####Unless otherwise noted, all testing performed by [address]8[address]CLIA: [id number] Director: Diego Hamilton M.D. Chloride 109 mmol/L High 98-108 [facility] Comment on above: Performed By: #### C MET ####Unless otherwise noted, all testing performed by [address]8[address]CLIA: [id number] Director: Diego Hamilton M.D. CO2 28 mmol/L Normal 21-32 [facility] Comment on above: Performed By: #### C MET ####Unless otherwise noted, all testing performed by [place] [phone]: [id number] Director: Diego Hamilton M.D. Creatinine 0.94 mg/dL Normal 0.40-1.10 [facility] Comment on above: Performed By: #### C MET ####Unless otherwise noted, all testing performed by [address], [place] [phone]: [id number] Director: Diego Hamilton M.D. eGFR (black) mL/min/{1.73_m2} Normal [facility] Comment on above: GFR Calc Result Comment: Afri can Citizen [place] GFR Calc Performed By: #### C MET ####Unless otherwise noted, all testing performed by [address] [phone]: [id number] Director: Diego Hamilton M.D. eGFR (non-black) mL/min/{1.73_m2} Normal [facility] Comment on above: Non- GFR Calc eGFR [...] ####Unless otherwise noted, all testing performed by [address], [place] [phone]: [id number] Director: Diego Hamilton M.D. Glucose mass conc 102 mg/dL High 70-99 [facility] Comment on above: This test result isela [...] otherwise noted, all testing performed by [address] [phone]: [id number] Director: Diego Hamilton M.D. Interpretation and review of laboratory results Abnormal Invalid Interpretation Code [facility] Potassium molar conc 4.0 mmol/L Normal 3.5-5.1 [facility] Comment on above: Performed By: #### C MET ####Unless otherwise noted, all testing performed by [address] [phone]: [id number] Director: Diego Hamilton M.D. Protein 7.0 g/dL Normal 6.0-8.0 [facility] Comment on above: Performed By: #### C MET ####Unless otherwise noted, all testing performed by [address] [phone]: [id number] Director: Diego Hamilton M.D. Sodium 143 mmol/L Normal 135-145 [facility] Comment on above: Performed By: #### C MET ####Unless otherwise noted, all testing performed by [address] [phone]: [id number] Director: Diego Joy, M.D. Urea nitrogen 17 mg/dL Normal 8-25 [facility] Comment on above: Performed By: #### C MET ####Unless otherwise noted, all testing performed by [address] [phone]: [id number] Director: Diego Hamilton M.D. Preg test, Urine Qualon 11-02 Preg Test, Urine Qual Negative Invalid Interpretation Code Negative [facility] Comment on above: Rapid test procedura [...] ( test) Ql (U) Negative Normal Negative [facility] Comment on above: Result Comment: Rapi d [...] ####Unless otherwise noted, all testing performed by [address], [place] [phone]: [id number] Director: Diego Hamilton M.D. Urinalysison 11-12-2017 Bilirubin, Urine Negative Normal NEG;NEGATIV E [facility] Comment on above: Performed By: #### P REGUR, UA ####Unless otherwise noted, all testing performed by [address] [phone]: [id number] Director: Diego Hamilton M.D. Blood, Urine Negative Normal NEG;NEGATIV E [facility] Comment on above: Performed By: #### P REGUR, UA ####Unless otherwise noted, all testing performed by [address] [phone]: [id number] Director: Diego Hamilton M.D. Character Clear Normal [facility] Comment on above: Performed By: #### P REGUR, UA ####Unless otherwise noted, all testing performed by [place] [phone]: [id number] Director: Diego Hamilton M.D. Interpretation and review of laboratory results Abnormal Invalid Interpretation Code [facility] Nitrite, Urine Negative Normal NEG;NEGATIV E [facility] Comment on above: Performed By: #### P REGUR, UA ####Unless otherwise noted, all testing performed by [address] [phone]: [id number] Director: Diego Hamilton M.D. Protein, Urine 30 mg/dL High < 30 [facility] Comment on above: Performed By: #### P REGUR, UA ####Unless otherwise noted, all testing performed by [address] [phone]: [id number] Director: Diego Hamilton M.D. RBCs, Urine < 1 Invalid Interpretation Code 0 - 5 /HPF [facility] Specific [place] 1.024 1 Invalid Interpretation Code 1.003 - 1.029 [facility] Squamous Epithelial 4 /HPF Invalid Interpretation Code 0 - 40 [facility] Urine, color Yellow Normal [facility] Comment on above: Performed By: #### P REGUR, UA ####Unless otherwise noted, all testing performed by [address] [phone]: [id number] Director: Diego Hamilton M.D. Urine, glucose presence Negative Normal NEG; NEGATIV E [facility] Comment on above: Performed By: #### P REGUR, UA ####Unless otherwise noted, all testing performed by [address] [phone]: [id number] Director: Diego Hamilton M.D. Urine, ketones presence Negative Invalid Interpretation Code NEG;NEGATIV E mg/dL [facility] Urine, leukocyte esterase presence Negative Invalid Interpretation Code Negative [facility] Urine, pH 5.0 [pH] Normal 4.5-8.0 [facility] Comment on above: Performed By: #### P REGUR, UA ####Unless otherwise noted, all testing performed by [address] [phone]: [id number] Director: Diego Hamilton M.D. Urobilinogen, Urine < 2.0 Normal <2 [facility] Comment on above: Performed By: #### P REGUR, UA ####Unless otherwise noted, all testing performed by [address] [phone]: [id number] Director: Diego Hamilton M.D. WBCs, Urine 1 /HPF Invalid Interpretation Code 0 - 5 [facility] Urinalysis, Routineon 2017 Ketone,Urine Negative Normal NEG;NEGATIV E [facility] Comment on above: Performed By: #### P REGUR, UA ####Unless otherwise noted, all testing performed by [place] [phone]: [id number] Director: Diego Hamilton M.D. Leuk.Esterase,Urine Negative Normal Negative [facility] Comment on above: Performed By: #### P REGUR, UA ####Unless otherwise noted, all testing performed by [address] [phone]: [id number] Director: Diego Hamilton M.D. Specific [place],Urine 1.024 Normal 1.003-1.029 [facility] Comment on above: Performed By: #### P REGUR, UA ####Unless otherwise noted, all testing performed by [address] [phone]: [id number] Director: Diego Hamilton M.D. Squamous Epithelial 4 /HPF Normal 0-40 [facility] Comment on above: Performed By: #### P REGUR, UA ####Unless otherwise noted, all testing performed by [address] [phone]: [id number] Director: Diego Hamilton M.D. Urine, erythrocytes in sediment by area /[HPF] Normal 0-5 [facility] Comment on above: Performed By: #### P REGUR, UA ####Unless otherwise noted, all testing performed by [address] [phone]: [id number] Director: Diego Hamilton M.D. WBC,Urine 1 /HPF Normal 0-5 [facility] Comment on above: Performed By: #### P REGUR, UA ####Unless otherwise noted, all testing performed by [address] [phone]: [id number] Director: Diego Hamilton M.D. CBC and Differentialon 11-11 Basophils Auto #/vol (Bld) 0.0 K/mcL Invalid Interpretation Code 0 - 0.2 [facility] Basophils/100 WBC Auto (Bld) 0.3 % Normal [facility] Comment on above: Performed By: #### C BCDIF, EXCEP, LIPASE ####Unless otherwise noted, all testing performed by [address] [phone]: [id number] Director: Diego Hamilton M.D. Eosinophils 0.1 K/mcL Invalid Interpretation Code 0 - 0.5 [facility] Eosinophils/100 leukocytes 0.6 % Normal [facility] Comment on above: Performed By: #### C BCDIF, EXCEP, LIPASE ####Unless otherwise noted, all testing performed by [address] [phone]: [id number] Director: Diego Hamilton M.D. Erythrocyte distribution width Auto Ratio (RBC) 13.2 % Normal 10.0-14.4 [facility] Comment on above: Performed By: #### C BCDIF, EXCEP, LIPASE ####Unless otherwise noted, all testing performed by [address] [phone]: [id number] Director: Diego Hamilton M.D. Erythrocytes (RBC) 5.13 M/mcL High 3.7 - 5.0 [facility] Hematocrit (HCT) 47.0 % High 34.4-44.[address] [facility] Comment on above: Performed By: #### C BCDIF, EXCEP, LIPASE ####Unless otherwise noted, all testing performed by [address] [phone]: [id number] Director: Diego Hamilton M.D. Hemoglobin mass conc (Bld) 15.3 g/dL Normal 11.6-15.4 [facility] Comment on above: Performed By: #### C BCDIF, EXCEP, LIPASE ####Unless otherwise noted, all testing performed by [place] [phone]: [id number] Director: Diego Hamilton M.D. Lymphocytes 1.5 K/mcL Invalid Interpretation Code 1.0 - 3.7 [facility] Lymphocytes/100 leukocytes 12.1 % Normal [facility] Comment on above: Performed By: #### C BCDIF, EXCEP, LIPASE ####Unless otherwise noted, all testing performed by [place] [phone]: [id number] Director: Diego Hamilton M.D. MCH 29.8 pg Normal 27.9-33.9 [facility] Comment on above: Performed By: #### C BCDIF, EXCEP, LIPASE ####Unless otherwise noted, all testing performed by [address] [phone]: [id number] Director: Diego Hamilton M.D. MCHC mass conc (RBC) 32.6 g/dL Low 33.1-35.1 [facility] Comment on above: Performed By: #### C BCDIF, EXCEP, LIPASE ####Unless otherwise noted, all testing performed by [address] [phone]: [id number] Director: Diego Hamilton M.D. MCV 91.5 fL Normal 82.6-98.9 [facility] Comment on above: Performed By: #### C BCDIF, EXCEP, LIPASE ####Unless otherwise noted, all testing performed by [address] [id number]: [id number] Director: Diego Hamilton M.D. Monocytes 0.6 K/mcL Invalid Interpretation Code 0.1 - 0.6 [facility] Monocytes/100 leukocytes 5.1 % Normal [facility] Comment on above: Performed By: #### C BCDIF, EXCEP, LIPASE ####Unless otherwise noted, all testing performed by [address] [id number]: [id number] Director: Diego Hamilton M.D. Neutrophils 10.0 K/mcL High 1.2 - 6.9 [facility] Platelet mean volume (PMV) 11.1 fL High 7.0-10.6 [facility] Comment on above: Performed By: #### C BCDIF, EXCEP, LIPASE ####Unless otherwise noted, all testing performed by [address] [id number]: [id number] Director: Diego Hamilton M.D. Platelets 235 K/mcL Invalid Interpretation Code 162 - 402 [facility] Segmented Neut 81.9 % Invalid Interpretation Code [facility] WBC (Leukocytes) 12.2 K/mcL High 3.4 - 10.[address] [facility] CBC with Diffon 11-11-2017 Basophils Auto #/vol (Bld) 0.0 K/mcL Normal 0-0.2 [facility] Comment on above: Performed By: #### C BCDIF, EXCEP, LIPASE ####Unless otherwise noted, all testing performed by [address] [id number]: [id number] Director: Diego Hamilton M.D. Eosinophils 0.1 K/mcL Normal 0-0.5 [facility] Comment on above: Performed By: #### C BCDIF, EXCEP, LIPASE ####Unless otherwise noted, all testing performed by [address]CLIA: [id number] Director: Diego Hamilton M.D. Erythrocytes (RBC) 5.13 M/mcL High 3.7-5.0 [facility] Comment on above: Performed By: #### C BCDIF, EXCEP, LIPASE ####Unless otherwise noted, all testing performed by [address]8[address]CLIA: [id number] Director: Diego Hamilton M.D. Lymphocytes 1.5 K/mcL Normal 1.0-3.7 [facility] Comment on above: Performed By: #### C BCDIF, EXCEP, LIPASE ####Unless otherwise noted, all testing performed by [address]8[address]CLIA: [id number] Director: Diego Hamilton M.D. Monocytes 0.6 K/mcL Normal 0.1-0.6 [facility] Comment on above: Performed By: #### C BCDIF, EXCEP, LIPASE ####Unless otherwise noted, all testing performed by [place] [address] [facility] [facility], [place] [id number]: [id number] Director: Diego Hamilton M.D. Neutrophils 10.0 K/mcL High 1.2-6.9 [facility] Comment on above: Performed By: #### C BCDIF, EXCEP, LIPASE ####Unless otherwise noted, all testing performed by [address] [id number]: [id number] Director: Diego Hamilton M.D. Platelets 235 K/mcL Normal 162-402 [facility] Comment on above: Performed By: #### C BCDIF, EXCEP, LIPASE ####Unless otherwise noted, all testing performed by [address] [id number]: [id number] Director: Diego Hamilton M.D. Segmented Neut % 81.9 % Normal [facility] Comment on above: Performed By: #### C BCDIF, EXCEP, LIPASE ####Unless otherwise noted, all testing performed by [address] [id number]: [id number] Director: Diego Hamilton M.D. WBC (Leukocytes) 12.2 K/mcL High 3.4-10.6 [facility] Comment on above: Performed By: #### C BCDIF, EXCEP, LIPASE ####Unless otherwise noted, all testing performed by [address] [phone]: [id number] Director: Diego Hamilton M.D. Exception Noticeon 8 Exception Notice Complete Metabolic Panel cancelled due to hemolysis. Will be redrawn. Normal [facility] Comment on above: Performed By: #### C BCDIF, EXCEP, LIPASE ####Unless otherwise noted, all testing performed by [address] [id number]: [id number] Director: Diego Hamilton M.D. Lipaseon 11-11-2017 Interpretation and review of laboratory results Abnormal Invalid Interpretation Code [facility] Lipase 52 U/L Low 73-393 [facility] Comment on above: Performed By: #### C BCDIF, EXCEP, LIPASE ####Unless otherwise noted, all testing performed by [address] [phone]: [id number] Director: Diego Hmailton M.D. US TRANSVAGINAL WITH DOPPLER on 01-21-2017 [...] amount of free fluid, likely physiologic. Normal [facility] Vital Signs Date Time Vital Sign Value Performing Clinician Dylan manley 07-29-2023 13:08-0400 Body height 162.6 cm Dana Mcdonough MD Work Phone: [employer] 07-29-2023 13:08-0400 Body mass index (BMI) [Ratio] 38.21 kg/m2 [facility]cd[facility]ough [facility] 07-29-2023 13:08-0400 Body weight 100.97 kg Dana [facility]cd[facility]ough MD [facility] 07-29-2023 13:08-0400 Diastolic blood pressure 64 mm[Hg] Dana [facility]cdonough MD [facility] 07-29-2023 13:08-0400 Heart rate 88 /min Dana [facility]cdonough MD [facility] 07-29-2023 13:08-0400 Systolic blood pressure 105 mm[Hg] Dana [facility]cdonough MD [facility] 12-19-2022 10:04-0400 Body mass index (BMI) [Ratio] 39.51 kg/m2 Matthew Tafoya MD Work Phone: [employer] 12-19-2022 10:04-0400 Body temperature 98.29 [degF] Matthew Tafoya MD Work Phone: [employer] 12-19-2022 10:04-0400 Body weight 104.42 kg Matthew Tafoya MD Work Phone: [employer] 12-19-2022 10:04-0400 Diastolic blood pressure 82 mm[Hg] Matthew Tafoya MD Work Phone: [employer] 12-19-2022 10:04-0400 Heart rate 106 /min Matthew Tafoya MD Work Phone: [employer] 12-19-2022 10:04-0400 Respiratory rate 16 /min Matthew Tafyoa MD Work Phone: [employer] 12-19-2022 10:04-0400 SaO2% (BldA) [Mass fraction] 95 % Matthew Tafoya MD Work Phone: [employer] 12-19-2022 10:04-0400 Systolic blood pressure 119 mm[Hg] Matthew Tafoya MD Work Phone: [facility] 12-06-2022 13:24-0400 Body temperature 98.42 [degF] Grahamnabila Choe [facility] 12-06-2022 13:24-0400 Diastolic blood pressure 75 mm[Hg] Graham Choe [facility] 12-06-2022 13:24-0400 Heart rate 95 /min Rgahamnabila Choe [facility] 12-06-2022 13:24-0400 Mean blood pressure 95 mm[Hg] Grahamnabila Choe [facility] 12-06-2022 13:24-0400 Respiratory rate 18 /min Graham Choe [facility] 12-06-2022 13:24-0400 SaO2% (BldA) [Mass fraction] 96 % Grahamnabila Choe [facility] 12-06-2022 13:24-0400 Systolic blood pressure 136 mm[Hg] Grahamnabila Choe [facility] 06-16-2022 01:37-0500 Body height 162.6 cm Hoang Santos MD Work Phone[facility] 06-16-2022 01:37-0500 Body mass index (BMI) [Ratio] 39.94 kg/m2 Hoang Santos MD Work Phone[facility] 06-16-2022 01:37-0500 Body temperature 98.01 [degF] Hoang Santos MD Work Phone: [facility] [employer] 06-16-2022 01:37-0500 Body weight 105.55 kg Hoang Santos MD Work Phone[facility] [employer] 06-16-2022 01:37-0500 Diastolic blood pressure 77 mm[Hg] Hoang Santos MD Work Phone: [employer] 06-16-2022 01:37-0500 Heart rate 88 /min Hoang Santos MD Work Phone: [employer] 06-16-2022 01:37-0500 Respiratory rate 16 /min Hoang Santos MD Work Phone: [employer] 06-16-2022 01:37-0500 SaO2% (BldA) [Mass fraction] 98 % Hoang Santos MD Work Phone: [employer] 06-16-2022 01:37-0500 Systolic blood pressure 122 mm[Hg] Hoang Santos MD Work Phone: [employer] 03-13-2022 09:30-0500 Body height 162.6 cm Bea Jacobs MD Work Phone: [employer] 03-13-2022 09:30-0500 Body mass index (BMI) [Ratio] 37.81 kg/m2 Bea Jacobs MD Work Phone: [employer] 03-13-2022 09:30-0500 Body temperature 98.2 [degF] Bea Jacobs MD Work Phone: [employer] 03-13-2022 09:30-0500 Body weight 99.93 kg Bea Jacobs MD Work Phone: [employer] 03-13-2022 09:30-0500 Diastolic blood pressure 72 mm[Hg] Bea Jacobs MD Work Phone: [employer] 03-13-2022 09:30-0500 Heart rate 76 /min Bea Jacobs MD Work Phone: [employer] 03-13-2022 09:30-0500 Respiratory rate 18 /min Bea Jacobs MD Work Phone: [employer] 03-13-2022 09:30-0500 SaO2% (BldA) [Mass fraction] 96 % Bea Jacobs MD Work [facility] 03-13-2022 09:30-0500 Systolic blood pressure 116 mm[Hg] Bea Jacobs MD Work Phone[facility] 11-29-2021 14:37-0400 Diastolic blood pressure 69 mm[Hg] Bea Jacobs MD Work Phone: [employer] 11-29-2021 14:37-0400 Heart rate 80 /min Bea Jacobs MD Work Phone: [employer] 11-29-2021 14:37-0400 SaO2% (BldA) [Mass fraction] 96 % Bea Jacobs MD Work Phone: [employer] 11-29-2021 14:37-0400 Systolic blood pressure 112 mm[Hg] Bea Jacobs MD Work Phone: [employer] 11-29-2021 14:36-0400 Body height 162.6 cm Bea Jacobs MD Work Phone: [employer] 11-29-2021 14:36-0400 Body mass index (BMI) [Ratio] 36.39 kg/m2 Bea Jacobs MD Work Phone: [employer] 11-29-2021 14:36-0400 Body temperature 99.5 [degF] Bea Jacobs MD Work Phone: [employer] 11-29-2021 14:36-0400 Body weight 96.16 kg Bea Jacobs MD Work Phone: [employer] 11-29-2021 14:36-0400 Respiratory rate 18 /min Bea Jacobs MD Work Phone: [employer] 05-22-2021 14:29-0500 Body mass index (BMI) [Ratio] 32.89 kg/m2 Hoang Santos MD Work Phone: [employer] 05-22-2021 14:29-0500 Body temperature 99.5 [degF] Hoang Santos MD Work Phone: [employer] 05-22-2021 14:29-0500 Body weight 92.44 kg Hoang Santos MD Work Phone: [employer] 05-22-2021 14:29-0500 Diastolic blood pressure 61 mm[Hg] Hoang Santos MD Work Phone: [employer] 05-22-2021 14:29-0500 Heart rate 97 /min Hoang Santos MD Work Phone: [employer] 05-22-2021 14:29-0500 Respiratory rate 18 /min Hoang Santos MD Work Phone: [employer] 05-22-2021 14:29-0500 SaO2% (BldA) [Mass fraction] 96 % Hoang Santos MD Work Phone: [employer] 05-22-2021 14:29-0500 Systolic blood pressure 117 mm[Hg] Hoang Santos MD Work Phone: [employer] 04-12-2021 18:20-0500 Body temperature 98.6 [degF] Dana Redman MD Work Phone: [employer] 04-12-2021 18:20-0500 Diastolic blood pressure 75 mm[Hg] Dana Redman MD Work Phone: [employer] 04-12-2021 18:20-0500 Heart rate 92 /min Dana Redman MD Work Phone: [employer] 04-12-2021 18:20-0500 Respiratory rate 20 /min Dana Redman MD Work Phone: [employer] 04-12-2021 18:20-0500 SaO2% (BldA) [Mass fraction] 96 % Dana Redman MD Work Phone: [employer] 04-12-2021 18:20-0500 Systolic blood pressure 118 mm[Hg] Dana Redman MD Work Phone: [employer] 04-12-2021 18:18-0500 Body height 167.6 cm Dana Redman MD Work Phone: [employer] 04-12-2021 18:18-0500 Body mass index (BMI) [Ratio] 32.28 kg/m2 Dana Redman MD Work Phone: [employer] 04-12-2021 18:18-0500 Body weight 90.72 kg Dana Redman MD Work Phone: [employer] 02-10-2021 17:39-0400 Body temperature 99.1 [degF] Braydon May MD Work Phone: [employer] Work Phone: 02-10-2021 17:27-0400 Body height 162.6 cm Braydon May MD Work Phone: [employer] Work Phone: 02-10-2021 17:27-0400 Body mass index (BMI) [Ratio] 37.75 kg/m2 Braydon May MD Work Phone: [employer] Work Phone: 02-10-2021 17:27-0400 Body weight 99.75 kg Braydon May MD Work Phone: [employer] Work Phone: 02-10-2021 17:27-0400 Diastolic blood pressure 84 mm[Hg] Braydon May MD Work Phone: [employer] Work Phone: 02-10-2021 17:27-0400 Heart rate 83 /min Braydon May MD Work Phone: [employer] Work Phone: 02-10-2021 17:27-0400 Respiratory rate 20 /min Braydon May MD Work Phone: [employer] Work Phone: 02-10-2021 17:27-0400 SaO2% (BldA) [Mass fraction] 95 % Braydon May MD Work Phone: [employer] Work Phone: 02-10-2021 17:27-0400 Systolic blood pressure 128 mm[Hg] Braydon May MD Work Phone: [employer] Work Phone: 12-10-2020 19:54-0400 Diastolic blood pressure 63 mm[Hg] Bea Jacobs MD Work Phone: [employer] Work Phone: 12-10-2020 19:54-0400 SaO2% (BldA) [Mass fraction] 97 % Bea Jacobs MD Work Phone: [employer] Work Phone: 12-10-2020 19:54-0400 Systolic blood pressure 111 mm[Hg] Bea Jacobs MD Work Phone: [employer] Phone: 08-01-2020 18:44-0400 BMI (Body Mass Index) 33.47 kg/m2 Noelneetu Reynaldo [employer] Phone: 08-01-2020 18:44-0400 Body Temperature 97.9 [degF] Bea Jacobs [employer] Work Phone: 08-01-2020 18:44-0400 Body weight 88.45 kg Noelneetu Reynaldo [employer] Phone: 08-01-2020 18:44-0400 BP Diastolic 72 mm[Hg] Bea Jacobs [employer] Work Phone: 08-01-2020 18:44-0400 BP Systolic 127 mm[Hg] Bea Jacobs [employer] Work Phone: 08-01-2020 18:44-0400 Height 162.6 cm [facility] Work Phone: 08-01-2020 18:44-0400 Pulse (Heart Rate) 93 /min Bea Jacobs [facility] Work Phone: 08-01-2020 18:44-0400 Pulse Oximetry 99 % [facility] Work Phone: 08-01-2020 18:44-0400 Respiratory Rate 16 /min [facility] Work Phone: 01-04-2020 12:33-0400 BMI (Body Mass Index) 32.96 kg/m2 [facility] 01-04-2020 12:33-0400 Body Temperature 98.1 [degF] [facility] 01-04-2020 12:33-0400 Body weight 87.09 kg [facility] 01-04-2020 12:33-0400 BP Diastolic 63 mm[Hg] [facility] 01-04-2020 12:33-0400 BP Systolic 115 mm[Hg] [facility] 01-04-2020 12:33-0400 Height 162.6 cm [facility] 01-04-2020 12:33-0400 Pulse (Heart Rate) 83 /min [facility] 01-04-2020 12:33-0400 Pulse Oximetry 97 % [facility] 12-23-2019 21:12-0400 BMI (Body Mass Index) 32.96 kg/m2 [facility] [place] 12-23-2019 21:12-0400 Body Temperature 98.71 [degF] [facility] 12-23-2019 21:12-0400 Body weight 87.09 kg [facility] 12-23-2019 21:12-0400 BP Diastolic 69 mm[Hg] [facility] [place] 12-23-2019 21:12-0400 BP Systolic 129 mm[Hg] [facility] [place] 12-23-2019 21:12-0400 Pulse (Heart Rate) 102 /min [facility] [place] 12-23-2019 21:12-0400 Pulse Oximetry 100 % Hoang Santos [facility], [place] 12-23-2019 21:12-0400 Respiratory Rate 18 /min [facility] [place] 10-22-2019 12:21-0400 BMI (Body Mass Index) 33.3 kg/m2 [facility], [place] 10-22-2019 12:21-0400 Body Temperature 98.8 [degF] Arin Celeste [facility], [place] 10-22-2019 12:21-0400 Body weight 88 kg [facility]in [facility] , [place] 10-22-2019 12:21-0400 BP Diastolic 67 mm[Hg] [facility] [place] 10-22-2019 12:21-0400 BP Systolic 113 mm[Hg] [facility] [place] 10-22-2019 12:21-0400 Height 162.6 cm [facility]in [facility] , [place] 10-22-2019 12:21-0400 Pulse (Heart Rate) 77 /min [facility]in [facility], [place] 10-22-2019 12:21-0400 Pulse Oximetry 98 % [facility]in [facility] , [place] 10-22-2019 12:21-0400 Respiratory Rate 18 /min Arin Celeste [facility], [place] 04-06-2019 13:49-0500 Pulse Oximetry 98 % Bea Jacobs [facility], [place] 04-06-2019 13:39-0500 BP Diastolic 92 mm[Hg] Bea Jacobs [facility], [place] 04-06-2019 13:39-0500 BP Systolic 119 mm[Hg] Bea Jacobs [facility], [place] 04-06-2019 13:37-0500 Body Temperature 97.59 [degF] Bea Jacobs [facility], [place] 04-06-2019 13:37-0500 Body weight 84.82 kg Bea Jacobs [facility], [place] 04-06-2019 13:37-0500 Pulse (Heart Rate) 77 /min [facility] 04-06-2019 13:37-0500 Respiratory Rate 16 /min [facility] En[facility] Encounter Date Encounter Type Care Provider Facility Start: 11-20-2023 End: 11-20-2023 ambulatory [facility] Start: 11-20-2023 End: 11-20-2023 ambulatory LOY R [facility] Start: 11-18-2023 End: 11-18-2023 ambulatory LOY YOGI Not Available Start: 11-12-2023 End: 11-12-[address] [facility] Start: 11-04-2023 End: 11-04-2023 ambulatory LOY YOGI Not Available Start: 11-02-2023 End: 11-02-[address] [facility] Start: 10-31-2023 End: 11-03-2023 Evaluation and management of inpatient ZAYRA Squires KIMBLE [facility] Start: 10-31-2023 End: 10-31-2023 ambulatory HERMAN URRUTIA [facility] Start: 10-31-2023 End: 10-31-[address] [facility] Start: 10-22-2023 ambulatory Redd Dueñas acility:[facility] Start: 10-20-2023 End: 10-20-2023 ambulatory LOY YOGI Not Available Start: 10-13-2023 End: 10-13-2023 Emergency department patient visit GAYE Carrasco [facility] Start: 10-09-2023 End: 10-09-2023 Emergency department patient visit [facility] Start: 08-29-2023 End: 08-29-2023 ambulatory [facility] Start: 08-18-2023 End: 08-18-2023 ambulatory [facility] Start: 07-29-2023 End: 07-29-2023 Office outpatient new 45 minutes Dana Mcdonough MD Work Phone: [facility] Comment on above: Type 2 diabetes ashley itus affecting in second trimester, antepartum (Primary Dx); Twin , dichorionic/diamniotic, second trimester; Obesity affecting in second trimester, unspecified obesity type; Bipolar disease during in second trimester ([facility] Post traumatic stress disorder; Tobacco smoking affecting in second trimester Start: 07-29-2023 End: 07-29-2023 Orders Only Dawit Carter [facility] Comment on above: Type 2 diabetes ashley itus affecting in second trimester, antepartum (Primary Dx); Twin , dichorionic/diamniotic, second trimester; Bipolar disease during in second trimester ([facility] Start: 07-29-2023 End: 07-30-2023 ambulatory ROSA ROCHA [facility] Start: 07-24-2023 Telephone encounter Thuy CRESPO [facility] Start: 07-15-2023 Telephone encounter Rosa crane RN Work Phone: [facility] Start: 07-09-2023 Orders Only Not In System Ref Prov [facility] Start: 06-30-2023 End: 06-30-2023 ambulatory LOY YOGI Not Available Start: 05-30-2023 End: 05-30-2023 ambulatory LOY YOGI Not Available Start: 05-15-2023 End: 05-15-2023 ambulatory LOY YOGI Not Available Start: 04-01-2023 End: 04-01-2023 Emergency department patient visit [facility] Start: 02-13-2023 End: 02-13-2023 ambulatory [facility] Start: 12-22-2022 End: 12-22-2022 Emergency department patient visit [facility] Start: 12-19-2022 End: 12-19-2022 Emergency department patient visit Matthew Tafoya MD Work Phone: [facility] Comment on above: Acute cystitis witho ut hematuria (Primary Dx); Vaginal yeast infection Start: 12-06-2022 End: 12-06-2022 Emergency department patient visit Graham Choe Facility:[facility] Start: 12-06-2022 End: 12-06-2022 Emergency department patient visit Graham Choe [facility] Start: 06-16-2022 End: 06-16-2022 Emergency department patient visit Hoang Santos MD Work Phone: [facility] Comment on above: Nausea and vomiting, unspecified vomiting type (Primary Dx); Intractable headache, unspecified chronicity pattern, unspecified headache type Start: 03-13-2022 End: 03-13-2022 Emergency department patient visit Bea Jacobs MD Work Phone: [facility] Comment on above: Acute midline low ba ck pain without sciatica (Primary Dx) Start: 11-29-2021 End: 11-29-2021 Emergency department patient visit Bea Jacobs MD Work Phone: [facility] Comment on above: Hordeolum externum [...] Start: 05-31-2021 End: 06-01-2021 ambulatory DAVID LEZAMA [facility] Start: 05-22-2021 End: 05-22-2021 Emergency department patient visit Hoang Santos MD Work Phone: [facility] Comment on above: COVID-19 virus infec tion (Primary Dx); Second trimester Start: 04-12-2021 End: 04-12-2021 Emergency department patient visit Dana Redman MD Work Phone: [facility] Comment on above: Depression during pr egnancy in first trimester (Primary Dx); Dehydration Start: 04-01-2021 End: 04-01-2021 Emergency department patient visit [facility] Start: 03-25-2021 End: 03-25-2021 Emergency department patient visit [facility] Start: 02-10-2021 End: 02-10-2021 Emergency department patient visit Braydon May MD Work Phone: [facility] Comment on above: Threatened miscarria ge in early (Primary Dx) Start: 12-10-2020 End: 12-10-2020 Emergency department patient visit Bea Jacobs MD Work Phone: [facility] Comment on above: Symptoms of dehydrat ion (Primary Dx); Nausea vomiting and diarrhea Start: 08-02-2020 End: 08-07-2020 Evaluation and management of inpatient [facility] Start: 08-01-2020 End: 08-02-2020 Emergency department patient visit Bea Jacobs Work Phone: [facility] Comment on above: Suicidal thoughts (P rimary Dx); Depression with suicidal ideation Start: 05-22-2020 End: 05-26-2020 Patient encounter procedure [facility] Start: 03-22-2020 End: 03-26-2020 Patient encounter procedure [facility] Start: 01-18-2020 End: 01-18-2020 Subsequent hospital visit by physician Perla Rm [facility] Comment on above: Palpitations Start: 01-04-2020 End: 01-04-2020 Patient encounter procedure [facility] Start: 01-04-2020 End: 01-04-2020 Office outpatient visit 25 minutes [facility] Work Phone: [facility] Comment on above: Anxious depression ( Primary Dx); Smoker; Weight gain; Fatigue, unspecified type; Screening cholesterol level Start: 12-23-2019 End: 12-23-2019 Emergency department patient visit Hoang Santos Work Phone: [facility] Comment on above: Bronchitis (Primary Dx) Start: 11-22-2019 End: 11-22-2019 Patient encounter procedure [facility] Start: 11-12-2019 End: 11-12-2019 Patient encounter procedure [facility] Start: 11-01-2019 End: 11-01-2019 Subsequent hospital visit by physician [facility] Comment on above: Exposure to COVID-19 virus; Cough in adult patient Start: 10-22-2019 End: 10-22-2019 Emergency department patient visit Arin Carter Work Phone: [facility] Comment on above: Acute bronchitis, un specified organism (Primary Dx); Tobacco abuse; Encounter for laboratory testing for COVID-19 virus Start: 04-06-2019 End: 04-06-2019 Emergency department patient visit Bea Danilo Reynaldo Work Phone: [facility] Comment on above: Bronchitis (Primary Dx); Acute sinusitis, recurrence not specified, unspecified location Start: 11-11-2017 End: 11-12-2017 Emergency department patient visit Aicha Méndez Facility:[place] Start: 11-11-2017 End: 11-11-2017 Ambulatory [place] Maryjo Romerooh Work Phone: [facility] Start: 01-20-2017 Ambulatory [facility] Start: 01-16-2017 Ambulatory [facility] Procedures Date Procedure Procedure Detail Performing [...] Ct head/brain w/o co ntrast material Hoang Sanots MD Work Phone: Start: 06-16-2022 Urnls dip [...] ion [Identifier] in Cervix by Cyto stain Bryadon May MD Work Phone: Start: 01-18-2020 Assay [...] Adult BMI Screening Adult BMI Screen ing [facility] Start: 07-28-2024 Tobacco Screening Tobacco Screening [facility] Start: 07-28-2024 End: 07-28-2024 US MFM with or without consult US MFM with or without consult Imaging Routine Twin , dichorionic/diamniotic, second trimester Bipolar disease during in second trimester ([facility]) Expected: 07/28/2024 (Approximate), Expires: 07/28/2024 [facility] Comment on above: Expected: 07/28/2024 (Approximate), Expires: 07/28/2024 Start: 08-29-2023 End: 08-29-2023 Patient encounter procedure 08/29/2023 1:00 PM EDT Appointment [facility] Imaging [address] [place] [phone] [facility] Start: 07-29-2023 End: 07-29-2023 Patient encounter procedure [facility] Start: 07-15-2023 End: 07-15-2023 Patient encounter procedure 07/15/2023 2:00 PM EDT Office Visit Maternal- Medicine at [facility] [address] [place] [phone] Gaby Bustillos, PA-C [address] [place] [phone] [facility] Start: 07-15-2023 End: 07-15-2023 ambulatory 07/15/2023 1:00 PM EDT Support Visit Maternal- Medicine at [facility] [address] [place] [phone] Rosa Rocha RN [address] [facility], [address] [place] [phone] Carmen Cheung LD [facility] at [facility] Start: 03-22-2023 Screening for malign ant neoplasm of cervix Pap smear [facility] Start: 01-03-2023 Influenza vaccination Influenza Vacc [facility] Start: 12-03-2022 Influenza vaccination Flu vaccine (# 1) [facility] Start: 03-29-2022 Screening for Chlamy deisy trachomatis [facility] Start: 01-03-2022 Influenza vaccination Flu vaccine (# 1) [facility] Start: 12-03-2021 Influenza vaccination Flu vaccine (# 1) [facility] Start: 05-31-2021 End: 05-31-2021 Patient encounter procedure 05/31/2021 Routine Perinatology [facility] Start: 01-17-2021 Depression Monitoring Depression Sapphire valle [facility] Start: 01-03-2021 Influenza vaccination Flu vaccine (# 1) [facility] Start: 04-04-2020 End: 01-03-2021 Complete blood count with white cell differential, manual CBC and Differential Lab Routine Fatigue, unspecified type Expected: 04/04/2020 (Approximate), Expires: 01/03/2021 [facility] Comment on above: Expected: 04/04/2020 (Approximate), Expires: 01/03/2021 Start: 04-04-2020 End: 01-03-2021 Comprehensive metabolic 2000 panel Comprehensive Metabolic Panel Lab Routine Fatigue, unspecified type Expected: 04/04/2020 (Approximate), Expires: 01/03/2021 [facility] Comment on above: Expected: 04/04/2020 (Approximate), Expires: 01/03/2021 Start: 04-04-2020 End: 01-03-2021 Magnesium [Mass/Vol] Magnesium Level Lab Routine Fatigue, unspecified type Expected: 04/04/2020 (Approximate), Expires: 01/03/2021 [facility] Comment on above: Expected: 04/04/2020 (Approximate), Expires: 01/03/2021 Start: 02-18-2020 End: 02-18-2020 Office Visit 02/18/2020 Office Visit Family Medicine Perla Rm, DO [address] [place] [phone] [facility] Start: 02-15-2020 End: 02-15-2020 Office Visit 02/15/2020 Office Visit Primary Care Juanito Hernandez MD [facility] [address] [place], [place] [phone] [facility] Start: 01-04-2020 Influenza vaccination [place], [place] Start: 01-04-2020 Influenza vaccinatio n given Sequential Influenza Vaccine (#1) [facility] Start: 12-12-2019 DTaP,Tdap and Td Vaccines (7 - Td or Tdap) DTaP,Tdap and Td Vaccines (7 - Td or Tdap) [facility] Start: 12-12-2019 DTaP/Tdap/Td vaccine (7 - Td or Tdap) DTaP/Tdap/Td vaccine (7 - Td or Tdap) [facility] Start: 07-16-2019 Screening for Chlamy deisy trachomatis Chlamydia Screening [facility] Start: 01-03-2019 Influenza vaccination Flu vaccine (# 1) [place], [place] Start: 2018 Cervical cancer screen Cervical canc er screen [place], [place] Start: 2018 Screening for malign ant neoplasm of cervix [facility] Start: 2016 DTaP,Tdap and Td Vaccines (1 - Tdap) DTaP,Tdap and Td Vaccines (1 - Tdap) [facility] Start: 2016 DTaP/Tdap/Td vaccine (1 - Tdap) DTaP/Tdap/Td vaccine (1 - Tdap) [facility] Start: 08-15-2015 Adult BMI Follow Up Plan Adult BMI Follow Up Plan [facility] Start: 08-15-2015 Adult BMI Screening Adult BMI Screen ing [facility] Start: 08-15-2015 Diabetic foot examination Diabetic Foot Exam [facility] Start: 08-15-2015 Hepatitis C screening Hepatitis C sc reen [facility] Start: 2013 Chlamydia screen Chlamydia screen [place], [place] Start: 2013 COVID-19 Vaccine (1) COVID-19 Vaccin e (1) [facility] Work Phone: Start: 2013 Screening for Chlamy deisy trachomatis Chlamydia screen [facility] Start: 2012 HIV screen HIV screen [place], [place] Start: 2012 HIV screening HIV screen [facility] Start: 03-05-2010 Varicella vaccine (2 of 2 - 2-dose childhood series) Varicella vaccine (2 of 2 - 2-dose childhood series) [facility] Start: 2009 COVID-19 Vaccine (1) COVID-19 Vaccin e (1) [facility] Start: 2009 Depression Monitoring Depression Mon [facility] Start: 2009 [facility]: 2009 Tobacco Screening Tobacco Screening [facility] Start: 2008 DTaP/Tdap/Td vaccine (1 - Tdap) DTaP/Tdap/Td vaccine (1 - Tdap) [place], [place] Start: 2008 HPV vaccine (1 - 2-d ose series) HPV vaccine (1 - 2-dose series) [facility] Start: 2008 HPV vaccine (1 - Fem man 2-dose series) HPV vaccine (1 - Female 2-dose series) [place] Start: 2008 Vaccination for maria del carmen n papillomavirus HPV Vaccines (1 - 2-dose series) [facility] Start: 08-15-2003 Pneumococcal 0-64 ye ars Vaccine (1 - PCV) Pneumococcal 0-64 years Vaccine (1 - PCV) [facility] Start: 08-15-2003 Pneumococcal 0-64 ye ars Vaccine (1 of 1 - PPSV23) Pneumococcal 0-64 years Vaccine (1 of 1 - PPSV23) [place] Start: 08-15-2003 Pneumococcal 0-64 ye ars Vaccine (1 of 2 - PPSV23) Pneumococcal 0-64 years Vaccine (1 of 2 - PPSV23) [facility] Start: 2002 COVID-19 Vaccine (1) COVID-19 Vaccin e (1) [facility] Start: 2000 History and physical examination, annual for health maintenance Wellness Visit [facility] Start: 1998 Varicella Vaccine (1 of 2 - 2-dose childhood series) Varicella Vaccine (1 of 2 - 2-dose childhood series) [facility] Start: 02-13-1998 COVID-19 Vaccine (#1) COVID-19 Vacci ne (#1) [facility] Start: 1997 Depression screening using PHQ-9 (Patient Health Questionnaire 9) score Depression Screening (PHQ9) [facility] Start: 1997 Glaucoma screening Diabetic Op hthalmology Exam [facility] Start: 1997 Hepatitis C screening [facility] Start: 1997 Screening for malign ant neoplasm of cervix Pap Smear [facility] Start: 1997 Tetanus vaccination Tetanus: Every 1 0yrs [facility] Start: 1997 Tobacco Counseling Tobacco Counselin g [facility] Start: 1997 Urine screening for protein Urine Microalbumin [facility] End: 01-03-2021 Cholesterol [Mass/Vol] Cholesterol, Total Lab Routine Screening cholesterol level 1 Occurrences starting 01/04/2020 until 01/03/2021 [facility] Comment on above: 1 Occurrences starti ng 01/04/2020 until 01/03/2021 End: 10-22-2019 COVID-19 COVID-19 Lab Routine One Time for 1 Occurrences starting 10/22/2019 until 10/22/2019 [place] Comment on above: One Time for 1 Occur rences starting 10/22/2019 until 10/22/2019 End: 11-01-2019 Covid-19 Ambulatory Covid-19 Ambulatory Lab Routine Exposure To Covid-19 Virus Cough in adult patient 1 Occurrences starting 11/01/2019 until 11/01/2019 [facility] ID Comment on above: 1 Occurrences starti ng 11/01/2019 until 11/01/2019 Covid-19 Ambulatory Covid-19 Amb ulatory Lab Routine Exposure to COVID-19 virus Cough in adult patient 11/01/2019 11:25 AM EDT [facility] ID End: 02-10-2021 Culture, Urine Culture, Urine Microbiology Routine Once for 1 Occurrences starting 02/10/2021 until 02/10/2021 [employer] Work Phone: Comment on above: Once for 1 Occurrenc es starting 02/10/2021 until 02/10/2021 Culture, Urine Culture, Urine Microbiology Routine 02/10/2021 5:41 PM EDT [employer] Work Phone: End: 12-19-2022 Culture, Urine [facility] Comment on above: Once for 1 Occurrenc es starting 12/19/2022 until 12/19/2022 End: 10-22-2019 MDI Treatment MDI Treatment Respiratory Care Routine One Time for 1 Occurrences starting 10/22/2019 until 10/22/2019 [facility] ID Comment on above: One Time for 1 Occur rences starting 10/22/2019 until 10/22/2019 MDI Treatment MDI Treatment Respiratory Care Routine Every 6hr As Needed until discontinued starting 10/22/2019 [facility] ID Comment on above: Every 6hr As Needed until discontinued starting 10/22/2019 End: 01-03-2021 TSH Qn TSH with Reflex Free T4 Lab Routine Weight gain Fatigue, unspecified type 1 Occurrences starting 01/04/2020 until 01/03/2021 [facility] Comment on above: 1 Occurrences starti ng 01/04/2020 until 01/03/2021 Immunizations Immunization Date Immunization Notes Care Provider Nupur west 03-02-2012 influenza virus vaccine, unspecified formulation Dawit Carter [facility] NEGATED: Highlighted row has not occurred!06-13-2020 influenza virus vaccine, unspecified formulation Graham Choe [facility] Payers Date Payer Category Payer Medicaid [employer] [facility] H[facility] [id number] 2023-Present [phone] [address] [place] [address] [id number] 2023 Medicaid [id number] 2019 Unknown [id number] 2018 Medicaid [id number] 2018 Unknown [id number] 2018 Unknown [id number] 2015 Unknown [id number] 2014 Unknown [id number] 2014 Unknown [employer]IC [employer] [id number] 2014-Present Indemnity [id number] 1.2.840.178432.1.13.239.2.7.3.6 [id number] 1997 Unknown [id number] 2.16.840.1.081472.3.579.2.903 1997 Unknown [id number] 2.16.840.1.622416.3.579.2.900 1997 Unknown [id number] 2.16.840.1.655851.3.579.2.176 1997 Unknown [id number] 2.16.840.1.030168.3.579.2.903 1997 Unknown [id number] 2.16.840.1.772763.3.579.2.903 1997 Unknown [id number] 2.16.840.1.466994.3.579.2.175 1997 Unknown [id number] 2.16.840.1.398713.3.579.2.593 1997 Unknown [id number] 2.16.840.1.993283.3.579.2.593 1997 Unknown [id number] 2.16.840.1.384730.3.579.2.593 1997 Unknown [id number] 2.16.840.1.080446.3.579.2.593 1997 Unknown [id number] 2.16.840.1.830505.3.579.2.593 1997 Unknown [id number] 2.16.840.1.783962.3.579.2.593 1997 Unknown [id number] 2.16.840.1.828680.3.579.2.593 1997 Unknown [id number] 2.16.840.1.944265.3.579.2.593 1997 Unknown [id number] 2.16.840.1.594795.3.579.2.593 1997 Unknown [id number] 2.16.840.1.244655.3.579.2.593 1997 Unknown [id number] 2.16.840.1.620583.3.579.2.593 1997 Unknown [id number] 2.16.840.1.255208.3.579.2.593 1997 Unknown [id number] 2.16.840.1.344935.3.579.2.593 1997 Unknown [id number] 2.16.840.1.850496.3.579.2.593 1997 Unknown [id number] 2.16.840.1.574733.3.579.2.593 1997 Unknown [id number] 2.16.840.1.527485.3.579.2.593 1997 Unknown [id number] 2.16.840.1.092640.3.579.2.593 1997 Unknown [id number] 2.16.840.1.809251.3.579.2.593 1997 Unknown [id number] 2.16.840.1.876563.3.579.2.593 1997 Unknown [id number] 2.16.840.1.268208.3.579.2.593 1997 Unknown [id number] 2.16.840.1.704734.3.579.2.593 1997 Unknown [id number] 2.16.840.1.879185.3.579.2.593 1997 Unknown [id number] 2.16.840.1.503656.3.579.2.593 1997 Unknown [id number] 2.16.840.1.960560.3.579.2.727 1997 Unknown [id number] 2.16.840.1.180905.3.579.2.174 1997 Unknown [id number] 2.16.840.1.514066.3.579.2.174 1997 Unknown [id number] 2.16.840.1.270787.3.579.2.174 1997 Unknown [id number] 2.16.840.1.872394.3.579.2.174 1997 Unknown [id number] 2.16.840.1.152157.3.579.2.174 1997 Unknown [id number] 2.16.840.1.267160.3.579.2.174 1997 Unknown [id number] 2.16.840.1.938689.3.579.2.903 1997 Unknown [id number] 2.16.840.1.622584.3.579.2.1259 1997 Unknown [id number] 2.16.840.1.638574.3.579.2.1259 1997 Unknown [id number] 2.16.840.1.542973.3.579.2.1259 1997 Unknown [id number] 2.16.840.1.174445.3.579.2.9 1997 Unknown [id number] 2.16.840.1.730071.3.579.2.1258 1997 Unknown [id number] 2.16.840.1.420777.3.579.2.9 1997 Unknown [id number] 2.16.840.1.960523.3.579.2.1285 1997 Unknown [id number] 2.16.840.1.444493.3.579.2.1285 1997 Unknown [id number] 2.16.840.1.078857.3.579.2.1285 1997 Unknown [id number] 2.16.840.1.363649.3.579.2.1285 1997 Unknown [id number] 2.16.840.1.212615.3.579.2.1285 1997 Unknown [id number] 2.16.840.1.579255.3.579.2.1285 1997 Unknown [id number] 2.16.840.1.723159.3.579.2.1285 1997 Unknown [id number] 2.16.840.1.268740.3.579.2.1285 1997 Unknown [id number] 2.16.840.1.838968.3.579.2.1285 1997 Unknown [id number] 2.16.840.1.508403.3.579.2.1285 1997 Unknown [id number] 2.16.840.1.159827.3.579.2.6 1959 Self-pay [id number] 1959 Self-pay 1959 Unknown [id number] 1.2.840.825896.1.13.239.2.7.3.6 22137.315 Social History Date Type Detail Facility Tobacco smoking status AZIS Unknown if ever smoked [facility] Start: 1997 Sex Assigned At [facility] Start: 04-06-2019 End: 07-29-2023 Tobacco smoking status NHIS [facility] of tobacco use [facility]igarette Sm[facility] Start: 04-06-2019 End: 07-29-2023 Cigarettes smoked current (pack per day) - Reported [facility] Start: 04-06-2019 End: 07-29-2023 Alcohol intake Ex-drinker (finding) [facility] Start: 04-06-2019 End: 12-19-2022 History SDOH Alcohol Frequency 1 [facility] Exposure to SARS-CoV-2 (event) Unable to assess [facility] Start: 11-01-2019 End: 07-29-2023 Tobacco use and exposure [facility] used [facility] Exposure to SARS-CoV-2 (event) Yes [facility] Start: 01-04-2020 End: 06-16-2022 Alcohol intake Current drinker of alcohol (finding) [facility] Start: 12-05-2018 Alcohol Comment [facility] Start: 11-19-2021 End: 06-16-2022 Exposure to SARS-CoV-2 (event) Not sure [facility] Start: 11-29-2021 Tobacco Comment 5cigs/day 2 [facility] Phone: Start: 06-16-2022 Tobacco smoking status NHIS Ex-smoker [facility] History of tobacco use Current smoker [facility] Phone: Start: 06-16-2022 Alcohol Comment occ. Some tonight [facility] Phone: Start: 08-08-2020 Tobacco smoking status Heavy tobacco smoker (finding) [facility] Start: 07-29-2023 Sex Assigned At Female F [facility] Tobacco smoking status AZIS Tobacco smoking consumption unknown [facility] Start: 04-19-2023 [facility] Within the past 12 months we worried whether our food would run out before we got money to buy more. Never [facility] Start: 07-29-2023 Tobacco Comment Uses [employer] devices. [employer] NEGATED: Highlighted rowStart: [place] History of tobacco use Passive smoker [facility] Functional Status Date Assessment Result Facility 12-06-2022 Functional Status N/A [facility] Clinical Notes 12-10-2020 to [...] females Have you been seen here at [facility] in a previous ?no Recent ER visits or hospitalizations? No Bring blood sugar log or meter with you today? (Please bring them with you for every visit at [facility]) n/a Traveled outside the country in [...] was 45 minutes. 24 minutes were direct ryds-ye-pned for counseling and coordination of care during visits itself. An additional 8 minutes or for same day preparation to see the patient. Another 13 minutes were needed to prepare visit report or otherwise complete encounter Thank you for sending this patient. Dana Mcdonough MD Maternal Medicine Professor, [facility] [phone] Office [phone] Personal Cell Phone Office Note: Type 2 [...] with breakfast. metroNIDAZOLE (FLAGYL) 500 mg tablet [id number] acid ( 19) 29 mg iron- 1 [...] become candidates for treatment. ACOG and the Citizen Of [place] psychiatric association advocate treatment in patients with [...] growth disorder. Smoking cessation recommended. Both the [place] and the [facility] of [facility] have excellent free stop smoking programs that are accessible through [facility] web sites. If desired by patient, [...] to the patient's reported primary care provider. Accounts Payable Assistant gave T1dm & T2dm dm handout, twin hand out and, genetic handout, and, activity in handout to patient. Patient understood that its good reading material if she has questions. documented in this encounter [facility] 07-24-2023 Miscellaneous Notes Called to schedule Diabetic Ed, patient declined to schedule.she states is seeing another Dr for this and that Dr Asher is aware. documented in this encounter [facility] 07-24-2023 Telephone encounter Note Called to schedule Diabetic Ed, patient declined to schedule.she states is seeing another Dr for this and that Dr Asher is aware. [facility] 07-15-2023 Miscellaneous Notes Summary: MFM Missed Diabetes Education Appointment Called. No answer. Message left regarding missing Diabetes Education appointment; noted was also scheduled to see Gaby CROUCH and Carmen Cheung (Nutrition Education). Requested to call [phone] Option #3 to reschedule. documented in this encounter [facility] 07-15-2023 Telephone encounter Note Summary: MFM Missed Diabetes Education Appointment Called. No answer. Message left regarding missing Diabetes Education appointment; noted was also scheduled to see Gaby CROUCH and Carmen Cheung (Nutrition Education). Requested to call [phone] Option #3 to reschedule. [facility] 12-06-2022 Hospital Discharg e instructions Patient Education [...] services (911 in the [place] Call the [facility] and human services helpline (211 in the [place] Call or text a suicide hotline to speak with a trained counselor. The following suicide hotlines are available in the [place]: ?6-727-764-TALK ( or 009 in the [place] ?6-290-NXOIHBY ( ). ?Text 947802. This is the Crisis Text Line in the [place] ? . This is a hotline for [place] speakers. ? . This is a hotline for TTY users. ?8-143-6-U-YASHIRA ( ). This is a hotline for lesbian, degladillo, bisexual, transgender, or questioning youth. ?For a list of hotlines in [place], visit suicide.org/hotlines/internation al/xrfkdl-iuvicul-nkxdguxw.html Contact a crisis center or a local [...] list of crisis centers in [place], visit: suicideprevention.oh How to help yourself feel better Promise [...] to anyone or being with other people. ?Niao-py-qhxm conversation is best to help them understand [...] physical and a mental health checkup. Take hwaf-oop-flyuhue and prescription medicines only as told by [...] more information National Suicide Prevention Lifeline: www.suicidepreventionlifeline.or [employer] Hopeline: www.hopeline.Alorum Citizen Of [place] Foundation for Suicide Prevention: www.afsp.org The Yashira Project (for lesbian, delgadillo, bisexual, transgender, or questioning youth): www.thetrevorproject.org National Hughes of Mental Health: www.nimh.nih.gov/health/topics/s uicide-prevention Suicide Prevention Resources: afsp.org/gqwbyhn-ulpuiygyky-uglk urces Contact a health care provider if: [...] provider. Document Revised: 11/15/2021 Document Reviewed: 08/30/2021 [employer] Patient Education 2022 [employer]. Follow Up Care 12/06/2022 13:21:39 With:[facility] Address:Unknown When:12/09/2022 16:28:40 Comments:Follow safety plan. Return to the emergency department with any worsening symptoms. With:GAYE JOSUE Address: [address] [facility] (1) When:12/09/2022 16:28:22 Comments:Call the office [...] Repeat liver function testing in 1 month. [facility] 12-06-2022 Evaluation + Plan note Extrac rayray from: Title:ED Note Author:Graham Choe DO Date: Situational stress (F43.9: R eaction to severe stress, unspecified) Orders: Automated Diff CBC w/ Auto Diff Comprehensive Metabolic Panel Drug Screen Urine ECG 12 Lead Adult eGFR Ethanol Level U Beta Hcg Qual [facility]07-28-2022 History of Present illness Narrative* Edelmira Jacobs RN - 11/29/2021 2:40 PM EDT Home med list reviewed with patient. documented in this encounterBANNER [facility]om[facility] Phone: 1(880) 205-333408-08-2021 History of Present illness Narrative* Perla Cunningham RN - 12/10/2020 8:28 PM EDT Discharge instructions given. Pt sent home with 1 zofran. 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 All questions answered. [facility]: evaluation note* Diagnosis Symptoms of dehydration- Primary Nausea vomiting and diarrhea Nausea with vomiting documented in this encounter [employer] Phone: evaluation note* Diagnosis Threatened miscarriage in early - Primary Threatened , unspecified as to episode of care documented in this encounter [employer] Phone: evaluation note* Diagnosis Depression during in first trimester- Primary Dehydration documented in this encounter [employer] Phone: evaluation note* Diagnosis COVID-19 virus infection- Primary Second trimester documented in this encounter [employer] Phone: evallwegbn note* Diagnosis Hordeolum externum of right lower eyelid- Primary Hordeolum externum documented in this encounter [facility] Phone: evaluation note* Diagnosis Acute midline low back pain without sciatica- Primary documented in this encounter [facility] Phone: evaluation note* Diagnosis Nausea and vomiting, unspecified vomiting type- Primary Intractable headache, unspecified chronicity pattern, unspecified headache type documented in this encounter [facility] Phone: evaluation note* Diagnosis Acute cystitis without hematuria- Primary Acute cystitis Vaginal yeast infection Candidiasis of vulva and vagina documented in this encounter [facility] NetworkEvaluation note* Diagnosis Type 2 diabetes mellitus affecting in second trimester, antepartum- Primary Twin , dichorionic/diamniotic, second trimester Bipolar disease during in second trimester ([facility]) [facility] Diagnosis Type 2 diabetes mellitus affecting in second trimester, antepartum- Primary Twin , dichorionic/diamniotic, second trimester Obesity affecting in second trimester, unspecified obesity type Bipolar disease during in second trimester ([facility]) Post traumatic stress disorder Posttraumatic stress disorder Tobacco smoking affecting in second trimester [facility] N[facility]ative No data available for this section [facility]* Attachments The following attachments cannot be sent through Care Everywhere. * Nausea and Vomiting (Barbadian) * Diarrhea (Barbadian) * Oral Rehydration (Barbadian) [facility]: Hospital Discharge instructions* Attachments The following attachments cannot be sent through Care Everywhere. * Miscarriage: Threatened (Barbadian) [facility]charge [facility]* Attachments The following attachments cannot be sent through Care Everywhere. * Dehydration (Barbadian) [facility]: [facility] Discharge [facility]* Attachments The following attachments cannot be sent through Care Everywhere. * Coronavirus Disease (COVID-19): General Info (Barbadian) [facility]: [facility] Discharge instructions* Attachments The following attachments cannot be sent through Care Everywhere. * Styes and Chalazia (Barbadian) documented in [facility] Phone: Hospital Discharge instructions* Attachments The following attachments cannot be sent through Care Everywhere. * Back Pain (Barbadian) * Back: Stretches: Exercises (Barbadian) documented in this [facility] Phone: Hospital Discharge instructions* Attachments The following attachments cannot be sent through Care Everywhere. * Headache (Barbadian) documented in this [facility] Phone: Hospital Discharge instructions* Attachments The following attachments cannot be sent through Care Everywhere. * Vaginal Yeast Infection (Barbadian) documented in this [facility]ructionsNot on file documented in this [facility] SystemInstructionsNot on file documented in this [facility] SystemInstructionsNot on file documented in this [facility]ProDec[facility] SystemInstructionsNot on file documented in this [facility]ProBl[facility] SystemProgress note No data available for this section [facility] Summary Purpose Family History No Family [...] FoundDocuments on File Type Date Recorded Patient Varnisher Apprentice Expl anation Advance Directives and Living Will Power of Sustainability Communicator Documents on File Type Date Recorded Patient Varnisher Apprentice Expl anation ACP-Advance Directive ACP-Power of Sustainability Communicator Documents on File Type Date Recorded Patient Varnisher Apprentice Expl anation Advance Directives and Livin g [...] be sent through Care Everywhere. * Sinusitis (Barbadian) * Sinus Rinse (Barbadian) * Bronchitis (Barbadian) documented in this encounter* Attachments The following attachments cannot be sent through Care Everywhere. * Smoking: Stopping (Barbadian) * Bronchitis (Barbadian) * Coronavirus Disease (COVID-19): General Info (Barbadian) documented in this encounter* Attachments The following attachments cannot be sent through Care Everywhere. * Bronchitis (Barbadian) documented in this encounter Assessments Diagnosis Bronchitis- [...] trimester Bipolar disease during in second trimester ([facility]) Procedures MFM with or without consult Dana Mcdonough MD [address] [place] [address] [facility] Maternal Med [address] [place] [address] Referral ID Status Reason Start Date Expiration Date V isits Requested Visits Authorized [id number] Pending Review 07/29/2023 07/28/2024 1 1 Additional Source Comments INFORMATION SOURCE (unrecogn ized section and content) DATE CREATED AUTHOR 10/29/2017 [facility] DATE CREATED AUTHOR AUTHOR'S ORGANIZ ATION 11/26/2017 [facility] DATE CREATED AUTHOR AUTHOR'S ORGANIZ ATION 01/04/2020 [facility] DATE CREATED AUTHOR AUTHOR'S ORGANIZ ATION 05/26/2020 [facility] DATE CREATED AUTHOR AUTHOR'S ORGANIZ ATION 08/07/2020 [facility] DATE CREATED AUTHOR AUTHOR'S ORGANIZ ATION 04/08/2021 [facility] DATE CREATED AUTHOR AUTHOR'S ORGANIZ ATION 07/14/2021 [facility] DATE CREATED AUTHOR AUTHOR'S ORGANIZ ATION 04/27/2022 [facility] DATE CREATED AUTHOR AUTHOR'S ORGANIZ ATION 12/07/2022 Caesar Hilliard [facility] DATE CREATED AUTHOR AUTHOR'S ORGANIZ ATION 10/10/2023 [facility] DATE CREATED AUTHOR AUTHOR'S ORGANIZ ATION 10/19/2023 [facility] DATE CREATED AUTHOR AUTHOR'S ORGANIZ ATION 10/29/2023 [facility] DATE CREATED AUTHOR AUTHOR'S ORGANIZ ATION 11/22/2023 [facility] DATE CREATED AUTHOR AUTHOR'S ORGANIZ ATION 11/24/2023 [facility] Reason for Visit (unrecogniz ed section [...] dose 1915 (Given - Provid er: Ricci Clacny RN) ondansetron (ZOFRAN-ODT) disintegrating tablet 4 mg (COMPLETED) 4 mg, Oral, ONCE, On 12/10/20 at 2015, For 1 dose, Send home with pt 2021 (Given - Provid er: Perla Cunningham RN - Comment: Sent home with patient) Scheduled Medication Order 04/10/2021 04/11/2021 04/12/2021 0.9 % sodium chloride bolus (COMPLETED) 1,000 mL (11 mL/kg), IntraVENous, at 1,000 mL/hr, Administer over 1 Hours, ONCE, On [place] 04/12/21 at 1830, For 1 dose 1825 [...] 30 mg, IntraVENous, ONCE, 1 dose, On [place] 06/16/22 at 0200, Do not administer for more than 5 days. 0225 (Given - Provid er: Deloris Pinto RN) ondansetron (ZOFRAN) injection 4 mg (COMPLETED) 4 mg, IntraVENous, ONCE, 1 dose, On [place] 06/16/22 at 0200 022 (Given - Provid [...] Care Teams (unrecognized sec tion and content) Integrity Manager Relationship Specialty Start Date End Date Gaye Josue, ENROUTE CONTROLLER - PHARMACY TECH [address] [place] [address] PCP - General Family Nurse Practitioner 02/10/21 Integrity Manager Relationship Specialty Start Date End Date Gaye Josue APRN [facility] [address] [place] [address] PCP - General Family Nurse Practitioner 02/10/21 Integrity Manager Relationship Specialty Start Date End Date Gaye Josue APRN PHARMACY TECH [address] [place] [address] PCP - General Family Nurse Practitioner 02/10/21 Integrity Manager Relationship Specialty Start Date End Date Gaye Josue APRN PHARMACY TECH [address] [place] [address] PCP - General Family Nurse Practitioner 02/10/21 Integrity Manager Relationship Specialty Start Date End Date Jacobo Johnson DO [address] [place] [address] PCP - General Family Medicine 07/29/23 Integrity Manager Relationship Specialty Start Date End Date Jacobo Johnson DO [address] [place] [address] PCP - General Family Medicine 07/29/23 FOR [...] BE BASED ON THE PRIMARY CLINICAL RECORDS. [facility] provides no warranty or guarantee of the accuracy or completeness of information in this document.
--- NOTE | 2023-11-28 13:21 | US_ITS ---
[place] [id number] Patient Name: RIRI DEMPSEY MRN: [id number] date: 1995 Sex: F Assigned Patient Location: US Current Patient Location: [facility] Accession/Order Number: [id number] Exam Date: 11/28/2023 13:39 Report Date: 11/28/2023 15:59 At the request of: YANI CALIX Procedure: US OB BPP w non-stress EXAMINATION: US OB BPP w non-stress, US OB BPP w non-stress HISTORY:TWIN GESTATION IN THIRD TRIMESTER O30.003 COMPARISON: No relevant comparison available. TECHNIQUE: Ultrasound biophysical profile was performed in the radiology department. BREATHING MOVEMENTS: 2/2 GROSS BODY MOVEMENTS: 2/2 TONE: 2/2 QUALITATIVE AMNIOTIC FLUID VOLUME: 2/2 PRESENTATION: Cephalic/cephalic HEART RATE: 141 bpm/139 bpm AMNIOTIC FLUID VOLUME: Largest pocket 5.7 x 7.4 cm/4.2 x 7.7 cm GESTATIONAL AGE: 33 weeks 6 days US/US OB BPP w non-stress IMPRESSION: Total biophysical profile score: Baby A: 8 / Baby B: 8 Electronically authenticated by: MARY CRAFT Date: 11/28/2023 15:59
--- NOTE | 2023-11-28 13:22 | US_ITS ---
[address] [address] Patient Name: RIRI DEMPSEY MRN: [id number] date: 1995 Sex: F Assigned Patient Location: US Current Patient Location: [facility] Accession/Order Number: [id number] Exam Date: 11/28/2023 13:39 Report Date: 11/28/2023 15:59 At the request of: YANI CALIX Procedure: US OB BPP w non-stress EXAMINATION: US OB BPP w non-stress, US OB BPP w non-stress HISTORY:TWIN GESTATION IN THIRD TRIMESTER O30.003 COMPARISON: No relevant comparison available. TECHNIQUE: Ultrasound biophysical profile was performed in the radiology department. BREATHING MOVEMENTS: 2/2 GROSS BODY MOVEMENTS: 2/2 TONE: 2/2 QUALITATIVE AMNIOTIC FLUID VOLUME: 2/2 PRESENTATION: Cephalic/cephalic HEART RATE: 141 bpm/139 bpm AMNIOTIC FLUID VOLUME: Largest pocket 5.7 x 7.4 cm/4.2 x 7.7 cm GESTATIONAL AGE: 33 weeks 6 days US/US OB BPP w non-stress IMPRESSION: Total biophysical profile score: Baby A: 8 / Baby B: 8 Electronically authenticated by: MARY CRAFT Date: 11/28/2023 15:59
--- NOTE | 2023-11-28 13:23 | US_ITS ---
[place] [id number] Patient Name: RIRI DEMPSEY MRN: [id number] date: 1995 Sex: F Assigned Patient Location: Current Patient Location: Accession/Order Number: [id number] Exam Date: 11/28/2023 13:39 Report Date: 11/28/2023 16:19 At the request of: YANI CALIX Procedure: US OB umbilical artery EXAMINATION: US OB umbilical artery, US OB umbilical artery HISTORY: TWIN GESTATION IN THIRD TRIMESTER O30.003 COMPARISON: No relevant comparison available. TECHNIQUE: Duplex Doppler evaluation of the umbilical arteries. FINDINGS: HEART RATE: 141 bpm / 139 bpm UMBILICAL ARTERIES: 2 / 2 GESTATIONAL AGE: 33 weeks 6 days WAVEFORM: Normal upstroke. No notching. Forward flow in diastole. PEAK SYSTOLIC VELOCITY: 86 cm/s / 127 cm/s END DIASTOLIC VELOCITY: 36 cm/s / 65 cm/s SYST/DIAST RATIO (S:D): 2.4 / 2.0 RESISTIVE INDEX: 0.73 / 0.47 US/US OB umbilical artery IMPRESSION: Umbilical Artery: 1. Class 0 = Normal umbilical artery blood velocity for baby 1 and baby 2. Electronically authenticated by: MARY CRAFT Date: 11/28/2023 16:19
--- NOTE | 2023-11-28 13:24 | US_ITS ---
[place] [id number] Patient Name: RIRI DEMPSEY MRN: [id number] date: 1995 Sex: F Assigned Patient Location: Current Patient Location: Accession/Order Number: [id number] Exam Date: 11/28/2023 13:39 Report Date: 11/28/2023 16:19 At the request of: YANI CALIX Procedure: US OB umbilical artery EXAMINATION: US OB umbilical artery, US OB umbilical artery HISTORY: TWIN GESTATION IN THIRD TRIMESTER O30.003 COMPARISON: No relevant comparison available. TECHNIQUE: Duplex Doppler evaluation of the umbilical arteries. FINDINGS: HEART RATE: 141 bpm / 139 bpm UMBILICAL ARTERIES: 2 / 2 GESTATIONAL AGE: 33 weeks 6 days WAVEFORM: Normal upstroke. No notching. Forward flow in diastole. PEAK SYSTOLIC VELOCITY: 86 cm/s / 127 cm/s END DIASTOLIC VELOCITY: 36 cm/s / 65 cm/s SYST/DIAST RATIO (S:D): 2.4 / 2.0 RESISTIVE INDEX: 0.73 / 0.47 US/US OB umbilical artery IMPRESSION: Umbilical Artery: 1. Class 0 = Normal umbilical artery blood velocity for baby 1 and baby 2. Electronically authenticated by: MARY CRAFT Date: 11/28/2023 16:19
== END 2023-11-28 15:15 | disposition home or self-care (01) ==
LOC: US 07:36 → FBC 13:16
PROVIDERS: PCP Family Medicine; Visit Provider Obstetrics & Gynecology
DX: O43.813 Placental infarction, third trimester (principal); Z3A.33 33 weeks gestation of pregnancy
CPT/HCPCS: 76818; 76820

== ENCOUNTER 2023-12-02 07:32 | Outpatient (OUT) | payer OTHER, SELFPAY ==
--- OUTSIDE RECORDS SUMMARY | 2023-12-02 07:38 | XMS_ITS | CCD ---
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 Name Role Phone GAYE JOSUE Unavailable Unavailable GAYE JOSUE Unavailable Unavailable Unavailable Unavailable Unavailable Honey, [place] Maryjo Unavailable Unavailable Honey, [place] Maryjo Unavailable Unavailable Unavailable Primary Care Provider UnavailJuanito Rodriges Primary Care Provider JUANITO HERNANDEZ Attending U navailable HUY, MONICATH ELIZAIAChristin Primary Care U navailable Celengjaylen, Vijeth Rathnarajaiah Primary Care Prov ider Radha Carney Unavailable Perla Rm Primary Care Provider [phone] HUY, JAMESJETH RATHNARAJAIAH Primary Care U navailable [...] Referring Unavailable LIAT, GAYE Primary Care Unavailable [facility], Gaye Primary [facility] Provider [facility] - [facility], Gaye Primary Care Provider MISC, DR [...] Unavailable YOGI, LOY R Referring Unavailable JACOBO JONHSON Primary Care Unavailable Allergies Allergy Classification Reported Allergen(s) Allergy Type Date of Onset Reaction(s) Facility (1 source) No Known Medication Allergies; Translations: [No Known Medication Allergies] Propensity to adverse reactions (disorder) [facility] Repository Medications Current Medications Medication [...] days 10 tablet 0 10/22/2019 10/27/2019 Active gl876-vsbm-exocr acid ( 19) 29 mg iron- 1 mg tablet,chewable (2 sources) cd174-rbtg-uguja acid ( 19) 29 mg iron- 1 [...] 0 Active take 2 tablets by mo [facility] twice daily as needed clonazePAM (KLONOPIN) 1 [...] mark th every four hours as needed Xomruxwffngcsue-IIMG-LP (DAYQUIL PO) Don e 1 tablet by [...] 11-03-2023 Glucose [Mass/Vol] 127 mg/dL High 65-99 [facility] Glucose [Mass/Vol] 172 mg/dL High 65-99 [facility] Glucose Glucometer (BldC) [M ass/Vol]on 11-02-2023 Glucose [Mass/Vol] 162 mg/dL High 65-99 [facility] Glucose [Mass/Vol] 160 mg/dL High 65-99 [facility] Glucose [Mass/Vol] 157 mg/dL High 65-99 [facility] Glucose [Mass/Vol] 189 mg/dL High 65- [facility] Glucose [Mass/Vol] 137 mg/dL High 65-99 [facility] VAGINITIS PANEL PCRon 2023 VAGINITIS [...] clinical presentation to determine patient diagnosis. Normal [facility] Comment on above: Performed By: #### C BCA, CMP, THYR, HA1C, 12260-0 #### [facility] ([id number]) [address] [place] [address], [address] [place] [address] Glucose Glucometer (BldC) [M ass/Vol]on 11-01-2023 Glucose [Mass/Vol] 137 mg/dL High 65-99 [facility] Glucose [Mass/Vol] 138 mg/dL High 65- [facility] Glucose [Mass/Vol] 147 mg/dL High 65-99 [facility] Glucose [Mass/Vol] 172 mg/dL High 65-99 [facility] Glucose [Mass/Vol] 98 mg/dL Normal 65-99 [facility] CBC AND AUTO DIFFon 10-31-19 24 ABSOLUTE BASOPHIL 0.0 X10E9/L Normal 0.0-0.2 [facility] Comment on above: Performed By: #### C BCA, CMP, THYR, HA1C, 03335-5 #### [facility] ([id number]) [address], [address] [place] [address] ABSOLUTE NEUTROPHIL 5.2 X10E9/L Normal 1.5-6.6 [facility] Comment on above: Performed By: #### C BCA, CMP, THYR, HA1C, 71467-9 #### [facility] ([id number]) [address], [address] [place] [address] Basophils/100 WBC (Bld) 0.3 % Normal [facility] Comment on above: Performed By: #### C BCA, CMP, THYR, HA1C, 78534-6 #### [facility] ([id number]) [address], [address] [place] [address] Eosinophils (Bld) [#/Vol] 0.0 10*3/uL Normal 0.0-0.4 [facility] Comment on above: Performed By: #### C BCA, CMP, THYR, HA1C, 44252-8 #### [facility] ([id number]) [address], [address] [place] [address] Eosinophils/100 WBC (Bld) 0.3 % Normal [facility] Comment on above: Performed By: #### C BCA, CMP, THYR, HA1C, 92795-1 #### [facility] ([id number]) [address], [address] [place] [address] Erythrocyte distribution width (RBC) [Ratio] 13.5 % Normal 11.5-15.0 [facility] Comment on above: Performed By: #### C BCA, CMP, THYR, HA1C, 18718-3 #### [facility] ([id number]) [address] [address] [place] [address] Hematocrit (Bld) [Volume fraction] 30.4 % Low 35-47 [facility] Comment on above: Performed By: #### C BCA, CMP, THYR, HA1C, 91719-5 #### [facility] ([id number]) [address] [address] [place] [address] Hemoglobin (Bld) [Mass/Vol] 10.2 g/dL Low 11.7-15.5 [facility] Comment on above: Performed By: #### C BCA, CMP, THYR, HA1C, 53742-0 #### [facility] ([id number]) [address] [address] [place] [address] Lymphocytes (Bld) [#/Vol] 1.5 10*3/uL Normal 1.0-3.5 [facility] Comment on above: Performed By: #### C BCA, CMP, THYR, HA1C, 37547-0 #### [facility] ([id number]) [address] [address] Lymphocytes/100 WBC (Bld) 20.8 % Normal [facility] Comment on above: Performed By: #### C BCA, CMP, THYR, HA1C, 14311-3 #### [facility] ([id number]) [address] [address] [place] [address] MCH (RBC) [Entitic mass] 26.6 pg Low 27-34 [facility] Comment on above: Performed By: #### C BCA, CMP, THYR, HA1C, 72485-1 #### [facility] ([id number]) [address] [address] [place] [address] MCHC (RBC) [Mass/Vol] 33.4 g/dL Normal 32-36 [facility] Comment on above: Performed By: #### C BCA, CMP, THYR, HA1C, 69098-5 #### [facility] ([id number]) [address], [address] [place] [address] MCV (RBC) [Entitic vol] 80 fL Normal 80-100 [facility] Comment on above: Performed By: #### C BCA, CMP, THYR, HA1C, 40604-7 #### [facility] ([id number]) [address], [facility] [address] [place] [address] Monocytes (Bld) [#/Vol] 0.4 10*3/uL Normal 0-0.9 [facility] Comment on above: Performed By: #### C BCA, CMP, THYR, HA1C, 82636-9 #### [facility] ([id number]) [address], [address] [place] [address] Monocytes/100 WBC (Bld) 5.5 % Normal [facility] Comment on above: Performed By: #### C BCA, CMP, THYR, HA1C, 32633-0 #### [facility] ([id number]) [address], [address] [place] [address] Neutrophils/100 WBC (Bld) 73.1 % Normal [facility] Comment on above: Performed By: #### C BCA, CMP, THYR, HA1C, 70251-0 #### [facility] ([id number]) [address], [address] [place] [address] Platelet mean volume (Bld) [Entitic vol] 10.1 fL Normal 7-12 [facility] Comment on above: Performed By: #### C BCA, CMP, THYR, HA1C, 11748-5 #### [facility] ([id number]) [address], [address] [place] [address] Platelets (Bld) [#/Vol] 184 10*3/uL Normal 150-450 [facility] Comment on above: Performed By: #### C BCA, CMP, THYR, HA1C, 65878-6 #### [facility] ([id number]) [address], [address] [place] [address] RBC COUNT 3.83 X10E12/L Normal 3.80-5.20 [facility] Comment on above: Performed By: #### C BCA, CMP, THYR, HA1C, 58108-4 #### [facility] ([id number]) [address], [address] [address] WBC (Bld) [#/Vol] 7.1 10*3/uL Normal 4.0-11.0 [facility] Comment on above: Performed By: #### C BCA, CMP, THYR, HA1C, 19504-2 #### [facility] ([id number]) [address], [address] [place] [address] CHLAMYDIA/GC BY PCRon 2023 CHLAMYDIA/GC BY PCR [...] are dependent on adequate specimen collection. Normal [facility] Comment on above: Performed By: #### C BCA, CMP, THYR, HA1C, 82161-0 #### [facility] ([id number]) [address], [address] [place] [address] COMPREHENSIVE METABOLIC PANE Nick 10-31-2023 Albumin [Mass/Vol] 3.0 g/dL Low 3.2-5.3 [facility] Comment on above: Performed By: #### C BCA, CMP, THYR, HA1C, 75002-8 #### [facility] ([id number]) [address], [address] [place] [address] ALP [Catalytic activity/Vol] 109 U/L Normal 39-130 [facility] Comment on above: Performed By: #### C BCA, CMP, THYR, HA1C, 43841-0 #### [facility] ([id number]) [address], [address] [place] [address] ALT [Catalytic activity/Vol] 13 U/L Normal 0-31 [facility] Comment on above: Performed By: #### C BCA, CMP, THYR, HA1C, 68830-1 #### [facility] ([id number]) [address], [address] [place] [address] Anion gap [Moles/Vol] 10 mmol/L Normal 5-15 [facility] Comment on above: Performed By: #### C BCA, CMP, THYR, HA1C, 90036-6 #### [facility] ([id number]) [address], [address] [place] [address] AST [Catalytic activity/Vol] 19 U/L Normal 0-41 [facility] Comment on above: Performed By: #### C BCA, CMP, THYR, HA1C, 48206-8 #### [facility] ([id number]) [address], [address] [place] [address] Bilirubin [Mass/Vol] 0.4 mg/dL Normal 0.3-1.2 [facility] Comment on above: Performed By: #### C BCA, CMP, THYR, HA1C, 85726-2 #### [facility] ([id number]) [address], [address] [place] [address] Calcium [Mass/Vol] 8.4 mg/dL Low 8.5-10.5 [facility] Comment on above: Performed By: #### C BCA, CMP, THYR, HA1C, 55770-4 #### [facility] ([id number]) [address], [address] [place] [address] Chloride [Moles/Vol] 106 mmol/L Normal 98-109 [facility] Comment on above: Performed By: #### C BCA, CMP, THYR, HA1C, 08843-1 #### [facility] ([id number]) [address], [address] [place] [address] CO2 [Moles/Vol] 20 mmol/L Low 22-32 [facility] Comment on above: Performed By: #### C BCA, CMP, THYR, HA1C, 47645-7 #### [facility] ([id number]) [address] [address] [place] [address] Creatinine [Mass/Vol] 0.53 mg/dL Normal 0.40-1.00 [facility] Comment on above: Result Comment: METH OD TRACEABLE TO IDMS STANDARD Performed By: #### C BCA, CMP, THYR, HA1C, 63031-1 #### [facility] ([id number]) [address] [address] [place] [address] eGFR (CKD-EPI) NON-RACE DEPENDENT >90 Normal >59 [facility] Comment on above: Result Comment: Reported eGFR is based on the CKD-EPI 2020 equation that does not use a race coefficient. Performed By: #### C BCA, CMP, THYR, HA1C, 75099-5 #### [facility] ([id number]) [address] [address] [place] [address] Glucose [Mass/Vol] 134 mg/dL High 65-99 [facility] Comment on above: Performed By: #### C BCA, CMP, THYR, HA1C, 54972-6 #### [facility] ([id number]) [address] [address] [place] [address] Potassium [Moles/Vol] 3.7 mmol/L Normal 3.5-5.0 [facility] Comment on above: Performed By: #### C BCA, CMP, THYR, HA1C, 51544-0 #### [facility] ([id number]) [address], [address] [place] [address] Protein [Mass/Vol] 5.9 g/dL Low 6.0-8.0 [facility] Comment on above: Performed By: #### C BCA, CMP, THYR, HA1C, 20475-8 #### [facility] ([id number]) [address], [address] [place] [address] Sodium [Moles/Vol] 136 mmol/L Normal 134-146 [facility] Comment on above: Performed By: #### C BCA, CMP, THYR, HA1C, 32397-7 #### [facility] ([id number]) [address], [address] [place] [address] Urea nitrogen [Mass/Vol] 7 mg/dL Normal 5-23 [facility] Comment on above: Performed By: #### C BCA, CMP, THYR, HA1C, 12955-8 #### [facility] ([id number]) [address], [address] [place] [address] DRUG SCREEN, URINEon 024 AMPHETAMINE/METHAMP Negative Normal NEG [facility] Comment on above: Result Comment: AMPH /METH screening cut off = 1000 ng/mL Performed By: #### D STAPLES #### [facility] ([id number]) [address], [address] [place] [address] BARBITURATES Negative Normal NEG [facility] Comment on above: Result Comment: Vandana iturates screening cut off value = 200 ng/mL Performed By: #### D STAPLES #### [facility] ([id number]) [address], [address] [place] [address] BENZODIAZEPINES Positive Abnormal NEG [facility] Comment on above: Result Comment: Conf irmation available upon request. Benzodiazepines screening cut off value = 200 ng/mL Performed By: #### D STAPLES #### [facility] ([id number]) [address], [address] [place] [address] CANNABINOIDS Positive Abnormal NEG [facility] Comment on above: Result Comment: Conf irmation available upon request. Cannabinoids/THC screening cut off value = 50 ng/mL Performed By: #### D STAPLES #### [facility] ([id number]) [address], [address] [place] [address] COCAINE METABOLITE Negative Normal NEG [facility] Comment on above: Result Comment: Coca ine screening cut off value = 300 ng/mL Performed By: #### D STAPLES #### [facility] ([id number]) [address], [address] [place] [address] ECSTASY Negative Normal NEG [facility] Comment on above: Result Comment: Ecst asy screening cut off value = 500 ng/mL This report is intended for use in clinical monitoring or management of patients. Performed By: #### D STAPLES #### [facility] ([id number]) [address], [address] [place] [address] METHADONE Negative Normal NEG [facility] Comment on above: Result Comment: Meth adone screening cut off value = 300 ng/mL. Performed By: #### D STAPLES #### [facility] ([id number]) [address], [address] [place] [address] OPIATES Negative Normal NEG [facility] Comment on above: Result Comment: Opia satya screening cut off value = 300 ng/mL NOTE: This test is used for the detection of codeine, hydrocodone (>1000 ng/mL), morphine and hydromorphone (>900 ng/mL) in urine. Performed By: #### D STAPLES #### [facility] ([id number]) [address], [address] [place] [address] OXYCODONE Negative Normal NEG [facility] Comment on above: Result Comment: Oxyc odone screening cut off value = 300 ng/mL NOTE: This test is used for the detection of oxycodone and oxymorphone in urine. Performed By: #### D STAPLES #### [facility] ([id number]) [address], [address] [place] [address] PHENCYCLIDINE Negative Normal NEG [facility] Comment on above: Result Comment: Phen cyclidine screening cut off value = 25 ng/mL Performed By: #### D STAPLES #### [facility] ([id number]) [address], [address] [address] Glucose Glucometer (BldC) [M ass/Vol]on 10-31-2023 Glucose [Mass/Vol] 130 mg/dL High 65-99 [facility] HGB A1C (GLYCO-HGB)on 2023 Glucose [Mass/Vol] 148 mg/dL Normal [facility] Comment on above: Performed By: #### C BCA, CMP, THYR, HA1C, 24031-8 #### [facility] ([id number]) [address], [address] [address] HbA1c (Bld) [Mass fraction] 6.8 % High 4.4-5.6 [facility] Comment on above: Result Comment: NOTE ADA Guidelines Result HgbA1c Normal : less than 5.7 % Prediabetes : 5.7 % to 6.4 % Diabetes : > 6.4 % Use with caution in patients with abnormal hemoglobin variants as the half-life of red blood cells and in vivo glycation rates are affected. Performed By: #### C BCA, CMP, THYR, HA1C, 43219-9 #### [facility] ([id number]) [address], [address] [place] [address] STREP B PCR VAG/RECTon 10-30 S. agalactiae Org specific cx Ql (Vag+Rectum) Negative Normal NEG [facility] Comment on above: Performed By: #### 7 2607-5 #### [facility] ([id number]) [address] [facility], [address] [place] [address] T. pallidum IgG+IgM IA Ql (S )on 10-31-2023 Syphilis Total <0.2 Normal 0.0-0.8 [facility] Comment on above: Result Comment: NON REACTIVE No serologic evidence of infection to Treponema pallidum (syphilis). Repeat testing may be considered in patients with suspected acute or primary syphilis in 2 to 4 weeks. Performed By: #### C BCA, CMP, THYR, HA1C, 83897-4 #### [facility] ([id number]) [address] [facility], [address] [place] [address] THYROID PROFILEon 10-31-2023 Free T4 [Mass/Vol] 0.75 ng/dL Normal 0.61-1.60 [facility] Comment on above: Performed By: #### C BCA, CMP, THYR, HA1C, 89288-1 #### [facility] ([id number]) [address] [facility], [address] [place] [address] TSH 2.80 uIU/mL Normal 0.49-4.67 [facility] Comment on above: Performed By: #### C BCA, CMP, THYR, HA1C, 75748-0 #### [facility] ([id number]) [address] [facility], [address] [place] [address] URINALYSISon 10-31-2023 Bilirubin Ql (U) Negative Normal NEG [facility] Comment on above: Performed By: #### U A #### [facility] ([id number]) [address] [facility] [facility], [address] [place] [address] BLOOD/HGB Negative Normal NEG [facility] Comment on above: Performed By: #### U A #### [facility] ([id number]) [address], [address] [place] [address] Color (U) YELLOW Normal YELLOW [facility] Comment on above: Performed By: #### U A #### [facility] ([id number]) [address] [place] [address] Glucose Ql (U) 50 mg/dL Abnormal NEG [facility] Comment on above: Performed By: #### U A #### [facility] ([id number]) [address], [address] [place] [address] Ketones Ql (U) 10 mg/dL Abnormal NEG [facility] Comment on above: Performed By: #### U A #### [facility] ([id number]) [address], [address] [place] [address] Leukocyte esterase Test strip Ql (U) Large Abnormal NEG [facility] Comment on above: Performed By: #### U A #### [facility] ([id number]) [address], [address] [place] [address] MUCOUS PRESENT Abnormal NONE [facility] Comment on above: Performed By: #### U A #### [facility] ([id number]) [address], [address] [place] [address] Nitrite Ql (U) Negative Normal NEG [facility] Comment on above: Performed By: #### U A #### [facility] ([id number]) [address], [address] [place] [address] pH (U) 6.5 [pH] Normal 5.0-8.5 [facility] Comment on above: Performed By: #### U A #### [facility] ([id number]) [address], [address] [place] [address] Protein Ql (U) 70 mg/dL Abnormal NEG [facility] Comment on above: Performed By: #### U A #### [facility] ([id number]) [address] [address] R.B.CELLS 2 /hpf Normal 0-5 [facility] Comment on above: Performed By: #### U A #### [facility] ([id number]) [address] [place] [address] Specific gravity (U) [Rel density] 1.039 High 1.003-1.035 [facility] Comment on above: Performed By: #### U A #### [facility] ([id number]) [address] [place] [address] SQUAMOUS EPITHELIUM 18 /hpf High 0-5 [facility] Comment on above: Performed By: #### U A #### [facility] ([id number]) [address] [place] [address] TURBIDITY HAZY Abnormal CLEAR [facility] Comment on above: Performed By: #### U A #### [facility] ([id number]) [address] [place] [address] Urobilinogen Qn (U) 4 {Sariah'U}/dL High <1.1 [facility] Comment on above: Performed By: #### U A #### [facility] ([id number]) [address] [place] [address] W.B.CELLS 36 /hpf High 0-5 [facility] Comment on above: Performed By: #### U A #### [facility] ([id number]) [address] [place] [address] URINE CULTUREon 10-31-2023 Bacteria identified Cx Nom (U) SPECIMEN NOTES URINE RECEIVED WITHOUT PRESERVATIVE CULTURE RESULTS 10-50,000 ORGANISMS/mL NORMAL UROGENITAL LEANA Normal [facility] Comment on above: Performed By: #### C BCA, CMP, THYR, HA, 93062-4 #### [facility] ([id number]) [address] [place] [address], [address] [place] [address] VAGINITIS PANEL PCRon 2023 VAGINITIS PANEL PCR [...] presentation to determine patient diagnosis. Normal [facility] Comment on above: Performed By: #### C BCA, CMP, [place], 48663-0 #### [facility] ([id number]) [address] [facility], [address] [place] [address] ED Prov Noteon 10-13-2023 ED Prov Note ED PROVIDER NOTE [facility] EMERGENCY DEPARTMENT NAME: Riri Dempsey AGE: 28 y.o. : 1995 VISIT DATE: 10/13/2023 CSN: [id number] PCP: Gaye Josue, SALES ACTIVITY MANAGER Chief Complaint Patient presents with Leg Pain [...] minutes she had diffuse abdominal tightness like [place] contractions she said. 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 They recommended that she come to emergency department. Her local [place] does not have BLACK TOP MACHINE OPERATOR services so she came here. She typically gets her OB care at [facility] by Dr. Loy Asher. Additionally she [...] (more content not included)... Normal [facility] URINALYSISon 10-13-2023 BACTERIA, URINE Few Abnormal None Seen [facility] Comment on above: Order Comment: Micro scopic examination is performed on all urinalysis samples and only positive findings are reported. The test for blood on the chemical analytic portion of urinalysis may also be positive due to hemoglobinuria and myoglobinuria and if red blood cells are present they are quantified by microscopic examination. Performed By: #### 4 6625 #### LAB [address] [place] [address] Diego Hamilton M.D. [id number] BILIRUBIN, URINE Positive Abnormal Negative [facility] Comment on above: Order Comment: Micro [...] pyridium. Performed By: #### 4 6625 #### [place] [address] Diego Hamilton M.D. [id number] BLOOD, URINE Negative Normal Negative [facility] Comment on above: Order Comment: Micro scopic examination is performed on all urinalysis samples and only positive findings are reported. The test for blood on the chemical analytic portion of urinalysis may also be positive due to hemoglobinuria and myoglobinuria and if red blood cells are present they are quantified by microscopic examination. Performed By: #### 4 6625 #### [place] [address] Diego Hamilton M.D. [id number] Clarity (U) Clear Normal Clear [facility] Comment on above: Order Comment: Micro scopic examination is performed on all urinalysis samples and only positive findings are reported. The test for blood on the chemical analytic portion of urinalysis may also be positive due to hemoglobinuria and myoglobinuria and if red blood cells are present they are quantified by microscopic examination. Performed By: #### 4 6625 #### [address] [place] [address] Diego Hamilton M.D. [id number] Color (U) Kay Abnormal Colorless, Yellow [facility] Comment on above: Order Comment: Micro scopic examination is performed on all urinalysis samples and only positive findings are reported. The test for blood on the chemical analytic portion of urinalysis may also be positive due to hemoglobinuria and myoglobinuria and if red blood cells are present they are quantified by microscopic examination. Performed By: #### 4 6625 #### [place] [address] Diego Hamilton M.D. [id number] Glucose Ql (U) Negative Normal [facility] Comment on above: Order Comment: Micro scopic examination is performed on all urinalysis samples and only positive findings are reported. The test for blood on the chemical analytic portion of urinalysis may also be positive due to hemoglobinuria and myoglobinuria and if red blood cells are present they are quantified by microscopic examination. Performed By: #### 4 6625 #### [place] [address] Diego Hamilton M.D. [id number] Ketones Ql (U) >=80 Abnormal Negative [facility] Comment on above: Order Comment: Micro scopic examination is performed on all urinalysis samples and only positive findings are reported. The test for blood on the chemical analytic portion of urinalysis may also be positive due to hemoglobinuria and myoglobinuria and if red blood cells are present they are quantified by microscopic examination. Performed By: #### 4 6625 #### [place] [address] Diego Hamilton M.D. [id number] Leukocyte esterase Test strip Ql (U) Small Abnormal Negative [facility] Comment on above: Order Comment: Micro scopic examination is performed on all urinalysis samples and only positive findings are reported. The test for blood on the chemical analytic portion of urinalysis may also be positive due to hemoglobinuria and myoglobinuria and if red blood cells are present they are quantified by microscopic examination. Performed By: #### 4 6625 #### [place] [address] Diego Hamilton M.D. [id number] NITRITE, URINE Negative Normal [facility] Comment on above: Order Comment: Micro scopic examination is performed on all urinalysis samples and only positive findings are reported. The test for blood on the chemical analytic portion of urinalysis may also be positive due to hemoglobinuria and myoglobinuria and if red blood cells are present they are quantified by microscopic examination. Performed By: #### 4 6625 #### [place] [address] Diego Hamilton M.D. [id number] pH (U) 6.5 [pH] Normal 5.0-7.0 [facility] Comment on above: Order Comment: Micro scopic examination is performed on all urinalysis samples and only positive findings are reported. The test for blood on the chemical analytic portion of urinalysis may also be positive due to hemoglobinuria and myoglobinuria and if red blood cells are present they are quantified by microscopic examination. Performed By: #### 4 6625 #### [place] [address] Diego Hamilton M.D. [id number] Protein (U) [Mass/Vol] 30 mg/dL Abnormal Negative [facility] Comment on above: Order Comment: Micro [...] compounds. Performed By: #### 4 6625 #### [place] [address] Diego Hamilton M.D. [id number] RBC LM.HPF (Urine sed) [#/Area] 2 /[HPF] Normal 0-3 [facility] Comment on above: Order Comment: Micro scopic examination is performed on all urinalysis samples and only positive findings are reported. The test for blood on the chemical analytic portion of urinalysis may also be positive due to hemoglobinuria and myoglobinuria and if red blood cells are present they are quantified by microscopic examination. Performed By: #### 4 6625 #### [place] [address] Diego Hamilton M.D. [id number] Specific gravity (U) [Rel density] >= High 1.005-1.025 [facility] Comment on above: Order Comment: Micro scopic examination is performed on all urinalysis samples and only positive findings are reported. The test for blood on the chemical analytic portion of urinalysis may also be positive due to hemoglobinuria and myoglobinuria and if red blood cells are present they are quantified by microscopic examination. Performed By: #### 4 6625 #### SH [address] [address] Diego Hamilton M.D. [id number] SQUAMOUS EPITHELIAL 7 /hpf High 0-4 [facility] Comment on above: Order Comment: Micro scopic examination is performed on all urinalysis samples and only positive findings are reported. The test for blood on the chemical analytic portion of urinalysis may also be positive due to hemoglobinuria and myoglobinuria and if red blood cells are present they are quantified by microscopic examination. Performed By: #### 4 6625 #### SH [address] [address] Diego Hamilton M.D. [id number] UROBILINOGEN, URINE <2.0 Normal <2.0 [facility] Comment on above: Order Comment: Micro scopic examination is performed on all urinalysis samples and only positive findings are reported. The test for blood on the chemical analytic portion of urinalysis may also be positive due to hemoglobinuria and myoglobinuria and if red blood cells are present they are quantified by microscopic examination. Performed By: #### 4 6625 #### [address] [address] Diego Hamilton M.D. [id number] WBC LM.HPF (Urine sed) [#/Area] 45 /[HPF] High 0-5 [facility] Comment on above: Order Comment: Micro scopic examination is performed on all urinalysis samples and only positive findings are reported. The test for blood on the chemical analytic portion of urinalysis may also be positive due to hemoglobinuria and myoglobinuria and if red blood cells are present they are quantified by microscopic examination. Performed By: #### 4 6625 #### [address] [address] Diego Hamilton M.D. [id number] URINE AEROBIC CULTUREon 10-03 URINE AEROBIC CULTURE URINE CULTURE No Growth (<1,000 CFU/mL) Normal [facility] Comment on above: Performed By: #### 4 4053 #### [facility] [address] [address] Hilton Fox M.D. [id number] Basic Metabolic Profon 10-08 Anion gap [Moles/Vol] 18 mmol/L High 9-17 [facility] Comment on above: Performed By: #### C DP, BMP #### [facility] [address] [place] [address] [employer]: Zayra Chapman MD BUN/CRE Ratio 18 Normal 9- [facility] Comment on above: Performed By: #### C DP, BMP #### [facility] [address] [place] [address] [employer]: Zayra Chapman MD Calcium [Mass/Vol] 8.7 mg/dL Normal 8.6-10.4 [facility] Comment on above: Performed By: #### C DP, BMP #### [facility] [address] [place] [address] [employer]: Zayra Chapman MD Chloride [Moles/Vol] 103 mmol/L Normal 98-107 [facility] Comment on above: Performed By: #### C DP, BMP #### [facility] [address] [place] [address] [employer]: Zayra Chapman MD CO2 [Moles/Vol] 15 mmol/L Low 20-31 [facility] Comment on above: Performed By: #### C DP, BMP #### [facility] [address] [place], [place] [id number] [employer]: Zayra Chapman MD Creatinine [Mass/Vol] 0.4 mg/dL Low 0.5-0.9 [facility] Comment on above: Performed By: #### C DP, BMP #### [facility] [address] [place], [place] [id number] [employer]: Zayra Chapman MD GFR/1.73 sq M.predicted among non-blacks MDRD (S/P/Bld) [Vol rate/Area] mL/min/{1.73_m2} Normal >60 [facility] Comment on above: Result Comment: These [...] Performed By: #### C DP, BMP #### [facility] [address] [place], [place] [id number] [employer]: Zayra Chapman MD Glucose [Mass/Vol] 143 mg/dL High 70-99 [facility] Comment on above: Performed By: #### C DP, BMP #### [facility] [address] [place], [place] [id number] [employer]: Zayra Chapman MD Potassium [Moles/Vol] 3.6 mmol/L Low 3.7-5.3 [facility] Comment on above: Performed By: #### C DP, BMP #### [facility] [address] [place], [place] [id number] [employer]: Zayra Chapman MD Sodium [Moles/Vol] 136 mmol/L Normal 135-144 [facility] Comment on above: Performed By: #### C DP, BMP #### [facility] [address] [place], [place] [id number] [employer]: Zayra Chapman MD Urea nitrogen [Mass/Vol] 7 mg/dL Normal 6-20 [facility] Comment on above: Performed By: #### C DP, BMP #### [facility] [address] [place] [address] [employer]: Zayra Chapman MD CBC with Diffon 10-09-2023 Abs. Basophil 0.04 k/uL Normal 0.00-0.20 [facility] Comment on above: Performed By: #### C DP, BMP #### [facility] [address] [place] [address] [employer]: Zayra Chapman MD Abs.Imm.Granulocyte 0.03 k/uL Normal 0.00-0.30 [facility] Comment on above: Performed By: #### C DP, BMP #### [facility] [address] [place] [address] [employer]: Zayra Chapman MD Abs.Neutrophil (Seg) 6.85 k/uL Normal 2.5-7.0 [facility] Comment on above: Performed By: #### C DP, BMP #### [facility] [address] [place] [address] [employer]: Zayra Chapman MD Basophils/100 WBC (Bld) 0 % Normal 0-2 M [facility] Comment on above: Performed By: #### C DP, BMP #### [facility] [address] [place] [id number] [employer]: Zayra Chapman MD Eosinophils (Bld) [#/Vol] 0.08 10*3/uL Normal 0.00-0.40 [facility] Comment on above: Performed By: #### C DP, BMP #### [facility] [address] [place] [id number] [employer]: Zayra Chapman MD Eosinophils/100 WBC (Bld) 1 % Normal 0-5 [facility] Comment on above: Performed By: #### C DP, BMP #### [facility] [address] [place] [address] [employer]: Zayra Chapman MD Erythrocyte distribution width (RBC) [Ratio] 13.1 % Normal 12.1-15.2 [facility] Comment on above: Performed By: #### C DP, BMP #### [facility] [address] [place] [address] [employer]: Zayra Chapman MD Hematocrit (Bld) [Volume fraction] 31.5 % Low 36.0-46.0 [facility] Comment on above: Performed By: #### C DP, BMP #### [facility] [address] [place] [address] [employer]: Zayra Chapman MD Hemoglobin (Bld) [Mass/Vol] 10.3 g/dL Low 12.0-16.0 [facility] Comment on above: Performed By: #### C DP, BMP #### [facility] [address] [place] [address] [employer]: Zayra Chapman MD Immature granulocytes/100 WBC (Bld) 0 % Normal 0-5 [facility] Comment on above: Performed By: #### C DP, BMP #### [facility] [address] [place] [address] [employer]: Zayra Chapman MD Lymphocytes (Bld) [#/Vol] 1.83 10*3/uL Normal 1.00-4.80 [facility] Comment on above: Performed By: #### C DP, BMP #### [facility] [address] [place] [address] [employer]: Zayra Chapman MD Lymphocytes/100 WBC (Bld) 20 % Normal 15-40 [facility] Comment on above: Performed By: #### C DP, BMP #### [facility] [address] [place] [address] [employer]: Zayra Chapman MD MCH (RBC) [Entitic mass] 27.4 pg Normal 26.0-34.0 [facility] Comment on above: Performed By: #### C DP, BMP #### [facility] [address] [place] [address] [employer]: Zayra Chapman MD MCHC (RBC) [Mass/Vol] 32.7 g/dL Normal 31.0-37.0 [facility] Comment on above: Performed By: #### C DP, BMP #### [facility] [address] [place] [address] [employer]: Zayra Chapman MD MCV (RBC) [Entitic vol] 83.8 fL Normal 80.0-100.0 [facility] Comment on above: Performed By: #### C DP, BMP #### [facility] [address] [place] [address] [employer]: Zayra Chapman MD Monocytes (Bld) [#/Vol] 0.50 10*3/uL Normal 0.00-1.00 [facility] Comment on above: Performed By: #### C DP, BMP #### [facility] [address] [place] [address] [employer]: Zayra Chapman MD Monocytes/100 WBC (Bld) 5 % Normal 4-8 M [facility] Comment on above: Performed By: #### C DP, BMP #### [facility] [address] [place] [address] [employer]: Zayra Chapman MD Neutrophil (Seg) 74 % Normal 47-75 [facility] Comment on above: Performed By: #### C DP, BMP #### [facility] [address] [place] [address] [employer]: Zayra Chapman MD Platelet mean volume (Bld) [Entitic vol] 11.3 fL Normal 6.0-12.0 [facility] Comment on above: Performed By: #### C DP, BMP #### [facility] [address] [place] [address] [phone] [employer]: Zayra Chapman MD Platelets (Bld) [#/Vol] 201 10*3/uL Normal 140-450 [facility] Comment on above: Performed By: #### C DP, BMP #### [facility] [address] [place] [address] [phone] [employer]: Zayra Chapman MD RBC (Bld) [#/Vol] 3.76 10*6/uL Low 4.00-5.20 [facility] Comment on above: Performed By: #### C DP, BMP #### [facility] [address] [place] [address] [employer]: Zayra Chapman MD WBC (Bld) [#/Vol] 9.3 10*3/uL Normal 3.5-11.0 [facility] Comment on above: Performed By: #### C DP, BMP #### [facility] [address] [place] [address] [employer]: Zayra Chapman MD Cult,Urineon 08-20-2023 Cult,Urine Specimen Description .CLEAN CATCH URINE Culture NO SIGNIFICANT GROWTH Report Status FINAL 08/20/2023 Normal [facility] Comment on above: Performed By: #### U SAMIRAO, CG, UA #### [facility] [address] [place] [address] [employer]: Zayra Chapman MD Ultrasound - Officeon 2023 Radiology Study observation (narrative) [facility] HIV 1&2 AB/AG Screen (P24 AG [...] Total(Unknown Syphi lis Status)on 06-20-2023 Syphilis Non-Reactive [facility] Type and screenon 06-20-2023 Abo/Rh(D) Positive [facility] Ultrasound - Officeon 2023 [facility] CBC with Diffon 02-13-2023 Abs. Basophil 0.01 k/uL Normal 0.00-0.20 [facility] Comment on above: Performed By: #### L IPR, T4, GLYHGB, T3 #### [address] [id number] [employer]: Antoine Wilson MD #### CP, TSH, CDP, ZFAST #### [facility] [address] [place] [address] [employer]: Zayra Chapman MD Abs.Imm.Granulocyte 0.02 k/uL Normal 0.00-0.30 [facility] Comment on above: Performed By: #### L IPR, T4, GLYHGB, T3 #### [address] [id number] [employer]: Antoine Wilson MD #### CP, TSH, CDP, ZFAST #### [facility] [address] [place] [address] [employer]: Zayra Chapman MD Abs.Neutrophil (Seg) 4.27 k/uL Normal 2.5-7.0 [facility] Comment on above: Performed By: #### L IPR, T4, GLYHGB, T3 #### [address] [id number] [employer]: Antoine Wilson MD #### CP, TSH, CDP, ZFAST #### [facility] [address] [place], [place] [id number] [employer]: Zayra Chapman MD Basophils/100 WBC (Bld) 0 % Normal 0-2 M [facility] Comment on above: Performed By: #### L IPR, T4, GLYHGB, T3 #### [address] [id number] [employer]: Antoine Wilson MD #### CP, TSH, CDP, ZFAST #### [facility] [address] [place] [phone] [employer]: Zayra Chapman MD Eosinophils (Bld) [#/Vol] 0.07 10*3/uL Normal 0.00-0.40 [facility] Comment on above: Performed By: #### L IPR, T4, GLYHGB, T3 #### [place] [id number] [employer]: Antoine Wilson MD #### CP, TSH, CDP, ZFAST #### [facility] [address] [place] [phone] [employer]: Zayra Chapman MD Eosinophils/100 WBC (Bld) 1 % Normal 0-5 [facility] Comment on above: Performed By: #### L IPR, T4, GLYHGB, T3 #### [place] [id number] [employer]: Antoine Wilson MD #### CP, TSH, CDP, ZFAST #### [facility] [address] [place] [phone] [employer]: Zayra Chapman MD Erythrocyte distribution width (RBC) [Ratio] 13.2 % Normal 12.1-15.2 [facility] Comment on above: Performed By: #### L IPR, T4, GLYHGB, T3 #### [place] [id number] [employer]: Antoine Wilson MD #### CP, TSH, CDP, ZFAST #### [facility] [address] [place], [place] [id number] [employer]: Zayra Chapman MD Hematocrit (Bld) [Volume fraction] 41.9 % Normal 36.0-46.0 [facility] Comment on above: Performed By: #### L IPR, T4, GLYHGB, T3 #### [facility] [address] [place] [address] [id number] [employer]: Antoine Wilsno MD #### CP, TSH, CDP, ZFAST #### [facility] [address] [place], [place] [phone] [employer]: Zayra Chapman MD Hemoglobin (Bld) [Mass/Vol] 13.5 g/dL Normal 12.0-16.0 [facility] Comment on above: Performed By: #### L IPR, T4, GLYHGB, T3 #### [address] [id number] [employer]: Antoine Wilson MD #### CP, TSH, CDP, ZFAST #### [facility] [address] [place], [place] [id number] [employer]: Zayar Chapman MD Immature granulocytes/100 WBC (Bld) 0 % Normal 0-5 [facility] Comment on above: Performed By: #### L IPR, T4, GLYHGB, T3 #### [facility] [address] [place] [address] [phone] [employer]: Antoine Wilson MD #### CP, TSH, CDP, ZFAST #### [facility] [address] [place], [place] [phone] [employer]: Zayra Chapman MD Lymphocytes (Bld) [#/Vol] 1.14 10*3/uL Normal 1.00-4.80 [facility] Comment on above: Performed By: #### L IPR, T4, GLYHGB, T3 #### [place] [id number] [place], [place] [id number] [employer]: Antoine Wilson MD #### CP, TSH, CDP, ZFAST #### [facility] [address] [place], [place] [id number] [employer]: Zayra Chapman MD Lymphocytes/100 WBC (Bld) 20 % Normal 15-40 [facility] Comment on above: Performed By: #### L IPR, T4, GLYHGB, T3 #### [address] [id number] [employer]: Antoine Wilson MD #### CP, TSH, CDP, ZFAST #### [facility] [address] [place] [phone] [employer]: Zayra Chapman MD MCH (RBC) [Entitic mass] 26.6 pg Normal 26.0-34.0 [facility] Comment on above: Performed By: #### L IPR, T4, GLYHGB, T3 #### [address] [id number] [employer]: Antoine Wilson MD #### CP, TSH, CDP, ZFAST #### [facility] [address] [place] [phone] [employer]: Zayra Chapman MD MCHC (RBC) [Mass/Vol] 32.2 g/dL Normal 31.0-37.0 [facility] Comment on above: Performed By: #### L IPR, T4, GLYHGB, T3 #### [address] [id number] [employer]: Antoine Wilson MD #### CP, TSH, CDP, ZFAST #### [facility] [address] [place] [address] [employer]: Zayra Chapman MD MCV (RBC) [Entitic vol] 82.6 fL Normal 80.0-100.0 M [facility] Comment on above: Performed By: #### L IPR, T4, GLYHGB, T3 #### [address] [id number] [employer]: Antoine Wilson MD #### CP, TSH, CDP, ZFAST #### [facility] [address] [place], [place] [phone] [employer]: Zayra Chapman MD Monocytes (Bld) [#/Vol] 0.30 10*3/uL Normal 0.00-1.00 [facility] Comment on above: Performed By: #### L IPR, T4, GLYHGB, T3 #### [address] [id number] [employer]: Antoine Wilson MD #### CP, TSH, CDP, ZFAST #### [facility] [address] [place], [place] [id number] [employer]: Zayra Chapman MD Monocytes/100 WBC (Bld) 5 % Normal 4-8 M [facility] Comment on above: Performed By: #### L IPR, T4, GLYHGB, T3 #### [address] [id number] [employer]: Antoine Wilson MD #### CP, TSH, CDP, ZFAST #### [facility] [address] [place], [place] [id number] [employer]: Zayra Chapman MD Neutrophil (Seg) 74 % Normal 47-75 [facility] Comment on above: Performed By: #### L IPR, T4, GLYHGB, T3 #### [address] [address] [employer]: Antoine Wilson MD #### CP, TSH, CDP, ZFAST #### [facility] [address] [place], [place] [id number] [employer]: Zayra Chapman MD Platelet mean volume (Bld) [Entitic vol] 11.0 fL Normal 6.0-12.0 [facility] Comment on above: Performed By: #### L IPR, T4, GLYHGB, T3 #### [address] [id number] [employer]: Antoine Wilson MD #### CP, TSH, CDP, ZFAST #### [facility] [address] [place] [address] [employer]: Zayra Chapman MD Platelets (Bld) [#/Vol] 206 10*3/uL Normal 140-450 [facility] Comment on above: Performed By: #### L IPR, T4, GLYHGB, T3 #### [address] [id number] [employer]: Antoine Wilson MD #### CP, TSH, CDP, ZFAST #### [facility] [address] [place] [phone] [employer]: Zayra Chapman MD RBC (Bld) [#/Vol] 5.07 10*6/uL Normal 4.00-5.20 [facility] Comment on above: Performed By: #### L IPR, T4, GLYHGB, T3 #### [address] [address] [employer]: Antoine Wilson MD #### CP, TSH, CDP, ZFAST #### [facility] [address] [place] [phone] [employer]: Zayra Chapman MD WBC (Bld) [#/Vol] 5.8 10*3/uL Normal 3.5-11.0 [facility] Comment on above: Performed By: #### L IPR, T4, GLYHGB, T3 #### [place] [address] [place] [address] [employer]: Antoine Wilson MD #### CP, TSH, CDP, ZFAST #### [facility] [address] [place] [address] [employer]: Zayra Chapman MD Comp Metabolic Profon 2022 Albumin [Mass/Vol] 4.3 g/dL Normal 3.5-5.2 [facility] Comment on above: Performed By: #### L IPR, T4, GLYHGB, T3 #### [facility] [address] [place] [address] [employer]: Antoine Wilson MD #### CP, TSH, CDP, ZFAST #### [facility] [address] [place], [place] [id number] [employer]: Zayra Chapman MD Alkaline Phos 127 U/L High 35-104 [facility] Comment on above: Performed By: #### L IPR, T4, GLYHGB, T3 #### [facility] [address] [place] [address] [employer]: Antoien Wilson MD #### CP, TSH, CDP, ZFAST #### [facility] [address] [place], [place] [phone] [employer]: Zayra Chapman MD ALT [Catalytic activity/Vol] 51 U/L High 5-33 [facility] Comment on above: Performed By: #### L IPR, T4, GLYHGB, T3 #### [facility] [address] [place], [place] [id number] [employer]: Antoine Wilson MD #### CP, TSH, CDP, ZFAST #### [facility] [address] [place], [place] [id number] [employer]: Zayra Chapman MD Anion gap [Moles/Vol] 12 mmol/L Normal 9-17 [facility] Comment on above: Performed By: #### L IPR, T4, GLYHGB, T3 #### [facility] [address] [place], [place] [phone] [employer]: Antoine Wilson MD #### CP, TSH, CDP, ZFAST #### [facility] [address] [place], [place] [id number] [employer]: Zayra Chapman MD AST [Catalytic activity/Vol] 31 U/L Normal <32 [facility] Comment on above: Performed By: #### L IPR, T4, GLYHGB, T3 #### [address] [id number] [employer]: Antoine Wilson MD #### CP, TSH, CDP, ZFAST #### [facility] [address] [place], [place] [id number] [employer]: Zayra Chapman MD Bilirubin [Mass/Vol] 0.3 mg/dL Normal 0.3-1.2 [facility] Comment on above: Performed By: #### L IPR, T4, GLYHGB, T3 #### [address] [id number] [employer]: Antoine Wilson MD #### CP, TSH, CDP, ZFAST #### [facility] [address] [place], [place] [phone] [employer]: Zayra Chapman MD BUN/CRE Ratio 16 Normal 9-20 [facility] Comment on above: Performed By: #### L IPR, T4, GLYHGB, T3 #### [address] [id number] [employer]: Antoine Wilson MD #### CP, TSH, CDP, ZFAST #### [facility] [address] [place], [place] [id number] [employer]: Zayra Chapman MD Calcium [Mass/Vol] 9.0 mg/dL Normal 8.6-10.4 [facility] Comment on above: Performed By: #### L IPR, T4, GLYHGB, T3 #### [address] [id number] [employer]: Antoine Wilson MD #### CP, TSH, CDP, ZFAST #### [facility] [address] [place], [place] [id number] [employer]: Zayra Chapman MD Chloride [Moles/Vol] 100 mmol/L Normal 98-107 [facility] Comment on above: Performed By: #### L IPR, T4, GLYHGB, T3 #### [address] [id number] [employer]: Antoine Wilson MD #### CP, TSH, CDP, ZFAST #### [facility] [address] [place] [phone] [employer]: Zayra Chapman MD CO2 [Moles/Vol] 24 mmol/L Normal 20-31 [facility] Comment on above: Performed By: #### L IPR, T4, GLYHGB, T3 #### [address] [id number] [employer]: Antoine Wilson MD #### CP, TSH, CDP, ZFAST #### [facility] [address] [place], [place] [id number] [employer]: Zayra Chapman MD Creatinine [Mass/Vol] 0.7 mg/dL Normal 0.5-0.9 [facility] Comment on above: Performed By: #### L IPR, T4, GLYHGB, T3 #### [address] [id number] [employer]: Antoine Wilson MD #### CP, TSH, CDP, ZFAST #### [facility] [address] [place] [address] [employer]: Zayra Chapman MD GFR/1.73 sq M.predicted among non-blacks MDRD (S/P/Bld) [Vol rate/Area] mL/min/{1.73_m2} Normal >60 [facility] Comment on above: Result Comment: These [...] #### L IPR, T4, GLYHGB, T3 #### [address] [phone] [employer]: Antoine Wilson MD #### CP, TSH, CDP, ZFAST #### [facility] [address] [place] [address] [employer]: Zayra Chapman MD Glucose [Mass/Vol] 367 mg/dL High 70-99 [facility] Comment on above: Performed By: #### L IPR, T4, GLYHGB, T3 #### [address] [id number] [employer]: Antoine Wilson MD #### CP, TSH, CDP, ZFAST #### [facility] [address] [place] [address] [employer]: Zayra Chapman MD Potassium [Moles/Vol] 4.3 mmol/L Normal 3.7-5.3 [facility] Comment on above: Performed By: #### L IPR, T4, GLYHGB, T3 #### [address] [phone] [employer]: Antoine Wilson MD #### CP, TSH, CDP, ZFAST #### [facility] [address] [place], [place] [id number] [employer]: Zayra Chapman MD Protein [Mass/Vol] 7.0 g/dL Normal 6.4-8.3 [facility] Comment on above: Performed By: #### L IPR, T4, GLYHGB, T3 #### [address] [id number] [employer]: Antoine Wilson MD #### CP, TSH, CDP, ZFAST #### [facility] [address] [place], [place] [phone] [employer]: Zayra Chapman MD Sodium [Moles/Vol] 136 mmol/L Normal 135-144 [facility] Comment on above: Performed By: #### L IPR, T4, GLYHGB, T3 #### [address] [address] [employer]: Antoine Wilson MD #### CP, TSH, CDP, ZFAST #### [facility] [address] [place], [place] [id number] [employer]: Zayra Chapman MD Urea nitrogen [Mass/Vol] 11 mg/dL Normal 6-20 [facility] Comment on above: Performed By: #### L IPR, T4, GLYHGB, T3 #### [address] [phone] [employer]: Antoine Wilson MD #### CP, TSH, CDP, ZFAST #### [facility] [address] [place], [place] [phone] [employer]: Zayra Chapman MD Hemoglobin A1Con 02-13-2023 Glucose [Mass/Vol] 280 mg/dL Normal [facility] Comment on above: Result Comment: The ADA and AACC recommend providing the estimated average glucose result to permit better patient understanding of their HBA1c result. Performed By: #### U OSITO DAVIDSONG, UA #### [facility] [address] [place], [place] [phone] [employer]: Zayra Chapman MD HbA1c (Bld) [Mass fraction] 11.4 % High 4.0-6.0 [facility] Comment on above: Performed By: #### Julien [facility], UA #### [facility] [address] [place], [place] [phone] [employer]: Zayra Chapman MD Lipid Profileon 02-13-2023 Cholesterol [Mass/Vol] 215 mg/dL High 0-199 [facility] Comment on above: Result Comment: Cholesterol Guidelines: <200 Desirable 200-240 Borderline >240 Undesirable Performed By: #### Julien [facility]SON [facility], UA #### [facility] [address] [place], [place] [phone] [employer]: Zayra Chapman MD Cholesterol in HDL [Mass/Vol] 27 mg/dL Low >40 [facility] Comment on above: Result Comment: HDL Guidelines: <40 Undesirable 40-59 Borderline >59 Desirable Performed By: #### Julien [facility], UA #### [facility] [address] [place] [address] F[employer]: Zayra Chapman MD Cholesterol in LDL [Mass/Vol] 130 mg/dL High 0-100 [facility] Comment on above: Result Comment: LDL Guidelines: <100 Desirable 100-129 Near to/above Desirable 130-159 Borderline >159 Undesirable Direct (measured) LDL and calculated LDL are not interchangeable tests. Performed By: #### Julien [facility], UA #### [facility] [address] [place], [place] [phone] [employer]: Zayra Chapman MD Cholesterol in VLDL [Mass/Vol] 58 mg/dL Normal [facility] Comment on above: Performed By: #### Julien [facility], UA #### [facility] [address] [place], [place] [phone] [employer] Se[employer]: Zayra Chapman MD Cholesterol.total/Otilia sterol in HDL [Mass ratio] 8.0 {ratio} Normal [facility] Comment on above: Performed By: #### Julien [facility], UA #### [facility] [address] [place] [address] F[employer]: Zayra Chapman MD Triglyceride [Mass/Vol] 291 mg/dL High 0-149 M [facility] Comment on above: Result Comment: Triglyceride Guidelines: <150 Desirable 150-199 Borderline 200-499 High >499 Very high Based on AHA Guidelines for fasting triglyceride, February 2012. Performed By: #### Julien [facility], UA #### [facility] [address] [place] [address] F[employer]: Zayra Chapman MD Patient fasting?on 3 Patient fasting? YES Normal [facility] Comment on above: Performed By: #### L IPR, T4, GLYHGB, T3 #### [facility] [address] [place], [place] [phone] [employer]: Antoine Wilson MD #### CP, TSH, CDP, ZFAST #### [facility] [address] [place] [address] [employer]: Zayra Chapman MD Thyroid Stim. Horm.on 2022 Thyroid Stim. Horm. 1.43 uIU/mL Normal 0.30-5.00 [facility] Comment on above: Performed By: #### Julien [facility], UA #### [facility] [address] [place] [address] F[employer] Se[employer]: Zayra Chapman MD Thyroxine T4on 02-13-2023 T4 [Mass/Vol] 5.9 ug/dL Normal 4.5-11.7 [facility] Comment on above: Performed By: #### Julien [facility], UA #### [facility] [address] [place] [address] F[employer] Se[employer]: Zyara Chapman MD Triiodothyronine T3on 2022 Triiodothyronine T3 109 ng/dL Normal 80-200 [facility] Comment on above: Performed By: #### U MICAO, CG, UA #### [facility] [address] [place] [address] F[employer]: Zayra Chapman MD Chlamydia/GC DNA, Uron 12-23 Chlamydia Probe, Ur Negative Normal NEG [facility] Comment on above: Result Comment: CHLA [...] target. Performed By: #### U CGP #### [id number] [place], [place] [phone] [employer]: Antoine Wilson MD Gonorrhea Probe, Ur Negative Normal NEG [facility] Comment on above: Result Comment: NEIS [...] Performed By: #### U CGP #### [facility] [address] [place], [place] [phone] [employer] Se[employer]: Antoine Wilson MD Cult,Urineon 12-21-2022 Cult,Urine Specimen [...] Tobramycin 8 INTERMEDIATE Trimethoprim/Sulfa >=320 RESISTANT Resistant [facility] Comment on above: Performed By: #### U RC #### [facility] [address] [place] [address] F[employer] Se[employer]: Antoine Wilson MD [facility] [address] [place] [address] F[employer] Se[employer]: Zayra Chapman MD HCG, ,Urineon 12-19 Beta HCG ( test) Ql (U) Negative Normal NEG [facility] Comment on above: Performed By: #### U MICAO, CG, UA #### [facility] [address] [place] [address] F[employer] Se[employer]: Zayra Chapman MD Microscopic Urinalysison - [facility] Bacteria LM Ql (Urine sed) 4+ Abnormal None [facility] Epithelial cells LM.HPF (Urine sed) [#/Area] 2 TO 5 /HPF [facility] Interpretation and review of laboratory results Abnormal [facility] RBC LM.HPF (Urine sed) [#/Area] 2 TO 5 [facility] WBC LM.HPF (Urine sed) [#/Area] 50 TO 100 0 /HPF [facility] Yeast LM Ql (Urine sed) OCCASIONAL Abnormal None B ON [facility] , Urineon HCG ( test) Ql (U) Negative NEGATIVE [facility] Urinalysison 12-19-2022 Bilirubin Ql (U) Negative NEGATIVE [facility] Clarity (U) Cloudy Abnormal Clear [facility] Color (U) Yellow Yellow [facility] Comment [facility] Glucose Test strip (U) [Mass/Vol] 1000 mg/dL Abnormal NEGATIVE mg/dL [facility] Hemoglobin Auto test strip Ql (U) 1+ Abnormal NEGATIVE [facility] Interpretation and review of laboratory results Abnormal [facility] Ketones (U) [Mass/Vol] Negative NEGAT [place] mg/dL [facility] Leukocyte esterase Test strip Ql (U) 3+ Abnormal NEGATIVE [facility] Nitrite Ql (U) Positive Abnormal NEGATIVE [facility] pH (U) 6.0 [pH] 5.0 - 8.0 [facility] Protein (U) [Mass/Vol] 1+ Abnormal NEGAT [place] mg/dL [facility] Specific gravity (U) [Rel density] 1.010 1.005 - 1.030 [facility] Urobilinogen Qn (U) Normal 0.0 - 1. 0 EU/dL [facility] Urinalysis, Routineon 2022 Bilirubin, SemiQt,Ur Negative Normal NEG [facility] Comment on above: Performed By: #### U [facility], UA #### [facility] [address] [place] [address] F[employer] Se[employer]: Zayra Chapman MD Blood, Urine 1+ Abnormal NEG [facility] Comment on above: Performed By: #### U MICA, [facility], UA #### [facility] [address] [facility] [place] [address] F[employer]: Zayra Chapman MD Clarity (U) Cloudy Abnormal CLEAR [facility] Comment on above: Performed By: #### U MICAO, [facility], UA #### [facility] [address] [facility] [place] [address] F[employer]: Zayra Chapman MD Color (U) Yellow Normal YEL [facility] Comment on above: Performed By: #### U MICAO, [facility], UA #### [facility] [address] [facility] [place] [address] [employer]: Zayra Chapman MD Comment Normal [facility] Comment on above: Performed By: #### U MICAO, [facility], UA #### [facility] [address] [place], [place] [phone] F[employer]: Zayra Chapman MD Glucose Ql (U) 1000 mg/dL Abnormal NEG [facility] Comment on above: Performed By: #### [facility], [facility] #### [facility] [address] [place] [address] F[employer]: Zayra Chapman MD Ketones Ql (U) Negative Normal NEG [facility] Comment on above: Performed By: #### U MICAO, [facility], UA #### [facility] [address] [place] [address] F[employer] Se[employer]: Zayra Chapman MD Leukocyte esterase Test strip Ql (U) 3+ Abnormal NEG [facility] Comment on above: Performed By: #### U MICAO, [facility], UA #### [facility] [address] [place], [place] [phone] F[employer] Se[employer] Operator [employer]: Zayra Chapman MD Nitrite,Ur Positive Abnormal NEG [facility] Comment on above: Performed By: #### U MICAO, [facility], UA #### [facility] [address] [place] [address] F[employer] Se[employer]: Zayra Chapman MD PH,Ur 6.0 Normal 5.0-8.0 [facility] Comment on above: Performed By: #### U MICAO, [facility], UA #### [facility] [address] [place], [place] [id number] F[employer] Se[employer] Operator [employer]: Zayra Chapman MD Protein Ql (U) 1+ mg/dL Abnormal NEG [facility] Comment on above: Performed By: #### U [facility]ICAO, [facility] #### [facility] [address] [place], [place] [id number] F[employer] Se[employer]: Zayra Chapman MD Spec. [place],Ur 1.010 Normal 1.005-1.030 [facility] Comment on above: Performed By: #### [facility] #### [facility] [address] [place], [place] [id number] F[employer] Se[employer] Operator [employer]: Zayra Chapman MD Urobilinogen,Ur Normal Normal 0.0-1.0 [facility] Comment on above: Performed By: #### U STUART [facility], UA #### [facility] [address] [place] [address] F[employer] Se[employer] Operator [employer]: Zayra Chapman MD Urinalysis,Microon 3 ----- Normal [facility] Comment on above: Performed By: #### Julien [facility]IDSON [facility], UA #### [facility] [address] [place] [address] F[employer] Se[employer] Operator [employer]: Zayra Chapman MD Bacteria 4+ Abnormal NONE [facility] Comment on above: Performed By: #### U STUART [facility], UA #### [facility] [address] [place], [place] [id number] F[employer] Se[employer] Operator [employer]: Zayra Chapman MD Epithelial cells LM Ql (Urine sed) 2 TO 5 Normal [facility] Comment on above: Performed By: #### [facility] #### [facility] [address] [place], [place] [id number] F[employer] Se[employer] Operator [employer]: Zayra Chapman MD Urine RBC's 2 TO 5 Normal 0-2 [facility] Comment on above: Performed By: #### U MICAO [facility], UA #### [facility] [address] [place], [place] [id number] Felled Se[employer] Operator [employer]: Zayra Chapman MD Urine WBC's 50 TO 100 Normal 0 [facility] Comment on above: Performed By: #### U STUART, [facility], UA #### [facility] [address] [place] [address] Felled Se[employer] Operator [employer]: Zayra Chapman MD Yeast OCCASIONAL Abnormal NONE [facility] Comment on above: Performed By: #### U STUART, [facility], UA #### [facility] [address] [place] [address] F[employer] Se[employer] Operator [employer]: Zayra Chapman MD Auto Diffon 12-06-2022 Basophils/100 WBC (Bld) 0.8 % Normal 0.0-2.0 F [facility] Comment on above: Order Comment: Order Added by Discern Expert. Performed By: #### 2 076243, [id number], 0271530, [id number] #### [facility] [address] [place] [address] Basophils/Leukocytes Auto (Bld) [Pure # fraction] 0.1 E9/L Normal 0.0-0.2 [facility] Comment on above: Order Comment: Order Added by Discern Expert. Performed By: #### 2 004149, 6954336, 9597039, [id number] #### [facility] [address] [place] [address] Eosinophils/100 WBC (Bld) 0.3 % Normal 0.0-8.0 [facility] Comment on above: Order Comment: Order Added by Discern Expert. Performed By: #### 2 636974, 4716034, 4876583, [id number] #### [facility] [address] [place] [address] Eosinophils/Leukocytes Auto (Bld) [Pure # fraction] 0.0 E9/L Normal 0.0-0.5 [facility] Comment on above: Order Comment: Order Added by Discern Expert. Performed By: #### 2 292776, 7214630, 3922529, [id number] #### [facility] [address] [place] [address] Lymphocytes/100 WBC (Bld) 12.5 % Low 14.0-50.0 [facility] Comment on above: Order Comment: Order Added by Discern Expert. Performed By: #### 2 889153, 2896013, 6693292, [id number] #### [facility] [address] [place] [address] Lymphocytes/Leukocytes Auto (Bld) [Pure # fraction] 1.3 E9/L Normal 1.0-4.0 [facility] Comment on above: Order Comment: Order Added by Discern Expert. Performed By: #### 2 051173, 6667778, 6870810, [id number] #### [facility] [address] [place] [address] Monocytes/100 WBC (Bld) 4.5 % Normal 4.0-14.0 [facility] Comment on above: Order Comment: Order Added by Discern Expert. Performed By: #### 2 774175, 8038828, 5889073, [id number] #### [facility] [address] [place] [address] Monocytes/Leukocytes Auto (Bld) [Pure # fraction] 0.5 E9/L Normal 0.2-1.0 [facility] Comment on above: Order Comment: Order Added by Lois Expert. Performed By: #### 2 562109, 8098644, 6683472, [id number] #### [facility] [address] [place] [address] Neutrophils/100 WBC (Bld) 81.9 % High 36.0-75.0 [facility] Comment on above: Order Comment: Order Added by Discern Expert. Performed By: #### 2 746457, 9546191, 6997870, [id number] #### [facility] [address] [place] [address] Neutrophils/Leukocytes Auto (Bld) [Pure # fraction] 8.8 E9/L High 2.0-7.5 [facility] Comment on above: Order Comment: Order Added by Discern Expert. Performed By: #### 2 408821, 4818889, 6372620, 23677183 #### [facility] [address] [place] [address] CBC w/ Auto Diffon 3 Erythrocyte distribution width (RBC) [Ratio] 13.9 % Normal 10.9-14.2 [facility] Comment on above: Performed By: #### 2 233873, 4896969, 0067809, 83965162 #### [facility] [address] [place] [address] Hematocrit (Bld) [Volume fraction] 42.7 % Normal 34.0-46.0 [facility] Comment on above: Performed By: #### 2 595718, 1756867, 5713533, 06906372 #### [facility] [address] [place] [address] Hemoglobin (Bld) [Mass/Vol] 14.2 g/dL Normal 12.0-16.0 [facility] Comment on above: Performed By: #### 2 724983, 7967143, 8872825, 37571638 #### [facility] [address] [place] [address] MCH (RBC) [Entitic mass] 26.8 pg Low 27.0-34.0 [facility] Comment on above: Performed By: #### 2 483199, 5307047, 2616615, 48179638 #### [facility] [address] [place] [address] MCHC (RBC) [Mass/Vol] 33.2 g/dL Normal 31.4-36.0 [facility] Comment on above: Performed By: #### 2 197556, 5859931, 3806830, 61786080 #### [facility] [address] [place] [address] MCV (RBC) [Entitic vol] 80.8 fL Normal 80.0-100.0 F [facility] Comment on above: Performed By: #### 2 839327, 6562801, 6271339, 27607775 #### [facility] [address] [place] [address] Platelet mean volume (Bld) [Entitic vol] 9.8 fL Normal 6.4-10.8 [facility] Comment on above: Performed By: #### 2 180449, 3764109, 7141704, 67560192 #### [facility] [address] [place] [address] Platelets (Bld) [#/Vol] 252.0 E9/L Normal 150.0-500.0 [facility] Comment on above: Performed By: #### 2 084260, 7501817, 3591056, 26057423 #### [facility] [address] [place] [address] RBC (Bld) [#/Vol] 5.3 E12/L Normal 4.3-5.9 [facility] Comment on above: Performed By: #### 2 410093, 1313450, 1048110, 37640945 #### [facility] [address] [place] [address] WBC corrected for nucl RBC Auto (Bld) [#/Vol] 10.7 E9/L Normal 4.0-11.0 [facility] Comment on above: Performed By: #### 2 129090, 8930128, 7188571, 98630566 #### [facility] [address] [place] [address] CHEMISTRYOrdered By: SYSTEM SYSTEM on 12-06-2022 Albumin [...] 12-06-2022 Albumin [Mass/Vol] 4.2 g/dL Normal 3.3-5.0 [facility] Comment on above: Performed By: #### 2 847272, 2036212, 1635283, 59660203 #### [facility] [address] [place] [address] Albumin/Globulin (S) [Mass conc ratio] 1.2 Normal 1.1-2.2 [facility] Comment on above: Performed By: #### 2 831985, 3515799, 6045363, 05145567 #### [facility] [address] [place] [address] ALP [Catalytic activity/Vol] 117 Int._Unit/L High 21-98 [facility] Comment on above: Performed By: #### 2 565947, 8721391, 9162553, 28659158 #### [facility] [address] [place] [address] ALT No additional P-5'-P [Catalytic activity/Vol] 78 Int._Unit/L High 6-46 [facility] Comment on above: Performed By: #### 2 768185, 0493826, 6881638, 24552103 #### [facility] [address] [place] [address] AST [Catalytic activity/Vol] 68 Int._Unit/L High 5-43 [facility] Comment on above: Performed By: #### 2 660447, 8598170, 1207454, 10866128 #### [facility] [address] [place] [address] Bilirubin [Mass/Vol] 0.7 mg/dL Normal 0.0-1.1 [facility] Comment on above: Performed By: #### 2 126869, 3997194, 5028873, 59090617 #### [facility] [address] [place] [address] Creatinine [Mass/Vol] 0.8 mg/dL Normal 0.5-1.3 [facility] Comment on above: Performed By: #### 2 033410, 6694979, 0535573, 18920857 #### [facility] [address] [place] [address] Globulin (S) [Mass/Vol] 3.6 g/dL Normal 1.4-4.0 [facility] Comment on above: Performed By: #### 2 422021, 2084437, 6611328, 48350265 #### [facility] [address] [place] [address] Protein [Mass/Vol] 7.8 g/dL Normal 6.0-7.8 [facility] Comment on above: Performed By: #### 2 181546, 4463354, 2169846, 38846600 #### [facility] [address] [place] [address] Urea nitrogen [Mass/Vol] 12 mg/dL Normal 5-21 [facility] Comment on above: Performed By: #### 2 363814, 6588730, 7963106, 79539931 #### [facility] [address] [place] [address] Urea nitrogen/Creatinine [Mass ratio] 15 No Units Normal 10-20 [facility] Comment on above: Performed By: #### 2 926729, 4083982, 4750576, 39753048 #### [facility] [address] [place] [address] Anion gap [Moles/Vol] 15 mmol/L Normal 6-16 [facility] Comment on above: Performed By: #### 2 436060, 8198712, [id number], [id number] #### [facility] [address] [place] [address] Calcium [Mass/Vol] 9.6 mg/dL Normal 8.9-11.1 [facility] Comment on above: Performed By: #### 2 [id number], [id number], [id number], [id number] #### [facility] [address] [place] [address] Chloride [Moles/Vol] 104 mmol/L Normal 101-111 [facility] Comment on above: Performed By: #### 2 [id number], [id number], [id number], [id number] #### [facility] [address] [place] [address] CO2 [Moles/Vol] 22 mmol/L Normal 21-31 [facility] Comment on above: Performed By: #### 2 359606, [id number], [id number], [id number] #### [facility] [address] [place] [address] Glucose [Mass/Vol] 244 mg/dL High 55-199 [facility] Comment on above: Result Comment: If t his glucose result represents a fasting glucose, interpretation should refer to the following reference range: 55-99 mg/dL Performed By: #### 2 [id number], [id number], [id number], [id number] #### [facility] [address] [place] [address] Potassium [Moles/Vol] 4.3 mmol/L Normal 3.5-5.3 [facility] Comment on above: Performed By: #### 2 457692, [id number], [id number], [id number] #### [facility] [address] [place] [address] Sodium [Moles/Vol] 137 mmol/L Normal 135-145 [facility] Comment on above: Performed By: #### 2 [id number], [id number], [id number], [id number] #### [facility] [address] [place] [address] Consent for Treatmenton Consent for Treatment [id number] .00CD:127 Normal [facility] Discharge Instructionson Discharge Instructions [id number] 1.00CD:127 Normal [facility] ED Clinical Summaryon 2022 ED Clinical Summary [address] [address] ED Clinical Summary Person Information Name: RIRI DEMPSEY/[facility] Age: 27 Years : 1995 Sex: Female Language: Bruneian PCP: GAYE BARROS Marital Status: Single Visit [...] 12/06/2022 16:43:40 12/06/2022 16:43:40 ADDRESS: [place] [facility] [id number] [facility] DOC NOTES: MEDICAL INFORMATION: Prescriptions Given: Medications to Continue with No Changes Other Medications venlafaxine (Effexor XR 150 mg Cap-ER) PATIENT EDUCATION INFORMATION: Instructions: Suicidal Feelings: How to Help Yourself Follow up: With: Address: When: [facility] In 3 days 12/09/2022 Comments: Follow safety plan. Return to the emergency department with any worsening symptoms. With: Address: When: GAYE JOSUE [address] [place] [address] [facility] ([employer] In 3 days 12/09/2022 Comments: Call the [...] in 1 month. 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 Return to the emergency department with any worsening symptoms. GAYE JOSUE In 3 days 12/09/2022 EDT [address] [facility] [place] [id number] [facility] (1) Additional Instructions: Call the office [...] Known [employer] (more content not included)... Normal [facility] Comment on above: Result [...] the [place] ? Call the [facility] and human services helpline (211 in the [place] ? Call or text a suicide hotline to speak with a trained counselor. The following suicide hotlines are available in the [place]: ? 4-837-253-TALK ( or 876 in the [place] ? 6-807-ARMCUCI ( ). ? Text 130755. This is the Crisis Text Line in the [place] ? . This is a hotline for [place] speakers. ? . This is a hotline for TTY users. ? 0-179-9-U-YASHIRA ( ). This is a hotline for [...] list of crisis centers in [place], visit: suicideprevention.ny How to help yourself feel better ? [...] anyone or being with other people. ? Apkk-my-eqom conversation is best to help them understand [...] and a mental health checkup. ? Take hmje-llq-mdrxifb and prescription medicines only as told by [...] will hel (more content not included)... Normal [facility] ED Patient Summaryon 023 ED Patient Summary [place] [id number] Patient Discharge Instructions Person Information Name: RIRI DEMPSEY Age: 27 Years Arrival Date: 12/06/2022 13:19:47 Discharge Diagnosis: Situational stress Primary Care Physician: GAYE BARROS Provider Information Primary Provider: Graham Choe DO Advanced Button And Buckle Maker:None The exam and treatment you received in the Emergency Department were for an urgent problem and are not intended as complete care. It is important that you follow up with a doctor, nurse practitioner, or physician?s assistant store manager sales for ongoing care. If your symptoms become worse or you do not improve as expected and you are unable to reach your usual health care provider, you should return to the Emergency Department. We are available 24 hours a day. RIRI DEMPSEY has been given the following list of patient education materials, prescriptions and follow-up instructions: Follow-up Instructions: With: Address: When: [facility] In 3 days 12/09/2022 Comments: Follow safety plan. Return to the emergency department with any worsening symptoms. With: Address: When: GAYE JOSUE [address] [place] [address] [facility] (1) In 3 days 12/09/2022 Comments: [...] opioids can be used to help relieve ghdulxwv-cx-pwhtxn pain and are often prescribed following a [...] and katja (more content not included)... Normal [facility] Ethanolon 12-06-2022 Ethanol [Mass/Vol] mg/dL Normal <=7 [facility] Comment on above: Performed By: #### 2 [id number] ####[facility] [address] [place] [address] HEMATOLOGYOrdered By: SYSTEM SYSTEM on 12-06-2022 Basophils/100 [...] with NPD at time of arrival Normal [facility] SEROLOGYOrdered By: Antonio Stevens on 12-06-2022 HCG.beta subunit (U) [Moles/Vol] Negative Normal [facility] Man Sero U BetaHcg Qualon 12-06-2022 HCG.beta subunit (U) [Moles/Vol] Negative Normal [facility] Comment on above: Performed By: #### 2 [id number] #### [facility] [address] [place] [address] U Drug Screenon 12-06-2022 Benzodiazepines Ql (U) Positive Abnormal Negative [facility] Comment on above: Result Comment: Crit ical Result verified by repeat analysis\No confirmation requested by Physican\Unconfirmed by alternate method\Critical Result UD_BENZ:POS Called to [facility] ER by JOEL STEVENS And Read Back For Confirmation at: 12/06/2022 14:42:33 Negative Cutoff: <200 ng/mL Performed By: #### 2 [id number] ####[place] [address] [place] [address] Tetrahydrocannabinol Screen method >50 ng/mL Ql (U) Positive Abnormal Negative [facility] Comment on above: Result Comment: Crit ical Result verified by repeat analysis\No confirmation requested by Physican\Unconfirmed by alternate method\Critical Result UD_THC:POS Called to [facility] AT ER by JOEL STEVENS And Read Back For Confirmation at: 12/06/2022 14:42:33 Negative Cutoff: <50 ng/mL Performed By: #### 2 [id number] ####[place] [address] [place] [address] Amphetamines Screen method >1000 ng/mL Ql (U) Negative Normal Negative [facility] Comment on above: Result Comment: Nega tive Cutoff: <1000 ng/mL Performed By: #### 2 900691 ####[facility] [address] [place] [address] Barbiturates Screen Ql (U) Negative Normal Negative [facility] Comment on above: Result Comment: Nega tive Cutoff: <200 ng/mL Performed By: #### 2 [id number] ####[facility] [address] [place] [address] Cocaine Ql (U) Negative Normal Negative [facility] Comment on above: Result Comment: Nega tive Cutoff: <300 ng/mL Performed By: #### 2 [id number] ####[facility] [address] [place] [address] Opiates Screen Ql (U) Negative Normal Negative [facility] Comment on above: Result Comment: Nega tive Cutoff: <300 ng/mL Performed By: #### 2 [id number] ####[facility] [address] [place] [address] Phencyclidine Screen method >25 ng/mL Ql (U) Negative Normal Negative [facility] Comment on above: Result Comment: Nega tive Cutoff: <25 ng/mL These drug screen results are to be used for medical (i.e., treatment) purposes only. Unconfirmed drug screening results must not be used for non-medical purposes (e.g., employment testing, legal testing). Performed By: #### 2 [id number] ####[facility] [address] [place] [address] eGFRon 12-06-2022 GFR/1.73 sq M.predicted among non-blacks MDRD (S/P/Bld) [Vol rate/Area] 105 mL/min/1.73 m2 Normal >=59 [facility] Comment on above: Order Comment: Order added by Discern Expert. Result Comment: Nursing Officer dayanna kidney disease could be indicated at eGFR's of less than 60 mL/min/1.73m2. Kidney failure is indicated at less than 15 mL/min/1.73m2. Performed By: #### 2 [id number], [id number], [id number], [id number] ####[facility] [address] [place] [address] Basic Metabolic Panelon 06-05 Anion gap [Moles/Vol] 11 mmol/L 9 - 17 mmol/L [facility] Calcium [Mass/Vol] 9.5 mg/dL 8.6 - 10. 4 mg/dL [facility] Chloride [Moles/Vol] 103 mmol/L 98 - 10 7 mmol/L [facility] CO2 [Moles/Vol] 27 mmol/L 20 - 31 mmol/L [facility] Creatinine [Mass/Vol] 0.57 mg/dL 0.50 - 0.90 mg/dL [facility] GFR/1.73 sq M.predicted MDRD (S/P/Bld) [Vol rate/Area] - PINF [facility] Comment on above: These results are [...] mg/dL High 70 - 99 mg/dL [facility] Interpretation and review of laboratory results Abnormal [facility] Potassium [Moles/Vol] 4.2 mmol/L 3.7 - 5.3 mmol/L [facility] Sodium [Moles/Vol] 141 mmol/L 135 - 144 mmol/L [facility] Urea nitrogen [Mass/Vol] 12 mg/dL 6 - 20 mg/dL [facility] Urea nitrogen/Creatinine (Bld) [Mass ratio] 21 High 9 - 20 [facility] CBC with Auto Differentialon 06-16-2022 Absolute Eos # 0.10 [facility] Absolute Lymph # 1.90 [facility] URS [facility] Absolute Ida # 0.40 [facility] RS [facility] Basophils (Bld) [#/Vol] 0.00 10*3/uL [facility] Basophils/100 WBC (Bld) 1 % 0 - 2 % B ON [facility] Differential Type YES [facility] Eosinophils/100 WBC (Bld) 1 % 0 - 5 % [facility] Hematocrit (Bld) [Volume fraction] 40.3 % 36 - 46 % [facility] Hemoglobin (Bld) [Mass/Vol] 13.0 g/dL 12.0 - 16.0 g/dL [facility] Lymphocytes/100 WBC (Bld) 23 % 15 - 40 % [facility] MCH (RBC) [Entitic mass] 27.2 pg 26 - 34 pg [facility] MCHC (RBC) [Mass/Vol] 32.4 g/dL 31 - 3 7 g/dL [facility] MCV (RBC) [Entitic vol] 84.1 fL 80 - 100 fL [facility] Monocytes/100 WBC (Bld) 5 % 4 - 8 % B ON [facility] Platelet distribution width (Bld) [Ratio] 13.9 % 12.1 - 15.2 % [facility] Platelets (Bld) [#/Vol] 225 10*3/uL [facility] RBC (Bld) [#/Vol] 4.79 10*6/uL 4.0 - 5.2 m/uL [facility] Segmented neutrophils/100 WBC (Bld) 70 % 47 - 75 % [facility] Segs Absolute 5.70 [facility] WBC (Bld) [#/Vol] 8.2 10*3/uL [facility] CT HEAD WO CONTRASTon 2022 No acute intracranial abnormality. FOLLOW-UP: Follow-up as clinically indicated. [facility] CONSOLID[facility] EXAM: CT HEAD WO CONTRAST 06/16/2022 2:34 AM EST [facility] CLINICAL STATEMENT: Has a code [...] HEAD WO CONTRAST 06/16/2022 2:34 AM EST [facility] CLINICAL STATEMENT: Has a code [...] abnormality. FOLLOW-UP: Follow-up as clinically indicated. JULIANO [employer] Work Phone: Radiology Study observation (narrative) JULIANO PADILLA [employer] Work Phone: CT HEAD WO CONTRASTOrdered B y: Trang Said on 06-16-2022 [employer] Work Phone: HCG Qualitative, Serumon hCG Qual Negative [facility] [employer] Comment on above: Specimens with hCG l evels near the threshold of the test (25 mIU/mL) may give a negative or indeterminate result. In such cases, another test should be performed with a new specimen in 48-72 hours. If early is suspected clinically in this setting, correlation with quantitative serum b-hCG level is suggested. [employer] has confirmed the use of plasma for this test. This has not been cleared or approved by the [place]. Food and Drug Administration. The FDA has determined that such clearance is not necessary. [facility] Ur[facility]on [facility]-16-2022 Bilirubin Urine Negative NEGATIVE [facility] basno Color, UA Yellow Yellow [facility] basno Glucose Auto test strip (U) [Mass/Vol] Negative NEGATIVE [facility] Interpretation and review of laboratory results Abnormal [facility] basno Ketones (U) [Mass/Vol] Negative NEGATIVE [facility] basno Leukocyte esterase Auto test strip Ql (U) Negative NEGATIVE [facility] basno Nitrite Auto test strip Ql (U) Negative NEGATIVE [facility] basno Protein (U) [Mass/Vol] 7.0 mg/dL 5.0 - 8.0 [facility] basno Protein (U) [Mass/Vol] TRACE Abnormal NEGATIVE [facility] basno Specific [place], UA 1.005 1.005 - 1.030 [facility] Turbidity UA Clear Clear [facility] Urinalysis Comments JULIANO Lee [facility] Urine Hgb Negative NEGATIVE [facility] Urobilinogen, Urine Normal Normal JULIANO Lee [facility] JULIANO [facility] XR LUMBAR SPINE (MIN 4 VIEWS )on 03-13-2022 No degenerative change, discitis or fracture. [facility]IS CONSOLIDATED EXAM: XR LUMBAR SPIN E (MIN 4 VIEWS) HISTORY: Reason for exam:->midline low back pain [facility] Quinn Roberto Jr., MD - 03/13/2022 EXAM: XR LUMBAR SPINE (MIN 4 VIEWS) HISTORY: Reason for exam:->midline low back pain IMPRESSION: No degenerative change, discitis or fracture. [facility] [employer] Work Phone: Radiology Study observation (narrative) [facility] [employer] Work Phone: XR LUMBAR SPINE (MIN 4 VIEWS )Ordered By: Quinn Roberto on 03-13-2022 [facility] Work Phone: CBC AUTO DIFFon 10-04-2021 BASO # 0.0 103/ul Normal 0.0-0.1 [facility] Comment on above: Performed By: #### H H #### [facility] [address] [place] [address] [address] Ramya Ramey Basophils/100 WBC (Bld) 0.2 % Normal 0.2-2.0 [facility] Comment on above: Performed By: #### H H #### [facility] [address] [place] [address] [address] Ramya Ramey EO # 0.1 103/ul Normal 0.0-0.7 [facility] Comment on above: Performed By: #### H H #### [facility] [address] [place] [address] [address] Ramya Ramey Eosinophils/100 WBC (Bld) 0.7 % Critically low 0.9-7.0 [facility] Comment on above: Performed By: #### H H #### [facility] [address] [place] [address] Dr. Ramya Ramey Erythrocyte distribution width (RBC) [Ratio] 13.4 % Normal 11.0-15.0 [facility] Comment on above: Performed By: #### H H #### [facility] [address] [place] [address] Dr. Ramya Ramey Hematocrit (Bld) [Volume fraction] 29.4 % Critically low 36.0-48.0 [facility] Comment on above: Performed By: #### H H #### [facility] [address] [place] [address] Dr. Ramya Ramey Hemoglobin (Bld) [Mass/Vol] 9.5 g/dL Critically low 12.0-16.0 [facility] Comment on above: Performed By: #### H H #### [facility] [address] [place] [address] Dr. Ramya Ramey IG # 0.06 10e3/ul Critically high 0.00-0.03 [facility] Comment on above: Performed By: #### H H #### [facility] [address] [place] [address] Dr. Ramya Ramey IG % 0.5 % Normal 0.0-0.5 [facility] Comment on above: Performed By: #### H H #### [facility] [address] [place] [address] Dr. Rayma Ramey LYMPH # 1.3 103/ul Normal 1.2-3.8 [facility] Comment on above: Performed By: #### H H #### [facility] [address] [place] [address] Dr. Ramya Ramey Lymphocytes/100 WBC (Bld) 11.5 % Critically low 20.5-60.0 [facility] Comment on above: Performed By: #### H H #### [facility] [address] [place] [address] Dr. Ramya Ramey MANUAL DIFF REQ NO Normal [facility] Comment on above: Performed By: #### H H #### [facility] [address] [place] [address] Dr. Ramya Ramey MCH (RBC) [Entitic mass] 28.4 pg Normal 26.7-34.0 [facility] Comment on above: Performed By: #### H H #### [facility] [address] [place] [address] [address] Ramya Ramey MCHC (RBC) [Mass/Vol] 32.3 g/dL Normal 29.9-35.2 [facility] Comment on above: Performed By: #### H H #### [facility] [address] [place] [address] [address] Ramya Ramey MCV (RBC) [Entitic vol] 88.0 fL Normal 81.0-99.0 [facility] Comment on above: Performed By: #### H H #### [facility] [address] [place] [address] Dr. Ramya Ramey MONO # 0.7 103/ul Normal 0.3-0.8 [facility] Comment on above: Performed By: #### H H #### [facility] [address] [place] [address] Dr. Ramya Ramey Monocytes/100 WBC (Bld) 5.9 % Normal 1.7-12.0 [facility] Comment on above: Performed By: #### H H #### [facility] [address] [place] [address] Dr. Ramya Ramey NEUT # 9.4 103/ul Critically high 1.4-6.5 [facility] Comment on above: Performed By: #### H H #### [facility] [address] [place] [address] [address] Ramya Ramey Neutrophils/100 WBC (Bld) 81.2 % Critically high 43.0-75.0 [facility] Comment on above: Performed By: #### H H #### [facility] [address] [place] [address] [address] Ramya Ramey Platelet mean volume (Bld) [Entitic vol] 11.9 fL Normal 9.5-13.5 [facility] Comment on above: Performed By: #### H H #### [facility] [address] [place] [address] [address] Ramya Ramey PLT 162 103/ul Normal 150-450 [facility] Comment on above: Performed By: #### H H #### [facility] [address] [place] [address] Dr. Ramya Ramey RBC 3.34 106/ul Critically low 4.20-5.40 [facility] Comment on above: Performed By: #### H H #### [facility] [address] [address] [address] Ramya Ramey WBC 11.5 103/ul Critically high 4.0-11.[address] [facility] Comment on above: Performed By: #### H H #### [facility] [address] [place] [address] Dr. Ramya Ramey CBC AUTO DIFFon 10-03-2021 BASO # 0.0 103/ul Normal 0.0-0.1 [facility] Comment on above: Performed By: #### H H #### [facility] [address] [place] [address] Dr. Ramya Ramey Basophils/100 WBC (Bld) 0.2 % Normal 0.2-2.0 [facility] Comment on above: Performed By: #### H H #### [facility] [address] [place] [address] Dr. Ramya Ramey EO # 0.1 103/ul Normal 0.0-0.7 [facility] Comment on above: Performed By: #### H H #### [facility] [address] [place] [address] Dr. Ramya Ramey Eosinophils/100 WBC (Bld) 0.9 % Normal 0.9-7.0 [facility] Comment on above: Performed By: #### H H #### [facility] [address] [place] [address] Dr. Ramya Ramey Erythrocyte distribution width (RBC) [Ratio] 13.3 % Normal 11.0-15.0 [facility] Comment on above: Performed By: #### H H #### [facility] [address] [place] [address] Dr. Ramya Ramey Hematocrit (Bld) [Volume fraction] 34.8 % Critically low 36.0-48.0 [facility] Comment on above: Performed By: #### H H #### [facility] [address] [place] [address] Dr. Ramya Ramey Hemoglobin (Bld) [Mass/Vol] 11.2 g/dL Critically low 12.0-16.0 [facility] Comment on above: Performed By: #### H H #### [facility] [address] [address] [address] Ramya Ramey IG # 0.07 10e3/ul Critically high 0.00-0.03 [facility] Comment on above: Performed By: #### H H #### [facility] [address] [place] [address] Dr. Ramya Ramey IG % 0.6 % Critically high 0.0-0.5 [facility] Comment on above: Performed By: #### H H #### [facility] [address] [place] [address] Dr. Ramya Ramey LYMPH # 1.5 103/ul Normal 1.2-3.8 [facility] Comment on above: Performed By: #### H H #### [facility] [address] [place] [address] Dr. Ramya Ramey Lymphocytes/100 WBC (Bld) 13.4 % Critically low 20.5-60.0 [facility] Comment on above: Performed By: #### H H #### [facility] [address] [place] [address] Dr. Ramya Ramey MANUAL DIFF REQ NO Normal [facility] Comment on above: Performed By: #### H H #### [facility] [address] [place] [address] Dr. Ramya Ramey MCH (RBC) [Entitic mass] 28.3 pg Normal 26.7-34.0 [facility] Comment on above: Performed By: #### H H #### [facility] [address] [place] [address] Dr. Ramya Ramey MCHC (RBC) [Mass/Vol] 32.2 g/dL Normal 29.9-35.2 [facility] Comment on above: Performed By: #### H H #### [facility] [address] [place] [address] Dr. Ramya Ramey MCV (RBC) [Entitic vol] 87.9 fL Normal 81.0-99.0 [facility] Comment on above: Performed By: #### H H #### [facility] [address] [place] [address] Dr. Ramya Ramey MONO # 0.5 103/ul Normal 0.3-0.8 [facility] Comment on above: Performed By: #### H H #### [facility] [address] [place] [address] Dr. Ramya Ramey Monocytes/100 WBC (Bld) 4.8 % Normal 1.7-12.0 [facility] Comment on above: Performed By: #### H H #### [facility] [address] [place] [address] Dr. Ramya Ramey NEUT # 8.9 103/ul Critically high 1.4-6.5 [facility] Comment on above: Performed By: #### H H #### [facility] [address] [place] [address] Dr. Ramya Ramey Neutrophils/100 WBC (Bld) 80.1 % Critically high 43.0-75.0 [facility] Comment on above: Performed By: #### H H #### [facility] [address] [place] [address] Dr. Ramya Ramey Platelet mean volume (Bld) [Entitic vol] 11.8 fL Normal 9.5-13.5 [facility] Comment on above: Performed By: #### H H #### [facility] [address] [place] [address] Dr. Ramya Ramey PLT 194 103/ul Normal 150-450 [facility] Comment on above: Performed By: #### H H #### [facility] [address] [place] [address] Dr. Ramya Ramey RBC 3.96 106/ul Critically low 4.20-5.40 [facility] Comment on above: Performed By: #### H H #### [facility] [address] [place] [address] Dr. Ramya Ramey WBC 11.1 103/ul Critically high 4.0-11.[address] [facility] Comment on above: Performed By: #### H H #### [facility] [address] [place] [address] Dr. Ramya Ramey Covid-19 PCR ([facility])on SARS-CoV-2 (COVID-19) RNA JAKE+probe Ql (Unsp spec) Not detected Normal NOT DETECTED [facility] Comment on above: Result Comment: When [...] for this test is supported by the [place] of Health and Human Service's declaration that [...] used). Performed By: #### H H #### [facility] [address] [place] [address] Dr. Ramya Ramye DRUG SCREEN RAPID (URINE)on 10-03-2021 AMP Negative Normal NEGATIVE [facility] Comment on above: Performed By: #### H H #### [facility] [address] [place] [address] Dr. Ramya Ramey BAR Negative Normal NEGATIVE [facility] Comment on above: Performed By: #### H H #### [facility] [address] [place] [address] Dr. Ramya Ramey BUP Negative Normal NEGATIVE [facility] Comment on above: Performed By: #### H H #### [facility] [address] [place] [address] Dr. Ramya Ramey BZO Negative Normal NEGATIVE [facility] Comment on above: Performed By: #### H H #### [facility] [address] [place] [address] Dr. Ramya Ramey ANIBAL Negative Normal NEGATIVE [facility] Comment on above: Performed By: #### H H #### [facility] [address] [place] [address] Dr. Ramya Ramey CUT-OFFS SEE BELOW Normal [facility] Comment on above: Result Comment: [...] ng/mL Performed By: #### H H #### [facility] [address] [place] [address] Dr. Ramya Ramey DRUG CUT HEADER DRUG CLASS TEST SYSTEM CUT-OFF CONCENTRATIONS ARE FOLLOWS: Normal [facility] Comment on above: Performed By: #### H H #### [facility] [address] [place] [address] Dr. Ramya Ramey mAMP Negative Normal NEGATIVE [facility] Comment on above: Performed By: #### H H #### [facility] [address] [place] [address] Dr. Ramya Ramey MTD Negative Normal NEGATIVE [facility] Comment on above: Performed By: #### H H #### [facility] [address] [place] [address] Dr. Ramya Ramey OPI Negative Normal NEGATIVE [facility] Comment on above: Performed By: #### H H #### [facility] [address] [address] [address] Ramya Ramey OXY Negative Normal NEGATIVE [facility] Comment on above: Performed By: #### H H #### [facility] [address] [address] [address] Ramya Ramey PCP Negative Normal NEGATIVE [facility] Comment on above: Performed By: #### H H #### [facility] [address] [address] [address] Ramya Ramey PPX Negative Normal NEGATIVE [facility] Comment on above: Performed By: #### H H #### [facility] [address] [address] [address] Ramya Ramey TCA Negative Normal NEGATIVE [facility] Comment on above: Performed By: #### H H #### [facility] [address] [address] [address] Ramya Ramey THC Negative Normal NEGATIVE [facility] Comment on above: Performed By: #### H H #### [facility] [address] [address] [address] Ramya Ramey POINT OF CARE GLUCOSEon Glucose [Mass/Vol] 126 mg/dL Critically high 74-106 T [facility] Comment on above: Performed By: #### P OCGLUC #### [facility] [address] [address] [address] Ramya Ramey TYPE AND SCREENon 10-03-2021 TYPE AND SCREEN Negative Normal [facility] Comment on above: Performed By: #### P OCGLUC #### [facility] [address] [address] [address] Ramya Ramye CULTURE URINEon 10-01-2021 CULTURE URINE Culture Observations : LIGHT GROWTH OF MIXED GENITAL LEANA. NO POTENTIAL PATHOGENS SEEN. Normal [facility] Comment on above: Performed By: #### P OCGLUC #### [facility] [address] [address] [address] Ramya Ramey POINT OF CARE GLUCOSEon 09-04 Glucose [Mass/Vol] 134 mg/dL Critically high 74-106 T [facility] Comment on above: Performed By: #### P OCGLUC #### [facility] [address] [address] [address] Ramya Ramey UA (CLEAN/CATCH) SHOE TREER/MICRO I F IND.on 10-01-2021 Bilirubin Ql (U) Negative Normal NEGATIVE [facility] Comment on above: Performed By: #### U ACSIND, UMICRO #### [facility] [address] [address] [address] Ramya Ramey Clarity (U) CLEAR Normal CLEAR [facility] Comment on above: Performed By: #### U ACSIND, UMICRO #### [facility] [address] [address] [address] Ramya Ramey Color (U) YELLOW Normal YELLOW [facility] Comment on above: Performed By: #### U ACSIND, UMICRO #### [facility] [address] [address] [address] Ramya Ramey Glucose Ql (U) Negative Normal NEGATIVE [facility] Comment on above: Performed By: #### U ACSIND, UMICRO #### [facility] [address] [address] [address] Ramya Ramey Hemoglobin Ql (U) Negative Normal NEGATIVE [facility] Comment on above: Performed By: #### U ACSIND, UMICRO #### [facility] [address] [address] [address] Ramya Ramey Ketones Ql (U) Negative Normal NEGATIVE [facility] Comment on above: Performed By: #### U ACSIND, UMICRO #### [facility] [address] [address] [address] Ramya Ramey LEUKOCYTES LARGE Abnormal NEGATIVE [facility] Comment on above: Performed By: #### U ACSIND, UMICRO #### [facility] [address] [place] [address] Dr. Ramya Ramey Nitrite Ql (U) Negative Normal NEGATIVE [facility] Comment on above: Performed By: #### U ACSIND, UMICRO #### [facility] [address] [address] [address] Ramya Ramey pH (U) 6.5 [pH] Normal 5-9 [facility] Comment on above: Performed By: #### U ACSCLOVER UMICRO #### [facility] [address] [address] [address] Ramya Ramey SPEC GRAVITY 1.010 Normal 1.005-<=1.0 25 [facility] Comment on above: Performed By: #### U ACSCLOVER UMICRO #### [facility] [address] [address] [address] Ramya Ramey UA PROTEIN Negative Normal NEGATIVE/ TRACE [facility] Comment on above: Performed By: #### U ACSCLOVER UMICRO #### [facility] [address] [place] [address] Dr. Ramya Ramey UR MICRO IND INDICATED Normal [facility] Comment on above: Performed By: #### U RHYS UMICRO #### [facility] [address] [place] [address] Dr. Ramya Ramey Urobilinogen Qn (U) 0.2 {Sariah'U}/dL Normal 0.2 - 1. 0 [facility] Comment on above: Performed By: #### U ACSCLOVER UMICRO #### [facility] [address] [place] [address] Dr. Ramya Ramey URINE MICROSCOPIC ONLYon BACTERIA LARGE Abnormal NONE SEEN [facility] Comment on above: Performed By: #### U ACSCLOVER UMICRO #### [facility] [address] [place] [address] Dr. Ramya Ramey Bacteria identified Cx Nom (U) INDICATED Normal [facility] Comment on above: Performed By: #### U ACSCLOVER UMICRO #### [facility] [address] [place] [address] Dr. Ramya Ramey CAST NONE SEEN Normal NONE SEEN [facility] Comment on above: Performed By: #### U ACSCLOVER UMICRO #### [facility] [address] [place] [address] Dr. Ramya Ramey Crystals LM Nom (Urine sed) NONE SEEN Normal NONE SEEN [facility] Comment on above: Performed By: #### U ACSIND, UMICRO #### [facility] [address] [place] [address] Dr. Ramya Ramey Epithelial cells LM Ql (Urine sed) MANY Abnormal NONE SEEN /RARE [facility] Comment on above: Performed By: #### U ACSIND, UMICRO #### [facility] [address] [address] [address] Ramya Ramey MUCOUS TRACE Abnormal NONE SEEN [facility] Comment on above: Performed By: #### U ACSCLOVER, UMICRO #### [facility] [address] [place] [address] Dr. Ramya Ramey RBC 5-10 Abnormal 0-2 [facility] Comment on above: Performed By: #### U ACSCLOVER, UMICRO #### [facility] [address] [place] [address] Dr. Ramya Ramey WBC 75-100 Abnormal NONE SEEN [facility] Comment on above: Performed By: #### U ACSIND, UMICRO #### [facility] [address] [place] [address] Dr. Ramya Ramey GROUP B STREP CULTUREon [...] F Tetracycline >=16 R F Normal [facility] Comment on above: Performed By: #### G BSCX #### [facility] [address] [place] [address] Dr. Ramya Ramey US PREG BIOPHY W [...] by: MARY CRAFT Date: 2021-09-26 10:40 Normal [facility] US PREG GROWTHon 09-26-2021 US [...] by: MARY CRAFT Date: 2021-09-26 10:42 Normal [facility] US PREG BIOPHY W NON [...] by: ZAYRA ORTIZ Date: 2021-09-20 07:12 Normal [facility] US PREG BIOPHY W NON [...] by: MARY CRAFT Date: 2021-09-12 16:24 Normal [facility] US PREG BIOPHY W NON [...] by: MARY CRAFT Date: 2021-09-05 16:47 Normal [facility] US PREG BIOPHY W NON [...] by: ZAYRA ORTIZ Date: 2021-08-31 07:14 Normal [facility] US PREG BIOPHY W NON [...] ZAYRA ORTIZ Date: 2021-08-30 07:11 Normal [facility] US PREG GROWTHon 08-30-2021 US PREG [...] Normal interval growth Electronically authenticated by: ZAYRA ROTIZ Date: 2021-08-30 07:10 Normal [facility] CULTURE URINEon 08-24-2021 CULTURE URINE Culture Observations : MODERATE GROWTH OF MIXED GENITAL LEANA. NO POTENTIAL PATHOGENS SEEN. Normal [facility] Comment on above: Performed By: #### P OCGLUC #### [facility] [address] [address] [address] Ramya Ramey POINT OF CARE GLUCOSEon 08-04 Glucose [Mass/Vol] 132 mg/dL Critically high 74-106 T [facility] Comment on above: Performed By: #### H H #### [facility] [address] [address] [address] Ramya Ramey UA (CLEAN/CATCH) SHOE TREER/MICRO I F IND.on 08-24-2021 Bilirubin Ql (U) Negative Normal NEGATIVE [facility] Comment on above: Performed By: #### U ACSIND, UMICRO #### [facility] [address] [address] [address] Ramya Ramey Clarity (U) CLEAR Normal CLEAR [facility] Comment on above: Performed By: #### U ACSIND, UMICRO #### [facility] [address] [place] [address] Dr. Ramya Ramey Color (U) YELLOW Normal YELLOW [facility] Comment on above: Performed By: #### U ACSIND, UMICRO #### [facility] [address] [address] [address] Ramya Ramey Glucose Ql (U) 250 mg/dl Abnormal NEGATIVE [facility] Comment on above: Performed By: #### U ACSIND, UMICRO #### [facility] [address] [address] [address] Ramya Ramey Hemoglobin Ql (U) TRACE-INTACT Abnormal NEGATIVE [facility] Comment on above: Performed By: #### U ACSIND, UMICRO #### [facility] [address] [address] [address] Ramya Ramey Ketones Ql (U) Negative Normal NEGATIVE [facility] Comment on above: Performed By: #### U ACSIND, UMICRO #### [facility] [address] [address] [address] Ramya Ramey LEUKOCYTES MODERATE Abnormal NEGATIVE [facility] Comment on above: Performed By: #### U ACSIND, UMICRO #### [facility] [address] [address] [address] Ramya Ramey Nitrite Ql (U) Negative Normal NEGATIVE [facility] Comment on above: Performed By: #### U ACSCLOVER UMICRO #### [facility] [address] [place] [address] Dr. Ramya Ramey pH (U) 6.0 [pH] Normal 5-9 [facility] Comment on above: Performed By: #### U ACSCLOVER UMICRO #### [facility] [address] [place] [address] Dr. Ramya Ramey SPEC GRAVITY 1.020 Normal 1.005-<=1.0 25 [facility] Comment on above: Performed By: #### U ACSCLOVER UMICRO #### [facility] [address] [place] [address] Dr. Ramya Ramey UA PROTEIN TRACE Normal NEGATIVE/ TRACE [facility] Comment on above: Performed By: #### U ACSCLOVER UMICRO #### [facility] [address] [place] [address] Dr. Ramya Ramey UR MICRO IND INDICATED Normal [facility] Comment on above: Performed By: #### U ACSCLOVER UMICRO #### [facility] [address] [place] [address] Dr. Ramya Ramey Urobilinogen Qn (U) 0.2 {Sariah'U}/dL Normal 0.2 - 1. 0 [facility] Comment on above: Performed By: #### U ACSCLOVER UMICRO #### [facility] [address] [place] [address] Dr. Ramya Ramey URINE MICROSCOPIC ONLYon BACTERIA MODERATE Abnormal NONE SEEN [facility] Comment on above: Performed By: #### U ACSCLOVER UMICRO #### [facility] [address] [place] [address] Dr. Ramya Ramey Bacteria identified Cx Nom (U) INDICATED Normal [facility] Comment on above: Performed By: #### U ACSCLOVER UMICRO #### [facility] [address] [place] [address] Dr. Ramya Ramey CAST NONE SEEN Normal NONE SEEN [facility] Comment on above: Performed By: #### U ACSIND, UMICRO #### [facility] [address] [address] [address] Ramya Ramey Crystals LM Nom (Urine sed) NONE SEEN Normal NONE SEEN [facility] Comment on above: Performed By: #### U ACSIND, UMICRO #### [facility] [address] [place] [address] Dr. Ramya Ramey Epithelial cells LM Ql (Urine sed) MANY Abnormal NONE SEEN /RARE [facility] Comment on above: Performed By: #### U ACSIND, UMICRO #### [facility] [address] [place] [address] Dr. Ramya Ramey MUCOUS NONE SEEN Normal NONE SEEN [facility] Comment on above: Performed By: #### U ACSIND, UMICRO #### [facility] [address] [place] [address] Dr. Ramya Ramey RBC 2-5 Abnormal 0-2 [facility] Comment on above: Performed By: #### U ACSIND, UMICRO #### [facility] [address] [place] [address] Dr. Ramya Ramey WBC 10-20 Abnormal NONE SEEN [facility] Comment on above: Performed By: #### U ACSIND, UMICRO #### [facility] [address] [place] [address] Dr. Ramya Ramey HEPATITIS C ANTIBODYon 07-18 Hep C Virus Ab <0.1 Normal 0.0-0.9 [facility] Comment on above: Result Comment: Nega tive: < 0.8 Indeterminate: 0.8 - 0.9 Positive: > 0.9 . The CDC recommends that a positive HCV antibody result be followed up with a HCV Nucleic Acid Amplification test (346224). Performed By: #### H CV #### [facility] [address] [place] [address] Dr. Ramya Ramey ABO AND RH TYPEon 07-17-2021 ABO and Rh group Nom (Bld) ABO Rh Typing B Rh Positive Normal [facility] Comment on above: Performed By: #### P OCGLUC #### [facility] [address] [place] [address] Dr. Ramya Ramey GLUCOSE - 1HRon 07-17-2021 Glucose [Mass/Vol] 238 mg/dL Critically high 74-106 T [facility] Comment on above: Performed By: #### G LU1HR #### [facility] [address] [place] [address] Dr. Ramya Ramey GLYCOHEMOGLOBIN A1Con 2021 ADA RECOMMENDATION ADA THERAPEUTIC TARGET 6.0 - 7.0 ACTION SUGGESTED > 7.0 Normal [facility] Comment on above: Performed By: #### H H #### [facility] [address] [place] [address] Dr. Ramya Ramey Glucose [Mass/Vol] 120 mg/dL Normal [facility] Comment on above: Performed By: #### H H #### [facility] [address] [place] [address] Dr. Ramya Ramey HbA1c (Bld) [Mass fraction] 5.8 % Normal <=6.0 [facility] Comment on above: Performed By: #### H H #### [facility] [address] [place] [address] Dr. Ramya Ramey HEMOGRAM AND PLATELon 2021 Hematocrit (Bld) [Volume fraction] 33.3 % Critically low 36.0-48.0 [facility] Comment on above: Performed By: #### H H #### [facility] [address] [place] [address] Dr. Ramya Ramey Hemoglobin (Bld) [Mass/Vol] 10.8 g/dL Critically low 12.0-16.0 [facility] Comment on above: Performed By: #### H H #### [facility] [address] [place] [address] Dr. Ramya Ramey MCH (RBC) [Entitic mass] 28.9 pg Normal 26.7-34.0 [facility] Comment on above: Performed By: #### H H #### [facility] [address] [place] [address] Dr. Ramya Ramey MCHC (RBC) [Mass/Vol] 32.4 g/dL Normal 29.9-35.2 [facility] Comment on above: Performed By: #### H H #### [facility] [address] [place] [address] Dr. Rmaya Ramey MCV (RBC) [Entitic vol] 89.0 fL Normal 81.0-99.0 [facility] Comment on above: Performed By: #### H H #### [facility] [address] [place] [address] Dr. Ramya Ramey PLT 217 103/ul Normal 150-450 [facility] Comment on above: Performed By: #### H H #### [facility] [address] [place] [address] Dr. Ramya Ramey RBC 3.74 106/ul Critically low 4.20-5.40 [facility] Comment on above: Performed By: #### H H #### [facility] [address] [place] [address] Dr. Ramya Ramey WBC 11.5 103/ul Critically high 4.0-11.[address] [facility] Comment on above: Performed By: #### H H #### [facility] [address] [place] [address] Dr. Ramya Ramey CHLAMYDIA/GONOCOCCUS JAKE ( AB/URINE/PAPon 06-21-2021 Chlamydia trachomatis, JAKE Negative Normal Negative [facility] Comment on above: Performed By: #### C T/NGNA #### [facility] [address] [place] [address] Dr. Ramya Ramey Neisseria gonorrhoeae, JAKE Negative Normal Negative [facility] Comment on above: Performed By: #### C T/NGNA #### [facility] [address] [place] [address] Dr. Ramya Ramey VAGINITIS/VAGINOSIS DNA PROB [place] 06-20-2021 Teetee species Negative Normal Negative [facility] Comment on above: Performed By: #### H H #### [facility] [address] [place] [address] Dr. Ramya Ramey Gardnerella vaginalis Positive Abnormal Negative [facility] Comment on above: Performed By: #### H H #### [facility] [address] [place], [place] [address] Dr. Ramya Ramey Trichomonas vaginalis Negative Normal Negative [facility] Comment on above: Performed By: #### H H #### [facility] [address] [place], [place] [address] Dr. Ramya Ramey AFP, Maternalon 06-03-2021 Determined by Other Normal [facility] Comment on above: Performed By: #### C MIS #### [address] [address] [employer]: Antoine Wilson MD #### AAFPM #### [address] [address] [employer]: Antoine Wilson MD [facility] [employer] [address] [place] [phone] [employer]: Nick Mills MD Due Date SEE NOTE Normal [facility] Comment on above: Result Comment: Resu lts for Estimated Due Date: 10 21 21 Performed By: #### C MIS #### [address] [address] [employer]: Antoine Wilson MD #### AAFPM #### [address] [address] [employer]: Antoine Wilson MD [facility] [address] [place] [address] [employer]: Nick Mills MD Family History No Normal [facility] Comment on above: Performed By: #### C MIS #### [address] [address] [employer]: Antoine Wilson MD #### AAFPM #### [address] [address] [employer]: Antoine Wilson MD [facility] [address] [place] [address] [employer]: Nick Mills MD Gestat Age (exact) 19 wks, 4 days Normal [facility] Comment on above: Performed By: #### C MIS #### [address] [address] [employer]: Antoine Wilson MD #### AAFPM #### [address] [address] [employer]: Antoine Wilson MD [address] [address] [employer]: Nick Mills MD Ins Req Matern Diab Unknown Normal [facility] Comment on above: Performed By: #### C MIS #### [address] [address] [employer]: Antoine Wilson MD #### AAFPM #### [address] [address] [employer]: Antoine Wilson MD [address] [phone] [employer]: Nick Mills MD Interpretation Screen Neg Normal [facility] Comment on above: Result Comment: (NOT E) INTERPRETATION: SCREEN NEGATIVE for open spina bifida Neural Tube Defects (NTD) Negative Pre-Test Post-Test Cutoff Neural Tube Defects Risks 1:1030 1:7440 1:250 Comments: The risk of an open neural tube defect is less than the screening cut-off. This test was developed and its performance characteristics determined by [employer]. It has not been cleared or approved by the [place] Food and Drug Administration. This test was performed in a CLIA certified laboratory and is intended for clinical purposes. Performed By: #### C MIS #### [address] [address] [employer]: Antoine Wilson MD #### AAFPM #### [address] [address] [employer]: Antoine Wilson MD [facility] [address] [place], [place] [id number] [employer]: Nick Mills MD [age] [facility] Comment on above: Performed By: #### C MIS #### [address] [address] [employer]: Antoine Wilson MD #### AAFPM #### [address] [address] [employer]: Antoine Wilson MD [address] [phone] [employer]: Nick Mills MD Maternal Race Nonblack [facility] Comment on above: Performed By: #### C MIS #### [address] [address] [employer]: Antoine Wilson MD #### AAFPM #### [address] [address] [employer]: Antoine Wilson MD [address] [phone] [employer]: Nick Mills MD Maternal Weight 204.0 lbs. [facility] Comment on above: Performed By: #### C MIS #### [address] [address] [employer]: Antoine Wilson MD #### AAFPM #### [address] [address] [employer]: Antoine Wilson MD [facility] [address] [place] [address] [employer]: Nick Mills MD MoM for AFP 1.18 [facility] Comment on above: Performed By: #### C MIS #### [address] [address] [employer]: Antoine Wilson MD #### AAFPM #### [address] [address] [employer]: Antoine Wilson MD [address] [address] [employer]: Nick Mills MD Number of Fetuses Tate Normal [facility] Comment on above: Performed By: #### C MIS #### [address] [address] [employer]: Antoine Wilson MD #### AAFPM #### [address] [address] [employer]: Antoine Wilson MD [address] [address] [employer]: Nick Mills MD Patient's AFP 55 ng/mL Normal [facility] Comment on above: Performed By: #### C MIS #### [address] [id number] [employer]: Antoine Wilson MD #### AAFPM #### [address] [address] [employer] Se[employer]: Antoine Wilson MD [address] [address] [employer]elled Se[employer] Operator [employer]: Nick Mills MD Smoking Yes Normal [facility] Comment on above: Performed By: #### C MIS #### [address] [address] [employer]elled Se[employer] Operator [employer]: Antoine Wilson MD #### AAFPM #### [address] [address] Felled Se[employer] Operator [employer]: Antoine Wilson MD [facility] [address] [place] [address] Felled Seam Operator [employer]: Nick Mills MD Specimen See Note [facility] Comment on above: Result Comment: (NOT E) Initial sample Performed by [employer], [address] [facility] [place] [facility] [address] [email or web address], Noreen Zafar MD, Lab. Director Performed By: #### C MIS #### [facility] [address] [place] [address] Felled Se[employer]: Antoine Wilson MD #### AAFPM #### [address] [address] Felled Seam Operator [employer]: Antoine Wilson MD [address] [address] Felled Seam Operator [employer]: Nick Mills MD AFP, Maternalon 06-01-2021 Current Smoking YES Normal [facility] Comment on above: Performed By: #### C MIS #### [facility] [address] [address] Felled Seam Operator [employer]: Antoine Wilson MD #### AAFPM #### [facility] [address] [address] Felled Seam Operator [employer]: Antoine Wilson MD [address] [phone] Felled Se[employer] Operator [employer]: Nick Mills MD Dating LMP Normal [facility] Comment on above: Performed By: #### C MIS #### [facility] [address] [address] Felled Seam Operator [employer]: Antoine Wilson MD #### AAFPM #### [facility] [address] [address] Felled Seam Operator [employer]: Antoine Wilson MD [address] [address] Felled Seam Operator [employer]ch: Nick Mills MD Diabetic INFORMATION NOT PROVIDED [facility] Comment on above: Performed By: #### C MIS #### [facility] [address] [place] [address] F[employer] Se[employer]: Antoine Wilson MD #### AAFPM #### [address] [address] Felled Seam Operator [employer]: Antoine Wilson MD [facility] [address] [place] [address] Felled Seam Operator [employer]ch: Nick Mills MD Donor Egg NO [facility] Comment on above: Performed By: #### C MIS #### [address] [address] Felled Seam Operator [employer]: Antoine Wilson MD #### AAFPM #### [address] [address] Felled Seam Operator [employer]: Antoine Wilson MD [facility] [address] [place] [address] Felled Seam Operator Chainstitch: Nick Mills MD Estimated Due Date 10 21 2021 [facility] Comment on above: Performed By: #### C MIS #### [address] [address] Felled Seam Operator [employer]: Antoine Wilson MD #### AAFPM #### [address] [address] Felled Seam Operator [employer]: Antoine Wilson MD [facility] [address] [place] [address] Felled Seam Operator [employer]ch: Nick Mills MD Family History NO [facility] Comment on above: Performed By: #### C MIS #### [address] [address] Felled Seam Operator [employer]: Antoine Wilson MD #### AAFPM #### [address] [place] [address] Felled Seam Operator [employer]ch: Antoine Wilson MD [facility] [address] [place], [place] [id number] Felled Seam Operator Chainstitch: Nick Mills MD In [facility] [employer] [facility] Comment on above: Performed By: #### C MIS #### [address] [address] Felled Seam Operator [employer]ch: Antoine Wilson MD #### AAFPM #### [facility] [address] [place] [address] Felled Seam Operator [employer]: Antoine Wilson MD [facility] [address] [place], [place] [id number] Felled Seam Operator Chain[employer]ch: Nick Mills MD LMP date 01 14 2021 [facility] Comment on above: Performed By: #### C MIS #### [address] [address] Felled Seam Operator Chain[employer]ch: Antoine Wilson MD #### AAFPM #### [address] [address] Felled Seam Operator Chain[employer]ch: Antoine Wilson MD [address] [phone] Felled Seam Operator Chain[employer]ch: Nick Mills MD Maternal date 08 14 1997 [facility] Comment on above: Performed By: #### C MIS #### [facility] [address] [place] [address] Felled Seam Operator [employer]: Antoine Wilson MD #### AAFPM #### [facility] [address] [place] [address] Felled Seam Operator [employer]ch: Antoine Wilson MD [facility] [address] [place], [place] [id number] Felled Seam Operator [employer]ch: Nick Mills MD Maternal Weight 204 [facility] Comment on above: Performed By: #### C MIS #### [facility] [address] [place] [address] Felled Seam Operator [employer]: Antoine Wilson MD #### AAFPM #### [address] [address] Felled Seam Operator Chain[employer]ch: Antoine Wilson MD [facility] [address] [place] [address] Felled Seam Operator Chainstitch: Nick Mills MD Monochorionic Twins TATE Normal [facility] Comment on above: Performed By: #### C MIS #### [address] [address] Felled Seam Operator Chainstitch: Antoine Wilson MD #### AAFPM #### [address] [address] Felled Seam Operator [employer]ch: Antoine Wilson MD [address] [address] Felled Seam Operator Chainstitch: Nick Mills MD Patient Weight Units LBS Normal [facility] Comment on above: Performed By: #### C MIS #### [address] [address] Felled Seam Operator [employer]ch: Antoine Wilson MD #### AAFPM #### [address] [address] Felled Seam Operator Chain[employer]ch: Antoien Wilson MD [address] [address] Felled Seam Operator Chain[employer]ch: Nick Mills MD Race (Maternal) WHITE Normal [facility] Comment on above: Performed By: #### C MIS #### [address] [address] Felled Seam Operator [employer]ch: Antoine Wilson MD #### AAFPM #### [address] [address] Felled Seam Operator [employer]ch: Antoine Wilson MD [facility] [address] [place] [address] Felled Seam Operator Chain[employer]ch: Nick Mills MD Repeat Specimen INFORMATION NOT PROVIDED [facility] Comment on above: Performed By: #### C MIS #### [facility] [address] [place] [address] Felled Seam Operator [employer]ch: Antoine Wilson MD #### AAFPM #### [address] [address] Felled Seam Operator [employer]ch: Antoine Wilson MD [facility] [address] [place] [address] Felled Seam Operator Chainstitch: Nick Mills MD Valproic/Carbamazep INFORMATION NOT PROVIDED [facility] Comment on above: Performed By: #### C MIS #### [address] [address] Felled Seam Operator [employer]ch: Antoine Wilson MD #### AAFPM #### [address] [address] Felled Seam Operator Chain[employer]ch: Antoine Wilson MD [address] [address] Felled Seam Operator Chainstitch: MD [facility] 06-01-2021 Send Out Report [facility] [phone] [facility] Comment on above: Performed By: #### C MIS #### [address] [address] Felled Seam Operator Chainstitch: Antoine Wilson MD #### AAFPM #### [address] [address] Felled Seam Operator [employer]stitch: Antoine Wilson MD [facility] [address] [place] [address] Felled Seam Operator Chainstitch: MD Miguel De Los Santos 05-31-2021 Test Name [facility] Comment on above: Performed By: #### C MIS #### [address] [address] [place] [address] Felled Seam Operator Chainstitch: Antoine Wilson MD #### AAFPM #### [facility] [address] [place] [address] Felled Seam Operator Chainstitch: Antoine Wilson MD [address] [address] Felled Seam Operator Chain[employer]ch: Nick Mills MD COVID-19, Rapidon 05-22-2021 Interpretation and review of laboratory results Abnormal [facility] SARS-CoV-2 (COVID-19) RNA JAKE+probe Ql (Unsp spec) Detected Abnormal Not Detected [facility] Comment on above: Rapid NAAT: The specimen [...] this assay. Fact sheet for Healthcare Providers: https://www.fda.gov/media/271700/download Fact sheet for Patients: https://www.fda.gov/media/366054/download Methodology: Isothermal Nucleic Acid Amplification Results reported to the appropriate Health Department Specimen Description .NASOPHARYNGEAL SWAB [facility] Basic Metabolic Panelon 12-0 Anion gap [Moles/Vol] 14 mmol/L 9 - 17 mmol/L [facility] Calcium [Mass/Vol] 9.3 mg/dL 8.6 - 10. 4 mg/dL [facility] Chloride [Moles/Vol] 100 mmol/L 98 - 10 7 mmol/L [facility] CO2 [Moles/Vol] 19 mmol/L Low 20 - 31 mmol/L [facility] Creatinine [Mass/Vol] 0.48 mg/dL Low 0.50 - 0.90 mg/dL [facility] GFR >60 >60 mL/min [facility] GFR Non- >60 >60 mL/min [facility] GFR/1.73 sq M.predicted MDRD (S/P/Bld) [Vol rate/Area] [facility] Comment on above: Average GFR for 20-2 9 years old: 116 mL/min/1.73sq m Chronic Kidney Disease: <60 mL/min/1.73sq m Kidney failure: <15 mL/min/1.73sq m eGFR calculated using average adult body mass. Additional eGFR calculator available at: http://www.GameGround/multiple_crcl_2012.htm GFR/1.73 sq M.predicted MDRD (S/P/Bld) [Vol rate/Area] NOT REPORTED [facility] Glucose [Mass/Vol] 209 mg/dL High 70 - 99 mg/dL [facility] Interpretation and review of laboratory results Abnormal [facility] Potassium [Moles/Vol] 3.9 mmol/L 3.7 - 5.3 mmol/L [facility] Sodium [Moles/Vol] 133 mmol/L Low 135 - 144 mmol/L [facility] Urea nitrogen (BldV) [Mass/Vol] 7 mg/dL 6 - 20 mg/dL [facility] Urea nitrogen/Creatinine (Bld) [Mass ratio] 15 [facility] US OB 1ST TRIMESTER TRANSBDO BECKY ONLY [...] Doppler analysis. Somatic motion also noted by crew lead. Uterus measures 13.4 x 7.8 x 8.7 [...] ID: [id number] Dictated by: BLAINE CHIU on [place] Apr 01, 2021 8:19:34 PM EST Transcribed by: BLAINE CHIU on [place] Apr 01, 2021 8:19:34 PM EST Finalized by: BLAINE CHIU on [place] Apr 01, 2021 8:19:34 PM EST Normal [facility] Comment on above: Order Comment: Injur y/Trauma or Illness?:Illness/Other How long have you had these symptoms (acute/chronic)?:Acute Reason for exam?:vaginal bleeding, rt pelvic pain History of cancer?:na Surgeries, chemotherapy, or radiation?:na Type of Exam?:Initial Additional signs and symptoms?:n Microscopic UrinalysisOrdere d By: Braydon May on 02-10-2021 - [facility] Phone: Amorphous, UA NOT REPORTED None [employer] [facility] Work Phone: Bacteria, UA 1+ Abnormal None [facility] Work Phone: Casts UA NOT REPORTED /LPF [facility] Work Phone: Crystals, UA NOT REPORTED None /HPF [employer] [facility] Work Phone: Epithelial Cells UA 5 TO 10 /HPF [facility] Work Phone: Interpretation and review of laboratory results Abnormal [facility] Work Phone: Mucus, UA NOT REPORTED None [facility] Phone: Other Observations UA NOT REPORTED NOT REQ. [facility] Work Phone: RBC, UA 0 TO 2 [facility] Work Phone: Renal Epithelial, UA NOT REPORTED 0 /HPF [facility] Work Phone: Trichomonas, UA NOT REPORTED None [facility] Work Phone: WBC, UA 2 TO 5 0 /HPF [facility] Work Phone: Yeast, UA NOT REPORTED None [facility] Work Phone: [facility] Work Phone: UrinalysisOrdered By: Braydon May on 02-10-2021 Bilirubin Urine Negative NEGATIVE [facility] Work Phone: Color, UA Yellow Yellow [facility] Work Phone: Glucose, Ur Negative NEGATIVE [facility] Work Phone: Interpretation and review of laboratory results Abnormal [facility] Work Phone: Ketones Ql (U) Negative NEGATIVE [facility] Work Phone: Leukocyte esterase Test strip Ql (U) 2+ Abnormal NEGATIVE [facility] Work Phone: Nitrite, Urine Negative NEGATIVE [facility] Work Phone: pH, UA 6.0 [facility] Work Phone: Protein, UA Negative NEGATIVE [facility] Work Phone: Specific [place], UA 1.020 [facility] Work Phone: Turbidity UA Clear Clear [facility] Work Phone: Urinalysis Comments [facility] Work Phone: Urine Hgb 1+ Abnormal NEGATIVE [facility] Work Phone: Urobilinogen, Urine Normal Normal [facility] Work Phone: [facility] Work Phone: hCG, quantitative, Ordered By: Braydon Yadira on 02-10-2021 hCG Quant 160 High <5 IU/L [facility] Phone: Comment on above: Non-preg premeno <=5 Postmeno <=8 Male <=3 If HCG results do not concur with clinical observations, additional testing to confirm results is recommended. Elevated results not associated with may be found in patients with other diseases such as tumors of the germ cells (testis, ovaries, etc.), bladder, pancreas, stomach, lungs, and liver. Interpretation and review of laboratory results Abnormal [facility] Phone: [facility] Phone: CBC Auto DifferentialOrdered By: Bea Jacobs on 12-10-2020 Absolute Eos # 0.10 [employer] [facility] Work Phone: Absolute Immature Granulocyte NOT REPORTED [facility] Phone: Absolute Lymph # 1.80 [employer] Work Phone: Absolute Ida # 0.70 [employer] Work Phone: Basophils (Bld) [#/Vol] 0.10 10*3/uL [facility] Work Phone: Basophils/100 WBC (Bld) 1 % 0 - 2 % M [employer] Phone: Differential Type YES [employer] [facility] Work Phone: Eosinophils/100 WBC (Bld) 1 % 0 - 5 % [facility] Phone: Hematocrit (Bld) [Volume fraction] 42.8 % 36 - 46 % [facility] Phone: Hemoglobin.gastrointest inal spec 1 Ql (Stl) 14.6 g/dL 12.0 - 16.0 g/dL [facility] Phone: Immature Granulocytes NOT REPORTED 0 % M [employer] Phone: Interpretation and review of laboratory results Abnormal [facility] Phone: Lymphocytes/100 WBC (Bld) 16 % 15 - 40 % [facility] Work Phone: MCH (RBC) [Entitic mass] 30.0 pg 26 - 34 pg [facility] Phone: MCHC (RBC) [Mass/Vol] 34.2 g/dL 31 - 3 7 g/dL [facility] Phone: MCV (RBC) [Entitic vol] 87.8 fL 80 - 100 fL [facility] Phone: Monocytes/100 WBC (Bld) 6 % 4 - 8 % [facility] Work Phone: NRBC Automated NOT REPORTED per 100 WBC [facility] Work Phone: Platelet distribution width (Bld) [Ratio] 13.1 % 12.1 - 15.2 % [facility] Phone: Platelet Estimate NOT REPORTED [facility] Phone: Platelet mean volume (Bld) [Entitic vol] NOT REPORTED 6.0 - 12.0 fL [facility] Phone: Platelets (Bld) [#/Vol] 230 10*3/uL [facility] Phone: RBC (Bld) [#/Vol] 4.87 10*6/uL 4.0 - 5.2 m/uL [facility] Work Phone: RBC (Bld) [#/Vol] NOT REPORTED [facility] Phone: Segmented neutrophils/100 WBC (Bld) 76 % High 47 - 75 % [facility] Work Phone: Segs Absolute 8.80 High [employer] [facility] Work Phone: WBC (Bld) [#/Vol] 11.5 10*3/uL High [facility] Work Phone: WBC (Bld) [#/Vol] NOT REPORTED [facility] Phone: [facility] Phone: Comprehensive Metabolic Pane l w/ Reflex to MGOrdered By: Bea Jacobs on 12-10-2020 Albumin [Mass/Vol] 4.3 g/dL 3.5 - 5.2 g/dL [facility] Phone: Albumin/Globulin Ratio NOT REPORTED [facility] Phone: ALP (Bld) [Catalytic activity/Vol] 105 U/L High 35 - 104 U/L [facility] Phone: ALT [Catalytic activity/Vol] 17 U/L 5 - 33 U/L [facility] Phone: Anion gap [Moles/Vol] 12 mmol/L 9 - 17 mmol/L [facility] Phone: AST [Catalytic activity/Vol] 17 U/L <32 [facility] Phone: Bilirubin [Mass/Vol] 0.50 mg/dL 0.30 - 1.20 mg/dL [facility] Phone: Calcium [Mass/Vol] 9.3 mg/dL 8.6 - 10. 4 mg/dL [facility] Phone: Chloride [Moles/Vol] 105 mmol/L 98 - 10 7 mmol/L [facility] Phone: CO2 [Moles/Vol] 22 mmol/L 20 - 31 mmol/L [facility] Phone: Creatinine [Mass/Vol] 0.6 mg/dL 0.50 - 0.90 mg/dL [facility] Phone: Free PSA/Total PSA [Mass fraction] 7.3 g/dL 6.4 - 8.3 g/dL [facility] Phone: GFR >60 >60 mL/min [employer] Phone: GFR Non- >60 >60 mL/min [facility] Phone: GFR/1.73 sq M.predicted MDRD (S/P/Bld) [Vol rate/Area] [facility] Phone: Comment on above: Average GFR for 20-2 9 years old: 116 mL/min/1.73sq m Chronic Kidney Disease: <60 mL/min/1.73sq m Kidney failure: <15 mL/min/1.73sq m eGFR calculated using average adult body mass. Additional eGFR calculator available at: http://www.GameGround/My Damn Channel_crcl_2012.htm GFR/1.73 sq M.predicted MDRD (S/P/Bld) [Vol rate/Area] NOT REPORTED [facility] Phone: Glucose [Mass/Vol] 102 mg/dL High 70 - 99 mg/dL [facility] Phone: Interpretation and review of laboratory results Abnormal [facility] Phone: Potassium [Moles/Vol] 3.9 mmol/L 3.7 - 5.3 mmol/L [facility] Phone: Sodium [Moles/Vol] 139 mmol/L 135 - 144 mmol/L [facility] Phone: Urea nitrogen (BldV) [Mass/Vol] 15 mg/dL 6 - 20 mg/dL [facility] Phone: Urea nitrogen/Creatinine (Bld) [Mass ratio] 25 High [facility] Phone: [facility] Phone: HCG Qualitative, SerumOrdere d By: Bea Jacobs on 12-10-2020 hCG Qual Negative NEGATIVE [facility] Phone: Comment on above: Specimens with hCG l evels near the threshold of the test (25 mIU/mL) may give a negative or indeterminate result. In such cases, another test should be performed with a new specimen in 48-72 hours. If early is suspected clinically in this setting, correlation with quantitative serum b-hCG level is suggested. [employer] has confirmed the use of plasma for this test. This has not been cleared or approved by the U.S. Food and Drug Administration. The FDA has determined that such clearance is not necessary. [facility] Phone: Acetaminophen Levelon 2020 Acetaminophen [Mass/Vol] <5 Low 10 - 30 ug/mL [facility] Phone: Interpretation and review of laboratory results Abnormal [facility] Phone: Basic Metabolic Panelon 07-05 Anion gap [Moles/Vol] 11 mmol/L 9 - 17 mmol/L [facility] Phone: Bun/Cre Ratio 27 High [employer] Work Phone: Calcium [Mass/Vol] 9.4 mg/dL 8.6 - 10. 4 mg/dL [facility] Phone: Chloride [Moles/Vol] 104 mmol/L 98 - 10 7 mmol/L [facility] Phone: CO2 [Moles/Vol] 26 mmol/L 20 - 31 mmol/L [facility] Phone: Creatinine [Mass/Vol] 0.71 mg/dL 0.50 - 0.90 mg/dL [facility] Phone: GFR >60 >60 mL/min [employer] Phone: GFR Non- >60 >60 mL/min [facility] Phone: GFR/1.73 sq M predicted among non-blacks MDRD (S/P/Bld) [Vol rate/Area] NOT REPORTED [facility] Phone: GFR/1.73 sq M predicted among non-blacks MDRD (S/P/Bld) [Vol rate/Area] [facility] Phone: Comment on above: Average GFR for 20-2 9 years old: 116 mL/min/1.73sq m Chronic Kidney Disease: <60 mL/min/1.73sq m Kidney failure: <15 mL/min/1.73sq m eGFR calculated using average adult body mass. Additional eGFR calculator available at: http://www.GameGround/My Damn Channel_crcl_2012.htm Glucose [Mass/Vol] 113 mg/dL High 70 - 99 mg/dL [facility] Phone: Potassium [Moles/Vol] 4.0 mmol/L 3.7 - 5.3 mmol/L [facility] Phone: Sodium [Moles/Vol] 141 mmol/L 135 - 144 mmol/L [facility] Phone: Urea nitrogen [Mass/Vol] 19 mg/dL 6 - 20 mg/dL [facility] Phone: CBC Auto Differentialon 03-3 0-2020 Basophils (Bld) [#/Vol] 0.10 10*3/uL [facility] Phone: Basophils/100 WBC (Bld) 1 % 0 - 2 % [facility] Phone: Differential Type YES [facility] Work Phone: Eosinophils (Bld) [#/Vol] 0.10 10*3/uL [facility] Phone: Eosinophils/100 WBC (Bld) 1 % 0 - 5 % [facility] Phone: Erythrocyte distribution width (RBC) [Ratio] 13.3 % 12.1 - 15.2 % [facility] Phone: Hematocrit (Bld) [Volume fraction] 40.7 % 36 - 46 % [facility] Phone: Hemoglobin (Bld) [Mass/Vol] 13.8 g/dL 12.0 - 16.0 g/dL [facility] Phone: Interpretation and review of laboratory results Abnormal [facility] Phone: Lymphocytes (Bld) [#/Vol] 3.10 10*3/uL [facility] Phone: Lymphocytes/100 WBC (Bld) 28 % 15 - 40 % [facility] Phone: MCH (RBC) [Entitic mass] 30.1 pg 26 - 34 pg [facility] Phone: MCHC (RBC) [Mass/Vol] 33.8 g/dL 31 - 3 7 g/dL [facility] Phone: MCV (RBC) [Entitic vol] 88.8 fL 80 - 100 fL [facility] Phone: Monocytes (Bld) [#/Vol] 0.50 10*3/uL [facility] Phone: Monocytes/100 WBC (Bld) 5 % 4 - 8 % M [employer] Work Phone: Platelet mean volume (Bld) [Entitic vol] NOT REPORTED 6.0 - 12.0 fL [facility] Phone: Platelets (Bld) [#/Vol] 203 10*3/uL [facility] Phone: Platelets (Bld) [#/Vol] NOT REPORTED [facility] Phone: RBC (Bld) [#/Vol] 4.59 10*6/uL 4.0 - 5.2 m/uL [facility] Phone: RBC morphology finding Nom (Bld) NOT REPORTED [facility] Phone: Segmented neutrophils/100 WBC (Bld) 65 % 47 - 75 % [facility] Work Phone: Segs Absolute 7.30 High [employer] Work Phone: WBC (Bld) [#/Vol] 11.0 10*3/uL [facility] Phone: WBC (Bld) [#/Vol] NOT REPORTED per 100 WBC [employer] Phone: WBC Morphology NOT REPORTED [facility] Work Phone: COVID-19, Rapidon 08-01-2020 SARS-CoV-2, Rapid Not Detected Not Detected [facility] Phone: Comment on above: Rapid NAAT: The [...] management decisions. Fact sheet for Healthcare Providers: https://www.fda.gov/media/409278/download Fact sheet for Patients: https://www.fda.gov/media/156470/download Methodology: Isothermal Nucleic Acid Amplification Specimen Description .NASOPHARYNGEAL SWAB [facility] Phone: Ethanolon 8 Ethanol [Mass/Vol] mg/dL <10 mg/dL [facility] Phone: Ethanol percent <0.010 % [facility] Work Phone: HCG Qualitative, Serumon hCG Qual Negative NEGATIVE [facility] Phone: Comment on above: Specimens with hCG l evels near the threshold of the test (25 mIU/mL) may give a negative or indeterminate result. In such cases, another test should be performed with a new specimen in 48-72 hours. If early is suspected clinically in this setting, correlation with quantitative serum b-hCG level is suggested. [employer] has confirmed the use of plasma for this test. This has not been cleared or approved by the U.S. Food and Drug Administration. The FDA has determined that such clearance is not necessary. Otheron 08-01-2020 Interpretation and review of laboratory results Abnormal [facility] [employer] Phone: Immature granulocytes (Bld) [#/Vol] NOT REPORTED [facility] Work Phone: Salicylateon 08-01-2020 Salicylate Lvl <1 Low 3 - 10 mg/dL [facility] Phone: TSH with Reflexon 08-01-2020 TSH Qn 3.16 m[IU]/L [facility] Phone: Urine Drug Screenon 08-02-19 Amphetamine Screen, Ur Negative NEGATIVE [facility] Work Phone: Comment on above: (Positive cutoff 500 ng/mL) Barbiturate Screen, Ur Negative NEGATIVE [facility] Work Phone: Comment on above: (Positive cutoff 200 ng/mL) Benzodiazepine Screen, Urine Negative NEGATIVE [facility] [employer] Phone: Comment on above: (Positive cutoff 150 ng/mL) Buprenorphine Urine NOT REPORTED NEGATIVE [facility] Work Phone: Cannabinoid Scrn, Ur Negative NEGATIVE [facility] Work Phone: Comment on above: (Positive cutoff 50 ng/mL) Cocaine Metabolite, Urine Negative NEGATIVE [facility] Work Phone: Comment on above: (Positive cutoff 150 ng/mL) MDMA, Urine NOT REPORTED NEGATIVE [facility] [employer] Work Phone: Methadone Screen, Urine Negative NEGATIVE [facility] Work Phone: Comment on above: (Positive cutoff 200 ng/mL) Methamphetamine, Urine Negative NEGATIVE [facility] Work Phone: Comment on above: (Positive cutoff 500 ng/mL) Opiates, Urine Negative NEGATIVE [facility] Work Phone: Comment on above: (Positive cutoff 100 ng/mL) Oxycodone Screen, Ur Negative NEGATIVE [facility] Work Phone: Comment on above: (Positive cutoff 100 ng/mL) Phencyclidine, Urine Negative NEGATIVE [facility] Work Phone: Comment on above: (Positive cutoff 25 ng/mL) Propoxyphene, Urine Negative NEGATIVE [facility] Work Phone: Comment on above: (Positive cutoff 300 ng/mL) Test Information NOT REPORTED [facility] Work Phone: Tricyclic Antidepressants, Urine Negative NEGATIVE [facility] Work Phone: Comment on above: (Positive cutoff 300 ng/mL) Drug screen results are to be used for medical purposes only. All positive results are unconfirmed. Testing for employment or legal uses should be sent to a reference laboratory for confirmation. CBC Auto Differentialon 01-03 Basophils (Bld) [#/Vol] 0.00 10*3/uL [place] Basophils/100 WBC (Bld) 1 % 0 - 2 % [place] Differential Type YES [place] Eosinophils (Bld) [#/Vol] 0.10 10*3/uL [place] Eosinophils/100 WBC (Bld) 2 % 0 - 5 % [place] Erythrocyte distribution width (RBC) [Ratio] 13.4 % 12.1 - 15.2 % [place] Hematocrit (Bld) [Volume fraction] 44.9 % 36 - 46 % [place] Hemoglobin (Bld) [Mass/Vol] 15.0 g/dL 12 - 16 g/dL [place] Lymphocytes (Bld) [#/Vol] 1.30 10*3/uL [place] Lymphocytes/100 WBC (Bld) 17 % 15 - 40 % [place] MCH (RBC) [Entitic mass] 29.7 pg 26 - 34 pg [place] MCHC (RBC) [Mass/Vol] 33.4 g/dL 31 - 3 7 g/dL [place] MCV (RBC) [Entitic vol] 88.9 fL 80 - 100 fL [place] Monocytes (Bld) [#/Vol] 0.40 10*3/uL [place] Monocytes/100 WBC (Bld) 5 % 4 - 8 % [place] Platelet mean volume (Bld) [Entitic vol] NOT REPORTED 6 - 12 fL [place] Platelets (Bld) [#/Vol] NOT REPORTED [place] Platelets (Bld) [#/Vol] 231 10*3/uL [place] RBC (Bld) [#/Vol] 5.05 10*6/uL 4 - 5.2 m/uL [place] RBC morphology finding Nom (Bld) NOT REPORTED [place] Segmented neutrophils/100 WBC (Bld) 75 % 47 - 75 % [place] Segs Absolute 5.80 [place] WBC (Bld) [#/Vol] 7.7 10*3/uL [place] WBC (Bld) [#/Vol] NOT REPORTED per 100 WBC [place] WBC Morphology NOT REPORTED [place] Comprehensive Metabolic Pane nick 01-18-2020 Albumin [Mass/Vol] 4.6 g/dL 3.5 - 5.2 g/dL [place] Albumin/Globulin [Mass ratio] NOT REPORTED [place] ALP [Catalytic activity/Vol] 101 U/L 35 - 104 U/L [place] ALT [Catalytic activity/Vol] 21 U/L 5 - 33 U/L [place] Anion gap [Moles/Vol] 10 mmol/L 9 - 17 mmol/L [place] AST [Catalytic activity/Vol] 20 U/L <32 [place] Bilirubin Ql (U) 0.55 mg/dL 0.3 - 1.2 mg/dL [place] Bun/Cre Ratio 18 [place] Calcium [Mass/Vol] 9.2 mg/dL 8.6 - 10. 4 mg/dL [place] Chloride [Moles/Vol] 106 mmol/L 98 - 10 7 mmol/L [place] CO2 [Moles/Vol] 24 mmol/L 20 - 31 mmol/L [place] Creatinine [Mass/Vol] 0.74 mg/dL 0.5 - 0.9 mg/dL [place] GFR >60 >60 mL/min [place] GFR Non- >60 >60 mL/min [place] GFR/1.73 sq M predicted among non-blacks MDRD (S/P/Bld) [Vol rate/Area] [place] Comment on above: Average GFR for 20-2 9 years old: 116 mL/min/1.73sq m Chronic Kidney Disease: <60 mL/min/1.73sq m Kidney failure: <15 mL/min/1.73sq m eGFR calculated using average adult body mass. Additional eGFR calculator available at: http://www.[employer]/multiple_crcl_2012.htm GFR/1.73 sq M predicted among non-blacks MDRD (S/P/Bld) [Vol rate/Area] NOT REPORTED [place] Glucose [Mass/Vol] 124 mg/dL High 70 - 99 mg/dL [place] Interpretation and review of laboratory results Abnormal [place] Potassium [Moles/Vol] 4.1 mmol/L 3.7 - 5.3 mmol/L [place] Protein [Mass/Vol] 8.5 g/dL High 6.4 - 8.3 g/dL [place] Sodium [Moles/Vol] 140 mmol/L 135 - 144 mmol/L [place] Urea nitrogen [Mass/Vol] 13 mg/dL 6 - 20 mg/dL [place] Otheron 01-18-2020 Immature granulocytes (Bld) [#/Vol] NOT REPORTED 0 % [place] TSH with Reflexon 01-18-2020 TSH Qn 1.30 m[IU]/L [place] Basic Metabolic Panel w/ Ref stephy to MGon 04-06-2019 Anion gap [Moles/Vol] 13 mmol/L 9 - 17 mmol/L [place] Bun/Cre Ratio 19 [place] Calcium [Mass/Vol] 9.7 mg/dL 8.6 - 10. 4 mg/dL [place] Chloride [Moles/Vol] 102 mmol/L 98 - 10 7 mmol/L [place] CO2 [Moles/Vol] 23 mmol/L 20 - 31 mmol/L [place] Creatinine [Mass/Vol] 0.58 mg/dL 0.5 - 0.9 mg/dL [place] GFR >60 >60 mL/min [place] GFR Non- >60 >60 mL/min [place] GFR/1.73 sq M predicted among non-blacks MDRD (S/P/Bld) [Vol rate/Area] NOT REPORTED [place] GFR/1.73 sq M predicted among non-blacks MDRD (S/P/Bld) [Vol rate/Area] [place] Comment on above: Average GFR for 20-2 9 years old: 116 mL/min/1.73sq m Chronic Kidney Disease: <60 mL/min/1.73sq m Kidney failure: <15 mL/min/1.73sq m eGFR calculated using average adult body mass. Additional eGFR calculator available at: http://www.[employer]/multiple_crcl_2012.htm Glucose [Mass/Vol] 115 mg/dL High 70 - 99 mg/dL [place] Interpretation and review of laboratory results Abnormal [place] Potassium [Moles/Vol] 3.9 mmol/L 3.7 - 5.3 mmol/L [place] Sodium [Moles/Vol] 138 mmol/L 135 - 144 mmol/L [place] Urea nitrogen [Mass/Vol] 11 mg/dL 6 - 20 mg/dL [place] CBC Auto Differentialon 12-0 Basophils (Bld) [#/Vol] 0.00 10*3/uL [place] Basophils/100 WBC (Bld) 0 % 0 - 2 % [place] Differential Type YES [place] Eosinophils (Bld) [#/Vol] 0.10 10*3/uL [place] Eosinophils/100 WBC (Bld) 2 % 0 - 5 % [place] Erythrocyte distribution width (RBC) [Ratio] 12.7 % 12.1 - 15.2 % [place] Hematocrit (Bld) [Volume fraction] 46.4 % High 36 - 46 % [place] Hemoglobin (Bld) [Mass/Vol] 15.5 g/dL 12 - 16 g/dL [place] Interpretation and review of laboratory results Abnormal [place] Lymphocytes (Bld) [#/Vol] 1.30 10*3/uL [place] Lymphocytes/100 WBC (Bld) 20 % 15 - 40 % [place] MCH (RBC) [Entitic mass] 29.7 pg 26 - 34 pg [place] MCHC (RBC) [Mass/Vol] 33.4 g/dL 31 - 3 7 g/dL [place] MCV (RBC) [Entitic vol] 89.0 fL 80 - 100 fL [place] Monocytes (Bld) [#/Vol] 0.50 10*3/uL [place] Monocytes/100 WBC (Bld) 8 % 4 - 8 % [place] Platelet mean volume (Bld) [Entitic vol] NOT REPORTED 6 - 12 fL [place] Platelets (Bld) [#/Vol] NOT REPORTED [place] Platelets (Bld) [#/Vol] 194 10*3/uL [place] RBC (Bld) [#/Vol] 5.22 10*6/uL High 4 - 5.2 m/uL [place] RBC morphology finding Nom (Bld) NOT REPORTED [place] Segmented neutrophils/100 WBC (Bld) 70 % 47 - 75 % [place] Segs Absolute 4.40 [facility] [place] WBC (Bld) [#/Vol] 6.4 10*3/uL [place] WBC (Bld) [#/Vol] NOT REPORTED per 100 WBC [place] WBC Morphology NOT REPORTED [facility] [place] D-Dimer, Quantitativeon 12- D-Dimer, Quant 0.21 [facility] [place] Comment on above: Elevated levels of [...] HCG Qualitative, Serumon hCG Qual Negative NEGATIVE [place] Comment on above: Specimens with hCG l evels near the threshold of the test (25 mIU/mL) may give a negative or indeterminate result. In such cases, another test should be performed with a new specimen in 48-72 hours. If early is suspected clinically in this setting, correlation with quantitative serum b-hCG level is suggested. [employer] has confirmed the use of plasma for this test. This has not been cleared or approved by the U.S. Food and Drug Administration. The FDA has determined that such clearance is not necessary. Otheron 04-06-2019 Immature granulocytes (Bld) [#/Vol] NOT REPORTED [place] XR CHEST STANDARD (2 VW)on 06-07-2018 Negative chest. [place] EXAM: XR CHEST (2 VW ) HISTORY: Reason for exam:->SOB COMPARISON: Chest 12/05/2018. TECHNIQUE: 2 views chest FINDINGS: Heart size normal. Lungs clear. Bony thorax and upper abdomen normal. [place], [facility] Incoming Radiant Results From [facility] - 04/06/2019 2:50 PM EST EXAM: XR CHEST (2 VW) HISTORY: Reason for exam:->SOB COMPARISON: Chest 12/05/2018. TECHNIQUE: 2 views chest FINDINGS: Heart size normal. Lungs clear. Bony thorax and upper abdomen normal. IMPRESSION: Negative chest. [facility] [place] Metabolic Pane nick 11-12-2017 Alanine aminotransferase (ALT) 22 U/L Normal 14-65 [facility] Comment on above: This test [...] ####Unless otherwise noted, all testing performed by [place] [phone]: [id number] Director: Diego Hamilton M.D. Albumin 3.7 g/dL Normal 3.2-5.2 [facility] Comment on above: Performed By: #### C MET ####Unless otherwise noted, all testing performed by [place] [phone]: [id number] Director: Diego Hamilton M.D. Alkaline phosphatase (ALP) 99 U/L Normal 40-140 [facility] Comment on above: Performed By: #### C MET ####Unless otherwise noted, all testing performed by [address] [phone]: [id number] Director: Diego Hamilton M.D. Aspartate aminotransferase (AST) 11 U/L Normal 0-45 [facility] Comment on above: This test [...] ####Unless otherwise noted, all testing performed by [address]CLIA: [id number] Director: Diego Hamilton M.D. Bilirubin (total) 0.2 mg/dL Low 0.3-1.2 [facility] Comment on above: Performed By: #### C MET ####Unless otherwise noted, all testing performed by [address]CLIA: [id number] Director: Diego Hamilton M.D. Calcium 9.0 mg/dL Normal 8.4-10.2 [facility] Comment on above: Performed By: #### C MET ####Unless otherwise noted, all testing performed by [address]CLIA: [id number] Director: Diego Hamilton M.D. Chloride 109 mmol/L High 98-108 [facility] Comment on above: Performed By: #### C MET ####Unless otherwise noted, all testing performed by [address]CLIA: [id number] Director: Diego Hamilton M.D. CO2 28 mmol/L Normal 21-32 [facility] Comment on above: Performed By: #### C MET ####Unless otherwise noted, all testing performed by [place] [phone]: [id number] Director: Diego Hamilton M.D. Creatinine 0.94 mg/dL Normal 0.40-1.10 [facility] Comment on above: Performed By: #### C MET ####Unless otherwise noted, all testing performed by [address], [place] [phone]: [id number] Director: Diego Hamilton M.D. eGFR (black) mL/min/{1.73_m2} Normal [facility] Comment on above: GFR Calc Result Comment: Afri can [place] GFR Calc Performed By: #### C MET ####Unless otherwise noted, all testing performed by [address] [phone]: [id number] Director: Diego Hamilton M.D. eGFR (non-black) mL/min/{1.73_m2} Normal [facility] Comment on above: Non- GFR Calc [...] ####Unless otherwise noted, all testing performed by [address], [place] [phone]: [id number] Director: Diego Hamilton M.D. Glucose mass conc 102 mg/dL High 70-99 [facility] Comment on above: This test [...] ####Unless otherwise noted, all testing performed by [address] [phone]: [id number] Director: Diego Hamilton M.D. Interpretation and review of laboratory results Abnormal Invalid Interpretation Code [facility] Potassium molar conc 4.0 mmol/L Normal 3.5-5.1 [facility] Comment on above: Performed By: #### C MET ####Unless otherwise noted, all testing performed by [address] [phone]: [id number] Director: Diego Hamilton M.D. Protein 7.0 g/dL Normal 6.0-8.0 [facility] Comment on above: Performed By: #### C MET ####Unless otherwise noted, all testing performed by [address] [phone]: [id number] Director: Diego Hamilton M.D. Sodium 143 mmol/L Normal 135-145 [facility] Comment on above: Performed By: #### C MET ####Unless otherwise noted, all testing performed by [address] [phone]: [id number] Director: Diego Joy, M.D. Urea nitrogen 17 mg/dL Normal 8-25 [facility] Comment on above: Performed By: #### C MET ####Unless otherwise noted, all testing performed by [address] [phone]: [id number] Director: Diego Hamilton M.D. Preg test, Urine Qualon 11-02 Preg Test, Urine Qual Negative Invalid Interpretation Code Negative [facility] Comment on above: Rapid test [...] ( test) Ql (U) Negative Normal Negative [facility] Comment on above: Result Comment: Rapi [...] ####Unless otherwise noted, all testing performed by [address], [place] [phone]: [id number] Director: Diego Hamilton M.D. Urinalysison 11-12-2017 Bilirubin, Urine Negative Normal NEG;NEGATIV E [facility] Comment on above: Performed By: #### P REGUR, UA ####Unless otherwise noted, all testing performed by [address] [phone]: [id number] Director: Diego Hamilton M.D. Blood, Urine Negative Normal NEG;NEGATIV E [facility] Comment on above: Performed By: #### P REGUR, UA ####Unless otherwise noted, all testing performed by [address] [phone]: [id number] Director: Diego Hamilton M.D. Character Clear Normal [facility] Comment on above: Performed By: #### P REGUR, UA ####Unless otherwise noted, all testing performed by [place] [phone]: [id number] Director: Diego Hamilton M.D. Interpretation and review of laboratory results Abnormal Invalid Interpretation Code [facility] Nitrite, Urine Negative Normal NEG;NEGATIV E [facility] Comment on above: Performed By: #### P REGUR, UA ####Unless otherwise noted, all testing performed by [address] [phone]: [id number] Director: Diego Hamilton M.D. Protein, Urine 30 mg/dL High < 30 [facility] Comment on above: Performed By: #### P REGUR, UA ####Unless otherwise noted, all testing performed by [address] [phone]: [id number] Director: Diego Hamilton M.D. RBCs, Urine < 1 Invalid Interpretation Code 0 - 5 /HPF [facility] Specific [place] 1.024 1 Invalid Interpretation Code 1.003 - 1.029 [facility] Squamous Epithelial 4 /HPF Invalid Interpretation Code 0 - 40 [facility] Urine, color Yellow Normal [facility] Comment on above: Performed By: #### P REGUR, UA ####Unless otherwise noted, all testing performed by [address] [phone]: [id number] Director: Diego Hamilton M.D. Urine, glucose presence Negative Normal NEG; NEGATIV E [facility] Comment on above: Performed By: #### P REGUR, UA ####Unless otherwise noted, all testing performed by [address] [phone]: [id number] Director: Diego Hamilton M.D. Urine, ketones presence Negative Invalid Interpretation Code NEG;NEGATIV E mg/dL [facility] Urine, leukocyte esterase presence Negative Invalid Interpretation Code Negative [facility] Urine, pH 5.0 [pH] Normal 4.5-8.0 [facility] Comment on above: Performed By: #### P REGUR, UA ####Unless otherwise noted, all testing performed by [address] [phone]: [id number] Director: Diego Hamilton M.D. Urobilinogen, Urine < 2.0 Normal <2 [facility] Comment on above: Performed By: #### P REGUR, UA ####Unless otherwise noted, all testing performed by [address] [phone]: [id number] Director: Diego Hamilton M.D. WBCs, Urine 1 /HPF Invalid Interpretation Code 0 - 5 [facility] Urinalysis, Routineon 2017 Ketone,Urine Negative Normal NEG;NEGATIV E [facility] Comment on above: Performed By: #### P REGUR, UA ####Unless otherwise noted, all testing performed by [place] [phone]: [id number] Director: Diego Hamilton M.D. Leuk.Esterase,Urine Negative Normal Negative [facility] Comment on above: Performed By: #### P REGUR, UA ####Unless otherwise noted, all testing performed by [address] [phone]: [id number] Director: Diego Hamilton M.D. Specific [place],Urine 1.024 Normal 1.003-1.029 [facility] Comment on above: Performed By: #### P REGUR, UA ####Unless otherwise noted, all testing performed by [address] [phone]: [id number] Director: Diego Hamilton M.D. Squamous Epithelial 4 /HPF Normal 0-40 [facility] Comment on above: Performed By: #### P REGUR, UA ####Unless otherwise noted, all testing performed by [address] [phone]: [id number] Director: Diego Hamilton M.D. Urine, erythrocytes in sediment by area /[HPF] Normal 0-5 [facility] Comment on above: Performed By: #### P REGUR, UA ####Unless otherwise noted, all testing performed by [address] [phone]: [id number] Director: Diego Hamilton M.D. WBC,Urine 1 /HPF Normal 0-5 [facility] Comment on above: Performed By: #### P REGUR, UA ####Unless otherwise noted, all testing performed by [address] [phone]: [id number] Director: Diego Hamilton M.D. CBC and Differentialon 11-11 Basophils Auto #/vol (Bld) 0.0 K/mcL Invalid Interpretation Code 0 - 0.2 [facility] Basophils/100 WBC Auto (Bld) 0.3 % Normal [facility] Comment on above: Performed By: #### C BCDIF, EXCEP, LIPASE ####Unless otherwise noted, all testing performed by [address] [phone]: [id number] Director: Diego Hamilton M.D. Eosinophils 0.1 K/mcL Invalid Interpretation Code 0 - 0.5 [facility] Eosinophils/100 leukocytes 0.6 % Normal [facility] Comment on above: Performed By: #### C BCDIF, EXCEP, LIPASE ####Unless otherwise noted, all testing performed by [address] [phone]: [id number] Director: Diego Hamilton M.D. Erythrocyte distribution width Auto Ratio (RBC) 13.2 % Normal 10.0-14.4 [facility] Comment on above: Performed By: #### C BCDIF, EXCEP, LIPASE ####Unless otherwise noted, all testing performed by [address] [phone]: [id number] Director: Diego Hamilton M.D. Erythrocytes (RBC) 5.13 M/mcL High 3.7 - 5.0 [facility] Hematocrit (HCT) 47.0 % High 34.4-44.8 [facility] Comment on above: Performed By: #### C BCDIF, EXCEP, LIPASE ####Unless otherwise noted, all testing performed by [address] [phone]: [id number] Director: Diego Hamilton M.D. Hemoglobin mass conc (Bld) 15.3 g/dL Normal 11.6-15.4 [facility] Comment on above: Performed By: #### C BCDIF, EXCEP, LIPASE ####Unless otherwise noted, all testing performed by [place] [phone]: [id number] Director: Diego Hamilton M.D. Lymphocytes 1.5 K/mcL Invalid Interpretation Code 1.0 - 3.7 [facility] Lymphocytes/100 leukocytes 12.1 % Normal [facility] Comment on above: Performed By: #### C BCDIF, EXCEP, LIPASE ####Unless otherwise noted, all testing performed by [place] [phone]: [id number] Director: Diego Hamilton M.D. MCH 29.8 pg Normal 27.9-33.9 [facility] Comment on above: Performed By: #### C BCDIF, EXCEP, LIPASE ####Unless otherwise noted, all testing performed by [address] [phone]: [id number] Director: Diego Hamilton M.D. MCHC mass conc (RBC) 32.6 g/dL Low 33.1-35.1 [facility] Comment on above: Performed By: #### C BCDIF, EXCEP, LIPASE ####Unless otherwise noted, all testing performed by [address] [phone]: [id number] Director: Diego Hamilton M.D. MCV 91.5 fL Normal 82.6-98.9 [facility] Comment on above: Performed By: #### C BCDIF, EXCEP, LIPASE ####Unless otherwise noted, all testing performed by [address] [phone]: [id number] Director: Diego Hamilton M.D. Monocytes 0.6 K/mcL Invalid Interpretation Code 0.1 - 0.6 [facility] Monocytes/100 leukocytes 5.1 % Normal [facility] Comment on above: Performed By: #### C BCDIF, EXCEP, LIPASE ####Unless otherwise noted, all testing performed by [address] [phone]: [id number] Director: Diego Hamilton M.D. Neutrophils 10.0 K/mcL High 1.2 - 6.9 [facility] Platelet mean volume (PMV) 11.1 fL High 7.0-10.6 [facility] Comment on above: Performed By: #### C BCDIF, EXCEP, LIPASE ####Unless otherwise noted, all testing performed by [address] [phone]: [id number] Director: Diego Hamilton M.D. Platelets 235 K/mcL Invalid Interpretation Code 162 - 402 [facility] Segmented Neut 81.9 % Invalid Interpretation Code [facility] WBC (Leukocytes) 12.2 K/mcL High 3.4 - 10.6 [facility] CBC with Diffon 11-11-2017 Basophils Auto #/vol (Bld) 0.0 K/mcL Normal 0-0.2 [facility] Comment on above: Performed By: #### C BCDIF, EXCEP, LIPASE ####Unless otherwise noted, all testing performed by [address] [phone]: [id number] Director: Diego Hamilton M.D. Eosinophils 0.1 K/mcL Normal 0-0.5 [facility] Comment on above: Performed By: #### C BCDIF, EXCEP, LIPASE ####Unless otherwise noted, all testing performed by [address]CLIA: [id number] Director: Diego Hamilton M.D. Erythrocytes (RBC) 5.13 M/mcL High 3.7-5.0 [facility] Comment on above: Performed By: #### C BCDIF, EXCEP, LIPASE ####Unless otherwise noted, all testing performed by [address]CLIA: [id number] Director: Diego Hamilton M.D. Lymphocytes 1.5 K/mcL Normal 1.0-3.7 [facility] Comment on above: Performed By: #### C BCDIF, EXCEP, LIPASE ####Unless otherwise noted, all testing performed by [address]CLIA: [id number] Director: Diego Hamilton M.D. Monocytes 0.6 K/mcL Normal 0.1-0.6 [facility] Comment on above: Performed By: #### C BCDIF, EXCEP, LIPASE ####Unless otherwise noted, all testing performed by [place] [address] [address] [facility].[place], [place] [phone]: [id number] Director: Diego Hamilton M.D. Neutrophils 10.0 K/mcL High 1.2-6.9 [facility] Comment on above: Performed By: #### C BCDIF, EXCEP, LIPASE ####Unless otherwise noted, all testing performed by [address] [phone]: [id number] Director: Diego Hamilton M.D. Platelets 235 K/mcL Normal 162-402 [facility] Comment on above: Performed By: #### C BCDIF, EXCEP, LIPASE ####Unless otherwise noted, all testing performed by [address] [phone]: [id number] Director: Diego Hamilton M.D. Segmented Neut % 81.9 % Normal [facility] Comment on above: Performed By: #### C BCDIF, EXCEP, LIPASE ####Unless otherwise noted, all testing performed by [address] [phone]: [id number] Director: Diego Hamilton M.D. WBC (Leukocytes) 12.2 K/mcL High 3.4-10.6 [facility] Comment on above: Performed By: #### C BCDIF, EXCEP, LIPASE ####Unless otherwise noted, all testing performed by [address] [phone]: [id number] Director: Diego Hamilton M.D. Exception Noticeon 8 Exception Notice Complete Metabolic Panel cancelled due to hemolysis. Will be redrawn. Normal [facility] Comment on above: Performed By: #### C BCDIF, EXCEP, LIPASE ####Unless otherwise noted, all testing performed by [address] [phone]: [id number] Director: Diego Hamilton M.D. Lipaseon 11-11-2017 Interpretation and review of laboratory results Abnormal Invalid Interpretation Code [facility] Lipase 52 U/L Low 73-393 [facility] Comment on above: Performed By: #### C BCDIF, EXCEP, LIPASE ####Unless otherwise noted, all testing performed by [address] [phone]: [id number] Director: Diego Hamilton M.D. US TRANSVAGINAL WITH [...] amount of free fluid, likely physiologic. Normal [facility] Vital Signs Date Time Vital Sign Value Performing Clinician Dylan manley 07-29-2023 13:08-0400 Body height 162.6 cm Dana Mcdonough MD Work Phone: [employer] 07-29-2023 13:08-0400 Body mass index (BMI) [Ratio] 38.21 kg/m2 Dana Mcdonough MD [facility] 07-29-2023 13:08-0400 Body weight 100.97 kg Dana [facility]cdonough MD [facility] 07-29-2023 13:08-0400 Diastolic blood pressure 64 mm[Hg] Dana Mcdonough MD [facility] 07-29-2023 13:08-0400 Heart rate 88 /min Dana Mcdonough MD Work [facility]: [facility] 07-29-2023 13:08-0400 Systolic blood pressure 105 mm[Hg] Dana [facility]cdonough MD [facility] 12-19-2022 10:04-0400 Body mass index (BMI) [Ratio] 39.51 kg/m2 Matthew Tafoya MD Work Phone: [employer] 12-19-2022 10:04-0400 Body temperature 98.29 [degF] Matthew Tafoya MD Work Phone: [employer] 12-19-2022 10:04-0400 Body weight 104.42 kg Matthew Tafoya MD Work Phone: [employer] 12-19-2022 10:04-0400 Diastolic blood pressure 82 mm[Hg] Matthew Tafoya MD Work Phone: [employer] 12-19-2022 10:04-0400 Heart rate 106 /min Matthew Tafoya MD Work Phone: [employer] 12-19-2022 10:04-0400 Respiratory rate 16 /min Matthew Tafoya MD Work Phone: [facility] [employer] 12-19-2022 10:04-0400 SaO2% (BldA) [Mass fraction] 95 % Matthew Tafoya MD Work Phone: [employer] 12-19-2022 10:04-0400 Systolic blood pressure 119 mm[Hg] Matthew Tafoya MD Work Phone: [facility] 12-06-2022 13:24-0400 Body temperature 98.42 [degF] Grahamnabila Choe [facility] 12-06-2022 13:24-0400 Diastolic blood pressure 75 mm[Hg] Graham Choe [facility] 12-06-2022 13:24-0400 Heart rate 95 /min Grahamnabila Choe [facility] 12-06-2022 13:24-0400 Mean blood pressure 95 mm[Hg] Grahamnabila Choe [facility] 12-06-2022 13:24-0400 Respiratory rate 18 /min Graham Choe [facility] 12-06-2022 13:24-0400 SaO2% (BldA) [Mass fraction] 96 % Grahamnabila Choe [facility] 12-06-2022 13:24-0400 Systolic blood pressure 136 mm[Hg] Grahamnabila Choe [facility] 06-16-2022 01:37-0500 Body height 162.6 cm Hoang Santos MD Work Phone: [facility] 06-16-2022 01:37-0500 Body mass index (BMI) [Ratio] 39.94 kg/m2 Hoang Santos MD Work Phone: [facility] 06-16-2022 01:37-0500 Body temperature 98.01 [degF] Hoang Santos MD Work Phone: [facility] [employer] 06-16-2022 01:37-0500 Body weight 105.55 kg Hoang Santos MD Work Phone: [facility] 06-16-2022 01:37-0500 Diastolic blood pressure 77 mm[Hg] Hoang Santos MD Work Phone: [facility] [employer] 06-16-2022 01:37-0500 Heart rate 88 /min Hoang Santos MD Work Phone: [facility] [employer] 06-16-2022 01:37-0500 Respiratory rate 16 /min Hoang Santos MD Work Phone: [facility] [employer] 06-16-2022 01:37-0500 SaO2% (BldA) [Mass fraction] 98 % Hoang Santos MD Work Phone: [facility] [employer] 06-16-2022 01:37-0500 Systolic blood pressure 122 mm[Hg] Hoang Santos MD Work Phone: [facility] [employer] 03-13-2022 09:30-0500 Body height 162.6 cm Bea Jacobs MD Work Phone: [facility] [employer] 03-13-2022 09:30-0500 Body mass index (BMI) [Ratio] 37.81 kg/m2 Bea Jacobs MD Work Phone: [facility] [employer] 03-13-2022 09:30-0500 Body temperature 98.2 [degF] Bea Jacobs MD Work Phone: [facility] [employer] 03-13-2022 09:30-0500 Body weight 99.93 kg Bea Jacobs MD Work Phone: [facility] [employer] 03-13-2022 09:30-0500 Diastolic blood pressure 72 mm[Hg] Bea Jacobs MD Work Phone: [facility] [employer] 03-13-2022 09:30-0500 Heart rate 76 /min Bea Jacobs MD Work Phone: [facility] [employer] 03-13-2022 09:30-0500 Respiratory rate 18 /min Bea Jacobs MD Work Phone: [facility] [employer] 03-13-2022 09:30-0500 SaO2% (BldA) [Mass fraction] 96 % Bea Jacobs MD Work Phone: [facility] 03-13-2022 09:30-0500 Systolic blood pressure 116 mm[Hg] Bea Jacobs MD Work Phone: [facility] 11-29-2021 14:37-0400 Diastolic blood pressure 69 mm[Hg] Bea Jacobs MD Work Phone: [facility] [employer] 11-29-2021 14:37-0400 Heart rate 80 /min Bea Jacobs MD Work Phone: [facility] [employer] 11-29-2021 14:37-0400 SaO2% (BldA) [Mass fraction] 96 % Bea Jacobs MD Work Phone: [facility] [employer] 11-29-2021 14:37-0400 Systolic blood pressure 112 mm[Hg] Bea Jacobs MD Work Phone: [facility] [employer] 11-29-2021 14:36-0400 Body height 162.6 cm Bea Jacobs MD Work Phone: [facility] [employer] 11-29-2021 14:36-0400 Body mass index (BMI) [Ratio] 36.39 kg/m2 Bea Jacobs MD Work Phone: [facility] [employer] 11-29-2021 14:36-0400 Body temperature 99.5 [degF] Bea Jacobs MD Work Phone: [facility] [employer] 11-29-2021 14:36-0400 Body weight 96.16 kg Bea Jacobs MD Work Phone: [facility] [employer] 11-29-2021 14:36-0400 Respiratory rate 18 /min Bea Jacobs MD Work Phone: [facility] [employer] 05-22-2021 14:29-0500 Body mass index (BMI) [Ratio] 32.89 kg/m2 Hoang Santos MD Work Phone: [employer] 05-22-2021 14:29-0500 Body temperature 99.5 [degF] Hoang Santos MD Work Phone: [employer] 05-22-2021 14:29-0500 Body weight 92.44 kg Hoang Santos MD Work Phone: [employer] 05-22-2021 14:29-0500 Diastolic blood pressure 61 mm[Hg] Hoang Santos MD Work Phone: [employer] 05-22-2021 14:29-0500 Heart rate 97 /min Hoang Santos MD Work Phone: [employer] 05-22-2021 14:29-0500 Respiratory rate 18 /min Hoang Santos MD Work Phone: [employer] 05-22-2021 14:29-0500 SaO2% (BldA) [Mass fraction] 96 % Hoang Santos MD Work Phone: [employer] 05-22-2021 14:29-0500 Systolic blood pressure 117 mm[Hg] Hoang Santos MD Work Phone: [employer] 04-12-2021 18:20-0500 Body temperature 98.6 [degF] Dana Redman MD Work Phone: [employer] 04-12-2021 18:20-0500 Diastolic blood pressure 75 mm[Hg] Dana Redman MD Work Phone: [employer] 04-12-2021 18:20-0500 Heart rate 92 /min Dana Redman MD Work Phone: [employer] 04-12-2021 18:20-0500 Respiratory rate 20 /min Dana Redman MD Work Phone: [employer] 04-12-2021 18:20-0500 SaO2% (BldA) [Mass fraction] 96 % Dana Redman MD Work Phone: [employer] 04-12-2021 18:20-0500 Systolic blood pressure 118 mm[Hg] Dana Redman MD Work Phone: [employer] 04-12-2021 18:18-0500 Body height 167.6 cm Dana Redman MD Work Phone: [employer] 04-12-2021 18:18-0500 Body mass index (BMI) [Ratio] 32.28 kg/m2 Dana Redman MD Work Phone: [employer] 04-12-2021 18:18-0500 Body weight 90.72 kg Dana Redman MD Work Phone: [employer] 02-10-2021 17:39-0400 Body temperature 99.1 [degF] Braydon Mya MD Work Phone: [employer] Work Phone: 02-10-2021 17:27-0400 Body height 162.6 cm Braydon May MD Work Phone: [employer] Work Phone: 02-10-2021 17:27-0400 Body mass index (BMI) [Ratio] 37.75 kg/m2 Braydon May MD Work Phone: [employer] Work Phone: 02-10-2021 17:27-0400 Body weight 99.75 kg Braydon May MD Work Phone: [employer] Work Phone: 02-10-2021 17:27-0400 Diastolic blood pressure 84 mm[Hg] Braydon May MD Work Phone: [employer] Work Phone: 02-10-2021 17:27-0400 Heart rate 83 /min Braydon May MD Work Phone: [employer] Work Phone: 02-10-2021 17:27-0400 Respiratory rate 20 /min Braydon May MD Work Phone: [employer] Work Phone: 02-10-2021 17:27-0400 SaO2% (BldA) [Mass fraction] 95 % Braydon May MD Work Phone: [employer] Work Phone: 02-10-2021 17:27-0400 Systolic blood pressure 128 mm[Hg] Braydon May MD Work Phone: [employer] Work Phone: 12-10-2020 19:54-0400 Diastolic blood pressure 63 mm[Hg] Bae Jacobs MD Work Phone: [employer] Work Phone: 12-10-2020 19:54-0400 SaO2% (BldA) [Mass fraction] 97 % Bea Jacobs MD Work Phone: [employer] Work Phone: 12-10-2020 19:54-0400 Systolic blood pressure 111 mm[Hg] Bea Jacobs MD Work Phone: [employer] Phone: 08-01-2020 18:44-0400 BMI (Body Mass Index) 33.47 kg/m2 Noelneetu Reynaldo [employer] Phone: 08-01-2020 18:44-0400 Body Temperature 97.9 [degF] Bea Jacobs [employer] Work Phone: 08-01-2020 18:44-0400 Body weight 88.45 kg Noelneetu Reynaldo [employer] Phone: 08-01-2020 18:44-0400 BP Diastolic 72 mm[Hg] Bea Jacobs [employer] Work Phone: 08-01-2020 18:44-0400 BP Systolic 127 mm[Hg] Bea Jacobs [employer] Work Phone: 08-01-2020 18:44-0400 Height 162.6 cm [facility] Work Phone: 08-01-2020 18:44-0400 Pulse (Heart Rate) 93 /min Bea Jacobs [facility] Work Phone: 08-01-2020 18:44-0400 Pulse Oximetry 99 % [facility] Work Phone: 08-01-2020 18:44-0400 Respiratory Rate 16 /min [facility] Work Phone: 01-04-2020 12:33-0400 BMI (Body Mass Index) 32.96 kg/m2 [facility] 01-04-2020 12:33-0400 Body Temperature 98.1 [degF] [facility] 01-04-2020 12:33-0400 Body weight 87.09 kg [facility] 01-04-2020 12:33-0400 BP Diastolic 63 mm[Hg] [facility] 01-04-2020 12:33-0400 BP Systolic 115 mm[Hg] [facility] 01-04-2020 12:33-0400 Height 162.6 cm [facility] 01-04-2020 12:33-0400 Pulse (Heart Rate) 83 /min [facility] 01-04-2020 12:33-0400 Pulse Oximetry 97 % [facility] 12-23-2019 21:12-0400 BMI (Body Mass Index) 32.96 kg/m2 [facility] 12-23-2019 21:12-0400 Body Temperature 98.71 [degF] [facility], MD 12-23-2019 21:12-0400 Body weight 87.09 kg [facility], MD 12-23-2019 21:12-0400 BP Diastolic 69 mm[Hg] [facility] , MD 12-23-2019 21:12-0400 BP Systolic 129 mm[Hg] [facility] 12-23-2019 21:12-0400 Pulse (Heart Rate) 102 /min [facility] 12-23-2019 21:12-0400 Pulse Oximetry 100 % Hoang Santos [facility], MD 12-23-2019 21:12-0400 Respiratory Rate 18 /min [facility] 10-22-2019 12:21-0400 BMI (Body Mass Index) 33.3 kg/m2 [facility], MD 10-22-2019 12:21-0400 Body Temperature 98.8 [degF] Arin Celeste [facility], MD 10-22-2019 12:21-0400 Body weight 88 kg Arin Carter [facility] , MD 10-22-2019 12:21-0400 BP Diastolic 67 mm[Hg] [facility] 10-22-2019 12:21-0400 BP Systolic 113 mm[Hg] [facility] 10-22-2019 12:21-0400 Height 162.6 cm Arin Carter [facility] , MD 10-22-2019 12:21-0400 Pulse (Heart Rate) 77 /min Arin Carter [facility], MD 10-22-2019 12:21-0400 Pulse Oximetry 98 % Arin Carter [facility] , MD 10-22-2019 12:21-0400 Respiratory Rate 18 /min Arin Celeste [facility], MD 04-06-2019 13:49-0500 Pulse Oximetry 98 % Bea Jacobs [facility], MD 04-06-2019 13:39-0500 BP Diastolic 92 mm[Hg] Bea Jacobs [facility], MD 04-06-2019 13:39-0500 BP Systolic 119 mm[Hg] Bea Jacobs [facility], MD 04-06-2019 13:37-0500 Body Temperature 97.59 [degF] Bea Jacobs [facility], MD 04-06-2019 13:37-0500 Body weight 84.82 kg Bea Jacobs [facility], MD 04-06-2019 13:37-0500 Pulse (Heart Rate) 77 /min [facility] 04-06-2019 13:37-0500 Respiratory Rate 16 /min [facility] En[facility] Encounter Date Encounter Type Care Provider Facility Start: 11-20-2023 End: 11-20-2023 ambulatory [facility] Start: 11-20-2023 End: 11-20-2023 ambulatory LOY R [facility] Start: 11-18-2023 End: 11-18-2023 ambulatory LOY YOGI Not Available Start: 11-12-2023 End: 11-12-2023 ambulatory [facility] Start: 11-04-2023 End: 11-04-2023 ambulatory LOY YOGI Not Available Start: 11-02-2023 End: 11-02-2023 ambulatory HARMONY Lee [facility] Start: 10-31-2023 End: 11-03-2023 Evaluation and management of inpatient ZAYRA Squires KIMBLE [facility] Start: 10-31-2023 End: 10-31-2023 ambulatory HERMAN URRUTIA [facility] Start: 10-31-2023 End: 10-31-2023 ambulatory [facility] Start: 10-22-2023 ambulatory Redd Dueñas [facility]ility[facility] Start: 10-20-2023 End: 10-20-2023 ambulatory LOY YOGI Not Available Start: 10-13-2023 End: 10-13-2023 Emergency department patient visit GAYE Carrasco [facility] Start: 10-09-2023 End: 10-09-2023 Emergency department patient visit [facility] Start: 08-29-2023 End: 08-29-2023 ambulatory [facility] Start: 08-18-2023 End: 08-18-2023 ambulatory [facility] Start: 07-29-2023 End: 07-29-2023 Office outpatient new 45 minutes Dana Mcdonough MD Work Phone: [facility] Comment on above: Type 2 diabetes ashley itus affecting in second trimester, antepartum (Primary Dx); Twin , dichorionic/diamniotic, second trimester; Obesity affecting in second trimester, unspecified obesity type; Bipolar disease during in second trimester ([facility]); Post traumatic stress disorder; Tobacco smoking affecting in second trimester Start: 07-29-2023 End: 07-29-2023 Orders Only Dawit Carter [facility] Comment on above: Type 2 diabetes ashley itus affecting in second trimester, antepartum (Primary Dx); Twin , dichorionic/diamniotic, second trimester; Bipolar disease during in second trimester ([facility]) Start: 07-29-2023 End: 07-30-2023 ambulatory ROSA ROCHA [facility] Start: 07-24-2023 Telephone encounter Thuy CRESPO [facility] Start: 07-15-2023 Telephone encounter Rosa crane RN Work Phone: [facility] Start: 07-09-2023 Orders Only Not In System Ref Prov [facility] Start: 06-30-2023 End: 06-30-2023 ambulatory LOY YOGI Not Available Start: 05-30-2023 End: 05-30-2023 ambulatory LOY YOGI Not Available Start: 05-15-2023 End: 05-15-2023 ambulatory LOY YOGI Not Available Start: 04-01-2023 End: 04-01-2023 Emergency department patient visit [facility] Start: 02-13-2023 End: 02-13-2023 ambulatory [facility] Start: 12-22-2022 End: 12-22-2022 Emergency department patient visit [facility] Start: 12-19-2022 End: 12-19-2022 Emergency department patient visit Matthew Tafoya MD Work Phone: [facility] Comment on above: Acute cystitis witho ut hematuria (Primary Dx); Vaginal yeast infection Start: 12-06-2022 End: 12-06-2022 Emergency department patient visit Graham Choe Facility[facility] Start: 12-06-2022 End: 12-06-2022 Emergency department patient visit Graham Choe [facility] Start: 06-16-2022 End: 06-16-2022 Emergency department patient visit Hoang Santos MD Work Phone: [facility] Comment on above: Nausea and vomiting, unspecified vomiting type (Primary Dx); Intractable headache, unspecified chronicity pattern, unspecified headache type Start: 03-13-2022 End: 03-13-2022 Emergency department patient visit Bea Jacobs MD Work Phone: [facility] Comment on above: Acute midline low ba ck pain without sciatica (Primary Dx) Start: 11-29-2021 End: 11-29-2021 Emergency department patient visit Bea Jacobs MD Work Phone: [facility] Comment on above: Hordeolum externum [...] Start: 05-31-2021 End: 06-01-2021 ambulatory DAVID LEZAMA [facility] Start: 05-22-2021 End: 05-22-2021 Emergency department patient visit Hoang Santos MD Work Phone: [facility] Comment on above: COVID-19 virus infec tion (Primary Dx); Second trimester Start: 04-12-2021 End: 04-12-2021 Emergency department patient visit Dana Redman MD Work Phone: [facility] Comment on above: Depression during pr egnancy in first trimester (Primary Dx); Dehydration Start: 04-01-2021 End: 04-01-2021 Emergency department patient visit [facility] Start: 03-25-2021 End: 03-25-2021 Emergency department patient visit [facility] Start: 02-10-2021 End: 02-10-2021 Emergency department patient visit Braydon May MD Work Phone: [facility] Comment on above: Threatened miscarria ge in early (Primary Dx) Start: 12-10-2020 End: 12-10-2020 Emergency department patient visit Bea Jacobs MD Work Phone: [facility] Comment on above: Symptoms of dehydrat ion (Primary Dx); Nausea vomiting and diarrhea Start: 08-02-2020 End: 08-07-2020 Evaluation and management of inpatient [facility] Start: 08-01-2020 End: 08-02-2020 Emergency department patient visit Bea Jacobs Work Phone: [facility] Comment on above: Suicidal thoughts (P rimary Dx); Depression with suicidal ideation Start: 05-22-2020 End: 05-26-2020 Patient encounter procedure [facility] Start: 03-22-2020 End: 03-26-2020 Patient encounter procedure [facility] Start: 01-18-2020 End: 01-18-2020 Subsequent hospital visit by physician Perla Rm [facility] Laboratory Comment on above: Palpitations Start: 01-04-2020 End: 01-04-2020 Patient encounter procedure [facility] Start: 01-04-2020 End: 01-04-2020 Office outpatient visit 25 minutes [facility] Work Phone: [facility] Comment on above: Anxious depression ( Primary Dx); Smoker; Weight gain; Fatigue, unspecified type; Screening cholesterol level Start: 12-23-2019 End: 12-23-2019 Emergency department patient visit Hoang Santos Work Phone: [facility] Comment on above: Bronchitis (Primary Dx) Start: 11-22-2019 End: 11-22-2019 Patient encounter procedure [facility] Start: 11-12-2019 End: 11-12-2019 Patient encounter procedure [facility] Start: 11-01-2019 End: 11-01-2019 Subsequent hospital visit by physician GUIDO Laboratory Comment on above: Exposure to COVID-19 virus; Cough in adult patient Start: 10-22-2019 End: 10-22-2019 Emergency department patient visit Arin Carter Work Phone: [facility] Comment on above: Acute bronchitis, un specified organism (Primary Dx); Tobacco abuse; Encounter for laboratory testing for COVID-19 virus Start: 04-06-2019 End: 04-06-2019 Emergency department patient visit Bea Danilo Reynaldo Work Phone: [facility] Comment on above: Bronchitis (Primary Dx); Acute sinusitis, recurrence not specified, unspecified location Start: 11-11-2017 End: 11-12-2017 Emergency department patient visit Aicha Méndez Facility:[place] Start: 11-11-2017 End: 11-11-2017 Ambulatory [place] Maryjo Romerooh Work Phone: [facility] Start: 01-20-2017 Ambulatory [facility] Start: 01-16-2017 Ambulatory [facility] Procedures Date Procedure Procedure Detail Performing [...] Blood count complete auto&auto difrntl wbc Perla mR Work Phone: Start: 01-18-2020 Comprehensive metabo lic [...] trimester Bipolar disease during in second trimester ([facility]) Expected: 07/28/2024 (Approximate), Expires: 07[facility]28[facility]2024 [facility]: Comment on above: Expected: 07/28/2024 (Approximate), Expires: 07/28/2024 Start: 08-29-2023 End: 08-29-2023 Patient encounter procedure 08/29/2023 1:00 PM EDT Appointment [facility] [address] [place] [phone] [facility] Start: 07-29-2023 End: 07-29-2023 Patient encounter procedure [facility] Start: 07-15-2023 End: 07-15-2023 Patient encounter procedure 07/15/2023 2:00 PM EDT Office Visit [facility] [address] [place] [phone] Gaby Bustillos, PA-C [address] [place] [id number] [facility] Start: 07-15-2023 End: 07-15-2023 ambulatory 07/15/2023 1:00 PM EDT Support Visit [facility] [address] [place] [phone] Rosa Rocha RN [address] [facility], [address] [place] [id number] Carmen Cheung LD [facility] Start: 03-22-2023 Screening for malign ant neoplasm of cervix Pap smear [facility] Start: 01-03-2023 Influenza vaccination Influenza Vacc [facility] Start: 12-03-2022 Influenza vaccination Flu vaccine (# 1) [facility] Start: 03-29-2022 Screening for Chlamy deisy trachomatis [facility] Start: 01-03-2022 Influenza vaccination Flu vaccine (# 1) [facility] Start: 12-03-2021 Influenza vaccination Flu vaccine (# 1) [facility] Start: 05-31-2021 End: 05-31-2021 Patient encounter procedure 05/31/2021 Routine Perinatology [facility] Start: 01-17-2021 Depression Monitoring Depression Sapphire valle [facility] Start: 01-03-2021 Influenza vaccination Flu vaccine (# 1) [facility] Start: 04-04-2020 End: 01-03-2021 Complete blood count with white cell differential, manual CBC and Differential Lab Routine Fatigue, unspecified type Expected: 04/04/2020 (Approximate), Expires: 01/03/2021 [facility] Comment on above: Expected: 04/04/2020 (Approximate), Expires: 01/03/2021 Start: 04-04-2020 End: 01-03-2021 Comprehensive metabolic 2000 panel Comprehensive Metabolic Panel Lab Routine Fatigue, unspecified type Expected: 04/04/2020 (Approximate), Expires: 01/03/2021 [facility] Comment on above: Expected: 04/04/2020 (Approximate), Expires: 01/03/2021 Start: 04-04-2020 End: 01-03-2021 Magnesium [Mass/Vol] Magnesium Level Lab Routine Fatigue, unspecified type Expected: 04/04/2020 (Approximate), Expires: 01/03/2021 [facility] Comment on above: Expected: 04/04/2020 (Approximate), Expires: 01/03/2021 Start: 02-18-2020 End: 02-18-2020 Office Visit 02/18/2020 Office Visit Family Medicine Perla Rm, DO [address] [place] [id number] [facility] Start: 02-15-2020 End: 02-15-2020 Office Visit 02/15/2020 Office Visit Primary Care Juanito Hernandez MD [facility] Danielle Schofield [place], [place] [id number] [facility] Cardiology and Primary Care Start: 01-04-2020 Influenza vaccination [place], [place] Start: 01-04-2020 Influenza vaccinatio n given Sequential Influenza Vaccine (#1) [facility] Start: 12-12-2019 DTaP,Tdap and Td Vaccines (7 - Td or Tdap) DTaP,Tdap and Td Vaccines (7 - Td or Tdap) [facility] Start: 12-12-2019 DTaP/Tdap/Td vaccine (7 - Td or Tdap) DTaP/Tdap/Td vaccine (7 - Td or Tdap) [facility] Start: 07-16-2019 Screening for Chlamy deisy trachomatis Chlamydia Screening [facility] Start: 01-03-2019 Influenza vaccination Flu vaccine (# 1) [place], [place] Start: 2018 Cervical cancer screen Cervical canc er screen [place], [place] Start: 2018 Screening for malign ant neoplasm of cervix [facility] Start: 2016 DTaP,Tdap and Td Vaccines (1 - Tdap) DTaP,Tdap and Td Vaccines (1 - Tdap) [facility] Start: 2016 DTaP/Tdap/Td vaccine (1 - Tdap) DTaP/Tdap/Td vaccine (1 - Tdap) [facility] Start: 08-15-2015 Adult BMI Follow Up Plan Adult BMI Follow Up Plan [facility] Start: 08-15-2015 Adult BMI Screening Adult BMI Screen ing [facility] Start: 08-15-2015 Diabetic foot examination Diabetic Foot Exam [facility] Start: 08-15-2015 Hepatitis C screening Hepatitis C sc reen [facility] Start: 2013 Chlamydia screen Chlamydia screen [place], [place] Start: 2013 COVID-19 Vaccine (1) COVID-19 Vaccin e (1) [facility] Work Phone: Start: 2013 Screening for Chlamy deisy trachomatis Chlamydia screen [facility] Start: 2012 HIV screen HIV screen [place], [place] Start: 2012 HIV screening HIV screen [facility] Start: 03-05-2010 Varicella vaccine (2 of 2 - 2-dose childhood series) Varicella vaccine (2 of 2 - 2-dose childhood series) [facility] Start: 2009 COVID-19 Vaccine (1) COVID-19 Vaccin e (1) [facility] Start: 2009 Depression Monitoring Depression Mon [facility] Start: 2009 [facility]: [facility] Tobacco Screening Tobacco Screening [facility] Start: 2008 DTaP/Tdap/Td vaccine (1 - Tdap) DTaP/Tdap/Td vaccine (1 - Tdap) [place] Start: 2008 HPV vaccine (1 - 2-d ose series) HPV vaccine (1 - 2-dose series) [facility] Start: 2008 HPV vaccine (1 - Fem man 2-dose series) HPV vaccine (1 - Female 2-dose series) [place], [place] Start: 2008 Vaccination for maria del carmen n papillomavirus HPV Vaccines (1 - 2-dose series) [facility] Start: 08-15-2003 Pneumococcal 0-64 ye ars Vaccine (1 - PCV) Pneumococcal 0-64 years Vaccine (1 - PCV) [facility] Start: 08-15-2003 Pneumococcal 0-64 ye ars Vaccine (1 of 1 - PPSV23) Pneumococcal 0-64 years Vaccine (1 of 1 - PPSV23) [place] Start: 08-15-2003 Pneumococcal 0-64 ye ars Vaccine (1 of 2 - PPSV23) Pneumococcal 0-64 years Vaccine (1 of 2 - PPSV23) [facility] Start: 2002 COVID-19 Vaccine (1) COVID-19 Vaccin e (1) [facility] Start: 2000 History and physical examination, annual for health maintenance Wellness Visit [facility] Start: 1998 Varicella Vaccine (1 of 2 - 2-dose childhood series) Varicella Vaccine (1 of 2 - 2-dose childhood series) [facility] Start: 02-13-1998 COVID-19 Vaccine (#1) COVID-19 Vacci ne (#1) [facility] Start: 1997 Depression screening using PHQ-9 (Patient Health Questionnaire 9) score Depression Screening (PHQ9) [facility] Start: 1997 Glaucoma screening Diabetic Op hthalmology Exam [facility] Start: 1997 Hepatitis C [facility] Start: 1997 Screening for malign ant neoplasm of cervix Pap Smear [facility] Start: 1997 Tetanus vaccination Tetanus: Every 1 0yrs [facility] Start: 1997 Tobacco Counseling Tobacco Counselin g [facility] Start: 1997 Urine screening for protein Urine Microalbumin [facility] End: 01-03-2021 Cholesterol [Mass/Vol] Cholesterol, Total Lab Routine Screening cholesterol level 1 Occurrences starting 01/04/2020 until 01/03/2021 [facility] Comment on above: 1 Occurrences starti ng 01/04/2020 until 01/03/2021 End: 10-22-2019 COVID-19 COVID-19 Lab Routine One Time for 1 Occurrences starting 10/22/2019 until 10/22/2019 [place] Comment on above: One Time for 1 Occur rences starting 10/22/2019 until 10/22/2019 End: 11-01-2019 Covid-19 Ambulatory Covid-19 Ambulatory Lab Routine Exposure To Covid-19 Virus Cough in adult patient 1 Occurrences starting 11/01/2019 until 11/01/2019 [facility] MD Comment on above: 1 Occurrences starti ng 11/01/2019 until 11/01/2019 Covid-19 Ambulatory Covid-19 Amb ulatory Lab Routine Exposure to COVID-19 virus Cough in adult patient 11/01/2019 11:25 AM EDT [facility] MD End: 02-10-2021 Culture, Urine Culture, Urine Microbiology Routine Once for 1 Occurrences starting 02/10/2021 until 02/10/2021 [employer] Work Phone: Comment on above: Once for 1 Occurrenc es starting 02/10/2021 until 02/10/2021 Culture, Urine Culture, Urine Microbiology Routine 02/10/2021 5:41 PM EDT [employer] Work Phone: End: 12-19-2022 Culture, Urine [facility] basno Comment on above: Once for 1 Occurrenc es starting 12/19/2022 until 12/19/2022 End: 10-22-2019 MDI Treatment MDI Treatment Respiratory Care Routine One Time for 1 Occurrences starting 10/22/2019 until 10/22/2019 [facility] MD Comment on above: One Time for 1 Occur rences starting 10/22/2019 until 10/22/2019 MDI Treatment MDI Treatment Respiratory Care Routine Every 6hr As Needed until discontinued starting 10/22/2019 [facility] MD Comment on above: Every 6hr As Needed until discontinued starting 10/22/2019 End: 01-03-2021 TSH Qn TSH with Reflex Free T4 Lab Routine Weight gain Fatigue, unspecified type 1 Occurrences starting 01/04/2020 until 01/03/2021 [facility] Comment on above: 1 Occurrences starti ng 01/04/2020 until 01/03/2021 Immunizations Immunization Date Immunization Notes Care Provider Nupur west 03-02-2012 influenza virus vaccine, unspecified formulation Dawit Carter [facility] [employer] [facility] NEGATED: Highlighted row has not occurred!06-13-2020 influenza virus vaccine, unspecified formulation Graham Choe [facility] Payers Date Payer Category Payer Medicaid [employer] [facility] [place] [place] [id number] 2023-Present [phone] [address] [place] [address] [id number] 2023 Medicaid [id number] 2019 Unknown [id number] 2018 Medicaid [id number] 2018 Unknown [id number] 2018 Unknown [id number] 2015 Unknown [id number] 2014 Unknown [id number] 2014 Unknown [employer] [id number] 2014-Present Indemnity [id number] [id number].3.6 [id number] 1997 Unknown [id number] 2.16.840.1.463388.3.579.2.903 1997 Unknown [id number] 2.16.840.1.297212.3.579.2.900 1997 Unknown [id number] 2.16.840.1.031468.3.579.2.176 1997 Unknown [id number] 2.16.840.1.114728.3.579.2.903 1997 Unknown [id number] 2.16.840.1.433689.3.579.2.903 1997 Unknown [id number] 2.16.840.1.933591.3.579.2.175 1997 Unknown [id number] 2.16.840.1.190347.3.579.2.593 1997 Unknown [id number] 2.16.840.1.580666.3.579.2.593 1997 Unknown [id number] 2.16.840.1.954238.3.579.2.593 1997 Unknown [id number] 2.16.840.1.993258.3.579.2.593 1997 Unknown [id number] 2.16.840.1.208917.3.579.2.593 1997 Unknown [id number] 2.16.840.1.094118.3.579.2.593 1997 Unknown [id number] 2.16.840.1.725783.3.579.2.593 1997 Unknown [id number] 2.16.840.1.724298.3.579.2.593 1997 Unknown [id number] 2.16.840.1.415082.3.579.2.593 1997 Unknown [id number] 2.16.840.1.104383.3.579.2.593 1997 Unknown [id number] 2.16.840.1.243920.3.579.2.593 1997 Unknown [id number] 2.16.840.1.774608.3.579.2.593 1997 Unknown [id number] 2.16.840.1.801191.3.579.2.593 1997 Unknown [id number] 2.16.840.1.087315.3.579.2.593 1997 Unknown [id number] 2.16.840.1.335153.3.579.2.593 1997 Unknown [id number] 2.16.840.1.839219.3.579.2.593 1997 Unknown [id number] 2.16.840.1.901299.3.579.2.593 1997 Unknown [id number] 2.16.840.1.096010.3.579.2.593 1997 Unknown [id number] 2.16.840.1.999200.3.579.2.593 1997 Unknown [id number] 2.16.840.1.684636.3.579.2.593 1997 Unknown [id number] 2.16.840.1.939571.3.579.2.593 1997 Unknown [id number] 2.16.840.1.125690.3.579.2.593 1997 Unknown [id number] 2.16.840.1.673385.3.579.2.593 1997 Unknown [id number] 2.16.840.1.461842.3.579.2.727 1997 Unknown [id number] 2.16.840.1.850258.3.579.2.174 1997 Unknown [id number] 2.16.840.1.593931.3.579.2.174 1997 Unknown [id number] 2.16.840.1.789942.3.579.2.174 1997 Unknown [id number] 2.16.840.1.056796.3.579.2.174 1997 Unknown [id number] 2.16.840.1.248604.3.579.2.174 1997 Unknown [id number] 2.16.840.1.914333.3.579.2.174 1997 Unknown [id number] 2.16.840.1.846862.3.579.2.903 1997 Unknown [id number] 2.16.840.1.630298.3.579.2.1259 1997 Unknown [id number] 2.16.840.1.091832.3.579.2.1259 1997 Unknown [id number] 2.16.840.1.064231.3.579.2.1259 1997 Unknown [id number] 2.16.840.1.008611.3.579.2.9 1997 Unknown [id number] 2.16.840.1.568098.3.579.2.1258 1997 Unknown [id number] 2.16.840.1.197483.3.579.2.9 1997 Unknown [id number] 2.16.840.1.314395.3.579.2.1285 1997 Unknown [id number] 2.16.840.1.401558.3.579.2.1285 1997 Unknown [id number] 2.16.840.1.083809.3.579.2.1285 1997 Unknown [id number] 2.16.840.1.976375.3.579.2.1285 1997 Unknown [id number] 2.16.840.1.109096.3.579.2.1285 1997 Unknown [id number] 2.16.840.1.349877.3.579.2.1285 1997 Unknown [id number] 2.16.840.1.180254.3.579.2.1285 1997 Unknown [id number] 2.16.840.1.376804.3.579.2.1285 1997 Unknown [id number] 2.16.840.1.912968.3.579.2.1285 1997 Unknown [id number] 2.16.840.1.849097.3.579.2.1285 1997 Unknown [id number] 2.16.840.1.089696.3.579.2.6 1959 Self-pay [id number] 1959 Self-pay 1959 Unknown [id number] 1.2.840.935710.1.13.239.2.7.3.6 93250.315 Social History Date Type Detail Facility Tobacco smoking status NYIS Unknown if ever smoked [facility] Start: 1997 Sex Assigned At [facility] file [facility] Start: 04-06-2019 End: 07-29-2023 Tobacco smoking status NHIS [facility] use [facility] Start: 04-06-2019 End: 07-29-2023 Cigarettes smoked current (pack per day) - Reported [facility] Start: 04-06-2019 End: 07-29-2023 Alcohol intake Ex-drinker (finding) [facility] Start: 04-06-2019 End: 12-19-2022 History SDOH Alcohol Frequency 1 [facility] Exposure to SARS-CoV-2 (event) Unable to assess [facility] Start: 11-01-2019 End: 07-29-2023 Tobacco use and exposure [facility] Exposure to SARS-CoV-2 (event) Yes [facility] Start: 01-04-2020 End: 06-16-2022 Alcohol intake Current drinker of alcohol (finding) [facility] Start: 12-05-2018 Alcohol Comment occassional [facility] Start: 11-19-2021 End: 06-16-2022 Exposure to SARS-CoV-2 (event) Not sure [facility] Start: 11-29-2021 Tobacco Comment 5cigs/day 2 [employer] Phone: Start: 06-16-2022 Tobacco smoking status NHIS Ex-smoker [employer] History of tobacco use Current smoker [employer] Phone: Start: 06-16-2022 Alcohol Comment occ. Some tonight [facility] [employer] Phone: Start: 08-08-2020 Tobacco smoking status Heavy tobacco smoker (finding) [facility] Start: 07-29-2023 Sex Assigned At Female F [facility] Tobacco smoking status NYIS Tobacco smoking consumption unknown [facility] Start: 04-19-2023 [facility] Within the past 12 months we worried whether our food would run out before we got money to buy more. [facility] Start: 07-29-2023 Tobacco Comment Uses [employer] devices. Andel NEGATED: Highlighted rowStart: [place] History of tobacco use Passive smoker [facility] Functional Status Date Assessment Result Facility 12-06-2022 Functional Status N/A [facility] Clinical Notes 12-10-2020 to 07-29-2023 Dawit [...] females Have you been seen here at [facility] in a previous ?no Recent ER visits or hospitalizations? No Bring blood sugar log or meter with you today? (Please bring them with you for every visit at [facility]) n/a Traveled outside the country in the [...] was 45 minutes. 24 minutes were direct xgsa-mg-xyix for counseling and coordination of care during visits itself. An additional 8 minutes or for same day preparation to see the patient. Another 13 minutes were needed to prepare visit report or otherwise complete encounter Thank you for sending this patient. Dana Mcdonough MD Maternal Medicine Professor, [facility] [phone] Office [phone] Personal Cell Phone Office Note: Type 2 [...] with breakfast. metroNIDAZOLE (FLAGYL) 500 mg tablet ke281-axlt-iyibb acid ( 19) 29 mg iron- 1 [...] become candidates for treatment. ACOG and the [place] psychiatric association advocate treatment in patients with [...] growth disorder. Smoking cessation recommended. Both the [place] and the [facility] have excellent free stop smoking programs that are accessible through [facility] web sites. If desired by patient, we [...] to the patient's reported primary care provider. Plating Foreman gave T1dm & T2dm dm handout, twin [...] Carmen Cheung (Nutrition Education). Requested to call [phone] Option #3 to reschedule. documented in this encounter [facility] 07-15-2023 Telephone encounter Note Summary: MFM Missed Diabetes Education Appointment Called. No answer. Message left regarding missing Diabetes Education appointment; noted was also scheduled to see Gaby CROUCH and Carmen Cheung (Nutrition Education). Requested to call [phone] Option #3 to reschedule. [facility] [...] in the [place] Call the [facility] and human services helpline (211 in the [place] Call or text a suicide hotline to speak with a trained counselor. The following suicide hotlines are available in the [place]: ?7-187-500-TALK ( or 895 in the [place] ?8-940-IHBZVGQ ( ). ?Text 089659. This is the Crisis Text Line in the [place] ? . This is a hotline for St Helenian speakers. ? . This is a hotline for TTY users. ?0-711-6-U-YASHIRA ( ). This is a hotline for lesbian, delgadillo, bisexual, transgender, or questioning youth. ?For a list of hotlines in [place], visit suicide.org/hotlines/internation al/xzkwgz-aaxpphi-fhfhwmrg.html Contact a crisis center or a local [...] list of crisis centers in [place], visit: suicideprevention.ny How to help yourself feel better Promise [...] to anyone or being with other people. ?Ombf-qx-byux conversation is best to help them understand [...] physical and a mental health checkup. Take tmvk-odw-kxpzwcc and prescription medicines only as told by [...] more information National Suicide Prevention Lifeline: www.suicidepreventionlifeline.or Plexxi Hopeline: www.hopeline.SED Web [place] Foundation for Suicide Prevention: www.afsp.org The Yashira Project (for lesbian, delgadillo, bisexual, transgender, or questioning youth): www.thetrevorproject.org National Novice of Mental Health: www.nimh.nih.gov/health/topics/s uicide-prevention Suicide Prevention Resources: afsp.org/sejytsv-fvoynmnvln-etna urces Contact a health care provider if: [...] provider. Document Revised: 11/15/2021 Document Reviewed: 08/30/2021 Liquid [employer] Patient Education 2022 Locality. Follow Up Care 12/06/2022 13:21:39 With:[facility] Address:Unknown When:12/09/2022 16:28:40 Comments:Follow safety plan. Return to the emergency department with any worsening symptoms. With:GAYE JOSUE Address: [address] [facility] (1) When:12/09/2022 16:28:22 Comments:Call the office [...] Repeat liver function testing in 1 month. [facility] 12-06-2022 Evaluation + Plan note Extrac rayray from: Title:ED Note Author:Graham Choe DO Date: Situational stress (F43.9: R eaction to severe stress, unspecified) Orders: Automated Diff CBC w/ Auto Diff Comprehensive Metabolic Panel Drug Screen Urine ECG 12 Lead Adult eGFR Ethanol Level U Beta Hcg Qual [facility]07-28-2022 History of Present illness Narrative* Edelmira Jacobs RN - 11/29/2021 2:40 PM EDT Home med list reviewed with patient. documented in [facility] [employer] Phone: [phone]) 576-258708-08-2021 History of Present illness Narrative* Perla Cunningham RN - 12/10/2020 8:28 PM EDT Discharge instructions given. Pt sent home with 1 zofran. Aware to pick up man prescription. All questions answered. documented in [facility] Phone: evaluation note* Diagnosis Symptoms of dehydration- Primary Nausea vomiting and diarrhea Nausea with vomiting documented in this encounter [employer] Phone: evaluation note* Diagnosis Threatened miscarriage in early - Primary Threatened , unspecified as to episode of care documented in this encounter [employer] Phone: evaluation note* Diagnosis Depression during in first trimester- Primary Dehydration documented in this encounter [employer] Phone: evaluation note* Diagnosis COVID-19 virus infection- Primary Second trimester documented in this encounter [employer] Phone: evaldeqlxk note* Diagnosis Hordeolum externum of right lower eyelid- Primary Hordeolum externum documented in this encounter [facility] [employer] Phone: evaluation note* Diagnosis Acute midline low back pain without sciatica- Primary documented in this encounter [employer] Phone: evaluation note* Diagnosis Nausea and vomiting, unspecified vomiting type- Primary Intractable headache, unspecified chronicity pattern, unspecified headache type documented in this encounter [employer] Phone: evaluation note* Diagnosis Acute cystitis without hematuria- Primary Acute cystitis Vaginal yeast infection Candidiasis of vulva and vagina documented in this encounter [facility] [employer] note* Diagnosis Type 2 diabetes mellitus affecting in second trimester, antepartum- Primary Twin , dichorionic/diamniotic, second trimester Bipolar disease during in second trimester ([facility] documented in this encounter [facility] Diagnosis Type 2 diabetes mellitus affecting in second trimester, antepartum- Primary Twin , dichorionic/diamniotic, second trimester Obesity affecting in second trimester, unspecified obesity type Bipolar disease during in second trimester ([facility] Post traumatic stress disorder Posttraumatic stress disorder Tobacco smoking affecting in second trimester documented in this encounter [facility] Narrative No data available for this section [facility]* Attachments The following attachments cannot be sent through Care Everywhere. * Nausea and Vomiting (Bruneian) * Diarrhea (Bruneian) * Oral Rehydration (Bruneian) [facility]: Hospital Discharge instructions* Attachments The following attachments cannot be sent through Care Everywhere. * Miscarriage: Threatened (Bruneian) [facility]: Hospital Discharge instructions* Attachments The following attachments cannot be sent through Care Everywhere. * Dehydration (Bruneian) [facility]: Hospital Discharge instructions* Attachments The following attachments cannot be sent through Care Everywhere. * Coronavirus Disease (COVID-19): General Info (Bruneian) documented [facility]: Hospital Discharge instructions* Attachments The following attachments cannot be sent through Care Everywhere. * Styes and Chalazia (Bruneian) documented in this [facility] [employer] Phone: Hospital Discharge instructions* Attachments The following attachments cannot be sent through Care Everywhere. * Back Pain (Bruneian) * Back: Stretches: Exercises (Bruneian) documented in this [facility] [employer] Phone: Hospital Discharge instructions* Attachments The following attachments cannot be sent through Care Everywhere. * Headache (Bruneian) documented in this [facility] [employer] Phone: Hospital Discharge instructions* Attachments The following attachments cannot be sent through Care Everywhere. * Vaginal Yeast Infection (Bruneian) documented in this encounterBON [facility]OMERENE [facility]PITALInstructionsNot on file documented in this encounterProEvergreen [facility] Center [facility] SystemInstructionsNot on file documented in this encounterProEvergreen Medical Center Syapse SystemInstructionsNot on file documented in this encounterProEvergreen Medical Center Sy[facility] SystemInstructionsNot on file documented in this encounterProMedina Hospital SystemProgress note No data available for this section [facility] Summary Purpose Family History No Family [...] FoundDocuments on File Type Date Recorded Patient Nursing Attendant Expl anation Advance Directives and Living Will Power of Professor Of Counseling Documents on File Type Date Recorded Patient Nursing Attendant Expl anation ACP-Advance Directive ACP-Power of Professor Of Counseling Documents on File Type Date Recorded Patient Nursing Attendant Expl anation Advance Directives and Livin g [...] be sent through Care Everywhere. * Sinusitis (Bruneian) * Sinus Rinse (Bruneian) * Bronchitis (Bruneian) documented in this encounter* Attachments The following attachments cannot be sent through Care Everywhere. * Smoking: Stopping (Bruneian) * Bronchitis (Bruneian) * Coronavirus Disease (COVID-19): General Info (Bruneian) documented in this encounter* Attachments The following attachments cannot be sent through Care Everywhere. * Bronchitis (Bruneian) documented in this encounter Assessments Diagnosis Bronchitis- [...] trimester Bipolar disease during in second trimester ([facility]) Procedures MFM with or without consult Dana Mcdonough MD [address] [place] [address] [facility] Maternal Med [address] [place] [address] Referral ID Status Reason Start Date Expiration Date V isits Requested Visits Authorized [id number] Pending Review 07/29/2023 07/28/2024 1 1 Additional Source Comments INFORMATION SOURCE (unrecogn ized section and content) DATE CREATED AUTHOR 10/29/2017 [facility] DATE CREATED AUTHOR AUTHOR'S ORGANIZ ATION 11/26/2017 [facility] DATE CREATED AUTHOR AUTHOR'S ORGANIZ ATION 01/04/2020 [facility] DATE CREATED AUTHOR AUTHOR'S ORGANIZ ATION 05/26/2020 [facility] DATE CREATED AUTHOR AUTHOR'S ORGANIZ ATION 08/07/2020 [place] DATE CREATED AUTHOR AUTHOR'S ORGANIZ ATION 04/08/2021 [facility] DATE CREATED AUTHOR AUTHOR'S ORGANIZ ATION 07/14/2021 [facility] DATE CREATED AUTHOR AUTHOR'S ORGANIZ ATION 04/27/2022 [facility] DATE CREATED AUTHOR AUTHOR'S ORGANIZ ATION 12/07/2022 Caesar Hilliard [facility] DATE CREATED AUTHOR AUTHOR'S ORGANIZ ATION 10/10/2023 [facility] DATE CREATED AUTHOR AUTHOR'S ORGANIZ ATION 10/19/2023 [facility] DATE CREATED AUTHOR AUTHOR'S ORGANIZ ATION 10/29/2023 [facility] DATE CREATED AUTHOR AUTHOR'S ORGANIZ ATION 11/22/2023 [facility] EPIC DATE CREATED AUTHOR AUTHOR'S ORGANIZ ATION 11/24/2023 [facility] Reason for Visit (unrecogniz ed section [...] 30 mg, IntraVENous, ONCE, 1 dose, On [place] 06/16/22 at 0200, Do not administer for more than 5 days. 0225 (Given - Provid er: Deloris Pinto RN) ondansetron (ZOFRAN) injection 4 mg (COMPLETED) 4 mg, IntraVENous, ONCE, 1 dose, On [place] 06/16/22 at 0200 022 (Given - Provid [...] Care Teams (unrecognized sec tion and content) [employer] Relationship Specialty Start Date End Date Gaye Josue, BUILDING MANAGER - SALES ACTIVITY MANAGER [address] [place] [address] PCP - General Family Nurse Practitioner 02/10/21 [employer] Relationship Specialty Start Date End Date Gaye Josue APRN [facility] [address] [place] [address] PCP - General Family Nurse Practitioner 02/10/21 [employer] Operator Relationship Specialty Start Date End Date Gaye Josue APRN SALES ACTIVITY MANAGER [address] [place] [address] PCP - General Family Nurse Practitioner 02/10/21 [employer] Operator Relationship Specialty Start Date End Date Gaye Josue APRN SALES ACTIVITY MANAGER [address] [place] [address] PCP - General Family Nurse Practitioner 02/10/21 [employer] Operator Relationship Specialty Start Date End Date Jacobo Johnson DO [address] [place] [address] PCP - General Family Medicine 07/29/23 [employer] Relationship Specialty Start Date End Date Jacobo Johnson DO [address] [place] [address] PCP - General Family Medicine 07/29/23 FOR [...] BE BASED ON THE PRIMARY CLINICAL RECORDS. [facility] [employer] [facility]. provides no warranty or guarantee of the accuracy or completeness of information in this document.
[2023-12-02 14:36] VITALS: BP 110/66; PULSE 100
== END 2023-12-02 15:15 | disposition home or self-care (01) ==
LOC: FBCO 07:32 → FBC 14:26
PROVIDERS: PCP Family Medicine; Visit Provider Obstetrics & Gynecology
DX: O24.419 Gestational diabetes mellitus in pregnancy, unspecified control (principal)
CPT/HCPCS: 59025

== ENCOUNTER 2023-12-03 07:19 | Outpatient (RCR) | payer OTHER, SELFPAY ==
[2023-11-24 14:10] VITALS: BP 118/78; PULSE 97; TEMP 36.9; O2SAT 96
[2023-11-24] MEDS: IRON SUCROSE COMPLEX 100 MG in 0.9 % SODIUM CHLORIDE 100 ML 420 MG IV (14:13)
[2023-11-28 12:27] VITALS: BP 120/76; PULSE 81; TEMP 36.3; O2SAT 97
[2023-11-28] MEDS: IRON SUCROSE COMPLEX 200 MG in 0.9 % SODIUM CHLORIDE 100 ML 220 MG IV (12:38)
--- NOTE | 2023-11-28 12:44 | PC.NURSE ---
1227: Pt. to [facility] amb. for Venofer infusion. Seated in recliner. VSS. IV initiated to right ac without difficulty, see documentation. Tolerated without c/o. IV Venofer initiated. Pt. given snack and juice.
--- NOTE | 2023-11-28 13:17 | PC.NURSE ---
1315: Infusion completed without s&s of adverse reaction. IV d/c'd, pressure to site. Pt. d/c'd amb. to [facility] for NST.
[2023-12-01 14:00] VITALS: BP 110/79; PULSE 100; TEMP 36.6; O2SAT 98
[2023-12-01] MEDS: IRON SUCROSE COMPLEX 200 MG in 0.9 % SODIUM CHLORIDE 100 ML 220 MG IV (14:10)
--- NOTE | 2023-12-01 14:17 | PC.NURSE ---
1400: Pt. to [facility] amb. Seated in recliner. VSS. Relays feeling tired. IV initiated to right ac, see documentation. Pt. tolerated without c/o. 1410: IV Venofer initiated at this time.
--- NOTE | 2023-12-01 14:43 | PC.NURSE ---
1442: IV Venofer completed at this time without adverse reaction. IV d/c'd, pressure to site. Tolerated without c/o. 1443: Pt. d/c'd amb. to home.
[2023-12-03 13:38] VITALS: BP 130/82; PULSE 103; TEMP 36.4; O2SAT 97
[2023-12-03] MEDS: IRON SUCROSE COMPLEX 100 MG in 0.9 % SODIUM CHLORIDE 100 ML 420 MG IV (14:00)
== END 2023-12-03 23:59 | disposition home or self-care (01) ==
LOC: INF 07:19
PROVIDERS: PCP Family Medicine; Visit Provider Obstetrics & Gynecology
DX: O99.019 Anemia complicating pregnancy, unspecified trimester (principal); Z3A.00 Weeks of gestation of pregnancy not specified
CPT/HCPCS: 96365; J1756

== ENCOUNTER 2023-12-05 06:58 | Outpatient (OUT) | payer OTHER, SELFPAY ==
--- OUTSIDE RECORDS SUMMARY | 2023-12-05 07:03 | XMS_ITS ---
Patient Summarization (C-CDA 2.1 CCD) Created on: December 05, 2023 RIRI DEMPSEY : 1995 Sex: Female Author Organization Sample organization Care Team Providers Care Tracing Lathe Set Up Operator Name Role Phone GAYE JOSUE Unavailable Unavailable GAYE JOSUE Unavailable Unavailable Unavailable Unavailable Unavailable Honey, Schall Circle Maryjo Unavailable Unavailable Honey, Schall Circle Maryjo Unavailable Unavailable Unavailable Primary Care Provider UnavailJuanito Rodriges Primary Care Provider JUANITO HERNANDEZ Attending U navailable CELENGERI, JAMESJETH RATHNARAJAIAH Primary Care U navailable Celengeri, Vijeth Rathnarajaiah Primary Care Prov ider Radha Carney Unavailable Perla Rm Primary Care Provider [phone] HUY, JAMESJETH RATHNARAJAIAH Primary Care U navailable [...] Referring Unavailable GAYE JOSUE Primary Care Unavailable [facility] FRONT COUNTER ATTENDANT - TREE PULLER, Gaye Primary Care Provider [facility] FRONT COUNTER ATTENDANT - TREE PULLER, Gaye Primary Care Provider MISC, DR AKINS [...] DR MARY Woodall Consulting Unavailable MISC, DR AIKNS Primary Care Unavailable YOGI, DR OLMELI Admitting Unavailable YOGI, DR LOMELI Attending Unavailable YOGI, DR LOMELI Attending Unavailable YOGI, DR LOMELI Admitting Unavailable MISC, DR AKINS Primary Care Unavailable KARASIK, DR ACHARYA Attending Unavailable KARASIK, DR AHCARYA Consulting Unavailable KARASIK, DR ACHARYA Admitting Unavailable [...] Unavailable MISC, DR AKINS Primary Care Unavailable YGOI, DR LOMELI Procedure Practitioner Unavailab le YOGI, [...] Admitting Unavailable YOGI, DR LOMELI Consulting [facility]available [facility] Primary Care Provider SHAMAR GAYE Primary Care Physician [phone] Graham Choe Attending Unavailable [facility] Primary Care Unavailable [facility] Primary Care Provider Unavailable Primary Care Provider Jacobo Ahmadi DO J Primary Care Provider DELLEE, GAYE Primary Care Unavailable MATTHEW TAFOYA Attending Unavailable DELANY, GAYE Primary Care Unavailable BEA JACOBS Attending Unavailable DELANY, GAYE Primary Care Unavailable BEA JACOBS Attending Unavailable BRITTA, JACOBO J Primary Care Unavailable HOANG SANTOS Attending Unavailable BRITTA, JACOBO J Referring Unavailable OLEWILER, JACOBO J [...] Primary Care Unavailable HERMAN URRUTIA Attending Unavailable RUMALER, JACOBO J Referring Unavailable OLEWILER, JACOBO J [...] Unavailable OLEWILER, JACOBO J Primary Care Unavailable DEDRICK ASHERY Attending Unavailable DEDRICK ASHERY Attending Unavailable DEDRICK ASHERY Attending Unavailable LOY ASHER Attending Unavailable YOGI, LOY Attending Unavailable JANA, CLARK Attending Unavailable Allergies Allergy Classification Reported Allergen(s) Allergy Type Date of Onset Reaction(s) Facility (1 source) No Known Medication Allergies; Translations: [No Known Medication Allergies] Propensity to adverse reactions (disorder) [facility] Repository Encounters Encounter Date Encounter Type Care Provider Facility Start: 12-02-2023 End: 12-02-2023 ambulatory CLARK BATES Not Available Start: 11-20-2023 End: 11-20-2023 ambulatory [facility] Start: 11-20-2023 End: 11-20-2023 ambulatory LOY R [facility] Start: 11-18-2023 End: 11-18-2023 ambulatory LOY ASHER Not Available Start: 11-12-2023 End: 11-12-2023 ambulatory [facility] Start: 11-04-2023 End: 11-04-2023 ambulatory LOY ASHER Not Available Start: 11-02-2023 End: 11-02-2023 ambulatory HARMONY Lee [facility] Start: 10-31-2023 End: 11-03-2023 Evaluation and management of inpatient ZAYRA KIMBLE [facility] Start: 10-31-2023 End: 10-31-2023 ambulatory HERMAN URRUTIA [facility] Start: 10-31-2023 End: 10-31-2023 ambulatory [facility] Start: 10-22-2023 ambulatory Redd Dueñas acility:[facility] Start: 10-20-2023 End: 10-20-2023 ambulatory LOY ASHER Not Available Start: 10-13-2023 End: 10-13-2023 Emergency department patient visit GAYE Carrasco [facility] Start: 10-09-2023 End: 10-09-2023 [facility] Start: 08-29-2023 End: 08-29-2023 ambulatory LOY R [facility] Start: 08-18-2023 End: 08-18-2023 ambulatory JACOBO HENDRIXSAGAR [facility] Start: 07-29-2023 End: 07-29-2023 Office outpatient new 45 minutes Dana Mcdonough MD Work Phone: [facility] Comment on above: Type 2 diabetes ashley itus affecting in second trimester, antepartum (Primary Dx); Twin , dichorionic/diamniotic, second trimester; Obesity affecting in second trimester, unspecified obesity type; Bipolar disease during in second trimester ([facility]); Post traumatic stress disorder; Tobacco smoking affecting in second trimester Start: 07-29-2023 End: 07-29-2023 Orders Only Dawit Carter INDIRECT SALES REPRESENTATIVE [facility] Comment on above: Type 2 diabetes ashley itus affecting in second trimester, antepartum (Primary Dx); Twin , dichorionic/diamniotic, second trimester; Bipolar disease during in second trimester ([facility]) Start: 07-29-2023 End: 07-30-2023 ambulatory [facility] Start: 07-24-2023 Telephone encounter Thuy CRESPO [facility] Start: 07-15-2023 Telephone encounter Rosa crane RN Work Phone: [facility] Start: 07-09-2023 Orders Only Not In System Ref Prov [facility] Start: 06-30-2023 End: 06-30-2023 ambulatory LOY YOGI Not Available Start: 05-30-2023 End: 05-30-2023 ambulatory LOY YOGI Not Available Start: 05-15-2023 End: 05-15-2023 ambulatory LOY YOGI Not Available Start: 04-01-2023 End: 04-01-2023 Emergency department patient visit [facility] Start: 02-13-2023 End: 02-13-[address] [facility] Start: 12-22-2022 End: 12-22-2022 Emergency department patient visit GAYE JOSUE [facility] Start: 12-19-2022 End: 12-19-2022 Emergency department patient visit Matthew Tafoya MD Work Phone: [facility] ED Comment on above: Acute cystitis witho ut hematuria (Primary Dx); Vaginal yeast infection Start: 12-06-2022 End: 12-06-2022 Emergency department patient visit Graham Choe Facility:[facility] Start: 12-06-2022 End: 12-06-2022 Emergency department patient visit Graham Choe [facility] Start: 06-16-2022 End: 06-16-2022 Emergency department patient visit Hoang Santos MD Work Phone: [facility] ED Comment on above: Nausea and vomiting, unspecified vomiting type (Primary Dx); Intractable headache, unspecified chronicity pattern, unspecified headache type Start: 03-13-2022 End: 03-13-2022 Emergency department patient visit Bea Jacobs MD Work Phone: [facility] ED Comment on above: Acute midline low ba ck pain without sciatica (Primary Dx) Start: 11-29-2021 End: 11-29-2021 Emergency department patient visit Bea Jacobs MD Work Phone: [facility] ED Comment on above: Hordeolum externum [...] Start: 05-31-2021 End: 06-01-2021 ambulatory [facility] Start: 05-22-2021 End: 05-22-2021 Emergency department patient visit Hoang Santos MD Work Phone: [facility] ED Comment on above: COVID-19 virus infec tion (Primary Dx); Second trimester Start: 04-12-2021 End: 04-12-2021 Emergency department patient visit Dana Redman MD Work Phone: [facility] ED Comment on above: Depression during pr egnancy in first trimester (Primary Dx); Dehydration Start: 04-01-2021 End: 04-01-2021 Emergency department patient visit [facility] Start: 03-25-2021 End: 03-25-2021 Emergency department patient visit [facility] Start: 02-10-2021 End: 02-10-2021 Emergency department patient visit Braydon May MD Work Phone: [facility] ED Comment on above: Threatened miscarria ge in early (Primary Dx) Start: 12-10-2020 End: 12-10-2020 Emergency department patient visit Bea Jacobs MD Work Phone: [facility] ED Comment on above: Symptoms of dehydrat ion (Primary Dx); Nausea vomiting and diarrhea Start: 08-02-2020 End: 08-07-2020 [facility] Start: 08-01-2020 End: 08-02-2020 Emergency department patient visit Bea Jacobs Work Phone: [facility] ED Comment on above: Suicidal thoughts (P rimary Dx); Depression with suicidal ideation Start: 05-22-2020 End: 05-26-2020 Patient encounter procedure [facility] Start: 03-22-2020 End: 03-26-2020 Patient encounter procedure [facility] Start: 01-18-2020 End: 01-18-2020 Subsequent hospital visit by physician Perla Rm [facility] Comment on above: Palpitations Start: 01-04-2020 End: 01-04-2020 Patient encounter [facility] Start: 01-04-2020 End: 01-04-2020 Office outpatient visit 25 minutes [facility] Work Phone: [facility] Comment on above: Anxious depression ( Primary Dx); Smoker; Weight gain; Fatigue, unspecified type; Screening cholesterol level Start: 12-23-2019 End: 12-23-2019 Emergency department patient visit Hoang Santos Work Phone: [facility] ED Comment on above: Bronchitis (Primary Dx) Start: 11-22-2019 End: 11-22-2019 Patient encounter procedure [facility] Start: 11-12-2019 End: 11-12-2019 Patient encounter procedure [facility] Start: 11-01-2019 End: 11-01-2019 Subsequent hospital visit by physician GUID[facility] Comment on above: Exposure to COVID-19 virus; Cough in adult patient Start: 10-22-2019 End: 10-22-2019 Emergency department patient visit Arin Navarro Emma Work Phone: [facility] ED Comment on above: Acute bronchitis, un specified organism (Primary Dx); Tobacco abuse; Encounter for laboratory testing for COVID-19 virus Start: 04-06-2019 End: 04-06-2019 Emergency department patient visit Noelneetu Carrasco Reynaldo Work Phone: [facility] ED Comment on above: Bronchitis (Primary Dx); Acute sinusitis, recurrence not specified, unspecified location Start: 11-11-2017 End: 11-12-2017 Emergency department patient visit Aicha Méndez Facility:[place] Start: 11-11-2017 End: 11-11-2017 Ambulatory [facility] Work Phone: [facility] Start: 01-20-2017 Ambulatory [facility] Start: 01-16-2017 Ambulatory [facility] Immunizations Immunization Date Immunization Notes Care Provider Nupur west 03-02-2012 influenza virus vaccine, unspecified formulation [facility]it Carter [facility] NEGATED: Highlighted row has not occurred!06-13-2020 influenza virus vaccine, unspecified formulation Graham Choe [facility] Medications Current Medications Medication Drug [...] days 10 tablet 0 10/22/2019 10/27/2019 Active [id number]-exfut acid ( 19) 29 mg iron- 1 mg tablet,chewable (2 sources) nv586-vkwl-tbyaz acid ( 19) 29 mg iron- 1 [...] 0 Active take 2 tablets by mo [facility] twice daily as needed clonazePAM (KLONOPIN) [...] mark th every four hours as needed Hwgartfsrugjxfr-ZRQH-QR (DAYQUIL PO) Don e 1 tablet by [...] Active Payers Date Payer Category Payer Medicaid [employer] HMO [id number] 2023-Present [phone] [address] [place] [address] [id number] 2023 Medicaid [id number] 2019 Unknown [id number] 2018 Medicaid [id number] 2018 Unknown [id number] 2018 Unknown [id number] 2015 Unknown [id number] 2014 Unknown [id number] 2014 Unknown [employer]IC [employer]ERCIAL [id number] 2014-Present Indemnity [id number] [id number].3.6 [id number] 1997 Unknown [id number] 2.16.840.1.165597.3.579.2.903 1997 Unknown [id number] 2.16.840.1.138208.3.579.2.900 1997 Unknown [id number] 2.16.840.1.997771.3.579.2.176 1997 Unknown [id number] 2.16.840.1.771910.3.579.2.903 1997 Unknown [id number] 2.16.840.1.379987.3.579.2.903 1997 Unknown [id number] 2.16.840.1.004471.3.579.2.175 1997 Unknown [id number] 2.16.840.1.744201.3.579.2.593 1997 Unknown [id number] 2.16.840.1.074208.3.579.2.593 1997 Unknown [id number] 2.16.840.1.659880.3.579.2.593 1997 Unknown [id number] 2.16.840.1.111480.3.579.2.593 1997 Unknown [id number] 2.16.840.1.369555.3.579.2.593 1997 Unknown [id number] 2.16.840.1.196836.3.579.2.593 1997 Unknown [id number] 2.16.840.1.617197.3.579.2.593 1997 Unknown [id number] 2.16.840.1.320604.3.579.2.593 1997 Unknown [id number] 2.16.840.1.429652.3.579.2.593 1997 Unknown [id number] 2.16.840.1.671381.3.579.2.593 1997 Unknown [id number] 2.16.840.1.555086.3.579.2.593 1997 Unknown [id number] 2.16.840.1.020981.3.579.2.593 1997 Unknown [id number] 2.16.840.1.622285.3.579.2.593 1997 Unknown [id number] 2.16.840.1.206568.3.579.2.593 1997 Unknown [id number] 2.16.840.1.536625.3.579.2.593 1997 Unknown [id number] 2.16.840.1.817815.3.579.2.593 1997 Unknown [id number] 2.16.840.1.004968.3.579.2.593 1997 Unknown [id number] 2.16.840.1.427524.3.579.2.593 1997 Unknown [id number] 2.16.840.1.264000.3.579.2.593 1997 Unknown [id number] 2.16.840.1.450151.3.579.2.593 1997 Unknown [id number] 2.16.840.1.619529.3.579.2.593 1997 Unknown [id number] 2.16.840.1.269088.3.579.2.593 1997 Unknown [id number] 2.16.840.1.291768.3.579.2.593 1997 Unknown [id number] 2.16.840.1.909881.3.579.2.727 1997 Unknown [id number] 2.16.840.1.580680.3.579.2.174 1997 Unknown [id number] 2.16.840.1.270102.3.579.2.174 1997 Unknown [id number] 2.16.840.1.483471.3.579.2.174 1997 Unknown [id number] 2.16.840.1.800353.3.579.2.174 1997 Unknown [id number] 2.16.840.1.019321.3.579.2.174 1997 Unknown [id number] 2.16.840.1.469829.3.579.2.174 1997 Unknown [id number] 2.16.840.1.005845.3.579.2.903 1997 Unknown [id number] 2.16.840.1.811696.3.579.2.1286 1997 Unknown [id number] 2.16.840.1.032396.3.579.2.1285 1997 Unknown [id number] 2.16.840.1.291807.3.579.2.1285 1997 Unknown [id number] 2.16.840.1.034962.3.579.2.1285 1997 Unknown [id number] 2.16.840.1.259352.3.579.2.1285 1997 Unknown [id number] 2.16.840.1.000065.3.579.2.1285 1997 Unknown [id number] 2.16.840.1.497874.3.579.2.1285 1997 Unknown [id number] 2.16.840.1.726742.3.579.2.1285 1997 Unknown [id number] 2.16840.1.770275.3.579.2.1285 1997 Unknown [id number] 2.16840.1.300302.3.579.2.1285 1997 Unknown [id number] 2.16.840.1.694303.3.579.2.1285 1997 Unknown [id number] 2.16.840.1.073929.3.579.2.1258 1997 Unknown [id number] 2.16840.1.334826.3.579.2.1258 1997 Unknown [id number] 2.16.840.1.226049.3.579.2.1258 1997 Unknown [id number] 2.16.840.1.614662.3.579.2.1258 1997 Unknown [id number] 2.16.840.1.371413.3.579.2.1258 1997 Unknown [id number] 2.16.840.1.886969.3.579.2.1258 1997 Unknown [id number] 2.16.840.1.607177.3.579.2.1259 1959 Self-pay [id number] Self-pay 1959 Unknown [id number] 1.2.840.216087.1.13.239.2.7.3.6 19302.315 Plan of Treatment Date Care Activity Detail Author Start: 07-28-2024 Adult BMI Screening Adult BMI Screen ing [facility] Start: 07-28-2024 Tobacco Screening Tobacco Screening [facility] Start: 07-28-2024 End: 07-28-2024 US MFM with or without consult US MFM with or without consult Imaging Routine Twin , dichorionic/diamniotic, second trimester Bipolar disease during in second trimester ([facility]) Expected: 07/28/2024 (Approximate), Expires: 07/28/2024 [facility] Work Phone: Comment on above: Expected: 07/28/2024 (Approximate), Expires: 07/28/2024 Start: 08-29-2023 End: 08-29-2023 Patient encounter procedure 08/29/2023 1:00 PM EDT Appointment [facility] [address] [place] [phone] [facility] Start: 07-29-2023 End: 07-29-2023 Patient encounter procedure [facility] Start: 07-15-2023 End: 07-15-2023 Patient encounter procedure 07/15/2023 2:00 PM EDT Office Visit [facility] [address] [facility] [place] [address] Gaby Bustillos, PACristyC [address] [facility] [address] [address] [facility] Start: 07-15-2023 End: 07-15-2023 ambulatory 07/15/2023 1:00 PM EDT Support Visit [facility] [address] [place] [phone] Rosa Rocha RN [address] [facility], [address] [place] [address] Carmen Cheung LD [facility] Start: 03-22-2023 Screening for malign ant neoplasm of cervix Pap smear [facility] Start: 01-03-2023 Influenza vaccination Influenza Vacc [facility] Start: 12-03-2022 Influenza vaccination Flu vaccine (# 1) [facility] Start: 03-29-2022 Screening for Chlamy deisy trachomatis [facility] Start: 01-03-2022 Influenza vaccination Flu vaccine (# 1) [facility] Start: 12-03-2021 Influenza vaccination Flu vaccine (# 1) [facility] Start: 05-31-2021 End: 05-31-2021 Patient encounter procedure 05/31/2021 Routine Perinatology [facility] Start: 01-17-2021 Depression Monitoring Depression Mon itoring [facility] Start: 01-03-2021 Influenza vaccination Flu vaccine (# 1) [facility] Start: 04-04-2020 End: 01-03-2021 Complete blood count with white cell differential, manual CBC and Differential Lab Routine Fatigue, unspecified type Expected: 04/04/2020 (Approximate), Expires: 01/03/2021 [facility] Comment on above: Expected: 04/04/2020 (Approximate), Expires: 01/03/2021 Start: 04-04-2020 End: 01-03-2021 Comprehensive metabolic 2000 panel Comprehensive Metabolic Panel Lab Routine Fatigue, unspecified type Expected: 04/04/2020 (Approximate), Expires: 01/03/2021 [facility] Comment on above: Expected: 04/04/2020 (Approximate), Expires: 01/03/2021 Start: 04-04-2020 End: 01-03-2021 Magnesium [Mass/Vol] Magnesium Level Lab Routine Fatigue, unspecified type Expected: 04/04/2020 (Approximate), Expires: 01/03/2021 [facility] Comment on above: Expected: 04/04/2020 (Approximate), Expires: 01/03/2021 Start: 02-18-2020 End: 02-18-2020 Office Visit 02/18/2020 Office Visit Family Medicine Perla Rm, DO [address] [place] [phone] [facility] Start: 02-15-2020 End: 02-15-2020 Office Visit 02/15/2020 Office Visit Primary Care Juanito Hernandez MD [address] [place], [place] [phone] [facility] Start: 01-04-2020 Influenza vaccination [place], [place] Start: 01-04-2020 Influenza vaccinatio n given Sequential Influenza Vaccine (#1) [facility] Start: 12-12-2019 DTaP,Tdap and Td Vaccines (7 - Td or Tdap) DTaP,Tdap and Td Vaccines (7 - Td or Tdap) [facility] Start: 12-12-2019 DTaP/Tdap/Td vaccine (7 - Td or Tdap) DTaP/Tdap/Td vaccine (7 - Td or Tdap) [facility] Start: 07-16-2019 Screening for Chlamy deisy trachomatis Chlamydia Screening [facility] Start: 01-03-2019 Influenza vaccination Flu vaccine (# 1) [place], [place] Start: 2018 Cervical cancer screen Cervical canc er screen [place], [place] Start: 2018 Screening for malign ant neoplasm of cervix [facility] Start: 2016 DTaP,Tdap and Td Vaccines (1 - Tdap) DTaP,Tdap and Td Vaccines (1 - Tdap) [facility] Start: 2016 DTaP/Tdap/Td vaccine (1 - Tdap) DTaP/Tdap/Td vaccine (1 - Tdap) [facility] Start: 08-15-2015 Adult BMI Follow Up Plan Adult BMI Follow Up Plan [facility] Start: 04-12-2016 Adult BMI Screening Adult BMI Screen ing [facility] Start: 08-15-2015 Diabetic foot examination Diabetic Foot Exam [facility] Start: 08-15-2015 Hepatitis C screening Hepatitis C sc reen [facility] Start: 2013 Chlamydia screen Chlamydia screen [place], [place] Start: 2013 COVID-19 Vaccine (1) COVID-19 Vaccin e (1) [facility] Work Phone: Start: 2013 Screening for Chlamy deisy trachomatis Chlamydia screen [facility] Start: 2012 HIV screen HIV screen [place], [place] Start: 2012 HIV screening HIV screen [facility] Start: 03-05-2010 Varicella vaccine (2 of 2 - 2-dose childhood series) Varicella vaccine (2 of 2 - 2-dose childhood series) [facility] Start: 2009 COVID-19 Vaccine (1) COVID-19 Vaccin e (1) [facility] Start: 2009 Depression Monitoring Depression Mon [facility] Start: 2009 Depression Screening Depression Scre [facility] Start: 2009 Tobacco Screening Tobacco Screening [facility] Start: 2008 DTaP/Tdap/Td vaccine (1 - Tdap) DTaP/Tdap/Td vaccine (1 - Tdap) [place], [place] Start: 2008 HPV vaccine (1 - 2-d ose series) HPV vaccine (1 - 2-dose series) [facility] Start: 2008 HPV vaccine (1 - Fem man 2-dose series) HPV vaccine (1 - Female 2-dose series) [place], [place] Start: 2008 Vaccination for maria [place] car[place] n papillomavirus HPV Vaccines (1 - 2-dose series) [facility] Start: 08-15-2003 Pneumococcal 0-64 ye ars Vaccine (1 - PCV) Pneumococcal 0-64 years Vaccine (1 - PCV) [facility] Start: 08-15-2003 Pneumococcal 0-64 ye ars Vaccine (1 of 1 - PPSV23) Pneumococcal 0-64 years Vaccine (1 of 1 - PPSV23) [place] Start: 08-15-2003 Pneumococcal 0-64 ye ars Vaccine (1 of 2 - PPSV23) Pneumococcal 0-64 years Vaccine (1 of 2 - PPSV23) [facility] Start: 2002 COVID-19 Vaccine (1) COVID-19 Vaccin e (1) [facility] Start: 2000 History and physical examination, annual for health maintenance Wellness Visit [facility] Start: 1998 Varicella Vaccine (1 of 2 - 2-dose childhood series) Varicella Vaccine (1 of 2 - 2-dose childhood series) [facility] Start: 02-13-1998 COVID-19 Vaccine (#1) COVID-19 Vacci ne (#1) [facility] Start: 1997 Depression screening using PHQ-9 (Patient Health Questionnaire 9) score Depression Screening (PHQ9) [facility] Start: 1997 Glaucoma screening Diabetic Op hthalmology Exam [facility] Start: 1997 Hepatitis C screening Hepatitis C sc reen [facility] Start: 1997 Screening for malign ant neoplasm of cervix Pap Smear [facility] Start: 1997 Tetanus vaccination Tetanus: Every 1 0yrs [facility] Start: 1997 Tobacco Counseling Tobacco Counselin g [facility] Start: 1997 Urine screening for protein Urine Microalbumin [facility] End: 01-03-2021 Cholesterol [Mass/Vol] Cholesterol, Total Lab Routine Screening cholesterol level 1 Occurrences starting 01/04/2020 until 01/03/2021 [facility] Comment on above: 1 Occurrences starti ng 01/04/2020 until 01/03/2021 End: 10-22-2019 COVID-19 COVID-19 Lab Routine One Time for 1 Occurrences starting 10/22/2019 until 10/22/2019 [facility] ID Comment on above: One Time for 1 Occur rences starting 10/22/2019 until 10/22/2019 End: 11-01-2019 Covid-19 Ambulatory Covid-19 Ambulatory Lab Routine Exposure To Covid-19 Virus Cough in adult patient 1 Occurrences starting 11/01/2019 until 11/01/2019 [facility], [place] Comment on above: 1 Occurrences starti ng 11/01/2019 until 11/01/2019 Covid-19 Ambulatory Covid-19 Amb ulatory Lab Routine Exposure to COVID-19 virus Cough in adult patient 11/01/2019 11:25 AM EDT [employer] End: 02-10-2021 Culture, Urine Culture, Urine Microbiology Routine Once for 1 Occurrences starting 02/10/2021 until 02/10/2021 [employer] Work Phone: Comment on above: Once for 1 Occurrenc es starting 02/10/2021 until 02/10/2021 Culture, Urine Culture, Urine Microbiology Routine 02/10/2021 5:41 PM EDT [employer] Work Phone: End: 12-19-2022 Culture, Urine [facility] Home Inventory S[[employer]ial[employer] Comment on above: Once for 1 Occurrenc es starting 12/19/2022 until 12/19/2022 End: 10-22-2019 MDI Treatment MDI Treatment Respiratory Care Routine One Time for 1 Occurrences starting 10/22/2019 until 10/22/2019 [facility] Comment on above: One Time for 1 Occur rences starting 10/22/2019 until 10/22/2019 MDI Treatment MDI Treatment Respiratory Care Routine Every 6hr As Needed until discontinued starting 10/22/2019 [facility] Comment on above: Every 6hr As Needed until discontinued starting 10/22/2019 End: 01-03-2021 TSH Qn TSH with Reflex Free T4 Lab Routine Weight gain Fatigue, unspecified type 1 Occurrences starting 01/04/2020 until 01/03/2021 [facility] Comment on above: 1 Occurrences starti ng [...] Phone: Start: 08-01-2020 Assay of acetaminophen Bea Carrasco Reynaldo Work Phone: Start: 08-01-2020 [...] 11-03-2023 Glucose [Mass/Vol] 172 mg/dL High 65-[address] [facility] Glucose [Mass/Vol] 127 mg/dL High 65-[address] [facility] Glucose Glucometer (BldC) [M ass/Vol]on 11-02-2023 Glucose [Mass/Vol] 137 mg/dL High 65-[address] [facility] Glucose [Mass/Vol] 189 mg/dL High 65-[address] [facility] Glucose [Mass/Vol] 157 mg/dL High 65-[address] [facility] Glucose [Mass/Vol] 160 mg/dL High 65-[address] [facility] Glucose [Mass/Vol] 162 mg/dL High 65-[address] [facility] VAGINITIS PANEL PCRon 2023 VAGINITIS PANEL [...] clinical presentation to determine patient diagnosis. Normal [facility] Comment on above: Performed By: #### C BCA, CMP, THYR, HA1C, 47879-5 #### [facility] ([id number]) [address] [place] [address], [address] [place] [address] Glucose Glucometer (BldC) [M ass/Vol]on 11-01-2023 Glucose [Mass/Vol] 98 mg/dL Normal 65-[address] [facility] Glucose [Mass/Vol] 172 mg/dL High 65-[address] [facility] Glucose [Mass/Vol] 147 mg/dL High 65-[address] [facility] Glucose [Mass/Vol] 138 mg/dL High 65-[address] [facility] Glucose [Mass/Vol] 137 mg/dL High 65-[address] [facility] CBC AND AUTO DIFFon 10-31-19 ABSOLUTE BASOPHIL 0.0 X10E9/L Normal 0.0-0.[address] [facility] Comment on above: Performed By: #### C BCA, CMP, THYR, HA1C, 39479-3 #### [facility] ([id number]) [address] [address] [place] [address] ABSOLUTE NEUTROPHIL 5.2 X10E9/L Normal 1.5-6.6 [facility] Comment on above: Performed By: #### C BCA, CMP, THYR, HA1C, 28023-4 #### [facility] ([id number]) [address], [facility] [address] [place] [address] Basophils/100 WBC (Bld) 0.3 % Normal [facility] Comment on above: Performed By: #### C BCA, CMP, THYR, HA1C, 46265-3 #### [facility] ([id number]) [address] [address] [place] [address] Eosinophils (Bld) [#/Vol] 0.0 10*3/uL Normal 0.0-0.4 [facility] Comment on above: Performed By: #### C BCA, CMP, THYR, HA1C, 61687-0 #### [facility] ([id number]) [address] [address] [place] [address] Eosinophils/100 WBC (Bld) 0.3 % Normal [facility] Comment on above: Performed By: #### C BCA, CMP, THYR, HA1C, 65512-8 #### [facility] ([id number]) [address], [address] [place] [address] Erythrocyte distribution width (RBC) [Ratio] 13.5 % Normal 11.5-15.0 [facility] Comment on above: Performed By: #### C BCA, CMP, THYR, HA1C, 14127-1 #### [facility] ([id number]) [address], [address] [place] [address] Hematocrit (Bld) [Volume fraction] 30.4 % Low 35-47 [facility] Comment on above: Performed By: #### C BCA, CMP, THYR, HA1C, 70220-0 #### [facility] ([id number]) [address], [address] [place] [address] Hemoglobin (Bld) [Mass/Vol] 10.2 g/dL Low 11.7-15.5 [facility] Comment on above: Performed By: #### C BCA, CMP, THYR, HA1C, 75706-4 #### [facility] ([id number]) [address], [address] [place] [address] Lymphocytes (Bld) [#/Vol] 1.5 10*3/uL Normal 1.0-3.5 [facility] Comment on above: Performed By: #### C BCA, CMP, THYR, HA1C, 71564-6 #### [facility] ([id number]) [address], [facility] [address] [place] [address] Lymphocytes/100 WBC (Bld) 20.8 % Normal [facility] Comment on above: Performed By: #### C BCA, CMP, THYR, HA1C, 33097-3 #### [facility] ([id number]) [address], [address] [place] [address] MCH (RBC) [Entitic mass] 26.6 pg Low 27-34 [facility] Comment on above: Performed By: #### C BCA, CMP, THYR, HA1C, 56512-4 #### [facility] ([id number]) [address], [address] [place] [address] MCHC (RBC) [Mass/Vol] 33.4 g/dL Normal 32-[address] [facility] Comment on above: Performed By: #### C BCA, CMP, THYR, HA1C, 38490-0 #### [facility] ([id number]) [address] [address] [place] [address] MCV (RBC) [Entitic vol] 80 fL Normal 80-100 [facility] Comment on above: Performed By: #### C BCA, CMP, THYR, HA1C, 88016-5 #### [facility] ([id number]) [address], [facility] [address] [place] [address] Monocytes (Bld) [#/Vol] 0.4 10*3/uL Normal 0-0.9 [facility] Comment on above: Performed By: #### C BCA, CMP, THYR, HA1C, 62715-6 #### [facility] ([id number]) [address] [address] [place] [address] Monocytes/100 WBC (Bld) 5.5 % Normal [facility] Comment on above: Performed By: #### C BCA, CMP, THYR, HA1C, 55401-9 #### [facility] ([id number]) [address], [facility] [address] [place] [address] Neutrophils/100 WBC (Bld) 73.1 % Normal [facility] Comment on above: Performed By: #### C BCA, CMP, THYR, HA1C, 36452-6 #### [facility] ([id number]) [address], [address] [place] [address] Platelet mean volume (Bld) [Entitic vol] 10.1 fL Normal 7-12 [facility] Comment on above: Performed By: #### C BCA, CMP, THYR, HA1C, 65015-5 #### [facility] ([id number]) [address], [address] [place] [address] Platelets (Bld) [#/Vol] 184 10*3/uL Normal 150-450 [facility] Comment on above: Performed By: #### C BCA, CMP, THYR, HA1C, 93062-4 #### [facility] ([id number]) [address] [address] [place] [address] RBC COUNT 3.83 X10E12/L Normal 3.80-5.20 [facility] Comment on above: Performed By: #### C BCA, CMP, THYR, HA1C, 11764-8 #### [facility] ([id number]) [address] [address] WBC (Bld) [#/Vol] 7.1 10*3/uL Normal 4.0-11.[address] [facility] Comment on above: Performed By: #### C BCA, CMP, THYR, HA1C, 68513-2 #### [facility] ([id number]) [address] [address] CHLAMYDIA/GC BY PCRon 2023 CHLAMYDIA/GC BY PCR [...] are dependent on adequate specimen collection. Normal [facility] Comment on above: Performed By: #### C BCA, CMP, THYR, HA1C, 81522-5 #### [facility] ([id number]) [address] [address] [place] [address] COMPREHENSIVE METABOLIC PANE Nick 10-31-2023 Albumin [Mass/Vol] 3.0 g/dL Low 3.2-5.[address] [facility] Comment on above: Performed By: #### C BCA, CMP, THYR, HA1C, 68014-2 #### [facility] ([id number]) [address] [place] [address] ALP [Catalytic activity/Vol] 109 U/L Normal 39-130 [facility] Comment on above: Performed By: #### C BCA, CMP, THYR, HA1C, 32643-8 #### [facility] ([id number]) [address], [address] [place] [address] ALT [Catalytic activity/Vol] 13 U/L Normal 0-31 [facility] Comment on above: Performed By: #### C BCA, CMP, THYR, HA1C, 66479-8 #### [facility] ([id number]) [address], [address] [place] [address] Anion gap [Moles/Vol] 10 mmol/L Normal 5-[address] [facility] Comment on above: Performed By: #### C BCA, CMP, THYR, HA1C, 55190-0 #### [facility] ([id number]) [address], [address] [place] [address] AST [Catalytic activity/Vol] 19 U/L Normal 0-41 [facility] Comment on above: Performed By: #### C BCA, CMP, THYR, HA1C, 95246-0 #### [facility] ([id number]) [address], [address] [place] [address] Bilirubin [Mass/Vol] 0.4 mg/dL Normal 0.3-1.2 [facility] Comment on above: Performed By: #### C BCA, CMP, THYR, HA1C, 93168-0 #### [facility] ([id number]) [address], [address] [place] [address] Calcium [Mass/Vol] 8.4 mg/dL Low 8.5-10.[address] [facility] Comment on above: Performed By: #### C BCA, CMP, THYR, HA1C, 49955-8 #### [facility] ([id number]) [address], [address] [place] [address] Chloride [Moles/Vol] 106 mmol/L Normal 98-109 [facility] Comment on above: Performed By: #### C BCA, CMP, THYR, HA1C, 45570-6 #### [facility] ([id number]) [address], [address] [place] [address] CO2 [Moles/Vol] 20 mmol/L Low 22-32 [facility] Comment on above: Performed By: #### C BCA, CMP, THYR, HA1C, 46296-5 #### [facility] ([id number]) [address] [address] [place] [address] Creatinine [Mass/Vol] 0.53 mg/dL Normal 0.40-1.[address] [facility] Comment on above: Result Comment: METH OD TRACEABLE TO IDMS STANDARD Performed By: #### C BCA, CMP, THYR, HA1C, 80532-3 #### [facility] ([id number]) [address], [address] [place] [address] eGFR (CKD-EPI) NON-RACE DEPENDENT >90 Normal >59 [facility] Comment on above: Result Comment: Reported eGFR is based on the CKD-EPI 2021 equation that does not use a race coefficient. Performed By: #### C BCA, CMP, THYR, HA1C, 81886-7 #### [facility] ([id number]) [address], [address] [place] [address] Glucose [Mass/Vol] 134 mg/dL High 65-[address] [facility] Comment on above: Performed By: #### C BCA, CMP, THYR, HA1C, 70209-5 #### [facility] ([id number]) [address] [address] [place] [address] Potassium [Moles/Vol] 3.7 mmol/L Normal 3.5-5.[address] [facility] Comment on above: Performed By: #### C BCA, CMP, THYR, HA1C, 35918-7 #### [facility] ([id number]) [address], [address] [place] [address] Protein [Mass/Vol] 5.9 g/dL Low 6.0-8.[address] [facility] Comment on above: Performed By: #### C BCA, CMP, THYR, HA1C, 14646-6 #### [facility] ([id number]) [address], [address] [place] [address] Sodium [Moles/Vol] 136 mmol/L Normal 134-[address] [facility] Comment on above: Performed By: #### C BCA, CMP, THYR, HA1C, 82183-3 #### [facility] ([id number]) [address], [address] [address] Urea nitrogen [Mass/Vol] 7 mg/dL Normal 5-23 [facility] Comment on above: Performed By: #### C BCA, CMP, THYR, HA1C, 00241-8 #### [facility] ([id number]) [address], [address] [place] [address] DRUG SCREEN, URINEon 024 AMPHETAMINE/METHAMP Negative Normal NEG [facility] Comment on above: Result Comment: AMPH /METH screening cut off = 1000 ng/mL Performed By: #### D STAPLES #### [facility] ([id number]) [address] [place] [address] BARBITURATES Negative Normal NEG [facility] Comment on above: Result Comment: Vandana iturates screening cut off value = 200 ng/mL Performed By: #### D STAPLES #### [facility] ([id number]) [address], [address] [place] [address] BENZODIAZEPINES Positive Abnormal NEG [facility] Comment on above: Result Comment: Conf irmation available upon request. Benzodiazepines screening cut off value = 200 ng/mL Performed By: #### D STAPLES #### [facility] ([id number]) [address], [address] [place] [address] CANNABINOIDS Positive Abnormal NEG [facility] Comment on above: Result Comment: Conf irmation available upon request. Cannabinoids/THC screening cut off value = 50 ng/mL Performed By: #### D STAPLES #### [facility] ([id number]) [address] [place] [address] COCAINE METABOLITE Negative Normal NEG [facility] Comment on above: Result Comment: Coca ine screening cut off value = 300 ng/mL Performed By: #### D STAPLES #### [facility] ([id number]) [address] [place] [address] ECSTASY Negative Normal NEG [facility] Comment on above: Result Comment: Ecst asy screening cut off value = 500 ng/mL This report is intended for use in clinical monitoring or management of patients. Performed By: #### D STAPLES #### [facility] ([id number]) [address] [place] [address] METHADONE Negative Normal NEG [facility] Comment on above: Result Comment: Meth adone screening cut off value = 300 ng/mL. Performed By: #### D STAPLES #### [facility] ([id number]) [address], [address] [place] [address] OPIATES Negative Normal NEG [facility] Comment on above: Result Comment: Opia satya screening cut off value = 300 ng/mL NOTE: This test is used for the detection of codeine, hydrocodone (>1000 ng/mL), morphine and hydromorphone (>900 ng/mL) in urine. Performed By: #### D STAPLES #### [facility] ([id number]) [address] [place] [address] OXYCODONE Negative Normal NEG [facility] Comment on above: Result Comment: Oxyc odone screening cut off value = 300 ng/mL NOTE: This test is used for the detection of oxycodone and oxymorphone in urine. Performed By: #### D STAPLES #### [facility] ([id number]) [address], [address] [place] [address] PHENCYCLIDINE Negative Normal NEG [facility] Comment on above: Result Comment: Phen cyclidine screening cut off value = 25 ng/mL Performed By: #### D STAPLES #### [facility] ([id number]) [address], [facility] [address] [place] [address] Glucose Glucometer (BldC) [M ass/Vol]on 10-31-2023 Glucose [Mass/Vol] 130 mg/dL High 65-[address] [facility] HGB A1C (GLYCO-HGB)on 2023 Glucose [Mass/Vol] 148 mg/dL Normal [facility] Comment on above: Performed By: #### C BCA, CMP, THYR, HA1C, 55319-9 #### [facility] ([id number]) [address] [facility] [address] [place] [address] HbA1c (Bld) [Mass fraction] 6.8 % High 4.4-5.6 [facility] Comment on above: Result Comment: NOTE ADA Guidelines Result HgbA1c Normal : less than 5.7 % Prediabetes : 5.7 % to 6.4 % Diabetes : > 6.4 % Use with caution in patients with abnormal hemoglobin variants as the half-life of red blood cells and in vivo glycation rates are affected. Performed By: #### C BCA, CMP, THYR, HA1C, 76076-2 #### [facility] ([id number]) [address], [address] [place] [address] STREP B PCR VAG/RECTon 10-30 S. agalactiae Org specific cx Ql (Vag+Rectum) Negative Normal NEG [facility] Comment on above: Performed By: #### 7 2607-5 #### [facility] ([id number]) [facility] [address] [address] T. pallidum IgG+IgM IA Ql (S )on 10-31-2023 Syphilis Total <0.2 Normal 0.0-0.8 [facility] Comment on above: Result Comment: NON REACTIVE No serologic evidence of infection to Treponema pallidum (syphilis). Repeat testing may be considered in patients with suspected acute or primary syphilis in 2 to 4 weeks. Performed By: #### C BCA, CMP, THYR, HA1C, 91429-6 #### [facility] ([id number]) [address] [place] [address], [address] [address] THYROID PROFILEon 10-31-2023 Free T4 [Mass/Vol] 0.75 ng/dL Normal 0.61-1.[address] [facility] Comment on above: Performed By: #### C BCA, CMP, THYR, HA1C, 53643-8 #### [facility] ([id number]) [address] [place] [address] TSH 2.80 uIU/mL Normal 0.49-4.67 [facility] Comment on above: Performed By: #### C BCA, CMP, THYR, HA1C, 05342-5 #### [facility] ([id number]) [address] [place] [address], [address] [address] URINALYSISon 10-31-2023 Bilirubin Ql (U) Negative Normal NEG [facility] Comment on above: Performed By: #### U A #### [facility] ([id number]) [address] [place] [address] BLOOD/HGB Negative Normal NEG [facility] Comment on above: Performed By: #### U A #### [facility] ([id number]) [address] [place] [address] [address] [place] [address] Color (U) YELLOW Normal YELLOW [facility] Comment on above: Performed By: #### U A #### [facility] ([id number]) [address], [address] [place] [address] Glucose Ql (U) 50 mg/dL Abnormal NEG [facility] Comment on above: Performed By: #### U A #### [facility] ([id number]) [address], [address] [place] [address] Ketones Ql (U) 10 mg/dL Abnormal NEG [facility] Comment on above: Performed By: #### U A #### [facility] ([id number]) [address] [place] [address] Leukocyte esterase Test strip Ql (U) Large Abnormal NEG [facility] Comment on above: Performed By: #### U A #### [facility] ([id number]) [address], [address] [place] [address] MUCOUS PRESENT Abnormal NONE [facility] Comment on above: Performed By: #### U A #### [facility] ([id number]) [address], [address] [place] [address] Nitrite Ql (U) Negative Normal NEG [facility] Comment on above: Performed By: #### U A #### [facility] ([id number]) [address], [address] [place] [address] pH (U) 6.5 [pH] Normal 5.0-8.5 [facility] Comment on above: Performed By: #### U A #### [facility] ([id number]) [address], [address] [place] [address] Protein Ql (U) 70 mg/dL Abnormal NEG [facility] Comment on above: Performed By: #### U A #### [facility] ([id number]) [address] [place] [address] R.B.CELLS 2 /hpf Normal 0-5 [facility] Comment on above: Performed By: #### U A #### [facility] ([id number]) [address] [place] [address] Specific gravity (U) [Rel density] 1.039 High 1.003-1.035 [facility] Comment on above: Performed By: #### U A #### [facility] ([id number]) [address] [place] [address] SQUAMOUS EPITHELIUM 18 /hpf High 0-5 [facility] Comment on above: Performed By: #### U A #### [facility] ([id number]) [address], [address] [place] [address] TURBIDITY HAZY Abnormal CLEAR [facility] Comment on above: Performed By: #### U A #### [facility] ([id number]) [address] [place] [address] Urobilinogen Qn (U) 4 {Sariah'U}/dL High <1.1 [facility] Comment on above: Performed By: #### U A #### [facility] ([id number]) [address] [address] [place] [address] W.B.CELLS 36 /hpf High 0-5 [facility] Comment on above: Performed By: #### U A #### [facility] ([id number]) [address] [address] [place] [address] URINE CULTUREon 10-31-2023 Bacteria identified Cx Nom (U) SPECIMEN NOTES URINE RECEIVED WITHOUT PRESERVATIVE CULTURE RESULTS 10-50,000 ORGANISMS/mL NORMAL UROGENITAL LEANA Normal [facility] Comment on above: Performed By: #### C BCA, CMP, THYR, HA1C, 10148-1 #### [facility] ([id number]) [address] [place] [address], [address] [place] [address] VAGINITIS PANEL PCRon 2023 VAGINITIS PANEL PCR [...] clinical presentation to determine patient diagnosis. Normal [facility] Comment on above: Performed By: #### C BCA, CMP, [place], [place], 39[address]-9 #### [facility] ([id number]) [address] [place] [address], [address] [place] [address] ED Prov Noteon 10-13-2023 ED Prov Note ED PROVIDER NOTE [facility] EM[facility] NAME: Riri Dempsey AGE: 28 y.o. : 1995 VISIT DATE: 10/13/2023 CSN: [id number] PCP: Gaye Josue, LORI Chief Complaint Patient presents with Leg Pain [...] minutes she had diffuse abdominal tightness like Catron Cochran contractions she said. It happened to [...] She has yet to talk with her SUSTAINABILITY COACH about any of this and they have told her they can get her in for over a week. They recommended that she come to emergency department. Her local [place] does not have SUSTAINABILITY COACH services so she came here. She typically gets her OB care at [facility] by Dr. Loy Asher. Additionally she states [...] to speak (more content not included)... Normal [facility] URINALYSISon 10-13-2023 BACTERIA, URINE Few Abnormal None Seen [facility] Comment on above: Order Comment: Micro scopic examination is performed on all urinalysis samples and only positive findings are reported. The test for blood on the chemical analytic portion of urinalysis may also be positive due to hemoglobinuria and myoglobinuria and if red blood cells are present they are quantified by microscopic examination. Performed By: #### 4 6625 #### LAB [address] [place] [address] Diego Hamilton M.D. [id number] BILIRUBIN, URINE Positive Abnormal Negative [facility] Comment on above: Order Comment: Micro [...] Performed By: #### 4 6625 #### [place] [address] Diego Hamilton M.D. [id number] BLOOD, URINE Negative Normal Negative [facility] Comment on above: Order Comment: Micro scopic examination is performed on all urinalysis samples and only positive findings are reported. The test for blood on the chemical analytic portion of urinalysis may also be positive due to hemoglobinuria and myoglobinuria and if red blood cells are present they are quantified by microscopic examination. Performed By: #### 4 6625 #### [address] [place] [address] Diego Hamilton M.D. [id number] Clarity (U) Clear Normal Clear [facility] Comment on above: Order Comment: Micro scopic examination is performed on all urinalysis samples and only positive findings are reported. The test for blood on the chemical analytic portion of urinalysis may also be positive due to hemoglobinuria and myoglobinuria and if red blood cells are present they are quantified by microscopic examination. Performed By: #### 4 6625 #### SH LAB [address] [place] [address] Diego Hamilton M.D. [id number] Color (U) Kay Abnormal Colorless, Yellow [facility] Comment on above: Order Comment: Micro scopic examination is performed on all urinalysis samples and only positive findings are reported. The test for blood on the chemical analytic portion of urinalysis may also be positive due to hemoglobinuria and myoglobinuria and if red blood cells are present they are quantified by microscopic examination. Performed By: #### 4 6625 #### [facility] [place] [id number] Diego Hamilton M.D. [id number] Glucose Ql (U) Negative Normal [facility] Comment on above: Order Comment: Micro scopic examination is performed on all urinalysis samples and only positive findings are reported. The test for blood on the chemical analytic portion of urinalysis may also be positive due to hemoglobinuria and myoglobinuria and if red blood cells are present they are quantified by microscopic examination. Performed By: #### 4 6625 #### [facility] [address] [place] [address] Diego Hamilton M.D. [id number] Ketones Ql (U) >=80 Abnormal [facility] Comment on above: Order Comment: Micro scopic examination is performed on all urinalysis samples and only positive findings are reported. The test for blood on the chemical analytic portion of urinalysis may also be positive due to hemoglobinuria and myoglobinuria and if red blood cells are present they are quantified by microscopic examination. Performed By: #### 4 6625 #### [facility] [place] [id number] Diego Hamilton M.D. [id number] Leukocyte esterase Test strip Ql (U) Small Abnormal [facility] Comment on above: Order Comment: Micro scopic examination is performed on all urinalysis samples and only positive findings are reported. The test for blood on the chemical analytic portion of urinalysis may also be positive due to hemoglobinuria and myoglobinuria and if red blood cells are present they are quantified by microscopic examination. Performed By: #### 4 6625 #### [facility] [address] [place], [place] [id number] Diego Hamilton M.D. [id number] NITRITE, URINE Negative Normal [facility] Comment on above: Order Comment: Micro scopic examination is performed on all urinalysis samples and only positive findings are reported. The test for blood on the chemical analytic portion of urinalysis may also be positive due to hemoglobinuria and myoglobinuria and if red blood cells are present they are quantified by microscopic examination. Performed By: #### 4 6625 #### [address] [address] Diego Hamilton M.D. [id number] pH (U) 6.5 [pH] Normal 5.0-7.0 [facility] Comment on above: Order Comment: Micro scopic examination is performed on all urinalysis samples and only positive findings are reported. The test for blood on the chemical analytic portion of urinalysis may also be positive due to hemoglobinuria and myoglobinuria and if red blood cells are present they are quantified by microscopic examination. Performed By: #### 4 6625 #### [place] [address] Diego Hamilton M.D. [id number] Protein (U) [Mass/Vol] 30 mg/dL Abnormal Negative [facility] Comment on above: Order Comment: Micro [...] compounds. Performed By: #### 4 6625 #### [place] [address] Diego Hamilton M.D. [id number] RBC LM.HPF (Urine sed) [#/Area] 2 /[HPF] Normal 0-3 [facility] Comment on above: Order Comment: Micro scopic examination is performed on all urinalysis samples and only positive findings are reported. The test for blood on the chemical analytic portion of urinalysis may also be positive due to hemoglobinuria and myoglobinuria and if red blood cells are present they are quantified by microscopic examination. Performed By: #### 4 6625 #### [address] [address] Diego Hamilton M.D. [id number] Specific gravity (U) [Rel density] >= High 1.005-1.025 [facility] Comment on above: Order Comment: Micro scopic examination is performed on all urinalysis samples and only positive findings are reported. The test for blood on the chemical analytic portion of urinalysis may also be positive due to hemoglobinuria and myoglobinuria and if red blood cells are present they are quantified by microscopic examination. Performed By: #### 4 6625 #### [facility] [place] [address] Diego Hamilton M.D. [id number] SQUAMOUS EPITHELIAL 7 /hpf High 0-4 [facility] Comment on above: Order Comment: Micro scopic examination is performed on all urinalysis samples and only positive findings are reported. The test for blood on the chemical analytic portion of urinalysis may also be positive due to hemoglobinuria and myoglobinuria and if red blood cells are present they are quantified by microscopic examination. Performed By: #### 4 6625 #### [facility] [place] [address] Diego Hamilton M.D. [id number] UROBILINOGEN, URINE <2.0 Normal <2.0 [facility] Comment on above: Order Comment: Micro scopic examination is performed on all urinalysis samples and only positive findings are reported. The test for blood on the chemical analytic portion of urinalysis may also be positive due to hemoglobinuria and myoglobinuria and if red blood cells are present they are quantified by microscopic examination. Performed By: #### 4 6625 #### [place] [address] Diego Hamilton M.D. [id number] WBC LM.HPF (Urine sed) [#/Area] 45 /[HPF] High 0-5 [facility] Comment on above: Order Comment: Micro scopic examination is performed on all urinalysis samples and only positive findings are reported. The test for blood on the chemical analytic portion of urinalysis may also be positive due to hemoglobinuria and myoglobinuria and if red blood cells are present they are quantified by microscopic examination. Performed By: #### 4 6625 #### [facility] [place] [address] Diego Hamilton M.D. [id number] URINE AEROBIC CULTUREon 10-03 URINE AEROBIC CULTURE URINE CULTURE No Growth (<1,000 CFU/mL) Normal [facility] Comment on above: Performed By: #### 4 4053 #### [facility] [address] [place] [address] Hilton Fox M.D. [id number] Basic Metabolic Profon 10-08 Anion gap [Moles/Vol] 18 mmol/L High 9-17 [facility] Comment on above: Performed By: #### C DP, BMP #### [facility] [address] [place] [address] Sales Product Manager: Zayra Chapman MD BUN/CRE Ratio 18 Normal - [facility] Comment on above: Performed By: #### C DP, BMP #### [facility] [address] [place] [address] Sales Product Manager: Zayra Chapman MD Calcium [Mass/Vol] 8.7 mg/dL Normal 8.6-10.4 [facility] Comment on above: Performed By: #### C DP, BMP #### [facility] [address] [place] [address] Sales Product Manager: Zayra Chapman MD Chloride [Moles/Vol] 103 mmol/L Normal 98-107 [facility] Comment on above: Performed By: #### C DP, BMP #### [facility] [address] [place] [address] Sales Product Manager: Zayra Chapman MD CO2 [Moles/Vol] 15 mmol/L Low 20-31 [facility] Comment on above: Performed By: #### C DP, BMP #### [facility] [address] [place] [address] Sales Product Manager: Zayra Chapman MD Creatinine [Mass/Vol] 0.4 mg/dL Low 0.5-0.9 [facility] Comment on above: Performed By: #### C DP, BMP #### [facility] [address] [place] [address] Sales Product Manager: Zayra Chapman MD GFR/1.73 sq M.predicted among non-blacks MDRD (S/P/Bld) [Vol rate/Area] mL/min/{1.73_m2} Normal >60 [facility] Comment on above: Result Comment: These [...] Performed By: #### C DP, BMP #### [facility] [address] [place] [address] Sales Product Manager: Zayra Chapman MD Glucose [Mass/Vol] 143 mg/dL High 70-99 [facility] Comment on above: Performed By: #### C DP, BMP #### [facility] [address] [place] [address] Sales Product Manager: Zayra Chapman MD Potassium [Moles/Vol] 3.6 mmol/L Low 3.7-5.3 [facility] Comment on above: Performed By: #### C DP, BMP #### [facility] [address] [place], [place] [phone] Sales Product Manager: Zayra Chapman MD Sodium [Moles/Vol] 136 mmol/L Normal 135-144 [facility] Comment on above: Performed By: #### C DP, BMP #### [facility] [address] [place] [address] Sales Product Manager: Zayra Chapman MD Urea nitrogen [Mass/Vol] 7 mg/dL Normal 6-20 [facility] Comment on above: Performed By: #### C DP, BMP #### [facility] [address] [place] [phone] Sales Product Manager: Zayra Chapman MD CBC with Diffon 10-09-2023 Abs. Basophil 0.04 k/uL Normal 0.00-0.20 [facility] Comment on above: Performed By: #### C DP, BMP #### [facility] [address] [place] [address] Sales Product Manager: Zayra Chapman MD Abs.Imm.Granulocyte 0.03 k/uL Normal 0.00-0.30 [facility] Comment on above: Performed By: #### C DP, BMP #### [facility] [address] [place] [address] Sales Product Manager: Zayra Chapman MD Abs.Neutrophil (Seg) 6.85 k/uL Normal 2.5-7.0 [facility] Comment on above: Performed By: #### C DP, BMP #### [facility] [address] [place] [address] Sales Product Manager: Zayra Chapman MD Basophils/100 WBC (Bld) 0 % Normal 0-2 [facility] Comment on above: Performed By: #### C DP, BMP #### [facility] [address] [place] [address] Sales Product Manager: Zayra Chapman MD Eosinophils (Bld) [#/Vol] 0.08 10*3/uL Normal 0.00-0.40 [facility] Comment on above: Performed By: #### C DP, BMP #### [facility] [address] [place] [address] Sales Product Manager: Zayra Chapman MD Eosinophils/100 WBC (Bld) 1 % Normal 0-5 [facility] Comment on above: Performed By: #### C DP, BMP #### [facility] [address] [place] [address] Sales Product Manager: Zayra Chapman MD Erythrocyte distribution width (RBC) [Ratio] 13.1 % Normal 12.1-15.2 [facility] Comment on above: Performed By: #### C DP, BMP #### [facility] [address] [place] [address] Sales Product Manager: Zayra Chapman MD Hematocrit (Bld) [Volume fraction] 31.5 % Low 36.0-46.0 [facility] Comment on above: Performed By: #### C DP, BMP #### [facility] [address] [place] [address] Sales Product Manager: Zayra Chapman MD Hemoglobin (Bld) [Mass/Vol] 10.3 g/dL Low 12.0-16.0 [facility] Comment on above: Performed By: #### C DP, BMP #### [facility] [address] [place] [phone] Sales Product Manager: Zayra Chapman MD Immature granulocytes/100 WBC (Bld) 0 % Normal 0-5 [facility] Comment on above: Performed By: #### C DP, BMP #### [facility] [address] [place] [phone] Sales Product Manager: Zayra Chapman MD Lymphocytes (Bld) [#/Vol] 1.83 10*3/uL Normal 1.00-4.80 [facility] Comment on above: Performed By: #### C DP, BMP #### [facility] [address] [place] [phone] Sales Product Manager: Zayra Chapman MD Lymphocytes/100 WBC (Bld) 20 % Normal 15-40 [facility] Comment on above: Performed By: #### C DP, BMP #### [facility] [address] [place] [address] Sales Product Manager: Zayra Chapman MD MCH (RBC) [Entitic mass] 27.4 pg Normal 26.0-34.0 [facility] Comment on above: Performed By: #### C DP, BMP #### [facility] [address] [place] [address] Sales Product Manager: Zayra Chapman MD MCHC (RBC) [Mass/Vol] 32.7 g/dL Normal 31.0-37.0 [facility] Comment on above: Performed By: #### C DP, BMP #### [facility] [address] [place] [address] Sales Product Manager: Zayra Chapman MD MCV (RBC) [Entitic vol] 83.8 fL Normal 80.0-100.0 [facility] Comment on above: Performed By: #### C DP, BMP #### [facility] [address] [place] [address] Sales Product Manager: Zayra Chapman MD Monocytes (Bld) [#/Vol] 0.50 10*3/uL Normal 0.00-1.00 [facility] Comment on above: Performed By: #### C DP, BMP #### [facility] [address] [place] [address] Sales Product Manager: Zayra Chapman MD Monocytes/100 WBC (Bld) 5 % Normal 4-8 M [facility] Comment on above: Performed By: #### C DP, BMP #### [facility] [address] [place] [address] Sales Product Manager: Zayra Chapman MD Neutrophil (Seg) 74 % Normal 47-75 [facility] Comment on above: Performed By: #### C DP, BMP #### [facility] [address] [place] [address] Sales Product Manager: Zayra Chapman MD Platelet mean volume (Bld) [Entitic vol] 11.3 fL Normal 6.0-12.0 [facility] Comment on above: Performed By: #### C DP, BMP #### [facility] [address] [place], [place] [phone] Sales Product Manager: Zayra Chapman MD Platelets (Bld) [#/Vol] 201 10*3/uL Normal 140-450 [facility] Comment on above: Performed By: #### C DP, BMP #### [facility] [address] [place] [address] Sales Product Manager: Zayra Chapman MD RBC (Bld) [#/Vol] 3.76 10*6/uL Low 4.00-5.20 [facility] Comment on above: Performed By: #### C DP, BMP #### [facility] [address] [place] [address] Sales Product Manager: Zayra Chapman MD WBC (Bld) [#/Vol] 9.3 10*3/uL Normal 3.5-11.0 [facility] Comment on above: Performed By: #### C DP, BMP #### [facility] [address] [place] [address] Sales Product Manager: Zayra Chapman MD Cult,Urineon 08-20-2023 Cult,Urine Specimen Description .CLEAN CATCH URINE Culture NO SIGNIFICANT GROWTH Report Status FINAL 08/20/2023 Normal [facility] Comment on above: Performed By: #### [place] [facility] [place] #### [facility] [address] [place] [address] Sales Product Manager: Zayra Chapman MD Ultrasound - Officeon 2023 Radiology Study observation (narrative) [facility] HIV 1&2 AB/AG Screen (P24 AG )on 06-20-2023 HIV 1&2 AB/AG Negative [facility] Hemoglobin A1con 06-20-2023 HbA1c (Bld) [Mass fraction] 7.2 % Abnormal 4.0 - 6.0 % [facility] Interpretation and review of laboratory results Abnormal [facility] Hepatitis B surface antigeno n 06-20-2023 Hepatitis B Surface Antigen Negative [facility] No Panel Informationon 06-20 [facility] Rubella IGG immune statuson 06-20-2023 Rubella immune IgG immune [facility] Syphilis Total(Unknown Syphi lis Status)on 06-20-2023 Syphilis Non-Reactive [facility] Type and screenon 06-20-2023 Abo/Rh(D) Positive [facility] Ultrasound - Officeon 2023 [facility] CBC with Diffon 02-13-2023 Abs. Basophil 0.01 k/uL Normal 0.00-0.20 [facility] Comment on above: Performed By: #### L IPR, T4, GLYHGB, T3 #### [place] [address] Sales Product Manager: Antoine Wilson MD #### CP, TSH, CDP, ZFAST #### [facility] [address] [place] [address] Sales Product Manager: Zayra Chapman MD Abs.Imm.Granulocyte 0.02 k/uL Normal 0.00-0.30 [facility] Comment on above: Performed By: #### L IPR, T4, GLYHGB, T3 #### [place] [phone] Sales Product Manager: Antoine Wilson MD #### CP, TSH, CDP, ZFAST #### [facility] [address] [place] [phone] Sales Product Manager: Zayra Chapman MD Abs.Neutrophil (Seg) 4.27 k/uL Normal 2.5-7.0 [facility] Comment on above: Performed By: #### L IPR, T4, GLYHGB, T3 #### [place] [phone] Sales Product Manager: Antoine Wilson MD #### CP, TSH, CDP, ZFAST #### [facility] [address] [place], [place] [phone] Sales Product Manager: Zayra Chapman MD Basophils/100 WBC (Bld) 0 % Normal 0-2 M [facility] Comment on above: Performed By: #### L IPR, T4, GLYHGB, T3 #### [address] [phone] Sales Product Manager: Antoine Wilson MD #### CP, TSH, CDP, ZFAST #### [facility] [address] [place], [place] [phone] Sales Product Manager: Zayra Chapman MD Eosinophils (Bld) [#/Vol] 0.07 10*3/uL Normal 0.00-0.40 [facility] Comment on above: Performed By: #### L IPR, T4, GLYHGB, T3 #### [address] [phone] Sales Product Manager: Antoine Wilson MD #### CP, TSH, CDP, ZFAST #### [facility] [address] [place], [place] [phone] Sales Product Manager: Zayra Chapman MD Eosinophils/100 WBC (Bld) 1 % Normal 0-5 [facility] Comment on above: Performed By: #### L IPR, T4, GLYHGB, T3 #### [address] [phone] Sales Product Manager: Antoine Wilson MD #### CP, TSH, CDP, ZFAST #### [facility] [address] [place], [place] [phone] Sales Product Manager: Zayra Chapman MD Erythrocyte distribution width (RBC) [Ratio] 13.2 % Normal 12.1-15.2 [facility] Comment on above: Performed By: #### L IPR, T4, GLYHGB, T3 #### [address] [phone] Sales Product Manager: Antoine Wilson MD #### CP, TSH, CDP, ZFAST #### [facility] [address] [place], [place] [phone] Sales Product Manager: Zayra Chapman MD Hematocrit (Bld) [Volume fraction] 41.9 % Normal 36.0-46.0 [facility] Comment on above: Performed By: #### L IPR, T4, GLYHGB, T3 #### [address] [phone] Sales Product Manager: Antoine Wilson MD #### CP, TSH, CDP, ZFAST #### [facility] [address] [place] [phone] Sales Product Manager: Zayra Chapman MD Hemoglobin (Bld) [Mass/Vol] 13.5 g/dL Normal 12.0-16.0 [facility] Comment on above: Performed By: #### L IPR, T4, GLYHGB, T3 #### [address] [phone] Sales Product Manager: Antoine Wilson MD #### CP, TSH, CDP, ZFAST #### [facility] [address] [place] [address] Sales Product Manager: Zayra Chapman MD Immature granulocytes/100 WBC (Bld) 0 % Normal 0-5 [facility] Comment on above: Performed By: #### L IPR, T4, GLYHGB, T3 #### [address] [phone] Sales Product Manager: Antoine Wilson MD #### CP, TSH, CDP, ZFAST #### [facility] [address] [place] [phone] Sales Product Manager: Zayra Chapman MD Lymphocytes (Bld) [#/Vol] 1.14 10*3/uL Normal 1.00-4.80 [facility] Comment on above: Performed By: #### L IPR, T4, GLYHGB, T3 #### [facility] [address] [place], [place] [phone] Sales Product Manager: Antoine Wilson MD #### CP, TSH, CDP, ZFAST #### [facility] [address] [place], [place] [phone] Sales Product Manager: Zayra Chapman MD Lymphocytes/100 WBC (Bld) 20 % Normal 15-40 [facility] Comment on above: Performed By: #### L IPR, T4, GLYHGB, T3 #### [address] [phone] Sales Product Manager: Antoine Wilson MD #### CP, TSH, CDP, ZFAST #### [facility] [address] [place], [place] [phone] Sales Product Manager: Zayra Chapman MD MCH (RBC) [Entitic mass] 26.6 pg Normal 26.0-34.0 [facility] Comment on above: Performed By: #### L IPR, T4, GLYHGB, T3 #### [address] [phone] Sales Product Manager: Antoine Wilson MD #### CP, TSH, CDP, ZFAST #### [facility] [address] [place], [place] [phone] Sales Product Manager: Zayra Chapman MD MCHC (RBC) [Mass/Vol] 32.2 g/dL Normal 31.0-37.0 [facility] Comment on above: Performed By: #### L IPR, T4, GLYHGB, T3 #### [address] [phone] Sales Product Manager: Antoine Wilson MD #### CP, TSH, CDP, ZFAST #### [facility] [address] [place], [place] [phone] Sales Product Manager: Zayra Chapman MD MCV (RBC) [Entitic vol] 82.6 fL Normal 80.0-100.0 M [facility] Comment on above: Performed By: #### L IPR, T4, GLYHGB, T3 #### [address] [phone] Sales Product Manager: Antoine Wilson MD #### CP, TSH, CDP, ZFAST #### [facility] [address] [place], [place] [phone] Sales Product Manager: Zarya Chapman MD Monocytes (Bld) [#/Vol] 0.30 10*3/uL Normal 0.00-1.00 [facility] Comment on above: Performed By: #### L IPR, T4, GLYHGB, T3 #### [address] [phone] Sales Product Manager: Antoine Wilson MD #### CP, TSH, CDP, ZFAST #### [facility] [address] [place], [place] [phone] Sales Product Manager: Zayra Chapman MD Monocytes/100 WBC (Bld) 5 % Normal 4-8 M [facility] Comment on above: Performed By: #### L IPR, T4, GLYHGB, T3 #### [address] [phone] Sales Product Manager: Antoine Wilson MD #### CP, TSH, CDP, ZFAST #### [facility] [address] [place], [place] [phone] Sales Product Manager: Zayra Chapman MD Neutrophil (Seg) 74 % Normal 47-75 [facility] Comment on above: Performed By: #### L IPR, T4, GLYHGB, T3 #### [address] [phone] Sales Product Manager: Antoine Wilson MD #### CP, TSH, CDP, ZFAST #### [facility] [address] [place], [place] [phone] Sales Product Manager: Zayra Chapman MD Platelet mean volume (Bld) [Entitic vol] 11.0 fL Normal 6.0-12.0 [facility] Comment on above: Performed By: #### L IPR, T4, GLYHGB, T3 #### [address] [address] Sales Product Manager: Antoine Wilson MD #### CP, TSH, CDP, ZFAST #### [facility] [address] [place], [place] [phone] Sales Product Manager: Zayra Chapman MD Platelets (Bld) [#/Vol] 206 10*3/uL Normal 140-450 [facility] Comment on above: Performed By: #### L IPR, T4, GLYHGB, T3 #### [address] [address] Sales Product Manager: Antoine Wilson MD #### CP, TSH, CDP, ZFAST #### [facility] [address] [place], [place] [phone] Sales Product Manager: Zayra Chapman MD RBC (Bld) [#/Vol] 5.07 10*6/uL Normal 4.00-5.20 [facility] Comment on above: Performed By: #### L IPR, T4, GLYHGB, T3 #### [address] [address] Sales Product Manager: Antoine Wilson MD #### CP, TSH, CDP, ZFAST #### [facility] [address] [place], [place] [phone] Sales Product Manager: Zayra Chapman MD WBC (Bld) [#/Vol] 5.8 10*3/uL Normal 3.5-11.0 [facility] Comment on above: Performed By: #### L IPR, T4, GLYHGB, T3 #### [address] [phone] Sales Product Manager: Antoine Wilson MD #### CP, TSH, CDP, ZFAST #### [facility] [address] [place], [place] [phone] Sales Product Manager: Zayra Chapman MD Comp Metabolic Profon 2022 Albumin [Mass/Vol] 4.3 g/dL Normal 3.5-5.2 [facility] Comment on above: Performed By: #### L IPR, T4, GLYHGB, T3 #### [place] [address] [place], [place] [phone] Sales Product Manager: Antoine Wilson MD #### CP, TSH, CDP, ZFAST #### [facility] [address] [place], [place] [phone] Sales Product Manager: Zayra Chapman MD Alkaline Phos 127 U/L High 35-104 [facility] Comment on above: Performed By: #### L IPR, T4, GLYHGB, T3 #### [address] [phone] Sales Product Manager: Antoine Wilson MD #### CP, TSH, CDP, ZFAST #### [facility] [address] [place], [place] [phone] Sales Product Manager: Zayra Chapman MD ALT [Catalytic activity/Vol] 51 U/L High 5-33 [facility] Comment on above: Performed By: #### L IPR, T4, GLYHGB, T3 #### [address] [phone] Sales Product Manager: Antoine Wilson MD #### CP, TSH, CDP, ZFAST #### [facility] [address] [place], [place] [phone] Sales Product Manager: Zayra Chapman MD Anion gap [Moles/Vol] 12 mmol/L Normal 9-17 [facility] Comment on above: Performed By: #### L IPR, T4, GLYHGB, T3 #### [facility] [address] [place] [address] Sales Product Manager: Antoine Wilson MD #### CP, TSH, CDP, ZFAST #### [facility] [address] [place] [address] Sales Product Manager: Zayra Chapman MD AST [Catalytic activity/Vol] 31 U/L Normal <32 [facility] Comment on above: Performed By: #### L IPR, T4, GLYHGB, T3 #### [address] [address] Sales Product Manager: Antoine Wilson MD #### CP, TSH, CDP, ZFAST #### [facility] [address] [place], [place] [phone] Sales Product Manager: Zayra Chapman MD Bilirubin [Mass/Vol] 0.3 mg/dL Normal 0.3-1.2 [facility] Comment on above: Performed By: #### L IPR, T4, GLYHGB, T3 #### [address] [address] Sales Product Manager: Antoine Wilson MD #### CP, TSH, CDP, ZFAST #### [facility] [address] [place], [place] [phone] Sales Product Manager: Zayra Chapman MD BUN/CRE Ratio 16 Normal 9-20 [facility] Comment on above: Performed By: #### L IPR, T4, GLYHGB, T3 #### [address] [address] Sales Product Manager: Antoine Wilson MD #### CP, TSH, CDP, ZFAST #### [facility] [address] [place] [phone] Sales Product Manager: Zayra Chapman MD Calcium [Mass/Vol] 9.0 mg/dL Normal 8.6-10.4 [facility] Comment on above: Performed By: #### L IPR, T4, GLYHGB, T3 #### [address] [phone] Sales Product Manager: Antoine Wilson MD #### CP, TSH, CDP, ZFAST #### [facility] [address] [place], [place] 1945490 Sales Product Manager: Zayra Chapman MD Chloride [Moles/Vol] 100 mmol/L Normal 98-107 [facility] Comment on above: Performed By: #### L IPR, T4, GLYHGB, T3 #### [address] [phone] Sales Product Manager: Antoine Wilson MD #### CP, TSH, CDP, ZFAST #### [facility] [address] [place], [place] [phone] Sales Product Manager: Zayra Chapman MD CO2 [Moles/Vol] 24 mmol/L Normal 20-31 [facility] Comment on above: Performed By: #### L IPR, T4, GLYHGB, T3 #### [address] [phone] Sales Product Manager: Antoine Wilson MD #### CP, TSH, CDP, ZFAST #### [facility] [address] [place], [place] [phone] Sales Product Manager: Zayra Chapman MD Creatinine [Mass/Vol] 0.7 mg/dL Normal 0.5-0.9 [facility] Comment on above: Performed By: #### L IPR, T4, GLYHGB, T3 #### [address] [phone] Sales Product Manager: Antoine Wilson MD #### CP, TSH, CDP, ZFAST #### [facility] [address] [place], [place] [phone] Sales Product Manager: Zayra Chapman MD GFR/1.73 sq M.predicted among non-blacks MDRD (S/P/Bld) [Vol rate/Area] mL/min/{1.73_m2} Normal >60 [facility] Comment on above: Result Comment: These [...] #### L IPR, T4, GLYHGB, T3 #### [address] [phone] Sales Product Manager: Antoine Wilson MD #### CP, TSH, CDP, ZFAST #### [facility] [address] [place] [address] Sales Product Manager: Zayra Chapman MD Glucose [Mass/Vol] 367 mg/dL High 70-99 [facility] Comment on above: Performed By: #### L IPR, T4, GLYHGB, T3 #### [address] [phone] Sales Product Manager: Antoine Wilson MD #### CP, TSH, CDP, ZFAST #### [facility] [address] [place] [address] Sales Product Manager: Zayra Chapman MD Potassium [Moles/Vol] 4.3 mmol/L Normal 3.7-5.3 [facility] Comment on above: Performed By: #### L IPR, T4, GLYHGB, T3 #### [address] [phone] Sales Product Manager: Antoine Wilson MD #### CP, TSH, CDP, ZFAST #### [facility] [address] [place] [address] Sales Product Manager: Zayra Chapman MD Protein [Mass/Vol] 7.0 g/dL Normal 6.4-8.3 [facility] Comment on above: Performed By: #### L IPR, T4, GLYHGB, T3 #### [address] [address] Sales Product Manager: Antoine Wilson MD #### CP, TSH, CDP, ZFAST #### [facility] [address] [place], [place] [phone] Sales Product Manager: Zayra Chapman MD Sodium [Moles/Vol] 136 mmol/L Normal 135-144 [facility] Comment on above: Performed By: #### L IPR, T4, GLYHGB, T3 #### [address] [address] Sales Product Manager: Antoine Wilson MD #### CP, TSH, CDP, ZFAST #### [facility] [address] [place], [place] [phone] Sales Product Manager: Zayra Chapman MD Urea nitrogen [Mass/Vol] 11 mg/dL Normal 6-20 [facility] Comment on above: Performed By: #### L IPR, T4, GLYHGB, T3 #### [address] [phone] Sales Product Manager: Antoine Wilson MD #### CP, TSH, CDP, ZFAST #### [facility] [address] [place], [place] [phone] Sales Product Manager: Zayra Chapman MD Hemoglobin A1Con 02-13-2023 Glucose [Mass/Vol] 280 mg/dL Normal [facility] Comment on above: Result Comment: The ADA and AACC recommend providing the estimated average glucose result to permit better patient understanding of their HBA1c result. Performed By: #### U MICAO, UHCG, UA #### [facility] [address] [place], [place] [phone] Sales Product Manager: Zayra Chapman MD HbA1c (Bld) [Mass fraction] 11.4 % High 4.0-6.0 [facility] Comment on above: Performed By: #### Julien DAV[place] [facility] [place] #### [facility] [address] [place], [place] [phone] Sales Product Manager: Zayra Chapman MD Lipid Profileon 02-13-2023 Cholesterol [Mass/Vol] 215 mg/dL High 0-199 [facility] Comment on above: Result Comment: Cholesterol Guidelines: <200 Desirable 200-240 Borderline >240 Undesirable Performed By: #### Julien DAVIDSON [facility] [place] #### [facility] [address] [place], [place] [phone] Sales Product Manager: Zayra Chapman MD Cholesterol in HDL [Mass/Vol] 27 mg/dL Low >40 [facility] Comment on above: Result Comment: HDL Guidelines: <40 Undesirable 40-59 Borderline >59 Desirable Performed By: #### Julien DAVIDSON [facility] [place] #### [facility] [address] [place], [place] [phone] Sales Product Manager: Zayra Chapman MD Cholesterol in LDL [Mass/Vol] 130 mg/dL High 0-100 [facility] Comment on above: Result Comment: LDL Guidelines: <100 Desirable 100-129 Near to/above Desirable 130-159 Borderline >159 Undesirable Direct (measured) LDL and calculated LDL are not interchangeable tests. Performed By: #### Julien DAVIDSON [facility] [place] #### [facility] [address] [place], [place] [phone] Sales Product Manager: Zayra Chapman MD Cholesterol in VLDL [Mass/Vol] 58 mg/dL Normal [facility] Comment on above: Performed By: #### Julien DAVIDSON [facility] [place] #### [facility] [address] [place], [place] [phone] Sales Product Manager: Zayra Chapman MD Cholesterol.total/Otilia sterol in HDL [Mass ratio] 8.0 {ratio} Normal [facility] Comment on above: Performed By: #### U STUART [facility] [place] #### [facility] [address] [place] [address] Sales Product Manager: Zayra Chapman MD Triglyceride [Mass/Vol] 291 mg/dL High 0-149 [facility] Comment on above: Result Comment: Triglyceride Guidelines: <150 Desirable 150-199 Borderline 200-499 High >499 Very high Based on AHA Guidelines for fasting triglyceride, February 2012. Performed By: #### Julien DAVIDSON [facility] [place] #### [facility] [address] [place], [place] [phone] Sales Product Manager: Zayra Chapman MD Patient fasting?on 3 Patient fasting? YES Normal [facility] Comment on above: Performed By: #### L IPR, T4, GLYHGB, T3 #### [address] [place], [place] [phone] Sales Product Manager: Antoine Wilson MD #### CP, TSH, CDP, ZFAST #### [facility] [address] [place] [address] Sales Product Manager: Zayra Chapman MD Thyroid Stim. Horm.on 2022 Thyroid Stim. Horm. 1.43 uIU/mL Normal 0.30-5.00 [facility] Comment on above: Performed By: #### Julien DAVIDSON [facility] [place] #### [facility] [address] [place] [address] Sales Product Manager: Zayra Chapman MD Thyroxine T4on 02-13-2023 T4 [Mass/Vol] 5.9 ug/dL Normal 4.5-11.7 [facility] Comment on above: Performed By: #### Julien DAVIDSON [facility] [place] #### [facility] [address] [place] [address] Sales Product Manager: Zayra Chapman MD Triiodothyronine T3on 2022 Triiodothyronine T3 109 ng/dL Normal 80-200 [facility] Comment on above: Performed By: #### U MICAO, [facility] [place] #### [facility] [address] [place], [place] [phone] Sales Product Manager: Zayra Chapman MD Chlamydia/GC DNA, Uron 12-23 Chlamydia Probe, Ur Negative Normal NEG [facility] Comment on above: Result Comment: CHLA [...] target. Performed By: #### U CGP #### [address] [address] Sales Product Manager: Antoine Wilson MD Gonorrhea Probe, Ur Negative Normal NEG [facility] Comment on above: Result Comment: NEIS [...] target. Performed By: #### U CGP #### [facility] [address] [place] [address] Sales Product Manager: Antoine Wilson MD Cult,Urineon 12-21-2022 Cult,Urine Specimen [...] INTERMEDIATE Trimethoprim/Sulfa >=320 RESISTANT Resistant [facility] Comment on above: Performed By: #### U RC #### [facility] [address] [place] [address] Sales Product Manager: Antoine Wilson MD [facility] [address] [place] [address] Sales Product Manager: Zayra Chapman MD HCG, ,Urineon 12-19 Beta HCG ( test) Ql (U) Negative Normal NEG [facility] Comment on above: Performed By: #### U MICAO, CG, UA #### [facility] [address] [place] [address] Sales Product Manager: Zayra Chapman MD Microscopic Urinalysison - [facility] Bacteria LM Ql (Urine sed) 4+ Abnormal None [facility] Epithelial cells LM.HPF (Urine sed) [#/Area] 2 TO 5 /HPF [facility] RBC LM.HPF (Urine sed) [#/Area] 2 TO 5 [facility] WBC LM.HPF (Urine sed) [#/Area] 50 TO 100 0 /HPF [facility] Yeast LM Ql (Urine sed) OCCASIONAL Abnormal None B ON [facility] No Panel Informationon 12-19 Interpretation and review of laboratory results Abnormal [facility] , Urineon 3 HCG ( test) Ql (U) Negative NEGATIVE [facility] Urinalysison 12-19-2022 Bilirubin Ql (U) Negative NEGATIVE [facility] Glucose Test strip (U) [Mass/Vol] 1000 mg/dL Abnormal NEGATIVE mg/dL [facility] Hemoglobin Auto test strip Ql (U) 1+ Abnormal NEGATIVE [facility] Ketones (U) [Mass/Vol] Negative NEGAT [place] mg/dL [facility] Nitrite Ql (U) Positive Abnormal NEGATIVE [facility] pH (U) 6.0 [pH] 5.0 - 8.0 [facility] Protein (U) [Mass/Vol] 1+ Abnormal NEGAT [place] mg/dL [facility] Specific gravity (U) [Rel density] 1.010 1.005 - 1.030 [facility] Urobilinogen Qn (U) Normal 0.0 - 1. 0 EU/dL [facility] Urinalysis, Routineon 2022 Bilirubin, SemiQt,Ur Negative Normal NEG [facility] Comment on above: Performed By: #### U STUART [facility] [place] [place] #### [facility] [address] [place], [place] [phone] Sales Product Manager: Zayra Chapman MD Blood, Urine 1+ Abnormal NEG [facility] Comment on above: Performed By: #### U STUART [facility] [place] #### [facility] [address] [place], [place] [phone] Sales Product Manager: Zayra Chapman MD Clarity (U) Cloudy Abnormal [facility] Comment on above: Performed By: #### U STUART [facility] [place] [place] #### [facility] [address] [place], [place] [phone] Sales Product Manager: Zayra Chapman MD Color (U) Yellow Normal [facility] Comment on above: Performed By: #### U STUART [facility] [place] [place] #### [facility] [address] [place] [address] Sales Product Manager: Zayra Chapman MD Comment Normal [facility] Comment on above: Performed By: #### U STUART [facility] [place] [place] #### [facility] [address] [place] [address] Sales Product Manager: Zayra Chapman MD Glucose Ql (U) 1000 mg/dL Abnormal NEG [facility] Comment on above: Performed By: #### U [facility] #### [facility] [address] [place] [address] Sales Product Manager: Zayra Chapman MD Ketones Ql (U) Negative Normal NEG [facility] Comment on above: Performed By: #### U [facility] #### [facility] [address] [place] [address] Sales Product Manager: Zayra Chapman MD Leukocyte esterase Test strip Ql (U) 3+ Abnormal NEG [facility] Comment on above: Performed By: #### U STUART [facility] [place] #### [facility] [address] [place] [address] Sales Product Manager: Zayra Chapman MD Nitrite,Ur Positive Abnormal NEG [facility] Comment on above: Performed By: #### U SAMIRAO [facility] [place] [place] #### [facility] [address] [place] [address] Sales Product Manager: Zayra Chapman MD PH,Ur 6.0 Normal 5.0-8.0 [facility] Comment on above: Performed By: #### U STUART [facility] [place] [place] #### [facility] [address] [place] [address] Sales Product Manager: Zayra Chapman MD Protein Ql (U) 1+ mg/dL Abnormal NEG [facility] Comment on above: Performed By: #### U MICAO, [facility] [place] [place] #### [facility] [address] [place] [address] Sales Product Manager: Zayra Chapman MD Spec. Calvin,Ur 1.010 Normal 1.005-1.030 [facility] Comment on above: Performed By: #### U [facility] #### [facility] [address] [place], [place] [phone] Sales Product Manager: Zayra Chapman MD Urobilinogen,Ur Normal Normal 0.0-1.0 [facility] Comment on above: Performed By: #### U MICAO, UHCG, UA #### [facility] [address] [place] [address] Sales Product Manager: Zayra Chapman MD Urinalysis,Microon 3 ----- Normal [facility] Comment on above: Performed By: #### U STUART CG, UA #### [facility] [address] [place] [address] Sales Product Manager: Zayra Chapman MD Bacteria 4+ Abnormal NONE [facility] Comment on above: Performed By: #### U STUART CG, UA #### [facility] [address] [place] [address] Sales Product Manager: Zayra Chapman MD Epithelial cells LM Ql (Urine sed) 2 TO 5 Normal [facility] Comment on above: Performed By: #### U STUART UHCG, UA #### [facility] [address] [place] [address] Sales Product Manager: Zayra Chapman MD Urine RBC's 2 TO 5 Normal 0-2 [facility] Comment on above: Performed By: #### U MICAO UHCG, UA #### [facility] [address] [place] [address] Sales Product Manager: Zayra Chapman MD Urine WBC's 50 TO 100 Normal 0 [facility] Comment on above: Performed By: #### U MICAO, UHCG, UA #### [facility] [address] [place], [place] [phone] Sales Product Manager: Zayra Chapman MD Yeast OCCASIONAL Abnormal NONE [facility] Comment on above: Performed By: #### U MICAMar [facility] [place] [place] #### [facility] [address] [place] [address] Sales Product Manager: Zayra Chapman MD Auto Diffon 12-06-2022 Basophils/100 WBC (Bld) 0.8 % Normal 0.0-2.0 [facility] Comment on above: Order Comment: Order Added by Discern Expert. Performed By: #### 2 712131, 2432188, 1124847, [id number] #### [facility] [address] [place] [address] Basophils/Leukocytes Auto (Bld) [Pure # fraction] 0.1 E9/L Normal 0.0-0.2 [facility] Comment on above: Order Comment: Order Added by Discern Expert. Performed By: #### 2 840888, 1337628, 4283327, [id number] #### [facility] [address] [place] [address] Eosinophils/100 WBC (Bld) 0.3 % Normal 0.0-8.0 [facility] Comment on above: Order Comment: Order Added by Discern Expert. Performed By: #### 2 002728, 9192979, 3265563, [id number] #### [facility] [address] [place] [address] Eosinophils/Leukocytes Auto (Bld) [Pure # fraction] 0.0 E9/L Normal 0.0-0.5 [facility] Comment on above: Order Comment: Order Added by Discern Expert. Performed By: #### 2 577659, 4018133, 3320502, [id number] #### [facility] [address] [place] [address] Lymphocytes/100 WBC (Bld) 12.5 % Low 14.0-50.0 [facility] Comment on above: Order Comment: Order Added by Discern Expert. Performed By: #### 2 967437, 1011193, 2201303, 43631054 #### [facility] [address] [place] [address] Lymphocytes/Leukocytes Auto (Bld) [Pure # fraction] 1.3 E9/L Normal 1.0-4.0 [facility] Comment on above: Order Comment: Order Added by Discern Expert. Performed By: #### 2 350285, 3158091, 1153080, [id number] #### [facility] [address] [place] [address] Monocytes/100 WBC (Bld) 4.5 % Normal 4.0-14.0 F [facility] Comment on above: Order Comment: Order Added by Discern Expert. Performed By: #### 2 735444, 8704392, 5518646, 24119863 #### [facility] [address] [place] [address] Monocytes/Leukocytes Auto (Bld) [Pure # fraction] 0.5 E9/L Normal 0.2-1.0 [facility] Comment on above: Order Comment: Order Added by Discern Expert. Performed By: #### 2 311808, 5531182, 7893971, 24524285 #### [facility] [address] [place] [address] Neutrophils/100 WBC (Bld) 81.9 % High 36.0-75.0 [facility] Comment on above: Order Comment: Order Added by Discern Expert. Performed By: #### 2 227452, 6765705, 0351864, 43528144 #### [facility] [address] [place] [address] Neutrophils/Leukocytes Auto (Bld) [Pure # fraction] 8.8 E9/L High 2.0-7.5 [facility] Comment on above: Order Comment: Order Added by Discern Expert. Performed By: #### 2 954978, 8414553, 3867041, 11531462 #### [facility] [address] [place] [address] CBC w/ Auto Diffon 3 Erythrocyte distribution width (RBC) [Ratio] 13.9 % Normal 10.9-14.2 [facility] Comment on above: Performed By: #### 2 117186, 9257884, 2273814, 12100241 #### [facility] [address] [place] [address] Hematocrit (Bld) [Volume fraction] 42.7 % Normal 34.0-46.0 [facility] Comment on above: Performed By: #### 2 124058, 4905949, 1349666, 93715117 #### [facility] [address] [place] [address] Hemoglobin (Bld) [Mass/Vol] 14.2 g/dL Normal 12.0-16.0 [facility] Comment on above: Performed By: #### 2 321580, 9184813, 8262968, 98255566 #### [facility] [address] [place] [address] MCH (RBC) [Entitic mass] 26.8 pg Low 27.0-34.0 [facility] Comment on above: Performed By: #### 2 420666, 6884509, 7581137, 18729897 #### [facility] [address] [place] [address] MCHC (RBC) [Mass/Vol] 33.2 g/dL Normal 31.4-36.0 [facility] Comment on above: Performed By: #### 2 739251, 4154670, 5128036, 39164296 #### [facility] [address] [place] [address] MCV (RBC) [Entitic vol] 80.8 fL Normal 80.0-100.0 F [facility] Comment on above: Performed By: #### 2 446693, 9277458, 2293900, 11300269 #### [facility] [address] [place] [address] Platelet mean volume (Bld) [Entitic vol] 9.8 fL Normal 6.4-10.8 [facility] Comment on above: Performed By: #### 2 002470, 4215439, 2674897, 42364256 #### [facility] [address] [place] [address] Platelets (Bld) [#/Vol] 252.0 E9/L Normal 150.0-500.0 [facility] Comment on above: Performed By: #### 2 568400, 0636273, 6356396, 20132248 #### [facility] [address] [place] [address] RBC (Bld) [#/Vol] 5.3 E12/L Normal 4.3-5.9 [facility] Comment on above: Performed By: #### 2 047339, 4018364, 0836661, 20967560 #### [facility] [address] [place] [address] WBC corrected for nucl RBC Auto (Bld) [#/Vol] 10.7 E9/L Normal 4.0-11.0 [facility] Comment on above: Performed By: #### 2 249667, 5137316, 0196476, 43308466 #### [facility] [address] [place] [address] CHEMISTRYOrdered By: SYSTEM SYSTEM on 12-06-2022 Albumin [...] 137 mmol/L Normal 135 - 145 mmol/L FT Remisol Tetrahydrocannabinol Screen method >50 ng/mL Ql [...] 12 mg/dL Normal 5 - 21 mg/dL FT Remisol Urea nitrogen/Creatinine [Mass ratio] 15 mg/mg Normal 10 - 20 FT Remisol CMPon 12-06-2022 Albumin [Mass/Vol] 4.2 g/dL Normal 3.3-5.0 [facility] Comment on above: Performed By: #### 2 785439, 2046723, 7266969, 26881286 #### [facility] [address] [place] [address] Albumin/Globulin (S) [Mass conc ratio] 1.2 Normal 1.1-2.2 [facility] Comment on above: Performed By: #### 2 749384, 8723181, 6006754, 95142862 #### [facility] [address] [place] [address] ALP [Catalytic activity/Vol] 117 Int._Unit/L High 21-98 [facility] Comment on above: Performed By: #### 2 468961, 5658039, 9138233, 81729362 #### [facility] [address] [place] [address] ALT No additional P-5'-P [Catalytic activity/Vol] 78 Int._Unit/L High 6-46 [facility] Comment on above: Performed By: #### 2 252871, 4612398, 9865253, 70946004 #### [facility] [address] [place] [address] Anion gap [Moles/Vol] 15 mmol/L Normal 6-16 [facility] Comment on above: Performed By: #### 2 559415, 8633015, 1625688, 99864913 #### [facility] [address] [place] [address] AST [Catalytic activity/Vol] 68 Int._Unit/L High 5-43 [facility] Comment on above: Performed By: #### 2 378347, 9620497, 8900174, 26032686 #### [facility] [address] [place] [address] Bilirubin [Mass/Vol] 0.7 mg/dL Normal 0.0-1.1 [facility] Comment on above: Performed By: #### 2 329153, 2240998, 5921340, 63319152 #### [facility] [address] [place] [address] Calcium [Mass/Vol] 9.6 mg/dL Normal 8.9-11.1 [facility] Comment on above: Performed By: #### 2 068414, 0461873, 4443216, 86910593 #### [facility] [address] [place] [address] Chloride [Moles/Vol] 104 mmol/L Normal 101-111 [facility] Comment on above: Performed By: #### 2 231422, 8551506, 9532287, 91614746 #### [facility] [address] [place] [address] CO2 [Moles/Vol] 22 mmol/L Normal 21-31 [facility] Comment on above: Performed By: #### 2 724522, 8019982, 8245368, 10578278 #### [facility] [address] [place] [address] Creatinine [Mass/Vol] 0.8 mg/dL Normal 0.5-1.3 [facility] Comment on above: Performed By: #### 2 810646, 5640473, 8335068, 30811306 #### [facility] [address] [place] [address] Globulin (S) [Mass/Vol] 3.6 g/dL Normal 1.4-4.0 F [facility] Comment on above: Performed By: #### 2 078447, 2221375, 2139338, 37192608 #### [facility] [address] [place] [address] Glucose [Mass/Vol] 244 mg/dL High 55-199 [facility] Comment on above: Result Comment: If t his glucose result represents a fasting glucose, interpretation should refer to the following reference range: 55-99 mg/dL Performed By: #### 2 259302, 2530886, 1883191, 16059535 #### [facility] [address] [place] [address] Potassium [Moles/Vol] 4.3 mmol/L Normal 3.5-5.3 [facility] Comment on above: Performed By: #### 2 621661, 0077514, 3855505, 32632471 #### [facility] [address] [place] [address] Protein [Mass/Vol] 7.8 g/dL Normal 6.0-7.8 [facility] Comment on above: Performed By: #### 2 612289, 1993550, 4533589, 22802610 #### [facility] [address] [place] [address] Sodium [Moles/Vol] 137 mmol/L Normal 135-145 [facility] Comment on above: Performed By: #### 2 [id number], [id number], [id number], [id number] #### [facility] [address] [place] [address] Urea nitrogen [Mass/Vol] 12 mg/dL Normal 5-21 [facility] Comment on above: Performed By: #### 2 [id number], [id number], [id number], [id number] #### [facility] [address] [place] [address] Urea nitrogen/Creatinine [Mass ratio] 15 No Units Normal 10-20 [facility] Comment on above: Performed By: #### 2 [id number], [id number], [id number], [id number] #### [facility] [address] [place] [address] Consent for Treatmenton 08-0 Consent for Treatment [id number] .[id number]:127 Normal [facility] Discharge Instructionson Discharge Instructions [id number] 1.00CD:127 Normal [facility] ED Clinical Summaryon 2022 ED Clinical Summary [address] [address] ED Clinical Summary Person Information Name: RIRI DEMPSEY/[facility] Age: 27 Years : 1995 Sex: Female Language: Haitian PCP: GAYE BARROS Marital Status: Single Visit [...] 16:43:40 12/06/2022 16:43:40 12/06/2022 16:43:40 ADDRESS: [place] [facility] [id number] PHYS DOC NOTES: MEDICAL INFORMATION: Prescriptions Given: Medications to Continue with No Changes Other Medications venlafaxine (Effexor XR 150 mg Cap-ER) PATIENT EDUCATION INFORMATION: Instructions: Suicidal Feelings: How to Help Yourself Follow up: With: Address: When: [facility] In 3 days 12/09/2022 Comments: Follow safety plan. Return to the emergency department with any worsening symptoms. With: Address: When: GAYE JOSUE [address] [place] [address] [facility] In 3 days 12/09/2022 Comments: Call the [...] in 1 month. 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 Return to the emergency department with any worsening symptoms. GAYE JOSUE In 3 days 12/09/2022 EDT [address] [place] [id number] [facility] (1) Additional [...] Known [employer] (more content not included)... Normal [facility] Comment on above: Result Comment: Elec tronically [...] (911 in the [place] ? Call the [facility] and [facility] services helpline (211 in the [place] ? Call or text a suicide hotline to speak with a trained counselor. The following suicide hotlines are available in the [place]: ? 3-042-304-TALK ( or 632 in the [place] ? 7-905-USFAKIN ( ). ? Text 586536. This is the Crisis Text Line in the [place] ? . This is a hotline for Taiwanese speakers. ? . This is a hotline for TTY users. ? 9-086-2-U-YASHIRA ( ). This is a hotline for [...] anyone or being with other people. ? Hjyp-la-biqg conversation is best to help them understand [...] and a mental health checkup. ? Take dgry-jmx-seeqghb and prescription medicines only as told by [...] will hel (more content not included)... Normal [facility] ED Patient Summaryon 023 ED Patient Summary [place] [id number] Patient Discharge Instructions Person Information Name: RIRI DEMPSEY Age: 27 Years Arrival Date: 12/06/2022 13:19:47 Discharge Diagnosis: Situational stress Primary Care Physician: AGYE BARROS Provider Information Primary Provider: Graham Choe DO Advanced Remedial Masseur:None The exam and treatment you received in the Emergency Department were for an urgent problem and are not intended as complete care. It is important that you follow up with a doctor, nurse practitioner, or physician?s minister assistant for ongoing care. If your symptoms become worse or you do not improve as expected and you are unable to reach your usual health care provider, you should return to the Emergency Department. We are available 24 hours a day. RIRI DEMPSEY has been given the following list of patient education materials, prescriptions and follow-up instructions: Follow-up Instructions: With: Address: When: [facility] In 3 days 12/09/2022 Comments: Follow safety plan. Return to the emergency department with any worsening symptoms. With: Address: When: GAYE JOSUE [address] [place] [address] [facility] In 3 days 12/09/2022 Comments: Call the [...] opioids can be used to help relieve zspexpzj-ci-bvcext pain and are often prescribed following a [...] and katja (more content not included)... Normal [facility] Ethanolon 12-06-2022 Ethanol [Mass/Vol] mg/dL Normal <=7 [facility] Comment on above: Performed By: #### 2 [id number] ####[facility] [address] [place] [address] HEMATOLOGYOrdered By: PAAY SYSTEM on 12-06-2022 Basophils/100 WBC (Bld) 0.8 [...] with NPD at time of arrival Normal [facility] SEROLOGYOrdered By: Antonio Stevens on 12-06-2022 HCG.beta subunit (U) [Moles/Vol] Negative Normal [facility] Sero U BetaHcg Qualon 12-06-2022 HCG.beta subunit (U) [Moles/Vol] Negative Normal [facility] Comment on above: Performed By: #### 2 [id number] #### [facility] [address] [place] [address] U Drug Screenon 12-06-2022 Amphetamines Screen method >1000 ng/mL Ql (U) Negative Normal Negative [facility] Comment on above: Result Comment: Nega tive Cutoff: <1000 ng/mL Performed By: #### 2 [id number] ####[facility] [address] [place] [address] Barbiturates Screen Ql (U) Negative Normal Negative [facility] Comment on above: Result Comment: Nega tive Cutoff: <200 ng/mL Performed By: #### 2 [id number] ####[facility] [address] [place] [address] Benzodiazepines Ql (U) Positive Abnormal Negative [facility] Comment on above: Result Comment: Crit ical Result verified by repeat analysis\No confirmation requested by Physican\Unconfirmed by alternate method\Critical Result UD_BENZ:POS Called to [facility] AT ER by JOEL STEVENS And Read Back For Confirmation at: 12/06/2022 14:42:33 Negative Cutoff: <200 ng/mL Performed By: #### 2 [id number] ####[place] [address] [place] [address] Cocaine Ql (U) Negative Normal Negative [facility] Comment on above: Result Comment: Nega tive Cutoff: <300 ng/mL Performed By: #### 2 [id number] ####[facility] [address] [place] [address] Opiates Screen Ql (U) Negative Normal Negative [facility] Comment on above: Result Comment: Nega tive Cutoff: <300 ng/mL Performed By: #### 2 [id number] ####[facility] [address] [place] [address] Phencyclidine Screen method >25 ng/mL Ql (U) Negative Normal Negative [facility] Comment on above: Result Comment: Nega tive Cutoff: <25 ng/mL These drug screen results are to be used for medical (i.e., treatment) purposes only. Unconfirmed drug screening results must not be used for non-medical purposes (e.g., employment testing, legal testing). Performed By: #### 2 [id number] ####[facility] [address] [place] [address] Tetrahydrocannabinol Screen method >50 ng/mL Ql (U) Positive Abnormal Negative [facility] Comment on above: Result Comment: Crit ical Result verified by repeat analysis\No confirmation requested by Physican\Unconfirmed by alternate method\Critical Result UD_THC:POS Called to [facility] ER by JOEL STEVENS And Read Back For Confirmation at: 12/06/2022 14:42:33 Negative Cutoff: <50 ng/mL Performed By: #### 2 [id number] ####[facility] [address] [place] [address] eGFRon 12-06-2022 GFR/1.73 sq M.predicted among non-blacks MDRD (S/P/Bld) [Vol rate/Area] 105 mL/min/1.73 m2 Normal >=59 [facility] Comment on above: Order Comment: Order added by Discern Expert. Result Comment: Swimming Pool Maintenance dayanna kidney disease could be indicated at eGFR's of less than 60 mL/min/1.73m2. Kidney failure is indicated at less than 15 mL/min/1.73m2. Performed By: #### 2 [id number], [id number], [id number], [id number] ####[facility] [address] [place] [address] Basic Metabolic Panelon 06-05 Anion gap [Moles/Vol] 11 mmol/L 9 - 17 mmol/L [employer] Calcium [Mass/Vol] 9.5 mg/dL 8.6 - 10. 4 mg/dL [employer] Chloride [Moles/Vol] 103 mmol/L 98 - 10 7 mmol/L [employer] CO2 [Moles/Vol] 27 mmol/L 20 - 31 mmol/L [employer] Creatinine [Mass/Vol] 0.57 mg/dL 0.50 - 0.90 mg/dL [employer] GFR/1.73 sq M.predicted MDRD (S/P/Bld) [Vol rate/Area] - PINF [employer] Comment on above: These results are not [...] 154 mg/dL High 70 - 99 mg/dL [facility] Potassium [Moles/Vol] 4.2 mmol/L 3.7 - 5.3 mmol/L [facility] Sodium [Moles/Vol] 141 mmol/L 135 - 144 mmol/L [facility] Urea nitrogen [Mass/Vol] 12 mg/dL 6 - 20 mg/dL [facility] Urea nitrogen/Creatinine (Bld) [Mass ratio] 21 High 9 - 20 [facility] CBC with Auto Differentialon 06-16-2022 Absolute Eos # 0.10 [facility] Absolute Lymph # 1.90 [facility] Absolute Arroyo # 0.40 [facility] RS [facility] Basophils (Bld) [#/Vol] 0.00 10*3/uL [facility] Basophils/100 WBC (Bld) 1 % 0 - 2 % B ON [facility] Differential Type YES [facility] Eosinophils/100 WBC (Bld) 1 % 0 - 5 % [facility] Hematocrit (Bld) [Volume fraction] 40.3 % 36 - 46 % [facility] Hemoglobin (Bld) [Mass/Vol] 13.0 g/dL 12.0 - 16.0 g/dL [facility] Lymphocytes/100 WBC (Bld) 23 % 15 - 40 % [facility] MCH (RBC) [Entitic mass] 27.2 pg 26 - 34 pg [facility] MCHC (RBC) [Mass/Vol] 32.4 g/dL 31 - 3 7 g/dL [facility] MCV (RBC) [Entitic vol] 84.1 fL 80 - 100 fL [facility] Monocytes/100 WBC (Bld) 5 % 4 - 8 % B ON [facility] Platelet distribution width (Bld) [Ratio] 13.9 % 12.1 - 15.2 % [facility] Platelets (Bld) [#/Vol] 225 10*3/uL [facility] RBC (Bld) [#/Vol] 4.79 10*6/uL 4.0 - 5.2 m/uL [facility] Segmented neutrophils/100 WBC (Bld) 70 % 47 - 75 % [facility] Segs Absolute 5.70 [facility] WBC (Bld) [#/Vol] 8.2 10*3/uL JULIANO LUGO [facility] CT HEAD WO CONTRASTon 2022 Radiology Study observation (narrative) JULIANO PADILLA [facility] Work Phone: No acute intracranial abnormality. FOLLOW-UP: Follow-up as clinically indicated. [facility] EXAM: CT HEAD WO CONTRAST 06/16/2022 2:34 AM EST [facility] CLINICAL STATEMENT: Has a code stroke or [...] orbits and the paranasal sinuses are normal. [facility] Trang Mcgregor MD - 06/16/2022 EXAM: CT HEAD WO CONTRAST 06/16/2022 2:34 AM EST [facility] CLINICAL STATEMENT: Has a code stroke or [...] intracranial abnormality. FOLLOW-UP: Follow-up as clinically indicated. [employer] Work Phone: CT HEAD WO CONTRASTOrdered B y: Trang Said on 06-16-2022 [employer] Work Phone: HCG Qualitative, Serumon hCG Qual Negative NEGATIVE [employer] [facility] Comment on above: Specimens with hCG l evels near the threshold of the test (25 mIU/mL) may give a negative or indeterminate result. In such cases, another test should be performed with a new specimen in 48-72 hours. If early is suspected clinically in this setting, correlation with quantitative serum b-hCG level is suggested. [employer] has confirmed the use of plasma for this test. This has not been cleared or approved by the [place]. Food and Drug Administration. The FDA has determined that such clearance is not necessary. No Panel Informationon 06-16 Interpretation and review of laboratory results Abnormal [facility] Urinalysison 06-16-2022 Bilirubin Urine Negative NEGATIVE [employer] S[pecialists Color, UA Yellow Yellow [facility] Glucose Auto test strip (U) [Mass/Vol] Negative NEGATIVE [facility] Ketones (U) [Mass/Vol] Negative NEGATIVE [employer] [facility] Leukocyte esterase Auto test strip Ql (U) Negative NEGATIVE [employer] [facility] Nitrite Auto test strip Ql (U) Negative NEGATIVE [facility] Protein (U) [Mass/Vol] 7.0 mg/dL 5.0 - 8.0 [employer] [facility] Protein (U) [Mass/Vol] TRACE Abnormal NEGATIVE [employer] Specific Calvin, UA 1.005 1.005 - 1.030 [employer] [facility] Turbidity UA Clear Clear [facility] Urinalysis Comments [facility] Urine Hgb Negative NEGATIVE [facility] Urobilinogen, Urine Normal Normal [facility] XR LUMBAR SPINE (MIN 4 VIEWS )on 03-13-2022 Radiology Study observation (narrative) JULIANO HANSEN [employer] Work Phone: No degenerative change, discitis or fracture. [facility] EXAM: XR LUMBAR SPIN E (MIN 4 VIEWS) HISTORY: Reason for exam:->midline low back pain [facility] Quinn Roberto Jr., MD - 03/13/2022 EXAM: XR LUMBAR SPINE (MIN 4 VIEWS) HISTORY: Reason for exam:->midline low back pain IMPRESSION: No degenerative change, discitis or fracture. [employer] Phone: XR LUMBAR SPINE (MIN 4 VIEWS )Ordered By: Quinn Roberto on 03-13-2022 [employer] Phone: CBC AUTO DIFFon 10-04-2021 BASO # 0.0 103/ul Normal 0.0-0.1 [facility] Comment on above: Performed By: #### H H #### [facility] [address] [place] [address] [address] Ramya Ramey Basophils/100 WBC (Bld) 0.2 % Normal 0.2-2.0 [facility] Comment on above: Performed By: #### H H #### [facility] [address] [place] [address] [address] Ramya Ramey EO # 0.1 103/ul Normal 0.0-0.7 [facility] Comment on above: Performed By: #### H H #### [facility] [address] [place] [address] [address] Ramya Ramey Eosinophils/100 WBC (Bld) 0.7 % Critically low 0.9-7.0 [facility] Comment on above: Performed By: #### H H #### [facility] [address] [place] [address] [address] Ramya Ramey Erythrocyte distribution width (RBC) [Ratio] 13.4 % Normal 11.0-15.0 [facility] Comment on above: Performed By: #### H H #### [facility] [address] [place] [address] Dr. Ramya Ramey Hematocrit (Bld) [Volume fraction] 29.4 % Critically low 36.0-48.0 [facility] Comment on above: Performed By: #### H H #### [facility] [address] [place] [address] [address] Ramya Ramey Hemoglobin (Bld) [Mass/Vol] 9.5 g/dL Critically low 12.0-16.0 [facility] Comment on above: Performed By: #### H H #### [facility] [address] [place] [address] [address] Ramya Ramey IG # 0.06 10e3/ul Critically high 0.00-0.03 [facility] Comment on above: Performed By: #### H H #### [facility] [address] [place] [address] Dr. Ramya Ramey IG % 0.5 % Normal 0.0-0.5 [facility] Comment on above: Performed By: #### H H #### [facility] [address] [place] [address] Dr. Ramya Ramey LYMPH # 1.3 103/ul Normal 1.2-3.8 [facility] Comment on above: Performed By: #### H H #### [facility] [address] [place] [address] Dr. Ramya Ramey Lymphocytes/100 WBC (Bld) 11.5 % Critically low 20.5-60.0 [facility] Comment on above: Performed By: #### H H #### [facility] [address] [place] [address] Dr. Ramya Ramey MANUAL DIFF REQ NO Normal [facility] Comment on above: Performed By: #### H H #### [facility] [address] [place] [address] Dr. Ramya Ramey MCH (RBC) [Entitic mass] 28.4 pg Normal 26.7-34.0 [facility] Comment on above: Performed By: #### H H #### [facility] [address] [place] [address] Dr. Ramya Ramey MCHC (RBC) [Mass/Vol] 32.3 g/dL Normal 29.9-35.2 [facility] Comment on above: Performed By: #### H H #### [facility] [address] [place] [address] [address] Ramya Ramey MCV (RBC) [Entitic vol] 88.0 fL Normal 81.0-99.0 [facility] Comment on above: Performed By: #### H H #### [facility] [address] [place] [address] [address] Ramya Ramey MONO # 0.7 103/ul Normal 0.3-0.8 [facility] Comment on above: Performed By: #### H H #### [facility] [address] [place] [address] [address] Ramya Ramey Monocytes/100 WBC (Bld) 5.9 % Normal 1.7-12.0 [facility] Comment on above: Performed By: #### H H #### [facility] [address] [place] [address] [address] Ramya Ramey NEUT # 9.4 103/ul Critically high 1.4-6.5 [facility] Comment on above: Performed By: #### H H #### [facility] [address] [place] [address] [address] Ramya Ramey Neutrophils/100 WBC (Bld) 81.2 % Critically high 43.0-75.0 [facility] Comment on above: Performed By: #### H H #### [facility] [address] [place] [address] [address] Ramya Ramey Platelet mean volume (Bld) [Entitic vol] 11.9 fL Normal 9.5-13.5 [facility] Comment on above: Performed By: #### H H #### [facility] [address] [place] [address] [address] Ramya Ramey PLT 162 103/ul Normal 150-450 [facility] Comment on above: Performed By: #### H H #### [facility] [address] [place] [address] [address] Ramya Ramey RBC 3.34 106/ul Critically low 4.20-5.40 [facility] Comment on above: Performed By: #### H H #### [facility] [address] [place] [address] [address] Ramya Ramey WBC 11.5 103/ul Critically high 4.0-11.0 [facility] Comment on above: Performed By: #### H H #### [facility] [address] [place] [address] [address] Ramya Ramey CBC AUTO DIFFon 10-03-2021 BASO # 0.0 103/ul Normal 0.0-0.1 [facility] Comment on above: Performed By: #### H H #### [facility] [address] [place] [address] [address] Ramya Ramey Basophils/100 WBC (Bld) 0.2 % Normal 0.2-2.0 [facility] Comment on above: Performed By: #### H H #### [facility] [address] [place] [address] Dr. Ramya Ramey EO # 0.1 103/ul Normal 0.0-0.7 [facility] Comment on above: Performed By: #### H H #### [facility] [address] [place] [address] Dr. Ramya Ramey Eosinophils/100 WBC (Bld) 0.9 % Normal 0.9-7.0 [facility] Comment on above: Performed By: #### H H #### [facility] [address] [place] [address] Dr. Ramya Ramey Erythrocyte distribution width (RBC) [Ratio] 13.3 % Normal 11.0-15.0 [facility] Comment on above: Performed By: #### H H #### [facility] [address] [place] [address] Dr. Ramya Ramey Hematocrit (Bld) [Volume fraction] 34.8 % Critically low 36.0-48.0 [facility] Comment on above: Performed By: #### H H #### [facility] [address] [place] [address] Dr. Ramya Ramey Hemoglobin (Bld) [Mass/Vol] 11.2 g/dL Critically low 12.0-16.0 [facility] Comment on above: Performed By: #### H H #### [facility] [address] [place] [address] [address] Ramya Ramey IG # 0.07 10e3/ul Critically high 0.00-0.03 [facility] Comment on above: Performed By: #### H H #### [facility] [address] [address] [address] Ramya Ramey IG % 0.6 % Critically high 0.0-0.5 [facility] Comment on above: Performed By: #### H H #### [facility] [address] [address] [address] Ramya Ramey LYMPH # 1.5 103/ul Normal 1.2-3.8 [facility] Comment on above: Performed By: #### H H #### [facility] [address] [place] [address] Dr. Ramya Ramey Lymphocytes/100 WBC (Bld) 13.4 % Critically low 20.5-60.0 [facility] Comment on above: Performed By: #### H H #### [facility] [address] [place] [address] [address] Ramya Ramey MANUAL DIFF REQ NO Normal [facility] Comment on above: Performed By: #### H H #### [facility] [address] [address] [address] Ramya Ramey MCH (RBC) [Entitic mass] 28.3 pg Normal 26.7-34.0 [facility] Comment on above: Performed By: #### H H #### [facility] [address] [address] [address] Ramya Ramey MCHC (RBC) [Mass/Vol] 32.2 g/dL Normal 29.9-35.2 [facility] Comment on above: Performed By: #### H H #### [facility] [address] [address] [address] Ramya Ramey MCV (RBC) [Entitic vol] 87.9 fL Normal 81.0-99.0 [facility] Comment on above: Performed By: #### H H #### [facility] [address] [address] [address] Ramya Ramey MONO # 0.5 103/ul Normal 0.3-0.8 [facility] Comment on above: Performed By: #### H H #### [facility] [address] [address] [address] Ramya Ramey Monocytes/100 WBC (Bld) 4.8 % Normal 1.7-12.0 [facility] Comment on above: Performed By: #### H H #### [facility] [address] [address] [address] Ramya Ramey NEUT # 8.9 103/ul Critically high 1.4-6.5 [facility] Comment on above: Performed By: #### H H #### [facility] [address] [place] [address] Dr. Ramya Ramey Neutrophils/100 WBC (Bld) 80.1 % Critically high 43.0-75.0 [facility] Comment on above: Performed By: #### H H #### [facility] [address] [place] [address] Dr. Ramya Ramey Platelet mean volume (Bld) [Entitic vol] 11.8 fL Normal 9.5-13.5 [facility] Comment on above: Performed By: #### H H #### [facility] [address] [place] [address] Dr. Ramya Ramey PLT 194 103/ul Normal 150-[address] [facility] Comment on above: Performed By: #### H H #### [facility] [address] [address] [address] Ramya Ramey RBC 3.96 106/ul Critically low 4.20-5.40 [facility] Comment on above: Performed By: #### H H #### [facility] [address] [address] [address] Ramya Ramey WBC 11.1 103/ul Critically high 4.0-11.0 [facility] Comment on above: Performed By: #### H H #### [facility] [address] [place] [address] Dr. Ramya Ramey Covid-19 PCR ([facility])on SARS-CoV-2 (COVID-19) RNA JAKE+probe Ql (Unsp spec) Not detected Normal NOT DETECTED [facility] Comment on above: Result Comment: When diagnostic [...] for this test is supported by the [place] of [employer] and Human Service's declaration that [...] used). Performed By: #### H H #### [facility] [address] [place] [address] Dr. Ramya Ramey DRUG SCREEN RAPID (URINE)on 10-03-2021 AMP Negative Normal NEGATIVE [facility] Comment on above: Performed By: #### H H #### [facility] [address] [place] [address] Dr. Ramya Ramey BAR Negative Normal NEGATIVE [facility] Comment on above: Performed By: #### H H #### [facility] [address] [place] [address] Dr. Ramya Ramey BUP Negative Normal NEGATIVE [facility] Comment on above: Performed By: #### H H #### [facility] [address] [place] [address] Dr. Ramya Ramey BZO Negative Normal NEGATIVE [facility] Comment on above: Performed By: #### H H #### [facility] [address] [place] [address] Dr. Ramya Ramey ANIBAL Negative Normal NEGATIVE [facility] Comment on above: Performed By: #### H H #### [facility] [address] [place] [address] Dr. Ramya Ramey CUT-OFFS SEE BELOW Normal [facility] Comment on above: Result Comment: AMP [...] ng/mL Performed By: #### H H #### [facility] [address] [place] [address] Dr. Ramya Ramey DRUG CUT HEADER DRUG CLASS TEST SYSTEM CUT-OFF CONCENTRATIONS ARE FOLLOWS: Normal [facility] Comment on above: Performed By: #### H H #### [facility] [address] [place] [address] Dr. Ramya Ramey mAMP Negative Normal NEGATIVE [facility] Comment on above: Performed By: #### H H #### [facility] [address] [place] [address] Dr. Ramya Ramey MTD Negative Normal NEGATIVE [facility] Comment on above: Performed By: #### H H #### [facility] [address] [place] [address] Dr. Ramya Ramey OPI Negative Normal NEGATIVE [facility] Comment on above: Performed By: #### H H #### [facility] [address] [place] [address] Dr. Ramya Ramey OXY Negative Normal NEGATIVE [facility] Comment on above: Performed By: #### H H #### [facility] [address] [place] [address] Dr. Ramya Ramey PCP Negative Normal NEGATIVE [facility] Comment on above: Performed By: #### H H #### [facility] [address] [address] [address] Ramya Ramey PPX Negative Normal NEGATIVE [facility] Comment on above: Performed By: #### H H #### [facility] [address] [address] [address] Ramya Ramey TCA Negative Normal NEGATIVE [facility] Comment on above: Performed By: #### H H #### [facility] [address] [address] [address] Ramya Ramey THC Negative Normal NEGATIVE [facility] Comment on above: Performed By: #### H H #### [facility] [address] [place] [address] Dr. Ramya Ramey POINT OF CARE GLUCOSEon Glucose [Mass/Vol] 126 mg/dL Critically high 74-106 [facility] Comment on above: Performed By: #### P OCGLUC #### [facility] [address] [address] [address] Ramya Ramey TYPE AND SCREENon 10-03-2021 TYPE AND SCREEN Negative Normal [facility] Comment on above: Performed By: #### P OCGLUC #### [facility] [address] [place] [address] Dr. Ramya Ramey CULTURE URINEon 10-01-2021 CULTURE URINE Culture Observations : LIGHT GROWTH OF MIXED GENITAL LEANA. NO POTENTIAL PATHOGENS SEEN. Normal [facility] Comment on above: Performed By: #### P OCGLUC #### [facility] [address] [place] [address] Dr. Ramya Ramey POINT OF CARE GLUCOSEon 09-04 Glucose [Mass/Vol] 134 mg/dL Critically high 74-106 [facility] Comment on above: Performed By: #### P OCGLUC #### [facility] [address] [place] [address] Dr. Ramya Ramey UA (CLEAN/CATCH) ACCOUNT SUPPORT MANAGER/MICRO I F IND.on 10-01-2021 Bilirubin Ql (U) Negative Normal NEGATIVE [facility] Comment on above: Performed By: #### U ACSIND, UMICRO #### [facility] [address] [address] [address] Ramya Ramey Clarity (U) CLEAR Normal CLEAR [facility] Comment on above: Performed By: #### U ACSIND, UMICRO #### [facility] [address] [address] [address] Ramya Ramey Color (U) YELLOW Normal YELLOW [facility] Comment on above: Performed By: #### U ACSIND, UMICRO #### [facility] [address] [address] [address] Ramya Ramey Glucose Ql (U) Negative Normal NEGATIVE [facility] Comment on above: Performed By: #### U ACSIND, UMICRO #### [facility] [address] [place] [address] Dr. Ramya Ramey Hemoglobin Ql (U) Negative Normal NEGATIVE [facility] Comment on above: Performed By: #### U ACSCLOVER, UMICRO #### [facility] [address] [address] [address] Ramya Ramey Ketones Ql (U) Negative Normal NEGATIVE [facility] Comment on above: Performed By: #### U ACSCLOVER, UMICRO #### [facility] [address] [address] [address] Ramya Ramey LEUKOCYTES LARGE Abnormal NEGATIVE [facility] Comment on above: Performed By: #### U ACSCLOVER, UMICRO #### [facility] [address] [address] [address] Ramya Ramey Nitrite Ql (U) Negative Normal NEGATIVE [facility] Comment on above: Performed By: #### U ACSIND, UMICRO #### [facility] [address] [address] [address] Ramya Ramey pH (U) 6.5 [pH] Normal 5-9 [facility] Comment on above: Performed By: #### U ACSIND, UMICRO #### [facility] [address] [address] [address] Ramya Ramey SPEC GRAVITY 1.010 Normal 1.005-<=1.[address] [facility] Comment on above: Performed By: #### U ACSIND, UMICRO #### [facility] [address] [address] [address] Ramya Ramey UA PROTEIN Negative Normal NEGATIVE/ TRACE [facility] Comment on above: Performed By: #### U ACSIND, UMICRO #### [facility] [address] [place] [address] Dr. Ramya Ramey UR MICRO IND INDICATED Normal [facility] Comment on above: Performed By: #### U ACSIND, UMICRO #### [facility] [address] [place] [address] Dr. Ramya Ramey Urobilinogen Qn (U) 0.2 {Sariah'U}/dL Normal 0.2 - 1. 0 [facility] Comment on above: Performed By: #### U ACSIND, UMICRO #### [facility] [address] [place] [address] Dr. Ramya Ramey URINE MICROSCOPIC ONLYon BACTERIA LARGE Abnormal NONE SEEN [facility] Comment on above: Performed By: #### U ACSIND, UMICRO #### [facility] [address] [place] [address] Dr. Ramya Ramey Bacteria identified Cx Nom (U) INDICATED Normal [facility] Comment on above: Performed By: #### U ACSIND, UMICRO #### [facility] [address] [place] [address] Dr. Ramya Ramey CAST NONE SEEN Normal NONE SEEN [facility] Comment on above: Performed By: #### U ACSIND, UMICRO #### [facility] [address] [place] [address] Dr. Ramya Ramey Crystals LM Nom (Urine sed) NONE SEEN Normal NONE SEEN [facility] Comment on above: Performed By: #### U ACSIND, UMICRO #### [facility] [address] [place] [address] Dr. Ramya Ramey Epithelial cells LM Ql (Urine sed) MANY Abnormal NONE SEEN /RARE [facility] Comment on above: Performed By: #### U ACSIND, UMICRO #### [facility] [address] [address] [address] Ramya Ramey MUCOUS TRACE Abnormal NONE SEEN [facility] Comment on above: Performed By: #### U ACSCLOVER UMICRO #### [facility] [address] [address] [address] Ramya Ramey RBC 5-10 Abnormal 0-2 [facility] Comment on above: Performed By: #### U ACSCLOVER UMICRO #### [facility] [address] [address] [address] Ramya Ramey WBC 75-100 Abnormal NONE SEEN [facility] Comment on above: Performed By: #### U RHYS UMICRO #### [facility] [address] [address] [address] Ramya Ramey GROUP B STREP CULTUREon [...] F Tetracycline >=16 R F Normal [facility] Comment on above: Performed By: #### G BSCX #### [facility] [address] [address] [address] Ramya Ramey US PREG BIOPHY W [...] by: MARY CRAFT Date: 2021-09-26 10:40 Normal [facility] US PREG GROWTHon 09-26-2021 US PREG [...] by: MARY CRAFT Date: 2021-09-26 10:42 Normal [facility] US PREG BIOPHY W NON STRESSo [...] by: ZAYRA ORTIZ Date: 2021-09-20 07:12 Normal [facility] US PREG BIOPHY W NON STRESSo [...] by: MARY CRAFT Date: 2021-09-12 16:24 Normal [facility] US PREG BIOPHY W NON STRESSo [...] by: MARY CRAFT Date: 2021-09-05 16:47 Normal [facility] US PREG BIOPHY W NON STRESSo [...] by: ZAYRA ORTIZ Date: 2021-08-31 07:14 Normal [facility] US PREG BIOPHY W NON STRESSo [...] ZAYRA ORTIZ Date: 2021-08-30 07:[address] [facility] US PREG GROWTHon 08-30-2021 US PREG GROWTH [...] by: ZAYRA ORTIZ Date: 2021-08-30 07:10 Normal [facility] CULTURE URINEon 08-24-2021 CULTURE URINE Culture Observations : MODERATE GROWTH OF MIXED GENITAL LEANA. NO POTENTIAL PATHOGENS SEEN. Normal [facility] Comment on above: Performed By: #### P OCGLUC #### [facility] [address] [place] [address] Dr. Ramya Ramey POINT OF CARE GLUCOSEon 08-04 Glucose [Mass/Vol] 132 mg/dL Critically high 74-106 [facility] Comment on above: Performed By: #### H H #### [facility] [address] [place] [address] Dr. Ramya Ramey UA (CLEAN/CATCH) ACCOUNT SUPPORT MANAGER/MICRO I F IND.on 08-24-2021 Bilirubin Ql (U) Negative Normal NEGATIVE [facility] Comment on above: Performed By: #### U ACSIND, UMICRO #### [facility] [address] [place] [address] Dr. Ramya Ramey Clarity (U) CLEAR Normal CLEAR [facility] Comment on above: Performed By: #### U ACSIND, UMICRO #### [facility] [address] [place] [address] Dr. Ramya Ramey Color (U) YELLOW Normal YELLOW [facility] Comment on above: Performed By: #### U ACSIND, UMICRO #### [facility] [address] [place] [address] Dr. Ramya Ramey Glucose Ql (U) 250 mg/dl Abnormal NEGATIVE [facility] Comment on above: Performed By: #### U ACSIND, UMICRO #### [facility] [address] [place] [address] Dr. Ramya Ramey Hemoglobin Ql (U) TRACE-INTACT Abnormal NEGATIVE [facility] Comment on above: Performed By: #### U ACSIND, UMICRO #### [facility] [address] [place] [address] Dr. Ramya Ramey Ketones Ql (U) Negative Normal NEGATIVE [facility] Comment on above: Performed By: #### U ACSIND, UMICRO #### [facility] [address] [place] [address] Dr. Ramya Ramey LEUKOCYTES MODERATE Abnormal NEGATIVE [facility] Comment on above: Performed By: #### U ACSIND, UMICRO #### [facility] [address] [place] [address] Dr. Ramya Ramey Nitrite Ql (U) Negative Normal NEGATIVE [facility] Comment on above: Performed By: #### U ACSIND, UMICRO #### [facility] [address] [place] [address] Dr. Ramya Ramey pH (U) 6.0 [pH] Normal 5-9 [facility] Comment on above: Performed By: #### U ACSIND, UMICRO #### [facility] [address] [address] [address] Ramya Ramey SPEC GRAVITY 1.020 Normal 1.005-<=1.[address] [place] [address] Comment on above: Performed By: #### U ACSCLOVER, UMICRO #### [facility] [address] [address] [address] Ramya Ramey UA PROTEIN TRACE Normal NEGATIVE/ TRACE [facility] Comment on above: Performed By: #### U ACSCLOVER, UMICRO #### [facility] [address] [place] [address] Dr. Ramya Ramey UR MICRO IND INDICATED Normal [facility] Comment on above: Performed By: #### U ACSCLOVER, UMICRO #### [facility] [address] [place] [address] Dr. Ramya Ramey Urobilinogen Qn (U) 0.2 {Sariah'U}/dL Normal 0.2 - 1. 0 [facility] Comment on above: Performed By: #### U ACSCLOVER, UMICRO #### [facility] [address] [place] [address] Dr. Ramya Ramey URINE MICROSCOPIC ONLYon BACTERIA MODERATE Abnormal NONE SEEN [facility] Comment on above: Performed By: #### U ACSCLOVER, UMICRO #### [facility] [address] [place] [address] Dr. Ramya Ramey Bacteria identified Cx Nom (U) INDICATED Normal [facility] Comment on above: Performed By: #### U ACSCLOVER, UMICRO #### [facility] [address] [place] [address] Dr. Ramya Ramey CAST NONE SEEN Normal NONE SEEN [facility] Comment on above: Performed By: #### U ACSCLOVER, UMICRO #### [facility] [address] [place] [address] Dr. Ramya Ramey Crystals LM Nom (Urine sed) NONE SEEN Normal NONE SEEN [facility] Comment on above: Performed By: #### U ACSCLOVER, UMICRO #### [facility] [address] [place] [address] Dr. Ramya Ramey Epithelial cells LM Ql (Urine sed) MANY Abnormal NONE SEEN /RARE [facility] Comment on above: Performed By: #### U ACSCLOVER UMICRO #### [facility] [address] [place] [address] Dr. Ramya Ramey MUCOUS NONE SEEN Normal NONE SEEN [facility] Comment on above: Performed By: #### U ACSCLOVER, UMICRO #### [facility] [address] [place] [address] Dr. Ramya Ramey RBC 2-5 Abnormal 0-2 [facility] Comment on above: Performed By: #### U ACSCLOVER UMICRO #### [facility] [address] [place] [address] Dr. Ramya Ramey WBC 10-20 Abnormal NONE SEEN [facility] Comment on above: Performed By: #### U ACSCLOVER UMICRO #### [facility] [address] [place] [address] Dr. Ramya Ramey HEPATITIS C ANTIBODYon 07-18 Hep C Virus Ab <0.1 Normal 0.0-0.9 [facility] Comment on above: Result Comment: Nega tive: < 0.8 Indeterminate: 0.8 - 0.9 Positive: > 0.9 . The CDC recommends that a positive HCV antibody result be followed up with a HCV Nucleic Acid Amplification test (274636). Performed By: #### H CV #### [facility] [address] [place] [address] Dr. Ramya Ramey ABO AND RH TYPEon 07-17-2021 ABO and Rh group Nom (Bld) ABO Rh Typing B Rh Positive Normal [facility] Comment on above: Performed By: #### P OCGLUC #### [facility] [address] [place] [address] Dr. Ramya Ramey GLUCOSE - 1HRon 07-17-2021 Glucose [Mass/Vol] 238 mg/dL Critically high 74-106 T [facility] Comment on above: Performed By: #### G LU1HR #### [facility] [address] [place] [address] Dr. Ramya Ramey GLYCOHEMOGLOBIN A1Con 2021 ADA RECOMMENDATION ADA THERAPEUTIC TARGET 6.0 - 7.0 ACTION SUGGESTED > 7.0 Normal [facility] Comment on above: Performed By: #### H H #### [facility] [address] [place] [address] Dr. Ramya Ramey Glucose [Mass/Vol] 120 mg/dL Normal [facility] Comment on above: Performed By: #### H H #### [facility] [address] [address] [address] Ramya Ramey HbA1c (Bld) [Mass fraction] 5.8 % Normal <=6.0 [facility] Comment on above: Performed By: #### H H #### [facility] [address] [place] [address] Dr. Ramya Ramey HEMOGRAM AND PLATELon 2021 Hematocrit (Bld) [Volume fraction] 33.3 % Critically low 36.0-48.0 [facility] Comment on above: Performed By: #### H H #### [facility] [address] [place] [address] Dr. Ramya Ramey Hemoglobin (Bld) [Mass/Vol] 10.8 g/dL Critically low 12.0-16.0 [facility] Comment on above: Performed By: #### H H #### [facility] [address] [place] [address] Dr. Ramya Ramey MCH (RBC) [Entitic mass] 28.9 pg Normal 26.7-34.0 [facility] Comment on above: Performed By: #### H H #### [facility] [address] [place] [address] Dr. Ramya Ramey MCHC (RBC) [Mass/Vol] 32.4 g/dL Normal 29.9-35.2 [facility] Comment on above: Performed By: #### H H #### [facility] [address] [place] [address] Dr. Ramya Ramey MCV (RBC) [Entitic vol] 89.0 fL Normal 81.0-99.0 [facility] Comment on above: Performed By: #### H H #### [facility] [address] [place] [address] Dr. Ramya Ramey PLT 217 103/ul Normal 150-450 [facility] Comment on above: Performed By: #### H H #### [facility] [address] [place] [address] Dr. Ramya Ramey RBC 3.74 106/ul Critically low 4.20-5.40 [facility] Comment on above: Performed By: #### H H #### [facility] [address] [place] [address] Dr. Ramay Ramey WBC 11.5 103/ul Critically high 4.0-11.0 [facility] Comment on above: Performed By: #### H H #### [facility] [address] [place] [address] Dr. Ramya Ramey CHLAMYDIA/GONOCOCCUS JAKE (SW AB/URINE/PAPon 06-21-2021 Chlamydia trachomatis, JAKE Negative Normal Negative [facility] Comment on above: Performed By: #### C T/NGNA #### [facility] [address] [place] [address] Dr. Ramya Ramey Neisseria gonorrhoeae, JAKE Negative Normal Negative [facility] Comment on above: Performed By: #### C T/NGNA #### [facility] [address] [place] [address] Dr. Ramya Ramey VAGINITIS/VAGINOSIS DNA PROB [place] 06-20-2021 Teetee species Negative Normal Negative [facility] Comment on above: Performed By: #### H H #### [facility] [address] [place] [address] Dr. Ramya aRmey Gardnerella vaginalis Positive Abnormal Negative [facility] Comment on above: Performed By: #### H H #### [facility] [address] [place] [address] Dr. Ramya Ramey Trichomonas vaginalis Negative Normal Negative [facility] Comment on above: Performed By: #### H H #### [facility] [address] [place] [address] Dr. Ramya Ramey AFP, Maternalon 06-03-2021 Determined by Other Normal [facility] Comment on above: Performed By: #### C MIS #### [address] [address] Sales Product Manager: Antoine Wilson MD #### AAFPM #### [address] [address] Sales Product Manager: Antoine Wilson MD [facility] [address] [place] [address] Sales Product Manager: Nick Mills MD Due Date SEE NOTE [facility] Comment on above: Result Comment: Resu lts for Estimated Due Date: 10 21 21 Performed By: #### C MIS #### [address] [address] Sales Product Manager: Antoine Wilson MD #### AAFPM #### [address] [address] Sales Product Manager: Antoine Wilson MD [address] [id number] Sales Product Manager: Nick Mills MD Family History No Normal [facility] Comment on above: Performed By: #### C MIS #### [address] [address] Sales Product Manager: Antoine Wilson MD #### AAFPM #### [address] [address] Sales Product Manager: Antoine Wilson MD [facility] [address] [place], [place] [id number] Sales Product Manager: Nick Mills MD Gestat Age (exact) 19 wks, 4 days Normal [facility] Comment on above: Performed By: #### C MIS #### [address] [address] Sales Product Manager: Antoine Wilson MD #### AAFPM #### [address] [address] Sales Product Manager: Antoine Wilson MD [address] [address] Sales Product Manager: Nick Mills MD Ins Req Matern Diab Unknown Normal [facility] Comment on above: Performed By: #### C MIS #### [address] [address] Sales Product Manager: Antoine Wilson MD #### AAFPM #### [address] [address] Sales Product Manager: Antoine Wilson MD [address] [address] Sales Product Manager: Nick Mills MD Interpretation Screen Neg Normal [facility] Comment on above: Result Comment: (NOT E) INTERPRETATION: SCREEN NEGATIVE for open spina bifida Neural Tube Defects (NTD) Negative Pre-Test Post-Test Cutoff Neural Tube Defects Risks 1:1030 1:7440 1:250 Comments: The risk of an open neural tube defect is less than the screening cut-off. This test was developed and its performance characteristics determined by [employer]. It has not been cleared or approved by the US Food and Drug Administration. This test was performed in a CLIA certified laboratory and is intended for clinical purposes. Performed By: #### C MIS #### [address] [address] Sales Product Manager: Antoine Wilson MD #### AAFPM #### [address] [address] Sales Product Manager: Antoine Wilson MD [address] [address] Sales Product Manager: Nick Mills MD [age] [facility] Comment on above: Performed By: #### C MIS #### [address] [address] Sales Product Manager: Antoine Wilson MD #### AAFPM #### [address] [address] Sales Product Manager: Antoine Wilson MD [facility] [address] [place] [address] Sales Product Manager: Nick Mills MD Maternal Race Nonblack [facility] Comment on above: Performed By: #### C MIS #### [address] [address] Sales Product Manager: Antoine Wilson MD #### AAFPM #### [address] [address] Sales Product Manager: Antoine Wilson MD [address] [phone] Sales Product Manager: Nick Mills MD Maternal Weight 204.0 lbs. [facility] Comment on above: Performed By: #### C MIS #### [address] [address] Sales Product Manager: Antoine Wilson MD #### AAFPM #### [address] [address] Sales Product Manager: Antoine Wilson MD [facility] [address] [place] [address] Sales Product Manager: Nick Mills MD MoM for AFP 1.18 [facility] Comment on above: Performed By: #### C MIS #### [address] [address] Sales Product Manager: Antoine Wilson MD #### AAFPM #### [address] [address] Sales Product Manager: Antoine Wilson MD [facility] [address] [place], [place] [id number] Sales Product Manager: Nick Mills MD Number of Fetuses Tate Normal [facility] Comment on above: Performed By: #### C MIS #### [address] [address] Sales Product Manager: Antoine Wilson MD #### AAFPM #### [address] [address] Sales Product Manager: Antoine Wilson MD [facility] [address] [place], [place] [phone] Sales Product Manager: Nick Mills MD Patient's AFP 55 ng/mL Normal [facility] Comment on above: Performed By: #### C MIS #### [address] [address] Sales Product Manager: Antoine Wilson MD #### AAFPM #### [address] [address] Sales Product Manager: Antoine Wilson MD [address] [address] Sales Product Manager: Nick Mills MD Smoking Yes Normal [facility] Comment on above: Performed By: #### C MIS #### [address] [address] Sales Product Manager: Antoine Wilson MD #### AAFPM #### [address] [address] Sales Product Manager: Antoine Wilson MD [facility] [address] [place] [address] Sales Product Manager: Nick Mills MD Specimen See Note Normal [facility] Comment on above: Result Comment: (NOT E) Initial sample Performed by [employer], [address] [place] [id number] [email or web address], Noreen Zafar MD, Lab. Director Performed By: #### C MIS #### [address] [address] Sales Product Manager: Antoine Wilson MD #### AAFPM #### [address] [address] Sales Product Manager: Antoine Wilson MD [address] [address] Sales Product Manager: Nick Mills MD AFP, Maternalon 06-01-2021 Current Smoking YES Normal [facility] Comment on above: Performed By: #### C MIS #### [address] [address] Sales Product Manager: Antoine Wilson MD #### AAFPM #### [address] [address] Sales Product Manager: Antoine Wilson MD [address] [phone] Sales Product Manager: Nick Mills MD Dating LMP Normal [facility] Comment on above: Performed By: #### C MIS #### [address] [address] Sales Product Manager: Antoine Wilson MD #### AAFPM #### [address] [address] Sales Product Manager: Antoine Wilson MD [address] [address] Sales Product Manager: Nick Mills MD Diabetic INFORMATION NOT PROVIDED [facility] Comment on above: Performed By: #### C MIS #### [address] [address] Sales Product Manager: Antoine Wilson MD #### AAFPM #### [address] [address] Sales Product Manager: Antoine Wilson MD [facility] [address] [place] [address] Sales Product Manager: Nick Mills MD Donor Egg NO [facility] Comment on above: Performed By: #### C MIS #### [facility] [address] [place] [address] Sales Product Manager: Antoine Wilson MD #### AAFPM #### [facility] [address] [place] [address] Sales Product Manager: Antoine Wilson MD [facility] [address] [place], [place] [phone] Sales Product Manager: Nick Mills MD Estimated Due Date 10 21 2021 [facility] Comment on above: Performed By: #### C MIS #### [facility] [address] [place] [address] Sales Product Manager: Antoine Wilson MD #### AAFPM #### [facility] [address] [place] [address] Sales Product Manager: Antoine Wilson MD [facility] [address] [place], [place] [phone] Sales Product Manager: Nick Mills MD Family History NO [facility] Comment on above: Performed By: #### C MIS #### [facility] [address] [place] [address] Sales Product Manager: Antoine Wilson MD #### AAFPM #### [facility] [address] [place] [address] Sales Product Manager: Antoine Wilson MD [facility] [address] [place], [place] [phone] Sales Product Manager: Nick Mills MD In Vitro Fertalizat [facility] Comment on above: Performed By: #### C MIS #### [facility] [address] [place] [address] Sales Product Manager: Antoine Wilson MD #### AAFPM #### [facility] [address] [place] [address] Sales Product Manager: Antoine Wilson MD [facility] [address] [place] [address] Sales Product Manager: Nick Mills MD LMP date 01 14 2021 [facility] Comment on above: Performed By: #### C MIS #### [facility] [address] [place] [address] Sales Product Manager: Antoine Wilson MD #### AAFPM #### [facility] [address] [place] [address] Sales Product Manager: Antoine Wilson MD [address] [address] Sales Product Manager: Nick Mills MD Maternal date 08 14 1997 [facility] Comment on above: Performed By: #### C MIS #### [facility] [address] [place] [address] Sales Product Manager: Antoine Wilson MD #### AAFPM #### [facility] [address] [place] [address] Sales Product Manager: Antoine Wilson MD [facility] [address] [place] [address] Sales Product Manager: Nick Mills MD Maternal Weight 204 [facility] Comment on above: Performed By: #### C MIS #### [facility] [address] [place] [address] Sales Product Manager: Antoine Wilson MD #### AAFPM #### [facility] [address] [place] [address] Sales Product Manager: Antoine Wilson MD [facility] [address] [place] [address] Sales Product Manager: Nick Mills MD Monochorionic Twins TATE Normal [facility] Comment on above: Performed By: #### C MIS #### [address] [address] Sales Product Manager: Antoine Wilson MD #### AAFPM #### [address] [address] Sales Product Manager: Antoine Wilson MD [facility] [address] [place] [address] Sales Product Manager: Nick Mills MD Patient Weight Units LBS Normal [facility] Comment on above: Performed By: #### C MIS #### [address] [address] Sales Product Manager: Atnoine Wilson MD #### AAFPM #### [address] [address] Sales Product Manager: Antoine Wilson MD [address] [address] Sales Product Manager: Nick Mills MD Race (Maternal) WHITE Normal [facility] Comment on above: Performed By: #### C MIS #### [address] [address] Sales Product Manager: Antoine Wilson MD #### AAFPM #### [address] [address] Sales Product Manager: Antoine Wilson MD [facility] [address] [place] [address] Sales Product Manager: Nick Mills MD Repeat Specimen INFORMATION NOT PROVIDED [facility] Comment on above: Performed By: #### C MIS #### [address] [address] Sales Product Manager: Antoine Wilson MD #### AAFPM #### [address] [place] [address] Sales Product Manager: Antoine Wilson MD [address] [address] Sales Product Manager: Nick Mills MD Valproic/Carbamazep INFORMATION NOT PROVIDED [facility] Comment on above: Performed By: #### C MIS #### [facility] [address] [place] [address] Sales Product Manager: Antoine Wilson MD #### AAFPM #### [facility] [address] [place] [address] Sales Product Manager: Antoine Wilson MD [address] [address] Sales Product Manager: MD Sa[facility] De [facility]bridge[facility] hospit[facility] 06-01-2021 Send Out Report [facility] [phone] [facility] Comment on above: Performed By: #### C MIS #### [address] [address] Sales Product Manager: Antoine Wilson MD #### AAFPM #### [address] [address] Sales Product Manager: Antoine Wilson MD [address] [address] Sales Product Manager: MD Saida [facility]ohio[facility] hospitals[facility] 05-31-2021 Test Name [facility] Comment on above: Performed By: #### C MIS #### [facility] [address] [place] [address] Sales Product Manager: Antoine Wilson MD #### AAFPM #### [facility] [address] [address] Sales Product Manager: Antoine Wilson MD [address] [address] Sales Product Manager: Nick Mills MD COVID-19, Rapidon 05-22-2021 Interpretation and review of laboratory results Abnormal [employer] SARS-CoV-2 (COVID-19) RNA JAKE+probe Ql (Unsp spec) Detected Abnormal Not Detected [facility] Comment on above: Rapid NAAT: The specimen [...] this assay. Fact sheet for Healthcare Providers: https://www.fda.gov/media/752499/download Fact sheet for Patients: https://www.fda.gov/media/897048/download Methodology: Isothermal Nucleic Acid Amplification Results reported to the appropriate Health Department Specimen Description .NASOPHARYNGEAL SWAB [employer] Basic Metabolic Panelon 12-0 Anion gap [Moles/Vol] 14 mmol/L 9 - 17 mmol/L [employer] Calcium [Mass/Vol] 9.3 mg/dL 8.6 - 10. 4 mg/dL [employer] Chloride [Moles/Vol] 100 mmol/L 98 - 10 7 mmol/L [employer] CO2 [Moles/Vol] 19 mmol/L Low 20 - 31 mmol/L [employer] Creatinine [Mass/Vol] 0.48 mg/dL Low 0.50 - 0.90 mg/dL [employer] GFR >60 >60 mL/min [employer] GFR Non- >60 >60 mL/min [employer] GFR/1.73 sq M.predicted MDRD (S/P/Bld) [Vol rate/Area] [facility] Comment on above: Average GFR for 20-2 9 years old: 116 mL/min/1.73sq m Chronic Kidney Disease: <60 mL/min/1.73sq m Kidney failure: <15 mL/min/1.73sq m eGFR calculated using average adult body mass. Additional eGFR calculator available at: http://www.[employer]multiple_crcl_2012.htm GFR/1.73 sq M.predicted MDRD (S/P/Bld) [Vol rate/Area] NOT REPORTED [facility] Glucose [Mass/Vol] 209 mg/dL High 70 - 99 mg/dL [facility] Interpretation and review of laboratory results Abnormal [facility] Potassium [Moles/Vol] 3.9 mmol/L 3.7 - 5.3 mmol/L [facility] Sodium [Moles/Vol] 133 mmol/L Low 135 - 144 mmol/L [facility] Urea nitrogen (BldV) [Mass/Vol] 7 mg/dL 6 - 20 mg/dL [facility] Urea nitrogen/Creatinine (Bld) [Mass ratio] 15 [facility] US OB 1ST TRIMESTER TRANSBDO BECKY ONLY [...] Doppler analysis. Somatic motion also noted by analyst sales. Uterus measures 13.4 x 7.8 x 8.7 [...] free fluid. Workstation ID: [id number] Dictated by: BLIANE CHIU on [place] Apr 01, 2021 8:19:34 PM EST Transcribed by: BLAINE CHIU on [place] Apr 01, 2021 8:19:34 PM EST Finalized by: BLAINE CHIU on [place] Apr 01, 2021 8:19:34 PM EST Normal [facility] Comment on above: Order Comment: Injur y/Trauma or Illness?:Illness/Other How long have you had these symptoms (acute/chronic)?:Acute Reason for exam?:vaginal bleeding, rt pelvic pain History of cancer?:na Surgeries, chemotherapy, or radiation?:na Type of Exam?:Initial Additional signs and symptoms?:n Microscopic UrinalysisOrdere d By: Braydon May on 02-10-2021 - [employer] Work Phone: Amorphous, UA NOT REPORTED None [facility] Work Phone: Bacteria, UA 1+ Abnormal None [facility] [employer] Work Phone: Casts UA NOT REPORTED /LPF [facility] [employer] Work Phone: Crystals, UA NOT REPORTED None /HPF [facility] Work Phone: Epithelial Cells UA 5 TO 10 /HPF [facility] [employer] Work Phone: Mucus, UA NOT REPORTED None [facility] Work Phone: Other Observations UA NOT REPORTED NOT REQ. [facility] [employer] Work Phone: RBC, UA 0 TO 2 [facility] Work Phone: Renal Epithelial, UA NOT REPORTED 0 /[facility]PF [facility] Work Phone: Trichomonas, UA NOT REPORTED None [facility] Work Phone: WBC, UA 2 TO 5 0 /HPF [facility] Work Phone: Yeast, UA NOT REPORTED None [employer] Phone: No Panel InformationOrdered By: Braydon Yadira on 02-10-2021 Interpretation and review of laboratory results Abnormal [employer] Work Phone: [employer] Work Phone: UrinalysisOrdered By: Braydon Yadira on 02-10-2021 Bilirubin Urine Negative NEGATIVE [facility] Work Phone: Color, UA Yellow Yellow [employer] Work Phone: Glucose, Ur Negative NEGATIVE [employer] Work Phone: Ketones Ql (U) Negative NEGATIVE [employer] Work Phone: Leukocyte esterase Test strip Ql (U) 2+ Abnormal NEGATIVE [employer] Phone: Nitrite, Urine Negative NEGATIVE [employer] Work Phone: pH, UA 6.0 [employer] Work Phone: Protein, UA Negative NEGATIVE [employer] Work Phone: Specific Calvin, UA 1.020 [employer] Work Phone: Turbidity UA Clear Clear [employer] Work Phone: Urinalysis Comments [employer] Phone: Urine Hgb 1+ Abnormal NEGATIVE [employer] Phone: Urobilinogen, Urine Normal Normal [employer] Work Phone: hCG, quantitative, Ordered By: Braydon Yadira on 02-10-2021 hCG Quant 160 High <5 IU/L [employer] Phone: Comment on above: Non-preg premeno <=5 [...] Jacobs on 12-10-2020 Absolute Eos # 0.10 [facility] Work Phone: Absolute Immature Granulocyte NOT REPORTED [employer] Work Phone: Absolute Lymph # 1.80 [facility] Work Phone: Absolute Arroyo # 0.70 [employer] [facility]abloa lt Work Phone: Basophils (Bld) [#/Vol] 0.10 10*3/uL [employer] Work Phone: Basophils/100 WBC (Bld) 1 % 0 - 2 % M [employer] Work Phone: Differential Type YES [facility] Work Phone: Eosinophils/100 WBC (Bld) 1 % 0 - 5 % [employer] Phone: Hematocrit (Bld) [Volume fraction] 42.8 % 36 - 46 % [employer] Work Phone: Hemoglobin.gastrointest inal spec 1 Ql (Stl) 14.6 g/dL 12.0 - 16.0 g/dL [employer] Phone: Immature Granulocytes NOT REPORTED 0 % M [employer] Work Phone: Lymphocytes/100 WBC (Bld) 16 % 15 - 40 % [employer] Phone: MCH (RBC) [Entitic mass] 30.0 pg 26 - 34 pg [employer] Work Phone: MCHC (RBC) [Mass/Vol] 34.2 g/dL 31 - 3 7 g/dL [employer] Phone: MCV (RBC) [Entitic vol] 87.8 fL 80 - 100 fL [employer] Work Phone: Monocytes/100 WBC (Bld) 6 % 4 - 8 % M [employer] Work Phone: NRBC Automated NOT REPORTED per 100 WBC [email or web address] Work Phone: Platelet distribution width (Bld) [Ratio] 13.1 % 12.1 - 15.2 % [employer] Phone: Platelet Estimate NOT REPORTED [employer] Phone: Platelet mean volume (Bld) [Entitic vol] NOT REPORTED 6.0 - 12.0 fL [employer] Work Phone: Platelets (Bld) [#/Vol] 230 10*3/uL [employer] Phone: RBC (Bld) [#/Vol] 4.87 10*6/uL 4.0 - 5.2 m/uL [employer] Phone: RBC (Bld) [#/Vol] NOT REPORTED [employer] Phone: Segmented neutrophils/100 WBC (Bld) 76 % High 47 - 75 % [employer] Work Phone: Segs Absolute 8.80 High [employer] Work Phone: WBC (Bld) [#/Vol] 11.5 10*3/uL High [employer] Work Phone: WBC (Bld) [#/Vol] NOT REPORTED [employer] Phone: Comprehensive Metabolic Pane l w/ Reflex to MGOrdered By: Bea Jacobs on 12-10-2020 Albumin [Mass/Vol] 4.3 g/dL 3.5 - 5.2 g/dL [employer] Phone: Albumin/Globulin Ratio NOT REPORTED [employer] Phone: ALP (Bld) [Catalytic activity/Vol] 105 U/L High 35 - 104 U/L [employer] Work Phone: ALT [Catalytic activity/Vol] 17 U/L 5 - 33 U/L [employer] Work Phone: Anion gap [Moles/Vol] 12 mmol/L 9 - 17 mmol/L [employer] Phone: AST [Catalytic activity/Vol] 17 U/L <32 [employer] Phone: Bilirubin [Mass/Vol] 0.50 mg/dL 0.30 - 1.20 mg/dL [employer] Phone: Calcium [Mass/Vol] 9.3 mg/dL 8.6 - 10. 4 mg/dL [employer] Phone: Chloride [Moles/Vol] 105 mmol/L 98 - 10 7 mmol/L [employer] Phone: CO2 [Moles/Vol] 22 mmol/L 20 - 31 mmol/L [employer] Phone: Creatinine [Mass/Vol] 0.6 mg/dL 0.50 - 0.90 mg/dL [employer] Phone: Free PSA/Total PSA [Mass fraction] 7.3 g/dL 6.4 - 8.3 g/dL [employer] Phone: GFR >60 >60 mL/min [employer] Phone: GFR Non- >60 >60 mL/min [employer] Phone: GFR/1.73 sq M.predicted MDRD (S/P/Bld) [Vol rate/Area] [employer] Phone: Comment on above: Average GFR for 20-2 9 years old: 116 mL/min/1.73sq m Chronic Kidney Disease: <60 mL/min/1.73sq m Kidney failure: <15 mL/min/1.73sq m eGFR calculated using average adult body mass. Additional eGFR calculator available at: http://www.[employer] [facility]/multiple_crcl_2012.htm GFR/1.73 sq M.predicted MDRD (S/P/Bld) [Vol rate/Area] NOT REPORTED [employer] Phone: Glucose [Mass/Vol] 102 mg/dL High 70 - 99 mg/dL [employer] Phone: Potassium [Moles/Vol] 3.9 mmol/L 3.7 - 5.3 mmol/L [employer] Work Phone: Sodium [Moles/Vol] 139 mmol/L 135 - 144 mmol/L [employer] Phone: Urea nitrogen (BldV) [Mass/Vol] 15 mg/dL 6 - 20 mg/dL [employer] Phone: Urea nitrogen/Creatinine (Bld) [Mass ratio] 25 High [employer] Phone: HCG Qualitative, SerumOrdere d By: Bea Jacobs on 12-10-2020 hCG Qual Negative NEGATIVE [employer] Phone: Comment on above: Specimens with hCG l evels near the threshold of the test (25 mIU/mL) may give a negative or indeterminate result. In such cases, another test should be performed with a new specimen in 48-72 hours. If early is suspected clinically in this setting, correlation with quantitative serum b-hCG level is suggested. [employer] has confirmed the use of plasma for this test. This has not been cleared or approved by the U.S. Food and Drug Administration. The FDA has determined that such clearance is not necessary. No Panel InformationOrdered By: Bea Jacobs on 12-10-2020 Interpretation and review of laboratory results Abnormal [employer] Phone: [employer] Phone: Acetaminophen Levelon 2020 Acetaminophen [Mass/Vol] <5 Low 10 - 30 ug/mL [employer] Phone: Basic Metabolic Panelon 03-3 Anion gap [Moles/Vol] 11 mmol/L 9 - 17 mmol/L [employer] Phone: Bun/Cre Ratio 27 High [employer] Work Phone: Calcium [Mass/Vol] 9.4 mg/dL 8.6 - 10. 4 mg/dL [employer] Phone: Chloride [Moles/Vol] 104 mmol/L 98 - 10 7 mmol/L [employer] Phone: CO2 [Moles/Vol] 26 mmol/L 20 - 31 mmol/L [employer] Phone: Creatinine [Mass/Vol] 0.71 mg/dL 0.50 - 0.90 mg/dL [employer] Phone: GFR >60 >60 mL/min [employer] Phone: GFR Non- >60 >60 mL/min [employer] Phone: GFR/1.73 sq M predicted among non-blacks MDRD (S/P/Bld) [Vol rate/Area] NOT REPORTED [employer] Phone: GFR/1.73 sq M predicted among non-blacks MDRD (S/P/Bld) [Vol rate/Area] [employer] Phone: Comment on above: Average GFR for 20-2 9 years old: 116 mL/min/1.73sq m Chronic Kidney Disease: <60 mL/min/1.73sq m Kidney failure: <15 mL/min/1.73sq m eGFR calculated using average adult body mass. Additional eGFR calculator available at: http://www.[employer].[facility]/multiple_crcl_2012.htm Glucose [Mass/Vol] 113 mg/dL High 70 - 99 mg/dL [employer] Phone: Potassium [Moles/Vol] 4.0 mmol/L 3.7 - 5.3 mmol/L [employer] Phone: Sodium [Moles/Vol] 141 mmol/L 135 - 144 mmol/L [employer] Phone: Urea nitrogen [Mass/Vol] 19 mg/dL 6 - 20 mg/dL [employer] Phone: CBC Auto Differentialon 03-3 0-202 Basophils (Bld) [#/Vol] 0.10 10*3/uL [employer] Phone: Basophils/100 WBC (Bld) 1 % 0 - 2 % [facility] Phone: Differential Type YES [email or web address] Work Phone: Eosinophils (Bld) [#/Vol] 0.10 10*3/uL [employer] Phone: Eosinophils/100 WBC (Bld) 1 % 0 - 5 % [employer] Phone: Erythrocyte distribution width (RBC) [Ratio] 13.3 % 12.1 - 15.2 % [employer] Phone: Hematocrit (Bld) [Volume fraction] 40.7 % 36 - 46 % [employer] Phone: Hemoglobin (Bld) [Mass/Vol] 13.8 g/dL 12.0 - 16.0 g/dL [employer] Phone: Lymphocytes (Bld) [#/Vol] 3.10 10*3/uL [employer] Phone: Lymphocytes/100 WBC (Bld) 28 % 15 - 40 % [employer] Phone: MCH (RBC) [Entitic mass] 30.1 pg 26 - 34 pg [employer] Phone: MCHC (RBC) [Mass/Vol] 33.8 g/dL 31 - 3 7 g/dL [employer] Phone: MCV (RBC) [Entitic vol] 88.8 fL 80 - 100 fL [employer] Phone: Monocytes (Bld) [#/Vol] 0.50 10*3/uL [employer] Phone: Monocytes/100 WBC (Bld) 5 % 4 - 8 % [facility] Work Phone: Platelet mean volume (Bld) [Entitic vol] NOT REPORTED 6.0 - 12.0 fL [employer] Phone: Platelets (Bld) [#/Vol] 203 10*3/uL [employer] Work Phone: Platelets (Bld) [#/Vol] NOT REPORTED [employer] Phone: RBC (Bld) [#/Vol] 4.59 10*6/uL 4.0 - 5.2 m/uL [employer] Phone: RBC morphology finding Nom (Bld) NOT REPORTED [employer] Phone: Segmented neutrophils/100 WBC (Bld) 65 % 47 - 75 % [employer] Work Phone: Segs Absolute 7.30 [facility] Work Phone: WBC (Bld) [#/Vol] 11.0 10*3/uL [employer] Work Phone: WBC (Bld) [#/Vol] NOT REPORTED per 100 WBC [employer] Phone: WBC Morphology NOT REPORTED [employer] [facility] Work Phone: COVID-19, Rapidon 08-01-2020 SARS-CoV-2, Rapid Not Detected Not Detected [employer] Phone: Comment on above: Rapid NAAT: The [...] management decisions. Fact sheet for Healthcare Providers: https://www.1EQ.gov/media/395364/download Fact sheet for Patients: https://www.1EQ.gov/media/303904/download Methodology: Isothermal Nucleic Acid Amplification Specimen Description .NASOPHARYNGEAL SWAB [employer] Phone: Ethanolon 08-01-2020 Ethanol [Mass/Vol] mg/dL <10 mg/dL [employer] Phone: Ethanol percent <0.010 % [facility] Work Phone: HCG Qualitative, Serumon hCG Qual Negative NEGATIVE [employer] Phone: Comment on above: Specimens with hCG l evels near the threshold of the test (25 mIU/mL) may give a negative or indeterminate result. In such cases, another test should be performed with a new specimen in 48-72 hours. If early is suspected clinically in this setting, correlation with quantitative serum b-hCG level is suggested. [employer] has confirmed the use of plasma for this test. This has not been cleared or approved by the U.S. Food and Drug Administration. The FDA has determined that such clearance is not necessary. Otheron 08-01-2020 Immature granulocytes (Bld) [#/Vol] NOT REPORTED [employer] Phone: Interpretation and review of laboratory results Abnormal [employer] Phone: Salicylateon 08-01-2020 Salicylate Lvl <1 Low 3 - 10 mg/dL [employer] Phone: TSH with Reflexon 08-01-2020 TSH Qn 3.16 m[IU]/L [employer] Phone: Urine Drug Screenon 08-02-19 21 Amphetamine Screen, Ur Negative NEGATIVE [facility] Phone: Comment on above: (Positive cutoff 500 ng/mL) Barbiturate Screen, Ur Negative NEGATIVE [facility] Work Phone: Comment on above: (Positive cutoff 200 ng/mL) Benzodiazepine Screen, Urine Negative NEGATIVE [facility] Work Phone: Comment on above: (Positive cutoff 150 ng/mL) Buprenorphine Urine NOT REPORTED NEGATIVE [facility] Work Phone: Cannabinoid Scrn, Ur Negative NEGATIVE [facility] Work Phone: Comment on above: (Positive cutoff 50 ng/mL) Cocaine Metabolite, Urine Negative NEGATIVE [facility] Work Phone: Comment on above: (Positive cutoff 150 ng/mL) MDMA, Urine NOT REPORTED NEGATIVE [facility] Work Phone: Methadone Screen, Urine Negative NEGATIVE [facility] Work Phone: Comment on above: (Positive cutoff 200 ng/mL) Methamphetamine, Urine Negative NEGATIVE [facility] Work Phone: Comment on above: (Positive cutoff 500 ng/mL) Opiates, Urine Negative NEGATIVE [facility] Work Phone: Comment on above: (Positive cutoff 100 ng/mL) Oxycodone Screen, Ur Negative NEGATIVE [facility] Work Phone: Comment on above: (Positive cutoff 100 ng/mL) Phencyclidine, Urine Negative NEGATIVE [facility] Work Phone: Comment on above: (Positive cutoff 25 ng/mL) Propoxyphene, Urine Negative NEGATIVE [facility] Work Phone: Comment on above: (Positive cutoff 300 ng/mL) Test Information NOT REPORTED [facility] [place] [facility] Work Phone: Tricyclic Antidepressants, Urine Negative NEGATIVE [facility] Work Phone: Comment on above: (Positive cutoff 300 ng/mL) Drug screen results are to be used for medical purposes only. All positive results are unconfirmed. Testing for employment or legal uses should be sent to a reference laboratory for confirmation. CBC Auto Differentialon 01-03 Basophils (Bld) [#/Vol] 0.00 10*3/uL [place] Basophils/100 WBC (Bld) 1 % 0 - 2 % [place] Differential Type YES [place] Eosinophils (Bld) [#/Vol] 0.10 10*3/uL [place] Eosinophils/100 WBC (Bld) 2 % 0 - 5 % [place] Erythrocyte distribution width (RBC) [Ratio] 13.4 % 12.1 - 15.2 % [place] Hematocrit (Bld) [Volume fraction] 44.9 % 36 - 46 % [place] Hemoglobin (Bld) [Mass/Vol] 15.0 g/dL 12 - 16 g/dL [place] Lymphocytes (Bld) [#/Vol] 1.30 10*3/uL [place] Lymphocytes/100 WBC (Bld) 17 % 15 - 40 % [place] MCH (RBC) [Entitic mass] 29.7 pg 26 - 34 pg [place] MCHC (RBC) [Mass/Vol] 33.4 g/dL 31 - 3 7 g/dL [place] MCV (RBC) [Entitic vol] 88.9 fL 80 - 100 fL [place] Monocytes (Bld) [#/Vol] 0.40 10*3/uL [place] Monocytes/100 WBC (Bld) 5 % 4 - 8 % [place] Platelet mean volume (Bld) [Entitic vol] NOT REPORTED 6 - 12 fL [place] Platelets (Bld) [#/Vol] NOT REPORTED [place] Platelets (Bld) [#/Vol] 231 10*3/uL [place] RBC (Bld) [#/Vol] 5.05 10*6/uL 4 - 5.2 m/uL [place] RBC morphology finding Nom (Bld) NOT REPORTED [place] Segmented neutrophils/100 WBC (Bld) 75 % 47 - 75 % [place] Segs Absolute 5.80 [place] WBC (Bld) [#/Vol] 7.7 10*3/uL [place] WBC (Bld) [#/Vol] NOT REPORTED per 100 WBC [place] WBC Morphology NOT REPORTED [place] Comprehensive Metabolic Pane nick 01-18-2020 Albumin [Mass/Vol] 4.6 g/dL 3.5 - 5.2 g/dL [place] Albumin/Globulin [Mass ratio] NOT REPORTED [place] ALP [Catalytic activity/Vol] 101 U/L 35 - 104 U/L [place] ALT [Catalytic activity/Vol] 21 U/L 5 - 33 U/L [place] Anion gap [Moles/Vol] 10 mmol/L 9 - 17 mmol/L [place] AST [Catalytic activity/Vol] 20 U/L <32 [place] Bilirubin Ql (U) 0.55 mg/dL 0.3 - 1.2 mg/dL [place] Bun/Cre Ratio 18 [place] Calcium [Mass/Vol] 9.2 mg/dL 8.6 - 10. 4 mg/dL [place] Chloride [Moles/Vol] 106 mmol/L 98 - 10 7 mmol/L [place] CO2 [Moles/Vol] 24 mmol/L 20 - 31 mmol/L [place] Creatinine [Mass/Vol] 0.74 mg/dL 0.5 - 0.9 mg/dL [place] GFR >60 >60 mL/min [place] GFR Non- >60 >60 mL/min [place] GFR/1.73 sq M predicted among non-blacks MDRD (S/P/Bld) [Vol rate/Area] [place] Comment on above: Average GFR for 20-2 9 years old: 116 mL/min/1.73sq m Chronic Kidney Disease: <60 mL/min/1.73sq m Kidney failure: <15 mL/min/1.73sq m eGFR calculated using average adult body mass. Additional eGFR calculator available at: http://www.[employer]/multiple_crcl_2012.htm GFR/1.73 sq M predicted among non-blacks MDRD (S/P/Bld) [Vol rate/Area] NOT REPORTED [place] Glucose [Mass/Vol] 124 mg/dL High 70 - 99 mg/dL [place] Interpretation and review of laboratory results Abnormal [place] Potassium [Moles/Vol] 4.1 mmol/L 3.7 - 5.3 mmol/L [place] Protein [Mass/Vol] 8.5 g/dL High 6.4 - 8.3 g/dL [place] Sodium [Moles/Vol] 140 mmol/L 135 - 144 mmol/L [place] Urea nitrogen [Mass/Vol] 13 mg/dL 6 - 20 mg/dL [place] Otheron 01-18-2020 Immature granulocytes (Bld) [#/Vol] NOT REPORTED 0 % [place] TSH with Reflexon 01-18-2020 TSH Qn 1.30 m[IU]/L [place] Basic Metabolic Panel w/ Ref stephy to MGon 04-06-2019 Anion gap [Moles/Vol] 13 mmol/L 9 - 17 mmol/L [place] Bun/Cre Ratio 19 [place] Calcium [Mass/Vol] 9.7 mg/dL 8.6 - 10. 4 mg/dL [place] Chloride [Moles/Vol] 102 mmol/L 98 - 10 7 mmol/L [place] CO2 [Moles/Vol] 23 mmol/L 20 - 31 mmol/L [place] Creatinine [Mass/Vol] 0.58 mg/dL 0.5 - 0.9 mg/dL [place] GFR >60 >60 mL/min [place] GFR Non- >60 >60 mL/min [place] GFR/1.73 sq M predicted among non-blacks MDRD (S/P/Bld) [Vol rate/Area] NOT REPORTED [place] GFR/1.73 sq M predicted among non-blacks MDRD (S/P/Bld) [Vol rate/Area] [place] Comment on above: Average GFR for 20-2 9 years old: 116 mL/min/1.73sq m Chronic Kidney Disease: <60 mL/min/1.73sq m Kidney failure: <15 mL/min/1.73sq m eGFR calculated using average adult body mass. Additional eGFR calculator available at: http://www.[employer]multiple_crcl_2012.htm Glucose [Mass/Vol] 115 mg/dL High 70 - 99 mg/dL [place] Potassium [Moles/Vol] 3.9 mmol/L 3.7 - 5.3 mmol/L [place] Sodium [Moles/Vol] 138 mmol/L 135 - 144 mmol/L [place] Urea nitrogen [Mass/Vol] 11 mg/dL 6 - 20 mg/dL [place] CBC Auto Differentialon 12-0 Basophils (Bld) [#/Vol] 0.00 10*3/uL [place] Basophils/100 WBC (Bld) 0 % 0 - 2 % [place] Differential Type YES [place] Eosinophils (Bld) [#/Vol] 0.10 10*3/uL [place] Eosinophils/100 WBC (Bld) 2 % 0 - 5 % [place] Erythrocyte distribution width (RBC) [Ratio] 12.7 % 12.1 - 15.2 % [place] Hematocrit (Bld) [Volume fraction] 46.4 % High 36 - 46 % [place] Hemoglobin (Bld) [Mass/Vol] 15.5 g/dL 12 - 16 g/dL [place] Lymphocytes (Bld) [#/Vol] 1.30 10*3/uL [place] Lymphocytes/100 WBC (Bld) 20 % 15 - 40 % [place] MCH (RBC) [Entitic mass] 29.7 pg 26 - 34 pg [place] MCHC (RBC) [Mass/Vol] 33.4 g/dL 31 - 3 7 g/dL [place] MCV (RBC) [Entitic vol] 89.0 fL 80 - 100 fL [place] Monocytes (Bld) [#/Vol] 0.50 10*3/uL [place] Monocytes/100 WBC (Bld) 8 % 4 - 8 % [place] Platelet mean volume (Bld) [Entitic vol] NOT REPORTED 6 - 12 fL [place] Platelets (Bld) [#/Vol] NOT REPORTED [place] Platelets (Bld) [#/Vol] 194 10*3/uL [place] RBC (Bld) [#/Vol] 5.22 10*6/uL High 4 - 5.2 m/uL [place] RBC morphology finding Nom (Bld) NOT REPORTED [place] Segmented neutrophils/100 WBC (Bld) 70 % 47 - 75 % [place] Segs Absolute 4.40 [place] WBC (Bld) [#/Vol] 6.4 10*3/uL [place] WBC (Bld) [#/Vol] NOT REPORTED per 100 WBC [place] WBC Morphology NOT REPORTED [place] D-Dimer, Quantitativeon 12- D-Dimer, Quant 0.21 [place], [place] Comment on above: Elevated levels of [...] HCG Qualitative, Serumon hCG Qual Negative NEGATIVE [place] Comment on above: Specimens with hCG l evels near the threshold of the test (25 mIU/mL) may give a negative or indeterminate result. In such cases, another test should be performed with a new specimen in 48-72 hours. If early is suspected clinically in this setting, correlation with quantitative serum b-hCG level is suggested. [employer] has confirmed the use of plasma for this test. This has not been cleared or approved by the U.S. Food and Drug Administration. The FDA has determined that such clearance is not necessary. Otheron 04-06-2019 Immature granulocytes (Bld) [#/Vol] NOT REPORTED [facility] ID Interpretation and review of laboratory results Abnormal [facility] [place] [facility]R CHEST STANDARD (2 VW)on 1 06-07-2018 Negative chest. [facility] ID EXAM: XR CHEST (2 VW ) HISTORY: Reason for exam:->SOB COMPARISON: Chest 12/05/2018. TECHNIQUE: 2 views chest FINDINGS: Heart size normal. Lungs clear. Bony thorax and upper abdomen normal. [facility] [place] [facility] Willian, Mhpn Incoming Radiant Results From [email or web address] - 04/06/2019 2:50 PM EST EXAM: XR CHEST (2 VW) HISTORY: Reason for exam:->SOB COMPARISON: Chest 12/05/2018. TECHNIQUE: 2 views chest FINDINGS: Heart size normal. Lungs clear. Bony thorax and upper abdomen normal. IMPRESSION: Negative chest. [facility] [place] [facility] Comprehensive Metabolic Pane nick 11-12-2017 Alanine aminotransferase (ALT) 22 U/L Normal 14-65 [facility] Comment on above: This test result [...] ####Unless otherwise noted, all testing performed by [facility] [place], [place] [phone]: [id number] Director: Diego [place] M.D. Albumin 3.7 g/dL Normal 3.2-5.2 [facility] Comment on above: Performed By: #### C MET ####Unless otherwise noted, all testing performed by [address] [phone]: [id number] Director: [place] M.D. Alkaline phosphatase (ALP) 99 U/L Normal 40-140 [facility] Comment on above: Performed By: #### C MET ####Unless otherwise noted, all testing performed by [address] [phone]: [id number] Director: Diego [place] M.D. Aspartate aminotransferase (AST) 11 U/L Normal 0-45 [facility] Comment on above: This test result [...] ####Unless otherwise noted, all testing performed by [address] [phone]: [id number] Director: Diego [place] M.D. Bilirubin (total) 0.2 mg/dL Low 0.3-1.2 [facility] Comment on above: Performed By: #### C MET ####Unless otherwise noted, all testing performed by [address] [phone]: [id number] Director: Diego [place] M.D. Calcium 9.0 mg/dL Normal 8.4-10.2 [facility] Comment on above: Performed By: #### C MET ####Unless otherwise noted, all testing performed by [place] [phone]: [id number] Director: Diego [place] M.D. Chloride 109 mmol/L High 98-108 [facility] Comment on above: Performed By: #### C MET ####Unless otherwise noted, all testing performed by [address]CLIA: [id number] Director: Diego [place] M.D. CO2 28 mmol/L Normal 21-32 [facility] Comment on above: Performed By: #### C MET ####Unless otherwise noted, all testing performed by [place] [phone]: [id number] Director: Diego [place] M.D. Creatinine 0.94 mg/dL Normal 0.40-1.10 [facility] Comment on above: Performed By: #### C MET ####Unless otherwise noted, all testing performed by [place] [phone]: [id number] Director: Diego [place] M.D. eGFR (black) mL/min/{1.73_m2} Normal [facility] Comment on above: GFR Calc Result Comment: Afri can [place] GFR Calc Performed By: #### C MET ####Unless otherwise noted, all testing performed by [address] [phone]: [id number] Director: Diego [place] M.D. eGFR (non-black) mL/min/{1.73_m2} Normal [facility] Comment on above: Non- GFR Calc [...] ####Unless otherwise noted, all testing performed by [address] [phone]: [id number] Director: Diego [place] M.D. Glucose mass conc 102 mg/dL High 70-99 [facility] Comment on above: This test result [...] ####Unless otherwise noted, all testing performed by [address] [phone]: [id number] Director: Diego [place] M.D. Interpretation and review of laboratory results Abnormal Invalid Interpretation Code [facility] Potassium molar conc 4.0 mmol/L Normal 3.5-5.1 [facility] Comment on above: Performed By: #### C MET ####Unless otherwise noted, all testing performed by [address], [place] [phone]: [id number] Director: Diego [place] M.D. Protein 7.0 g/dL Normal 6.0-8.0 [facility] Comment on above: Performed By: #### C MET ####Unless otherwise noted, all testing performed by [address] [phone]: [id number] Director: Diego [place] M.D. Sodium 143 mmol/L Normal 135-145 [facility] Comment on above: Performed By: #### C MET ####Unless otherwise noted, all testing performed by [address] [phone]: [id number] Director: Diego [place] M.D. Urea nitrogen 17 mg/dL Normal 8-25 [facility] Comment on above: Performed By: #### C MET ####Unless otherwise noted, all testing performed by [address] [phone]: [id number] Director: Diego [place] M.D. Preg test, Urine Qualon 11-02 Preg Test, Urine Qual Negative Invalid Interpretation Code Negative [facility] Comment on above: Rapid test procedura [...] ( test) Ql (U) Negative Normal Negative [facility] Comment on above: Result Comment: Rapi [...] ####Unless otherwise noted, all testing performed by [address]CLIA: [id number] Director: Diego [place] M.D. Urinalysison 11-12-2017 Bilirubin, Urine Negative Normal NEG;NEGATIV E [facility] Comment on above: Performed By: #### P REGUR, UA ####Unless otherwise noted, all testing performed by [place] [phone]: [id number] Director: Diego [place] M.D. Blood, Urine Negative Normal NEG;NEGATIV E [facility] Comment on above: Performed By: #### P REGUR, UA ####Unless otherwise noted, all testing performed by [place] [phone]: [id number] Director: Diego [place] M.D. Character Clear Normal [facility] Comment on above: Performed By: #### P REGUR, UA ####Unless otherwise noted, all testing performed by [address] [phone]: [id number] Director: Diego [place] M.D. Nitrite, Urine Negative Normal NEG;NEGATIV E [facility] Comment on above: Performed By: #### P REGUR, UA ####Unless otherwise noted, all testing performed by [address], [place] [phone]: [id number] Director: Diego [place] M.D. Protein, Urine 30 mg/dL High < 30 [facility] Comment on above: Performed By: #### P REGUR, UA ####Unless otherwise noted, all testing performed by [address] [phone]: [id number] Director: Diego [place] M.D. RBCs, Urine < 1 Invalid Interpretation Code 0 - 5 /HPF [facility] Specific Calvin 1.024 1 Invalid Interpretation Code 1.003 - 1.029 [facility] Squamous Epithelial 4 /HPF Invalid Interpretation Code 0 - 40 [facility] Urine, color Yellow Normal [facility] Comment on above: Performed By: #### P REGUR, UA ####Unless otherwise noted, all testing performed by [address] [phone]: [id number] Director: Diego [place] M.D. Urine, glucose presence Negative Normal NEG; NEGATIV E [facility] Comment on above: Performed By: #### P REGUR, UA ####Unless otherwise noted, all testing performed by [address] [phone]: [id number] Director: Diego [place] M.D. Urine, ketones presence Negative Invalid Interpretation Code NEG;NEGATIV E mg/dL [facility] Urine, leukocyte esterase presence Negative Invalid Interpretation Code Negative [facility] Urine, pH 5.0 [pH] Normal 4.5-8.0 [facility] Comment on above: Performed By: #### P REGUR, UA ####Unless otherwise noted, all testing performed by [address] [place] [phone]: [id number] Director: Diego [place] M.D. Urobilinogen, Urine < 2.0 Normal <2 [facility] Comment on above: Performed By: #### P REGUR, UA ####Unless otherwise noted, all testing performed by [address] [phone]: [id number] Director: Diego [place] M.D. WBCs, Urine 1 /HPF Invalid Interpretation Code 0 - 5 [facility] Urinalysis, Routineon 2017 Ketone,Urine Negative Normal NEG;NEGATIV E [facility] Comment on above: Performed By: #### P REGUR, UA ####Unless otherwise noted, all testing performed by [address] [phone]: [id number] Director: Diego [place] M.D. Leuk.Esterase,Urine Negative Normal Negative [facility] Comment on above: Performed By: #### P REGUR, UA ####Unless otherwise noted, all testing performed by [address] [phone]: [id number] Director: Diego [place] M.D. Specific Calvin,Urine 1.024 Normal 1.003-1.029 [facility] Comment on above: Performed By: #### P REGUR, UA ####Unless otherwise noted, all testing performed by [address] [phone]: [id number] Director: Diego [place] M.D. Squamous Epithelial 4 /HPF Normal 0-40 [facility] Comment on above: Performed By: #### P REGUR, UA ####Unless otherwise noted, all testing performed by [address] [phone]: [id number] Director: Diego [place] M.D. Urine, erythrocytes in sediment by area /[HPF] Normal 0-5 [facility] Comment on above: Performed By: #### P REGUR, UA ####Unless otherwise noted, all testing performed by [address] [phone]: [id number] Director: Diego [place] M.D. WBC,Urine 1 /HPF Normal 0-5 [facility] Comment on above: Performed By: #### P REGUR, UA ####Unless otherwise noted, all testing performed by [address] [phone]: [id number] Director: Diego [place] M.D. CBC and Differentialon 11-11 Basophils Auto #/vol (Bld) 0.0 K/mcL Invalid Interpretation Code 0 - 0.2 [facility] Basophils/100 WBC Auto (Bld) 0.3 % Normal [facility] Comment on above: Performed By: #### C BCDIF, EXCEP, LIPASE ####Unless otherwise noted, all testing performed by [address] [phone]: [id number] Director: Diego [place] M.D. Eosinophils 0.1 K/mcL Invalid Interpretation Code 0 - 0.5 [facility] Eosinophils/100 leukocytes 0.6 % Normal [facility] Comment on above: Performed By: #### C BCDIF, EXCEP, LIPASE ####Unless otherwise noted, all testing performed by [address] [phone]: [id number] Director: Diego [place] M.D. Erythrocyte distribution width Auto Ratio (RBC) 13.2 % Normal 10.0-14.4 [facility] Comment on above: Performed By: #### C BCDIF, EXCEP, LIPASE ####Unless otherwise noted, all testing performed by [address] [phone]: [id number] Director: Diego [place] M.D. Erythrocytes (RBC) 5.13 M/mcL High 3.7 - 5.0 [facility] Hematocrit (HCT) 47.0 % High 34.4-44.8 [facility] Comment on above: Performed By: #### C BCDIF, EXCEP, LIPASE ####Unless otherwise noted, all testing performed by [address] [phone]: [id number] Director: Diego [place] M.D. Hemoglobin mass conc (Bld) 15.3 g/dL Normal 11.6-15.4 [facility] Comment on above: Performed By: #### C BCDIF, EXCEP, LIPASE ####Unless otherwise noted, all testing performed by [address] [phone]: [id number] Director: Diego [place] M.D. Lymphocytes 1.5 K/mcL Invalid Interpretation Code 1.0 - 3.7 [facility] Lymphocytes/100 leukocytes 12.1 % Normal [facility] Comment on above: Performed By: #### C BCDIF, EXCEP, LIPASE ####Unless otherwise noted, all testing performed by [address] [phone]: [id number] Director: Diego [place] M.D. MCH 29.8 pg Normal 27.9-33.9 [facility] Comment on above: Performed By: #### C BCDIF, EXCEP, LIPASE ####Unless otherwise noted, all testing performed by [address] [phone]: [id number] Director: Diego [place] M.D. MCHC mass conc (RBC) 32.6 g/dL Low 33.1-35.1 [facility] Comment on above: Performed By: #### C BCDIF, EXCEP, LIPASE ####Unless otherwise noted, all testing performed by [address] [phone]: [id number] Director: Diego [place] M.D. MCV 91.5 fL Normal 82.6-98.9 [facility] Comment on above: Performed By: #### C BCDIF, EXCEP, LIPASE ####Unless otherwise noted, all testing performed by [address] [phone]: [id number] Director: Diego [place] M.D. Monocytes 0.6 K/mcL Invalid Interpretation Code 0.1 - 0.6 [facility] Monocytes/100 leukocytes 5.1 % Normal [facility] Comment on above: Performed By: #### C BCDIF, EXCEP, LIPASE ####Unless otherwise noted, all testing performed by [address] [phone]: [id number] Director: Diego [place] M.D. Neutrophils 10.0 K/mcL High 1.2 - 6.9 [facility] Platelet mean volume (PMV) 11.1 fL High 7.0-10.6 [facility] Comment on above: Performed By: #### C BCDIF, EXCEP, LIPASE ####Unless otherwise noted, all testing performed by [address] [phone]: [id number] Director: Diego Hamilton M.D. Platelets 235 K/mcL Invalid Interpretation Code 162 - 402 [facility] Segmented Neut 81.9 % Invalid Interpretation Code [facility] WBC (Leukocytes) 12.2 K/mcL High 3.4 - 10.6 [facility] CBC with Diffon 11-11-2017 Basophils Auto #/vol (Bld) 0.0 K/mcL Normal 0-0.2 [facility] Comment on above: Performed By: #### C BCDIF, EXCEP, LIPASE ####Unless otherwise noted, all testing performed by [address] [id number]: [id number] Director: Diego Hamilton M.D. Eosinophils 0.1 K/mcL Normal 0-0.5 [facility] Comment on above: Performed By: #### C BCDIF, EXCEP, LIPASE ####Unless otherwise noted, all testing performed by [address] [phone]: [id number] Director: Diego Hamilton M.D. Erythrocytes (RBC) 5.13 M/mcL High 3.7-5.0 [facility] Comment on above: Performed By: #### C BCDIF, EXCEP, LIPASE ####Unless otherwise noted, all testing performed by [address] [id number]: [id number] Director: Diego Hamilton M.D. Lymphocytes 1.5 K/mcL Normal 1.0-3.7 [facility] Comment on above: Performed By: #### C BCDIF, EXCEP, LIPASE ####Unless otherwise noted, all testing performed by [address] [phone]: [id number] Director: Diego Hamilton M.D. Monocytes 0.6 K/mcL Normal 0.1-0.6 [facility] Comment on above: Performed By: #### C BCDIF, EXCEP, LIPASE ####Unless otherwise noted, all testing performed by [address] [phone]: [id number] Director: Diego Hamilton M.D. Neutrophils 10.0 K/mcL High 1.2-6.9 [facility] Comment on above: Performed By: #### C BCDIF, EXCEP, LIPASE ####Unless otherwise noted, all testing performed by [address] [phone]: [id number] Director: Diego Hamilton M.D. Platelets 235 K/mcL Normal 162-402 [facility] Comment on above: Performed By: #### C BCDIF, EXCEP, LIPASE ####Unless otherwise noted, all testing performed by [address] [phone]: [id number] Director: Diego Hamilton M.D. Segmented Neut % 81.9 % Normal [facility] Comment on above: Performed By: #### C BCDIF, EXCEP, LIPASE ####Unless otherwise noted, all testing performed by [address] [phone]: [id number] Director: Diego Hamilton M.D. WBC (Leukocytes) 12.2 K/mcL High 3.4-10.6 [facility] Comment on above: Performed By: #### C BCDIF, EXCEP, LIPASE ####Unless otherwise noted, all testing performed by [address] [phone]: [id number] Director: Diego Hamilton M.D. Exception Noticeon 8 Exception Notice Complete Metabolic Panel cancelled due to hemolysis. Will be redrawn. Normal [facility] Comment on above: Performed By: #### C BCDIF, EXCEP, LIPASE ####Unless otherwise noted, all testing performed by [address] [phone]: [id number] Director: Diego Hamilton M.D. Lipaseon 11-11-2017 Lipase 52 U/L Low 73-393 [facility] Comment on above: Performed By: #### C BCDIF, EXCEP, LIPASE ####Unless otherwise noted, all testing performed by [address] [phone]: [id number] Director: Diego Hamilton M.D. US TRANSVAGINAL WITH [...] amount of free fluid, likely physiologic. Normal [facility] Social History Date Type Detail Facility Start: 07-29-2023 Sex Assigned At Female F [facility] Start: 07-29-2023 Tobacco Comment Uses eÓtica devices. [employer] Start: [facility] Start: 06-16-2022 Tobacco smoking status ILIS Ex-smoker [employer] Start: 06-16-2022 Alcohol Comment occ. Some tonight [facility]I [facility] [employer] Work Phone: Start: 11-29-2021 Tobacco Comment 5cigs/day 2 [employer] Phone: Start: 11-19-2021 End: 06-16-2022 Exposure to SARS-CoV-2 (event) Not sure [facility] Start: 08-08-2020 Tobacco smoking status Heavy tobacco smoker (finding) [facility] Start: 01-04-2020 End: 06-16-2022 Alcohol intake Current drinker of alcohol (finding) [facility] Start: 11-01-2019 End: 07-29-2023 Tobacco use and exposure Never used [facility] Start: 04-06-2019 End: 07-29-2023 Tobacco smoking status ILIS Current every day smoker [facility] Start: 04-06-2019 End: 07-29-2023 Cigarettes smoked current (pack per day) - Reported [facility] Start: 04-06-2019 End: 07-29-2023 Alcohol intake Ex-drinker (finding) [facility] Start: 04-06-2019 End: 12-19-2022 History SDOH Alcohol Frequency 1 [facility] [place] [place] Start: 12-05-2018 Alcohol Comment occassional [facility] Start: 1995 Sex Assigned At Not [facility] file [facility] Tobacco smoking status NHIS Unknown if [facility] History of tobacco use Cigarette Smoker [facility], [place] Exposure to SARS-CoV-2 (event) Unable to assess [facility] [place] Exposure to SARS-CoV-2 (event) Yes [facility], [place] History of tobacco use Current smoker [facility] Work Phone: Tobacco smoking status NHIS Tobacco smoking consumption unknown [facility] Within the past 12 months we worried whether our food would run out before we got money to buy more. Never True [facility] NEGATED: Highlighted rowStart: NINF History of tobacco use Passive smoker [facility] Vital Signs Date Time Vital Sign Value Performing Clinician Faci lity 07-29-2023 13:08-0400 Body height 162.6 cm Dana [facility]cdonough MD [facility] 07-29-2023 13:08-0400 Body mass index (BMI) [Ratio] 38.21 kg/m2 Dana Mcdonough MD Work [facility] 07-29-2023 13:08-0400 Body weight 100.97 kg Dana Mcdonough MD Work [facility] 07-29-2023 13:08-0400 Diastolic blood pressure 64 mm[Hg] Dana Mcdonough MD Work Phone[facility] 07-29-2023 13:08-0400 Heart rate 88 /min Dana Mcdonough MD Work [facility] 07-29-2023 13:08-0400 Systolic blood pressure 105 mm[Hg] Dana Mcdonough MD Work Phone: [facility] 12-19-2022 10:04-0400 Body mass index (BMI) [Ratio] 39.51 kg/m2 Matthew Tafoya MD Work Phone: [facility] [employer] 12-19-2022 10:04-0400 Body temperature 98.29 [degF] Matthew Tafoya MD Work Phone: [facility] [employer] 12-19-2022 10:04-0400 Body weight 104.42 kg Matthew Tafoya MD Work Phone: [facility] 12-19-2022 10:04-0400 Diastolic blood pressure 82 mm[Hg] Matthew Tafoya MD Work Phone: [facility] 12-19-2022 10:04-0400 Heart rate 106 /min Matthew Tafoya MD Work Phone: [facility] 12-19-2022 10:04-0400 Respiratory rate 16 /min Matthew Tafoya MD Work Phone: [facility] 12-19-2022 10:04-0400 SaO2% (BldA) [Mass fraction] 95 % Matthew Tafoya MD Work Phone: [facility] 12-19-2022 10:04-0400 Systolic blood pressure 119 mm[Hg] Matthew Tafoya MD Work Phone: [facility] 12-06-2022 13:24-0400 Body temperature 98.42 [degF] Graham Choe [facility] 12-06-2022 13:24-0400 Diastolic blood pressure 75 mm[Hg] Graham Choe [facility] 12-06-2022 13:24-0400 Heart rate 95 /min Graham Choe [facility] 12-06-2022 13:24-0400 Mean blood pressure 95 mm[Hg] Graham Choe [facility] 12-06-2022 13:24-0400 Respiratory rate 18 /min Graham Choe [facility] 12-06-2022 13:24-0400 SaO2% (BldA) [Mass fraction] 96 % Graham Choe [facility] 12-06-2022 13:24-0400 Systolic blood pressure 136 mm[Hg] Graham Choe [facility] 06-16-2022 01:37-0500 Body height 162.6 cm Hoang Santos MD Work Phone: [facility] [employer] 06-16-2022 01:37-0500 Body mass index (BMI) [Ratio] 39.94 kg/m2 Hoang Santos MD Work Phone: [facility] [employer] 06-16-2022 01:37-0500 Body temperature 98.01 [degF] Hoang Santos MD Work Phone: [facility] [employer] 06-16-2022 01:37-0500 Body weight 105.55 kg Hoang Santos MD Work Phone: [employer] 06-16-2022 01:37-0500 Diastolic blood pressure 77 mm[Hg] Hoang Santos MD Work Phone: [facility] [employer] 06-16-2022 01:37-0500 Heart rate 88 /min Hoang Santos MD Work Phone: [facility] [employer] 06-16-2022 01:37-0500 Respiratory rate 16 /min Hoang Santos MD Work Phone: [facility] [employer] 06-16-2022 01:37-0500 SaO2% (BldA) [Mass fraction] 98 % Hoang Santos MD Work Phone: [facility] [employer] 06-16-2022 01:37-0500 Systolic blood pressure 122 mm[Hg] Hoang Santos MD Work Phone: [facility] [employer] 03-13-2022 09:30-0500 Body height 162.6 cm Bea Jacobs MD Work Phone: [facility] [employer] 03-13-2022 09:30-0500 Body mass index (BMI) [Ratio] 37.81 kg/m2 Bea Jacobs MD Work Phone: [facility] [employer] 03-13-2022 09:30-0500 Body temperature 98.2 [degF] Bea Jacobs MD Work Phone: [facility] [employer] 03-13-2022 09:30-0500 Body weight 99.93 kg Bea Jacobs MD Work Phone: [facility] [employer] 03-13-2022 09:30-0500 Diastolic blood pressure 72 mm[Hg] Bea Jacobs MD Work Phone: [facility] [employer] 03-13-2022 09:30-0500 Heart rate 76 /min Bea Jacobs MD Work Phone: [facility] [employer] 03-13-2022 09:30-0500 Respiratory rate 18 /min Bea Jacobs MD Work Phone: [facility] [employer] 03-13-2022 09:30-0500 SaO2% (BldA) [Mass fraction] 96 % Bea Jacobs MD Work Phone: [facility] [employer] 03-13-2022 09:30-0500 Systolic blood pressure 116 mm[Hg] Bea Jacobs MD Work Phone: [facility] [employer] 11-29-2021 14:37-0400 Diastolic blood pressure 69 mm[Hg] Bea Jacobs MD Work Phone: [facility] [employer] 11-29-2021 14:37-0400 Heart rate 80 /min Bea Jacobs MD Work Phone: [facility] [employer] 11-29-2021 14:37-0400 SaO2% (BldA) [Mass fraction] 96 % Bea Jacobs MD Work Phone: [employer] 11-29-2021 14:37-0400 Systolic blood pressure 112 mm[Hg] Bea Jacobs MD Work Phone: [facility] 11-29-2021 14:36-0400 Body height 162.6 cm Bea Jacobs MD Work Phone: [facility] 11-29-2021 14:36-0400 Body mass index (BMI) [Ratio] 36.39 kg/m2 Bea Jacobs MD Work Phone: [facility] 11-29-2021 14:36-0400 Body temperature 99.5 [degF] Bea Jacobs MD Work Phone: [facility] 11-29-2021 14:36-0400 Body weight 96.16 kg Bea Jacobs MD Work Phone: [facility] 11-29-2021 14:36-0400 Respiratory rate 18 /min Bea Jacobs MD Work Phone: [facility] 05-22-2021 14:29-0500 Body mass index (BMI) [Ratio] 32.89 kg/m2 Hoang Santos MD Work Phone: [employer] 05-22-2021 14:29-0500 Body temperature 99.5 [degF] Hoang Santos MD Work Phone: [employer] 05-22-2021 14:29-0500 Body weight 92.44 kg Hoang Santos MD Work Phone: [employer] 05-22-2021 14:29-0500 Diastolic blood pressure 61 mm[Hg] Hoang Santos MD Work Phone: [employer] 05-22-2021 14:29-0500 Heart rate 97 /min Hoang Santos MD Work Phone: [employer] 05-22-2021 14:29-0500 Respiratory rate 18 /min Hoang Santos MD Work Phone: [employer] 05-22-2021 14:29-0500 SaO2% (BldA) [Mass fraction] 96 % Hoagn Santos MD Work Phone: [employer] 05-22-2021 14:29-0500 Systolic blood pressure 117 mm[Hg] Hoang Santos MD Work Phone: [employer] 04-12-2021 18:20-0500 Body temperature 98.6 [degF] Dana Redman MD Work Phone: [employer] 04-12-2021 18:20-0500 Diastolic blood pressure 75 mm[Hg] Dana Redman MD Work Phone: [employer] 04-12-2021 18:20-0500 Heart rate 92 /min Dana Redman MD Work Phone: [employer] 04-12-2021 18:20-0500 Respiratory rate 20 /min Dana Redman MD Work Phone: [employer] 04-12-2021 18:20-0500 SaO2% (BldA) [Mass fraction] 96 % Dana Redman MD Work Phone: [employer] 04-12-2021 18:20-0500 Systolic blood pressure 118 mm[Hg] Dana Redman MD Work Phone: [employer] 04-12-2021 18:18-0500 Body height 167.6 cm Dana Redman MD Work Phone: [employer] 04-12-2021 18:18-0500 Body mass index (BMI) [Ratio] 32.28 kg/m2 Dana Redman MD Work Phone: [employer] 04-12-2021 18:18-0500 Body weight 90.72 kg Dana Redman MD Work Phone: [employer] 02-10-2021 17:39-0400 Body temperature 99.1 [degF] Braydon May MD Work Phone: [employer] Work Phone: 02-10-2021 17:27-0400 Body height 162.6 cm Braydon May MD Work Phone: [employer] Work Phone: 02-10-2021 17:27-0400 Body mass index (BMI) [Ratio] 37.75 kg/m2 Braydon May MD Work Phone: [employer] Work Phone: 02-10-2021 17:27-0400 Body weight 99.75 kg Braydon May MD Work Phone: [employer] Work Phone: 02-10-2021 17:27-0400 Diastolic blood pressure 84 mm[Hg] Braydon May MD Work Phone: [employer] Work Phone: 02-10-2021 17:27-0400 Heart rate 83 /min Braydon May MD Work Phone: [employer] Work Phone: 02-10-2021 17:27-0400 Respiratory rate 20 /min Braydon May MD Work Phone: [employer] Work Phone: 02-10-2021 17:27-0400 SaO2% (BldA) [Mass fraction] 95 % Braydon May MD Work Phone: [employer] Work Phone: 02-10-2021 17:27-0400 Systolic blood pressure 128 mm[Hg] Braydon May MD Work Phone: [employer] Work Phone: 12-10-2020 19:54-0400 Diastolic blood pressure 63 mm[Hg] Bea Jacobs MD Work Phone: [employer] Work Phone: 12-10-2020 19:54-0400 SaO2% (BldA) [Mass fraction] 97 % Bea Jacobs MD Work [facility]: [facility] Work Phone: 12-10-2020 19:54-0400 Systolic blood pressure 111 mm[Hg] Bea Jacobs MD Work Phone: [facility] Work Phone: 08-01-2020 18:44-0400 BMI (Body Mass Index) 33.47 kg/m2 Noelneetu Reynaldo [facility] [place] [employer] Work Phone: 08-01-2020 18:44-0400 Body Temperature 97.9 [degF] Bea Jacobs [facility] [place] [employer] Work Phone: 08-01-2020 18:44-0400 Body weight 88.45 [facility] [place] [employer] Work Phone: 08-01-2020 18:44-0400 BP Diastolic 72 mm[Hg] Bea Jacobs [facility] [place] [employer] Work Phone: 08-01-2020 18:44-0400 BP Systolic 127 mm[Hg] [facility] [employer] Work Phone: 08-01-2020 18:44-0400 Height 162.6 cm [facility] [employer] Work Phone: 08-01-2020 18:44-0400 Pulse (Heart Rate) 93 /min [facility] Reynaldo [facility] Work Phone: 08-01-2020 18:44-0400 Pulse Oximetry 99 % [facility] Jacobs [facility] [place] [employer] Work Phone: 08-01-2020 18:44-0400 Respiratory Rate 16 /min [facility] [employer] Work Phone: 01-04-2020 12:33-0400 BMI (Body Mass Index) 32.96 kg/m2 [facility] 01-04-2020 12:33-0400 Body Temperature 98.1 [degF] Juanito [facility] 01-04-2020 12:33-0400 Body weight 87.09 kg [facility] 01-04-2020 12:33-0400 BP Diastolic 63 mm[Hg] [facility] 01-04-2020 12:33-0400 BP Systolic 115 mm[Hg] [facility]ian [facility] 01-04-2020 12:33-0400 Height 162.6 cm [facility] 01-04-2020 12:33-0400 Pulse (Heart Rate) 83 /min [facility] 01-04-2020 12:33-0400 Pulse Oximetry 97 % [facility] 12-23-2019 21:12-0400 BMI (Body Mass Index) 32.96 kg/m2 [facility] 12-23-2019 21:12-0400 Body Temperature 98.71 [degF] [facility] 12-23-2019 21:12-0400 Body weight 87.09 kg [facility] [place] 12-23-2019 21:12-0400 BP Diastolic 69 mm[Hg] [facility] [place] 12-23-2019 21:12-0400 BP Systolic 129 mm[Hg] [facility] [place] 12-23-2019 21:12-0400 Pulse (Heart Rate) 102 /min [facility] 12-23-2019 21:12-0400 Pulse Oximetry 100 % [facility] [place] 12-23-2019 21:12-0400 Respiratory Rate 18 /min [facility] 10-22-2019 12:21-0400 BMI (Body Mass Index) 33.3 kg/m2 Arin RosettaViVex [address] [facility] 10-22-2019 12:21-0400 Body Temperature 98.8 [degF] Arin RosettaVi[facility] [place] [facility] [place] 10-22-2019 12:21-0400 Body weight 88 kg Arin SargentViVex Biomedical [facility] , [place] 10-22-2019 12:21-0400 BP Diastolic 67 mm[Hg] Arin Strus [facility] , [place] 10-22-2019 12:21-0400 BP Systolic 113 mm[Hg] [facility] [place] [facility] [place] 10-22-2019 12:21-0400 Height 162.6 cm Arin Carter [facility] , [place] 10-22-2019 12:21-0400 Pulse (Heart Rate) 77 /min [facility] [place] 10-22-2019 12:21-0400 Pulse Oximetry 98 % [facility] [place] [facility] [place] 10-22-2019 12:21-0400 Respiratory Rate 18 /min [facility] Hospital[facility] 04-06-2019 13:49-0500 Pulse Oximetry 98 % [facility] 04-06-2019 13:39-0500 BP Diastolic 92 mm[Hg] [facility] 04-06-2019 13:39-0500 BP Systolic 119 mm[Hg] [facility] 04-06-2019 13:37-0500 Body Temperature 97.59 [degF] [facility] 04-06-2019 13:37-0500 Body weight 84.82 kg [facility] 04-06-2019 13:37-0500 Pulse (Heart Rate) 77 /min [facility] Jacobs [facility] [place] 04-06-2019 13:37-0500 Respiratory Rate 16 /min [place], [place] Functional Status Date Assessment Result Facility 12-06-2022 Functional Status N/A [facility] Clinical Notes 12-10-2020 to 07-29-2023 [...] females Have you been seen here at [facility] in a previous ?no Recent ER visits or hospitalizations? No Bring blood sugar log or meter with you today? (Please bring them with you for every visit at [facility]) n/a Traveled outside the country in [...] was 45 minutes. 24 minutes were direct [id number] for counseling and coordination of care during visits itself. An additional 8 minutes or for same day preparation to see the patient. Another 13 minutes were needed to prepare visit report or otherwise complete encounter Thank you for sending this patient. Dana Mcdonough MD Maternal Medicine Professor, [facility] [phone] Office [phone] Personal Cell Phone Office Note: Type 2 [...] with breakfast. metroNIDAZOLE (FLAGYL) 500 mg tablet [id number] acid ( 19) 29 mg iron- 1 [...] become candidates for treatment. ACOG and the [place] psychiatric association advocate treatment in patients with [...] growth disorder. Smoking cessation recommended. Both the [place] and the [facility] have excellent free stop smoking programs that are accessible through [facility] web sites. If desired by patient, [...] to the patient's reported primary care provider. Structural Steel Worker gave T1dm & T2dm dm handout, twin hand out and, genetic handout, and, activity in handout to patient. Patient understood that its good reading material if she has questions. documented in this encounter [facility] 07-24-2023 Miscellaneous Notes Called to schedule Diabetic Ed, patient declined to schedule.she states is seeing another Dr for this and that Dr Asher is aware. documented in this encounter [facility] 07-24-2023 Telephone encounter Note Called to schedule Diabetic Ed, patient declined to schedule.she states is seeing another Dr for this and that Dr Asher is aware. [facility] 07-15-2023 Miscellaneous Notes Summary: MFM Missed Diabetes Education Appointment Called. No answer. Message left regarding missing Diabetes Education appointment; noted was also scheduled to see Gaby Cheung (Nutrition Education). Requested to call [phone] Option #3 to reschedule. documented in this encounter [facility] 07-15-2023 Telephone encounter Note Summary: MFM Missed Diabetes Education Appointment Called. No answer. Message left regarding missing Diabetes Education appointment; noted was also scheduled to see Gaby Cheung (Nutrition Education). Requested to call [phone] Option #3 to reschedule. [facility] 12-06-2022 Hospital Discharg e instructions Patient Education [...] services (911 in the [place] Call the [facility] and human services helpline (211 in the [place] Call or text a suicide hotline to speak with a trained counselor. The following suicide hotlines are available in the [place]: ?9-602-972-TALK ( or 488 in the [place] ?4-437-DQWRMVO ( ). ?Text 492524. This is the Crisis Text Line in the [place] ? . This is a hotline for Taiwanese speakers. ? . This is a hotline for TTY users. ?1-518-5-U-YASHIRA ( ). This is a hotline for lesbian, delgadillo, bisexual, transgender, or questioning youth. ?For a list of hotlines in [place], visit suicide.org/hotlines/internation al/mhnkqm-wnikuxe-zclptqhq.html Contact a crisis center or a local [...] to anyone or being with other people. ?Lncl-ci-jiyf conversation is best to help them understand [...] physical and a mental health checkup. Take lddv-znv-mmhbxrr and prescription medicines only as told by [...] Suicide Prevention Lifeline: www.suicidepreventionlifeline.or g Hopeline: www.hopeline.com [place] [employer] for Suicide Prevention: www.afsp.org The Yashira Project (for lesbian, delgadillo, bisexual, transgender, or questioning youth): www.thetrevorproject.org National [place] of Mental Health: www.nimh.nih.gov/health/topics/s uicide-prevention Suicide Prevention Resources: afsp.org/pizabol-jgwdhqtjly-thqe urces Contact a health care provider if: [...] provider. Document Revised: 11/15/2021 Document Reviewed: 08/30/2021 [place] [facility] Patient Education 2022 [employer]. Follow Up Care 12/06/2022 13:21:39 With:[facility] Address:Unknown When:12/09/2022 16:28:40 Comments:Follow safety plan. Return to the emergency department with any worsening symptoms. With:GAYE JOSUE Address: [address] [place] [address] Business (1) When:12/09/2022 16:28:22 Comments:Call the office [...] Repeat liver function testing in 1 month. [facility] 12-06-2022 Evaluation + Plan note Extrac rayray from: Title:ED Note Author:Graham Choe DO Date: Situational stress (F43.9: R eaction to severe stress, unspecified) Orders: Automated Diff CBC w/ Auto Diff Comprehensive Metabolic Panel Drug Screen Urine ECG 12 Lead Adult eGFR Ethanol Level U Beta Hcg Qual [facility]07-28-2022 History of Present illness Narrative* Edelmira Jacobs RN - 11/29/2021 2:40 PM EDT Home med list reviewed with patient. [facility] [employer] Phone: [phone] History of Present illness Narrative* Perla Cunningham RN - 12/10/2020 8:28 PM EDT Discharge instructions given. Pt sent home with 1 zofran. Aware to corn picker prescription. All questions answered. documented in this [facility] Phone: evaluation note* Diagnosis Symptoms of dehydration- Primary Nausea vomiting and diarrhea Nausea with vomiting documented in this encounter [employer] Phone: evaluation note* Diagnosis Threatened miscarriage in early - Primary Threatened , unspecified as to episode of care documented in this encounter [employer] Phone: evaluation note* Diagnosis Depression during in first trimester- Primary Dehydration documented in this encounter [employer] Phone: evaluation note* Diagnosis COVID-19 virus infection- Primary Second trimester documented in this encounter [employer] Phone: evaluation note* Diagnosis Hordeolum externum of right lower eyelid- Primary Hordeolum externum documented in this encounter [employer] Phone: evaluation note* Diagnosis Acute midline low back pain without sciatica- Primary documented in this encounter [employer] Phone: evaluation note* Diagnosis Nausea and vomiting, unspecified vomiting type- Primary Intractable headache, unspecified chronicity pattern, unspecified headache type documented in this encounter [employer] Phone: evaluation note* Diagnosis Acute cystitis without hematuria- Primary Acute cystitis Vaginal yeast infection Candidiasis of vulva and vagina documented in this encounter [employer]* Diagnosis Type 2 diabetes mellitus affecting in second trimester, antepartum- Primary Twin , dichorionic/diamniotic, second trimester Bipolar disease during in second trimester ([facility]) [facility] Diagnosis Type 2 diabetes mellitus affecting in second trimester, antepartum- Primary Twin , dichorionic/diamniotic, second trimester Obesity affecting in second trimester, unspecified obesity type Bipolar disease during in second trimester ([facility]) Post traumatic stress disorder Posttraumatic stress disorder Tobacco smoking affecting in second trimester [facility] Narrative No data available for this section [facility]* Attachments The following attachments cannot be sent through Care Everywhere. * Nausea and Vomiting (Haitian) * Diarrhea (Haitian) * Oral Rehydration (Haitian) documented in this [facility]Prom[facility] Phone: Hospital Discharge instructions* Attachments The following attachments cannot be sent through Care Everywhere. * Miscarriage: Threatened (Haitian) [facility] Discharge [facility]* Attachments The following attachments cannot be sent through Care Everywhere. * Dehydration (Haitian) documented in this [facility] CommunicationsProm[facility] Phone: Hospital Discharge instructions* Attachments The following attachments cannot be sent through Care Everywhere. * Coronavirus Disease (COVID-19): General Info (Haitian) documented in this [facility] CommunicationsProm[facility] Phone: Hospital Discharge instructions* Attachments The following attachments cannot be sent through Care Everywhere. * Styes and Chalazia (Haitian) documented in this [facility] CommunicationsFITCH[facility]ITALScraperW[facility] Phone: Hospital Discharge instructions* Attachments The following attachments cannot be sent through Care Everywhere. * Back Pain (Haitian) * Back: Stretches: Exercises (Haitian) documented in this [facility] CommunicationsF[facility]ITALSc[facility] Phone: Hospital Discharge instructions* Attachments The following attachments cannot be sent through Care Everywhere. * Headache (Haitian) documented in this [facility] CommunicationsF[facility]ITALSc[facility] Phone: Hospital Discharge instructions* Attachments The following attachments cannot be sent through Care Everywhere. * Vaginal Yeast Infection (Haitian) documented in this [facility] RiverConjureInstructionsNot on file documented in this encounterProctor HospitalGAIN Fitness SystemInstructionsNot on file documented in this [facility] CenterHubskip SystemInstructionsNot on file documented in this encounterOhioHealth Nelsonville Health CenterHubskip SystemInstructionsNot on file documented in this encounterOhioHealth Nelsonville Health CenterHubskip SystemProgress note No data available for this section [facility] Summary Purpose Family History No Family History [...] FoundDocuments on File Type Date Recorded Patient Newsperson Expl anation Advance Directives and Living Will Power of Claims Support Specialist Documents on File Type Date Recorded Patient Newsperson Expl anation ACP-Advance Directive ACP-Power of Claims Support Specialist Documents on File Type Date Recorded Patient Newsperson Expl anation Advance Directives and Livnabila newell Will 11/20/2019 12:00 AM Latest Code Status [...] be sent through Care Everywhere. * Sinusitis (Haitian) * Sinus Rinse (Haitian) * Bronchitis (Haitian) documented in this encounter* Attachments The following attachments cannot be sent through Care Everywhere. * Smoking: Stopping (Haitian) * Bronchitis (Haitian) * Coronavirus Disease (COVID-19): General Info (Haitian) documented in this encounter* Attachments The following attachments cannot be sent through Care Everywhere. * Bronchitis (Haitian) documented in this encounter Assessments Diagnosis Bronchitis- [...] 01/04/2020 11:34 PM EDT Subjective Patient ID: Rrii Dempsey is a 24 y.o. female. Patient [...] trimester Bipolar disease during in second trimester ([facility]) Procedures [facility] with or without consult Dana Mcdonough MD [address] [place] [address] [facility] Maternal [facility] [address] [place] [address] Referral ID Status Reason Start Date Expiration Date V isits Requested Visits Authorized [id number] Pending Review 07/29/2023 07/28/2024 1 1 Additional Source Comments INFORMATION SOURCE (unrecogn ized section and content) DATE CREATED AUTHOR [facility]29/[facility] DATE CREATED AUTHOR AUTHOR'S ORGANIZ ATION 11/26/2017 [facility] DATE CREATED AUTHOR AUTHOR'S ORGANIZ ATION 01/04/2020 [facility] DATE CREATED AUTHOR AUTHOR'S ORGANIZ ATION 05/26/2020 [facility] DATE CREATED AUTHOR AUTHOR'S ORGANIZ ATION 08/07/2020 [facility] DATE CREATED AUTHOR AUTHOR'S ORGANIZ ATION 04/08/2021 [facility] DATE CREATED AUTHOR AUTHOR'S ORGANIZ ATION 07/14/2021 [facility] DATE CREATED AUTHOR AUTHOR'S ORGANIZ ATION 04/27/2022 [facility] DATE CREATED AUTHOR AUTHOR'S ORGANIZ ATION 12/07/2022 [facility] DATE CREATED AUTHOR AUTHOR'S ORGANIZ ATION 10/10/2023 [facility] DATE CREATED AUTHOR AUTHOR'S ORGANIZ ATION 10/19/2023 [facility] DATE CREATED AUTHOR AUTHOR'S ORGANIZ ATION 10/29/2023 [facility] DATE CREATED AUTHOR AUTHOR'S ORGANIZ ATION 11/24/2023 [facility] DATE CREATED AUTHOR AUTHOR'S ORGANIZ ATION 12/04/2023 [facility] dical Specialists EPIC Reason for Visit [...] Care Teams (unrecognized sec tion and content) Tracing Lathe Set Up Operator Relationship Specialty Start Date End Date Gaye Josue, FRONT COUNTER ATTENDANT - TREE PULLER [address] [place] [address] PCP - General Family Nurse Practitioner 02/10/21 Tracing Lathe Set Up Operator Relationship Specialty Start Date End Date Gaye Josue FRONT COUNTER ATTENDANT - TREE PULLER [address] [place] [address] PCP - General Family Nurse Practitioner 02/10/21 Tracing Lathe Set Up Operator Relationship Specialty Start Date End Date Gaye Josue FRONT COUNTER ATTENDANT - TREE PULLER [address] [place] [address] PCP - General Family Nurse Practitioner 02/10/21 Tracing Lathe Set Up Operator Relationship Specialty Start Date End Date Gaye Josue FRONT COUNTER ATTENDANT - TREE PULLER [address] [place] [address] PCP - General Family Nurse Practitioner 02/10/21 Tracing Lathe Set Up Operator Relationship Specialty Start Date End Date Rashida Johnsonshisaiah Bruce [address] [place] [address] PCP - [facility] 07/29/23 Tracing Lathe Set Up Operator Relationship Specialty Start Date End Date Helderbriansagar Jacobo JanisDO [address] [place] [address] PCP - [facility] 07/29/23 FOR RECORDS PERTAINING TO PATIENTS WHO [...] BE BASED ON THE PRIMARY CLINICAL RECORDS. [facility] [employer] [facility]. provides no warranty or guarantee of the accuracy or completeness of information in this document.
[2023-12-05 14:31] VITALS: BP 128/83; PULSE 76
--- NOTE | 2023-12-05 15:22 | US_ITS ---
[address] [address] Patient Name: RIRI DEMPSEY MRN: [id number] date: 1995 Sex: F Assigned Patient Location: US Current Patient Location: US Accession/Order Number: [id number] Exam Date: 12/05/2023 15:30 Report Date: 12/06/2023 06:17 At the request of: YANI CALIX Procedure: US OB BPP w non-stress EXAMINATION: US OB BPP w non-stress, US OB BPP w non-stress HISTORY:TWIN GESTATION IN THIRD TRIMESTER O30.003 COMPARISON: Ultrasound OB biophysical 11/28/2023 TECHNIQUE: Ultrasound biophysical profile was performed in the radiology department. BREATHING MOVEMENTS: 2/2 GROSS BODY MOVEMENTS: 2/2 TONE: 2/2 QUALITATIVE AMNIOTIC FLUID VOLUME: 2/2 PRESENTATION: Cephalic/Cephalic HEART RATE: 146 bpm/147 bpm AMNIOTIC FLUID VOLUME: Largest pocket: 9.5 x 5.2 cm / 8.9 x 4.4 cm GESTATIONAL AGE: 34 weeks 6 days US/US OB BPP w non-stress IMPRESSION: Total biophysical profile score: 1. Baby 1: 8 2. Baby 2: 8 Electronically authenticated by: MARY CRAFT Date: 12/06/2023 06:17
--- NOTE | 2023-12-05 15:23 | US_ITS ---
[address] [address] Patient Name: RIRI DEMPSEY MRN: [id number] date: 1995 Sex: F Assigned Patient Location: US Current Patient Location: US Accession/Order Number: [id number] Exam Date: 12/05/2023 15:30 Report Date: 12/06/2023 06:17 At the request of: YANI CALIX Procedure: US OB BPP w non-stress EXAMINATION: US OB BPP w non-stress, US OB BPP w non-stress HISTORY:TWIN GESTATION IN THIRD TRIMESTER O30.003 COMPARISON: Ultrasound OB biophysical 11/28/2023 TECHNIQUE: Ultrasound biophysical profile was performed in the radiology department. BREATHING MOVEMENTS: 2/2 GROSS BODY MOVEMENTS: 2/2 TONE: 2/2 QUALITATIVE AMNIOTIC FLUID VOLUME: 2/2 PRESENTATION: Cephalic/Cephalic HEART RATE: 146 bpm/147 bpm AMNIOTIC FLUID VOLUME: Largest pocket: 9.5 x 5.2 cm / 8.9 x 4.4 cm GESTATIONAL AGE: 34 weeks 6 days US/US OB BPP w non-stress IMPRESSION: Total biophysical profile score: 1. Baby 1: 8 2. Baby 2: 8 Electronically authenticated by: MARY CRAFT Date: 12/06/2023 06:17
--- NOTE | 2023-12-05 15:24 | US_ITS ---
[place] [id number] Patient Name: RIRI DEMPSEY MRN: [id number] date: 1995 Sex: F Assigned Patient Location: US Current Patient Location: US Accession/Order Number: [id number] Exam Date: 12/05/2023 15:30 Report Date: 12/06/2023 06:24 At the request of: YANI CALIX Procedure: US OB umbilical artery EXAMINATION: US OB umbilical artery, US OB umbilical artery HISTORY: TWIN GESTATION IN THIRD TRIMESTER O30.003 COMPARISON: No relevant comparison available. TECHNIQUE: Duplex Doppler evaluation of the umbilical arteries. FINDINGS: HEART RATE: 146 bpm / 147 bpm UMBILICAL ARTERIES: 2 / 2 GESTATIONAL AGE: 34 weeks 6 days WAVEFORM: Normal upstroke. No notching. Forward flow in diastole. PEAK SYSTOLIC VELOCITY: 108 cm/s /140 cm/s END DIASTOLIC VELOCITY: 51 cm/s / 63 cm/s SYST/DIAST RATIO (S:D): 2.1 / 2.2 RESISTIVE INDEX: 0.52 / 0.55 US/US OB umbilical artery IMPRESSION: 1. Class 0 = Normal umbilical artery blood velocity for baby 1 and baby 2. Electronically authenticated by: MARY CRAFT Date: 12/06/2023 06:24
--- NOTE | 2023-12-05 15:24 | US_ITS ---
[place] [id number] Patient Name: RIRI DEMPSEY MRN: [id number] date: 1995 Sex: F Assigned Patient Location: Current Patient Location: US Accession/Order Number: [id number] Exam Date: 12/05/2023 15:30 Report Date: 12/06/2023 06:24 At the request of: YANI CALIX Procedure: US OB umbilical artery EXAMINATION: US OB umbilical artery, US OB umbilical artery HISTORY: TWIN GESTATION IN THIRD TRIMESTER O30.003 COMPARISON: No relevant comparison available. TECHNIQUE: Duplex Doppler evaluation of the umbilical arteries. FINDINGS: HEART RATE: 146 bpm / 147 bpm UMBILICAL ARTERIES: 2 / 2 GESTATIONAL AGE: 34 weeks 6 days WAVEFORM: Normal upstroke. No notching. Forward flow in diastole. PEAK SYSTOLIC VELOCITY: 108 cm/s /140 cm/s END DIASTOLIC VELOCITY: 51 cm/s / 63 cm/s SYST/DIAST RATIO (S:D): 2.1 / 2.2 RESISTIVE INDEX: 0.52 / 0.55 US/US OB umbilical artery IMPRESSION: 1. Class 0 = Normal umbilical artery blood velocity for baby 1 and baby 2. Electronically authenticated by: MARY CRAFT Date: 12/06/2023 06:24
--- NOTE | 2023-12-05 16:47 | PC.NURSE ---
both babies with 8/8 on bpp and fluid levels A=9.5 by 5.2 and B=8.9 by 4.4
== END 2023-12-05 16:52 | disposition home or self-care (01) ==
LOC: US 06:58 → FBC 14:19
PROVIDERS: PCP Family Medicine; Visit Provider Obstetrics & Gynecology
DX: O30.003 Twin pregnancy, unspecified number of placenta and unspecified number of amniotic sacs, third trimester (principal); Z3A.34 34 weeks gestation of pregnancy
CPT/HCPCS: 76818; 76820

== ENCOUNTER 2023-12-05 07:44 | Outpatient (RCR) | payer OTHER, SELFPAY ==
[2023-12-04 00:04] VITALS: BP 130/82; PULSE 103; TEMP 36.4; O2SAT 97
[2023-12-05 13:30] VITALS: BP 117/72; PULSE 100; TEMP 36.1; O2SAT 100
[2023-12-05] MEDS: IRON SUCROSE COMPLEX 200 MG in 0.9 % SODIUM CHLORIDE 100 ML 220 MG IV (13:47)
--- NOTE | 2023-12-05 14:02 | PC.NURSE ---
1330: Pt. to [facility] amb. for IV iron infusion. Seated in recliner. VSS. IV initiated, see documentation. Pt. given apple juice. IV venofer initiated at this time.
--- NOTE | 2023-12-05 14:18 | PC.NURSE ---
1415: Julisa completed without s&s of adverse reaction. IV d/c'd, pressure to site. D/c'd amb to home.
== END 2024-01-03 23:59 | disposition home or self-care (01) ==
LOC: INF 07:44
PROVIDERS: PCP Family Medicine; Visit Provider Obstetrics & Gynecology
DX: O30.003 Twin pregnancy, unspecified number of placenta and unspecified number of amniotic sacs, third trimester (principal); Z3A.34 34 weeks gestation of pregnancy; O99.013 Anemia complicating pregnancy, third trimester
CPT/HCPCS: 76818; 76820; 96365; J1756

== ENCOUNTER 2023-12-08 12:09 | Inpatient (IN) | payer OTHER, SELFPAY ==
[2023-12-08] VITALS (38 sets, daily range): BP systolic 103–140; BP diastolic 59–89; PULSE 66–114; TEMP 35.4–36.9
--- NOTE | 2023-12-08 12:35 | US_ITS ---
[address] [address] Patient Name: RIRI DEMPSEY MRN: [id number] date: 1995 Sex: F Assigned Patient Location: [facility] Current Patient Location: [facility] Accession/Order Number: [id number] Exam Date: 12/08/2023 12:38 Report Date: 12/08/2023 13:06 At the request of: YANI CALIX Procedure: US OB limited EXAM: US OB limited HISTORY: labor COMPARISON: Ultrasound OB biophysical 12/05/2023 TECHNIQUE: Transabdominal ultrasound. FINDINGS: Present: Cephalic/Cephalic Heart rate: 153 bpm / 151 bpm GA: 35 weeks 2 days JOSI: 01/10/2024 US/US OB limited IMPRESSION: 1. Live twin intrauterine . Both are in cephalic presentation. Electronically authenticated by: MARY CRAFT Date: 12/08/2023 13:06
[2023-12-08] MEDS: 0.9 % SODIUM CHLORIDE 1,000 ML 125 ML IV (13:07)
[2023-12-08] MEDS: AMPICILLIN SODIUM 2,000 MG in 0.9 % SODIUM CHLORIDE 100 ML 200 MG IV (13:08)
[2023-12-08 13:10] LABS: Hematocrit 33.8 % (36.0-48.0); Hemoglobin 10.6 g/dL (12.0-16.0); Mean Corpuscular HGB Conc 31.4 g/dL (29.9-35.2); Mean Corpuscular Hemoglobin 26.9 pg (26.7-34.0); Mean Corpuscular Volume 85.8 fL (81.0-99.0); Mean Platelet Volume 13.5 fL (9.5-13.5); Platelet Count 134 10^3/uL (150-450); Red Blood Count 3.94 10^6/uL (4.20-5.40); Red Cell Distribution Width 16.8 % (11.0-15.0); White Blood Count 7.4 10^3/uL (4.0-11.0)
[2023-12-08 13:27] LABS: Amphetamine Screen Urine NEGATIVE (NEGATIVE); Barbiturates Screen Urine NEGATIVE (NEGATIVE); Benzodiazepines Screen Urine POSITIVE (NEGATIVE); Buprenorphine Screen Urine NEGATIVE (NEGATIVE); Cannabinoid Screen Urine POSITIVE (NEGATIVE); Cocaine Screen Urine NEGATIVE (NEGATIVE); Methadone Screen Urine NEGATIVE (NEGATIVE); Methamphetamines Screen Urine NEGATIVE (NEGATIVE); Opiate Screen Urine NEGATIVE (NEGATIVE); Oxycodone Screen Urine NEGATIVE (NEGATIVE); Phencyclidine Screen Urine NEGATIVE (NEGATIVE); Tricyclic Antidepressant Urine NEGATIVE (NEGATIVE)
[2023-12-08] MEDS: ROPIVACAINE HCL/PF 400 MG/200 ML PREMIX 10 MG EPIDURAL (14:28)
[2023-12-08] MEDS: OXYTOCIN/0.9 % SODIUM CHLORIDE 20 UNITS/1,000 ML PLAST..BAG 125 UNIT IV (15:44)
--- NOTE | 2023-12-08 15:51 | US_ITS ---
[address] [address] Patient Name: RIRI DEMPSEY MRN: [id number] date: 1995 Sex: F Assigned Patient Location: [facility] Current Patient Location: [facility] Accession/Order Number: [id number] Exam Date: 12/08/2023 15:58 Report Date: 12/08/2023 19:19 At the request of: YANI CALIX Procedure: US pelvis Examination:US pelvis INDICATION:retained products of conception COMPARISON:There is a previous OB Limited dated 12/08/2023 available for correlation. TECHNIQUE:Transabdominal imaging of the uterus was performed. FINDINGS:There is heterogeneity of the myometrium corresponding to the uterus. There is fluid and debris within the canal in the lower uterine segment which may represent blood product or retained products of conception. This is avascular. Neither ovary is visualized. US/US pelvis IMPRESSION: Fluid and debris in the canal in the lower uterine segment possibly representing blood product or retained products of conception. Electronically authenticated by: ABBY KUNZ Date: 12/08/2023 19:19
--- NOTE | 2023-12-08 16:01 | PM.OBPRCVD ---
Procedure Intrapartal events: None Induction method: none Delivery augmentation: rupture of membranes Delivery monitor: external FHT and external uterine Route of delivery: Episiotomy Description: none L&D Laceration Description: periurethral - 1st degree and perineal - 2nd degree Delivery repair: Vicryl Estimated blood loss (mL): 480 Anesthesia type: Epidural Disposition: floor Infant Delivery date: 12/08/23 Gender: female presentation: vertex Placental delivery description: Spontaneous cord description: 3 Vessels
[2023-12-08] MEDS: IBUPROFEN 600 MG TABLET PO (19:00)
[2023-12-08] MEDS: GLYCERIN/WITCH HAZEL PADS 1 PAD TOPICAL (19:00)
[2023-12-08] MEDS: BENZOCAINE/MENTHOL 85 GRAM SPRAY BOTTLE 1 APPLIC TOPICAL (19:00)
[2023-12-08] MEDS: CLONAZEPAM 0.5 MG TABLET 1 MG PO (22:23)
[2023-12-08] MEDS: DIPHENHYDRAMINE HCL 50 MG/ML VIAL 25 MG IV (22:24)
--- NOTE | 2023-12-08 22:51 | PC.NURSE ---
This RN agrees with Viky Causey RN charting from [phone].
[2023-12-09] VITALS (8 sets, daily range): BP systolic 125–145; BP diastolic 65–89; PULSE 70–83; TEMP 36.4–36.9
[2023-12-09] MEDS: IBUPROFEN 600 MG TABLET PO ×3 (04:10→21:34)
[2023-12-09 06:46] LABS: Basophils Percent Auto 0.5 % (0.2-2.0); Eosinophils Absolute Auto 0.1 10^3/uL (0.0-0.7); Eosinophils Percent Auto 0.9 % (0.9-7.0); Hematocrit 31.6 % (36.0-48.0); Hemoglobin 9.7 g/dL (12.0-16.0); Immature Granulocytes Abs Auto 0.05 10^3/uL (0.00-0.03); Immature Granulocytes Pct Auto 0.8 % (0.0-0.5); Lymphocytes Absolute Auto 1.3 10^3/uL (1.2-3.8); Mean Corpuscular HGB Conc 30.7 g/dL (29.9-35.2); Mean Corpuscular Hemoglobin 26.5 pg (26.7-34.0); Mean Corpuscular Volume 86.3 fL (81.0-99.0); Mean Platelet Volume 13.2 fL (9.5-13.5); Monocytes Absolute Auto 0.4 10^3/uL (0.3-0.8); Monocytes Percent Auto 5.9 % (1.7-12.0); Neutrophils Absolute Auto 4.7 10^3/uL (1.4-6.5); Neutrophils Percent Auto 71.9 % (43.0-75.0); Platelet Count 115 10^3/uL (150-450); Red Blood Count 3.66 10^6/uL (4.20-5.40); Red Cell Distribution Width 16.9 % (11.0-15.0); White Blood Count 6.5 10^3/uL (4.0-11.0)
--- NOTE | 2023-12-09 07:33 | W.PC.ACHO ---
Registration Status: ADM IN Primary Language: Nepalese Preferred Language: Nepalese Report received from Viky Causey RN and Jerica RAUSCH at 0715. Active Medications Generic Name Dose Route Start Last Admin Trade Name Zaheer PRN Reason Stop Dose Admin Acetaminophen 650 mg 12/08/23 16:03 Acetaminophen 325 Mg Tablet PO Q6H PRN Mild Pain Al Hydroxide/Mg Hydroxide 2,400 mg 12/08/23 16:03 Magnesium Hydroxide 2,400 Mg/10 Ml Oral.Susp PO Q6H PRN Dyspepsia Benzocaine/Menthol 1 applic 12/08/23 16:03 12/08/23 19:00 Benzocaine/Menthol 85 Gram [place] Bottle TOPICAL 1 applic Q2H PRN Administration Pain Carboprost Tromethamine 250 mcg 12/08/23 12:37 Carboprost Tromethamine 250 Mcg/Ml 1 Ml Vial IM 12/10/23 12:37 Q15M PRN Bleeding Clonazepam 1 mg 12/08/23 21:00 12/08/23 22:23 Clonazepam 0.5 Mg Tablet PO 1 mg Q12H ALYSON Administration Diphenhydramine HCl 25 mg 12/08/23 13:12 Diphenhydramine Hcl 50 Mg/Ml Vial IV 12/09/23 13:12 Q6H PRN Itching Diphtheria/Pertussis/Tetanus Vacc 0.5 ml 12/10/23 09:00 Adacel Diph,Pertuss(Acell),Tet Vac/Pf 0.5 Ml Adult Syringe IM 12/10/23 09:01 .ONCE ONE Docusate Sodium 100 mg 12/09/23 09:00 Docusate Sodium 100 Mg Capsule PO BID ALYSON Ephedrine Sulfate 5 mg 12/08/23 13:12 Ephedrine Sulfate 50 Mg/Ml Vial IV 12/09/23 13:12 Q5M PRN Blood Pressure - Low Tranexamic Acid 1,000 mg/ 110 mls @ 440 mls/hr 12/08/23 12:37 Sodium Chloride IV 12/10/23 12:37 ONCE PRN Uterine Bleeding Sodium Chloride 1,000 mls @ 125 mls/hr 12/08/23 13:00 12/08/23 15:44 Sodium Chloride 0.9% 1,000 Ml IV Infused .Q8H PRN Infusion Labor Induction Oxytocin/Sodium Chloride 10 units in 500 mls @ 6 mls/hr 12/08/23 12:45 Pitocin 10 Unit/500 Ml-Ns IV TITR ALYSON Protocol 2 MILLIUNIT/MIN Ropivacaine/Sodium Chloride 400 mg in 200 mls @ 6 mls/hr 12/08/23 13:15 12/08/23 20:29 Naropin 0.2% 400 Mg/200 Ml Bag EPIDURAL Infused Q24H ALYSON Infusion Ibuprofen 600 mg 12/08/23 16:03 12/09/23 04:10 Ibuprofen 600 Mg Tablet PO 600 mg Q6H PRN Administration Moderate Pain Lidocaine 1 ml 12/08/23 12:37 Lidocaine Hcl 1% 200 Mg/20 Ml Mdv INJ 12/10/23 12:39 ONCE PRN Pain Lidocaine 5 ml 12/08/23 13:12 Lidocaine Hcl 2% Pf 100 Mg/5 Ml Vial INJ 12/09/23 13:12 Q1H PRN Pain Measles/Mumps/Rubella Vaccine Live 0.5 ml 12/10/23 09:00 Measles,Mumps,Rubella Vacc/Pf 0.5 Ml Vial SQ 12/10/23 09:01 .ONCE ONE Methylergonovine Maleate 0.2 mg 12/08/23 12:37 Methylergonovine Maleate 0.2 Mg/Ml Ampule IM 12/10/23 12:37 ONCE PRN Uterine Contractility/Contract Methylergonovine Maleate 0.2 mg 12/08/23 12:37 Methylergonovine Maleate 0.2 Mg Tablet PO 12/10/23 12:37 Q4H PRN Uterine Contractility/Contract Misoprostol 600 mcg 12/08/23 12:37 Misoprostol 100 Mcg Tablet PO 12/10/23 12:37 ONCE PRN Uterine Bleeding Misoprostol 800 mcg 12/08/23 12:37 Misoprostol 100 Mcg Tablet SL 12/10/23 12:37 ONCE PRN Uterine Bleeding Misoprostol 1,000 mcg 12/08/23 12:37 Misoprostol 100 Mcg Tablet MO 12/10/23 12:37 ONCE PRN Uterine Bleeding Nalbuphine HCl 10 mg 12/08/23 12:37 Nalbuphine Hcl 10 Mg/Ml Ampule IV Q3H PRN Pain Ondansetron HCl 4 mg 12/08/23 12:37 Ondansetron Pf 4 Mg/2 Ml Vial IV Q6H PRN Nausea And Vomiting Ondansetron HCl 4 mg 12/08/23 12:37 Ondansetron 4 Mg Rapdis Tablet SL Q6H PRN Nausea And Vomiting Oxytocin 10 unit 12/08/23 12:37 Oxytocin 10 Unit/Ml Vial IM 12/10/23 12:37 ONCE PRN Bleeding Senna 17.2 mg 12/08/23 20:00 Sennosides 8.6 Mg Tablet PO QHS PRN Constipation Sertraline HCl 200 mg 12/08/23 21:00 12/08/23 22:26 Sertraline Hcl 100 Mg Tablet PO Not Given QD ALYSON Simethicone 80 mg 12/08/23 16:03 Simethicone 80 Mg Tab.Chew PO QID PRN Abdominal Distention Temazepam 15 mg 12/08/23 16:03 Temazepam 15 Mg Capsule PO QHS PRN Sleep Witch Ariana/Glycerin 1 pad 12/08/23 16:03 12/08/23 19:00 Glycerin/Witch Ariana Pads TOPICAL 1 pad Q2H PRN Administration Pain Diet Category Date Time Status Regular Consistency Diet Diet 12/08/23 16:03 Active IV Insertion/Site Date of IV Line Insertion [18g 12/08/23 right Antecubital] Date of IV Line Insertion [18g 12/08/23 left Forearm] IV Insertion Time [18g right 13:00 Antecubital] IV Insertion Time [18g left 13:00 Forearm] Respiratory Oxygen Delivery Method Room Air Oxygen Delivery Method Room Air Oxygen Delivery Method Room Air Oxygen Delivery Method Room Air Cardiology Heart Sounds Strong,Regular Bowels Bowel Pattern No Bowel Movement Renal Bladder Pattern Continent
--- NOTE | 2023-12-09 07:56 | PC.NURSE ---
All charting reviewed from . RN agrees with Tavia Causey RN
--- NOTE | 2023-12-09 09:13 | PM.OBPN ---
OB - PN: Subj Subjective Patient comments: no complaints [place] status: doing well feeding status: exclusively bottle feeding Exam Constitutional Vital Signs, click to edit/add: Last Vital Signs Temp 98.4 F 12/09/23 04:00 Pulse 70 12/09/23 07:55 Resp 12 12/09/23 04:00 BP 130/89 12/09/23 07:55 O2 Del Method Room Air 12/09/23 04:00 Documenting provider has reviewed patient's vital signs: yes Common normals: no apparent distress General appearance: cooperative Orientation/consciousness: Yes awake, Yes oriented to person, Yes oriented to place and Yes oriented to time HENMT Common normals: normocephalic Eye Common normals: EOMs intact bilaterally Neck & C-Spine Common normals: full ROM Lymph Lymphatic: no lymphadenopathy noted Chest Common normals: inspection of chest normal Respiratory Common normals: normal respiratory effort Effort & inspection: able to speak in complete sentences Cardio Common normals: regular rate and regular rhythm Rate: regular rate Rhythm: regular rhythm GI Common normals: Normal to inspection, nondistended, normoactive bowel sounds present Inspection: normal to inspection Auscultation: normoactive bowel sounds Palpation: soft Common normals: no CVA tenderness Back & Pelvis Common normals: no CVA tenderness Thoracic spine/upper back: normal to inspection Lumbar spine/lower back: normal to inspection Extremity Common normals: normal to inspection Neuro Common normals: oriented x3 Sensorium/orientation: awake, alert, oriented to person, oriented to place and oriented to time Psych Common normals: mental status grossly normal Attitude: calm Results Labs Labs: Short CBC 12/08/23 12/09/23 Range/Units 12:50 06:17 WBC 7.4 6.5 (4.0-11.0) 10^3/uL Hgb 10.6 L 9.7 L (12.0-16.0) g/dL Hct 33.8 L 31.6 L (36.0-48.0) % Plt Count 134 L 115 L (150-450) 10^3/uL OB - PN: A/P Plan - Vaginal Delivery day: 1 Plan: routine care Time Spent with Patient Time: Total time spent is greater than 50% in coordination of care (as documented) at patient's floor/unit and/or counseling patient: Total time spent with greater than 50% in coordination of care (as documented) at patient's floor/unit and/or counseling patient: less than 15 minutes
[2023-12-09] MEDS: CLONAZEPAM 0.5 MG TABLET 1 MG PO ×2 (10:09→21:35)
[2023-12-09] MEDS: DOCUSATE SODIUM 100 MG CAPSULE PO ×2 (10:11→21:35)
[2023-12-09] MEDS: SERTRALINE HCL 100 MG TABLET 200 MG PO (10:12)
--- NOTE | 2023-12-09 15:25 | PC.NURSE ---
Raised, red bumps noted on pt abdomen. Pt states abdomen is itchy . Pt states she received medication overnight for itching and was unable to get relief. RN reports assessment to CNM at bedside at this time.
--- NOTE | 2023-12-09 15:34 | PC.NURSE ---
Raised bumps and redness noted on pt abdomen. No increase in amount of bumps or edema at this time.
[2023-12-09] MEDS: HYDROCORTISONE 1% CREAM 28 GRAM TUBE 1 APPLIC TOPICAL ×2 (18:55→21:35)
--- NOTE | 2023-12-09 20:17 | W.PC.ACHO ---
Registration Status: ADM IN Primary Language: [place] Preferred Language: [place] report given 1914. Active Medications Generic Name Dose Route Start Last Admin Trade Name Freq PRN Reason Stop Dose Admin Acetaminophen 650 mg 12/08/23 16:03 Acetaminophen 325 Mg Tablet PO Q6H PRN Mild Pain Al Hydroxide/Mg Hydroxide 2,400 mg 12/08/23 16:03 Magnesium Hydroxide 2,400 Mg/10 Ml Oral.Susp PO Q6H PRN Dyspepsia Benzocaine/Menthol 1 applic 12/08/23 16:03 12/08/23 19:00 Benzocaine/Menthol 85 Gram Cook Bottle TOPICAL 1 applic Q2H PRN Administration Pain Clonazepam 1 mg 12/08/23 21:00 12/09/23 10:09 Clonazepam 0.5 Mg Tablet PO 1 mg Q12H ALYSON Administration Diphtheria/Pertussis/Tetanus Vacc 0.5 ml 12/10/23 09:00 Adacel Diph,Pertuss(Acell),Tet Vac/Pf 0.5 Ml Adult Syringe IM 12/10/23 09:01 .ONCE ONE Docusate Sodium 100 mg 12/09/23 09:00 12/09/23 10:11 Docusate Sodium 100 Mg Capsule PO 100 mg BID ALYSON Administration Hydrocortisone 1 applic 12/09/23 15:00 12/09/23 18:55 Hydrocortisone 1% Cream 28 Gram Tube TOPICAL 1 applic TID ALYSON Administration Sodium Chloride 1,000 mls @ 125 mls/hr 12/08/23 13:00 12/08/23 15:44 Sodium Chloride 0.9% 1,000 Ml IV Infused .Q8H PRN Infusion Labor Induction Ibuprofen 600 mg 12/08/23 16:03 12/09/23 10:16 Ibuprofen 600 Mg Tablet PO 600 mg Q6H PRN Administration Moderate Pain Measles/Mumps/Rubella Vaccine Live 0.5 ml 12/10/23 09:00 Measles,Mumps,Rubella Vacc/Pf 0.5 Ml Vial SQ 12/10/23 09:01 .ONCE ONE Ondansetron HCl 4 mg 12/08/23 12:37 Ondansetron Pf 4 Mg/2 Ml Vial IV Q6H PRN Nausea And Vomiting Ondansetron HCl 4 mg 12/08/23 12:37 Ondansetron 4 Mg Rapdis Tablet SL Q6H PRN Nausea And Vomiting Senna 17.2 mg 12/08/23 20:00 Sennosides 8.6 Mg Tablet PO QHS PRN Constipation Sertraline HCl 200 mg 12/08/23 21:00 12/09/23 10:12 Sertraline Hcl 100 Mg Tablet PO 200 mg QD ALYSON Administration Simethicone 80 mg 12/08/23 16:03 Simethicone 80 Mg Tab.Chew PO QID PRN Abdominal Distention Temazepam 15 mg 12/08/23 16:03 Temazepam 15 Mg Capsule PO QHS PRN Sleep Witch Ariana/Glycerin 1 pad 12/08/23 16:03 12/08/23 19:00 Glycerin/Witch Ariana Pads TOPICAL 1 pad Q2H PRN Administration Pain Respiratory Oxygen Delivery Method Room Air Oxygen Delivery Method Room Air Oxygen Delivery Method Room Air Oxygen Delivery Method Room Air Oxygen Delivery Method Room Air Oxygen Delivery Method Room Air Bowels Bowel Pattern No Bowel Movement Renal Bladder Pattern Continent Bladder Pattern Continent
[2023-12-09] MEDS: DIPHENHYDRAMINE HCL 50 MG/ML VIAL 25 MG IV (23:13)
[2023-12-10 01:25] VITALS: BP 137/65; PULSE 81; TEMP 36.8
[2023-12-10] MEDS: HYDROCORTISONE 1% CREAM 28 GRAM TUBE 1 APPLIC TOPICAL ×3 (06:02→21:11)
--- NOTE | 2023-12-10 07:47 | PM.OBPN ---
OB - PN: Subj Subjective Patient comments: no complaints and pain well controlled [place] status: doing well Exam Constitutional Vital Signs, click to edit/add: Last Vital Signs Temp 98.2 F 12/10/23 01:25 Pulse 81 12/10/23 01:25 Resp 14 12/10/23 01:25 BP 137/65 12/10/23 01:25 O2 Del Method Room Air 12/10/23 01:25 Documenting provider has reviewed patient's vital signs: yes Common normals: no apparent distress Respiratory Common normals: normal respiratory effort and clear to auscultation bilaterally Cardio Common normals: regular rate and regular rhythm GI Common normals: Normal to inspection, nondistended, normoactive bowel sounds present Extremity Common normals: no clubbing, cyanosis or edema and no calf tenderness OB - PN: A/P Plan - Vaginal Delivery day: 2 Plan: routine care, discharge home and follow up 6 weeks Time Spent with Patient Time: Total time spent is greater than 50% in coordination of care (as documented) at patient's floor/unit and/or counseling patient: Total time spent with greater than 50% in coordination of care (as documented) at patient's floor/unit and/or counseling patient: less than 15 minutes
[2023-12-10 08:51] VITALS: BP 123/79; PULSE 67
[2023-12-10] MEDS: DOCUSATE SODIUM 100 MG CAPSULE PO ×2 (09:05→21:11)
[2023-12-10] MEDS: CLONAZEPAM 0.5 MG TABLET 1 MG PO ×2 (09:06→21:11)
[2023-12-10] MEDS: IBUPROFEN 600 MG TABLET PO ×3 (09:06→22:53)
[2023-12-10 09:46] VITALS: TEMP 36.5
--- NOTE | 2023-12-10 13:34 | SWNOTE1 ---
SW was consulted due to positive Marijuana drug screen and Benzos on admission. SW spoke with nursing prior to assessing pt and she is appropriate with babies. She is prescribed medication for anxiety. SW met with pt to complete assessment. Pt had family in room as well and was alright with speaking to SW while family in room. Pt lives at home by herself with her 2 year old daughter. Her mother lives across the yard and she has other family that is good support as well. Father of baby is involved, but does not live in the home. He does stop over and help care for babies. Pt does have everything she needs for twin girls at home. She has a double bassinet and the car seats just arrived today. Pt does have [facility] medicaid and will contact [facility] for assistance once she gets home. Pt does admit to occassional THC use smoking mainly, but sometimes gummies. She voiced she has her medical marijuana card, and provided to SW. She does smoke it due to PTSD. If continues she will not do it around children. Stores in a safe place. She is prescribed medication for her anxiety, zoloft and clonazepam from Dr. Johnson in [place]. Pt resides in [place]. 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 SW advised pt that SW is mandated to call and make a report to CPS. Pt voiced understanding, no further questions at this time. Pt appropriate with babies and providing care to babies while SW in room. Report called to [facility] CPS. HIPAA form filled out and sent to
[2023-12-10 16:15] VITALS: BP 133/82; PULSE 67; TEMP 36.8
[2023-12-10 16:22] VITALS: BP 133/82; PULSE 67
[2023-12-10] MEDS: BENZOCAINE/MENTHOL 85 GRAM SPRAY BOTTLE 1 APPLIC TOPICAL (21:12)
[2023-12-10] MEDS: GLYCERIN/WITCH HAZEL PADS 1 PAD TOPICAL (21:12)
[2023-12-10 21:21] VITALS: BP 135/90; PULSE 85; TEMP 36.8
[2023-12-10] MEDS: ONDANSETRON 4 MG RAPDIS TABLET SL (22:53)
[2023-12-12 11:09] LABS: Benzodiazepines Negative (Cutoff=300); Cannabinoid Positive (.); Carboxy THC Conf, MS, UR 63 ng/mL (Cutoff=10)
== END 2023-12-10 23:30 | disposition home or self-care (01) | DRG 560 ==
PROVIDERS: Admitting Provider Obstetrics & Gynecology; PCP Family Medicine; Visit Provider Obstetrics & Gynecology
DX: O30.003 Twin pregnancy, unspecified number of placenta and unspecified number of amniotic sacs, third trimester (principal); O99.324 Drug use complicating childbirth; F12.90 Cannabis use, unspecified, uncomplicated; Z3A.37 37 weeks gestation of pregnancy; Z37.2 Twins, both liveborn; O24.12 Pre-existing type 2 diabetes mellitus, in childbirth; O70.1 Second degree perineal laceration during delivery; O99.344 Other mental disorders complicating childbirth; F99 Mental disorder, not otherwise specified; Z79.4 Long term (current) use of insulin; Z79.84 Long term (current) use of oral hypoglycemic drugs; F31.9 Bipolar disorder, unspecified; Z87.440 Personal history of urinary (tract) infections; F41.9 Anxiety disorder, unspecified
CPT/HCPCS: 36415; 51702; 59050; 59410; 76815; 76818; 76820; 76856; 80307; 80346; 80349; 85025; 85027; 86850; 86900; 86901; 96365; 96366; 96368; 96375; 96376; J0290; J1200; J1756; J2795; Q0162